=== PATIENT | male | born 1975 | race Caucasian/White ===

== ENCOUNTER 2017-05-12 21:43 | Emergency (ER) | payer MEDICARE, SELFPAY ==
[2017-05-12 21:44] VITALS: BP 155/71; PULSE 91; RESP 18; TEMP 36.6; O2SAT 96; BMI 40.3
[2017-05-12] MEDS: 0.9% Normal Saline 1,000 ML 1000 ML IV (23:04)
[2017-05-12] MEDS: Ondansetron 4 MG/2 ML Vial IV (23:04)
[2017-05-12] MEDS: Acetaminophen 325 MG Tablet 650 MG PO (23:27)
--- NOTE | 2017-05-12 23:41 | ED.VISSUMM ---
- ER Visit Summary Date of Service: 05/12/17 Chief Complaint: Abdominal pain with nausea, vomiting diarrhea that started yesterday History of Present Illness: The patient is a 41 M who presents with abdominal pain with nausea, vomiting diarrhea. He reports 4 episodes of vomiting since last evening and 5 loose watery stools. He denies blood or mucus in the stool. He denies hematemesis, melena hematochezia. He states every family members ill with viral-like symptoms. Denies fever or chills. He denies any ocular, visual auditory symptoms. He denies rhinorrhea, postnasal drainage, earache or sore throat. He denies chest pain or palpitations. Denies shortness of breath, dyspnea on exertion, orthopnea or PND. He does complain of abdominal pain with vomiting diarrhea. He is presently pain-free. He lies any skin lesions. He denies myalgias arthralgias. Physical Examination: Vital signs remarkable elevated blood pressure 155/71. Head is atraumatic normocephalic. Pupils are equal round reactive. Extraocular muscles are intact. TMs are pearly white with landmarks noted. Nares patent with no drainage. Posterior pharynx without erythema or exudate. Uvula is midline. Tongue and buccal mucosa are dry. There is no dysphonia or dysphasia. Trachea is midline. There is no stridor with auscultation of the neck. Heart is regular without murmur, gallop or rub. S1 and S2 are normal. Lungs are clear to auscultation with good movement of air bilaterally. Abdomen is prominent with out tenderness. Bowel sounds are present. There is no pain, guarding or perineal findings. There is no CVA tenderness noted. There are no skin lesions and specifically lower extremity. He is alert oriented with a nonfocal neurologic exam. Test Results: None were obtained or indicated Emergency Department Course and Treatment: He was established received 1 L of normal saline wide open and was treated with 4 mg of Zofran. I was informed by nurse that he complains of headache. He was given 650 mg of Tylenol p.o. He will be observed and he has no further vomiting or diarrhea be discharged to home Treatment Plan: Patient passed p.o. challenge will be discharged to home. He was given a work excuse to indicate that he arrived at 2100 on May 12 and discharged at 0100 on 2019. Disposition: Discharged to home Impression: 1. Abdominal pain with nausea, vomiting diarrhea 2. Mild dehydration This note was generated with [employer] dictation software. It may contain incorrect words, spelling, and punctuation that were not noted in review of the chart prior to signing ED Disposition - Plan for ED Patient: Disposition: Home or Assisted Living Chief Complaint: General Illness Instructions: ED Vomiting Diarrhea Nonspecific Ad Referrals: Care Physician,No Primary [Primary Care Provider] - Yovana Choudhury DO [STAFF PHYSICIAN] - 3-5 Days if not improving
[2017-05-12 23:43] VITALS: RESP 16
[2017-05-13] MEDS: Ondansetron ODT 4 MG Tablet PO (00:40)
[2017-05-13 00:43] VITALS: BP 143/48; PULSE 69; RESP 16; O2SAT 96
== END 2017-05-13 00:43 | disposition home or self-care (01) ==
PROVIDERS: Emergency Provider Emergency Medicine
DX: R10.9 Unspecified abdominal pain (principal); R11.2 Nausea with vomiting, unspecified; R19.7 Diarrhea, unspecified; E86.0 Dehydration; R53.1 Weakness; F32.9 Major depressive disorder, single episode, unspecified
CPT/HCPCS: 96361; 96374; 99284; J7030; A4216; J2405

== ENCOUNTER 2017-05-26 09:39 | Emergency (ER) | payer MEDICARE, MEDICAID, SELFPAY ==
[2017-05-26 09:40] VITALS: BP 162/108; PULSE 80; RESP 18; TEMP 36.1; O2SAT 98; BMI 37.7
--- NOTE | 2017-05-26 09:59 | ED.DCSUM_ITS ---
- ER Visit Summary Date of Service: 05/26/17 Chief Complaint: Dental pain History of Present Illness: The patient is a 42 M presenting with dental pain that started last night. He complains of pain in his left lower teeth with swelling. He denies fever. He states he does not currently have a dentist. Denies other complaints. Physical Examination: Vitals are stable. Patient is afebrile. Alert no acute distress. HEENT exam left lower molar tenderness with diffuse decay. No surrounding fluctuance. No sublingual edema. Neck is supple. Lungs are clear and equal bilaterally. Heart is regular rate and rhythm. Extremities are unremarkable. Skin is warm and dry. Remainder of exam is unremarkable. Emergency Department Course and Treatment: Patient is given penicillin and Naprosyn. Advised to follow-up with a dentist. Advised to return to ED for worsening complaints. Disposition: Discharge home Impression: Odontalgia This note was generated with [employer] dictation software. It may contain incorrect words, spelling, and punctuation that were not noted in review of the chart prior to signing ED Disposition - Plan for ED Patient: Chief Complaint: Dental Referrals: Care Physician,No Primary [Primary Care Provider] -
--- NOTE | 2017-05-26 09:59 | ED.DEP ---
ED Disposition - Plan for ED Patient: Chief Complaint: Dental Instructions: ED Tooth Pain Prescriptions: Naproxen [Naprosyn] 500 mg PO BID PRN #20 tablet Penicillin V Potassium 500 mg PO 4X/DAY #40 tablet Referrals: Care Physician,No Primary [Primary Care Provider] - Leslie Chavez [NON-STAFF] -
[2017-05-26] MEDS: Naproxen 500 MG Tablet PO (10:03)
[2017-05-26] MEDS: Penicillin Vk 250 MG Tablet 500 MG PO (10:03)
== END 2017-05-26 10:10 | disposition home or self-care (01) ==
LOC: ED 10:05
PROVIDERS: Emergency Provider Emergency Medicine
DX: K08.89 Other specified disorders of teeth and supporting structures (principal); F32.9 Major depressive disorder, single episode, unspecified
CPT/HCPCS: 99282

== ENCOUNTER 2017-06-05 02:41 | Emergency (ER) | payer MEDICARE, SELFPAY ==
[2017-06-05 02:41] VITALS: BP 145/80; PULSE 74; RESP 17; TEMP 36.7; O2SAT 95; BMI 41.2
--- NOTE | 2017-06-05 03:26 | ED.DCSUM_ITS ---
- ER Visit Summary Date of Service: 06/05/17 Chief Complaint: Left ear pain History of Present Illness: The patient is a 42 M presenting with left ear pain ?2-3 days. He states he has had decreased hearing and pain in his left ear. He denies fever. No pain of his right ear. No other complaints. He states he has a new primary care physician and has an appointment next month. Physical Examination: Vitals are stable. Patient is afebrile. Alert no acute distress. HEENT exam left TM erythema and bulging. right TM is normal Neck is supple. Lungs are clear and equal bilaterally. Heart is regular rate and rhythm. Abdomen is soft nontender nondistended. Extremities are unremarkable. Skin is warm and dry. Emergency Department Course and Treatment: Patient is given amoxicillin. Advised to follow-up with PCP. Advised return to ED if worsening complaints. Disposition: Discharge home Impression: Left otitis media This note was generated with [employer] dictation software. It may contain incorrect words, spelling, and punctuation that were not noted in review of the chart prior to signing ED Disposition - Plan for ED Patient: Chief Complaint: Ear Problem Referrals: Care Physician,No Primary [Primary Care Provider] -
--- NOTE | 2017-06-05 03:26 | ED.DEP ---
ED Disposition - Plan for ED Patient: Chief Complaint: Ear Problem Instructions: ED Otitis Media Acute Adult Prescriptions: Guaifenesin/Pseudoephedrne HCl [Mucinex D ER 1,200-120 mg Tab] 1 each PO BID PRN PRN #10 tab.er.12h PRN Reason: Congestion Amoxicillin 500 mg PO TID #30 tablet
[2017-06-05] MEDS: AMOXICILLIN 500 MG CAPSULE PO (03:34)
--- NOTE | 2017-06-05 03:34 | ED.RN ---
DISCHARGE INSTRUCTIONS GIVEN TO AND REVIEWED WITH PATIENT, PATIENT DENIES QUESTIONS OR CONCERNS AND VOICES UNDERSTANDING OF DISCHARGE INSTRUCTIONS. PT AMBULATES OUT OF ROOM WITHOUT DIFFICULTY.
== END 2017-06-05 03:35 | disposition home or self-care (01) ==
LOC: ED 03:31
PROVIDERS: Emergency Provider Emergency Medicine
DX: H66.92 Otitis media, unspecified, left ear (principal)
CPT/HCPCS: 99283

== ENCOUNTER 2017-06-25 20:11 | Emergency (ER) | payer MEDICARE, SELFPAY ==
[2017-06-25 20:12] VITALS: BP 146/85; PULSE 98; RESP 17; TEMP 36.2; O2SAT 98; BMI 41.5
--- NOTE | 2017-06-25 20:36 | CT_ITS ---
CT Abdomen And Pelvis W/O Contrast INDICATION: ABD PAIN, HX DIVERTICULITIS, APPY, HTN, CVA, MT, COLON RESECTION DUE TO DIVERTICULITIS COMPARISON: None TECHNIQUE: Axial CT imaging of the abdomen and pelvis without contrast. Coronal and sagittal reformatted images. Radiation dose optimization technique applied. FINDINGS: Visualized lung bases are clear. The heart size is normal. The liver, gallbladder, spleen, adrenal glands, and pancreas demonstrate grossly unremarkable noncontrast CT appearance. The kidneys are without evidence of nephrolithiasis or hydronephrosis. Urinary bladder appears within normal limits. The bowel loops are nondistended. The appendix is not seen. There is scattered sigmoid diverticulosis without evidence of acute diverticulitis. A suture is seen at the distal sigmoid level, compatible with prior surgery. No evidence of free air or free fluid. Bilateral fat-containing inguinal hernias are noted, right larger than left. The osseous structures are age-appropriate. CT/Abdomen/Pelvis without Cont IMPRESSION: Postsurgical changes at the distal sigmoid level with some residual sigmoid diverticuli, no evidence of acute diverticulitis. No evidence of severe lithiasis or hydronephrosis. Status post appendectomy. at 2228 Reported and signed by: Rut Costello MD Electronically Signed: Rut Costello MD at 21:26 EDT Tel , Service support ,
[2017-06-25] MEDS: Ketorolac 30 MG/ML Syringe IV (20:48)
[2017-06-25 20:57] LABS: Absolute Lymphocyte Count 4.49 X10^3/ul (0.83-4.51); Absolute Neutrophil Count 7.3 X10^3/uL (2.0-7.7); Basophil# 0.06 X10^3/uL; Basophil% 0.5 % (0-1); Eosinophil# 0.41 X10^3/uL; Eosinophils% 3.1 % (0-5); Hematocrit 37.8 % (40-54); Hemoglobin 13.1 g/dl (13.0-16.5); Lymphocyte # 4.49 X10^3/ul (4.0); Mean Corp Hgb Conc 34.7 g/gl (32-36); Mean Corpuscular Hgb 27.8 pg (27.0-32.0); Mean Corpuscular Volume 80.3 fL (80-94); Mean Platelet Vol. 9.5 fl (6.2-12.0); Monocyte# 0.91 X10^3/uL; Monocyte% 6.9 % (0-10); Neutrophil % 55.3 % (47-70); Platelet Count 342 K/mm3 (150-450); RBC Distribution Width CV 13.8 % (11.6-14.6); RBC Distribution Width SD 39.8 fl (35.1-43.9); Red Blood Count 4.71 M/mm3 (4.6-6.2); White Blood Count 13.2 K/mm3 (4.4-11.0)
[2017-06-25 20:59] LABS: POSITIVE COUNT NO; POSITIVE DIFFERENTIAL NO; POSITIVE MORPHOLOGY NO
[2017-06-25 21:05] LABS: Anion Gap 7 (5-15); BUN 19 mg/dL (7-18); BUN/Creat Ratio 19.3 RATIO (10-20); Calcium,Total 8.5 mg/dL (8.5-10.1); Chloride 105 mmol/L (98-107); Creatinine, Serum 0.98 mg/dL (0.70-1.30); EST Glomerular Filtration Rate 90 mL/min (>60); Est Glom Filt Rate - Afr Amer 109 mL/min (>60); Estimated Creatinine Clearance 93.68 ml/min; Glucose 79 mg/dL (74-106); Potassium 3.9 mmol/L (3.5-5.1); Sodium Level 140 mmol/L (136-145)
--- NOTE | 2017-06-25 22:00 | ED.RN ---
dr huynh made aware that the pt is still having abdominal pain.
--- NOTE | 2017-06-25 22:36 | ED.VISSUMM ---
- ER Visit Summary Date of Service: 06/25/17 Chief Complaint: Abdominal pain History of Present Illness: The patient is a 42 M with a history of multiple ER visits for pain related complaints who presents with abdominal pain. He has a history of diverticulitis which required laparotomy and colon resection. He also has a history of appendectomy. He states that while at work today he was climbing a chain ladder when he felt a pulling and sudden onset pain in his mid abdomen underneath his surgical scar. He denies any fevers nausea vomiting or diarrhea. No recent illness he felt fine before the sudden onset of pain while climbing the ladder. He states he tried to go home. But his pain continued so he presented here. Physical Examination: Afebrile vitals are unremarkable Moist mucous membranes Heart regular rate and rhythm Lungs are clear Abdomen soft and nondistended Patient does have some mid abdominal pain which is focal above his umbilicus near his surgical scar I do not appreciate any hernia Test Results: CBC notable for white count 13.2. BMP normal. CT of the abdomen and pelvis was obtained which shows postsurgical changes and diverticulosis without any evidence of acute diverticulitis or acute process. Emergency Department Course and Treatment: Given the patient's abrupt onset of symptoms while climbing a ladder this is possible we related to scar tissue. He has a slight leukocytosis currently but normal CT the abdomen and no infectious symptoms and he felt fine before the event while climbing a ladder. He has normal vital signs and not have an exam consistent with peritonitis. I believe he can follow-up as an outpatient. He was instructed on supportive care. He understands to return for new or worsening symptoms. He was discharged. Treatment Plan: [] Disposition: Discharge Impression: Abdominal pain This note was generated with [employer] dictation software. It may contain incorrect words, spelling, and punctuation that were not noted in review of the chart prior to signing ED Disposition - Plan for ED Patient: Chief Complaint: Abd Pain Referrals: Care Physician,No Primary [Primary Care Provider] -
--- NOTE | 2017-06-25 22:40 | ED.DEP ---
ED Disposition - Plan for ED Patient: Chief Complaint: Abd Pain Instructions: ED Abdominal Pain Unkn Cause Male Referrals: Care Physician,No Primary [Primary Care Provider] -
[2017-06-25] MEDS: DiphenhydrAMINE 25 MG Capsule 50 MG PO (22:57)
[2017-06-25] MEDS: oxyCODONE 5 MG Tablet PO (22:57)
[2017-06-25 22:58] VITALS: PULSE 94; RESP 14; O2SAT 98
== END 2017-06-25 22:59 | disposition home or self-care (01) ==
PROVIDERS: Emergency Provider Emergency Medicine
DX: R10.9 Unspecified abdominal pain (principal); K57.90 Diverticulosis of intestine, part unspecified, without perforation or abscess without bleeding
CPT/HCPCS: 74176; 80048; 85025; 96374; 99284; A4216

== ENCOUNTER 2017-07-25 20:41 | Emergency (ER) | payer MEDICARE, MEDICAID, SELFPAY ==
[2017-07-25 20:42] VITALS: BP 161/65; PULSE 85; RESP 15; TEMP 36.7; BMI 41.4
--- NOTE | 2017-07-25 21:55 | RAD_ITS ---
STUDY: X-RAY - PELVIS AND RIGHT HIP REASON FOR EXAM: Male, 42 years old. Pain TECHNIQUE: Radiological exam, hip, unilateral, with pelvis when performed; 2 or 3 views. COMPARISON: None. FINDINGS: There is a non-specific bowel gas pattern. Normal visualized soft tissue structures. Normal bilateral iliac wings, sacroiliac joints and visualized sacrum. Normal bilateral superior and inferior pubic rami. Normal pubic symphysis. Normal bilateral ischial tuberosities. Normal visualized femoral head. Normal acetabulum. Normal hip joint. RAD/Hip 2-3 Views with Pelvis IMPRESSION: Normal x-ray examination of the pelvis and hip. Electronically Signed: Chang Downing, at 22:15 EDT Tel , Service support ,
--- NOTE | 2017-07-25 22:24 | ED.VISSUMM ---
- ER Visit Summary Date of Service: 07/25/17 Chief Complaint: Right hip pain History of Present Illness: The patient is a 42 M who presents with right hip pain. This is been present for at least a month. He states that he was bowling tonight and had sudden increased pain in his right hip radiating down his thigh. He has been able to bear weight. He denies paresthesias weakness or loss of function. He states he felt like his hip popped. Physical Examination: Afebrile vitals are stable Heart regular rate and rhythm Lungs clear Active full range of motion of the right lower extremity normal sensation 5 out of 5 dorsiflexion, plantarflexion, extensor hallucis longus he does have pain with range of motion of the right hip Test Results: Hip x-ray is normal Emergency Department Course and Treatment: Patient was advised on supportive care including ibuprofen or Aleve rest and ice. He understands return for new or worsening symptoms. He was discharged. Treatment Plan: [] Disposition: Discharge Impression: Right hip pain This note was generated with [employer] dictation software. It may contain incorrect words, spelling, and punctuation that were not noted in review of the chart prior to signing ED Disposition - Plan for ED Patient: Chief Complaint: Lower Extremity Injury Referrals: Care Physician,No Primary [Primary Care Provider] -
--- NOTE | 2017-07-25 22:27 | ED.DEP ---
ED Disposition - Plan for ED Patient: Chief Complaint: Lower Extremity Injury Instructions: ED Sprain Hip Referrals: Care Physician,No Primary [Primary Care Provider] -
[2017-07-25 22:34] VITALS: BP 158/60; PULSE 78; RESP 16; O2SAT 98
[2017-07-25] MEDS: Naproxen 250 MG Tablet 500 MG PO (22:36)
== END 2017-07-25 22:38 | disposition home or self-care (01) ==
PROVIDERS: Emergency Provider Emergency Medicine
DX: M25.551 Pain in right hip (principal); F32.9 Major depressive disorder, single episode, unspecified
CPT/HCPCS: 73502; 99281

== ENCOUNTER 2017-08-24 00:12 | Emergency (ER) | payer MEDICARE, MEDICAID, SELFPAY ==
[2017-08-24 00:13] VITALS: BP 135/67; PULSE 69; RESP 18; TEMP 36.6; O2SAT 96; BMI 45.4
--- NOTE | 2017-08-24 00:41 | CT_ITS ---
STUDY: CT ABDOMEN AND PELVIS WITHOUT CONTRAST REASON FOR EXAM: Male, 42 years old. Right lower quadrant pain. History of appendectomy and partial colectomy. RADIATION DOSAGE (If Supplied By Facility): CTDIvol = ( 24.18 ) mGy, DLP = ( 1383.36 ) mGycm TECHNIQUE: Transaxial images were obtained from the dome of the diaphragm to the symphysis pubis with oral contrast, and without intravenous contrast. Sagittal and coronal images were reconstructed. Individualized dose optimization techniques were used for this CT. COMPARISON: June 25, 2017. FINDINGS: The visualized lung bases are unremarkable. The visualized portions of the heart are within normal limits. Normal liver. Normal gallbladder and extrahepatic biliary system. Normal spleen. Normal pancreas. Normal bilateral adrenal glands. Normal right kidney. Normal left kidney. Normal visualized stomach. Normal small intestine. Suture line at the level of the mid sigmoid colon. Minimal colonic diverticulosis. The appendix nonvisualized compatible with history of appendectomy. Normal abdominal aorta. Normal inferior vena cava. Normal retroperitoneum. No intra-abdominal free air. Normal urinary bladder. Prostate gland is not enlarged. Normal abdominal wall. Normal osseous structures. CT/Abdomen/Pel W ORAL Cont Only IMPRESSION: No acute findings in the abdomen or pelvis. No evidence of bowel obstruction. Status post appendectomy. Electronically Signed: Christ Carbajal MD at 3:43 EDT , Service support ,
[2017-08-24] MEDS: proMETHazine 25 MG/ML Syringe 6.25 MG IV (01:08)
[2017-08-24] MEDS: Morphine 4 MG/ML Syringe IV ×2 (01:08→03:38)
[2017-08-24] MEDS: 0.9% Normal Saline 1,000 ML 1000 ML IV (01:08)
[2017-08-24 01:25] LABS: Absolute Lymphocyte Count 4.09 X10^3/ul (0.83-4.51); Basophil# 0.05 X10^3/uL; Basophil% 0.4 % (0-1); Eosinophil# 0.34 X10^3/uL; Hematocrit 38.8 % (40-54); Hemoglobin 13.2 g/dl (13.0-16.5); Lymphocyte # 4.09 X10^3/ul (4.0); Lymphocyte % 36.6 % (19-41); Mean Corpuscular Hgb 27.7 pg (27.0-32.0); Mean Corpuscular Volume 81.5 fL (80-94); Mean Platelet Vol. 9.6 fl (6.2-12.0); Monocyte# 0.63 X10^3/uL; Monocyte% 5.6 % (0-10); Neutrophil # 6.03 X10^3/uL (2.7-7.7); Neutrophil % 54.2 % (47-70); Platelet Count 340 K/mm3 (150-450); RBC Distribution Width CV 13.6 % (11.6-14.6); RBC Distribution Width SD 39.6 fl (35.1-43.9); Red Blood Count 4.76 M/mm3 (4.6-6.2); White Blood Count 11.2 K/mm3 (4.4-11.0)
[2017-08-24 01:28] LABS: POSITIVE COUNT NO; POSITIVE DIFFERENTIAL NO; POSITIVE MORPHOLOGY NO
[2017-08-24 01:48] LABS: BUN 20 mg/dL (7-18); Creatinine, Serum 1.05 mg/dL (0.70-1.30); Estimated Creatinine Clearance 81.35 ml/min; Glucose 92 mg/dL (74-106)
[2017-08-24 01:49] LABS: AST(SGOT) 16 U/L (15-37); Alanine Aminotransfer ALT/SGPT 28 U/L (16-61); Albumin, Serum 3.5 g/dL (3.2-5.0); Alkaline Phosphatase 116 U/L (45-117); Anion Gap 7 (5-15); Bilirubin, Direct 0.05 mg/dL (0.00-0.30); Calcium,Total 8.1 mg/dL (8.5-10.1); Chloride 108 mmol/L (98-107); EST Glomerular Filtration Rate 83 mL/min (>60); Est Glom Filt Rate - Afr Amer 101 mL/min (>60); Globulin 3.9 g/dL (2.2-4.2); Lipase 86 U/L (73-393); Potassium 3.9 mmol/L (3.5-5.1); Protein, Total 7.4 g/dL (6.4-8.2); Sodium Level 140 mmol/L (136-145)
[2017-08-24 01:51] LABS: Lactic Acid 1.1 mmol/L (0.4-2.0)
[2017-08-24 02:47] VITALS: BP 134/71; PULSE 94; RESP 18; O2SAT 99
--- NOTE | 2017-08-24 03:49 | ED.DCSUM_ITS ---
- ER Visit Summary Date of Service: 08/24/17 Chief Complaint: [] Abdominal pain. History of Present Illness: The patient is a 42 M [] complaining of right lower quadrant abdominal pain. Reports nausea denies vomiting. Reports pain after defecation. Past surgical history of appendectomy and colectomy. Denies fevers. No other complaints at this time. Physical Examination: [] Afebrile, vital signs stable. Three-vessel exam is regular rate and rhythm. Lungs are clear auscultation. Abdomen was soft with mild right upper and right lower quadrant tenderness. There is voluntary guarding. There was an inconsistent physical exam with significant tenderness on palpation however with the stethoscope the patient had a minimal response in the same affected area. Test Results: [] CBC, BMP, LFTs, lipase, lactic acid all within normal limits. CT of the abdomen and pelvis with p.o. contrast was negative. Emergency Department Course and Treatment: [] Patient was given repeat doses of morphine, single dose of Phenergan, normal saline bolus on serial exam had improvement of symptoms. He was discharged to follow-up with his primary care physician. Treatment Plan: [] Follow-up with PCP. Disposition: [] Discharge, stable. Impression: [] Abdominal pain, unknown etiology This note was generated with [employer] dictation software. It may contain incorrect words, spelling, and punctuation that were not noted in review of the chart prior to signing ED Disposition - Plan for ED Patient: Chief Complaint: Abd Pain Referrals: Care Physician,No Primary [Primary Care Provider] -
--- NOTE | 2017-08-24 03:49 | ED.DEP ---
ED Disposition - Plan for ED Patient: Disposition: Home or Assisted Living Chief Complaint: Abd Pain Instructions: ED Abdominal Pain Unkn Cause Referrals: Care Physician,No Primary [Primary Care Provider] -
[2017-08-24 04:09] VITALS: BP 134/76; PULSE 78; RESP 16; O2SAT 95
== END 2017-08-24 04:10 | disposition home or self-care (01) ==
PROVIDERS: Emergency Provider Emergency Medicine
DX: R10.31 Right lower quadrant pain (principal); R11.0 Nausea; R10.811 Right upper quadrant abdominal tenderness; Z90.89 Acquired absence of other organs; Z90.49 Acquired absence of other specified parts of digestive tract; Z87.19 Personal history of other diseases of the digestive system; Z79.899 Other long term (current) drug therapy
CPT/HCPCS: 74176; 80048; 80076; 83605; 83690; 85025; 96361; 96374; 96375; 96376; 99283; J7030

== ENCOUNTER 2017-11-26 12:32 | Emergency (ER) | payer MEDICARE, MEDICAID, SELFPAY ==
[2017-11-26 12:33] VITALS: BP 144/85; PULSE 95; RESP 18; TEMP 37.6; O2SAT 95; BMI 39.8
[2017-11-26 13:26] LABS: Absolute Lymphocyte Count 3.86 X10^3/ul (0.83-4.51); Absolute Neutrophil Count 5.2 X10^3/uL (2.0-7.7); Basophil# 0.03 X10^3/uL; Basophil% 0.3 % (0-1); Eosinophil# 0.29 X10^3/uL; Eosinophils% 2.9 % (0-5); Hematocrit 40.1 % (40-54); Hemoglobin 13.2 g/dl (13.0-16.5); Lymphocyte # 3.86 X10^3/ul (4.0); Lymphocyte % 38.8 % (19-41); Mean Corp Hgb Conc 32.9 g/gl (32-36); Mean Corpuscular Hgb 26.7 pg (27.0-32.0); Mean Platelet Vol. 9.6 fl (6.2-12.0); Monocyte# 0.55 X10^3/uL; Monocyte% 5.5 % (0-10); Neutrophil # 5.21 X10^3/uL (2.7-7.7); Neutrophil % 52.4 % (47-70); Platelet Count 296 K/mm3 (150-450); Red Blood Count 4.95 M/mm3 (4.6-6.2)
[2017-11-26 13:27] LABS: POSITIVE COUNT NO; POSITIVE DIFFERENTIAL NO; POSITIVE MORPHOLOGY NO
[2017-11-26] MEDS: Dicyclomine 20 MG/2 ML Vial IM (13:29)
[2017-11-26] MEDS: Mag Hydrox/Al Hydrox/Simeth 30 ML UDC PO (13:31)
[2017-11-26 13:39] LABS: AST(SGOT) 34 U/L (15-37); Alanine Aminotransfer ALT/SGPT 37 U/L (16-61); Albumin, Serum 3.4 g/dL (3.2-5.0); Alkaline Phosphatase 105 U/L (45-117); Bilirubin, Direct < 0.05 mg/dL (0.00-0.30); Globulin 4.1 g/dL (2.2-4.2); Lipase 106 U/L (73-393); Protein, Total 7.5 g/dL (6.4-8.2)
[2017-11-26 14:41] VITALS: BP 132/6; PULSE 81; RESP 15; O2SAT 97
--- NOTE | 2017-11-26 15:32 | ED.VISSUMM ---
- ER Visit Summary Date of Service: 11/26/17 Chief Complaint: Upper quadrant pain after eating at [employer] History of Present Illness: The patient is a 42 M who was recently admitted [facility] and told that his gallbladder ejection fraction was low. Patient reports pain radiating through the back and nausea without vomiting. He denies fever, chills night sweats. He denies any HEENT, cardiac, respiratory or symptoms. He states he was admitted to [facility] had a significant workup which included an EGD, colonoscopy and HIDA scan since his gallbladder ultrasound was negative. The gallbladder ejection fraction was 28% which is low. Physical Examination: Patient appears uncomfortable. Vital signs were noted. Blood pressure is slightly elevated at 144/85. He is afebrile. Head is atraumatic normocephalic. Pupils are equal round reactive. Extraocular muscles are intact. TMs are pearly white with landmarks noted. Nares patent with no drainage. Posterior pharynx without erythema or exudate. Uvula is midline. There is no dysphonia or dysphasia. Trachea is midline. There is no stridor with auscultation of the neck. Heart is regular without murmur, gallop or rub. S1 and S2 are normal. Lungs are clear to auscultation with good movement of air bilaterally. Abdomen is remarkable tenderness in the right upper quadrant. Test Results: CBC, hepatic and lipase are normal today. Labs from most recent visit at [facility] were faxed and reviewed. Report of EGD, colonoscopy and HIDA scan were not. Emergency Department Course and Treatment: Patient was medicated. He was reassessed. He was in informed to keep appointment with Dr. Cotton. He was informed he should not consume anything greasy fried or rich. Treatment Plan: Appropriate home-going instructions for gallbladder disease Disposition: Discharge to home with outpatient follow-up Impression: Right upper quadrant pain secondary to dysfunctional gallbladder This note was generated with [employer] dictation software. It may contain incorrect words, spelling, and punctuation that were not noted in review of the chart prior to signing ED Disposition - Plan for ED Patient: Disposition: Home or Assisted Living Chief Complaint: Abd Pain Instructions: ED Abdominal Pain Gallstone Poss Referrals: Fidencio Vega NP-Matt [Primary Care Provider] - Jason Andersen MD [STAFF PHYSICIAN] - Keep [facility] appointment Additional Instructions: Do not eat any greasy or fried foods and avoid rich foods until seen by Dr. Andersen.
[2017-11-26 15:43] VITALS: BP 137/68; PULSE 52; RESP 16; TEMP 36.9; O2SAT 97
== END 2017-11-26 15:45 | disposition home or self-care (01) ==
PROVIDERS: Emergency Provider Emergency Medicine; Family Provider Nurse Practitioner Primary Care; PCP Nurse Practitioner Primary Care
DX: K82.8 Other specified diseases of gallbladder (principal); E66.9 Obesity, unspecified; Z68.39 Body mass index [BMI] 39.0-39.9, adult; Z72.0 Tobacco use
CPT/HCPCS: 80076; 83690; 85025; 96372; 99284; A4216

== ENCOUNTER 2018-01-09 16:27 | Emergency (ER) | payer MEDICARE, MEDICAID, SELFPAY ==
[2018-01-09 16:28] VITALS: BP 149/89; PULSE 98; RESP 18; TEMP 36.3; O2SAT 98; BMI 39.1
[2018-01-09 17:16] LABS: Absolute Lymphocyte Count 3.36 X10^3/ul (0.83-4.51); Absolute Neutrophil Count 4.7 X10^3/uL (2.0-7.7); Basophil# 0.04 X10^3/uL; Basophil% 0.4 % (0-1); Eosinophil# 0.37 X10^3/uL; Hematocrit 40.4 % (40-54); Hemoglobin 13.1 g/dl (13.0-16.5); Lymphocyte # 3.36 X10^3/ul (4.0); Lymphocyte % 36.4 % (19-41); Mean Corp Hgb Conc 32.4 g/gl (32-36); Mean Corpuscular Hgb 26.7 pg (27.0-32.0); Mean Corpuscular Volume 82.4 fL (80-94); Mean Platelet Vol. 9.1 fl (6.2-12.0); Monocyte# 0.79 X10^3/uL; Monocyte% 8.5 % (0-10); Neutrophil # 4.67 X10^3/uL (2.7-7.7); Neutrophil % 50.6 % (47-70); POSITIVE COUNT NO; POSITIVE DIFFERENTIAL NO; POSITIVE MORPHOLOGY NO; Platelet Count 378 K/mm3 (150-450); RBC Distribution Width CV 13.8 % (11.6-14.6); RBC Distribution Width SD 41.5 fl (35.1-43.9); White Blood Count 9.2 K/mm3 (4.4-11.0)
[2018-01-09 17:30] LABS: Anion Gap 8 (5-15); BUN 20 mg/dL (7-18); BUN/Creat Ratio 21.5 RATIO (10-20); Calcium,Total 9.1 mg/dL (8.5-10.1); Chloride 101 mmol/L (98-107); Creatinine, Serum 0.93 mg/dL (0.70-1.30); EST Glomerular Filtration Rate 95 mL/min (>60); Est Glom Filt Rate - Afr Amer 115 mL/min (>60); Estimated Creatinine Clearance 91.85 ml/min; Glucose 86 mg/dL (74-106); Potassium 4.1 mmol/L (3.5-5.1); Sodium Level 138 mmol/L (136-145)
[2018-01-09 17:42] VITALS: BP 127/75; PULSE 88; RESP 16; O2SAT 95
--- NOTE | 2018-01-09 17:45 | ED.VISSUMM ---
- ER Visit Summary Date of Service: 01/09/18 Chief Complaint: Facial infection History of Present Illness: The patient is a 42 M who presents with a facial infection. He states 4-5 days ago he began to have pain in his left upper teeth. He was seen at [facility] emergency department and then later that day saw a dentist. He was told that he needed his teeth pulled but would be more than $9000 and he could not afford this. He then returned to [facility] emergency department and had blood work and a CAT scan. He was told that he had a bloodstream infection. He was transferred to [facility]. The patient reports that once seen there the oral surgeon stated that he did not know why the patient been sent there because the OR was closed. The patient claims that none of his questions regarding other treatment options or outpatient follow-up were answered and that after 2-3 days he was just discharged on clindamycin to follow-up with his primary care physician. He states he does not remember who the oral surgeon was but that he was not told to follow-up as an outpatient. He is taking clindamycin. He complains of ongoing nausea and subjective fevers but has not checked temperature at home. No vomiting. No other complaints. Physical Examination: Afebrile vitals are normal Patient is clinically well-appearing Patient does have some left-sided facial swelling he has widespread dental decay he does not have a focal dental abscess amenable to incision and drainage here in the he denies any trismus he has a clear voice Heart regular rate and rhythm Lungs clear Abdomen soft Alert Test Results: CBC normal BMP normal. Emergency Department Course and Treatment: Patient was treated with IV Unasyn. We have attempted to obtain records from [facility] including the H&P, discharge summary, consults. I have not received any of these documents. However the patient has normal vitals here no fever no leukocytosis. I do believe as dental infection but he does not have an abscess that I would be able to incise and drain here. I stressed the importance of follow-up with a dentist or oral surgeon. He was given the contact information both for the [facility] clinic and an oral surgeon. We will also switch him from clindamycin to Augmentin. He understands to return for new or worsening symptoms. He was instructed on specific signs and symptoms to monitor for, conditions which should prompt return to the emergency department for reevaluation. Patient discharged. Treatment Plan: [] Disposition: Discharge Impression: Dental infection This note was generated with [employer] dictation software. It may contain incorrect words, spelling, and punctuation that were not noted in review of the chart prior to signing ED Disposition - Plan for ED Patient: Chief Complaint: Cellulitis Referrals: Fidencio Vega NP-C [Primary Care Provider] -
--- NOTE | 2018-01-09 17:50 | ED.DCSUM_ITS ---
- ER Visit Summary Date of Service: 01/09/18 Chief Complaint: Facial infection History of Present Illness: The patient is a 42 M who presents with a facial infection. He states 4-5 days ago he began to have pain in his left upper teeth. He was seen at [place] emergency department and then later that day saw a dentist. He was told that he needed his teeth pulled but would be more than $9000 and he could not afford this. He then returned to [facility] [place] emergency department and had blood work and a CAT scan. He was told that he had a bloodstream infection. He was transferred to [facility]. The patient reports that once seen there the oral surgeon stated that he did not know why the patient been sent there because the OR was closed. The patient claims that none of his questions regarding other treatment options or outpatient follow-up were answered and that after 2-3 days he was just discharged on clindamycin to follow-up with his primary care physician. He states he does not remember who the oral surgeon was but that he was not told to follow-up as an outpatient. He is taking clindamycin. He complains of ongoing nausea and subjective fevers but has not checked temperature at home. No vomiting. No other complaints. Physical Examination: Afebrile vitals are normal Patient is clinically well-appearing Patient does have some left-sided facial swelling he has widespread dental decay he does not have a focal dental abscess amenable to incision and drainage here in the he denies any trismus he has a clear voice Heart regular rate and rhythm Lungs clear Abdomen soft Alert Test Results: CBC normal BMP normal. Emergency Department Course and Treatment: Patient was treated with IV Unasyn. We have attempted to obtain records from [facility] including the H&P, discharge summary, consults. I have not received any of these documents. However the patient has normal vitals here no fever no leukocytosis. I do believe as dental infection but he does not have an abscess that I would be able to incise and drain here. I stressed the importance of follow-up with a dentist or oral surgeon. He was given the contact information both for the [facility] clinic and an oral surgeon. We will also switch him from clindamycin to Augmentin. He understands to return for new or worsening symptoms. He was instructed on specific signs and symptoms to monitor for, conditions which should prompt retu rn to the emergency department for reevaluation. Patient discharged. Treatment Plan: [] Disposition: Discharge Impression: Dental infection This note was generated with [employer] dictation software. It may contain incorrect words, spelling, and punctuation that were not noted in review of the chart prior to signing ED Disposition - Plan for ED Patient: Chief Complaint: Cellulitis Referrals: Fidencio Vega NP-C [Primary Care Provider] -
--- NOTE | 2018-01-09 17:51 | ED.DEP ---
ED Disposition - Plan for ED Patient: Chief Complaint: Cellulitis Instructions: ED Abscess Dental Prescriptions: Amox/Clavulanate Tablet [Augmentin Tablet] 875 mg PO Q12H #20 tab Referrals: Fidencio Vega NP-C [Primary Care Provider] - Leslie Chavez [NON-STAFF] - Tadeo Bolden DDS [STAFF PHYSICIAN] -
== END 2018-01-09 18:03 | disposition home or self-care (01) ==
PROVIDERS: Emergency Provider Emergency Medicine; Family Provider Nurse Practitioner Primary Care; PCP Nurse Practitioner Primary Care
DX: K04.7 Periapical abscess without sinus (principal); K02.9 Dental caries, unspecified
CPT/HCPCS: 80048; 85025; 96365; 99283; A4216; J0295

== ENCOUNTER 2018-11-21 22:04 | Emergency (ER) | payer MEDICARE, SELFPAY ==
[2018-11-21 22:04] VITALS: BP 138/94; PULSE 88; RESP 18; TEMP 36.7; O2SAT 98; BMI 40.1
--- NOTE | 2018-11-21 22:19 | CM.ED ---
SOCIAL WORK INFORMANT: NURSEPINEDA REASON FOR REFERRAL: INFORMATION ON ADVANCED DIRECTIVES MET WITH PATIENT IN ROOM. INTRODUCED ROLE. PROVIDED PATIENT WITH INFORMATION ON ADVANCED DIRECTIVES AND RACK CARD. NO FURTHER NEEDS AT THIS TIME. DALE CABRERA, SALVAGE ENGINEERING TECHNICIAN, [employer].
--- NOTE | 2018-11-21 22:32 | CT_ITS ---
STUDY: CT ABDOMEN AND PELVIS WITHOUT CONTRAST REASON FOR EXAM: Male, 43 years old. Left upper quadrant pain. History of diverticulitis with bowel resection. RADIATION DOSAGE (If Supplied By Facility): CTDIvol = ( 22.04 ) mGy, DLP = ( 1399.85 ) mGycm TECHNIQUE: Transaxial images were obtained from the dome of the diaphragm to the symphysis pubis without oral contrast, and without intravenous contrast. Sagittal and coronal images were reconstructed. Individualized dose optimization techniques were used for this CT. COMPARISON: August 24, 2017. FINDINGS: The visualized lung bases are unremarkable. The visualized portions of the heart are within normal limits. Normal liver. Gallbladder is now not visualized suggestive of cholecystectomy. Normal spleen. Normal pancreas. Normal bilateral adrenal glands. Normal right kidney. Normal left kidney. Normal visualized stomach. Normal small intestine. Suture line distal sigmoid colon. Colon is otherwise unremarkable. There is non-visualization of the appendix compatible with appendectomy as per prior report. Normal abdominal aorta. Normal inferior vena cava. Normal retroperitoneum. No intra-abdominal free air. Normal urinary bladder. Normal visualized prostate gland. Small right inguinal hernia containing fat. Normal osseous structures. CT/Abdomen/Pelvis W IV Cont ONLY IMPRESSION: No acute findings in the abdomen or pelvis. No intra-abdominal free air or free fluid collections. Electronically Signed: Christ Carbajal MD at 1:11 EDT , Service support ,
--- NOTE | 2018-11-21 22:48 | ED.VIS.GEN ---
History of Present Illness Chief Complaint: Abd Pain Informant: Patient Onset: Yesterday Context: Sudden Onset Timing: Continuous Current Severity: Moderate Maximum Severity: Severe Narrative: The patient presents to the emergency department with left upper and lower quadrant abdominal pain. He states his symptoms began yesterday. He describes a sharp stabbing pain. He is been nauseated without vomiting. Is worse when he moves. He states he has had similar symptoms before when he had diverticulitis. The patient has history of partial colectomy, appendectomy, and cholecystectomy. He does not think he had fever. His major complaint is pain. He did move his bowels normally. He denies any bloody emesis. Prior similar symptoms: Yes Recent Illness/Hospitalization: No Past Medical History - Allergies and Home Meds Allergies/Adverse Reactions: Allergies acetaminophen [From Vicodin] Allergy (Verified 11/21/18 22:06) Rash codeine Allergy (Verified 11/21/18 22:06) Anaphylaxis hydrocodone bitartrate [From Vicodin] Allergy (Verified 11/21/18 22:06) Rash latex Allergy (Verified 11/21/18 22:06) Swelling ondansetron [From Zofran (as hydrochloride)] Adverse Reaction (Verified 11/21/18 22:06) Nausea Primary Care Physician: Fidencio Vega NP-C [Primary Care Provider] - Prior records reviewed: Yes Past Medical History: - Surgical History: adenoidectomy, tonsillectomy Smoking Status: Never smoker - Family History Maternal Family History: Reports: No pertinent history Review of Systems General: Denies: Chills, Fever, Sweats Eyes: Denies: Visual changes - bilaterally, Diplopia ENT: Denies: Rhinorrhea, Sore throat Cardiovascular: Denies: Chest pain, Palpitations Respiratory: Denies: Dyspnea, Cough, Dyspnea on exertion Gastrointestinal: Reports: Abdominal pain, Nausea. Denies: Vomiting, Diarrhea, Melena, Hematochezia Genitourinary: Denies: Dysuria, Hematuria, Frequency Musculoskeletal: Denies: Back pain, Extremity Pain Skin: Denies: Rash, Wounds Neurological: Denies: Headache, Weakness, Numbness Physical Exam Vital Signs/Narrative: Vital Signs Temp Pulse Resp BP Pulse Ox 11/21/18 22:04 98.1 F 88 18 138/94 H 98 Inital Vital Signs reviewed: Yes General: Well nourished, Well developed, No Acute Distress Head: Normocephalic, Atraumatic Eyes: Perrl, EOMI ENT: Moist mucous membranes, No rhinorrhea Neck: Supple, Nontender Cardiovascular: Regular rate, Regular rhythm, No murmurs Respiratory: No distress, CTA bilaterally, Chest nontender Abdomen: Soft, Nondistended, Normal bowel sounds, Tender. Negative for: Rebound tenderness, Hyperactive bowel sounds Back: Nontender, Normal Inspection Extremities: Nontender, No edema Skin: Normal color, No rash Neurological: Alert, Oriented x3, Cranial nerves II-XII grossly intact, Normal Strength, Normal Sensation Psychological: Normal affect, Normal Mood Diagnostic/Tx/Re-eval Clinical Impression(s) from Imaging Studies Abdomen/Pelvis CT 11/21/18 22:32 IMPRESSION: No acute findings in the abdomen or pelvis. No intra-abdominal free air or free fluid collections. Electronically Signed: Christ Carbajal MD at 1:11 EDT , Service support , Abnormal Lab Results 11/21/18 11/21/18 23:13 23:13 WBC 10.4 RBC 4.68 Hgb 12.8 L Hct 38.9 L MCV 83.1 MCH 27.4 MCHC 32.9 RDW Std Deviation 39.8 RDW Coeff of Mirlande 13.2 Plt Count 320 MPV 9.1 Immature Gran % (Auto) 0.300 Neut % (Auto) 49.5 Lymph % (Auto) 40.0 Wayne % (Auto) 6.1 Eos % (Auto) 3.6 Baso % (Auto) 0.5 Absolute Neuts (auto) 5.2 Absolute Lymphs (auto) 4.16 Nucleated RBC % 0 Sodium 142 Potassium 3.7 Chloride 111 H Carbon Dioxide 26.0 Anion Gap 5 BUN 18 Creatinine 0.98 Estim Creat Clear Calc 92.74 Est GFR (MDRD) Af Amer 109 Est GFR (MDRD) Non-Af 90 BUN/Creatinine Ratio 18.4 Glucose 93 Calcium 8.3 L Total Bilirubin 0.10 L AST 17 ALT 33 Alkaline Phosphatase 137 H Total Protein 6.8 Albumin 3.2 Globulin 3.6 Albumin/Globulin Ratio 0.9 Lipase 78 - Medical Decision Making Patient presents with abdominal pain in his left upper and left lower quadrant. He does have history of diverticulitis and prior surgery. He was nauseated without any vomiting. He states he had moved his bowels. IV was established. Patient was given analgesics and antiemetics with some improvement. Screening labs obtained were unremarkable. CT imaging shows evidence of prior anastomosis, but no obstruction, diverticulitis, or other dangerous process. I am not sure if this is adhesions that is causing his pain, but at this point I do feel that he is safe for outpatient therapy. Patient was counseled concerning symptoms and reasons to return. He will be discharged home. Impression 1. Left upper quadrant abdominal pain ED Disposition - Plan for ED Patient: Instructions: ABDOMINAL PAIN, Unkown Cause, (Male) Prescriptions: Dicyclomine HCl [Bentyl] 20 mg PO TIDAC #20 cap Prescription Printed proMETHazine tablet [Phenergan] 25 mg PO Q6H PRN PRN #10 tab PRN Reason: Nausea Prescription Printed Referrals: Fidencio Vega NP-C [Primary Care Provider] -
[2018-11-21] MEDS: 0.9% Normal Saline 1,000 ML 1000 ML IV (22:56)
[2018-11-21] MEDS: Morphine 4 MG/ML Syringe IV (22:58)
[2018-11-21] MEDS: proMETHazine 25 MG/ML Syringe 12.5 MG IV (22:58)
[2018-11-21 23:23] LABS: Absolute Lymphocyte Count 4.16 X10^3/uL (0.83-4.51); Absolute Neutrophil Count 5.2 X10^3/uL (2.0-7.7); Basophil# 0.05 X10^3/uL; Basophil% 0.5 % (0-1); Eosinophil# 0.37 X10^3/uL; Eosinophils% 3.6 % (0-5); Hematocrit 38.9 % (40-54); Hemoglobin 12.8 g/dL (13.0-16.5); Lymphocyte # 4.16 X10^3/ul (4.0); Mean Corp Hgb Conc 32.9 g/dL (32-36); Mean Corpuscular Hgb 27.4 pg (27.0-32.0); Mean Corpuscular Volume 83.1 fL (80-94); Mean Platelet Vol. 9.1 fl (6.2-12.0); Monocyte# 0.63 X10^3/uL; Monocyte% 6.1 % (0-10); NRBC Flagged by Analyzer 0 % (0-5); Neutrophil # 5.16 X10^3/uL (2.7-7.7); Neutrophil % 49.5 % (47-70); Platelet Count 320 K/mm3 (150-450); RBC Distribution Width CV 13.2 % (11.6-14.6); RBC Distribution Width SD 39.8 fl (35.1-43.9); Red Blood Count 4.68 M/mm3 (4.6-6.2); White Blood Count 10.4 K/mm3 (4.4-11.0)
[2018-11-22] MEDS: Morphine 4 MG/ML Syringe IV (00:07)
[2018-11-22 00:08] LABS: ALB/GLOB Ratio 0.9 RATIO (0.9-2.4); AST(SGOT) 17 U/L (15-37); Alanine Aminotransfer ALT/SGPT 33 U/L (16-61); Albumin, Serum 3.2 g/dL (3.2-5.0); Alkaline Phosphatase 137 U/L (45-117); Anion Gap 5 (5-15); BUN 18 mg/dL (7-18); BUN/Creat Ratio 18.4 RATIO (10-20); Calcium,Total 8.3 mg/dL (8.5-10.1); Chloride 111 mmol/L (98-107); Creatinine, Serum 0.98 mg/dL (0.70-1.30); EST Glomerular Filtration Rate 90 mL/min (>60); Est Glom Filt Rate - Afr Amer 109 mL/min (>60); Estimated Creatinine Clearance 92.74 ml/min; Globulin 3.6 g/dL (2.2-4.2); Glucose 93 mg/dL (74-106); Lipase 78 U/L (73-393); Potassium 3.7 mmol/L (3.5-5.1); Protein, Total 6.8 g/dL (6.4-8.2); Sodium Level 142 mmol/L (136-145)
[2018-11-22 00:09] VITALS: RESP 16
[2018-11-22 00:41] VITALS: BP 115/56; PULSE 79; RESP 16; O2SAT 99
[2018-11-22] MEDS: oxyCODONE 5 MG Tablet 10 MG PO (01:26)
== END 2018-11-22 01:30 | disposition home or self-care (01) ==
PROVIDERS: Emergency Provider Emergency Medicine; Family Provider Nurse Practitioner Primary Care; PCP Nurse Practitioner Primary Care
DX: R10.12 Left upper quadrant pain (principal); Z88.5 Allergy status to narcotic agent; Z88.8 Allergy status to other drugs, medicaments and biological substances; Z90.49 Acquired absence of other specified parts of digestive tract; Z91.040 Latex allergy status
CPT/HCPCS: 36415; 74177; 80053; 83690; 85025; 96361; 96374; 96375; 96376; 99285; J7030; Q9967; A4216

== ENCOUNTER 2019-01-20 20:01 | Emergency (ER) | payer MEDICARE, SELFPAY ==
[2019-01-20 20:02] VITALS: BP 144/79; PULSE 84; RESP 18; TEMP 36.7; O2SAT 96; BMI 41.5
--- NOTE | 2019-01-20 20:05 | RAD_ITS ---
STUDY: X-RAY - RIGHT KNEE REASON FOR EXAM: Male, 43 years old. Pain after recurrent falling injury of the right knee. TECHNIQUE: 4 view(s) of the knee. COMPARISON: None. FINDINGS: Normal visualized distal femur. Normal visualized proximal tibia and fibula. Normal proximal tibiofibular articulation. There is no demonstrated fracture. Normal medial femorotibial compartment. Normal lateral femorotibial compartment. Normal patellofemoral articulation. There is no demonstrated joint effusion. The soft tissue structures are unremarkable. RAD/Knee 4 or More Views IMPRESSION: Normal x-ray examination of the knee. Electronically Signed: Celine Espinoza MD at 20:49 EDT , Service support ,
--- NOTE | 2019-01-20 22:29 | ED.DCSUM_ITS ---
- ER Visit Summary Date of Service: 01/20/19 Chief Complaint: Pain History of Present Illness: The patient is a 43 M with pain in his right knee. Patient injured his knee last week. He strained it again today. He is unable to bear weight on it. Denies any associated symptoms like weakness or numbness. Physical Examination: Afebrile and vital signs unremarkable. He has anterior right knee tenderness with light touch. Range of motion is intact. Neurovascular intact distally. No laxity or deformity. Skin is normal. Test Results: X-rays were negative. Emergency Department Course and Treatment: X-rays negative. Patient treated with ice packs, Ultram, naproxen. Crutches for nonweightbearing. Follow-up with orthopedics. Treatment Plan: As above Disposition: Discharge Impression: 1. Right knee pain This note was generated with [employer] dictation software. It may contain incorrect words, spelling, and punctuation that were not noted in review of the chart prior to signing ED Disposition - Plan for ED Patient: Referrals: Fidencio Vega NP-C [Primary Care Provider] -
--- NOTE | 2019-01-20 22:31 | ED.DEP ---
ED Disposition - Plan for ED Patient: Instructions: Knee Sprain Prescriptions: Naproxen [Naprosyn] 500 mg PO BID #20 tab Prescription Printed Referrals: Deandra Ochoa DO [STAFF PHYSICIAN] -
[2019-01-20] MEDS: traMADol 50 MG Tablet PO (22:34)
[2019-01-20] MEDS: Naproxen 500 MG Tablet PO (22:34)
== END 2019-01-20 22:44 | disposition home or self-care (01) ==
LOC: ED 22:13
PROVIDERS: Emergency Provider Emergency Medicine; Family Provider Nurse Practitioner Primary Care; PCP Nurse Practitioner Primary Care
DX: M25.561 Pain in right knee (principal)
CPT/HCPCS: 73564; 99284

== ENCOUNTER → 2019-05-27 11:54 | Outpatient (CLI) | payer MEDICARE, MEDICAID, SELFPAY ==
--- NOTE | 2019-05-27 12:08 | RAD_ITS ---
STUDY: X-RAY - CERVICAL SPINE REASON FOR EXAM: Male, 44 years old. CERVICAL SPRAIN TECHNIQUE: 6 view(s) of the cervical spine were obtained. COMPARISON: None FINDINGS: Normal anterior atlantoaxial articulation. Normal odontoid process. Normal cervical lordosis. Normal vertebral bodies and endplates. Normal disc space heights. Normal visualized intervertebral neuroforamina. The soft tissue structures are unremarkable. RAD/Cerv Spine 4 or 5 Views IMPRESSION: Normal x-ray examination of the visualized cervical spine. Electronically Signed: July Campbell, at 17:08 EST Tel , Service support ,
--- NOTE | 2019-05-27 12:22 | RAD_ITS ---
STUDY: X-RAY - LUMBAR SPINE REASON FOR EXAM: Male, 44 years old. LUMBAR SPRAIN TECHNIQUE: 5 view(s) of the lumbar spine were obtained. COMPARISON: 21 November 2018 FINDINGS: Normal lumbar lordosis. There is no substantial scoliosis. There is a normal alignment of the vertebrae. Normal vertebral bodies and endplates. There are mild age-related expected degenerative changes. The soft tissue structures are unremarkable. RAD/L/S Spine Min 4 Views IMPRESSION: Unremarkable for age lumbar spine. Electronically Signed: July Campbell, at 17:52 EST Tel , Service support ,
== END ==
PROVIDERS: PCP Nurse Practitioner Primary Care; Referring Provider Chiropractor; Visit Provider Chiropractor
DX: S33.5XXA Sprain of ligaments of lumbar spine, initial encounter (principal); S13.4XXA Sprain of ligaments of cervical spine, initial encounter
CPT/HCPCS: 72050; 72110

== ENCOUNTER 2019-06-09 14:02 | Emergency (ER) | payer MEDICARE, MEDICAID, SELFPAY ==
[2019-06-09 14:05] VITALS: BP 156/84; PULSE 80; RESP 16; RESP 17; TEMP 36.8; O2SAT 98; O2SAT 99; BMI 40.7
--- NOTE | 2019-06-09 14:54 | ED.VISSUMM ---
- ER Visit Summary Date of Service: 06/09/19 Chief Complaint: [Back pain] History of Present Illness: The patient is a 44 M [presents to the emergency department with complaint of back pain that started 4 days ago. Patient states that the pain came on gradually. Patient states that he had a 2 weeks ago as well but seem to improve with anti-inflammatories and taking warm baths. Patient states he had similar pains in the past that usually relieved over time. Patient saw his chiropractor 2 weeks ago and had x-rays of his cervical spine and lumbar spine that were unremarkable. Patient denies any loss of bowel or bladder function. He denies any saddle anesthesia. Patient does describe pain at times radiating down both legs. He denies weakness in his legs. Patient denies any trauma to his back. He denies any fever. He denies urinary symptoms. Pain is worse with movement. He does describe spasm type sensations.] Physical Examination: [HEENT-PERRLA, EOMI. Cranial nerves II through XII grossly intact. TMs clear. Mucous membranes moist. No adenopathy. Cardiovascular-regular rate and rhythm without murmur or ectopy Lungs-clear to auscultation, chest wall stable without crepitus or subcu emphysema Abdomen-normoactive bowel sounds, soft, nontender, no rebound or rigidity, no peritoneal signs. Back exam-patient has diffuse tenderness over the lumbar paraspinal musculature as well as lumbar spine. There is no erythema or warmth noted. Patient has negative straight leg raises bilaterally. Deep tendon reflexes are plus 2 out of 4 bilaterally at the patella and Achilles. Patient has normal 5 extension bilaterally. Patient has normal sensation to light touch. Extremities-intact ?4, normal range of motion, normal pulses, atraumatic] Test Results: [None indicated. Patient has no red flag symptoms or physical exam findings concerning for cauda equina.] Emergency Department Course and Treatment: [Patient was given an injection of Toradol 60 mg IM as well as morphine 4 mg IM and Norflex 60 mg IM.] Treatment Plan: [She will be given a prescription for Flexeril as well as Naprosyn and few Percocet for severe pain. Patient will be given referral to primary care physician vice president of communications for no doc for follow-up within next 5 to 7 days. Patient advised to return if worsening pain, weakness in extremities, change in bowel or bladder function, or condition should worsen anyway.] Disposition: [Discharged home in stable condition] Impression: [Low back pain-atraumatic] This note was generated with [employer] dictation software. It may contain incorrect words, spelling, and punctuation that were not noted in review of the chart prior to signing ED Disposition - Plan for ED Patient: Referrals: Fidencio Vega, PRECISION ASSEMBLER-C [Primary Care Provider] -
--- NOTE | 2019-06-09 14:57 | ED.DEP ---
ED Disposition - Plan for ED Patient: Instructions: BACK AND NECK PAIN, General Prescriptions: cycloBENZAPRine HCl [Flexeril] 10 mg PO TID PRN #20 tab PRN Reason: Muscle Spasm Transmission Status: Pending to [address] Naproxen [Naprosyn] 500 mg PO BID PRN #20 tab Transmission Status: Pending to [address] Oxycodone HCl/Acetaminophen [Percocet 5/325] 1 tablet PO Q6H PRN PRN 3 Days #12 tablet PRN Reason: Pain Transmission Status: Received by [address] Referrals: Fidencio Vega NP-C [Primary Care Provider] - Patrick Huggins MD [STAFF PHYSICIAN] - 5-7 Days
[2019-06-09] MEDS: Ketorolac 60 MG/2 ML Vial IM (15:02)
[2019-06-09] MEDS: Morphine 4 MG/ML Syringe IV (15:08)
[2019-06-09] MEDS: Orphenadrine 60 MG/2 ML Ampul IM (15:08)
[2019-06-09 15:38] VITALS: RESP 18
== END 2019-06-09 15:40 | disposition home or self-care (01) ==
LOC: ED 14:55
PROVIDERS: Emergency Provider Emergency Medicine; PCP Nurse Practitioner Primary Care
DX: M54.5 Low back pain (principal)
CPT/HCPCS: 99282

== ENCOUNTER 2019-08-13 17:02 | Emergency (ER) | payer MEDICARE, MEDICAID, SELFPAY ==
[2019-08-13 17:03] VITALS: BP 152/88; PULSE 78; RESP 18; TEMP 37.1; O2SAT 98; BMI 47.1
--- NOTE | 2019-08-13 18:16 | EKG12_ITS ---
Test Reason : DYSRHYTHMIA Blood Pressure : / mmHG Vent. Rate : 071 BPM Atrial Rate : 071 BPM P-R Int : 174 ms QRS Dur : 074 ms QT Int : 398 ms P-R-T Axes : 027 015 040 degrees QTc Int : 432 ms Normal sinus rhythm Low voltage QRS Borderline ECG Confirmed by ANDREW OSCAR MD ([id number]), proposal editor GEORGE MORRISON ([id number]) on 08/17/2019 2:28:19 PM Referred By: DANA Confirmed By:ANDREW OSCAR MD
--- NOTE | 2019-08-13 18:31 | ED.VIS.GEN ---
History of Present Illness Chief Complaint: Edema Informant: Patient Onset: Weeks - Onset approximately 1.5 weeks ago Context: Sudden Onset Timing: Continuous Quality: Swelling lower extremities Location: Leg and feet Current Severity: Mild Maximum Severity: Moderate Worsened by: Nothing per patient Relieved by: Nothing Associated Symptoms: Weight gain, dyspnea on exertion Narrative: This is a 44-year-old male who is a non-smoker and nondrinker who presents with swelling of his lower extremities with dyspnea on exertion that started 1.5 to 2 weeks ago. Patient states he has been active. He denies fever, chills night sweats. Nuys headache, visual, ocular auditory symptoms. Patient denies rhinorrhea, congestion, postnasal drainage or sore throat. Patient denies cough. Patient denies pleuritic chest pain. Patient denies nausea, vomiting or diarrhea. Patient denies dysuria, frequency, urgency or decreased urine output. Patient has no medical problems on no medications. He is status post tonsillectomy, appendectomy, cholecystectomy. There is a remote history of diverticulitis. Prior similar symptoms: No Recent Illness/Hospitalization: No - Past Medical History (1) Diverticulitis large intestine Status: Acute Past Medical History - Allergies and Home Meds Allergies/Adverse Reactions: Allergies acetaminophen [From Vicodin] Allergy (Verified 08/13/19 17:02) Rash codeine Allergy (Verified 08/13/19 17:02) Anaphylaxis hydrocodone bitartrate [From Vicodin] Allergy (Verified 08/13/19 17:02) Rash latex Allergy (Verified 08/13/19 17:02) Swelling ondansetron [From Zofran (as hydrochloride)] Adverse Reaction (Verified 08/13/19 17:02) Nausea Primary Care Physician: NOT,DEFINED [NON-STAFF] - Surgical History: adenoidectomy, cholecystectomy, tonsillectomy Lives: Spouse/ Significant Other Smoking Status: Never smoker Alcohol: None Drugs: None - Family History Maternal Family History: Reports: No pertinent history Review of Systems General: Reports: - - Gain.. Denies: Chills, Fever, Malaise, Subjective, Sweats, Weight loss ENT: Denies: Rhinorrhea, Sore throat Cardiovascular: Denies: Chest pain, Palpitations Respiratory: Reports: Dyspnea on exertion. Denies: Dyspnea, Cough, Sputum, Orthopnea, Paroxysmal nocturnal dyspnea, -, - Musculoskeletal: Denies: Myalgias, Arthralgias, Neck pain, Back pain, Swelling, Extremity Pain, -, - Skin: Denies: Rash, Wounds Neurological: Denies: Headache, Weakness, Numbness Endocrine: Denies: Polyuria, Polydipsia Hematologic: Denies: Easy bruising, Easy bleeding Allergy: Denies: Uticaria, Swelling of the mouth Physical Exam Vital Signs/Narrative: Vital Signs Temp Pulse Resp BP Pulse Ox 08/13/19 17:03 98.7 F 78 18 152/88 H 98 Inital Vital Signs reviewed: Yes General: Well nourished, Well developed, Obese, No Acute Distress Head: Normocephalic, Atraumatic Eyes: Perrl, EOMI ENT: Moist mucous membranes, No rhinorrhea Neck: Supple, Nontender Cardiovascular: Regular rate, Regular rhythm, No murmurs, Normal S1, Normal S2 Respiratory: No distress, CTA bilaterally, Chest nontender Abdomen: Soft, Nontender, Nondistended, Normal bowel sounds Back: Nontender, Normal Inspection Extremities: Nontender, Edema Skin: Normal color, No rash. Negative for: Cyanosis, Diaphoresis, Jaundice, No Trauma Neurological: Alert, Oriented x3, Cranial nerves II-XII grossly intact, Normal Strength, Normal Sensation Psychological: Normal affect, Normal Mood Diagnostic/Tx/Re-eval Chest X-Ray - ED: 2 View, Normal, Heart, Lungs, Mediastinum, Bony Structures, No Acute Disease, - - X-ray was interpreted by me at 1856. Impressions Chest X-Ray 08/13/19 18:40 IMPRESSION: No acute cardiopulmonary disease. Electronically Signed: Yunier Skelton MD at 19:11 EDT , Service support , 08/13/19 18:40 Chest PA and Lateral [RAD] Stat Laboratory Results 08/13/19 08/13/19 08/13/19 18:32 18:32 18:32 WBC 11.1 H RBC 5.05 Hgb 13.8 Hct 41.7 MCV 82.6 MCH 27.3 MCHC 33.1 RDW Std Deviation 39.7 RDW Coeff of Mirlande 13.3 Plt Count 361 MPV 9.2 Sodium 139 Potassium 4.0 Chloride 108 H Carbon Dioxide 26.0 Anion Gap 5 BUN 18 Creatinine 0.94 Estim Creat Clear Calc 95.71 Est GFR (MDRD) Af Amer 113 Est GFR (MDRD) Non-Af 94 BUN/Creatinine Ratio 19.2 Glucose 89 Calcium 8.8 Total Bilirubin 0.20 AST 24 ALT 44 Alkaline Phosphatase 120 H Troponin I < 0.015 B-Natriuretic Peptide 23.7 Total Protein 7.6 Albumin 3.6 Globulin 4.0 Albumin/Globulin Ratio 0.9 BMP normal. Chest x-ray normal. Renal function normal. Albumin normal. EKG was normal. Patient has bilateral lymphedema of uncertain cause. - EKG Initial EKG Interpretation: Sinus Rhythm - Rhythm with a ventricular rate of 71. MI interval 174 ms. QRS duration 74 ms. QT duration 398 ms. [place] is normal. The EKG is unremarkable. - Medical Decision Making Differential includes dependent edema, malnourishment, right-sided heart failure possibly due to undiagnosed obstructive sleep apnea ED Disposition - Plan for ED Patient: Disposition: Home or Assisted Living Diagnosis: Lymphedema in adult patient Instructions: ED Peripheral Edema, Bilateral Referrals: NOT,DEFINED [NON-STAFF] - Doctor,Your [STAFF PHYSICIAN] - 1-2 Weeks
--- NOTE | 2019-08-13 18:40 | RAD_ITS ---
STUDY: X-RAY CHEST REASON FOR EXAM: Male, 44 years old. PT SENT FROM URGENT CARE FOR BILATERAL LOWER EXTREMITY EDEMA X 2 WEEKS. PT REPORTS WEIGHT GAIN X A COUPLE MONTHS. TECHNIQUE: PA and lateral views of the chest. COMPARISON: PA and lateral chest x-ray March 18, 2017. FINDINGS: The lungs are clear and moderately expanded. There is no demonstrated pleural abnormality. Normal size heart. Normal mediastinum and cornelia. Normal visualized pulmonary arteries. Normal visualized aortic arch and descending thoracic aorta. There are stable degenerative changes of the lower thoracic and upper lumbar spine. Normal visualized ribs, clavicles, and shoulders. There is no demonstrated abnormality of the visualized soft tissue structures of the upper abdomen. RAD/Chest PA and Lateral IMPRESSION: No acute cardiopulmonary disease. Electronically Signed: Yunier Skelton MD at 19:11 EDT , Service support ,
[2019-08-13 18:41] LABS: Hematocrit 41.7 % (40-54); Hemoglobin 13.8 g/dL (13.0-16.5); Mean Corp Hgb Conc 33.1 g/dL (32-36); Mean Corpuscular Hgb 27.3 pg (27.0-32.0); Mean Corpuscular Volume 82.6 fL (80-94); Mean Platelet Vol. 9.2 fl (6.2-12.0); Platelet Count 361 K/mm3 (150-450); RBC Distribution Width CV 13.3 % (11.6-14.6); RBC Distribution Width SD 39.7 fl (35.1-43.9); Red Blood Count 5.05 M/mm3 (4.6-6.2); White Blood Count 11.1 K/mm3 (4.4-11.0)
[2019-08-13 19:07] LABS: BNP,B-Type NATRIURETIC PEPTIDE 23.7 pg/mL (0-100)
[2019-08-13 19:20] LABS: ALB/GLOB Ratio 0.9 RATIO (0.9-2.4); AST(SGOT) 24 U/L (15-37); Alanine Aminotransfer ALT/SGPT 44 U/L (16-61); Albumin, Serum 3.6 g/dL (3.2-5.0); Alkaline Phosphatase 120 U/L (45-117); Anion Gap 5 (5-15); BUN 18 mg/dL (7-18); BUN/Creat Ratio 19.2 RATIO (10-20); Calcium,Total 8.8 mg/dL (8.5-10.1); Chloride 108 mmol/L (98-107); Creatinine, Serum 0.94 mg/dL (0.70-1.30); EST Glomerular Filtration Rate 94 mL/min (>60); Est Glom Filt Rate - Afr Amer 113 mL/min (>60); Estimated Creatinine Clearance 95.71 ml/min; Glucose 89 mg/dL (74-106); Protein, Total 7.6 g/dL (6.4-8.2); Sodium Level 139 mmol/L (136-145)
[2019-08-13 19:21] VITALS: PULSE 79; RESP 10; O2SAT 97
== END 2019-08-13 19:56 | disposition home or self-care (01) ==
PROVIDERS: Emergency Provider Emergency Medicine
DX: I89.0 Lymphedema, not elsewhere classified (principal); E66.9 Obesity, unspecified; Z88.5 Allergy status to narcotic agent; Z88.8 Allergy status to other drugs, medicaments and biological substances; Z90.49 Acquired absence of other specified parts of digestive tract; Z91.040 Latex allergy status; R06.09 Other forms of dyspnea
CPT/HCPCS: 71046; 80053; 83880; 84484; 85027; 93005; 99284; A4216

== ENCOUNTER → 2019-10-01 08:11 | Outpatient (CLI) | payer MEDICARE, MEDICAID, SELFPAY ==
[2019-10-01 08:06] VITALS: BMI 47.1
--- NOTE | 2019-10-01 08:12 | RAD_ITS ---
STUDY: X-RAY - LEFT ELBOW REASON FOR EXAM: Male, 44 years old. Injury. Pain. TECHNIQUE: The view(s) of the elbow. COMPARISON: None. FINDINGS: Normal visualized humerus, radius and ulna. Normal radiocapitellar and ulnotrochlear articulations. There is no acute fracture, dislocation or destructive osseous pathology. The soft tissue structures are unremarkable. RAD/Elbow min 3 Views IMPRESSION: No fracture or dislocation. Electronically Signed: Matthew Robb DO at 23:57 EDT Tel [phone], Service support ,
== END ==
PROVIDERS: PCP Nurse Practitioner Family; Referring Provider Orthopaedic Surgery; Visit Provider Orthopaedic Surgery
DX: M79.602 Pain in left arm (principal)
CPT/HCPCS: 73080

== ENCOUNTER 2019-10-04 20:55 | Emergency (ER) | payer MEDICARE, MEDICAID, SELFPAY ==
[2019-10-01 08:06] VITALS: BMI 47.1
[2019-10-04 20:56] VITALS: BP 141/103; PULSE 98; RESP 16; TEMP 36.3; O2SAT 98; BMI 45.5
--- NOTE | 2019-10-04 21:11 | ED.DCSUM_ITS ---
History of Present Illness Chief Complaint: Upper Extremity Injury Informant: Patient Onset: Weeks Context: Sudden Onset Current Severity: Moderate Maximum Severity: Moderate Narrative: Patient present secondary left arm pain. Approximate week ago he was lifting a part and felt a sudden pull. He was seen by Dr. Ochoa on the . X-rays were unremarkable. She is concerned that he has a tear of 1 of the bicep heads. They are working on scheduling him for an MRI. Patient presents tonight with continued pain and swelling. He states his hand will intermittently go numb. This has been ongoing since the injury. - Past Medical History (1) Myocardial infarction Status: Resolved (2) Hypertension Status: Chronic Past Medical History - Allergies and Home Meds Allergies/Adverse Reactions: Allergies acetaminophen [From Vicodin] Allergy (Verified 10/04/19 20:59) Rash codeine Allergy (Verified 10/04/19 20:59) Anaphylaxis hydrocodone bitartrate [From Vicodin] Allergy (Verified 10/04/19 20:59) Rash latex Allergy (Verified 10/04/19 20:59) Swelling ondansetron [From Zofran (as hydrochloride)] Adverse Reaction (Verified 10/04/19 20:59) Nausea Primary Care Physician: Yudith Wilson NP-C [Primary Care Provider] - Doctors: Dr. Ochoa Prior records reviewed: Yes Surgical History: adenoidectomy, cholecystectomy, tonsillectomy Smoking Status: Never smoker - Family History Maternal Family History: Reports: No pertinent history Review of Systems General: Denies: Chills, Fever Eyes: Denies: Visual changes - bilaterally ENT: Denies: Bilateral ear pain Cardiovascular: Denies: Chest pain Respiratory: Denies: Dyspnea, Cough Musculoskeletal: Reports: Swelling, Extremity Pain Skin: Denies: Rash Neurological: Reports: Parasthesia. Denies: Headache, Weakness Hematologic: Denies: Easy bruising, Easy bleeding Allergy: Denies: Uticaria Physical Exam Vital Signs/Narrative: Vital Signs Temp Pulse Resp BP Pulse Ox 10/04/19 20:56 97.4 F L 98 16 141/103 H 98 Inital Vital Signs reviewed: Yes General: Well nourished, Well developed Head: Normocephalic ENT: Moist mucous membranes Neck: Supple Cardiovascular: Regular rate, Regular rhythm Respiratory: No distress Abdomen: Soft, Nontender Extremities: - - Tenderness to palpation on the medial portion of the left forea rm. No overlying skin changes at this time. Strong distal pulses. Good range of motion. Skin: Normal color Neurological: Alert, Oriented x3 Psychological: Normal affect Diagnostic/Tx/Re-eval - Medical Decision Making I did review Dr. Ochoa's note from the office. Patient has had no new injury do not think repeat imaging is needed. I did do an oars report patient has not had narcotics in several months. He will be given a short course of Percocet to help with pain, first dose given here. He is supposed to be wearing a sling but states he was not able to find one at the store so he would be provided a sling here. Due to the degree of tenderness and swelling I will have him return tomorrow for a venous ultrasound of the left upper extremity. He is to follow-up Dr. Ochoa's office tomorrow about the scheduling of his MRI. ED Disposition - Plan for ED Patient: Disposition: Home or Assisted Living Diagnosis: Biceps tendon tear Instructions: ED ELBOW SPRAIN Prescriptions: Oxycodone HCl/Acetaminophen [Percocet 5/325] 1 tablet PO Q6H PRN PRN 3 Days #12 tablet PRN Reason: Pain Transmission Status: Received by GALINA SALOMON[address] Referrals: Deandra Ochoa DO [STAFF PHYSICIAN] -
[2019-10-04] MEDS: oxyCODONE 5 MG Tablet PO (21:19)
[2019-10-04 21:23] VITALS: RESP 16
== END 2019-10-04 21:24 | disposition home or self-care (01) ==
LOC: ED 21:21
PROVIDERS: Emergency Provider Emergency Medicine; PCP Nurse Practitioner Family
DX: S46.212D Strain of muscle, fascia and tendon of other parts of biceps, left arm, subsequent encounter (principal); X50.9XXD Other and unspecified overexertion or strenuous movements or postures, subsequent encounter; I10 Essential (primary) hypertension; I25.2 Old myocardial infarction; Z88.5 Allergy status to narcotic agent; Z88.8 Allergy status to other drugs, medicaments and biological substances; Z90.49 Acquired absence of other specified parts of digestive tract; Z91.040 Latex allergy status
CPT/HCPCS: 99283

== ENCOUNTER → 2019-10-05 10:37 | Outpatient (CLI) | payer MEDICARE, MEDICAID, SELFPAY ==
[2019-10-04 20:56] VITALS: BMI 45.5
--- NOTE | 2019-10-05 10:41 | VDUE_ITS ---
Reason For Study: pain Left Proximal Left jugular vein is spontaneous, widely patent, phasic, with no intraluminal echogenicity noted. Left subclavian vein is spontaneous, widely patent, phasic, with no intraluminal echogenicity noted. Left Arm Left axillary vein is spontaneous, patent, phasic, competent, compressible and demonstrates augmentation. Left brachial vein is compressible. Left cephalic vein is compressible. Left basilic vein is compressible. Left Lower Arm Left radial vein is compressible. Left ulnar vein is compressible. Interpretation Summary No evidence for acute deep venous thrombosis[left] upper extremity with patent and compressible cephalic and basilic veins. Ordering Physician: Azalea Sánchez Performed By: Aldair Ceja RVT ?
== END ==
PROVIDERS: PCP Nurse Practitioner Family; Referring Provider Emergency Medicine; Visit Provider Emergency Medicine
DX: M79.602 Pain in left arm (principal)
CPT/HCPCS: 93971

== ENCOUNTER → 2019-10-06 06:33 | Outpatient (CLI) | payer MEDICARE, MEDICAID, SELFPAY ==
[2019-10-04 20:56] VITALS: BMI 45.5
--- NOTE | 2019-10-06 06:34 | MRI_ITS ---
STUDY: MRI LEFT ELBOW REASON FOR EXAM: [place] a pop in the arm while pulling an object 3 weeks ago. TECHNIQUE: Standardized fat and water weighted pulse sequences were obtained in all 3 orthogonal planes. COMPARISON: Radiographs 10/01/2019. FINDINGS: Normal radio-capitellum articulation. Normal radial collateral ligamentous complex. There is a low-grade undersurface partial tear of the common extensor tendon (inversion recovery coronal image 17). Normal ulnotrochlear articulation. Normal ulnar collateral ligamentous complex. There is tendinosis of the common flexor tendon (inversion recovery coronal image 18). The cubital tunnel is normal, with a normal ulnar nerve. There is a high grade partial tear of the distal biceps tendon at the radial tuberosity insertion (T2 axial images 9, 10; inversion recovery coronal image 13) with retracted fibers approximately 1.3 cm from the radial tuberosity insertion (inversion recovery coronal image 12) and mild adjacent fluid/hemorrhage. Normal brachialis musculotendinous insertion. Normal triceps tendon and teno-osseous insertion. Normal olecranon process. The visualized distal humerus, proximal radius, and ulna are normal. The visualized muscles of the distal arm and proximal forearm are normal. MRI/Upper Ext Joint Only(Routine) IMPRESSION: High-grade partial tear of the distal biceps tendon. Low-grade undersurface partial tear of the common extensor tendon. Tendinosis of the common flexor tendon. Electronically Signed: Brock Marquez MD at 8:03 EDT Tel , Service support ,
== END ==
PROVIDERS: PCP Nurse Practitioner Family; Referring Provider Orthopaedic Surgery; Visit Provider Orthopaedic Surgery
DX: S49.92XA Unspecified injury of left shoulder and upper arm, initial encounter (principal); S46.10 Unspecified injury of muscle, fascia and tendon of long head of biceps
CPT/HCPCS: 73221

== ENCOUNTER → 2019-10-08 17:53 | Outpatient (CLI) | payer MEDICARE, MEDICAID, SELFPAY ==
[2019-10-07 09:46] VITALS: BMI 45.5
== END ==
PROVIDERS: PCP Nurse Practitioner Family
DX: Z11.59 Encounter for screening for other viral diseases (principal)
CPT/HCPCS: 87635; G2023; U0003

== ENCOUNTER 2019-10-21 22:04 | Emergency (ER) | payer MEDICARE, MEDICAID, SELFPAY ==
[2019-10-07 09:46] VITALS: BMI 45.5
[2019-10-21 22:05] VITALS: BP 161/89; PULSE 80; RESP 16; TEMP 36.3; O2SAT 99; BMI 43.9
--- NOTE | 2019-10-21 22:45 | ED.DCSUM_ITS ---
- ER Visit Summary Date of Service: 10/21/19 Chief Complaint: [Left arm pain] History of Present Illness: The patient is a 44 M [presents to the emergency department complaint of left arm pain. Patient states that he had surgery 8 days ago on his left arm for a bicep tendon tear. Patient surgery was in [facility] and he does not remember the name of the surgeon. Patient is supposed to follow-up with Dr. Radha Ochoa on October 25. Patient states that last evening he noted that the splint was broken. Patient also complaining of discomfort from the splint around the wrist. He denies any trauma to the arm. Patient is right-hand dominant. No other medical history.] Physical Examination: [HEENT-PERRLA, EOMI. Cranial nerves II through XII grossly intact. TMs clear. Mucous membranes moist. No adenopathy. Cardiovascular-regular rate and rhythm without murmur or ectopy Lungs-clear to auscultation, chest wall stable without crepitus or subcu emphysema Abdomen-normoactive bowel sounds, soft, nontender, no rebound or rigidity, no peritoneal signs. Extremities-intact ?4, normal range of motion, normal pulses. Patient is noted to have a long-arm posterior splint on the left arm. The splint seems to be fractured just distal to the elbow. After splint was removed patient was noted to be neurovascular intact. He was advised not to extend the arm. Patient was advised to keep the elbow in flexion. Patient has a small 3 cm laceration over the proximal forearm which appears to be healing well without signs of infection. He is neurovascular intact distally.] Test Results: None indicated [] Emergency Department Course and Treatment: [New posterior splint applied. Patient was given a sling.] Treatment Plan: [Patient to keep his appointment with orthopedics on October 25.] Disposition: [Discharged home in stable condition] Impression: [Wound check postop-no infection Left arm posterior splint replaced] This note was generated with [employer] dictation software. It may contain incorrect words, spelling, and punctuation that were not noted in review of the chart prior to signing ED Disposition - Plan for ED Patient: Referrals: Yudith Wlison NP-C [Primary Care Provider] -
--- NOTE | 2019-10-21 22:51 | ED.DEP ---
ED Disposition - Plan for ED Patient: Instructions: ED Splint Care Fiberglass, ED Wound Check Post Op No Infec Referrals: Yudith Wilson NP-C [Primary Care Provider] - Deandra Ochoa DO [STAFF PHYSICIAN] - Keep Vincent appointment
== END 2019-10-21 23:03 | disposition home or self-care (01) ==
LOC: ED 22:47
PROVIDERS: Emergency Provider Emergency Medicine; PCP Nurse Practitioner Family
DX: Z48.00 Encounter for change or removal of nonsurgical wound dressing (principal)
CPT/HCPCS: 29105; 99283

== ENCOUNTER 2019-12-01 18:30 | Outpatient (RCR) | payer MEDICARE, MEDICAID, SELFPAY ==
--- NOTE | 2019-11-01 15:58 | HP.PTEVAL_ITS ---
Patient's Visit Information BARRETT LOPEZ is a 44 year old M referred to Physical Therapy by Dr. Deandra Ochoa DO with a diagnosis of Distal Biceps Repair 10/12. Date of Evaluation: 11/01/19 Physical Therapist: Andie Serna DPT - Visit Plan Frequency: 3x /Week Duration: 4 Weeks Plan: Follow Protocol - Subjective Left Distal Biceps Repair in [place] by Dr. Cooper 10/13/2019. 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 Is currently in a TROM sling and does not want to wear it. Takes it off every once in while so that he can move it around. He is squeezing a ball with his hand- he was throwing a ball with his brother in the sling. He is driving but its hard with the sling. He is right hand dominate. Worst: 7/10 Pain is located on the medial side of the elbow. Since surgery he has had twitches in the muscles Agg: leaving it raised Eases: unhooking the sling Best: 0/10. Pain radiates to the mid shaft of the radius. Describes the pain as stabbing. The pain comes and goes. Does have some N/T in the whole hand. Has held his coffee cup to try to build endurance (was educated not to do this). Sleep: disturbed- impossible to get comfortable so he does not sleep. No Neck or shoulder pain. 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 PMHx: none Meds: none. Will be in a sling for 6 weeks- then can d/c himself. - Objective Posture: FH,RS- does not maintain. Observation: TROM brace with sling attatchment. Gait: no deviation noted. Palpation: tender over scar with increased scar tissue. ROM: Shoulder: WNL, Elbow: flexion: 120 degrees Extn: 47 degrees from neutral. Supination: 75 degrees Pronation: 65 degrees, Finger dexterity: hard to touch thumb Bat Boy/Girl: WNL. Strength: Shoulder isometrics: 4/5 throughou Scap: fair minus, Elbow: not tested. Bat Boy/Girl: 75, 60, 60 Lat Pinch: 20 Tripod pinch: 15 - Goals Goal 1:: Patient will be I with HEP and progression Goal Time Frame: 4-6 Weeks Goal 2:: Patient will demo full AROM of the elbow Goal Time Frame: 8-12 Weeks Goal 3:: Patient will lift 10 lbs overhead as per protocol Goal Time Frame: 8-12 Weeks Goal 4:: Patient will maintain proper posture t/o tx session to demo increased core s/s Goal Time Frame: 8-12 Weeks - Rehabilitation Potential Physical Therapy Diagnosis: Patient presents with hypomobility- he has decreased ROM, strength, flex and muscular endurance s/p Distal Biceps Repair 10/13/2019 leading to poor posture and increased pain with ADL's. Rehabilitation Potential: Good - Anticipated Interventions Patient/Client Instruction: Educate patient on: Benefits of Fitness Program Therapeutic Exercise to Include: Strength training, Endurance training, Agility training, Body mechanics, Postural training, Flexibilty training, Gait and locomotor training, Passive ROM, Active ROM, Dynamic Lumbar Stabilization, Scapular Strength/Stabilization For the Purpose of:: To improve muscle performance and motor function TENS: Yes Cryotherapy (ice pack, ice massage): Yes Thermo therapy (hot pack): Yes For the Purpose of:: To decrease pain Thank you for the opportunity to evaluate your patient. For Medicare and Medicare HMO plans, please review the plan of care and approve it. It will need to be FAXED BACK to us at [phone] for Medicare purposes. For Medicare only, by signing this I certify the plan of care. Please let me know if there are questions or concerns regarding this plan of care. Physician Signature: Date:
--- NOTE | 2020-03-02 10:49 | HP.PT.NRP ---
BARRETT LOPEZ was seen in my office for initial evaluation on 11/01/19. The following Plan of Care was established for this patient: Initial Frequency: 3x /Week Initial Duration: 4 Weeks Patient/Client Instruction: Educate patient on: Benefits of Fitness Program Therapeutic Exercise to Include: Strength training, Endurance training, Agility training, Body mechanics, Postural training, Flexibilty training, Gait and locomotor training, Passive ROM, Active ROM, Dynamic Lumbar Stabilization, Scapular Strength/Stabilization For the Purpose of:: To improve muscle performance and motor function TENS: Yes Cryotherapy (ice pack, ice massage): Yes Thermo therapy (hot pack): Yes For the Purpose of:: To decrease pain This patient was last seen in our office . Pertinent comments regarding their Physical therapy will appear below: Patient has not returned to PT in over 8 weeks- appropriate for discharge and return to MD for further evaluation. At this point I will be discontinuing this patient from physical therapy. I would be happy to see this patient again in the future if found appropriate by the physician. Thank you! Andie Serna DPT
== END 2019-12-01 19:00 | disposition home or self-care (01) ==
LOC: PT 18:30
PROVIDERS: PCP Nurse Practitioner Family; Referring Provider Orthopaedic Surgery; Visit Provider Orthopaedic Surgery
DX: Z98.890 Other specified postprocedural states (principal)
CPT/HCPCS: 97014; 97110; 97140; 97162; G0283

== ENCOUNTER 2020-04-03 17:39 | Emergency (ER) | payer MEDICARE, SELFPAY ==
[2019-11-23 13:32] VITALS: BMI 43.9
[2020-04-03 17:40] VITALS: BP 119/87; PULSE 87; RESP 16; TEMP 36.3; O2SAT 99; BMI 36.8
--- NOTE | 2020-04-03 17:57 | ED.VIS.INJ ---
History of Present Illness Chief Complaint: Lower Extremity Injury Informant: Patient Onset: Hours Mechanism/Context: Blunt Injury, Fall Quality of Pain: Aching, Throbbing Location: Right lower back and right knee not hip Current Severity: Mild Maximum Severity: Moderate Worsened by: Movement Relieved by: The remaining still back minimal remaining still Associated Symptoms: Negative for: Parasthesias, Weakness, Loss of function, Inability to ambulate, Loss of consciousness, Amnesia Narrative: Patient is a 44-year-old male who presents because he fell down 6 steps. He states he landed on his right side. He attempted to grab the handrail. He landed on his right side. He states his knee twisted to the left and back. He also complains of right low back pain. He denies central back pain. He denies paresthesia, anesthesia or motor weakness. He has not urinated since the fall. He does have a ride home. He denies head trauma. He denies neck pain. He denies chest pain. Denies shortness of breath. He is not on anticoagulant. He denies history of diabetes, renal disease, or peptic ulcer disease. Prior similar symptoms: No Recent Illness/Hospitalization: No - Past Medical History (1) Diverticulitis large intestine Status: Acute (2) Hypertension Status: Chronic (3) Myocardial infarction Status: Resolved Past Medical History - Allergies and Home Meds Allergies/Adverse Reactions: Allergies acetaminophen [From Vicodin] Allergy (Verified 04/03/20 18:15) Rash codeine Allergy (Verified 04/03/20 18:15) Anaphylaxis hydrocodone bitartrate [From Vicodin] Allergy (Verified 04/03/20 18:15) Rash latex Allergy (Verified 04/03/20 18:15) Swelling ondansetron [From Zofran (as hydrochloride)] Adverse Reaction (Verified 04/03/20 18:15) Nausea Primary Care Physician: Yudith Wilson ELEMENTARY EDUCATION TEACHER, ELEMENTARY EDUCATION TEACHER-C [Primary Care Provider] - Prior records reviewed: Yes Surgical History: adenoidectomy, cholecystectomy, tonsillectomy Lives: Alone Smoking Status: Never smoker Alcohol: None Drugs: None - Family History Maternal Family History: Reports: No pertinent history Review of Systems General: Denies: Chills, Fever, Malaise, Subjective Eyes: Denies: Visual changes - bilaterally, Blurred Vision - bilaterally ENT: Denies: Rhinorrhea, Sore throat Cardiovascular: Denies: Chest pain, Palpitations Respiratory: Denies: Dyspnea, Cough, Sputum, Dyspnea on exertion Gastrointestinal: Denies: Abdominal pain, Nausea, Vomiting, Diarrhea, Melena, Hematochezia Genitourinary: Denies: Dysuria, Hematuria, Frequency Musculoskeletal: Reports: Myalgias, Arthralgias, Back pain, Extremity Pain. Denies: Neck pain, Swelling Skin: Denies: Rash, Wounds Neurological: Denies: Headache, Weakness, Parasthesia Endocrine: Denies: Polyuria, Polydipsia Hematologic: Denies: Easy bruising, Easy bleeding Physical Exam Vital Signs/Narrative: Vital Signs Temp Pulse Resp BP Pulse Ox 04/03/20 17:40 97.3 F L 87 16 119/87 H 99 Inital Vital Signs reviewed: Yes General: Well nourished, Well developed, Obese Head: Normocephalic, Atraumatic Eyes: Perrl, EOMI. Negative for: Pale conjunctiva, Scleral icterus ENT: TM's clear, No hemotympanum or drainage, No trauma. Negative for: Hemotympanum, Otorrhea, Nasal trauma, Nasal septal hematoma Neck: Nontender, Full ROM. Negative for: Spinal Tenderness, Paraspinal Tenderness Cardiovascular: Regular rate, Regular rhythm, No murmurs, Normal S1, Normal S2 Respiratory: No distress, CTA bilaterally, Chest nontender Abdomen: Soft, Nontender, Nondistended, Normal bowel sounds, - - There is no pain palpation of the pelvis. Back: CVA Tenderness - Right, Negative SLR - Right, Negative SLR - Left. Negative for: Nontender, CVA Tenderness - Left, Spinal Tenderness, Paraspinal Tenderness Skin: Normal color, No rash, No Trauma Neurological: Alert, Oriented x3, Cranial nerves II-XII grossly intact, Normal Strength, Normal Sensation, Normal DTR - Patella and ankle reflexes are 1+., - - EHL is intact bilaterally. There is no Babinski sign and there is no clonus right or left. Psychological: Normal affect, Normal Mood - Glascow Coma Scale Eye Opening: Spontaneous Motor: Obeys Commands Verbal: Oriented Coma Scale Total: 15 Diagnostic/Tx/Re-eval Chest X-Ray - ED: Read by ED Physician, - - View x-ray of the right knee was obtained. There is no effusion. There is no subluxation or fracture noted. 04/03/20 18:33 Knee 4 or More Views [RAD] Stat Laboratory Results 04/03/20 18:25 Urine Color Yellow Urine Clarity Clear Urine pH 6.0 Ur Specific Jackson 1.025 Urine Protein Negative Urine Glucose (UA) Normal Urine Ketones 5 H Urine Occult Blood 10 H Urine Nitrite Negative Urine Bilirubin Negative Urine Urobilinogen Normal Ur Leukocyte Esterase Negative Urine RBC 0 SEEN Urine WBC 0 SEEN Ur Squamous Epith Cells 0 SEEN Calcium Oxalate Crystal 1+ Urine Bacteria 0 SEEN Urine Mucus 1+ - Medical Decision Making Since patient has right flank pain will obtain UA to rule out hematuria. If there is evidence of hematuria will obtain CT of the abdomen pelvis. X-ray of the knee was obtained to evaluate for fracture versus strain versus sprain. Examination of the knee reveals slight swelling. There is minimal pain ovation of the patella. There is no effusion. Patient complained of pain with varus and valgus stress test and a slight laxity of the lateral collateral ligament on the right compared to the left. Maris's test was negative. Modified Oracio's test was negative. He is able to extend to 180 degrees and flex to 90 degrees. PT DP pulse are palpable. X-ray was normal. Patient does have a strain of his lateral collateral ligament. He also has a back strain. There is no evidence of renal injury. Kurtis is to discharge to home ED Disposition - Plan for ED Patient: Disposition: Home or Assisted Living Diagnosis: Injury due to fall, Acute right-sided low back pain, Sprain of lateral collateral ligament of knee Instructions: ED Back Pain (Acute or Chronic), ED Knee Sprain Prescriptions: Naproxen [Naprosyn] 500 mg PO BID #14 tablet Referrals: Yudith Wilson NP, ELEMENTARY EDUCATION TEACHER-C [Primary Care Provider] - 3-5 Days if not improving
[2020-04-03] MEDS: Ondansetron 4 MG/2 ML Vial IV (18:06)
[2020-04-03] MEDS: morphine 8 MG/ML Syringe IV (18:07)
[2020-04-03] MEDS: Ketorolac 15 MG/ML Vial IV (18:07)
[2020-04-03 18:32] LABS: Bacteria 0 SEEN /hpf (None Seen); Red Blood Cells-Urine 0 SEEN /hpf (0-5); Squamous Epithelial Cells - UA 0 SEEN /hpf (0-5); White Blood Cells 0 SEEN /hpf (0-5)
--- NOTE | 2020-04-03 18:33 | RAD_ITS ---
STUDY: X-RAY - RIGHT KNEE REASON FOR EXAM: Male, 44 years old. FELL TODAY ON STEPS, PAIN IN POSTERIOR KNEE AT LEVEL OF JOINT TECHNIQUE: 4 view(s) of the knee. COMPARISON: January 20, 2019 FINDINGS: Normal visualized distal femur. Normal visualized proximal tibia and fibula. Normal proximal tibiofibular articulation. There is no demonstrated fracture. Normal medial femorotibial compartment. Normal lateral femorotibial compartment. Normal patellofemoral articulation. There is no demonstrated joint effusion. The soft tissue structures are unremarkable. RAD/Knee 4 or More Views IMPRESSION: Normal x-ray examination of the knee. Electronically Signed: Willian Jacobs MD at 18:56 EST , Service support ,
[2020-04-03 18:36] LABS: Color, Urine Yellow (Yellow); Glucose, Dipstick Normal (Normal); Ketone-Dipstick 5 mg/dl (Negative); Leukocyte Esterase-Dipstick Negative /ul (Negative); Nitrite-Dipstick Negative (Negative); Occult Blood-Urine 10 /ul (Negative); Protein-Dipstick Negative (Negative); Specific Gravity, Urine 1.025 (1.002-1.030); Urine Bilirubin Dipstick Negative (Negative); Urine Clarity Clear (Clear); Urine Urobilinogen Normal (Normal)
[2020-04-03 18:44] LABS: Calcium Oxalate Crystals Ur 1+ /hpf (<or=2+); Mucous, Urine 1+ /hpf (<or=2+)
[2020-04-03 19:10] VITALS: PULSE 87; RESP 17; O2SAT 95
== END 2020-04-03 19:11 | disposition home or self-care (01) ==
PROVIDERS: Emergency Provider Emergency Medicine; PCP Nurse Practitioner Family
DX: M54.5 Low back pain (principal); S83.421A Sprain of lateral collateral ligament of right knee, initial encounter; W10.9XXA Fall (on) (from) unspecified stairs and steps, initial encounter; Y93.9 Activity, unspecified; Y92.9 Unspecified place or not applicable; Y99.9 Unspecified external cause status; I10 Essential (primary) hypertension; I25.2 Old myocardial infarction; Z88.5 Allergy status to narcotic agent; Z88.8 Allergy status to other drugs, medicaments and biological substances; Z90.49 Acquired absence of other specified parts of digestive tract; Z91.040 Latex allergy status
CPT/HCPCS: 73564; 81001; 96374; 96375; 99284; A4216; J2405

== ENCOUNTER 2020-04-06 09:47 | Emergency (ER) | payer MEDICARE, MEDICAID, SELFPAY ==
[2020-04-06 09:48] VITALS: BP 161/99; PULSE 70; RESP 18; TEMP 36.6; O2SAT 100; BMI 41.5
--- NOTE | 2020-04-06 10:01 | RAD_ITS ---
STUDY: X-RAY - RIGHT KNEE REASON FOR EXAM: Male, 44 years old. fell on knee this morning, pain posterior -- unable to stand for xrays TECHNIQUE: 4 view(s) of the knee. COMPARISON: 04/03/2020. FINDINGS: No acute fracture, dislocation or osseous destruction. Minimal medial compartment joint space narrowed. Lateral compartment preserved. Patellofemoral spacing preserved. Mild soft tissue swelling. No significant joint effusion. RAD/Knee 4 or More Views IMPRESSION: Right knee acutely intact Minimal osteoarthritis Mild soft tissue swelling If clinical symptoms persist consider knee MRI Electronically Signed: Patrick Mina DO at 10:46 EST Tel , Service support ,
--- NOTE | 2020-04-06 10:02 | ED.VIS.GEN ---
History of Present Illness Chief Complaint: Lower Extremity Injury Informant: Patient Onset: Days Current Severity: Moderate Maximum Severity: Moderate Narrative: Patient presents secondary to right knee injury. Patient was seen in the ER on the after falling down 6 steps. Right knee x-ray at that time was unremarkable. He was diagnosed with a lateral collateral ligament strain. Patient states last evening he was going down the same flight of steps and fell again. His pain is now worse over the posterior aspect of the right knee. He has intermittent paresthesias to his foot. - Past Medical History (1) Hypertension Status: Chronic (2) Myocardial infarction Status: Resolved Past Medical History - Allergies and Home Meds Allergies/Adverse Reactions: Allergies acetaminophen [From Vicodin] Allergy (Verified 04/06/20 09:50) Rash codeine Allergy (Verified 04/06/20 09:50) Anaphylaxis hydrocodone bitartrate [From Vicodin] Allergy (Verified 04/06/20 09:50) Rash latex Allergy (Verified 04/06/20 09:50) Swelling ondansetron [From Zofran (as hydrochloride)] Adverse Reaction (Verified 04/06/20 09:50) Nausea Primary Care Physician: Yudith Wilson S[employer] DRUMMER, [employer]UM[employer]-C [Primary Care Provider] - Prior records reviewed: Yes Surgical History: adenoidectomy, cholecystectomy, tonsillectomy Smoking Status: Never smoker - Family History Maternal Family History: Reports: No pertinent history Review of Systems General: Denies: Chills, Fever Eyes: Denies: Visual changes - bilaterally ENT: Denies: Bilateral ear pain Cardiovascular: Denies: Chest pain Respiratory: Denies: Dyspnea, Cough Gastrointestinal: Denies: Abdominal pain Musculoskeletal: Reports: Extremity Pain Skin: Denies: Rash, Wounds Neurological: Reports: Parasthesia. Denies: Headache Hematologic: Denies: Easy bruising, Easy bleeding Allergy: Denies: Uticaria Physical Exam Vital Signs/Narrative: Vital Signs Temp Pulse Resp BP Pulse Ox 04/06/20 09:48 97.9 F 70 18 161/99 H 100 Inital Vital Signs reviewed: Yes General: Well nourished, Well developed Head: Normocephalic ENT: Moist mucous membranes Neck: Supple Cardiovascular: Regular rate, Regular rhythm Respiratory: No distress, CTA bilaterally Abdomen: Soft, Nontender Back: Nontender Extremities: - - Diffuse tenderness over the right knee. Patella is nonblottable. Mild tenderness along both medial and lateral joint lines. No laxity noted. Posterior tenderness noted but no palpable masses. Range of motion between 90 degrees and 180 degrees without difficulty. Skin: Normal color Neurological: Alert, Oriented x3, Normal Sensation Psychological: Normal affect Diagnostic/Tx/Re-eval Right knee x-ray per my interpretation reveals no bony injury. - Medical Decision Making She was given 1 tab of oxycodone here. X-ray results are reviewed with him. Ronni wrap will be applied. He does not feel he needs crutches at this time. He is given off work today and work restrictions through the . He will follow-up with Dr. Ochoa. ED Disposition - Plan for ED Patient: Disposition: Home or Assisted Living Diagnosis: Right knee sprain Instructions: ED Knee Sprain Prescriptions: Oxycodone HCl/Acetaminophen [Percocet 5/325] 1 tablet PO Q6H PRN PRN 3 Days #10 tablet PRN Reason: Pain Transmission Status: Received by GALINA SALOMON[address] Referrals: Deandra Ochoa DO [STAFF PHYSICIAN] - 5-7 Days
[2020-04-06] MEDS: oxyCODONE 5 MG Tablet PO (10:09)
== END 2020-04-06 11:21 | disposition home or self-care (01) ==
PROVIDERS: Emergency Provider Emergency Medicine; PCP Nurse Practitioner Family
DX: S83.91XA Sprain of unspecified site of right knee, initial encounter (principal); W10.9XXA Fall (on) (from) unspecified stairs and steps, initial encounter; R20.2 Paresthesia of skin; I10 Essential (primary) hypertension; I25.2 Old myocardial infarction; Z88.5 Allergy status to narcotic agent; Z88.8 Allergy status to other drugs, medicaments and biological substances; Z90.49 Acquired absence of other specified parts of digestive tract; Z91.040 Latex allergy status
CPT/HCPCS: 73564; 99283

== ENCOUNTER 2020-04-26 12:31 | Outpatient (RCR) | payer MEDICARE, MEDICAID, SELFPAY ==
--- NOTE | 2020-04-26 15:25 | HP.PTEVAL ---
Patient's Visit Information BARRETT LOPEZ is a 44 year old M referred to Physical Therapy by Dr. Deandra Ochoa DO with a diagnosis of R MCL strain. Date of Evaluation: 04/26/20 Physical Therapist: Davis Helton DPT - Visit Plan Frequency: 2x /Week Duration: 4 Weeks Plan: Start with ROM, isometric quad/HS activation; progressing to functional exercises as tolerated. - Subjective Pt. is here today for his initial evaluation with diagnosis of R MCL strain. Pt. 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 He reports hearing and feeling a loud pop in his knee and has had pain ever since. Pt. is now having pain at medial joint line and posterior aspect of his R knee. He was wearing a brace but his brace broke and is now not wearing one. He has tried ice, heat, stretching at home, but still reports increased pain. Increaed pain: with walking, standing, stairs, bending/straigthening out his knee. Decreased pain: keeping his knee slight bend and supported with his other leg underneath his knee. He denies N/T. He was laid off form his job recently as well. He did talk to the nurses at his doctor about getting another brace. He is hopeful to reduce his symptoms allow for him to walk better and get back to work without limitations. - Pain R knee Pain Intensity (Out of 10): 5 Pain Intensity Range: 2, 9 Comment: medial joint line, lateral popliteal fossa - Objective POSTURE: Pt. is able to stand withotu AD. He has L lateral weight shift with attempts to decreased WBing through RLE. PALPATION: Pt. has minmal edema in LLE. No obvious bruising noted. pt. was painfull to palpation of R knee medial joint line, and medial femoral condyle. Pt. also reports increased pain with palpation of lateral aspect of popliteal fossa. NEURO: Pt. has normal sensation of BLEs, normal DTR of B achilles and patella. ROM: R Knee 0-0-125deg. L knee 0-15-108deg. Pt. has increased pain with over pressure into both directions. Pt. has tight HS of BLEs. MMT: LLE- 5/5 throughout; RLE- ankle- 5/5 throughout; knee- ext 3/5, flexion 3/5; hip- flexon 3/5, abd 4/5, ext 4/5. GAIT: Pt. ambulates without AD, but has marked antalgic pattern during R stance phase. He demonstrates decreasred WBing on RLE, minmal knee flexion during swing phase and lack TKE during stance phase. STAIR: Pt. is able to complete with step to pattern loading LLE only. - Special Tests R Knee Oracio - Meniscus: Positive R Knee Valgus - MCL: Positive Comments: Pt. is very tender with all movments, increase with valgus and Casi test - Goals Goal 1:: LTG: Pt. to be I with HEP. Goal Time Frame: 2-4 Weeks Goal 2:: STG: pt. to have increased R knee ROM to 0-0-120deg without increase in symptoms. Goal Time Frame: 2-4 Weeks Goal 3:: STG: Pt. to sleep throughout the night without increase in symptoms. Goal Time Frame: 2-4 Weeks Goal 4:: LTG: pt. to ambulate with normal gait pattern without increase in symptoms. Goal Time Frame: 4-6 Weeks Goal 5:: LTG: Pt. to have increased RLE strength by 1/2 grade of all effected musculature. Goal Time Frame: 4-6 Weeks Goal 6:: LTG: Pt. to negotiate 1 flight of steps with 1 HR with reciprocal pattern without increase in symptoms. Goal Time Frame: 4-6 Weeks - Rehabilitation Potential Physical Therapy Diagnosis: Pt. has signs and symptoms consistent with R MCL strain possible tear. He is very painful in this region. He has some laxity, but is difficult to properly asses due to pain with all movements. pt. woulde benefit from PT to work on his ROM and progress to strengthening as tolerated. Rehabilitation Potential: Fair - Anticipated Interventions Patient/Client Instruction: Educate patient on: Condition, Plan of Care, Risk Factors, Benefits of Fitness Program For the Purpose of:: To improve decision making, To facilitate caregiver knowledge, To improve self management, To prevent re-injury, To improve ability to perform tasks related to life management, To improve tolerance to ADL's Therapeutic Exercise to Include: Strength training, Power training, Endurance training, Balance training, Body mechanics, Postural training, Flexibilty training, Gait and locomotor training, Passive ROM, Active ROM For the Purpose of:: To decrease pain, To decrease swelling/inflammation, To increase ROM, To improve nutrient delivery to tissue, To increase oxygenation perfusion, To improve muscle performance and motor function, To improve ability to perform ADL's, To improve gait and locomotor functions, To improve health of tissue, To decrease soft tissue restriction, To increase flexibility/ROM, To improve endurance, To improve balance Manual Therapy Techniques to Include: Mobilization, Passive ROM, Functional dry needling, Soft tissue mobilization For the Purpose of:: To decrease pain, To decrease swelling/inflammation, To increase ROM, To improve nutrient delivery to tissue, To increase oxygenation perfusion TENS: Yes Cryotherapy (ice pack, ice massage): Yes For the Purpose of:: To decrease pain, To decrease swelling/inflammation, To increase ROM, To improve nutrient delivery to tissue Thank you for the opportunity to evaluate your patient. For Medicare and Medicare HMO plans, please review the plan of care and approve it. It will need to be FAXED BACK to us at [phone] for Medicare purposes. For Medicare only, by signing this I certify the plan of care. Please let me know if there are questions or concerns regarding this plan of care. Physician Signature: Date:
== END 2020-04-26 19:00 | disposition home or self-care (01) ==
LOC: PT 12:31
PROVIDERS: PCP Nurse Practitioner Family; Referring Provider Orthopaedic Surgery; Visit Provider Orthopaedic Surgery
DX: S83.411D Sprain of medial collateral ligament of right knee, subsequent encounter (principal)
CPT/HCPCS: 97110; 97161

== ENCOUNTER → 2020-08-08 15:51 | Outpatient (CLI) | payer MEDICARE, MEDICAID, SELFPAY ==
[2020-07-20 13:30] VITALS: BMI 41.5
--- NOTE | 2020-08-08 15:53 | MRI_ITS ---
STUDY: MRI RIGHT KNEE REASON FOR EXAM: Medial and posterior right knee pain, right knee injury from a fall 5 months ago. TECHNIQUE: Standardized fat and water weighted pulse sequences were obtained in all 3 orthogonal planes. COMPARISON: Radiographs 04/06/2020. FINDINGS: Normal medial meniscus. Normal hyaline cartilage of the medial femorotibial compartment. Normal medial femoral condyle and tibial plateau. Normal medial collateral ligamentous complex (MCL). Normal distal semimembranosus, gracilis and semitendinosus tendons. Normal lateral meniscus. Normal hyaline cartilage of the lateral femorotibial compartment. Normal lateral femoral condyle and tibial plateau. Normal proximal tibiofibular articulation. Normal lateral collateral (fibular) ligament. Normal popliteus tendon. Normal biceps femoris tendon. Normal anterior cruciate ligament (ACL). Normal posterior cruciate ligament (PCL). Normal congruent patellofemoral articulation. Normal hyaline cartilage of the patellofemoral compartment. Normal medial and lateral patellar retinaculum. Normal visualized quadriceps tendon. Normal patellar tendon. Normal Hoffa''s fat pad. There is no joint effusion. There is no popliteal cyst. There is edema in the anterior subcutis adipose space. The otherwise visualized osseous structures are unremarkable. MRI/Lower Ext Joint Only (Routine) IMPRESSION: Edema in the anterior subcutis adipose space. Otherwise, unremarkable MRI of the right knee without demonstrated internal derangement. Electronically Signed: Brock Marquez MD at 8:22 EDT Tel , Service support ,
== END ==
PROVIDERS: PCP Nurse Practitioner Family; Referring Provider Orthopaedic Surgery; Visit Provider Orthopaedic Surgery
DX: M25.561 Pain in right knee (principal); S83.411A Sprain of medial collateral ligament of right knee, initial encounter
CPT/HCPCS: 73721

== ENCOUNTER 2020-08-25 22:15 | Emergency (ER) | payer MEDICARE, MEDICAID, SELFPAY ==
[2020-07-20 13:30] VITALS: BMI 41.5
[2020-08-25 22:16] VITALS: BP 153/88; PULSE 91; RESP 18; TEMP 36.7; O2SAT 97; BMI 47.6
--- NOTE | 2020-08-25 22:34 | EX.ED.DYSGE1 ---
HPI History of Present Illness Chief Complaint: Cold Sx Informant: patient Narrative Narrative: 45-year-old male presents with 1 week of nasal congestion cough with sputum production. States that he is on August 22 after 3 days of symptoms he went to outside hospital was prescribed an unknown antibiotic. He states that it made him worse so a couple days later he stopped taking it. He can tell me exactly what time he was in the emergency department but unfortunately he cannot tell me the medication he was on. He states that he has now developed hot and cold symptoms. He states that he felt tightness in his chest that moved to the right lung. He states it makes him uncomfortable and short of breath. He notes sinus pain. He does not have a thermometer at home. He has not been taking his medications. He states he called primary care they cant see him for a month. [facility] Medical History (Updated 08/25/20 @ 23:[address] Lorenzo Erazo DO) Diverticulitis large intestine Hypertension Myocardial infarction Home Medications albuterol sulfate [Ventolin HFA] 2 puff INHALATION Q4H PRN PRN #1 inhaler 08/25/20 [Rx Last Taken Unknown] amoxicillin-pot clavulanate 875 mg PO Q12H #20 tablet 08/25/20 [Rx Last Taken Unknown] prednisone 60 mg PO DAILY #15 tablet 08/25/20 [Rx Last Taken Unknown] Allergy/AdvReac Type Severity Reaction Status Date / Time acetaminophen [From Vicodin] Allergy Rash Verified 08/25/20 22:18 codeine Allergy Anaphylaxis Verified 08/25/20 22:18 hydrocodone bitartrate Allergy Rash Verified 08/25/20 22:18 [From Vicodin] latex Allergy Swelling Verified 08/25/20 22:18 ondansetron AdvReac Nausea Verified 08/25/20 22:18 [From Zofran (as hydrochloride)] Social History (Updated 08/25/20 @ 22:[address] Lorenzo Erazo DO) Smoking Status: Never smoker substance use type: does not use ROS ROS ED Constitutional Constitutional ED: Reports chills and subjective; Denies weight loss Eyes Eyes: Denies change in vision or diplopia ENT ENT ED: Reports rhinorrhea; Denies ear pain or sore throat Cardiovascular Cardiovascular: Reports chest pain; Denies orthopnea, palpitations or racing heartbeat Respiratory/Chest Respiratory/Chest: Reports cough, dyspnea and sputum; Denies orthopnea Gastrointestinal Gastrointestinal: Denies abdominal pain, diarrhea, nausea or vomiting Genitourinary Genitourinary ED: Denies dysuria, hematuria or urinary frequency Musculoskeletal Musculoskeletal: Denies arthralgias or myalgias Integumentary Denies abscess or rash Neurologic Neurologic: Denies headache(s) or weakness Psychiatric Psychiatric: Denies anxiety, depression, suicidal ideation or suicidal thoughts Endocrine Endocrinology: Denies polydipsia, polyphagia or polyuria Allergic/Immunologic Allergic/Immunologic ED: Denies mouth swelling, tongue swelling or urticaria EXAM Physical Exam Const Vital Signs: 08/25/20 22:16 08/25/20 22:43 Temperature 98.1 F Temperature Source Temporal Pulse Rate 91 Respiratory Rate 18 Respiratory Effort Normal Respiratory Pattern Normal Blood Pressure 153/88 H Blood Pressure Mean 109 Pulse Ox 97 Oxygen Delivery Method Room Air Positive well nourished, well developed and obese General Appearance ED: well developed Nutritional Appearance: obese HEENT Reports normocephalic, head/scalp atraumatic and moist mucous membranes HEENT Narrative: Turbinate edema clear rhinorrhea Eyes PERRL and EOMs intact bilaterally Neck no lymphadenopathy, supple and no JVD Resp normal respiratory effort and clear to auscultation bilaterally Cardio regular rate, regular rhythm and no murmurs GI normal to inspection, nondistended, normoactive bowel sounds and non-tender Palpation: soft Back/Spine no CVA tenderness and normal ROM Extremity normal to inspection General Extremety ED: Negative for edema General Extremity: Negative for edema Neuro oriented x3 and CN's II-XII intact bilaterally Sensorium / Orientation: alert Motor Exam: strength 5/5 throughout Psych mental status grossly normal Mood & Affect: Negative for depressed or tearful Skin no rashes or lesions noted and no wounds MDM MDM MDM Narrative Medical decision making narrative: My interpretation of the plain film of the chest x-ray is no acute process. The patient's Covid test is negative. In the right for the patient to have Augmentin, albuterol MDI and a brief course of prednisone. Radiography Diagnostic Testing: Radiology Impression Chest X-Ray 08/25/20 22:40 IMPRESSION: No acute cardiopulmonary findings or changes. Chronic blunting left costophrenic angle. Electronically Signed: Celine Espinoza MD at 23:03 EDT , Service support , Discharge Plan Triage Chief Complaint: Cold Sx ED Provider: Lorenzo Erazo Dx/Rx/DC Orders Clinical Impression: Sinusitis, Bronchitis Instructions: ED Bronchitis with Wheezing (Adult), ED Sinusitis (Antibiotic Treatment) Prescriptions: New prednisone 20 MG tablet 60 mg PO DAILY Qty: 15 RF: 0 albuterol sulfate [Ventolin HFA] 1 INHALER inhaler 2 puff inhalation Q4H PRN PRN (Reason: Wheezing) Qty: 1 RF: 0 amoxicillin-pot clavulanate [amoxicillin-pot clavulanate] 875 MG tablet 875 mg PO Q12H Qty: 20 RF: 0 Primary Care Provider: Yudith Wilson NP Referrals: Yudith Wilson NP, [employer] MANAGER-C [Primary Care Provider] - 1 Week if not improving Disposition Disposition: Home, self care
--- NOTE | 2020-08-25 22:40 | RAD_ITS ---
STUDY: X-RAY CHEST REASON FOR EXAM: Male, 45 years old. cough TECHNIQUE: 1 view COMPARISON: Prior chest radiograph of 08/13/2019 FINDINGS: The lungs are clear and expanded. Chronic mild blunting of the left costophrenic angle. Normal size heart. Normal mediastinum and cornelia. Normal visualized pulmonary arteries. Normal visualized aortic arch and descending thoracic aorta. Normal visualized thoracic spine. Normal visualized ribs, clavicles, and shoulders. There is no demonstrated abnormality of the visualized soft tissue structures of the upper abdomen. RAD/Chest 1 View (Portable) IMPRESSION: No acute cardiopulmonary findings or changes. Chronic blunting left costophrenic angle. Electronically Signed: Celine Espinoza MD at 23:03 EDT , Service support ,
[2020-08-25] MEDS: Amox/Clavulanate 875 MG Tablet PO (23:56)
== END 2020-08-25 23:57 | disposition home or self-care (01) ==
PROVIDERS: Emergency Provider Emergency Medicine; PCP Nurse Practitioner Family
DX: J32.9 Chronic sinusitis, unspecified (principal); J40 Bronchitis, not specified as acute or chronic; E66.9 Obesity, unspecified; I10 Essential (primary) hypertension; I25.2 Old myocardial infarction; Z91.14 Patient's other noncompliance with medication regimen; Z79.52 Long term (current) use of systemic steroids; Z79.899 Other long term (current) drug therapy
CPT/HCPCS: 71045; 87426; 99283

== ENCOUNTER 2020-10-31 19:24 | Emergency (ER) | payer MEDICARE, MEDICAID, SELFPAY ==
[2020-09-29 13:50] VITALS: BMI 47.6
[2020-10-31 19:25] VITALS: BP 148/88; PULSE 86; RESP 15; TEMP 36.6; O2SAT 100; BMI 41.5
--- NOTE | 2020-10-31 20:06 | ED.RN ---
PT HAD LEFT AND THEN RETURN QUITE SOME TIME KATIE. PT WAS PLACED AT THE BACK OF THE WAITING LINE
--- NOTE | 2020-10-31 22:03 | EDS_ITS ---
HPI History of Present Illness Chief Complaint: Back Informant: patient Onset/Context/Timing Onset: Days Context: Gradual Onset Location: Lumbar Current Severity: Moderate Maximum Severity: Moderate Worsened by: improves with Movement Associated Symptoms Associated Symptoms: Radiation to Right Leg and Radiation to Left Leg; Negative for Tingling, Urinary Retention and Urinary Incontinence Narrative Narrative: Patient present secondary low back pain. Patient reports low back pain for the past 2 days or so. He denies any specific injury but has had problems with his back before. He states pain will radiate down both legs. Pain is worse with movement. He denies taking anything at home for pain. He was previously prescribed Belviq but states he is no longer on that. [facility] Medical History Diverticulitis large intestine Hypertension Myocardial infarction Home Medications meloxicam 15 mg tablet 15 mg PO DAILY #30 tab 09/29/20 [Rx Last Taken Unknown] cyclobenzaprine 10 mg PO BID PRN #10 tab 10/31/20 [Rx Last Taken Unknown] naproxen [Naprosyn] 500 mg PO BID PRN #20 tab 10/31/20 [Rx Last Taken Unknown] oxycodone 5 mg PO Q6H PRN 3 Days #10 tab 10/31/20 [Rx Last Taken Unknown] prednisone 60 mg PO DAILY #15 tab 10/31/20 [Rx Last Taken Unknown] Allergy/AdvReac Type Severity Reaction Status Date / Time acetaminophen [From Vicodin] Allergy Rash Verified 10/31/20 19:27 codeine Allergy Anaphylaxis Verified 10/31/20 19:27 hydrocodone bitartrate Allergy Rash Verified 10/31/20 19:27 [From Vicodin] latex Allergy Swelling Verified 10/31/20 19:27 ondansetron AdvReac Nausea Verified 10/31/20 19:27 [From Zofran (as hydrochloride)] Social History Smoking Status: Never smoker substance use type: does not use ROS ROS ED Constitutional Constitutional ED: Denies chills or fever(s) Eyes Eyes: Denies change in vision ENT ENT ED: Denies sore throat Cardiovascular Cardiovascular: Denies chest pain Respiratory/Chest Respiratory/Chest: Denies cough or dyspnea Gastrointestinal Gastrointestinal: Denies abdominal pain, diarrhea, nausea or vomiting Genitourinary Genitourinary ED: Denies dysuria Musculoskeletal Musculoskeletal: Reports back pain Integumentary Denies rash Neurologic Neurologic: Denies headache(s), paresthesias or weakness Psychiatric Psychiatric: Denies anxiety or depression Allergic/Immunologic Allergic/Immunologic ED: Denies urticaria EXAM Physical Exam Const Vital Signs: 10/31/20 19:25 Temperature 97.8 F Temperature Source Temporal Pulse Rate 86 Respiratory Rate 15 Blood Pressure 148/88 H Blood Pressure Mean 108 Pulse Ox 100 Oxygen Delivery Method Room Air Positive well nourished and well developed General Appearance ED: well developed HEENT Reports normocephalic and head/scalp atraumatic Eyes PERRL and EOMs intact bilaterally Neck supple Chest Wall inspection of chest normal and palpation of chest normal Resp normal respiratory effort and clear to auscultation bilaterally Cardio regular rate and regular rhythm GI normal to inspection, nondistended, normoactive bowel sounds Palpation: soft Back/Spine no CVA tenderness and normal to inspection Back/Spine Narrative: Reproducible tenderness over the low lumbar midline and paraspinal muscles bilaterally. No overlying skin change. Extremity normal to inspection Neuro oriented x3 and no sensory deficits noted Sensorium / Orientation: alert Motor Exam: strength 5/5 throughout Psych mental status grossly normal Skin no rashes or lesions noted MDM [facility] Treatment and Re-Evaluation Comments:: Patient is treated with Flexeril, Naprosyn, oxycodone, and prednisone. First dose was provided here. [facility] report was obtained prior to prescriptions. Discharge Plan Triage Chief Complaint: Back ED Provider: Azalea Sánchez Dx/Rx/DC Orders Clinical Impression: Back pain Instructions: ED Back Pain (Acute or Chronic) Prescriptions: New cyclobenzaprine 10 mg tablet 10 mg PO BID PRN (Reason: muscle spasm) Qty: 10 RF: 0 prednisone 20 MG tablet 60 mg PO DAILY Qty: 15 RF: 0 naproxen [Naprosyn] 500 mg tablet 500 mg PO BID PRN (Reason: pain) Qty: 20 RF: 0 oxycodone 5 mg tablet 5 mg PO Q6H PRN (Reason: pain) 3 Days Qty: 10 RF: 0 No Action meloxicam [Mobic] 15 mg tablet 15 mg PO DAILY Qty: 30 RF: 0 Primary Care Provider: Yudith Wilson NP Referrals: Yudith Wilson NP, [employer]OMETER TECHNICIAN-C [Primary Care Provider] - 1 Week if not improving Disposition Disposition: Home, Self Care Discharge Date/Time: 10/31/20 22:18
[2020-10-31] MEDS: oxyCODONE 5 MG Tablet PO (22:13)
[2020-10-31] MEDS: cycloBENZAPRine HCl 10 MG Tablet PO (22:13)
[2020-10-31] MEDS: Naproxen 500 MG Tablet PO (22:13)
== END 2020-10-31 22:18 | disposition home or self-care (01) ==
LOC: ED 22:14
PROVIDERS: Emergency Provider Emergency Medicine; PCP Nurse Practitioner Family
DX: M54.5 Low back pain (principal); I10 Essential (primary) hypertension; I25.2 Old myocardial infarction; Z79.1 Long term (current) use of non-steroidal anti-inflammatories (NSAID); Z79.52 Long term (current) use of systemic steroids; Z79.899 Other long term (current) drug therapy
CPT/HCPCS: 99283

== ENCOUNTER 2021-01-05 21:31 | Emergency (ER) | payer MEDICARE, MEDICAID, SELFPAY ==
[2021-01-05 21:31] VITALS: BP 189/103; PULSE 99; RESP 20; TEMP 36.7; O2SAT 99; BMI 45.8
[2021-01-05 22:22] LABS: Absolute Lymphocyte Count 3.64 X10^3/uL (0.83-4.51); Absolute Neutrophil Count 7.4 X10^3/uL (2.0-7.7); Basophil# 0.06 X10^3/uL; Basophil% 0.5 % (0-1); Eosinophil# 0.45 X10^3/uL; Eosinophils% 3.7 % (0-5); Hematocrit 41.8 % (40-54); Hemoglobin 13.7 g/dL (13.0-16.5); Lymphocyte # 3.64 X10^3/ul (0.83-4.51); Lymphocyte % 29.8 % (19-41); Mean Corp Hgb Conc 32.8 g/dL (32-36); Mean Corpuscular Hgb 26.8 pg (27.0-32.0); Mean Corpuscular Volume 81.6 fL (80-94); Mean Platelet Vol. 9.2 fl (6.2-12.0); Monocyte# 0.57 X10^3/uL; Monocyte% 4.7 % (0-10); NRBC Flagged by Analyzer 0 % (0-5); Neutrophil # 7.43 X10^3/uL (2.7-7.7); Neutrophil % 60.7 % (47-70); Platelet Count 437 K/mm3 (150-450); RBC Distribution Width CV 13.7 % (11.6-14.6); RBC Distribution Width SD 40.9 fl (35.1-43.9); Red Blood Count 5.12 M/mm3 (4.6-6.2); White Blood Count 12.2 K/mm3 (4.4-11.0)
--- NOTE | 2021-01-05 22:34 | EDS_ITS ---
HPI HPI - GI History of Present Illness Chief Complaint: Abd Pain Narrative Narrative: 45-year-old male presenting with right mid abdomen pain. Patient states this is present for 2 weeks. He was seen in [place] 2 weeks ago and states he was told he had a hernia. He was given follow-up with the surgeon. Patient states he does not believe he can make it until then because of the pain. He denies fever. He states he still having bowel movements. He does ad raul to increased urination. He does not have dysuria. Patient has not been vomiting and states that he ate earlier today. Patient has history of surgical repair diverticulitis, cholecystectomy, appendectomy. [facility] Medical History Diverticulitis large intestine Hypertension Myocardial infarction Home Medications meloxicam 15 mg tablet 15 mg PO DAILY #30 tab 09/29/20 [Rx Last Taken Unknown] cyclobenzaprine 10 mg PO BID PRN #10 tab 10/31/20 [Rx Last Taken Unknown] naproxen [Naprosyn] 500 mg PO BID PRN #20 tab 10/31/20 [Rx Last Taken Unknown] oxycodone 5 mg PO Q6H PRN 3 Days #10 tab 10/31/20 [Rx Last Taken Unknown] prednisone 60 mg PO DAILY #15 tab 10/31/20 [Rx Last Taken Unknown] Allergy/AdvReac Type Severity Reaction Status Date / Time acetaminophen [From Vicodin] Allergy Rash Verified 10/31/20 19:27 codeine Allergy Anaphylaxis Verified 10/31/20 19:27 hydrocodone bitartrate Allergy Rash Verified 10/31/20 19:27 [From Vicodin] latex Allergy Swelling Verified 10/31/20 19:27 ondansetron AdvReac Nausea Verified 10/31/20 19:27 [From Zofran (as hydrochloride)] Social History Smoking Status: Never smoker substance use type: does not use ROS ROS ED Constitutional Constitutional ED: Denies chills or fever(s) ENT ENT ED: Denies rhinorrhea or sore throat Cardiovascular Cardiovascular: Denies chest pain or palpitations Respiratory/Chest Respiratory/Chest: Denies cough or dyspnea Gastrointestinal Gastrointestinal: Reports abdominal pain; Denies constipation, diarrhea, nausea or vomiting Genitourinary Genitourinary ED: Denies dysuria or hematuria Musculoskeletal Musculoskeletal: Denies arthralgias or myalgias Integumentary Denies abscess or rash Neurologic Neurologic: Denies headache(s) EXAM Physical Exam Const Vital Signs: 01/05/21 21:31 01/06/21 00:15 Temperature 98.1 F Temperature Source Temporal Pulse Rate 99 102 H Respiratory Rate 20 H 16 Blood Pressure 189/103 H 126/61 H Blood Pressure Mean 131 82 Pulse Ox 99 94 Oxygen Delivery Method Room Air Room Air Positive obese General Appearance ED: NAD; Negative for pallor Nutritional Appearance: obese HEENT Reports moist mucous membranes normocephalic and atraumatic Eyes PERRL and EOMs intact bilaterally Resp normal respiratory effort and clear to auscultation bilaterally Cardio regular rate and regular rhythm GI GI Narrative: Tenderness to palpation in the right side of the abdomen between the right lower and right upper quadrant. No masses palpated. Does not appear to be a hernia. Extremity full ROM General Extremety ED: Negative for edema General Extremity: Negative for edema Neuro Sensorium / Orientation: alert, oriented to person, oriented to place and bela ented to time Psych mental status grossly normal Skin General Skin Exam: Negative for jaundice or pallor Rashes: no rashes MDM MDM MDM Narrative Medical decision making narrative: Patient presenting with abdominal pain. He was told he has a hernia previously. I do not appreciate a hernia on examination. Patient was given morphine and lab work is obtained. His CBC shows a slight leukocytosis of 12.2 without a left shift. Renal function and electrolytes are normal. LFTs are normal with exception of an elevated alkaline phosphatase. Lipase negative. Urinalysis is negative. I obtained a CT of the abdomen pelvis with IV contrast which does not show any acute intra-abdominal process and specifically does not show a ventral wall hernia. Since patient bucky jacobson was diagnosed with hernia at outside hospital it is possible he has a hernia and is just not present on exam. He does state that when he lays backwards in a recliner he feels much better than when he stands. He has an appointment with Dr. Andersen on the who did his previous surgeries. I do believe he would benefit from an abdominal binder. He is counseled on using stool softener and try not to lift heavy objects. Patient counseled if his hernia does come out and is stuck in this position he should return to the ER for repeat evaluation. Impression: 1. Abdominal pain 2. History of ventral hernia Lab Data Labs: Laboratory Results - last 24 hr 01/05/21 01/05/21 01/05/21 22:09 22:09 22:09 WBC 12.2 H RBC 5.12 Hgb 13.7 Hct 41.8 MCV 81.6 MCH 26.8 L MCHC 32.8 RDW Std Deviation 40.9 RDW Coeff of [place] 13.7 Plt Count 437 MPV 9.2 Immature Gran % (Auto) 0.600 Neut % (Auto) 60.7 Lymph % (Auto) 29.8 [place] % (Auto) 4.7 Eos % (Auto) 3.7 Baso % (Auto) 0.5 Absolute Neuts (auto) 7.4 Absolute Lymphs (auto) 3.64 Nucleated RBC % 0 Sodium 138 Potassium 4.1 Chloride 104 Carbon Dioxide 26.0 Anion Gap 8 BUN 21 H Creatinine 1.16 Estim Creat Clear Calc 76.77 Est GFR (MDRD) Af Amer 88 Est GFR (MDRD) Non-Af 73 BUN/Creatinine Ratio 18.1 Glucose 128 H Calcium 8.9 Total Bilirubin < 0.10 L Direct Bilirubin < 0.05 AST 23 ALT 30 Alkaline Phosphatase 149 H Total Protein 7.9 Albumin 3.4 Globulin 4.5 H Lipase Urine Color Urine Clarity Urine pH Ur Specific [place] Urine Protein Urine Glucose (UA) Urine Ketones Urine Occult Blood Urine Nitrite Urine Bilirubin Urine Urobilinogen Ur Leukocyte Esterase Urine RBC Urine WBC Ur Squamous Epith Cells Urine Bacteria Urine Mucus 01/05/21 01/06/21 22:09 00:16 WBC RBC Hgb Hct MCV MCH MCHC RDW Std Deviation RDW Coeff of [place] Plt Count MPV Immature Gran % (Auto) Neut % (Auto) Lymph % (Auto) [place] % (Auto) Eos % (Auto) Baso % (Auto) Absolute Neuts (auto) Absolute Lymphs (auto) Nucleated RBC % Sodium Potassium Chloride Carbon Dioxide Anion Gap BUN Creatinine Estim Creat Clear Calc Est GFR (MDRD) Af Amer Est GFR (MDRD) Non-Af BUN/Creatinine Ratio Glucose Calcium Total Bilirubin Direct Bilirubin AST ALT Alkaline Phosphatase Total Protein Albumin Globulin Lipase 89 Urine Color Yellow Urine Clarity Clear Urine pH 5.0 Ur Specific [place] 1.025 Urine Protein 15 H Urine Glucose (UA) Normal Urine Ketones Negative Urine Occult Blood Negative Urine Nitrite Negative Urine Bilirubin Negative Urine Urobilinogen Normal Ur Leukocyte Esterase Negative Urine RBC 0 SEEN Urine WBC 0 SEEN Ur Squamous Epith Cells 0 SEEN Urine Bacteria 0 SEEN Urine Mucus 0 SEEN Radiography Diagnostic Testing: Clinical Impression(s) from Imaging Studies Abdomen/Pelvis CT 01/06/21 00:35 IMPRESSION: No acute findings. No evidence of bowel obstruction. Nonvisualized appendix, no secondary signs of acute appendicitis. Electronically Signed: Sherif Barreto DO at 1:12 EDT Tel , Service support , Discharge Plan Triage Chief Complaint: Abd Pain ED Provider: Cj Rivas Dx/Rx/DC Orders Instructions: ED Hernia (Adult) Prescriptions: No Action meloxicam [Mobic] 15 mg tablet 15 mg PO DAILY Qty: 30 RF: 0 cyclobenzaprine 10 mg tablet 10 mg PO BID PRN (Reason: muscle spasm) Qty: 10 RF: 0 prednisone 20 MG tablet 60 mg PO DAILY Qty: 15 RF: 0 naproxen [Naprosyn] 500 mg tablet 500 mg PO BID PRN (Reason: pain) Qty: 20 RF: 0 oxycodone 5 mg tablet 5 mg PO Q6H PRN (Reason: pain) 3 Days Qty: 10 RF: 0 Primary Care Provider: Care Physician,No Primary Referrals: Jason Andersen MD [STAFF PHYSICIAN] - 3-5 Days Care Physician,No Primary [Primary Care Provider] - Disposition Disposition: Home, Self Care
[2021-01-05 22:37] LABS: Anion Gap 8 (5-15); BUN 21 mg/dL (7-18); BUN/Creat Ratio 18.1 RATIO (10-20); Calcium,Total 8.9 mg/dL (8.5-10.1); Chloride 104 mmol/L (98-107); Creatinine, Serum 1.16 mg/dL (0.70-1.30); EST Glomerular Filtration Rate 73 mL/min (>60); Est Glom Filt Rate - Afr Amer 88 mL/min (>60); Estimated Creatinine Clearance 76.77 ml/min; Glucose 128 mg/dL (74-106); Potassium 4.1 mmol/L (3.5-5.1); Sodium Level 138 mmol/L (136-145)
[2021-01-05] MEDS: proMETHazine 25 MG/ML Syringe 12.5 MG IM (23:14)
[2021-01-05] MEDS: Morphine 4 MG/ML Syringe IV (23:17)
[2021-01-05 23:45] LABS: AST(SGOT) 23 U/L (15-37); Alanine Aminotransfer ALT/SGPT 30 U/L (16-61); Albumin, Serum 3.4 g/dL (3.2-5.0); Alkaline Phosphatase 149 U/L (45-117); Bilirubin, Direct < 0.05 mg/dL (0.00-0.30); Globulin 4.5 g/dL (2.2-4.2); Protein, Total 7.9 g/dL (6.4-8.2); Total Bilirubin < 0.10 mg/dL (0.20-1.00)
[2021-01-06 00:04] LABS: Lipase 89 U/L (73-393)
[2021-01-06] MEDS: HYDROmorphone 1 MG/ML Syringe IV (00:11)
[2021-01-06 00:15] VITALS: BP 126/61; PULSE 102; RESP 16; O2SAT 94
[2021-01-06 00:28] LABS: Bacteria 0 SEEN /hpf (None Seen); Mucous, Urine 0 SEEN /hpf (<or=2+); Red Blood Cells-Urine 0 SEEN /hpf (0-5); Squamous Epithelial Cells - UA 0 SEEN /hpf (0-5); White Blood Cells 0 SEEN /hpf (0-5)
[2021-01-06 00:29] LABS: Color, Urine Yellow (Yellow); Glucose, Dipstick Normal (Normal); Ketone-Dipstick Negative (Negative); Leukocyte Esterase-Dipstick Negative /ul (Negative); Nitrite-Dipstick Negative (Negative); Occult Blood-Urine Negative /ul (Negative); Protein-Dipstick 15 mg/dl (Negative); Specific Gravity, Urine 1.025 (1.002-1.030); Urine Bilirubin Dipstick Negative (Negative); Urine Clarity Clear (Clear); Urine Urobilinogen Normal (Normal)
--- NOTE | 2021-01-06 00:35 | CT_ITS ---
STUDY: CT ABDOMEN AND PELVIS WITH CONTRAST REASON FOR EXAM: Male, 45 years old. abdominal pain RADIATION DOSAGE (If Supplied By Facility): CTDIvol = ( 22.07 ) mGy, DLP = ( 1411.47 ) mGycm TECHNIQUE: Transaxial images were obtained from the dome of the diaphragm to the symphysis pubis without oral contrast. IV 100mL Isovue-370 was administered. Sagittal and coronal images were reconstructed. Individualized dose optimization techniques were used for this CT. COMPARISON: None. FINDINGS: The visualized lung bases are unremarkable. The visualized portions of the heart are within normal limits. Normal liver. There is non-visualization of the gallbladder, which may be secondary to either contraction or a prior cholecystectomy. Normal spleen. Normal pancreas. Normal bilateral adrenal glands. Normal right kidney. Normal left kidney. Normal visualized stomach. Normal small intestine. Normal colon. There is non-visualization of the appendix. Normal abdominal aorta. Normal inferior vena cava. Normal retroperitoneum. Normal urinary bladder. Normal visualized prostate gland. Normal abdominal wall. Normal osseous structures. CT/Abdomen/Pelvis W IV Cont ONLY IMPRESSION: No acute findings. No evidence of bowel obstruction. Nonvisualized appendix, no secondary signs of acute appendicitis. Electronically Signed: Sherif Barreto DO at 1:12 EDT Tel , Service support ,
[2021-01-06 01:51] VITALS: RESP 16
== END 2021-01-06 01:52 | disposition home or self-care (01) ==
PROVIDERS: Emergency Provider Student in an Organized Health Care Education/Training Program
DX: R10.9 Unspecified abdominal pain (principal); R74.8 Abnormal levels of other serum enzymes; I10 Essential (primary) hypertension; I25.2 Old myocardial infarction; Z90.49 Acquired absence of other specified parts of digestive tract; Z79.1 Long term (current) use of non-steroidal anti-inflammatories (NSAID); Z79.52 Long term (current) use of systemic steroids
CPT/HCPCS: 74177; 80048; 80076; 81001; 83690; 85025; 99283; Q9967; A4216

== ENCOUNTER 2021-01-09 01:16 | Emergency (ER) | payer MEDICARE, MEDICAID, SELFPAY ==
[2021-01-09 01:18] VITALS: BP 155/95; PULSE 107; RESP 20; TEMP 36.2; O2SAT 97; BMI 47.4
--- NOTE | 2021-01-09 02:09 | CT_ITS ---
STUDY: CT ABDOMEN AND PELVIS WITH CONTRAST REASON FOR EXAM: Male, 45 years old. Right upper quadrant abdominal pain. History of appendectomy and cholecystectomy RADIATION DOSAGE (If Supplied By Facility): CTDIvol = ( 17.08 ) mGy, DLP = ( 1315.82 ) mGycm TECHNIQUE: Transaxial images were obtained from the dome of the diaphragm to the symphysis pubis without oral contrast. IV 100mL Isovue-300 was administered. Sagittal and coronal images were reconstructed. Individualized dose optimization techniques were used for this CT. COMPARISON: 01/06/2021 FINDINGS: The visualized lung bases are unremarkable. The visualized portions of the heart are within normal limits. Normal liver. There are surgical clips in the gallbladder fossa consistent with a prior cholecystectomy. Normal spleen. Normal pancreas. Normal bilateral adrenal glands. Normal right kidney. Normal left kidney. Normal visualized stomach. Fecalized contents of the distal ileum. Otherwise normal small intestine. Normal colon. There are surgical clips in the region of the appendix consistent with a prior appendectomy. Normal abdominal aorta. Normal inferior vena cava. Normal retroperitoneum. Scattered enlarged lymph nodes throughout the small bowel mesentery with mild surrounding fat haziness. Normal urinary bladder. Normal visualized prostate gland. Small fat-containing ventral hernias without finding of incarceration. Thoracolumbar vertebral alignment is maintained. CT/Abdomen/Pelvis W IV Cont ONLY IMPRESSION: Finding suggests mesenteric adenitis. Fecalized contents of the distal ileum suggest delayed transit. Electronically Signed: Oj Matthew MD at 3:27 EDT Tel , Service support ,
[2021-01-09] MEDS: HYDROmorphone 1 MG/ML Syringe IV ×2 (02:24→03:25)
[2021-01-09] MEDS: proMETHazine 25 MG/ML Syringe 12.5 MG IM (02:24)
[2021-01-09 02:32] LABS: Absolute Lymphocyte Count 3.35 X10^3/uL (0.83-4.51); Absolute Neutrophil Count 5.5 X10^3/uL (2.0-7.7); Basophil# 0.06 X10^3/uL; Basophil% 0.6 % (0-1); Eosinophil# 0.41 X10^3/uL; Eosinophils% 4.1 % (0-5); Hematocrit 40.5 % (40-54); Hemoglobin 13.2 g/dL (13.0-16.5); Lymphocyte # 3.35 X10^3/ul (0.83-4.51); Lymphocyte % 33.3 % (19-41); Mean Corp Hgb Conc 32.6 g/dL (32-36); Mean Corpuscular Hgb 26.4 pg (27.0-32.0); Mean Platelet Vol. 9.2 fl (6.2-12.0); Monocyte# 0.68 X10^3/uL; Monocyte% 6.8 % (0-10); NRBC Flagged by Analyzer 0 % (0-5); Neutrophil % 54.7 % (47-70); Platelet Count 387 K/mm3 (150-450); RBC Distribution Width CV 13.8 % (11.6-14.6); RBC Distribution Width SD 40.6 fl (35.1-43.9); White Blood Count 10.1 K/mm3 (4.4-11.0)
[2021-01-09 02:49] LABS: ALB/GLOB Ratio 0.7 RATIO (0.9-2.4); AST(SGOT) 32 U/L (15-37); Alanine Aminotransfer ALT/SGPT 51 U/L (16-61); Albumin, Serum 3.2 g/dL (3.2-5.0); Alkaline Phosphatase 148 U/L (45-117); Anion Gap 5 (5-15); BUN 22 mg/dL (7-18); BUN/Creat Ratio 21.6 RATIO (10-20); Calcium,Total 8.7 mg/dL (8.5-10.1); Chloride 105 mmol/L (98-107); Creatinine, Serum 1.02 mg/dL (0.70-1.30); EST Glomerular Filtration Rate 85 mL/min (>60); Est Glom Filt Rate - Afr Amer 102 mL/min (>60); Estimated Creatinine Clearance 87.31 ml/min; Globulin 4.5 g/dL (2.2-4.2); Glucose 104 mg/dL (74-106); Lipase 79 U/L (73-393); Potassium 3.9 mmol/L (3.5-5.1); Protein, Total 7.7 g/dL (6.4-8.2); Sodium Level 137 mmol/L (136-145)
[2021-01-09] MEDS: 0.9% Normal Saline 1,000 ML 999 ML IV (03:24)
--- NOTE | 2021-01-09 03:58 | EDS_ITS ---
HPI HPI - GI History of Present Illness Chief Complaint: Abd Pain Narrative Narrative: 45-year-old male presenting with abdominal pain. He states is mostly on the right side of his abdomen. He denies vomiting but has some nausea. He states he is making stool and urine. Denies urinary symptoms. Patient not had a fever. Patient has had 2 CAT scans of his abdomen and pelvis. Previously he was seen in [place] and had a CAT scan of his abdomen pelvis performed which he says was concerning for a hernia. He was sent for follow-up with a general surgeon and has this follow-up tomorrow. Patient states that his pain has come and gone and now is persistent. He thinks he has a hernia that is nonreducible. He does not have a mass sticking out of his abdomen however. Patient has had multiple abdominal surgeries. He does not have a gallbladder or appendix. PFSH PFSH Medical History Diverticulitis large intestine Hypertension Myocardial infarction Home Medications ondansetron 4 mg PO Q8H PRN PRN #14 tab 01/09/21 [Rx Last Taken Unknown] oxycodone-acetaminophen [Percocet] 1 tab PO Q6H 3 Days #12 tab 01/09/21 [Rx Last Taken Unknown] Allergy/AdvReac Type Severity Reaction Status Date / Time acetaminophen [From Vicodin] Allergy Rash Verified 01/09/21 01:17 codeine Allergy Anaphylaxis Verified 01/09/21 01:17 hydrocodone bitartrate Allergy Rash Verified 01/09/21 01:17 [From Vicodin] latex Allergy Swelling Verified 01/09/21 01:17 ondansetron AdvReac Nausea Verified 01/09/21 01:17 [From Zofran (as hydrochloride)] Social History Smoking Status: Never smoker substance use type: does not use ROS ROS ED Constitutional Constitutional ED: Denies chills or fever(s) ENT ENT ED: Denies rhinorrhea or sore throat Cardiovascular Cardiovascular: Denies chest pain or palpitations Respiratory/Chest Respiratory/Chest: Denies cough or dyspnea Gastrointestinal Gastrointestinal: Reports abdominal pain and nausea; Denies constipation, diarrhea or vomiting Genitourinary Genitourinary ED: Denies dysuria or hematuria Musculoskeletal Musculoskeletal: Denies arthralgias or myalgias Integumentary Denies Abrasions or rash Neurologic Neurologic: Denies headache(s) or paresthesias EXAM Physical Exam Const Vital Signs: 01/09/21 01:18 Temperature 97.1 F L Temperature Source Temporal Pulse Rate 107 H Respiratory Rate 20 H Blood Pressure 155/95 H Blood Pressure Mean 115 Pulse Ox 97 Oxygen Delivery Method Room Air Positive obese General Appearance ED: NAD; Negative for pallor Nutritional Appearance: obese HEENT Reports normocephalic, head/scalp atraumatic and moist mucous membranes normocephalic and atraumatic Eyes PERRL and EOMs intact bilaterally Neck no lymphadenopathy and supple Chest Wall inspection of chest normal and palpation of chest normal Resp normal respiratory effort and clear to auscultation bilaterally Auscultation: Negative for rales, rhonchi or wheezes Cardio regular rate and regular rhythm GI normal to inspection, nondistended, normoactive bowel sounds GI Narrative: Tender on the right upper and lower quadrants. Abdomen nonperitoneal. No hernia is appreciated. Narrative: Deferred Back/Spine no CVA tenderness Extremity normal to inspection General Extremety ED: Negative for edema or tenderness General Extremity: Negative for edema Neuro oriented x3 and CN's II-XII intact bilaterally Sensorium / Orientation: alert Motor Exam: strength 5/5 throughout Psych mental status grossly normal Attitude: No agitated Skin no rashes or lesions noted and no wounds General Skin Exam: Negative for jaundice or pallor MDM MDM MDM Narrative Medical decision making narrative: 45-year-old male presenting with abdominal pain he states that his initial CT done in [place] had a hernia on it. [facility] personally saw him just a few days ago and had a CT of the abdomen pelvis which did not show any sort of hernia. At that point there were no acute intra- abdominal abnormalities. Patient was given IV fluids, Dilaudid, Phenergan. Blood work was obtained and his CBC and CMP are unremarkable with exception of an elevated alkaline phosphatase at 148. His electrolytes are normal. I did obtain a CT of the abdomen pelvis with IV contrast and this time it shows findings suggesting of mesenteric adenitis and likely some delayed transit of fecal contents. Patient was counseled on findings. He has a follow-up with his general surgeon. I will give him Phenergan and [place] for home. Patient is counseled to make follow-up with his general surgeon and his primary care. He is given return precautions. Impression: 1. Mesenteric adenitis Lab Data Attestation: I reviewed the patient's lab results. Labs: Laboratory Results - last 24 hr 01/09/21 01/09/21 02:20 02:20 WBC 10.1 RBC 5.00 Hgb 13.2 Hct 40.5 MCV 81.0 MCH 26.4 L MCHC 32.6 RDW Std Deviation 40.6 RDW Coeff of [place] 13.8 Plt Count 387 MPV 9.2 Immature Gran % (Auto) 0.500 Neut % (Auto) 54.7 Lymph % (Auto) 33.3 [place] % (Auto) 6.8 Eos % (Auto) 4.1 Baso % (Auto) 0.6 Absolute Neuts (auto) 5.5 Absolute Lymphs (auto) 3.35 Nucleated RBC % 0 Sodium 137 Potassium 3.9 Chloride 105 Carbon Dioxide 27.0 Anion Gap 5 BUN 22 H Creatinine 1.02 Estim Creat Clear Calc 87.31 Est GFR (MDRD) Af Amer 102 Est GFR (MDRD) Non-Af 85 BUN/Creatinine Ratio 21.6 H Glucose 104 Calcium 8.7 Total Bilirubin 0.20 AST 32 ALT 51 Alkaline Phosphatase 148 H Total Protein 7.7 Albumin 3.2 Globulin 4.5 H Albumin/Globulin Ratio 0.7 L Lipase 79 Radiography Diagnostic Testing: Clinical Impression(s) from Imaging Studies Abdomen/Pelvis CT 01/09/21 02:09 IMPRESSION: Finding suggests mesenteric adenitis. Fecalized contents of the distal ileum suggest delayed transit. Electronically Signed: Oj Matthew MD at 3:27 EDT Tel , Service support , Discharge Plan Triage Chief Complaint: Abd Pain ED Provider: Cj Rivas Dx/Rx/DC Orders Instructions: ED Constipation (Adult), ED Adenitis, Mesenteric Prescriptions: New oxycodone-acetaminophen [Percocet] 5-325 mg tablet 1 tab PO Q6H 3 Days Qty: 12 RF: 0 ondansetron 4 mg tablet,disintegrating 4 mg PO Q8H PRN PRN (Reason: Nausea) Qty: 14 RF: 0 Primary Care Provider: SteveYudith rees NP Referrals: Yudith Wilson NP, [facility] [Primary Care Provider] - Disposition Disposition: Home, Self Care
[2021-01-09] MEDS: oxyCODONE 5 MG Tablet PO (04:14)
[2021-01-09] MEDS: Magnesium Citrate 300 ML PO (04:17)
[2021-01-09 04:19] VITALS: PULSE 93; O2SAT 95
== END 2021-01-09 04:22 | disposition home or self-care (01) ==
PROVIDERS: Emergency Provider Student in an Organized Health Care Education/Training Program; PCP Nurse Practitioner Family
DX: I88.0 Nonspecific mesenteric lymphadenitis (principal); I25.2 Old myocardial infarction; E66.9 Obesity, unspecified
CPT/HCPCS: 74177; 80053; 83690; 85025; 96361; 96372; 96374; 96376; 99284; J7030; Q9967; A4216

== ENCOUNTER 2021-01-16 21:41 | Emergency (ER) | payer MEDICARE, MEDICAID, SELFPAY ==
[2021-01-16 21:42] VITALS: BP 150/80; PULSE 117; RESP 18; TEMP 37.3; O2SAT 95; BMI 44.6
[2021-01-16 21:50] VITALS: TEMP 37.2
[2021-01-16 21:51] VITALS: BP 150/80; PULSE 88; RESP 17; TEMP 37.2; O2SAT 98
--- NOTE | 2021-01-16 22:09 | CT_ITS ---
HISTORY: abd pain -- s/p egd w/ biopsies today EXAMINATION: CT Abdomen And Pelvis W/O Contrast Injection TECHNIQUE: Multiple axial images were obtained of the abdomen and pelvis without oral or IV contrast. A radiation dose optimization technique was used for this scan. IV Contrast dosage and agent: None. Oral contrast: None. COMPARISON: 01/09/21 FINDINGS: LOWER CHEST: Lung bases are clear. No cardiomegaly or pericardial effusion. LIVER: Homogeneous. No focal mass. GALLBLADDER AND BILIARY TREE: Cholecystectomy. No intra- or extrahepatic biliary ductal dilation. PANCREAS: No focal cystic or solid mass. SPLEEN: Normal size without focal cystic or solid mass. ADRENAL GLANDS: No nodules. KIDNEYS AND URETERS: Normal renal size and position. No hydronephrosis or nephrolithiasis. PERITONEUM: No ascites or free air. BOWEL: No evidence of acute appendicitis. No stomach or bowel distension. No focal inflammatory bowel wall changes. LYMPH NODES: No enlarged mesenteric or retroperitoneal lymph nodes. VESSELS: Aorta is non-dilated. URINARY BLADDER: Nondistended. REPRODUCTIVE ORGANS: No pelvic masses. ABDOMINAL WALL: Small fat-containing supraumbilical hernia, larger fat-containing umbilical hernia. BONES: No acute or aggressive abnormality. CT/Abdomen/Pelvis without Cont IMPRESSION: No acute findings in the abdomen or pelvis. Individualized dose optimization techniques were used for this CT. at 2326 Reported and signed by: Christ Bailey MD Electronically Signed: Christ Bailey MD at 23:25 EDT Tel , Service support ,
[2021-01-16] MEDS: 0.9% Normal Saline 1,000 ML 1000 ML IV (22:23)
--- NOTE | 2021-01-16 22:23 | ED.VIS.GI ---
HPI HPI - GI History of Present Illness Chief Complaint: Abd Pain Informant: patient Narrative Narrative: Patient presents with increasing generalized abdominal pain after EGD with biopsies today by Dr. Andersen. Reports been having pain and vomiting for 3 weeks. He is on a PPI. He states for scheduled biopsy today this morning discharged home. States pain is increasing from home, vomiting x4, there was mild speck of blood. No diarrhea. History of cholecystectomy and appendectomy in the past. He has had diverticulitis in the past. He brought the report and reviewed,. To have moderate esophagitis, there is noted biopsies performed of the esophagus and the gastrum. There is a normal gastrum. He denies alcohol or any illicit drug use. No history of pancreatitis. Prior similar symptoms: Yes PFSH PFSH Medical History Diverticulitis large intestine Hypertension Myocardial infarction Home Medications sucralfate [Carafate] 1 g PO 4X/DAY #60 tab 01/17/21 [Rx Last Taken Unknown] Allergy/AdvReac Type Severity Reaction Status Date / Time acetaminophen [From Vicodin] Allergy Rash Verified 01/09/21 01:17 codeine Allergy Anaphylaxis Verified 01/09/21 01:17 hydrocodone bitartrate Allergy Rash Verified 01/09/21 01:17 [From Vicodin] latex Allergy Swelling Verified 01/09/21 01:17 ondansetron AdvReac Nausea Verified 01/09/21 01:17 [From Zofran (as hydrochloride)] Social History Smoking Status: Never smoker substance use type: does not use ROS ROS ED Constitutional Constitutional ED: Denies chills, fever(s) or sweats Eyes Eyes: Denies change in vision ENT ENT ED: Denies dysphagia or sore throat Cardiovascular Cardiovascular: Denies chest pain, leg edema, palpitations or racing heartbeat Respiratory/Chest Respiratory/Chest: Denies cough, dyspnea or dyspnea on exertion Gastrointestinal Gastrointestinal: Reports abdominal pain, nausea and vomiting; Denies diarrhea Genitourinary Genitourinary ED: Denies dysuria, hematuria or urinary frequency Musculoskeletal Musculoskeletal: Denies back pain, extremity pain or neck pain Integumentary Denies rash or wounds Neurologic Neurologic: Denies headache(s), paresthesias or weakness EXAM Physical Exam Const Vital Signs: 01/16/21 21:42 01/16/21 21:50 01/16/21 21:51 Temperature 99.2 F H 99.0 F 99.0 F Temperature Source Temporal Oral Oral Pulse Rate 117 H 88 Respiratory Rate 18 17 Blood Pressure 150/80 H 150/80 H Blood Pressure Mean 103 103 Pulse Ox 95 98 Oxygen Delivery Method Room Air Room Air 01/17/21 00:07 Temperature Temperature Source Pulse Rate 62 Respiratory Rate 15 Blood Pressure 138/74 H Blood Pressure Mean Pulse Ox 97 Oxygen Delivery Method Uncomfortable, nontoxic Positive well nourished, well developed and obese General Appearance ED: well developed Nutritional Appearance: obese HEENT Reports moist mucous membranes normocephalic and atraumatic Eyes PERRL, EOMs intact bilaterally and conjunctivae normal General Eye ED: Yes normal appearance of both eyes Neck no lymphadenopathy and supple General: Negative for tenderness Chest Wall Chest: Negative for tenderness Resp normal respiratory effort and normal air movement Effort and Inspection: symmetric chest movement; Negative for respiratory distress Cardio regular rate, regular rhythm and no murmurs Peripheral Pulses: pulses 2+ throughout GI normal to inspection, nondistended, normoactive bowel sounds GI Narrative: Generalized abdominal pain. Distention due to obesity. Palpation: Negative for guarding or rebound tenderness present Back/Spine no CVA tenderness and no thoracic nor lumbar tenderness Extremity normal to inspection General Extremety ED: Negative for edema or tenderness General Extremity: Negative for edema Neuro oriented x3 and no sensory deficits noted Sensorium / Orientation: awake and alert Skin no rashes or lesions noted and no wounds MDM MDM MDM Narrative Medical decision making narrative: Patient post EGD with biopsies increasing abdominal pain. Abdominal labs are obtained he is treated with Zofran Pepcid fentanyl. CT abdomen pelvis obtained to rule out any perforations or postprocedure complications. This returned negative. Added GI cocktail with improving symptoms. Patient does confirm he is on a PPI daily. He is not on Carafate. With his esophagitis findings from his report, we will add Carafate 4 times a day for the next 2 weeks. He will keep his follow-up with his surgeon in 2 days for further evaluation discussion. All questions were answered. Lab Data Attestation: I reviewed the patient's lab results. Labs: Laboratory Results - last 24 hr 01/16/21 01/16/21 22:20 22:20 WBC 8.1 RBC 5.30 Hgb 14.0 Hct 42.8 MCV 80.8 MCH 26.4 L MCHC 32.7 RDW Std Deviation 40.9 RDW Coeff of Mirlande 13.9 Plt Count 316 MPV 8.9 Immature Gran % (Auto) 0.400 Neut % (Auto) 73.3 H Lymph % (Auto) 16.5 L Hudspeth % (Auto) 6.5 Eos % (Auto) 2.7 Baso % (Auto) 0.6 Absolute Neuts (auto) 5.9 Absolute Lymphs (auto) 1.33 Nucleated RBC % 0 Sodium 137 Potassium 3.7 Chloride 101 Carbon Dioxide 27.0 Anion Gap 9 BUN 16 Creatinine 1.06 Estim Creat Clear Calc 84.01 Est GFR (MDRD) Af Amer 98 Est GFR (MDRD) Non-Af 81 BUN/Creatinine Ratio 15.1 Glucose 105 Calcium 8.8 Total Bilirubin 0.30 AST 25 ALT 56 Alkaline Phosphatase 128 H Total Protein 7.6 Albumin 3.3 Globulin 4.3 H Albumin/Globulin Ratio 0.8 L Lipase 63 L Radiography Diagnostic Testing: Clinical Impression(s) from Imaging Studies Abdomen/Pelvis CT 01/16/21 22:09 IMPRESSION: No acute findings in the abdomen or pelvis. Individualized dose optimization techniques were used for this CT. at 2326 Reported and signed by: Christ Bailey MD Electronically Signed: Christ Bailey MD at 23:25 EDT Tel , Service support , Discharge Plan Triage Chief Complaint: Abd Pain ED Provider: Luis Marmolejo Dx/Rx/DC Orders Clinical Impression: Abdominal pain, Esophagitis Instructions: Abdominal Pain, Esophagitis Prescriptions: New sucralfate [Carafate] 1 gram tablet 1 g PO 4X/DAY Qty: 60 RF: 0 Primary Care Provider: Yudith Wilson NP Referrals: Jason Andersen MD [STAFF PHYSICIAN] - 01/18/21 Yudith Wilson NP, [employer] [Primary Care Provider] - Activity Restrictions/Additional Instructions: Abdominal labs are normal. CT scan negative for any acute process. Take Carafate 4 times a day as prescribed. Continue your omeprazole. Keep your follow-up with Dr. Andersen in 2 days. Disposition Disposition: Home, Self Care Discharge Date/Time: 01/17/21 00:08
[2021-01-16] MEDS: Famotidine 200 MG/20 ML MDV 20 MG in 0.9% Normal Saline (Pres. free 8 ML 300 MG IV (22:25)
[2021-01-16] MEDS: Metoclopramide 10 MG/2 ML Vial 5 MG IV (22:25)
[2021-01-16] MEDS: fentaNYL 100 MCG/2 ML Ampul 50 MCG IV (22:26)
[2021-01-16 22:28] LABS: Absolute Lymphocyte Count 1.33 X10^3/uL (0.83-4.51); Absolute Neutrophil Count 5.9 X10^3/uL (2.0-7.7); Basophil# 0.05 X10^3/uL; Basophil% 0.6 % (0-1); Eosinophil# 0.22 X10^3/uL; Eosinophils% 2.7 % (0-5); Hematocrit 42.8 % (40-54); Lymphocyte # 1.33 X10^3/ul (0.83-4.51); Lymphocyte % 16.5 % (19-41); Mean Corp Hgb Conc 32.7 g/dL (32-36); Mean Corpuscular Hgb 26.4 pg (27.0-32.0); Mean Corpuscular Volume 80.8 fL (80-94); Mean Platelet Vol. 8.9 fl (6.2-12.0); Monocyte# 0.52 X10^3/uL; Monocyte% 6.5 % (0-10); NRBC Flagged by Analyzer 0 % (0-5); Neutrophil # 5.91 X10^3/uL (2.7-7.7); Neutrophil % 73.3 % (47-70); Platelet Count 316 K/mm3 (150-450); RBC Distribution Width CV 13.9 % (11.6-14.6); RBC Distribution Width SD 40.9 fl (35.1-43.9); White Blood Count 8.1 K/mm3 (4.4-11.0)
[2021-01-16 22:52] LABS: ALB/GLOB Ratio 0.8 RATIO (0.9-2.4); AST(SGOT) 25 U/L (15-37); Alanine Aminotransfer ALT/SGPT 56 U/L (16-61); Albumin, Serum 3.3 g/dL (3.2-5.0); Alkaline Phosphatase 128 U/L (45-117); Anion Gap 9 (5-15); BUN 16 mg/dL (7-18); BUN/Creat Ratio 15.1 RATIO (10-20); Calcium,Total 8.8 mg/dL (8.5-10.1); Chloride 101 mmol/L (98-107); Creatinine, Serum 1.06 mg/dL (0.70-1.30); EST Glomerular Filtration Rate 81 mL/min (>60); Est Glom Filt Rate - Afr Amer 98 mL/min (>60); Estimated Creatinine Clearance 84.01 ml/min; Globulin 4.3 g/dL (2.2-4.2); Glucose 105 mg/dL (74-106); Lipase 63 U/L (73-393); Potassium 3.7 mmol/L (3.5-5.1); Protein, Total 7.6 g/dL (6.4-8.2); Sodium Level 137 mmol/L (136-145)
[2021-01-16] MEDS: Mag Hydrox/Al Hydrox/Simeth 30 ML UDC PO (23:40)
[2021-01-17 00:07] VITALS: BP 138/74; PULSE 62; RESP 15; O2SAT 97
== END 2021-01-17 00:08 | disposition home or self-care (01) ==
PROVIDERS: Emergency Provider Emergency Medicine; PCP Nurse Practitioner Family
DX: K20.90 Esophagitis, unspecified without bleeding (principal); R10.9 Unspecified abdominal pain; I10 Essential (primary) hypertension; I25.2 Old myocardial infarction; Z90.49 Acquired absence of other specified parts of digestive tract; K57.32 Diverticulitis of large intestine without perforation or abscess without bleeding
CPT/HCPCS: 74176; 80053; 83690; 85025; 96365; 96375; 99284; J7030; A4216; J3490

== ENCOUNTER 2021-04-23 04:30 | Emergency (ER) | payer MEDICARE, MEDICAID, SELFPAY ==
[2021-04-23 04:31] VITALS: BP 152/99; PULSE 89; RESP 18; TEMP 37; O2SAT 99; BMI 46.3
--- NOTE | 2021-04-23 04:43 | RAD_ITS ---
STUDY: X-RAY - LEFT SHOULDER REASON FOR EXAM: Male, 45 years old patient with left-sided shoulder injury/pain. TECHNIQUE: 4 view(s) of the shoulder. COMPARISON: Prior comparable comparison studies are not available for review at this time. FINDINGS: There is mild degenerative arthrosis of the glenohumeral articulation. There is decreased range of motion on the internal and external rotation views. Normal acromioclavicular joint. Normal acromion. Normal humeral head and visualized proximal humerus. The visualized left lung appears to be clear. Normal visualized pulmonary apex. RAD/Shoulder min 2 Views IMPRESSION: Degenerative arthropathy and decreased range of motion. Electronically Signed: Nilsa Brunson MD at 5:26 EST ,
--- NOTE | 2021-04-23 04:43 | EX.ED.UPPERE ---
HPI History of Present Illness HPI Narrative: Patient presents with left shoulder pain that began yesterday. Patient states he felt like his shoulder popped out of socket. Patient states this happened to him earlier this week and he went to [place] emergency department and they were able to reduce his shoulder. Patient states that he felt his shoulder pop out again yesterday. Patient states he was able to work with it out of place. Patient states his pain is sharp. Patient states his pain is worse with movement. Patient denies any paresthesias or weakness. Patient denies any other injuries. Chief Complaint: Upper Extremity Injury Informant: patient Occured/Mechanism Comment: Left shoulder dislocation Onset/Context/Timing Onset: Yesterday Context: Sudden Onset Timing: Continuous Quality of Pain: Sharp Location: Left shoulder Worsened by: Movement Relieved by: Nothing Associated Symptoms Associated Symptoms: Negative for Parasthesia, Weakness and Loss of Funtion [facility] Medical History (Updated 04/23/21 @ 05:[address] Patrick Moreno DO) Diverticulitis large intestine Hypertension Myocardial infarction Allergy/AdvReac Type Severity Reaction Status Date / Time acetaminophen [From Vicodin] Allergy Rash Verified 01/09/21 01:17 codeine Allergy Anaphylaxis Verified 01/09/21 01:17 hydrocodone bitartrate Allergy Rash Verified 01/09/21 01:17 [From Vicodin] latex Allergy Swelling Verified 01/09/21 01:17 ondansetron AdvReac Nausea Verified 01/09/21 01:17 [From Zofran (as hydrochloride)] Surgical History (Updated 04/23/21 @ 04:[address] Patrick Moreno DO) History of tonsillectomy and adenoidectomy Hx of appendectomy Hx of arthroscopy of right knee Hx of cholecystectomy Social History Smoking Status: Never smoker substance use type: does not use ROS ROS ED Constitutional Constitutional ED: Denies chills or fever(s) Eyes Eyes: Denies blurry vision or change in vision ENT ENT ED: Denies rhinorrhea or sore throat Cardiovascular Cardiovascular: Denies chest pain or palpitations Respiratory/Chest Respiratory/Chest: Denies cough or dyspnea Gastrointestinal Gastrointestinal: Denies nausea or vomiting Genitourinary Genitourinary ED: Denies dysuria or hematuria Musculoskeletal Musculoskeletal: Denies back pain or neck pain Integumentary Denies abscess or rash Neurologic Neurologic: Denies headache(s) or weakness Allergic/Immunologic Allergic/Immunologic ED: Denies mouth swelling or urticaria EXAM Physical Exam Const Vital Signs: 04/23/21 04:31 Temperature 98.6 F Temperature Source Temporal Pulse Rate 89 Respiratory Rate 18 Blood Pressure 152/99 H Blood Pressure Mean 116 Pulse Ox 99 Oxygen Delivery Method Room Air Positive well nourished, well developed and obese General Appearance ED: well developed Nutritional Appearance: obese HEENT Reports moist mucous membranes Neck full ROM and supple Resp normal respiratory effort and clear to auscultation bilaterally Cardio regular rate and regular rhythm GI non-tender Palpation: soft Extremity Extremity Narrative: There is diffuse tenderness over the left shoulder. There is no deformity noted. Range of motion was limited in all motions of the left shoulder secondary to pain. There is no edema or ecchymosis noted. Sensation was intact to light touch in the radial, median, ulnar, and axillary areas. Strength is 5/5 in the radial, median, and ulnar areas. Radial pulses are equal bilaterally. Neuro oriented x3, CN's II-XII intact bilaterally, moves all extremities, no focal motor deficits and no sensory deficits noted Sensorium / Orientation: alert Psych mental status grossly normal MDM MDM MDM Narrative Medical decision making narrative: Patient was given injection of morphine here. X-rays of the left shoulder were obtained. There are 4 views. On my interpretation, there is no acute fracture. There is no dislocation noted. There are mild degenerative changes noted. There is no soft tissue swelling. Radiologist also interpreted the x-rays and noted decreased motion with internal and external rotation. He agrees that there there is no acute fracture or dislocation. Patient was given a sling for comfort. Patient was instructed to continue using the Naprosyn as needed for pain. Patient was instructed to use ice to the area. Patient was instructed to follow-up with his primary care physician in 5 to 7 days. Patient understood and was agreeable with the plan. All questions were answered. Discharge Plan Triage Chief Complaint: Upper Extremity Injury ED Provider: Patrick Moreno Dx/Rx/DC Orders Clinical Impression: Left shoulder strain Instructions: ED Shoulder Pain, Uncertain Cause Primary Care Provider: Care Physician,No Primary Referrals: Cara Mehta DO [STAFF PHYSICIAN] - 5-7 Days Care Physician,No Primary [Primary Care Provider] - Disposition Disposition: Home, Self Care
[2021-04-23] MEDS: Morphine 4 MG/ML Syringe IM (04:51)
[2021-04-23 05:42] VITALS: BP 142/71; PULSE 87; RESP 16; O2SAT 98
== END 2021-04-23 05:45 | disposition home or self-care (01) ==
PROVIDERS: Emergency Provider Emergency Medicine; Visit Provider Emergency Medicine
DX: S46.912A Strain of unspecified muscle, fascia and tendon at shoulder and upper arm level, left arm, initial encounter (principal); I10 Essential (primary) hypertension
CPT/HCPCS: 73030; 96372; 99282

== ENCOUNTER 2021-05-09 00:04 | Emergency (ER) | payer MEDICARE, MEDICAID, SELFPAY ==
[2021-05-09 00:05] VITALS: BP 159/90; PULSE 83; RESP 18; TEMP 36.6; O2SAT 99; BMI 45.3
--- NOTE | 2021-05-09 00:09 | RAD_ITS ---
STUDY: X-RAY - LEFT SHOULDER REASON FOR EXAM: Male, 45 years old. INJURY TECHNIQUE: 4 view(s) of the shoulder. COMPARISON: None. FINDINGS: Normal glenohumeral articulation. Normal acromioclavicular joint. Normal acromion. Normal humeral head and visualized proximal humerus. The soft tissue structures are unremarkable. Normal visualized pulmonary apex. RAD/Shoulder min 2 Views IMPRESSION: Normal x-ray examination of the shoulder. Electronically Signed: Lisa Rg MD at 0:58 EST ,
--- NOTE | 2021-05-09 00:09 | EX.ED.UPPERE ---
HPI History of Present Illness Chief Complaint: Constipation Informant: patient Occured/Mechanism Mechanism/Context: Yes injury Onset/Context/Timing Onset: Hours (2) Context: Sudden Onset Timing: Continuous Quality of Pain: Aching Location: left shoulder Current Severity: Moderate Maximum Severity: Severe Worsened by: moving Relieved by: remaining still Associated Symptoms Associated Symptoms: Negative for Parasthesia, Weakness and Loss of Funtion Narrative Narrative: [id number] male states he lifted up a small child to sit him down since he was misbehaving and in doing so he felt a sudden pain in his left shoulder that has been persistent tonight. He states he has pain in the parascapular area where feels like it is out of place and also has pain anteriorly points to the area of the coracoid process. Also has pain in his proximal volar left forearm that he states has been there for 2 years since he had surgery to repair the tendon there. That is unchanged right now. PFSH [facility] Medical History Diverticulitis large intestine Hypertension Myocardial infarction Allergy/AdvReac Type Severity Reaction Status Date / Time acetaminophen [From Vicodin] Allergy Rash Verified 05/09/21 00:09 codeine Allergy Anaphylaxis Verified 05/09/21 00:09 hydrocodone bitartrate Allergy Rash Verified 05/09/21 00:09 [From Vicodin] latex Allergy Swelling Verified 05/09/21 00:09 ondansetron AdvReac Nausea Verified 05/09/21 00:09 [From Zofran (as hydrochloride)] Surgical History History of tonsillectomy and adenoidectomy Hx of appendectomy Hx of arthroscopy of right knee Hx of cholecystectomy Social History Smoking Status: Never smoker substance use type: does not use ROS ROS ED Constitutional Constitutional ED: Denies chills or fever(s) Musculoskeletal Musculoskeletal: Reports extremity pain; Denies neck pain Integumentary Denies Abrasions, rash or wounds Neurologic Neurologic: Denies paresthesias or weakness EXAM Physical Exam Const Positive well nourished and well developed General Appearance ED: well developed and NAD Neck full ROM and supple Back/Spine normal ROM and normal to inspection Extremity Extremity Narrative: Patient is able to range his left shoulder in every direction with limitations at the extremes of all of them including flexion, extension, internal rotation, external rotation, and abduction. Tenderness at the coracoid process. Positive Yergason sign. No deformity. No subacromial tenderness. Neuro oriented x3, no focal motor deficits and no sensory deficits noted Sensorium / Orientation: alert Psych mental status grossly normal and thought process normal Skin no wounds Rashes: no rashes MDM MDM MDM Narrative Medical decision making narrative: Three-view x-ray series of the left shoulder on my interpretation is negative for acute fracture or dislocation/subluxation. This is consistent with a strain that most likely involves the short head of the biceps. Given appropriate instructions for supportive care including shot of Toradol here, refer to orthopedics if he does not have improvement after 1 or 2 weeks. Discharge Plan Triage Chief Complaint: Constipation ED Provider: Ruddy Spain Dx/Rx/DC Orders Clinical Impression: Strain of other muscles, fascia and tendons at shoulder and upper arm level, left arm, initial encounter Instructions: ED Muscle Strain, Extremity Primary Care Provider: Care Physician,No Primary Referrals: Chang Cooper MD [STAFF PHYSICIAN] - 10-14 Days if not better Care Physician,No Primary [Primary Care Provider] - Activity Restrictions/Additional Instructions: Ibuprofen or Aleve as needed for pain, also may apply ice to affected area. Use pain as your guide in avoiding painful motions without powering through them so that the inflammation decreases and your pain improves/resolves with time. Disposition Disposition: Home, Self Care
--- NOTE | 2021-05-09 00:38 | NURSING ---
Meds are not crossing over at this time. Toradol 2ml of 60mgm, IM, given R thigh, tolerated well. lot [id number], exp 01/2022.
[2021-05-09] MEDS: Ketorolac 60 MG/2 ML Vial IM (00:52)
== END 2021-05-09 01:07 | disposition home or self-care (01) ==
PROVIDERS: Emergency Provider Emergency Medicine; Visit Provider Emergency Medicine
DX: S46.912A Strain of unspecified muscle, fascia and tendon at shoulder and upper arm level, left arm, initial encounter (principal); X50.0XXA Overexertion from strenuous movement or load, initial encounter; I10 Essential (primary) hypertension; I25.2 Old myocardial infarction
CPT/HCPCS: 73030; 96372; 99282

== ENCOUNTER 2021-05-26 01:09 | Emergency (ER) | payer MEDICARE, MEDICAID, SELFPAY ==
[2021-05-26 01:11] VITALS: BP 153/87; PULSE 95; RESP 16; TEMP 36.6; O2SAT 100; BMI 45.1
--- NOTE | 2021-05-26 01:43 | ED.VIS.BACK ---
HPI History of Present Illness Chief Complaint: Back Informant: patient Onset/Context/Timing Onset: Days (3) Context: - (Awoke with symptoms 3 days ago) Timing: Continuous Quality: Aching Location: Lumbar Current Severity: Severe Maximum Severity: Severe Worsened by: improves with Movement Relieved by: Remaining Still; Not Relieved By Medications (Trying Tylenol and Aleve) Associated Symptoms Associated Symptoms: Radiation to Right Leg; Negative for Numbness, Tingling, Radiation to Left Leg, Dysuria, Unable to Ambulate, Urinary Retention, Urinary Incontinence, Constipation and Fecal Incontinence Narrative Narrative: Patient presenting with 3 days of low back pain radiating into his right lower extremity but not below the knee. No numbness, tingling, weakness. No bowel or bladder dysfunction. 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 [facility] Medical History Diverticulitis large intestine Hypertension Myocardial infarction Home Medications cyclobenzaprine 10 mg PO TID PRN #18 tablet 05/26/21 [Rx Last Taken Unknown] tramadol 50 mg PO Q4H PRN PRN 3 Days #14 tab 05/26/21 [Rx Last Taken Unknown] Allergy/AdvReac Type Severity Reaction Status Date / Time acetaminophen [From Vicodin] Allergy Rash Verified 05/26/21 01:16 codeine Allergy Anaphylaxis Verified 05/26/21 01:16 hydrocodone bitartrate Allergy Rash Verified 05/26/21 01:16 [From Vicodin] latex Allergy Swelling Verified 05/26/21 01:16 ondansetron AdvReac Nausea Verified 05/26/21 01:16 [From Zofran (as hydrochloride)] Surgical History History of tonsillectomy and adenoidectomy Hx of appendectomy Hx of arthroscopy of right knee Hx of cholecystectomy Social History Smoking Status: Never smoker substance use type: does not use ROS ROS ED Constitutional Constitutional ED: Denies chills or fever(s) Gastrointestinal Gastrointestinal: Denies abdominal pain, constipation, fecal incontinence, nausea or vomiting Genitourinary Genitourinary ED: Reports other Details: no urinary retention ; Denies abdominal discomfort or urinary incontinence Musculoskeletal Musculoskeletal: Reports as per HPI and back pain; Denies neck pain Integumentary Denies rash or wounds Neurologic Neurologic: Denies headache(s), paresthesias or weakness EXAM Physical Exam Const Vital Signs: 05/26/21 01:11 Temperature 97.8 F Temperature Source Oral Pulse Rate 95 Respiratory Rate 16 Blood Pressure 153/87 H Blood Pressure Mean 109 Pulse Ox 100 Oxygen Delivery Method Room Air Positive well nourished and well developed General Appearance ED: well developed, irritable and NAD HEENT Negative for trauma or tenderness Eyes PERRL and EOMs intact bilaterally Neck full ROM and supple GI normal to inspection, nondistended, normoactive bowel sounds, soft to palpation and non-tender Back/Spine normal to inspection Back/Spine Narrative: Patient jumps and screams with barely touching the skin of his lumbar area. There is no rash or any other skin finding. Straight leg raises cause increased back pain only no radicular symptoms. Lumbar Spine / Lower Back: ROM limited and straight leg raise negative bilaterally Extremity normal to inspection, full ROM and no pedal edema Neuro oriented x3 and no sensory deficits noted Sensorium / Orientation: alert Motor Exam: strength 5/5 throughout and clonus absent Deep Tendon Reflexes: Rt Patellar (L4): 2+, Lt Patellar (L4): 2+, Rt Ankle (S1): 2+ and Lt Ankle (S1): 2+ Deep Tendon Reflexes Back: Rt Patellar (L4): 2+, Lt Patellar (L4): 2+, Rt Ankle (S1): 2+ and Lt Ankle (S1): 2+ Plantar Reflex: Downgoing: bilateral Psych mental status grossly normal and thought process normal Mood & Affect: irritable Skin no rashes or lesions noted and no wounds MDM MDM MDM Narrative Medical decision making narrative: Based on history and exam I suspect this patient is having musculoskeletal low back pain without radiculopathy at this time. No red flags indicating he needs an x-ray. We will treat him symptomatically for symptoms that should be self-limiting as long as he is not stressing/overtaxing his back muscles and tendons. Reviewed his [facility] report. Last prescription for controlled substance was in January 2021. We will give him cyclobenzaprine and tramadol for now. Discharge Plan Triage Chief Complaint: Back ED Provider: Ruddy Spain Dx/Rx/DC Orders Clinical Impression: Acute lumbosacral myofascial strain Instructions: ED Back Sprain/Strain Prescriptions: New cyclobenzaprine [cyclobenzaprine] 10 MG tablet 10 mg PO TID PRN (Reason: Muscle Spasm) Qty: 18 RF: 0 tramadol 50 MG tablet 50 mg PO Q4H PRN PRN (Reason: Pain) 3 Days Qty: 14 RF: 0 Primary Care Provider: Care Physician,No Primary Referrals: Leslie Chavez [NON-STAFF] - 1 Week if not improving (or your own PCP if you have one assigned to you) Care Physician,No Primary [Primary Care Provider] - Disposition Disposition: Home, Self Care
[2021-05-26] MEDS: Morphine 4 MG/ML Syringe IM (01:58)
[2021-05-26] MEDS: Ketorolac 30 MG/ML Syringe IM (02:01)
[2021-05-26] MEDS: Orphenadrine 60 MG/2 ML Ampul IM (02:03)
[2021-05-26 02:13] VITALS: BP 148/80; PULSE 76; RESP 18; O2SAT 96
== END 2021-05-26 02:10 | disposition home or self-care (01) ==
LOC: ED 01:57
PROVIDERS: Emergency Provider Emergency Medicine; Visit Provider Emergency Medicine
DX: S39.012A Strain of muscle, fascia and tendon of lower back, initial encounter (principal); I10 Essential (primary) hypertension; X50.9XXA Other and unspecified overexertion or strenuous movements or postures, initial encounter; I25.2 Old myocardial infarction
CPT/HCPCS: 99282

== ENCOUNTER 2021-07-18 18:28 | Emergency (ER) | payer MEDICARE, MEDICAID, SELFPAY ==
[2021-07-18 18:29] VITALS: BP 142/110; PULSE 87; RESP 20; TEMP 36.2; O2SAT 95; BMI 45.1
--- NOTE | 2021-07-18 18:44 | EX.ED.DYSGE1 ---
HPI History of Present Illness Chief Complaint: Cough Informant: patient Narrative Narrative: 46-year-old male presenting to the emergency room feeling ill. He states that a lot of family have the same illness and passed it to him about 1 week ago. He notes nasal congestion bilateral earache, cough with sputum production and chills. No vomiting or diarrhea. No definitive fevers. No drainage from the ears. PFSH PFSH Medical History Diverticulitis large intestine Hypertension Myocardial infarction Home Medications cyclobenzaprine 10 mg PO TID PRN #18 tablet 05/26/21 [Rx Last Taken Unknown] tramadol 50 mg PO Q4H PRN PRN 3 Days #14 tab 05/26/21 [Rx Last Taken Unknown] amoxicillin-pot clavulanate 875 mg PO Q12H #20 tablet 07/18/21 [Rx Last Taken Unknown] Allergy/AdvReac Type Severity Reaction Status Date / Time acetaminophen [From Vicodin] Allergy Rash Verified 07/18/21 18:29 codeine Allergy Anaphylaxis Verified 07/18/21 18:29 hydrocodone bitartrate Allergy Rash Verified 07/18/21 18:29 [From Vicodin] latex Allergy Swelling Verified 07/18/21 18:29 ondansetron AdvReac Nausea Verified 07/18/21 18:29 [From Zofran (as hydrochloride)] Surgical History History of tonsillectomy and adenoidectomy Hx of appendectomy Hx of arthroscopy of right knee Hx of cholecystectomy Social History Smoking Status: Never smoker substance use type: does not use ROS ROS ED Constitutional Constitutional ED: Reports chills; Denies fever(s) or weight loss Eyes Eyes: Denies change in vision or diplopia ENT ENT ED: Reports ear pain, rhinorrhea, sore throat and other Details: Nasal congestion Cardiovascular Cardiovascular: Denies chest pain, orthopnea, palpitations or racing heartbeat Respiratory/Chest Respiratory/Chest: Reports cough, dyspnea and sputum; Denies dyspnea on exertion or orthopnea Gastrointestinal Gastrointestinal: Denies abdominal pain, diarrhea, nausea or vomiting Genitourinary Genitourinary ED: Denies dysuria, hematuria or urinary frequency Musculoskeletal Musculoskeletal: Reports myalgias; Denies arthralgias Integumentary Denies abscess or rash Neurologic Neurologic: Denies headache(s) or weakness Psychiatric Psychiatric: Denies anxiety, depression, suicidal ideation or suicidal thoughts Endocrine Endocrinology: Denies polydipsia, polyphagia or polyuria Allergic/Immunologic Allergic/Immunologic ED: Denies mouth swelling, tongue swelling or urticaria EXAM Physical Exam Const Vital Signs: 07/18/21 18:29 Temperature 97.2 F L Temperature Source Temporal Pulse Rate 87 Respiratory Rate 20 H Blood Pressure 142/110 H Blood Pressure Mean 120 Pulse Ox 95 Oxygen Delivery Method Room Air Positive well nourished and well developed General Appearance ED: well developed HEENT Reports normocephalic, head/scalp atraumatic and moist mucous membranes HEENT Narrative: ReturnLeft tympanic membrane is erythematous with loss of landmarks. No perforation seen. Right tympanic membrane is retracted. There is turbinate edema Negative for trauma Eyes PERRL and EOMs intact bilaterally Neck no lymphadenopathy, supple and no JVD Resp normal respiratory effort and clear to auscultation bilaterally Cardio regular rate, regular rhythm and no murmurs GI normal to inspection, nondistended, normoactive bowel sounds and non-tender Palpation: soft Back/Spine no CVA tenderness and normal ROM Extremity normal to inspection General Extremety ED: Negative for edema General Extremity: Negative for edema Neuro oriented x3 and CN's II-XII intact bilaterally Sensorium / Orientation: alert Motor Exam: strength 5/5 throughout Psych mental status grossly normal Mood & Affect: Negative for depressed or tearful Skin no rashes or lesions noted and no wounds MDM MDM MDM Narrative Medical decision making narrative: Patient will be treated with Augmentin. Instructions to rest work note will be given for tomorrow. He was advised this is most likely a viral illness complicated by otitis media Discharge Plan Triage Chief Complaint: Cough ED Provider: Lorenzo Erazo Dx/Rx/DC Orders Clinical Impression: Viral URI with cough, Acute left otitis media Instructions: ED Otitis Media Antibiotic ... Prescriptions: New amoxicillin-pot clavulanate [amoxicillin-pot clavulanate] 875 MG tablet 875 mg PO Q12H Qty: 20 RF: 0 No Action cyclobenzaprine [cyclobenzaprine] 10 MG tablet 10 mg PO TID PRN (Reason: Muscle Spasm) Qty: 18 RF: 0 tramadol 50 MG tablet 50 mg PO Q4H PRN PRN (Reason: Pain) 3 Days Qty: 14 RF: 0 Primary Care Provider: Care Physician,No Primary Referrals: Laurence Escobar MD [STAFF PHYSICIAN] - As Needed Care Physician,No Primary [Primary Care Provider] - Disposition Disposition: Home, Self Care
== END 2021-07-18 19:08 | disposition home or self-care (01) ==
LOC: ED 18:52
PROVIDERS: Emergency Provider Emergency Medicine; Visit Provider Emergency Medicine
DX: J06.9 Acute upper respiratory infection, unspecified (principal); I10 Essential (primary) hypertension; R68.83 Chills (without fever); H66.92 Otitis media, unspecified, left ear; R05.9 Cough, unspecified; I25.2 Old myocardial infarction
CPT/HCPCS: 99282

== ENCOUNTER 2021-08-11 20:42 | Emergency (ER) | payer MEDICARE, MEDICAID, SELFPAY ==
[2021-08-11 20:43] VITALS: BP 153/95; PULSE 94; RESP 14; TEMP 36.7; O2SAT 97; BMI 45.1
--- NOTE | 2021-08-11 22:28 | RAD_ITS ---
EXAM: XR Lumbosacral Spine, 2 or 3 Views CLINICAL INDICATION: 46 years old, Male; pain/injury TECHNIQUE: Frontal and lateral views of the lumbar spine and sacrum. This report was created using [employer] report [email or web address] technology. COMPARISON: None. FINDINGS: Vertebrae: Unremarkable. Preserved vertebral body height. No fracture. No spondylolisthesis. Preservation of the normal lumbar lordosis. No significant facet arthropathy. Disc spaces: No acute findings. Disc spaces are maintained. Gastrointestinal tract: Unremarkable as visualized. Included bowel gas pattern is non-obstructive. RAD/Lumbar Spine 2 or 3 Views IMPRESSION: No evidence of lumbar spinal fracture or spondylolisthesis. Electronically Signed: Fred Saab MD at 0:47 EDT ,
--- NOTE | 2021-08-11 22:29 | EX.ED.GENINJ ---
HPI History of Present Illness Chief Complaint: Back Informant: patient and spouse/S.O. Onset/Context/Timing Onset: Days (4) Mechanism/Context: other (see below) Quality of Pain: Aching Location: left knee and left low back Current Severity: Severe Maximum Severity: Severe Worsened by: movement Relieved by: remaining still Associated Symptoms Associated Symptoms: Negative for Parasthesias, Weakness, Inability to ambulate, Loss of consciousness and Amnesia Narrative Narrative: Patient states 4 days ago, he and her friend were lifting a piece of a dock for a boat, the friend dropped it, and then this caused him to fall somehow twisting at the back and injuring his left knee as well which he thinks he twisted, he felt a crack or a pop or something, he has been having severe pain ever since. He was seen at an outside hospital was told after x-rays of both that he had a crack in his left knee they put him in a knee immobilizer without crutches or prescription for any pain medication and he is here saying he needs something for the pain. He is in severe pain. Denies any numbness in his leg, bowel or bladder dysfunction, or other injury/pain. [facility] Medical History Diverticulitis large intestine Hypertension Myocardial infarction Home Medications baclofen 20 mg PO DAILY 08/11/21 [History Last Taken 08/09/21] oxycodone-acetaminophen 1 tab PO Q6H PRN PRN 2 Days #8 tablet 08/12/21 [Rx Last Taken Unknown] Allergy/AdvReac Type Severity Reaction Status Date / Time acetaminophen [From Vicodin] Allergy Rash Verified 08/11/21 20:43 codeine Allergy Anaphylaxis Verified 08/11/21 20:43 hydrocodone bitartrate Allergy Rash Verified 08/11/21 20:43 [From Vicodin] latex Allergy Swelling Verified 08/11/21 20:43 ondansetron AdvReac Nausea Verified 08/11/21 20:43 [From Zofran (as hydrochloride)] Surgical History History of tonsillectomy and adenoidectomy Hx of appendectomy Hx of arthroscopy of right knee Hx of cholecystectomy Social History Smoking Status: Never smoker substance use type: does not use ROS ROS ED Constitutional Constitutional ED: Denies chills or fever(s) Musculoskeletal Musculoskeletal: Reports as per HPI, back pain and extremity pain; Denies neck pain Integumentary Denies Abrasions, rash or wounds Neurologic Neurologic: Denies paresthesias or weakness EXAM Physical Exam Const Vital Signs: 08/11/21 20:43 Temperature 98.1 F Temperature Source Temporal Pulse Rate 94 Respiratory Rate 14 Blood Pressure 153/95 H Blood Pressure Mean 114 Pulse Ox 97 Oxygen Delivery Method Room Air Positive well nourished, well developed and obese General Appearance ED: well developed and NAD Nutritional Appearance: obese Neck full ROM and supple Back/Spine normal to inspection Back/Spine Narrative: Painful range of motion lumbosacral spine. Tender diffusely including midline and right paraspinal musculature all the way into buttock, very limited evaluation due to patient screaming in pain with very simple palpation of even the skin, mostly because he jerks and moves in anticipation of exam. No step-off or signs of trauma. Extremity Extremity Narrative: Limited range of motion of the left knee but he can almost range fully, can almost fully extend and can almost fully bend. Short arc is without difficulty. Limited exam because patient declines to take off his pants because he is in so much pain. He does not have on a knee immobilizer. Indicates that the pain is anteromedial left knee where he has tenderness, no patellar tenderness, I do not palpate an effusion, and all of his ligaments are stable and with short endpoints on stressing within the limits of the exam since he cannot fully extend, with a negative Maris and negative posterior drawer sign. Neuro oriented x3, no focal motor deficits and no sensory deficits noted Sensorium / Orientation: alert Psych mental status grossly normal and thought process normal Skin no wounds Rashes: no rashes MDM MDM MDM Narrative Medical decision making narrative: Lumbar spine 3 views of mitral rotation are negative for any acute, and left knee 4 views of my interpretation showed nothing acute. He says that he was referred to orthopedics and has an appointment after the weekend because at the outside hospital they saw a hairline fracture of his patella which I have not seen on our x-rays. Radiology eventually reviewed them and agree with me that they are negative for anything acute. I am letting the patient go after giving him some pain medication here and a very short prescription for a narcotic which he is requesting since he is in severe pain. I advised continuing to follow-up with orthopedics, I see no reason for the knee immobilizer I will give him an Ronni wrap. [facility] report showed that his last narcotic was about 2 months ago. Radiography Diagnostic Testing: Clinical Impression(s) from Imaging Studies Lumbar Spine X-Ray 08/11/21 22:28 IMPRESSION: No evidence of lumbar spinal fracture or spondylolisthesis. Electronically Signed: Fred Saab MD at 0:47 EDT , Knee X-Ray 08/11/21 23:10 IMPRESSION: Negative left knee x-rays. Electronically Signed: Fred Saab MD at 0:49 EDT , Discharge Plan Triage Chief Complaint: Back ED Provider: Ruddy Spain Dx/Rx/DC Orders Clinical Impression: Acute lumbosacral myofascial strain, Injury of knee, left Instructions: Reducing Knee Pain and Swelling, ED Back Sprain/Strain Prescriptions: New oxycodone-acetaminophen [oxycodone-acetaminophen] 1 TABLET tablet 1 tab PO Q6H PRN PRN (Reason: Pain) 2 Days Qty: 8 RF: 0 No Action baclofen 20 mg tablet 20 mg PO DAILY RF: 0 Primary Care Provider: Care Physician,No Primary Referrals: ortho, your [Other] - 08/13/21 (as directed ) Care Physician,No Primary [Primary Care Provider] - Disposition Disposition: Home, Self Care
[2021-08-11] MEDS: oxyCODONE 5 MG Tablet 10 MG PO (22:55)
--- NOTE | 2021-08-11 23:10 | RAD_ITS ---
EXAM: XR Left Knee Complete, 4 or More Views CLINICAL INDICATION: 46 years old, Male; pain/injury TECHNIQUE: Four or more views of the left knee. This report was created using [employer] report generation technology. COMPARISON: None. FINDINGS: Bones/joints: Unremarkable. No acute fracture. No subluxation. Normal alignment. Preservation of the joint space. No sclerotic or destructive changes observed. Soft tissues: Unremarkable. No soft tissue swelling or gas. No radiopaque foreign body. RAD/Knee 4 or More Views IMPRESSION: Negative left knee x-rays. Electronically Signed: Fred Saab MD at 0:49 EDT ,
[2021-08-12] MEDS: Ketorolac 60 MG/2 ML Vial IM (01:25)
[2021-08-12] MEDS: Orphenadrine 60 MG/2 ML Ampul IM (01:26)
[2021-08-12 01:30] VITALS: BP 147/73; PULSE 84; O2SAT 96
== END 2021-08-12 01:32 | disposition home or self-care (01) ==
PROVIDERS: Emergency Provider Emergency Medicine; Visit Provider Emergency Medicine
DX: S39.012D Strain of muscle, fascia and tendon of lower back, subsequent encounter (principal); I10 Essential (primary) hypertension; S89.92XD Unspecified injury of left lower leg, subsequent encounter; E66.9 Obesity, unspecified; X50.0XXD Overexertion from strenuous movement or load, subsequent encounter
CPT/HCPCS: 72100; 73564; 99282

== ENCOUNTER 2021-08-24 01:32 | Emergency (ER) | payer MEDICARE, MEDICAID, SELFPAY ==
[2021-08-24 01:34] VITALS: BP 149/78; PULSE 99; RESP 17; TEMP 36.6; O2SAT 98; BMI 46.0
--- NOTE | 2021-08-24 01:45 | EDS_ITS ---
HPI History of Present Illness Chief Complaint: Lower Extremity Injury Detail of Chief Complaint: Left knee pain Informant: patient Onset/Context/Timing Current Severity: Severe Narrative Narrative: Patient presents with severe left knee pain and initially started about 3 weeks ago. Patient was helping a friend build a dock when his son fell in a hole and caused the patient to twist his knee trying to catch him. Patient has been seen by orthopedics Dr. Koch who ordered an MRI which was done about 2 days ago but he has no results. Patient also has had x-rays of the knee. Patient taken Tylenol for pain currently. Patient has severe pain when trying to walk. He had a knee immobilizer but family member accidentally broke it recently. Currently just has an Ronni wrap. PFSH [facility] Medical History Diverticulitis large intestine Hypertension Myocardial infarction Home Medications NK 08/24/21 [History Last Taken Unknown] oxycodone-acetaminophen 1 tab PO Q6H PRN PRN 3 Days #12 tablet 08/24/21 [Rx Last Taken Unknown] Allergy/AdvReac Type Severity Reaction Status Date / Time acetaminophen [From Vicodin] Allergy Rash Verified 08/11/21 20:43 codeine Allergy Anaphylaxis Verified 08/11/21 20:43 hydrocodone bitartrate Allergy Rash Verified 08/11/21 20:43 [From Vicodin] latex Allergy Swelling Verified 08/11/21 20:43 naproxen Allergy Hives Verified 08/24/21 01:33 ondansetron AdvReac Nausea Verified 08/11/21 20:43 [From Zofran (as hydrochloride)] Surgical History History of tonsillectomy and adenoidectomy Hx of appendectomy Hx of arthroscopy of right knee Hx of cholecystectomy Social History Smoking Status: Never smoker substance use type: does not use ROS ROS ED Constitutional Constitutional ED: Reports systems reviewed and no addt'l complaints, except as documented; Denies body ache(s), change in weight or chills Eyes Eyes: Denies acute decrease in peripheral vision, change in vision, double vision or loss of vision ENT ENT ED: Reports none; Denies ear pain, lip swelling, loss taste/smell, neck pain, otalgia or sore throat Cardiovascular Cardiovascular: Reports none; Denies abdominal pain, chest pain with activity, leg edema, lightheadedness, palpitations, rapid heart rate or syncope Respiratory/Chest Respiratory/Chest: Reports none; Denies change in mental status, dry cough, dyspnea, hemoptysis, shortness of breath at rest or shortness of breath with exertion Gastrointestinal Gastrointestinal: Reports none; Denies abdominal pain, change in stool character, diarrhea, hematemesis, hematochezia, melena, rectal bleeding or vomiting Genitourinary Genitourinary ED: Reports none; Denies abdominal discomfort, anuria, dysuria, genital pain or polyuria Musculoskeletal Musculoskeletal: Reports none and other Details: Left knee pain ; Denies arthralgias, back pain, difficulty walking, extremity pain, muscle weakness or m yalgias Integumentary Reports none; Denies abscess or rash Neurologic Neurologic: Reports none; Denies abnormal gait, confusion, focal weakness, frequent falls, headache(s), loss of vision, numbness, paresthesias, radicular pain, vertigo or weakness Psychiatric Psychiatric: Reports systems reviewed and no addt'l complaints, except as documented and none; Denies behavioral changes, confusion, difficulty concentrating, hallucinations, suicidal ideation, tactile hallucinations or visual hallucinations Endocrine Endocrinology: Denies none, cold intolerance, excessive sweating, fatigue or heat intolerance Hematologic/Lymphatic Hematologic/Lymphatic: Reports none; Denies anemia, easy bleeding or easy bruising Allergic/Immunologic Allergic/Immunologic ED: Denies as per HPI, none, lip swelling, mouth swelling, throat swelling, tongue swelling or hives EXAM Physical Exam Const Vital Signs: 08/24/21 01:34 Temperature 97.9 F Temperature Source Temporal Pulse Rate 99 Respiratory Rate 17 Blood Pressure 149/78 H Blood Pressure Mean 101 Pulse Ox 98 Oxygen Delivery Method Room Air Positive well nourished and well developed General Appearance ED: well developed and NAD HEENT Reports TM's clear and moist mucous membranes normocephalic and atraumatic; Negative for trauma or tenderness Tympanic Membrane ED: Yes TM's clear Eyes PERRL and EOMs intact bilaterally General Eye ED: Negative for pale conjunctiva or scleral icterus Neck no lymphadenopathy, supple and no JVD General: Negative for tenderness Chest Wall inspection of chest normal and palpation of chest normal Chest: Negative for tenderness Resp normal respiratory effort and clear to auscultation bilaterally Effort and Inspection: Negative for respiratory distress or pain with movement Auscultation: Negative for rhonchi, wheezes or diminished lung sounds Cardio regular rate, regular rhythm, S1 normal heart sound, S2 normal heart sound and no murmurs Peripheral Pulses: pulses 2+ throughout GI normal to inspection, nondistended, normoactive bowel sounds, soft to palpation, non-tender, non-distended and no masses Back/Spine no CVA tenderness and no thoracic nor lumbar tenderness Extremity Extremity Narrative: Left knee-patient has tenderness palpation over the medial joint line. No effusion noted. There is no ecchymosis or bruising. He has pain with flexion extension of the knee. Ligamentous exam difficult secondary to pain but no obvious laxity when performing anterior and posterior drawer test. No laxity noted with varus and valgus stress. General Extremety ED: Negative for edema General Extremity: Negative for edema Neuro oriented x3, CN's II-XII intact bilaterally, no sensory deficits noted and gait normal Sensorium / Orientation: awake, alert, oriented to person, oriented to place and oriented to time Motor Exam: strength 5/5 throughout and strength abnormal Psych mental status grossly normal Skin no rashes or lesions noted and no wounds MDM MDM MDM Narrative Medical decision making narrative: Patient will be given crutches and a knee immobilizer. Patient will be given a few Percocet for pain and advised to follow-up with his orthopedic surgeon. Discharge Plan Triage Chief Complaint: Lower Extremity Injury ED Provider: Abran Simeon Dx/Rx/DC Orders Clinical Impression: Knee sprain Instructions: ED Knee Sprain Prescriptions: New oxycodone-acetaminophen [oxycodone-acetaminophen] 1 TABLET tablet 1 tab PO Q6H PRN PRN (Reason: Pain) 3 Days Qty: 12 RF: 0 No Action NK RF: 0 Primary Care Provider: Care Physician,No Primary Referrals: Luis Koch DO [STAFF PHYSICIAN] - 3-5 Days Care Physician,No Primary [Primary Care Provider] - Disposition Disposition: Home, Self Care
[2021-08-24] MEDS: oxyCODONE 5 MG Tablet PO (02:06)
== END 2021-08-24 02:14 | disposition home or self-care (01) ==
LOC: ED 01:56
PROVIDERS: Emergency Provider Emergency Medicine; Visit Provider Emergency Medicine
DX: S83.92XA Sprain of unspecified site of left knee, initial encounter (principal); I25.2 Old myocardial infarction; X50.1XXA Overexertion from prolonged static or awkward postures, initial encounter
CPT/HCPCS: 99284

== ENCOUNTER 2021-08-25 03:05 | Observation (INO) | payer MEDICARE, MEDICAID, SELFPAY ==
--- NOTE | 2021-08-25 03:05 | ECHOCS_ITS ---
Reason For Study: CVA Procedure This was a 2D Doppler, Color Flow transthoracic echocardiogram. Contrast injection was performed. Exam performed portable in patient room. Left Ventricle Normal LV size. Moderate concentric left ventricular hypertrophy. Left ventricular systolic function is normal. The estimated ejection fraction is 60 %. No regional wall motion abnormalities noted. Right Ventricle Normal RV size. Normal systolic function. Atria Normal left atrium. Normal right atrium. Bubble contrast study negative for right to left interatrial shunt. Mitral Valve Normal mitral valve. Tricuspid Valve Normal tricuspid valve. Aortic Valve The aortic valve is not well visualized. Pulmonic Valve Normal pulmonic valve. Great Vessels Normal aortic root. The pulmonary artery is normal size. Normal inferior vena cava. Pericardium/Pleural No pericardial effusion. Medication Performed a rapid injection of agitated mix of 9 cc saline and 1cc air to assess for atrial septal defect. Diluted definity 3ml given slow IV push to enhance endocardial definition. MMode/2D Measurements & Calculations LVIDd: 5.7 cm IVSd: 1.5 cm Ao root diam: 2.8 cm LVIDs: 4.0 cm LVPWd: 1.5 cm RVDd: 3.8 cm FS: 29.8 % LAV(MOD-bp): 47.2 ml LVAd ap4: 28.7 cm2 SV(MOD-sp4): 49.0 ml LAV(MOD-bp) Indexed: 19.8 ml/m2 LVLd ap4: 9.0 cm LAV(MOD-sp2): 52.1 ml EDV(MOD-sp4): 77.3 ml LAV(MOD-sp4): 36.9 ml EDV(sp4-el): 77.9 ml LVAs ap4: 15.6 cm2 LVLs ap4: 7.9 cm ESV(MOD-sp4): 28.3 ml ESV(sp4-el): 26.1 ml EF(MOD-sp4): 63.4 % EF(sp4-el): 66.5 % SV(sp4-el): 51.8 ml LA A4 area: 16.8 cm2 LA dimension(2D): 4.4 cm RA A4 area: 12.6 cm2 Doppler Measurements & Calculations MV E max demetrius: 92.5 cm/sec Lat Peak E' Demetrius: 13.8 cm/sec Med Peak E' Demetrius: 10.6 cm/sec MV A max demetrius: 72.9 cm/sec E/E' lat: 6.7 E/E' med: 8.7 MV E/A: 1.3 Ao V2 max: 149.1 cm/sec LV V1 max: 133.5 cm/sec PA V2 max: 93.6 cm/sec Ao max P.9 mmHg LV V1 max P.1 mmHg Ao V2 mean: 97.7 cm/sec Ao mean P.4 mmHg Ao V2 VTI: 30.5 cm ECHO/Echo Complete W/ Contrast Interpretation Summary Normal LV size. Moderate concentric left ventricular hypertrophy. Left ventricular systolic function is normal. The estimated ejection fraction is 60 %. Bubble contrast study negative for right to left interatrial shunt. Contrast injection was performed. Ordering Physician: Yana Salmeron Performed By: Yolanda Hardin RDCS, RVT
[2021-08-25 06:27] VITALS: BP 136/87; PULSE 72; RESP 16; TEMP 36.6; O2SAT 98; BMI 45.8
--- NOTE | 2021-08-25 06:29 | PCM.HP.STD ---
HPI - General General Date of Admission: 08/25/21 Date of Service: 08/25/21 Chief Complaint: L facial paresthesias, LUE paresthesias HPI Narrative The patient is a 46 y/o M w/ PMHx: HTN, GERD, Allergic Rhinitis, Anxiety and Depression, Patient reported Hx CVA/UT x 2; however, no history of deficits and no history of PCI on no medications consistent with these diagnoses and has never seen a Nuclear Waste Process Operator, Frequent ED visits with MS complaints with requested for narcotic therapy with suspected malingering including on 08/24/21 at [facility] for L knee pain noted to have started 3 weeks prior discharged with crutches, knee immobilizer and small amount of pain regimen per ED physician with normal neurological evaluation at that time and discharge at ~ 2 pm (08/21/21 MRI L knee per [facility] evidence of fracture, mild osteoarthrosis of the patellofemoral compartment, questionable findings which may relate to suprapatellar fat pad impingement, mild patellar origin tendinosis) who then presented to the [facility] ED [facility] on 08/25/21 with complaint of onset 5 hours prior to initial outside facility ED evaluation with onset L sided facial droop with L sided facial paresthesias and in his LUE also with report of this happening in the past noted to have occurred following a high stress period and spouse who is present at the outside facility does report that this is currently the case with several ongoing events and stressors at home. He notes that when he had a similar presentation it was following the of his mother. He reports also has shaking of his extremities and occasional stuttering which he demonstrates during the evaluation. Work-up at the outside facility included VS: BP 136/84, HR 86, RR 17, 97% on RA, CT of the head with no acute intracranial findings, unremarkable CTA head and neck, CBC with WC 11.5, hemoglobin 13.9, MCV 79.6, platelets 349 without marked left shift, BMP with sodium 137, potassium 4.1, chloride 102, BUN/creatinine 21/1.16, glucose 141, troponin less than 4, EKG w/ SR without no acute evidence of ischemia. Discussed case with outside facility ED physician and given patient plan transition for possible stroke work-up requested that patient be administered Plavix 75 mg po x 1 as patient noted allergy to ASA. Patient additionally per outside facility ED was administered 1L NS. [facility] Medical History (Updated 08/25/21 @ 06:[address] Yana Salmeron MD) Diverticulitis large intestine Hypertension Morbid obesity Home Medications NK 08/24/21 [History Last Taken Unknown] oxycodone-acetaminophen 1 tab PO Q6H PRN PRN 3 Days #12 tablet 08/24/21 [Rx Last Taken Unknown] Allergy/AdvReac Type Severity Reaction Status Date / Time acetaminophen [From Vicodin] Allergy Rash Verified 08/11/21 20:43 codeine Allergy Anaphylaxis Verified 08/11/21 20:43 hydrocodone bitartrate Allergy Rash Verified 08/11/21 20:43 [From Vicodin] latex Allergy Swelling Verified 08/11/21 20:43 naproxen Allergy Hives Verified 08/24/21 01:33 ondansetron AdvReac Nausea Verified 08/11/21 20:43 [From Zofran (as hydrochloride)] Family History (Updated 08/25/21 @ 06:[address] Yana Salmeron MD) Mother Cancer other (Patient does not know his paternal family history.) Surgical History History of tonsillectomy and adenoidectomy Hx of appendectomy Hx of arthroscopy of right knee Hx of cholecystectomy Social History (Updated 08/25/21 @ 06:[address] Yana Salmeron MD) household members: spouse Smoking Status: Never smoker alcohol intake: never substance use type: does not use ROS ROS Narrative Admission Review of Systems: CONSTITUTIONAL: No weight loss, fever, chills, + weakness or fatigue. HEENT: + If he squints his eyes, he notes his L eye vision is blurry, improves when he does not. Eyes: No visual loss, blurred vision, double vision or yellow sclerae. Ears, Nose, Throat: No hearing loss, sneezing, congestion, runny nose or sore throat. SKIN: No rash or itching, lesions, wounds. CARDIOVASCULAR: No chest pain, chest pressure or chest discomfort, palpitations, edema, orthopnea, syncopal events. RESPIRATORY: No shortness of breath, cough or sputum, wheezing, hemoptysis. GASTROINTESTINAL: No anorexia, nausea, vomiting or diarrhea, abdominal pain, melena, BRBPR. GENITOURINARY: No dysuria, frequency, urgency or retention. NEUROLOGICAL: + Reported left-sided facial droop, paresthesias to the face and left upper extremity, intermittent stuttering, occasional extremity shaking, no headache, dizziness, syncope, paralysis, ataxia, change in bowel or bladder control, seizure. MUSCULOSKELETAL: + muscle, back pain, joint pain or stiffness. HEMATOLOGIC: + anemia, bleeding or bruising. LYMPHATICS: No enlarged nodes. No history of splenectomy. PSYCHIATRIC: + history of depression or anxiety. ENDOCRINOLOGIC: No reports of sweating, cold or heat intolerance. No polyuria or polydipsia. ALLERGIES: + rhinitis. Vital Signs Vital Signs Vital Signs: Weight Weight: 292 lb 5.327 oz Body Mass Index (BMI) 45.8 Physical Exam Narrative Physical Examination: General: Awake, alert, oriented x 3 and cooperative, seated upright in the PCU bed in no apparent distress, soft spoken. Skin: Normal color, normal turgor, no icterus, no cyanosis. HEENT: AT/NC, EOMI, PERRLA, MMM, no carotid bruits or JVD noted, only lower teeth, poor dentition, no obvious facial droop. Lungs: Diminished, mild decrease BL bases, appropriate effort, no rales, ronchi or wheezing. Heart: Regular rate and rhythm; no gallop, rub audible. Abdomen: Soft, morbidly obese, NTTP, no obvious distention, distant normal BS, no obvious evidence of HSM; however, habitus makes evaluation difficult. Extremities: No cyanosis, clubbing, or edema, ongoing left knee pain with recent injury 3 weeks prior. Neurological: Patient awake, alert, oriented as noted, cognitive function intact; pupils equally reactive to light and accommodation, cranial nerves II-XII grossly normal, moving all 4 extremities although difficult with left lower extremity given recent left knee injury, no specific focal deficits otherwise, subjective left upper extremity and left facial paresthesias, no obvious facial droop, negative Babinski, appropriate FTS and HTS, notes occasional stuttering which he does during exam but intermittently and also has purposely shaking, small of his extremities as if he were shivering, appears feigned. Psychiatric: Affect appears flat, no acute evidence of depressive or anxiety feelings. Assessment & Plan Assessment/Plan (1) TIA (transient ischemic attack): PLAN: The patient is a 46 y/o M w/ PMHx: HTN, GERD, Allergic Rhinitis, Anxiety and Depression, Patient reported Hx CVA/UT x 2; however, no history of deficits and no history of PCI on no medications consistent with these diagnoses and has never seen a Nuclear Waste Process Operator, Frequent ED visits with MS complaints with requested for narcotic therapy with suspected malingering including on 08/24/21 at [facility] for L knee with discharge to home who then presented to the [facility] ED [facility] on 08/25/21 with complaint of onset 5 hours prior to initial outside facility ED evaluation with onset L sided facial droop with L sided facial paresthesias and in his LUE also with report of this happening in the past noted to have occurred following a high stress period. #1. L sided ? Facial droop, paresthesias, LUE Paresthesias, intermittent stuttering and body shakes, need to Rule Out CVA/TIA, Suspect possibly malingering given significant ER visits with frequent narcotic requests: Will admit to PCU as a direct admission, will obtain MRI Brain, CTA head and neck performed at outside facility with no acute finding, ECHO will be obtained, PT/OT/Speech/Nutrition evaluation per protocol. Will consult Neurology for evaluation once MRI of the brain is obtained if appropriate. Will allow permissive HTN, maintain on plavix given ASA allergy per patient report, add high-dose statin w/ AM FLP, fall precautions. Magnesium, TSH, hemoglobin A1c requested. Given presentation and some malingering concerns will obtain UDS. If MRI does demonstrate CVA then would obtain hypercoaguable panel. #2. Patient reported Hx UT, Prior CVA: Patient reported Hx UT x 2; however, no catheterization history, no history of being evaluated by a Nuclear Waste Process Operator, suspect this description is in error, similar with CVA report and he has not been on any appropriate medications for nearly a decade since he has been claiming these diagnoses. Also of note significant other reported that his prior similar CVA event was during a period of notable stress and resolved completely once his stress was addressed. #3. Hypertension: Not on any regimen, will monitor blood pressure and given #1 continue with permissive hypertension for now, add oral regimen if appropriate, as needed agents per stroke protocol. #4. Hyperglycemia: Outside facility glucose 141, possibly stress response, hemoglobin A1c will be obtained as noted above. #5. Microcytic anemia, suspect iron deficiency: Admission hemoglobin 13.9, MCV 79.6, will obtain iron panel, ferritin, guaiac. #6. Morbid Obesity: Weight loss and lifestyle changes encouraged, nutrition consulted. #7. Left knee pain, unclear etiology: 08/21/21 MRI L knee per [facility] evidence of fracture, mild osteoarthrosis of the patellofemoral compartment, questionable findings which may relate to suprapatellar fat pad impingement, mild patellar origin tendinosis, currently following with [facility], encourage continued usage of patient's crutches given that he broke his immobilizer, offloading as able, will continue recent ED pain regimen only given the lingering concerns. #8. DVT prophylaxis: SCDs, Lovenox. Charges/Coding Visit Charges OBSV E&M: 84714 Initial observation care L3
[2021-08-25 06:35] VITALS: PULSE 77
[2021-08-25] MEDS: 0.9% Normal Saline 1,000 ML 100 ML IV (06:42)
[2021-08-25 06:45] LABS: Basophil# 0.05 X10^3/uL; Basophil% 0.6 % (0-1); Eosinophil# 0.39 X10^3/uL; Eosinophils% 4.6 % (0-5); Hematocrit 41.8 % (40-54); Hemoglobin 13.8 g/dL (13.0-16.5); Lymphocyte % 40.5 % (19-41); Mean Corpuscular Hgb 27.1 pg (27.0-32.0); Mean Corpuscular Volume 82.1 fL (80-94); Mean Platelet Vol. 9.2 fl (6.2-12.0); Monocyte# 0.56 X10^3/uL; Monocyte% 6.7 % (0-10); NRBC Flagged by Analyzer 0 % (0-5); Neutrophil # 3.98 X10^3/uL (2.7-7.7); Neutrophil % 47.4 % (47-70); Platelet Count 325 K/mm3 (150-450); RBC Distribution Width CV 13.6 % (11.6-14.6); RBC Distribution Width SD 40.6 fl (35.1-43.9); Red Blood Count 5.09 M/mm3 (4.6-6.2); White Blood Count 8.4 K/mm3 (4.4-11.0)
[2021-08-25 07:09] LABS: ALB/GLOB Ratio 0.9 RATIO (0.9-2.4); AST(SGOT) 18 U/L (15-37); Alanine Aminotransfer ALT/SGPT 37 U/L (16-61); Albumin, Serum 3.3 g/dL (3.2-5.0); Alkaline Phosphatase 102 U/L (45-117); Anion Gap 6 (5-15); BUN 17 mg/dL (7-18); BUN/Creat Ratio 19.7 RATIO (10-20); Calcium,Total 8.6 mg/dL (8.5-10.1); Chloride 105 mmol/L (98-107); Cholesterol 167 mg/dL (200); Creatinine, Serum 0.86 mg/dL (0.70-1.30); EST Glomerular Filtration Rate 102 mL/min (>60); Est Glom Filt Rate - Afr Amer 124 mL/min (>60); Estimated Creatinine Clearance 102.48 ml/min; Ferritin 70 ng/mL (26-388); Globulin 3.7 g/dL (2.2-4.2); Glucose 96 mg/dL (74-106); High Density Lipoprotein 34 mg/dL; Iron 82 ug/dL (65-175); Iron Binding Capacity,Total 384 ug/dL (250-450); Magnesium 2.1 mg/dL (1.6-2.6); PERCENT IRON SATURATION 21.4 % (15.0-55.0); Potassium 4.1 mmol/L (3.5-5.1); Sodium Level 137 mmol/L (136-145); Thyroid Stim Hormone (TSH) 2.79 uIU/mL (0.358-3.74); Triglycerides 74 mg/dL; Very Low Density Lipoprotein 15 mg/dL (5-40)
[2021-08-25 07:12] VITALS: O2SAT 96
[2021-08-25 07:26] VITALS: BMI 45.8
[2021-08-25 07:57] LABS: Hemoglobin A1c 5.5 % (3.8-5.6)
[2021-08-25 08:25] VITALS: BP 143/78; PULSE 70; RESP 18; TEMP 36.3; O2SAT 96
[2021-08-25] MEDS: Famotidine 20 MG Tablet PO (08:25)
[2021-08-25] MEDS: Clopidogrel Bisulfate 75 MG Tablet PO (08:26)
[2021-08-25] MEDS: oxyCODONE 5 MG Tablet PO ×2 (08:26→14:31)
[2021-08-25] MEDS: Enoxaparin 40 MG/0.4 ML Syringe SC (08:26)
[2021-08-25] MEDS: Acetaminophen 325 MG Tablet 650 MG PO ×2 (08:26→14:31)
--- NOTE | 2021-08-25 08:46 | VDLE_ITS ---
Reason For Study: Pain RIGHT LEFT GSV is normal. GSV is normal. CFV is compressible, spontaneous, phasic, CFV is compressible, spontaneous, phasic, competent and demonstrates normal competent, and demonstrates normal augmentation. augmentation. FV is compressible, spontaneous, phasic, FV is compressible, spontaneous, phasic, competent and demonstrates normal competent and demonstrates normal augmentation. augmentation. POP V is compressible, spontaneous, phasic, POP V is compressible, spontaneous, phasic, competent and demonstrates normal competent and demonstrates normal augmentation. augmentation. T/P Trunk is compressible. T/P Trunk is compressible. PTV is compressible. PTV is compressible. RT PerV is compressible. LT PerV is compressible. Procedure This is a venous duplex using B-mode, color flow and spectral Doppler. Exam performed portable in patient room. A preliminary report was called and/or faxed to Aw[facility] DOYLE. VL/Venous Duplex US - Mathew Extrem Interpretation Summary No evidence for acute deep venous thrombosis bilateral lower extremities with p atent and compressible bilateral great saphenous veins. Ordering Physician: Annette To Performed By: Yolanda Hardin, BRENT, RVT
--- NOTE | 2021-08-25 10:25 | MRI_ITS ---
EXAM: MR HEAD WITHOUT INTRAVENOUS CONTRAST CLINICAL INDICATION: TIA TECHNIQUE: Multiplanar and multisequence MR images of the brain were obtained without intravenous contrast. This report was created using [employer] report generation technology. COMPARISON: CT head without contrast 02/24/2013. FINDINGS: BRAIN AND EXTRA-AXIAL SPACES: Unremarkable. No intra- or extra-axial hemorrhage. No evidence of acute infarct. No intracranial mass or mass effect. There is preservation of the cai/white matter interface. Posterior fossa structures are unremarkable. Ventricles are appropriate for age. No hydrocephalus. Basal cisterns are patent. SELLA: Unremarkable. Normal sella turcica, pituitary gland, infundibular stalk, optic chiasm and hypothalamus. AUDITORY SYSTEM: Unremarkable. The internal auditory canals are patent. BONES/JOINTS: Unremarkable. No discrete lytic or blastic abnormalities. SINUSES: Unremarkable as visualized. Clear. MASTOID AIR CELLS: Unremarkable as visualized. Clear. ORBITS: Unremarkable as visualized. Both globes, extraocular muscles, optic nerves and retrobulbar fat appear unremarkable. VASCULATURE: Unremarkable as visualized. Normal flow voids in the major intracranial circulation. MRI/Brain without Contrast IMPRESSION: Normal MRI brain without intravenous contrast. Electronically Signed: Sidney Fleming MD at 11:28 EDT ,
[2021-08-25 14:25] VITALS: BP 146/90; PULSE 73; RESP 18; TEMP 36.3; O2SAT 97
--- NOTE | 2021-08-25 15:03 | PCM.DC.SUM ---
Providers Date of Admission: 08/25/21 Primary Care Physician: No Primary Care Phys Reason For Visit: CVA/TIA Diagnosis Discharge Diagnosis (1) TIA (transient ischemic attack): Status: Acute Code(s): G45.9 - Transient cerebral ischemic attack, unspecified Medications at Discharge Home Medications oxycodone-acetaminophen 1 tab PO Q6H PRN PRN 3 Days #12 tablet 08/24/21 Hospital Course Operations None Procedures 2-D Echocardiogram Summary of Care Provided Minutes Spent on Discharge: 35 Hospital Course: Patient is a 46 y/o male with a PMH as outlined who was admitted via the ED with a complaint of left facial and LUE parasthesias for about 5 hours prior to admission. He said he had had this happen before when he was under stress. he had had a left knee fracture about 3 weeks prior to admission, and was being managed conservatively. CT of the brain was negative for any acute intracranial pathology. CTA of the head and neck was also negative for any evidence of stenosis. HE was admitted to rule out a stroke. MRi of the brain was negative for any evidence of a stroke. 2D echo done showed EF of 60%, with no regional wall motion abnormalities and moderate concentric LV hypertrophy. Patient seen and examined. He still complained of some mild tingling in LUE. He also complained of some pain in his left calf. Review of systems was otherwise negative. Duplex of e LEs was done to rule out a DVT in light of his left neck fracture;. Duplex was negative. Labs and vitals reviewed. Home meds reviewed and reconciled. Physical Exam Const alert, oriented x3 and no apparent distress General Appearance: cooperative and comfortable Orientation / Consciousness: awake Exam Limitations: no limitations HEENT normocephalic Eyes PERRL, EOMs intact bilaterally and conjunctivae normal Resp normal respiratory effort, no retractions, no use of accessory muscles and clear to auscultation bilaterally Cardio regular rate, regular rhythm, S1 normal heart sound, S2 normal heart sound and no murmurs GI normal to inspection, nondistended, normoactive bowel sounds, soft to palpation, non-tender and non-distended Extremity Extremity Narrative: left knee in a brace; mild calf tenderness Skin no rashes or lesions noted and no wounds Neuro oriented x3 and CN's II-XII intact bilaterally Sensorium / Orientation: awake and alert Psych affect normal Weight / BMI Weight Weight: 292 lb 5.327 oz Body Mass Index (BMI) 45.8 ABG / Lab / Microbiology Data Result Diagrams: 08/25/21 06:28 08/25/21 06:28 Laboratory: Laboratory Results - last 24 hr 08/25/21 06:28: WBC 8.4, RBC 5.09, Hgb 13.8, Hct 41.8, MCV 82.1, MCH 27.1, MCHC 33.0, RDW Std Deviation 40.6, RDW Coeff of Mirlande 13.6, Plt Count 325, MPV 9.2, Immature Gran % (Auto) 0.200, Neut % (Auto) 47.4, Lymph % (Auto) 40.5, [place] % (Auto) 6.7, Eos % (Auto) 4.6, Baso % (Auto) 0.6, Absolute Neuts (auto) 4.0, Absolute Lymphs (auto) 3.40, Nucleated RBC % 0 08/25/21 06:28: Sodium 137, Potassium 4.1, Chloride 105, Carbon Dioxide 26.0, Anion Gap 6, BUN 17, Creatinine 0.86, Estim Creat Clear Calc 102.48, Est GFR (MDRD) Af Amer 124, Est GFR (MDRD) Non-Af 102, BUN/Creatinine Ratio 19.7, Glucose 96, Calcium 8.6, Magnesium 2.1, Iron 82, TIBC 384, Iron Saturation 21.4, Ferritin 70, Total Bilirubin 0.40, AST 18, ALT 37, Alkaline Phosphatase 102, Total Protein 7.0, Albumin 3.3, Globulin 3.7, Albumin/Globulin Ratio 0.9, Triglycerides 74, Cholesterol 167, LDL Cholesterol 118, VLDL Cholesterol 15, HDL Cholesterol 34 L, TSH 2.79 08/25/21 06:28: Hemoglobin A1c 5.5 08/25/21 09:20: Ur Drug Screen Comment Radiography Diagnostic Testing: Radiology Impression Echocardiogram 08/25/21 03:05 Interpretation Summary Normal LV size. Moderate concentric left ventricular hypertrophy. Left ventricular systolic function is normal. The estimated ejection fraction is 60 %. Bubble contrast study negative for right to left interatrial shunt. Contrast injection was performed. Ordering Physician: Yana Salmeron Performed By: Yolanda Hardin, BRENT, RVT Brain MRI 08/25/21 10:25 IMPRESSION: Normal MRI brain without intravenous contrast. Electronically Signed: Sidney Fleming MD at 11:28 EDT , D/C Instructions Discharge Diet: Low fat / Low cholesterol Discharge Activity: Return to Normal Activity Weight Bearing Status: Weight bearing as tolerated Call your doctor if you observe: Fever of 101 or Higher, Numbness or Tingling, Shortness of breath, Dizziness, Swelling in the ankles and Chest pain Meaningful Use Info Meaningful Use Diagnoses (Choose all that apply): None applicable Discharge Plan Admission Admit Date/Time: 08/25/21 06:11 Primary Reason for Your Visit: numbness and tingling of face Attending Provider: Annette To Primary Care Provider: Care Physician,No Primary Consulting Providers: Yana Salmeron Discharge Orders/Prescriptions Prescriptions: Continued oxycodone-acetaminophen 1 TABLET tablet 1 tab PO Q6H PRN PRN (Reason: Pain) 3 Days Qty: 12 RF: 0 Referrals / Follow Up: Laurence Escobar MD [STAFF PHYSICIAN] - Within 2 Weeks (see to establish PCP care) Care Physician,No Primary [Primary Care Provider] - Within 2 Weeks Disposition Disposition (needs filled in before D/C Order can be placed): Home, Self Care Charges/Coding Visit Charges OBSV E&M: 90191 Observ/hosp same date L2
== END 2021-08-25 15:20 | disposition home or self-care (01) ==
PROVIDERS: Admitting Provider Family Medicine; Visit Provider Student in an Organized Health Care Education/Training Program
DX: G45.9 Transient cerebral ischemic attack, unspecified (principal); E66.01 Morbid (severe) obesity due to excess calories; Z68.42 Body mass index [BMI] 45.0-49.9, adult; I10 Essential (primary) hypertension; M79.662 Pain in left lower leg; K21.9 Gastro-esophageal reflux disease without esophagitis; I25.2 Old myocardial infarction; M25.562 Pain in left knee
CPT/HCPCS: 36415; 70551; 80053; 80061; 82274; 82728; 83036; 83540; 83550; 83735; 84443; 85025; 93306; 93970; 94762; 96360; 96361; 96372; 97161; 97165; 97802; 99218; J7030; Q9957; A4216; C8929; G0378

== ENCOUNTER 2021-10-17 01:05 | Emergency (ER) | payer MEDICARE, MEDICAID, SELFPAY ==
[2021-10-17 01:05] VITALS: BP 151/78; PULSE 87; RESP 16; TEMP 36.3; O2SAT 98; BMI 44.8
[2021-10-17] MEDS: Ondansetron ODT 4 MG Tablet PO (02:05)
[2021-10-17] MEDS: morphine 10 MG/ML Syringe IM (02:06)
[2021-10-17] MEDS: Orphenadrine 60 MG/2 ML Ampul IM (02:07)
--- NOTE | 2021-10-17 02:46 | EDS_ITS ---
HPI History of Present Illness Chief Complaint: Back Narrative Narrative: Patient is a 46-year-old male with past medical history of mesenteric adenitis, hypertension and occasional low back pain. He states that this evening he sat up in bed and turned to talk to his and when he turned to the other direction had sudden onset pain in the right low back region. He denies any trauma or excessive activity prior to the onset of pain. He denies any loss of bowel or bladder control or IV drug use. He denies any hematuria. He states he has had symptoms similar to this in the past and as he cannot get the pain controlled at home presents for evaluation [facility] Medical History Diverticulitis large intestine Hypertension Morbid obesity Home Medications oxycodone-acetaminophen 5 mg-325 mg tablet 1 tab PO Q6H PRN PRN Pain 3 days #12 TABLETS 08/24/21 [Rx Last Taken Unknown] methocarbamol 500 mg tablet 1,000 mg PO Q6H PRN Muscle pain/spasm #56 tabs 10/17/21 [Rx Last Taken Unknown] oxycodone-acetaminophen 5 mg-325 mg tablet (Endocet) 1 tab PO Q6H PRN pain 3 days #12 tabs 10/17/21 [Rx Last Taken Unknown] Allergy/AdvReac Type Severity Reaction Status Date / Time acetaminophen [From Vicodin] Allergy Rash Verified 10/17/21 01:07 codeine Allergy Anaphylaxis Verified 10/17/21 01:07 hydrocodone bitartrate Allergy Rash Verified 10/17/21 01:07 [From Vicodin] latex Allergy Swelling Verified 10/17/21 01:07 naproxen Allergy Hives Verified 10/17/21 01:07 ondansetron AdvReac Nausea Verified 10/17/21 01:07 [From Zofran (as hydrochloride)] Family History (Updated 08/25/21 @ 06:[address] Yana Salmeron MD) Mother Cancer Surgical History History of tonsillectomy and adenoidectomy Hx of appendectomy Hx of arthroscopy of right knee Hx of cholecystectomy Social History (Updated 08/25/21 @ 06:[address] Yana Salmeron MD) household members: spouse Smoking Status: Never smoker alcohol intake: never substance use type: does not use ROS ROS ED Constitutional Constitutional ED: Denies chills or fever(s) ENT ENT ED: Denies sore throat Cardiovascular Cardiovascular: Denies chest pain Respiratory/Chest Respiratory/Chest: Denies cough or dyspnea Gastrointestinal Gastrointestinal: Denies abdominal pain, diarrhea, nausea or vomiting Genitourinary Genitourinary ED: Denies dysuria or hematuria Musculoskeletal Musculoskeletal: Reports back pain; Denies myalgias Integumentary Denies rash Neurologic Neurologic: Denies headache(s) or paresthesias Hematologic/Lymphatic Hematologic/Lymphatic: Denies easy bleeding or easy bruising EXAM Physical Exam Const Vital Signs: 10/17/21 01:05 Temperature 97.3 F L Temperature Source Temporal Pulse Rate 87 Respiratory Rate 16 Blood Pressure 151/78 H Blood Pressure Mean 102 Pulse Ox 98 Oxygen Delivery Method Room Air Positive well nourished, well developed and obese General Appearance ED: well developed Nutritional Appearance: obese Eyes PERRL and EOMs intact bilaterally Neck supple Resp normal respiratory effort and clear to auscultation bilaterally Cardio regular rate and regular rhythm Rate: other Other Details: Radial pulses are plus 2 out of 4 bilaterally are equal and symmetric Back/Spine Back/Spine Narrative: No bony deformity or step-off of the thoracic or lumbar spine no midline pain on palpation. There is right-sided paralumbar tenderness and spasm noted that worsens with extension and rotation. No saddle anesthesia. Negative straight leg raise. No clonus or Babinski. Patellar reflexes are plus 2 out of 4 bilaterally Extremity normal to inspection Neuro oriented x3 and CN's II-XII intact bilaterally Sensorium / Orientation: alert Psych mental status grossly normal Skin no rashes or lesions noted Skin Narrative: No overlying soft tissue changes to suggest trauma or infection MDM MDM MDM Narrative Medical decision making narrative: Patient presented to the ER mildly hypertensive but otherwise with stable vital. He had no report or signs of trauma and no risk factors for cauda equina or epidural abscess. Therefore at this time I felt no need for imaging or laboratory studies. Patient was medicated with IM morphine and Norflex and on reevaluation reported feeling better. Therefore at this time as his history and exam indicates this is most likely lumbosacral strain he will be given symptomatic medications and is otherwise safe for discharge. Discharge Plan Triage Chief Complaint: Back ED Provider: Marv Pack Dx/Rx/DC Orders Clinical Impression: Acute lumbosacral myofascial strain, Hypertension Instructions: ED Back Spasm, No Trauma, ED Back Sprain/Strain Prescriptions: New oxycodone-acetaminophen [Endocet] 5-325 mg tablet 1 tab PO Q6H PRN (Reason: pain) 3 Days Qty: 12 0RF methocarbamol 500 mg tablet 1,000 mg PO Q6H PRN (Reason: Muscle pain/spasm) Qty: 56 0RF No Action oxycodone-acetaminophen 1 TABLET tablet 1 tab PO Q6H PRN PRN (Reason: Pain) 3 Days Qty: 12 0RF Primary Care Provider: Care Physician,No Primary Referrals: Adriana Hardy MD [Med Staff - Data Support Specialist] - 1 Week if not improving Care Physician,No Primary [Primary Care Provider] - Activity Restrictions/Additional Instructions: Please continue to stretch and heat your low back to help reduce pain and speed healing and return to the ER should you have any further concerns Disposition Disposition: Home, Self Care
== END 2021-10-17 03:06 | disposition home or self-care (01) ==
PROVIDERS: Emergency Provider Emergency Medicine; Visit Provider Emergency Medicine
DX: S39.012A Strain of muscle, fascia and tendon of lower back, initial encounter (principal); Z68.41 Body mass index [BMI] 40.0-44.9, adult; E66.9 Obesity, unspecified; I88.0 Nonspecific mesenteric lymphadenitis; Z87.19 Personal history of other diseases of the digestive system; I10 Essential (primary) hypertension; X50.1XXA Overexertion from prolonged static or awkward postures, initial encounter
CPT/HCPCS: 96372; 99283

== ENCOUNTER 2021-10-27 23:52 | Emergency (ER) | payer MEDICARE, MEDICAID, SELFPAY ==
[2021-10-27 23:53] VITALS: BP 134/98; PULSE 103; RESP 16; TEMP 37; O2SAT 95; BMI 44.6
[2021-10-28] MEDS: oxyCODONE 5 MG Tablet PO (01:13)
--- NOTE | 2021-10-28 01:20 | RAD_ITS ---
STUDY: X-RAY - LEFT ELBOW REASON FOR EXAM: Male, 46 years old. injury TECHNIQUE: 4 view(s) of the elbow. COMPARISON: None. FINDINGS: Normal visualized humerus, radius and ulna. Normal radiocapitellar and ulnotrochlear articulations. The soft tissue structures are unremarkable. No joint effusion. There is a well corticated transverse lucency through the proximal radial shaft, suggestive of sequela of previous surgery. There is an elongated metallic radiopaque structure measuring 1.0 x 0.2 cm suggestive of prior surgery, clinical correlation recommended. RAD/Elbow min 3 Views IMPRESSION: Questionable postoperative changes of the proximal radius with clinical correlation recommended. Radiopaque structure as described. No acute fracture or subluxation. Electronically Signed: Danay Anna MD at 3:10 EDT ,
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
== END 2021-10-28 02:33 | disposition home or self-care (01) ==
PROVIDERS: Emergency Provider Emergency Medicine; Visit Provider Emergency Medicine
DX: S39.012A Strain of muscle, fascia and tendon of lower back, initial encounter (principal); I10 Essential (primary) hypertension; S53.402A Unspecified sprain of left elbow, initial encounter; Y04.0XXA Assault by unarmed brawl or fight, initial encounter
CPT/HCPCS: 12001; 73080; 99283

== ENCOUNTER 2021-11-26 00:30 | Emergency (ER) | payer MEDICARE, MEDICAID, SELFPAY ==
[2021-11-26 00:31] VITALS: BP 171/99; PULSE 85; RESP 16; TEMP 36.6; O2SAT 100; BMI 49.1
--- NOTE | 2021-11-26 01:36 | EX.ED.UPPERE ---
HPI History of Present Illness HPI Narrative: Patient presents with pain and swelling to his left forearm and upper arm that has been getting progressively worse over the past couple days. Patient states the pain became worse today. Patient states it is a throbbing pain. Patient states it is worse with movement of his left upper extremity. Patient admits to some tingling in his fingers but denies any weakness. Patient denies any trauma or injury. Patient states he sees Dr. Ochoa who ordered a CT scan of the upper extremity to be done as an outpatient. Patient states he has not had this done yet. Patient states he has been taking meloxicam with no improvement of his pain. Chief Complaint: Upper Extremity Injury Informant: patient Onset/Context/Timing Onset: Days Context: Gradual Onset Timing: Continuous Quality of Pain: Throbbing Location: Left arm and forearm Worsened by: Movement Relieved by: Nothing Associated Symptoms Associated Symptoms: Positive for Parasthesia; Negative for Weakness or Loss of Funtion PFSH PFSH Medical History Diverticulitis large intestine Hypertension Morbid obesity Home Medications meloxicam 7.5 mg tablet 7.5 mg PO DAILY 11/26/21 [History Last Taken Unknown] oxycodone-acetaminophen 5 mg-325 mg tablet 1 tab PO Q6H PRN PRN Pain 3 days #12 TABLETS 11/26/21 [Rx Last Taken Unknown] prednisone 10 mg tablet 10 mg PO Q4H PRN 11/26/21 [History Last Taken Unknown] Allergy/AdvReac Type Severity Reaction Status Date / Time acetaminophen [From Vicodin] Allergy Rash Verified 10/27/21 23:56 codeine Allergy Anaphylaxis Verified 10/27/21 23:56 hydrocodone bitartrate Allergy Rash Verified 10/17/21 01:07 [From Vicodin] latex Allergy Swelling Verified 10/27/21 23:56 naproxen Allergy Hives Verified 10/27/21 23:56 ondansetron AdvReac Nausea Verified 10/27/21 23:56 [From Zofran (as hydrochloride)] Family History Mother Cancer Surgical History History of tonsillectomy and adenoidectomy Hx of appendectomy Hx of arthroscopy of right knee Hx of cholecystectomy Social History household members: spouse Smoking Status: Never smoker alcohol intake: never substance use type: does not use ROS ROS ED Constitutional Constitutional ED: Denies chills or fever(s) Eyes Eyes: Denies blurry vision or change in vision ENT ENT ED: Denies rhinorrhea or sore throat Cardiovascular Cardiovascular: Denies chest pain or palpitations Respiratory/Chest Respiratory/Chest: Denies cough or dyspnea Gastrointestinal Gastrointestinal: Denies nausea or vomiting Genitourinary Genitourinary ED: Denies dysuria or hematuria Musculoskeletal Musculoskeletal: Denies back pain or neck pain Integumentary Denies abscess or rash Neurologic Neurologic: Reports paresthesias LUE; Denies headache(s) or weakness Allergic/Immunologic Allergic/Immunologic ED: Denies mouth swelling or urticaria EXAM Physical Exam Const Vital Signs: 11/26/21 00:31 Temperature 97.8 F Temperature Source Temporal Pulse Rate 85 Respiratory Rate 16 Blood Pressure 171/99 H Blood Pressure Mean 123 Pulse Ox 100 Oxygen Delivery Method Room Air Positive well nourished, well developed and obese General Appearance ED: well developed and NAD Nutritional Appearance: obese HEENT Reports moist mucous membranes Neck full ROM Extremity Extremity Narrative: There is tenderness over the left distal arm and forearm. There is some mild edema. There is no ecchymosis. Range of motion was limited in all motions of the left elbow and wrist secondary to pain. There is no deformity noted. There is a good radial pulse palpated. Sensation was intact to light touch in the radial, median, and ulnar areas. Strength is 5/5 in the radial, median, and ulnar areas. Forearm compartments are soft. General Extremety ED: Yes edema General Extremity: edema Neuro oriented x3, CN's II-XII intact bilaterally, moves all extremities, no focal motor deficits and no sensory deficits noted Sensorium / Orientation: alert Motor Exam: strength 5/5 throughout Psych mental status grossly normal MDM MDM MDM Narrative Medical decision making narrative: Patient was given a dose of morphine here. CBC shows a mild leukocytosis of 11.5. Sed rate was slightly elevated at 28. Basic metabolic profile was essentially within normal limits. C-reactive protein was slightly elevated at 11.2. Lactate was normal. CT scan of the left upper extremity was obtained. There is no acute abnormality noted. This was interpreted by the radiologist and reviewed by myself. Patient states he had minimal improvement with the morphine. Patient was given a dose of Dilaudid here. Patient was given a prescription for Percocet. Patient was instructed to follow-up with his orthopedic surgeon in 2 to 3 days. Patient understood and was agreeable with the plan. All questions were answered. Lab Data Attestation: I reviewed the patient's lab results. Discharge Plan Triage Chief Complaint: Upper Extremity Injury ED Provider: Patrick Moreno Dx/Rx/DC Orders Clinical Impression: Pain of left upper extremity, Morbid obesity with BMI of 45.0-49.9, adult Instructions: ED Pain, Acute, Uncertain Cause Prescriptions: New oxycodone-acetaminophen [oxycodone-acetaminophen] 5-325 mg tablet 1 tab PO Q6H PRN PRN (Reason: Pain) 3 Days Qty: 12 0RF No Action prednisone 10 mg tablet 10 mg PO Q4H PRN Label Comments: take 4 tablets by mouth daily for 5 days then 2 tablets daily for... (REFER TO PRESCRIPTION NOTES). meloxicam 7.5 mg tablet 7.5 mg PO DAILY Primary Care Provider: Care Physician,No Primary Referrals: Deandra Ochoa DO [Non-Staff] - 3-5 Days Care Physician,No Primary [Primary Care Provider] - Disposition Disposition: Home, Self Care
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
[2021-11-26 02:21] LABS: Absolute Lymphocyte Count 4.18 X10^3/uL (0.83-4.51); Basophil# 0.07 X10^3/uL; Basophil% 0.6 % (0-1); Eosinophil# 0.48 X10^3/uL; Eosinophils% 4.2 % (0-5); Hematocrit 40.9 % (40-54); Hemoglobin 13.5 g/dL (13.0-16.5); Lymphocyte # 4.18 X10^3/ul (0.83-4.51); Lymphocyte % 36.3 % (19-41); Mean Corpuscular Hgb 27.1 pg (27.0-32.0); Mean Corpuscular Volume 82.1 fL (80-94); Mean Platelet Vol. 9.6 fl (6.2-12.0); Monocyte% 6.1 % (0-10); NRBC Flagged by Analyzer 0 % (0-5); Neutrophil # 6.03 X10^3/uL (2.7-7.7); Neutrophil % 52.4 % (47-70); POSITIVE COUNT YES; Platelet Count 356 K/mm3 (150-450); RBC Distribution Width CV 13.7 % (11.6-14.6); RBC Distribution Width SD 40.5 fl (35.1-43.9); Red Blood Count 4.98 M/mm3 (4.6-6.2); White Blood Count 11.5 K/mm3 (4.4-11.0)
[2021-11-26 02:24] LABS: Erythrocyte Sedimentation Rate 28 mm/hr (0-20)
[2021-11-26 02:35] LABS: Anion Gap 6 (5-15); BUN 18 mg/dL (7-18); BUN/Creat Ratio 19.3 RATIO (10-20); Calcium,Total 8.7 mg/dL (8.5-10.1); Chloride 107 mmol/L (98-107); Creatinine, Serum 0.93 mg/dL (0.70-1.30); EST Glomerular Filtration Rate 93 mL/min (>60); Est Glom Filt Rate - Afr Amer 113 mL/min (>60); Estimated Creatinine Clearance 94.77 ml/min; Glucose 107 mg/dL (74-106); Potassium 3.9 mmol/L (3.5-5.1); Sodium Level 139 mmol/L (136-145)
[2021-11-26] MEDS: Morphine 4 MG/ML Syringe IM (02:38)
[2021-11-26 02:48] VITALS: RESP 16
[2021-11-26 02:53] LABS: Lactic Acid 0.7 mmol/L (0.4-1.9)
[2021-11-26] MEDS: HYDROmorphone 1 MG/ML Syringe 0.5 MG IV (04:07)
== END 2021-11-26 04:23 | disposition home or self-care (01) ==
PROVIDERS: Emergency Provider Emergency Medicine; Visit Provider Emergency Medicine
DX: M79.602 Pain in left arm (principal); E66.01 Morbid (severe) obesity due to excess calories; Z68.42 Body mass index [BMI] 45.0-49.9, adult; I10 Essential (primary) hypertension; R79.82 Elevated C-reactive protein (CRP)
CPT/HCPCS: 73200; 80048; 83605; 85025; 85652; 86140; 99282; A4216

== ENCOUNTER 2021-12-04 18:53 | Emergency (ER) | payer MEDICARE, MEDICAID, SELFPAY ==
[2021-12-04 18:54] VITALS: BP 146/79; PULSE 102; RESP 18; TEMP 36.2; O2SAT 97; BMI 45.7
--- NOTE | 2021-12-04 19:10 | RAD_ITS ---
STUDY: X-RAY XR Forearm 2 Views REASON FOR EXAM: Male, 46 years old. PAIN TECHNIQUE: XR Forearm 2 Views LEFT COMPARISON: None. FINDINGS: There is no demonstrated soft tissue swelling. There is evidence for prior ligament repair of the proximal visualized radius. Normal visualized ulna. RAD/Forearm 2 Views IMPRESSION: There are no acute findings. Electronically Signed: Francisco Montes MD at 19:50 EDT ,
--- NOTE | 2021-12-04 19:10 | RAD_ITS ---
STUDY: XR Hand Min 3 Views REASON FOR EXAM: Male, 46 years old. INJURY TECHNIQUE: XR Hand Min 3 Views LEFT COMPARISON: None. FINDINGS: Normal radiocarpal articulation. Normal distal radioulnar joint. Normal visualized carpal bones. Normal carpal articulations Normal carpometacarpal articulation of the thumb. Normal second through fifth carpometacarpal joints. Normal metacarpi. Normal metacarpophalangeal joint of the thumb. Normal interphalangeal joint of the thumb. Normal proximal and distal phalanges of the thumb. Normal metacarpophalangeal joints of the second through fifth fingers. Normal proximal and distal interphalangeal joints of the second through fifth fingers. Normal phalanges of the second through fifth fingers. The soft tissue structures are unremarkable. RAD/Hand Min 3 Views IMPRESSION: There are no acute findings. Electronically Signed: Francisco Montes MD at 19:52 EDT ,
[2021-12-04] MEDS: Ibuprofen 600 MG Tablet PO (20:05)
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
== END 2021-12-04 20:20 | disposition home or self-care (01) ==
PROVIDERS: Emergency Provider Emergency Medicine; Visit Provider Emergency Medicine
DX: S50.12XA Contusion of left forearm, initial encounter (principal); I10 Essential (primary) hypertension; Y99.0 Civilian activity done for income or pay; W11.XXXA Fall on and from ladder, initial encounter
CPT/HCPCS: 73090; 73130; 99283

== ENCOUNTER 2022-06-14 22:47 | Emergency (ER) | payer MEDICARE, MEDICAID, SELFPAY ==
[2022-06-14 22:48] VITALS: BP 151/8; PULSE 102; RESP 18; TEMP 36.5; O2SAT 96; BMI 46.0
--- NOTE | 2022-06-14 23:01 | EDS_ITS ---
HPI HPI - URI History of Present Illness Chief Complaint: Cold Sx Informant: patient Onset/Context/Timing Onset: Yesterday Context: Gradual Onset Timing: Continuous Quality: Aching Location: Generalized Worsened by: Swallowing Relieved by: - (Nothing) Associated Symptoms Associated Symptoms: Positive for Sinus Pressure, Myalgias, Nausea, Vomiting, Diarrhea and Productive Cough (Green sputum); Negative for Nasal Congestion, Headache, Shortness of Breath, Chest Pain, Nonproductive cough or Hemoptysis Narrative Narrative: Patient presents with sore throat, cough, body aches, and fatigue that began yesterday. Patient states he was exposed to somebody with COVID a couple of days ago. Patient states he feels achy all over. Patient states he is coughing up some green sputum. Patient midst to subjective fevers. Patient states the pain is worse over the right side of his throat. Patient states it is worse with swallowing. Patient states nothing seems to help with the aches or fevers. Patient admits to some nausea, vomiting, and diarrhea. Patient denies any chest pain or shortness of breath. ROS ROS ED Constitutional Constitutional ED: Reports chills, fever(s) and subjective Eyes Eyes: Denies blurry vision or change in vision ENT ENT ED: Reports sore throat; Denies rhinorrhea Cardiovascular Cardiovascular: Denies chest pain or palpitations Respiratory/Chest Respiratory/Chest: Reports cough and sputum; Denies dyspnea Gastrointestinal Gastrointestinal: Reports diarrhea, nausea and vomiting Genitourinary Genitourinary ED: Denies dysuria or hematuria Musculoskeletal Musculoskeletal: Reports myalgias; Denies back pain or neck pain Integumentary Denies abscess or rash Neurologic Neurologic: Denies headache(s) or weakness Allergic/Immunologic Allergic/Immunologic ED: Denies mouth swelling or urticaria [facility] Medical History Diverticulitis large intestine Hypertension Morbid obesity Home Medications meloxicam 7.5 mg tablet 7.5 mg PO DAILY 11/26/21 [History Last Taken Unknown] oxycodone-acetaminophen 5 mg-325 mg tablet 1 tab PO Q6H PRN PRN Pain 3 days #12 TABLETS 11/26/21 [Rx Last Taken Unknown] prednisone 10 mg tablet 10 mg PO Q4H PRN 11/26/21 [History Last Taken Unknown] ibuprofen 600 mg tablet 600 mg PO 4X/DAY PRN Pain Or Fever #20 tabs 12/04/21 [Rx Last Taken Unknown] Allergy/AdvReac Type Severity Reaction Status Date / Time acetaminophen [From Vicodin] Allergy Rash Verified 06/14/22 22:48 codeine Allergy Anaphylaxis Verified 06/14/22 22:48 hydrocodone bitartrate Allergy Rash Verified 06/14/22 22:48 [From Vicodin] latex Allergy Swelling Verified 06/14/22 22:48 naproxen Allergy Hives Verified 06/14/22 22:48 ondansetron AdvReac Nausea Verified 06/14/22 22:48 [From Zofran (as hydrochloride)] Family History Mother Cancer Surgical History History of tonsillectomy and adenoidectomy Hx of appendectomy Hx of arthroscopy of right knee Hx of cholecystectomy Social History household members: spouse Smoking Status: Never smoker alcohol intake: never substance use type: does not use EXAM Physical Exam Const Vital Signs: 06/14/22 22:48 Temperature 97.7 F L Temperature Source Temporal Pulse Rate 102 H Respiratory Rate 18 Blood Pressure 151/8 H Blood Pressure Mean 55 Pulse Ox 96 Oxygen Delivery Method Room Air Positive well nourished, well developed and obese General Appearance ED: well developed and NAD Nutritional Appearance: obese HEENT Reports moist mucous membranes HEENT Narrative: There is mild erythema of the oropharynx. There are no exudates noted. There is some mild right anterior cervical lymphadenopathy noted. Throat: posterior oropharynx abnormal Positive for erythema Neck supple and no JVD Resp normal respiratory effort and clear to auscultation bilaterally Cardio regular rate, regular rhythm and no murmurs GI normal to inspection, nondistended, normoactive bowel sounds and non-tender Palpation: soft Extremity normal to inspection General Extremety ED: Negative for edema or tenderness General Extremity: Negative for edema Neuro oriented x3, CN's II-XII intact bilaterally and no sensory deficits noted Sensorium / Orientation: alert Motor Exam: strength 5/5 throughout Psych mental status grossly normal Skin no rashes or lesions noted MDM MDM MDM Narrative Medical decision making narrative: Differential diagnosis includes COVID, influenza, strep pharyngitis, and other viral upper respiratory infection. COVID-19 rapid antigen will be obtained to assess for COVID infection. Influenza A and influenza B antigens will be obtained to assess for influenza infection. Rapid strep will be obtained to assess for strep pharyngitis. Lab Data Lab results narrative: Rapid strep was reviewed and was positive. COVID-19 rapid antigen was reviewed and was negative. Influenza A and influenza B rapid antigens were reviewed and were negative. Treatment and Re-Evaluation Narrative: Patient was advised of his findings. Patient was given injection of Bicillin here. Patient was instructed to continue Tylenol and ibuprofen as needed for any fevers. Patient was instructed to follow-up with his primary care physician in 5 to 7 days. Patient understood and was agreeable with the plan. All questions were answered. Discharge Plan Triage Chief Complaint: Cold Sx ED Provider: Patrick Moreno Dx/Rx/DC Orders Clinical Impression: Acute streptococcal pharyngitis, Morbid obesity with BMI of 45.0-49.9, adult Instructions: ED Pharyngitis, Strep (Confirmed) Prescriptions: No Action prednisone 10 mg tablet 10 mg PO Q4H PRN Label Comments: take 4 tablets by mouth daily for 5 days then 2 tablets daily for... (REFER TO PRESCRIPTION NOTES). meloxicam 7.5 mg tablet 7.5 mg PO DAILY oxycodone-acetaminophen [oxycodone-acetaminophen] 5-325 mg tablet 1 tab PO Q6H PRN PRN (Reason: Pain) 3 Days Qty: 12 0RF ibuprofen 600 mg tablet 600 mg PO 4X/DAY PRN (Reason: Pain Or Fever) Qty: 20 0RF Primary Care Provider: Care Physician,No Primary Referrals: Oj Hines MD [Med Staff - Active Staff] - 5-7 Days Care Physician,No Primary [Primary Care Provider] - Disposition Disposition: Home, Self Care Discharge Date/Time: 06/15/22 00:21
[2022-06-14] MEDS: Penicillin G Benzathine 1.2 MU/2 ML Syringe IM (23:57)
== END 2022-06-15 00:21 | disposition home or self-care (01) ==
PROVIDERS: Emergency Provider Emergency Medicine; Visit Provider Emergency Medicine
DX: J02.0 Streptococcal pharyngitis (principal); E66.01 Morbid (severe) obesity due to excess calories; Z68.42 Body mass index [BMI] 45.0-49.9, adult; M79.10 Myalgia, unspecified site; I10 Essential (primary) hypertension; R19.7 Diarrhea, unspecified; R11.2 Nausea with vomiting, unspecified
CPT/HCPCS: 87428; 87880; 99282

== ENCOUNTER 2022-07-10 22:22 | Emergency (ER) | payer MEDICARE, MEDICAID, SELFPAY ==
[2022-07-10 22:23] VITALS: BP 154/71; PULSE 114; RESP 18; TEMP 37; O2SAT 98
--- NOTE | 2022-07-10 22:51 | RAD_ITS ---
INDICATION: back pain EXAMINATION/TECHNIQUE: X-RAY - XR Spine Lumbar 2 or 3 Views COMPARISON: 08/11/2021. FINDINGS: VERTEBRAE: No fracture or subluxation. Mild spondylotic degenerative changes. No erosive changes. SOFT TISSUES: Unremarkable. INCLUDED ABDOMEN: Visualized upper abdomen is unremarkable. RAD/Lumbar Spine 2 or 3 Views IMPRESSION: Mild degenerative changes with no acute abnormality. Electronically Signed: Johnathan Montano DO at 0:13 EDT ,
--- NOTE | 2022-07-10 22:51 | RAD_ITS ---
INDICATION: back pain EXAMINATION/TECHNIQUE: X-RAY - XR Spine Thoracic 3 Views COMPARISON: None. FINDINGS: VERTEBRAE: No fracture or subluxation. Mild to moderate degenerative changes. No erosive changes. SOFT TISSUES: Unremarkable. INCLUDED CHEST AND ABDOMEN: Unremarkable. RAD/Thoracic Spine 3 Views IMPRESSION: Mild to moderate degenerative changes. No acute abnormality. Electronically Signed: Johnathan Montano DO at 0:14 EDT ,
--- NOTE | 2022-07-10 22:53 | ED.VIS.BACK ---
HPI History of Present Illness Chief Complaint: Back Narrative Narrative: 47-year-old male presenting with back pain. He points to the thoracic junction. He states he has pain that radiates from there down to the back of his gluteal region. He reports a mechanical fall yesterday in which he fell on his back. He had some pain and tried to take a hot bath. Today he was working on his car and notes he strained something. No loss of bladder or bowel control. No saddle anesthesia or paresthesia. Patient took Tylenol at home but states he did not take any ibuprofen because he does not have any and he cannot afford it. [facility] Medical History Diverticulitis large intestine Hypertension Morbid obesity Home Medications meloxicam 7.5 mg tablet 7.5 mg PO DAILY 11/26/21 [History Last Taken Unknown] oxycodone-acetaminophen 5 mg-325 mg tablet 1 tab PO Q6H PRN PRN Pain 3 days #12 TABLETS 11/26/21 [Rx Last Taken Unknown] prednisone 10 mg tablet 10 mg PO Q4H PRN 11/26/21 [History Last Taken Unknown] ibuprofen 600 mg tablet 600 mg PO 4X/DAY PRN Pain Or Fever #20 tabs 12/04/21 [Rx Last Taken Unknown] ibuprofen 600 mg tablet 600 mg PO Q8H PRN PRN pain #30 TABLETS 07/11/22 [Rx Last Taken Unknown] lidocaine 5 % topical patch 1 patch topical DAILY PRN pain #15 ea 07/11/22 [Rx Last Taken Unknown] tizanidine 4 mg tablet 4 mg PO Q8H PRN muscle spasticity #14 tabs 07/11/22 [Rx Last Taken Unknown] Allergy/AdvReac Type Severity Reaction Status Date / Time acetaminophen [From Vicodin] Allergy Rash Verified 07/10/22 22:22 codeine Allergy Anaphylaxis Verified 07/10/22 22:22 hydrocodone bitartrate Allergy Rash Verified 07/10/22 22:22 [From Vicodin] latex Allergy Swelling Verified 07/10/22 22:22 naproxen Allergy Hives Verified 07/10/22 22:22 ondansetron AdvReac Nausea Verified 07/10/22 22:22 [From Zofran (as hydrochloride)] Family History Mother Cancer Surgical History History of tonsillectomy and adenoidectomy Hx of appendectomy Hx of arthroscopy of right knee Hx of cholecystectomy Social History household members: spouse Smoking Status: Never smoker alcohol intake: never substance use type: does not use ROS ROS ED Constitutional Constitutional ED: Denies chills or fever(s) Eyes Eyes: Denies change in vision or diplopia ENT ENT ED: Denies rhinorrhea or sore throat Cardiovascular Cardiovascular: Denies chest pain or palpitations Respiratory/Chest Respiratory/Chest: Denies dyspnea or dyspnea on exertion Gastrointestinal Gastrointestinal: Denies abdominal pain or constipation Genitourinary Genitourinary ED: Denies dysuria or hematuria Musculoskeletal Musculoskeletal: Reports back pain Integumentary Denies abscess Neurologic Neurologic: Denies headache(s) or paresthesias Psychiatric Psychiatric: Denies anxiety EXAM Physical Exam Const Vital Signs: 07/10/22 22:23 Temperature 98.6 F Temperature Source Temporal Pulse Rate 114 H Respiratory Rate 18 Blood Pressure 154/71 H Blood Pressure Mean 98 Pulse Ox 98 Oxygen Delivery Method Room Air Positive well nourished General Appearance ED: NAD HEENT Reports moist mucous membranes Eyes PERRL and EOMs intact bilaterally Resp normal respiratory effort Cardio regular rate Rate: tachycardic GI normal to inspection, nondistended, normoactive bowel sounds Back/Spine Back/Spine Narrative: Tenderness to palpation adjacent to the thoracolumbar junction in the paraspinal musculature on the left. There is no obvious midline deformity or step-off. No rashes. Extremity normal to inspection Neuro oriented x3 Motor Exam: strength 5/5 throughout Psych mental status grossly normal Skin no rashes or lesions noted MDM MDM MDM Narrative Medical decision making narrative: Patient with back pain. Initially had a mechanical fall and he was doing okay but then started working on his car and he feels like he strained something in the mid back. He is tender around the thoracolumbar junction. Lidoderm patch was applied. Patient given Norflex IM and Toradol IM. Will obtain x-rays of the thoracic and lumbar spine. No evidence of cauda equina syndrome. X-rays of the lumbar and thoracic spine were obtained and on my interpretation and show no acute fracture. There is degenerative changes noted. On reevaluation at 1215 the patient is doing much better. He is comfortable in bed. He is able to move. He does still have some pain. I counseled him that this is likely take time to get better. I recommended alternating ice and heat. I gave prescription for muscle relaxers and ibuprofen. Return precautions were discussed. Impression: 1. Back contusion 2. Lumbar strain 3. Thoracic strain Radiography Diagnostic Testing: Clinical Impression(s) from Imaging Studies Lumbar Spine X-Ray 07/10/22 22:51 IMPRESSION: Mild degenerative changes with no acute abnormality. Electronically Signed: Johnathan Montano DO at 0:13 EDT , Thoracic Spine X-Ray 07/10/22 22:51 IMPRESSION: Mild to moderate degenerative changes. No acute abnormality. Electronically Signed: Johnathan Montaon DO at 0:14 EDT , Discharge Plan Triage Chief Complaint: Back ED Provider: Cj Rivas Dx/Rx/DC Orders Instructions: ED Back Contusion Prescriptions: New lidocaine 5 % adhesive patch,medicated 1 patch topical DAILY PRN (Reason: pain) Qty: 15 0RF Rx Instructions: leave on most painful area for up to 12 hrs tizanidine 4 mg tablet 4 mg PO Q8H PRN (Reason: muscle spasticity) Qty: 14 0RF ibuprofen 600 mg tablet 600 mg PO Q8H PRN PRN (Reason: pain) Qty: 30 0RF No Action prednisone 10 mg tablet 10 mg PO Q4H PRN Label Comments: take 4 tablets by mouth daily for 5 days then 2 tablets daily for... (REFER TO PRESCRIPTION NOTES). meloxicam 7.5 mg tablet 7.5 mg PO DAILY oxycodone-acetaminophen [oxycodone-acetaminophen] 5-325 mg tablet 1 tab PO Q6H PRN PRN (Reason: Pain) 3 Days Qty: 12 0RF ibuprofen 600 mg tablet 600 mg PO 4X/DAY PRN (Reason: Pain Or Fever) Qty: 20 0RF Primary Care Provider: Care Physician,No Primary Referrals: Oj Hines MD [Med Staff - Active Staff] - 3-5 Days Care Physician,No Primary [Primary Care Provider] - Disposition Disposition: Home, Self Care
[2022-07-10] MEDS: Orphenadrine 60 MG/2 ML Ampul IM (23:24)
[2022-07-10] MEDS: Ketorolac 15 MG/ML Vial IM (23:25)
[2022-07-10] MEDS: Lidocaine 5% Patch 1 PATCH TOPICAL (23:28)
== END 2022-07-11 01:15 | disposition home or self-care (01) ==
PROVIDERS: Emergency Provider Student in an Organized Health Care Education/Training Program; Visit Provider Student in an Organized Health Care Education/Training Program
DX: S39.012A Strain of muscle, fascia and tendon of lower back, initial encounter (principal); S29.019A Strain of muscle and tendon of unspecified wall of thorax, initial encounter; S20.229A Contusion of unspecified back wall of thorax, initial encounter; Z79.1 Long term (current) use of non-steroidal anti-inflammatories (NSAID); X58.XXXA Exposure to other specified factors, initial encounter; Y93.89 Activity, other specified
CPT/HCPCS: 72072; 72100; 99282

== ENCOUNTER 2022-07-18 12:39 | Outpatient (CLI) | payer MEDICARE, MEDICAID, SELFPAY ==
[2022-07-18 13:35] LABS: Hematocrit 43.4 % (40-54); Hemoglobin 13.7 g/dL (13.0-16.5); Mean Corp Hgb Conc 31.6 g/dL (32-36); Mean Corpuscular Volume 82.4 fL (80-94); Mean Platelet Vol. 9.5 fl (6.2-12.0); Platelet Count 392 K/mm3 (150-450); RBC Distribution Width SD 41.5 fl (35.1-43.9); Red Blood Count 5.27 M/mm3 (4.6-6.2); White Blood Count 9.8 K/mm3 (4.4-11.0)
[2022-07-18 14:08] LABS: ALB/GLOB Ratio 0.9 RATIO (0.9-2.4); AST(SGOT) 21 U/L (15-37); Alanine Aminotransfer ALT/SGPT 38 U/L (16-61); Albumin, Serum 3.5 g/dL (3.2-5.0); Alkaline Phosphatase 132 U/L (45-117); Anion Gap 2 (5-15); BUN 14 mg/dL (7-18); BUN/Creat Ratio 15.7 RATIO (10-20); Calcium,Total 8.6 mg/dL (8.5-10.1); Chloride 106 mmol/L (98-107); Cholesterol 182 mg/dL (200); Creatinine, Serum 0.89 mg/dL (0.70-1.30); EST Glomerular Filtration Rate 98 mL/min (>60); Est Glom Filt Rate - Afr Amer 119 mL/min (>60); Globulin 4.1 g/dL (2.2-4.2); Glucose 108 mg/dL (74-106); High Density Lipoprotein 33 mg/dL; Potassium 3.8 mmol/L (3.5-5.1); Protein, Total 7.6 g/dL (6.4-8.2); Sodium Level 134 mmol/L (136-145); Triglycerides 106 mg/dL; Very Low Density Lipoprotein 21 mg/dL (5-40)
[2022-07-18 14:09] LABS: Hemoglobin A1c 5.6 % (3.8-5.6)
== END 2022-07-18 23:59 | disposition home or self-care (01) ==
LOC: LAB 12:41
DX: I25.2 Old myocardial infarction (principal); E66.9 Obesity, unspecified; R73.03 Prediabetes
CPT/HCPCS: 36415; 80053; 80061; 83036; 85027

== ENCOUNTER 2022-09-15 03:54 | Emergency (ER) | payer MEDICARE, MEDICAID, SELFPAY ==
[2022-09-15 03:55] VITALS: BP 136/60; PULSE 84; RESP 19; TEMP 36.9; O2SAT 94; BMI 46.5
--- NOTE | 2022-09-15 04:06 | EKG12_ITS ---
Test Reason : ABD PAIN Blood Pressure : / mmHG Vent. Rate : 083 BPM Atrial Rate : 083 BPM P-R Int : 180 ms QRS Dur : 076 ms QT Int : 368 ms P-R-T Axes : 040 008 040 degrees QTc Int : 432 ms Normal sinus rhythm Low voltage QRS Borderline ECG Confirmed by DAYNE BOONE, ANDREW ([id number]), editorial assistant JASMIN CEDEÑO ([id number]) on 09/16/2022 1:03:41 PM Referred By: PL Confirmed By:ANDREW OSCAR MD
--- NOTE | 2022-09-15 04:07 | EDS_ITS ---
HPI History of Present Illness Chief Complaint: Abd Pain Informant: patient Narrative Narrative: Patient presents with abdominal pain. Patient states he has been having abdominal pain since . He was seen at [facility]. They did a work-up that sounds like includes blood work and a CAT scan. He was told that the CAT scan showed something in the bowels that could be stool but they were not sure what it was but they need to follow-up with the surgeon. Patient states he still having pain mostly in the upper abdomen. He is still moving the bowels. He has noticed some red blood in the stools. But he is moving his bowels 1 to maybe 3 times a day. They are formed. He has had some nausea. He did vomit once today. There might have been some red material in it but he is not sure of that. He is on no blood thinners. He has no back or flank pain. Patient has had cholecystectomy appendectomy bowel resection for a localized colon cancer with clean margins and what sounds like bowel resection for diverticulitis. His last surgery was at least couple years ago. He has had surgery by Dr. Jason Andersen from [facility]. Patient has not had any fevers or chills. [facility] Medical History Diverticulitis large intestine Hypertension Morbid obesity Home Medications Lamictal 09/15/22 [History Last Taken Unknown] bupropion HCl 150 mg 24 hr tablet, extended release 150 mg PO DAILY 09/15/22 [History Last Taken Unknown] omeprazole 20 mg capsule,delayed release 20 mg PO DAILY #30 CAPSULES 09/15/22 [Rx Last Taken Unknown] promethazine 25 mg tablet 25 mg PO TID PRN nausea and vomiting #10 tabs 09/15/22 [Rx Last Taken Unknown] sucralfate 1 gram tablet (Carafate) 1 g PO BID #14 tabs 09/15/22 [Rx Last Taken Unknown] Allergy/AdvReac Type Severity Reaction Status Date / Time acetaminophen [From Vicodin] Allergy Rash Verified 07/10/22 22:22 codeine Allergy Anaphylaxis Verified 07/10/22 22:22 hydrocodone bitartrate Allergy Rash Verified 07/10/22 22:22 [From Vicodin] latex Allergy Swelling Verified 07/10/22 22:22 naproxen Allergy Hives Verified 07/10/22 22:22 ondansetron AdvReac Nausea Verified 07/10/22 22:22 [From Zofran (as hydrochloride)] Family History Mother Cancer Surgical History History of tonsillectomy and adenoidectomy Hx of appendectomy Hx of arthroscopy of right knee Hx of cholecystectomy Social History household members: spouse Smoking Status: Never smoker alcohol intake: never substance use type: does not use ROS ROS ED ROS Narrative A complete review of systems was performed and is negative except as documented in the history of present illness. Some specific details below. Constitutional: No recent fevers or chills. EYE: No visual complaints or pain. ENT: No difficulty swallowing. No swelling. No pain. No GERD symptoms that I can get from the patient. CV: No chest pain or palpitations. Respiratory: No dyspnea. No hemoptysis. No difficulty taking breaths. GI: Please see history of present illness. : No frequency dysuria or hematuria. Musculoskeletal: No recent trauma. No pains. Skin: No rash. Nondiaphoretic. Neuro: No weakness or numbness. Endocrine: No polyuria or polydipsia. EXAM Physical Exam Narrative Exam Narrative: CONSTITUTIONAL: Patient is nontoxic in appearance. The patient looks comfortable. HEENT: No notable trauma. Mucous membranes moist. No sinus tenderness. No indication of pain with swallowing. No exudate or erosions. EYES: No conjunctival injection. No proptosis. No notable pallor. CARDIOVASCULAR: Regular rate. Regular rhythm. No notable murmur. No JVD. RESPIRATORY: No respiratory distress. Breathing is unlabored. No wheezes. No rhonchi. No rales. No pain with a deep breath. GASTROINTESTINAL: Not distended. Bowel sounds are normal. Patient does have some epigastric area tenderness. No guarding. No rebound. No palpable mass. No bruit. GENITOURINARY: No tenderness over the bladder. No CVA tenderness. MUSCULOSKELETAL: Atraumatic. No peripheral edema. No cord. No tenderness along the deep venous system. No asymmetry. NEUROLOGICAL: Patient is alert and appropriate. No focal deficit noted. SKIN: No noted rashes. No diaphoresis. PSYCHIATRIC: Patient is calm. Mood is appropriate. Const Vital Signs: 09/15/22 03:55 09/15/22 05:15 Temperature 98.4 F Temperature Source Oral Pulse Rate 84 80 Respiratory Rate 19 H 15 Blood Pressure 136/60 H 135/65 H Blood Pressure Mean 85 88 Pulse Ox 94 100 Oxygen Delivery Method Room Air Room Air MDM MDM MDM Narrative Medical decision making narrative: Patient CBC shows minimal elevation of white count but normal platelets and hemoglobin. Patient's electrolytes are normal. Glucose is normal. Patient's liver function test are normal other than a mild nonspecific elevation of alkaline phosphatase to 121. Patient's lipase is normal. Patient's urine is normal. My independent interpretation of the CT shows no acute process. I see no obstruction ileus pancreatic inflammation or free air. Final reading shows no acute findings in the abdomen or pelvis. Patient has been having epigastric area abdominal pain. He gets some mild nausea. He says he thinks he may have seen a little blood in the stool. But his hemoglobin is stable. This is most likely gastritis/ulcer disease. But I do not think he needs to come in the hospital at this point. We will get him on meds for this. We discussed reasons to return. We also discussed diet. Patient had been eating walking tacos recently. We discussed liquid diet. We discussed avoiding tomato sauces and acidic foods and drinks. We discussed bland diet starting with a clear diet and then slowly increasing. Lab Data Attestation: I reviewed the patient's lab results. Labs: Laboratory Results - last 24 hr 09/15/22 09/15/22 09/15/22 04:10 04:10 04:25 WBC 12.1 H RBC 5.24 Hgb 13.9 Hct 43.0 MCV 82.1 MCH 26.5 L MCHC 32.3 RDW Std Deviation 39.7 RDW Coeff of Mirlande 13.4 Plt Count 406 MPV 9.4 Immature Gran % (Auto) 0.300 Neut % (Auto) 59.7 Lymph % (Auto) 31.7 [place] % (Auto) 4.9 Eos % (Auto) 3.0 Baso % (Auto) 0.4 Absolute Neuts (auto) 7.2 Absolute Lymphs (auto) 3.84 Nucleated RBC % 0 Sodium 140 Potassium 3.5 Chloride 106 Carbon Dioxide 27.0 Anion Gap 7 BUN 10 Creatinine 0.98 Estim Creat Clear Calc 89.00 Est GFR (MDRD) Af Amer 107 Est GFR (MDRD) Non-Af 88 BUN/Creatinine Ratio 10.2 Glucose 93 Calcium 9.1 Total Bilirubin 0.20 AST 10 L ALT 21 Alkaline Phosphatase 121 H Total Protein 7.4 Albumin 3.3 Globulin 4.1 Albumin/Globulin Ratio 0.8 L Lipase 22 Urine Color Yellow Urine Clarity Clear Urine pH 5.0 Ur Specific [place] 1.025 Urine Protein 15 H Urine Glucose (UA) Normal Urine Ketones Negative Urine Occult Blood 10 H Urine Nitrite Negative Urine Bilirubin Negative Urine Urobilinogen Normal Ur Leukocyte Esterase Negative Urine RBC 0 SEEN Urine WBC 0 SEEN Ur Squamous Epith Cells 0 SEEN Urine Bacteria 0 SEEN Urine Mucus 0 SEEN Radiography Diagnostic Testing: Clinical Impression(s) from Imaging Studies Abdomen/Pelvis CT 09/15/22 05:45 IMPRESSION: No acute findings in the abdomen or pelvis. Electronically Signed: Francisco Baker MD at 6:16 EDT , EKG Initial EKG: Comments: My independent interpretation the patient's EKG done for upper abdominal pain shows a normal sinus rhythm. Overall rate is 83. No ventricular or supraventricular ectopy. No acute ST elevation or depression. MO interval, QRS duration and QTc are normal. Discharge Plan Triage Chief Complaint: Abd Pain ED Provider: Lion Batista Dx/Rx/DC Orders Clinical Impression: Abdominal pain, History of bloody stools, Gastritis Instructions: ED Gastritis (Adult), ED Abdominal Pain Unkn Cause Male... Prescriptions: New omeprazole [omeprazole] 20 mg capsule,delayed release(DR/EC) 20 mg PO DAILY Qty: 30 0RF sucralfate [Carafate] 1 gram tablet 1 g PO BID Qty: 14 0RF promethazine 25 mg tablet 25 mg PO TID PRN (Reason: nausea and vomiting) Qty: 10 0RF No Action bupropion HCl 150 mg tablet extended release 24 hr 150 mg PO DAILY Label Comments: take 1 tablet by mouth every morning Lamictal [facility] - 3-5 Days if not improving Disposition Disposition: Home, Self Care
[2022-09-15 04:17] LABS: Absolute Lymphocyte Count 3.84 X10^3/uL (0.83-4.51); Absolute Neutrophil Count 7.2 X10^3/uL (2.0-7.7); Basophil# 0.05 X10^3/uL; Basophil% 0.4 % (0-1); Eosinophil# 0.36 X10^3/uL; Hemoglobin 13.9 g/dL (13.0-16.5); Lymphocyte # 3.84 X10^3/ul (0.83-4.51); Lymphocyte % 31.7 % (19-41); Mean Corp Hgb Conc 32.3 g/dL (32-36); Mean Corpuscular Hgb 26.5 pg (27.0-32.0); Mean Corpuscular Volume 82.1 fL (80-94); Mean Platelet Vol. 9.4 fl (6.2-12.0); Monocyte# 0.59 X10^3/uL; Monocyte% 4.9 % (0-10); NRBC Flagged by Analyzer 0 % (0-5); Neutrophil # 7.23 X10^3/uL (2.7-7.7); Neutrophil % 59.7 % (47-70); Platelet Count 406 K/mm3 (150-450); RBC Distribution Width CV 13.4 % (11.6-14.6); RBC Distribution Width SD 39.7 fl (35.1-43.9); Red Blood Count 5.24 M/mm3 (4.6-6.2); White Blood Count 12.1 K/mm3 (4.4-11.0)
[2022-09-15 04:29] LABS: Bacteria 0 SEEN /hpf (None Seen); Mucous, Urine 0 SEEN /hpf (<or=2+); Red Blood Cells-Urine 0 SEEN /hpf (0-5); Squamous Epithelial Cells - UA 0 SEEN /hpf (0-5); White Blood Cells 0 SEEN /hpf (0-5)
[2022-09-15 04:31] LABS: Color, Urine Yellow (Yellow); Glucose, Dipstick Normal (Normal); Ketone-Dipstick Negative (Negative); Leukocyte Esterase-Dipstick Negative /ul (Negative); Nitrite-Dipstick Negative (Negative); Occult Blood-Urine 10 /ul (Negative); Protein-Dipstick 15 mg/dl (Negative); Specific Gravity, Urine 1.025 (1.002-1.030); Urine Bilirubin Dipstick Negative (Negative); Urine Clarity Clear (Clear); Urine Urobilinogen Normal (Normal)
[2022-09-15] MEDS: proMETHazine 25 MG/ML Syringe 12.5 MG IM (04:31)
[2022-09-15] MEDS: 0.9% Normal Saline 1,000 ML 1000 ML IV (04:31)
[2022-09-15] MEDS: Morphine 4 MG/ML Syringe IV ×2 (04:31→06:00)
[2022-09-15 04:55] LABS: BUN 10 mg/dL (7-18); Glucose 93 mg/dL (74-106)
[2022-09-15 04:56] LABS: ALB/GLOB Ratio 0.8 RATIO (0.9-2.4); AST(SGOT) 10 U/L (15-37); Alanine Aminotransfer ALT/SGPT 21 U/L (16-61); Albumin, Serum 3.3 g/dL (3.2-5.0); Alkaline Phosphatase 121 U/L (45-117); BUN/Creat Ratio 10.2 RATIO (10-20); Calcium,Total 9.1 mg/dL (8.5-10.1); Creatinine, Serum 0.98 mg/dL (0.70-1.30); EST Glomerular Filtration Rate 88 mL/min (>60); Est Glom Filt Rate - Afr Amer 107 mL/min (>60); Globulin 4.1 g/dL (2.2-4.2); Lipase 22 U/L (13-75); Protein, Total 7.4 g/dL (6.4-8.2)
[2022-09-15 04:57] LABS: Anion Gap 7 (5-15); Chloride 106 mmol/L (98-107); Potassium 3.5 mmol/L (3.5-5.1); Sodium Level 140 mmol/L (136-145)
[2022-09-15 05:15] VITALS: BP 135/65; PULSE 80; RESP 15; O2SAT 100
--- NOTE | 2022-09-15 05:45 | CT_ITS ---
EXAM: CT ABDOMEN AND PELVIS WITH INTRAVENOUS CONTRAST CLINICAL INDICATION: pain -- IV PO Contrast TECHNIQUE: Helically acquired images were obtained of the abdomen and pelvis with intravenous contrast. This CT exam was performed using one or more of the following dose reduction techniques: automated exposure control, adjustment of the mA and/or kV according to patient size, and/or use of iterative reconstruction technique. CONTRAST: Oral and amp; IV Gastrografin and amp; 100mL [id number] COMPARISON: CT abdomen and pelvis 01/16/2021 FINDINGS: LOWER THORAX: Unremarkable. Lung bases are clear. No cardiomegaly. No significant pericardial effusion. ABDOMEN: LIVER: Unremarkable. Homogeneous. No focal mass. GALLBLADDER AND BILE DUCTS: Cholecystectomy. No intra- or extrahepatic biliary ductal dilation. PANCREAS: Unremarkable. No focal cystic or solid mass. SPLEEN: Unremarkable. Normal size without focal cystic or solid mass. ADRENALS: Unremarkable. No nodules. KIDNEYS AND URETERS: Unremarkable. Normal renal size and position. No hydronephrosis. STOMACH AND BOWEL: Prior surgical changes with anastomosis at the sigmoid colon. No stomach or bowel distention. No focal inflammatory change. PELVIS: APPENDIX: No evidence of acute appendicitis. BLADDER: Unremarkable. REPRODUCTIVE: Unremarkable as visualized. No mass. ABDOMEN and PELVIS: INTRAPERITONEAL SPACE: Unremarkable. No ascites or other fluid collection. No free air. BONES/JOINTS: Degenerative changes of the spine. No suspicious lytic or blastic abnormality. SOFT TISSUES: Small fat-containing periumbilical hernia. Fat-containing inguinal hernias. VASCULATURE: Unremarkable. Abdominal aorta is non-dilated. LYMPH NODES: Unremarkable. No enlarged lymph nodes. CT/Abdomen/Pelvis WITH Contrast IMPRESSION: No acute findings in the abdomen or pelvis. Electronically Signed: Francisco Baker MD at 6:16 EDT ,
== END 2022-09-15 06:37 | disposition home or self-care (01) ==
PROVIDERS: Emergency Provider Emergency Medicine; Visit Provider Emergency Medicine
DX: R10.9 Unspecified abdominal pain (principal); I10 Essential (primary) hypertension; Z90.49 Acquired absence of other specified parts of digestive tract; K29.70 Gastritis, unspecified, without bleeding; Z85.038 Personal history of other malignant neoplasm of large intestine
CPT/HCPCS: 74177; 80053; 81001; 83690; 85025; 93005; 96361; 96372; 96374; 96376; 99282; J7030; Q9967; A4216

== ENCOUNTER 2022-11-20 01:17 | Emergency (ER) | payer MEDICARE, MEDICAID, SELFPAY ==
[2022-11-20 01:18] VITALS: BP 160/86; PULSE 91; RESP 15; TEMP 36.2; O2SAT 98; BMI 45.3
--- NOTE | 2022-11-20 02:03 | EDS_ITS ---
HPI HPI - GI History of Present Illness Chief Complaint: Abd Pain Informant: patient Abdominal Pain/Flank Pain Onset: Days (2) Context: Sudden Onset Timing: Continuous Quality: Sharp Location: RUQ Current Severity: Severe Worsened by: Nothing Relieved by: Nothing Nausea/Vomiting/Emesis GI Symptom: Negative for Nausea or Vomiting Diarrhea/Melena/Hematochezia GI Symptom: Positive for Diarrhea; Negative for Melena or Hematochezia Associated Symptoms Associated Symptoms: Positive for Frequency; Negative for Dysuria or Hematuria Narrative Narrative: Patient presents with abdominal pain that has been constant for the past 2 days. Patient states the pain began rather suddenly. Patient states pain is mainly over the right upper abdomen. Patient states nothing makes it better nothing makes it worse. Patient states she has had an appendectomy and cholecystectomy. Patient denies any nausea or vomiting. Patient admits to some diarrhea. Patient denies any melena or hematochezia. Patient admits to some urinary frequency but denies any dysuria or hematuria. Patient admits to a cough with some yellow sputum. Patient states last thing he had to eat tonight was cheese puffs a few hours ago. PFSH PFSH Medical History (Updated 11/20/22 @ 03:[address] Patrick Moreno DO) Diverticulitis large intestine Hypertension Morbid obesity Home Medications oxycodone-acetaminophen 5 mg-325 mg tablet 1 tab PO Q6H PRN PRN Pain 3 days #12 TABLETS 11/20/22 [Rx Last Taken Unknown] Allergy/AdvReac Type Severity Reaction Status Date / Time acetaminophen [From Vicodin] Allergy Rash Verified 11/20/22 01:23 codeine Allergy Anaphylaxis Verified 11/20/22 01:23 hydrocodone bitartrate Allergy Rash Verified 11/20/22 01:23 [From Vicodin] latex Allergy Swelling Verified 11/20/22 01:23 naproxen Allergy Hives Verified 11/20/22 01:23 ondansetron AdvReac Nausea Verified 11/20/22 01:23 [From Zofran (as hydrochloride)] Family History Mother Cancer Surgical History (Updated 11/20/22 @ 02:[address] Patrick Moreno DO) History of tonsillectomy and adenoidectomy Hx of appendectomy Hx of arthroscopy of right knee Hx of cholecystectomy Hx of foot surgery Hx of hand surgery Social History household members: spouse Smoking Status: Never smoker alcohol intake: never substance use type: does not use ROS ROS ED Constitutional Constitutional ED: Denies chills or fever(s) Eyes Eyes: Denies blurry vision or change in vision ENT ENT ED: Denies rhinorrhea or sore throat Cardiovascular Cardiovascular: Denies chest pain or palpitations Respiratory/Chest Respiratory/Chest: Reports cough and sputum; Denies dyspnea Gastrointestinal Gastrointestinal: Reports abdominal pain and diarrhea; Denies nausea or vomiting Genitourinary Genitourinary ED: Denies dysuria or hematuria Musculoskeletal Musculoskeletal: Reports back pain; Denies neck pain Integumentary Denies abscess or rash Neurologic Neurologic: Denies headache(s) or weakness Allergic/Immunologic Allergic/Immunologic ED: Denies mouth swelling or urticaria EXAM Physical Exam Const Vital Signs: 11/20/22 01:18 Temperature 97.2 F L Temperature Source Temporal Pulse Rate 91 Respiratory Rate 15 Blood Pressure 160/86 H Blood Pressure Mean 110 Pulse Ox 98 Oxygen Delivery Method Room Air Positive well nourished, well developed and obese General Appearance ED: well developed and NAD Nutritional Appearance: obese HEENT Reports moist mucous membranes Neck supple and no JVD Resp normal respiratory effort and clear to auscultation bilaterally Cardio regular rate and regular rhythm GI Palpation: soft and tender epigastric, RLQ, LUQ and RUQ; Negative for guarding or rebound tenderness present Neuro CN's II-XII intact bilaterally, moves all extremities and no sensory deficits noted Sensorium / Orientation: alert Motor Exam: strength 5/5 throughout Psych mental status grossly normal MDM MDM MDM Narrative Medical decision making narrative: Differential diagnosis includes choledocholithiasis, hepatitis, pancreatitis, ureteral calculus, pyelonephritis, gastritis, duodenal ulcer, peptic ulcer disease, bowel obstruction, and bowel perforation. CBC will be obtained to assess for leukocytosis and anemia. Comprehensive metabolic profile will be obtained to assess for hepatic function, renal function, and electrolyte abnormality. Lipase will be obtained to assess for pancreatitis. PT was INR and PTT will be obtained to assess for coagulopathy. Urinalysis will be obtained to assess for urinary tract infection and hematuria. CT scan of the abdomen and pelvis will be obtained to assess for ureteral calculus, pancreatitis, bowel obstruction, and perforation. Lab Data Attestation: I reviewed the patient's lab results. Lab results narrative: CBC was reviewed. There is a slight leukocytosis at 11.8. The remainder is within normal limits. Comprehensive metabolic profile was reviewed and was with in normal limits. Lipase was reviewed and was normal. Urinalysis was reviewed. There is no evidence of urinary tract infection or hematuria. Labs: Laboratory Results - last 24 hr 11/20/22 11/20/22 01:29 03:07 WBC 11.8 H RBC 5.14 Hgb 13.7 Hct 42.9 MCV 83.5 MCH 26.7 L MCHC 31.9 L RDW Std Deviation 41.3 RDW Coeff of Mirlande 13.7 Plt Count 385 MPV 9.6 Immature Gran % (Auto) 0.400 Neut % (Auto) 57.1 Lymph % (Auto) 34.2 Izard % (Auto) 4.7 Eos % (Auto) 3.1 Baso % (Auto) 0.5 Absolute Neuts (auto) 6.8 Absolute Lymphs (auto) 4.03 Nucleated RBC % 0 Sodium 139 Potassium 3.6 Chloride 106 Carbon Dioxide 26.0 Anion Gap 7 BUN 16 Creatinine 0.97 Estim Creat Clear Calc 89.91 Est GFR (MDRD) Af Amer 107 Est GFR (MDRD) Non-Af 89 BUN/Creatinine Ratio 16.5 Glucose 121 H Calcium 8.7 Total Bilirubin 0.20 AST 13 L ALT 29 Alkaline Phosphatase 141 H Total Protein 7.4 Albumin 3.4 Globulin 4.0 Albumin/Globulin Ratio 0.8 L Lipase 27 Urine Color Yellow Urine Clarity Clear Urine pH 6.0 Ur Specific Kent 1.020 Urine Protein 15 H Urine Glucose (UA) Normal Urine Ketones Negative Urine Occult Blood Negative Urine Nitrite Negative Urine Bilirubin Negative Urine Urobilinogen Normal Ur Leukocyte Esterase Negative Urine RBC 0 SEEN Urine WBC 0 SEEN Ur Squamous Epith Cells 0 SEEN Urine Bacteria RARE Urine Mucus RARE Radiography Diagnostic Testing: Clinical Impression(s) from Imaging Studies Abdomen/Pelvis CT 11/20/22 02:10 IMPRESSION: No specific finding to explain patient''s pain. Moderate proximal colonic stool burden. Umbilical and right inguinal fat-containing hernia without significant change from January 16, 2021 Electronically Signed: Sebastián Mendoza MD at 3:08 EDT , CT scan of the abdomen pelvis was obtained. There is no evidence of bowel obstruction or perforation. There is no free air or free fluid. There is no ureteral calculus. This was interpreted by the radiologist and was also independently reviewed by myself. Treatment and Re-Evaluation :: Patient was given IV fluids, morphine, and Phenergan. Patient was given a repeat dose of morphine. Patient still having pain on reevaluation. Patient was advised of findings. Patient was instructed to follow-up with his primary care physician for further evaluation. Patient was given a dose of Dilaudid. Patient was given a prescription for Percocet. Patient and spouse understood and were agreeable with plan. All questions were answered. Discharge Plan Triage Chief Complaint: Abd Pain ED Provider: Patrick Moreno Dx/Rx/DC Orders Clinical Impression: Right upper quadrant abdominal pain of unknown etiology, Morbid obesity with BMI of 45.0-49.9, adult Instructions: ED Abdominal Pain Unkn Cause Male... Prescriptions: New oxycodone-acetaminophen [oxycodone-acetaminophen] 5-325 mg tablet 1 tab PO Q6H PRN PRN (Reason: Pain) 3 Days Qty: 12 0RF Primary Care Provider: Opal Carias Referrals: Opal Carias, [facility] [Primary Care Provider] - 3-5 Days [facility],Leslie Chavez [Non-Staff] - Disposition Disposition: Home, Self Care
--- NOTE | 2022-11-20 02:10 | CT_ITS ---
INDICATION: Pain EXAMINATION: CT ABDOMEN AND PELVIS WITHOUT CONTRAST - CT Abdomen And Pelvis W/O Contrast Injection TECHNIQUE: Helically acquired images were obtained of the abdomen and pelvis without oral or IV contrast. A radiation dose optimization technique was used for this scan. IV Contrast dosage and agent: None. Oral contrast: None. COMPARISON: September 15, 2022., January 16, 2021 . FINDINGS: LOWER CHEST: Lung bases are clear. No cardiomegaly or pericardial effusion. LIVER: Homogeneous. No focal mass. GALLBLADDER AND BILIARY TREE: Cholecystectomy. No intra- or extrahepatic biliary ductal dilation. PANCREAS: No focal cystic or solid mass. SPLEEN: Normal size without focal cystic or solid mass. ADRENAL GLANDS: No nodules. KIDNEYS AND URETERS: Normal renal size and position. No hydronephrosis. PERITONEUM: No ascites or free air. No other fluid collection. BOWEL: No acute gastric finding. No small bowel distention or focal wall thickening. Appendix is not seen. No right lower quadrant inflammation to suggest appendicitis. Moderate proximal colonic stool burden. Rectosigmoid anastomosis without evidence of stricture or obstruction. Small diverticula noted in the remaining sigmoid colon with minimal adjacent fat stranding is unchanged from January 16, 2021. LYMPH NODES: Tiny subcentimeter lymph nodes adjacent to rectosigmoid anastomosis without significant change from January 16, 2021. No suspicious adenopathy. VESSELS: Aorta is non-dilated. URINARY BLADDER: Unremarkable. ABDOMINAL WALL: Umbilical and right inguinal fat-containing hernia with minimal stranding not significantly changed from January 16, 2021. BONES: No lytic or blastic abnormality. CT/Abdomen/Pelvis without Cont IMPRESSION: No specific finding to explain patient''s pain. Moderate proximal colonic stool burden. Umbilical and right inguinal fat-containing hernia without significant change from January 16, 2021 Electronically Signed: Sebastián Mendoza MD at 3:08 EDT ,
[2022-11-20] MEDS: Morphine 4 MG/ML Syringe IV ×2 (02:16→02:54)
[2022-11-20 02:17] LABS: Absolute Lymphocyte Count 4.03 X10^3/uL (0.83-4.51); Absolute Neutrophil Count 6.8 X10^3/uL (2.0-7.7); Basophil# 0.06 X10^3/uL; Basophil% 0.5 % (0-1); Eosinophil# 0.36 X10^3/uL; Eosinophils% 3.1 % (0-5); Hematocrit 42.9 % (40-54); Hemoglobin 13.7 g/dL (13.0-16.5); Lymphocyte # 4.03 X10^3/ul (0.83-4.51); Lymphocyte % 34.2 % (19-41); Mean Corp Hgb Conc 31.9 g/dL (32-36); Mean Corpuscular Hgb 26.7 pg (27.0-32.0); Mean Corpuscular Volume 83.5 fL (80-94); Mean Platelet Vol. 9.6 fl (6.2-12.0); Monocyte# 0.55 X10^3/uL; Monocyte% 4.7 % (0-10); NRBC Flagged by Analyzer 0 % (0-5); Neutrophil # 6.75 X10^3/uL (2.7-7.7); Neutrophil % 57.1 % (47-70); Platelet Count 385 K/mm3 (150-450); RBC Distribution Width CV 13.7 % (11.6-14.6); RBC Distribution Width SD 41.3 fl (35.1-43.9); Red Blood Count 5.14 M/mm3 (4.6-6.2); White Blood Count 11.8 K/mm3 (4.4-11.0)
[2022-11-20] MEDS: proMETHazine 25 MG/ML Syringe 6.25 MG IM (02:17)
[2022-11-20] MEDS: 0.9% Normal Saline 1,000 ML 1000 ML IV (02:19)
[2022-11-20 02:33] LABS: ALB/GLOB Ratio 0.8 RATIO (0.9-2.4); AST(SGOT) 13 U/L (15-37); Alanine Aminotransfer ALT/SGPT 29 U/L (16-61); Albumin, Serum 3.4 g/dL (3.2-5.0); Alkaline Phosphatase 141 U/L (45-117); Anion Gap 7 (5-15); BUN 16 mg/dL (7-18); BUN/Creat Ratio 16.5 RATIO (10-20); Calcium,Total 8.7 mg/dL (8.5-10.1); Chloride 106 mmol/L (98-107); Creatinine, Serum 0.97 mg/dL (0.70-1.30); EST Glomerular Filtration Rate 89 mL/min (>60); Est Glom Filt Rate - Afr Amer 107 mL/min (>60); Estimated Creatinine Clearance 89.91 ml/min; Glucose 121 mg/dL (74-106); Lipase 27 U/L (13-75); Potassium 3.6 mmol/L (3.5-5.1); Protein, Total 7.4 g/dL (6.4-8.2); Sodium Level 139 mmol/L (136-145)
[2022-11-20 03:14] LABS: Red Blood Cells-Urine 0 SEEN /hpf (0-5); Squamous Epithelial Cells - UA 0 SEEN /hpf (0-5); White Blood Cells 0 SEEN /hpf (0-5)
[2022-11-20 03:17] LABS: Color, Urine Yellow (Yellow); Glucose, Dipstick Normal (Normal); Ketone-Dipstick Negative (Negative); Leukocyte Esterase-Dipstick Negative /ul (Negative); Nitrite-Dipstick Negative (Negative); Occult Blood-Urine Negative /ul (Negative); Protein-Dipstick 15 mg/dl (Negative); Urine Bilirubin Dipstick Negative (Negative); Urine Clarity Clear (Clear); Urine Urobilinogen Normal (Normal)
[2022-11-20 03:22] LABS: Bacteria RARE /hpf (None Seen); Mucous, Urine RARE /hpf (<or=2+)
[2022-11-20] MEDS: HYDROmorphone 1 MG/ML Syringe 0.5 MG IV (03:31)
== END 2022-11-20 03:49 | disposition home or self-care (01) ==
PROVIDERS: Emergency Provider Emergency Medicine; PCP Nurse Practitioner Adult Health; Visit Provider Emergency Medicine
DX: R10.11 Right upper quadrant pain (principal); E66.01 Morbid (severe) obesity due to excess calories; Z68.42 Body mass index [BMI] 45.0-49.9, adult; R11.2 Nausea with vomiting, unspecified; I10 Essential (primary) hypertension; R09.3 Abnormal sputum
CPT/HCPCS: 74176; 80053; 81001; 83690; 85025; 96361; 96372; 96374; 96375; 96376; 99283; J7030; A4216

== ENCOUNTER → 2023-01-23 | Outpatient (CLI) | payer MEDICARE, MEDICAID, SELFPAY ==
[2023-01-23 11:36] LABS: Absolute Lymphocyte Count 2.44 X10^3/uL (0.83-4.51); Absolute Neutrophil Count 5.5 X10^3/uL (2.0-7.7); Basophil# 0.05 X10^3/uL; Basophil% 0.6 % (0-1); Eosinophil# 0.22 X10^3/uL; Eosinophils% 2.6 % (0-5); Hematocrit 41.2 % (40-54); Hemoglobin 13.8 g/dL (13.0-16.5); Lymphocyte # 2.44 X10^3/ul (0.83-4.51); Lymphocyte % 28.3 % (19-41); Mean Corp Hgb Conc 33.5 g/dL (32-36); Mean Corpuscular Hgb 27.1 pg (27.0-32.0); Mean Corpuscular Volume 80.8 fL (80-94); Mean Platelet Vol. 9.2 fl (6.2-12.0); Monocyte% 4.6 % (0-10); NRBC Flagged by Analyzer 0 % (0-5); Neutrophil # 5.48 X10^3/uL (2.7-7.7); Neutrophil % 63.6 % (47-70); Platelet Count 351 K/mm3 (150-450); RBC Distribution Width CV 13.5 % (11.6-14.6); RBC Distribution Width SD 39.1 fl (35.1-43.9); White Blood Count 8.6 K/mm3 (4.4-11.0)
[2023-01-23 12:09] LABS: ALB/GLOB Ratio 0.8 RATIO (0.9-2.4); AST(SGOT) 24 U/L (15-37); Alanine Aminotransfer ALT/SGPT 56 U/L (16-61); Albumin, Serum 3.4 g/dL (3.2-5.0); Alkaline Phosphatase 131 U/L (45-117); Anion Gap 6 (5-15); BUN 12 mg/dL (7-18); BUN/Creat Ratio 13.4 RATIO (10-20); Calcium,Total 8.5 mg/dL (8.5-10.1); Chloride 105 mmol/L (98-107); Cholesterol 146 mg/dL (200); Creatinine, Serum 0.89 mg/dL (0.70-1.30); EST Glomerular Filtration Rate 97 mL/min (>60); Est Glom Filt Rate - Afr Amer 118 mL/min (>60); Glucose 104 mg/dL (74-106); High Density Lipoprotein 32 mg/dL; Potassium 3.8 mmol/L (3.5-5.1); Protein, Total 7.4 g/dL (6.4-8.2); Sodium Level 135 mmol/L (136-145); Triglycerides 119 mg/dL; Very Low Density Lipoprotein 24 mg/dL (5-40)
[2023-01-27 11:07] LABS: Testosterone, % Free 3.42 % (1.50-4.20); Testosterone, Free 4.34 ng/dL (5.00-21.00); Testosterone, Total 127 ng/dL (264-916)
== END | disposition home or self-care (01) ==
LOC: LAB 11:10
PROVIDERS: PCP Nurse Practitioner Family; Referring Provider Nurse Practitioner Family; Visit Provider Nurse Practitioner Family
DX: N52.9 Male erectile dysfunction, unspecified (principal)
CPT/HCPCS: 36415; 80053; 80061; 84153; 84402; 84403; 84443; 85025; G0103

== ENCOUNTER → 2023-02-05 | Outpatient (CLI) | payer MEDICARE, MEDICAID, SELFPAY ==
[2023-02-05 15:41] LABS: Semen Analysis Post Vas PATH REVIEW ONLY
[2023-02-10 09:34] LABS: Pathologist Review Reviewed
== END | disposition home or self-care (01) ==
PROVIDERS: PCP Nurse Practitioner Family; Referring Provider Nurse Practitioner Family; Visit Provider Nurse Practitioner Family
DX: N52.9 Male erectile dysfunction, unspecified (principal)
CPT/HCPCS: 89321

== ENCOUNTER 2023-06-22 10:40 | Emergency (ER) | payer MEDICARE, MEDICAID, SELFPAY ==
[2023-06-22 10:41] VITALS: BP 151/69; PULSE 79; RESP 18; TEMP 36.1; O2SAT 94; BMI 47.1
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
[2023-06-22 11:48] VITALS: BP 151/69; PULSE 79; RESP 18; TEMP 36.1; O2SAT 94
== END 2023-06-22 11:48 | disposition home or self-care (01) ==
PROVIDERS: Emergency Provider Emergency Medicine; PCP Nurse Practitioner Family; Visit Provider Emergency Medicine
DX: R07.81 Pleurodynia (principal); R04.0 Epistaxis; X58.XXXA Exposure to other specified factors, initial encounter; I10 Essential (primary) hypertension; Z90.49 Acquired absence of other specified parts of digestive tract
CPT/HCPCS: 71045; 99282

== ENCOUNTER 2023-10-20 22:13 | Emergency (ER) | payer MEDICARE, MEDICAID, SELFPAY ==
[2023-10-20 22:16] VITALS: BP 132/90; PULSE 100; RESP 18; TEMP 36.6; O2SAT 97; BMI 48.3
[2023-10-20] MEDS: oxyCODONE 5 MG Tablet PO (22:48)
[2023-10-20] MEDS: Orphenadrine 60 MG/2 ML Ampul IM (22:49)
[2023-10-20] MEDS: Ketorolac 30 MG/ML Syringe IM (22:49)
--- NOTE | 2023-10-20 22:54 | ED.VIS.BACK ---
HPI History of Present Illness Chief Complaint: Back Informant: patient Narrative Narrative: 48-year-old male states he injured his back yesterday while working on his car. He states he was doing something stupid and trying to lift a transmission when he tried to keep from dropping it and twisted, having sudden onset of mid back pain radiating into the left side and down his left leg which it still is doing today. He goes down to his knee but not beyond. Denies any bowel or bladder dysfunction or weakness in the leg, just pain. States he has chronic low back pain because of juvenile rheumatoid arthritis that has affected his back chronically. Prior similar symptoms: Yes PFSH PFSH Medical History Morbid obesity Hypertension Diverticulitis large intestine Home Medications ?Medication ?Instructions ?Recorded ?Last Taken ?Type aspirin 81 mg chewable tablet 1 tab PO DAILY 10/20/23 Unknown History atorvastatin 80 mg tablet 80 mg PO DAILY 10/20/23 Unknown History clopidogrel 75 mg tablet 75 mg PO DAILY 10/20/23 Unknown History oxycodone-acetaminophen 5 mg-325 1 tab PO Q6H PRN PRN Pain 3 days 10/21/23 Unknown Rx mg tablet #8 TABLETS Allergy/AdvReac Type Severity Reaction Status Date / Time acetaminophen (From Vicodin) Allergy Rash Verified 10/20/23 22:15 codeine Allergy Anaphylaxis Verified 10/20/23 22:15 hydrocodone bitartrate (From Allergy Rash Verified 10/20/23 22:15 Vicodin) latex Allergy Swelling Verified 10/20/23 22:15 naproxen Allergy Hives Verified 10/20/23 22:15 ondansetron (From Zofran (as AdvReac Nausea Verified 10/20/23 22:15 hydrochloride)) Family History Mother Cancer Surgical History Hx of hand surgery Hx of foot surgery Hx of arthroscopy of right knee History of tonsillectomy and adenoidectomy Hx of cholecystectomy Hx of appendectomy Social History household members: spouse Smoking Status: Never smoker alcohol intake: never substance use type: does not use ROS ROS ED Constitutional Constitutional ED: Denies chills or fever(s) Gastrointestinal Gastrointestinal: Denies abdominal pain, constipation, fecal incontinence, nausea or vomiting Genitourinary Genitourinary ED: Reports other Details: no urinary retention ; Denies abdominal discomfort or urinary incontinence Musculoskeletal Musculoskeletal: Reports as per HPI, back pain and extremity pain; Denies neck pain Integumentary Denies rash or wounds Neurologic Neurologic: Denies headache(s), paresthesias or weakness EXAM Physical Exam Const Vital Signs: 10/20/23 22:16 Temperature 97.9 F Temperature Source Temporal Pulse Rate 100 Respiratory Rate 18 Blood Pressure 132/90 H Blood Pressure Mean 104 Pulse Ox 97 Oxygen Delivery Method Room Air Positive well nourished and well developed General Appearance ED: well developed and NAD HEENT Negative for trauma or tenderness Eyes PERRL and EOMs intact bilaterally Neck full ROM and supple GI normal to inspection, nondistended, normoactive bowel sounds, soft to palpation and non-tender Back/Spine normal to inspection Back/Spine Narrative: Ipsilateral left lower extremity straight leg raise elicits back pain and pain in the thigh but not below the knee. Cross straight leg raise is negative. Lumbar Spine / Lower Back: ROM limited, lumbar spinal tenderness, paraspinal muscle tenderness left and straight leg raise negative bilaterally Extremity normal to inspection, full ROM and no pedal edema Neuro oriented x3 and no sensory deficits noted Sensorium / Orientation: alert Motor Exam: strength 5/5 throughout and clonus absent Deep Tendon Reflexes: Rt Patellar (L4): 1+, Lt Patellar (L4): 1+, Rt Ankle (S1): 1+ and Lt Ankle (S1): 1+ Deep Tendon Reflexes Back: Rt Patellar (L4): 1+, Lt Patellar (L4): 1+, Rt Ankle (S1): 1+ and Lt Ankle (S1): 1+ Plantar Reflex: Downgoing: bilateral Psych mental status grossly normal and thought process normal Skin no rashes or lesions noted and no wounds MDM MDM MDM Narrative Medical decision making narrative: Three-view x-rays of the lumbar spine were obtained and are negative on my interpretation. Radiology was in agreement. Patient was treated for his pain and we will give him a short prescription I checked an [facility] report and he has not had any oxycodone since May and he has allergies to other narcotics. Patient states he does not have a PCP so he is referred to the next doctor on the unassigned list Dr. Ward. Radiography Diagnostic Testing: Clinical Impression(s) from Imaging Studies Lumbar Spine X-Ray 10/20/23 23:00 IMPRESSION: No acute findings in the lumbar spine. Electronically Signed: Topher Weaver MD at 23:33 EDT , Discharge Plan Triage Chief Complaint: Back ED Provider: Ruddy Spain Dx/Rx/DC Orders Clinical Impression: Acute lumbosacral myofascial strain Instructions: ED Back Sprain/Strain Prescriptions: New oxycodone-acetaminophen 5-325 mg tablet 1 tab PO Q6H PRN PRN (Reason: Pain) 3 Days Qty: 8 0RF No Action atorvastatin 80 mg tablet 80 mg PO DAILY clopidogrel 75 mg tablet 75 mg PO DAILY aspirin 81 mg tablet,chewable 1 tab PO DAILY Primary Care Provider: Care Physician,No Primary Referrals: Avani Rader MD [[facility]] - Print Language: Moz[place]ican Disposition Disposition: Home, Self Care
--- NOTE | 2023-10-20 23:00 | RAD_ITS ---
EXAM: XR LUMBOSACRAL SPINE, 2 OR 3 VIEWS CLINICAL INDICATION: injury w/ LLE pain radiation TECHNIQUE: Frontal and lateral views of the lumbar spine and sacrum. COMPARISON: No relevant prior studies available. FINDINGS: VERTEBRAE: There are osteophytes in the upper lumbar spine. Preserved vertebral body height. No fracture. No spondylolisthesis. Preservation of the normal lumbar lordosis. No significant facet arthropathy. DISC SPACES: No acute findings. Disc spaces are maintained. GASTROINTESTINAL TRACT: Unremarkable as visualized. Included bowel gas pattern is non-obstructive. RAD/Lumbar Spine 2 or 3 Views IMPRESSION: No acute findings in the lumbar spine. Electronically Signed: Topher Weaver MD at 23:33 EDT ,
[2023-10-21] VITALS: BP 145/90; PULSE 89; RESP 18; TEMP 36.6; O2SAT 99
== END 2023-10-21 00:06 | disposition home or self-care (01) ==
PROVIDERS: Emergency Provider Emergency Medicine; Visit Provider Emergency Medicine
DX: S39.012A Strain of muscle, fascia and tendon of lower back, initial encounter (principal); M08.00 Unspecified juvenile rheumatoid arthritis of unspecified site; M79.606 Pain in leg, unspecified; I10 Essential (primary) hypertension; Z79.82 Long term (current) use of aspirin; Z90.49 Acquired absence of other specified parts of digestive tract; X50.0XXA Overexertion from strenuous movement or load, initial encounter
CPT/HCPCS: 72100; 96372; 99282

== ENCOUNTER 2024-03-02 22:18 | Emergency (ER) | payer MEDICARE, MEDICAID, SELFPAY ==
[2024-03-02 22:19] VITALS: BP 144/79; PULSE 110; RESP 20; TEMP 36.4; O2SAT 99; BMI 49.4
--- NOTE | 2024-03-02 22:22 | RAD_ITS ---
INDICATION: PAIN EXAMINATION/TECHNIQUE: X-RAY - LEFT XR Elbow Min 3 Views COMPARISON: 10/28/2021. FINDINGS: SOFT TISSUES: No evidence of an effusion. BONES/JOINTS: No fracture or dislocation. No significant degenerative changes. No erosive changes. Stable postsurgical changes of the proximal radius. RAD/Elbow min 3 Views IMPRESSION: No fracture or dislocation. Electronically Signed: Johnathan Montano DO at 23:27 EST ,
--- NOTE | 2024-03-02 22:56 | EX.ED.UPPERE ---
HPI History of Present Illness Chief Complaint: Upper Extremity Injury Detail of Chief Complaint: Injury to left forearm Informant: patient Narrative Narrative: Patient presents with injury to his left forearm that occurred last evening. Patient states that his was laying on his arm and then he rolled and felt a pop in the forearm. He is concerned because he had to have a tendon reattached in his forearm about 3 to 4 years ago. 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 He feels like maybe there is some abnormal swelling in the proximal forearm. [facility] Medical History Morbid obesity Hypertension Diverticulitis large intestine Home Medications ?Medication ?Instructions ?Recorded ?Last Taken ?Type aspirin 81 mg chewable tablet 1 tab PO DAILY 10/20/23 Unknown History atorvastatin 80 mg tablet 80 mg PO DAILY 10/20/23 Unknown History clopidogrel 75 mg tablet 75 mg PO DAILY 10/20/23 Unknown History oxycodone-acetaminophen 5 mg-325 1 tab PO Q6H PRN PRN Pain 3 days 10/21/23 Unknown Rx mg tablet #8 TABLETS oxycodone-acetaminophen 5 mg-325 1 tab PO Q8H PRN pain 3 days #10 03/02/24 Unknown Rx mg tablet (Percocet) tabs Allergy/AdvReac Type Severity Reaction Status Date / Time acetaminophen (From Vicodin) Allergy Rash Verified 03/02/24 22:19 codeine Allergy Anaphylaxis Verified 03/02/24 22:19 hydrocodone bitartrate (From Allergy Rash Verified 03/02/24 22:19 Vicodin) latex Allergy Swelling Verified 03/02/24 22:19 naproxen Allergy Hives Verified 03/02/24 22:19 ondansetron (From Zofran (as AdvReac Nausea Verified 03/02/24 22:19 hydrochloride)) Family History Mother Cancer Surgical History Hx of hand surgery Hx of foot surgery Hx of arthroscopy of right knee History of tonsillectomy and adenoidectomy Hx of cholecystectomy Hx of appendectomy Social History household members: spouse Smoking Status: Never smoker alcohol intake: never substance use type: does not use ROS ROS ED Review of Systems ROS Unobtainable: other Constitutional Constitutional ED: Reports lethargy; Denies chills, fever(s), sweats or weight loss Eyes Eyes: Denies blurry vision, change in vision or diplopia ENT ENT ED: Denies rhinorrhea or sore throat Cardiovascular Cardiovascular: Denies chest pain, orthopnea or racing heartbeat Respiratory/Chest Respiratory/Chest: Denies cough, dyspnea, dyspnea on exertion, orthopnea or sputum Gastrointestinal Gastrointestinal: Denies abdominal pain, diarrhea, nausea or vomiting Genitourinary Genitourinary ED: Denies dysuria, hematuria or urinary frequency Musculoskeletal Musculoskeletal: Reports other Details: Pain/injury left forearm ; Denies arthralgias, back pain, myalgias or neck pain Integumentary Denies abscess, Abrasions or rash Neurologic Neurologic: Denies headache(s) or weakness Psychiatric Psychiatric: Denies anxiety, depression or suicidal thoughts Endocrine Endocrinology: Denies polydipsia, polyphagia or polyuria Hematologic/Lymphatic Hematologic/Lymphatic: Denies easy bleeding, easy bruising or lymphadenopathy Allergic/Immunologic Allergic/Immunologic ED: Denies mouth swelling, tongue swelling or urticaria EXAM Physical Exam Const Vital Signs: 03/02/24 22:19 Temperature 97.6 F L Temperature Source Temporal Pulse Rate 110 H Respiratory Rate 20 H Blood Pressure 144/79 H Blood Pressure Mean 100 Pulse Ox 99 Oxygen Delivery Method Room Air Positive well nourished and well developed General Appearance ED: well developed and NAD HEENT Reports TM's clear and moist mucous membranes normocephalic and atraumatic; Negative for trauma or tenderness Tympanic Membrane ED: Yes TM's clear Eyes PERRL and EOMs intact bilaterally General Eye ED: Negative for pale conjunctiva or scleral icterus Neck no lymphadenopathy, supple and no JVD General: Negative for tenderness Chest Wall inspection of chest normal and palpation of chest normal Chest: Negative for tenderness Resp normal respiratory effort and clear to auscultation bilaterally Effort and Inspection: Negative for respiratory distress or pain with movement Auscultation: Negative for rhonchi, wheezes or diminished lung sounds Cardio regular rate, regular rhythm, S1 normal heart sound, S2 normal heart sound and no murmurs Peripheral Pulses: pulses 2+ throughout GI normal to inspection, nondistended, normoactive bowel sounds, soft to palpation, non-tender, non-distended and no masses Back/Spine no CVA tenderness and no thoracic nor lumbar tenderness Extremity Extremity Narrative: Left forearm-patient has old scar over the radial aspect of the proximal forearm. Patient has some mild soft tissue swelling with some tenderness palpation. Neurovascular intact distally. He is able to pronate and supinate. Able to flex at the elbow without difficulty. General Extremety ED: Negative for edema General Extremity: Negative for edema Neuro oriented x3, CN's II-XII intact bilaterally, no sensory deficits noted and gait normal Sensorium / Orientation: awake, alert, oriented to person, oriented to place and oriented to time Motor Exam: strength 5/5 throughout and strength abnormal Psych mental status grossly normal Skin no rashes or lesions noted and no wounds MDM MDM MDM Narrative Medical decision making narrative: Patient with injury to left forearm. X-rays negative for fracture. Bone anchor in same location as prior x-rays. Suspect possible muscle strain. Patient will be given a sling. He will be given a prescription for pain medication and referral back to his orthopedic surgeon. Radiography Diagnostic Testing: Three-view x-rays of the left elbow obtained interpreted by myself as no evidence of fracture or dislocation. There is a bone anchor proximal portion of the radius below the radial head. This bone anchor is in the same location as prior x-rays from November 2021. Discharge Plan Triage Chief Complaint: Upper Extremity Injury ED Provider: Abran Simeon Dx/Rx/DC Orders Clinical Impression: Muscle strain of left forearm Instructions: ED Muscle Strain, Extremity Prescriptions: New oxycodone-acetaminophen [Percocet] 5-325 mg tablet 1 tab PO Q8H PRN (Reason: pain) 3 Days Qty: 10 0RF No Action atorvastatin 80 mg tablet 80 mg PO DAILY clopidogrel 75 mg tablet 75 mg PO DAILY aspirin 81 mg tablet,chewable 1 tab PO DAILY oxycodone-acetaminophen 5-325 mg tablet 1 tab PO Q6H PRN PRN (Reason: Pain) 3 Days Qty: 8 0RF Primary Care Provider: Care Physician,No Primary Referrals: Care Physician,No Primary [Primary Care Provider] - Activity Restrictions/Additional Instructions: Follow-up with your orthopedic surgeon within next 3 to 5 days. Print Language: Kenyan Disposition Disposition: Home, Self Care
[2024-03-02 23:30] VITALS: BP 140/78; PULSE 80; RESP 18; TEMP 36.7; O2SAT 96
== END 2024-03-02 23:31 | disposition home or self-care (01) ==
LOC: ED 23:07
PROVIDERS: Emergency Provider Emergency Medicine; PCP Nurse Practitioner Adult Health; Visit Provider Emergency Medicine
DX: S56.912A Strain of unspecified muscles, fascia and tendons at forearm level, left arm, initial encounter (principal); I10 Essential (primary) hypertension; Z79.82 Long term (current) use of aspirin; Z90.49 Acquired absence of other specified parts of digestive tract; X58.XXXA Exposure to other specified factors, initial encounter
CPT/HCPCS: 73080; 99283

== ENCOUNTER 2024-04-28 18:16 | Emergency (ER) | payer MEDICARE, MEDICAID, SELFPAY ==
[2024-04-28 18:17] VITALS: BP 156/90; PULSE 112; RESP 20; TEMP 36.4; O2SAT 98
[2024-04-28 18:49] VITALS: BMI 51.4
--- NOTE | 2024-04-28 19:34 | CT_ITS ---
PROCEDURE: ABDOMEN/PELVIS W IV CONT ONLY REASON FOR EXAM: Injury; hit right flank. TECHNIQUE: Abdomen and pelvis CT with intravenous contrast. COMPARISON: None. FINDINGS: Lung bases: Clear Liver: Unremarkable. Gallbladder: Absent. Spleen: Unremarkable. Pancreas: Unremarkable. Adrenals: Unremarkable. Kidneys: Unremarkable. Bladder: Unremarkable. Reproductive Organs: Unremarkable. Bowel: Unremarkable. Appendix: Normal. Lymph nodes: No suspicious lymph node enlargement. Vasculature: Major vascular structures are unremarkable. Peritoneum / Retroperitoneum: No ascites. No free air. Bones: No evidence of acute fracture. Mild degenerative changes of the spine. CT/Abdomen/Pelvis W IV Cont ONLY IMPRESSION: No acute abnormalities of the abdomen or pelvis. One or more dose reduction techniques were used (e.g., Automated exposure contr ol, adjustment of the mA and/or kV according to patient size, use of iterative reconstruction technique). Reading Location: [id number]
--- NOTE | 2024-04-28 19:35 | EDS_ITS ---
HPI History of Present Illness Chief Complaint: Flank Pain Narrative Narrative: 48-year-old male presents with his because of injury to his back that he sustained 4 days ago. He was setting up a wet deck for the polar bear plunge. As he was setting it up, piece of the decking came down and hit him in the right flank. Since then, he is complaining of pain that is increasing in the right flank and in his abdomen. Today he noticed a red tinge to his urine and states he is urinating blood. He takes a daily aspirin/baby aspirin as a blood thinner because he has had history of HI in the past. He has noticed some bruising on the right side of his flank/back. It is very tender there as well. PFSH PFSH Medical History Morbid obesity Hypertension Diverticulitis large intestine Home Medications ?Medication ?Instructions ?Recorded ?Last Taken ?Type aspirin 81 mg chewable tablet 1 tab PO DAILY 10/20/23 Unknown History atorvastatin 80 mg tablet 80 mg PO DAILY 10/20/23 Unkn own History clopidogrel 75 mg tablet 75 mg PO DAILY 10/20/23 Unkn own History oxycodone-acetaminophen 5 mg-325 1 tab PO Q6H PRN PRN Pain 3 days 10/21/23 Unknown Rx mg tablet #8 TABLETS oxycodone-acetaminophen 5 mg-325 1 tab PO Q8H PRN pain 3 days #10 03/02/24 Unknown Rx mg tablet (Percocet) tabs Allergy/AdvReac Type Severity Reaction Status Date / Time acetaminophen (From Vicodin) Allergy Rash Verified 04/28/24 18:21 codeine Allergy Anaphylaxis Verified 04/28/24 18:21 hydrocodone bitartrate (From Allergy Rash Verified 04/28/24 18:21 Vicodin) latex Allergy Swelling Verified 04/28/24 18:21 naproxen Allergy Hives Verified 04/28/24 18:21 ondansetron (From Zofran (as AdvReac Nausea Verified 04/28/24 18:21 hydrochloride)) Family History Mother Cancer Surgical History Hx of hand surgery Hx of foot surgery Hx of arthroscopy of right knee History of tonsillectomy and adenoidectomy Hx of cholecystectomy Hx of appendectomy Social History household members: spouse Smoking Status: Never smoker alcohol intake: never substance use type: does not use ROS ROS ED ROS Narrative Review of systems positive for reported hematuria. Bruising and pain to right flank and abdomen. No fevers or chills or other symptoms. Pain worse with movement and also while remaining still. EXAM Physical Exam Narrative Exam Narrative: GCS 15. ABCs intact. Nontoxic-appearing. Lying in left lateral decubitus position. Cardiovascular examination reveals a mild tachycardia. Abdomen is soft and obese. There is bruising noted on the right flank. 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 Const Vital Signs: 04/28/24 18:17 04/28/24 20:17 Temperature 97.5 F L Temperature Source Temporal Pulse Rate 112 H 96 Respiratory Rate 20 H 20 H Blood Pressure 156/90 H 143/90 H Blood Pressure Mean 112 107 Pulse Ox 98 96 Oxygen Delivery Method Room Air Room Air MDM MDM MDM Narrative Medical decision making narrative: Differential diagnosis includes but not limited to retroperitoneal hematoma versus muscular hematoma versus contusion of right flank. Patient has taken Tylenol without relief. I have low suspicion for ureterolithiasis. He was administered fentanyl for analgesia and CBC and CMP was obtained as well as UA. I will obtain CT imaging with IV contrast. I doubt any acute hemorrhage as his injury was 4 days ago. Initially he was given fentanyl given his allergy list, 50 mcg intravenously. I reviewed his laboratory work and he has normal white count of 10.3, hemoglobin normal 13.4, no significant blood loss, platelet count normal at 362. CMP is grossly unremarkable except for AST slightly elevated 45 and ALT 75 with alk phos 131 which I think is nonspecific. He has normal sodium of 139 and potassium 4.2. Urinalysis does not show any evidence of hemorrhage with 0-5 RBCs, 0 WBCs, no infection. I do not feel antibiotics are indicated. He states that the fentanyl was ineffective in treating his pain, so he was administered morphine which he states he tolerates. I reviewed the radiology report of the CT of the abdomen pelvis and there is no acute intra-abdominal process, no retroperitoneal hematoma. At this point in time I feel he can be discharged safely home with follow-up. I do not feel that he requires narcotic pain medication for home use given that his injury was 4 days ago and he has a negative workup here. Return instructions reviewed. Disposition is discharged home in stable condition. History & Record Review Discussion w/independent historian: Patient Lab Data Attestation: I reviewed the patient's lab results. Labs: Laboratory Results - last 24 hr 04/28/24 04/28/24 18:52 19:58 WBC 10.3 RBC 4.98 Hgb 13.4 Hct 41.3 MCV 82.9 MCH 26.9 L MCHC 32.4 RDW Std Deviation 42.9 RDW Coeff of Mirlande 14.2 Plt Count 362 MPV 9.3 Immature Gran % (Auto) 0.900 Neut % (Auto) 76.3 H Lymph % (Auto) 14.7 L [place] % (Auto) 4.2 Eos % (Auto) 3.3 Baso % (Auto) 0.6 Absolute Neuts (auto) 7.8 H Absolute Lymphs (auto) 1.51 Nucleated RBC % 0 Differential Comment SCANNED Platelet Estimate ADEQUATE Plt Morphology Comment CLUMPED RBC Morphology NORM C+C Sodium 139 Potassium 4.2 Chloride 106 Carbon Dioxide 26.0 Anion Gap 7 BUN 12 Creatinine 0.88 Estim Creat Clear Calc 147.26 Est GFR (MDRD) Af Amer 120 Est GFR (MDRD) Non-Af 99 BUN/Creatinine Ratio 13.7 Glucose 92 Calcium 8.9 Total Bilirubin 0.20 AST 45 H ALT 75 H Alkaline Phosphatase 131 H Total Protein 7.4 Albumin 3.4 Globulin 4.0 Albumin/Globulin Ratio 0.8 L Urine Color Yellow Urine Clarity Clear Urine pH 7.0 Ur Specific [place] 1.010 Urine Protein Negative Urine Glucose (UA) Normal Urine Ketones Negative Urine Occult Blood Negative Urine Nitrite Negative Urine Bilirubin Negative Urine Urobilinogen Normal Ur Leukocyte Esterase Negative Urine RBC 0-5 SEEN Urine WBC 0 SEEN Ur Squamous Epith Cells 0 SEEN Urine Bacteria RARE Urine Mucus 0 SEEN Radiography Diagnostic Testing: Clinical Impression(s) from Imaging Studies Abdomen/Pelvis CT 04/28/24 19:34 IMPRESSION: No acute abnormalities of the abdomen or pelvis. One or more dose reduction techniques were used (e.g., Automated exposure control, adjustment of the mA and/or kV according to patient size, use of iterative reconstruction technique). Reading Location: [facility] Discharge Plan Triage Chief Complaint: Flank Pain Other Complaint: Back ED Provider: Sidney Singh Dx/Rx/DC Orders Clinical Impression: Contusion of right flank, Abdominal pain Instructions: ED Soft Tissue Contusion, ED Back Contusion, ED Flank Pain, Uncertain Cause Prescriptions: No Action atorvastatin 80 mg tablet 80 mg PO DAILY clopidogrel 75 mg tablet 75 mg PO DAILY aspirin 81 mg tablet,chewable 1 tab PO DAILY oxycodone-acetaminophen 5-325 mg tablet 1 tab PO Q6H PRN PRN (Reason: Pain) 3 Days Qty: 8 0RF oxycodone-acetaminophen [Percocet] 5-325 mg tablet 1 tab PO Q8H PRN (Reason: pain) 3 Days Qty: 10 0RF Primary Care Provider: KATHRYN VIGIL Referrals: KATHRYN VIGIL CRNP [Primary Care Provider] - 3-5 Days if not improving Print Language: Macanese Disposition Disposition: Home, Self Care
[2024-04-28] MEDS: fentaNYL 100 MCG/2 ML Ampul 50 MCG IV (19:55)
[2024-04-28 20:12] LABS: Absolute Lymphocyte Count 1.51 X10^3/uL (0.83-4.51); Absolute Neutrophil Count 7.8 X10^3/uL (2.0-7.7); Basophil# 0.06 X10^3/uL; Basophil% 0.6 % (0-1); Eosinophil# 0.34 X10^3/uL; Eosinophils% 3.3 % (0-5); Hematocrit 41.3 % (40-54); Hemoglobin 13.4 g/dL (13.0-16.5); Lymphocyte # 1.51 X10^3/ul (0.83-4.51); Lymphocyte % 14.7 % (19-41); Mean Corp Hgb Conc 32.4 g/dL (32-36); Mean Corpuscular Hgb 26.9 pg (27.0-32.0); Mean Corpuscular Volume 82.9 fL (80-94); Mean Platelet Vol. 9.3 fl (6.2-12.0); Monocyte# 0.43 X10^3/uL; Monocyte% 4.2 % (0-10); NRBC Flagged by Analyzer 0 % (0-5); Neutrophil # 7.84 X10^3/uL (2.7-7.7); Neutrophil % 76.3 % (47-70); POSITIVE COUNT YES; Platelet Count 362 K/mm3 (150-450); RBC Distribution Width CV 14.2 % (11.6-14.6); RBC Distribution Width SD 42.9 fl (35.1-43.9); Red Blood Count 4.98 M/mm3 (4.6-6.2); White Blood Count 10.3 K/mm3 (4.4-11.0)
[2024-04-28 20:17] VITALS: BP 143/90; PULSE 96; RESP 20; O2SAT 96
[2024-04-28 20:19] LABS: Differential Indicated SCAN CRITERIA MET
[2024-04-28 20:43] LABS: Differential Comment SCANNED; Platelet Estimate ADEQUATE (ADEQ)
[2024-04-28 20:44] LABS: Platelet Morphology CLUMPED; Red Cell Morphology NORM C+C NORMAL (NORM C&C)
[2024-04-28 20:56] LABS: ALB/GLOB Ratio 0.8 RATIO (0.9-2.4); AST(SGOT) 45 U/L (15-37); Alanine Aminotransfer ALT/SGPT 75 U/L (16-61); Albumin, Serum 3.4 g/dL (3.2-5.0); Alkaline Phosphatase 131 U/L (45-117); Anion Gap 7 (5-15); BUN 12 mg/dL (7-18); BUN/Creat Ratio 13.7 RATIO (10-20); Calcium,Total 8.9 mg/dL (8.5-10.1); Chloride 106 mmol/L (98-107); Creatinine, Serum 0.88 mg/dL (0.70-1.30); EST Glomerular Filtration Rate 99 mL/min (>60); Est Glom Filt Rate - Afr Amer 120 mL/min (>60); Estimated Creatinine Clearance 147.26 ml/min; Glucose 92 mg/dL (74-106); Potassium 4.2 mmol/L (3.5-5.1); Protein, Total 7.4 g/dL (6.4-8.2); Sodium Level 139 mmol/L (136-145)
[2024-04-28] MEDS: Morphine 4 MG/ML Syringe IV (21:28)
[2024-04-28 21:35] LABS: Mucous, Urine 0 SEEN /hpf (<or=2+); Squamous Epithelial Cells - UA 0 SEEN /hpf (0-5); White Blood Cells 0 SEEN /hpf (0-5)
[2024-04-28 21:42] LABS: Color, Urine Yellow (Yellow); Glucose, Dipstick Normal (Normal); Ketone-Dipstick Negative (Negative); Leukocyte Esterase-Dipstick Negative /ul (Negative); Nitrite-Dipstick Negative (Negative); Occult Blood-Urine Negative /ul (Negative); Protein-Dipstick Negative (Negative); Urine Bilirubin Dipstick Negative (Negative); Urine Clarity Clear (Clear); Urine Urobilinogen Normal (Normal)
[2024-04-28 21:59] LABS: Bacteria RARE /hpf (None Seen); Red Blood Cells-Urine 0-5 SEEN /hpf (0-5)
[2024-04-28 22:00] VITALS: BP 136/89; PULSE 85; RESP 16; O2SAT 97
[2024-04-28 22:16] VITALS: BP 136/74; PULSE 72; RESP 16; TEMP 36.8; O2SAT 99
== END 2024-04-28 22:17 | disposition home or self-care (01) ==
PROVIDERS: Emergency Provider Emergency Medicine; PCP Nurse Practitioner Adult Health; Referring Provider Emergency Medicine; Visit Provider Emergency Medicine
DX: S30.1XXA Contusion of abdominal wall, initial encounter (principal); R31.9 Hematuria, unspecified; W20.8XXA Other cause of strike by thrown, projected or falling object, initial encounter; I10 Essential (primary) hypertension; I25.2 Old myocardial infarction; Z79.82 Long term (current) use of aspirin; Z79.02 Long term (current) use of antithrombotics/antiplatelets; Z79.899 Other long term (current) drug therapy
CPT/HCPCS: 74177; 80053; 81001; 85025; 96374; 96375; 99284; Q9967; A4216

== ENCOUNTER 2024-05-02 23:22 | Observation (INO) | payer MEDICARE, MEDICAID, SELFPAY ==
[2024-05-02 23:23] VITALS: BP 181/96; PULSE 100; RESP 22; TEMP 36.9; O2SAT 97; BMI 50.8
[2024-05-02 23:27] VITALS: BP 181/96; PULSE 104; RESP 19; TEMP 36.9; O2SAT 96
--- NOTE | 2024-05-02 23:46 | EKG12_ITS ---
Test Reason : DYSRHYTHMIA Blood Pressure : */* mmHG Vent. Rate : 97 BPM Atrial Rate : 97 BPM P-R Int : 176 ms QRS Dur : 70 ms QT Int : 356 ms P-R-T Axes : 34 22 42 degrees QTcB Int : 452 ms Normal sinus rhythm Low voltage QRS Borderline ECG Confirmed by Eddie Villa ([id number]), avid editor NANI GEORGE ([id number]) on 05/03/2024 11:12:08 AM Referred By: Confirmed By: Eddie Villa
--- NOTE | 2024-05-02 23:46 | CT_ITS ---
PROCEDURE: ABDOMEN/PELVIS W IV CONT ONLY REASON FOR EXAM: Rectal bleeding. TECHNIQUE: Axial CT images of the abdomen and pelvis performed with IV contrast enhancement. Sagittal and coronal reconstructed images were performed for better visualization of the horizontal structures. 99 cc of Isovue 370 utilized. COMPARISON: 04/28/2024, 11/20/2024, 09/15/2022. Images are unavailable. FINDINGS: Lung bases: Trace atelectasis within the left lower lobe Liver: Homogeneous enhancement. No enhancing masses are identified. No intrahepatic ductal dilatation is seen. Gallbladder: Surgically absent. Spleen: Homogeneous enhancement. No splenomegaly. No enhancing masses are identified. Pancreas: No cystic or solid masses identified. No peripancreatic inflammatory changes. Adrenals: No adrenal masses are identified bilaterally. Kidneys: Symmetric enhancement bilaterally. No enhancing or cystic masses identified. No hydronephrosis bilaterally. Bladder: Incomplete distention. Pseudobladder wall thickening measuring up to 6 mm. No surrounding inflammatory changes are seen. Bowel: No distended bowel loops are seen. [id number] amounts of fecal retention. Appendix is surgically absent. Postsurgical changes involving the mid to distal sigmoid colon. Distal colon is decompressed. No pericolonic inflammatory changes are seen. Lymph nodes: No suspicious lymph node enlargement. Vasculature: No abdominal aortic aneurysm or dissection is seen. Peritoneum / Retroperitoneum: No ascites. No free air. Fat containing umbilical hernia measures up to 6 cm. No bowel loop involvement. Right inguinal canal is fatty filled in patulous. Bones: Intact. Mild facet arthrosis involving the lower lumbar spine. CT/Abdomen/Pelvis W IV Cont ONLY IMPRESSION: 1. Incomplete distention of the urinary bladder. Pseudobladder wall thickening measuring up to 6 mm. Correlate with urinalysis to exclude cystitis. 2. No bowel obstruction. Moderate amounts of fecal retention. Postsurgical ch anges involving the mid to distal sigmoid colon. Distal colon is decompressed. 3. Fat containing umbilical hernia measuring up to 6 cm. No bowel loop involve ment. 4. Additional findings, as detailed above. One or more dose reduction techniques were used (e.g., Automated exposure contr ol, adjustment of the mA and/or kV according to patient size, use of iterative reconstruction technique). Reading Location: [id number]
[2024-05-02 23:52] VITALS: O2SAT 97
[2024-05-02] MEDS: 0.9% Normal Saline (1000mL) 1,000 ML 1000 ML IV (23:56)
[2024-05-03] VITALS (17 sets, daily range): BP systolic 108–165; BP diastolic 49–102; PULSE 69–97; RESP 14–20; TEMP 36.2–36.8; O2SAT 93–98; BMI 51.0
[2024-05-03] MEDS: Ondansetron 4 MG/2 ML Vial IV
--- NOTE | 2024-05-03 | EDS_ITS ---
HPI History of Present Illness Chief Complaint: Shortness of Breath Narrative Narrative: Chief complaint and HPI: Multiple complaints. 48-year-old male with past medical history of diverticulitis, obesity, HTN presents for evaluation of multiple complaints. Patient states that he originally was having chest pain in which he went to [place] emergency department. He states that he had a workup at that time that was unremarkable and discharged home. Patient states he was angry because he was accused of being a drug seeker. Patient states shortly after arriving home he developed a bloody nose while on the toilet. He states he then passed a bright red bloody bowel movement. He states that he had emesis prior to arrival that was blood-tinged. He is not on blood thinners. Patient states that he has mild shortness of breath associated with all the symptoms. He denies any fever, chills, URI symptoms, diarrhea, dysuria. Chest pain still present but improved from prior. Patient was seen 5 days ago for abdominal/back pain. He states that this is different. Review of systems: See HPI Medications: As listed on the chart Allergies: As listed on the chart PFSH: Per chart Vital signs: As listed on the chart. Reviewed. Physical exam: Gen: A&O x3, NAD Head: Normocephalic, atraumatic Eyes: No sclera icterus, conjunctiva clear, PERRL, EOMI ENT: Moist mucous membranes, no swelling/lacerations/blood in the mouth or the nare Neck: Trachea midline, No JVD CV: RRR, no murmurs, no peripheral edema Resp: Lungs CTA BL, no w/r/c GI: Abd soft, non-distended, patient endorses tenderness with palpation of the bilateral upper quadrant, no r/r/g Rectal: Normal external examination. Normal tone and sensation. No masses, fluctuance, or tenderness. No pain out of proportion. + Brown stool but blood- tinged on the gloved finger : No CVA tenderness Musc: Full ROM, no deformity Skin: Warm, dry Neuro: Alert, oriented, grossly intact, sensation intact Psych: Cooperative, appropriate mood and affect [facility] Medical History Morbid obesity Hypertension Diverticulitis large intestine Home Medications ?Medication ?Instructions ?Recorded ?Last Taken ?Type aspirin 81 mg chewable tablet 1 tab PO DAILY 10/20/23 Unknown History diclofenac sodium 50 mg 50 mg PO BID 05/02/24 Unknow n History tablet,delayed release ondansetron HCl 4 mg tablet mg 05/02/24 Unknown Histor y sertraline 25 mg tablet 25 mg PO DAILY 05/02/24 Unkn own History Allergy/AdvReac Type Severity Reaction Status Date / Time acetaminophen (From Vicodin) Allergy Rash Verified 05/02/24 23:28 codeine Allergy Anaphylaxis Verified 05/02/24 23:28 hydrocodone bitartrate (From Allergy Rash Verified 05/02/24 23:28 Vicodin) latex Allergy Swelling Verified 05/02/24 23:28 naproxen Allergy Hives Verified 05/02/24 23:28 ondansetron (From Zofran (as AdvReac Nausea Verified 05/02/24 23:28 hydrochloride)) Family History Mother Cancer Surgical History Hx of hand surgery Hx of foot surgery Hx of arthroscopy of right knee History of tonsillectomy and adenoidectomy Hx of cholecystectomy Hx of appendectomy Social History household members: spouse Smoking Status: Never smoker alcohol intake: never substance use type: does not use EXAM Physical Exam Const Vital Signs: 05/02/24 23:23 05/02/24 23:27 05/02/24 23:52 Temperature 98.4 F 98.4 F Temperature Source Oral Oral Pulse Rate 100 104 H Respiratory Rate 22 H 19 H Respiratory Effort Normal Non-Labored Respiratory Depth Normal Respiratory Pattern Normal Blood Pressure 181/96 H 181/96 H Blood Pressure Mean 124 124 Pulse Ox 97 96 Oxygen Delivery Method Room Air Room Air Room Air 05/03/24 00:27 05/03/24 00:53 Temperature 98.3 F 98 F Temperature Source Oral Pulse Rate 94 88 Respiratory Rate 14 18 Respiratory Effort Respiratory Depth Respiratory Pattern Blood Pressure 111/63 142/83 H Blood Pressure Mean 79 102 Pulse Ox 95 96 Oxygen Delivery Method Room Air MDM MDM MDM Narrative Medical decision making narrative: 48-year-old male with past medical history of diverticulitis, obesity, HTN presents for evaluation of multiple complaints. Complaints consist of bright red blood per rectum, epistaxis, abdominal pain, blood-streaked emesis, shortness of breath. Previous chest pain. Given that patient was just at [facility] I did call their emergency department and speak to Dr. Dahiana Mercado. She states that she just saw the patient and her emergency department. She states at that time he complained of chest pain and left arm numbness. She states that she performed a chest x-ray and laboratory/cardiac workup that was unremarkable so patient was discharged home. She states that the patient did ask for a prescription of Percocet prior to discharge which she refused. Patient did not endorse any of the other symptoms. Per her records, patient has been seen by PCP multiple times for chest pain and diagnosed with anxiety. I was able to obtain the chest x-ray from [place]. Chest x-ray was personally reviewed by me, ED physician. No pneumonia, effusion, pneumothorax. Will not repeat chest x-ray as this was just performed. Although his laboratory workup at [place] was unremarkable given change in symptoms will reorder laboratory workup including CT abdomen and pelvis. Patient confirmed understanding the plan. NS bolus, Pepcid, morphine, Zofran ordered for symptoms. Differential diagnosis includes but is not limited to diverticulitis, ischemic bowel, PUD, pancreatitis, GERD, anemia, electrolyte abnormality. CBC without leukocytosis or anemia. Coagulation panel unremarkable. CMP unremarkable. Lactic acid unremarkable. Lipase unremarkable. Stool occult positive. CT abdomen pelvis without bowel obstruction. Moderate bouts of fecal retention. Fat-containing umbilical hernia. No diverticulitis or inflammation of the bowels. Questionable UTI. Given that patient is not having any dysuria, hematuria, suprapubic abdominal pain will not treat at this time however will get culture. On reevaluation, patient is endorsing more epigastric abdominal pain. More morphine ordered. Given that CT abdomen pelvis was unremarkable with patient's epigastric pain and positive stool occult. Concern is for PUD/upper GI bleed. Protonix ordered. Although vitals are stable with patient's and that abdominal pain and worsening symptoms after being seen at previous emergency department I do think patient would benefit from being admitted for observation in our emergency department with possible endoscopy tomorrow as no GI is on-call this evening. I spoke with Dr. Salmeron the hospitalist service who accepted admission. Patient permed understand the plan. EKG: Interpreted by me/EM physician: EKG shows normal sinus rhythm without acute ischemic changes. Heart rate 97. Impression: 1. GI bleed 2. Intractable abdominal pain Lab Data Labs: Laboratory Results - last 24 hr 05/02/24 05/02/24 05/03/24 23:32 23:57 00:32 WBC 7.4 RBC 5.21 Hgb 13.9 Hct 42.5 MCV 81.6 MCH 26.7 L MCHC 32.7 RDW Std Deviation 41.3 RDW Coeff of Mirlande 14.0 Plt Count 350 MPV 9.1 Immature Gran % (Auto) 0.400 Neut % (Auto) 52.8 Lymph % (Auto) 35.7 [place] % (Auto) 6.5 Eos % (Auto) 4.1 Baso % (Auto) 0.5 Absolute Neuts (auto) 3.9 Absolute Lymphs (auto) 2.63 Nucleated RBC % 0 PT 12.6 INR 0.9 APTT 27.0 Sodium 138 Potassium 3.7 Chloride 104 Carbon Dioxide 24.0 Anion Gap 10 BUN 18 Creatinine 1.00 Estim Creat Clear Calc 128.65 Est GFR (MDRD) Af Amer 104 Est GFR (MDRD) Non-Af 86 BUN/Creatinine Ratio 18.1 Glucose 105 Lactic Acid 1.0 Calcium 8.7 Total Bilirubin 0.30 AST 22 ALT 44 Alkaline Phosphatase 112 Troponin I High Sens 3 Total Protein 7.8 Albumin 3.4 Globulin 4.4 H Albumin/Globulin Ratio 0.8 L Lipase 30 L Urine Color Yellow Urine Clarity Clear Urine pH 5.0 Ur Specific [place] 1.020 Urine Protein 30 H Urine Glucose (UA) Normal Urine Ketones 5 H Urine Occult Blood 10 H Urine Nitrite Negative Urine Bilirubin 1 H Urine Urobilinogen 1 H Ur Leukocyte Esterase 25 H Urine RBC 0 SEEN Urine WBC 10-25 SEEN Ur Squamous Epith Cells 0-5 SEEN Urine Bacteria 1+ Urine Mucus 2+ Radiography Diagnostic Testing: Clinical Impression(s) from Imaging Studies Abdomen/Pelvis CT 05/02/24 23:46 IMPRESSION: 1. Incomplete distention of the urinary bladder. Pseudobladder wall thickening measuring up to 6 mm. Correlate with urinalysis to exclude cystitis. 2. No bowel obstruction. Moderate amounts of fecal retention. Postsurgical changes involving the mid to distal sigmoid colon. Distal colon is decompressed. 3. Fat containing umbilical hernia measuring up to 6 cm. No bowel loop involvement. 4. Additional findings, as detailed above. One or more dose reduction techniques were used (e.g., Automated exposure control, adjustment of the mA and/or kV according to patient size, use of iterative reconstruction technique). Reading Location: [facility] Discharge Plan Triage Chief Complaint: Shortness of Breath ED Provider: Sebastian Puri Dx/Rx/DC Orders Prescriptions: No Action aspirin 81 mg tablet,chewable 1 tab PO DAILY ondansetron HCl 4 mg tablet Patient Comments: [NO ORIGINAL SIG] sertraline 25 mg tablet 25 mg PO DAILY diclofenac sodium 50 mg tablet,delayed release (DR/EC) 50 mg PO BID Primary Care Provider: KATHRYN VIGIL Referrals: KATHRYN VIGIL CRNP [Primary Care Provider] - Print Language: Tunisian
[2024-05-03 00:14] LABS: Absolute Lymphocyte Count 2.63 X10^3/uL (0.83-4.51); Absolute Neutrophil Count 3.9 X10^3/uL (2.0-7.7); Basophil# 0.04 X10^3/uL; Basophil% 0.5 % (0-1); Eosinophils% 4.1 % (0-5); Hematocrit 42.5 % (40-54); Hemoglobin 13.9 g/dL (13.0-16.5); Lymphocyte # 2.63 X10^3/ul (0.83-4.51); Lymphocyte % 35.7 % (19-41); Mean Corp Hgb Conc 32.7 g/dL (32-36); Mean Corpuscular Hgb 26.7 pg (27.0-32.0); Mean Corpuscular Volume 81.6 fL (80-94); Mean Platelet Vol. 9.1 fl (6.2-12.0); Monocyte# 0.48 X10^3/uL; Monocyte% 6.5 % (0-10); NRBC Flagged by Analyzer 0 % (0-5); Neutrophil # 3.88 X10^3/uL (2.7-7.7); Neutrophil % 52.8 % (47-70); Platelet Count 350 K/mm3 (150-450); RBC Distribution Width SD 41.3 fl (35.1-43.9); Red Blood Count 5.21 M/mm3 (4.6-6.2); White Blood Count 7.4 K/mm3 (4.4-11.0)
[2024-05-03 00:21] LABS: ALB/GLOB Ratio 0.8 RATIO (0.9-2.4); AST(SGOT) 22 U/L (15-37); Alanine Aminotransfer ALT/SGPT 44 U/L (16-61); Albumin, Serum 3.4 g/dL (3.2-5.0); Alkaline Phosphatase 112 U/L (45-117); Anion Gap 10 (5-15); BUN 18 mg/dL (7-18); BUN/Creat Ratio 18.1 RATIO (10-20); Calcium,Total 8.7 mg/dL (8.5-10.1); Chloride 104 mmol/L (98-107); EST Glomerular Filtration Rate 86 mL/min (>60); Est Glom Filt Rate - Afr Amer 104 mL/min (>60); Estimated Creatinine Clearance 128.65 ml/min; Globulin 4.4 g/dL (2.2-4.2); Glucose 105 mg/dL (74-106); Lipase 30 U/L (73-393); Potassium 3.7 mmol/L (3.5-5.1); Protein, Total 7.8 g/dL (6.4-8.2); Sodium Level 138 mmol/L (136-145); Troponin-I HS 3 pg/mL (3.0-78.0)
[2024-05-03 00:22] LABS: International Normalized Ratio 0.9; Prothrombin Time (Protime)PT. 12.6 SECONDS (11.7-14.9)
[2024-05-03] MEDS: Famotidine 200 MG/20 ML MDV 20 MG in 0.9% Normal Saline (Pres. free 8 ML 300 MG IV (00:22)
[2024-05-03 00:38] LABS: Color, Urine Yellow (Yellow); Glucose, Dipstick Normal (Normal); Ketone-Dipstick 5 mg/dl (Negative); Leukocyte Esterase-Dipstick 25 /ul (Negative); Nitrite-Dipstick Negative (Negative); Occult Blood-Urine 10 /ul (Negative); Protein-Dipstick 30 mg/dl (Negative); Urine Clarity Clear (Clear); Urine Urobilinogen 1 mg/dl (Normal)
[2024-05-03 00:46] LABS: Bacteria 1+ /hpf (None Seen); Mucous, Urine 2+ /hpf (<or=2+); Red Blood Cells-Urine 0 SEEN /hpf (0-5); Squamous Epithelial Cells - UA 0-5 SEEN /hpf (0-5); Urine Bilirubin Dipstick 1 mg/dL (Negative); White Blood Cells 10-25 SEEN /hpf (0-5)
--- NOTE | 2024-05-03 00:59 | PCM.HP.STD ---
HPI - General General Date of Admission: 05/03/24 Date of Service: 05/03/24 Chief Complaint: Epigastric pain. HPI Narrative The patient is a 48 y/o M w/ PMHx: Patient reported history of VA/CAD without PCI, Patient reported history of Stroke without overt deficits, Morbid obesity, HTN, Hx Diverticulitis, Anxiety and Depression who presents to the [facility] ED on 05/03/24 with history of epigastric discomfort with workup earlier in the evening at outside facility specifically [facility] with unremarkable findings discharged to home and upon arriving home reports having bright red blood per rectum with his bowel movement as well as an emesis just prior to arrival in the ED again that was blood-tinged reporting that is not on any blood thinners however aspirin 81 mg is listed on his home medications thus clarifying further with mild dyspnea prompting [facility] ED evaluation. From review of records patient was seen on 04/28/2024 with complaints of injury to his back sustained 4 days previous to that secondary to a piece of the deck falling onto his right flank and since then right flank and abdominal discomfort with mild red-tinged urine. At that visit he did report being on a baby aspirin. He also reports potentially the day previous an episode of syncope with lightheadedness and dizziness preceding this when he was at the [employer] with his brothers. He also reports a recent history of epistaxis which eventually abated. The pain that patient reports to his chest in his epigastric region is reproducible on palpation and he does have a very focal region of discomfort in the left upper quadrant that is very superficial as well. In the ED he rates his epigastric discomfort 10 out of 10 in severity. Workup in the ED was unremarkable including CT abdomen and pelvis therefore patient was discharged to home. Workup in the ED included T98.4, heart rate 100, BP 181/96, respiratory rate 22, 97% on room air with most recent repeat vitals T98.3, heart rate 94, BP 111/63, respiratory rate 14, 95% room air, CBC with WBC 7.4 hemoglobin 13.9 with most recent previous to this 04/28/2019 413.4 and this is stable baseline, MCV 81.6, platelet 350 without marked shift, unremarkable coags, unremarkable CMP, lactic acid 1.0, troponin 3, lipase 30, urinalysis with specific gravity 1.020, ketone 5, occult blood 10, negative nitrite, leukocyte esterase 25 with urine WBCs 10-25 with 1+ urine bacteria, CT abdomen and pelvis with incomplete distention of the urinary bladder with serial bladder wall thickening measuring up to 6 mm, no bowel obstruction, moderate amount of fecal retention, postsurgical changes involving the mid to distal sigmoid colon with the distal colon decompressed, fat-containing bilateral hernia with no bowel loop involvement, urine culture pending per ED. In ED patient ministered 1 L normal saline, Zofran 4 mg IV x 1, morphine 4 mg IV x 1, famotidine 20 mg IV x 1. In the ED patient with melanotic stools, guiac positive. [facility] Medical History (Updated 05/03/24 @ 01:[address] Yana Salmeron MD) History of stroke History of VA (myocardial infarction) Anxiety and depression Morbid obesity Hypertension Diverticulitis large intestine Home Medications ?Medication ?Instructions ?Recorded ?Last Taken ?Type aspirin 81 mg chewable tablet 1 tab PO DAILY 10/20/23 Unknown History diclofenac sodium 50 mg 50 mg PO BID 05/02/24 Unknown History tablet,delayed release ondansetron HCl 4 mg tablet mg 05/02/24 Unknown History sertraline 25 mg tablet 25 mg PO DAILY 05/02/24 Unknown History Allergy/AdvReac Type Severity Reaction Status Date / Time acetaminophen (From Vicodin) Allergy Rash Verified 05/02/24 23:28 codeine Allergy Anaphylaxis Verified 05/02/24 23:28 hydrocodone bitartrate (From Allergy Rash Verified 05/02/24 23:28 Vicodin) latex Allergy Swelling Verified 05/02/24 23:28 naproxen Allergy Hives Verified 05/02/24 23:28 ondansetron (From Zofran (as AdvReac Nausea Verified 05/02/24 23:28 hydrochloride)) Family History (Updated 05/03/24 @ 01:[address] Yana Salmeron MD) Mother Cancer Father Brain aneurysm Surgical History Hx of hand surgery Hx of foot surgery Hx of arthroscopy of right knee History of tonsillectomy and adenoidectomy Hx of cholecystectomy Hx of appendectomy Social History household members: spouse Smoking Status: Never smoker alcohol intake: never substance use type: does not use ROS ROS Narrative Admission Review of Systems: CONSTITUTIONAL: No weight loss, fever, chills, + weakness or fatigue. HEENT: + Episode of epistaxis, syncopal event with lightheadedness/dizziness preceding it. Eyes: No visual loss, blurred vision, double vision or yellow sclerae. Ears, Nose, Throat: No hearing loss, sneezing, congestion, runny nose or sore throat. SKIN: No rash or itching, lesions, wounds. CARDIOVASCULAR: + Atypical chest discomfort that is reproducible, syncopal event with lightheadedness/dizziness preceding it. No palpitations, edema, orthopnea. RESPIRATORY: + Dyspnea. No cough or sputum, wheezing, hemoptysis. GASTROINTESTINAL: + Nausea with bout of emesis noted to be blood-tinged, patient reported history of bright red blood per rectum, episode of abdominal cramping. No anorexia. GENITOURINARY: No dysuria, frequency, urgency or retention. NEUROLOGICAL: + Syncopal event with lightheadedness/dizziness preceding. No headache, paralysis, ataxia, numbness or tingling in the extremities, focal weakness, change in bowel or bladder control, seizure. MUSCULOSKELETAL: + muscle, back pain, joint pain or stiffness. HEMATOLOGIC: No anemia. + Reports currently epistaxis event as well as bright red blood per rectum. LYMPHATICS: No enlarged nodes. No history of splenectomy. PSYCHIATRIC: + History of anxiety and depression. ENDOCRINOLOGIC: No reports of sweating, cold or heat intolerance. No polyuria or polydipsia. ALLERGIES: + History of hives and anaphylaxis. Vital Signs Vital Signs Vital Signs: 05/02/24 23:23 05/02/24 23:27 05/02/24 23:52 Temperature 98.4 F 98.4 F Temperature Source Oral Oral Pulse Rate 100 104 H Respiratory Rate 22 H 19 H Respiratory Effort Normal Non-Labored Respiratory Depth Normal Respiratory Pattern Normal Blood Pressure 181/96 H 181/96 H Blood Pressure Mean 124 124 Pulse Ox 97 96 Oxygen Delivery Method Room Air Room Air Room Air 05/03/24 00:27 05/03/24 00:53 Temperature 98.3 F 98 F Temperature Source Oral Pulse Rate 94 88 Respiratory Rate 14 18 Respiratory Effort Respiratory Depth Respiratory Pattern Blood Pressure 111/63 142/83 H Blood Pressure Mean 79 102 Pulse Ox 95 96 Oxygen Delivery Method Room Air Weight Weight: 324 lb 8.327 oz Body Mass Index (BMI) 50.8 Physical Exam Narrative Physical Examination: General: Awake, alert, oriented x 3 and cooperative, seated upright in the ED bed, does not appear in severe distress but reporting his epigastric discomfort 10 out of 10. Skin: Normal color, normal turgor, no icterus, no cyanosis. HEENT: AT/NC, EOMI, PERRLA, mildly dry MM, no carotid bruits, difficult to discern JVD given thickened neck. Lungs: Mildly diminished, greater bases, occasional end expiratory wheeze, no evidence of any distress, no rales or rhonchi. Heart: Mildly tachycardic with rhythm; no gallop, rub audible, reproducible discomfort with palpation of the anterior chest. Abdomen: Soft, morbidly obese, very focal specific tenderness to the epigastric region with no rebound or guarding however he does have a very focal region that is literally severely tender just with shallow palpation with the finger lateral to the epigastric region to the left and reproducible, distant BS, difficult to discern distention HSM given habitus. Extremities: No cyanosis, clubbing, or edema. Neurological: Patient awake, alert, oriented as noted, cognitive function intact; pupils equally reactive to light and accommodation, cranial nerves grossly normal, moving all 4 extremities, no focal deficits apparent, strength moderately globally decreased. Psychiatric: Affect appears fatigued, no acute evidence of depressive or anxiety feelings but does have underlying history. Results Lab / Micro Data 05/02/24 23:32 05/02/24 23:32 Labs: Laboratory Results - last 24 hr 05/02/24 23:32: WBC 7.4, RBC 5.21, Hgb 13.9, Hct 42.5, MCV 81.6, MCH 26.7 L, MCHC 32.7, RDW Std Deviation 41.3, RDW Coeff of Mirlande 14.0, Plt Count 350, MPV 9.1, Immature Gran % (Auto) 0.400, Neut % (Auto) 52.8, Lymph % (Auto) 35.7, [place] % (Auto) 6.5, Eos % (Auto) 4.1, Baso % (Auto) 0.5, Absolute Neuts (auto) 3.9, Absolute Lymphs (auto) 2.63, Nucleated RBC % 0, PT 12.6, INR 0.9, APTT 27.0, Sodium 138, Potassium 3.7, Chloride 104, Carbon Dioxide 24.0, Anion Gap 10, BUN 18, Creatinine 1.00, Estim Creat Clear Calc 128.65, Est GFR (MDRD) Af Amer 104, Est GFR (MDRD) Non-Af 86, BUN/Creatinine Ratio 18.1, Glucose 105, Calcium 8.7, Total Bilirubin 0.30, AST 22, ALT 44, Alkaline Phosphatase 112, Troponin I High Sens 3, Total Protein 7.8, Albumin 3.4, Globulin 4.4 H, Albumin/Globulin Ratio 0.8 L, Lipase 30 L 05/02/24 23:57: Lactic Acid 1.0 05/03/24 00:32: Urine Color Yellow, Urine Clarity Clear, Urine pH 5.0, Ur Specific [place] 1.020, Urine Protein 30 H, Urine Glucose (UA) Normal, Urine Ketones 5 H, Urine Occult Blood 10 H, Urine Nitrite Negative, Urine Bilirubin 1 H, Urine Urobilinogen 1 H, Ur Leukocyte Esterase 25 H, Urine RBC 0 SEEN, Urine WBC 10-25 SEEN, Ur Squamous Epith Cells 0-5 SEEN, Urine Bacteria 1+, Urine Mucus 2+ Micro: Microbiology 05/02/24 23:57 Stool Stool Occult Blood (VIOLETTE) - Final Occult Blood Positive Imaging Radiology Impression Abdomen/Pelvis CT 05/02/24 23:46 IMPRESSION: 1. Incomplete distention of the urinary bladder. Pseudobladder wall thickening measuring up to 6 mm. Correlate with urinalysis to exclude cystitis. 2. No bowel obstruction. Moderate amounts of fecal retention. Postsurgical changes involving the mid to distal sigmoid colon. Distal colon is decompressed. 3. Fat containing umbilical hernia measuring up to 6 cm. No bowel loop involvement. 4. Additional findings, as detailed above. One or more dose reduction techniques were used (e.g., Automated exposure control, adjustment of the mA and/or kV according to patient size, use of iterative reconstruction technique). Reading [facility] Assessment & Plan Assessment/Plan (1) Abdominal pain: PLAN: Plan The patient is a 48 y/o M w/ PMHx: Patient reported history of VA/CAD without PCI, Patient reported history of Stroke without overt deficits, Morbid obesity, HTN, Hx Diverticulitis, Anxiety and Depression who presents to the [facility] ED on 05/03/24 with history of epigastric discomfort with workup earlier in the evening at outside facility specifically [facility] with unremarkable findings discharged to home and upon arriving home reports having bright red blood per rectum with his bowel movement as well as an emesis just prior to arrival in the ED again that was blood-tinged reporting that is not on any blood thinners however aspirin 81 mg is listed on his home medications thus clarifying further with mild dyspnea prompting [facility] ED evaluation. #1. Syncopal Event with reproducible chest discomfort: EKG in ED w/ sinus rhythm without evidence of acute ischemia, initial trop normal, will obtain chest x-ray. Will admit to PCU, place on a monitored bed to assure no acute myocardial infarction with serial cardiac enzymes and EKGs. Will maintain on fall precautions, obtain admission orthostatic maintain on IVFs. Will obtain ECHO. Continue evaluation and treatment of #2 as noted. #2. Possible upper GI bleed: Will maintain on IV fluids, maintain n.p.o. status, will obtain repeat CBC in a.m., maintain on Protonix, will have antiemetics as needed, pain regimen as needed, will consult GI for evaluation, will hold aspirin and also discontinue diclofenac 50 mg p.o. twice daily home regimen.. #3. Patient reported history previous VA, CAD: Patient notes a history of several heart attacks but no PCI interventions and states his last stress test was maybe 1 to 2 years previous and normal, suspect this may not be the exact history but are uncertain, holding aspirin given #2, as noted not on any hypertensive regimen but does have history, currently in pain thus will hold off on immediate regimen as BP is normalizing without intervention, as needed IV hydralazine in the interim. FLP in AM. #4. Patient reported history of previous strokes without overt deficits: Patient notes history of several strokes but no overt deficits, again suspect this may not be the exact history but uncertain, holding aspirin given #2, not on any hypertensive regimen but does have history however currently in pain but BP is improving without any intervention, will maintain on as needed hydralazine in the interim, no diabetic history and blood sugars currently normal. #5. Hypertension: Noted history, per current list not on regimen, BP above goal however patient has been in pain since presentation, will continue to monitor and add oral regimen if appropriate, as needed IV hydralazine in interim. #4. Anxiety and depression: We will continue patient on sertraline regimen. #5. Morbid Obesity: Weight loss and lifestyle changes encouraged. #6. DVT prophylaxis: SCDs. Charges/Coding Visit Charges Inpatient E&M: 60633 Init Hosp L3
[2024-05-03] MEDS: Morphine 4 MG/ML Syringe IV ×2 (01:12)
[2024-05-03] MEDS: Pantoprazole Sodium 40 MG in 0.9% Normal Saline (100mL MB+) 100 ML 330 MG IV ×2 (01:14→08:23)
[2024-05-03 01:31] LABS: Magnesium 2.2 mg/dL (1.6-2.6)
--- NOTE | 2024-05-03 01:44 | ECHOCS_ITS ---
Reason For Study: Syncope Procedure This was a 2D Doppler, Color Flow transthoracic echocardiogram. The study was technically difficult. Contrast injection was performed. Patient could not tolerate any probe pressure. Exam performed portable in patient room. Left Ventricle Normal LV size. The estimated ejection fraction is 65 %. No evidence for diastolic dysfunction. No regional wall motion abnormalities noted. Right Ventricle Normal RV size. Normal systolic function. Atria The left and right atria are normal. No doppler evidence for ASD. Mitral Valve There is no mitral valve stenosis. No mitral valve insufficiency. Tricuspid Valve There is no tricuspid stenosis. Unable to estimate RV systolic pressure due to inadequate jet, pulmonary artery pressure probably normal. Aortic Valve Trisinus/trileaflet aortic valve. There is no aortic stenosis. No aortic valve insufficiency. Pulmonic Valve There is no pulmonic valvular stenosis. No pulmonic valve insufficiency. Great Vessels Normal aortic root. Pericardium/Pleural No pericardial effusion. Medication Diluted definity 4ml given slow IV push to enhance endocardial definition. MMode/2D Measurements & Calculations LVIDd: 5.2 cm IVSd: 1.0 cm Ao root diam: 3.2 cm LVIDs: 3.2 cm LVPWd: 0.88 cm LA dimension: 4.3 cm RVDd: 3.6 cm FS: 37.7 % _ LAV(MOD-bp): 49.6 ml LA A4 area: 18.7 cm2 RA A4 area: 18.6 cm2 LAV(MOD-bp) Indexed: 20.0 ml/m2 LAV(MOD-sp2): 47.5 ml LAV(MOD-sp4): 42.3 ml Time Measurements MV dec time: 0.23 sec Doppler Measurements & Calculations MV E max demetrius: 75.2 cm/sec Lat Peak E' Demetrius: 13.9 cm/sec Med Peak E' Demetrius: 15.1 cm/sec MV A max demetrius: 57.3 cm/sec E/E' lat: 5.4 E/E' med: 5.0 MV E/A: 1.3 _ MV V2 max: 105.8 cm/sec MV P1/2t max demetrius: 107.7 cm/sec Ao V2 max: 135.3 cm/sec MV max P.5 mmHg MV P1/2t: 82.8 msec Ao max P.4 mmHg MV V2 mean: 53.1 cm/sec MV dec slope: 380.9 cm/sec2 Ao V2 mean: 99.2 cm/sec MV mean P.4 mmHg Ao mean P.4 mmHg MV V2 VTI: 27.6 cm MVA(P1/2t): 2.7 cm2 Ao V2 VTI: 30.3 cm AV (velocity ratio): 0.87 _ LV V1 max: 126.8 cm/sec PA V2 max: 108.7 cm/sec LV V1 max P.4 mmHg LV V1 mean P.1 mmHg LV V1 mean: 81.7 cm/sec LV V1 VTI: 26.5 cm ECHO/Echo Complete W/ Contrast Interpretation Summary The estimated ejection fraction is 65 %. No evidence for diastolic dysfunction. Ordering Physician: Yana Salmeron Performed By: Sebastian Harry RCS
[2024-05-03 02:59] LABS: Troponin-I HS 4 pg/mL (3.0-78.0)
[2024-05-03] MEDS: Acetaminophen 325 MG Tablet 650 MG PO (03:13)
[2024-05-03] MEDS: 0.9% Normal Saline (1000mL) 1,000 ML 100 ML IV (03:13)
[2024-05-03] MEDS: oxyCODONE 5 MG Tablet PO (03:13)
[2024-05-03 05:48] LABS: Absolute Lymphocyte Count 2.81 X10^3/uL (0.83-4.51); Absolute Neutrophil Count 2.3 X10^3/uL (2.0-7.7); Basophil# 0.03 X10^3/uL; Basophil% 0.5 % (0-1); Eosinophil# 0.35 X10^3/uL; Hematocrit 38.7 % (40-54); Hemoglobin 12.4 g/dL (13.0-16.5); Lymphocyte # 2.81 X10^3/ul (0.83-4.51); Mean Corpuscular Hgb 26.3 pg (27.0-32.0); Mean Corpuscular Volume 82.2 fL (80-94); Mean Platelet Vol. 8.9 fl (6.2-12.0); Monocyte# 0.39 X10^3/uL; Monocyte% 6.7 % (0-10); NRBC Flagged by Analyzer 0 % (0-5); Neutrophil # 2.25 X10^3/uL (2.7-7.7); Neutrophil % 38.5 % (47-70); Platelet Count 293 K/mm3 (150-450); Red Blood Count 4.71 M/mm3 (4.6-6.2); White Blood Count 5.9 K/mm3 (4.4-11.0)
[2024-05-03 06:19] LABS: ALB/GLOB Ratio 0.9 RATIO (0.9-2.4); AST(SGOT) 15 U/L (15-37); Alanine Aminotransfer ALT/SGPT 37 U/L (16-61); Albumin, Serum 3.1 g/dL (3.2-5.0); Alkaline Phosphatase 98 U/L (45-117); Anion Gap 8 (5-15); BUN 21 mg/dL (7-18); BUN/Creat Ratio 25.4 RATIO (10-20); Calcium,Total 7.9 mg/dL (8.5-10.1); Chloride 107 mmol/L (98-107); Creatinine, Serum 0.83 mg/dL (0.70-1.30); EST Glomerular Filtration Rate 106 mL/min (>60); Est Glom Filt Rate - Afr Amer 128 mL/min (>60); Estimated Creatinine Clearance 155.38 ml/min; Globulin 3.6 g/dL (2.2-4.2); Glucose 103 mg/dL (74-106); Potassium 3.9 mmol/L (3.5-5.1); Protein, Total 6.7 g/dL (6.4-8.2); Sodium Level 137 mmol/L (136-145)
[2024-05-03 06:23] LABS: Troponin-I HS < 3 pg/mL (3.0-78.0)
[2024-05-03] MEDS: Morphine 2 MG/ML Syringe IV ×2 (08:09→14:26)
[2024-05-03 14:07] LABS: Hematocrit 42.8 % (40-54); Hemoglobin 13.6 g/dL (13.0-16.5)
[2024-05-03] MEDS: 0.9% Saline Lock 10 ML Syringe IV (14:26)
--- NOTE | 2024-05-03 17:00 | EGD_PTH ---
PATIENT: BARRETT LOPEZ LOC: [facility] U#:[id number] AGE/SX: 48/M ROOM: [facility] RE05/03/[address]: Dr. Luis James MD : 1975 BED: 1 DIS: 05/03/2024 SPEC #: [id number] RECD: 05/03/24 17:59 STATUS: MARIO ALBERTO ODOM #: [id number] CHUY: 05/03/24 17:[address]: Luis James DEPT: SURGICAL PATHOLOGY RECD BY: Cesilia Ponce ENTERED: 05/04/24 07:41 SP TYPE: EGD BIOPSY OTHR DR: MD KATHRYN Alexander CRNP Tissues: Gastric mucous membrane Procedures: Surgery Specimen Level IV HEADER OPERATION: EGD PRE-OP DIAGNOSIS: Abdominal pain TISSUE SUBMITTED: Gastric ulcer biopsy MICROSCOPIC DIAGNOSIS Gastric ulcer, biopsy: Fragments of gastric mucosa with focal ulceration, fibrinous exudation, acute and chronic inflammation. See comment. 05/05/2024 COMMENT The results of immunohistochemistry for Helicobacter pylori will be reported separately ([id number]). MICROSCOPIC DESCRIPTION Slides are reviewed. GROSS DESCRIPTION Received in fixative is one container labeled with the patient's name and designated Gastric ulcer biopsy. The specimen consists of multiple irregular fragments of light bronson soft tissue that in aggregate measure 1.8 x 0.3 x 0.2 cm. The specimen is totally submitted in one cassette. 05/04/2024 TC:2 CPT:46567
--- NOTE | 2024-05-03 17:00 | IMM_PTH ---
PATIENT: BARRETT LOPEZ LOC: [facility] U#:[id number] AGE/SX: 48/M ROOM: [facility] RE05/03/[address]: Dr. Luis James MD : 1975 BED: 1 DIS: 05/03/2024 SPEC #: [id number] RECD: 05/04/24 08:26 STATUS: MARIO ALBERTO REJanett #: [id number] CHUY: 05/03/24 17:[address]: Logan White DEPT: IMMUNOHISTOCHEMISTRY RECD BY: Sonu Carrington ENTERED: 05/04/24 08:26 SP TYPE: IMMUNO OTHR DR: MD Dr. Luis Alexander MD KRISTA MAST, CRNP Tissues: Gastric mucous membrane Procedures: H Pylori (initial) PHYSICIAN & INSTITUTION [place] [id number] SPECIMEN INFORMATION: Tissue Source: Gastric ulcer biopsy Clinical Info: Abdominal pain Specimen Number: [id number] CPT code: 12299 METHODOLOGY: Deparaffinized sections of prefer/formalin-fixed tissue or PAP/DQ stained slides are incubated with monoclonal/polyclonal antibodies/oligonucleotide probes. Localization is made via biotin free immunoperoxidase method. Appropriate controls are performed and reacted as expected. Results on target cell population are indicated in the following table: RESULTS: ANTIBODY / CLONE RESULT H Pylori (polyclonal) negative These tests were developed and their performance characteristics determined by [facility]. They may not have been cleared or approved by the U.S. Food and Drug Administration. The FDA has determined that such clearance or approval is not necessary. The above immunohistochemical/dualISH markers are ordered and reviewed by the Pathologist. INTERPRETATION: Gastric ulcer, biopsy: Negative for Helicobacter pylori organisms. 05/06/2024
--- NOTE | 2024-05-03 17:03 | EX.PCM.CON.G ---
HPI Consult Data Date of Consult: 05/03/24 HPI Narrative Reason for Consultation: Coffee-ground emesis HPI Narrative: BARRETT LOPEZ, is a 48-year-old male with past medical history of diverticulitis, obesity, HTN presents for evaluation of multiple complaints. Patient states that he originally was having chest pain in which he went to [place] emergency department. He states that he had a workup at that time that was unremarkable and discharged home. Patient states he was angry because he was accused of being a drug seeker. Patient states shortly after arriving home he developed a bloody nose while on the toilet. He states he then passed a bright red bloody bowel movement. He states that he had emesis prior to arrival that was blood-tinged. He is not on blood thinners. Patient states that he has mild shortness of breath associated with all the symptoms. He denies any fever, chills, URI symptoms, diarrhea, dysuria. Chest pain still present but improved from prior. Patient was seen 5 days ago for abdominal/back pain. I was asked to evaluate him for hematemesis. [facility] Medical History History of stroke History of MD (myocardial infarction) Anxiety and depression Morbid obesity Hypertension Diverticulitis large intestine Home Medications ?Medication ?Instructions ?Recorded ?Last Taken ?Type aspirin 81 mg chewable tablet 1 tab PO DAILY 10/20/23 05/02/24 History diclofenac sodium 50 mg 50 mg PO BID 05/02/24 05/02/24 History tablet,delayed release ondansetron HCl 4 mg tablet mg 05/02/24 Unknown History sertraline 25 mg tablet 25 mg PO DAILY 05/02/24 05/02/24 History Allergy/AdvReac Type Severity Reaction Status Date / Time acetaminophen (From Vicodin) Allergy Rash Verified 05/02/24 23:28 codeine Allergy Anaphylaxis Verified 05/02/24 23:28 hydrocodone bitartrate (From Allergy Rash Verified 05/02/24 23:28 Vicodin) latex Allergy Swelling Verified 05/02/24 23:28 naproxen Allergy Hives Verified 05/02/24 23:28 ondansetron (From Zofran (as AdvReac Nausea Verified 05/02/24 23:28 hydrochloride)) Family History Mother Cancer Father Brain aneurysm Surgical History History of bowel resection Hx of hand surgery Hx of foot surgery Hx of arthroscopy of right knee History of tonsillectomy and adenoidectomy Hx of cholecystectomy Hx of appendectomy Social History household members: spouse Smoking Status: Never smoker alcohol intake: never substance use type: does not use ROS Constitutional Constitutional: Denies fatigue, fever(s), poor appetite, weight gain or weight loss Gastrointestinal Gastrointestinal: Denies belching, bloating, change in bowel habits, change in stool character, chewing difficulty, coffee ground emesis, constipation, cramping, diarrhea, dyspepsia, dysphagia, early satiety, excessive flatus, fecal incontinence, heartburn, hematemesis, hematochezia, hemorrhoids, loose stools, melena, nausea, odynophagia, rectal bleeding, tenesmus, vomiting or weight changes Physical Exam Const alert, oriented x3, no apparent distress and healthy appearing General Appearance: cooperative GI normal to inspection, nondistended, normoactive bowel sounds, soft to palpation, non-tender and non-distended Percussion: normal to percussion Rectal Exam: deferred Lab / Micro Data 05/03/24 13:38 05/03/24 05:30 Labs: Laboratory Results - last 24 hr 05/02/24 23:32: WBC 7.4, RBC 5.21, Hgb 13.9, Hct 42.5, MCV 81.6, MCH 26.7 L, MCHC 32.7, RDW Std Deviation 41.3, RDW Coeff of Mirlande 14.0, Plt Count 350, MPV 9.1, Immature Gran % (Auto) 0.400, Neut % (Auto) 52.8, Lymph % (Auto) 35.7, [place] % (Auto) 6.5, Eos % (Auto) 4.1, Baso % (Auto) 0.5, Absolute Neuts (auto) 3.9, Absolute Lymphs (auto) 2.63, Nucleated RBC % 0, PT 12.6, INR 0.9, APTT 27.0, Sodium 138, Potassium 3.7, Chloride 104, Carbon Dioxide 24.0, Anion Gap 10, BUN 18, Creatinine 1.00, Estim Creat Clear Calc 128.65, Est GFR (MDRD) Af Amer 104, Est GFR (MDRD) Non-Af 86, BUN/Creatinine Ratio 18.1, Glucose 105, Calcium 8.7, Magnesium 2.2, Total Bilirubin 0.30, AST 22, ALT 44, Alkaline Phosphatase 112, Troponin I High Sens 3, Total Protein 7.8, Albumin 3.4, Globulin 4.4 H, Albumin/Globulin Ratio 0.8 L, Lipase 30 L 05/02/24 23:57: Lactic Acid 1.0 05/03/24 00:32: Urine Color Yellow, Urine Clarity Clear, Urine pH 5.0, Ur Specific [place] 1.020, Urine Protein 30 H, Urine Glucose (UA) Normal, Urine Ketones 5 H, Urine Occult Blood 10 H, Urine Nitrite Negative, Urine Bilirubin 1 H, Urine Urobilinogen 1 H, Ur Leukocyte Esterase 25 H, Urine RBC 0 SEEN, Urine WBC 10-25 SEEN, Ur Squamous Epith Cells 0-5 SEEN, Urine Bacteria 1+, Urine Mucus 2+ 05/03/24 02:30: Troponin I High Sens 4 05/03/24 05:30: WBC 5.9, RBC 4.71, Hgb 12.4 L, Hct 38.7 L, MCV 82.2, MCH 26.3 L, MCHC 32.0, RDW Std Deviation 42.0, RDW Coeff of Mirlande 14.0, Plt Count 293, MPV 8.9, Immature Gran % (Auto) 0.300, Neut % (Auto) 38.5 L, Lymph % (Auto) 48.0 H, [place] % (Auto) 6.7, Eos % (Auto) 6.0 H, Baso % (Auto) 0.5, Absolute Neuts (auto) 2.3, Absolute Lymphs (auto) 2.81, Nucleated RBC % 0, Sodium 137, Potassium 3.9, Chloride 107, Carbon Dioxide 23.0, Anion Gap 8, BUN 21 H, Creatinine 0.83, Estim Creat Clear Calc 155.38, Est GFR (MDRD) Af Amer 128, Est GFR (MDRD) Non-Af 106, BUN/Creatinine Ratio 25.4 H, Glucose 103, Calcium 7.9 L, Total Bilirubin 0.20, AST 15, ALT 37, Alkaline Phosphatase 98, Troponin I High Sens < 3 L, Total Protein 6.7, Albumin 3.1 L, Globulin 3.6, Albumin/Globulin Ratio 0.9 05/03/24 13:38: Hgb 13.6, Hct 42.8 Micro: Microbiology 05/02/24 23:57 Stool Stool Occult Blood (VIOLETTE) - Final Occult Blood Positive Imaging Radiology Impression Abdomen/Pelvis CT 05/02/24 23:46 IMPRESSION: 1. Incomplete distention of the urinary bladder. Pseudobladder wall thickening measuring up to 6 mm. Correlate with urinalysis to exclude cystitis. 2. No bowel obstruction. Moderate amounts of fecal retention. Postsurgical changes involving the mid to distal sigmoid colon. Distal colon is decompressed. 3. Fat containing umbilical hernia measuring up to 6 cm. No bowel loop involvement. 4. Additional findings, as detailed above. One or more dose reduction techniques were used (e.g., Automated exposure control, adjustment of the mA and/or kV according to patient size, use of iterative reconstruction technique). Reading Location: [facility] Echocardiogram 05/03/24 01:44 Interpretation Summary The estimated ejection fraction is 65 %. No evidence for diastolic dysfunction. Ordering Physician: Yana Salmeron Performed By: Sebastian Harry RCS Assessment & Plan Assessment/Plan (1) Abdominal pain: PLAN: Plan 48 y/o M with multiple comorbidities reports having bright red blood per rectum with his bowel movement. He also complained coffee-ground emesis just prior to arrival in the ED again that was blood-tinged. Possible upper GI bleed: Differential diagnosis does include erosive esophagitis, swallowed blood from his nose, peptic ulcer disease secondary to 81 mg aspirin. He should undergo an upper endoscopy evaluate upper GI tract. He was explained alternatives, risk and benefits include not withstanding bleeding, infection, sepsis, perforation, need for emergent . He will have an ASA of 3. Charges/Coding Visit Charges Inpatient E&M: 92319 Init Hosp L2
--- NOTE | 2024-05-03 17:07 | PRE.ANES_ITS ---
ASA Classification* ASA Classification ASA Classification: 3 Assessment & Plan Anesthesia* Anesthesia Assessment Anesthesia Assessment: Discussed sedation and/or anesthesia options, risks, benefits, and alternatives with patient/parents/legal guardian/POA. Questions invited. The patient/parents/legal guardian/POA seems to understand and agrees to proceed with anesthesia plan. Reviewed the physical assessment, medical history, allergy history and patient home medications list prior to surgery/procedure/anesthetic and documented any changes. Performed airway and anesthesia risk assessments. Anesthesia Type Anesthesia Type: MAC Anesthesia Focused Assessment* Temperature: 97.8 F Pulse Rate: 71 Blood Pressure: 134/86 Respiratory Rate: 16 Pulse Ox: 95 Airway Assessment Mouth opens: >3 cm Mallampati Score: II Focused Labs Anesthesia Preop lab: CBC WBC 5.9 K/mm3 (4.4-11.0) 05/03/24 05:30 05/03/24 RBC 4.71 M/mm3 (4.6-6.2) 05/03/24 05:30 05/03/24 Hgb 13.6 g/dL (13.0-16.5) 05/03/24 13:38 05/03/24 Hct 42.8 % (40-54) 05/03/24 13:38 05/03/24 Plt Count 293 K/mm3 (150-450) 05/03/24 05:30 05/03/24 CHEMISTRY Potassium 3.9 mmol/L (3.5-5.1) 05/03/24 05:30 05/03/24 Sodium 137 mmol/L (136-145) 05/03/24 05:30 05/03/24 Magnesium 2.2 mg/dL (1.6-2.6) 05/02/24 23:32 05/02/24 BUN 21 mg/dL (7-18) H 05/03/24 05:30 05/03/24 Creatinine 0.83 mg/dL (0.70-1.30) 05/03/24 05:30 05/03/24 Glucose 103 mg/dL (74-106) 05/03/24 05:30 05/03/24 POC Glucose 83 mg/dL (70-110) 03/10/14 20:16 03/10/14 TSH 2.70 uIU/mL (0.358-3.74) 01/23/23 11:12 COAG PT 12.6 SECONDS (11.7-14.9) 05/02/24 23:32 Pre-Assessment Diagnosis/Proposed Procedure Planned Operative Procedure(s): EGD Anesthesia History Anesthesia History - reprographics associate: Anesthesia History - reprographics associate Hx Hospitalization No 04/06/20 09:54 Any Problems With Anesthesia No 05/03/24 06:02 Cholinesterase deficiency No 05/03/24 06:02 You/Your Family Experience No 05/03/24 06:02 fever (hyperthermia) with Relationship Recent Exposure to Contagious No 05/03/24 06:02 Disease Does patient have nerve No 05/03/24 06:02 stimulator Patient instructed to have No 05/03/24 06:02 device shut off --Does patient have Pacemaker No 05/03/24 15:21 or ICD? When Was Last Pacemaker Check QUESTION #4 FULL TEXT: You/Your Family Experience fever (hyperthermia) with Anesthesia Last Oral Intake Last Oral intake: Last Oral Intake NPO since 00:00 05/03/24 15:21 Meds taken in AM with sips of No 05/03/24 15:21 water? Meds patient instructed to take am of surgery PONV PONV - reprographics associate: PONV - reprographics associate Female HX of Motion Sickness HX of N/V After Surgery Non-Smoker Duration of Surgery greater than 60 minutes Number of Risk Factors PONV Score Height & Weight Height & Weight: Anesthesia: Height & Weight Height 5 ft 7 in 05/03/24 10:08 Weight: 147.8 kg 05/03/24 15:21 Body Mass Index (BMI) 51.0 05/03/24 06:02 Respiratory Assessment Respiratory Assessment - reprographics associate: Respiratory Tract Infection Hx - reprographics associate Hx Respiratory Tract Infection No 05/03/24 06:02 STOP Sleep Apnea STOP Sleep Apnea - reprographics associate: STOP Sleep Apnea - reprographics associate Hx Hypertension No 05/03/24 01:53 Hx Sleep Apnea No 05/03/24 01:53 CPAP BIPAP Do you snore loudly (louder No 05/03/24 01:53 than talking or can be heard Do you often feel tired/ No 05/03/24 01:53 fatigued/ sleepy during daytime? Has anyone observed you stop No 05/03/24 01:53 breathing during sleep? STOP Results Negative 05/03/24 01:53 QUESTION #5 FULL TEXT : Do you snore loudly (louder than talking or can be heard through closed doors)? Tobacco Use History Tobacco Use History - reprographics associate: Tobacco Use History - reprographics associate Tobacco Use Non-smoker 08/25/21 08:12 Smoking Status Never smoker 05/03/24 01:53 Hx Tobacco Use No 05/03/24 01:53 Years Smoking Packs Smoked per Day Smoking Cessation Date was within the last 15 years Hx Smoking Cessation Date Hx Smoking Cessation Counseling Hematologic Medial History Hematologic Hx - reprographics associate: Hematologic Medical Hx - rn documentation Hx of Blood Transfusion No 05/03/24 01:53 Hx of Transfusion in last 3 No 05/03/24 01:53 Months Date of Last Transfusion (if within last 3 months) Ever experience any problems No 05/03/24 01:53 with transfusion(s)? Specify any problems Hx of Preganancy in last 3 N/A 05/03/24 01:53 Months Nurse Filling Out Transfusion AGILL 05/03/24 01:53 & Questions: Date: 05/03/24 05/03/24 01:53 Time: 01:54 05/03/24 01:53 Patient unable to answer at this time (ie. confused, unrespo /Reproduction History /Reproductive History - reprographics associate: /Reproductive Hx- reprographics associate Hx Now Gestational Age (in weeks): EDC: Hx Hx Para Hx Section SAB Active Medications Active Medications: Current Medications Generic Name Dose Route Start Last Admin Trade Name Freq PRN Reason Stop Dose Admin Acetaminophen 650 mg 05/03/24 01:44 05/03/24 03:13 Acetaminophen 325 Mg Tablet PO 650 mg Q4H PRN PRN Administration Fever, pain -12/31 Al Hydroxide/Mg Hydroxide 30 ml 05/03/24 01:44 Mag Hydrox/Al Hydrox/Simeth 30 Ml Udc PO Q6H PRN PRN Gastric Burning Albuterol Sulfate 2.5 mg 05/03/24 01:44 Albuterol 2.5 Mg/3 Ml Vial.Neb. INHALATION Q2H PRN PRN Dyspnea, wheezing Hydralazine HCl 10 mg 05/03/24 01:44 Hydralazine 20 Mg/Ml Vial IV Q4H PRN PRN SBP > 160 Protocol Pantoprazole Sodium 40 mg/ 110 mls @ 330 mls/hr 05/03/24 10:00 05/03/24 08:45 Sodium Chloride IV Infused Q12 LORETO Infusion Sodium Chloride 100 mls @ 15 mls/hr 05/03/24 01:46 IV .Q6H40M PRN Saline Flush Sodium Chloride 100 mls @ 15 mls/hr 05/03/24 01:46 IV .Q6H40M PRN Additional IVPB Infusion Morphine Sulfate 2 mg 05/03/24 01:44 05/03/24 14:26 Morphine 2 Mg/Ml Syringe IV 2 mg Q3H PRN PRN Administration Pain Score 6-10 Oxycodone HCl 5 mg 05/03/24 01:44 05/03/24 03:13 Oxycodone 5 Mg Tablet PO 5 mg Q4H PRN PRN Administration Pain Score 4-10 Prochlorperazine Edisylate 5 mg 05/03/24 01:44 Prochlorperazine 10 Mg/2 Ml Vial IV Q4H PRN PRN Breakthrough nausea/vomiting Sertraline HCl 25 mg 05/03/24 10:00 05/03/24 12:56 Sertraline 50 Mg Tablet PO Not Given DAILY LORETO Sodium Chloride 10 - 40 ml 05/03/24 01:46 05/03/24 14:26 0.9% Saline Lock 10 Ml Syringe IV 10 ml UD PRN Administration SALINE FLUSH Temazepam 15 mg 05/03/24 01:44 Temazepam 15 Mg Capsule PO QHS PRN PRN INSOMNIA PFSH Medical History History of stroke History of VT (myocardial infarction) Anxiety and depression Morbid obesity Hypertension Diverticulitis large intestine Home Medications ?Medication ?Instructions ?Recorded ?Last Taken ?Type aspirin 81 mg chewable tablet 1 tab PO DAILY 10/20/23 05/02/24 History diclofenac sodium 50 mg 50 mg PO BID 05/02/24 History tablet,delayed release ondansetron HCl 4 mg tablet mg 05/02/24 Unknown Histor y sertraline 25 mg tablet 25 mg PO DAILY 05/02/2412/16 History Allergy/AdvReac Type Severity Reaction Status Date / Time acetaminophen (From Vicodin) Allergy Rash Verified 05/02/24 23:28 codeine Allergy Anaphylaxis Verified 05/02/24 23:28 hydrocodone bitartrate (From Allergy Rash Verified 05/02/24 23:28 Vicodin) latex Allergy Swelling Verified 05/02/24 23:28 naproxen Allergy Hives Verified 05/02/24 23:28 ondansetron (From Zofran (as AdvReac Nausea Verified 05/02/24 23:28 hydrochloride)) Family History Mother Cancer Father Brain aneurysm Surgical History History of bowel resection Hx of hand surgery Hx of foot surgery Hx of arthroscopy of right knee History of tonsillectomy and adenoidectomy Hx of cholecystectomy Hx of appendectomy Social History household members: spouse Smoking Status: Never smoker alcohol intake: never substance use type: does not use Review of Systems (Anesthesia) ROS Narrative System reviewed and no additional complaints, except as documented.
--- NOTE | 2024-05-03 17:28 | OP.EGD_ITS ---
Patient Name: Chris Mills Procedure Date: 05/03/2024 5:09 PM Date of : 1975 Age: 48 Procedure: Upper GI endoscopy Indications: Epigastric abdominal pain Providers: Logan White DO Medicines: Monitored Anesthesia Care Patient Profile: This is a 48 year old male. Refer to note in patient chart for documentation of history and physical. Patient has symptoms of acute epigastric abdominal pain. Complications: No immediate complications. Procedure: Pre-Anesthesia Assessment: - Prior to the procedure, a History and Physical was performed, and patient medications and allergies were reviewed. The patient is competent. The risks and benefits of the procedure and the sedation options and risks were discussed with the patient. All questions were answered and informed consent was obtained. Patient identification and proposed procedure were verified by the physician in the pre-procedure area. Mental Status Examination: alert and oriented. Airway Examination: normal oropharyngeal airway and neck mobility. Respiratory Examination: clear to auscultation. CV Examination: normal. Prophylactic Antibiotics: The patient does not require prophylactic antibiotics. Prior Anticoagulants: The patient has taken no anticoagulant or antiplatelet agents except for NSAID medication. ASA Grade Assessment: II - A patient with mild systemic disease. After reviewing the risks and benefits, the patient was deemed in satisfactory condition to undergo the procedure. The anesthesia plan was to use monitored anesthesia care (MAC). Immediately prior to administration of medications, the patient was re-assessed for adequacy to receive sedatives. The heart rate, respiratory rate, oxygen saturations, blood pressure, adequacy of pulmonary ventilation, and response to care were monitored throughout the procedure. The physical status of the patient was re-assessed after the procedure. After obtaining informed consent, the endoscope was passed under direct vision. Throughout the procedure, the patient's blood pressure, pulse, and oxygen saturations were monitored continuously. The Endoscope was introduced through the mouth, and advanced to the second part of duodenum. The upper GI endoscopy was accomplished without difficulty. The patient tolerated the procedure well. Scope In: 5:20:28 PM Scope Out: 5:23:32 PM Total Procedure Duration Time 0 hours 3 minutes 4 seconds Findings: The examined esophagus was normal. Three non-bleeding linear gastric ulcers with no stigmata of bleeding were found at the incisura. The largest lesion was 6 mm in largest dimension. Biopsies were taken with a cold forceps for histology. Verification of patient identification for the specimen was done. Estimated blood loss was minimal. Biopsies were taken with a cold forceps for Helicobacter pylori testing. Verification of patient identification for the specimen was done. Estimated blood loss was minimal. One non-bleeding superficial duodenal ulcer with no stigmata of bleeding was found in the duodenal bulb. The lesion was 4 mm in largest dimension. Impression: - Normal esophagus. - Non-bleeding gastric ulcers with no stigmata of bleeding. Biopsied. Ulcers are likely secondary to H. pylori. Await the histology and MEGHAN test. - Non-bleeding duodenal ulcer with no stigmata of bleeding. Recommendation: - [facility]. - Resume regular diet. - Continue present medications. - Await pathology results. - Repeat upper endoscopy in 3 months to evaluate the response to therapy. - Use Protonix (pantoprazole) 40 mg PO BID for 6 months. - Use sucralfate tablets 1 gram PO QID for 1 month. Procedure Code(s): --- Professional --- 00088, Esophagogastroduodenoscopy, flexible, transoral; with biopsy, single or multiple CPT copyright 2021 [employer]. All rights reserved. The codes documented in this report are preliminary and upon member service representative review may be revised to meet current compliance requirements. Logan White DO 05/03/2024 5:28:01 PM This report has been signed electronically. Number of Addenda: 0 Note Initiated On: 05/03/2024 5:09 PM
--- NOTE | 2024-05-03 17:28 | OP.CCLET_ITS ---
05/03/2024 Edmond Howard Re : Upper GI endoscopy procedure for Chris Mills Valdez Cooney This procedure was performed on Friday, May 03, 2024. My impressions and recommendations are as follows: Impressions : - Normal esophagus. - Non-bleeding gastric ulcers with no stigmata of bleeding. Biopsied. Ulcers are likely secondary to H. pylori. Await the histology and MEGHAN test. - Non-bleeding duodenal ulcer with no stigmata of bleeding. Recommendations : - [facility]. - Resume regular diet. - Continue present medications. - Await pathology results. - Repeat upper endoscopy in 3 months to evaluate the response to therapy. - Use Protonix (pantoprazole) 40 mg PO BID for 6 months. - Use sucralfate tablets 1 gram PO QID for 1 month. My findings are described in the full procedure note, which is enclosed. If I can be of further assistance, please feel free to contact me at . Sincerely, Logan White, 05/03/2024 5:28:01 PM This report has been signed electronically.
--- NOTE | 2024-05-03 17:29 | PCM.PN.BLA ---
Progress Note Follow-up in office: [2 weeks] Not okay to restart [diclofenac] Okay to restart [Aspirin] on [05/31/2024] New GI related medications for discharge: [Protonix and Carafate, await H. pylori status] Follow-up procedures needed: [Repeat EGD to confirm H. pylori eradication and ulcer resolution] Visit Charges Inpatient E&M: 95799 Subs Hosp L2
--- NOTE | 2024-05-03 17:33 | PCM.POST.ANE ---
Anesthesia: Postop Eval I Current Vital Signs Temperature: 97.1 F Pulse Rate: 77 Blood Pressure: 125/49 Respiratory Rate: 16 Pulse Ox: 93 Oxygen Delivery Method: Room Air Assessment Airway patent: Yes Spontaneous unlabored respirations: Yes Mental status: Asleep nausea: No Vomiting: No Anesthesia Complication: No Fluid Hydration Crystalloid volume administer (ml): 30 Total IV fluid infused: 30 Progress Note Anesthesia document: Postop Eval 1 completed: Yes
--- NOTE | 2024-05-03 17:41 | DCINST_ITS ---
Discharge Instructions Diet Discharge Diet: No restrictions DC O2, CPAP, BIPAP needs Home O2 Discharge instructions: No Dressing / Incision Discharge Activity: Return to Normal Activity Dressing / Incision Call your doctor if you observe: Fever of 101 or Higher, Shortness of breath, Dizziness, Fainting spells, Swelling in the ankles, Chest pain and Increased palpitations (irregular heartbeat) Follow Up Care Test Results: Test results from this visit will be discussed in further detail at your follow- up appointment, if applicable. Discharge Plan Admission Admit Date/Time: 05/03/24 01:00 Attending Provider: Luis James Primary Care Provider: KATHRYN VIGIL Consulting Providers: Yana Salmeron Discharge Orders/Prescriptions Prescriptions: New sucralfate 1 gram Tablet 1 g PO TIDAC 30 Days Qty: 90 0RF pantoprazole [Protonix] 40 mg tablet,delayed release (DR/EC) 40 mg PO BID 30 Days Qty: 60 3RF Continued aspirin 81 mg tablet,chewable 1 tab PO DAILY ondansetron HCl 4 mg tablet Patient Comments: [NO ORIGINAL SIG] sertraline 25 mg tablet 25 mg PO DAILY Discontinued diclofenac sodium 50 mg tablet,delayed release (DR/EC) 50 mg PO BID Referrals / Follow Up: Logan White DO [Med Staff - Active Staff] - Within 3 Months KATHRYN VIGIL CRNP [Primary Care Provider] - Within 1 Week Disposition Disposition (needs filled in before D/C Order can be placed): Home, Self Care
--- NOTE | 2024-05-03 18:23 | PCM.POSTANE2 ---
Anesthesia Postop Eval I Sum Postop Eval Completion status Anesthesia document: Postop Eval 1 completed: Yes Anesthesia Postop Eval I Summary Anesthesia Postop Eval I Summary: Anesthesia Postop Eval I: Assessment Summary Airway patent Yes 05/03/24 17:34 [email or web address] Spontaneous unlabored Yes 05/03/24 17:34 [email or web address] respirations Mental status Asleep 05/03/24 17:34 [email or web address] nausea No 05/03/24 17:34 [email or web address] Vomiting No 05/03/24 17:34 [email or web address] Anesthesia Postop Eval I: Fluid Summary Crystalloid volume administer 30 05/03/24 17:34 [email or web address] (ml) Colloids volume administered ( ml) Blood Product volume administered (ml) Total IV fluid infused 30 05/03/24 17:34 [email or web address] Anesthesia Postop Eval I: Summary Notes Anesthesia Complication No 05/03/24 17:34 [email or web address] Anesthesia Complication Comment: Post-operative progress note Anesthesia: Postop Eval II Evaluation Mental status: Awake Pain Level: 0 nausea: No Vomiting: No
== END 2024-05-03 17:44 | disposition home or self-care (01) ==
LOC: ED 05-03 01:02 → PCU 05-03 01:26
PROVIDERS: Internal Medicine Gastroenterology; Admitting Provider Family Medicine; Emergency Provider Surgery; PCP Nurse Practitioner Adult Health; Visit Provider Family Medicine
PROC: 0DJ08ZZ Inspection of Upper Intestinal Tract, Via Natural or Artificial Opening Endoscopic (ICD-10-PCS; CPT 43235; principal; 2024-05-03 16:55)
DX: K92.0 Hematemesis (principal); E66.01 Morbid (severe) obesity due to excess calories; Z68.43 Body mass index [BMI] 50.0-59.9, adult; R06.02 Shortness of breath; I10 Essential (primary) hypertension; Z79.82 Long term (current) use of aspirin; F41.9 Anxiety disorder, unspecified; Z79.899 Other long term (current) drug therapy; R04.0 Epistaxis; R07.9 Chest pain, unspecified; I25.2 Old myocardial infarction; I25.10 Atherosclerotic heart disease of native coronary artery without angina pectoris; F32.A Depression, unspecified; Z86.73 Personal history of transient ischemic attack (TIA), and cerebral infarction without residual deficits; K26.9 Duodenal ulcer, unspecified as acute or chronic, without hemorrhage or perforation; K25.9 Gastric ulcer, unspecified as acute or chronic, without hemorrhage or perforation
CPT/HCPCS: 43239; 36415; 74177; 80053; 81001; 82274; 83605; 83690; 83735; 84484; 85014; 85018; 85025; 85610; 85730; 87086; 87088; 88305; 88342; 93005; 93306; 96361; 96365; 96375; 96376; 97802; 99221; 99285; Q9957; Q9967; A4216; C8929; G0378; J2405

== ENCOUNTER 2024-05-08 19:57 | Emergency (ER) | payer MEDICARE, MEDICAID, SELFPAY ==
[2024-05-08 19:58] VITALS: BP 178/110; PULSE 101; RESP 16; TEMP 36.6; O2SAT 100; BMI 50.2
--- NOTE | 2024-05-08 20:31 | ED.VIS.GI ---
HPI HPI - GI History of Present Illness Chief Complaint: Abd Pain Informant: patient Abdominal Pain/Flank Pain Onset: Today Context: Sudden Onset Timing: Continuous Quality: Sharp and Stabbing Location: RUQ Worsened by: Nothing Relieved by: - (Laying flat) Nausea/Vomiting/Emesis GI Symptom: Negative for Nausea or Vomiting Diarrhea/Melena/Hematochezia GI Symptom: Positive for Diarrhea; Negative for Melena or Hematochezia Associated Symptoms Associated Symptoms: Negative for Dysuria, Frequency or Hematuria Narrative Narrative: Patient presents with abdominal hernia began today. Patient states it began rather suddenly. Patient states it has been constant. Patient describes the pain as stabbing. Patient states it is mainly over the right upper abdomen. Patient states it is better when he lays down. Patient denies any nausea or vomiting. Patient admits to some diarrhea but denies any melena or hematochezia. Patient states his diarrhea is green and mucousy. Patient denies any urinary complaints.. Patient denies any fevers or chills. Patient states he had a recent EGD which showed gastric ulcers. Patient is concerned that these have popped and started bleeding. [facility] Medical History History of stroke History of CO (myocardial infarction) Anxiety and depression Morbid obesity Hypertension Diverticulitis large intestine Home Medications ?Medication ?Instructions ?Recorded ?Last Taken ?Type ondansetron HCl 4 mg tablet 4 mg PRN nausea and vomiting 05/02/24 Unknown History sertraline 25 mg tablet 25 mg PO DAILY 05/02/24 05/02/24 History pantoprazole 40 mg tablet,delayed 40 mg PO BID 30 days #60 tabs 05/03/24 Unknown Rx release (Protonix) sucralfate 1 gram tablet 1 g PO TIDAC 30 days #90 tabs 05/03/24 Unknown Rx Allergy/AdvReac Type Severity Reaction Status Date / Time morphine Allergy Mild Rash Verified 05/08/24 22:14 acetaminophen (From Vicodin) Allergy Rash Verified 05/08/24 19:59 codeine Allergy Anaphylaxis Verified 05/08/24 19:59 hydrocodone bitartrate (From Allergy Rash Verified 05/08/24 19:59 Vicodin) latex Allergy Swelling Verified 05/08/24 19:59 naproxen Allergy Hives Verified 05/08/24 19:59 ondansetron (From Zofran (as AdvReac Nausea Verified 05/08/24 19:59 hydrochloride)) Family History Mother Cancer Father Brain aneurysm Surgical History History of bowel resection Hx of hand surgery Hx of foot surgery Hx of arthroscopy of right knee History of tonsillectomy and adenoidectomy Hx of cholecystectomy Hx of appendectomy Social History household members: spouse Smoking Status: Never smoker alcohol intake: never substance use type: does not use ROS ROS ED Constitutional Constitutional ED: Denies chills or fever(s) Eyes Eyes: Denies blurry vision or change in vision ENT ENT ED: Denies rhinorrhea or sore throat Cardiovascular Cardiovascular: Denies chest pain or palpitations Respiratory/Chest Respiratory/Chest: Reports cough; Denies dyspnea Gastrointestinal Gastrointestinal: Reports abdominal pain and diarrhea; Denies nausea or vomiting Genitourinary Genitourinary ED: Denies dysuria or hematuria Musculoskeletal Musculoskeletal: Denies back pain or neck pain Integumentary Denies abscess or rash Neurologic Neurologic: Denies headache(s) or weakness Allergic/Immunologic Allergic/Immunologic ED: Denies mouth swelling or urticaria EXAM Physical Exam Const Vital Signs: 05/08/24 19:58 05/08/24 21:58 Temperature 97.8 F Temperature Source Oral Pulse Rate 101 H 94 Respiratory Rate 16 17 Blood Pressure 178/110 H Blood Pressure Mean 132 Pulse Ox 100 97 Oxygen Delivery Method Room Air Room Air Positive well nourished and well developed Constitutional Narrative: BMI is 50.3 General Appearance ED: well developed and NAD HEENT Reports moist mucous membranes Neck supple and no JVD Resp normal respiratory effort and clear to auscultation bilaterally Cardio regular rate and regular rhythm GI non-distended Palpation: soft and tender RUQ; Negative for guarding or rebound tenderness present Extremity full ROM Neuro CN's II-XII intact bilaterally, moves all extremities and no sensory deficits noted Sensorium / Orientation: alert Motor Exam: strength 5/5 throughout Psych mental status grossly normal MDM MDM MDM Narrative Medical decision making narrative: Differential diagnosis includes gastrointestinal bleeding, peptic ulcer disease, duodenal ulcer, pancreatitis, choledocholithiasis, urinary tract infection, ureteral calculus, and electrolyte abnormality. CBC will be obtained to assess for leukocytosis and anemia. Comprehensive metabolic profile will be obtained to assess for electrolyte abnormality, renal function, and hepatic function. Lipase will be obtained to assess for pancreatitis. Urinalysis will be obtained to assess for urinary tract infection and hematuria. CT scan of the abdomen and pelvis will be obtained to assess for bowel obstruction, perforation, choledocholithiasis, and ureteral calculus. Lab Data Attestation: I reviewed the patient's lab results. Lab results narrative: CBC was reviewed. There is a slight leukocytosis of 14.2. Platelets were mildly elevated at 498 the remainder is within normal limits. Comprehensive metabolic profile was reviewed and was within normal limits. Lipase was reviewed and was normal at 29. Urinalysis was reviewed. There is no evidence of urinary tract infection or hematuria. Labs: Laboratory Results - last 24 hr 05/08/24 05/08/24 20:55 21:14 WBC 14.2 H RBC 5.08 Hgb 13.8 Hct 41.2 MCV 81.1 MCH 27.2 MCHC 33.5 RDW Std Deviation 39.3 RDW Coeff of Mirlande 13.3 Plt Count 498 H MPV 9.2 Immature Gran % (Auto) 0.600 Neut % (Auto) 64.5 Lymph % (Auto) 25.5 Taylor % (Auto) 5.8 Eos % (Auto) 3.0 Baso % (Auto) 0.6 Absolute Neuts (auto) 9.2 H Absolute Lymphs (auto) 3.63 Nucleated RBC % 0 Sodium 138 Potassium 3.6 Chloride 106 Carbon Dioxide 25.0 Anion Gap 7 BUN 14 Creatinine 0.97 Estim Creat Clear Calc 131.74 Est GFR (MDRD) Af Amer 107 Est GFR (MDRD) Non-Af 88 BUN/Creatinine Ratio 14.4 Glucose 106 Calcium 8.8 Total Bilirubin 0.30 AST 36 ALT 57 Alkaline Phosphatase 127 H Total Protein 7.8 Albumin 3.5 Globulin 4.3 H Albumin/Globulin Ratio 0.8 L Lipase 29 L Urine Color Yellow Urine Clarity Clear Urine pH 5.0 Ur Specific Bouse 1.025 Urine Protein 30 H Urine Glucose (UA) Normal Urine Ketones Negative Urine Occult Blood 10 H Urine Nitrite Negative Urine Bilirubin Negative Urine Urobilinogen Normal Ur Leukocyte Esterase Negative Urine RBC 0 SEEN Urine WBC 0 SEEN Ur Squamous Epith Cells 0 SEEN Urine Bacteria 0 SEEN Urine Mucus 1+ Radiography Diagnostic Testing: Clinical Impression(s) from Imaging Studies Abdomen/Pelvis CT 05/08/24 20:44 IMPRESSION: 1. No acute abnormality of the abdomen and pelvis. 2. Prior partial colonic resection and cholecystectomy. 3. Mild colonic diverticulosis. 4. Small fat containing umbilical and inguinal hernias. [facility] of the abdomen and pelvis was obtained. There are small umbilical and inguinal hernias containing fat. There is no bowel obstruction. There is no acute abnormality noted. This was interpreted by the radiologist and was also independently reviewed by myself. Treatment and Re-Evaluation :: Patient was given IV fluids. Patient was given morphine. Patient developed a patchy erythematous rash after receiving morphine. Patient denies any difficulty breathing or difficulty swallowing. Patient denies any throat swelling. Patient denies any change in his voice. Case was discussed with Dr. White. He stated that if the patient is not currently on Carafate, he should be started on Carafate. Otherwise, he will follow-up with the patient as an outpatient. Patient understood and was agreeable with the plan. All questions were answered. Discharge Plan Triage Chief Complaint: Abd Pain Other Complaint: GI Bleed ED Provider: Patrick Mroeno Dx/Rx/DC Orders Clinical Impression: Peptic ulcer disease, Abdominal pain Instructions: ED Gastritis Ulcer No Abx Prescriptions: No Action ondansetron HCl 4 mg tablet 4 mg PRN (Reason: nausea and vomiting) Patient Comments: [NO ORIGINAL SIG] sertraline 25 mg tablet 25 mg PO DAILY sucralfate 1 gram Tablet 1 g PO TIDAC 30 Days Qty: 90 0RF pantoprazole [Protonix] 40 mg tablet,delayed release (DR/EC) 40 mg PO BID 30 Days Qty: 60 3RF Primary Care Provider: KATHRYN VIGIL Referrals: Logan White DO [Med Staff - Active Staff] - 3-5 Days KATHRYN VIGIL CRNP [Primary Care Provider] - 5-7 Days Print Language: Korean Disposition Disposition: Home, Self Care
--- NOTE | 2024-05-08 20:44 | CT_ITS ---
PROCEDURE: ABDOMEN/PELVIS W IV CONT ONLY REASON FOR EXAM: Abdominal pain TECHNIQUE: Abdomen and pelvis CT with intravenous contrast. Multiplanar reconstructions performed COMPARISON: 05/03/2024 FINDINGS: Lower chest: Lateral scarring is present in the left lung base. Liver: Unremarkable. Biliary/gallbladder: Prior cholecystectomy. Pancreas: Unremarkable. Spleen: Unremarkable. Adrenal glands: Unremarkable. Kidneys: Unremarkable. Gastrointestinal/peritoneum: Prior partial colonic resection with a surgical anastomosis at the rectosigmoid junction. Mild colonic diverticulosis is present.The appendix is not discretely visualized.No free air or free fluid. Vascular: Unremarkable. Lymph nodes: No enlarged lymph nodes by CT size criteria. Pelvic organs: Unremarkable. Bladder: Unremarkable. Bones: There are mild multilevel degenerative changes present in the visualized spine. Soft tissues: There is a fat containing umbilical hernia measuring 5.0 x 2.7 cm. There are small fat containing bilateral inguinal hernias. CT/Abdomen/Pelvis W IV Cont ONLY IMPRESSION: 1. No acute abnormality of the abdomen and pelvis. 2. Prior partial colonic resection and cholecystectomy. 3. Mild colonic diverticulosis. 4. Small fat containing umbilical and inguinal hernias. Reading [facility]
[2024-05-08] MEDS: Morphine 4 MG/ML Syringe IV (20:58)
[2024-05-08] MEDS: 0.9% Normal Saline (1000mL) 1,000 ML 999 ML IV (20:58)
[2024-05-08 21:08] LABS: Absolute Lymphocyte Count 3.63 X10^3/uL (0.83-4.51); Absolute Neutrophil Count 9.2 X10^3/uL (2.0-7.7); Basophil# 0.09 X10^3/uL; Basophil% 0.6 % (0-1); Eosinophil# 0.43 X10^3/uL; Hematocrit 41.2 % (40-54); Hemoglobin 13.8 g/dL (13.0-16.5); Lymphocyte # 3.63 X10^3/ul (0.83-4.51); Lymphocyte % 25.5 % (19-41); Mean Corp Hgb Conc 33.5 g/dL (32-36); Mean Corpuscular Hgb 27.2 pg (27.0-32.0); Mean Corpuscular Volume 81.1 fL (80-94); Mean Platelet Vol. 9.2 fl (6.2-12.0); Monocyte# 0.83 X10^3/uL; Monocyte% 5.8 % (0-10); NRBC Flagged by Analyzer 0 % (0-5); Neutrophil # 9.16 X10^3/uL (2.7-7.7); Neutrophil % 64.5 % (47-70); Platelet Count 498 K/mm3 (150-450); RBC Distribution Width CV 13.3 % (11.6-14.6); RBC Distribution Width SD 39.3 fl (35.1-43.9); Red Blood Count 5.08 M/mm3 (4.6-6.2); White Blood Count 14.2 K/mm3 (4.4-11.0)
[2024-05-08 21:19] LABS: Bacteria 0 SEEN /hpf (None Seen); Squamous Epithelial Cells - UA 0 SEEN /hpf (0-5); White Blood Cells 0 SEEN /hpf (0-5)
[2024-05-08 21:20] LABS: Color, Urine Yellow (Yellow); Glucose, Dipstick Normal (Normal); Ketone-Dipstick Negative (Negative); Leukocyte Esterase-Dipstick Negative /ul (Negative); Nitrite-Dipstick Negative (Negative); Occult Blood-Urine 10 /ul (Negative); Protein-Dipstick 30 mg/dl (Negative); Specific Gravity, Urine 1.025 (1.002-1.030); Urine Bilirubin Dipstick Negative (Negative); Urine Clarity Clear (Clear); Urine Urobilinogen Normal (Normal)
[2024-05-08 21:25] LABS: ALB/GLOB Ratio 0.8 RATIO (0.9-2.4); AST(SGOT) 36 U/L (15-37); Alanine Aminotransfer ALT/SGPT 57 U/L (16-61); Albumin, Serum 3.5 g/dL (3.2-5.0); Alkaline Phosphatase 127 U/L (45-117); Anion Gap 7 (5-15); BUN 14 mg/dL (7-18); BUN/Creat Ratio 14.4 RATIO (10-20); Calcium,Total 8.8 mg/dL (8.5-10.1); Chloride 106 mmol/L (98-107); Creatinine, Serum 0.97 mg/dL (0.70-1.30); EST Glomerular Filtration Rate 88 mL/min (>60); Est Glom Filt Rate - Afr Amer 107 mL/min (>60); Estimated Creatinine Clearance 131.74 ml/min; Globulin 4.3 g/dL (2.2-4.2); Glucose 106 mg/dL (74-106); Lipase 29 U/L (73-393); Potassium 3.6 mmol/L (3.5-5.1); Protein, Total 7.8 g/dL (6.4-8.2); Sodium Level 138 mmol/L (136-145)
[2024-05-08 21:31] LABS: Mucous, Urine 1+ /hpf (<or=2+); Red Blood Cells-Urine 0 SEEN /hpf (0-5)
[2024-05-08 21:58] VITALS: PULSE 94; RESP 17; O2SAT 97
== END 2024-05-08 22:48 | disposition home or self-care (01) ==
PROVIDERS: Emergency Provider Emergency Medicine; PCP Nurse Practitioner Adult Health; Visit Provider Emergency Medicine
DX: K27.9 Peptic ulcer, site unspecified, unspecified as acute or chronic, without hemorrhage or perforation (principal); R19.7 Diarrhea, unspecified; I10 Essential (primary) hypertension; I25.2 Old myocardial infarction; Z86.73 Personal history of transient ischemic attack (TIA), and cerebral infarction without residual deficits; F41.9 Anxiety disorder, unspecified; F32.A Depression, unspecified; Z90.49 Acquired absence of other specified parts of digestive tract; R10.9 Unspecified abdominal pain
CPT/HCPCS: 74177; 80053; 81001; 83690; 85025; 96361; 96374; 99283; Q9967; A4216

== ENCOUNTER 2024-05-29 22:07 | Emergency (ER) | payer MEDICARE, MEDICAID, SELFPAY ==
[2024-05-29 22:08] VITALS: BP 188/74; PULSE 114; RESP 25; TEMP 36.6; O2SAT 97
--- NOTE | 2024-05-29 22:27 | CT_ITS ---
PROCEDURE: ABDOMEN/PELVIS W IV CONT ONLY REASON FOR EXAM: Right upper quadrant pain. Vomiting. TECHNIQUE: Abdomen and pelvis CT with intravenous contrast. COMPARISON: CT abdomen/pelvis from 05/08/2024. FINDINGS: Lung bases are clear. The liver, spleen, pancreas, and adrenal glands are unremarkable. Gallbladder is surgically absent. Abdominal aorta demonstrates a normal caliber. Bilateral kidneys enhance homogeneously without hydronephrosis or obstructive uropathy. There is mild bilateral perinephric stranding likely on a chronic basis. No biliary ductal dilatation is seen. There is a fat containing umbilical hernia with the ventral abdominal wall defect measuring 3.3 x 1.7 cm in the transverse and CC dimensions respectively and the hernia sac measuring approximately 5.1 x 3.4 x 3.7 cm. Urinary bladder is underdistended. There are fat containing bilateral inguinal hernias. There are postsurgical changes of the rectum. No colonic obstruction or pericolonic inflammatory changes are present. There is mild retained stool in the colon. Appendix is not visualized. Small bowel demonstrates a normal caliber. No free air or free fluid is identified. Evaluation of the osseous structures demonstrates no acute findings. Mild degenerative changes are present. CT/Abdomen/Pelvis W IV Cont ONLY IMPRESSION: 1. No acute inflammatory changes, obstructive uropathy, free air, or free fluid . 2. Additional findings as above. One or more dose reduction techniques were used (e.g., Automated exposure contr ol, adjustment of the mA and/or kV according to patient size, use of iterative reconstruction technique). Reading Location: [facility]
--- NOTE | 2024-05-29 22:29 | EDS_ITS ---
HPI HPI - GI History of Present Illness Chief Complaint: GI Bleed Informant: patient, family and friend Narrative Narrative: Right upper abdominal pain worsens even after hard cough. Said productive cough for 2 weeks. No fevers. History of cholecystectomy. States after pain started feeling sick throwing up brown color. History of gastric ulcer diagnosed last month. He is on sucralfate and pantoprazole has been taking his medications. Denies NSAID use. Normal bowel movement this morning. PFSH PFSH Medical History History of stroke History of [place] (myocardial infarction) Anxiety and depression Morbid obesity Hypertension Diverticulitis large intestine Home Medications ?Medication ?Instructions ?Recorded ?Last Taken ?Type ondansetron HCl 4 mg tablet 4 mg PO Q6H PRN nausea and vomiting 05/02/24 Unknown History sertraline 25 mg tablet 25 mg PO DAILY 05/02/2412/16 History pantoprazole 40 mg tablet,delayed 40 mg PO BID 30 days #60 tabs 05/03/24 Unknown Rx release (Protonix) sucralfate 1 gram tablet 1 g PO TIDAC 30 days #90 tab s 05/03/24 Unknown Rx docusate sodium 100 mg capsule 100 mg PO BID #60 caps 05/30/24 Unknown Rx (Colace) oxycodone-acetaminophen 5 mg-325 1 tab PO Q6H PRN PRN Pain 3 days 05/30/24 Unknown Rx mg tablet #12 TABLETS promethazine 25 mg tablet 25 mg PO Q6H PRN nausea and 05/30/24 Unknown Rx vomiting #10 tabs Allergy/AdvReac Type Severity Reaction Status Date / Time morphine Allergy Mild Rash Verified 05/29/24 22:08 acetaminophen (From Vicodin) Allergy Rash Verified 05/29/24 22:08 codeine Allergy Anaphylaxis Verified 05/29/24 22:08 hydrocodone bitartrate (From Allergy Rash Verified 05/29/24 22:08 Vicodin) latex Allergy Swelling Verified 05/29/24 22:08 naproxen Allergy Hives Verified 05/29/24 22:08 ondansetron (From Zofran (as AdvReac Nausea Verified 05/29/24 22:08 hydrochloride)) Family History Mother Cancer Father Brain aneurysm Surgical History History of bowel resection Hx of hand surgery Hx of foot surgery Hx of arthroscopy of right knee History of tonsillectomy and adenoidectomy Hx of cholecystectomy Hx of appendectomy Social History household members: spouse Smoking Status: Never smoker alcohol intake: never substance use type: does not use ROS ROS ED Constitutional Constitutional ED: Denies chills, fever(s) or sweats ENT ENT ED: Denies sore throat Cardiovascular Cardiovascular: Denies chest pain, leg edema, palpitations or racing heartbeat Respiratory/Chest Respiratory/Chest: Reports cough; Denies dyspnea or dyspnea on exertion Gastrointestinal Gastrointestinal: Reports abdominal pain, nausea and vomiting; Denies diarrhea Genitourinary Genitourinary ED: Denies dysuria, hematuria or urinary frequency Musculoskeletal Musculoskeletal: Denies back pain, extremity pain or neck pain Integumentary Denies rash or wounds Neurologic Neurologic: Denies headache(s), paresthesias or weakness EXAM Physical Exam Const Vital Signs: 05/29/24 22:08 05/30/24 00:08 Temperature 97.8 F Temperature Source Temporal Pulse Rate 114 H 64 Respiratory Rate 25 H 12 Blood Pressure 188/74 H 112/78 Blood Pressure Mean 112 89 Pulse Ox 97 99 Oxygen Delivery Method Room Air Room Air Positive well nourished and well developed Constitutional Narrative: Uncomfortable, nontoxic holding hand on right upper quadrant. General Appearance ED: well developed HEENT Reports moist mucous membranes normocephalic and atraumatic Eyes General Eye ED: Yes normal appearance of both eyes Neck full ROM Chest Wall Chest: Negative for tenderness Resp normal respiratory effort and normal air movement Effort and Inspection: symmetric chest movement; Negative for respiratory distress Cardio regular rhythm and no murmurs Rate: tachycardic Peripheral Pulses: pulses 2+ throughout GI normal to inspection, nondistended, normoactive bowel sounds GI Narrative: Tender palpation right upper quadrant lateral ribs, no ecchymosis. No epigastric tenderness. No lower quadrant tenderness. Palpation: Negative for guarding or rebound tenderness present Extremity normal to inspection General Extremety ED: Negative for edema or tenderness General Extremity: Negative for edema Neuro oriented x3 and no sensory deficits noted Sensorium / Orientation: awake and alert Skin no rashes or lesions noted and no wounds MDM MDM MDM Narrative Medical decision making narrative: Interventions / MDM: Differential diagnosis: Rib fracture, viral upper respiratory infection, Diagnosis considered but do not suspect: Pneumonia however image studies negative. My EKG interpretation: N/A Imaging independently reviewed and interpreted by myself: 2 view chest x-ray: No acute process. CT abdomen pelvis IV contrast: No intra-abdominal process, concerns for nondisplaced anterior right rib 9 fracture. External documents reviewed: Hospitalization and EGD from May 03, 2024. Nonbleeding gastric ulcer seen on EGD. Negative for H. pylori. He was previously on diclofenac which has been stopped. Test considered but not ordered:N/A ED course: Patient symptoms started after heavy cough with pain. Tender right upper quadrant lateral rib lines. He reports brown-colored emesis history of gastric ulcer. He is on medications for this. Tachycardic but comfortable. Pulse ox 97 on room air. IV established fluids given abdominal labs will be ordered. Will check CT abdomen pelvis. Morphine for which she reported as tolerated, Reglan as he is allergic to Zofran and Protonix IV ordered. Two- view chest x-ray for further evaluation. 2350: Chest x-ray negative. Labs stable. Lipase normal liver enzymes normal hemoglobin 13. His continued pain, I reviewed his CT scan concerns for nondisplaced anterior ninth rib fracture in the area of his pain. No pneumothorax. No pneumonia seen. Will order additional morphine awaiting for final read. Final read radiology did not note fracture however concerning symptoms and viewed on my interpretation. Umbilical hernia again was noted with fat. No pain in umbilical region. Discussed results with patient family and showed them imagings. Started oxycodone with stool softeners. He is set for spirometer for home. Outpatient follow-up with her doctor for continued pain control. All questions were answered. Re-evaluation: stable Disposition discussed with patient/family/significant other: Patient and significant other Case discussed with consulting clinician: N/A This note was generated with [employer] dictation software. It may contain incorrect words, spelling, and punctuation that were not noted in checking the note before signing. Lab Data Attestation: I reviewed the patient's lab results. Labs: Laboratory Results - last 24 hr 05/29/24 22:23 WBC 13.1 H RBC 4.80 Hgb 13.0 Hct 39.4 L MCV 82.1 MCH 27.1 MCHC 33.0 RDW Std Deviation 40.5 RDW Coeff of Mirlande 13.7 Plt Count 390 MPV 9.2 Immature Gran % (Auto) 0.500 Neut % (Auto) 62.4 Lymph % (Auto) 28.7 Stanley % (Auto) 5.0 Eos % (Auto) 3.0 Baso % (Auto) 0.4 Absolute Neuts (auto) 8.2 H Absolute Lymphs (auto) 3.75 Nucleated RBC % 0 Sodium 139 Potassium 3.6 Chloride 102 Carbon Dioxide 24.6 Anion Gap 13 BUN 15 Creatinine 0.90 Est GFR (MDRD) Non-Af 106 BUN/Creatinine Ratio 16.3 Glucose 123 H Calcium 9.1 Total Bilirubin 0.18 AST 22 ALT 21 Alkaline Phosphatase 131 H Total Protein 7.4 Albumin 4.1 Globulin 3.4 Albumin/Globulin Ratio 1.2 Lipase 23 Radiography Diagnostic Testing: Clinical Impression(s) from Imaging Studies Abdomen/Pelvis CT 05/29/24 22:27 IMPRESSION: 1. No acute inflammatory changes, obstructive uropathy, free air, or free fluid. 2. Additional findings as above. One or more dose reduction techniques were used (e.g., Automated exposure control, adjustment of the mA and/or kV according to patient size, use of iterative reconstruction technique). Reading Location: [facility] Chest X-Ray 05/29/24 23:00 IMPRESSION: NO ACUTE FINDINGS. Reading [facility] Discharge Plan Triage Chief Complaint: GI Bleed ED Provider: Luis Marmolejo Dx/Rx/DC Orders Clinical Impression: Right rib fracture, Viral URI with cough, Gastritis Instructions: ED Rib Fracture, ED Gastritis (Adult), ED URI, Viral, No Abx (Adult) Prescriptions: New oxycodone-acetaminophen 5-325 mg tablet 1 tab PO Q6H PRN PRN (Reason: Pain) 3 Days Qty: 12 0RF docusate sodium [Colace] 100 mg capsule 100 mg PO BID Qty: 60 0RF promethazine 25 mg tablet 25 mg PO Q6H PRN (Reason: nausea and vomiting) Qty: 10 0RF No Action ondansetron HCl 4 mg tablet 4 mg PO Q6H PRN (Reason: nausea and vomiting) Patient Comments: [NO ORIGINAL SIG] sertraline 25 mg tablet 25 mg PO DAILY sucralfate 1 gram Tablet 1 g PO TIDAC 30 Days Qty: 90 0RF pantoprazole [Protonix] 40 mg tablet,delayed release (DR/EC) 40 mg PO BID 30 Days Qty: 60 3RF Primary Care Provider: KATHRYN VIGIL Referrals: KATHRYN VIGIL CRNP [Primary Care Provider] - 3-5 Days Activity Restrictions/Additional Instructions: Your CT concerns for nondisplaced right anterior rib fracture seen by myself. Use incentive spirometer. Take pain medicine as prescribed. Stool softeners to avoid constipation. X-ray negative for pneumonia. Follow-up with your doctor for continued refills if needed for pain control. Continue your pantoprazole and finish your Carafate. Monitor for any black or bloody stools. Print Language: French Disposition Disposition: Home, Self Care Discharge Date/Time: 05/30/24 01:08
[2024-05-29] MEDS: Metoclopramide 10 MG/2 ML Vial 5 MG IV (22:33)
[2024-05-29] MEDS: 0.9% Normal Saline (1000mL) 1,000 ML 1000 ML IV (22:33)
[2024-05-29] MEDS: Morphine 4 MG/ML Syringe IV (22:33)
[2024-05-29 22:37] LABS: Absolute Lymphocyte Count 3.75 X10^3/uL (0.83-4.51); Absolute Neutrophil Count 8.2 X10^3/uL (2.0-7.7); Basophil# 0.05 X10^3/uL; Basophil% 0.4 % (0-1); Eosinophil# 0.39 X10^3/uL; Hematocrit 39.4 % (40-54); Lymphocyte # 3.75 X10^3/ul (0.83-4.51); Lymphocyte % 28.7 % (19-41); Mean Corpuscular Hgb 27.1 pg (27.0-32.0); Mean Corpuscular Volume 82.1 fL (80-94); Mean Platelet Vol. 9.2 fl (6.2-12.0); Monocyte# 0.65 X10^3/uL; NRBC Flagged by Analyzer 0 % (0-5); Neutrophil # 8.17 X10^3/uL (2.7-7.7); Neutrophil % 62.4 % (47-70); Platelet Count 390 K/mm3 (150-450); RBC Distribution Width CV 13.7 % (11.6-14.6); RBC Distribution Width SD 40.5 fl (35.1-43.9); White Blood Count 13.1 K/mm3 (4.4-11.0)
--- NOTE | 2024-05-29 23:00 | RAD_ITS ---
PROCEDURE: CHEST PA AND LATERAL REASON FOR EXAM: Cough TECHNIQUE: Frontal and lateral views of the chest. COMPARISON: Chest radiograph dated 06/22/2023 FINDINGS: The heart size is normal. The mediastinal contour is unremarkable. The lungs are clear. The bones are unremarkable. RAD/Chest PA and Lateral IMPRESSION: NO ACUTE FINDINGS. Reading Location: [facility]
[2024-05-29 23:05] LABS: ALB/GLOB Ratio 1.2 RATIO (0.9-2.4); AST(SGOT) 22 U/L (<=37); Alanine Aminotransfer ALT/SGPT 21 U/L (<=46); Albumin, Serum 4.1 g/dL (3.5-5.0); Alkaline Phosphatase 131 U/L (40-129); Anion Gap 13 (5-15); BUN 15 mg/dL (4-19); BUN/Creat Ratio 16.3 RATIO (10-20); Calcium,Total 9.1 mg/dL (7.6-11.0); Carbon Dioxide 24.6 mmol/L (21.0-32.0); Chloride 102 mmol/L (98-108); EST Glomerular Filtration Rate 106 (>60); Globulin 3.4 g/dL (2.2-4.2); Glucose 123 mg/dL (70-99); Lipase 23 U/L (13-75); Potassium 3.6 mmol/L (3.3-5.1); Protein, Total 7.4 g/dL (5.9-8.4); Sodium Level 139 mmol/L (133-145); Total Bilirubin 0.18 mg/dL (0.00-1.30)
[2024-05-29] MEDS: Pantoprazole Sodium 40 MG in 0.9% Normal Saline (100mL MB+) 100 ML 330 MG IV (23:09)
[2024-05-30 00:08] VITALS: BP 112/78; PULSE 64; RESP 12; O2SAT 99; BMI 52.4
[2024-05-30] MEDS: Morphine 4 MG/ML Syringe IV (00:18)
[2024-05-30] MEDS: oxyCODONE 5 MG Tablet PO (01:04)
== END 2024-05-30 01:08 | disposition home or self-care (01) ==
PROVIDERS: Emergency Provider Emergency Medicine; PCP Nurse Practitioner Adult Health; Visit Provider Emergency Medicine
DX: S22.31XA Fracture of one rib, right side, initial encounter for closed fracture (principal); J06.9 Acute upper respiratory infection, unspecified; K42.9 Umbilical hernia without obstruction or gangrene; K29.70 Gastritis, unspecified, without bleeding; K25.9 Gastric ulcer, unspecified as acute or chronic, without hemorrhage or perforation; I10 Essential (primary) hypertension; Z90.49 Acquired absence of other specified parts of digestive tract; I25.2 Old myocardial infarction; Z86.73 Personal history of transient ischemic attack (TIA), and cerebral infarction without residual deficits; F41.9 Anxiety disorder, unspecified; F32.A Depression, unspecified; Z87.19 Personal history of other diseases of the digestive system; R05.9 Cough, unspecified; X58.XXXA Exposure to other specified factors, initial encounter
CPT/HCPCS: 71046; 74177; 80053; 83690; 85025; 96361; 96374; 96375; 96376; 99283; Q9967; A4216

== ENCOUNTER 2024-06-24 22:34 | Emergency (ER) | payer MEDICARE, MEDICAID, SELFPAY ==
[2024-06-24 22:35] VITALS: BP 166/106; PULSE 100; RESP 18; TEMP 36.8; O2SAT 98; BMI 52.2
[2024-06-24] MEDS: Lidocaine 2% Viscous15 ML UDC 15 ML PO (23:26)
[2024-06-24] MEDS: proCHLORPERazine 10 MG/2 ML Vial 5 MG IV (23:26)
[2024-06-24] MEDS: Mag Hydrox/Al Hydrox/Simeth 30 ML UDC PO (23:26)
[2024-06-24] MEDS: 0.9% Normal Saline (1000mL) 1,000 ML 999 ML IV (23:26)
[2024-06-24] MEDS: HYDROmorphone 0.5 MG/0.5 ML SYRINGE 1 MG IV (23:27)
[2024-06-24] MEDS: Pantoprazole Sodium 40 MG in 0.9% Normal Saline (100mL MB+) 100 ML 330 MG IV (23:30)
[2024-06-24 23:35] LABS: Absolute Lymphocyte Count 3.82 X10^3/uL (0.83-4.51); Absolute Neutrophil Count 7.9 X10^3/uL (2.0-7.7); Basophil# 0.09 X10^3/uL; Basophil% 0.7 % (0-1); Eosinophil# 0.44 X10^3/uL; Eosinophils% 3.4 % (0-5); Hematocrit 41.3 % (40-54); Hemoglobin 13.5 g/dL (13.0-16.5); Lymphocyte # 3.82 X10^3/ul (0.83-4.51); Lymphocyte % 29.5 % (19-41); Mean Corp Hgb Conc 32.7 g/dL (32-36); Mean Corpuscular Hgb 26.6 pg (27.0-32.0); Mean Corpuscular Volume 81.5 fL (80-94); Mean Platelet Vol. 9.3 fl (6.2-12.0); Monocyte% 5.4 % (0-10); NRBC Flagged by Analyzer 0 % (0-5); Neutrophil # 7.87 X10^3/uL (2.7-7.7); Neutrophil % 60.6 % (47-70); Platelet Count 335 K/mm3 (150-450); RBC Distribution Width CV 13.8 % (11.6-14.6); RBC Distribution Width SD 40.5 fl (35.1-43.9); Red Blood Count 5.07 M/mm3 (4.6-6.2)
--- NOTE | 2024-06-24 23:35 | RAD_ITS ---
PROCEDURE: ACUTE ABDOMEN INC CHEST 06/24/2024 REASON FOR EXAM: ABD PAIN TECHNIQUE: Single view chest with supine and upright views of the abdomen. COMPARISON: None FINDINGS: Hardware: None Heart: Cardiac and mediastinal contours are stable. Lungs: No focal consolidation. No pneumothorax. No pleural effusion. Bowel gas: Bowel gas pattern is normal. No evidence of bowel obstruction. Moderate colonic stool. Free air: No free air. Calcifications: No suspicious calcifications. Bones: The bones are unremarkable. Other: No radiopaque foreign body. RAD/Acute Abdomen Inc Chest IMPRESSION: NEGATIVE ACUTE ABDOMINAL SERIES [facility]
[2024-06-25 00:01] LABS: Lipase 22 U/L (13-75)
[2024-06-25 00:06] LABS: AST(SGOT) 33 U/L (<=37); Alanine Aminotransfer ALT/SGPT 44 U/L (<=46); Albumin, Serum 3.8 g/dL (3.5-5.0); Alkaline Phosphatase 124 U/L (40-129); Anion Gap 13 (5-15); BUN 14 mg/dL (4-19); BUN/Creat Ratio 15.2 RATIO (10-20); Bilirubin, Direct < 0.08 mg/dL (0.00-0.30); Calcium,Total 8.9 mg/dL (7.6-11.0); Chloride 103 mmol/L (98-108); Creatinine, Serum 0.93 mg/dL (0.70-1.20); EST Glomerular Filtration Rate 103 (>60); Estimated Creatinine Clearance 139.12 ml/min (50-250); Globulin 3.4 g/dL (2.2-4.2); Glucose 114 mg/dL (70-99); Potassium 4.1 mmol/L (3.3-5.1); Protein, Total 7.2 g/dL (5.9-8.4); Sodium Level 136 mmol/L (133-145); Total Bilirubin 0.27 mg/dL (0.00-1.30)
[2024-06-25] MEDS: fentaNYL 100 MCG/2 ML Ampul 50 MCG IV (00:18)
[2024-06-25 00:20] VITALS: PULSE 101; RESP 18; O2SAT 93
--- NOTE | 2024-06-25 00:34 | EX.ED.DYSGE1 ---
HPI History of Present Illness Chief Complaint: Abd Pain Informant: patient Narrative Narrative: Patient is a 49-year-old male who reports a past medical history of diverticulitis hypertension and ulcers. He states that he was feeling normal and this evening was eating garlic Parmesan chicken wings with ranch sauce and then developed pain in the midepigastric to left upper quadrant region. He states he had a bout of emesis and that it was orange. He denies any fevers chills or known sick contacts. He states that he has had sharp stabbing pain in the upper abdomen that does not radiate that is not being controlled with [id number] medications and therefore comes in for evaluation [facility] Medical History History of stroke History of [place] (myocardial infarction) Anxiety and depression Morbid obesity Hypertension Diverticulitis large intestine Home Medications ?Medication ?Instructions ?Recorded ?Last Taken ?Type ondansetron HCl 4 mg tablet 4 mg PO Q6H PRN nausea and vomiting 05/02/24 Unknown History sertraline 25 mg tablet 25 mg PO DAILY 05/02/24 05/02/24 History pantoprazole 40 mg tablet,delayed 40 mg PO BID 30 days #60 tabs 05/03/24 Unknown Rx release (Protonix) sucralfate 1 gram tablet 1 g PO TIDAC 30 days #90 tabs 05/03/24 Unknown Rx docusate sodium 100 mg capsule 100 mg PO BID #60 caps 05/30/24 Unknown Rx (Colace) oxycodone-acetaminophen 5 mg-325 1 tab PO Q6H PRN PRN Pain 3 days 05/30/24 Unknown Rx mg tablet #12 TABLETS promethazine 25 mg tablet 25 mg PO Q6H PRN nausea and 05/30/24 Unknown Rx vomiting #10 tabs oxycodone 5 mg tablet 5 mg PO Q6H PRN pain 3 days #12 06/25/24 Unknown Rx tabs pantoprazole 40 mg tablet,delayed 40 mg PO DAILY 30 days #30 tabs 06/25/24 Unknown Rx release (Protonix) sucralfate 1 gram tablet (Carafate) 1 g PO TID 30 days #90 tabs 06/25/24 Unknown Rx Allergy/AdvReac Type Severity Reaction Status Date / Time morphine Allergy Mild Rash Verified 06/24/24 22:38 acetaminophen (From Vicodin) Allergy Rash Verified 06/24/24 22:38 codeine Allergy Anaphylaxis Verified 06/24/24 22:38 hydrocodone bitartrate (From Allergy Rash Verified 06/24/24 22:38 Vicodin) latex Allergy Swelling Verified 06/24/24 22:38 naproxen Allergy Hives Verified 06/24/24 22:38 ondansetron (From Zofran (as AdvReac Nausea Verified 06/24/24 22:38 hydrochloride)) Family History Mother Cancer Father Brain aneurysm Surgical History History of bowel resection Hx of hand surgery Hx of foot surgery Hx of arthroscopy of right knee History of tonsillectomy and adenoidectomy Hx of cholecystectomy Hx of appendectomy Social History household members: spouse Smoking Status: Never smoker alcohol intake: never substance use type: does not use ROS ROS ED Constitutional Constitutional ED: Denies chills or fever(s) Eyes Eyes: Denies blurry vision or change in vision ENT ENT ED: Denies sore throat Cardiovascular Cardiovascular: Denies chest pain Respiratory/Chest Respiratory/Chest: Denies cough or dyspnea Gastrointestinal Gastrointestinal: Reports abdominal pain, nausea and vomiting; Denies diarrhea Genitourinary Genitourinary ED: Denies dysuria Musculoskeletal Musculoskeletal: Denies back pain Integumentary Denies rash Neurologic Neurologic: Denies headache(s) Hematologic/Lymphatic Hematologic/Lymphatic: Denies easy bleeding or easy bruising EXAM Physical Exam Const Vital Signs: 06/24/24 22:35 06/25/24 00:20 06/25/24 01:12 Temperature 98.3 F 97.8 F Temperature Source Temporal Pulse Rate 100 101 H 95 Respiratory Rate 18 18 16 Blood Pressure 166/106 H 160/84 H Blood Pressure Mean 126 109 Pulse Ox 98 93 99 Oxygen Delivery Method Room Air Room Air Positive well nourished, well developed and obese General Appearance ED: well developed; Negative for pallor Nutritional Appearance: obese HEENT HEENT Narrative: Normocephalic atraumatic Eyes PERRL and EOMs intact bilaterally General Eye ED: Negative for scleral icterus Neck supple Resp normal respiratory effort and clear to auscultation bilaterally Cardio regular rate and regular rhythm Rate: other Other Details: Regular rate and rhythm without murmurs rubs or gallop Radial and carotid pulses are equal and symmetric GI non-distended and no masses GI Narrative: Abdomen is obese soft and nondistended with slightly hyperactive bowel sounds. There is pain on palpation in the midepigastric to left upper quadrant region without voluntary guarding or rigidity. No pulsatile mass or fluid wave. No increased tympany. Auscultation: hyperactive bowel sounds Palpation: soft Back/Spine no CVA tenderness Extremity normal to inspection Neuro oriented x3, CN's II-XII intact bilaterally and no sensory deficits noted Sensorium / Orientation: alert Motor Exam: strength 5/5 throughout Psych mental status grossly normal Skin no rashes or lesions noted and no wounds Skin Narrative: No overlying soft tissue changes to suggest trauma or infection General Skin Exam: Negative for jaundice or pallor MDM MDM MDM Narrative Medical decision making narrative: Patient arrived to the ER hypertensive but has a past medical history of this. He reported upper abdominal discomfort after eating chicken wings. Differential diagnosis is for gastritis versus pancreatitis versus biliary colic versus acute cholecystitis. There is also concern for potential gastric perforation or atypical presentation for bowel obstruction. Secondary to this basic labs and a acute abdominal x-ray were obtained. Labs showed leukocytosis with white count of 13 but chart review reveals this is patient's baseline. Otherwise lipase is normal going against pancreatitis and liver enzymes are also normal going against biliary colic or acute cholecystitis. The patient was given IV fluids as well as Protonix and a GI cocktail and pain medication. On reevaluation he has had improvement of his symptoms and his abdomen remains soft and nonsurgical. Therefore at this time as patient had a CT scan roughly 1 month ago that did not reveal any signs of acute infection or obstruction or perforation in his exam today does not show signs of this as well I do not feel there is need for further workup in the ER. By physical exam he does not have any signs of incarceration as CT scan for 1 month ago shows known inguinal hernias and umbilical hernia. Patient can be discharged symptomatic medication and follow-up with his family doctor on an outpatient basis History & Record Review Discussion w/independent historian: Patient Lab Data Attestation: I reviewed the patient's lab results. Labs: Laboratory Results - last 24 hr 06/24/24 23:28 WBC 13.0 H RBC 5.07 Hgb 13.5 Hct 41.3 MCV 81.5 MCH 26.6 L MCHC 32.7 RDW Std Deviation 40.5 RDW Coeff of Mirlande 13.8 Plt Count 335 MPV 9.3 Immature Gran % (Auto) 0.400 Neut % (Auto) 60.6 Lymph % (Auto) 29.5 Steele % (Auto) 5.4 Eos % (Auto) 3.4 Baso % (Auto) 0.7 Absolute Neuts (auto) 7.9 H Absolute Lymphs (auto) 3.82 Nucleated RBC % 0 Sodium 136 Potassium 4.1 Chloride 103 Carbon Dioxide 20.0 L Anion Gap 13 BUN 14 Creatinine 0.93 Estim Creat Clear Calc 139.12 Est GFR (MDRD) Non-Af 103 BUN/Creatinine Ratio 15.2 Glucose 114 H Calcium 8.9 Total Bilirubin 0.27 Direct Bilirubin < 0.08 AST 33 ALT 44 Alkaline Phosphatase 124 Total Protein 7.2 Albumin 3.8 Globulin 3.4 Lipase 22 Radiography Diagnostic Testing: Clinical Impression(s) from Imaging Studies Acute Abdomen Series 06/24/24 23:35 IMPRESSION: NEGATIVE ACUTE ABDOMINAL SERIES Reading Location: [facility] Acute abdominal series with 1 view chest as interpreted by the emergency medicine physician reveals a nonspecific nonobstructive bowel gas pattern without free air and chest x-ray component reveals no acute infiltrate or pneumothorax Discharge Plan Triage Chief Complaint: Abd Pain ED Provider: Marv Pack Dx/Rx/DC Orders Clinical Impression: Gastritis, Acute upper abdominal pain, Hypertension, Morbid obesity Instructions: Abdominal Pain, ED Gastritis (Adult) Prescriptions: New sucralfate [Carafate] 1 gram tablet 1 g PO TID 30 Days Qty: 90 0RF pantoprazole [Protonix] 40 mg tablet,delayed release (DR/EC) 40 mg PO DAILY 30 Days Qty: 30 0RF oxycodone 5 mg tablet 5 mg PO Q6H PRN (Reason: pain) 3 Days Qty: 12 0RF No Action ondansetron HCl 4 mg tablet 4 mg PO Q6H PRN (Reason: nausea and vomiting) Patient Comments: [NO ORIGINAL SIG] sertraline 25 mg tablet 25 mg PO DAILY sucralfate 1 gram Tablet 1 g PO TIDAC 30 Days Qty: 90 0RF pantoprazole [Protonix] 40 mg tablet,delayed release (DR/EC) 40 mg PO BID 30 Days Qty: 60 3RF oxycodone-acetaminophen 5-325 mg tablet 1 tab PO Q6H PRN PRN (Reason: Pain) 3 Days Qty: 12 0RF docusate sodium [Colace] 100 mg capsule 100 mg PO BID Qty: 60 0RF promethazine 25 mg tablet 25 mg PO Q6H PRN (Reason: nausea and vomiting) Qty: 10 0RF Primary Care Provider: KATHRYN VIGIL Referrals: KATHRYN VIGIL CRNP [Primary Care Provider] - Activity Restrictions/Additional Instructions: Please take the prescribed medication as directed to help control your symptoms and return to the ER should you have any further concerns Print Language: Anguillan Disposition Disposition: Home, Self Care Discharge Date/Time: 06/25/24 01:19
[2024-06-25 01:12] VITALS: BP 160/84; PULSE 95; RESP 16; TEMP 36.6; O2SAT 99
== END 2024-06-25 01:19 | disposition home or self-care (01) ==
PROVIDERS: Emergency Provider Emergency Medicine; PCP Nurse Practitioner Adult Health; Visit Provider Emergency Medicine
DX: K29.70 Gastritis, unspecified, without bleeding (principal); E66.01 Morbid (severe) obesity due to excess calories; I10 Essential (primary) hypertension; R10.10 Upper abdominal pain, unspecified; Z90.49 Acquired absence of other specified parts of digestive tract; I25.2 Old myocardial infarction; Z86.73 Personal history of transient ischemic attack (TIA), and cerebral infarction without residual deficits; F41.9 Anxiety disorder, unspecified; F32.A Depression, unspecified
CPT/HCPCS: 74022; 80048; 80076; 83690; 85025; 96361; 96374; 96375; 99283; A4216

== ENCOUNTER 2024-07-02 03:14 | Observation (INO) | payer MEDICARE, MEDICAID, SELFPAY ==
[2024-07-02] VITALS (8 sets, daily range): BP systolic 115–128; BP diastolic 60–100; PULSE 89–109; RESP 16–20; TEMP 36.5–36.7; O2SAT 94–98; BMI 52.0; BMI 51.5
[2024-07-02] MEDS: 0.9% Normal Saline (1000mL) 1,000 ML 999 ML IV (03:46)
[2024-07-02] MEDS: HYDROmorphone 1 MG/ML Syringe IV (03:46)
[2024-07-02] MEDS: Metoclopramide 10 MG/2 ML Vial IV ×2 (03:46→04:56)
--- NOTE | 2024-07-02 03:50 | RAD_ITS ---
PROCEDURE: ACUTE ABDOMEN INC CHEST 07/02/2024 REASON FOR EXAM: ABD PAIN TECHNIQUE: Single view chest with supine and upright views of the abdomen. COMPARISON: June 24, 2024 FINDINGS: Hardware: None Heart: Cardiomediastinal silhouette is within normal limits. Normal pulmonary vascularity. Lungs: No focal consolidation. Bowel gas: Nonobstructive Free air: No pneumoperitoneum Calcifications: None Bones: No acute fracture. Other: RAD/Acute Abdomen Inc Chest IMPRESSION: Nonobstructive bowel gas pattern Reading Location: [facility]
[2024-07-02] MEDS: Pantoprazole Sodium 40 MG in 0.9% Normal Saline (100mL MB+) 100 ML 330 MG IV (03:52)
[2024-07-02 03:55] LABS: Absolute Lymphocyte Count 3.86 X10^3/uL (0.83-4.51); Basophil# 0.08 X10^3/uL; Basophil% 0.5 % (0-1); Eosinophil# 0.27 X10^3/uL; Eosinophils% 1.7 % (0-5); Hematocrit 41.7 % (40-54); Hemoglobin 13.8 g/dL (13.0-16.5); Lymphocyte # 3.86 X10^3/ul (0.83-4.51); Lymphocyte % 23.7 % (19-41); Mean Corp Hgb Conc 33.1 g/dL (32-36); Mean Corpuscular Volume 81.6 fL (80-94); Mean Platelet Vol. 9.4 fl (6.2-12.0); Monocyte# 1.02 X10^3/uL; Monocyte% 6.3 % (0-10); NRBC Flagged by Analyzer 0 % (0-5); Neutrophil # 10.96 X10^3/uL (2.7-7.7); Neutrophil % 67.3 % (47-70); Platelet Count 375 K/mm3 (150-450); RBC Distribution Width CV 13.4 % (11.6-14.6); RBC Distribution Width SD 39.8 fl (35.1-43.9); Red Blood Count 5.11 M/mm3 (4.6-6.2); White Blood Count 16.3 K/mm3 (4.4-11.0)
--- NOTE | 2024-07-02 04:03 | EX.ED.DYSGE1 ---
HPI History of Present Illness Chief Complaint: Abd Pain Informant: patient and spouse/S.O. Narrative Narrative: Patient is a 49-year-old male with past medical history of diverticulitis requiring colon resection around 2018 as well as hypertension and ulcers. He was seen roughly 1 week ago secondary to abdominal pain. At that time his x-ray revealed no signs of perforation or obstruction and lab work showed mild elevation to his white count but the remainder of his labs are normal and after pain medication he had resolution of symptoms and was discharged home. Patient reports he was doing well and followed up with a general surgeon on an outpatient basis on Friday. Reportedly he received a steroid injection in the upper abdomen where he has had recurrent pain and was advised that he will schedule a EGD for further evaluation of his symptoms. He states this evening he got up to use the bathroom and after doing so developed increasing upper abdominal pain and a bout of vomiting. He states that the pain has not improved since its onset and secondary to this he comes in for evaluation [facility] Medical History History of stroke History of [place] (myocardial infarction) Anxiety and depression Morbid obesity Hypertension Diverticulitis large intestine Home Medications ?Medication ?Instructions ?Recorded ?Last Taken ?Type ondansetron HCl 4 mg tablet 4 mg PO Q6H PRN nausea and vomiting 05/02/24 Unknown History sertraline 25 mg tablet 25 mg PO DAILY 05/02/24 05/02/24 History pantoprazole 40 mg tablet,delayed 40 mg PO BID 30 days #60 tabs 05/03/24 Unknown Rx release (Protonix) sucralfate 1 gram tablet 1 g PO TIDAC 30 days #90 tabs 05/03/24 Unknown Rx docusate sodium 100 mg capsule 100 mg PO BID #60 caps 05/30/24 Unknown Rx (Colace) oxycodone-acetaminophen 5 mg-325 1 tab PO Q6H PRN PRN Pain 3 days 05/30/24 Unknown Rx mg tablet #12 TABLETS promethazine 25 mg tablet 25 mg PO Q6H PRN nausea and 05/30/24 Unknown Rx vomiting #10 tabs oxycodone 5 mg tablet 5 mg PO Q6H PRN pain 3 days #12 06/25/24 Unknown Rx tabs pantoprazole 40 mg tablet,delayed 40 mg PO DAILY 30 days #30 tabs 06/25/24 Unknown Rx release (Protonix) sucralfate 1 gram tablet (Carafate) 1 g PO TID 30 days #90 tabs 06/25/24 Unknown Rx omeprazole 40 mg capsule,delayed 40 mg PO BID 07/02/24 Unknown History release Allergy/AdvReac Type Severity Reaction Status Date / Time morphine Allergy Mild Rash Verified 07/02/24 03:18 acetaminophen (From Vicodin) Allergy Rash Verified 07/02/24 03:18 codeine Allergy Anaphylaxis Verified 07/02/24 03:18 hydrocodone bitartrate (From Allergy Rash Verified 07/02/24 03:18 Vicodin) latex Allergy Swelling Verified 07/02/24 03:18 naproxen Allergy Hives Verified 07/02/24 03:18 ondansetron (From Zofran (as AdvReac Nausea Verified 07/02/24 03:18 hydrochloride)) Family History Mother Cancer Father Brain aneurysm Surgical History History of bowel resection Hx of hand surgery Hx of foot surgery Hx of arthroscopy of right knee History of tonsillectomy and adenoidectomy Hx of cholecystectomy Hx of appendectomy Social History household members: spouse Smoking Status: Never smoker alcohol intake: never substance use type: does not use ROS ROS ED Constitutional Constitutional ED: Denies chills or fever(s) Eyes Eyes: Denies change in vision ENT ENT ED: Denies sore throat Cardiovascular Cardiovascular: Denies chest pain Respiratory/Chest Respiratory/Chest: Denies cough or dyspnea Gastrointestinal Gastrointestinal: Reports abdominal pain, nausea and vomiting; Denies diarrhea Genitourinary Genitourinary ED: Denies dysuria Musculoskeletal Musculoskeletal: Denies back pain Integumentary Denies rash Neurologic Neurologic: Denies headache(s) Hematologic/Lymphatic Hematologic/Lymphatic: Denies easy bleeding or easy bruising EXAM Physical Exam Const Vital Signs: 07/02/24 03:15 07/02/24 05:14 Temperature 98.0 F Temperature Source Oral Pulse Rate 109 H 99 Respiratory Rate 20 H 18 Blood Pressure 127/100 H 128/68 H Blood Pressure Mean 109 88 Pulse Ox 98 95 Oxygen Delivery Method Room Air Room Air Positive well nourished, well developed and obese General Appearance ED: well developed; Negative for pallor Nutritional Appearance: obese HEENT Reports moist mucous membranes HEENT Narrative: No tongue or lip swelling no oral lesions no airway edema or compromise Eyes PERRL and EOMs intact bilaterally General Eye ED: Negative for scleral icterus Neck supple Resp normal respiratory effort and clear to auscultation bilaterally Cardio regular rhythm Rate: tachycardic and other Other Details: Slightly tachycardic rate with regular rhythm Radial and carotid pulses are equal and symmetric GI GI Narrative: Abdomen is soft but slightly distended. Bowel sounds are hypoactive. There is pain with palpation diffusely but greatest in the midepigastric to left upper quadrant region. No increased tympany. No pulsatile mass. No fluid wave. Patient does have a known umbilical hernia but it feels reducible in nature. Auscultation: hypoactive bowel sounds Palpation: soft Back/Spine no CVA tenderness Extremity normal to inspection Neuro oriented x3, CN's II-XII intact bilaterally and no sensory deficits noted Sensorium / Orientation: alert Motor Exam: strength 5/5 throughout Psych Mood & Affect: anxious Skin no rashes or lesions noted and no wounds General Skin Exam: Negative for jaundice or pallor MDM MDM MDM Narrative Medical decision making narrative: Patient arrived to the ER hypertensive and slightly tachycardic but afebrile. He was seen 1 week ago for similar symptoms and workup revealed no obvious findings. He also reports he was just seen by the general surgeon on Friday and is reportedly being set up for a EGD to further assess the cause of his recurrent belly pain. With the return of pain in the midepigastric to left upper quadrant region there is concern for gastritis versus gastric perforation versus colitis versus pancreatitis versus incarcerated hernia versus obstruction. The skin exam did not show any erythema or warmth or signs of cellulitis or abscess. With concern for underlying intestinal pathology basic blood work and with an acute abdominal series x-ray was obtained. X-ray revealed no signs of obstruction or perforation. Patient's blood work revealed leukocytosis at 16 which is elevated from the previous week and he also has left shift with his absolute neutrophil count elevated at 11. Based on the increased white blood cell count and left shift I did elect to perform a CT scan and add a lactic acid and procalcitonin values to check for systemic infection. The patient CT scan revealed no signs of perforation or obstruction but did note changes along the sigmoid colon concerning for diverticulitis. Secondary to this he was started on Zosyn. He has received IV Protonix as well as IV Reglan to cover for potential gastritis/ulcer versus gastroparesis and these medications did minimal for pain relief. He was then medicated with IV Dilaudid as well as IV fentanyl. After receiving these medications he did have improvement of his pain and with this his vitals improved. However he still reported significant pain on repeat evaluation. As the patient is not hypotensive tachycardic or febrile and his lactic acid is normal he does not qualify as sepsis and without abscess or perforation this is uncomplicated diverticulitis. However because of the recurrent nature of his symptoms and the fact he has had previous colonic resection and is complaining of persistent pain I do not feel that he would do well at home on oral antibiotics. Therefore discussed the case with the hospitalist who agrees to accept the patient for continued pain control and IV antibiotics. This plan of care was discussed with the patient who is agreeable to it and therefore he will be admitted for further care History & Record Review Discussion w/independent historian: Patient and Significant other Lab Data Attestation: I reviewed the patient's lab results. Labs: Laboratory Results - last 24 hr 07/02/24 07/02/24 03:40 04:41 WBC 16.3 H RBC 5.11 Hgb 13.8 Hct 41.7 MCV 81.6 MCH 27.0 MCHC 33.1 RDW Std Deviation 39.8 RDW Coeff of Mirlande 13.4 Plt Count 375 MPV 9.4 Immature Gran % (Auto) 0.500 Neut % (Auto) 67.3 Lymph % (Auto) 23.7 [place] % (Auto) 6.3 Eos % (Auto) 1.7 Baso % (Auto) 0.5 Absolute Neuts (auto) 11.0 H Absolute Lymphs (auto) 3.86 Nucleated RBC % 0 Sodium 138 Potassium 3.9 Chloride 99 Carbon Dioxide 24.7 Anion Gap 14 BUN 17 Creatinine 0.97 Estim Creat Clear Calc 132.98 Est GFR (MDRD) Non-Af 97 BUN/Creatinine Ratio 17.0 Glucose 99 Lactic Acid 1.2 Calcium 9.1 Total Bilirubin 0.40 Direct Bilirubin 0.19 AST 18 ALT 23 Alkaline Phosphatase 122 Total Protein 7.7 Albumin 4.1 Globulin 3.5 Lipase 21 Radiography Diagnostic Testing: Clinical Impression(s) from Imaging Studies Acute Abdomen Series 07/02/24 03:50 IMPRESSION: Nonobstructive bowel gas pattern Reading Location: [facility] ER Abdomen/Pelvis CT 07/02/24 04:36 IMPRESSION: *Acute sigmoid colon diverticulitis. *Small fat containing periumbilical hernia. Reading Location: [facility] ER Acute abdominal series with 1 view chest as interpreted by the emergency medicine physician reveals a nonobstructive nonspecific bowel gas pattern without free air to suggest perforation and chest x-ray component reveals no acute infiltrate Management Discussion w/another healthcare provider: Hospitalist Discharge Plan Triage Chief Complaint: Abd Pain ED Provider: Marv Pack Dx/Rx/DC Orders Clinical Impression: Sigmoid diverticulitis, Hypertension, Morbid obesity, Intractable abdominal pain Prescriptions: No Action sucralfate [Carafate] 1 gram tablet 1 g PO TID 30 Days Qty: 90 0RF pantoprazole [Protonix] 40 mg tablet,delayed release (DR/EC) 40 mg PO DAILY 30 Days Qty: 30 0RF oxycodone 5 mg tablet 5 mg PO Q6H PRN (Reason: pain) 3 Days Qty: 12 0RF omeprazole 40 mg capsule,delayed release(DR/EC) 40 mg PO BID ondansetron HCl 4 mg tablet 4 mg PO Q6H PRN (Reason: nausea and vomiting) Patient Comments: [NO ORIGINAL SIG] sertraline 25 mg tablet 25 mg PO DAILY sucralfate 1 gram Tablet 1 g PO TIDAC 30 Days Qty: 90 0RF pantoprazole [Protonix] 40 mg tablet,delayed release (DR/EC) 40 mg PO BID 30 Days Qty: 60 3RF oxycodone-acetaminophen 5-325 mg tablet 1 tab PO Q6H PRN PRN (Reason: Pain) 3 Days Qty: 12 0RF docusate sodium [Colace] 100 mg capsule 100 mg PO BID Qty: 60 0RF promethazine 25 mg tablet 25 mg PO Q6H PRN (Reason: nausea and vomiting) Qty: 10 0RF Primary Care Provider: KATHRYN VIGIL Referrals: KATHRYN VIGIL CRNP [Primary Care Provider] - Print Language: Nepali Disposition Disposition: Acute Care Hospital [facility]
[2024-07-02 04:17] LABS: AST(SGOT) 18 U/L (<=37); Alanine Aminotransfer ALT/SGPT 23 U/L (<=46); Albumin, Serum 4.1 g/dL (3.5-5.0); Alkaline Phosphatase 122 U/L (40-129); Anion Gap 14 (5-15); BUN 17 mg/dL (4-19); Bilirubin, Direct 0.19 mg/dL (0.00-0.30); Calcium,Total 9.1 mg/dL (7.6-11.0); Carbon Dioxide 24.7 mmol/L (21.0-32.0); Chloride 99 mmol/L (98-108); Creatinine, Serum 0.97 mg/dL (0.70-1.20); EST Glomerular Filtration Rate 97 (>60); Estimated Creatinine Clearance 132.98 ml/min (50-250); Globulin 3.5 g/dL (2.2-4.2); Glucose 99 mg/dL (70-99); Lipase 21 U/L (13-75); Potassium 3.9 mmol/L (3.3-5.1); Protein, Total 7.7 g/dL (5.9-8.4); Sodium Level 138 mmol/L (133-145)
--- NOTE | 2024-07-02 04:36 | CT_ITS ---
PROCEDURE: ABDOMEN/PELVIS W IV CONT ONLY 07/02/2024 REASON FOR EXAM: ABD PAIN TECHNIQUE: Abdomen and pelvis CT with intravenous contrast. Coronal and Sagittal reconstruction series were provided. PATIENT PREPARATION: Per protocol ORAL CONTRAST TYPE: None. AMOUNT: mL CONTRAST: Isovue 370 VOLUME: 100 ML 18 gauge IV One or more dose reduction techniques were used (e.g., Automated exposure control, adjustment of the mA and/or kV according to patient size, use of iterative reconstruction technique. RADIATION DOSE SUMMARY: CTDlvol: 24.2 mGy DLP: 1343.0 mGycm COMPARISON: None available FINDINGS: Lung bases: Unremarkable Liver: Unremarkable Gallbladder: Status post cholecystectomy. Spleen: Unremarkable Pancreas: Unremarkable Adrenals: Unremarkable Kidneys: Kidneys are normal in size and configuration. No hydronephrosis. Bladder: No focal bladder wall thickening. Reproductive Organs: Unremarkable Bowel: Short-segment mural thickening within the sigmoid colon on background diverticulosis with adjacent inflammatory changes, likely representing an acute diverticulitis. Appendix: Not visualized Lymph nodes: No lymphadenopathy Vasculature: Patent vasculature Peritoneum / Retroperitoneum: Unremarkable Bones: No aggressive osseous lesions. No acute fractures. CT/Abdomen/Pelvis W IV Cont ONLY IMPRESSION: *Acute sigmoid colon diverticulitis. *Small fat containing periumbilical hernia. Reading Location: [facility] [address]
[2024-07-02] MEDS: fentaNYL 100 MCG/2 ML Ampul 50 MCG IV ×2 (04:56→06:13)
[2024-07-02 05:14] LABS: Lactic Acid 1.2 mmol/L (0.0-2.0)
--- NOTE | 2024-07-02 05:33 | PCM.HP.STD ---
[facility] - General General Date of Admission: 07/02/24 Date of Service: 07/02/24 Chief Complaint: Abdominal Pain with Nausea and Vomiting. HPI Narrative BARRETT LOPEZ, is a 49 M with a past medical history of essential hypertension; currently not on treatment, super-morbid obesity; with BMI of 52 this admission, history of WI, history of CVA, GERD; with history of gastritis and PUD on pantoprazole BID and sucralfate TID followed by Dr. White of gastroenterology, history of mesenteric adenitis, history of diverticulitis; s/p partial bowel resection (~2018), history of cholecystectomy, history of appendectomy, history of foot surgery, history of hand surgery, depression with anxiety; on sertraline and OA; with history of MCL sprain of the Right knee; s/p arthroscopy plus chronic back pain who presents to [facility] ER complaining of abdominal pain, nausea and vomiting. Mr. Lopez reports his symptoms began approximately 1 week prior to admission with a gradual-onset of increasingly intense, sharp, stabbing intermittently severe abdominal pain that is mainly focused in his mid epigastric area and LUQ with subsequent nausea and 1 episode of bilious emesis. He actually came to the ER on June 25, 2024 and was worked up with abdominal x-rays revealing no acute pathologic changes with mild Leukocytosis of 13K and otherwise unremarkable laboratory studies and he was discharged home to follow-up with his primary care physician. He returns tonight complaining of worsening of his previous symptoms. He denies associated fever, chills, changes in vision, runny nose, sore throat, chest pain, shortness of breath, dysuria, hematuria, arthralgias, myalgias, headache or rash. In the ER he was noted to have leukocytosis of 16.3 K present on admission with corresponding CT evidence of Acute Sigmoid Diverticulitis along with an incidentally noted small fat-containing periumbilical hernia and he was then admitted to the general medical floor for ongoing care for a stay that is expected to extend beyond 2 midnights. [facility] Medical History (Updated 07/02/24 @ 06:[address] Margarito Mercado, DO) History of stroke History of WI (myocardial infarction) Anxiety and depression Morbid obesity Hypertension Diverticulitis large intestine Home Medications ?Medication ?Instructions ?Recorded ?Last Taken ?Type ondansetron HCl 4 mg tablet 4 mg PO Q6H PRN nausea and vomiting 05/02/24 Unknown History sertraline 25 mg tablet 25 mg PO DAILY 05/02/24 05/02/24 History pantoprazole 40 mg tablet,delayed 40 mg PO BID 30 days #60 tabs 05/03/24 Unknown Rx release (Protonix) sucralfate 1 gram tablet 1 g PO TIDAC 30 days #90 tabs 05/03/24 Unknown Rx docusate sodium 100 mg capsule 100 mg PO BID #60 caps 05/30/24 Unknown Rx (Colace) oxycodone-acetaminophen 5 mg-325 1 tab PO Q6H PRN PRN Pain 3 days 05/30/24 Unknown Rx mg tablet #12 TABLETS promethazine 25 mg tablet 25 mg PO Q6H PRN nausea and 05/30/24 Unknown Rx vomiting #10 tabs oxycodone 5 mg tablet 5 mg PO Q6H PRN pain 3 days #12 06/25/24 Unknown Rx tabs pantoprazole 40 mg tablet,delayed 40 mg PO DAILY 30 days #30 tabs 06/25/24 Unknown Rx release (Protonix) sucralfate 1 gram tablet (Carafate) 1 g PO TID 30 days #90 tabs 06/25/24 Unknown Rx omeprazole 40 mg capsule,delayed 40 mg PO BID 07/02/24 Unknown History release Allergy/AdvReac Type Severity Reaction Status Date / Time morphine Allergy Mild Rash Verified 07/02/24 03:18 acetaminophen (From Vicodin) Allergy Rash Verified 07/02/24 03:18 codeine Allergy Anaphylaxis Verified 07/02/24 03:18 hydrocodone bitartrate (From Allergy Rash Verified 07/02/24 03:18 Vicodin) latex Allergy Swelling Verified 07/02/24 03:18 naproxen Allergy Hives Verified 07/02/24 03:18 ondansetron (From Zofran (as AdvReac Nausea Verified 07/02/24 03:18 hydrochloride)) Family History Mother Cancer Father Brain aneurysm Surgical History (Updated 07/02/24 @ 06:[address] Margarito Mercado DO) History of bowel resection Hx of hand surgery Hx of foot surgery Hx of arthroscopy of right knee History of tonsillectomy and adenoidectomy Hx of cholecystectomy Hx of appendectomy Social History household members: spouse Smoking Status: Never smoker alcohol intake: never substance use type: does not use ROS ROS Narrative Review of Systems: Constitutional: Patient denies fever or chills. Eyes: Patient denies change in vision or discharge from eyes. ENT: Patient denies runny nose, sore throat or ear pain. Resp: Patient denies shortness of breath or cough. CV: Patient denies chest pain, palpitations, heart racing or lower extremity edema. GI: Patient admits to abdominal pain with nausea, vomiting and bilious emesis as per HPI. He denies diarrhea. : Patient denies dysuria, hematuria or urinary frequency. MSK: Patient denies arthralgias or myalgias. Skin: Patient denies rash, abscess, wounds or jaundice. Psych: Patient denies symptoms of uncontrolled depression or anxiety. Neuro: Patient denies headache, paresthesias or focal neurologic deficits. Allergy: Patient denies lip swelling, tongue swelling or urticaria. Hematology: Patient denies easy bleeding or easy bruisability. Endocrinology: Patient denies polyuria, polydipsia, polyphagia or heat/cold intolerance. 14 point ROS otherwise negative except for positives noted above in HPI. Vital Signs Vital Signs Vital Signs: 07/02/24 03:15 07/02/24 05:14 Temperature 98.0 F Temperature Source Oral Pulse Rate 109 H 99 Respiratory Rate 20 H 18 Blood Pressure 127/100 H 128/68 H Blood Pressure Mean 109 88 Pulse Ox 98 95 Oxygen Delivery Method Room Air Room Air Weight Weight: 331 lb 12.731 oz Body Mass Index (BMI) 52.0 Physical Exam Const alert and oriented x3 Constitutional Narrative: Mild distress noted and morbidly obese patient. General Appearance: cooperative HEENT normocephalic, head/scalp atraumatic and hearing grossly normal bilaterally HEENT Narrative: Mucous membranes dry. Eyes PERRL and EOMs intact bilaterally Neck no lymphadenopathy and supple Resp normal respiratory effort, no retractions, no use of accessory muscles and clear to auscultation bilaterally Cardio regular rate and regular rhythm GI normal to inspection, nondistended, normoactive bowel sounds and soft to palpation GI Narrative: Patient noted to be tender in epigastrium and Left-side of his abdomen with no guarding or rebound. Auscultation: hypoactive bowel sounds Extremity normal to inspection, full ROM and no clubbing, cyanosis or edema Skin Skin Narrative: Patient has evidence of rash, abscess, wounds or jaundice. Neuro oriented x3, CN's II-XII intact bilaterally, moves all extremities and no focal motor deficits Sensorium / Orientation: awake, alert, oriented to person, oriented to place and oriented to time Speech: speech normal Psych affect normal Results Medical Records Data Attestation: I reviewed the patient's medical records Lab / Micro Data Attestation: I reviewed the patient's lab results. 07/02/24 03:40 07/02/24 03:40 Labs: Laboratory Results - last 24 hr 07/02/24 03:40: WBC 16.3 H, RBC 5.11, Hgb 13.8, Hct 41.7, MCV 81.6, MCH 27.0, MCHC 33.1, RDW Std Deviation 39.8, RDW Coeff of Mirlande 13.4, Plt Count 375, MPV 9.4, Immature Gran % (Auto) 0.500, Neut % (Auto) 67.3, Lymph % (Auto) 23.7, [place] % (Auto) 6.3, Eos % (Auto) 1.7, Baso % (Auto) 0.5, Absolute Neuts (auto) 11.0 H, Absolute Lymphs (auto) 3.86, Nucleated RBC % 0, Sodium 138, Potassium 3.9, Chloride 99, Carbon Dioxide 24.7, Anion Gap 14, BUN 17, Creatinine 0.97, Estim Creat Clear Calc 132.98, Est GFR (MDRD) Non-Af 97, BUN/Creatinine Ratio 17.0, Glucose 99, Calcium 9.1, Total Bilirubin 0.40, Direct Bilirubin 0.19, AST 18, ALT 23, Alkaline Phosphatase 122, Total Protein 7.7, Albumin 4.1, Globulin 3.5, Lipase 21 07/02/24 04:41: Lactic Acid 1.2 Imaging Radiology Impression Acute Abdomen Series 07/02/24 03:50 IMPRESSION: Nonobstructive bowel gas pattern Reading Location: [facility] Abdomen/Pelvis CT 07/02/24 04:36 IMPRESSION: *Acute sigmoid colon diverticulitis. *Small fat containing periumbilical hernia. Reading Location: [facility] Assessment & Plan Assessment/Plan (1) Sigmoid diverticulitis: (2) Intractable abdominal pain: (3) Nausea and vomiting: QUALIFIERS: Vomiting type: unspecified Qualified Code(s): R11.2 - Nausea with vomiting, unspecified (4) Periumbilical hernia: (5) History of diverticulitis: (6) History of bowel resection: (7) GERD (gastroesophageal reflux disease): QUALIFIERS: Esophagitis presence: esophagitis presence not specified Qualified Code(s): K21.9 - Gastro-esophageal reflux disease without esophagitis (8) Morbid obesity with BMI of 50.0-59.9, adult: PLAN: Plan 1. CT evidence of Acute Sigmoid Diverticulitis with Leukocytosis of 16.3 K present on admission with severe Abdominal Pain, Nausea, Vomiting with bilious emesis - Admit to general medical floor. Continue empiric IV piperacillin-tazobactam begun in ER. Keep n.p.o. and resume IV pantoprazole for GI prophylaxis. Give IV metoclopramide 3 times daily for nausea and vomiting given patient's listed allergy to ondansetron. Place scopolamine patch 1.5 mg topical every 72 hours. Give ketorolac IV as needed for [id number] (level 1-5/10) pain or fever given patient's listed allergy to acetaminophen. Give IV hydromorphone as needed for severe (level 6-10/10) pain. 2. Small fat-containing periumbilical hernia incidentally noted on CT this admission complicating #1 - Stable with no need for surgical intervention at this time. 3. History of diverticulitis; s/p partial bowel resection (~2019) compounding #1 & #2 - Noted. 4. GERD; with history of gastritis and PUD on pantoprazole BID and sucralfate TID followed by Dr. White of gastroenterology adding to the medical complexity of #1 - #3 - Continue IV pantoprazole as outlined in #1. Patient will likely need outpatient consultation with EGD after he completes treatment this admission. 5. Super-morbid obesity; with BMI of 52 this admission adding to the burden of disease outlined from #1 - #4 - Weight loss will be recommended. Check TSH. This complicates his case and may hamper recovery. 6. Essential hypertension; currently not on treatment - Give hydralazine IV as needed for systolic blood pressure greater than 160 mmHg. 7. History of WI - Patient reported and noted. 8. History of CVA - Noted with no signs of any residual deficits. 9. History of mesenteric adenitis - Noted. 10. History of cholecystectomy - Noted. 11. History of appendectomy - Noted. 12. History of foot surgery - Noted. 13. History of hand surgery - Noted. 14. Depression with anxiety; on sertraline - Maintain current regimen. 15. OA; with history of MCL sprain of the Right knee; s/p arthroscopy plus chronic back pain - We we will follow pain regimen and scale as outlined in #1. 16. DVT prophylaxis - Enoxaparin 40 mg SQ twice daily plus SCD's. Total time: Approximately (but not less than) 75 minutes. Charges/Coding Visit Charges Inpatient E&M: 32723 Init Hosp L3
[2024-07-02] MEDS: Piperacil/Tazobactam 3.375 GM in 0.9% Normal Saline (50mL MB+) 50 ML IV ×2 (05:34→12:55)
[2024-07-02 05:40] LABS: Procalcitonin 0.08 ng/mL (<=0.10)
[2024-07-02] MEDS: Scopolamine 1mg/72hr Patch 1 PATCH TD (07:43)
[2024-07-02] MEDS: 0.9% Normal Saline (1000mL) 1,000 ML 125 ML IV (07:44)
[2024-07-02] MEDS: HYDROmorphone 0.5 MG/0.5 ML SYRINGE IV ×2 (07:44→12:50)
--- NOTE | 2024-07-02 07:50 | PN.HOSP_ITS ---
Reason for Visit Reason for Visit: Diagnoses Morbid (severe) obesity due to excess calories (07/02/24) Gastro-esophageal reflux disease without esophagitis (07/02/24) Umbilical hernia without obstruction or gangrene (07/02/24) Diverticulitis of large intestine without perforation or abscess without bleeding (07/02/24) Unspecified abdominal pain (07/02/24) Nausea with vomiting, unspecified (07/02/24) Body mass index [BMI] 50.0-59.9, adult (07/02/24) Personal history of other diseases of the digestive system (07/02/24) Acquired absence of other specified parts of digestive tract (07/02/24) Subjective Subjective Still with significant abdominal pain. Tolerated jello. Objective Data Objective Data Vital Signs: Vital Signs Temp Pulse Resp BP Pulse Ox O2 Del Method 36.5 C L 89 16 115/60 95 Room Air 07/02/24 07:32 07/02/24 07:32 07/02/24 07:32 07/02/24 07:32 07/02/24 07:32 07/02/24 07:32 Oxygen Delivery Method Room Air Weight: 149.096 kg Body Mass Index (BMI) 51.5 Intake & Output: Intake and Output for Last 24 Hours 06/30/24 07/01/24 07/02/24 23:59 23:59 23:59 Intake Total 1160 / 1160 Balance 1160 / 1160 Lab / Micro Data 07/02/24 03:40 07/02/24 03:40 Labs: Laboratory Results - last 24 hr 07/02/24 03:40: WBC 16.3 H, RBC 5.11, Hgb 13.8, Hct 41.7, MCV 81.6, MCH 27.0, MCHC 33.1, RDW Std Deviation 39.8, RDW Coeff of Mirlande 13.4, Plt Count 375, MPV 9.4, Immature Gran % (Auto) 0.500, Neut % (Auto) 67.3, Lymph % (Auto) 23.7, [place] % (Auto) 6.3, Eos % (Auto) 1.7, Baso % (Auto) 0.5, Absolute Neuts (auto) 11.0 H , Absolute Lymphs (auto) 3.86, Nucleated RBC % 0, Sodium 138, Potassium 3.9, Chloride 99, Carbon Dioxide 24.7, Anion Gap 14, BUN 17, Creatinine 0.97, Estim Creat Clear Calc 132.98, Est GFR (MDRD) Non-Af 97, BUN/Creatinine Ratio 17.0, Glucose 99, Calcium 9.1, Magnesium 2.0, Total Bilirubin 0.40, Direct Bilirubin 0.19, AST 18, ALT 23, Alkaline Phosphatase 122, Total Protein 7.7, Albumin 4.1, Globulin 3.5, Lipase 21, Procalcitonin 0.08, TSH 2.090 07/02/24 04:41: Lactic Acid 1.2 Radiography Diagnostic Testing: Radiology Impression Acute Abdomen Series 07/02/24 03:50 IMPRESSION: Nonobstructive bowel gas pattern Reading Location: [facility] Abdomen/Pelvis CT 07/02/24 04:36 IMPRESSION: *Acute sigmoid colon diverticulitis. *Small fat containing periumbilical hernia. Reading Location: [facility] Physical Exam Const alert Constitutional Narrative: non-toxic. afebrile. HEENT head/scalp atraumatic GI GI Narrative: obese. Soft. TTP in LLQ. No rebound tenderness. no guarding. Assessment & Plan Assessment/Plan (1) Sigmoid diverticulitis: PLAN: on pip/tazo tolerated CLD, advance to transitional. If tolerates transitional diet, then would dc home to complete abx. PLAN: Plan VTE prophylaxis: LMWH Charges/Coding Visit Charges Inpatient E&M: 28554 [facility] Hosp L1
[2024-07-02] MEDS: Enoxaparin 40 MG/0.4 ML Syringe SC (08:06)
[2024-07-02] MEDS: Sertraline 50 MG Tablet 25 MG PO (08:06)
--- NOTE | 2024-07-02 10:28 | CASEMGMT ---
Addendum entered by Jadyn Vallejo 07/02/24 11:30: Other specialist: JANE Andersen Original Note: YANIRA SANON Assessment: Face to Face with pt for initial transition planning/care coordination assessment. YANIRA SANON introduced self and role at [facility], pt voices understanding and consents to assessment. Pt is A&O x4 and answers all questions appropriately at this time. Pt sitting up in bed in no distress. Care providers, pharmacy, and demographics verified/updated. Admitting Dx: acute sigmoid diverticulitis with abd pain, N/V/D Strata Score: 3 PCP:Ivet Specialists:Friend, GI Preferred Pharmacy: [facility] Insurance: [facility], [employer] Prescription Benefit: yes LNOK: Pamela Rasmussen, sig other; Bill Armandoy, brother Living Arrangements: Pt lives with sig other and cousin in a two story home with no steps to enter. Pt reports he is I in ADLs and denies concerns at home. Transportation: Pt drives self and denies concerns with transportation. DME:Denies HHC/SNF: Denies hx of Pt states no concerns with going home at time of dc. Pt states no further concerns/needs. CM to follow. Advised pt to ask CM if any further questions/concerns/needs arise, voices understanding. Pt Goal: Home Plan: Home Lindsay DOYLE CM Handoff given to YANIRA SANON MS3
[2024-07-02] MEDS: Sucralfate 1 GM Tablet PO (11:10)
--- NOTE | 2024-07-02 11:12 | NURSING ---
This RN aware of vital Signs taken by Aylin Butt this Morning.
[2024-07-02] MEDS: Metoclopramide 10 MG/2 ML Vial 5 MG IV (12:51)
--- NOTE | 2024-07-02 14:25 | CHAPLAIN ---
Type of Pastoral Visit _x__ Initial Visit ___ Follow-up Visit ___ On-call Visit ___ General Patient Visit ___ Spiritual Assessment ___ Family Conference ___ Bereavement ___ Rapid Response ___ Code Blue ___ Other (describe below) Pastoral Care Referral From _x__ Patient ___ Family ___ Nurse ___ Physician ___ Screener And Blender Operator ___ Protection Analyst ___ Other (describe below) Sacrament/Intervention _x__ Active listening ___ Anointing ___ Mosque ___ Bereavement ___ Communion _x__ [place] exploration ___ ___ Life review _x_ Prayer ___ Reconciliation ___ Sacrament of Sick _x__ Supportive presence ___ Wedding ___ Other (describe below) Pastoral Comments patient is very welcoming and talkative about his life, his chelo in God, 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
--- NOTE | 2024-07-02 14:57 | PCM.DC.SUM ---
Providers Date of Admission: 07/02/24 Primary Care Physician: ALCIRA COLBERT Reason For Visit: ACUTE SIGMOID DIVERTICULITIS W/ ABD PAIN, N/V/D/ Diagnosis Discharge Diagnosis (1) Sigmoid diverticulitis: Status: Acute Code(s): K57.32 - Diverticulitis of large intestine without perforation or abscess without bleeding Plan: on pip/tazo tolerated CLD, advance to transitional. If tolerates transitional diet, then would dc home to complete abx. Discharge with cipro and metronidazole. Pain control. Antiemetics. Plan VTE prophylaxis: LMWH Medications at Discharge Home Medications sertraline 25 mg tablet 25 mg PO DAILY 05/02/24 pantoprazole 40 mg tablet,delayed release (Protonix) 40 mg PO BID 30 days #60 tabs 05/03/24 sucralfate 1 gram tablet 1 g PO TIDAC 30 days #90 tabs 05/03/24 docusate sodium 100 mg capsule (Colace) 100 mg PO BID #60 caps 05/30/24 ciprofloxacin HCl 500 mg tablet 500 mg PO BID #14 tabs 07/02/24 metronidazole 500 mg tablet 500 mg PO Q8H #21 tabs 07/02/24 omeprazole 40 mg capsule,delayed release 40 mg PO BID 07/02/24 ondansetron 8 mg disintegrating tablet 8 mg PO Q8H PRN nausea and vomiting #14 tabs 07/02/24 oxycodone 5 mg capsule 5 mg PO Q6H PRN pain (scale score 7-10) 3 days #12 caps 07/02/24 Hospital Course Operations None Procedures None Summary of Care Provided Minutes Spent on Discharge: 32 Hospital Course: Patient presents with diverticulitis. CAT scan showed acute sigmoid diverticulitis. Patient complained of severe abdominal pain but he had no rebound or any guarding. Clinically patient seem to be doing well despite his complaints of severe abdominal pain. He was able to eat without any issues though he has self-reported vomiting but that was not witnessed. Reassurance provided to the patient and will be discharged with 7-day course of ciprofloxacin and metronidazole as well as pain control and antiemetics. Weight / BMI Weight Weight: 149.096 kg Body Mass Index (BMI) 51.5 ABG / Lab / Microbiology Data 07/02/24 03:40 07/02/24 03:40 Laboratory: Laboratory Results - last 24 hr 07/02/24 03:40: WBC 16.3 H, RBC 5.11, Hgb 13.8, Hct 41.7, MCV 81.6, MCH 27.0, MCHC 33.1, RDW Std Deviation 39.8, RDW Coeff of Mirlande 13.4, Plt Count 375, MPV 9.4, Immature Gran % (Auto) 0.500, Neut % (Auto) 67.3, Lymph % (Auto) 23.7, [place] % (Auto) 6.3, Eos % (Auto) 1.7, Baso % (Auto) 0.5, Absolute Neuts (auto) 11.0 H, Absolute Lymphs (auto) 3.86, Nucleated RBC % 0, Sodium 138, Potassium 3.9, Chloride 99, Carbon Dioxide 24.7, Anion Gap 14, BUN 17, Creatinine 0.97, Estim Creat Clear Calc 132.98, Est GFR (MDRD) Non-Af 97, BUN/Creatinine Ratio 17.0, Glucose 99, Calcium 9.1, Magnesium 2.0, Total Bilirubin 0.40, Direct Bilirubin 0.19, AST 18, ALT 23, Alkaline Phosphatase 122, Total Protein 7.7, Albumin 4.1, Globulin 3.5, Lipase 21, Procalcitonin 0.08, TSH 2.090 07/02/24 04:41: Lactic Acid 1.2 Radiography Diagnostic Testing: Radiology Impression Acute Abdomen Series 07/02/24 03:50 IMPRESSION: Nonobstructive bowel gas pattern Reading Location: [facility] Abdomen/Pelvis CT 07/02/24 04:36 IMPRESSION: *Acute sigmoid colon diverticulitis. *Small fat containing periumbilical hernia. Reading Location: [facility] D/C Instructions Discharge Diet: - (bland, soft diet. Advance as tolerated. ) DC O2, CPAP, BIPAP Needs Home O2 Discharge instructions: No Meaningful Use Info Meaningful Use Meaningful Use Diagnoses (Choose all that apply): None applicable Ischemic Stroke Statin Dosing Therapy Reference: STATIN DOSE THERAPY REFERENCE: * Patients > 75 years receive moderate or high dose statin therapy. * Patients 75 years or YOUNGER should receive HIGH intensity statin dose unless contraindicated. You will be required to document reason for non-treatment if statin daily dose does not meet guidelines. HIGH DOSE STATIN THERAPY DAILY Atorvastatin > than or = to 40 mg Rosuvastatin > than or = to 20 mg Amlodipine + Atorvastatin > than or = to 2.5/40 mg Ezetimibe + Simvastatin 10/80 mg Simvastatin 80mg Discharge Plan Admission Admit Date/Time: 07/02/24 06:06 Primary Reason for Your Visit: diverticulitis Attending Provider: Patrick Peng Primary Care Provider: KATHRYN VIGIL Consulting Providers: Margarito Mercado Instructions Additional Instructions / Restrictions: You have recurrent diverticulitis, but, fortunately, uncomplicated. Take antibiotics as instructed. Do not drink alcohol while on the antibiotics as it may induce vomiting. Return to the ED if you are feeling worse. Discharge Orders/Prescriptions Prescriptions: New ciprofloxacin HCl 500 mg tablet 500 mg PO BID Qty: 14 0RF metronidazole 500 mg tablet 500 mg PO Q8H Qty: 21 0RF oxycodone 5 mg capsule 5 mg PO Q6H PRN (Reason: pain (scale score 7-10)) 3 Days Qty: 12 0RF ondansetron 8 mg tablet,disintegrating 8 mg PO Q8H PRN (Reason: nausea and vomiting) Qty: 14 0RF Rx Instructions: 1st dose 1-2 hr before radiation Continued omeprazole 40 mg capsule,delayed release(DR/EC) 40 mg PO BID sertraline 25 mg tablet 25 mg PO DAILY sucralfate 1 gram Tablet 1 g PO TIDAC 30 Days Qty: 90 0RF pantoprazole [Protonix] 40 mg tablet,delayed release (DR/EC) 40 mg PO BID 30 Days Qty: 60 3RF docusate sodium [Colace] 100 mg capsule 100 mg PO BID Qty: 60 0RF Referrals / Follow Up: KATHRYN VIGIL CRNP [Primary Care Provider] - Within 2 Weeks Disposition Disposition (needs filled in before D/C Order can be placed): Home, Self Care Charges/Coding Visit Charges Inpatient E&M: 78989 Disch Hosp >30min
--- NOTE | 2024-07-02 15:43 | CASEMGMT ---
YANIRA SANON NOTE: DC order is in. RN CM to room. Pt resting in bed. Introduced self and role. Pt denies having any discharge needs. His will be taking him home. Pt made aware Rx's have been sent to [facility] and states they can pick those up today. [employer] BSN YANIRA CM
--- NOTE | 2024-07-02 16:25 | CASEMGMT ---
The Utilization Management Committee along with the physician has changed pt status from inpatient to outpatient based on Medicare medical necessity requirements. Pt was provided [place] form with explanation. Pt verbalized understanding and signed form. Copy given to patient and original filed in chart.
== END 2024-07-02 17:06 | disposition home or self-care (01) ==
LOC: ED 05:51 → MS3 06:56
PROVIDERS: Admitting Provider Internal Medicine; Emergency Provider Emergency Medicine; PCP Nurse Practitioner Adult Health
DX: K57.32 Diverticulitis of large intestine without perforation or abscess without bleeding (principal); Z68.43 Body mass index [BMI] 50.0-59.9, adult; E66.01 Morbid (severe) obesity due to excess calories; I10 Essential (primary) hypertension; M19.90 Unspecified osteoarthritis, unspecified site; K42.9 Umbilical hernia without obstruction or gangrene; M54.9 Dorsalgia, unspecified; G89.29 Other chronic pain; F32.A Depression, unspecified; F41.9 Anxiety disorder, unspecified; Z79.899 Other long term (current) drug therapy; I25.2 Old myocardial infarction; Z86.73 Personal history of transient ischemic attack (TIA), and cerebral infarction without residual deficits; Z90.49 Acquired absence of other specified parts of digestive tract
CPT/HCPCS: 74022; 74177; 80048; 80076; 83605; 83690; 83735; 84145; 84443; 85025; 94668; 96361; 96365; 96366; 96367; 96375; 96376; 99284; Q9967; A4216

== ENCOUNTER 2024-07-14 13:38 | Emergency (ER) | payer MEDICARE, MEDICAID, SELFPAY ==
[2024-07-14 13:39] VITALS: BP 178/104; PULSE 88; RESP 18; TEMP 36.6; O2SAT 99; BMI 51.4
--- NOTE | 2024-07-14 15:00 | CT_ITS ---
PROCEDURE: ABDOMEN/PELVIS W IV CONT ONLY 07/14/2024 REASON FOR EXAM: LOWER ABDOMINAL PAIN TECHNIQUE: Abdomen and pelvis CT with intravenous contrast. Coronal and Sagittal reconstruction series were provided. One or more dose reduction techniques were used (e.g., Automated exposure control, adjustment of the mA and/or kV according to patient size, use of iterative reconstruction technique. COMPARISON: 07/02/2024 FINDINGS: Lung bases are clear. Liver, spleen, pancreas and adrenal glands are intact. Gallbladder is surgically absent. No significant biliary ductal dilation. Kidneys enhance symmetrically. No suspicious renal mass, calculi or hydronephrosis. Urinary bladder is decompressed which limits its assessment. Postsurgical changes at the distal sigmoid colon. Very subtle haziness surrounding a solitary diverticulum at the mid sigmoid colon (coronal image 82) likely related to minimal acute diverticulitis. No bowel obstruction. No pelvic free fluid. No free air. No abdominal aortic aneurysm or bulky adenopathy. Small fat containing umbilical and bilateral inguinal hernias. No acute osseous abnormality. CT/Abdomen/Pelvis W IV Cont ONLY IMPRESSION: Minimal residual acute uncomplicated diverticulitis of the mid sigmoid colon, s ignificantly improved from recent prior. Reading Location: [facility]
--- NOTE | 2024-07-14 15:20 | EX.ED.DYSGE1 ---
HPI History of Present Illness Chief Complaint: Abd Pain Narrative Narrative: Chief complaint and HPI: 49-year-old male with past medical history of diverticulitis presents for evaluation of left lower quadrant abdominal pain. History taken by patient as well as medical record. Per discharge summary patient was discharged from the hospital on 07/02 for acute uncomplicated sigmoid diverticulitis. He was discharged with a 7-day course of Cipro and Flagyl. Patient states since discharge he has continued to have left lower quadrant abdominal pain. He states that he took all of his antibiotics. He endorses symptomatic fever but states that he has not had a fever via thermometer. He states that he called Dr.'s Nix's office and they recommended him be seen in the emergency department. Associated symptom is nausea and decreased p.o. intake. He denies any chest pain, shortness of breath, dysuria. Review of systems: See HPI Medications: As listed on the chart Allergies: As listed on the chart PFSH: Per chart Vital signs: As listed on the chart. Reviewed. Physical exam: Gen: A&O x3, NAD Head: Normocephalic, atraumatic Eyes: No sclera icterus, conjunctiva clear ENT: Moist mucous membranes Neck: Trachea midline, No JVD CV: RRR, no murmurs, no peripheral edema Resp: Lungs CTA BL, no w/r/c GI: Abd soft, non-distended, left lower quadrant abdominal pain, + voluntary guarding, no rebound or rigidity : No CVA tenderness Musc: Full ROM, no deformity Skin: Warm, dry Neuro: Alert, oriented, grossly intact, sensation intact Psych: Cooperative, appropriate mood and affect [facility] Medical History Morbid obesity with BMI of 50.0-59.9, adult GERD (gastroesophageal reflux disease) History of diverticulitis Periumbilical hernia Diverticulitis Rheumatoid arthritis History of stroke History of [place] (myocardial infarction) Anxiety and depression Morbid obesity Hypertension Diverticulitis large intestine Home Medications ?Medication ?Instructions ?Recorded ?Last Taken ?Type sertraline 25 mg tablet 25 mg PO DAILY 05/02/24 05/02/24 History sucralfate 1 gram tablet 1 g PO TIDAC 30 days #90 tabs 05/03/24 Unknown Rx docusate sodium 100 mg capsule 100 mg PO BID #60 caps 05/30/24 07/13/24 Rx (Colace) omeprazole 40 mg capsule,delayed 40 mg PO BID 07/02/24 07/13/24 History release ondansetron 8 mg disintegrating 8 mg PO Q8H PRN nausea and 07/02/24 07/13/24 Rx tablet vomiting #14 tabs oxycodone 5 mg capsule 5 mg PO Q6H PRN pain (scale score 07/02/24 Unknown Rx 7-10) 3 days #12 caps Allergy/AdvReac Type Severity Reaction Status Date / Time morphine Allergy Mild Rash Verified 07/14/24 13:41 acetaminophen (From Vicodin) Allergy Rash Verified 07/14/24 13:41 codeine Allergy Anaphylaxis Verified 07/14/24 13:41 hydrocodone bitartrate (From Allergy Rash Verified 07/14/24 13:41 Vicodin) latex Allergy Swelling Verified 07/14/24 13:41 naproxen Allergy Hives Verified 07/14/24 13:41 ondansetron (From Zofran (as AdvReac Nausea Verified 07/14/24 13:41 hydrochloride)) Family History Mother Cancer Father Brain aneurysm Surgical History History of bowel resection Hx of hand surgery Hx of foot surgery Hx of arthroscopy of right knee History of tonsillectomy and adenoidectomy Hx of cholecystectomy Hx of appendectomy Social History household members: spouse Smoking Status: Never smoker alcohol intake: never substance use type: does not use EXAM Physical Exam Const Vital Signs: 07/14/24 13:39 07/14/24 15:46 07/14/24 17:00 Temperature 97.8 F 98 F Temperature Source Oral Pulse Rate 88 86 73 Respiratory Rate 18 16 18 Blood Pressure 178/104 H 105/69 105/78 Blood Pressure Mean 128 81 87 Pulse Ox 99 99 99 Oxygen Delivery Method Room Air Room Air 07/14/24 17:15 Temperature 98.2 F Temperature Source Oral Pulse Rate 78 Respiratory Rate 16 Blood Pressure 105/78 Blood Pressure Mean 87 Pulse Ox 98 Oxygen Delivery Method Room Air MDM MDM MDM Narrative Medical decision making narrative: 49-year-old male with past medical history of diverticulitis presents for evaluation of left lower quadrant abdominal pain. History taken by patient as well as medical record, discharge summary from 07/02. Patient endorses left lower quadrant abdominal pain since 07/02 when he was diagnosed with diverticulitis. Associated symptom nausea and decreased p.o. intake. Differential diagnosis includes but is not limited to diverticulitis, abscess, electrolyte abnormality, UTI, urolithiasis. NS bolus, morphine, Zofran ordered for symptoms. CT abdomen pelvis ordered. CBC without leukocytosis or anemia. CMP unremarkable. Lactic acid unremarkable. Lipase unremarkable. UA negative for UTI. CT abdomen pelvis shows minimal residual acute uncomplicated diverticulitis of the mild sigmoid colon, significantly improved from prior. On reevaluation, patient states that his pain is not controlled. He states he has been eating and able to tolerate p.o. intake. Given these reasons, patient will warrant admission. Dilaudid and Zosyn ordered. I spoke with Dr. Bhakta with the hospitalist service, recommend reaching out to general surgery prior to admission. I spoke with Dr. Patel who personally reviewed the imaging. He agrees that CT abdomen pelvis shows improved infection. Agrees with IV antibiotics and admission until patient can tolerate diet. I recontacted Dr. Bhakta who spoke to Dr. Patel after me, he will evaluate the patient prior to admission. On Dr. Patel evaluation, patient endorsing right lower quadrant abdominal pain and tenderness however this is the opposite of what the patient endorsed to me as well as on physical exam. Plan is for patient to discharge home on a 7-day course of Augmentin per Dr. Patel. Follow-up in his office. Patient confirmed understanding the plan. Patient will be discharged home. Return precautions explained. Impression: 1. Mild acute uncomplicated diverticulitis Lab Data Labs: Laboratory Results - last 24 hr 07/14/24 07/14/24 07/14/24 14:49 15:25 15:28 WBC 11.0 RBC 5.05 Hgb 13.4 Hct 41.4 MCV 82.0 MCH 26.5 L MCHC 32.4 RDW Std Deviation 39.8 RDW Coeff of Mirlande 13.5 Plt Count 400 MPV 9.6 Immature Gran % (Auto) 0.500 Neut % (Auto) 61.4 Lymph % (Auto) 30.5 [place] % (Auto) 5.0 Eos % (Auto) 2.1 Baso % (Auto) 0.5 Absolute Neuts (auto) 6.8 Absolute Lymphs (auto) 3.36 Nucleated RBC % 0 Sodium 137 Potassium 4.3 Chloride 102 Carbon Dioxide 23.3 Anion Gap 12 BUN 15 Creatinine 0.91 Estim Creat Clear Calc 140.89 Est GFR (MDRD) Non-Af 104 BUN/Creatinine Ratio 15.9 Glucose 95 Lactic Acid Calcium 8.8 Total Bilirubin 0.27 AST 24 ALT 24 Alkaline Phosphatase 103 Total Protein 7.5 Albumin 3.9 Globulin 3.6 Albumin/Globulin Ratio 1.1 Lipase 19 Urine Color Yellow Urine Clarity Clear Urine pH 7.0 Ur Specific [place] 1.010 Urine Protein TNP Urine Glucose (UA) Normal Urine Ketones Negative Urine Occult Blood Negative Urine Nitrite Negative Urine Bilirubin Negative Urine Urobilinogen Normal Ur Leukocyte Esterase 25 H Urine RBC 0-5 SEEN Urine WBC 5-10 SEEN Ur Squamous Epith Cells 0 SEEN Urine Bacteria RARE Urine Mucus 0 SEEN U Random Total Protein 14.8 H 07/14/24 15:30 WBC RBC Hgb Hct MCV MCH MCHC RDW Std Deviation RDW Coeff of [place]lande Plt Count MPV Immature Gran % (Auto) Neut % (Auto) Lymph % (Auto) [place] % (Auto) Eos % (Auto) Baso % (Auto) Absolute Neuts (auto) Absolute Lymphs (auto) Nucleated RBC % Sodium Potassium Chloride Carbon Dioxide Anion Gap BUN Creatinine Estim Creat Clear Calc Est GFR (MDRD) Non-Af BUN/Creatinine Ratio Glucose Lactic Acid 1.5 Calcium Total Bilirubin AST ALT Alkaline Phosphatase Total Protein Albumin Globulin Albumin/Globulin Ratio Lipase Urine Color Urine Clarity Urine pH Ur Specific [place] Urine Protein Urine Glucose (UA) Urine Ketones Urine Occult Blood Urine Nitrite Urine Bilirubin Urine Urobilinogen Ur Leukocyte Esterase Urine RBC Urine WBC Ur Squamous Epith Cells Urine Bacteria Urine Mucus U Random Total Protein Radiography Diagnostic Testing: Clinical Impression(s) from Imaging Studies Abdomen/Pelvis CT 07/14/24 15:00 IMPRESSION: Minimal residual acute uncomplicated diverticulitis of the mid sigmoid colon, significantly improved from recent prior. Reading Location: [facility] Discharge Plan Triage Chief Complaint: Abd Pain ED Provider: Sebastian Puri Dx/Rx/DC Orders Prescriptions: No Action omeprazole 40 mg capsule,delayed release(DR/EC) 40 mg PO BID Patient Comments: PT TAKES AT BEDTIME oxycodone 5 mg capsule 5 mg PO Q6H PRN (Reason: pain (scale score 7-10)) 3 Days Qty: 12 0RF Patient Comments: PT STATED HE IS OUT ondansetron 8 mg tablet,disintegrating 8 mg PO Q8H PRN (Reason: nausea and vomiting) Qty: 14 0RF Rx Instructions: 1st dose 1-2 hr before radiation sertraline 25 mg tablet 25 mg PO DAILY Patient Comments: PT TAKES AT BEDTIME sucralfate 1 gram Tablet 1 g PO TIDAC 30 Days Qty: 90 0RF Patient Comments: PT TAKES AT BEDTIME docusate sodium [Colace] 100 mg capsule 100 mg PO BID Qty: 60 0RF Patient Comments: PT TAKES AT BEDTIME Primary Care Provider: KATHRYN VIGIL Referrals: KATHRYN VIGIL CRNP [Primary Care Provider] - Print Language: [place] Island[place]
[2024-07-14 15:39] LABS: Mucous, Urine 0 SEEN /hpf (<or=2+); Squamous Epithelial Cells - UA 0 SEEN /hpf (0-5)
[2024-07-14] MEDS: 0.9% Normal Saline (1000mL) 1,000 ML 999 ML IV (15:40)
[2024-07-14] MEDS: Metoclopramide 10 MG/2 ML Vial IV (15:40)
[2024-07-14] MEDS: HYDROmorphone 0.5 MG/0.5 ML SYRINGE IV ×2 (15:40→17:08)
[2024-07-14 15:45] LABS: Color, Urine Yellow (Yellow); Glucose, Dipstick Normal (Normal); Ketone-Dipstick Negative (Negative); Leukocyte Esterase-Dipstick 25 /ul (Negative); Nitrite-Dipstick Negative (Negative); Occult Blood-Urine Negative /ul (Negative); Urine Bilirubin Dipstick Negative (Negative); Urine Clarity Clear (Clear); Urine Urobilinogen Normal (Normal)
[2024-07-14 15:46] VITALS: BP 105/69; PULSE 86; RESP 16; O2SAT 99
[2024-07-14 15:53] LABS: Absolute Lymphocyte Count 3.36 X10^3/uL (0.83-4.51); Absolute Neutrophil Count 6.8 X10^3/uL (2.0-7.7); Basophil# 0.06 X10^3/uL; Basophil% 0.5 % (0-1); Eosinophil# 0.23 X10^3/uL; Eosinophils% 2.1 % (0-5); Hematocrit 41.4 % (40-54); Hemoglobin 13.4 g/dL (13.0-16.5); Lymphocyte # 3.36 X10^3/ul (0.83-4.51); Lymphocyte % 30.5 % (19-41); Mean Corp Hgb Conc 32.4 g/dL (32-36); Mean Corpuscular Hgb 26.5 pg (27.0-32.0); Mean Platelet Vol. 9.6 fl (6.2-12.0); Monocyte# 0.55 X10^3/uL; NRBC Flagged by Analyzer 0 % (0-5); Neutrophil # 6.78 X10^3/uL (2.7-7.7); Neutrophil % 61.4 % (47-70); Platelet Count 400 K/mm3 (150-450); RBC Distribution Width CV 13.5 % (11.6-14.6); RBC Distribution Width SD 39.8 fl (35.1-43.9); Red Blood Count 5.05 M/mm3 (4.6-6.2)
[2024-07-14 16:03] LABS: ALB/GLOB Ratio 1.1 RATIO (0.9-2.4); AST(SGOT) 24 U/L (<=37); Alanine Aminotransfer ALT/SGPT 24 U/L (<=46); Albumin, Serum 3.9 g/dL (3.5-5.0); Alkaline Phosphatase 103 U/L (40-129); Anion Gap 12 (5-15); BUN 15 mg/dL (4-19); BUN/Creat Ratio 15.9 RATIO (10-20); Calcium,Total 8.8 mg/dL (7.6-11.0); Carbon Dioxide 23.3 mmol/L (21.0-32.0); Chloride 102 mmol/L (98-108); Creatinine, Serum 0.91 mg/dL (0.70-1.20); EST Glomerular Filtration Rate 104 (>60); Estimated Creatinine Clearance 140.89 ml/min (50-250); Globulin 3.6 g/dL (2.2-4.2); Glucose 95 mg/dL (70-99); Lipase 19 U/L (13-75); Potassium 4.3 mmol/L (3.3-5.1); Protein, Total 7.5 g/dL (5.9-8.4); Sodium Level 137 mmol/L (133-145); Total Bilirubin 0.27 mg/dL (0.00-1.30)
[2024-07-14 16:07] LABS: Lactic Acid 1.5 mmol/L (0.0-2.0)
[2024-07-14 16:19] LABS: Protein, Urine (Random) 14.8 mg/dL (0.0-12.0)
[2024-07-14 16:23] LABS: Bacteria RARE /hpf (None Seen); Red Blood Cells-Urine 0-5 SEEN /hpf (0-5); White Blood Cells 5-10 SEEN /hpf (0-5)
[2024-07-14 17:00] VITALS: BP 105/78; PULSE 73; RESP 18; TEMP 36.6; O2SAT 99
[2024-07-14] MEDS: Piperacil/Tazobactam 3.375 GM in 0.9% Normal Saline (50mL MB+) 50 ML IV (17:07)
[2024-07-14 17:15] VITALS: BP 105/78; PULSE 78; RESP 16; TEMP 36.8; O2SAT 98
--- NOTE | 2024-07-14 18:03 | EX.PCM.CON.S ---
Assessment & Plan Assessment/Plan (1) Diverticulitis: PLAN: Patient is a 49-year-old male with history of acute uncomplicated diverticulitis that was admitted briefly on 07/02/2024 before he was discharged with additional oral antibiotics (Cipro and Flagyl) for 7-day course. He read?presented today from gastroenterology office after complaining of persistent severe abdominal discomfort. For me he complains of primarily right lower quadrant pain he had his abdominal exam is rather benign and he does not demonstrate evidence of peritonitis. Extensive time was spent directly sharing patient's CT imaging from 07/02/2024 and now today's imaging. I was intentional with pointing out the marked reduction in inflammatory changes along the colon just proximal to patient's colorectal anastomosis. Additionally, I showed him that there is no abnormality of the right lower quadrant apart from some mild amount of stool in the right colon. Lastly, I showed him and his the normal CBC and differential results. I suggested we could provide him options of either inpatient admission with aggressive management of his diverticulitis with n.p.o. status, IV antibiotics, and minimal to no narcotics (on account of wanting to avoid any additional constipation) versus outpatient management with an additional week of antibiotics (it is my practice to prescribe 10 to 14 days of antibiotics therapy) with recommendation for high-protein low fiber diet, use of probiotic, and scheduled outpatient follow-up in 1 week. I was ade with my declaration that I did not believe his clinical workup warranted the former but if he was unable to tolerate either the discomfort or maintain a reasonable nutritional status that I would be willing to consider it. It was Mr. Lopez's spoken wishe to be discharged with the outpatient follow-up and he declared that he was comfortable with this course of action. Additionally, I established my expectation for 6-week colonoscopy to endoscopically evaluate this area. I offered to try to refer patient back to either Dr. Andersen or Dr. White since he is established with them previously but it is his preference to continue care with me. I thus asked emergency medicine to arrange for outpatient follow-up in 1 week. Hospitalist was notified of this change in care plan and the conversations with the patient. Eddie Patel MD General Surgery Endocrine Surgery Pager: [facility] [address] [place] [address], [facility], [address] [place] [address] Office: [phone] HPI Consult Data Date of Consult: 07/14/24 HPI Narrative Reason for Consultation: Acute diverticulitis HPI Narrative: BARRETT LOPEZ, is a 49 M who presents to [facility] [place] [facility] ER on direction from gastroenterology after complaining of persistent left lower quadrant pain. He was recently admitted for a flare of acute diverticulitis and discharged the same day 07/02/2024. He reports he completed a prescribed 7-day course of ciprofloxacin and Flagyl but had subjective fevers and chills. Further he described a poor appetite and persistent abdominal discomfort. For me he shares that his pain is primarily on the right lower quadrant but across the lower abdomen generally. He has a history of acute diverticulitis status post segmental colonic resection and reanastomosis through [facility] in [address] Maldonado. He is uncertain whether or not he underwent colonoscopy perioperatively. He does report that he is established with both Drs. White and Nathaly. He states that Dr. White performed an upper endoscopy for ulcers and Dr. Andersen was due to perform double endoscopy March of this year but was unable to complete the lower endoscopy because of too much stool. Patient's shares that her has difficulty completing the prep because of nausea. They state they are unaware of any prep apart from [facility]. Emergency room evaluation findings CBC with normal WBC and no left shift. CT imaging of the abdomen pelvis shows Minimal residual acute uncomplicated diverticulitis of the mid sigmoid colon, significantly improved from recent prior. I was asked to evaluate patient by hospitalist service after they were asked by emergency medicine to consider admission for this patient because of intractable abdominal pain and poor p.o. intake. [facility] Medical History (Updated 07/14/24 @ 17:[address] Sebastian Puri, ) Morbid obesity with BMI of 50.0-59.9, adult GERD (gastroesophageal reflux disease) History of diverticulitis Periumbilical hernia Diverticulitis Rheumatoid arthritis History of stroke History of [place] (myocardial infarction) Anxiety and depression Morbid obesity Hypertension Diverticulitis large intestine Home Medications ?Medication ?Instructions ?Recorded ?Last Taken ?Type sertraline 25 mg tablet 25 mg PO DAILY 05/02/24 05/02/24 History sucralfate 1 gram tablet 1 g PO TIDAC 30 days #90 tabs 05/03/24 Unknown Rx docusate sodium 100 mg capsule 100 mg PO BID #60 caps 05/30/24 07/13/24 Rx (Colace) omeprazole 40 mg capsule,delayed 40 mg PO BID 07/02/24 07/13/24 History release ondansetron 8 mg disintegrating 8 mg PO Q8H PRN nausea and 07/02/24 07/13/24 Rx tablet vomiting #14 tabs oxycodone 5 mg capsule 5 mg PO Q6H PRN pain (scale score 07/02/24 Unknown Rx 7-10) 3 days #12 caps amoxicillin 875 mg-potassium 1 tab PO BID 7 days #14 tabs 07/14/24 Unknown Rx clavulanate 125 mg tablet Allergy/AdvReac Type Severity Reaction Status Date / Time morphine Allergy Mild Rash Verified 07/14/24 13:41 acetaminophen (From Vicodin) Allergy Rash Verified 07/14/24 13:41 codeine Allergy Anaphylaxis Verified 07/14/24 13:41 hydrocodone bitartrate (From Allergy Rash Verified 07/14/24 13:41 Vicodin) latex Allergy Swelling Verified 07/14/24 13:41 naproxen Allergy Hives Verified 07/14/24 13:41 ondansetron (From Zofran (as AdvReac Nausea Verified 07/14/24 13:41 hydrochloride)) Family History Mother Cancer Father Brain aneurysm Surgical History History of bowel resection Hx of hand surgery Hx of foot surgery Hx of arthroscopy of right knee History of tonsillectomy and adenoidectomy Hx of cholecystectomy Hx of appendectomy Social History household members: spouse Smoking Status: Never smoker alcohol intake: never substance use type: does not use Physical Exam Const alert, oriented x3, healthy appearing and well nourished Resp normal respiratory effort GI GI Narrative: Morbidly obese, well-healed laparotomy incision with slight umbilical hernia, right lower quadrant incision from prior open appendectomy?no visible herniation, nondistended, soft, reported tenderness with palpation of the right lower quadrant and left lower quadrant but primarily of the right lower quadrant. There is no involuntary guarding. Lab / Micro Data 07/14/24 14:49 07/14/24 14:49 Labs: Laboratory Results - last 24 hr 07/14/24 14:49: WBC 11.0, RBC 5.05, Hgb 13.4, Hct 41.4, MCV 82.0, MCH 26.5 L, MCHC 32.4, RDW Std Deviation 39.8, RDW Coeff of Mirlande 13.5, Plt Count 400, MPV 9.6, Immature Gran % (Auto) 0.500, Neut % (Auto) 61.4, Lymph % (Auto) 30.5, [place] % (Auto) 5.0, Eos % (Auto) 2.1, Baso % (Auto) 0.5, Absolute Neuts (auto) 6.8, Absolute Lymphs (auto) 3.36, Nucleated RBC % 0, Sodium 137, Potassium 4.3, Chloride 102, Carbon Dioxide 23.3, Anion Gap 12, BUN 15, Creatinine 0.91, Estim Creat Clear Calc 140.89, Est GFR (MDRD) Non-Af 104, BUN/Creatinine Ratio 15.9, Glucose 95, Calcium 8.8, Total Bilirubin 0.27, AST 24, ALT 24, Alkaline Phosphatase 103, Total Protein 7.5, Albumin 3.9, Globulin 3.6, Albumin/Globulin Ratio 1.1, Lipase 19 07/14/24 15:25: U Random Total Protein 14.8 H 07/14/24 15:28: Urine Color Yellow, Urine Clarity Clear, Urine pH 7.0, Ur Specific Wallace 1.010, Urine Protein TNP, Urine Glucose (UA) Normal, Urine Ketones Negative, Urine Occult Blood Negative, Urine Nitrite Negative, Urine Bilirubin Negative, Urine Urobilinogen Normal, Ur Leukocyte Esterase 25 H, Urine RBC 0-5 SEEN, Urine WBC 5-10 SEEN, Ur Squamous Epith Cells 0 SEEN, Urine Bacteria RARE, Urine Mucus 0 SEEN 07/14/24 15:30: Lactic Acid 1.5 Imaging Radiology Impression Abdomen/Pelvis CT 07/14/24 15:00 IMPRESSION: Minimal residual acute uncomplicated diverticulitis of the mid sigmoid colon, significantly improved from recent prior. Reading Location: [facility] Charges/Coding Visit Charges Office Visits / Consults: 09043 ED Visit; Moderate Severity
== END 2024-07-14 18:10 | disposition home or self-care (01) ==
PROVIDERS: Emergency Provider Surgery; PCP Nurse Practitioner Adult Health; Visit Provider Surgery
DX: K57.32 Diverticulitis of large intestine without perforation or abscess without bleeding (principal); E66.01 Morbid (severe) obesity due to excess calories; Z68.43 Body mass index [BMI] 50.0-59.9, adult; I10 Essential (primary) hypertension; K21.9 Gastro-esophageal reflux disease without esophagitis; I25.2 Old myocardial infarction; Z86.73 Personal history of transient ischemic attack (TIA), and cerebral infarction without residual deficits; F41.9 Anxiety disorder, unspecified; F32.A Depression, unspecified; Z90.49 Acquired absence of other specified parts of digestive tract
CPT/HCPCS: 74177; 80053; 81001; 83605; 83690; 84156; 85025; 96361; 96374; 96375; 96376; 99283; Q9967

== ENCOUNTER 2024-08-07 19:30 | Emergency (ER) | payer MEDICARE, MEDICAID, SELFPAY ==
[2024-08-07 19:30] VITALS: BP 149/108; PULSE 89; RESP 16; TEMP 36.4; O2SAT 97; BMI 36.8
[2024-08-07] MEDS: DiphenhydrAMINE 50 MG/ML Syringe 25 MG IV (20:03)
[2024-08-07] MEDS: Ketorolac 15 MG/ML Vial IV (20:05)
[2024-08-07] MEDS: Metoclopramide 10 MG/2 ML Vial IV (20:07)
--- NOTE | 2024-08-07 20:23 | EX.ED.VIS.HA ---
HPI <PEGGY Almeida - Last Filed: 08/07/24 22:00> History of Present Illness Chief Complaint: Headache Narrative Narrative: Patient presenting today with a frontal headache that started around 11 AM this morning. He reports a history of migraines and states that this feels similar to headaches he has had in the past. He reports photophobia, phonophobia, and nausea. He reports that the pain has gradually worsened throughout the day. It did not come on suddenly. He reports that he has been seen in the past for migraines and had relief with migraine cocktails. He has tried Excedrin with minimal relief. He denies any fevers or chills. PFSH <PEGGY Almeida - Last Filed: 08/07/24 22:00> [facility] Medical History Morbid obesity with BMI of 50.0-59.9, adult GERD (gastroesophageal reflux disease) History of diverticulitis Periumbilical hernia Diverticulitis Rheumatoid arthritis History of stroke History of [place] (myocardial infarction) Anxiety and depression Morbid obesity Hypertension Diverticulitis large intestine Home Medications ?Medication ?Instructions ?Recorded ?Last Taken ?Type sertraline 25 mg tablet 25 mg PO DAILY 05/02/24 05/02/24 History sucralfate 1 gram tablet 1 g PO TIDAC 30 days #90 tabs 05/03/24 Unknown Rx docusate sodium 100 mg capsule 100 mg PO BID #60 caps 05/30/24 07/13/24 Rx (Colace) omeprazole 40 mg capsule,delayed 40 mg PO BID 07/02/24 07/13/24 History release ondansetron 8 mg disintegrating 8 mg PO Q8H PRN nausea and 07/02/24 07/13/24 Rx tablet vomiting #14 tabs oxycodone 5 mg capsule 5 mg PO Q6H PRN pain (scale score 07/02/24 Unknown Rx 7-10) 3 days #12 caps amoxicillin 875 mg-potassium 1 tab PO BID 7 days #14 tabs 07/14/24 Unknown Rx clavulanate 125 mg tablet Allergy/AdvReac Type Severity Reaction Status Date / Time morphine Allergy Mild Rash Verified 08/07/24 19:33 acetaminophen (From Vicodin) Allergy Rash Verified 08/07/24 19:33 codeine Allergy Anaphylaxis Verified 08/07/24 19:33 hydrocodone bitartrate (From Allergy Rash Verified 08/07/24 19:33 Vicodin) latex Allergy Swelling Verified 08/07/24 19:33 naproxen Allergy Hives Verified 08/07/24 19:33 ondansetron (From Zofran (as AdvReac Nausea Verified 08/07/24 19:33 hydrochloride)) Family History Mother Cancer Father Brain aneurysm Surgical History History of bowel resection Hx of hand surgery Hx of foot surgery Hx of arthroscopy of right knee History of tonsillectomy and adenoidectomy Hx of cholecystectomy Hx of appendectomy Social History household members: spouse Smoking Status: Never smoker alcohol intake: never substance use type: does not use ROS <PEGGY Almeida - Last Filed: 08/07/24 22:00> ROS ED Constitutional Constitutional ED: Denies chills or fever(s) Eyes Eyes: Reports other Details: Photophobia Cardiovascular Cardiovascular: Denies chest pain Respiratory/Chest Respiratory/Chest: Denies dyspnea Gastrointestinal Gastrointestinal: Reports nausea; Denies abdominal pain or vomiting Musculoskeletal Musculoskeletal: Denies neck pain Integumentary Denies rash Neurologic Neurologic: Reports headache(s); Denies paresthesias EXAM <PEGGY Almeida - Last Filed: 08/07/24 22:00> Physical Exam Const Vital Signs: 08/07/24 19:30 08/07/24 22:00 Temperature 97.5 F L 97.5 F L Temperature Source Temporal Pulse Rate 89 89 Respiratory Rate 16 16 Blood Pressure 149/108 H 136/78 H Blood Pressure Mean 121 97 Pulse Ox 97 97 Positive well nourished, well developed and no apparent distress General Appearance ED: well developed HEENT Reports normocephalic and head/scalp atraumatic Mouth ED: Yes moist mucous membranes normal Eyes PERRL and EOMs intact bilaterally Neck full ROM and supple Chest Wall inspection of chest normal Resp normal respiratory effort and clear to auscultation bilaterally Cardio regular rate and regular rhythm Back/Spine normal ROM and normal to inspection Extremity normal to inspection and full ROM Neuro oriented x3, CN's II-XII intact bilaterally, moves all extremities, no focal motor deficits and no sensory deficits noted Sensorium / Orientation: awake and alert Motor Exam: strength 5/5 throughout Psych mental status grossly normal and thought process normal Skin no rashes or lesions noted and no wounds <Dr. Luis Marmolejo, - Last Filed: 08/07/24 22:30> Physical Exam Const Vital Signs: 08/07/24 19:30 08/07/24 22:00 Temperature 97.5 F L 97.5 F L Temperature Source Temporal Pulse Rate 89 89 Respiratory Rate 16 16 Blood Pressure 149/108 H 136/78 H Blood Pressure Mean 121 97 Pulse Ox 97 97 [facility] <PEGGY Almeida - Last Filed: 08/07/24 22:00> [facility] Narrative Medical decision making narrative: Patient presenting with a frontal headache, photophobia, phonophobia, and nausea that started around 11 AM. He has a history of migraines. He reports that this feels similar to previous migraines he has had in the past. Pain came on gradually, he denies sudden onset. Examination does not sound consistent with SAH. He has a normal neurological exam. No meningeal signs. He will be given a migraine cocktail consisting of IV Toradol, Benadryl, Reglan, and fluids. On reexamination he reports that he is still having a headache, he was ordered IV Depakote and on reexamination reports significant improvement of his symptoms. He is requesting to go home. Recommended he follow-up closely with his PCP and he will be discharged home in stable condition. <Dr. Luis Marmolejo, - Last Filed: 08/07/24 22:30> [facility] Narrative Medical decision making narrative: Patient presenting with a frontal headache, photophobia, phonophobia, and nausea that started around 11 AM. He has a history of migraines. He reports that this feels similar to previous migraines he has had in the past. Pain came on gradually, he denies sudden onset. Examination does not sound consistent with SAH. He has a normal neurological exam. No meningeal signs. He will be given a migraine cocktail consisting of IV Toradol, Benadryl, Reglan, and fluids. On reexamination he reports that he is still having a headache, he was ordered IV Depakote and on reexamination reports significant improvement of his symptoms. He is requesting to go home. Recommended he follow-up closely with his PCP and he will be discharged home in stable condition. Attending note: I have personally performed a face to face assessment of the patient and have reviewed the ZORA note. I personally made/approved the management plan and take responsibility for the patient management. I performed a substantive portion of the visit including all aspects of the following. My hernandez findings include: History of migraine progressive headache since at 11 AM. Photophobia. No head injuries. Exam with no meningismus no focal deficits. Initially treated with Reglan Benadryl Toradol with no relief. IV Depakote ordered with improvement of symptoms. Discharged with outpatient follow-up. Discharge Plan Triage Chief Complaint: Headache ED Midlevel Provider: Lubna Sunshine ED Provider: Luis Marmolejo Dx/Rx/DC Orders Clinical Impression: Migraine Instructions: ED, Migraine (Classical) Prescriptions: No Action omeprazole 40 mg capsule,delayed release(DR/EC) 40 mg PO BID Patient Comments: PT TAKES AT BEDTIME oxycodone 5 mg capsule 5 mg PO Q6H PRN (Reason: pain (scale score 7-10)) 3 Days Qty: 12 0RF Patient Comments: PT STATED HE IS OUT ondansetron 8 mg tablet,disintegrating 8 mg PO Q8H PRN (Reason: nausea and vomiting) Qty: 14 0RF Rx Instructions: 1st dose 1-2 hr before radiation amoxicillin-pot clavulanate 875-125 mg tablet 1 tab PO BID 7 Days Qty: 14 0RF sertraline 25 mg tablet 25 mg PO DAILY Patient Comments: PT TAKES AT BEDTIME sucralfate 1 gram Tablet 1 g PO TIDAC 30 Days Qty: 90 0RF Patient Comments: PT TAKES AT BEDTIME docusate sodium [Colace] 100 mg capsule 100 mg PO BID Qty: 60 0RF Patient Comments: PT TAKES AT BEDTIME Primary Care Provider: Care Physician,No Primary Referrals: Care Physician,No Primary [Primary Care Provider] - Activity Restrictions/Additional Instructions: Follow-up with your PCP and return for any other concerns or worsening symptoms. Print Language: Iranian Disposition Disposition: Home, Self Care Discharge Date/Time: 08/07/24 22:05
[2024-08-07] MEDS: 0.9% Normal Saline (1000mL) 1,000 ML 999 ML IV (21:25)
[2024-08-07] MEDS: Valproate Sodium 500 MG in Dextrose 5%-Water (50mL Bag) 50 ML 50 MG IV (21:32)
[2024-08-07 22:00] VITALS: BP 136/78; PULSE 89; RESP 16; TEMP 36.4; O2SAT 97
== END 2024-08-07 22:05 | disposition home or self-care (01) ==
PROVIDERS: Emergency Provider Emergency Medicine; Visit Provider Emergency Medicine
DX: G43.909 Migraine, unspecified, not intractable, without status migrainosus (principal); I10 Essential (primary) hypertension; Z90.49 Acquired absence of other specified parts of digestive tract; I25.2 Old myocardial infarction; K21.9 Gastro-esophageal reflux disease without esophagitis; Z86.73 Personal history of transient ischemic attack (TIA), and cerebral infarction without residual deficits
CPT/HCPCS: 96361; 96374; 96375; 99283; A4216

== ENCOUNTER 2024-08-27 15:51 | Emergency (ER) | payer MEDICARE, MEDICAID, SELFPAY ==
[2024-08-27 15:52] VITALS: BP 144/95; PULSE 78; RESP 15; TEMP 35.8; O2SAT 98; BMI 50.8
--- NOTE | 2024-08-27 16:59 | EDS_ITS ---
HPI History of Present Illness Chief Complaint: GI Bleed [facility] Medical History Morbid obesity with BMI of 50.0-59.9, adult GERD (gastroesophageal reflux disease) History of diverticulitis Periumbilical hernia Diverticulitis Rheumatoid arthritis History of stroke History of [place] (myocardial infarction) Anxiety and depression Morbid obesity Hypertension Diverticulitis large intestine Home Medications ?Medication ?Instructions ?Recorded ?Last Taken ?Type sertraline 25 mg tablet 25 mg PO DAILY 05/02/2412/16 History sucralfate 1 gram tablet 1 g PO TIDAC 30 days #90 tab s 05/03/24 Unknown Rx docusate sodium 100 mg capsule 100 mg PO BID #60 caps 05/30/24 07/13/24 Rx (Colace) omeprazole 40 mg capsule,delayed 40 mg PO BID 07/02/24 07/13/24 History release ondansetron 8 mg disintegrating 8 mg PO Q8H PRN nausea and 07/02/24 07/13/24 Rx tablet vomiting #14 tabs oxycodone 5 mg capsule 5 mg PO Q6H PRN pain (scale score 07/02/24 Unknown Rx 7-10) 3 days #12 caps amoxicillin 875 mg-potassium 1 tab PO BID 7 days #14 t abs 07/14/24 Unknown Rx clavulanate 125 mg tablet Allergy/AdvReac Type Severity Reaction Status Date / Time morphine Allergy Mild Rash Verified 08/27/24 15:52 acetaminophen (From Vicodin) Allergy Rash Verified 08/27/24 15:52 codeine Allergy Anaphylaxis Verified 08/27/24 15:52 hydrocodone bitartrate (From Allergy Rash Verified 08/27/24 15:52 Vicodin) latex Allergy Swelling Verified 08/27/24 15:52 naproxen Allergy Hives Verified 08/27/24 15:52 ondansetron (From Zofran (as AdvReac Nausea Verified 08/27/24 15:52 hydrochloride)) Family History Mother Cancer Father Brain aneurysm Surgical History History of bowel resection Hx of hand surgery Hx of foot surgery Hx of arthroscopy of right knee History of tonsillectomy and adenoidectomy Hx of cholecystectomy Hx of appendectomy Social History household members: spouse Smoking Status: Never smoker alcohol intake: never substance use type: does not use EXAM Physical Exam Const Vital Signs: 08/27/24 15:52 08/27/24 22:00 08/27/24 22:24 Temperature 96.5 F L 97.8 F Temperature Source Temporal Pulse Rate 78 72 70 Respiratory Rate 15 16 19 H Blood Pressure 144/95 H 143/82 H 127/87 H Blood Pressure Mean 111 102 100 Pulse Ox 98 95 96 Oxygen Delivery Method Room Air Room Air MDM MDM MDM Narrative Medical decision making narrative: HISTORY OF PRESENT ILLNESS: Chief complaint: Abdominal pain, hematemesis and hematochezia 49-year-old male history of sigmoid diverticulitis, hypertension, gastroenteritis, hernia presents concern for abdominal pain, bloody vomit and bloody stools. He states he saw Dr. White and was diagnosed with diverticulitis. States he finished course of antibiotics but then developed bleeding. He notes this began yesterday when he felt something rip/tear in the left upper quadrant/left mid abdomen. Denies taking blood thinners. He further stated no fevers. No travel. No sick contacts. Notes he does not have a gallbladder REVIEW OF SYSTEMS: Pertinent positives: Abdominal pain, hematochezia, Pertinent negatives: Syncope, chest pain, shortness of breath PHYSICAL EXAM: Nursing triage notes reviewed, Vital signs reviewed Constitutional: please see mdm HENT: MMM Eyes: Pupils equal round and reactive to light, Extraocular muscles intact Neck: No stridor, no JVD, full neck ROM Lungs: Clear to auscultation, No wheezing or rales. No increased work of breathing, no conversational dyspnea, no accessory muscle use, no nasal flaring. No respiratory distress noted Heart: Regular rate and rhythm, No murmurs, No rubs and No gallops, 2+ distal pulses (radial, femoral, posterior tibial) in all extremities Abdomen: Soft, there is no tenderness, rigidity, rebound or guarding, no obvious peritoneal signs, no palpable pulsatile abdominal masses, no auscultated abdominal bruit : No CVAT Extremities: No edema Neuro: No new focal neurological deficits, cranial nerves II through XII intact, 5/5 strength in all present extremities. Intact sensation to light touch in all present extremities, 2+ reflexes bilateral patella tendons. Skin: No rash or lesions noted MEDICAL DECISION MAKING: Chief Complaint: please see HPI External records reviewed: Reviewed prior imaging studies: Reviewed CT scan from June 2024 which showed the following: IMPRESSION: Minimal residual acute uncomplicated diverticulitis of the mid sigmoid colon, significantly improved from recent prior. Factors affecting care: As per [facility] Social determinants of health: none History obtained from others: none Consults: none [facility] Narrative: The patient was initially hemodynamically stable, afebrile and nontoxic- appearing. Exam was significant left upper quadrant TTP. No left lower quad TTP. Difficult to ascertain abdominal exam given patient's body habitus with the BMI 50. I considered the following differential diagnosis: Anemia, GI bleed, diverticulitis, diverticular abscess, diverticular perforation, amongst others I obtained a broad lab and imaging workup to further elucidate etiology of patient's complaints Initially resuscitated patient only normal saline, Zofran for nausea control and [address] scan of the abdomen pelvis to further assess signs of perforation obstruction or other surgical emergencies. ALL IMAGES (IF OBTAINED) HAVE BEEN PERSONALLY REVIEWED AND INTERPRETED BY MYSELF. CT scan abdomen pelvis shows no evidence of obvious intra-abdominal pathology CBC with leukocytosis suggestive of systemic inflammation, no anemia or thrombocytopenia CMP without evidence of acute kidney injury, significant electrolyte abnormality, anion gap to suggest end organ hypo-perfusion, no evidence of metabolic acidosis with a normal bicarbonate, no evidence of hepatobiliary obstructive pathology. Lipase is wnl indicating no pancreatic inflammation. Hemoccult negative Repeat abdominal exam did not reveal new abnormalities. Given the patient's reassuring labs emergency is appropriate discharge home with close outpatient GI and prior surgical consultations. The patient and/or family, caregivers express understanding. The patient and/or family, caregivers agrees with the plan. Shared decision making: I will have a discussion with the patient and or visitors regarding risk/benefits of further testing or admission. They will be made aware of of the risk/benefits inherent in this decision they will be given the opportunity to voice understanding. Total critical care time today provided was at least 0 minutes. This excludes separately billable procedures. Critical care time (if documented) is secondary to the patient having high probability of clinically significant/life threatening deterioration in the patient's condition which required my urgent intervention. Impression: 1. Abdominal pain 2. History of abdominal surgery Dispo: Discharge home This note was generated with [employer] dictation software. It may contain incorrect words, spelling, and punctuation that were not noted in review of the chart prior to signing. Lab Data Labs: Laboratory Results - last 24 hr 08/27/24 08/27/24 08/27/24 17:08 17:08 18:03 WBC Cancelled 12.2 H Corrected WBC Cancelled RBC Cancelled 5.06 Hgb Cancelled 13.4 Hct Cancelled 40.8 MCV Cancelled 80.6 MCH Cancelled 26.5 L MCHC Cancelled 32.8 RDW Std Deviation Cancelled 39.9 RDW Coeff of [place]lande Cancelled 13.8 Plt Count Cancelled 391 MPV Cancelled 9.0 Immature Gran % (Auto) Cancelled 0.300 Neut % (Auto) Cancelled 54.3 Lymph % (Auto) Cancelled 36.3 [place] % (Auto) Cancelled 6.2 Eos % (Auto) Cancelled 2.4 Baso % (Auto) Cancelled 0.5 Absolute Neuts (auto) Cancelled 6.6 Absolute Lymphs (auto) Cancelled 4.41 Total Counted Cancelled Neutrophils % (Manual) Cancelled Band Neutrophils % Cancelled Lymphocytes % (Manual) Cancelled Monocytes % (Manual) Cancelled Eosinophils % (Manual) Cancelled Basophils % (Manual) Cancelled Metamyelocytes % Cancelled Myelocytes % Cancelled Promyelocytes % Cancelled Blast Cells % Cancelled Plasma Cell % (Manual) Cancelled Other Cells % Cancelled Nucleated RBC % Cancelled 0 Nucleated RBCs/100 WBC Cancelled Differential Comment Cancelled Diff Path Review Cancelled Hypersegmented Neuts Cancelled Atypical Lymphocytes Cancelled Reactive Lymphocytes Cancelled Smudge Cells Cancelled Toxic Granulation Cancelled Toxic Vacuolation Cancelled Dohle Bodies Cancelled Ruby Rods Cancelled Platelet Estimate Cancelled Plt Morphology Comment Cancelled RBC Morphology Cancelled Cancelled Polychromasia Cancelled Hypochromasia Cancelled Basophilic Stippling Cancelled Anisocytosis Cancelled Microcytosis Cancelled Macrocytosis Cancelled Spherocytes Cancelled Sickle Cells Cancelled Target Cells Cancelled Tear Drop Cells Cancelled Ovalocytes Cancelled Stomatocytes Cancelled [place] Bodies Cancelled [place] Cells Cancelled Bite Cells Cancelled Crenated Cell Cancelled Acanthocytes (Spur) Cancelled Rouleaux Cancelled Schistocytes Cancelled Sodium 135 Potassium 4.5 Chloride 103 Carbon Dioxide 20.3 L Anion Gap 13 BUN 11 Creatinine 0.86 Estim Creat Clear Calc 148.13 Est GFR (MDRD) Non-Af 108 BUN/Creatinine Ratio 12.7 Glucose 87 Calcium 9.1 Total Bilirubin 0.26 AST 32 ALT 27 Alkaline Phosphatase 122 Total Protein 7.4 Albumin 3.9 Globulin 3.6 Albumin/Globulin Ratio 1.1 Lipase 19 Radiography Diagnostic Testing: Clinical Impression(s) from Imaging Studies Abdomen/Pelvis CT 08/27/24 20:10 IMPRESSION: No acute process. Reading Location: [facility] Discharge Plan Triage Chief Complaint: GI Bleed ED Provider: Aj Little Dx/Rx/DC Orders Prescriptions: No Action omeprazole 40 mg capsule,delayed release(DR/EC) 40 mg PO BID Patient Comments: PT TAKES AT BEDTIME oxycodone 5 mg capsule 5 mg PO Q6H PRN (Reason: pain (scale score 7-10)) 3 Days Qty: 12 0RF Patient Comments: PT STATED HE IS OUT ondansetron 8 mg tablet,disintegrating 8 mg PO Q8H PRN (Reason: nausea and vomiting) Qty: 14 0RF Rx Instructions: 1st dose 1-2 hr before radiation amoxicillin-pot clavulanate 875-125 mg tablet 1 tab PO BID 7 Days Qty: 14 0RF sertraline 25 mg tablet 25 mg PO DAILY Patient Comments: PT TAKES AT BEDTIME sucralfate 1 gram Tablet 1 g PO TIDAC 30 Days Qty: 90 0RF Patient Comments: PT TAKES AT BEDTIME docusate sodium [Colace] 100 mg capsule 100 mg PO BID Qty: 60 0RF Patient Comments: PT TAKES AT BEDTIME Primary Care Provider: Care Physician,No Primary Referrals: Care Physician,No Primary [Primary Care Provider] - Print Language: Swedish
[2024-08-27] MEDS: HYDROmorphone 0.5 MG/0.5 ML SYRINGE IM (17:53)
[2024-08-27] MEDS: Metoclopramide 10 MG/2 ML Vial 5 MG IM (17:54)
--- NOTE | 2024-08-27 18:00 | ED.RN ---
this RN attempted IV, no access. Coleman also attempted. Obey RN at bedside with u/s
[2024-08-27 18:03] LABS: Lipase 19 U/L (13-75)
[2024-08-27 18:05] LABS: ALB/GLOB Ratio 1.1 RATIO (0.9-2.4); AST(SGOT) 32 U/L (<=37); Alanine Aminotransfer ALT/SGPT 27 U/L (<=46); Albumin, Serum 3.9 g/dL (3.5-5.0); Alkaline Phosphatase 122 U/L (40-129); Anion Gap 13 (5-15); BUN 11 mg/dL (4-19); BUN/Creat Ratio 12.7 RATIO (10-20); Calcium,Total 9.1 mg/dL (7.6-11.0); Carbon Dioxide 20.3 mmol/L (21.0-32.0); Chloride 103 mmol/L (98-108); Creatinine, Serum 0.86 mg/dL (0.70-1.20); EST Glomerular Filtration Rate 108 (>60); Estimated Creatinine Clearance 148.13 ml/min (50-250); Globulin 3.6 g/dL (2.2-4.2); Glucose 87 mg/dL (70-99); Potassium 4.5 mmol/L (3.3-5.1); Protein, Total 7.4 g/dL (5.9-8.4); Sodium Level 135 mmol/L (133-145); Total Bilirubin 0.26 mg/dL (0.00-1.30)
[2024-08-27] MEDS: 0.9% Normal Saline (500mL Bag) 500 ML 999 ML IV (18:08)
[2024-08-27 18:11] LABS: Absolute Lymphocyte Count 4.41 X10^3/uL (0.83-4.51); Absolute Neutrophil Count 6.6 X10^3/uL (2.0-7.7); Basophil# 0.06 X10^3/uL; Basophil% 0.5 % (0-1); Eosinophil# 0.29 X10^3/uL; Eosinophils% 2.4 % (0-5); Hematocrit 40.8 % (40-54); Hemoglobin 13.4 g/dL (13.0-16.5); Lymphocyte # 4.41 X10^3/ul (0.83-4.51); Lymphocyte % 36.3 % (19-41); Mean Corp Hgb Conc 32.8 g/dL (32-36); Mean Corpuscular Hgb 26.5 pg (27.0-32.0); Mean Corpuscular Volume 80.6 fL (80-94); Monocyte# 0.75 X10^3/uL; Monocyte% 6.2 % (0-10); NRBC Flagged by Analyzer 0 % (0-5); Neutrophil % 54.3 % (47-70); Platelet Count 391 K/mm3 (150-450); RBC Distribution Width CV 13.8 % (11.6-14.6); RBC Distribution Width SD 39.9 fl (35.1-43.9); Red Blood Count 5.06 M/mm3 (4.6-6.2); White Blood Count 12.2 K/mm3 (4.4-11.0)
[2024-08-27] MEDS: Ketorolac 15 MG/ML Vial IV (19:42)
[2024-08-27] MEDS: HYDROmorphone 0.5 MG/0.5 ML SYRINGE IV (19:42)
--- NOTE | 2024-08-27 20:10 | CT_ITS ---
PROCEDURE: ABDOMEN/PELVIS W IV CONT ONLY 08/27/2024 REASON FOR EXAM: ABDOMINAL PAIN TECHNIQUE: Abdomen and pelvis CT with intravenous contrast. Coronal and Sagittal reconstruction series were provided. One or more dose reduction techniques were used (e.g., Automated exposure control, adjustment of the mA and/or kV according to patient size, use of iterative reconstruction technique. COMPARISON: 07/14/2024 FINDINGS: Lung bases are clear. Liver, spleen, pancreas and adrenal glands are intact. Gallbladder is absent. No significant biliary ductal dilation. Kidneys enhance symmetrically. No suspicious renal mass, calculi or hydronephrosis. Urinary bladder is within normal limits. Postsurgical changes at the mid sigmoid colon. A few colonic diverticula. No bowel obstruction, focal bowel wall thickening or significant perienteric inflammation. No pelvic free fluid. No free air. No abdominal aortic aneurysm or suspicious adenopathy. Small bilateral fat containing umbilical and bilateral inguinal hernias. No acute osseous abnormality. CT/Abdomen/Pelvis W IV Cont ONLY IMPRESSION: No acute process. Reading Location: [facility]
[2024-08-27 22:00] VITALS: BP 143/82; PULSE 72; RESP 16; O2SAT 95
--- NOTE | 2024-08-27 22:11 | CM.ED ---
Social work Reason for referral: no PCP Referral source: case find This SW noticed patient's lack of PCP and need for resources. SW entered patient's room, introducing self and role at [facility]. Patient welcomed SW visit and introduced patient's and daughter who were bedside. Patient confirmed not having a PCP and accepted resources of [facility] Provider Directory and Leslie Chavez information. Patient asked for more information on advanced directives and stated needing to complete these documents soon due to recent health concerns. Patient continued to express reasons for needing to complete the documents, specifically stating patient's status. Patient discussed time spent in the and the impact it had on patient's life. Patient stated missing it and desiring to rejoin over experiencing the current health issues. Patient hesitated, but accepted local counseling resources; patient stated patient's motorcycle was patient's counselor. Patient denied further needs at this time. Katheryn Yeung, WHEEL OF FORTUNE DEALER, FASTENER SEWING MACHINE OPERATOR
[2024-08-27 22:24] VITALS: BP 127/87; PULSE 70; RESP 19; TEMP 36.6; O2SAT 96
== END 2024-08-27 22:36 | disposition home or self-care (01) ==
PROVIDERS: Emergency Provider Emergency Medicine; Visit Provider Emergency Medicine
DX: R10.9 Unspecified abdominal pain (principal); I10 Essential (primary) hypertension; Z90.49 Acquired absence of other specified parts of digestive tract; Z87.19 Personal history of other diseases of the digestive system; I25.2 Old myocardial infarction; K21.9 Gastro-esophageal reflux disease without esophagitis; F41.9 Anxiety disorder, unspecified; F32.A Depression, unspecified
CPT/HCPCS: 74177; 80053; 82274; 83690; 85025; 96361; 96372; 96374; 96375; 96376; 99283; Q9967; A4216

== ENCOUNTER 2024-09-03 20:37 | Emergency (ER) | payer MEDICARE, MEDICAID, SELFPAY ==
[2024-09-03 20:37] VITALS: BP 150/83; PULSE 93; RESP 16; TEMP 36.8; O2SAT 100; BMI 50.6
--- OUTSIDE RECORDS SUMMARY | 2024-09-03 21:27 | XMS RPT_ITS | CCD ---
Author Organization [facility] Care Team Providers Care Printing Sign Machine Operator Name Role Phone DR MOSES SALDANA MD Primary Care Physician PHYSICIAN, NONE Primary Care Physician Unavailab le Care Physician, No Primary Primary Care Provider Unavailable Dr. Yana Salmeron Admit Provider [phone] Yana Salmeron Attending Provider Dr. Yana Salmeron Other Provider Dr. Anthony Jain Attending Provider [phone] Barrett Phillips Attending Provider Dr. Annette To Referring Provider [phone] Unavailable Primary Care Provider Unavailabl e Unavailable Primary Care Provider Unavailabl e Unavailable Primary Care Provider Unavailabl e PHYSICIAN, PATIENT UNSURE Primary Care Physician Unavailable EMELINA JONES Attending Unavailable EMELINA JONES Consulting Unavailable EMELINA JONES Admitting Unavailable PHYSICIAN, NOT RECORDED Primary Care Physician VIC Goff Referring Unavailable Unavailable Primary Care Provider Unavailabl e MAST HADOOP JAVA 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, EILEEN Primary Care Physician NIKKI ROSA MD Attending Unavailable PHYSICIAN, PATIENT UNSURE Primary Care Brayan SERVIN MD, DR DOBBINS Attending Unavailabl e PHYSICIAN, PATIENT UNSURE Primary Care Unaazi lable PHYSICIAN, NOT RECORDED Primary Care Unavaila ble ADAM CARROLL DO Attending Raghu ERVIN MD, DR VEE Colunga Attending Brayan hernandez PHYSICIAN, NOT RECORDED Primary Care Unavaila ble PHYSICIAN, NOT RECORDED Primary Care Unavaila ble ADAM CARROLL DO Attending Unavailable PASCALE AARON, DR JG Lincoln Attending Unavailable PHYSICIAN, NOT RECORDED Primary Care Unavaila ble ADAM CARROLL DO Attending Unavailable PHYSICIAN, PATIENT UNSURE Primary Care Unavai lable MAST HADOOP JAVA 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, EILEEN Primary Care Unavailabl e MAST HADOOP JAVA 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, EILEEN Attending Unavailabl e PLUNK DO, JIMMIE Attending Unavailable LORENZO HADOOP JAVA 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, SHUN M Admitting Unavail able PHYSICIAN, NOT RECORDED Primary Care Unavailfamilia VASQUEZ MD, FLAKO Consulting Unavailable PLANNABELLA DO, JIMMIE Referring Unavailable REICHFIELD DO, MICHELLE Attending Unavailable PHYSICIAN, PATIENT UNSURE Primary Care Brayan LUNDBERG MD, CARMEN Attending Unavailable PHYSICIAN, PATIENT UNSURE Primary Care Unacorine hernandez PHYSICIAN, NOT RECORDED Primary Care Unavaila ble REICHFIELD DO, MICHELLE Attending Unavailable Mast TELEVISION CABINET FINISHER, Eileen Primary Care Provider MAST, EILEEN Primary Care Unavailable DEANDRA OCHOA Referring Unavailab le Blanco AARON, Dr. Osullivan Attending Provider [phone] Abran Simeon DO Emergency Provider MAST MEDICATION ASSISTANT, EILEEN Primary Care Provider Samantha BOONE, Sidney Attending Provider Sidney Singh MD Referring Provider Sidney Singh MD Emergency Provider Khushi AARON, Dr. Cortes Emergency Provider Jaron BOONE, Dr. Yana Coleman Admit Provider Jaron BOONE, Dr. Yana Coleman Other Provider Jacob BOONE, Dr. Luis Cervantes Attending Provider Daniel BOONE, Dr. Valenzuela Attending Provider Jacob BOONE, Dr. Luis Cervantes Referring Provider Jacob BOONE, Dr. Luis Cervantes Other Provider Dr. Logan White DO Attending Provider Dr. Patrick Moreno DO Attending Provider Dr. Patrick Moreno DO Emergency Provider Dr. Luis Marmolejo DO Emergency Provider [phone] Dr. Abran Simeon DO Attending Provider [phone] Abran Simeon DO Emergency Provider MAST MEDICATION ASSISTANT, EILEEN Primary Care Provider Sidney Singh MD Attending Provider Sidney Singh MD Referring Provider Samantha BOONE, Sidney Emergency Provider Dr. Sebastian Puri DO Emergency Provider Jaron BOONE, Dr. Yana Coleman Admit Provider Jaron BOONE, Dr. Yana Coleman Other Provider Jacob BOONE, Dr. Luis Cervantes Attending Provider Daniel BOONE, Dr. Valenzuela Attending Provider Jacob BOONE, Dr. Luis Cervantes Referring Provider Jacob BOONE, Dr. Luis Cervantes Other Provider Christopher AARON, Dr. Ford Attending Provider Dr. Patrick Moreno DO Attending Provider Dr. Patrick Moreno DO Emergency Provider Dr. Luis Marmolejo DO Attending Provider Dr. Luis Marmolejo DO Emergency Provider Dr. Marv Pack DO Emergency Provider MAST MEDICATION ASSISTANT, EILEEN Primary Care Provider Dr. Marv Pack DO Attending Provider de Ba AARON, Dr. Pimentel Attending Provider Unav ailable de Dr. Vic Cosme DO Admit Provider Unavail able de Dr. Vic Cosme DO Other Provider Unavail able Dr. Patrick Peng DO Attending Provider MAST MEDICATION ASSISTANT, EILEEN Primary Care Provider Sidney Singh MD Attending Provider Sidney Singh MD Referring Provider Sidney Singh MD Emergency Provider [facility] DO, Dr. Cortes Emergency Provider Jaron BOONE, Dr. Yana Coleman Admit Provider Jaron BOONE, Dr. Yana Coleman Other Provider Jacob BOONE, Dr. Luis Cervantes Attending Provider Daniel BOONE, Dr. Valenzuela Attending Provider Jacob BOONE, Dr. Luis Cervantes Referring Provider Jacob BOONE, Dr. Luis Cervantes Other Provider Friend DO, Dr. Ford Attending Provider Schwdamian DO, Dr. Nguyen Attending Provider Schwdamian AARON, Dr. Nguyen Emergency Provider Francie DO, Dr. Smith Attending Provider Le DO, Dr. Smith Emergency Provider Andes DO, Dr. Fair Attending Provider Andes DO, Dr. Fair Emergency Provider de Ba DO, Dr. Pimentel Attending Provider Unav ailable de Ba DO, Dr. Pimentel Admit Provider Unavail able de Ba DO, Dr. Pimentel Other Provider Unavail able Jopperi DO, Dr. Nguyen Attending Provider MAST MEDICATION ASSISTANT, EILEEN Referring Provider Shruthi Edward Attending Provider ASIA SALGADO Attending Unavailable MAST, EILEEN Primary Care Unavailable ASIA SALGADO Attending Unavailable MAST, EILEEN Primary Care Unavailable OTIS ALTAMIRANO Attending Unavailable MAST, EILEEN Primary Care Unavailable DEANDRA OCHOA Attending Unavailab le CHICCLARKELIDEANDRA Attending Unavailab le MAST, EILEEN Primary Care Unavailable GUERLINE ANDERSEN Attending Unavailable MAST, EILEEN Primary Care Unavailable SELF Referring Unavailable MAST, EILEEN Primary Care Unavailable ASIA SALGADO Attending Unavailable MAST, EILEEN Primary Care Unavailable ASIA SALGADO Referring Unavailable GUERLINE ANDERSEN Attending Unavailable CHICORELLI, VIMAL Attending Unavailab le MAST, EILEEN Primary Care Unavailable ELINOR CUNHA Attending Unavailable ASIA SALGADO Referring Unavailable ASIA SALGADO Attending Unavailable Khushi AARON, Dr. Cortes Attending Provider Khushi AARON, Dr. Cortes Referring Provider Dr. Harry Patel MD Attending Provider Care Physician, No Primary Primary Care Provider Unavailable MAST MEDICATION ASSISTANT, EILEEN Primary Care Provider [phone] Dr. Aj Little DO Emergency Provider [phone] Nicolas Sanchez Attending Unavailabl e MAST, EILEEN Primary Care Unavailable MAST, EILEEN Primary Care Unavailable White, Yana L Attending Unavailable White, Yana L Consulting Unavailable White, Yana L Admitting Unavailable Luis James Referring Unavailable Friend, Logan Attending Unavailable Veronique Jamess F Consulting Unavailable MAST, EILEEN Primary Care Unavailable Luis Marmolejo Attending Unavailable MAST, EILEEN Primary Care Unavailable Sebastian Puri Referring Unavailabl e Harry Patel Attending Unavailable MAST, EILEEN Primary Care Unavailable Vic Mercado Attending Unavailable MAST, EILEEN Primary Care Unavailable MAST, EILEEN Referring Unavailable Shruthi Baeza Attending Unavailable MAST, EILEEN Referring Unavailable Friend, Logan Attending Unavailable MAST, EILEEN Primary Care Unavailable Patrick Moreno Attending Unavailable MAST, EILEEN Primary Care Unavailable MAST, EILEEN Primary Care Unavailable Marv Pack Attending Unavailable MAST, EILEEN Primary Care Unavailable Patrick Peng Attending Unavailable Vic Mercado Consulting Unavailable Vic Mercado Admitting Unavailable MAST, EILEEN Primary Care Unavailable Luis James F Attending Unavailable White, Yana L Consulting Unavailable White, Yana L Admitting Unavailable Care Physician, No Primary Primary Care Unava ilable Ruddy Spain Attending Unavailable MAST, EILEEN Primary Care Unavailable Abran Simeon Attending Unavailable MAST, EILEEN Primary Care Unavailable Samantha Sidney Referring Unavailable Reodica, Sidney Attending Unavailable LeLuis Attending Unavailable Care Physician, No Primary Primary Care Unava ilable Anabel, Aj Attending Unavailable Care Physician, No Primary Primary Care Unava ilable MAST, EILEEN Primary Care Unavailable Sebastian Puri Attending Unavailabl e MAST HADOOP JAVA 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, EILEEN Primary Care Unavailabl e MAST HADOOP JAVA 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, EILEEN Attending Unavailabl e CARLY DO, ADAM Attending Unavailable MAST HADOOP JAVA 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, EILEEN Primary Care Unavailabl e ELI REED DO Attending Unavailable MAST HADOOP JAVA 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, EILEEN Primary Care Unavailabl e ANTON BOONE, VICTOR M Reynaga Attending Unavail able MAST HADOOP JAVA 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, EILEEN Primary Care Unavailabl e MAST HADOOP JAVA 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, EILEEN Primary Care Unavailabl e ANTON BOONE, VICTOR M Reynaga Attending Unavail able MAST HADOOP JAVA 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, EILEEN Primary Care Unavailabl e TAMIKA BOONE, CARMEN Attending Unavailable ANTON BOONE, VICTOR M Reynaga Attending Unavail able MAST HADOOP JAVA 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, EILEEN Primary Care Unavailabl e Allergies Allergy Classification Reported Allergen(s) Allergy Type Date of Onset Reaction(s) Facility (20 sources) Acetaminophen / HYDROcodone; Translations: [acetaminophen-hy drocodone] Drug Allergy 6 Weal (disorder) [facility] Comment on above: VICODIN: SEVERE RASH ON UPPER BODY AND ARMS AND EXTREME FACE SWELLING WITH VICODIN . . ALTHOUGH PATIENT STATES HE CAN TAKE OXYCODONE WITHOUT ANY PROBLEMS OR SENSATIVITY (20 sources) Codeine; Translations: [codeine] Drug Allergy 6 Pharyngeal swelling (finding), Weal (disorder) [facility] (20 sources) Latex; Translations: [LATEX] Allergy to substance 8 Swelling [facility] (17 sources) Acetaminophen Drug Allergy [address] [facility] (18 sources) HYDROcodone; Translations: [hydrocodone bitartrate] Drug Allergy [address] [facility] (20 sources) Naproxen; Translations: [naproxen] Drug Allergy 2 Hives [facility] (17 sources) Ondansetron Drug Allergy 2 Nausea [facility] (4 sources) Acetaminophen / HYDROcodone; Translations: [HYDROCODONE-ACET AMINOPHEN] Drug Allergy 6 [facility] (16 sources) Lidocaine; Translations: [lidocaine] Drug Allergy [facility] (7 sources) Morphine Drug Allergy 5 Rash [facility] (1 source) Acetaminophen Drug Allergy 5 [facility] (1 source) Codeine Drug Allergy 5 [facility] (1 source) Morphine Drug Allergy 5 [facility] (1 source) Naproxen Drug Allergy 5 [facility] (1 source) Ondansetron Drug Allergy 5 [facility] Medications Current Medications Medication Drug Class(es) Dates Sig (Normalized) Sig (Original) acetaminophen 500 mg oral tablet (12 sources) Start: 08-20-2023 Tylenol Extra Strength 500 mg oral tablet Dose : 1,000 mg = 2 tab(s), Oral, q4h, PRN as needed for pain, # 120 tab(s), 0 Refill(s) Start Date: 08/20/23 Status: Ordered Quantity: 120.0 Unit: tab(s) Repeat number: 1 acetaminophen (T YLENOL EXTRA STRENGTH ORAL) Take by mouth as needed (pain). Active amoxicillin 875 mg / clavula juan 125 mg oral tablet (20 sources) Penicillin-class Antibacterial Start: 07-14-2024 Start: 04-17-2023 End: 04-24-2023 take 1 tablet by mouth every twelve hours amoxicillin-clavulanate 875 mg-125 mg or al tablet 1 tab(s), Oral, q12h, X 7 day(s), # 14 tab(s), 0 Refill(s), 04/24/23 8:24:00 PM EST, 136 Start Date: 04/17/23 Stop Date: 04/24/23 Status: Ordered Start: 08-25-2020 End: 09-29-2020 bisacodyl 5 mg delayed release oral tablet (1 source) Stimulant Laxative Start: 07-20-2024 End: 07-21-2024 Bisacodyl (DULCOLAX) 5 mg tab Use as directed for Miralax / Sports Drink Bowel Prep Kit 4 tablet 07/20/2024 07/21/2024 Active clindamycin 150 mg oral capsule (1 source) Lincosamide Antibacterial Start: 08-25-2023 End: 09-04-2023 clindamycin 150 mg oral capsule Dose : 300 mg = 2 cap(s), Oral, q8h, X 10 day(s), # 60 cap(s), 0 Refill(s), 09/04/23 7:12:00 PM EDT, 138.1 Start Date: 08/25/23 Stop Date: 09/04/23 Status: Ordered cyclobenzaprine hydrochloride 10 mg oral tablet (20 sources) Muscle Relaxant Start: 11-30-2023 End: 12-07-2023 cyclobenzaprine 10 mg oral tablet Dose : 10 mg = 1 tab(s), Oral, TID, X 7 day(s), # 21 tab(s), 0 Refill(s), 12/07/23 11:43:00 PM EDT Start Date: 11/30/23 Stop Date: 12/07/23 Status: Ordered Start: 10-03-2023 End: 10-06-2023 cyclobenzaprine 10 mg oral t ablet Dose : 10 mg = 1 tab(s), Oral, TID, X 3 day(s), # 9 tab(s), 0 Refill(s), 10/06/23 8:57:00 PM EDT Start Date: 10/03/23 Stop Date: 10/06/23 Status: Ordered Start: 08-20-2023 Flexeril u se cyclobenzaprine Oral, PRN Muscle spasm, 0 Refill(s) Start Date: 08/20/23 Status: Ordered Start: 06-08-2023 End: 06-15-2023 cyclobenzaprine 10 mg oral t ablet Dose : 10 mg = 1 tab(s), Oral, TID, X 7 day(s), # 21 tab(s), 0 Refill(s), 06/15/23 1:17:00 AM EDT Start Date: 06/08/23 Stop Date: 06/15/23 Status: Ordered Start: 02-16-2023 End: 02-23-2023 cyclobenzaprine 10 mg oral t ablet Dose : 10 mg = 1 tab(s), Oral, TID, X 7 day(s), # 21 tab(s), 0 Refill(s), 02/23/23 6:34:00 PM EST Start Date: 02/16/23 Stop Date: 02/23/23 Status: Ordered docusate sodium 100 mg oral capsule (7 sources) Start: 05-30-2024 famotidine 40 mg oral tablet (12 sources) Histamine-2 Receptor Antagonist Start: 12-05-2023 End: 01-04-2024 take 1 tablet by mouth every twenty-four hours as needed famotidine (PEPCID) 40 mg tablet Take 1 tablet by mouth at bedtime as needed. 30 tablet 3 12/05/2023 01/04/2024 Active Start: 11-26-2022 End: 12-26-2022 Pepcid 20 mg oral tablet Dos e : 20 mg = 1 tab(s), Oral, BID, # 30 tab(s), 0 Refill(s) Start Date: 12/18/22 Status: Ordered Comment on above: Take 1 tablet by dany twice daily. gabapentin 300 mg oral capsule (1 source) Anti-epileptic Agent Start: 03-11-2024 End: 03-18-2024 gabapentin 300 mg oral capsule Dose : 300 mg = 1 cap(s), Oral, TID, # 21 cap(s), 0 Refill(s), Left elbow pain, 143 Start Date: 03/11/24 Stop Date: 03/18/24 Status: Ordered Quantity: 21.0 Unit: cap(s) Repeat number: 1 Indication: Pain in left elbow ibuprofen 600 mg oral tablet (5 sources) Nonsteroidal Anti-inflammatory Drug Start: 10-03-2023 End: 10-08-2023 ibuprofen 600 mg oral tablet Dose : 600 mg = 1 tab(s), Oral, q8h, X 5 day(s), # 15 tab(s), 0 Refill(s), 10/08/23 8:57:00 PM EDT Start Date: 10/03/23 Stop Date: 10/08/23 Status: Ordered Start: 07-11-2022 take 600 mg by mouth every eight hours as needed Ibuprofen Active 600 MG PO EVERY 8 HOURS NEEDED July 11, 2022 12:00am Start: 12-04-2021 take 600 mg by mouth four times daily Ibuprofen Active 600 MG PO 4 TIMES DAILY December 04, 2021 12:00am lidocaine 0.05 mg/mg medicated patch (8 sources) Antiarrhythmic, Amide Local Anesthetic Start: 07-11-2022 apply 1 dose topically once daily Lidocaine Active 1 PATCH TOPICAL DAILY July 11, 2022 12:19am leave on most painful area for up to 12 hrs Start: 05-29-2021 Lidoderm 5% to pical patch Apply 1 patch(es), Transdermal, Daily, # 30 patch(es), 0 Refill(s), Chronic back pain Sciatica, 131.8 Start Date: 05/29/21 Status: Ordered methocarbamol 500 mg oral tablet (1 source) Muscle Relaxant Start: 10-17-2021 take 1000 mg by mouth every six hours Methocarbamol Active 1000 MG PO EVERY 6 HOURS October 17, 2021 2:51am metoclopramide 5 mg oral tablet (1 source) Dopamine-2 Receptor Antagonist Start: 08-27-2024 naproxen 500 mg oral tablet (20 sources) Nonsteroidal Anti-inflammatory Drug Start: 08-21-2021 End: 08-31-2021 naproxen 500 mg oral tablet Dose : 500 mg = 1 tab(s), Oral, BID, PRN as needed for pain, prn pain with food, # 20 tab(s), 0 Refill(s), 08/31/21 1:28:00 EDT Start Date: 08/21/21 Stop Date: 08/31/21 Status: Ordered Start: 05-29-2021 take 1 tablet by dany th once as needed for pain, then take 1 tablet by mouth twice daily as needed for pain Anaprox-DS 550 mg oral tablet Dose : 550 mg = 1 tab(s), Oral, BID, PRN as needed for pain, # 14 tab(s), 0 Refill(s), Chronic back pain Sciatica Start Date: 05/29/21 Status: Ordered Start: 04-03-2020 End: 04-11-2020 omeprazole 40 mg delayed rel ease oral capsule (20 sources) Proton Pump Inhibitor Start: 06-30-2024 Start: 07-15-2023 End: 03-03-2024 take 1 capsule by mouth once daily omeprazole (PRILOSEC) 40 mg capsule Take 1 capsule by mouth once daily. 30 capsule 07/15/2023 03/03/2024 Discontinued (Discontinued by Patient) Start: 12-18-2022 omeprazole 20 mg oral delayed release capsule Dose : 20 mg = 1 cap(s), Oral, qDay, # 30 cap(s), 0 Refill(s) Start Date: 12/18/22 Status: Ordered Start: 09-15-2022 End: 11-20-2022 Start: 01-09-2021 End: 11-26-2022 take 2 capsules by mouth once daily omeprazole (PRILOSEC) 20 mg capsule Take 2 capsules by mouth once daily. 60 capsule 0 01/09/2021 11/26/2022 Discontinued Comment on above: Take 2 capsules by m outh once daily. ondansetron 8 mg disintegrat ing oral tablet (20 sources) Serotonin-3 Receptor Antagonist Start: 07-02-2024 Start: 04-30-2024 End: 07-02-2024 Zofran 4 mg oral tablet Dose : 4 mg = 1 tab(s), Oral, q6h, PRN Nausea/Vomiting, # 20 tab(s), 0 Refill(s), Pharmacy: [facility]/pharmacy #[id number], 170, cm, 03/05/24 11:24:00 EST, Height, kg, 04/30/24 13:13:00 EST, Dosing Weight Start Date: 04/30/24 Status: Ordered Quantity: 20.0 Unit: tab(s) Repeat number: 1 Start: 02-06-2024 End: 02-09-2024 ondansetron 4 mg oral tablet , disintegrating Dose : 4 mg = 1 tab(s), Oral, q8h, PRN as needed for nausea/vomiting, X 3 day(s), # 8 tab(s), 0 Refill(s), 02/09/24 9:03:00 PM EST Start Date: 02/06/24 Stop Date: 02/09/24 Status: Ordered Start: 06-30-2023 End: 10-20-2023 Start: 06-15-2023 End: 06-19-2023 ondansetron 4 mg oral tablet , disintegrating Dose : 4 mg = 1 tab(s), Oral, q6h, X 4 day(s), # 16 tab(s), 0 Refill(s), 06/19/23 10:41:00 PM EDT Start Date: 06/15/23 Stop Date: 06/19/23 Status: Ordered Start: 09-12-2022 End: 09-15-2022 ondansetron 4 mg oral tablet , disintegrating Dose : 4 mg = 1 tab(s), Oral, q8h, X 3 day(s), # 9 tab(s), 0 Refill(s), 09/15/22 3:27:00 EDT Start Date: 09/12/22 Stop Date: 09/15/22 Status: Ordered Start: 08-01-2022 End: 08-06-2022 Zofran 4 mg oral tablet Dose : 4 mg = 1 tab(s), Oral, q8h, PRN Nausea/Vomiting, X 5 day(s), # 12 tab(s), 0 Refill(s), 08/06/22 23:13:00 EDT, Pharmacy: [email or web address][id number], Diarrhea and vomiting Gastroenteritis, 170.2, cm, 08/01/22 21:22:00 EDT, Height Start Date: 08/01/22 Stop Date: 08/06/22 Status: Ordered Start: 03-19-2022 End: 03-24-2022 Zofran 4 mg oral tablet Dose : 4 mg = 1 tab(s), Oral, q6h, PRN Nausea/Vomiting, X 5 day(s), # 20 tab(s), 0 Refill(s), 03/24/22 14:31:00 EST Start Date: 03/19/22 Stop Date: 03/24/22 Status: Ordered Start: 12-31-2021 End: 01-05-2022 Zofran 4 mg oral tablet Dose : 4 mg = 1 tab(s), Oral, q6h, PRN Nausea/Vomiting, X 5 day(s), # 20 tab(s), 0 Refill(s), 01/05/22 17:40:00 EDT, Syncope Headache Start Date: 12/31/21 Stop Date: 01/05/22 Status: Ordered Start: 08-21-2020 End: 03-15-2021 Zofran 4 mg oral tablet Dose : 4 mg = 1 tab(s), Oral, q6h, PRN Nausea, # 10 tab(s), 0 Refill(s), Sinusitis Start Date: 08/21/20 Status: Ordered orphenadrine citrate 100 mg oral tablet (7 sources) Muscle Relaxant Start: 05-29-2021 take 1 tablet by mouth twice daily Norflex use orphenadrine Dose : 100 mg =, Oral, BID, # 14 tab(s), 0 Refill(s), Chronic back pain Sciatica Start Date: 05/29/21 Status: Ordered oxyCODONE hydrochloride 5 mg oral capsule (10 sources) Opioid Agonist Start: 07-02-2024 Start: 06-25-2024 End: 07-02-2024 polyethylene glycol 3350 10722 mg powder for oral solution (2 sources) Osmotic Laxative Start: 07-20-2024 End: 07-21-2024 polyethylene glycol 3350 17 gram/dose powder Use as directed for Miralax / Sports Drink Bowel Prep Kit 238 g 07/20/2024 07/21/2024 Active Start: 09-12-2022 End: 09-15-2022 take 17 doses by mouth three times daily MiraLax oral powder for reconstitution Dose : 17 gram(s) =, Oral, TID, X 3 day(s), # 153 gram(s), 0 Refill(s), 09/15/22 3:28:00 EDT Start Date: 09/12/22 Stop Date: 09/15/22 Status: Ordered polyethylene glycol 3350 674120 mg / potassium chloride 2970 mg / sodium bicarbonate 6740 mg / sodium chloride 5860 mg / sodium sulfate 64224 mg powder for oral solution (3 sources) Osmotic Laxative Start: 03-03-2024 End: 03-03-2024 peg 3350-Electrolytes (GOLYTELY) 236-22.74-6.74 -5.86 gram suspension Take 4,000 mL by mouth one time only for 1 dose. Refer to printed prep instructions from your provider. 4000 mL 03/03/2024 03/03/2024 Active Start: 12-05-2023 End: 12-05-2023 peg 3350-Electrolytes (GOLYT MYRON) 236-22.74-6.74 -5.86 gram suspension Indications: Chronic RLQ pain , BRBPR (bright red blood per rectum) Take 4,000 mL by mouth one time only for 1 dose. Refer to printed prep instructions from your provider. 4000 mL 12/05/2023 12/05/2023 Active Start: 11-22-2022 End: 11-22-2022 peg 3350-Electrolytes (GOLYT MYRON) 236-22.74-6.74 -5.86 gram suspension Indications: Constipation, unspecified constipation type , Abdominal pain, unspecified abdominal location Take 4,000 mL by mouth one time only for 1 dose. Refer to printed prep instructions from your provider. 4000 mL 0 11/22/2022 11/22/2022 Comment on above: Take 4,000 mL by dany th one time only for 1 dose. Refer to printed prep instructions from your provider. predniSONE 10 mg oral tablet (20 sources) Start: take 10 mg by mouth every four hours as needed Prednisone Active 10 MG PO EVERY 4 HOURS NEEDED November 26, 2021 12:00am Start: 08-25-2020 End: 09-29-2020 Start: 08-25-2020 End: 09-29-2020 take 60 mg by mouth once daily Prednisone Discontinued 60 MG PO DAILY August 25, 2020 12:00am September 29, 2020 1:54pm sertraline 25 mg oral tablet (20 sources) Serotonin Reuptake Inhibitor Start: 11-19-2023 End: 02-28-2025 Zoloft 25 mg oral tablet Dose : 12.5 mg = 0.5 tab(s), Oral, qDay, # 45 tab(s), 3 Refill(s), Pharmacy: [facility]/pharmacy #[id number], Anxiety, 170, cm, 03/05/24 11:24:00 EST, Height, kg, 03/05/24 11:24:00 EST, Dosing Weight Start Date: 03/05/24 Stop Date: 02/28/25 Status: Ordered Quantity: 45.0 Unit: tab(s) Repeat number: 4 Indications: Anxiety disorder, unspecified; Start: 11-17-2023 Zoloft 25 mg o ral tablet Dose : 25 mg = 1 tab(s), Oral, qDay, # 30 tab(s), 2 Refill(s), Pharmacy: [facility]/pharmacy #[id number], 170, cm, 11/17/23 10:06:00 EDT, Height, kg, 11/17/23 10:06:00 EDT, Dosing Weight Start Date: 11/17/23 Status: Ordered sports drink (1 source) Start: 07-20-2024 End: 07-21-2024 sports drink Use as directed for Miralax / Sports Drink Bowel Prep Kit 07/20/2024 07/21/2024 Active tiZANidine 4 mg oral tablet (1 source) Central alpha-2 Adrenergic Agonist Start: 07-11-2022 take 4 mg by mouth every eight hours Tizanidine Active 4 MG PO Q8H July 11, 2022 12:00am Completed/Discontinued Medications Medication Drug Class(es) Dates Sig (Normalized) Sig (Original) acetaminophen 325 mg / oxyCODONE hydrochloride 5 mg oral tablet (20 sources) Opioid Agonist Start: 05-30-2024 End: 07-02-2024 Start: 05-30-2024 End: 07-02-2024 Oxycodone-Acetaminophen 5-32 5 mg tablet Discontinued 1 {tbl} PO EVERY 6 HOURS NEEDED as needed for Pain 12 May 30, 2024 July 02, 2024 7:24am Start: 03-02-2024 End: 05-02-2024 Oxycodone-Acetaminophen (Per cocet) 5-325 mg tablet Discontinued 1 {tbl} PO Q8H as needed for pain 10 March 02, 2024 May 03, 2024 12:29am Start: 11-20-2022 End: 05-02-2024 Start: 11-20-2022 End: 05-02-2024 Oxycodone-Acetaminophen 5-32 5 mg tablet Discontinued 1 {tbl} PO EVERY 6 HOURS NEEDED as needed for Pain 8 October 21, 2023 May 03, 2024 12:29am Start: 11-20-2022 take 1 tablet by dany th every six hours as needed Oxycodone-Acetaminophen Active 1 TABLET PO EVERY 6 HOURS NEEDED 12 November 20, 2022 Start: 11-26-2021 take 1 tablet by dany th every six hours as needed Oxycodone-Acetaminophen Active 1 TABLET PO EVERY 6 HOURS NEEDED 12 November 26, 2021 Start: 11-18-2021 End: 11-21-2021 take 1 tablet by mouth every six hours as needed for pain Percocet 5 mg-325 mg oral tablet Dose = 1 tab(s), Oral, q6h, PRN for pain, X 3 day(s), # 8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 unspecified] Onset: 02-16-2023 10-31-2020 Episodic Sprains and strains (20 sources) Sprain of shoulder; Translations: [Unspecified sprain of unspecified shoulder joint, initial encounter] Onset: 04-28-2021 Episodic Superficial injury; contusion (20 sources) Contusion of hand; Translations: [Contusion of unspecified hand, initial encounter] Onset: 11-17-2021 Episodic Syncope (1 source) Syncope and collapse; Translations: [Syncope and collapse] Onset: 12-31-2021 Episodic Transient cerebral ischemia (20 sources) Transient cerebral ischemia; Translations: [Transient cerebral ischemic attack, unspecified] Onset: 04-08-2022 Chronic Unclassified (2 sources) First encounter by subject 11-17-2023 Viral infection (1 source) Viral disease; Translations: [Other viral agents as the cause of diseases classified elsewhere] Onset: 03-12-2021 Episodic Past or Other Problems Problem Classification Problem Date Documented Da te Episodic/Chronic Anal and rectal conditions (3 sources) Anal fissure; Translations: [Anal fissure, unspecified] Onset: 4 07-15-2023 Episodic Biliary tract disease (20 sources) Chronic cholecystitis due to cholelithiasis co-occurrent with choledocholithiasis; Translations: [Calculus of gallbladder and bile duct with chronic cholecystitis without obstruction] Onset: 8 12-02-2017 Episodic Gastrointestinal hemorrhage (20 sources) Gastrointestinal hemorrhage; Translations: [Gastrointestinal hemorrhage, unspecified] Onset: 3 Episodic Other connective tissue disease (1 source) Pain in leg, unspecified; Translations: [Pain in leg, unspecified] Onset: 4 Episodic Other injuries and conditions due to external causes (1 source) Unspecified injury of left forearm, initial encounter; Translations: [Unspecified injury of left forearm, initial encounter] Onset: 5 Episodic Results Test Name Value Interpretation Reference Range Facility Abdomen/Pelvis W IV Cont ONL Yon 08-27-2024 Abdomen/Pelvis W IV Cont ONLY Normal [facility] Absolute lymphocyte countOrd ered By: Aj Little on 08-27-2024 Lymphocytes Auto (Unsp spec) [#/Vol] 4.41 10*3/uL 0.83-4.51 [facility] Anion gap in Serum or Plasma Ordered By: Aj Little on 08-27-2024 Anion gap [Moles/Vol] 13 mmol/L 5-15 [place] Automated lymphocyte count a s percentage of total leukocytesOrdered By: Aj Little on 08-27-2024 Lymphocytes/100 WBC Auto (Unsp spec) 36.3 % 19- [facility] BUN/creatinine ratioOrdered By: Aj Little on 08-27-2024 Urea nitrogen/Creatinine [Mass ratio] 12.7 mg/mg 10- [facility] Basophil percentageOrdered B y: Aj Little on 08-27-2024 Basophils/100 WBC (Bld) 0.5 % 0-1 [facility] Bilirubin, totalOrdered By: Aj Little on 08-27-2024 Bilirubin [Mass/Vol] 0.26 mg/dL 0.00-1.30 [facility] CBC + diff autoon --2024 CBC W Auto Differential panel (Bld) [facility] CBC W/Diff, Automatedon Absolute Lymph 4.41 X10 3/uL Normal 0.83-4.51 [facility] Comment on above: Performed By: #### L 100.0100 ####[facility] [address] [place], [address] Absolute Neut 6.6 X10 3/uL Normal 2.0-7.7 [facility] Comment on above: Performed By: #### L 100.0100 ####[facility] [address] [place], [address] Basophils/100 WBC (Bld) 0.5 % Normal 0-1 [facility] Comment on above: Performed By: #### L 100.0100 ####[facility] [address] [place], [address] Eosinophils/100 WBC (Bld) 2.4 % Normal 0-5 [facility] Comment on above: Performed By: #### L 100.0100 ####[facility] [address] [place], [address] Erythrocyte distribution width (RBC) [Ratio] 13.8 % Normal 11.6-14.6 [facility] Comment on above: Performed By: #### L 100.0100 ####[facility] [address] [place], [address] Hematocrit (Bld) [Volume fraction] 40.8 % Normal 40-54 [facility] Comment on above: Performed By: #### L 100.0100 ####[facility] [address] [place], [address] Hemoglobin (Bld) [Mass/Vol] 13.4 g/dL Normal 13.0-16.5 [facility] Comment on above: Performed By: #### L 100.0100 ####[facility] [address] [place], [address] IG% 0.300 Normal 0.0-0.9 [facility] Comment on above: Result Comment: IG% - Immature Granulocytes (promyelocytes, myelocytes andmetamyelocytes) > 1% indicates that a LEFT SHIFT is Present. Performed By: #### L 100.0100 ####[facility] [address] [place], [address] Lymphocytes/100 WBC (Bld) 36.3 % Normal 19-41 [facility] Comment on above: Performed By: #### L 100.0100 ####[facility] [address] [place], [address] MCH (RBC) [Entitic mass] 26.5 pg Low 27.0-32.0 [facility] Comment on above: Performed By: #### L 100.0100 ####[facility] [address] [place], [address] MCHC (RBC) [Mass/Vol] 32.8 g/dL Normal 32-36 [place] Comment on above: Performed By: #### L 100.0100 ####[facility] [address] [place], [address] MCV (RBC) [Entitic vol] 80.6 fL Normal 80-94 [facility] Comment on above: Performed By: #### L 100.0100 ####[facility] [address] [place], [address] Monocytes/100 WBC (Bld) 6.2 % Normal 0-10 [facility] Comment on above: Performed By: #### L 100.0100 ####[facility] [address] [place], [address] Neutrophils/100 WBC (Bld) 54.3 % Normal 47-70 [facility] Comment on above: Performed By: #### L 100.0100 ####[facility] [address] [place], [address] Nucleated RBC (Bld) [#/Vol] 0 10*3/uL Normal 0-5 [facility] Comment on above: Performed By: #### L 100.0100 ####[facility] [address] [place], [address] Platelet mean volume (Bld) [Entitic vol] 9.0 fL Normal 6.2-12.0 [facility] Comment on above: Performed By: #### L 100.0100 ####[facility] [address] [place], [address] Platelets (Bld) [#/Vol] 391 10*3/uL Normal 150-450 [facility] Comment on above: Performed By: #### L 100.0100 ####[facility] [address] [place], [address] RBC (Bld) [#/Vol] 5.06 10*6/uL Normal 4.6-6.2 [facility] Comment on above: Performed By: #### L 100.0100 ####[facility] [address] [place], [address] RDW SD 39.9 fl Normal 35.1-43.9 [facility] Comment on above: Performed By: #### L 100.0100 ####[facility] [address] [place], [address] WBC (Bld) [#/Vol] 12.2 10*3/uL High 4.4-11.0 [facility] Comment on above: Performed By: #### L 100.0100 ####[facility] [address] [place], [address] Absolute Neut Normal 2.0-7.7 [facility] Comment on above: Result Comment: This specimen has been REJECTED due to Laboratory criteria:Clotted.TYRESE CHILEL has been notified of need of recollection.08/27/241739 Ani Ingris Performed By: #### L 501.2450, L500.4050, L100.0100 ####[facility] [address] [place], [address] HCT Normal 40-54 [facility] Comment on above: Result Comment: This specimen has been REJECTED due to Laboratory criteria:Clotted.TYRESE CHILEL has been notified of need of recollection.08/27/241739 Ani Ingris Performed By: #### L 501.2450, L500.4050, L100.0100 ####[facility] [address] [place], [address] HGB Normal 13.0-16.5 [facility] Comment on above: Result Comment: This specimen has been REJECTED due to Laboratory criteria:Clotted.TYRESE CHILEL has been notified of need of recollection.08/27/241739 Ani Ingris Performed By: #### L 501.2450, L500.4050, L100.0100 ####[facility] [address] [place], [address] MCH Normal 27.0-32.0 [facility] Comment on above: Result Comment: This specimen has been REJECTED due to Laboratory criteria:Clotted.TYRESE CHILEL has been notified of need of recollection.08/27/241739 Ani Ingris Performed By: #### L 501.2450, L500.4050, L100.0100 ####[facility] [address] [place], [address] MCHC Normal 32-36 [facility] Comment on above: Result Comment: This specimen has been REJECTED due to Laboratory criteria:Clotted.TYRESE CHILEL has been notified of need of recollection.08/27/241739 Ani Ingris Performed By: #### L 501.2450, L500.4050, L100.0100 ####[facility] [address] [place], [address] MCV Normal 80-94 [facility] Comment on above: Result Comment: This specimen has been REJECTED due to Laboratory criteria:Clotted.TYRESE CHILEL has been notified of need of recollection.08/27/241739 Ani Ingris Performed By: #### L 501.2450, L500.4050, L100.0100 ####[facility] [address] [place], [address] NEUT% Normal 47-70 [facility] Comment on above: Result Comment: This specimen has been REJECTED due to Laboratory criteria:Clotted.TYRESE CHILEL has been notified of need of recollection.08/27/241739 Ani Ingris Performed By: #### L 501.2450, L500.4050, L100.0100 ####[facility] [address] [place], [address] PLT Normal 150-450 [facility] Comment on above: Result Comment: This specimen has been REJECTED due to Laboratory criteria:Clotted.TYRESE CHILEL has been notified of need of recollection.08/27/241739 Ani Ingris Performed By: #### L 501.2450, L500.4050, L100.0100 ####[facility] [address] [place], [address] RBC Normal 4.6-6.2 [facility] Comment on above: Result Comment: This specimen has been REJECTED due to Laboratory criteria:Clotted.TYRESE CHILEL has been notified of need of recollection.08/27/241739 Ani Ingris Performed By: #### L 501.2450, L500.4050, L100.0100 ####[facility] [address] [place], [address] RDW CV Normal 11.6-14.6 [facility] Comment on above: Result Comment: This specimen has been REJECTED due to Laboratory criteria:Clotted.TYRESE CHILEL has been notified of need of recollection.08/27/241739 Ani Ingris Performed By: #### L 501.2450, L500.4050, L100.0100 ####[facility] [address] [place], [address] RDW SD Normal 35.1-43.9 [facility] Comment on above: Result Comment: This specimen has been REJECTED due to Laboratory criteria:Clotted.TYRESE CHILEL has been notified of need of recollection.08/27/241739 Ani Ingris Performed By: #### L 501.2450, L500.4050, L100.0100 ####[facility] [address] [place], [address] WBC Normal 4.4-11.0 [facility] Comment on above: Result Comment: This specimen has been REJECTED due to Laboratory criteria:Clotted.TYRESE CHILEL has been notified of need of recollection.08/27/241739 Ani Ingris Performed By: #### L 501.2450, L500.4050, L100.0100 ####[facility] [address] [place], [address] Carbon dioxide, total [Moles /volume] in Central venous bloodOrdered By: Aj Little on 08-27-2024 CO2 [Moles/Vol] 20.3 mmol/L Low 21.0-32.0 [facility] Chloride assayOrdered By: Rosibel Little on 08-27-2024 Chloride [Moles/Vol] 103 mmol/L 98-108 [facility] Comprehensive Metabolic Prof ilon 08-27-2024 Albumin [Mass/Vol] 3.9 g/dL Normal 3.5-5.0 [facility] Comment on above: Performed By: #### L 501.2450, L500.4050, L100.0100 ####[facility] [address] [place], [address] Albumin/Globulin [Mass ratio] 1.1 {ratio} Normal 0.9-2.4 [facility] Comment on above: Performed By: #### L 501.2450, L500.4050, L100.0100 ####[facility] [address] [place], [address] ALK PHOS 122 U/L Normal 40-129 [facility] Comment on above: Performed By: #### L 501.2450, L500.4050, L100.0100 ####[facility] [address] [place], [address] ALT [Catalytic activity/Vol] 27 U/L Normal <=46 [facility] Comment on above: Result Comment: Hemo lysis present, Results??could be affected.?? Performed By: #### L 501.2450, L500.4050, L100.0100 ####[facility] [address] [place], [address] AST [Catalytic activity/Vol] 32 U/L Normal <=37 [facility] Comment on above: Result Comment: Hemo lysis present, Results??could be affected.?? Performed By: #### L 501.2450, L500.4050, L100.0100 ####[facility] [address] [place], [address] Bilirubin [Mass/Vol] 0.26 mg/dL Normal 0.00-1.30 [facility] Comment on above: Performed By: #### L 501.2450, L500.4050, L100.0100 ####[facility] [address] [place], [address] BUN/CRE 12.7 RATIO Normal 10-20 [facility] Comment on above: Performed By: #### L 501.2450, L500.4050, L100.0100 ####[facility] [address] [place], [address] Calcium [Mass/Vol] 9.1 mg/dL Normal 7.6-11.0 [facility] Comment on above: Performed By: #### L 501.2450, L500.4050, L100.0100 ####[facility] [address] [place], [address] Chloride [Moles/Vol] 103 mmol/L Normal 98-108 [facility] Comment on above: Performed By: #### L 501.2450, L500.4050, L100.0100 ####[facility] [address] [place] [place], [address] CO2 [Moles/Vol] 20.3 mmol/L Low 21.0-32.0 [facility] Comment on above: Performed By: #### L 501.2450, L500.4050, L100.0100 ####[facility] [address] [place], [address] Creatinine [Mass/Vol] 0.86 mg/dL Normal 0.70-1.20 [facility] Comment on above: Performed By: #### L 501.2450, L500.4050, L100.0100 ####[facility] [address] [place], [address] ECRCL 148.13 ml/min Normal 50-250 [facility] Comment on above: Performed By: #### L 501.2450, L500.4050, L100.0100 ####[facility] [address] [place], [address] GAP 13 Normal 5-15 [facility] Comment on above: Performed By: #### L 501.2450, L500.4050, L100.0100 ####[facility] [address] [place], [address] GFR/1.73 sq M.predicted among non-blacks MDRD (S/P/Bld) [Vol rate/Area] 108 mL/min/{1.73_m2} Normal >60 [facility] Comment on above: Result Comment: mL/m in/1.73m2 CKD-EPI Creatinine Equation (2020) Performed By: #### L 501.2450, L500.4050, L100.0100 ####[facility] [address] [place], [address] Globulin (S) [Mass/Vol] 3.6 g/dL Normal 2.2-4.2 [facility] Comment on above: Performed By: #### L 501.2450, L500.4050, L100.0100 ####[facility] [address] [place], [address] Glucose [Mass/Vol] 87 mg/dL Normal 70-99 [facility] Comment on above: Performed By: #### L 501.2450, L500.4050, L100.0100 ####[facility] [address] [place], [address] Potassium [Moles/Vol] 4.5 mmol/L Normal 3.3-5.1 [facility] Comment on above: Result Comment: Hemo lysis present, Results??could be affected.?? Performed By: #### L 501.2450, L500.4050, L100.0100 ####[facility] [address] [place], [address] Sodium [Moles/Vol] 135 mmol/L Normal 133-145 [facility] Comment on above: Performed By: #### L 501.2450, L500.4050, L100.0100 ####[facility] [address] [place], [address] T PROT 7.4 g/dL Normal 5.9-8.4 [facility] Comment on above: Performed By: #### L 501.2450, L500.4050, L100.0100 ####[facility] [address] [place], [address] Urea nitrogen [Mass/Vol] 11 mg/dL Normal 4-19 [facility] Comment on above: Performed By: #### L 501.2450, L500.4050, L100.0100 ####[facility] [address] [place], [address] Emergency Department Summary on 08-27-2024 Emergency Department Summary Normal [facility] Eosinophil percentageOrdered By: Aj Little on 08-27-2024 Eosinophils/100 WBC (Bld) 2.4 % 0-5 [facility] Erythrocyte distribution wid th ratioOrdered By: Aj Little on 08-27-2024 Erythrocyte distribution width (RBC) [Ratio] 13.8 % 11.6-14.6 [facility] Erythrocyte distribution wid th standard deviationOrdered By: Aj Little on 08-27-2024 Erythrocyte distribution width (RBC) [Ratio] 39.9 fl 35.1-43.9 [facility] Glomerular filtration rate ( GFR) estimation/1.73 sq m using serum, plasma, or whole bOrdered By: Aj Little on 08-27-2024 GFR/1.73 sq M.predicted among non-blacks MDRD (S/P/Bld) [Vol rate/Area] 108 mL/min/{1.73_m2} >60 [facility] Hematocrit Auto (Bld) [Volum e fraction]Ordered By: Aj Little on 08-27-2024 Hematocrit (Bld) [Volume fraction] 40.8 % 40-54 [facility] Hemoglobin measurementOrdere d By: Aj Little on 08-27-2024 Hemoglobin (Bld) [Mass/Vol] 13.4 g/dL 13.0-16.5 [facility] Immature granulocytes/100 WB C Auto (Bld)Ordered By: Aj Little on 08-27-2024 Immature granulocytes/100 WBC (Bld) 0.300 % 0.0-0.9 [facility] Lipaseon 08-27-2024 Lipase [Catalytic activity/Vol] 19 U/L Normal 13-75 [facility] Comment on above: Result Comment: Umer velásquez note:LIPASE revised reference range effective 22.New Lipase methodology. Expected to produce lower valuesthan the previous assay method.NEW Reference Range: 13 - 75 U/L Performed By: #### L 501.2450, L500.4050, L100.0100 ####[facility] [address] [place], [address] MCV (mean corpuscular volume ) determinationOrdered By: Aj Little on 08-27-2024 MCV (RBC) [Entitic vol] 80.6 fL 80-94 [facility] Mean corpuscular hemoglobin (MCH) determinationOrdered By: Aj Little on 08-27-2024 MCH (RBC) [Entitic mass] 26.5 pg Low 27.0-32.0 [facility] Monocyte percentageOrdered B y: Aj Little on 08-27-2024 Monocytes/100 WBC (Bld) 6.2 % 0-10 [facility] Neutrophil percentageOrdered By: Aj Little on 08-27-2024 Neutrophils/100 WBC (Bld) 54.3 % 47-70 [facility] No Panel InformationOrdered By: Aj Little on 08-27-2024 32 U/L <38 [facility] Platelet countOrdered By: Rosibel Little on 08-27-2024 Platelets (Bld) [#/Vol] 391 10*3/uL 150-450 [facility] Potassium measurement (mass/ volume)Ordered By: Aj Little on 08-27-2024 Potassium (Unsp spec) [Mass/Vol] 4.5 mmol/L 3.3-5.1 [facility] RBC Auto (Bld) [#/Vol]Ordere d By: Aj Little on 08-27-2024 RBC (Bld) [#/Vol] 5.06 10*6/uL 4.6-6.2 [facility] Serum creatinine measurement (mass/volume)Ordered By: Aj Little on 08-27-2024 Creatinine [Mass/Vol] 0.86 mg/dL 0.70-1.20 [place] Serum globulin measurementOr dered By: Aj Little on 08-27-2024 Globulin (S) [Mass/Vol] 3.6 g/dL 2.2-4.2 [facility] Serum glucose measurement (m ass/volume)Ordered By: Aj Little on 08-27-2024 Glucose [Mass/Vol] 87 mg/dL 70-99 [facility] Serum or plasma alanine vanegas otransferase (ALT) measurementOrdered By: Aj Little on 08-27-2024 ALT [Catalytic activity/Vol] 27 U/L <47 [facility] Serum or plasma albumin paramjit urement (mass/volume)Ordered By: Aj Little on 08-27-2024 Albumin [Mass/Vol] 3.9 g/dL 3.5-5.0 [facility] Serum or plasma albumin/glob ulin mass ratioOrdered By: Aj Little on 08-27-2024 Albumin/Globulin [Mass ratio] 1.1 {ratio} 0.9-2.4 [facility] Serum or plasma alkaline thomas sphatase measurementOrdered By: Aj Little on 08-27-2024 ALP [Catalytic activity/Vol] 122 U/L 40-129 [facility] Serum or plasma calcium paramjit urement (mass/volume)Ordered By: Aj Little on 08-27-2024 Calcium [Mass/Vol] 9.1 mg/dL 7.6-11.0 [facility] Serum or plasma urea nitroge n measurement (mass/volume)Ordered By: Aj Little on 08-27-2024 Urea nitrogen [Mass/Vol] 11 mg/dL 4-19 [facility] Sodium levelOrdered By: Derik Little on 08-27-2024 Sodium [Moles/Vol] 135 mmol/L 133-145 [facility] Stool Occult Blood iFOBon STOB Negative Normal [facility] Comment on above: Performed By: #### M 100.7900 ####[facility] [address] [place], [place], [id number] Stool gastrointestinal hemog lobin detection by immunologic methodOrdered By: Aj Little on 08-27-2024 Lower GI hemoglobin IA Ql (Stl) [facility] Total proteinOrdered By: Jamie Little on 08-27-2024 Protein [Mass/Vol] 7.4 g/dL 5.9-8.4 [facility] White blood cell (WBC) count Ordered By: Aj Little on 08-27-2024 WBC (Bld) [#/Vol] 12.2 10*3/uL High 4.4-11.0 [facility] Emergency Department Summary on 08-07-2024 Emergency Department Summary Normal [facility] CNOVon 07-20-2024 CNOV Office Visit (GENSWS ) BARRETT LOPEZ ([id number]) 1975 Date Time Provider Department 07/20/24 9:00 AM ASIA SALGADO During your visit today, we recorded the following information about you: Temperature Pulse Blood pressure Weight 98 degrees 91/minute 130/82 149.4 kg Height 1.702 m Asia Salgado APRN.CNP 07/20/2024 11:51 AM Addendum HISTORY AND PHYSICAL Barrett Lopez : 1975 REFERRING PHYSICIAN: SELF CHIEF COMPLAINT: Patient presents with: Consult: ER follow up diverticulitis HPI: Barrett is a 49 year old male referred for endoscopy. Barrett notes recent diverticulitis. Barrett presented to [facility] ED on 07/02 with LLQ pain- was dx with uncomplicated diverticulitis, was prescribed flagyl AND cipro. He presented on 07/14 for the same complaint. CT showed improving diverticulitis. Pt noted he was unable to tolerate PO and pain was uncontrolled- he was given IV zosyn AND d/c'd with a 7 day course of augmentin. CT Abd/Pelv w/ IV IMPRESSION: Minimal residual acute uncomplicated diverticulitis of the mid sigmoid colon, significantly improved from recent prior. Barrett notes abdominal pain. -12/01 RLQ-stabbing pain -also c/o LUQ pain that he received steroid injection in a couple of weeks ago with no relief. Barrett denies melena. Barrett denies bright red blood per rectum. Barrett denies hemorrhoids. Barrett has attempted colonoscopy twice in the last year with 2 unsuccessful bowel preps. He notes that he can not tolerate Golytely as it makes him vomit. The last time I met with Barrett I started him on Carafate AND omperazole for LUQ pain. He notes that has helped. He also notes he has cut back on mountain dew, coffee- is drinking tea, isn't eating lettuce anymore, and is feeling much better. He can't understand why his BMI is increasing. Hx of colectomy- sigmoid d/t diverticulitis Hx of cholecystectomy Hx of appendectomy Barrett has undergone prior endoscopy. Last colonoscopy was 03/[address] Andersen at [facility]. Sedation:Fentanyl 100 micrograms IV, Midazolam 5 mg IV, Diphenhydramine 50 mg IV Impression: - Preparation of the colon was fair. - Stool in the entire examined colon. - Patent end-to-end colo-rectal anastomosis, characterized by healthy appearing mucosa. - No specimens collected. Current Outpatient Medications Medication Sig amoxicillin-clavulanate potassium (AUGMENTIN) 875-125 mg per tablet Take 1 tablet by mouth every 12 hours. sucralfate (CARAFATE) 1 gram tablet Take 1 g by mouth three times a day. acetaminophen (TYLENOL EXTRA STRENGTH ORAL) Take by mouth as needed (pain). omeprazole (PRILOSEC) 40 mg capsule Take 1 capsule by mouth two times a day. ZOLOFT 25 mg tablet Take 25 mg by mouth once daily. cyclobenzaprine (FLEXERIL) 10 mg tablet Take by mouth once daily. polyethylene glycol 3350 17 gram/dose powder Use as directed for Miralax / Sports Drink Bowel Prep Kit sports drink Use as directed for Miralax / Sports Drink Bowel Prep Kit Bisacodyl (DULCOLAX) 5 mg tab Use as directed for Miralax / Sports Drink Bowel Prep Kit No current facility-administered medications for this visit. 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 COLONOSCOPY FLX DX W/COLLJ SPEC WHEN PFRMD 04/03/2021 repeat in 1 year-due to poor bowel prep EGD 11/26/2022 EGD 12/08/2023 ESOPHAGOGASTRODUODENOSC OPY TRANSORAL DIAGNOSTIC 04/03/2018 EGD ESOPHAGOGASTRODUODENOSC OPY TRANSORAL DIAGNOSTIC 01/16/2021 ESOPHAGOGASTRODUODENOSC OPY TRANSORAL DIAGNOSTIC 04/03/2021 FOOT SURGERY HX Bilateral 1991 preair of broken feet FRACTURE SURGERY HAND SURGERY HX Left 2006 repair of fracture KNEE SURGERY HX Right 2016 LAPS SURG CHOLECYSTECTOMY W/CHOLANGIOGRAPHY 12/08/2017 PAST SURGICAL HISTORY OF 04/2007 fracture/Deviated septum TONSILLECTOMY AND ADENOIDECTOMY AGE 14/> 2011 T/A (over age 14 years) TONSILLECTOMY HX FAMILY HISTORY Problem Relation Age of Onset Diabetes Mother Hypertension Mother Cancer Mother lung and brain Hearing Loss Maternal Grandmother Diabetes Maternal Grandmother Heart Maternal Grandfather AR other (unknown) Father brain aneurysm? Social (more content not included)... Normal [facility] ALP [Catalytic activity/Vol] Ordered By: Sebastian Puri on 07-14-2024 Serum or plasma alkaline phosphatase measurement 103 U/L 40-129 [facility] Abdomen/Pelvis W IV Cont ONL Yon 07-14-2024 Abdomen/Pelvis W IV Cont ONLY Normal [facility] Absolute lymphocyte countOrd ered By: Sebastian Puri on 07-14-2024 Lymphocytes Auto (Unsp spec) [#/Vol] 3.36 10*3/uL 0.83-4.51 [facility] Absolute neutrophil countOrd ered By: Sebastian Puri on 07-14-2024 Absolute neutrophil count 6.8 X10^3/uL 2.0-7.7 [facility] Albumin [Mass/Vol]Ordered By : Sebastian Puri on 07-14-2024 Serum or plasma albumin measurement (mass/volume) 3.9 g/dL 3.5-5.0 [facility] Albumin/Globulin [Mass ratio ]Ordered By: Sebastian Puri on 07-14-2024 Serum or plasma albumin/globulin mass ratio 1.1 RATIO 0.9-2.4 [facility] Anion gap [Moles/Vol]Ordered By: Sebastiancathie Puri on 07-14-2024 Anion gap in Serum or Plasma 12 5- [facility] Anion gap in Serum or Plasma Ordered By: Sebastiancathie Puri on 07-14-2024 Anion gap [Moles/Vol] 12 mmol/L 5- [place] Automated lymphocyte count a s percentage of total leukocytesOrdered By: Sebastian Puri on 07-14-2024 Lymphocytes/100 WBC Auto (Unsp spec) 30.5 % 19-41 [facility] BUN/creatinine ratioOrdered By: Sebastian Puri on 07-14-2024 Urea nitrogen/Creatinine [Mass ratio] 15.9 mg/mg 10-20 [facility] BUN/creatinine ratio 15.9 RATIO 10-20 [facility] Bacteria LM.HPF (Urine sed) [#/Area]Ordered By: Sebastian Puri on 07-14-2024 Urine sediment bacteria count by microscopy (number/high power field) RARE /hpf None Seen [facility] Basophil percentageOrdered B y: Sebastian Puri on 07-14-2024 Basophils/100 WBC (Bld) 0.5 % 0-1 [facility] Basophil percentage 0.5 % 0-1 [facility] Bilirubin Test strip Ql (U)O rdered By: Sebastian Puri on 07-14-2024 Bilirubin Ql (U) Negative Negative [facility] Bilirubin, totalOrdered By: Sebastian Puri on 07-14-2024 Bilirubin [Mass/Vol] 0.27 mg/dL 0.00-1.30 [facility] Bilirubin, total 0.27 mg/dL 0.00-1.30 [facility] CBC W/Diff, Automatedon 06-23 Absolute Lymph 3.36 X10 3/uL Normal 0.83-4.51 [facility] Comment on above: Performed By: #### L 500.4050, L503.6005, L501.2450, L100.0100 ####[facility] [address] [place], [address] Absolute Neut 6.8 X10 3/uL Normal 2.0-7.7 [facility] Comment on above: Performed By: #### L 500.4050, L503.6005, L501.2450, L100.0100 ####[facility] [address] [place], [address] Basophils/100 WBC (Bld) 0.5 % Normal 0-1 [facility] Comment on above: Performed By: #### L 500.4050, L503.6005, L501.2450, L100.0100 ####[facility] [address] [place], [address] Eosinophils/100 WBC (Bld) 2.1 % Normal 0-5 [facility] Comment on above: Performed By: #### L 500.4050, L503.6005, L501.2450, L100.0100 ####[facility] [address] [place], [address] Erythrocyte distribution width (RBC) [Ratio] 13.5 % Normal 11.6-14.6 [facility] Comment on above: Performed By: #### L 500.4050, L503.6005, L501.2450, L100.0100 ####[facility] [address] [place], [address] Hematocrit (Bld) [Volume fraction] 41.4 % Normal 40-54 [facility] Comment on above: Performed By: #### L 500.4050, L503.6005, L501.2450, L100.0100 ####[facility] [address] [place], [address] Hemoglobin (Bld) [Mass/Vol] 13.4 g/dL Normal 13.0-16.5 [facility] Comment on above: Performed By: #### L 500.4050, L503.6005, L501.2450, L100.0100 ####[facility] [address] [place], [address] IG% 0.500 Normal 0.0-0.9 [facility] Comment on above: Result Comment: IG% - Immature Granulocytes (promyelocytes, myelocytes andmetamyelocytes) > 1% indicates that a LEFT SHIFT is Present. Performed By: #### L 500.4050, L503.6005, L501.2450, L100.0100 ####[facility] [address] [place], [address] Lymphocytes/100 WBC (Bld) 30.5 % Normal 19-41 [facility] Comment on above: Performed By: #### L 500.4050, L503.6005, L501.2450, L100.0100 ####[facility] [address] [place], [address] MCH (RBC) [Entitic mass] 26.5 pg Low 27.0-32.0 [facility] Comment on above: Performed By: #### L 500.4050, L503.6005, L501.2450, L100.0100 ####[facility] [address] [place], [address] MCHC (RBC) [Mass/Vol] 32.4 g/dL Normal 32-36 [place] Comment on above: Performed By: #### L 500.4050, L503.6005, L501.2450, L100.0100 ####[facility] [address] [place], [address] MCV (RBC) [Entitic vol] 82.0 fL Normal 80-94 [facility] Comment on above: Performed By: #### L 500.4050, L503.6005, L501.2450, L100.0100 ####[facility] [address] [place], [address] Monocytes/100 WBC (Bld) 5.0 % Normal 0-10 [facility] Comment on above: Performed By: #### L 500.4050, L503.6005, L501.2450, L100.0100 ####[facility] [address] [place], [address] Neutrophils/100 WBC (Bld) 61.4 % Normal 47-70 [facility] Comment on above: Performed By: #### L 500.4050, L503.6005, L501.2450, L100.0100 ####[facility] [address] [place], [address] Nucleated RBC (Bld) [#/Vol] 0 10*3/uL Normal 0-5 [facility] Comment on above: Performed By: #### L 500.4050, L503.6005, L501.2450, L100.0100 ####[facility] [address] [place], [address] Platelet mean volume (Bld) [Entitic vol] 9.6 fL Normal 6.2-12.0 [facility] Comment on above: Performed By: #### L 500.4050, L503.6005, L501.2450, L100.0100 ####[facility] [address] [place], [address] Platelets (Bld) [#/Vol] 400 10*3/uL Normal 150-450 [facility] Comment on above: Performed By: #### L 500.4050, L503.6005, L501.2450, L100.0100 ####[facility] [address] [place], [address] RBC (Bld) [#/Vol] 5.05 10*6/uL Normal 4.6-6.2 [facility] Comment on above: Performed By: #### L 500.4050, L503.6005, L501.2450, L100.0100 ####[facility] [address] [place], [address] RDW SD 39.8 fl Normal 35.1-43.9 [facility] Comment on above: Performed By: #### L 500.4050, L503.6005, L501.2450, L100.0100 ####[facility] [address] [place], [address] WBC (Bld) [#/Vol] 11.0 10*3/uL Normal 4.4-11.0 [facility] Comment on above: Performed By: #### L 500.4050, L503.6005, L501.2450, L100.0100 ####[facility] [address] [place], [address] Calcium [Mass/Vol]Ordered By : Sebastian Puri on 07-14-2024 Serum or plasma calcium measurement (mass/volume) 8.8 mg/dL 7.6-11.0 [facility] Carbon dioxide, total [Moles /volume] in Central venous bloodOrdered By: Sebastian Puri on 07-14-2024 CO2 [Moles/Vol] 23.3 mmol/L 21.0-32.0 [facility] Carbon dioxide, total [Moles/volume] in Central venous blood 23.3 mmol/L 21.0-32.0 [facility] Chloride assayOrdered By: Jamari Puri on 07-14-2024 Chloride [Moles/Vol] 102 mmol/L 98-108 [facility] Chloride assay 102 mmol/L 98-108 [facility] Clarity (U)Ordered By: Sebastian Puri on 07-14-2024 Urine clarity Clear Clear [facility] Color (U)Ordered By: Sebastian Schroeder on 07-14-2024 Urine color determination Yellow Yellow [facility] Comprehensive Metabolic Prof ilon 07-14-2024 Albumin [Mass/Vol] 3.9 g/dL Normal 3.5-5.0 [facility] Comment on above: Performed By: #### L 500.4050, L503.6005, L501.2450, L100.0100 ####[facility] [address] [place], [address] Albumin/Globulin [Mass ratio] 1.1 {ratio} Normal 0.9-2.4 [facility] Comment on above: Performed By: #### L 500.4050, L503.6005, L501.2450, L100.0100 ####[facility] [address] [place], [address] ALK PHOS 103 U/L Normal 40-129 [facility] Comment on above: Performed By: #### L 500.4050, L503.6005, L501.2450, L100.0100 ####[facility] [address] [place], [address] ALT [Catalytic activity/Vol] 24 U/L Normal <=46 [facility] Comment on above: Performed By: #### L 500.4050, L503.6005, L501.2450, L100.0100 ####[facility] [address] [place], [address] AST [Catalytic activity/Vol] 24 U/L Normal <=37 [facility] Comment on above: Result Comment: Hemo lysis present, Results??could be affected.?? Performed By: #### L 500.4050, L503.6005, L501.2450, L100.0100 ####[facility] [address] [place], [address] Bilirubin [Mass/Vol] 0.27 mg/dL Normal 0.00-1.30 [facility] Comment on above: Performed By: #### L 500.4050, L503.6005, L501.2450, L100.0100 ####[facility] [address] [place], [address] BUN/CRE 15.9 RATIO Normal 10-20 [facility] Comment on above: Performed By: #### L 500.4050, L503.6005, L501.2450, L100.0100 ####[facility] [address] [place], [address] Calcium [Mass/Vol] 8.8 mg/dL Normal 7.6-11.0 [facility] Comment on above: Performed By: #### L 500.4050, L503.6005, L501.2450, L100.0100 ####[facility] [address] [place], [address] Chloride [Moles/Vol] 102 mmol/L Normal 98-108 [facility] Comment on above: Performed By: #### L 500.4050, L503.6005, L501.2450, L100.0100 ####[facility] [address] [place], [address] CO2 [Moles/Vol] 23.3 mmol/L Normal 21.0-32.0 [facility] Comment on above: Performed By: #### L 500.4050, L503.6005, L501.2450, L100.0100 ####[facility] [address] [place], [address] Creatinine [Mass/Vol] 0.91 mg/dL Normal 0.70-1.20 [place] Comment on above: Performed By: #### L 500.4050, L503.6005, L501.2450, L100.0100 ####[facility] [address] [place], [address] ECRCL 140.89 ml/min Normal 50-250 [facility] Comment on above: Performed By: #### L 500.4050, L503.6005, L501.2450, L100.0100 ####[facility] [address] [place], [address] GAP 12 Normal 5-15 [facility] Comment on above: Performed By: #### L 500.4050, L503.6005, L501.2450, L100.0100 ####[facility] [address] [place], [address] GFR/1.73 sq M.predicted among non-blacks MDRD (S/P/Bld) [Vol rate/Area] 104 mL/min/{1.73_m2} Normal >60 [facility] Comment on above: Result Comment: mL/m in/1.73m2 CKD-EPI Creatinine Equation (2020) Performed By: #### L 500.4050, L503.6005, L501.2450, L100.0100 ####[facility] [address] [place], [address] Globulin (S) [Mass/Vol] 3.6 g/dL Normal 2.2-4.2 [facility] Comment on above: Performed By: #### L 500.4050, L503.6005, L501.2450, L100.0100 ####[facility] [address] [place], [address] Glucose [Mass/Vol] 95 mg/dL Normal 70-99 [facility] Comment on above: Performed By: #### L 500.4050, L503.6005, L501.2450, L100.0100 ####[facility] [address] [place], [address] Potassium [Moles/Vol] 4.3 mmol/L Normal 3.3-5.1 [place] Comment on above: Result Comment: Hemo lysis present, Results??could be affected.?? Performed By: #### L 500.4050, L503.6005, L501.2450, L100.0100 ####[facility] [address] [place], [address] Sodium [Moles/Vol] 137 mmol/L Normal 133-145 [facility] Comment on above: Performed By: #### L 500.4050, L503.6005, L501.2450, L100.0100 ####[facility] [address] [place], [address] T PROT 7.5 g/dL Normal 5.9-8.4 [facility] Comment on above: Performed By: #### L 500.4050, L503.6005, L501.2450, L100.0100 ####[facility] [address] [place], [address] Urea nitrogen [Mass/Vol] 15 mg/dL Normal 4-19 [facility] Comment on above: Performed By: #### L 500.4050, L503.6005, L501.2450, L100.0100 ####[facility] [address] [place], [address] Consultation - Surgicalon Consultation - Surgical Normal [facility] Creatinine [Mass/Vol]Ordered By: Sebastian Puri on 07-14-2024 Serum creatinine measurement (mass/volume) 0.91 mg/dL 0.70-1.20 [facility] Emergency Department Summary on 07-14-2024 Emergency Department Summary Normal [facility] Eosinophil percentageOrdered By: Sebastian Puri on 07-14-2024 Eosinophils/100 WBC (Bld) 2.1 % 0-5 [facility] Eosinophil percentage 2.1 % 0-5 [place] Erythrocyte distribution wid th (RBC) [Ratio]Ordered By: Sebastian Puri on 07-14-2024 Erythrocyte distribution width ratio 13.5 % 11.6-14.6 [facility] Erythrocyte distribution width standard deviation 39.8 fl 35.1-43.9 [facility] Erythrocyte distribution wid th ratioOrdered By: Sebastian Puir on 07-14-2024 Erythrocyte distribution width (RBC) [Ratio] 13.5 % 11.6-14.6 [facility] Erythrocyte distribution wid th standard deviationOrdered By: Sebastian Ni on 07-14-2024 Erythrocyte distribution width (RBC) [Ratio] 39.8 fl 35.1-43.9 [facility] Estimation of creatinine poonam aranceOrdered By: Sebastian Puri on 07-14-2024 Estimation of creatinine clearance 140.89 ml/min 50-250 [facility] GFR/1.73 sq M.predicted kelsi g non-blacks MDRD (S/P/Bld) [Vol rate/Area]Ordered By: Sebastian Puri on 07-14-2024 Glomerular filtration rate (GFR) estimation/1.73 sq m using serum, plasma, or whole b 104 >60 [facility] Gastroenterology Visit Repor ton 07-14-2024 Gastroenterology Visit Report Normal [facility] Glomerular filtration rate ( GFR) estimation/1.73 sq m using serum, plasma, or whole bOrdered By: Sebastian Puri on 07-14-2024 GFR/1.73 sq M.predicted among non-blacks MDRD (S/P/Bld) [Vol rate/Area] 104 mL/min/{1.73_m2} >60 [facility] Glucose [Mass/Vol]Ordered By : Sebastian Puri on 07-14-2024 Serum glucose measurement (mass/volume) 95 mg/dL 70-99 [facility] Hematocrit Auto (Bld) [Volum e fraction]Ordered By: Sebastian Puri on 07-14-2024 Hematocrit (Bld) [Volume fraction] 41.4 % 40-54 [facility] Automated blood hematocrit (percentage) 41.4 % 40-54 [facility] Hemoglobin measurementOrdere d By: Sebastian Puri on 07-14-2024 Hemoglobin (Bld) [Mass/Vol] 13.4 g/dL 13.0-16.5 [facility] Hemoglobin measurement 13.4 g/dL 13.0-16.5 [facility] Immature granulocytes/100 WB C Auto (Bld)Ordered By: Sebastian Puri on 07-14-2024 Immature granulocytes/100 WBC (Bld) 0.500 % 0.0-0.9 [facility] Automated immature granulocyte percentage 0.500 % 0.0-0.9 [facility] Ketones Test strip Ql (U)Ord ered By: Sebastian Puri on 07-14-2024 Ketones Ql (U) Negative Negative [facility] Lactic Acidon 07-14-2024 Lactate [Moles/Vol] 1.5 mmol/L Normal 0.0-2.0 [facility] Comment on above: Order Comment: Y Performed By: #### L 500.4050, L503.6005, L501.2450, L100.0100 ####[facility] [address] [place], [address] Lactic acid measurementOrder ed By: Sebastian Puri on 07-14-2024 Lactic acid measurement 1.5 mmol/L 0.0-2.0 [facility] Leukocyte esterase Test stri p Ql (U)Ordered By: Sebastian Puri on 07-14-2024 Urine leukocyte esterase detection by dipstick 25 /ul High Negative [facility] Lipaseon 07-14-2024 Lipase [Catalytic activity/Vol] 19 U/L Normal 13-75 [facility] Comment on above: Result Comment: Umer velásquez note:LIPASE revised reference range effective 22.New Lipase methodology. Expected to produce lower valuesthan the previous assay method.NEW Reference Range: 13 - 75 U/L Performed By: #### L 500.4050, L503.6005, L501.2450, L100.0100 ####[facility] [address] [place], [address] Lipase measurementOrdered By : Sebastian Puri on 07-14-2024 Lipase measurement 19 U/L 13-75 [facility] Lymphocytes Auto (Unsp spec) [#/Vol]Ordered By: Sebastian Puri on 07-14-2024 Absolute lymphocyte count 3.36 X10^3/uL 0.83-4.51 [facility] Lymphocytes/100 WBC Auto (Un sp spec)Ordered By: Sebastian Puri on 07-14-2024 Automated lymphocyte count as percentage of total leukocytes 30.5 % 19-41 [facility] MCV (RBC) [Entitic vol]Order ed By: Sebastian Puri on 07-14-2024 MCV (mean corpuscular volume) determination 82.0 fL 80-94 [facility] MCV (mean corpuscular volume ) determinationOrdered By: Sebastian Puri on 07-14-2024 MCV (RBC) [Entitic vol] 82.0 fL 80-94 [facility] Mean corpuscular hemoglobin (MCH) determinationOrdered By: Sebastiancathie Puri on 07-14-2024 MCH (RBC) [Entitic mass] 26.5 pg Low 27.0-32.0 [facility] Mean corpuscular hemoglobin (MCH) determination 26.5 pg Low 27.0-32.0 [facility] Mean corpuscular hemoglobin concentration (MCHC) determinationOrdered By: Sebastian Puri on 07-14-2024 Mean corpuscular hemoglobin concentration (MCHC) determination 32.4 g/dL 32-36 [facility] Mean platelet volume determi nationOrdered By: Sebastian Puri on 07-14-2024 Mean platelet volume determination 9.6 fl 6.2-12.0 [facility] Microscopic analysis of urin e for red blood cells (RBC)Ordered By: Sebastian Puri on 07-14-2024 Microscopic analysis of urine for red blood cells (RBC) 0-5 SEEN /hpf 0-5 [facility] Monocyte percentageOrdered B y: Sebastian Puri on 07-14-2024 Monocytes/100 WBC (Bld) 5.0 % 0-10 [facility] Monocyte percentage 5.0 % 0-10 [facility] Mucus LM Ql (Urine sed)Order ed By: Sebastian Puri on 07-14-2024 Mucus Ql (Urine sed) 0 SEEN /hpf [place] Neutrophil percentageOrdered By: Sebastian Puri on 07-14-2024 Neutrophils/100 WBC (Bld) 61.4 % 47-70 [facility] Neutrophil percentage 61.4 % 47-70 [place] Nitrite Test strip Ql (U)Ord ered By: Sebastian Puri on 07-14-2024 Nitrite Ql (U) Negative Negative [facility] Nucleated red blood cell per centageOrdered By: Sebastian Puri on 07-14-2024 Nucleated red blood cell percentage 0 % 0-5 [facility] Platelet countOrdered By: Jamari Puri on 07-14-2024 Platelets (Bld) [#/Vol] 400 10*3/uL 150-450 [facility] Platelet count 400 K/mm3 150-450 [facility] Potassium (Unsp spec) [Mass/ Vol]Ordered By: Sebastian Puri on 07-14-2024 Potassium measurement (mass/volume) 4.3 mmol/L 3.3-5.1 [facility] Potassium measurement (mass/ volume)Ordered By: Sebastian Puri on 07-14-2024 Potassium (Unsp spec) [Mass/Vol] 4.3 mmol/L 3.3-5.1 [facility] Protein (U) [Mass/Vol]Ordere d By: Sebastian Puri on 07-14-2024 Urine protein measurement (mass/volume) 14.8 mg/dL High 0.0-12.0 [facility] Protein Test strip Ql (U)Ord ered By: Sebastian Puri on 07-14-2024 Protein Ql (U) TNP [facility] Urine protein assay by test strip, semi-quantitative [facility] Protein, Urine (Random)on Protein (U) [Mass/Vol] 14.8 mg/dL High 0.0-12.0 [facility] Comment on above: Performed By: #### L 501.1930 ####[facility] [address] [place], [place], [address] RBC Auto (Bld) [#/Vol]Ordere d By: Sebastian Puri on 07-14-2024 RBC (Bld) [#/Vol] 5.05 10*6/uL 4.6-6.2 [facility] Automated blood erythrocyte count 5.05 M/mm3 4.6-6.2 [facility] Serum creatinine measurement (mass/volume)Ordered By: Sebastian Puri on 07-14-2024 Creatinine [Mass/Vol] 0.91 mg/dL 0.70-1.20 [place] Serum globulin measurementOr dered By: Sebastian Puri on 07-14-2024 Globulin (S) [Mass/Vol] 3.6 g/dL 2.2-4.2 [facility] Serum globulin measurement 3.6 g/dL 2.2-4.2 [facility] Serum glucose measurement (m ass/volume)Ordered By: Sebastian Puri on 07-14-2024 Glucose [Mass/Vol] 95 mg/dL 70-99 [facility] Serum or plasma alanine vanegas otransferase (ALT) measurementOrdered By: Sebastian Puri on 07-14-2024 ALT [Catalytic activity/Vol] 24 U/L <47 [facility] Serum or plasma alanine aminotransferase (ALT) measurement 24 U/L <38 [facility] Serum or plasma albumin paramjit urement (mass/volume)Ordered By: Sebastian Ni on 07-14-2024 Albumin [Mass/Vol] 3.9 g/dL 3.5-5.0 [facility] Serum or plasma albumin/glob ulin mass ratioOrdered By: Sebastian Puri on 07-14-2024 Albumin/Globulin [Mass ratio] 1.1 {ratio} 0.9-2.4 [facility] Serum or plasma alkaline thomas sphatase measurementOrdered By: Sebastian Puri on 07-14-2024 ALP [Catalytic activity/Vol] 103 U/L 40-129 [facility] Serum or plasma calcium paramjit urement (mass/volume)Ordered By: Sebastian Ni on 07-14-2024 Calcium [Mass/Vol] 8.8 mg/dL 7.6-11.0 [facility] Serum or plasma urea nitroge n measurement (mass/volume)Ordered By: Sebastian Puri on 07-14-2024 Urea nitrogen [Mass/Vol] 15 mg/dL 4-19 [facility] Sodium levelOrdered By: Neal Puri on 07-14-2024 Sodium [Moles/Vol] 137 mmol/L 133-145 [facility] Sodium level 137 mmol/L 133-145 [facility] Specific gravity (U) [Rel de nsity]Ordered By: Sebastian Puri on 07-14-2024 Urine specific gravity measurement 1.010 1.002-1.030 [facility] Squamous epithelial cells de tection in urine sediment by light microscopyOrdered By: Sebastian Puri on 07-14-2024 Epithelial cells.squamous LM Ql (Urine sed) 0 SEEN /hpf 0-5 [facility] Squamous epithelial cells detection in urine sediment by light microscopy 0 SEEN /hpf [facility] Total proteinOrdered By: Cory Puri on 07-14-2024 Protein [Mass/Vol] 7.5 g/dL 5.9-8.4 [facility] Total protein 7.5 g/dL 5.9-8.4 [facility] Urea nitrogen [Mass/Vol]Orde red By: Sebastian Puri on 07-14-2024 Serum or plasma urea nitrogen measurement (mass/volume) 15 mg/dL 4-19 [facility] Urinalysis, Completeon 07-14 BACTERIA RARE Normal None Seen [facility] Comment on above: Order Comment: CLEAN CATCH Performed By: #### L 400.0001 ####[facility] [address] [place], [address] RBC 0-5 SEEN Normal 0-5 [facility] Comment on above: Order Comment: CLEAN CATCH Performed By: #### L 400.0001 ####[facility] [address] [place], [address] WBC 5-10 SEEN Normal 0-5 [facility] Comment on above: Order Comment: CLEAN CATCH Performed By: #### L 400.0001 ####[facility] [address] [place], [address] EPI,SQUAMOUS 0 SEEN Normal 0-5 [facility] Comment on above: Order Comment: CLEAN CATCH Performed By: #### L 400.0001 ####[facility] [address] [place], [address] Mucus Ql (Urine sed) 0 SEEN Normal [facility] Comment on above: Order Comment: CLEAN CATCH Performed By: #### L 400.0001 ####[facility] [address] [place], [address] Urine clarityOrdered By: Cory Puri on 07-14-2024 Clarity (U) Clear Clear [facility] Urine color determinationOrd ered By: Sebastian Puri on 07-14-2024 Color (U) Yellow Yellow [facility] Urine glucose detectionOrder ed By: Sebastian Puri on 07-14-2024 Glucose Ql (U) Normal mg/dl Normal [facility] Urine glucose detection Normal mg/dl Normal [facility] Urine leukocyte esterase det ection by dipstickOrdered By: Sebastian Puri on 07-14-2024 Leukocyte esterase Test strip Ql (U) 25 /ul High Negative [facility] Urine pHOrdered By: Sebastian Florez on 07-14-2024 pH (U) 7.0 [pH] 5.0 - 8.0 [facility] Urine protein measurement (m ass/volume)Ordered By: Sebastian Puri on 07-14-2024 Protein (U) [Mass/Vol] 14.8 mg/dL High 0.0-12.0 [facility] Urine sediment bacteria coun t by microscopy (number/high power field)Ordered By: Sebastian Puri on 07-14-2024 Bacteria LM.HPF (Urine sed) [#/Area] RARE /hpf None Seen [facility] Urine specific gravity measu rementOrdered By: Sebastian Puri on 07-14-2024 Specific gravity (U) [Rel density] 1.010 1.002-1.030 [facility] Urine total bilirubin detect ion by test stripOrdered By: Sebastian Puri on 07-14-2024 Urine total bilirubin detection by test strip Negative Negative [facility] Urine urobilinogen measureme ntOrdered By: Sebastian Puri on 07-14-2024 Urobilinogen Ql (U) Normal mg/dl Normal [place] White blood cell (WBC) count Ordered By: Sebastian Puri on 07-14-2024 WBC (Bld) [#/Vol] 11.0 10*3/uL 4.4-11.0 [facility] White blood cell (WBC) count 11.0 K/mm3 4.4-11.0 [facility] White blood cell countOrdere d By: Sebastian Puri on 07-14-2024 White blood cell count 5-10 SEEN /hpf 0-5 [facility] White blood cell count 5-10 SEEN /hpf 0-5 [facility] pH (U)Ordered By: Sebastian Gonzalez on 07-14-2024 Urine pH 7.0 5.0 - 8.0 [facility] CBC W/Diff, Automatedon 06-22 Absolute Neut Normal 2.0-7.7 [facility] Comment on above: Result Comment: Canc elled via OM: Order cancelled - Patient discharged Performed By: #### L 100.0100 ####[facility] [address] [place], [address] HCT Normal 40-54 [facility] Comment on above: Result Comment: Canc elled via OM: Order cancelled - Patient discharged Performed By: #### L 100.0100 ####[facility] [address] [place], [address] HGB Normal 13.0-16.5 [facility] Comment on above: Result Comment: Canc elled via OM: Order cancelled - Patient discharged Performed By: #### L 100.0100 ####[facility] [address] [place], [address] MCH Normal 27.0-32.0 [facility] Comment on above: Result Comment: Canc elled via OM: Order cancelled - Patient discharged Performed By: #### L 100.0100 ####[facility] [address] [place], [address] MCHC Normal 32-36 [facility] Comment on above: Result Comment: Canc elled via OM: Order cancelled - Patient discharged Performed By: #### L 100.0100 ####[facility] [address] [place], [address] MCV Normal 80-94 [facility] Comment on above: Result Comment: Canc elled via OM: Order cancelled - Patient discharged Performed By: #### L 100.0100 ####[facility] [address] [place], [address] NEUT% Normal 47-70 [facility] Comment on above: Result Comment: Canc elled via OM: Order cancelled - Patient discharged Performed By: #### L 100.0100 ####[facility] [address] [place], [address] PLT Normal 150-450 [facility] Comment on above: Result Comment: Canc elled via OM: Order cancelled - Patient discharged Performed By: #### L 100.0100 ####[facility] [address] [place], [address] RBC Normal 4.6-6.2 [facility] Comment on above: Result Comment: Canc elled via OM: Order cancelled - Patient discharged Performed By: #### L 100.0100 ####[facility] [address] [place], [address] RDW CV Normal 11.6-14.6 [facility] Comment on above: Result Comment: Canc elled via OM: Order cancelled - Patient discharged Performed By: #### L 100.0100 ####[facility] [address] [place], [address] RDW SD Normal 35.1-43.9 [facility] Comment on above: Result Comment: Canc elled via OM: Order cancelled - Patient discharged Performed By: #### L 100.0100 ####[facility] [address] [place], [address] WBC Normal 4.4-11.0 [facility] Comment on above: Result Comment: Canc elled via OM: Order cancelled - Patient discharged Performed By: #### L 100.0100 ####[facility] [address] [place], [address] ALP [Catalytic activity/Vol] Ordered By: Marv Pack on 07-02-2024 Serum or plasma alkaline phosphatase measurement 122 U/L 40-129 [facility] ALT [Catalytic activity/Vol] Ordered By: Marv Pack on 07-02-2024 Serum or plasma alanine aminotransferase (ALT) measurement 23 U/L <47 [facility] Abdomen/Pelvis W IV Cont ONL Yon 07-02-2024 Abdomen/Pelvis W IV Cont ONLY Normal [facility] Absolute lymphocyte countOrd ered By: Marv Pack on 07-02-2024 Lymphocytes Auto (Unsp spec) [#/Vol] 3.86 10*3/uL 0.83-4.51 [facility] Absolute neutrophil countOrd ered By: Marv Pack on 07-02-2024 Neutrophils (Bld) [#/Vol] 11.0 10*3/uL High 2.0-7.7 [facility] Absolute neutrophil count 11.0 X10^3/uL High 2.0-7.7 [facility] Acute Abdomen Inc Cheston Acute Abdomen Inc Chest Normal [facility] Albumin [Mass/Vol]Ordered By : Marv Pack on 07-02-2024 Serum or plasma albumin measurement (mass/volume) 4.1 g/dL 3.5-5.0 [facility] Anion gap [Moles/Vol]Ordered By: Marv Pack on 07-02-2024 Anion gap in Serum or Plasma 14 08-05 [facility] Anion gap in Serum or Plasma Ordered By: Marv Pack on 07-02-2024 Anion gap [Moles/Vol] 14 mmol/L 08-05 [place] Automated lymphocyte count a s percentage of total leukocytesOrdered By: Marv Pack on 07-02-2024 Lymphocytes/100 WBC Auto (Unsp spec) 23.7 % 19-41 [facility] BUN/creatinine ratioOrdered By: Marv Pack on 07-02-2024 Urea nitrogen/Creatinine [Mass ratio] 17.0 mg/mg - [facility] BUN/creatinine ratio 17.0 RATIO - [facility] Basic Metabolic Profile (BMP )on 07-02-2024 BUN/CRE 17.0 RATIO Normal 01-10 [facility] Comment on above: Performed By: #### L 500.2500, L100.0100, L500.3400, L501.2450 ####[facility] [address] [place], [address] Calcium [Mass/Vol] 9.1 mg/dL Normal 7.6-11.0 [facility] Comment on above: Performed By: #### L 500.2500, L100.0100, L500.3400, L501.2450 ####[facility] [address] [place], [address] Chloride [Moles/Vol] 99 mmol/L Normal 98-108 [facility] Comment on above: Performed By: #### L 500.2500, L100.0100, L500.3400, L501.2450 ####[facility] [address] [place], [address] CO2 [Moles/Vol] 24.7 mmol/L Normal 21.0-32.0 [facility] Comment on above: Performed By: #### L 500.2500, L100.0100, L500.3400, L501.2450 ####[facility] [address] [place], [address] Creatinine [Mass/Vol] 0.97 mg/dL Normal 0.70-1.20 [place] Comment on above: Performed By: #### L 500.2500, L100.0100, L500.3400, L501.2450 ####[facility] [address] [place], [address] ECRCL 132.98 ml/min Normal 50-250 [facility] Comment on above: Performed By: #### L 500.2500, L100.0100, L500.3400, L501.2450 ####[facility] [address] [place], [address] GAP 14 Normal 5-15 [facility] Comment on above: Performed By: #### L 500.2500, L100.0100, L500.3400, L501.2450 ####[facility] [address] [place], [address] GFR/1.73 sq M.predicted among non-blacks MDRD (S/P/Bld) [Vol rate/Area] 97 mL/min/{1.73_m2} Normal >60 [facility] Comment on above: Result Comment: mL/m in/1.73m2 CKD-EPI Creatinine Equation (2020) Performed By: #### L 500.2500, L100.0100, L500.3400, L501.2450 ####[facility] [address] [place], [address] Glucose [Mass/Vol] 99 mg/dL Normal 70-99 [facility] Comment on above: Performed By: #### L 500.2500, L100.0100, L500.3400, L501.2450 ####[facility] [address] [place], [address] Potassium [Moles/Vol] 3.9 mmol/L Normal 3.3-5.1 [place] Comment on above: Performed By: #### L 500.2500, L100.0100, L500.3400, L501.2450 ####[facility] [address] [place], [address] Sodium [Moles/Vol] 138 mmol/L Normal 133-145 [facility] Comment on above: Performed By: #### L 500.2500, L100.0100, L500.3400, L501.2450 ####[facility] [address] [place], [address] Urea nitrogen [Mass/Vol] 17 mg/dL Normal 4-19 [facility] Comment on above: Performed By: #### L 500.2500, L100.0100, L500.3400, L501.2450 ####[facility] [address] [place], [address] Basophil percentageOrdered B y: Marv Pack on 07-02-2024 Basophils/100 WBC (Bld) 0.5 % 0-1 [facility] Basophil percentage 0.5 % 0-1 [facility] Bilirubin directOrdered By: Marv Pack on 07-02-2024 Bilirubin.direct [Mass/Vol] 0.19 mg/dL 0.00-0.30 [facility] Bilirubin, totalOrdered By: Marv Pack on 07-02-2024 Bilirubin [Mass/Vol] 0.40 mg/dL 0.00-1.30 [facility] Bilirubin, total 0.40 mg/dL 0.00-1.30 [facility] Bilirubin.direct [Mass/Vol]O rdered By: Marv Pack on 07-02-2024 Bilirubin direct 0.19 mg/dL 0.00-0.30 [facility] CBC W/Diff, Automatedon 06-22 Absolute Lymph 3.86 X10 3/uL Normal 0.83-4.51 [facility] Comment on above: Performed By: #### L 500.2500, L100.0100, L500.3400, L501.2450 ####[facility] [address] [place], [address] Absolute Neut 11.0 X10 3/uL High 2.0-7.7 [facility] Comment on above: Performed By: #### L 500.2500, L100.0100, L500.3400, L501.2450 ####[facility] [address] [place], [address] Basophils/100 WBC (Bld) 0.5 % Normal 0-1 [facility] Comment on above: Performed By: #### L 500.2500, L100.0100, L500.3400, L501.2450 ####[facility] [address] [place], [address] Eosinophils/100 WBC (Bld) 1.7 % Normal 0-5 [facility] Comment on above: Performed By: #### L 500.2500, L100.0100, L500.3400, L501.2450 ####[facility] [address] [place], [address] Erythrocyte distribution width (RBC) [Ratio] 13.4 % Normal 11.6-14.6 [facility] Comment on above: Performed By: #### L 500.2500, L100.0100, L500.3400, L501.2450 ####[facility] [address] [place], [address] Hematocrit (Bld) [Volume fraction] 41.7 % Normal 40-54 [facility] Comment on above: Performed By: #### L 500.2500, L100.0100, L500.3400, L501.2450 ####[facility] [address] [place], [address] Hemoglobin (Bld) [Mass/Vol] 13.8 g/dL Normal 13.0-16.5 [facility] Comment on above: Performed By: #### L 500.2500, L100.0100, L500.3400, L501.2450 ####[facility] [address] [place], [address] IG% 0.500 Normal 0.0-0.9 [facility] Comment on above: Result Comment: IG% - Immature Granulocytes (promyelocytes, myelocytes andmetamyelocytes) > 1% indicates that a LEFT SHIFT is Present. Performed By: #### L 500.2500, L100.0100, L500.3400, L501.2450 ####[facility] [address] [place], [address] Lymphocytes/100 WBC (Bld) 23.7 % Normal 19-41 [facility] Comment on above: Performed By: #### L 500.2500, L100.0100, L500.3400, L501.2450 ####[facility] [address] [place], [address] MCH (RBC) [Entitic mass] 27.0 pg Normal 27.0-32.0 [facility] Comment on above: Performed By: #### L 500.2500, L100.0100, L500.3400, L501.2450 ####[facility] [address] [place], [address] MCHC (RBC) [Mass/Vol] 33.1 g/dL Normal 32-36 [place] Comment on above: Performed By: #### L 500.2500, L100.0100, L500.3400, L501.2450 ####[facility] [address] [place], [address] MCV (RBC) [Entitic vol] 81.6 fL Normal 80-94 [facility] Comment on above: Performed By: #### L 500.2500, L100.0100, L500.3400, L501.2450 ####[facility] [address] [place], [address] Monocytes/100 WBC (Bld) 6.3 % Normal 0-10 [facility] Comment on above: Performed By: #### L 500.2500, L100.0100, L500.3400, L501.2450 ####[facility] [address] [place], [address] Neutrophils/100 WBC (Bld) 67.3 % Normal 47-70 [facility] Comment on above: Performed By: #### L 500.2500, L100.0100, L500.3400, L501.2450 ####[facility] [address] [place], [address] Nucleated RBC (Bld) [#/Vol] 0 10*3/uL Normal 0-5 [facility] Comment on above: Performed By: #### L 500.2500, L100.0100, L500.3400, L501.2450 ####[facility] [address] [place], [address] Platelet mean volume (Bld) [Entitic vol] 9.4 fL Normal 6.2-12.0 [facility] Comment on above: Performed By: #### L 500.2500, L100.0100, L500.3400, L501.2450 ####[facility] [address] [place], [address] Platelets (Bld) [#/Vol] 375 10*3/uL Normal 150-450 [facility] Comment on above: Performed By: #### L 500.2500, L100.0100, L500.3400, L501.2450 ####[facility] [address] [place], [address] RBC (Bld) [#/Vol] 5.11 10*6/uL Normal 4.6-6.2 [facility] Comment on above: Performed By: #### L 500.2500, L100.0100, L500.3400, L501.2450 ####[facility] [address] [place], [address] RDW SD 39.8 fl Normal 35.1-43.9 [facility] Comment on above: Performed By: #### L 500.2500, L100.0100, L500.3400, L501.2450 ####[facility] [address] [place], [address] WBC (Bld) [#/Vol] 16.3 10*3/uL High 4.4-11.0 [facility] Comment on above: Performed By: #### L 500.2500, L100.0100, L500.3400, L501.2450 ####[facility] [address] [place], [address] Calcium [Mass/Vol]Ordered By : Marv Pack on 07-02-2024 Serum or plasma calcium measurement (mass/volume) 9.1 mg/dL 7.6-11.0 [facility] Carbon dioxide, total [Moles /volume] in Central venous bloodOrdered By: Marv Pack on 07-02-2024 CO2 [Moles/Vol] 24.7 mmol/L 21.0-32.0 [facility] Carbon dioxide, total [Moles/volume] in Central venous blood 24.7 mmol/L 21.0-32.0 [facility] Chloride assayOrdered By: Isamar Pakc on 07-02-2024 Chloride [Moles/Vol] 99 mmol/L 98-108 [facility] Chloride assay 99 mmol/L 98-108 [facility] Creatinine [Mass/Vol]Ordered By: Marv Pack on 07-02-2024 Serum creatinine measurement (mass/volume) 0.97 mg/dL 0.70-1.20 [facility] Emergency Department Summary on 07-02-2024 Emergency Department Summary Normal [facility] Eosinophil percentageOrdered By: Mavr Pack on 07-02-2024 Eosinophils/100 WBC (Bld) 1.7 % 0-5 [facility] Eosinophil percentage 1.7 % 0-5 [place] Erythrocyte distribution wid th (RBC) [Ratio]Ordered By: Marv Pack on 07-02-2024 Erythrocyte distribution width ratio 13.4 % 11.6-14.6 [facility] Erythrocyte distribution width (RBC) [Entitic vol] 39.8 fL 35.1-43.9 [facility] Erythrocyte distribution width standard deviation 39.8 fl 35.1-43.9 [facility] Erythrocyte distribution wid th ratioOrdered By: Marv Pack on 07-02-2024 Erythrocyte distribution width (RBC) [Ratio] 13.4 % 11.6-14.6 [facility] Erythrocyte distribution wid th standard deviationOrdered By: Marv Pack on 07-02-2024 Erythrocyte distribution width (RBC) [Ratio] 39.8 fl 35.1-43.9 [facility] Estimation of creatinine poonam aranceOrdered By: Marv Pack on 07-02-2024 Estimated Creatinine Clearance Calc 132.98 ml/min 50-250 [facility] Estimation of creatinine clearance 132.98 ml/min 50-250 [facility] GFR/1.73 sq M.predicted kelsi g non-blacks MDRD (S/P/Bld) [Vol rate/Area]Ordered By: Marv Pack on 07-02-2024 Estimated GFR (MDRD) Non-Af Amer 97 >60 [facility] Comment on above: mL/min/1.73m2 CKD-EP I Creatinine Equation (2020) Glomerular filtration rate (GFR) estimation/1.73 sq m using serum, plasma, or whole b 97 >60 [facility] Glomerular filtration rate ( GFR) estimation/1.73 sq m using serum, plasma, or whole bOrdered By: Marv Pack on 07-02-2024 GFR/1.73 sq M.predicted among non-blacks MDRD (S/P/Bld) [Vol rate/Area] 97 mL/min/{1.73_m2} >60 [facility] Glucose [Mass/Vol]Ordered By : Marv Pack on 07-02-2024 Serum glucose measurement (mass/volume) 99 mg/dL 70-99 [facility] H AND P Exam - Hospitaliston 07-02-2024 H&P Exam - Hospitalist Normal [facility] Hematocrit Auto (Bld) [Volum e fraction]Ordered By: Marv Pack on 07-02-2024 Hematocrit (Bld) [Volume fraction] 41.7 % 40-54 [facility] Automated blood hematocrit (percentage) 41.7 % 40-54 [facility] Hemoglobin measurementOrdere d By: Marv Pack on 07-02-2024 Hemoglobin (Bld) [Mass/Vol] 13.8 g/dL 13.0-16.5 [facility] Hemoglobin measurement 13.8 g/dL 13.0-16.5 [facility] Immature granulocytes/100 WB C Auto (Bld)Ordered By: Marv Pack on 07-02-2024 Immature granulocytes/100 WBC (Bld) 0.500 % 0.0-0.9 [facility] Comment on above: IG% - Immature Granu locytes (promyelocytes, myelocytes and metamyelocytes) > 1% indicates that a LEFT SHIFT is Present. Automated immature granulocyte percentage 0.500 % 0.0-0.9 [facility] L509.7001on 07-02-2024 Procalcitonin 0.08 ng/mL Normal <=0.10 [facility] Comment on above: Result Comment: Inte rpretation:<0.10-0.25 ng/mL: Antibiotic therapy discouraged. Bacterialinfection unlikely.0.25-0.50 ng/mL: Antibiotic therapy encouraged. Bacterialinfection possible.>0.50 ng/mL: Antibiotic therapy strongly encouraged.Suggestive of presence of bacterial infection.PCT should always be interpreted in the clinical context ofthe patient. Therefore, clinicians should use the PCTresults in conjunction with other laboratory findings andclinical signs of the patient. Performed By: #### L 509.7001, L503.6005 ####[facility] [address] [place], [place], [id number] Laboratory - Chemistry and C hemistry - challengeOrdered By: Marv Pack on 07-02-2024 AST [Catalytic activity/Vol] 18 U/L <38 [facility] Lactic Acidon 07-02-2024 Lactate [Moles/Vol] 1.2 mmol/L Normal 0.0-2.0 [facility] Comment on above: Order Comment: Y Performed By: #### L 509.7001, L503.6005 ####[facility] [address] [place], [address] Lactic acid measurementOrder ed By: Marv Pack on 07-02-2024 Lactate [Moles/Vol] 1.2 mmol/L 0.0-2.0 [facility] Lactic acid measurement 1.2 mmol/L 0.0-2.0 [facility] Lipaseon 07-02-2024 Lipase [Catalytic activity/Vol] 21 U/L Normal 13-75 [facility] Comment on above: Result Comment: Umer velásquez note:LIPASE revised reference range effective 22.New Lipase methodology. Expected to produce lower valuesthan the previous assay method.NEW Reference Range: 13 - 75 U/L Performed By: #### L 500.2500, L100.0100, L500.3400, L501.2450 ####[facility] [address] [place], [place], [id number] Lipase measurementOrdered By : Marv Pack on 07-02-2024 Lipase [Catalytic activity/Vol] 21 U/L 13-75 [facility] Comment on above: Please note:LIPASE r evised reference range effective 22. New Lipase methodology. Expected to produce lower values than the previous assay method. NEW Reference Range: 13 - 75 U/L Lipase measurement 21 U/L 13-75 [facility] Liver Profileon 07-02-2024 Albumin [Mass/Vol] 4.1 g/dL Normal 3.5-5.0 [facility] Comment on above: Performed By: #### L 500.2500, L100.0100, L500.3400, L501.2450 ####[facility] [address] [place], [address] ALK PHOS 122 U/L Normal 40-129 [facility] Comment on above: Performed By: #### L 500.2500, L100.0100, L500.3400, L501.2450 ####[facility] [address] [place], [address] ALT [Catalytic activity/Vol] 23 U/L Normal <=46 [facility] Comment on above: Performed By: #### L 500.2500, L100.0100, L500.3400, L501.2450 ####[facility] [address] [place], [address] AST [Catalytic activity/Vol] 18 U/L Normal <=37 [facility] Comment on above: Performed By: #### L 500.2500, L100.0100, L500.3400, L501.2450 ####[facility] [address] [place], [address] Bilirubin [Mass/Vol] 0.40 mg/dL Normal 0.00-1.30 [facility] Comment on above: Performed By: #### L 500.2500, L100.0100, L500.3400, L501.2450 ####[facility] [address] [place], [address] Bilirubin.direct [Mass/Vol] 0.19 mg/dL Normal 0.00-0.30 [facility] Comment on above: Performed By: #### L 500.2500, L100.0100, L500.3400, L501.2450 ####[facility] [address] [place], [address] Globulin (S) [Mass/Vol] 3.5 g/dL Normal 2.2-4.2 [facility] Comment on above: Performed By: #### L 500.2500, L100.0100, L500.3400, L501.2450 ####[facility] [address] [place], [address] T PROT 7.7 g/dL Normal 5.9-8.4 [facility] Comment on above: Performed By: #### L 500.2500, L100.0100, L500.3400, L501.2450 ####[facility] [address] [place], [address] Lymphocytes Auto (Unsp spec) [#/Vol]Ordered By: Marv Pack on 07-02-2024 Lymphocytes (Bld) [#/Vol] 3.86 10*3/uL 0.83-4.51 [facility] Absolute lymphocyte count 3.86 X10^3/uL 0.83-4.51 [facility] Lymphocytes/100 WBC Auto (Un sp spec)Ordered By: Marv Pack on 07-02-2024 Lymphocytes/100 WBC (Bld) 23.7 % [facility] Automated lymphocyte count as percentage of total leukocytes 23.7 % [facility] MCV (RBC) [Entitic vol]Order ed By: Marv Pack on 07-02-2024 MCV (mean corpuscular volume) determination 81.6 fL 80-94 [facility] MCV (mean corpuscular volume ) determinationOrdered By: Marv Pack on 07-02-2024 MCV (RBC) [Entitic vol] 81.6 fL 80-94 [facility] Magnesiumon 07-02-2024 Magnesium [Mass/Vol] 2.0 mg/dL Normal 1.5-2.2 [facility] Comment on above: Performed By: #### L 501.9520, L501.5200 ####[facility] [address] [place], [address] Magnesium (Unsp spec) [Mass/ Vol]Ordered By: Vic Cosme on 07-02-2024 Magnesium [Mass/Vol] 2.0 mg/dL 1.5-2.2 [facility] Magnesium measurement (mass/volume) 2.0 mg/dL 1.5-2.2 [facility] Magnesium measurement (mass/ volume)Ordered By: Vic Cosme on 07-02-2024 Magnesium (Unsp spec) [Mass/Vol] 2.0 mg/dL 1.5-2.2 [facility] Mean corpuscular hemoglobin (MCH) determinationOrdered By: Marv Pack on 07-02-2024 MCH (RBC) [Entitic mass] 27.0 pg 27.0-32.0 [facility] Mean corpuscular hemoglobin (MCH) determination 27.0 pg 27.0-32.0 [facility] Mean corpuscular hemoglobin concentration (MCHC) determinationOrdered By: Marv Pack on 07-02-2024 MCHC (RBC) [Mass/Vol] 33.1 g/dL 32-36 [place] Mean corpuscular hemoglobin concentration (MCHC) determination 33.1 g/dL 32-36 [facility] Mean platelet volume determi nationOrdered By: Marv Pack on 07-02-2024 Platelet mean volume (Bld) [Entitic vol] 9.4 fL 6.2-12.0 [facility] Mean platelet volume determination 9.4 fl 6.2-12.0 [facility] Monocyte percentageOrdered B y: Marv Pack on 07-02-2024 Monocytes/100 WBC (Bld) 6.3 % 0-10 [facility] Monocyte percentage 6.3 % 0-10 [facility] Neutrophil percentageOrdered By: Marv Pack on 07-02-2024 Neutrophils/100 WBC (Bld) 67.3 % 47-70 [facility] Neutrophil percentage 67.3 % 47-70 [place] No Panel InformationOrdered By: Marv Pack on 07-02-2024 18 U/L <38 [facility] Nucleated red blood cell per centageOrdered By: Marv Pack on 07-02-2024 Nucleated RBC/100 WBC (Bld) [Ratio] 0 % 0-5 [facility] Nucleated red blood cell percentage 0 % 0-5 [facility] Platelet countOrdered By: Isamar Pack on 07-02-2024 Platelets (Bld) [#/Vol] 375 10*3/uL 150-450 [facility] Platelet count 375 K/mm3 150-450 [facility] Potassium (Unsp spec) [Mass/ Vol]Ordered By: Marv Pack on 07-02-2024 Potassium [Moles/Vol] 3.9 mmol/L 3.3-5.1 [place] Potassium measurement (mass/volume) 3.9 mmol/L 3.3-5.1 [facility] Potassium measurement (mass/ volume)Ordered By: Marv Pack on 07-02-2024 Potassium (Unsp spec) [Mass/Vol] 3.9 mmol/L 3.3-5.1 [facility] Procalcitonin IA [Mass/Vol]O rdered By: Marv Pack on 07-02-2024 Procalcitonin 0.08 ng/mL <0.11 [facility] Comment on above: Interpretation:<0.10 -0.25 ng/mL: Antibiotic therapy discouraged. Bacterial infection unlikely.0.25-0.50 ng/mL: Antibiotic therapy encouraged. Bacterial infection possible.>0.50 ng/mL: Antibiotic therapy strongly encouraged. Suggestive of presence of bacterial infection.PCT should always be interpreted in the clinical context of the patient. Therefore, clinicians should use the PCT results in conjunction with other laboratory findings and clinical signs of the patient. Procalcitonin [Mass/volume] in Serum or Plasma by Immunoassay 0.08 ng/mL <0.11 [facility] Procalcitonin [Mass/volume] in Serum or Plasma by ImmunoassayOrdered By: Marv Pack on 07-02-2024 Procalcitonin IA [Mass/Vol] 0.08 ng/mL <0.11 [facility] RBC Auto (Bld) [#/Vol]Ordere d By: Marv Pack on 07-02-2024 RBC (Bld) [#/Vol] 5.11 10*6/uL 4.6-6.2 [facility] Automated blood erythrocyte count 5.11 M/mm3 4.6-6.2 [facility] Serum creatinine measurement (mass/volume)Ordered By: Marv Pack on 07-02-2024 Creatinine [Mass/Vol] 0.97 mg/dL 0.70-1.20 [place] Serum globulin measurementOr dered By: Marv Pack on 07-02-2024 Globulin (S) [Mass/Vol] 3.5 g/dL 2.2-4.2 [facility] Serum globulin measurement 3.5 g/dL 2.2-4.2 [facility] Serum glucose measurement (m ass/volume)Ordered By: Marv Pack on 07-02-2024 Glucose [Mass/Vol] 99 mg/dL 70-99 [facility] Serum or plasma alanine vanegas otransferase (ALT) measurementOrdered By: Marv Pcak on 07-02-2024 ALT [Catalytic activity/Vol] 23 U/L <47 [facility] Serum or plasma albumin paramjit urement (mass/volume)Ordered By: Marv Pack on 07-02-2024 Albumin [Mass/Vol] 4.1 g/dL 3.5-5.0 [facility] Serum or plasma alkaline thomas sphatase measurementOrdered By: Marv Pack on 07-02-2024 ALP [Catalytic activity/Vol] 122 U/L 40-129 [facility] Serum or plasma calcium paramjit urement (mass/volume)Ordered By: Marv Pack on 07-02-2024 Calcium [Mass/Vol] 9.1 mg/dL 7.6-11.0 [facility] Serum or plasma urea nitroge n measurement (mass/volume)Ordered By: Marv Pack on 07-02-2024 Urea nitrogen [Mass/Vol] 17 mg/dL 4-19 [facility] Sodium levelOrdered By: Hermelindo Pack on 07-02-2024 Sodium [Moles/Vol] 138 mmol/L 133-145 [facility] Sodium level 138 mmol/L 133-145 [facility] TSH DL <= 0.005 mIU/L QnOrde red By: Vic Cosme on 07-02-2024 Thyroid Stimulating Hormone (TSH) 2.090 uIU/mL 0.300-4.200 [facility] TSH Qn 2.090 uIU/mL 0.300-4.200 [facility] Serum or plasma thyroid stimulating hormone (TSH) measurement by high sensitivity met 2.090 uIU/mL 0.300-4.200 [facility] Thyroid Stim Hormone (TSH)on 07-02-2024 TSH 2.090 uIU/mL Normal 0.300-4.200 [facility] Comment on above: Performed By: #### L 501.9520, L501.5200 ####[facility] [address] [place], [place], [address] Total proteinOrdered By: Henry Pack on 07-02-2024 Protein [Mass/Vol] 7.7 g/dL 5.9-8.4 [facility] Total protein 7.7 g/dL 5.9-8.4 [facility] Urea nitrogen [Mass/Vol]Orde red By: Marv Pack on 07-02-2024 Serum or plasma urea nitrogen measurement (mass/volume) 17 mg/dL 4-19 [facility] White blood cell (WBC) count Ordered By: Marv Pack on 07-02-2024 WBC (Bld) [#/Vol] 16.3 10*3/uL High 4.4-11.0 [facility] White blood cell (WBC) count 16.3 K/mm3 High 4.4-11.0 [facility] CNOVon 06-30-2024 CNOV Office Visit (GENSWS ) BARRETT LOPEZ ([id number]) 1975 M Date Time Provider Department 06/30/24 4:00 PM GUERLINE ANDERSEN During your visit today, we recorded the following information about you: Pulse Blood pressure Weight 80/minute 144/91 148.9 kg Guerline Andersen MD 07/03/2024 9:07 AM Signed HISTORY AND PHYSICAL Barrett Lopez 1975 REFERRING PHYSICIAN: Self CHIEF COMPLAINT: Hernia HPI: The patient is a 49 year old male with a complaint of left upper quadrant pain at the costal margin. The patient notes pain in the left upper quadrant region just below his and at his rib cage. He comes in presenting wondering if he has a hernia because it hurts when the area is pressed on or whether he has gastritis or other abdominal issues. He was seen in the emergency department at [facility] on April 28 and 2024 for what was listed as chest pain of unknown etiology. I do not have that record but his discharge instructions include possibilities of costochondritis reflux and gallbladder disease. He was also seen on May 08 and most recently May 29. He was seen by Eileen Cooney on June 10 for the above complaints and was referred to my office. She underwent CT scans of the chest and abdomen on May 29, 2024 ordered through the emergency department which demonstrated no specific abnormalities he had CT scan on May 08, 2024 at [facility] which demonstrated no abnormalities. He was noted on that scan to have small fat-containing umbilical and inguinal hernias CT scans performed on May 02 and April 28 demonstrated no acute abnormalities umbilical hernia was noted to be approximately 6 cm in size The patient on appendectomy at [facility] in 2004. He had his open sigmoid colectomy for diverticulitis on November 07, 2016 performed at [facility] in [place] and a laparoscopic cholecystectomy on December 08, 2017 which I performed. More recently I performed endoscopy on Barrett and had seen him in the past for an anal fissure. He was seen by Joy Salgado on December 05, 2023 to be scheduled for repeat colonoscopy due to incomplete prep. She underwent upper and lower endoscopy in November 2022 and November of 2023 for abdominal pain complaints of right-sided and upper abdominal pain. Endoscopy demonstrated in 2022- Upper Impression: - Normal examined jejunum. - Duodenitis. Biopsied. - Gastritis. Biopsied. - Mildly severe reflux esophagitis with no bleeding. Biopsied. Colonoscopy was unremarkable Pathology demonstrated: FINAL DIAGNOSIS A. Duodenum, biopsy: - Duodenal mucosa with preserved villous architecture and a mild increase in intraepithelial lymphocytes; see comment. B. Stomach, antrum, biopsy: - Gastric antral mucosa with reactive gastropathy. - No evidence of Helicobacter pylori organisms on ESTEVAN stain. C. Esophagus, distal, biopsy: - Squamocolumnar junctional mucosa with mild chronic inflammation. - Negative for granulomas and dysplasia. Endoscopy demonstrated 2023-performed by Dr. Cunha- Normal upper endoscopy, with inadequate prep and an aborted colonoscopy Pathology demonstrated: FINAL DIAGNOSIS A. Small Bowel, Duodenum, Biopsy -Superficial fragments of duodenal mucosa with mild reactive changes and normal villous architecture, B. Stomach, antrum, biopsy -Gastric antral mucosa with no significant histopathologic changes, negative for Helicobacter pylori type organisms C. Esophagus, distal, biopsy -Squamous mucosa with focal reactive changes Colonoscopy was performed again for right lower quadrant pain on April 21, 2024. This demonstrated: Impression: - Preparation of the colon was fair. - Stool in the entire examined colon. - Patent end-to-end colo-rectal anastomosis, characterized by healthy appearing mucosa. - No specimens collected. The patient is being seen by me today at the request of Eileen Cooney, JENNYFER, [employer] for my opinion and advice regarding abdominal complaints hernia, question epigastric issues and pain in the left upper quadrant costal region. 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 Normal [facility] Basic Metabolic Profile (BMP )on 06-25-2024 BUN/CRE 15.2 RATIO Normal 10-20 [facility] Comment on above: Performed By: #### L 500.2500, L100.0100, L501.2450, L500.3400 ####[facility] [address] [place], [address] Calcium [Mass/Vol] 8.9 mg/dL Normal 7.6-11.0 [facility] Comment on above: Performed By: #### L 500.2500, L100.0100, L501.2450, L500.3400 ####[facility] [address] [place], [address] Chloride [Moles/Vol] 103 mmol/L Normal 98-108 [facility] Comment on above: Performed By: #### L 500.2500, L100.0100, L501.2450, L500.3400 ####[facility] [address] [place], [address] CO2 [Moles/Vol] 20.0 mmol/L Low 21.0-32.0 [facility] Comment on above: Performed By: #### L 500.2500, L100.0100, L501.2450, L500.3400 ####[facility] [address] [place], [address] Creatinine [Mass/Vol] 0.93 mg/dL Normal 0.70-1.20 [place] Comment on above: Performed By: #### L 500.2500, L100.0100, L501.2450, L500.3400 ####[facility] [address] [place], [address] ECRCL 139.12 ml/min Normal 50-250 [facility] Comment on above: Performed By: #### L 500.2500, L100.0100, L501.2450, L500.3400 ####[facility] [address] [place], [address] GAP 13 Normal 5-15 [facility] Comment on above: Performed By: #### L 500.2500, L100.0100, L501.2450, L500.3400 ####[facility] [address] [place], [address] GFR/1.73 sq M.predicted among non-blacks MDRD (S/P/Bld) [Vol rate/Area] 103 mL/min/{1.73_m2} Normal >60 [facility] Comment on above: Result Comment: mL/m in/1.73m2 CKD-EPI Creatinine Equation (2020) Performed By: #### L 500.2500, L100.0100, L501.2450, L500.3400 ####[facility] [address] [place], [address] Glucose [Mass/Vol] 114 mg/dL High 70-99 [facility] Comment on above: Performed By: #### L 500.2500, L100.0100, L501.2450, L500.3400 ####[facility] [address] [place], [address] Potassium [Moles/Vol] 4.1 mmol/L Normal 3.3-5.1 [place] Comment on above: Result Comment: Hemo lysis present, Results??could be affected.?? Performed By: #### L 500.2500, L100.0100, L501.2450, L500.3400 ####[facility] [address] [place], [address] Sodium [Moles/Vol] 136 mmol/L Normal 133-145 [facility] Comment on above: Performed By: #### L 500.2500, L100.0100, L501.2450, L500.3400 ####[facility] [address] [place], [address] Urea nitrogen [Mass/Vol] 14 mg/dL Normal 4-19 [facility] Comment on above: Performed By: #### L 500.2500, L100.0100, L501.2450, L500.3400 ####[facility] [address] [place], [address] Emergency Department Summary on 06-25-2024 Emergency Department Summary Normal [facility] Lipaseon 06-25-2024 Lipase [Catalytic activity/Vol] 22 U/L Normal 13-75 [facility] Comment on above: Result Comment: Umer velásquez note:LIPASE revised reference range effective 22.New Lipase methodology. Expected to produce lower valuesthan the previous assay method.NEW Reference Range: 13 - 75 U/L Performed By: #### L 500.2500, L100.0100, L501.2450, L500.3400 ####[facility] [address] [place], [address] Liver Profileon 06-25-2024 Albumin [Mass/Vol] 3.8 g/dL Normal 3.5-5.0 [facility] Comment on above: Performed By: #### L 500.2500, L100.0100, L501.2450, L500.3400 ####[facility] [address] [place], [address] ALK PHOS 124 U/L Normal 40-129 [facility] Comment on above: Performed By: #### L 500.2500, L100.0100, L501.2450, L500.3400 ####[facility] [address] [place], [address] ALT [Catalytic activity/Vol] 44 U/L Normal <=46 [facility] Comment on above: Performed By: #### L 500.2500, L100.0100, L501.2450, L500.3400 ####[facility] [address] [place], [address] AST [Catalytic activity/Vol] 33 U/L Normal <=37 [facility] Comment on above: Result Comment: Hemo lysis present, Results??could be affected.?? Performed By: #### L 500.2500, L100.0100, L501.2450, L500.3400 ####[facility] [address] [place], [address] Bilirubin [Mass/Vol] 0.27 mg/dL Normal 0.00-1.30 [facility] Comment on above: Performed By: #### L 500.2500, L100.0100, L501.2450, L500.3400 ####[facility] [address] [place], [address] D BILI < 0.08 Normal 0.00-0.30 [facility] Comment on above: Result Comment: Hemo lysis present, Results??could be affected.?? Performed By: #### L 500.2500, L100.0100, L501.2450, L500.3400 ####[facility] [address] [place], [address] Globulin (S) [Mass/Vol] 3.4 g/dL Normal 2.2-4.2 [facility] Comment on above: Performed By: #### L 500.2500, L100.0100, L501.2450, L500.3400 ####[facility] [address] [place], [address] T PROT 7.2 g/dL Normal 5.9-8.4 [facility] Comment on above: Performed By: #### L 500.2500, L100.0100, L501.2450, L500.3400 ####[facility] [address] [place], [address] ALP [Catalytic activity/Vol] Ordered By: Marv Pack on 06-24-2024 Serum or plasma alkaline phosphatase measurement 124 U/L 40-129 [facility] ALT [Catalytic activity/Vol] Ordered By: Marv Pack on 06-24-2024 Serum or plasma alanine aminotransferase (ALT) measurement 44 U/L <47 [facility] Absolute lymphocyte countOrd ered By: Marv Pack on 06-24-2024 Lymphocytes Auto (Unsp spec) [#/Vol] 3.82 10*3/uL 0.83-4.51 [facility] Absolute neutrophil countOrd ered By: Marv Pack on 06-24-2024 Neutrophils (Bld) [#/Vol] 7.9 10*3/uL High 2.0-7.7 [facility] Absolute neutrophil count 7.9 X10^3/uL High 2.0-7.7 [facility] Acute Abdomen Inc Cheston Acute Abdomen Inc Chest Normal [facility] Albumin [Mass/Vol]Ordered By : Marv Pack on 06-24-2024 Serum or plasma albumin measurement (mass/volume) 3.8 g/dL 3.5-5.0 [facility] Anion gap [Moles/Vol]Ordered By: Marv Pack on 06-24-2024 Anion gap in Serum or Plasma 13 5-15 [facility] Anion gap in Serum or Plasma Ordered By: Marv Pack on 06-24-2024 Anion gap [Moles/Vol] 13 mmol/L 5-15 [place] Automated lymphocyte count a s percentage of total leukocytesOrdered By: Marv Pack on 06-24-2024 Lymphocytes/100 WBC Auto (Unsp spec) 29.5 % 19-41 [facility] BUN/creatinine ratioOrdered By: Marv Pack on 06-24-2024 Urea nitrogen/Creatinine [Mass ratio] 15.2 mg/mg 10-20 [facility] BUN/creatinine ratio 15.2 RATIO 10-20 [facility] Basophil percentageOrdered B y: Marv Pack on 06-24-2024 Basophils/100 WBC (Bld) 0.7 % 0-1 [facility] Basophil percentage 0.7 % 0-1 [facility] Bilirubin directOrdered By: Marv Pack on 06-24-2024 Bilirubin.direct [Mass/Vol] mg/dL 0.00-0.30 [facility] Bilirubin, totalOrdered By: Marv Pack on 06-24-2024 Bilirubin [Mass/Vol] 0.27 mg/dL 0.00-1.30 [facility] Bilirubin, total 0.27 mg/dL 0.00-1.30 [facility] Bilirubin.direct [Mass/Vol]O rdered By: Marv Pack on 06-24-2024 Direct Bilirubin < 0.08 mg/dL 0.00-0.30 [facility] Comment on above: Hemolysis present, R esults could be affected. Bilirubin direct < 0.08 mg/dL 0.00-0.30 [facility] CBC W/Diff, Automatedon Absolute Lymph 3.82 X10 3/uL Normal 0.83-4.51 [facility] Comment on above: Performed By: #### L 500.2500, L100.0100, L501.2450, L500.3400 ####[facility] [address] [place], [address] Absolute Neut 7.9 X10 3/uL High 2.0-7.7 [facility] Comment on above: Performed By: #### L 500.2500, L100.0100, L501.2450, L500.3400 ####[facility] [address] [place], [address] Basophils/100 WBC (Bld) 0.7 % Normal 0-1 [facility] Comment on above: Performed By: #### L 500.2500, L100.0100, L501.2450, L500.3400 ####[facility] [address] [place], [address] Eosinophils/100 WBC (Bld) 3.4 % Normal 0-5 [facility] Comment on above: Performed By: #### L 500.2500, L100.0100, L501.2450, L500.3400 ####[facility] [address] [place], [address] Erythrocyte distribution width (RBC) [Ratio] 13.8 % Normal 11.6-14.6 [facility] Comment on above: Performed By: #### L 500.2500, L100.0100, L501.2450, L500.3400 ####[facility] [address] [place], [address] Hematocrit (Bld) [Volume fraction] 41.3 % Normal 40-54 [facility] Comment on above: Performed By: #### L 500.2500, L100.0100, L501.2450, L500.3400 ####[facility] [address] [place], [address] Hemoglobin (Bld) [Mass/Vol] 13.5 g/dL Normal 13.0-16.5 [facility] Comment on above: Performed By: #### L 500.2500, L100.0100, L501.2450, L500.3400 ####[facility] [address] [place], [address] IG% 0.400 Normal 0.0-0.9 [facility] Comment on above: Result Comment: IG% - Immature Granulocytes (promyelocytes, myelocytes andmetamyelocytes) > 1% indicates that a LEFT SHIFT is Present. Performed By: #### L 500.2500, L100.0100, L501.2450, L500.3400 ####[facility] [address] [place], [address] Lymphocytes/100 WBC (Bld) 29.5 % Normal 19-41 [facility] Comment on above: Performed By: #### L 500.2500, L100.0100, L501.2450, L500.3400 ####[facility] [address] [place], [address] MCH (RBC) [Entitic mass] 26.6 pg Low 27.0-32.0 [facility] Comment on above: Performed By: #### L 500.2500, L100.0100, L501.2450, L500.3400 ####[facility] [address] [place], [address] MCHC (RBC) [Mass/Vol] 32.7 g/dL Normal 32-36 [place] Comment on above: Performed By: #### L 500.2500, L100.0100, L501.2450, L500.3400 ####[facility] [address] [place], [address] MCV (RBC) [Entitic vol] 81.5 fL Normal 80-94 [facility] Comment on above: Performed By: #### L 500.2500, L100.0100, L501.2450, L500.3400 ####[facility] [address] [place], [address] Monocytes/100 WBC (Bld) 5.4 % Normal 0-10 [facility] Comment on above: Performed By: #### L 500.2500, L100.0100, L501.2450, L500.3400 ####[facility] [address] [place], [address] Neutrophils/100 WBC (Bld) 60.6 % Normal 47-70 [facility] Comment on above: Performed By: #### L 500.2500, L100.0100, L501.2450, L500.3400 ####[facility] [address] [place], [address] Nucleated RBC (Bld) [#/Vol] 0 10*3/uL Normal 0-5 [facility] Comment on above: Performed By: #### L 500.2500, L100.0100, L501.2450, L500.3400 ####[facility] [address] [place], [address] Platelet mean volume (Bld) [Entitic vol] 9.3 fL Normal 6.2-12.0 [facility] Comment on above: Performed By: #### L 500.2500, L100.0100, L501.2450, L500.3400 ####[facility] [address] [place], [address] Platelets (Bld) [#/Vol] 335 10*3/uL Normal 150-450 [facility] Comment on above: Performed By: #### L 500.2500, L100.0100, L501.2450, L500.3400 ####[facility] [address] [place], [address] RBC (Bld) [#/Vol] 5.07 10*6/uL Normal 4.6-6.2 [facility] Comment on above: Performed By: #### L 500.2500, L100.0100, L501.2450, L500.3400 ####[facility] [address] [place], [address] RDW SD 40.5 fl Normal 35.1-43.9 [facility] Comment on above: Performed By: #### L 500.2500, L100.0100, L501.2450, L500.3400 ####[facility] [address] [place], [address] WBC (Bld) [#/Vol] 13.0 10*3/uL High 4.4-11.0 [facility] Comment on above: Performed By: #### L 500.2500, L100.0100, L501.2450, L500.3400 ####[facility] [address] [place], [address] Calcium [Mass/Vol]Ordered By : Marv Pack on 06-24-2024 Serum or plasma calcium measurement (mass/volume) 8.9 mg/dL 7.6-11.0 [facility] Carbon dioxide, total [Moles /volume] in Central venous bloodOrdered By: Marv Pack on 06-24-2024 CO2 [Moles/Vol] 20.0 mmol/L Low 21.0-32.0 [facility] Carbon dioxide, total [Moles/volume] in Central venous blood 20.0 mmol/L Low 21.0-32.0 [facility] Chloride assayOrdered By: Isamar Pack on 06-24-2024 Chloride [Moles/Vol] 103 mmol/L 98-108 [facility] Chloride assay 103 mmol/L 98-108 [facility] Creatinine [Mass/Vol]Ordered By: Marv Pack on 06-24-2024 Serum creatinine measurement (mass/volume) 0.93 mg/dL 0.70-1.20 [facility] Eosinophil percentageOrdered By: Marv Pack on 06-24-2024 Eosinophils/100 WBC (Bld) 3.4 % 0-5 [facility] Eosinophil percentage 3.4 % 0-5 [place] Erythrocyte distribution wid th (RBC) [Ratio]Ordered By: Marv Pack on 06-24-2024 Erythrocyte distribution width ratio 13.8 % 11.6-14.6 [facility] Erythrocyte distribution width (RBC) [Entitic vol] 40.5 fL 35.1-43.9 [facility] Erythrocyte distribution width standard deviation 40.5 fl 35.1-43.9 [facility] Erythrocyte distribution wid th ratioOrdered By: Marv Pack on 06-24-2024 Erythrocyte distribution width (RBC) [Ratio] 13.8 % 11.6-14.6 [facility] Erythrocyte distribution wid th standard deviationOrdered By: Marv Pack on 06-24-2024 Erythrocyte distribution width (RBC) [Ratio] 40.5 fl 35.1-43.9 [facility] Estimation of creatinine poonam aranceOrdered By: Marv Pack on 06-24-2024 Estimated Creatinine Clearance Calc 139.12 ml/min 50-250 [facility] Estimation of creatinine clearance 139.12 ml/min 50-250 [facility] GFR/1.73 sq M.predicted kelsi g non-blacks MDRD (S/P/Bld) [Vol rate/Area]Ordered By: Marv Pack on 06-24-2024 Estimated GFR (MDRD) Non-Af Amer 103 >60 [facility] Comment on above: mL/min/1.73m2 CKD-EP I Creatinine Equation (2020) Glomerular filtration rate (GFR) estimation/1.73 sq m using serum, plasma, or whole b 103 >60 [facility] Glomerular filtration rate ( GFR) estimation/1.73 sq m using serum, plasma, or whole bOrdered By: Marv Pack on 06-24-2024 GFR/1.73 sq M.predicted among non-blacks MDRD (S/P/Bld) [Vol rate/Area] 103 mL/min/{1.73_m2} >60 [facility] Glucose [Mass/Vol]Ordered By : Marv Pack on 06-24-2024 Serum glucose measurement (mass/volume) 114 mg/dL High 70-99 [facility] Hematocrit Auto (Bld) [Volum e fraction]Ordered By: Marv Pack on 06-24-2024 Hematocrit (Bld) [Volume fraction] 41.3 % 40-54 [facility] Automated blood hematocrit (percentage) 41.3 % 40-54 [facility] Hemoglobin measurementOrdere d By: Marv Pack on 06-24-2024 Hemoglobin (Bld) [Mass/Vol] 13.5 g/dL 13.0-16.5 [facility] Hemoglobin measurement 13.5 g/dL 13.0-16.5 [facility] Immature granulocytes/100 WB C Auto (Bld)Ordered By: Marv Pack on 06-24-2024 Immature granulocytes/100 WBC (Bld) 0.400 % 0.0-0.9 [facility] Comment on above: IG% - Immature Granu locytes (promyelocytes, myelocytes and metamyelocytes) > 1% indicates that a LEFT SHIFT is Present. Automated immature granulocyte percentage 0.400 % 0.0-0.9 [facility] Laboratory - Chemistry and C hemistry - challengeOrdered By: Marv Pack on 06-24-2024 AST [Catalytic activity/Vol] 33 U/L <38 [facility] Comment on above: Hemolysis present, R esults could be affected. Lipase measurementOrdered By : aMrv Pack on 06-24-2024 Lipase [Catalytic activity/Vol] 22 U/L 13-75 [facility] Comment on above: Please note:LIPASE r evised reference range effective 22. New Lipase methodology. Expected to produce lower values than the previous assay method. NEW Reference Range: 13 - 75 U/L Lipase measurement 22 U/L 13-75 [facility] Lymphocytes Auto (Unsp spec) [#/Vol]Ordered By: Marv Pack on 06-24-2024 Lymphocytes (Bld) [#/Vol] 3.82 10*3/uL 0.83-4.51 [facility] Absolute lymphocyte count 3.82 X10^3/uL 0.83-4.51 [facility] Lymphocytes/100 WBC Auto (Un sp spec)Ordered By: Marv Pack on 06-24-2024 Lymphocytes/100 WBC (Bld) 29.5 % - [facility] Automated lymphocyte count as percentage of total leukocytes 29.5 % -41 [facility] MCV (RBC) [Entitic vol]Order ed By: Marv Pack on 06-24-2024 MCV (mean corpuscular volume) determination 81.5 fL 80-94 [facility] MCV (mean corpuscular volume ) determinationOrdered By: Marv Pack on 06-24-2024 MCV (RBC) [Entitic vol] 81.5 fL 80-94 [facility] Mean corpuscular hemoglobin (MCH) determinationOrdered By: Marv Pack on 06-24-2024 MCH (RBC) [Entitic mass] 26.6 pg Low 27.0-32.0 [facility] Mean corpuscular hemoglobin (MCH) determination 26.6 pg Low 27.0-32.0 [facility] Mean corpuscular hemoglobin concentration (MCHC) determinationOrdered By: Marv Pack on 06-24-2024 MCHC (RBC) [Mass/Vol] 32.7 g/dL 32-36 [place] Mean corpuscular hemoglobin concentration (MCHC) determination 32.7 g/dL 32-36 [facility] Mean platelet volume determi nationOrdered By: Marv Pack on 06-24-2024 Platelet mean volume (Bld) [Entitic vol] 9.3 fL 6.2-12.0 [facility] Mean platelet volume determination 9.3 fl 6.2-12.0 [facility] Monocyte percentageOrdered B y: Marv Pack on 06-24-2024 Monocytes/100 WBC (Bld) 5.4 % 0-10 [facility] Monocyte percentage 5.4 % 0-10 [facility] Neutrophil percentageOrdered By: Marv Pack on 06-24-2024 Neutrophils/100 WBC (Bld) 60.6 % 47-70 [facility] Neutrophil percentage 60.6 % 47-70 [place] No Panel InformationOrdered By: Marv Pack on 06-24-2024 33 U/L <38 [facility] Nucleated red blood cell per centageOrdered By: Marv Pack on 06-24-2024 Nucleated RBC/100 WBC (Bld) [Ratio] 0 % 0-5 [facility] Nucleated red blood cell percentage 0 % 0-5 [facility] Platelet countOrdered By: Isamar Pack on 06-24-2024 Platelets (Bld) [#/Vol] 335 10*3/uL 150-450 [facility] Platelet count 335 K/mm3 150-450 [facility] Potassium (Unsp spec) [Mass/ Vol]Ordered By: Marv Pack on 06-24-2024 Potassium [Moles/Vol] 4.1 mmol/L 3.3-5.1 [place] Comment on above: Hemolysis present, R esults could be affected. Potassium measurement (mass/volume) 4.1 mmol/L 3.3-5.1 [facility] Potassium measurement (mass/ volume)Ordered By: Marv Pack on 06-24-2024 Potassium (Unsp spec) [Mass/Vol] 4.1 mmol/L 3.3-5.1 [facility] RBC Auto (Bld) [#/Vol]Ordere d By: Marv Pack on 06-24-2024 RBC (Bld) [#/Vol] 5.07 10*6/uL 4.6-6.2 [facility] Automated blood erythrocyte count 5.07 M/mm3 4.6-6.2 [facility] Serum creatinine measurement (mass/volume)Ordered By: Marv Pack on 06-24-2024 Creatinine [Mass/Vol] 0.93 mg/dL 0.70-1.20 [place] Serum globulin measurementOr dered By: Marv Pack on 06-24-2024 Globulin (S) [Mass/Vol] 3.4 g/dL 2.2-4.2 [facility] Serum globulin measurement 3.4 g/dL 2.2-4.2 [facility] Serum glucose measurement (m ass/volume)Ordered By: Marv Pack on 06-24-2024 Glucose [Mass/Vol] 114 mg/dL High 70-99 [facility] Serum or plasma alanine vanegas otransferase (ALT) measurementOrdered By: Marv Pack on 06-24-2024 ALT [Catalytic activity/Vol] 44 U/L <47 [facility] Serum or plasma albumin paramjit urement (mass/volume)Ordered By: Marv Pack on 06-24-2024 Albumin [Mass/Vol] 3.8 g/dL 3.5-5.0 [facility] Serum or plasma alkaline thomas sphatase measurementOrdered By: Marv Pack on 06-24-2024 ALP [Catalytic activity/Vol] 124 U/L 40-129 [facility] Serum or plasma calcium paramjit urement (mass/volume)Ordered By: Marv Pack on 06-24-2024 Calcium [Mass/Vol] 8.9 mg/dL 7.6-11.0 [facility] Serum or plasma urea nitroge n measurement (mass/volume)Ordered By: Marv Pack on 06-24-2024 Urea nitrogen [Mass/Vol] 14 mg/dL - [facility] Sodium levelOrdered By: Hermelindo Pack on 06-24-2024 Sodium [Moles/Vol] 136 mmol/L 133-145 [facility] Sodium level 136 mmol/L 133-145 [facility] Total proteinOrdered By: Henry Pack on 06-24-2024 Protein [Mass/Vol] 7.2 g/dL 5.9-8.4 [facility] Total protein 7.2 g/dL 5.9-8.4 [facility] Urea nitrogen [Mass/Vol]Orde red By: Marv Pack on 06-24-2024 Serum or plasma urea nitrogen measurement (mass/volume) 14 mg/dL - [facility] White blood cell (WBC) count Ordered By: Marv Pack on 06-24-2024 WBC (Bld) [#/Vol] 13.0 10*3/uL High 4.4-11.0 [facility] White blood cell (WBC) count 13.0 K/mm3 High 4.4-11.0 [facility] ALP [Catalytic activity/Vol] Ordered By: Luis Marmolejo on 05-29-2024 Serum or plasma alkaline phosphatase measurement 131 U/L High 40-129 [facility] ALT [Catalytic activity/Vol] Ordered By: Luis Marmolejo on 05-29-2024 Serum or plasma alanine aminotransferase (ALT) measurement 21 U/L <47 [facility] Abdomen/Pelvis W IV Cont ONL Yon 05-29-2024 Abdomen/Pelvis W IV Cont ONLY Normal [facility] Absolute lymphocyte countOrd ered By: Luis Marmolejo on 05-29-2024 Lymphocytes Auto (Unsp spec) [#/Vol] 3.75 10*3/uL 0.83-4.51 [facility] Absolute neutrophil countOrd ered By: Luis Marmolejo on 05-29-2024 Neutrophils (Bld) [#/Vol] 8.2 10*3/uL High 2.0-7.7 [facility] Absolute neutrophil count 8.2 X10^3/uL High 2.0-7.7 [facility] Albumin [Mass/Vol]Ordered By : Luis Marmolejo on 05-29-2024 Serum or plasma albumin measurement (mass/volume) 4.1 g/dL 3.5-5.0 [facility] Albumin/Globulin [Mass ratio ]Ordered By: Luis Marmolejo on 05-29-2024 Serum or plasma albumin/globulin mass ratio 1.2 RATIO 0.9-2.4 [facility] Anion gap [Moles/Vol]Ordered By: Luis Marmolejo on 05-29-2024 Anion gap in Serum or Plasma 13 5-15 [facility] Anion gap in Serum or Plasma Ordered By: Luis Marmolejo on 05-29-2024 Anion gap [Moles/Vol] 13 mmol/L 5-15 [place] Automated lymphocyte count a s percentage of total leukocytesOrdered By: Luis Marmolejo on 05-29-2024 Lymphocytes/100 WBC Auto (Unsp spec) 28.7 % 19-41 [facility] BUN/creatinine ratioOrdered By: Luis Marmolejo on 05-29-2024 Urea nitrogen/Creatinine [Mass ratio] 16.3 mg/mg 10-20 [facility] BUN/creatinine ratio 16.3 RATIO 10-20 [facility] Basophil percentageOrdered B y: Luis Marmolejo on 05-29-2024 Basophils/100 WBC (Bld) 0.4 % 0-1 [facility] Basophil percentage 0.4 % 0-1 [facility] Bilirubin, totalOrdered By: Luis Marmolejo on 05-29-2024 Bilirubin [Mass/Vol] 0.18 mg/dL 0.00-1.30 [facility] Bilirubin, total 0.18 mg/dL 0.00-1.30 [facility] CBC W/Diff, Automatedon Absolute Lymph 3.75 X10 3/uL Normal 0.83-4.51 [facility] Comment on above: Performed By: #### L 501.2450, L100.0100, L500.4050 ####[facility] [address] [place], [address] Absolute Neut 8.2 X10 3/uL High 2.0-7.7 [facility] Comment on above: Performed By: #### L 501.2450, L100.0100, L500.4050 ####[facility] [address] [place], [address] Basophils/100 WBC (Bld) 0.4 % Normal 0-1 [facility] Comment on above: Performed By: #### L 501.2450, L100.0100, L500.4050 ####[facility] [address] [place], [address] Eosinophils/100 WBC (Bld) 3.0 % Normal 0-5 [facility] Comment on above: Performed By: #### L 501.2450, L100.0100, L500.4050 ####[facility] [address] [place], [address] Erythrocyte distribution width (RBC) [Ratio] 13.7 % Normal 11.6-14.6 [facility] Comment on above: Performed By: #### L 501.2450, L100.0100, L500.4050 ####[facility] [address] [place], [address] Hematocrit (Bld) [Volume fraction] 39.4 % Low 40-54 [facility] Comment on above: Performed By: #### L 501.2450, L100.0100, L500.4050 ####[facility] [address] [place], [address] Hemoglobin (Bld) [Mass/Vol] 13.0 g/dL Normal 13.0-16.5 [facility] Comment on above: Performed By: #### L 501.2450, L100.0100, L500.4050 ####[facility] [address] [place], [address] IG% 0.500 Normal 0.0-0.9 [facility] Comment on above: Result Comment: IG% - Immature Granulocytes (promyelocytes, myelocytes andmetamyelocytes) > 1% indicates that a LEFT SHIFT is Present. Performed By: #### L 501.2450, L100.0100, L500.4050 ####[facility] [address] [place], [address] Lymphocytes/100 WBC (Bld) 28.7 % Normal 19-41 [facility] Comment on above: Performed By: #### L 501.2450, L100.0100, L500.4050 ####[facility] [address] [place], [address] MCH (RBC) [Entitic mass] 27.1 pg Normal 27.0-32.0 [facility] Comment on above: Performed By: #### L 501.2450, L100.0100, L500.4050 ####[facility] [address] [place], [address] MCHC (RBC) [Mass/Vol] 33.0 g/dL Normal 32-36 [place] Comment on above: Performed By: #### L 501.2450, L100.0100, L500.4050 ####[facility] [address] [place], [address] MCV (RBC) [Entitic vol] 82.1 fL Normal 80-94 [facility] Comment on above: Performed By: #### L 501.2450, L100.0100, L500.4050 ####[facility] [address] [place], [address] Monocytes/100 WBC (Bld) 5.0 % Normal 0-10 [facility] Comment on above: Performed By: #### L 501.2450, L100.0100, L500.4050 ####[facility] [address] [place], [address] Neutrophils/100 WBC (Bld) 62.4 % Normal 47-70 [facility] Comment on above: Performed By: #### L 501.2450, L100.0100, L500.4050 ####[facility] [address] [place], [address] Nucleated RBC (Bld) [#/Vol] 0 10*3/uL Normal 0-5 [facility] Comment on above: Performed By: #### L 501.2450, L100.0100, L500.4050 ####[facility] [address] [place], [address] Platelet mean volume (Bld) [Entitic vol] 9.2 fL Normal 6.2-12.0 [facility] Comment on above: Performed By: #### L 501.2450, L100.0100, L500.4050 ####[facility] [address] [place], [address] Platelets (Bld) [#/Vol] 390 10*3/uL Normal 150-450 [facility] Comment on above: Performed By: #### L 501.2450, L100.0100, L500.4050 ####[facility] [address] [place], [address] RBC (Bld) [#/Vol] 4.80 10*6/uL Normal 4.6-6.2 [facility] Comment on above: Performed By: #### L 501.2450, L100.0100, L500.4050 ####[facility] [address] [place], [address] RDW SD 40.5 fl Normal 35.1-43.9 [facility] Comment on above: Performed By: #### L 501.2450, L100.0100, L500.4050 ####[facility] [address] [place], [address] WBC (Bld) [#/Vol] 13.1 10*3/uL High 4.4-11.0 [facility] Comment on above: Performed By: #### L 501.2450, L100.0100, L500.4050 ####[facility] [address] [place], [address] Calcium [Mass/Vol]Ordered By : Luis Marmolejo on 05-29-2024 Serum or plasma calcium measurement (mass/volume) 9.1 mg/dL 7.6-11.0 [facility] Carbon dioxide, total [Moles /volume] in Central venous bloodOrdered By: Luis Marmolejo on 05-29-2024 CO2 [Moles/Vol] 24.6 mmol/L 21.0-32.0 [facility] Carbon dioxide, total [Moles/volume] in Central venous blood 24.6 mmol/L 21.0-32.0 [facility] Chest PA and Lateralon 05-29 Chest PA and Lateral Normal [facility] Chloride assayOrdered By: Teddy Marmolejo on 05-29-2024 Chloride [Moles/Vol] 102 mmol/L 98-108 [facility] Chloride assay 102 mmol/L 98-108 [facility] Comprehensive Metabolic Prof ilon 05-29-2024 Albumin [Mass/Vol] 4.1 g/dL Normal 3.5-5.0 [facility] Comment on above: Performed By: #### L 501.2450, L100.0100, L500.4050 ####[facility] [address] [place], [address] Albumin/Globulin [Mass ratio] 1.2 {ratio} Normal 0.9-2.4 [facility] Comment on above: Performed By: #### L 501.2450, L100.0100, L500.4050 ####[facility] [address] [place], [address] ALK PHOS 131 U/L High 40-129 [facility] Comment on above: Performed By: #### L 501.2450, L100.0100, L500.4050 ####[facility] [address] [place], [address] ALT [Catalytic activity/Vol] 21 U/L Normal <=46 [facility] Comment on above: Performed By: #### L 501.2450, L100.0100, L500.4050 ####[facility] [address] [place], [address] AST [Catalytic activity/Vol] 22 U/L Normal <=37 [facility] Comment on above: Performed By: #### L 501.2450, L100.0100, L500.4050 ####[facility] [address] [place], [address] Bilirubin [Mass/Vol] 0.18 mg/dL Normal 0.00-1.30 [facility] Comment on above: Performed By: #### L 501.2450, L100.0100, L500.4050 ####[facility] [address] [place], [address] BUN/CRE 16.3 RATIO Normal 10-20 [facility] Comment on above: Performed By: #### L 501.2450, L100.0100, L500.4050 ####[facility] [address] [place], [address] Calcium [Mass/Vol] 9.1 mg/dL Normal 7.6-11.0 [facility] Comment on above: Performed By: #### L 501.2450, L100.0100, L500.4050 ####[facility] [address] [place], [address] Chloride [Moles/Vol] 102 mmol/L Normal 98-108 [facility] Comment on above: Performed By: #### L 501.2450, L100.0100, L500.4050 ####[facility] [address] [place], [address] CO2 [Moles/Vol] 24.6 mmol/L Normal 21.0-32.0 [facility] Comment on above: Performed By: #### L 501.2450, L100.0100, L500.4050 ####[facility] [address] [place], [address] Creatinine [Mass/Vol] 0.90 mg/dL Normal 0.70-1.20 [place] Comment on above: Performed By: #### L 501.2450, L100.0100, L500.4050 ####[facility] [address] [place], [address] GAP 13 Normal 5-15 [facility] Comment on above: Performed By: #### L 501.2450, L100.0100, L500.4050 ####[facility] [address] [place], [address] GFR/1.73 sq M.predicted among non-blacks MDRD (S/P/Bld) [Vol rate/Area] 106 mL/min/{1.73_m2} Normal >60 [facility] Comment on above: Result Comment: mL/m in/1.73m2 CKD-EPI Creatinine Equation (2020) Performed By: #### L 501.2450, L100.0100, L500.4050 ####[facility] [address] [place], [address] Globulin (S) [Mass/Vol] 3.4 g/dL Normal 2.2-4.2 [facility] Comment on above: Performed By: #### L 501.2450, L100.0100, L500.4050 ####[facility] [address] [place], [address] Glucose [Mass/Vol] 123 mg/dL High 70-99 [facility] Comment on above: Performed By: #### L 501.2450, L100.0100, L500.4050 ####[facility] [address] [place], [address] Potassium [Moles/Vol] 3.6 mmol/L Normal 3.3-5.1 [place] Comment on above: Performed By: #### L 501.2450, L100.0100, L500.4050 ####[facility] [address] [place], [address] Sodium [Moles/Vol] 139 mmol/L Normal 133-145 [facility] Comment on above: Performed By: #### L 501.2450, L100.0100, L500.4050 ####[facility] [address] [place], [address] T PROT 7.4 g/dL Normal 5.9-8.4 [facility] Comment on above: Performed By: #### L 501.2450, L100.0100, L500.4050 ####[facility] [address] [place], [place], [address] Urea nitrogen [Mass/Vol] 15 mg/dL Normal 4-19 [facility] Comment on above: Performed By: #### L 501.2450, L100.0100, L500.4050 ####[facility] [address] [place], [address] Creatinine [Mass/Vol]Ordered By: Luis Marmolejo on 05-29-2024 Serum creatinine measurement (mass/volume) 0.90 mg/dL 0.70-1.20 [facility] Emergency Department Summary on 05-29-2024 Emergency Department Summary Normal [facility] Eosinophil percentageOrdered By: Luis Marmolejo on 05-29-2024 Eosinophils/100 WBC (Bld) 3.0 % 0-5 [facility] Eosinophil percentage 3.0 % 0-5 [place] Erythrocyte distribution wid th (RBC) [Ratio]Ordered By: Luis Marmolejo on 05-29-2024 Erythrocyte distribution width ratio 13.7 % 11.6-14.6 [facility] Erythrocyte distribution width standard deviation 40.5 fl 35.1-43.9 [facility] Erythrocyte distribution wid th ratioOrdered By: Luis Marmolejo on 05-29-2024 Erythrocyte distribution width (RBC) [Ratio] 13.7 % 11.6-14.6 [facility] Erythrocyte distribution wid th standard deviationOrdered By: Luis Marmolejo on 05-29-2024 Erythrocyte distribution width (RBC) [Entitic vol] 40.5 fL 35.1-43.9 [facility] Erythrocyte distribution width (RBC) [Ratio] 40.5 fl 35.1-43.9 [facility] GFR/1.73 sq M.predicted kelsi g non-blacks MDRD (S/P/Bld) [Vol rate/Area]Ordered By: Luis Marmolejo on 05-29-2024 Estimated GFR (MDRD) Non-Af Amer 106 >60 [facility] Comment on above: mL/min/1.73m2 CKD-EP I Creatinine Equation (2020) Glomerular filtration rate (GFR) estimation/1.73 sq m using serum, plasma, or whole b 106 >60 [facility] Glomerular filtration rate ( GFR) estimation/1.73 sq m using serum, plasma, or whole bOrdered By: Luis Marmolejo on 05-29-2024 GFR/1.73 sq M.predicted among non-blacks MDRD (S/P/Bld) [Vol rate/Area] 106 mL/min/{1.73_m2} >60 [facility] Glucose [Mass/Vol]Ordered By : Luis Marmolejo on 05-29-2024 Serum glucose measurement (mass/volume) 123 mg/dL High 70-99 [facility] Hematocrit Auto (Bld) [Volum e fraction]Ordered By: Luis Marmolejo on 05-29-2024 Hematocrit (Bld) [Volume fraction] 39.4 % Low 40-54 [facility] Automated blood hematocrit (percentage) 39.4 % Low 40-54 [facility] Hemoglobin measurementOrdere d By: Luis Marmolejo on 05-29-2024 Hemoglobin (Bld) [Mass/Vol] 13.0 g/dL 13.0-16.5 [facility] Hemoglobin measurement 13.0 g/dL 13.0-16.5 [facility] Immature granulocytes/100 WB C Auto (Bld)Ordered By: Luis Marmolejo on 05-29-2024 Immature granulocytes/100 WBC (Bld) 0.500 % 0.0-0.9 [facility] Comment on above: IG% - Immature Granu locytes (promyelocytes, myelocytes and metamyelocytes) > 1% indicates that a LEFT SHIFT is Present. Automated immature granulocyte percentage 0.500 % 0.0-0.9 [facility] Laboratory - Chemistry and C hemistry - challengeOrdered By: Luis Marmolejo on 05-29-2024 AST [Catalytic activity/Vol] 22 U/L <38 [facility] Lipaseon 05-29-2024 Lipase [Catalytic activity/Vol] 23 U/L Normal 13-75 [facility] Comment on above: Result Comment: Umer velásquez note:LIPASE revised reference range effective 22.New Lipase methodology. Expected to produce lower valuesthan the previous assay method.NEW Reference Range: 13 - 75 U/L Performed By: #### L 501.2450, L100.0100, L500.4050 ####[facility] [address] [place], [address] Lipase measurementOrdered By : uLis Marmolejo on 05-29-2024 Lipase [Catalytic activity/Vol] 23 U/L - [facility] Comment on above: Please note:LIPASE r evised reference range effective 22. New Lipase methodology. Expected to produce lower values than the previous assay method. NEW Reference Range: 13 - 75 U/L Lipase measurement 23 U/L -75 [facility] Lymphocytes Auto (Unsp spec) [#/Vol]Ordered By: Luis Marmolejo on 05-29-2024 Lymphocytes (Bld) [#/Vol] 3.75 10*3/uL 0.83-4.51 [facility] Absolute lymphocyte count 3.75 X10^3/uL 0.83-4.51 [facility] Lymphocytes/100 WBC Auto (Un sp spec)Ordered By: Luis Marmolejo on 05-29-2024 Lymphocytes/100 WBC (Bld) 28.7 % [facility] Automated lymphocyte count as percentage of total leukocytes 28.7 % - [facility] MCV (RBC) [Entitic vol]Order ed By: Luis Marmolejo on 05-29-2024 MCV (mean corpuscular volume) determination 82.1 fL 80-94 [facility] MCV (mean corpuscular volume ) determinationOrdered By: Luis Marmolejo on 05-29-2024 MCV (RBC) [Entitic vol] 82.1 fL 80-94 [facility] Mean corpuscular hemoglobin (MCH) determinationOrdered By: Luis Marmolejo on 05-29-2024 MCH (RBC) [Entitic mass] 27.1 pg 27.0-32.0 [facility] Mean corpuscular hemoglobin (MCH) determination 27.1 pg 27.0-32.0 [facility] Mean corpuscular hemoglobin concentration (MCHC) determinationOrdered By: Luis Marmolejo on 05-29-2024 MCHC (RBC) [Mass/Vol] 33.0 g/dL 32-36 [place] Mean corpuscular hemoglobin concentration (MCHC) determination 33.0 g/dL -36 [facility] Mean platelet volume determi nationOrdered By: Luis Marmolejo on 05-29-2024 Platelet mean volume (Bld) [Entitic vol] 9.2 fL 6.2-12.0 [facility] Mean platelet volume determination 9.2 fl 6.2-12.0 [facility] Monocyte percentageOrdered B y: Luis Marmolejo on 05-29-2024 Monocytes/100 WBC (Bld) 5.0 % 0-10 [facility] Monocyte percentage 5.0 % 0-10 [facility] Neutrophil percentageOrdered By: Luis Marmolejo on 05-29-2024 Neutrophils/100 WBC (Bld) 62.4 % 47-70 [facility] Neutrophil percentage 62.4 % 47-70 [place] No Panel InformationOrdered By: Luis Marmolejo on 05-29-2024 22 U/L <38 [facility] Nucleated red blood cell per centageOrdered By: Luis aMrmolejo on 05-29-2024 Nucleated RBC/100 WBC (Bld) [Ratio] 0 % 0-5 [facility] Nucleated red blood cell percentage 0 % 0-5 [facility] Platelet countOrdered By: Teddy Marmolejo on 05-29-2024 Platelets (Bld) [#/Vol] 390 10*3/uL 150-450 [facility] Platelet count 390 K/mm3 150-450 [facility] Potassium (Unsp spec) [Mass/ Vol]Ordered By: Luis Marmolejo on 05-29-2024 Potassium [Moles/Vol] 3.6 mmol/L 3.3-5.1 [place] Potassium measurement (mass/volume) 3.6 mmol/L 3.3-5.1 [facility] Potassium measurement (mass/ volume)Ordered By: Luis Marmolejo on 05-29-2024 Potassium (Unsp spec) [Mass/Vol] 3.6 mmol/L 3.3-5.1 [facility] RBC Auto (Bld) [#/Vol]Ordere d By: Luis Marmolejo on 05-29-2024 RBC (Bld) [#/Vol] 4.80 10*6/uL 4.6-6.2 [facility] Automated blood erythrocyte count 4.80 M/mm3 4.6-6.2 [facility] Serum creatinine measurement (mass/volume)Ordered By: Luis Marmolejo on 05-29-2024 Creatinine [Mass/Vol] 0.90 mg/dL 0.70-1.20 [place] Serum globulin measurementOr dered By: Luis Marmolejo on 05-29-2024 Globulin (S) [Mass/Vol] 3.4 g/dL 2.2-4.2 [facility] Serum globulin measurement 3.4 g/dL 2.2-4.2 [facility] Serum glucose measurement (m ass/volume)Ordered By: Luis Marmolejo on 05-29-2024 Glucose [Mass/Vol] 123 mg/dL High 70-99 [facility] Serum or plasma alanine vanegas otransferase (ALT) measurementOrdered By: Luis Marmolejo on 05-29-2024 ALT [Catalytic activity/Vol] 21 U/L <47 [facility] Serum or plasma albumin paramjit urement (mass/volume)Ordered By: Luis Marmolejo on 05-29-2024 Albumin [Mass/Vol] 4.1 g/dL 3.5-5.0 [facility] Serum or plasma albumin/glob ulin mass ratioOrdered By: Luis Marmolejo on 05-29-2024 Albumin/Globulin [Mass ratio] 1.2 {ratio} 0.9-2.4 [facility] Serum or plasma alkaline thomas sphatase measurementOrdered By: Luis Marmolejo on 05-29-2024 ALP [Catalytic activity/Vol] 131 U/L High 40-129 [facility] Serum or plasma calcium paramjit urement (mass/volume)Ordered By: Luis Marmolejo on 05-29-2024 Calcium [Mass/Vol] 9.1 mg/dL 7.6-11.0 [facility] Serum or plasma urea nitroge n measurement (mass/volume)Ordered By: Luis Marmolejo on 05-29-2024 Urea nitrogen [Mass/Vol] 15 mg/dL 4-19 [facility] Sodium levelOrdered By: Luis Marmolejo on 05-29-2024 Sodium [Moles/Vol] 139 mmol/L 133-145 [facility] Sodium level 139 mmol/L 133-145 [facility] Total proteinOrdered By: Salty Marmolejo on 05-29-2024 Protein [Mass/Vol] 7.4 g/dL 5.9-8.4 [facility] Total protein 7.4 g/dL 5.9-8.4 [facility] Urea nitrogen [Mass/Vol]Orde red By: Luis Marmolejo on 05-29-2024 Serum or plasma urea nitrogen measurement (mass/volume) 15 mg/dL 4-19 [facility] White blood cell (WBC) count Ordered By: Luis Marmolejo on 05-29-2024 WBC (Bld) [#/Vol] 13.1 10*3/uL High 4.4-11.0 [facility] White blood cell (WBC) count 13.1 K/mm3 High 4.4-11.0 [facility] ALP [Catalytic activity/Vol] Ordered By: Patrick Moreno on 05-08-2024 Serum or plasma alkaline phosphatase measurement 127 U/L High 45-117 [facility] ALT [Catalytic activity/Vol] Ordered By: Patrick Moreno on 05-08-2024 Serum or plasma alanine aminotransferase (ALT) measurement 57 U/L 16-61 [facility] Abdomen/Pelvis W IV Cont ONL Yon 05-08-2024 Abdomen/Pelvis W IV Cont ONLY Normal [facility] Absolute lymphocyte countOrd ered By: Patrick Moreno on 05-08-2024 Lymphocytes Auto (Unsp spec) [#/Vol] 3.63 10*3/uL 0.83-4.51 [facility] Absolute neutrophil countOrd ered By: Patrick Moreno on 05-08-2024 Neutrophils (Bld) [#/Vol] 9.2 10*3/uL High 2.0-7.7 [facility] Absolute neutrophil count 9.2 X10^3/uL High 2.0-7.7 [facility] Albumin [Mass/Vol]Ordered By : Patrick Moreno on 05-08-2024 Serum or plasma albumin measurement (mass/volume) 3.5 g/dL 3.2-5.0 [facility] Albumin to globulin ratioOrd ered By: Patrick Moreno on 05-08-2024 Albumin/Globulin [Mass ratio] 0.8 {ratio} Low 0.9-2.4 [facility] Albumin to globulin ratio 0.8 RATIO Low 0.9-2.4 [facility] Automated lymphocyte count a s percentage of total leukocytesOrdered By: Patrick Moreno on 05-08-2024 Lymphocytes/100 WBC Auto (Unsp spec) 25.5 % 19-41 [facility] Basophil percentageOrdered B y: Patrick Moreno on 05-08-2024 Basophils/100 WBC (Bld) 0.6 % 0-1 [facility] Basophil percentage 0.6 % 0-1 [facility] Bilirubin Test strip Ql (U)O rdered By: Patrick Moreno on 05-08-2024 Bilirubin Ql (U) Negative Negative [facility] Bilirubin, totalOrdered By: Patrick Moreno on 05-08-2024 Bilirubin [Mass/Vol] 0.30 mg/dL 0.20-1.00 [facility] Comment on above: For patients on eltr ombopag therapy, use of Dimension Corona TBIL is not recommended. Bilirubin, total 0.30 mg/dL 0.20-1.00 [facility] Blood urea nitrogen (BUN)/cr eatinine ratioOrdered By: Patrick Moreno on 05-08-2024 Urea nitrogen/Creatinine [Mass ratio] 14.4 mg/mg - [facility] Blood urea nitrogen (BUN)/creatinine ratio 14.4 RATIO - [facility] CBC W/Diff, Automatedon 04-24 Absolute Lymph 3.63 X10 3/uL Normal 0.83-4.51 [facility] Comment on above: Performed By: #### L 500.4050, L501.2450, L100.0100 ####[facility] [address] [place], [address] Absolute Neut 9.2 X10 3/uL High 2.0-7.7 [facility] Comment on above: Performed By: #### L 500.4050, L501.2450, L100.0100 ####[facility] [address] [place], [address] Basophils/100 WBC (Bld) 0.6 % Normal 0-1 [facility] Comment on above: Performed By: #### L 500.4050, L501.2450, L100.0100 ####[facility] [address] [place], [address] Eosinophils/100 WBC (Bld) 3.0 % Normal 0-5 [facility] Comment on above: Performed By: #### L 500.4050, L501.2450, L100.0100 ####[facility] [address] [place], [address] Erythrocyte distribution width (RBC) [Ratio] 13.3 % Normal 11.6-14.6 [facility] Comment on above: Performed By: #### L 500.4050, L501.2450, L100.0100 ####[facility] [address] [place], [address] Hematocrit (Bld) [Volume fraction] 41.2 % Normal 40-54 [facility] Comment on above: Performed By: #### L 500.4050, L501.2450, L100.0100 ####[facility] [address] [place], [address] Hemoglobin (Bld) [Mass/Vol] 13.8 g/dL Normal 13.0-16.5 [facility] Comment on above: Performed By: #### L 500.4050, L501.2450, L100.0100 ####[facility] [address] [place], [address] IG% 0.600 Normal 0.0-0.9 [facility] Comment on above: Result Comment: IG% - Immature Granulocytes (promyelocytes, myelocytes andmetamyelocytes) > 1% indicates that a LEFT SHIFT is Present. Performed By: #### L 500.4050, L501.2450, L100.0100 ####[facility] [address] [place], [address] Lymphocytes/100 WBC (Bld) 25.5 % Normal 19-41 [facility] Comment on above: Performed By: #### L 500.4050, L501.2450, L100.0100 ####[facility] [address] [place], [address] MCH (RBC) [Entitic mass] 27.2 pg Normal 27.0-32.0 [facility] Comment on above: Performed By: #### L 500.4050, L501.2450, L100.0100 ####[facility] [address] [place], [address] MCHC (RBC) [Mass/Vol] 33.5 g/dL Normal 32-36 [place] Comment on above: Performed By: #### L 500.4050, L501.2450, L100.0100 ####[facility] [address] [place], [address] MCV (RBC) [Entitic vol] 81.1 fL Normal 80-94 [facility] Comment on above: Performed By: #### L 500.4050, L501.2450, L100.0100 ####[facility] [address] [place], [address] Monocytes/100 WBC (Bld) 5.8 % Normal 0-10 [facility] Comment on above: Performed By: #### L 500.4050, L501.2450, L100.0100 ####[facility] [address] [place], [address] Neutrophils/100 WBC (Bld) 64.5 % Normal 47-70 [facility] Comment on above: Performed By: #### L 500.4050, L501.2450, L100.0100 ####[facility] [address] [place], [address] Nucleated RBC (Bld) [#/Vol] 0 10*3/uL Normal 0-5 [facility] Comment on above: Performed By: #### L 500.4050, L501.2450, L100.0100 ####[facility] [address] [place], [address] Platelet mean volume (Bld) [Entitic vol] 9.2 fL Normal 6.2-12.0 [facility] Comment on above: Performed By: #### L 500.4050, L501.2450, L100.0100 ####[facility] [address] [place], [address] Platelets (Bld) [#/Vol] 498 10*3/uL High 150-450 [facility] Comment on above: Performed By: #### L 500.4050, L501.2450, L100.0100 ####[facility] [address] [place], [address] RBC (Bld) [#/Vol] 5.08 10*6/uL Normal 4.6-6.2 [facility] Comment on above: Performed By: #### L 500.4050, L501.2450, L100.0100 ####[facility] [address] [place], [address] RDW SD 39.3 fl Normal 35.1-43.9 [facility] Comment on above: Performed By: #### L 500.4050, L501.2450, L100.0100 ####[facility] [address] [place], [address] WBC (Bld) [#/Vol] 14.2 10*3/uL High 4.4-11.0 [facility] Comment on above: Performed By: #### L 500.4050, L501.2450, L100.0100 ####[facility] [address] [place], [address] Calcium [Mass/Vol]Ordered By : Patrick Moreno on 05-08-2024 Serum or plasma calcium measurement (mass/volume) 8.8 mg/dL 8.5-10.1 [facility] Carbon dioxide measurementOr dered By: Patrick Moreno on 05-08-2024 CO2 [Moles/Vol] 25.0 mmol/L 21.0-32.0 [facility] Carbon dioxide measurement 25.0 mmol/L 21.0-32.0 [facility] Chloride measurementOrdered By: Patrick Moreno on 05-08-2024 Chloride [Moles/Vol] 106 mmol/L 98-107 [facility] Chloride measurement 106 mmol/L 98-107 [facility] Clarity (U)Ordered By: Patrick Moreno on 05-08-2024 Urine clarity Clear Clear [facility] Color (U)Ordered By: Patrick mohan on 05-08-2024 Urine color determination Yellow Yellow [facility] Comprehensive Metabolic Prof ilon 05-08-2024 Albumin [Mass/Vol] 3.5 g/dL Normal 3.2-5.0 [facility] Comment on above: Performed By: #### L 500.4050, L501.2450, L100.0100 ####[facility] [address] [place], [address] Albumin/Globulin [Mass ratio] 0.8 {ratio} Low 0.9-2.4 [facility] Comment on above: Performed By: #### L 500.4050, L501.2450, L100.0100 ####[facility] [address] [place], [address] ALK P 127 U/L High 45-117 [facility] Comment on above: Performed By: #### L 500.4050, L501.2450, L100.0100 ####[facility] [address] [place], [address] ALT [Catalytic activity/Vol] 57 U/L Normal 16-61 [facility] Comment on above: Performed By: #### L 500.4050, L501.2450, L100.0100 ####[facility] [address] [place], [address] AST [Catalytic activity/Vol] 36 U/L Normal 15-37 [facility] Comment on above: Performed By: #### L 500.4050, L501.2450, L100.0100 ####[facility] [address] [place], [address] Bilirubin [Mass/Vol] 0.30 mg/dL Normal 0.20-1.00 [facility] Comment on above: Result Comment: For patients on eltrombopag therapy, use of Dimension [place]ona TBIL is not recommended. Performed By: #### L 500.4050, L501.2450, L100.0100 ####[facility] [address] [place], [address] BUN/CRE 14.4 RATIO Normal 10-20 [facility] Comment on above: Performed By: #### L 500.4050, L501.2450, L100.0100 ####[facility] [address] [place], [address] CA,Total 8.8 mg/dL Normal 8.5-10.1 [facility] Comment on above: Performed By: #### L 500.4050, L501.2450, L100.0100 ####[facility] [address] [place], [address] Chloride [Moles/Vol] 106 mmol/L Normal 98-107 [facility] Comment on above: Performed By: #### L 500.4050, L501.2450, L100.0100 ####[facility] [address] [place], [address] CO2 [Moles/Vol] 25.0 mmol/L Normal 21.0-32.0 [facility] Comment on above: Performed By: #### L 500.4050, L501.2450, L100.0100 ####[facility] [address] [place], [address] Creatinine [Mass/Vol] 0.97 mg/dL Normal 0.70-1.30 [facility] Comment on above: Result Comment: The validity of the calculated GFR GFRAA in patients over70 years has not been determined. Clinical correlation isessential. Performed By: #### L 500.4050, L501.2450, L100.0100 ####[facility] [address] [place], [address] ECRCL 131.74 ml/min Normal [facility] Comment on above: Performed By: #### L 500.4050, L501.2450, L100.0100 ####[facility] [address] [place], [address] EST GFR - AA 107 mL/min Normal >60 [facility] Comment on above: Result Comment: Afri can Andorran GFR Calc Performed By: #### L 500.4050, L501.2450, L100.0100 ####[facility] [address] [place], [address] GAP 7 Normal 5-15 [facility] Comment on above: Performed By: #### L 500.4050, L501.2450, L100.0100 ####[facility] [address] [place], [address] GFR/1.73 sq M.predicted among non-blacks MDRD (S/P/Bld) [Vol rate/Area] 88 mL/min/{1.73_m2} Normal >60 [facility] Comment on above: Result Comment: Non- GFR Calc Performed By: #### L 500.4050, L501.2450, L100.0100 ####[facility] [address] [place], [address] Globulin (S) [Mass/Vol] 4.3 g/dL High 2.2-4.2 [facility] Comment on above: Performed By: #### L 500.4050, L501.2450, L100.0100 ####[facility] [address] [place], [address] Glucose [Mass/Vol] 106 mg/dL Normal 74-106 [facility] Comment on above: Result Comment: Fast ing Glucose result from 100 to 125 mg/dLsuggests IMPAIRED HOMEOSTASIS per A.D.A. criteria. Performed By: #### L 500.4050, L501.2450, L100.0100 ####[facility] [address] [place], [address] Potassium [Moles/Vol] 3.6 mmol/L Normal 3.5-5.1 [facility] Comment on above: Performed By: #### L 500.4050, L501.2450, L100.0100 ####[facility] [address] [place], [address] Sodium [Moles/Vol] 138 mmol/L Normal 136-145 [facility] Comment on above: Performed By: #### L 500.4050, L501.2450, L100.0100 ####[facility] [address] [place], [address] T PROT 7.8 g/dL Normal 6.4-8.2 [facility] Comment on above: Performed By: #### L 500.4050, L501.2450, L100.0100 ####[facility] [address] [place], [address] Urea nitrogen [Mass/Vol] 14 mg/dL Normal 7-18 [facility] Comment on above: Performed By: #### L 500.4050, L501.2450, L100.0100 ####[facility] [address] [place], [address] Creatinine [Mass/Vol]Ordered By: Patrick Moreno on 05-08-2024 Serum or plasma creatinine measurement (mass/volume) 0.97 mg/dL 0.70-1.30 [facility] Emergency Department Summary on 05-08-2024 Emergency Department Summary Normal [facility] Eosinophil percentageOrdered By: Patrick Moreno on 05-08-2024 Eosinophils/100 WBC (Bld) 3.0 % 0-5 [facility] Eosinophil percentage 3.0 % 0-5 [place] Epithelial cells.squamous LM Ql (Urine sed)Ordered By: Patrick Moreno on 05-08-2024 Epithelial cells.squamous LM.HPF (Urine sed) [#/Area] 0 /[HPF] 0-5 [facility] Erythrocyte distribution wid th (RBC) [Ratio]Ordered By: Patrick Moreno on 05-08-2024 Erythrocyte distribution width ratio 13.3 % 11.6-14.6 [facility] Erythrocyte distribution width standard deviation 39.3 fl 35.1-43.9 [facility] Erythrocyte distribution wid th ratioOrdered By: Patrick Moreno on 05-08-2024 Erythrocyte distribution width (RBC) [Ratio] 13.3 % 11.6-14.6 [facility] Erythrocyte distribution wid th standard deviationOrdered By: Patrick Moreno on 05-08-2024 Erythrocyte distribution width (RBC) [Entitic vol] 39.3 fL 35.1-43.9 [facility] Erythrocyte distribution width (RBC) [Ratio] 39.3 fl 35.1-43.9 [facility] Estimated glomerular filtrat ion rate (GFR) AmericanOrdered By: Patrick Moreno on 05-08-2024 Estimated GFR (MDRD) Amer 107 mL/min >60 [facility] Comment on above: GFR Calc Estimated glomerular filtration rate (GFR) 107 mL/min >60 [facility] Estimation of creatinine oponam aranceOrdered By: Patrick Moreno on 05-08-2024 Estimated Creatinine Clearance Calc 131.74 ml/min [facility] Estimation of creatinine clearance 131.74 ml/min [facility] Glomerular filtration rate ( GFR) estimationOrdered By: Patrick Moreno on 05-08-2024 Estimated GFR (MDRD) Non-Af Amer 88 mL/min >60 [facility] Comment on above: Non- GFR Calc GFR/1.73 sq M.predicted among non-blacks MDRD (S/P/Bld) [Vol rate/Area] 88 mL/min/{1.73_m2} >60 [facility] Glomerular filtration rate (GFR) estimation 88 mL/min >60 [facility] Glucose Ql (U)Ordered By: Az Moreno on 05-08-2024 Urine Glucose (UA) Normal mg/dl Normal [facility] Glucose measurementOrdered B y: Patrick Moreno on 05-08-2024 Glucose [Mass/Vol] 106 mg/dL 74-106 [facility] Comment on above: Fasting Glucose resu lt from 100 to 125 mg/dL suggests IMPAIRED HOMEOSTASIS per A.D.A. criteria. Glucose measurement 106 mg/dL 74-106 [facility] Hematocrit Auto (Bld) [Volum e fraction]Ordered By: Patrick Moreno on 05-08-2024 Hematocrit (Bld) [Volume fraction] 41.2 % 40-54 [facility] Automated blood hematocrit (percentage) 41.2 % 40-54 [facility] Hemoglobin measurementOrdere d By: Patrick Moreno on 05-08-2024 Hemoglobin (Bld) [Mass/Vol] 13.8 g/dL 13.0-16.5 [facility] Hemoglobin measurement 13.8 g/dL 13.0-16.5 [facility] Immature granulocytes/100 WB C Auto (Bld)Ordered By: Patrick Moreno on 05-08-2024 Immature granulocytes/100 WBC (Bld) 0.600 % 0.0-0.9 [facility] Comment on above: IG% - Immature Granu locytes (promyelocytes, myelocytes and metamyelocytes) > 1% indicates that a LEFT SHIFT is Present. Automated immature granulocyte percentage 0.600 % 0.0-0.9 [facility] Ketones Test strip Ql (U)Ord ered By: Patrick Moreno on 05-08-2024 Ketones Ql (U) Negative Negative [facility] Laboratory - Chemistry and C hemistry - challengeOrdered By: Patrick Moreno on 05-08-2024 AST [Catalytic activity/Vol] 36 U/L 15-37 [facility] Lipaseon 05-08-2024 Lipase [Catalytic activity/Vol] 29 U/L Low 73-393 [facility] Comment on above: Performed By: #### L 500.4050, L501.2450, L100.0100 ####[facility] [address] [place], [address] Lipase measurementOrdered By : Patrick Moreno on 05-08-2024 Lipase [Catalytic activity/Vol] 29 U/L Low 73-393 [facility] Lipase measurement 29 U/L Low 73-393 [facility] Lymphocytes Auto (Unsp spec) [#/Vol]Ordered By: Patrick Moreno on 05-08-2024 Lymphocytes (Bld) [#/Vol] 3.63 10*3/uL 0.83-4.51 [facility] Absolute lymphocyte count 3.63 X10^3/uL 0.83-4.51 [facility] Lymphocytes/100 WBC Auto (Un sp spec)Ordered By: Patrick Moreno on 05-08-2024 Lymphocytes/100 WBC (Bld) 25.5 % - [facility] Automated lymphocyte count as percentage of total leukocytes 25.5 % -41 [facility] MCV (RBC) [Entitic vol]Order ed By: Patrick Moreno on 05-08-2024 MCV (mean corpuscular volume) determination 81.1 fL 80-94 [facility] MCV (mean corpuscular volume ) determinationOrdered By: Patrick Moreno on 05-08-2024 MCV (RBC) [Entitic vol] 81.1 fL 80-94 [facility] Mean corpuscular hemoglobin (MCH) determinationOrdered By: Patrick Moreno on 05-08-2024 MCH (RBC) [Entitic mass] 27.2 pg 27.0-32.0 [facility] Mean corpuscular hemoglobin (MCH) determination 27.2 pg 27.0-32.0 [facility] Mean corpuscular hemoglobin concentration (MCHC) determinationOrdered By: Patrick Moreno on 05-08-2024 MCHC (RBC) [Mass/Vol] 33.5 g/dL 32-36 [place] Mean corpuscular hemoglobin concentration (MCHC) determination 33.5 g/dL -36 [facility] Mean platelet volume determi nationOrdered By: Patrick Moreno on 05-08-2024 Platelet mean volume (Bld) [Entitic vol] 9.2 fL 6.2-12.0 [facility] Mean platelet volume determination 9.2 fl 6.2-12.0 [facility] Microscopic analysis of urin e for red blood cells (RBC)Ordered By: Patrick Moreno on 05-08-2024 Urine RBC 0 SEEN /hpf 0-5 [facility] Monocyte percentageOrdered B y: Patrick Moreno on 05-08-2024 Monocytes/100 WBC (Bld) 5.8 % 0-10 [facility] Monocyte percentage 5.8 % 0-10 [facility] Mucus LM Ql (Urine sed)Order ed By: Patrick Moreno on 05-08-2024 Mucus Ql (Urine sed) 1+ /hpf [facility] Mucus detection in urine sediment by light microscopy 1+ /hpf [facility] Neutrophil percentageOrdered By: Patrick Moreno on 05-08-2024 Neutrophils/100 WBC (Bld) 64.5 % 47-70 [facility] Neutrophil percentage 64.5 % 47-70 [place] Nitrite Test strip Ql (U)Ord ered By: Patrick Moreno on 05-08-2024 Nitrite Ql (U) Negative Negative [facility] No Panel InformationOrdered By: Patrick Moreno on 05-08-2024 36 U/L 15-37 [facility] Nucleated red blood cell per centageOrdered By: Patrick Moreno on 05-08-2024 Nucleated RBC/100 WBC (Bld) [Ratio] 0 % 0-5 [facility] Nucleated red blood cell percentage 0 % 0-5 [facility] Platelet countOrdered By: Az Moreno on 05-08-2024 Platelets (Bld) [#/Vol] 498 10*3/uL High 150-450 [facility] Platelet count 498 K/mm3 High 150-450 [facility] Potassium measurementOrdered By: Patrick Moreno on 05-08-2024 Potassium [Moles/Vol] 3.6 mmol/L 3.5-5.1 [place] Potassium measurement 3.6 mmol/L 3.5-5.1 [place] Protein Test strip Ql (U)Ord ered By: Patrick Moreno on 05-08-2024 Protein Ql (U) 30 mg/dl High Negative [facility] Urine protein assay by test strip, semi-quantitative 30 mg/dl High Negative [facility] RBC Auto (Bld) [#/Vol]Ordere d By: Patrick Moreno on 05-08-2024 RBC (Bld) [#/Vol] 5.08 10*6/uL 4.6-6.2 [facility] Automated blood erythrocyte count 5.08 M/mm3 4.6-6.2 [facility] Serum anion gap measurementO rdered By: Patrick Moreno on 05-08-2024 Anion gap [Moles/Vol] 7 mmol/L 08-05 [place] Serum anion gap measurement 7 - [facility] Serum globulin measurementOr dered By: Patrick Moreno on 05-08-2024 Globulin (S) [Mass/Vol] 4.3 g/dL High 2.2-4.2 [facility] Serum globulin measurement 4.3 g/dL High 2.2-4.2 [facility] Serum or plasma alanine vanegas otransferase (ALT) measurementOrdered By: Patrick Moreno on 05-08-2024 ALT [Catalytic activity/Vol] 57 U/L 16-61 [facility] Serum or plasma albumin paramjit urement (mass/volume)Ordered By: Patrick Moreno on 05-08-2024 Albumin [Mass/Vol] 3.5 g/dL 3.2-5.0 [facility] Serum or plasma alkaline thomas sphatase measurementOrdered By: Patrick Moreno on 05-08-2024 ALP [Catalytic activity/Vol] 127 U/L High 45-117 [facility] Serum or plasma calcium paramjit urement (mass/volume)Ordered By: Patrick Moreno on 05-08-2024 Calcium [Mass/Vol] 8.8 mg/dL 8.5-10.1 [facility] Serum or plasma creatinine m easurement (mass/volume)Ordered By: Patrick Moreno on 05-08-2024 Creatinine [Mass/Vol] 0.97 mg/dL 0.70-1.30 [place] Comment on above: The validity of the calculated GFR & GFRAA in patients over 70 years has not been determined. Clinical correlation is essential. Serum or plasma urea nitroge n measurement (mass/volume)Ordered By: Patrick Moreno on 05-08-2024 Urea nitrogen [Mass/Vol] 14 mg/dL - [facility] Sodium levelOrdered By: Patrick Moreno on 05-08-2024 Sodium [Moles/Vol] 138 mmol/L 136-145 [facility] Sodium level 138 mmol/L 136-145 [facility] Specific gravity (U) [Rel de nsity]Ordered By: Patrick Moreno on 05-08-2024 Urine specific gravity measurement 1.025 1.002-1.030 [facility] Squamous epithelial cells de tection in urine sediment by light microscopyOrdered By: Patrick Moreno on 05-08-2024 Epithelial cells.squamous LM Ql (Urine sed) 0 SEEN /hpf 0-5 [facility] Total proteinOrdered By: Jessica Moreno on 05-08-2024 Protein [Mass/Vol] 7.8 g/dL 6.4-8.2 [facility] Total protein 7.8 g/dL 6.4-8.2 [facility] Urea nitrogen [Mass/Vol]Orde red By: Patrick Moreno on 05-08-2024 Serum or plasma urea nitrogen measurement (mass/volume) 14 mg/dL 10-08 [facility] Urinalysis, Completeon 05-08 Mucus Ql (Urine sed) 1+ /hpf Normal [facility] Comment on above: Order Comment: CLEAN CATCH Performed By: #### L 400.0001 ####[facility] [address] [facility] [address] RBC 0 SEEN Normal 0-5 [facility] Comment on above: Order Comment: CLEAN CATCH Performed By: #### L 400.0001 ####[facility] [address] [facility] [address] BACTERIA 0 SEEN Normal None Seen [facility] Comment on above: Order Comment: CLEAN CATCH Performed By: #### L 400.0001 ####[facility] [address] [facility] [id number] EPI,SQUAMOUS 0 SEEN Normal 0-5 [facility] Comment on above: Order Comment: CLEAN CATCH Performed By: #### L 400.0001 ####[facility] [address] [place], [place], [id number] WBC 0 SEEN Normal 0-5 [facility] Comment on above: Order Comment: CLEAN CATCH Performed By: #### L 400.0001 ####[facility] [address] [place], [place], [address] Urine blood detectionOrdered By: Patrick Moreno on 05-08-2024 Urine Occult Blood 10 /ul High Negative [facility] Urine blood detection 10 /ul High Negative [place] Urine clarityOrdered By: Jessica Moreno on 05-08-2024 Clarity (U) Clear Clear [facility] Urine color determinationOrd ered By: Patrick Moreno on 05-08-2024 Color (U) Yellow Yellow [facility] Urine glucose detectionOrder ed By: Patrick Moreno on 05-08-2024 Glucose Ql (U) Normal mg/dl Normal [facility] Urine glucose detection Normal mg/dl Normal [facility] Urine leukocyte esterase det ection by dipstickOrdered By: Patrick Moreno on 05-08-2024 Leukocyte esterase Test strip Ql (U) Negative Negative [facility] Urine pHOrdered By: Patrick alvarenga on 05-08-2024 pH (U) 5.0 [pH] 5.0 - 8.0 [facility] Urine sediment bacteria coun t by microscopy (number/high power field)Ordered By: Patrick Moreno on 05-08-2024 Bacteria LM.HPF (Urine sed) [#/Area] 0 /[HPF] None Seen [facility] Urine specific gravity measu rementOrdered By: Patrick Moreno on 05-08-2024 Specific gravity (U) [Rel density] 1.025 1.002-1.030 [facility] Urine total bilirubin detect ion by test stripOrdered By: Patrick Moreno on 05-08-2024 Urine total bilirubin detection by test strip Negative Negative [facility] Urine urobilinogen measureme ntOrdered By: Patrick Moreno on 05-08-2024 Urobilinogen Ql (U) Normal mg/dl Normal [place] Urobilinogen Ql (U)Ordered B y: Patrick Stacydamian on 05-08-2024 Urine Urobilinogen Normal mg/dl Normal [facility] White blood cell (WBC) count Ordered By: Patrick Stacydamian on 05-08-2024 WBC (Bld) [#/Vol] 14.2 10*3/uL High 4.4-11.0 [facility] White blood cell (WBC) count 14.2 K/mm3 High 4.4-11.0 [facility] White blood cell countOrdere d By: Patrick Moreno on 05-08-2024 Urine WBC 0 SEEN /hpf 0-5 [facility] White blood cell count 0 SEEN /hpf 0-5 [facility] White blood cell count 0 SEEN /hpf None Seen [facility] pH (U)Ordered By: Patrick Regisridge greenwood on 05-08-2024 Urine pH 5.0 5.0 - 8.0 [facility] Lipid Profileon 05-04-2024 CHOL Normal 200 [facility] Comment on above: Result Comment: Canc elled via OM: Order cancelled - Patient discharged Performed By: #### L 500.4100 ####[facility] [address] [facility] [address] HDL Normal [facility] Comment on above: Result Comment: Canc elled via OM: Order cancelled - Patient discharged Performed By: #### L 500.4100 ####[facility] [address] [facility] [address] LDL Normal 0-130 [facility] Comment on above: Result Comment: Canc elled via OM: Order cancelled - Patient discharged Performed By: #### L 500.4100 ####[facility] [address] [place], [address] TRIG Normal [facility] Comment on above: Result Comment: Canc elled via OM: Order cancelled - Patient discharged Performed By: #### L 500.4100 ####[facility] [address] [place], [place], [address] VLDL Normal 5-40 [facility] Comment on above: Result Comment: Canc elled via OM: Order cancelled - Patient discharged Performed By: #### L 880.6585 ####[facility] [address] [place], [place], [id number] Urine Cultureon 05-04-2024 URC Mixed Gram Positive Organisms [place] Count 11,000-25,000 [facility] Mixed contaminants. Submit a new specimen if indicated. Normal [facility] Comment on above: Performed By: #### M 100.2200 ####[facility] [address] [place], [place], [id number] ALP [Catalytic activity/Vol] Ordered By: Yana Jaron on 05-03-2024 Serum or plasma alkaline phosphatase measurement 98 U/L 45-117 [facility] ALT [Catalytic activity/Vol] Ordered By: Yana Jaron on 05-03-2024 Serum or plasma alanine aminotransferase (ALT) measurement 37 U/L 16-61 [facility] Absolute lymphocyte countOrd ered By: Yana Jaron on 05-03-2024 Lymphocytes Auto (Unsp spec) [#/Vol] 2.81 10*3/uL 0.83-4.51 [facility] Absolute neutrophil countOrd ered By: Yana Jaron on 05-03-2024 Neutrophils (Bld) [#/Vol] 2.3 10*3/uL 2.0-7.7 [facility] Absolute neutrophil count 2.3 X10^3/uL 2.0-7.7 [facility] Albumin [Mass/Vol]Ordered By : Yana Jaron on 05-03-2024 Serum or plasma albumin measurement (mass/volume) 3.1 g/dL Low 3.2-5.0 [facility] Albumin to globulin ratioOrd ered By: Yana Jaron on 05-03-2024 Albumin/Globulin [Mass ratio] 0.9 {ratio} 0.9-2.4 [facility] Albumin to globulin ratio 0.9 RATIO 0.9-2.4 [facility] Automated lymphocyte count a s percentage of total leukocytesOrdered By: Yana Salmeron on 05-03-2024 Lymphocytes/100 WBC Auto (Unsp spec) 48.0 % High 19-41 [facility] Bacteria LM.HPF (Urine sed) [#/Area]Ordered By: Sebastian Puri on 05-03-2024 Urine sediment bacteria count by microscopy (number/high power field) 1+ /hpf None Seen [facility] Basophil percentageOrdered B y: Yana Salmeron on 05-03-2024 Basophils/100 WBC (Bld) 0.5 % 0-1 [facility] Basophil percentage 0.5 % 0-1 [facility] Bilirubin Test strip Ql (U)O rdered By: Sebastian Puri on 05-03-2024 Bilirubin Ql (U) 1 mg/dL High Negative [facility] Comment on above: YCOLOR OF URINE MAY AFFECT DIPSTICK RESULTS. Bilirubin, totalOrdered By: Yana Salmeron on 05-03-2024 Bilirubin [Mass/Vol] 0.20 mg/dL 0.20-1.00 [facility] Comment on above: For patients on eltr ombopag therapy, use of Dimension [place] TBIL is not recommended. Bilirubin, total 0.20 mg/dL 0.20-1.00 [facility] Blood urea nitrogen (BUN)/cr eatinine ratioOrdered By: Yana Salmeron on 05-03-2024 Urea nitrogen/Creatinine [Mass ratio] 25.4 mg/mg High 10-20 [facility] Blood urea nitrogen (BUN)/creatinine ratio 25.4 RATIO High 10-20 [facility] CBC W/Diff, Automatedon 04-24 Absolute Lymph 2.81 X10 3/uL Normal 0.83-4.51 [facility] Comment on above: Performed By: #### L 500.4050, L100.0100 ####[facility] [address] [place], [place], [id number] Absolute Neut 2.3 X10 3/uL Normal 2.0-7.7 [facility] Comment on above: Performed By: #### L 500.4050, L100.0100 ####[facility] [address] [place], [address] Basophils/100 WBC (Bld) 0.5 % Normal 0-1 [facility] Comment on above: Performed By: #### L 500.4050, L100.0100 ####[facility] [address] [place], [address] Eosinophils/100 WBC (Bld) 6.0 % High 0-5 [facility] Comment on above: Performed By: #### L 500.4050, L100.0100 ####[facility] [address] [place], [address] Erythrocyte distribution width (RBC) [Ratio] 14.0 % Normal 11.6-14.6 [facility] Comment on above: Performed By: #### L 500.4050, L100.0100 ####[facility] [address] [place], [address] Hematocrit (Bld) [Volume fraction] 38.7 % Low 40-54 [facility] Comment on above: Performed By: #### L 500.4050, L100.0100 ####[facility] [address] [place], [address] Hemoglobin (Bld) [Mass/Vol] 12.4 g/dL Low 13.0-16.5 [facility] Comment on above: Performed By: #### L 500.4050, L100.0100 ####[facility] [address] [place], [address] IG% 0.300 Normal 0.0-0.9 [facility] Comment on above: Result Comment: IG% - Immature Granulocytes (promyelocytes, myelocytes andmetamyelocytes) > 1% indicates that a LEFT SHIFT is Present. Performed By: #### L 500.4050, L100.0100 ####[facility] [address] [place], [address] Lymphocytes/100 WBC (Bld) 48.0 % High 19-41 [facility] Comment on above: Performed By: #### L 500.4050, L100.0100 ####[facility] [address] [place], [address] MCH (RBC) [Entitic mass] 26.3 pg Low 27.0-32.0 [facility] Comment on above: Performed By: #### L 500.4050, L100.0100 ####[facility] [address] [place], [address] MCHC (RBC) [Mass/Vol] 32.0 g/dL Normal 32-36 [place] Comment on above: Performed By: #### L 500.4050, L100.0100 ####[facility] [address] [place], [address] MCV (RBC) [Entitic vol] 82.2 fL Normal 80-94 [facility] Comment on above: Performed By: #### L 500.4050, L100.0100 ####[facility] [address] [place], [address] Monocytes/100 WBC (Bld) 6.7 % Normal 0-10 [facility] Comment on above: Performed By: #### L 500.4050, L100.0100 ####[facility] [address] [place], [address] Neutrophils/100 WBC (Bld) 38.5 % Low 47-70 [facility] Comment on above: Performed By: #### L 500.4050, L100.0100 ####[facility] [address] [place], [address] Nucleated RBC (Bld) [#/Vol] 0 10*3/uL Normal 0-5 [facility] Comment on above: Performed By: #### L 500.4050, L100.0100 ####[facility] [address] [place], [address] Platelet mean volume (Bld) [Entitic vol] 8.9 fL Normal 6.2-12.0 [facility] Comment on above: Performed By: #### L 500.4050, L100.0100 ####[facility] [address] [place], [address] Platelets (Bld) [#/Vol] 293 10*3/uL Normal 150-450 [facility] Comment on above: Performed By: #### L 500.4050, L100.0100 ####[facility] [address] [place], [address] RBC (Bld) [#/Vol] 4.71 10*6/uL Normal 4.6-6.2 [facility] Comment on above: Performed By: #### L 500.4050, L100.0100 ####[facility] [address] [place], [address] RDW SD 42.0 fl Normal 35.1-43.9 [facility] Comment on above: Performed By: #### L 500.4050, L100.0100 ####[facility] [address] [place], [address] WBC (Bld) [#/Vol] 5.9 10*3/uL Normal 4.4-11.0 [facility] Comment on above: Performed By: #### L 500.4050, L100.0100 ####[facility] [address] [place], [address] Absolute Lymph 2.63 X10 3/uL Normal 0.83-4.51 [facility] Comment on above: Performed By: #### L 503.6005, L500.4050, L100.0100, L300.3900, M100.7900, L300.4310, L501.4020, L501.2450 ####[facility] [address] [place], [address] Absolute Neut 3.9 X10 3/uL Normal 2.0-7.7 [facility] Comment on above: Performed By: #### L 503.6005, L500.4050, L100.0100, L300.3900, M100.7900, L300.4310, L501.4020, L501.2450 ####[facility] [address] [place], [address] Basophils/100 WBC (Bld) 0.5 % Normal 0-1 [facility] Comment on above: Performed By: #### L 503.6005, L500.4050, L100.0100, L300.3900, M100.7900, L300.4310, L501.4020, L501.2450 ####[facility] [address] [place], [address] Eosinophils/100 WBC (Bld) 4.1 % Normal 0-5 [facility] Comment on above: Performed By: #### L 503.6005, L500.4050, L100.0100, L300.3900, M100.7900, L300.4310, L501.4020, L501.2450 ####[facility] [address] [place], [address] Erythrocyte distribution width (RBC) [Ratio] 14.0 % Normal 11.6-14.6 [facility] Comment on above: Performed By: #### L 503.6005, L500.4050, L100.0100, L300.3900, M100.7900, L300.4310, L501.4020, L501.2450 ####[facility] [address] [place], [address] Hematocrit (Bld) [Volume fraction] 42.5 % Normal 40-54 [facility] Comment on above: Performed By: #### L 503.6005, L500.4050, L100.0100, L300.3900, M100.7900, L300.4310, L501.4020, L501.2450 ####[facility] [address] [place], [address] Hemoglobin (Bld) [Mass/Vol] 13.9 g/dL Normal 13.0-16.5 [facility] Comment on above: Performed By: #### L 503.6005, L500.4050, L100.0100, L300.3900, M100.7900, L300.4310, L501.4020, L501.2450 ####[facility] [address] [place], [address] IG% 0.400 Normal 0.0-0.9 [facility] Comment on above: Result Comment: IG% - Immature Granulocytes (promyelocytes, myelocytes andmetamyelocytes) > 1% indicates that a LEFT SHIFT is Present. Performed By: #### L 503.6005, L500.4050, L100.0100, L300.3900, M100.7900, L300.4310, L501.4020, L501.2450 ####[facility] [address] [place], [address] Lymphocytes/100 WBC (Bld) 35.7 % Normal 19-41 [facility] Comment on above: Performed By: #### L 503.6005, L500.4050, L100.0100, L300.3900, M100.7900, L300.4310, L501.4020, L501.2450 ####[facility] [address] [place], [address] MCH (RBC) [Entitic mass] 26.7 pg Low 27.0-32.0 [facility] Comment on above: Performed By: #### L 503.6005, L500.4050, L100.0100, L300.3900, M100.7900, L300.4310, L501.4020, L501.2450 ####[facility] [address] [place], [address] MCHC (RBC) [Mass/Vol] 32.7 g/dL Normal 32-36 [facility] Comment on above: Performed By: #### L 503.6005, L500.4050, L100.0100, L300.3900, M100.7900, L300.4310, L501.4020, L501.2450 ####[facility] [address] [place], [address] MCV (RBC) [Entitic vol] 81.6 fL Normal 80-94 [facility] Comment on above: Performed By: #### L 503.6005, L500.4050, L100.0100, L300.3900, M100.7900, L300.4310, L501.4020, L501.2450 ####[facility] [address] [place], [address] Monocytes/100 WBC (Bld) 6.5 % Normal 0-10 [facility] Comment on above: Performed By: #### L 503.6005, L500.4050, L100.0100, L300.3900, M100.7900, L300.4310, L501.4020, L501.2450 ####[facility] [address] [place], [address] Neutrophils/100 WBC (Bld) 52.8 % Normal 47-70 [facility] Comment on above: Performed By: #### L 503.6005, L500.4050, L100.0100, L300.3900, M100.7900, L300.4310, L501.4020, L501.2450 ####[facility] [address] [place], [address] Nucleated RBC (Bld) [#/Vol] 0 10*3/uL Normal 0-5 [facility] Comment on above: Performed By: #### L 503.6005, L500.4050, L100.0100, L300.3900, M100.7900, L300.4310, L501.4020, L501.2450 ####[facility] [address] [place], [address] Platelet mean volume (Bld) [Entitic vol] 9.1 fL Normal 6.2-12.0 [facility] Comment on above: Performed By: #### L 503.6005, L500.4050, L100.0100, L300.3900, M100.7900, L300.4310, L501.4020, L501.2450 ####[facility] [address] [place], [address] Platelets (Bld) [#/Vol] 350 10*3/uL Normal 150-450 [facility] Comment on above: Performed By: #### L 503.6005, L500.4050, L100.0100, L300.3900, M100.7900, L300.4310, L501.4020, L501.2450 ####[facility] [address] [place], [address] RBC (Bld) [#/Vol] 5.21 10*6/uL Normal 4.6-6.2 [facility] Comment on above: Performed By: #### L 503.6005, L500.4050, L100.0100, L300.3900, M100.7900, L300.4310, L501.4020, L501.2450 ####[facility] [address] [place], [address] RDW SD 41.3 fl Normal 35.1-43.9 [facility] Comment on above: Performed By: #### L 503.6005, L500.4050, L100.0100, L300.3900, M100.7900, L300.4310, L501.4020, L501.2450 ####[facility] [address] [place], [address] WBC (Bld) [#/Vol] 7.4 10*3/uL Normal 4.4-11.0 [facility] Comment on above: Performed By: #### L 503.6005, L500.4050, L100.0100, L300.3900, M100.7900, L300.4310, L501.4020, L501.2450 ####[facility] [address] [place], [place], [address] Calcium [Mass/Vol]Ordered By : Yana Salmeron on 05-03-2024 Serum or plasma calcium measurement (mass/volume) 7.9 mg/dL Low 8.5-10.1 [facility] Carbon dioxide measurementOr dered By: Yana Jaron on 05-03-2024 CO2 [Moles/Vol] 23.0 mmol/L 21.0-32.0 [facility] Carbon dioxide measurement 23.0 mmol/L 21.0-32.0 [facility] Chloride measurementOrdered By: Yana Jaron on 05-03-2024 Chloride [Moles/Vol] 107 mmol/L 98-107 [facility] Chloride measurement 107 mmol/L 98-107 [facility] Clarity (U)Ordered By: Sebastian Puri on 05-03-2024 Urine clarity Clear Clear [facility] Color (U)Ordered By: Sebastian Schroeder on 05-03-2024 Urine color determination Yellow Yellow [facility] Comprehensive Metabolic Prof ilon 05-03-2024 Albumin [Mass/Vol] 3.1 g/dL Low 3.2-5.0 [facility] Comment on above: Performed By: #### L 500.4050, L100.0100 ####[facility] [address] [place], [address] Albumin/Globulin [Mass ratio] 0.9 {ratio} Normal 0.9-2.4 [facility] Comment on above: Performed By: #### L 500.4050, L100.0100 ####[facility] [address] [place], [address] ALK P 98 U/L Normal 45-117 [facility] Comment on above: Performed By: #### L 500.4050, L100.0100 ####[facility] [address] [place], [address] ALT [Catalytic activity/Vol] 37 U/L Normal 16-61 [facility] Comment on above: Performed By: #### L 500.4050, L100.0100 ####[facility] [address] [place], [address] AST [Catalytic activity/Vol] 15 U/L Normal 15-37 [facility] Comment on above: Performed By: #### L 500.4050, L100.0100 ####[facility] [address] [place], [address] Bilirubin [Mass/Vol] 0.20 mg/dL Normal 0.20-1.00 [facility] Comment on above: Result Comment: For patients on eltrombopag therapy, use of Dimension [place] TBIL is not recommended. Performed By: #### L 500.4050, L100.0100 ####[facility] [address] [place], [address] BUN/CRE 25.4 RATIO High 10-20 [facility] Comment on above: Performed By: #### L 500.4050, L100.0100 ####[facility] [address] [place], [address] CA,Total 7.9 mg/dL Low 8.5-10.1 [facility] Comment on above: Performed By: #### L 500.4050, L100.0100 ####[facility] [address] [place], [address] Chloride [Moles/Vol] 107 mmol/L Normal 98-107 [facility] Comment on above: Performed By: #### L 500.4050, L100.0100 ####[facility] [address] [place], [address] CO2 [Moles/Vol] 23.0 mmol/L Normal 21.0-32.0 [facility] Comment on above: Performed By: #### L 500.4050, L100.0100 ####[facility] [address] [place], [address] Creatinine [Mass/Vol] 0.83 mg/dL Normal 0.70-1.30 [facility] Comment on above: Result Comment: The validity of the calculated GFR GFRAA in patients over70 years has not been determined. Clinical correlation isessential. Performed By: #### L 500.4050, L100.0100 ####[facility] [address] [place], [address] ECRCL 155.38 ml/min Normal [facility] Comment on above: Performed By: #### L 500.4050, L100.0100 ####[facility] [address] [place], [address] EST GFR - AA 128 mL/min Normal >60 [facility] Comment on above: Result Comment: Afri can Andorran GFR Calc Performed By: #### L 500.4050, L100.0100 ####[facility] [address] [place], [address] GAP 8 Normal 5-15 [facility] Comment on above: Performed By: #### L 500.4050, L100.0100 ####[facility] [address] [place], [address] GFR/1.73 sq M.predicted among non-blacks MDRD (S/P/Bld) [Vol rate/Area] 106 mL/min/{1.73_m2} Normal >60 [facility] Comment on above: Result Comment: Non- GFR Calc Performed By: #### L 500.4050, L100.0100 ####[facility] [address] [place], [address] Globulin (S) [Mass/Vol] 3.6 g/dL Normal 2.2-4.2 [facility] Comment on above: Performed By: #### L 500.4050, L100.0100 ####[facility] [address] [place], [address] Glucose [Mass/Vol] 103 mg/dL Normal 74-106 [facility] Comment on above: Result Comment: Fast ing Glucose result from 100 to 125 mg/dLsuggests IMPAIRED HOMEOSTASIS per A.D.A. criteria. Performed By: #### L 500.4050, L100.0100 ####[facility] [address] [place], [address] Potassium [Moles/Vol] 3.9 mmol/L Normal 3.5-5.1 [facility] Comment on above: Performed By: #### L 500.4050, L100.0100 ####[facility] [address] [place], [address] Sodium [Moles/Vol] 137 mmol/L Normal 136-145 [facility] Comment on above: Performed By: #### L 500.4050, L100.0100 ####[facility] [address] [place], [address] T PROT 6.7 g/dL Normal 6.4-8.2 [facility] Comment on above: Performed By: #### L 500.4050, L100.0100 ####[facility] [address] [place], [address] Urea nitrogen [Mass/Vol] 21 mg/dL High 7-18 [facility] Comment on above: Performed By: #### L 500.4050, L100.0100 ####[facility] [address] [place], [address] Albumin [Mass/Vol] 3.4 g/dL Normal 3.2-5.0 [facility] Comment on above: Order Comment: 'TROP ' Serial specimen #1, #2 or #3: 1 Performed By: #### L 503.6005, L500.4050, L100.0100, L300.3900, M100.7900, L300.4310, L501.4020, L501.2450 ####[facility] [address] [place], [address] Albumin/Globulin [Mass ratio] 0.8 {ratio} Low 0.9-2.4 [facility] Comment on above: Order Comment: 'TROP ' Serial specimen #1, #2 or #3: 1 Performed By: #### L 503.6005, L500.4050, L100.0100, L300.3900, M100.7900, L300.4310, L501.4020, L501.2450 ####[facility] [address] [place], [address] ALK P 112 U/L Normal 45-117 [facility] Comment on above: Order Comment: 'TROP ' Serial specimen #1, #2 or #3: 1 Performed By: #### L 503.6005, L500.4050, L100.0100, L300.3900, M100.7900, L300.4310, L501.4020, L501.2450 ####[facility] [address] [place], [address] ALT [Catalytic activity/Vol] 44 U/L Normal 16-61 [facility] Comment on above: Order Comment: 'TROP ' Serial specimen #1, #2 or #3: 1 Performed By: #### L 503.6005, L500.4050, L100.0100, L300.3900, M100.7900, L300.4310, L501.4020, L501.2450 ####[facility] [address] [place], [address] AST [Catalytic activity/Vol] 22 U/L Normal 15-37 [facility] Comment on above: Order Comment: 'TROP ' Serial specimen #1, #2 or #3: 1 Performed By: #### L 503.6005, L500.4050, L100.0100, L300.3900, M100.7900, L300.4310, L501.4020, L501.2450 ####[facility] [address] [place], [place], [id number] Bilirubin [Mass/Vol] 0.30 mg/dL Normal 0.20-1.00 [facility] Comment on above: Order Comment: 'TROP ' Serial specimen #1, #2 or #3: 1 Result Comment: For patients on eltrombopag therapy, use of Dimension [place] TBIL is not recommended. Performed By: #### L 503.6005, L500.4050, L100.0100, L300.3900, M100.7900, L300.4310, L501.4020, L501.2450 ####[facility] [address] [place], [address] BUN/CRE 18.1 RATIO Normal 10-20 [facility] Comment on above: Order Comment: 'TROP ' Serial specimen #1, #2 or #3: 1 Performed By: #### L 503.6005, L500.4050, L100.0100, L300.3900, M100.7900, L300.4310, L501.4020, L501.2450 ####[facility] [address] [place], [address] CA,Total 8.7 mg/dL Normal 8.5-10.1 [facility] Comment on above: Order Comment: 'TROP ' Serial specimen #1, #2 or #3: 1 Performed By: #### L 503.6005, L500.4050, L100.0100, L300.3900, M100.7900, L300.4310, L501.4020, L501.2450 ####[facility] [address] [place], [address] Chloride [Moles/Vol] 104 mmol/L Normal 98-107 [facility] Comment on above: Order Comment: 'TROP ' Serial specimen #1, #2 or #3: 1 Performed By: #### L 503.6005, L500.4050, L100.0100, L300.3900, M100.7900, L300.4310, L501.4020, L501.2450 ####[facility] [address] [place], [address] CO2 [Moles/Vol] 24.0 mmol/L Normal 21.0-32.0 [facility] Comment on above: Order Comment: 'TROP ' Serial specimen #1, #2 or #3: 1 Performed By: #### L 503.6005, L500.4050, L100.0100, L300.3900, M100.7900, L300.4310, L501.4020, L501.2450 ####[facility] [address] [place], [address] Creatinine [Mass/Vol] 1.00 mg/dL Normal 0.70-1.30 [facility] Comment on above: Order Comment: 'TROP ' Serial specimen #1, #2 or #3: 1 Result Comment: The validity of the calculated GFR GFRAA in patients over70 years has not been determined. Clinical correlation isessential. Performed By: #### L 503.6005, L500.4050, L100.0100, L300.3900, M100.7900, L300.4310, L501.4020, L501.2450 ####[facility] [address] [place], [address] ECRCL 128.65 ml/min Normal [facility] Comment on above: Order Comment: 'TROP ' Serial specimen #1, #2 or #3: 1 Performed By: #### L 503.6005, L500.4050, L100.0100, L300.3900, M100.7900, L300.4310, L501.4020, L501.2450 ####[facility] [address] [place], [address] EST GFR - AA 104 mL/min Normal >60 [facility] Comment on above: Order Comment: 'TROP ' Serial specimen #1, #2 or #3: 1 Result Comment: Afri can Andorran GFR Calc Performed By: #### L 503.6005, L500.4050, L100.0100, L300.3900, M100.7900, L300.4310, L501.4020, L501.2450 ####[facility] [address] [place], [address] GAP 10 Normal 5-15 [facility] Comment on above: Order Comment: 'TROP ' Serial specimen #1, #2 or #3: 1 Performed By: #### L 503.6005, L500.4050, L100.0100, L300.3900, M100.7900, L300.4310, L501.4020, L501.2450 ####[facility] [address] [place], [address] GFR/1.73 sq M.predicted among non-blacks MDRD (S/P/Bld) [Vol rate/Area] 86 mL/min/{1.73_m2} Normal >60 [facility] Comment on above: Order Comment: 'TROP ' Serial specimen #1, #2 or #3: 1 Result Comment: Non- GFR Calc Performed By: #### L 503.6005, L500.4050, L100.0100, L300.3900, M100.7900, L300.4310, L501.4020, L501.2450 ####[facility] [address] [place], [address] Globulin (S) [Mass/Vol] 4.4 g/dL High 2.2-4.2 [facility] Comment on above: Order Comment: 'TROP ' Serial specimen #1, #2 or #3: 1 Performed By: #### L 503.6005, L500.4050, L100.0100, L300.3900, M100.7900, L300.4310, L501.4020, L501.2450 ####[facility] [address] [place], [address] Glucose [Mass/Vol] 105 mg/dL Normal 74-106 [facility] Comment on above: Order Comment: 'TROP ' Serial specimen #1, #2 or #3: 1 Result Comment: Fast ing Glucose result from 100 to 125 mg/dLsuggests IMPAIRED HOMEOSTASIS per A.D.A. criteria. Performed By: #### L 503.6005, L500.4050, L100.0100, L300.3900, M100.7900, L300.4310, L501.4020, L501.2450 ####[facility] [address] [place], [address] Potassium [Moles/Vol] 3.7 mmol/L Normal 3.5-5.1 [facility] Comment on above: Order Comment: 'TROP ' Serial specimen #1, #2 or #3: 1 Performed By: #### L 503.6005, L500.4050, L100.0100, L300.3900, M100.7900, L300.4310, L501.4020, L501.2450 ####[facility] [address] [place], [address] Sodium [Moles/Vol] 138 mmol/L Normal 136-145 [facility] Comment on above: Order Comment: 'TROP ' Serial specimen #1, #2 or #3: 1 Performed By: #### L 503.6005, L500.4050, L100.0100, L300.3900, M100.7900, L300.4310, L501.4020, L501.2450 ####[facility] [address] [place], [address] T PROT 7.8 g/dL Normal 6.4-8.2 [facility] Comment on above: Order Comment: 'TROP ' Serial specimen #1, #2 or #3: 1 Performed By: #### L 503.6005, L500.4050, L100.0100, L300.3900, M100.7900, L300.4310, L501.4020, L501.2450 ####[facility] [address] [place], [address] Urea nitrogen [Mass/Vol] 18 mg/dL Normal 7-18 [facility] Comment on above: Order Comment: 'TROP ' Serial specimen #1, #2 or #3: 1 Performed By: #### L 503.6005, L500.4050, L100.0100, L300.3900, M100.7900, L300.4310, L501.4020, L501.2450 ####[facility] [address] [place], [place], [address] Creatinine [Mass/Vol]Ordered By: Yana Salmeron on 05-03-2024 Serum or plasma creatinine measurement (mass/volume) 0.83 mg/dL 0.70-1.30 [facility] Discharge Instructionon 04-24 Discharge Instruction Normal [facility] EGD Reporton 05-03-2024 EGD Report Normal [facility] Echo Complete W/ Contraston 05-03-2024 Echo Complete W/ Contrast Normal [facility] Emergency Department Summary on 05-03-2024 Emergency Department Summary Normal [facility] Eosinophil percentageOrdered By: Yana Salmeron on 05-03-2024 Eosinophils/100 WBC (Bld) 6.0 % High 0-5 [facility] Eosinophil percentage 6.0 % High 0-5 [facility] Epithelial cells.squamous LM Ql (Urine sed)Ordered By: Sebastian Puri on 05-03-2024 Epithelial cells.squamous LM.HPF (Urine sed) [#/Area] 0 /[HPF] 0-5 [facility] Squamous epithelial cells detection in urine sediment by light microscopy 0-5 SEEN /hpf 0-5 [facility] Erythrocyte distribution wid th (RBC) [Ratio]Ordered By: Yana Salmeron on 05-03-2024 Erythrocyte distribution width ratio 14.0 % 11.6-14.6 [facility] Erythrocyte distribution width standard deviation 42.0 fl 35.1-43.9 [facility] Erythrocyte distribution wid th ratioOrdered By: Yana Salmeron on 05-03-2024 Erythrocyte distribution width (RBC) [Ratio] 14.0 % 11.6-14.6 [facility] Erythrocyte distribution wid th standard deviationOrdered By: Yana Salmeron on 05-03-2024 Erythrocyte distribution width (RBC) [Entitic vol] 42.0 fL 35.1-43.9 [facility] Erythrocyte distribution width (RBC) [Ratio] 42.0 fl 35.1-43.9 [facility] Estimated glomerular filtrat ion rate (GFR) AmericanOrdered By: Yana Salmeron on 05-03-2024 Estimated GFR (MDRD) Amer 128 mL/min >60 [facility] Comment on above: GFR Calc Estimated glomerular filtration rate (GFR) 128 mL/min >60 [facility] Estimation of creatinine poonam aranceOrdered By: Yana Salmeron on 05-03-2024 Estimated Creatinine Clearance Calc 155.38 ml/min [facility] Estimation of creatinine clearance 155.38 ml/min [facility] Glomerular filtration rate ( GFR) estimationOrdered By: Yana Salmeron on 05-03-2024 Estimated GFR (MDRD) Non-Af Amer 106 mL/min >60 [facility] Comment on above: Non- GFR Calc GFR/1.73 sq M.predicted among non-blacks MDRD (S/P/Bld) [Vol rate/Area] 106 mL/min/{1.73_m2} >60 [facility] Glomerular filtration rate (GFR) estimation 106 mL/min >60 [facility] Glucose Ql (U)Ordered By: Jamari Puri on 05-03-2024 Urine Glucose (UA) Normal mg/dl Normal [facility] Urine glucose detection Normal mg/dl Normal [facility] Glucose measurementOrdered B y: Yana White on 05-03-2024 Glucose [Mass/Vol] 103 mg/dL 74-106 [facility] Comment on above: Fasting Glucose resu lt from 100 to 125 mg/dL suggests IMPAIRED HOMEOSTASIS per A.D.A. criteria. Glucose measurement 103 mg/dL -106 [facility] H AND P Exam - Hospitaliston 05-03-2024 H&P Exam - Hospitalist Normal [facility] H Pylori (initial)on 025 H Pylori (initial) Normal [facility] Comment on above: Performed By: #### P H.PYLORI ####[facility] [address] [place], [address] HH, Hemoglobin AND Hematocri ton 05-03-2024 Hematocrit (Bld) [Volume fraction] 42.8 % Normal 40-54 [facility] Comment on above: Performed By: #### L 100.0600 ####[facility] [address] [place], [address] Hemoglobin (Bld) [Mass/Vol] 13.6 g/dL Normal 13.0-16.5 [facility] Comment on above: Performed By: #### L 100.0600 ####[facility] [address] [place], [address] Hematocrit Auto (Bld) [Volum e fraction]Ordered By: Luis James on 05-03-2024 Hematocrit (Bld) [Volume fraction] 42.8 % 40-54 [facility] Automated blood hematocrit (percentage) 42.8 % - [facility] Hemoglobin measurementOrdere d By: Luis James on 05-03-2024 Hemoglobin (Bld) [Mass/Vol] 13.6 g/dL 13.0-16.5 [facility] Hemoglobin measurement 13.6 g/dL 13.0-16.5 [facility] Immature granulocytes/100 WB C Auto (Bld)Ordered By: Yana Salmeron on 05-03-2024 Immature granulocytes/100 WBC (Bld) 0.300 % 0.0-0.9 [facility] Comment on above: IG% - Immature Granu locytes (promyelocytes, myelocytes and metamyelocytes) > 1% indicates that a LEFT SHIFT is Present. Automated immature granulocyte percentage 0.300 % 0.0-0.9 [facility] Ketones Test strip Ql (U)Ord ered By: Sebastian Puri on 05-03-2024 Ketones Ql (U) 5 mg/dl High Negative [facility] Urine ketones detection by test strip 5 mg/dl High Negative [facility] L501.4020on 05-03-2024 TROPONIN-I HS < 3 Low 3.0-78.0 [facility] Comment on above: Order Comment: Comme nts: SPECIMEN #3'TROP' Serial specimen #1, #2 or #3: 3 Result Comment: Plea se Note: New Test Units and Gender Specific Reference Ranges. For more information see Policy Stat Procedure [place] High Sensitivity Troponin (TNIH) and attachments. Performed By: #### L [id number] ####[facility] [address] [place], [phone]) TROPONIN-I HS 4 pg/mL Normal 3.0-78.0 [facility] Comment on above: Order Comment: 'TROP ' Serial specimen #1, #2 or #3: 2 Result Comment: Plea se Note: New Test Units and Gender Specific Reference Ranges. For more information see Policy Stat Procedure [place]ona High Sensitivity Troponin (TNIH) and attachments. Performed By: #### L 501.4020 ####[facility] [address] [place], [place], [phone] TROPONIN-I HS 3 pg/mL Normal 3.0-78.0 [facility] Comment on above: Order Comment: 'TROP ' Serial specimen #1, #2 or #3: 1 Result Comment: Umer velásquez Note: New Test Units and Gender Specific Reference Ranges. For more information see Policy Stat Procedure [place]ona High Sensitivity Troponin (TNIH) and attachments. Performed By: #### L 503.6005, L500.4050, L100.0100, L300.3900, M100.7900, L300.4310, L501.4020, L501.2450 ####[facility] [address] [place], [address] Laboratory - Chemistry and C hemistry - challengeOrdered By: Yana Salmeron on 05-03-2024 AST [Catalytic activity/Vol] 15 U/L 15-37 [facility] Lactic Acidon 05-03-2024 Lactate [Moles/Vol] 1.0 mmol/L Normal 0.4-1.9 [facility] Comment on above: Order Comment: Y Performed By: #### L 503.6005, L500.4050, L100.0100, L300.3900, M100.7900, L300.4310, L501.4020, L501.2450 ####[facility] [address] [place], [place], [id number] Leukocyte esterase Test stri p Ql (U)Ordered By: Sebastian Puri on 05-03-2024 Urine leukocyte esterase detection by dipstick 25 /ul High Negative [facility] Lipaseon 05-03-2024 Lipase [Catalytic activity/Vol] 30 U/L Low 73-393 [facility] Comment on above: Order Comment: 'TROP ' Serial specimen #1, #2 or #3: 1 Performed By: #### L 503.6005, L500.4050, L100.0100, L300.3900, M100.7900, L300.4310, L501.4020, L501.2450 ####[facility] [address] [place], [place], [phone] Lymphocytes Auto (Unsp spec) [#/Vol]Ordered By: Yana Salmeron on 05-03-2024 Lymphocytes (Bld) [#/Vol] 2.81 10*3/uL 0.83-4.51 [facility] Absolute lymphocyte count 2.81 X10^3/uL 0.83-4.51 [facility] Lymphocytes/100 WBC Auto (Un sp spec)Ordered By: Yana Salmeron on 05-03-2024 Lymphocytes/100 WBC (Bld) 48.0 % High - [facility] Automated lymphocyte count as percentage of total leukocytes 48.0 % High -41 [facility] MCV (RBC) [Entitic vol]Order ed By: Yana Salmeron on 05-03-2024 MCV (mean corpuscular volume) determination 82.2 fL 80-94 [facility] MCV (mean corpuscular volume ) determinationOrdered By: Yana Jaron on 05-03-2024 MCV (RBC) [Entitic vol] 82.2 fL 80-94 [facility] MR/CON.PCM.GIon 05-03-2024 MR/CON.PCM.GI Normal [facility] MR/POSTOP.ANEon 05-03-2024 MR/POSTOP.ANE Normal [facility] MR/LADEDLFH0lf 05-03-2024 MR/POSTOPAN2 Normal [facility] Magnesiumon 05-03-2024 Magnesium [Mass/Vol] 2.2 mg/dL Normal 1.6-2.6 [facility] Comment on above: Order Comment: Comme nts: may add to ED labs Performed By: #### L 501.5200 ####[facility] [address] [place], [address] Mean corpuscular hemoglobin (MCH) determinationOrdered By: Yana Jaron on 05-03-2024 MCH (RBC) [Entitic mass] 26.3 pg Low 27.0-32.0 [facility] Mean corpuscular hemoglobin (MCH) determination 26.3 pg Low 27.0-32.0 [facility] Mean corpuscular hemoglobin concentration (MCHC) determinationOrdered By: Yana Salmeron on 05-03-2024 MCHC (RBC) [Mass/Vol] 32.0 g/dL 32-36 [place] Mean corpuscular hemoglobin concentration (MCHC) determination 32.0 g/dL 32-36 [facility] Mean platelet volume determi nationOrdered By: Yana Salmeron on 05-03-2024 Platelet mean volume (Bld) [Entitic vol] 8.9 fL 6.2-12.0 [facility] Mean platelet volume determination 8.9 fl 6.2-12.0 [facility] Microscopic analysis of urin e for red blood cells (RBC)Ordered By: Sebastian Puri on 05-03-2024 Urine RBC 0 SEEN /hpf 0-5 [facility] Microscopic analysis of urine for red blood cells (RBC) 0 SEEN /hpf 0-5 [facility] Monocyte percentageOrdered B y: White on 05-03-2024 Monocytes/100 WBC (Bld) 6.7 % 0-10 [facility] Monocyte percentage 6.7 % 0-10 [facility] Mucus LM Ql (Urine sed)Order ed By: Sebastian Puri on 05-03-2024 Mucus Ql (Urine sed) 2+ /hpf [facility] Mucus detection in urine sediment by light microscopy 2+ /hpf [facility] Neutrophil percentageOrdered By: Jaron on 05-03-2024 Neutrophils/100 WBC (Bld) 38.5 % Low 47-70 [facility] Neutrophil percentage 38.5 % Low 47-70 [place] Nitrite Test strip Ql (U)Ord ered By: Sebastian Puri on 05-03-2024 Nitrite Ql (U) Negative Negative [facility] Urine nitrite test by dipstick Negative Negative [facility] No Panel InformationOrdered By: Yana Jaron on 05-03-2024 15 U/L 15-37 [facility] Nucleated red blood cell per centageOrdered By: Jaron on 05-03-2024 Nucleated RBC/100 WBC (Bld) [Ratio] 0 % 0-5 [facility] Nucleated red blood cell percentage 0 % 0-5 [facility] Partial Thromboplast Timeon 05-03-2024 aPTT Coag (Bld) [Time] 27.0 s Normal 24.1-36.2 [facility] Comment on above: Performed By: #### L 503.6005, L500.4050, L100.0100, L300.3900, M100.7900, L300.4310, L501.4020, L501.2450 ####[facility] [address] [place], [address] Platelet countOrdered By: Mary sherry Jaron on 05-03-2024 Platelets (Bld) [#/Vol] 293 10*3/uL 150-450 [facility] Platelet count 293 K/mm3 150-450 [facility] Potassium measurementOrdered By: Yana Salmeron on 05-03-2024 Potassium [Moles/Vol] 3.9 mmol/L 3.5-5.1 [place] Potassium measurement 3.9 mmol/L 3.5-5.1 [place] Protein Test strip Ql (U)Ord ered By: Sebastian Puri on 05-03-2024 Protein Ql (U) 30 mg/dl High Negative [facility] Urine protein assay by test strip, semi-quantitative 30 mg/dl High Negative [facility] Prothrombin Time w/INRon INR Coag (PPP) [Relative time] 0.9 {INR} Normal [facility] Comment on above: Performed By: #### L 503.6005, L500.4050, L100.0100, L300.3900, M100.7900, L300.4310, L501.4020, L501.2450 ####[facility] [address] [place], [address] PT Coag (PPP) [Time] 12.6 s Normal 11.7-14.9 [facility] Comment on above: Performed By: #### L 503.6005, L500.4050, L100.0100, L300.3900, M100.7900, L300.4310, L501.4020, L501.2450 ####[facility] [address] [place], [address] RBC Auto (Bld) [#/Vol]Ordere d By: Yana Salmeron on 05-03-2024 RBC (Bld) [#/Vol] 4.71 10*6/uL 4.6-6.2 [facility] Automated blood erythrocyte count 4.71 M/mm3 4.6-6.2 [facility] Serum anion gap measurementO rdered By: Yana Salmeron on 05-03-2024 Anion gap [Moles/Vol] 8 mmol/L 5-15 [place] Serum anion gap measurement 8 5-15 [facility] Serum globulin measurementOr dered By: Yana Salmeron on 05-03-2024 Globulin (S) [Mass/Vol] 3.6 g/dL 2.2-4.2 [facility] Serum globulin measurement 3.6 g/dL 2.2-4.2 [facility] Serum or plasma alanine vanegas otransferase (ALT) measurementOrdered By: Yana Salmeron on 05-03-2024 ALT [Catalytic activity/Vol] 37 U/L 16-61 [facility] Serum or plasma albumin paramjit urement (mass/volume)Ordered By: Yana Salmeron 05-03-2024 Albumin [Mass/Vol] 3.1 g/dL Low 3.2-5.0 [facility] Serum or plasma alkaline thomas sphatase measurementOrdered By: Yana Salmeron 05-03-2024 ALP [Catalytic activity/Vol] 98 U/L 45-117 [facility] Serum or plasma calcium paramjit urement (mass/volume)Ordered By: Yana Salmeron 05-03-2024 Calcium [Mass/Vol] 7.9 mg/dL Low 8.5-10.1 [facility] Serum or plasma creatinine m easurement (mass/volume)Ordered By: Yana Salmeron on 05-03-2024 Creatinine [Mass/Vol] 0.83 mg/dL 0.70-1.30 [place] Comment on above: The validity of the calculated GFR & GFRAA in patients over 70 years has not been determined. Clinical correlation is essential. Serum or plasma urea nitroge n measurement (mass/volume)Ordered By: Yana Salmeron on 05-03-2024 Urea nitrogen [Mass/Vol] 21 mg/dL High 7-18 [facility] Sodium levelOrdered By: Raven Salmeron on 05-03-2024 Sodium [Moles/Vol] 137 mmol/L 136-145 [facility] Sodium level 137 mmol/L 136-145 [facility] Specific gravity (U) [Rel de nsity]Ordered By: Sebastian Puri on 05-03-2024 Urine specific gravity measurement 1.020 1.002-1.030 [facility] Squamous epithelial cells de tection in urine sediment by light microscopyOrdered By: Sebastian Puri on 05-03-2024 Epithelial cells.squamous LM Ql (Urine sed) 0-5 SEEN /hpf 0-5 [facility] Stool Occult Blood iFOBon STOB Normal [facility] Comment on above: Performed By: #### L 503.6005, L500.4050, L100.0100, L300.3900, M100.7900, L300.4310, L501.4020, L501.2450 ####[facility] [address] [place], [place], [id number] Surgery Specimen Level Geni 05-03-2024 Surgery Specimen Level IV Normal [facility] Comment on above: Performed By: #### P SUIV ####[facility] [address] [place], [place], [phone] Total proteinOrdered By: Melecio Salmeron on 05-03-2024 Protein [Mass/Vol] 6.7 g/dL 6.4-8.2 [facility] Total protein 6.7 g/dL 6.4-8.2 [facility] Troponin IOrdered By: Yana Salmeron on 05-03-2024 Troponin I < 3 pg/mL Low 3.0-78.0 [facility] Troponin I High Sensitivity < 3 pg/mL Low 3.0-78.0 [facility] Comment on above: Please Note: New [place] t Units and Gender Specific Reference Ranges. For more information see Policy Stat Procedure [place] High Sensitivity Troponin (TNIH) and attachments. Troponin I < 3 pg/mL Low 3.0-78.0 [facility] Urea nitrogen [Mass/Vol]Orde red By: Yana Salmeron on 05-03-2024 Serum or plasma urea nitrogen measurement (mass/volume) 21 mg/dL High 7-18 [facility] Urinalysis, Completeon 05-03 BACTERIA 1+ /hpf Normal None Seen [facility] Comment on above: Order Comment: CLEAN CATCH Performed By: #### L 400.0001 ####[facility] [address] [place], [address] BILIRUBIN URINE 1 mg/dL Abnormal Negative [facility] Comment on above: Order Comment: CLEAN CATCH Result Comment: YCOL OR OF URINE MAY AFFECT DIPSTICK RESULTS. Performed By: #### L 400.0001 ####[facility] [address] [place], [address] EPI,SQUAMOUS 0-5 SEEN Normal 0-5 [facility] Comment on above: Order Comment: CLEAN CATCH Performed By: #### L 400.0001 ####[facility] [address] [place], [address] Mucus Ql (Urine sed) 2+ /hpf Normal [facility] Comment on above: Order Comment: CLEAN CATCH Performed By: #### L 400.0001 ####[facility] [address] [place], [address] RBC 0 SEEN Normal 0-5 [facility] Comment on above: Order Comment: CLEAN CATCH Performed By: #### L 400.0001 ####[facility] [address] [place], [address] WBC 10-25 SEEN Normal 0-5 [facility] Comment on above: Order Comment: CLEAN CATCH Performed By: #### L 400.0001 ####[facility] [address] [place], [address] Clarity (U) Clear Normal Clear [facility] Comment on above: Order Comment: CLEAN CATCH Performed By: #### L 400.0001 ####[facility] [address] [place], [address] Color (U) Yellow Normal Yellow [facility] Comment on above: Order Comment: CLEAN CATCH Performed By: #### L 400.0001 ####[facility] [address] [place], [address] GLUCOSE, UR Normal Normal Normal [facility] Comment on above: Order Comment: CLEAN CATCH Performed By: #### L 400.0001 ####[facility] [address] [place], [address] KETONE UR 5 mg/dl Abnormal Negative [facility] Comment on above: Order Comment: CLEAN CATCH Performed By: #### L 400.0001 ####[facility] [address] [place] [address] LEUK ESTERASE 25 /ul Abnormal Negative [facility] Comment on above: Order Comment: CLEAN CATCH Performed By: #### L 400.0001 ####[facility] [address] [place] [address] Nitrite Ql (U) Negative Normal Negative [facility] Comment on above: Order Comment: CLEAN CATCH Performed By: #### L 400.0001 ####[facility] [address] [place] [address] OCCULT BLOOD-UR 10 /ul Abnormal Negative [facility] Comment on above: Order Comment: CLEAN CATCH Performed By: #### L 400.0001 ####[facility] [address] [place] [address] pH UR 5.0 Normal 5.0 - 8.0 [facility] Comment on above: Order Comment: CLEAN CATCH Performed By: #### L 400.0001 ####[facility] [address] [place] [address] PROT DIPSTX 30 mg/dl Abnormal Negative [facility] Comment on above: Order Comment: CLEAN CATCH Performed By: #### L 400.0001 ####[facility] [address] [place] [address] SP.GR. DIPSTX 1.020 Normal 1.002-1.030 [facility] Comment on above: Order Comment: CLEAN CATCH Performed By: #### L 400.0001 ####[facility] [address] [place], [place], [address] UROBILI 1 mg/dl Abnormal Normal [facility] Comment on above: Order Comment: CLEAN CATCH Performed By: #### L 400.0001 ####[facility] [address] [place], [place], [id number] Urine blood detectionOrdered By: Sebastian Puri on 05-03-2024 Urine Occult Blood 10 /ul High Negative [facility] Urine blood detection 10 /ul High Negative [place] Urine clarityOrdered By: Cory Puri on 05-03-2024 Clarity (U) Clear Clear [facility] Urine color determinationOrd ered By: Sebastian Puri on 05-03-2024 Color (U) Yellow Yellow [facility] Urine cultureOrdered By: Cory Puri on 05-03-2024 Bacteria identified Cx Nom (U) Positive Abnormal [facility] Urine glucose detectionOrder ed By: Sebastian Puri on 05-03-2024 Glucose Ql (U) Normal mg/dl Normal [facility] Urine leukocyte esterase det ection by dipstickOrdered By: Sebastian Puri on 05-03-2024 Leukocyte esterase Test strip Ql (U) 25 /ul High Negative [facility] Urine pHOrdered By: Sebastian Florez on 05-03-2024 pH (U) 5.0 [pH] 5.0 - 8.0 [facility] Urine sediment bacteria coun t by microscopy (number/high power field)Ordered By: Sebastian Puri on 05-03-2024 Bacteria LM.HPF (Urine sed) [#/Area] 1 /[HPF] None Seen [facility] Urine specific gravity measu rementOrdered By: Sebastian Puri on 05-03-2024 Specific gravity (U) [Rel density] 1.020 1.002-1.030 [facility] Urine total bilirubin detect ion by test stripOrdered By: Sebastian Puri on 05-03-2024 Urine total bilirubin detection by test strip 1 mg/dL High Normal [facility] Urine urobilinogen measureme ntOrdered By: Sebastian Puri on 05-03-2024 Urobilinogen Ql (U) 1 mg/dl High Normal [facility] Urobilinogen Ql (U)Ordered B y: Sebastian Puri on 05-03-2024 Urobilinogen (U) [Mass/Vol] 1 mg/dL High Normal [facility] White blood cell (WBC) count Ordered By: Yana Salmeron on 05-03-2024 WBC (Bld) [#/Vol] 5.9 10*3/uL 4.4-11.0 [facility] White blood cell (WBC) count 5.9 K/mm3 4.4-11.0 [facility] White blood cell countOrdere d By: Sebastian Puri on 05-03-2024 Urine WBC 10-25 SEEN /hpf 0-5 [facility] White blood cell count 10-25 SEEN /hpf 0-5 [facility] White blood cell count 10-25 SEEN /hpf 0-5 [facility] pH (U)Ordered By: Sebastian Gonzalez on 05-03-2024 Urine pH 5.0 5.0 - 8.0 [facility] .Auto Diffon 05-02-2024 Basophil, Absolute 0.1 10 3/mcL Normal 0.0-0.2 [facility] Comment on above: Performed By: #### A ILA, GFR, TROPHS, BMP, CBC, MDW, ADIFF ####[place] [address] [place], [place] [address] Basophils/100 WBC (Bld) 0.8 % Normal 0.0-2.5 [facility] Comment on above: Performed By: #### A ILA, GFR, TROPHS, BMP, CBC, MDW, ADIFF ####[place] [address] [place], [place] [address] Eosinophil, Absolute 0.4 10 3/mcL Normal 0.0-0.7 [facility] Comment on above: Performed By: #### A ILA, GFR, TROPHS, BMP, CBC, MDW, ADIFF ####[facility] [place], [place] [address] Eosinophils/100 WBC (Bld) 4.6 % Normal 0.0-7.0 [facility] Comment on above: Performed By: #### A ILA, GFR, TROPHS, BMP, CBC, MDW, ADIFF ####[facility] [place], [place] [address] Lymphocyte, Absolute 2.2 10 3/mcL Normal 0.9-4.3 [facility] Comment on above: Performed By: #### A ILA, GFR, TROPHS, BMP, CBC, MDW, ADIFF ####[address] [address] Lymphocytes/100 WBC (Bld) 28.9 % Normal 20.0-40.0 [facility] Comment on above: Performed By: #### A ILA, GFR, TROPHS, BMP, CBC, MDW, ADIFF ####[facility] [place] [address] Monocyte, Absolute 0.5 10 3/mcL Normal 0.1-1.4 [facility] Comment on above: Performed By: #### A ILA, GFR, TROPHS, BMP, CBC, MDW, ADIFF ####[facility] [place] [address] Monocytes/100 WBC (Bld) 6.7 % Normal 2.0-13.0 [facility] Comment on above: Performed By: #### A ILA, GFR, TROPHS, BMP, CBC, MDW, ADIFF ####[facility] [place] [address] Neutrophils/100 WBC (Bld) 59.0 % Normal 50.0-75.0 [facility] Comment on above: Performed By: #### A ILA, GFR, TROPHS, BMP, CBC, MDW, ADIFF ####[address] [place], [place] [address] .GFRon 05-02-2024 Estimated Glomerular Filtration Rate 101 ml/min/1.73sqm Normal [facility] Comment on above: Result Comment: Stages of Chronic Kidney Disease (CKD) Stage Description eGFR(ml/min/1.73 sq.m.) CKD 1 Normal kidney function or >=90 normal kindney function with possible kidney damage (ex. Proteinuria) CKD 2 Kidney damage with mild loss 60-89 of kidney function CKD 3a Mild to moderate loss of kidney 45-59 function CKD 3b Moderate to severe loss of 30-44 of kindey function CKD 4 Severe loss of kidney function 15-29 CKD 5 Kidney failure <15 Note: (go live 2024) the eGFR calculation was updated to the 2020 CKD-EPI creatinine equation without a race factor to calculate the eGFR results. Performed By: #### A ILA, GFR, TROPHS, BMP, CBC, MDW, ADIFF ####[address] [place], [place] [address] .MDWon 05-02-2024 Monocyte Distribution Width 19.88 Normal 0.00-20.00 [facility] Comment on above: Result Comment: For ED adult patients suspected of sepsis, MDW<=20.0 does not rule out sepsis or risk of sepsis Performed By: #### A ILA, GFR, TROPHS, BMP, CBC, MDW, ADIFF ####[address] [place], [place] [address] .NEUABSon 05-02-2024 Neutrophil, Absolute 4.5 10 3/mcL Normal 2.3-8.1 [facility] Comment on above: Performed By: #### A ILA, GFR, TROPHS, BMP, CBC, MDW, ADIFF ####[address] [place], [place] [address] 12 Lead EKGon 05-02-2024 12 Lead EKG Normal [facility] Abdomen/Pelvis W IV Cont ONL Yon 05-02-2024 Abdomen/Pelvis W IV Cont ONLY Normal [facility] Activated partial thrombopla stin time (aPTT) in platelet poor plasma by coagulation aOrdered By: Sebastian Puri on 05-02-2024 aPTT Coag (PPP) [Time] 27.0 s 24.1-36.2 [facility] BUN/Creatinine Ratio 20 ratio Normal 7-27 [facility] Comment on above: Performed By: #### A ILA, GFR, TROPHS, BMP, CBC, MDW, ADIFF ####[place] [address] [place], [place] [address] Calcium [Mass/Vol] 8.8 mg/dL Normal 8.4-10.2 [facility] Comment on above: Performed By: #### A ILA, GFR, TROPHS, BMP, CBC, MDW, ADIFF ####[place] [address] [place], [place] [address] Chloride [Moles/Vol] 101 mmol/L Normal 98-107 [facility] Comment on above: Performed By: #### A ILA, GFR, TROPHS, BMP, CBC, MDW, ADIFF ####[address] [address] CO2 [Moles/Vol] 28 mmol/L Normal 22-29 [facility] Comment on above: Performed By: #### A ILA, GFR, TROPHS, BMP, CBC, MDW, ADIFF ####[place] [address] [place], [place] [address] Creatinine [Mass/Vol] 0.94 mg/dL Normal 0.70-1.30 [facility] Comment on above: Result Comment: Test ing performed on Siemens Dimension EXL analyzer using a modified kinetic Araceli technique. Performed By: #### A ILA, GFR, TROPHS, BMP, CBC, MDW, ADIFF ####[place] [address] [place], [place] [address] Electrolyte Balance 8.0 mEq/L Normal 4.0-15.0 [facility] Comment on above: Performed By: #### A ILA, GFR, TROPHS, BMP, CBC, MDW, ADIFF ####[place] [address] [place], [place] [address] Glucose [Mass/Vol] 92 mg/dL Normal 70-105 [facility] Comment on above: Performed By: #### A ILA, GFR, TROPHS, BMP, CBC, W, ADIFF ####[address] [place], [place] [address] Potassium [Moles/Vol] 4.0 mmol/L Normal 3.5-5.1 [facility] Comment on above: Performed By: #### A ILA, GFR, TROPHS, BMP, CBC, MDW, ADIFF ####[address] [place], [place] [address] Sodium [Moles/Vol] 137 mmol/L Normal 136-145 [facility] Comment on above: Performed By: #### A ILA, GFR, TROPHS, BMP, CBC, MDW, ADIFF ####[address] [place], [place] [address] Urea nitrogen [Mass/Vol] 19 mg/dL High 7-18 [facility] Comment on above: Performed By: #### A ILA, GFR, TROPHS, BMP, CBC, W, ADIFF ####[address] [place], [place] [address] CBCon 05-02-2024 Erythrocyte distribution width (RBC) [Ratio] 14.6 % Normal 11.5-15.5 [facility] Comment on above: Performed By: #### A ILA, GFR, TROPHS, BMP, CBC, LIA, ADIFF ####[address] [place], [place] [address] Hematocrit (Bld) [Volume fraction] 42.5 % Normal 40.0-52.0 [facility] Comment on above: Performed By: #### A ILA, GFR, TROPHS, BMP, CBC, LIA, ADIFF ####[address] [place], [place] [address] Hgb 14.4 G/dL Normal 13.0-17.5 [facility] Comment on above: Performed By: #### A ILA, GFR, TROPHS, BMP, CBC, MDW, ADIFF ####[address] [place], [place] [address] MCH (RBC) [Entitic mass] 27.5 pg Normal 27.0-33.0 [facility] Comment on above: Performed By: #### A ILA, GFR, TROPHS, BMP, CBC, MDW, ADIFF ####[address] [place], [place] [address] MCHC 33.9 G/dL Normal 32.0-36.0 [facility] Comment on above: Performed By: #### A ILA, GFR, TROPHS, BMP, CBC, MDW, ADIFF ####[address] [place], [place] [address] MCV (RBC) [Entitic vol] 81.0 fL Normal 81.0-100.0 [facility] Comment on above: Performed By: #### A ILA, GFR, TROPHS, BMP, CBC, MDW, ADIFF ####[place] [address] [place], [place] [address] Platelet 321 10 3/mcL Normal 150-450 [facility] Comment on above: Performed By: #### A ILA, GFR, TROPHS, BMP, CBC, LIA, ADIFF ####[address] [place], [place] [address] Platelet mean volume (Bld) [Entitic vol] 7.1 fL Normal 6.4-10.5 [facility] [facility] Comment on above: Performed By: #### A ILA, GFR, TROPHS, BMP, CBC, MDW, ADIFF ####[facility] [place], [place] [address] RBC 5.24 10 6/mcL Normal 4.50-6.00 [facility] Comment on above: Performed By: #### A ILA, GFR, TROPHS, BMP, CBC, MDW, ADIFF ####[address] [place], [place] [address] WBC 7.6 10 3/mcL Normal 4.5-10.8 [facility] Comment on above: Performed By: #### A ILA, GFR, TROPHS, BMP, CBC, MDW, ADIFF ####[address] [place], [place] [address] International normalized rat io (INR) calculationOrdered By: Sebastian Puri on 05-02-2024 INR Coag (Bld) [Relative time] 0.9 {INR} [facility] International normalized ratio (INR) calculation 0.9 [facility] LABORATORYOrdered By: SYSTEM SYSTEM on 05-02-2024 Troponin I.cardiac DL <= 0.01 ng/mL [Mass/Vol] 5 ng/L Normal 0 - 76 ng/L AO ADM SS Comment on above: Interpretive Data: H igh Sensitive Troponin I Reference Ranges: Female: 0-51 ng/L Male: 0-76 ng/L Testing performed on [email or web address] using a homogeneous sandwich chemiluminescent immunoassay based on [employer] technology. Basophils (Bld) [#/Vol] 0.1 103/mcL Normal 0.0 - 0.2 10^3/mcL AO Workflow SS Basophils/100 WBC (Bld) 0.8 % Normal 0.0 - 2.5 % AO Workflow SS Calcium [Mass/Vol] 8.8 mg/dL Normal 8.4 - 10. 2 mg/dL AO ADM SS Chloride [Moles/Vol] 101 mmol/L Normal 98 - 10 7 mmol/L AO ADM SS CO2 [Moles/Vol] 28 mmol/L Normal 22 - 29 mmol/L AO ADM SS Creatinine [Mass/Vol] 0.94 mg/dL Normal 0.70 - 1.30 mg/dL AO ADM SS Comment on above: Interpretive Data: T esting performed on [employer] Dimension EXL analyzer using a modified kinetic Araceli technique. Electrolyte Balance 8.0 mEq/L Normal 4.0 - 15 .0 mEq/L AO ADM SS Eosinophil, Absolute 0.4 103/mcL Normal 0.0 - 0 .7 10^3/mcL AO Workflow SS Eosinophils/100 WBC (Bld) 4.6 % Normal 0.0 - 7.0 % AO Workflow SS Erythrocyte distribution width (RBC) [Ratio] 14.6 % Normal 11.5 - 15.5 % AO Workflow SS Estimated Glomerular Filtration Rate 101 ml/min/1.73sqm Invalid Interpretation Code AO Chemistry S Comment on above: Interpretive Data: Stages of Chronic Kidney Disease (CKD) Stage Description eGFR(ml/min/1.73 sq.m.) CKD 1 Normal kidney function or >=90 normal kindney function with possible kidney damage (ex. Proteinuria) CKD 2 Kidney damage with mild loss 60-89 of kidney function CKD 3a Mild to moderate loss of kidney 45-59 function CKD 3b Moderate to severe loss of 30-44 of kindey function CKD 4 Severe loss of kidney function 15-29 CKD 5 Kidney failure <15 Note: (go live 2024) the eGFR calculation was updated to the 2020 CKD-EPI creatinine equation without a race factor to calculate the eGFR results. Glucose [Mass/Vol] 92 mg/dL Normal 70 - 105 mg/dL AO ADM SS Hematocrit (Bld) [Volume fraction] 42.5 % Normal 40.0 - 52.0 % AO Workflow SS Hemoglobin (Bld) [Mass/Vol] 14.4 G/dL Normal 13.0 - 17.5 G/dL AO Workflow SS Lymphocytes (Bld) [#/Vol] 2.2 103/mcL Normal 0.9 - 4.3 10^3/mcL AO Workflow SS Lymphocytes/100 WBC (Bld) 28.9 % Normal 20.0 - 40.0 % AO Workflow SS MCH (RBC) [Entitic mass] 27.5 pg Normal 27.0 - 33.0 pg AO Workflow SS MCHC 33.9 G/dL Normal 32.0 - 36.0 G/dL AO Workflow SS MCV (RBC) [Entitic vol] 81.0 fL Normal 81.0 - 100.0 fL AO Workflow SS Monocyte distribution width Auto (Bld) [Entitic vol] 19.88 1 Normal 0.00 - 20.00 AO Workflow SS Comment on above: Result Comment: For ED adult patients suspected of sepsis, MDW<=20.0 does not rule out sepsis or risk of sepsis Monocytes (Bld) [#/Vol] 0.5 103/mcL Normal 0.1 - 1.4 10^3/mcL AO Workflow SS Monocytes/100 WBC (Bld) 6.7 % Normal 2.0 - 13.0 % AO Workflow SS Neutrophils (Bld) [#/Vol] 4.5 103/mcL Normal 2.3 - 8.1 10^3/mcL AO Workflow SS Neutrophils/100 WBC (Bld) 59.0 % Normal 50.0 - 75.0 % AO Workflow SS Platelet mean volume (Bld) [Entitic vol] 7.1 fL Normal 6.4 - 10.5 fL AO Workflow SS Platelets (Bld) [#/Vol] 321 103/mcL Normal 150 - 450 10^3/mcL AO Workflow SS Potassium [Moles/Vol] 4.0 mmol/L Normal 3.5 - 5.1 mmol/L AO ADM SS RBC (Bld) [#/Vol] 5.24 106/mcL Normal 4.50 - 6.0 0 10^6/mcL AO Workflow SS Sodium [Moles/Vol] 137 mmol/L Normal 136 - 145 mmol/L AO ADM SS Troponin I.cardiac DL <= 0.01 ng/mL [Mass/Vol] ng/L Normal 0 - 76 ng/L AO ADM SS Comment on above: Interpretive Data: H igh Sensitive Troponin I Reference Ranges: Female: 0-51 ng/L Male: 0-76 ng/L Testing performed on [email or web address] using a homogeneous sandwich chemiluminescent immunoassay based on [employer] technology. Urea nitrogen [Mass/Vol] 19 mg/dL High 7 - 18 mg/dL AO ADM SS Urea nitrogen/Creatinine [Mass ratio] 20 ratio Normal 7 - 27 ratio AO ADM SS WBC (Bld) [#/Vol] 7.6 103/mcL Normal 4.5 - 10.8 10^3/mcL AO Workflow SS Lactic acid measurementOrder ed By: Sebastian Puri on 05-02-2024 Lactate [Moles/Vol] 1.0 mmol/L 0.4-2.0 [facility] Lactic acid measurement 1.0 mmol/L 0.4-2.0 [facility] Lipase measurementOrdered By : Sebastian Puri on 05-02-2024 Lipase [Catalytic activity/Vol] 30 U/L Low 73-393 [facility] Lipase measurement 30 U/L Low 73-393 [facility] hemoglobin IA Ql (S tl)Ordered By: Sebastian Puri on 05-02-2024 Stool Occult Blood (VIOLETTE) Positive Abnormal [facility] Stool Occult Blood (VIOLETTE) Positive Abnormal [facility] Stool gastrointestinal hemoglobin detection by immunologic method Positive Abnormal [facility] Magnesium measurementOrdered By: Yana Salmeron on 05-02-2024 Magnesium [Mass/Vol] 2.2 mg/dL 1.6-2.6 [facility] Magnesium measurement 2.2 mg/dL 1.6-2.6 [place] Prothrombin timeOrdered By: Sebastian Puri on 05-02-2024 PT Coag (PPP) [Time] 12.6 s 11.7-14.9 [facility] Prothrombin time 12.6 SECONDS 11.7-14.9 [facility] Stool gastrointestinal hemog lobin detection by immunologic methodOrdered By: Sebastian Puri on 05-02-2024 Lower GI hemoglobin IA Ql (Stl) Positive Abnormal [facility] TROPHSon 05-02-2024 High Sensitivity Troponin I 5 ng/L Normal 0-76 [facility] Comment on above: Result Comment: High Sensitive Troponin I Reference Ranges: Female: 0-51 ng/L Male: 0-76 ng/L Testing performed on [employer] [place] [employer] using a homogeneous sandwich chemiluminescent immunoassay based on [employer] technology. Performed By: #### [facility] ####[address] [place], [place] [address] High Sensitivity Troponin I <4 Normal 0-76 [facility] Comment on above: Result Comment: High Sensitive Troponin I Reference Ranges: Female: 0-51 ng/L Male: 0-76 ng/L Testing performed on [employer] EXL using a homogeneous sandwich chemiluminescent immunoassay based on [employer] technology. Performed By: #### A ILA, GFR, TROPHS, BMP, CBC, MDW, ADIFF ####[address] [place], [place] [address] Urine cultureOrdered By: Cory Puri on 05-02-2024 Bacteria identified Cx Nom (U) Positive Abnormal [facility] Urine culture Positive Abnormal [facility] XR CHEST 1 VIEWon 05-02-2024 XR CHEST 1 VIEW ORIGINAL EXAMINATION: ONE XRAY VIEW OF THE CHEST 05/02/2024 7:53 pm COMPARISON: Radiograph of the chest August 20, 2023 HISTORY: ORDERING SYSTEM PROVIDED HISTORY: Reason for Exam: chest pain FINDINGS: Cardiomediastinal silhouette is unchanged in size. Low lung volumes. Costophrenic angles are sharp. No radiographic pneumothorax. No definite focal consolidation. Osseous structures grossly unchanged. IMPRESSION: Low lung volumes. Interpreted by: Mars Sevilla Preliminary Report By: Mars Sevilla Electronically signed By Mars Sevilla Dictated Date: 05/02/2024 7:57:37 PM Prelim Date: 05/02/2024 7:58:02 PM Sign Date: 05/02/2024 7:58:02 PM Ordering Provider: VICTOR M WALTON [facility] aPTT Coag (PPP) [Time]Ordere d By: Sebastian Puri on 05-02-2024 aPTT Coag (Bld) [Time] 27.0 s 24.1-36.2 [facility] Activated partial thromboplastin time (aPTT) in platelet poor plasma by coagulation a 27.0 Seconds 24.1-36.2 [facility] ALP [Catalytic activity/Vol] Ordered By: Sidney Singh on 04-28-2024 Serum or plasma alkaline phosphatase measurement 131 U/L High 45-117 [facility] ALT [Catalytic activity/Vol] Ordered By: Sidney Singh on 04-28-2024 Serum or plasma alanine aminotransferase (ALT) measurement 75 U/L High 16-61 [facility] Abdomen/Pelvis W IV Cont ONL Yon 04-28-2024 Abdomen/Pelvis W IV Cont ONLY Normal [facility] Absolute lymphocyte countOrd ered By: Sidney Singh on 04-28-2024 Lymphocytes Auto (Unsp spec) [#/Vol] 1.51 10*3/uL 0.83-4.51 [facility] Absolute neutrophil countOrd ered By: Sidney Singh on 04-28-2024 Neutrophils (Bld) [#/Vol] 7.8 10*3/uL High 2.0-7.7 [facility] Absolute neutrophil count 7.8 X10^3/uL High 2.0-7.7 [facility] Albumin [Mass/Vol]Ordered By : Sidney Singh on 04-28-2024 Serum or plasma albumin measurement (mass/volume) 3.4 g/dL 3.2-5.0 [facility] Albumin to globulin ratioOrd ered By: Sidney Singh on 04-28-2024 Albumin/Globulin [Mass ratio] 0.8 {ratio} Low 0.9-2.4 [facility] Albumin to globulin ratio 0.8 RATIO Low 0.9-2.4 [facility] Automated lymphocyte count a s percentage of total leukocytesOrdered By: Sidney Singh on 04-28-2024 Lymphocytes/100 WBC Auto (Unsp spec) 14.7 % Low 19-41 [facility] Bacteria LM.HPF (Urine sed) [#/Area]Ordered By: Sidney Singh on 04-28-2024 Urine Bacteria RARE /hpf None Seen [facility] Urine sediment bacteria count by microscopy (number/high power field) RARE /hpf None Seen [facility] Basophil percentageOrdered B y: Sidney Singh on 04-28-2024 Basophils/100 WBC (Bld) 0.6 % 0-1 [facility] Basophil percentage 0.6 % 0-1 [facility] Bilirubin Test strip Ql (U)O rdered By: Sidney Singh on 04-28-2024 Bilirubin Ql (U) Negative Negative [facility] Bilirubin, totalOrdered By: Sidney Singh on 04-28-2024 Bilirubin [Mass/Vol] 0.20 mg/dL 0.20-1.00 [facility] Comment on above: For patients on eltr ombopag therapy, use of Dimension [place] TBIL is not recommended. Bilirubin, total 0.20 mg/dL 0.20-1.00 [facility] Blood manual differential co mment interpretation (narrative result)Ordered By: Sidney Singh on 04-28-2024 Manual differential comment [place] (Bld) [Interp] SCANNED [facility] Blood urea nitrogen (BUN)/cr eatinine ratioOrdered By: Sidney Singh on 04-28-2024 Urea nitrogen/Creatinine [Mass ratio] 13.7 mg/mg 10- [facility] Blood urea nitrogen (BUN)/creatinine ratio 13.7 RATIO - [facility] CBC W/Diff, Automatedon PLT MORPH CLUMPED Normal [facility] Comment on above: Performed By: #### L 100.0100, L500.4050 ####[facility] [id number] [place], [place], [id number] RED CELL MORPH NORM C+C Normal NORM C C [facility] Comment on above: Performed By: #### L 100.0100, L500.4050 ####[facility] [address] [place], [address] PLT EST ADEQUATE Normal ADEQ [facility] Comment on above: Performed By: #### L 100.0100, L500.4050 ####[facility] [address] [place], [address] SMEAR COMMENT SCANNED Normal [facility] Comment on above: Performed By: #### L 100.0100, L500.4050 ####[facility] [address] [place], [address] Calcium [Mass/Vol]Ordered By : Sidney Singh on 04-28-2024 Serum or plasma calcium measurement (mass/volume) 8.9 mg/dL 8.5-10.1 [facility] Carbon dioxide measurementOr dered By: Sidney Singh on 04-28-2024 CO2 [Moles/Vol] 26.0 mmol/L 21.0-32.0 [facility] Carbon dioxide measurement 26.0 mmol/L 21.0-32.0 [facility] Chloride measurementOrdered By: Sidney Singh on 04-28-2024 Chloride [Moles/Vol] 106 mmol/L 98-107 [facility] Chloride measurement 106 mmol/L 98-107 [facility] Clarity (U)Ordered By: Sidney Singh on 04-28-2024 Urine clarity Clear Clear [facility] Color (U)Ordered By: Sidney fraser on 04-28-2024 Urine color determination Yellow Yellow [facility] Comprehensive Metabolic Prof ilon 04-28-2024 Albumin [Mass/Vol] 3.4 g/dL Normal 3.2-5.0 [facility] Comment on above: Performed By: #### L 100.0100, L500.4050 ####[facility] [address] [place], [address] Albumin/Globulin [Mass ratio] 0.8 {ratio} Low 0.9-2.4 [facility] Comment on above: Performed By: #### L 100.0100, L500.4050 ####[facility] [address] [place], [address] ALK P 131 U/L High 45-117 [facility] Comment on above: Performed By: #### L 100.0100, L500.4050 ####[facility] [address] [place], [address] ALT [Catalytic activity/Vol] 75 U/L High 16-61 [facility] Comment on above: Performed By: #### L 100.0100, L500.4050 ####[facility] [address] [place], [address] AST [Catalytic activity/Vol] 45 U/L High 15-37 [facility] Comment on above: Result Comment: Slig ht Hemolysis, Result may be falsely increased. Performed By: #### L 100.0100, L500.4050 ####[facility] [address] [place], [address] Bilirubin [Mass/Vol] 0.20 mg/dL Normal 0.20-1.00 [facility] Comment on above: Result Comment: For patients on eltrombopag therapy, use of Dimension [place] TBIL is not recommended. Performed By: #### L 100.0100, L500.4050 ####[facility] [address] [place], [address] BUN/CRE 13.7 RATIO Normal 10-20 [facility] Comment on above: Performed By: #### L 100.0100, L500.4050 ####[facility] [address] [place], [address] CA,Total 8.9 mg/dL Normal 8.5-10.1 [facility] Comment on above: Performed By: #### L 100.0100, L500.4050 ####[facility] [address] [place], [address] Chloride [Moles/Vol] 106 mmol/L Normal 98-107 [facility] Comment on above: Performed By: #### L 100.0100, L500.4050 ####[facility] [address] [place], [address] CO2 [Moles/Vol] 26.0 mmol/L Normal 21.0-32.0 [facility] Comment on above: Performed By: #### L 100.0100, L500.4050 ####[facility] [address] [place], [address] Creatinine [Mass/Vol] 0.88 mg/dL Normal 0.70-1.30 [place] Comment on above: Result Comment: The validity of the calculated GFR GFRAA in patients over70 years has not been determined. Clinical correlation isessential. Performed By: #### L 100.0100, L500.4050 ####[facility] [address] [place], [address] ECRCL 147.26 ml/min Normal [facility] Comment on above: Performed By: #### L 100.0100, L500.4050 ####[facility] [address] [place], [address] EST GFR - AA 120 mL/min Normal >60 [facility] Comment on above: Result Comment: Afri can [place]ran GFR Calc Performed By: #### L 100.0100, L500.4050 ####[facility] [address] [place], [address] GAP 7 Normal 5-15 [facility] Comment on above: Performed By: #### L 100.0100, L500.4050 ####[facility] [address] [place], [address] GFR/1.73 sq M.predicted among non-blacks MDRD (S/P/Bld) [Vol rate/Area] 99 mL/min/{1.73_m2} Normal >60 [facility] Comment on above: Result Comment: Non- GFR Calc Performed By: #### L 100.0100, L500.4050 ####[facility] [address] [place], [address] Globulin (S) [Mass/Vol] 4.0 g/dL Normal 2.2-4.2 [facility] Comment on above: Performed By: #### L 100.0100, L500.4050 ####[facility] [address] [place], [address] Glucose [Mass/Vol] 92 mg/dL Normal 74-106 [facility] Comment on above: Performed By: #### L 100.0100, L500.4050 ####[facility] [address] [place], [address] Potassium [Moles/Vol] 4.2 mmol/L Normal 3.5-5.1 [place] Comment on above: Result Comment: Slig ht Hemolysis, Result may be falsely increased. Performed By: #### L 100.0100, L500.4050 ####[facility] [address] [place], [address] Sodium [Moles/Vol] 139 mmol/L Normal 136-145 [facility] Comment on above: Performed By: #### L 100.0100, L500.4050 ####[facility] [address] [place], [address] T PROT 7.4 g/dL Normal 6.4-8.2 [facility] Comment on above: Performed By: #### L 100.0100, L500.4050 ####[facility] [address] [place], [address] Urea nitrogen [Mass/Vol] 12 mg/dL Normal 7-18 [facility] Comment on above: Performed By: #### L 100.0100, L500.4050 ####[facility] [address] [place], [address] Creatinine [Mass/Vol]Ordered By: Sidney Singh on 04-28-2024 Serum or plasma creatinine measurement (mass/volume) 0.88 mg/dL 0.70-1.30 [facility] Emergency Department Summary on 04-28-2024 Emergency Department Summary Normal [facility] Eosinophil percentageOrdered By: Sidney Singh on 04-28-2024 Eosinophils/100 WBC (Bld) 3.3 % 0-5 [facility] Eosinophil percentage 3.3 % 0-5 [place] Epithelial cells.squamous LM Ql (Urine sed)Ordered By: Sidney Singh on 04-28-2024 Epithelial cells.squamous LM.HPF (Urine sed) [#/Area] 0 /[HPF] 0-5 [facility] Erythrocyte distribution wid th (RBC) [Ratio]Ordered By: Sidney Singh on 04-28-2024 Erythrocyte distribution width ratio 14.2 % 11.6-14.6 [facility] Erythrocyte distribution width standard deviation 42.9 fl 35.1-43.9 [facility] Erythrocyte distribution wid th ratioOrdered By: Sidney Singh on 04-28-2024 Erythrocyte distribution width (RBC) [Ratio] 14.2 % 11.6-14.6 [facility] Erythrocyte distribution wid th standard deviationOrdered By: Sidney Singh on 04-28-2024 Erythrocyte distribution width (RBC) [Entitic vol] 42.9 fL 35.1-43.9 [facility] Erythrocyte distribution width (RBC) [Ratio] 42.9 fl 35.1-43.9 [facility] Erythrocyte morphology asses smentOrdered By: Sidney Singh on 04-28-2024 RBC morphology finding Nom (Bld) NORM C+C NORMAL NORM C&C [facility] Estimated glomerular filtrat ion rate (GFR) AmericanOrdered By: Sidney Singh on 04-28-2024 Estimated GFR (MDRD) Amer 120 mL/min >60 [facility] Comment on above: GFR Calc Estimated glomerular filtration rate (GFR) 120 mL/min >60 [facility] Estimation of creatinine poonam aranceOrdered By: Sidney Singh on 04-28-2024 Estimated Creatinine Clearance Calc 147.26 ml/min [facility] Estimation of creatinine clearance 147.26 ml/min [facility] Glomerular filtration rate ( GFR) estimationOrdered By: Sidney Singh on 04-28-2024 Estimated GFR (MDRD) Non-Af Amer 99 mL/min >60 [facility] Comment on above: Non- GFR Calc GFR/1.73 sq M.predicted among non-blacks MDRD (S/P/Bld) [Vol rate/Area] 99 mL/min/{1.73_m2} >60 [facility] Glomerular filtration rate (GFR) estimation 99 mL/min >60 [facility] Glucose Ql (U)Ordered By: Teto Singh on 04-28-2024 Urine Glucose (UA) Normal mg/dl Normal [facility] Glucose measurementOrdered B y: Sidney Singh on 04-28-2024 Glucose [Mass/Vol] 92 mg/dL 74-106 [facility] Glucose measurement 92 mg/dL 74-106 [facility] Hematocrit Auto (Bld) [Volum e fraction]Ordered By: Sidney Singh on 04-28-2024 Hematocrit (Bld) [Volume fraction] 41.3 % 40-54 [facility] Automated blood hematocrit (percentage) 41.3 % 40-54 [facility] Hemoglobin measurementOrdere d By: Sidney Singh on 04-28-2024 Hemoglobin (Bld) [Mass/Vol] 13.4 g/dL 13.0-16.5 [facility] Hemoglobin measurement 13.4 g/dL 13.0-16.5 [facility] Immature granulocytes/100 WB C Auto (Bld)Ordered By: Sidney Singh on 04-28-2024 Immature granulocytes/100 WBC (Bld) 0.900 % 0.0-0.9 [facility] Comment on above: IG% - Immature Granu locytes (promyelocytes, myelocytes and metamyelocytes) > 1% indicates that a LEFT SHIFT is Present. Automated immature granulocyte percentage 0.900 % 0.0-0.9 [facility] Ketones Test strip Ql (U)Ord ered By: Sidney Singh on 04-28-2024 Ketones Ql (U) Negative Negative [facility] Laboratory - Chemistry and C hemistry - challengeOrdered By: Sidney Singh on 04-28-2024 AST [Catalytic activity/Vol] 45 U/L High 15-37 [facility] Comment on above: Slight Hemolysis, Re sult may be falsely increased. Lymphocytes Auto (Unsp spec) [#/Vol]Ordered By: Sidney Singh on 04-28-2024 Lymphocytes (Bld) [#/Vol] 1.51 10*3/uL 0.83-4.51 [facility] Absolute lymphocyte count 1.51 X10^3/uL 0.83-4.51 [facility] Lymphocytes/100 WBC Auto (Un sp spec)Ordered By: Sidney Singh on 04-28-2024 Lymphocytes/100 WBC (Bld) 14.7 % Low 19-41 [facility] Automated lymphocyte count as percentage of total leukocytes 14.7 % Low 19-41 [facility] MCV (RBC) [Entitic vol]Order ed By: Sidney Singh on 04-28-2024 MCV (mean corpuscular volume) determination 82.9 fL 80-94 [facility] MCV (mean corpuscular volume ) determinationOrdered By: Sidney Singh on 04-28-2024 MCV (RBC) [Entitic vol] 82.9 fL 80-94 [facility] Manual differential comment [place] (Bld) [Interp]Ordered By: Sidney Singh on 04-28-2024 Differential Comment SCANNED [facility] Blood manual differential comment interpretation (narrative result) SCANNED [facility] Mean corpuscular hemoglobin (MCH) determinationOrdered By: Sidney Singh on 04-28-2024 MCH (RBC) [Entitic mass] 26.9 pg Low 27.0-32.0 [facility] Mean corpuscular hemoglobin (MCH) determination 26.9 pg Low 27.0-32.0 [facility] Mean corpuscular hemoglobin concentration (MCHC) determinationOrdered By: Sidney Singh on 04-28-2024 MCHC (RBC) [Mass/Vol] 32.4 g/dL 32-36 [place] Mean corpuscular hemoglobin concentration (MCHC) determination 32.4 g/dL 32-36 [facility] Mean platelet volume determi nationOrdered By: Sidney Singh on 04-28-2024 Platelet mean volume (Bld) [Entitic vol] 9.3 fL 6.2-12.0 [facility] Mean platelet volume determination 9.3 fl 6.2-12.0 [facility] Microscopic analysis of urin e for red blood cells (RBC)Ordered By: Sidney Singh on 04-28-2024 Urine RBC 0-5 SEEN /hpf 0-5 [facility] Microscopic analysis of urine for red blood cells (RBC) 0-5 SEEN /hpf 0-5 [facility] Monocyte percentageOrdered B y: Sidney Singh on 04-28-2024 Monocytes/100 WBC (Bld) 4.2 % 0-10 [facility] Monocyte percentage 4.2 % 0-10 [facility] Mucus LM Ql (Urine sed)Order ed By: Sidney Singh on 04-28-2024 Mucus Ql (Urine sed) 0 SEEN /hpf [place] Neutrophil percentageOrdered By: Sidney Singh on 04-28-2024 Neutrophils/100 WBC (Bld) 76.3 % High 47-70 [facility] Neutrophil percentage 76.3 % High 47-70 [place] Nitrite Test strip Ql (U)Ord ered By: Sidney Singh on 04-28-2024 Nitrite Ql (U) Negative Negative [facility] No Panel InformationOrdered By: Sidney Singh on 04-28-2024 45 U/L High 15-37 [facility] Nucleated red blood cell per centageOrdered By: Sidney Singh on 04-28-2024 Nucleated RBC/100 WBC (Bld) [Ratio] 0 % 0-5 [facility] Nucleated red blood cell percentage 0 % 0-5 [facility] Platelet countOrdered By: Teto Singh on 04-28-2024 Platelets (Bld) [#/Vol] 362 10*3/uL 150-450 [facility] Platelet count 362 K/mm3 150-450 [facility] Platelet estimateOrdered By: Sidney Singh on 04-28-2024 Platelets LM Ql (Bld) ADEQUATE ADEQ [place] Platelet morphologyOrdered B y: Sidney Singh on 04-28-2024 Platelet morphology finding Nom (Bld) CLUMPED [facility] Platelet morphology finding Nom (Bld)Ordered By: Sidney Singh on 04-28-2024 Platelet Morphology Comment CLUMPED [facility] Platelet morphology CLUMPED [facility] Platelets LM Ql (Bld)Ordered By: Sidney Singh on 04-28-2024 Platelet Estimate ADEQUATE ADEQ [facility] Platelet estimate ADEQUATE ADEQ [facility] Potassium measurementOrdered By: Sidney Singh on 04-28-2024 Potassium [Moles/Vol] 4.2 mmol/L 3.5-5.1 [place] Comment on above: Slight Hemolysis, Re sult may be falsely increased. Potassium measurement 4.2 mmol/L 3.5-5.1 [place] Protein Test strip Ql (U)Ord ered By: Sidney Singh on 04-28-2024 Protein Ql (U) Negative Negative [facility] RBC Auto (Bld) [#/Vol]Ordere d By: Sidney Singh on 04-28-2024 RBC (Bld) [#/Vol] 4.98 10*6/uL 4.6-6.2 [facility] Automated blood erythrocyte count 4.98 M/mm3 4.6-6.2 [facility] RBC morphology finding Nom ( Bld)Ordered By: Sidney Singh on 04-28-2024 Red Blood Cell Morphology NORM C+C NORMAL NORM C&C [facility] Erythrocyte morphology assessment NORM C+C NORMAL NORM C&C [facility] Serum anion gap measurementO rdered By: Sidney Singh on 04-28-2024 Anion gap [Moles/Vol] 7 mmol/L 5-15 [place] Serum anion gap measurement 7 5-15 [facility] Serum globulin measurementOr dered By: Sidney Singh on 04-28-2024 Globulin (S) [Mass/Vol] 4.0 g/dL 2.2-4.2 [facility] Serum globulin measurement 4.0 g/dL 2.2-4.2 [facility] Serum or plasma alanine vanegas otransferase (ALT) measurementOrdered By: Sidney Singh on 04-28-2024 ALT [Catalytic activity/Vol] 75 U/L High 16-61 [facility] Serum or plasma albumin paramjit urement (mass/volume)Ordered By: Sidney Singh on 04-28-2024 Albumin [Mass/Vol] 3.4 g/dL 3.2-5.0 [facility] Serum or plasma alkaline thomas sphatase measurementOrdered By: Sidney Singh on 04-28-2024 ALP [Catalytic activity/Vol] 131 U/L High 45-117 [facility] Serum or plasma calcium paramjit urement (mass/volume)Ordered By: Sidney Singh on 04-28-2024 Calcium [Mass/Vol] 8.9 mg/dL 8.5-10.1 [facility] Serum or plasma creatinine m easurement (mass/volume)Ordered By: Sidney Singh on 04-28-2024 Creatinine [Mass/Vol] 0.88 mg/dL 0.70-1.30 [place] Comment on above: The validity of the calculated GFR & GFRAA in patients over 70 years has not been determined. Clinical correlation is essential. Serum or plasma urea nitroge n measurement (mass/volume)Ordered By: Sidney Singh on 04-28-2024 Urea nitrogen [Mass/Vol] 12 mg/dL 7-18 [facility] Sodium levelOrdered By: Sidney Singh on 04-28-2024 Sodium [Moles/Vol] 139 mmol/L 136-145 [facility] Sodium level 139 mmol/L 136-145 [facility] Specific gravity (U) [Rel de nsity]Ordered By: Sidney Singh on 04-28-2024 Urine specific gravity measurement 1.010 1.002-1.030 [facility] Squamous epithelial cells de tection in urine sediment by light microscopyOrdered By: Sidney Singh on 04-28-2024 Epithelial cells.squamous LM Ql (Urine sed) 0 SEEN /hpf 0-5 [facility] Total proteinOrdered By: Boaz Singh on 04-28-2024 Protein [Mass/Vol] 7.4 g/dL 6.4-8.2 [facility] Total protein 7.4 g/dL 6.4-8.2 [facility] Urea nitrogen [Mass/Vol]Orde red By: Sidney Singh on 04-28-2024 Serum or plasma urea nitrogen measurement (mass/volume) 12 mg/dL 7-18 [facility] Urinalysis, Completeon 04-28 BACTERIA RARE Normal None Seen [facility] Comment on above: Order Comment: CLEAN CATCH Performed By: #### L 400.0001 ####[facility] [address] [place], [address] RBC 0-5 SEEN Normal 0-5 [facility] Comment on above: Order Comment: CLEAN CATCH Performed By: #### L 400.0001 ####[facility] [address] [place], [address] EPI,SQUAMOUS 0 SEEN Normal 0-5 [facility] Comment on above: Order Comment: CLEAN CATCH Performed By: #### L [id number] ####[facility] [address] [place], [address] Mucus Ql (Urine sed) 0 SEEN Normal [facility] Comment on above: Order Comment: CLEAN CATCH Performed By: #### L 400.0001 ####[facility] [address] [place], [address] WBC 0 SEEN Normal 0-5 [facility] Comment on above: Order Comment: CLEAN CATCH Performed By: #### L 400.0001 ####[facility] [address] [place], [address] Urine blood detectionOrdered By: Sidney Singh on 04-28-2024 Urine Occult Blood Negative Negative [facility] Urine clarityOrdered By: Boaz Singh on 04-28-2024 Clarity (U) Clear Clear [facility] Urine color determinationOrd ered By: Sidney Singh on 04-28-2024 Color (U) Yellow Yellow [facility] Urine glucose detectionOrder ed By: Sidney Singh on 04-28-2024 Glucose Ql (U) Normal mg/dl Normal [facility] Urine glucose detection Normal mg/dl Normal [facility] Urine leukocyte esterase det ection by dipstickOrdered By: Sidney Singh on 04-28-2024 Leukocyte esterase Test strip Ql (U) Negative Negative [facility] Urine pHOrdered By: Sidney cardona on 04-28-2024 pH (U) 7.0 [pH] 5.0 - 8.0 [facility] Urine sediment bacteria coun t by microscopy (number/high power field)Ordered By: Sidney Singh on 04-28-2024 Bacteria LM.HPF (Urine sed) [#/Area] RARE /hpf None Seen [facility] Urine specific gravity measu rementOrdered By: Sidney Singh on 04-28-2024 Specific gravity (U) [Rel density] 1.010 1.002-1.030 [facility] Urine total bilirubin detect ion by test stripOrdered By: Sidney Singh on 04-28-2024 Urine total bilirubin detection by test strip Negative Negative [facility] Urine urobilinogen measureme ntOrdered By: Sidney Singh on 04-28-2024 Urobilinogen Ql (U) Normal mg/dl Normal [place] Urobilinogen Ql (U)Ordered B y: Sidney Singh on 04-28-2024 Urine Urobilinogen Normal mg/dl Normal [facility] White blood cell (WBC) count Ordered By: Sidney Singh on 04-28-2024 WBC (Bld) [#/Vol] 10.3 10*3/uL 4.4-11.0 [facility] White blood cell (WBC) count 10.3 K/mm3 4.4-11.0 [facility] White blood cell countOrdere d By: Sidney Singh on 04-28-2024 Urine WBC 0 SEEN /hpf 0-5 [facility] White blood cell count 0 SEEN /hpf 0-5 [facility] White blood cell count 0 SEEN /hpf [facility] pH (U)Ordered By: Sidney chahal on 04-28-2024 Urine pH 7.0 5.0 - 8.0 [facility] [id number] 04-21-2024 [id number] HNO ID: [id number] Author: LISSET LIRA, YANIRA Service: ? Author Type: Registered Nurse Type: [id number] Filed: 04/21/2024 10:05 Note Text: The patient received a copy of Colonoscopy discharge instructions that contain information for how to contact the physician who performed the procedure and when to seek medical care. Normal [facility] Colonoscopyon 04-21-2024 Colonoscopy [facility] Gastrointestinal Endoscopy Patient Name: Barrett Lopez Procedure Date: 04/21/2024 9:03 AM Date of : 1975 Admit Type: Outpatient Age: 48 Gender: Male Note Status: Finalized Procedure: Colonoscopy Indications: Abdominal pain in the right lower quadrant Providers: Guerline Andersen MD Patient Profile: This is a 48 year old male. Refer to note in patient chart for documentation of history and physical. Last Colonoscopy: 1 year ago. Referring Physician: Asia Salgado (Referring MD) Medicines: Fentanyl 100 micrograms IV, Midazolam 5 mg IV, Diphenhydramine 50 mg IV Complications: No immediate complications. Requesting Provider: Procedure: Pre-Anesthesia Assessment: - Prior to the procedure, a History and Physical was performed, and patient medications and allergies were reviewed. The patient is competent. The risks and benefits of the procedure and the sedation options and risks were discussed with the patient. All questions were answered and informed consent was obtained. Patient identification and proposed procedure were verified by the physician and the nurse in the procedure room. Prophylactic Antibiotics: The patient does not require prophylactic antibiotics. Prior Anticoagulants: The patient has taken no anticoagulant or antiplatelet agents. ASA Grade Assessment: III - A patient with severe systemic disease. After reviewing the risks and benefits, the patient was deemed in satisfactory condition to undergo the procedure. The anesthesia plan was to use moderate sedation / analgesia (conscious sedation). Immediately prior to administration of medications, the patient was re-assessed for adequacy to receive sedatives. The heart rate, respiratory rate, oxygen saturations, blood pressure, adequacy of pulmonary ventilation, and response to care were monitored throughout the procedure. The physical status of the patient was re-assessed after the procedure. After I obtained informed consent, the scope was passed under direct vision. Throughout the procedure, the patient's blood pressure, pulse, and oxygen saturations were monitored continuously. The Colonoscope was introduced through the anus and advanced to the cecum, identified by the appendiceal orifice, ileocecal valve and palpation. The colonoscopy was performed without difficulty. The patient tolerated the procedure well. The quality of the bowel preparation was fair. The ileocecal valve, appendiceal orifice, and rectum were photographed. Moderate Sedation: Moderate (conscious) sedation was personally administered by the endoscopist. The following parameters were monitored: oxygen saturation, heart rate, blood pressure, and response to care. Total physician intraservice time was 9 minutes. The administration of moderate sedation was initiated at 09:15. Findings: The perianal and digital rectal examinations were normal. A moderate amount of stool was found in the entire colon, interfering with visualization. There was evidence of a prior end-to-end colo-rectal anastomosis in the mid rectum. This was patent and was characterized by healthy appearing mucosa. Impression: - Preparation of the colon was fair. - Stool in the entire examined colon. - Patent end-to-end colo-rectal anastomosis, characterized by healthy appearing mucosa. - No specimens collected. Recommendation: - Discharge patient to home. - Resume previous diet. - Continue present medications. - Repeat colonoscopy in 3 years for screening purposes. - Patient has a contact number available for emergencies. The signs and symptoms of potential delayed complications were discussed with the patient. Return to normal activities tomorrow. Written discharge instructions were provided to the patient. Procedure Code(s): --- Professional --- 53502, Colonoscopy, flexible; diagnostic, including collection of specimen(s) by brushing or washing, when performed (separate procedure) CPT copyright 202 [employer]. All rights reserved. The codes documented in this report are preliminary and upon protective officer review may be revised to meet current compliance requirements. Attending Participation: I was present and participated during the entire procedure, including non-hernandez portions, and during the administration and monitoring of Moderate Sedation. Scope In: 9:19:32 AM Scope Out: 9:24:54 AM MD Guerline Hammond MD 04/21/2024 9:32:22 AM This report has been signed electronically by Guerline Andersen MD Number of Addenda: 0 Note Initiated On: 04/21/2024 9:03 AM Estimated Blood Loss: Estimated blood loss: none. Normal [facility] Flexible sigmoidoscopy study on 04-21-2024 [facility] Gastrointestinal Endoscopy Patient Name: Barrett Lopez Procedure Date: 04/21/2024 9:03 AM Date of : 1975 Admit Type: Outpatient Age: 48 Gender: Male Note Status: Finalized Procedure: Colonoscopy Indications: Abdominal pain in the right lower quadrant Providers: Guerline Andersen MD Patient Profile: This is a 48 year old male. Refer to note in patient chart for documentation of history and physical. Last Colonoscopy: 1 year ago. Referring Physician: Asia Salgado (Referring MD) Medicines: Fentanyl 100 micrograms IV, Midazolam 5 mg IV, Diphenhydramine 50 mg IV Complications: No immediate complications. Requesting Provider: Procedure: Pre-Anesthesia Assessment: - Prior to the procedure, a History and Physical was performed, and patient medications and allergies were reviewed. The patient is competent. The risks and benefits of the procedure and the sedation options and risks were discussed with the patient. All questions were answered and informed consent was obtained. Patient identification and proposed procedure were verified by the physician and the nurse in the procedure room. Prophylactic Antibiotics: The patient does not require prophylactic antibiotics. Prior Anticoagulants: The patient has taken no anticoagulant or antiplatelet agents. ASA Grade Assessment: III - A patient with severe systemic disease. After reviewing the risks and benefits, the patient was deemed in satisfactory condition to undergo the procedure. The anesthesia plan was to use moderate sedation / analgesia (conscious sedation). Immediately prior to administration of medications, the patient was re-assessed for adequacy to receive sedatives. The heart rate, respiratory rate, oxygen saturations, blood pressure, adequacy of pulmonary ventilation, and response to care were monitored throughout the procedure. The physical status of the patient was re-assessed after the procedure. After I obtained informed consent, the scope was passed under direct vision. Throughout the procedure, the patient's blood pressure, pulse, and oxygen saturations were monitored continuously. The Colonoscope was introduced through the anus and advanced to the cecum, identified by the appendiceal orifice, ileocecal valve and palpation. The colonoscopy was performed without difficulty. The patient tolerated the procedure well. The quality of the bowel preparation was fair. The ileocecal valve, appendiceal orifice, and rectum were photographed. Moderate Sedation: Moderate (conscious) sedation was personally administered by the endoscopist. The following parameters were monitored: oxygen saturation, heart rate, blood pressure, and response to care. Total physician intraservice time was 9 minutes. The administration of moderate sedation was initiated at 09:15. Findings: The perianal and digital rectal examinations were normal. A moderate amount of stool was found in the entire colon, interfering with visualization. There was evidence of a prior end-to-end colo-rectal anastomosis in the mid rectum. This was patent and was characterized by healthy appearing mucosa. Impression: - Preparation of the colon was fair. - Stool in the entire examined colon. - Patent end-to-end colo-rectal anastomosis, characterized by healthy appearing mucosa. - No specimens collected. Recommendation: - Discharge patient to home. - Resume previous diet. - Continue present medications. - Repeat colonoscopy in 3 years for screening purposes. - Patient has a contact number available for emergencies. The signs and symptoms of potential delayed complications wer (more content not included)... [facility] Radiology Study observation (narrative) [facility] HISTORY PHYSICALon HISTORY PHYSICAL HNO ID: [id number] Author: GUERLINE ANDERSEN MD Service: General Surgery Author Type: Physician Type: H&P Filed: 04/21/2024 08:18 Note Text: HISTORY AND PHYSICAL Barrett Lopez : 1975 REFERRING PHYSICIAN: No referring provider defined for this encounter. CHIEF COMPLAINT: Patient presents with: colon consult HPI: Barrett is a 48 year old male referred for endoscopy. Barrett notes here for repeat colonoscopy after poor prep. My note from 12/05/2023 for original scheduled colonoscopy Barrett notes abdominal pain. The pain occurs in the following locations: RUQ and RLQ . 12/31. Constant sharp/stabbing pain for the last 6 months. Refers putting a 2L pop bottle of cold water helps the pain. Epigastric pain is the worst when laying down at night. Barrett notes diarrhea x 1 week- not watery Barrett denies constipation. Barrett denies a change in bowel habits. Barrett denies melena. Barrett notes bright red blood per rectum on toilet paper. Barrett denies hemorrhoids. Notes family history of colon issues. Maternal grandfather- colon cancer Interim HPI Barrett was scheduled for colonoscopy in December- got the dates confused and showed up 1 month early. The provider attempted to perform a colonoscopy but there was stool in the rectum so it was aborted. Barrett c/o continued RUQ AND RLQ pain- the same, no change. Notes only eats one meal a day Pain is at its worse after having BM Daily BM w/o straining No longer take Omeprazole. Last colonoscopy was 11/2022 with findings of diverticulosis. No specimens collected. Sedation received for EGD 11/2023 in [facility]: Fentanyl 100 micrograms IV, Midazolam 5 mg IV, Diphenhydramine 50 mg IV, Benzocaine spray CURRENT MEDICATIONS Current Outpatient Medications Medication Sig ZOLOFT 25 mg tablet Take 25 mg by mouth once daily. cyclobenzaprine (FLEXERIL) 10 mg tablet Take by mouth once daily. peg 3350-Electrolytes (GOLYTELY) 236-22.74-6.74 -5.86 gram suspension Take 4,000 mL by mouth one time only for 1 dose. Refer to printed prep instructions from your provider. No current facility-administered medications for this visit. 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 COLONOSCOPY FLX DX W/COLLJ SPEC WHEN PFRMD 04/03/2021 repeat in 1 year-due to poor bowel prep EGD 11/26/2022 EGD 12/08/2023 ESOPHAGOGASTRODUODENOSC OPY TRANSORAL DIAGNOSTIC 04/03/2018 EGD ESOPHAGOGASTRODUODENOSC OPY TRANSORAL DIAGNOSTIC 01/16/2021 ESOPHAGOGASTRODUODENOSC OPY TRANSORAL DIAGNOSTIC 04/03/2021 FOOT SURGERY HX Bilateral 1991 preair of broken feet FRACTURE SURGERY HAND SURGERY HX Left 2006 repair of fracture KNEE SURGERY HX Right 2016 LAPS SURG CHOLECYSTECTOMY W/CHOLANGIOGRAPHY 12/08/2017 PAST SURGICAL HISTORY OF 04/2007 fracture/Deviated septum TONSILLECTOMY AND ADENOIDECTOMY AGE 14/> 2011 T/A (over age 14 years) TONSILLECTOMY HX FAMILY HISTORY FAMILY HISTORY Problem Relation Age of Onset Diabetes Mother Hypertension Mother Cancer Mother lung and brain Hearing Loss Maternal Grandmother Diabetes Maternal Grandmother Heart Maternal Grandfather AR other (unknown) Father brain aneurysm? SOCIAL HISTORY Social History Tobacco Use Smoking status: Never Smokeless tobacco: Never Vaping Use Vaping status: Never Used Substance Use Topics Alcohol use: No Drug use: No REVIEW OF SYMPTOMS: REVIEW OF SYSTEMS: General: The patient + fatigue, + weight loss, + weight gain, denies feeling hot, and feelings of cold. Eyes: The patient denies glaucoma, denies eye injury/surgery, denies glasses or contacts. Ear/Nose/Throat: The patient denies allergies, denies hayfever, denies ear infections, and denies bloody noses. Cardiovascular: The patient denies chest pain, denies heart disease, denies high blood pressure, denies high cholesterol, and denies poor circulation. Respiratory: The patient denies tuberculosis, denies pneumonia, denies frequent cough, denies shortness of breath, and denies coughing up blood. Gastrointestinal: The patient denies difficulty swallowing, + acid reflux, denies ulcers, denies jaundice/hepatitis, denies gallbladder problems, denies vomiting, denies black or tarry stools, denies hemo (more content not included)... Normal [facility] * * *Final Report* * * DATE OF EXAM: Apr 07 2024 7:01PM [facility] [id number] [facility] / PROCEDURE REASON: multiple diagnoses * * * * Physician Interpretation * * * * EXAMINATION: MRI ELBOW WO IVCON LT PATIENT/TECHNOLOGIST PROVIDED HISTORY: left elbow pain, hx of surgery CLINICAL HISTORY: 48 years old Male with Lesion of left ulnar nerve Elbow pain, chronic, left . Internal derangement. COMPARISON: Left elbow MRI 12/06/2021, LEFT elbow radiographs 11/21/2021 TECHNIQUE: Multiplanar MRI of the LEFT elbow with multiple sequences without contrast. RESULT: Ulnar collateral ligament: Intact. Radial collateral ligament: Intact. Lateral ulnar collateral ligament: No apparent abnormality. Common extensor tendon: Intact with mild tendinosis. Common flexor tendon: Intact. Biceps tendon: Postsurgical changes of distal biceps tendon repair with endobutton. Thickening of the distal biceps tendon similar to prior MRI related to postsurgical changes. No recurrent tear. Triceps tendon: Intact. Brachialis tendon: Intact. Articular cartilage: No high-grade chondral loss. Muscles: Normal muscle bulk and signal intensity. Bone marrow: No fractures or marrow replacing lesions. Mild increased signal in the radial tuberosity adjacent to the Endobutton appears unchanged since MRI 12/06/2021 related to postsurgical change. Nerves: The ulnar nerve is visualized and demonstrates normal position, size and signal intensity. The radial and median nerves are partially seen and appear normal as well. Joint fluid: No joint effusion or synovitis. IMPRESSION: Normal MR appearance of the ulnar nerve as clinically queried. Stable postsurgical changes of distal biceps tendon repair without recurrent tear. Senior Net Web Developer: PSCB Transcribe Date/Time: Apr 09 2024 9:30A Dictated by : AMAURY VALENCIA DO This examination was interpreted and the report reviewed and electronically signed by: AMAURY VALENCIA DO on Apr 09 2024 9:48AM EST [id number] [facility] 03-23-2024 [facility] Office Visit (NESDMN ) BARRETT LOPEZ ([id number]) 1975 M Date Time Provider Department 03/23/24 2:45 PM OTIS ALTAMIRANO [facility] During your visit today, we recorded the following information about you: Otis Altamirano MD 03/23/2024 3:51 PM Signed UNIVERSAL PROTOCOL / SAFETY CHECKLIST Procedure to be Performed: neuromuscular ultrasound Sign In: A Moment of CARE was completed. Personnel directly involved with the procedure wore the appropriate PPE (Personal Protective Equipment). Patient/Surrogate Stated/Verified: PATIENT VERIFIED(optional for EMERGENT procedures): Patient name, Date of , Relevant allergies and The intended procedure Time Out Communication: Intended patient and procedure match the source documents. Consent documented and matches the intended procedure. Sign Out: SIGN OUT (optional for EMERGENT procedures): Post-procedure follow-up management communicated and Plan of Care Visit completed when applicable. Otis Altamirano MD Allergies As of Date: 03/23/2024 Noted Allergy Reaction CODEINE 01/02/2006 LATEX 07/02/2017 7 - Swelling Comments: AND rash NAPROXEN 11/22/2022 4 - Hives VICODIN (HYDROCODONE-ACETAMINOP HE*01/02/2006 Date Reviewed: 03/19/2024 Reviewed by: Shruthi Betts MA - Fully Assessed Primary Visit Diagnosis: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] Order(s):US NEUROMUSCULAR (POC) NEUROLOGY USE ONLY [3460059] Order #: [id number]. #:[id number]: 1 Prescriptions as of 03/23/2024 - ZOLOFT 25 mg tablet Take 25 mg by mouth once daily. - cyclobenzaprine (FLEXERIL) 10 mg tablet Take by mouth once daily. Meds Comments as of 01/08/2022: 01/08/22 No medication changes with the past 30 days. Katerina Britt RN Problem List As Of Date 03/23/2024 Noted Resolved Unspecified adjustment reaction [F43.20] 10/23/2011 Chronic cholecystitis due to cholelithiasis wit*12/02/2017 Obesity, Class III, BMI >= 40 [E66.01] 11/27/2022 BRBPR (bright red blood per rectum) [K62.5] 12/08/2023 Chronic RLQ pain [R10.31, G89.29] 12/08/2023 Chronic RUQ pain [R10.11, G89.29] 12/08/2023 Epigastric pain [R10.13] 12/08/2023 Gastroesophageal reflux disease without esophag*12/08/2023 Encounter Status:Closed by OTIS ALTAMIRANO on 03/23/24 Normal [facility] NEUROMUSCULAR (POC) NEURO LOGY USE ONLYon 03-23-2024 [facility] Radiology Study observation (narrative) [facility] CNOVon 03-19-2024 CNOV Office Visit (ORMDNA ) BARRETT LOPEZ ([id number]) 1975 M Date Time Provider Department 03/19/24 11:15 AM DEANDRA OCHOA During your visit today, we recorded the following information about you: Deandra Ochoa DO 03/19/2024 12:28 PM Signed Follow Up Visit Chief Complaint Barrett Lopez is a 48 year old male who presents today for follow up office visit. Patient presents with: Left Arm - Established Patient, Pain, Numbness History of Present Illness PAIN EVALUATION 03/19/2024 1128 Pain Level: 10 Pain Location: Arm-Left Description: Sharp;Numbness;Tingling ;Throbbing Duration Units: Years Frequency: Continuous HPI: Barrett Lopez is a 48 year old male for a follow up visit left elbow pain. Patient has been experiencing left ulnar nerve symptoms. He denies injury. Pain history is noted as above. Right hand dominate. Is there any overall improvement in your condition? No Any new injury, since being seen last: No REVIEW OF SYMPTOMS: Patient did not have, and does not currently have, any weight loss, malaise, fever, chills, headache, chest pain, chest pressure, palpitations, cough, shortness of breath, orthopnea, paroxsymal nocturnal dyspnea, nausea, vomiting, diarrhea, constipation, melena, hematochezia, urinary difficulties, prolonged bleeding, easily bruising, heat or cold intolerance, new onset joint pain or swelling, new onset extremity weakness or numbness, new onset auditory or visual disturbances, lightheadedness, dizziness, partial loss of consciousness or full loss of consciousness. Current Outpatient Medications Medication Sig ZOLOFT 25 mg tablet Take 25 mg by mouth once daily. cyclobenzaprine (FLEXERIL) 10 mg tablet Take by mouth once daily. No current facility-administered medications for this visit. Physical Exam Vitals: There were no vitals taken for this visit. Psych: Pleasant, good affect and mood General Appearance: Well appearing, alert, in no acute distress, well-hydrated, well nourished.. Skin: Skin color, texture, turgor normal, no suspicious rashes or lesions. Peripheral Pulses: Normal. Neurologic: Gait normal. Reflexes normal and symmetric. Sensation grossly intact.. Lymph Nodes: No cervical lymphadenopathy, No supraclavicular lymphadenopathy, No axillary lymphadenopathy., and No inguinal lymphadenopathy.. Respiratory: No recent pulmonary infection, hemoptysis, chronic cough, or shortness of breath at rest Rheumatologic: Joint deformities: left elbow pain Right Hand Exam Right hand exam is normal. Tenderness The patient is experiencing no tenderness. Range of Motion The patient has normal right wrist ROM. Wrist Extension: normal Flexion: normal Pronation: normal Supination: normal Muscle Strength The patient has normal right wrist strength. Tests Phalen?s Sign: negative Tinel's sign (median nerve): negative Anamika's test: negative Other Erythema: absent Sensation: normal Pulse: present Comments: B/l med/uln/rad/ax nerves intact Left Hand Exam Left hand exam is normal. Tenderness The patient is experiencing no tenderness. Range of Motion The patient has normal left wrist ROM. Wrist Extension: normal Flexion: normal Pronation: normal Supination: normal Muscle Strength The patient has normal left wrist strength. Tests Phalen?s Sign: negative Tinel's sign (median nerve): negative Anamika's test: negative Other Erythema: absent Sensation: normal Pulse: present Right Elbow Exam Right elbow exam is normal. Tenderness The patient is experiencing no tenderness. Range of Motion Extension: normal Flexion: normal Pronation: normal Supination: normal Muscle Strength Pronation: 5/5 Supination: 5/5 Other Erythema: absent Sensation: normal Pulse: present Comments: Med,rad nerves intact Left Elbow Exam Tenderness The patient is experiencing tenderness in the medial epicondyle. Range of Motion Extension: normal Flexion: normal Pronation: normal Supination: normal Muscle Strength Pronation: 5/5 Supination: 5/5 Other Erythema: absent Sensation: normal Pulse: present Comments: Dec uln nerve left hand, weakness in paper grab Assessment and Plan Radiographs: No imaging to review. Impression: Encounter Diagnosis ICD-10-CM 1. Lesion of left ulnar nerve G56.22 NEUROMUSCULAR ULTRASOUND/NEUROLOGY MRI ELBOW WO IVCON LEFT NEUROMUSCULAR ULTRASOUND/NEUROLOGY 2. Elbow pain, chronic, left M25.522 MRI ELBOW WO IVCON LEFT G89.29 NEUROMUSCULAR ULTRASOUND/NEUROLOGY Today, in detail, through a thorough evaluation, we discussed possible etiologies of pain and our plans for further diagnostic and therapeutic interventions. We discussed strategies for decreasing pain and improving strength, stability and motion. Patient's questions were (more content not included)... Normal [facility] CNOVon 03-03-2024 CNOV Office Visit (GENSWS ) BARRETT LOPEZ ([id number]) 1975 M Date Time Provider Department 03/03/24 10:00 AM ASIA SALGADO [facility] During your visit today, we recorded the following information about you: Pulse Blood pressure Weight 92/minute 130/87 143.1 kg Asia Salgado APRN.CNP 03/03/2024 10:17 AM Signed HISTORY AND PHYSICAL Barrett Lopez : 1975 REFERRING PHYSICIAN: No referring provider defined for this encounter. CHIEF COMPLAINT: Patient presents with: colon consult HPI: Barrett is a 48 year old male referred for endoscopy. Barrett notes here for repeat colonoscopy after poor prep. My note from 12/05/2023 for original scheduled colonoscopy Barrett notes abdominal pain. The pain occurs in the following locations: RUQ and RLQ . 12/31. Constant sharp/stabbing pain for the last 6 months. Refers putting a 2L pop bottle of cold water helps the pain. Epigastric pain is the worst when laying down at night. Barrett notes diarrhea x 1 week- not watery Barrett denies constipation. Barrett denies a change in bowel habits. Barrett denies melena. Barrett notes bright red blood per rectum on toilet paper. Barrett denies hemorrhoids. Notes family history of colon issues. Maternal grandfather- colon cancer Interim HPI Barrett was scheduled for colonoscopy in December- got the dates confused and showed up 1 month early. The provider attempted to perform a colonoscopy but there was stool in the rectum so it was aborted. Barrett c/o continued RUQ AND RLQ pain- the same, no change. Notes only eats one meal a day Pain is at its worse after having BM Daily BM w/o straining No longer take Omeprazole. Last colonoscopy was 11/2022 with findings of diverticulosis. No specimens collected. Sedation received for EGD 11/2023 in [facility]: Fentanyl 100 micrograms IV, Midazolam 5 mg IV, Diphenhydramine 50 mg IV, Benzocaine spray Current Outpatient Medications Medication Sig ZOLOFT 25 mg tablet Take 25 mg by mouth once daily. cyclobenzaprine (FLEXERIL) 10 mg tablet Take by mouth once daily. peg 3350-Electrolytes (GOLYTELY) 236-22.74-6.74 -5.86 gram suspension Take 4,000 mL by mouth one time only for 1 dose. Refer to printed prep instructions from your provider. No current facility-administered medications for this visit. 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 COLONOSCOPY FLX DX W/COLLJ SPEC WHEN PFRMD 04/03/2021 repeat in 1 year-due to poor bowel prep EGD 11/26/2022 EGD 12/08/2023 ESOPHAGOGASTRODUODENOSC OPY TRANSORAL DIAGNOSTIC 04/03/2018 EGD ESOPHAGOGASTRODUODENOSC OPY TRANSORAL DIAGNOSTIC 01/16/2021 ESOPHAGOGASTRODUODENOSC OPY TRANSORAL DIAGNOSTIC 04/03/2021 FOOT SURGERY HX Bilateral 1991 preair of broken feet FRACTURE SURGERY HAND SURGERY HX Left 2006 repair of fracture KNEE SURGERY HX Right 2016 LAPS SURG CHOLECYSTECTOMY W/CHOLANGIOGRAPHY 12/08/2017 PAST SURGICAL HISTORY OF 04/2007 fracture/Deviated septum TONSILLECTOMY AND ADENOIDECTOMY AGE 14/> 2011 T/A (over age 14 years) TONSILLECTOMY HX FAMILY HISTORY Problem Relation Age of Onset Diabetes Mother Hypertension Mother Cancer Mother lung and brain Hearing Loss Maternal Grandmother Diabetes Maternal Grandmother Heart Maternal Grandfather AR other (unknown) Father brain aneurysm? Social History Tobacco Use Smoking status: Never Smokeless tobacco: Never Vaping Use Vaping status: Never Used Substance Use Topics Alcohol use: No Drug use: No REVIEW OF SYMPTOMS: REVIEW OF SYSTEMS: General: The patient + fatigue, + weight loss, + weight gain, denies feeling hot, and feelings of cold. Eyes: The patient denies glaucoma, denies eye injury/surgery, denies glasses or contacts. Ear/Nose/Throat: The patient denies allergies, denies hayfever, denies ear infections, and denies bloody noses. Cardiovascular: The patient denies chest pain, denies heart disease, denies high blood pressure, denies high cholesterol, and denies poor circulation. Respiratory: The patient denies tuberculosis, denies pneumonia, denies frequent cough, denies shortness of breath, and denies coughing up blood. Gastrointestinal: The patient denies difficulty swallo (more content not included)... Normal [facility] BARRE[facility] ([id number]) 1975 M Date Time Provider Department 03/03/24 ASIA SALGADO [facility] During your visit today, we recorded the following information about you: Fidencio Brunson 03/03/2024 10:09 AM Signed 04-21-[address] Nathaly Marte [facility], provider went over all prep information with patient and gave direct number to call with any questions Fidencio Brunson Allergies As of Date: 03/03/2024 Noted Allergy Reaction CODEINE 01/02/2006 LATEX 07/02/2017 7 - Swelling Comments: AND rash NAPROXEN 11/22/2022 4 - Hives VICODIN (HYDROCODONE-ACETAMINOP HE*01/02/2006 Date Reviewed: 03/03/2024 Reviewed by: Asia Salgado APRN.TELEVISION CABINET FINISHER - Fully Assessed Reason for Visit: 04-21-2024 colon [facility] [Other] Prescriptions as of 04/28/2024 - diclofenac, EC, (VOLTAREN) 50 mg EC tablet Take 1 tablet by mouth two times a day. - ZOLOFT 25 mg tablet Take 25 mg by mouth once daily. - cyclobenzaprine (FLEXERIL) 10 mg tablet Take by mouth once daily. Meds Comments as of 01/08/2022: 01/08/22 No medication changes with the past 30 days. Katerina Britt, YANIRA Problem List As Of Date 03/03/2024 Noted Resolved Unspecified adjustment reaction [F43.20] 10/23/2011 Chronic cholecystitis due to cholelithiasis wit*12/02/2017 Obesity, Class III, BMI >= 40 [E66.01] 11/27/2022 BRBPR (bright red blood per rectum) [K62.5] 12/08/2023 Chronic RLQ pain [R10.31, G89.29] 12/08/2023 Chronic RUQ pain [R10.11, G89.29] 12/08/2023 Epigastric pain [R10.13] 12/08/2023 Gastroesophageal reflux disease without esophag*12/08/2023 Encounter Status:Closed by FIDENCIO BRUNSON on 04/28/24 Normal [facility] Elbow min 3 Viewson 03-02-20 24 Elbow min 3 Views Normal [facility] Emergency Department Summary on 03-02-2024 Emergency Department Summary Normal [facility] 03-01-2024 CNPN Telephone (GENSWS) BARRETT LOPEZ ([id number]) 1975 M Date Time Provider Department 03/01/24 GUERLINE ANDERSEN During your visit today, we recorded the following information about you: Vivian Sosa 03/01/2024 9:54 AM Signed Patient calling in requesting a colonoscopy, he had the upper GI done in November, however they were unable to do the lower GI due to him being impacted. Please review and advise patient. Vivian Sosa March 01, 2024 9:54 AM Martha Dozier MA 03/01/2024 11:47 AM Signed Please schedule pt for colon consult with Joy Salgado NP to update history and go over prep instructions. RAYSA Humphrey Laurie, MA 03/04/2024 10:04 AM Signed Appt 03/03/2024 completed. Martha Dozier MA Allergies As of Date: 03/01/2024 Noted Allergy Reaction CODEINE 01/02/2006 LATEX 07/02/2017 7 - Swelling Comments: AND rash NAPROXEN 11/22/2022 4 - Hives VICODIN (HYDROCODONE-ACETAMINOP HE*01/02/2006 Date Reviewed: 12/17/2023 Reviewed by: Asia Salgado APRN.TELEVISION CABINET FINISHER - Fully Assessed Reason for Visit: Orders [681] Appointment [186] Prescriptions as of 03/04/2024 - ZOLOFT 25 mg tablet Take 25 mg by mouth once daily. - cyclobenzaprine (FLEXERIL) 10 mg tablet Take by mouth once daily. Meds Comments as of 01/08/2022: 01/08/22 No medication changes with the past 30 days. Katerina Britt RN Problem List As Of Date 03/01/2024 Noted Resolved Unspecified adjustment reaction [F43.20] 10/23/2011 Chronic cholecystitis due to cholelithiasis wit*12/02/2017 Obesity, Class III, BMI >= 40 [E66.01] 11/27/2022 BRBPR (bright red blood per rectum) [K62.5] 12/08/2023 Chronic RLQ pain [R10.31, G89.29] 12/08/2023 Chronic RUQ pain [R10.11, G89.29] 12/08/2023 Epigastric pain [R10.13] 12/08/2023 Gastroesophageal reflux disease without esophag*12/08/2023 Encounter Status:Closed by MARTHA DOZIER on 03/04/24 Normal [facility] .Auto Diffon 02-06-2024 Basophil, Absolute 0.1 10 3/mcL Normal 0.0-0.2 [facility] Comment on above: Performed By: #### G FR, CBC, ADIFF, MDW, LIP, ANEU, CMP #### [address] [address] Basophils/100 WBC (Bld) 0.5 % Normal 0.0-2.5 [facility] Comment on above: Performed By: #### G FR, CBC, ADIFF, MDW, LIP, ANEU, CMP #### [address] [address] Eosinophil, Absolute 0.3 10 3/mcL Normal 0.0-0.7 [facility] Comment on above: Performed By: #### G FR, CBC, ADIFF, MDW, LIP, ANEU, CMP #### [address] [address] Eosinophils/100 WBC (Bld) 1.9 % Normal 0.0-7.0 [facility] Comment on above: Performed By: #### G FR, CBC, ADIFF, MDW, LIP, ANEU, CMP #### [address] [address] Lymphocyte, Absolute 3.9 10 3/mcL Normal 0.9-4.3 [facility] Comment on above: Performed By: #### G FR, CBC, ADIFF, MDW, LIP, ANEU, CMP #### [address] [address] Lymphocytes/100 WBC (Bld) 26.6 % Normal 20.0-40.0 [facility] Comment on above: Performed By: #### G FR, CBC, ADIFF, MDW, LIP, ANEU, CMP #### [address] [address] Monocyte, Absolute 0.7 10 3/mcL Normal 0.1-1.4 [facility] Comment on above: Performed By: #### G FR, CBC, ADIFF, MDW, LIP, ANEU, CMP #### [address] [place], [place] [address] Monocytes/100 WBC (Bld) 4.8 % Normal 2.0-13.0 [facility] Comment on above: Performed By: #### G FR, CBC, ADIFF, MDW, LIP, ANEU, CMP #### [address] [place], [place] [address] Neutrophils/100 WBC (Bld) 66.2 % Normal 50.0-75.0 [facility] Comment on above: Performed By: #### G FR, CBC, ADIFF, MDW, LIP, ANEU, CMP #### [address] [address] .GFRon 02-06-2024 GFR Non- 79 ml/min/1.73sqm Normal [facility] Comment on above: Result Comment: GFR Population mean for , Non- Americans Ages 20-29 = 116 mL/min/1.73 sq.m. Ages 30-39 = 107 mL/min/1.73 sq.m. Ages 40-49 = 99 mL/min/1.73 sq.m. Ages 50-59 = 93 mL/min/1.73 sq.m. Ages 60-69 = 85 mL/min/1.73 sq.m. Ages 70+ = 75 mL/min/1.73 sq.m. Chronic Kidney Disease: Less than 60 mL/min/1.73 square meters End Stage Renal Disease: Less than 15 mL/min/1.73 square meters Performed By: #### G FR, CBC, ADIFF, MDW, LIP, ANEU, CMP #### [address] [place], [place] [address] GFR 95 ml/min/1.73sqm Normal [facility] Comment on above: Result Comment: GFR Population mean for , Non- Americans Ages 20-29 = 116 mL/min/1.73 sq.m. Ages 30-39 = 107 mL/min/1.73 sq.m. Ages 40-49 = 99 mL/min/1.73 sq.m. Ages 50-59 = 93 mL/min/1.73 sq.m. Ages 60-69 = 85 mL/min/1.73 sq.m. Ages 70+ = 75 mL/min/1.73 sq.m. Chronic Kidney Disease: Less than 60 mL/min/1.73 square meters End Stage Renal Disease: Less than 15 mL/min/1.73 square meters Performed By: #### G FR, CBC, ADIFF, MDW, LIP, ANEU, CMP #### [address] [address] .MDWon 02-06-2024 Monocyte Distribution Width 18.18 Normal 0.00-20.00 [facility] Comment on above: Result Comment: For ED adult patients suspected of sepsis, MDW<=20.0 does not rule out sepsis or risk of sepsis Performed By: #### G FR, CBC, ADIFF, MDW, LIP, ANEU, CMP #### [place] [id number] .NEUABSon 02-06-2024 Neutrophil, Absolute 9.8 10 3/mcL High 2.3-8.1 [facility] Comment on above: Performed By: #### G FR, CBC, ADIFF, MDW, LIP, ANEU, CMP #### [address] [id number] CBCon 02-06-2024 Erythrocyte distribution width (RBC) [Ratio] 14.7 % Normal 11.5-15.5 [facility] Comment on above: Performed By: #### G FR, CBC, ADIFF, MDW, LIP, ANEU, CMP #### [address] [address] Hematocrit (Bld) [Volume fraction] 44.6 % Normal 40.0-52.0 [facility] Comment on above: Performed By: #### G FR, CBC, ADIFF, MDW, LIP, ANEU, CMP #### [place] [address] Hgb 14.7 G/dL Normal 13.0-17.5 [facility] Comment on above: Performed By: #### G FR, CBC, ADIFF, MDW, LIP, ANEU, CMP #### [address] [address] MCH (RBC) [Entitic mass] 27.2 pg Normal 27.0-33.0 [facility] Comment on above: Performed By: #### G FR, CBC, ADIFF, MDW, LIP, ANEU, CMP #### [address] [address] MCHC 33.1 G/dL Normal 32.0-36.0 [facility] Comment on above: Performed By: #### G FR, CBC, ADIFF, MDW, LIP, ANEU, CMP #### [address] [address] MCV (RBC) [Entitic vol] 82.4 fL Normal 81.0-100.0 [facility] Comment on above: Performed By: #### G FR, CBC, ADIFF, MDW, LIP, ANEU, CMP #### [address] [address] Platelet 385 10 3/mcL Normal 150-450 [facility] Comment on above: Performed By: #### G FR, CBC, ADIFF, MDW, LIP, ANEU, CMP #### [address] [address] Platelet mean volume (Bld) [Entitic vol] 7.3 fL Normal 6.4-10.5 [facility] Comment on above: Performed By: #### G FR, CBC, ADIFF, MDW, LIP, ANEU, CMP #### [address] [address] RBC 5.41 10 6/mcL Normal 4.50-6.00 [facility] Comment on above: Performed By: #### G FR, CBC, ADIFF, MDW, LIP, ANEU, CMP #### [address] [address] WBC 14.8 10 3/mcL High 4.5-10.8 [facility] Comment on above: Performed By: #### G FR, CBC, ADIFF, MDW, LIP, ANEU, CMP #### [place] [address] CMPon 02-06-2024 Albumin Level 3.7 G/dL Normal 3.5-5.0 [facility] Comment on above: Performed By: #### G FR, CBC, ADIFF, MDW, LIP, ANEU, CMP #### [place] [address] Albumin/Globulin [Mass ratio] 1.1 {ratio} Normal 1.1-2.5 [facility] Comment on above: Performed By: #### G FR, CBC, ADIFF, MDW, LIP, ANEU, CMP #### [place] [address] ALP [Catalytic activity/Vol] 140 U/L High 40-135 [facility] Comment on above: Performed By: #### G FR, CBC, ADIFF, MDW, LIP, ANEU, CMP #### [place] [address] ALT [Catalytic activity/Vol] 54 U/L Normal 16-63 [facility] Comment on above: Performed By: #### G FR, CBC, ADIFF, MDW, LIP, ANEU, CMP #### [place] [address] AST [Catalytic activity/Vol] 17 U/L Normal 10-40 [facility] Comment on above: Performed By: #### G FR, CBC, ADIFF, MDW, LIP, ANEU, CMP #### [place] [address] Bili Total 0.3 mg/dL Normal 0.2-1.0 [facility] Comment on above: Result Comment: Use of this assay is not recommended for patients undergoing treatment with eltrombopag due to the potential for falsely elevated results. Performed By: #### G FR, CBC, ADIFF, MDW, LIP, ANEU, CMP #### [place] [address] BUN/Creatinine Ratio 17 ratio Normal 7-27 [facility] Comment on above: Performed By: #### G FR, CBC, LORE, W, LIP, ANEU, CMP #### [address] [address] Calcium [Mass/Vol] 8.9 mg/dL Normal 8.4-10.2 [facility] Comment on above: Performed By: #### G FR, CBC, LORE, W, LIP, ANEU, CMP #### [address] [address] Chloride [Moles/Vol] 103 mmol/L Normal 98-107 [facility] Comment on above: Performed By: #### G FR, CBC, LORE, MDW, LIP, ANEU, CMP #### [address] [address] CO2 [Moles/Vol] 29 mmol/L Normal 22-29 [facility] Comment on above: Performed By: #### G FR, CBC, LORE, MDW, LIP, ANEU, CMP #### [address] [address] Creatinine [Mass/Vol] 1.02 mg/dL Normal 0.70-1.30 [facility] Comment on above: Result Comment: Test ing performed on Siemens Dimension EXL analyzer using a modified kinetic Araceli technique. Performed By: #### G FR, CBC, LORE, W, LIP, ANEU, CMP #### [address] [address] Electrolyte Balance 9.0 mEq/L Normal 4.0-15.0 [facility] Comment on above: Performed By: #### G FR, CBC, LORE, W, LIP, ANEU, CMP #### [address] [address] Globulin 3.5 G/dL Normal [facility] Comment on above: Performed By: #### G FR, CBC, LORE, W, LIP, ANEU, CMP #### [address] [address] Glucose [Mass/Vol] 95 mg/dL Normal 70-105 [facility] Comment on above: Performed By: #### G FR, CBC, ADIFF, MDW, LIP, ANEU, CMP #### [address] [address] Potassium [Moles/Vol] 4.0 mmol/L Normal 3.5-5.1 [facility] Comment on above: Performed By: #### G FR, CBC, ADIFF, MDW, LIP, ANEU, CMP #### [address] [address] Sodium [Moles/Vol] 141 mmol/L Normal 136-145 [facility] Comment on above: Performed By: #### G FR, CBC, ADIFF, MDW, LIP, ANEU, CMP #### [address] [address] Total Protein 7.2 G/dL Normal 6.4-8.2 [facility] Comment on above: Performed By: #### G FR, CBC, ADIFF, MDW, LIP, ANEU, CMP #### [address] [address] Urea nitrogen [Mass/Vol] 17 mg/dL Normal 7-18 [facility] Comment on above: Performed By: #### G FR, CBC, ADIFF, MDW, LIP, ANEU, CMP #### [address] [address] [address] ABD/PELVIS W/ IV CONTRAST ONLYon 02-06-2024 CT ABD/PELVIS W/ IV CONTRAST ONLY ORIGINAL EXAMINATION: CT OF THE ABDOMEN AND PELVIS WITH UEEQJBMW17/15/2024 8:[address] ABDOMEN/PELVIS WITH CONTRAST TECHNIQUE: CT of the abdomen and pelvis was performed with the administration of intravenous contrast. Multiplanar reformatted images are provided for review. Automated exposure control, iterative reconstruction, and/or weight based adjustment of the mA/kV was utilized to reduce the radiation dose to as low as reasonably achievable. COMPARISON: None available HISTORY: ORDERING SYSTEM PROVIDED HISTORY: Reason for Exam: right flank/groin pain today. thinks that he may have passed a kidney stone at home while voiding earlier. pain continues at 10 of 10 pain FINDINGS: The size, density, and morphology of the liver, spleen, adrenals, kidneys, pancreas and unopacified loops of bowel are unremarkable. Bilateral nonobstructive renal calcifications. The opacified aorta demonstrates normal size and morphology without aneurysmal dilation or dissection. There are no enlarged lymph nodes by pathologic size criteria. Scattered diverticula noted throughout the colon. Prior partial colectomy at the sigmoid colon with reanastomosis. There is no free fluid within the pelvis. Calcified stone is not identified within the bladder. The bladder and pelvic organs have an unremarkable CT appearance. Bilateral fat containing inguinal hernias. The osseous structures are without gross lytic or sclerotic lesion. The lung bases are clear. IMPRESSION: 1. Bilateral nonobstructive nephrolithiasis. 2. Diverticulosis without diverticulitis. 3. Postsurgical changes. Interpreted by: Vic Bear MD Preliminary Report By: Vic Bear MD Electronically signed By Vic Bear MD Dictated Date: 02/06/2024 8:27:37 PM Prelim Date: 02/06/2024 8:44:09 PM Sign Date: 02/06/2024 8:44:09 PM Ordering Provider: ELI Bryan [facility] LABORATORYOrdered By: SYSTEM SYSTEM on 02-06-2024 Albumin BCP dye [Mass/Vol] 3.7 G/dL Normal 3.5 - 5.0 G/dL AO ADM SS Albumin/Globulin [Mass ratio] 1.1 {ratio} Normal 1.1 - 2.5 ratio AO ADM SS ALP [Catalytic activity/Vol] 140 U/L High 40 - 135 U/L AO ADM SS ALT With P-5'-P [Catalytic activity/Vol] 54 U/L Normal 16 - 63 U/L AO ADM SS AST With P-5'-P [Catalytic activity/Vol] 17 U/L Normal 10 - 40 U/L AO ADM SS Basophils (Bld) [#/Vol] 0.1 103/mcL Normal 0.0 - 0.2 10^3/mcL AO Workflow SS Basophils/100 WBC (Bld) 0.5 % Normal 0.0 - 2.5 % AO Workflow SS Bilirubin [Mass/Vol] 0.3 mg/dL Normal 0.2 - 1 .0 mg/dL AO ADM SS Comment on above: Interpretive Data: U se of this assay is not recommended for patients undergoing treatment with eltrombopag due to the potential for falsely elevated results. Calcium [Mass/Vol] 8.9 mg/dL Normal 8.4 - 10. 2 mg/dL AO ADM SS Chloride [Moles/Vol] 103 mmol/L Normal 98 - 10 7 mmol/L AO ADM SS CO2 [Moles/Vol] 29 mmol/L Normal 22 - 29 mmol/L AO ADM SS Creatinine [Mass/Vol] 1.02 mg/dL Normal 0.70 - 1.30 mg/dL AO ADM SS Comment on above: Interpretive Data: T esting performed on Siemens Dimension EXL analyzer using a modified kinetic Araceli technique. Electrolyte Balance 9.0 mEq/L Normal 4.0 - 15 .0 mEq/L AO ADM SS Eosinophil, Absolute 0.3 103/mcL Normal 0.0 - 0 .7 10^3/mcL AO Workflow SS Eosinophils/100 WBC (Bld) 1.9 % Normal 0.0 - 7.0 % AO Workflow SS Erythrocyte distribution width (RBC) [Ratio] 14.7 % Normal 11.5 - 15.5 % AO Workflow SS GFR/1.73 sq M.predicted among blacks MDRD (S/P/Bld) [Vol rate/Area] 95 ml/min/1.73sqm Invalid Interpretation Code AO Chemistry S Comment on above: Interpretive Data: GFR Population mean for , Non- Americans Ages 20-29 = 116 mL/min/1.73 sq.m. Ages 30-39 = 107 mL/min/1.73 sq.m. Ages 40-49 = 99 mL/min/1.73 sq.m. Ages 50-59 = 93 mL/min/1.73 sq.m. Ages 60-69 = 85 mL/min/1.73 sq.m. Ages 70+ = 75 mL/min/1.73 sq.m. Chronic Kidney Disease: Less than 60 mL/min/1.73 square meters End Stage Renal Disease: Less than 15 mL/min/1.73 square meters GFR/1.73 sq M.predicted among non-blacks MDRD (S/P/Bld) [Vol rate/Area] 79 ml/min/1.73sqm Invalid Interpretation Code AO Chemistry S Comment on above: Interpretive Data: GFR Population mean for , Non- Americans Ages 20-29 = 116 mL/min/1.73 sq.m. Ages 30-39 = 107 mL/min/1.73 sq.m. Ages 40-49 = 99 mL/min/1.73 sq.m. Ages 50-59 = 93 mL/min/1.73 sq.m. Ages 60-69 = 85 mL/min/1.73 sq.m. Ages 70+ = 75 mL/min/1.73 sq.m. Chronic Kidney Disease: Less than 60 mL/min/1.73 square meters End Stage Renal Disease: Less than 15 mL/min/1.73 square meters Globulin 3.5 G/dL Invalid Interpretation Code AO ADM SS Glucose [Mass/Vol] 95 mg/dL Normal 70 - 105 mg/dL AO ADM SS Hematocrit (Bld) [Volume fraction] 44.6 % Normal 40.0 - 52.0 % AO Workflow SS Hemoglobin (Bld) [Mass/Vol] 14.7 G/dL Normal 13.0 - 17.5 G/dL AO Workflow SS Lipase [Catalytic activity/Vol] 27 U/L Normal 16 - 77 U/L AO ADM SS Lymphocytes (Bld) [#/Vol] 3.9 103/mcL Normal 0.9 - 4.3 10^3/mcL AO Workflow SS Lymphocytes/100 WBC (Bld) 26.6 % Normal 20.0 - 40.0 % AO Workflow SS MCH (RBC) [Entitic mass] 27.2 pg Normal 27.0 - 33.0 pg AO Workflow SS MCHC 33.1 G/dL Normal 32.0 - 36.0 G/dL AO Workflow SS MCV (RBC) [Entitic vol] 82.4 fL Normal 81.0 - 100.0 fL AO Workflow SS Monocyte distribution width Auto (Bld) [Entitic vol] 18.18 1 Normal 0.00 - 20.00 AO Workflow SS Comment on above: Result Comment: For ED adult patients suspected of sepsis, MDW<=20.0 does not rule out sepsis or risk of sepsis Monocytes (Bld) [#/Vol] 0.7 103/mcL Normal 0.1 - 1.4 10^3/mcL AO Workflow SS Monocytes/100 WBC (Bld) 4.8 % Normal 2.0 - 13.0 % AO Workflow SS Neutrophils (Bld) [#/Vol] 9.8 103/mcL High 2.3 - 8.1 10^3/mcL AO Workflow SS Neutrophils/100 WBC (Bld) 66.2 % Normal 50.0 - 75.0 % AO Workflow SS Platelet mean volume (Bld) [Entitic vol] 7.3 fL Normal 6.4 - 10.5 fL AO Workflow SS Platelets (Bld) [#/Vol] 385 103/mcL Normal 150 - 450 10^3/mcL AO Workflow SS Potassium [Moles/Vol] 4.0 mmol/L Normal 3.5 - 5.1 mmol/L AO ADM SS Protein [Mass/Vol] 7.2 G/dL Normal 6.4 - 8.2 G/dL AO ADM SS RBC (Bld) [#/Vol] 5.41 106/mcL Normal 4.50 - 6.0 0 10^6/mcL AO Workflow SS Sodium [Moles/Vol] 141 mmol/L Normal 136 - 145 mmol/L AO ADM SS Urea nitrogen [Mass/Vol] 17 mg/dL Normal 7 - 18 mg/dL AO ADM SS Urea nitrogen/Creatinine [Mass ratio] 17 ratio Normal 7 - 27 ratio AO ADM SS WBC (Bld) [#/Vol] 14.8 103/mcL High 4.5 - 10.8 10^3/mcL AO Workflow SS LABORATORYOrdered By: Koko luna on 02-06-2024 Appearance (U) Clear (02/06/24 7:49 PM) Normal Clear AO Auto Urine SS Bilirubin Ql (U) Negative (02/06/24 7:49 PM) Normal Negative AO Auto Urine SS Color (U) Yellow (02/06/24 7:49 PM) Normal AO Auto Urine SS Glucose Test strip (U) [Mass/Vol] Negative Normal Negative AO Auto Urine SS Hemoglobin Auto test strip (U) [Mass/Vol] Negative (02/06/24 7:49 PM) Normal Negative AO Auto Urine SS Ketones Ql (U) Negative Normal Negative AO Auto Ur ine SS UA Leuk Est Negative (02/06/24 7:49 PM) Normal Negative AO Auto Urine SS UA Nitrite Negative (02/06/24 7:49 PM) Normal Negative AO Auto Urine SS UA pH 5.5 (02/06/24 7:49 PM) Normal 5.0 - 8.0 AO Auto Urine SS UA Protein Negative Normal Negative AO Auto Urine SS UA Spec Grav >=1.030 *ABN* (02/06/24 7:49 PM) Invalid Interpretation Code 1.015-1.025 AO Auto Urine SS UA Specimen Type Clean Catch (02/06/24 7:49 PM) Normal AO Auto Urine SS UA Urobilinogen 0.2 E.U./dL Normal 0.2-1.0 AO Auto Urine SS LIPon 02-06-2024 Lipase Level 27 U/L Normal 16-77 [facility] Comment on above: Performed By: #### G FR, CBC, ADIFF, MDW, LIP, ANEU, CMP #### [place] [address] UAon 02-06-2024 Color (U) Yellow Normal [facility] Comment on above: Performed By: #### U A #### [place] [address] Glucose (U) [Mass/Vol] Negative Normal Negative [facility] Comment on above: Performed By: #### U A #### [place] [address] Ketones Ql (U) Negative Normal Negative [facility] Comment on above: Performed By: #### U A #### [place] [address] UA Appear Clear Normal Clear [facility] Comment on above: Performed By: #### U A #### [place] [address] UA Blood Negative Normal Negative [facility] Comment on above: Performed By: #### U A #### [place] [id number] UA Leuk Est Negative Normal Negative [facility] Comment on above: Performed By: #### U A #### [address] [address] UA Nitrite Negative Normal Negative [facility] Comment on above: Performed By: #### U A #### [address] [address] UA pH 5.5 Normal 5.0 - 8.0 [facility] Comment on above: Performed By: #### U A #### [address] [address] UA Protein Negative Normal Negative [facility] Comment on above: Performed By: #### U A #### [place] [id number] UA Spec Grav >=1.030 Abnormal 1.015-1.025 [facility] Comment on above: Performed By: #### U A #### [place] [id number] UA Specimen Type Clean Catch Normal [facility] Comment on above: Performed By: #### U A #### [address] [address] UA Urobilinogen 0.2 E.U./dL Normal 0.2-1.0 [facility] Comment on above: Performed By: #### U A #### [place] [id number] Urobilinogen (U) [Mass/Vol] Negative Normal Negative [facility] Comment on above: Performed By: #### U A #### [address] [address] CNOVon 12-17-2023 CNOV Office Visit (GENSWS ) BARRETT LOPEZ ([id number]) 1975 M Date Time Provider Department 12/17/23 2:00 PM ASIA SALGADO During your visit today, we recorded the following information about you: Pulse Blood pressure Weight 98/minute 117/78 140.2 kg Asia Salgado APRN.[employer] 12/17/2023 1:33 PM Addendum Get dibucaine cream [id number] or on amazon. Apply before bowel movements or with pain Perform sitz bath 3-4 x a day and after bowel movements Keep bowels soft with Miralax daily 4. Continue with Prilosec in the morning and pepcid before bed 5. Work on lifestyle factors that increase GERD INSTRUCTIONS FOR AN ANAL FISSURE You have an anal fissure. An anal fissure is a small tear at at the edge of the anus. It is usually caused by straining with bowel movements, but sometime it occurs during periods of loose stools or diarrhea. 70% of the time, anal fissures will heal will regulation of the stools and conservative measures. Regulation of the bowel habits is most important - The fissure will not heal if there is continued straining. I usually recommend fiber for initial regularion. Add Miralax - now available over the counter, if fiber alone isn't helping the constipation. Healing of the fissure will not occur until bowel regulation is achieved I recommend that you avoid spicy foods and perform sitz baths three to four times per day and after bovel movements. A sitz bath is drawing luke warm water in the bathtub and soaking. The purpose is to relax the sphincter and rinse the anal area. DO NOT ADD EPSOM SALTS OR OTHER INGREDIENTS THIS CAN INCREASE THE BURNING. I recommend a topical pain ointment, usually dibucaine or proctocream With each bowel movement, I recommend placing the topcial pain ointment prior to the bowel movements and use baby wipes and perform a sitz bath after each bowel movement. Dibucaine can be used between times as needed for anal pain. If the above measures are not helping within one week, call the office, and we may prescribe Diltiazem ointment. ( this is different from Dibucaine). If prescribed, it should be applied to the anal area twice a day. If you note any difficulties or concerns, you should contact our office immediately. GASTRITIS/GERD I discussed with you the findings of your upper endoscopy. Your upper endoscopy demonstrated signs of peptic ulcer disease or irritation. This can be seen as a range of issues from actual ulcers in the stomach or duodenum (first part of the small bowel) or irritation ranging from redness to more significant irritation with erosions of the stomach or duodenum. These conditions are usually caused from a combination of too much acid production or too little protective mucus production in the stomach. Factors that increase acid production include smoking and stress. If you smoke, stopping smoking will often cure these issues without needing other medications. Factors that decrease the stomach's production of protective mucus include alcohol consumption, smoking, aspirin and other anti-inflammatory use. Over the counter medications including antiacids and acid reducing medications including H2 blockers (Zantac and the like) and proton pump inhibitors (prilosec, prevacid and the like) neutralize or prevent acid production. Avoiding smoking, alcohol and antiinflammatory medications are important in the successful treatment of peptic diseases. Your esophagus can look normal at upper endoscopy and you still have GERD. Multiple factors effect GERD symptoms - acid production, obesity, smoking, food consumption, and time of meals Other factors that contribute to GERD and esophagitis are being overweight, eating large meals before laying down and certain foods. Weight loss will help improve many GERD complaints. Remaining upright after eating large meals and having a small supper will also help symptoms. Avoiding food that contribute to reflux - chocolate, caffeine, cheddar cheese may also help. New or worsening symptoms such are epigastric pain, burning, difficulty swallowing or food sticking should be relayed to your physician. Feeling full early after eating, or black, tarry, foul smelling stools are also worrisome. If you have any difficulties or concerns, you should contact our office immediately. Asia Salgado APRN.ISA 12/17/2023 1:49 PM Signed FOLLOW UP VISIT - ENDOSCOPY Barrett Lopez 1975 [id number] REFERRING PHYSICIAN: No referring provider defined for this encounter. Barrett Lopez is a patient I am following for chronic rRUQ AND RLQ pain, BRBPR, reflux. Dr. Cunha performed upper AND lower endoscopy on 12/08/23. EGD Impression: - Z-line variable, 40 cm from the incisors. Biopsied. - Normal stomach. Biopsied. - Normal examined duodenum. Biopsied. COLONOSCOPY Impression: - The pr (more content not included)... Normal [facility] [id number] 12-08-2023 [id number] HNO ID: [id number] Author: DASIA VEE RN Service: ? Author Type: Registered Nurse Type: [id number] Filed: 12/08/2023 11:13 Note Text: The patient received a copy of Colonoscopy and EGD discharge instructions that contain information for how to contact the physician who performed the procedure and when to seek medical care.Dasia Vee RN [facility] Colonoscopyon 12-08-2023 Colonoscopy [facility] Gastrointestinal Endoscopy Patient Name: Barrett Lopez Procedure Date: 12/08/2023 10:10 AM Date of : 1975 Admit Type: Outpatient Age: 48 Gender: Male Note Status: Finalized Procedure: Colonoscopy Indications: Screening for colorectal malignant neoplasm Providers: Elinor Cunha MD Patient Profile: This is a 48 year old male. Refer to note in patient chart for documentation of history and physical. Last Colonoscopy: November 2022. Referring Physician: Asia Salgado (Referring MD) Medicines: Fentanyl 100 micrograms IV, Midazolam 5 mg IV, Diphenhydramine 50 mg IV Complications: No immediate complications. Estimated blood loss: None. Requesting Provider: Procedure: Pre-Anesthesia Assessment: - Prior to the procedure, a History and Physical was performed, and patient medications and allergies were reviewed. The patient's tolerance of previous anesthesia was also reviewed. The risks and benefits of the procedure and the sedation options and risks were discussed with the patient. All questions were answered, and informed consent was obtained. Prior Anticoagulants: The patient has taken no anticoagulant or antiplatelet agents. ASA Grade Assessment: III - A patient with severe systemic disease. After reviewing the risks and benefits, the patient was deemed in satisfactory condition to undergo the procedure. After I obtained informed consent, the scope was passed under direct vision. Throughout the procedure, the patient's blood pressure, pulse, and oxygen saturations were monitored continuously. The Colonoscope was introduced through the anus with the intention of advancing to the cecum. The scope was advanced to the anus before the procedure was aborted. Medications were given. The colonoscopy was aborted due to inadequate bowel prep. The patient tolerated the procedure well. The quality of the bowel preparation was unsatisfactory. No anatomical landmarks were photographed. The colonoscopy was performed without difficulty. Moderate Sedation: The administration of moderate sedation was initiated at 10:17 AM. Moderate (conscious) sedation was personally administered by the endoscopist. The following parameters were monitored: oxygen saturation, heart rate, blood pressure, respiratory rate, EKG, adequacy of pulmonary ventilation, and response to care. Total physician intraservice time was 12 minutes. Findings: An anal fissure was found on perianal exam. Copious quantities of semi-solid solid stool was found in the rectum, precluding visualization. Impression: - The procedure was aborted due to inadequate bowel prep. - Preparation of the colon was unsatisfactory. - Anal fissure found on perianal exam. - Stool in the rectum. - No specimens collected. Recommendation: - Patient has a contact number available for emergencies. The signs and symptoms of potential delayed complications were discussed with the patient. Return to normal activities tomorrow. Written discharge instructions were provided to the patient. - Resume previous diet. - Continue present medications. - Repeat colonoscopy at appointment to be scheduled because the bowel preparation was poor. - Return to nurse practitioner at appointment to be scheduled. Procedure Code(s): --- Professional --- 58486, 53, Colonoscopy, flexible; diagnostic, including collection of specimen(s) by brushing or washing, when performed (separate procedure) G0500, Moderate sedation services provided by the same physician or other qualified health animal caretaker supervisor performing a gastrointestinal endoscopic service that sedation supports, requiring the presence of an independent trained observer to assist in the monitoring of the patient's level of consciousness and physiological status; initial 15 minutes of intra-service time; patient age 5 years or older (additional time may be reported with 66180, as appropriate) Diagnosis Code(s): --- Professional --- Z12.11, Encounter for screening for malignant neoplasm of colon K60.2, Anal fissure, unspecified CPT copyright 2020 [employer]. All rights reserved. The codes documented in this report are preliminary and upon protective officer review may be revised to meet current compliance requirements. Attending Participation: I personally performed the entire procedure. Scope In: 10:28:32 AM Scope Out: 10:29:20 AM MD Elinor Matt MD 12/08/2023 10:38:09 AM This report has been signed electronically by Elinor Cunha MD Number of Addenda: 0 Note Initiated On: 12/08/2023 10:10 AM Estimated Blood Loss: Estimated blood loss: none. Normal [facility] EGD Study observation Narrat iveon 12-08-2023 [facility] Gastrointestinal Endoscopy Patient Name: Barrett Lopez Procedure Date: 12/08/2023 10:09 AM Date of : 1975 Admit Type: Outpatient Age: 48 Gender: Male Note Status: Finalized Procedure: Upper GI endoscopy Indications: Gastro-esophageal reflux disease Providers: Elinor Cunha MD Patient Profile: This is a 48 year old male. Refer to note in patient chart for documentation of history and physical. Referring Physician: Asia Salgado (Referring MD) Medicines: Fentanyl 100 micrograms IV, Midazolam 5 mg IV, Diphenhydramine 50 mg IV, Benzocaine spray Complications: No immediate complications. Estimated blood loss: Minimal. Requesting Provider: Procedure: Pre-Anesthesia Assessment: - Prior to the procedure, a History and Physical was performed, and patient medications and allergies were reviewed. The patient's tolerance of previous anesthesia was also reviewed. The risks and benefits of the procedure and the sedation options and risks were discussed with the patient. All questions were answered, and informed consent was obtained. Prior Anticoagulants: The patient has taken no anticoagulant or antiplatelet agents. ASA Grade Assessment: III - A patient with severe systemic disease. After reviewing the risks and benefits, the patient was deemed in satisfactory condition to undergo the procedure. After obtaining informed consent, the endoscope was passed under direct vision. Throughout the procedure, the patient's blood pressure, pulse, and oxygen saturations were monitored continuously. The Endoscope was introduced through the mouth, and advanced to the second part of duodenum. The upper GI endoscopy was accomplished without difficulty. The patient tolerated the procedure well. Moderate Sedation: The administration of moderate sedation was initiated at 10:17 AM. Moderate (conscious) sedation was personally administered by the endoscopist. The following parameters were monitored: oxygen saturation, heart rate, blood pressure, respiratory rate, EKG, adequacy of pulmonary ventilation, and response to care. Total physician intraservice time was 12 minutes. Findings: The Z-line was variable and was found 40 cm from the incisors. Biopsies were taken with a cold forceps for histology. The entire examined stomach was normal. Biopsies were taken with a cold forceps for Helicobacter pylori testing. The examined duodenum was normal. Biopsies for histology were taken with a cold forceps for evaluation of celiac disease. Impression: - Z-line variable, 40 cm from the incisors. Biopsied. - Normal stomach. Biopsied. - Normal examined duodenum. Biopsied. Recommendation: - Patient has a contact number available for emergencies. The signs and symptoms of potential delayed complications were discussed with the patient. Return to normal activities tomorrow. Written discharge instructions were provided to the patient. - Resume previous diet. - Continue present medications. - Await pathology results. - Repeat upper endoscopy PRN for surveillance. - Return to nurse practitioner at appointment to be scheduled. Procedure Code(s): --- Professional --- 79683, Esophagogastroduodenosc opy, flexible, transoral; with biopsy, single or multiple G0500, Moderate sedation services provided by the same physician or other qualified health animal caretaker supervisor performing a gastrointestinal endoscopic service that sedation supports, requiring the presence of an independent trained observer to assist in the monitoring of the patient's level of consciousness and physiological status; initial 15 minutes of intra-service time; patient age 5 ye (more content not included)... [facility] Flexible sigmoidoscopy study on 12-08-2023 [facility] Gastrointestinal Endoscopy Patient Name: Barrett Lopez Procedure Date: 12/08/2023 10:10 AM Date of : 1975 Admit Type: Outpatient Age: 48 Gender: Male Note Status: Finalized Procedure: Colonoscopy Indications: Screening for colorectal malignant neoplasm Providers: Elinor Cunha MD Patient Profile: This is a 48 year old male. Refer to note in patient chart for documentation of history and physical. Last Colonoscopy: November 2022. Referring Physician: Asia Salgado (Referring MD) Medicines: Fentanyl 100 micrograms IV, Midazolam 5 mg IV, Diphenhydramine 50 mg IV Complications: No immediate complications. Estimated blood loss: None. Requesting Provider: Procedure: Pre-Anesthesia Assessment: - Prior to the procedure, a History and Physical was performed, and patient medications and allergies were reviewed. The patient's tolerance of previous anesthesia was also reviewed. The risks and benefits of the procedure and the sedation options and risks were discussed with the patient. All questions were answered, and informed consent was obtained. Prior Anticoagulants: The patient has taken no anticoagulant or antiplatelet agents. ASA Grade Assessment: III - A patient with severe systemic disease. After reviewing the risks and benefits, the patient was deemed in satisfactory condition to undergo the procedure. After I obtained informed consent, the scope was passed under direct vision. Throughout the procedure, the patient's blood pressure, pulse, and oxygen saturations were monitored continuously. The Colonoscope was introduced through the anus with the intention of advancing to the cecum. The scope was advanced to the anus before the procedure was aborted. Medications were given. The colonoscopy was aborted due to inadequate bowel prep. The patient tolerated the procedure well. The quality of the bowel preparation was unsatisfactory. No anatomical landmarks were photographed. The colonoscopy was performed without difficulty. Moderate Sedation: The administration of moderate sedation was initiated at 10:17 AM. Moderate (conscious) sedation was personally administered by the endoscopist. The following parameters were monitored: oxygen saturation, heart rate, blood pressure, respiratory rate, EKG, adequacy of pulmonary ventilation, and response to care. Total physician intraservice time was 12 minutes. Findings: An anal fissure was found on perianal exam. Copious quantities of semi-solid solid stool was found in the rectum, precluding visualization. Impression: - The procedure was aborted due to inadequate bowel prep. - Preparation of the colon was unsatisfactory. - Anal fissure found on perianal exam. - Stool in the rectum. - No specimens collected. Recommendation: - Patient has a contact number available for emergencies. The signs and symptoms of potential delayed complications were discussed with the patient. Return to normal activities tomorrow. Written discharge instructions were provided to the patient. - Resume previous diet. - Continue present medications. - Repeat colonoscopy at appointment to be scheduled because the bowel preparation was poor. - Return to nurse practitioner at appointment to be scheduled. Procedure Code(s): --- Professional --- 22353, 53, Colonoscopy, flexible; diagnostic, including collection of specimen(s) by brushing or washing, when performed (separate procedure) G0500, Moderate sedation services provided by the same physician or other qualified health animal caretaker supervisor performing a gastrointestinal endoscopic (more content not included)... [facility] HISTORY PHYSICALon HISTORY PHYSICAL HNO ID: [id number] Author: ELINOR CUNHA MD Service: General Surgery Author Type: Physician Type: H&P Filed: 12/08/2023 09:14 Note Text: HISTORY AND PHYSICAL Barrett Lopez : 1975 REFERRING PHYSICIAN: No referring provider defined for this encounter. CHIEF COMPLAINT: Patient presents with: GERD I saw Barrett in June 2023: HPI: The patient is a 48 year old male with a complaint of intermittent rectal bleeding with pain and right upper and lower quadrant pain x3 weeks. Barrett states that after wiping he will notice blood on the toilet paper that takes multiple attempts to dry but no blood speckled in the stool. S/O states their is blood also in the toilet bowl. This happens intermittently and is not triggered by constipation which is a struggle. Barrett states he will go 2-3 days without a BM but does not use any OTC relief. Pt refers occasional reflux that is relieved by drinking strawberry milk. PLAN: Discussed anal fissure care with patient as provided in the AVS. Also instructed patient to add miralax to help with constipation and ease BM pain with fissure. Instructed to apply OTC dibucaine ointment to the area for pain relief. Pt also provided a script for prilosec 40mg daily to help with RUQ pain. Interim HPI: Barrett is a 48 year old male who presents again for continued symptoms as described above. He is c/o of incisional bulge that cause pain from cholecystectomy site and RLQ pain. Barrett notes abdominal pain. The pain occurs in the following locations: RUQ and RLQ . 12/31. Constant sharp/stabbing pain for the last 6 months. Refers putting a 2L pop bottle of cold water helps the pain. Epigastric pain is the worst when laying down at night. Abrrett notes diarrhea x 1 week- not watery Barrett denies constipation. Barrett denies a change in bowel habits. Barrett denies melena. Barrett notes bright red blood per rectum on toilet paper. Barrett denies hemorrhoids. Barrett notes heartburn. +prilosec 40mg QHS with no relief +vomiting after drinking coffee on empty stomach. Barrett denies dysphagia. Barrett denies a history of ulcers/ peptic ulcer disease. +cholecystectomy Notes family history of colon issues. Maternal grandfather- colon cancer Barrett has undergone prior endoscopy. Last upper and lower was 11/27/[address] Andersen in [facility]. Sedation received: Midazolam 5 mg IV, Fentanyl 100 micrograms IV, Diphenhydramine 50 mg IV EGD Impression - Normal examined jejunum. - Duodenitis. Biopsied. - Gastritis. Biopsied. - Mildly severe reflux esophagitis with no bleeding. Biopsied. COLONOSCOPY Impression: - The examined portion of the ileum was normal. - The entire examined colon is normal on direct and retroflexion views. - Diverticulosis in the sigmoid colon. - No specimens collected Pathology FINAL DIAGNOSIS A. Duodenum, biopsy: - Duodenal mucosa with preserved villous architecture and a mild increase in intraepithelial lymphocytes; see comment. B. Stomach, antrum, biopsy: - Gastric antral mucosa with reactive gastropathy. - No evidence of Helicobacter pylori organisms on ESTEVAN stain. C. Esophagus, distal, biopsy: - Squamocolumnar junctional mucosa with mild chronic inflammation. - Negative for granulomas and dysplasia. Diagnosis Comment A: The finding of patchy intraepithelial lymphocytosis is not specific, and may be present in many conditions such as infection, drug reaction, celiac disease, non-gluten food sensitivity, autoimmune diseases, bacterial overgrowth, morbid obesity, immunodeficiency disorders, inflammatory bowel disease, and change secondary to local inflammation. Clinical correlation is necessary for a definitive diagnosis. CURRENT MEDICATIONS Current Outpatient Medications Medication Sig famotidine (PEPCID) 40 mg tablet Take 1 tablet by mouth at bedtime as needed. peg 3350-Electrolytes (GOLYTELY) 236-22.74-6.74 -5.86 gram suspension Take 4,000 mL by mouth one time only for 1 dose. Refer to printed prep instructions from your provider. omeprazole (PRILOSEC) 40 mg capsule Take 1 capsule by mouth once daily. furosemide (LASIX) 20 mg tablet Take 1 tablet by mouth once daily. No current facility-administered medications for this visit. 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 Normal [facility] No Panel Informationon 12-07 Radiology Study observation (narrative) [facility] SURGICAL PATHOLOGYon 024 CASE REPORT Normal [facility] Comment on above: Order Comment: Speci jazlyn Type: TISSUE SPECIMENOrdering Facility: [facility] Address: [address] [place] [address] Result Comment: Surg ica Pathology Report Case: [id number] Authorizing Provider: Elinor Cunha MD Collected: 12/08/2023 10:17 AM Ordering Location: Ambulatory Surgery Received: 12/08/2023 01:35 PM Pathologist: Cass Campos MD Specimens: A) - Small Bowel, Duodenum, Biopsy, This order replaces the incorrect order placed for Specimen A B) - Stomach, Antrum, Biopsy, Antral bx for H/H C) - Esophagus, Distal, Biopsy Performed By: #### S ####[facility] [id number] [address] OF [facility] FINAL DIAGNOSIS Normal [facility] Comment on above: Order Comment: Bri hobson Type: TISSUE SPECIMENOrdering Facility: [facility] Address: [address] [place] [address] Result Comment: A. S mall Bowel, Duodenum, Biopsy -Superficial fragments of duodenal mucosa with mild reactive changes and normal villous architecture, B. Stomach, antrum, biopsy -Gastric antral mucosa with no significant histopathologic changes, negative for Helicobacter pylori type organisms C. Esophagus, distal, biopsy -Squamous mucosa with focal reactive changes Performed By: #### S ####[facility] [id number] [address] OF [facility] FINAL PERFORMING LAB Normal [facility] Comment on above: Order Comment: Bri hobson Type: TISSUE SPECIMENOrdering Facility: [facility] Address: [address] [place] [address] Result Comment: Diag nostic interpretation performed at [facility], [address] [place] [address] CLIA# [id number] Strategic Marketing Leader: Juancarlos Srivastava M.D. Performed By: #### S ####[facility] [id number] [place] [address] [place] GROSS DESCRIPTION Normal [facility] Comment on above: Order Comment: Speci men Type: TISSUE SPECIMENOrdering Facility: [facility] Address: [address] [place] [address] Result Comment: A. S mall Bowel, Duodenum, Biopsy Received in formalin is one piece of bronson, soft tissue measuring 0.5 x 0.3 x 0.2 cm. Totally submitted in one cassette. B. Stomach, Antrum, Biopsy Received in formalin are two pieces of bronson-brown, soft tissue aggregating to 0.4 x 0.3 x 0.1 cm. Totally submitted in one cassette. C. Esophagus, Distal, Biopsy Received in formalin are multiple pieces of bronson-white, soft tissue aggregating to 1.5 x 0.3 x 0.1 cm. Totally submitted in one cassette. Gross examination performed at [facility], [address] [place] [address] December 11, 2023 11:39 AM Performed By: #### S ####[facility] [id number] [place] [address] [place] Upper GI endoscopy 024 Upper GI endoscopy [facility] Gastrointestinal Endoscopy Patient Name: Barrett Lopez Procedure Date: 12/08/2023 10:09 AM Date of : 1975 Admit Type: Outpatient Age: 48 Gender: Male Note Status: Finalized Procedure: Upper GI endoscopy Indications: Gastro-esophageal reflux disease Providers: Elinor Cunha MD Patient Profile: This is a 48 year old male. Refer to note in patient chart for documentation of history and physical. Referring Physician: Asia Salgado (Referring ) Medicines: Fentanyl 100 micrograms IV, Midazolam 5 mg IV, Diphenhydramine 50 mg IV, Benzocaine spray Complications: No immediate complications. Estimated blood loss: Minimal. Requesting Provider: Procedure: Pre-Anesthesia Assessment: - Prior to the procedure, a History and Physical was performed, and patient medications and allergies were reviewed. The patient's tolerance of previous anesthesia was also reviewed. The risks and benefits of the procedure and the sedation options and risks were discussed with the patient. All questions were answered, and informed consent was obtained. Prior Anticoagulants: The patient has taken no anticoagulant or antiplatelet agents. ASA Grade Assessment: III - A patient with severe systemic disease. After reviewing the risks and benefits, the patient was deemed in satisfactory condition to undergo the procedure. After obtaining informed consent, the endoscope was passed under direct vision. Throughout the procedure, the patient's blood pressure, pulse, and oxygen saturations were monitored continuously. The Endoscope was introduced through the mouth, and advanced to the second part of duodenum. The upper GI endoscopy was accomplished without difficulty. The patient tolerated the procedure well. Moderate Sedation: The administration of moderate sedation was initiated at 10:17 AM. Moderate (conscious) sedation was personally administered by the endoscopist. The following parameters were monitored: oxygen saturation, heart rate, blood pressure, respiratory rate, EKG, adequacy of pulmonary ventilation, and response to care. Total physician intraservice time was 12 minutes. Findings: The Z-line was variable and was found 40 cm from the incisors. Biopsies were taken with a cold forceps for histology. The entire examined stomach was normal. Biopsies were taken with a cold forceps for Helicobacter pylori testing. The examined duodenum was normal. Biopsies for histology were taken with a cold forceps for evaluation of celiac disease. Impression: - Z-line variable, 40 cm from the incisors. Biopsied. - Normal stomach. Biopsied. - Normal examined duodenum. Biopsied. Recommendation: - Patient has a contact number available for emergencies. The signs and symptoms of potential delayed complications were discussed with the patient. Return to normal activities tomorrow. Written discharge instructions were provided to the patient. - Resume previous diet. - Continue present medications. - Await pathology results. - Repeat upper endoscopy PRN for surveillance. - Return to nurse practitioner at appointment to be scheduled. Procedure Code(s): --- Professional --- 45197, Esophagogastroduodenosc opy, flexible, transoral; with biopsy, single or multiple G0500, Moderate sedation services provided by the same physician or other qualified health animal caretaker supervisor performing a gastrointestinal endoscopic service that sedation supports, requiring the presence of an independent trained observer to assist in the monitoring of the patient's level of consciousness and physiological status; initial 15 minutes of intra-service time; patient age 5 years or older (additional time may be reported with 34154, as appropriate) Diagnosis Code(s): --- Professional --- K22.89, Other specified disease of esophagus K21.9, Gastro-esophageal reflux disease without esophagitis CPT copyright 2020 [employer]. All rights reserved. The codes documented in this report are preliminary and upon protective officer review may be revised to meet current compliance requirements. Attending Participation: I personally performed the entire procedure. Scope In: 10:20:38 AM Scope Out: 10:24:36 AM MD Elinor Matt MD 12/08/2023 10:34:59 AM This report has been signed electronically by Elinor Cunha MD Number of Addenda: 0 Note Initiated On: 12/08/2023 10:09 AM Estimated Blood Loss: Estimated blood loss was minimal. Normal [facility] CNOVon 12-05-2023 CNOV Office Visit (GENSWS ) BARRETT LOPEZ ([id number]) 1975 Date Time Provider Department 12/05/23 11:00 AM ASIA SALGADO GENSWS During your visit today, we recorded the following information about you: Asia Salgado APRN.CNP 12/05/2023 11:54 AM Signed HISTORY AND PHYSICAL Barrett Lopez : 1975 REFERRING PHYSICIAN: No referring provider defined for this encounter. CHIEF COMPLAINT: Patient presents with: GERD I saw Barrett in June 2023: HPI: The patient is a 48 year old male with a complaint of intermittent rectal bleeding with pain and right upper and lower quadrant pain x3 weeks. Barrett states that after wiping he will notice blood on the toilet paper that takes multiple attempts to dry but no blood speckled in the stool. S/O states their is blood also in the toilet bowl. This happens intermittently and is not triggered by constipation which is a struggle. Barrett states he will go 2-3 days without a BM but does not use any OTC relief. Pt refers occasional reflux that is relieved by drinking strawberry milk. PLAN: Discussed anal fissure care with patient as provided in the AVS. Also instructed patient to add miralax to help with constipation and ease BM pain with fissure. Instructed to apply OTC dibucaine ointment to the area for pain relief. Pt also provided a script for prilosec 40mg daily to help with RUQ pain. Interim HPI: Barrett is a 48 year old male who presents again for continued symptoms as described above. He is c/o of incisional bulge that cause pain from cholecystectomy site and RLQ pain. Barrett notes abdominal pain. The pain occurs in the following locations: RUQ and RLQ . 12/31. Constant sharp/stabbing pain for the last 6 months. Refers putting a 2L pop bottle of cold water helps the pain. Epigastric pain is the worst when laying down at night. Barrett notes diarrhea x 1 week- not watery Barrett denies constipation. Barrett denies a change in bowel habits. Barrett denies melena. Barrett notes bright red blood per rectum on toilet paper. Barrett denies hemorrhoids. Barrett notes heartburn. +prilosec 40mg QHS with no relief +vomiting after drinking coffee on empty stomach. Barrett denies dysphagia. Barrett denies a history of ulcers/ peptic ulcer disease. +cholecystectomy Notes family history of colon issues. Maternal grandfather- colon cancer Barrett has undergone prior endoscopy. Last upper and lower was 11/27/[address] Anders[facility] in [facility]. Sedation received: Midazolam 5 mg IV, Fentanyl 100 micrograms IV, Diphenhydramine 50 mg IV EGD Impression - Normal examined jejunum. - Duodenitis. Biopsied. - Gastritis. Biopsied. - Mildly severe reflux esophagitis with no bleeding. Biopsied. COLONOSCOPY Impression: - The examined portion of the ileum was normal. - The entire examined colon is normal on direct and retroflexion views. - Diverticulosis in the sigmoid colon. - No specimens collected Pathology FINAL DIAGNOSIS A. Duodenum, biopsy: - Duodenal mucosa with preserved villous architecture and a mild increase in intraepithelial lymphocytes; see comment. B. Stomach, antrum, biopsy: - Gastric antral mucosa with reactive gastropathy. - No evidence of Helicobacter pylori organisms on ESTEVAN stain. C. Esophagus, distal, biopsy: - Squamocolumnar junctional mucosa with mild chronic inflammation. - Negative for granulomas and dysplasia. Diagnosis Comment A: The finding of patchy intraepithelial lymphocytosis is not specific, and may be present in many conditions such as infection, drug reaction, celiac disease, non-gluten food sensitivity, autoimmune diseases, bacterial overgrowth, morbid obesity, immunodeficiency disorders, inflammatory bowel disease, and change secondary to local inflammation. Clinical correlation is necessary for a definitive diagnosis. Current Outpatient Medications Medication Sig famotidine (PEPCID) 40 mg tablet Take 1 tablet by mouth at bedtime as needed. peg 3350-Electrolytes (GOLYTELY) 236-22.74-6.74 -5.86 gram suspension Take 4,000 mL by mouth one time only for 1 dose. Refer to printed prep instructions from your provider. omeprazole (PRILOSEC) 40 mg capsule Take 1 capsule by mouth once daily. furosemide (LASIX) 20 mg tablet Take 1 tablet by mouth once daily. No current facility-administered medications for this visit. 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 Normal [facility] .Auto Diffon 11-17-2023 Basophil, Absolute 0.1 10 3/mcL Normal 0.0-0.2 [facility] ([place]) Comment on above: Performed By: #### C BC, PRO, BMP, GFR, TROPHLIA Leon, ADIFF, ANEU #### [address] [place], [place] [address] Basophils/100 WBC (Bld) 0.7 % Normal 0.0-2.5 [facility] ([place]) Comment on above: Performed By: #### C BC, PRO, BMP, GFR, TROPHCarolyn, W, ADIFF, ANEU #### [address] [place], [place] [address] Eosinophil, Absolute 0.2 10 3/mcL Normal 0.0-0.4 [facility] ([place]) Comment on above: Performed By: #### C BC, PRO, BMP, GFR, TROPHS, MDW, ADIFF, ANEU #### [address] [address] Eosinophils/100 WBC (Bld) 2.2 % Normal 0.0-7.0 [facility] ([place]) Comment on above: Performed By: #### C BC, PRO, BMP, GFR, TROPHS, MDW, ADIFF, ANEU #### [address] [address] Lymphocyte, Absolute 3.2 10 3/mcL Normal 0.8-3.9 [facility] ([place]) Comment on above: Performed By: #### C BC, PRO, BMP, GFR, TROPHS, MDW, ADIFF, ANEU #### [address] [address] Lymphocytes/100 WBC (Bld) 31.0 % Normal 10.0-50.0 [facility] ([place]) Comment on above: Performed By: #### C BC, PRO, BMP, GFR, TROPHS, MDW, ADIFF, ANEU #### [address] [address] Monocyte, Absolute 0.6 10 3/mcL Normal 0.2-1.0 [facility] ([place]) Comment on above: Performed By: #### C BC, PRO, BMP, GFR, TROPHS, MDW, ADIFF, ANEU #### [address] [address] Monocytes/100 WBC (Bld) 6.3 % Normal 1.7-13.0 [facility] ([place]) Comment on above: Performed By: #### C BC, PRO, BMP, GFR, TROPHS, MDW, ADIFF, ANEU #### [address] [address] Neutrophils/100 WBC (Bld) 59.8 % Normal 37.0-80.0 [facility] ([place]) Comment on above: Performed By: #### C BC, PRO, BMP, GFR, TROPHS, MDW, ADIFF, ANEU #### [address] [address] .GFRon 11-17-2023 GFR 92 ml/min/1.73sqm Normal [facility] ([place]) Comment on above: Result Comment: GFR Population mean for , Non- Americans Ages 20-29 = 116 mL/min/1.73 sq.m. Ages 30-39 = 107 mL/min/1.73 sq.m. Ages 40-49 = 99 mL/min/1.73 sq.m. Ages 50-59 = 93 mL/min/1.73 sq.m. Ages 60-69 = 85 mL/min/1.73 sq.m. Ages 70+ = 75 mL/min/1.73 sq.m. Chronic Kidney Disease: Less than 60 mL/min/1.73 square meters End Stage Renal Disease: Less than 15 mL/min/1.73 square meters Performed By: #### C BC, PRO, BMP, GFR, TROPHS, MDW, ADIFF, ANEU #### [address] [address] GFR Non- 76 ml/min/1.73sqm Normal [facility] ([place]) Comment on above: Result Comment: GFR Population mean for , Non- Americans Ages 20-29 = 116 mL/min/1.73 sq.m. Ages 30-39 = 107 mL/min/1.73 sq.m. Ages 40-49 = 99 mL/min/1.73 sq.m. Ages 50-59 = 93 mL/min/1.73 sq.m. Ages 60-69 = 85 mL/min/1.73 sq.m. Ages 70+ = 75 mL/min/1.73 sq.m. Chronic Kidney Disease: Less than 60 mL/min/1.73 square meters End Stage Renal Disease: Less than 15 mL/min/1.73 square meters Performed By: #### C BC, PRO, BMP, GFR, TROPHS, MDW, ADIFF, ANEU #### [address] [address] .NEUABSon 11-17-2023 Neutrophil, Absolute 6.1 10 3/mcL Normal 2.9-6.2 [facility] ([place]) Comment on above: Performed By: #### C BC, PRO, BMP, GFR, TROPHLIA Leon, LORE, ANEU #### [address] [address] A1Con 11-17-2023 Glucose [Mass/Vol] 117 mg/dL Normal [facility] ([place]) Comment on above: Result Comment: Damaris mated Average Glucose calculated by equation ((28.7xA1C)-46.7) Estimated average glucose (eAG) is a calculated value from Hemoglobin A1C and is corporate representative of the average blood glucose level in the last 2-3 month period. Normal range: less than 114 mg/dL Performed By: #### C BC, PRO, BMP, GFR, TROPHSLIA, LORE, ANEU #### [address] [address] HbA1c (Bld) [Mass fraction] 5.7 % Normal 4.3-6.4 [facility] ([place]) Comment on above: Performed By: #### C BC, PRO, BMP, GFR, LIA MCGEE, LORE, ANEU #### [address] [address] BMPon 11-17-2023 BUN/Creatinine Ratio 13 ratio Normal 7-27 [facility] ([place]) Comment on above: Performed By: #### C BC, PRO, BMP, GFR, LIA MCGEE, LORE, ANEU #### [address] [address] Calcium [Mass/Vol] 9.2 mg/dL Normal 8.4-10.2 [facility] ([place]) Comment on above: Performed By: #### C BC, PRO, BMP, GFR, TROPHLIA Leon, LORE, ANEU #### [address] [address] Chloride [Moles/Vol] 103 mmol/L Normal 98-107 [facility] ([place]) Comment on above: Performed By: #### C BC, PRO, BMP, GFR, TROPHS, MDW, ADIFF, ANEU #### [address] [address] CO2 [Moles/Vol] 27 mmol/L Normal 22-29 [facility] ([place]) Comment on above: Performed By: #### C BC, PRO, BMP, GFR, TROPHS, MDW, ADIFF, ANEU #### [address] [address] Creatinine [Mass/Vol] 1.05 mg/dL Normal 0.70-1.30 [facility] ([place]) Comment on above: Performed By: #### C BC, PRO, BMP, GFR, TROPHS, MDW, ADIFF, ANEU #### [address] [address] Electrolyte Balance 7.0 mEq/L Normal 4.0-15.0 [facility] ([place]) Comment on above: Performed By: #### C BC, PRO, BMP, GFR, TROPHS, MDW, ADIFF, ANEU #### [address] [address] Glucose [Mass/Vol] 99 mg/dL Normal 70-105 [facility] ([place]) Comment on above: Performed By: #### C BC, PRO, BMP, GFR, TROPHS, MDW, ADIFF, ANEU #### [address] [address] Potassium [Moles/Vol] 4.4 mmol/L Normal 3.5-5.1 [facility] ([place]) Comment on above: Performed By: #### C BC, PRO, BMP, GFR, TROPHS, MDW, ADIFF, ANEU #### [address] [address] Sodium [Moles/Vol] 137 mmol/L Normal 136-145 [facility] ([place]) Comment on above: Performed By: #### C BC, PRO, BMP, GFR, TROPHS, MDW, ADIFF, ANEU #### [address] [address] Urea nitrogen [Mass/Vol] 14 mg/dL Normal 7-18 [facility] ([place]) Comment on above: Performed By: #### C BC, PRO, BMP, GFR, TROPHS, MDW, ADIFF, ANEU #### [address] [address] CBCon 11-17-2023 Erythrocyte distribution width (RBC) [Ratio] 14.4 % Normal 11.5-14.5 [facility] ([place]) Comment on above: Performed By: #### C BC, PRO, BMP, GFR, TROPHS, MDW, ADIFF, ANEU #### [address] [address] Hematocrit (Bld) [Volume fraction] 41.9 % Low 42.0-52.0 [facility] ([place] Comment on above: Performed By: #### C BC, PRO, BMP, GFR, TROPHS, MDW, ADIFF, ANEU #### [place] [id number] Hgb 13.9 G/dL Low 14.0-18.0 [facility] ([place] Comment on above: Performed By: #### C BC, PRO, BMP, GFR, TROPHS, MDW, ADIFF, ANEU #### [address] [address] MCH (RBC) [Entitic mass] 27.3 pg Normal 27.0-31.2 [facility] ([place] Comment on above: Performed By: #### C BC, PRO, BMP, GFR, TROPHS, MDW, ADIFF, ANEU #### [address] [address] MCHC 33.2 G/dL Normal 31.8-35.4 [facility] ([place] Comment on above: Performed By: #### C BC, PRO, BMP, GFR, TROPHS, MDW, ADIFF, ANEU #### [address] [address] MCV (RBC) [Entitic vol] 82.1 fL Normal 80.0-94.0 [facility] ([place] Comment on above: Performed By: #### C BC, PRO, BMP, GFR, TROPHS, MDW, ADIFF, ANEU #### [address] [address] Platelet 359 10 3/mcL Normal 130-400 [facility] ([place] Comment on above: Performed By: #### C BC, PRO, BMP, GFR, TROPHS, MDW, ADIFF, ANEU #### [address] [address] Platelet mean volume (Bld) [Entitic vol] 7.3 fL Low 7.4-10.4 [facility] ([place] Comment on above: Performed By: #### C BC, PRO, BMP, GFR, TROPHS, MDW, ADIFF, ANEU #### [address] [address] RBC 5.09 10 6/mcL Normal 4.04-6.13 [facility] ([place] Comment on above: Performed By: #### C BC, PRO, BMP, GFR, TROPHS, MDW, ADIFF, ANEU #### [address] [address] WBC 10.2 10 3/mcL Normal 4.6-10.8 [facility] ([place] Comment on above: Performed By: #### C BC, PRO, BMP, GFR, TROPHS, MDW, ADIFF, ANEU #### [address] [address] FT3on 11-17-2023 Free T3 [Mass/Vol] 3.46 pg/mL Normal 2.30-4.00 [facility] ([place]) Comment on above: Performed By: #### C BC, PRO, BMP, GFR, TROPHS, MDW, ADIFF, ANEU #### [address] [address] FT4on 11-17-2023 Free T4 [Mass/Vol] 1.03 ng/dL Normal 0.76-1.46 [facility] ([place]) Comment on above: Performed By: #### C BC, PRO, BMP, GFR, TROPHS, MDW, ADIFF, SHABBIR #### [place] [address] LABORATORYOrdered By: SYSTEM SYSTEM on 11-17-2023 Basophil, Absolute 0.1 103/mcL Normal 0.0 - 0.2 10^3/mcL AO Workflow SS Basophils/100 WBC (Bld) 0.7 % Normal 0.0 - 2.5 % AO Workflow SS Eosinophil, Absolute 0.2 103/mcL Normal 0.0 - 0 .4 10^3/mcL AO Workflow SS Eosinophils/100 WBC (Bld) 2.2 % Normal 0.0 - 7.0 % AO Workflow SS Erythrocyte distribution width (RBC) [Ratio] 14.4 % Normal 11.5 - 14.5 % AO Workflow SS Hematocrit (Bld) [Volume fraction] 41.9 % Low 42.0 - 52.0 % AO Workflow SS Hemoglobin (Bld) [Mass/Vol] 13.9 G/dL Low 14.0 - 18.0 G/dL AO Workflow SS Lymphocyte, Absolute 3.2 103/mcL Normal 0.8 - 3 .9 10^3/mcL AO Workflow SS Lymphocytes/100 WBC (Bld) 31.0 % Normal 10.0 - 50.0 % AO Workflow SS MCH (RBC) [Entitic mass] 27.3 pg Normal 27.0 - 31.2 pg AO Workflow SS MCHC 33.2 G/dL Normal 31.8 - 35.4 G/dL AO Workflow SS MCV (RBC) [Entitic vol] 82.1 fL Normal 80.0 - 94.0 fL AO Workflow SS Monocyte, Absolute 0.6 103/mcL Normal 0.2 - 1.0 10^3/mcL AO Workflow SS Monocytes/100 WBC (Bld) 6.3 % Normal 1.7 - 13.0 % AO Workflow SS Neutrophil, Absolute 6.1 103/mcL Normal 2.9 - 6 .2 10^3/mcL AO Workflow SS Neutrophils/100 WBC (Bld) 59.8 % Normal 37.0 - 80.0 % AO Workflow SS Platelet mean volume (Bld) [Entitic vol] 7.3 fL Low 7.4 - 10.4 fL AO Workflow SS Platelets (Bld) [#/Vol] 359 103/mcL Normal 130 - 400 10^3/mcL AO Workflow SS RBC (Bld) [#/Vol] 5.09 106/mcL Normal 4.04 - 6.1 3 10^6/mcL AO Workflow SS WBC (Bld) [#/Vol] 10.2 103/mcL Normal 4.6 - 10.8 10^3/mcL AO Workflow SS Calcium [Mass/Vol] 9.2 mg/dL Normal 8.4 - 10. 2 mg/dL AO ADM SS Chloride [Moles/Vol] 103 mmol/L Normal 98 - 10 7 mmol/L AO ADM SS CO2 [Moles/Vol] 27 mmol/L Normal 22 - 29 mmol/L AO ADM SS Creatinine [Mass/Vol] 1.05 mg/dL Normal 0.70 - 1.30 mg/dL AO ADM SS Electrolyte Balance 7.0 mEq/L Normal 4.0 - 15 .0 mEq/L AO ADM SS Free T3 [Mass/Vol] 3.46 pg/mL Normal 2.30 - 4. 00 pg/mL AO ADM SS Free T4 [Mass/Vol] 1.03 ng/dL Normal 0.76 - 1. 46 ng/dL AO ADM SS GFR/1.73 sq M.predicted among blacks MDRD (S/P/Bld) [Vol rate/Area] 92 ml/min/1.73sqm Invalid Interpretation Code AO Chemistry S Comment on above: Interpretive Data: GFR Population mean for , Non- Americans Ages 20-29 = 116 mL/min/1.73 sq.m. Ages 30-39 = 107 mL/min/1.73 sq.m. Ages 40-49 = 99 mL/min/1.73 sq.m. Ages 50-59 = 93 mL/min/1.73 sq.m. Ages 60-69 = 85 mL/min/1.73 sq.m. Ages 70+ = 75 mL/min/1.73 sq.m. Chronic Kidney Disease: Less than 60 mL/min/1.73 square meters End Stage Renal Disease: Less than 15 mL/min/1.73 square meters GFR/1.73 sq M.predicted among non-blacks MDRD (S/P/Bld) [Vol rate/Area] 76 ml/min/1.73sqm Invalid Interpretation Code AO Chemistry S Comment on above: Interpretive Data: GFR Population mean for , Non- Americans Ages 20-29 = 116 mL/min/1.73 sq.m. Ages 30-39 = 107 mL/min/1.73 sq.m. Ages 40-49 = 99 mL/min/1.73 sq.m. Ages 50-59 = 93 mL/min/1.73 sq.m. Ages 60-69 = 85 mL/min/1.73 sq.m. Ages 70+ = 75 mL/min/1.73 sq.m. Chronic Kidney Disease: Less than 60 mL/min/1.73 square meters End Stage Renal Disease: Less than 15 mL/min/1.73 square meters Glucose [Mass/Vol] 99 mg/dL Normal 70 - 105 mg/dL AO ADM SS Glucose [Mass/Vol] 117 mg/dL Invalid Interpretation Code AO Chemistry S Comment on above: Interpretive Data: E stimated average glucose (eAG) is a calculated value from Hemoglobin A1C and is corporate representative of the average blood glucose level in the last 2-3 month period. Normal range: less than 114 mg/dL HbA1c (Bld) [Mass fraction] 5.7 % Normal 4.3 - 6.4 % AO ADM SS Natriuretic peptide.B prohormone N-Terminal [Mass/Vol] 42 pg/mL Normal 0 - 125 pg/mL AO ADM SS Comment on above: Interpretive Data: N T-proBNP results of less than 300 pg/mL effectively rules out acute congestive heart failure with 99% negative predictive value. Potassium [Moles/Vol] 4.4 mmol/L Normal 3.5 - 5.1 mmol/L AO ADM SS Sodium [Moles/Vol] 137 mmol/L Normal 136 - 145 mmol/L AO ADM SS TSH Qn 4.05 m[IU]/L High 0.36 - 3.74 mcIU/mL AO ADM SS Urea nitrogen [Mass/Vol] 14 mg/dL Normal 7 - 18 mg/dL AO ADM SS Urea nitrogen/Creatinine [Mass ratio] 13 ratio Normal 7 - 27 ratio AO ADM SS PBNPon 11-17-2023 Natriuretic peptide B (Bld) [Mass/Vol] 42 pg/mL Normal 0-125 [facility] ([place]) Comment on above: Result Comment: NT-p roBNP results of less than 300 pg/mL effectively rules out acute congestive heart failure with 99% negative predictive value. Performed By: #### C BC, PRO, BMP, GFR, TROPHS, MDW, ADIFF, ANEU #### [address] [address] TSHon 11-17-2023 TSH Qn 4.05 m[IU]/L High 0.36-3.74 [facility] ([place]) Comment on above: Performed By: #### C BC, PRO, BMP, GFR, TROPHS, MDW, ADIFF, ANEU #### [address] [address] Emergency Department Summary on 10-20-2023 Emergency Department Summary Normal [facility] Lumbar Spine 2 or 3 Viewson 10-20-2023 Lumbar Spine 2 or 3 Views Normal [facility] .Auto Diffon 08-25-2023 Basophil, Absolute 0.1 10 3/mcL Normal 0.0-0.2 [facility] ([place]) Comment on above: Performed By: #### C BC, PRO, BMP, GFR, TROPHS, MDW, ADIFF, ANEU #### [address] [address] Basophils/100 WBC (Bld) 0.4 % Normal 0.0-2.5 [facility] ([place]) Comment on above: Performed By: #### C BC, PRO, BMP, GFR, TROPHS, MDW, ADIFF, ANEU #### [address] [address] Eosinophil, Absolute 0.3 10 3/mcL Normal 0.0-0.4 [facility] ([place]) Comment on above: Performed By: #### C BC, PRO, BMP, GFR, TROPHS, MDW, ADIFF, ANEU #### [address] [address] Eosinophils/100 WBC (Bld) 1.9 % Normal 0.0-7.0 [facility] ([place] Comment on above: Performed By: #### C BC, PRO, BMP, GFR, TROPHS, MDW, ADIFF, ANEU #### [address] [address] Lymphocyte, Absolute 2.7 10 3/mcL Normal 0.8-3.9 [facility] ([place]) Comment on above: Performed By: #### C BC, PRO, BMP, GFR, TROPHS, MDW, ADIFF, ANEU #### [address] [address] Lymphocytes/100 WBC (Bld) 16.4 % Normal 10.0-50.0 [facility] ([place] Comment on above: Performed By: #### C BC, PRO, BMP, GFR, TROPHS, MDW, ADIFF, ANEU #### [address] [address] Monocyte, Absolute 0.7 10 3/mcL Normal 0.2-1.0 [facility] ([place] Comment on above: Performed By: #### C BC, PRO, BMP, GFR, TROPHS, MDW, ADIFF, ANEU #### [address] [address] Monocytes/100 WBC (Bld) 4.4 % Normal 1.7-13.0 [facility] ([place] Comment on above: Performed By: #### C BC, PRO, BMP, GFR, TROPHS, MDW, ADIFF, ANEU #### [address] [address] Neutrophils/100 WBC (Bld) 76.9 % Normal 37.0-80.0 [facility] ([place] Comment on above: Performed By: #### C BC, PRO, BMP, GFR, TROPHS, MDW, ADIFF, ANEU #### [address] [address] .GFRon 08-25-2023 GFR 99 ml/min/1.73sqm Normal [facility] ([place]) Comment on above: Result Comment: GFR Population mean for , Non- Americans Ages 20-29 = 116 mL/min/1.73 sq.m. Ages 30-39 = 107 mL/min/1.73 sq.m. Ages 40-49 = 99 mL/min/1.73 sq.m. Ages 50-59 = 93 mL/min/1.73 sq.m. Ages 60-69 = 85 mL/min/1.73 sq.m. Ages 70+ = 75 mL/min/1.73 sq.m. Chronic Kidney Disease: Less than 60 mL/min/1.73 square meters End Stage Renal Disease: Less than 15 mL/min/1.73 square meters Performed By: #### C BC, PRO, BMP, GFR, TROPHS, MDW, ADIFF, ANEU #### [address] [address] GFR Non- 81 ml/min/1.73sqm Normal [facility] ([place]) Comment on above: Result Comment: GFR Population mean for , Non- Americans Ages 20-29 = 116 mL/min/1.73 sq.m. Ages 30-39 = 107 mL/min/1.73 sq.m. Ages 40-49 = 99 mL/min/1.73 sq.m. Ages 50-59 = 93 mL/min/1.73 sq.m. Ages 60-69 = 85 mL/min/1.73 sq.m. Ages 70+ = 75 mL/min/1.73 sq.m. Chronic Kidney Disease: Less than 60 mL/min/1.73 square meters End Stage Renal Disease: Less than 15 mL/min/1.73 square meters Performed By: #### C BC, PRO, BMP, GFR, TROPHS, MDW, ADIFF, ANEU #### [address] [address] .MDWon 08-25-2023 Monocyte Distribution Width 16.54 Normal 0.00-20.00 [facility] ([place]) Comment on above: Result Comment: For ED adult patients suspected of sepsis, MDW<=20.0 does not rule out sepsis or risk of sepsis Performed By: #### C BC, PRO, BMP, GFR, TROPHS, MDW, ADIFF, ANEU #### [address] [address] .NEUABSon 08-25-2023 Neutrophil, Absolute 12.6 10 3/mcL High 2.9-6.2 [facility] ([place]) Comment on above: Performed By: #### C BC, PRO, BMP, GFR, TROPHS, MDW, ADIFF, ANEU #### [address] [address] BMPon 08-25-2023 BUN/Creatinine Ratio 17 ratio Normal 7-27 [facility] ([place]) Comment on above: Performed By: #### C BC, PRO, BMP, GFR, TROPHS, W, ADIFF, ANEU #### [address] [address] Calcium [Mass/Vol] 8.9 mg/dL Normal 8.4-10.2 [facility] ([place]) Comment on above: Performed By: #### C BC, PRO, BMP, GFR, CARLAS, W, ADIFF, ANEU #### [address] [address] Chloride [Moles/Vol] 101 mmol/L Normal 98-107 [facility] ([place]) Comment on above: Performed By: #### C BC, PRO, BMP, GFR, TROPHS, W, ADIFF, ANEU #### [address] [address] CO2 [Moles/Vol] 30 mmol/L High 22-29 [facility] ([place] Comment on above: Performed By: #### C BC, PRO, BMP, GFR, TROPHS, MDW, ADIFF, ANEU #### [address] [address] Creatinine [Mass/Vol] 0.99 mg/dL Normal 0.70-1.30 [facility] ([place]) Comment on above: Performed By: #### C BC, PRO, BMP, GFR, TROPHS, MDW, ADIFF, ANEU #### [address] [address] Electrolyte Balance 8.0 mEq/L Normal 4.0-15.0 [facility] ([place]) Comment on above: Performed By: #### C BC, PRO, BMP, GFR, TROPHS, MDW, ADIFF, ANEU #### [address] [address] Glucose [Mass/Vol] 103 mg/dL Normal 70-105 [facility] ([place]) Comment on above: Performed By: #### C BC, PRO, BMP, GFR, TROPHS, W, ADIFF, ANEU #### [address] [address] Potassium [Moles/Vol] 4.3 mmol/L Normal 3.5-5.1 [facility] ([place]) Comment on above: Performed By: #### C BC, PRO, BMP, GFR, TROPHS, MDW, ADIFF, ANEU #### [address] [address] Sodium [Moles/Vol] 139 mmol/L Normal 136-145 [facility] ([place]) Comment on above: Performed By: #### C BC, PRO, BMP, GFR, TROPHS, MDW, ADIFF, ANEU #### [address] [address] Urea nitrogen [Mass/Vol] 17 mg/dL Normal 7-18 [facility] ([place]) Comment on above: Performed By: #### C BC, PRO, BMP, GFR, TROPHS, W, ADIFF, ANEU #### [address] [address] CBCon 08-25-2023 Erythrocyte distribution width (RBC) [Ratio] 14.5 % Normal 11.5-14.5 [facility] ([place] Comment on above: Performed By: #### C BC, PRO, BMP, GFR, TROPHS, W, ADIFF, ANEU #### [address] [address] Hematocrit (Bld) [Volume fraction] 43.1 % Normal 42.0-52.0 [facility] ([place] Comment on above: Performed By: #### C BC, PRO, BMP, GFR, TROPHS, MDW, ADIFF, ANEU #### [address] [address] Hgb 14.5 G/dL Normal 14.0-18.0 [facility] ([place] Comment on above: Performed By: #### C BC, PRO, BMP, GFR, TROPHS, MDW, ADIFF, ANEU #### [address] [address] MCH (RBC) [Entitic mass] 27.3 pg Normal 27.0-31.2 [facility] ([place] Comment on above: Performed By: #### C BC, PRO, BMP, GFR, TROPHS, MDW, ADIFF, ANEU #### [address] [address] MCHC 33.6 G/dL Normal 31.8-35.4 [facility] ([place] Comment on above: Performed By: #### C BC, PRO, BMP, GFR, TROPHS, MDW, ADIFF, ANEU #### [address] [address] MCV (RBC) [Entitic vol] 81.0 fL Normal 80.0-94.0 [facility] ([place] Comment on above: Performed By: #### C BC, PRO, BMP, GFR, TROPHS, MDW, ADIFF, ANEU #### [address] [address] Platelet 390 10 3/mcL Normal 130-400 [facility] ([place] Comment on above: Performed By: #### C BC, PRO, BMP, GFR, TROPHS, MDW, ADIFF, ANEU #### [address] [address] Platelet mean volume (Bld) [Entitic vol] 7.2 fL Low 7.4-10.4 [facility] ([place] Comment on above: Performed By: #### C BC, PRO, BMP, GFR, TROPHS, MDW, ADIFF, ANEU #### [address] [address] RBC 5.33 10 6/mcL Normal 4.04-6.13 [facility] ([place] Comment on above: Performed By: #### C BC, PRO, BMP, GFR, TROPHS, MDW, ADIFF, ANEU #### [address] [address] WBC 16.4 10 3/mcL High 4.6-10.8 [facility] ([place]) Comment on above: Performed By: #### C MATEUSZ, , TAHMINA, REYNA, LIA MCGEE, SHABBIR TORREZ #### [place] [address] [address] [address] SOFT TISSUE NECK W/ CONTR Aury 08-25-2023 CT SOFT TISSUE NECK W/ CONTRAST ORIGINAL EXAMINATION: CT SOFT TISSUE NECK W/ CONTRAST TECHNIQUE: Multiple-row detector helical CT examination of the neck with IV contrast. Nonionic intravenous contrast material was administered per standard departmental protocol. This exam was performed according to our departmental dose optimization program, and includes the following measures where applicable: automated exposure control, adjustment of the mAs and/or kVp according to patient size and/or exam, and an iterative reconstruction algorithm. COMPARISON: CTA neck 08/20/2023 HISTORY: Sore throat, difficulty swallowing for a couple days FINDINGS: Small hyperdensity within the right vallecula may represent mucus secretions. Otherwise, the aerodigestive structures are within normal limits. Specifically, the nasal cavity, nasopharynx, oral cavity, oropharynx, hypopharynx, larynx, and visualized trachea and esophagus demonstrate no masses or abnormal enhancement. There are no pathologically enlarged, necrotic, or otherwise abnormal lymph nodes. The parotid glands, submandibular glands, and the thyroid gland are normal in size without focal abnormality. Evaluation of the visualized portions of brain parenchyma and orbits demonstrates no acute abnormality. Small CSF density lesion posterior and medial to the left cerebellum may represent a small arachnoid cyst or estefany cisterna magna. This measures up to 1.8 cm in greatest axial dimension. Mucous retention cyst in the right maxillary sinus. The remainder of the included paranasal sinuses and tympanomastoid cavities are well pneumatized. There is normal intravascular enhancement. Mild multilevel degenerative disc disease is seen throughout the cervical spine. No suspicious osteolytic or osteoblastic lesions are seen. There is a right mandibular periapical lucency and there are multiple dental caries. The lung apices are clear. IMPRESSION: No cause for the patient's symptoms identified. Small hyperdensity within the right vallecula may represent mucus secretions. Additional chronic and incidental findings as above. Dental caries and right mandibular periapical lucency for which dental evaluation is recommended. REPORT CORRECTION I have personally reviewed the images of this examination and edited the preliminary report. Correction: Dental caries and right mandibular periapical lucency for which dental evaluation is recommended. Interpreted by: lEinor Wise Preliminary Report By: Stefano Booker Electronically signed By Elinor Wise Dictated Date: 08/25/2023 6:31:47 PM Prelim Date: 08/25/2023 6:40:06 PM Sign Date: 08/25/2023 6:49:07 PM Ordering Provider: VEE Bryan [facility] ([place]) LABORATORYOrdered By: SYSTEM SYSTEM on 08-25-2023 Basophil, Absolute 0.1 103/mcL Normal 0.0 - 0.2 10^3/mcL AO Workflow SS Basophils/100 WBC (Bld) 0.4 % Normal 0.0 - 2.5 % AO Workflow SS Calcium [Mass/Vol] 8.9 mg/dL Normal 8.4 - 10. 2 mg/dL AO ADM SS Chloride [Moles/Vol] 101 mmol/L Normal 98 - 10 7 mmol/L AO ADM SS CO2 [Moles/Vol] 30 mmol/L High 22 - 29 mmol/L AO ADM SS Creatinine [Mass/Vol] 0.99 mg/dL Normal 0.70 - 1.30 mg/dL AO ADM SS Electrolyte Balance 8.0 mEq/L Normal 4.0 - 15 .0 mEq/L AO ADM SS Eosinophil, Absolute 0.3 103/mcL Normal 0.0 - 0 .4 10^3/mcL AO Workflow SS Eosinophils/100 WBC (Bld) 1.9 % Normal 0.0 - 7.0 % AO Workflow SS Erythrocyte distribution width (RBC) [Ratio] 14.5 % Normal 11.5 - 14.5 % AO Workflow SS GFR/1.73 sq M.predicted among blacks MDRD (S/P/Bld) [Vol rate/Area] 99 ml/min/1.73sqm Invalid Interpretation Code AO Chemistry S Comment on above: Interpretive Data: GFR Population mean for , Non- Americans Ages 20-29 = 116 mL/min/1.73 sq.m. Ages 30-39 = 107 mL/min/1.73 sq.m. Ages 40-49 = 99 mL/min/1.73 sq.m. Ages 50-59 = 93 mL/min/1.73 sq.m. Ages 60-69 = 85 mL/min/1.73 sq.m. Ages 70+ = 75 mL/min/1.73 sq.m. Chronic Kidney Disease: Less than 60 mL/min/1.73 square meters End Stage Renal Disease: Less than 15 mL/min/1.73 square meters GFR/1.73 sq M.predicted among non-blacks MDRD (S/P/Bld) [Vol rate/Area] 81 ml/min/1.73sqm Invalid Interpretation Code AO Chemistry S Comment on above: Interpretive Data: GFR Population mean for , Non- Americans Ages 20-29 = 116 mL/min/1.73 sq.m. Ages 30-39 = 107 mL/min/1.73 sq.m. Ages 40-49 = 99 mL/min/1.73 sq.m. Ages 50-59 = 93 mL/min/1.73 sq.m. Ages 60-69 = 85 mL/min/1.73 sq.m. Ages 70+ = 75 mL/min/1.73 sq.m. Chronic Kidney Disease: Less than 60 mL/min/1.73 square meters End Stage Renal Disease: Less than 15 mL/min/1.73 square meters Glucose [Mass/Vol] 103 mg/dL Normal 70 - 105 mg/dL AO ADM SS Hematocrit (Bld) [Volume fraction] 43.1 % Normal 42.0 - 52.0 % AO Workflow SS Hemoglobin (Bld) [Mass/Vol] 14.5 G/dL Normal 14.0 - 18.0 G/dL AO Workflow SS Lymphocyte, Absolute 2.7 103/mcL Normal 0.8 - 3 .9 10^3/mcL AO Workflow SS Lymphocytes/100 WBC (Bld) 16.4 % Normal 10.0 - 50.0 % AO Workflow SS MCH (RBC) [Entitic mass] 27.3 pg Normal 27.0 - 31.2 pg AO Workflow SS MCHC 33.6 G/dL Normal 31.8 - 35.4 G/dL AO Workflow SS MCV (RBC) [Entitic vol] 81.0 fL Normal 80.0 - 94.0 fL AO Workflow SS Monocyte distribution width Auto (Bld) [Entitic vol] 16.54 1 Normal 0.00 - 20.00 AO Workflow SS Comment on above: Result Comment: For ED adult patients suspected of sepsis, MDW<=20.0 does not rule out sepsis or risk of sepsis Monocyte, Absolute 0.7 103/mcL Normal 0.2 - 1.0 10^3/mcL AO Workflow SS Monocytes/100 WBC (Bld) 4.4 % Normal 1.7 - 13.0 % AO Workflow SS Neutrophil, Absolute 12.6 103/mcL High 2.9 - 6 .2 10^3/mcL AO Workflow SS Neutrophils/100 WBC (Bld) 76.9 % Normal 37.0 - 80.0 % AO Workflow SS Platelet mean volume (Bld) [Entitic vol] 7.2 fL Low 7.4 - 10.4 fL AO Workflow SS Platelets (Bld) [#/Vol] 390 103/mcL Normal 130 - 400 10^3/mcL AO Workflow SS Potassium [Moles/Vol] 4.3 mmol/L Normal 3.5 - 5.1 mmol/L AO ADM SS RBC (Bld) [#/Vol] 5.33 106/mcL Normal 4.04 - 6.1 3 10^6/mcL AO Workflow SS Sodium [Moles/Vol] 139 mmol/L Normal 136 - 145 mmol/L AO ADM SS Urea nitrogen [Mass/Vol] 17 mg/dL Normal 7 - 18 mg/dL AO ADM SS Urea nitrogen/Creatinine [Mass ratio] 17 ratio Normal 7 - 27 ratio AO ADM SS WBC (Bld) [#/Vol] 16.4 103/mcL High 4.6 - 10.8 10^3/mcL AO Workflow SS LABORATORYOrdered By: Koko luna on 08-25-2023 Group A Strep PCR Int Negative Results: Negative for Streptococcus pyogenes by PCR. A negative test result does not exclude the possibility of infection because the test result may be affected by improper specimen collection, technical error, sample mix-up, or because the number of organisms in the sample is below the limit of detection of the test.The Xpert Xpress Strep A test should not be used as the sole basis for treatment or other patient management decisions. The Xpert Xpress Strep A test does not differentiate asymptomatic carriers of Group A streptococci from those exhibiting streptococcal infection. The results from the Xpert Xpress Strep A test should be interpreted in conjunction with other laboratory and clinical data available to the clinician.The Xpert Xpress Strep A Assay is a real-time polymerase chain reaction (PCR) based qualitative in vitro diagnostic test for the direct detection of Streptococcus pyogenes (Group A Beta hemolytic Streptococcus) in throat swab specimens from patients with signs and symptoms of pharyngitis.The assay is not intended to monitor treatment for Group A Streptococcus infections. Invalid Interpretation Code AO Auto Urine SS S. pyogenes DNA JOSE+probe Ql (Throat) Not Detected (08/25/23 4:57 PM) Normal Not Detected AO Auto Urine SS LABORATORYOrdered By: Teresa Cain on 08-25-2023 Heterophile Ab LA Ql (S) Negative (08/25/23 4:57 PM) Normal Negative AO Rapid Testing SS MONOon 08-25-2023 Mononucleosis Negative Normal Negative [facility] ([place]) Comment on above: Performed By: #### C BC, PRO, BMP, GFR, TROPHS, MDW, ADIFF, ANEU #### [address] [address] STREPAon 08-25-2023 Group A Strep PCR Not detected Normal Not Detected [facility] ([place]) Comment on above: Performed By: #### C BC, PRO, BMP, GFR, TROPHS, MDW, ADIFF, ANEU #### [address] [address] Group A Strep PCR Int Normal [facility] ([place]) Comment on above: Result Comment: Nega tive Results: Negative for Streptococcus pyogenes by PCR. A negative test result does not exclude the possibility of infection because the test result may be affected by improper specimen collection, technical error, sample mix-up, or because the number of organisms in the sample is below the limit of detection of the test. The Xpert Xpress Strep A test should not be used as the sole basis for treatment or other patient management decisions. The Xpert Xpress Strep A test does not differentiate asymptomatic carriers of Group A streptococci from those exhibiting streptococcal infection. The results from the Xpert Xpress Strep A test should be interpreted in conjunction with other laboratory and clinical data available to the clinician. The Xpert Xpress Strep A Assay is a real-time polymerase chain reaction (PCR) based qualitative in vitro diagnostic test for the direct detection of Streptococcus pyogenes (Group A Beta hemolytic Streptococcus) in throat swab specimens from patients with signs and symptoms of pharyngitis. The assay is not intended to monitor treatment for Group A Streptococcus infections. See Interp Performed By: #### C PRO MATEUSZ, BMP, GFR, LIA MCGEE, LORE, ANEU #### [address] [address] MRI BRAIN W/O CONTRASTon MRI BRAIN W/O CONTRAST ORIGINAL HISTORY: TIA COMPARISON: 29 December 2021 TECHNIQUE: 1. Sagittal T1-weighted images. 2. Axial T2-weighted and T2*-weighted images. 3. Axial FLAIR images. 4. Axial diffusion-weighted images with ADC map. FINDINGS: The study is mildly degraded by motion. The ventricles and sulci are normal in size and configuration. There are no abnormal intra or extra-axial fluid collections. There are a few scattered punctate T2 hyperintensities in the cerebral white matter; cai-white matter differentiation is maintained. There is no abnormal restriction of diffusion. The orbital contents are normal in appearance. The paranasal sinuses are clear. IMPRESSION: Unremarkable examination. Interpreted by: Tanya Rocha MD Preliminary Report By: Tanya Rocha MD Electronically signed By Tanya Rocha MD Dictated Date: 08/21/2023 10:45:26 AM Prelim Date: 08/21/2023 10:46:47 AM Sign Date: 08/21/2023 10:46:47 AM Ordering Provider: SHARATH Bryan [facility] ([place]) .Auto Diffon 08-20-2023 Basophil, Absolute 0.1 10 3/mcL Normal 0.0-0.2 [facility] ([place]) Comment on above: Performed By: #### C MATEUSZ, PRO, BMP, GFR, LIA MCGEE, LORE, ANEU #### [address] [address] Basophils/100 WBC (Bld) 0.9 % Normal 0.0-2.5 [facility] ([place]) Comment on above: Performed By: #### C BC, PRO, BMP, GFR, ARELY, LIA, LORE, ANEU #### [address] [address] Eosinophil, Absolute 0.2 10 3/mcL Normal 0.0-0.4 [facility] ([place]) Comment on above: Performed By: #### C BC, PRO, BMP, GFR, TROPHS, MDW, ADIFF, ANEU #### [address] [address] Eosinophils/100 WBC (Bld) 1.9 % Normal 0.0-7.0 [facility] ([place]) Comment on above: Performed By: #### C BC, PRO, BMP, GFR, TROPHS, MDW, ADIFF, ANEU #### [address] [address] Lymphocyte, Absolute 3.4 10 3/mcL Normal 0.8-3.9 [facility] ([place]) Comment on above: Performed By: #### C BC, PRO, BMP, GFR, TROPHS, MDW, ADIFF, ANEU #### [address] [address] Lymphocytes/100 WBC (Bld) 29.1 % Normal 10.0-50.0 [facility] ([place]) Comment on above: Performed By: #### C BC, PRO, BMP, GFR, TROPHS, MDW, ADIFF, ANEU #### [address] [address] Monocyte, Absolute 0.4 10 3/mcL Normal 0.2-1.0 [facility] ([place]) Comment on above: Performed By: #### C BC, PRO, BMP, GFR, TROPHS, MDW, ADIFF, ANEU #### [address] [address] Monocytes/100 WBC (Bld) 3.8 % Normal 1.7-13.0 [facility] ([place]) Comment on above: Performed By: #### C BC, PRO, BMP, GFR, TROPHS, MDW, ADIFF, ANEU #### [address] [address] Neutrophils/100 WBC (Bld) 64.3 % Normal 37.0-80.0 [facility] ([place]) Comment on above: Performed By: #### C BC, PRO, BMP, GFR, TROPHS, MDW, ADIFF, ANEU #### [address] [address] .GFRon 08-20-2023 GFR 107 ml/min/1.73sqm Normal [facility] ([place]) Comment on above: Result Comment: GFR Population mean for , Non- Americans Ages 20-29 = 116 mL/min/1.73 sq.m. Ages 30-39 = 107 mL/min/1.73 sq.m. Ages 40-49 = 99 mL/min/1.73 sq.m. Ages 50-59 = 93 mL/min/1.73 sq.m. Ages 60-69 = 85 mL/min/1.73 sq.m. Ages 70+ = 75 mL/min/1.73 sq.m. Chronic Kidney Disease: Less than 60 mL/min/1.73 square meters End Stage Renal Disease: Less than 15 mL/min/1.73 square meters Performed By: #### C BC, PRO, BMP, GFR, TROPHS, MDW, ADIFF, ANEU #### [address] [address] GFR Non- 89 ml/min/1.73sqm Normal [facility] ([place]) Comment on above: Result Comment: GFR Population mean for , Non- Americans Ages 20-29 = 116 mL/min/1.73 sq.m. Ages 30-39 = 107 mL/min/1.73 sq.m. Ages 40-49 = 99 mL/min/1.73 sq.m. Ages 50-59 = 93 mL/min/1.73 sq.m. Ages 60-69 = 85 mL/min/1.73 sq.m. Ages 70+ = 75 mL/min/1.73 sq.m. Chronic Kidney Disease: Less than 60 mL/min/1.73 square meters End Stage Renal Disease: Less than 15 mL/min/1.73 square meters Performed By: #### C BC, PRO, BMP, GFR, TROPHS, MDW, ADIFF, ANEU #### [address] [address] .MDWon 08-20-2023 Monocyte Distribution Width 16.87 Normal 0.00-20.00 [facility] ([place]) Comment on above: Result Comment: For ED adult patients suspected of sepsis, MDW<=20.0 does not rule out sepsis or risk of sepsis Performed By: #### C BC, PRO, BMP, GFR, ARELY, LIA, ADRIDGE, ANEU #### [address] [address] .NEUABSon 08-20-2023 Neutrophil, Absolute 7.4 10 3/mcL High 2.9-6.2 [facility] ([place]) Comment on above: Performed By: #### C BC, PRO, BMP, GFR, LIA MCGEE, ADRIDGE, ANEU #### [place] [id number] A1Con 08-20-2023 HbA1c (Bld) [Mass fraction] 5.6 % Normal 4.3-6.4 [facility] ([place]) Comment on above: Performed By: #### C BC, PRO, BMP, GFR, ARELY, LIA, ADIFF, ANEU #### [address] [address] APTTon 08-20-2023 aPTT Coag (Bld) [Time] 31.5 s Normal 25.0-35.0 [facility] ([place]) Comment on above: Result Comment: For Heparin anticoagulation therapy, the recommended therapeutic range is: 45.4-75.9 seconds. Patients on heparin therapy may have an extreme result. Performed By: #### C BC, PRO, BMP, GFR, ARELY, LIA, ADIFF, ANEU #### [address] [address] Heparin dose (APTT) Unknown Normal [facility] ([place]) Comment on above: Performed By: #### C BC, PRO, BMP, GFR, ARELY, LIA, ADIFF, ANEU #### [address] [address] BMPon 08-20-2023 BUN/Creatinine Ratio 14 ratio Normal 7-27 [facility]) Comment on above: Performed By: #### C BC, PRO, BMP, GFR, TROPHS, MDW, ADIFF, ANEU #### [address] [address] Calcium [Mass/Vol] 8.8 mg/dL Normal 8.4-10.2 [facility] ([place]) Comment on above: Performed By: #### C BC, PRO, BMP, GFR, TROPHS, MDW, ADIFF, ANEU #### [address] [address] Chloride [Moles/Vol] 102 mmol/L Normal 98-107 [facility] ([place]) Comment on above: Performed By: #### C BC, PRO, BMP, GFR, TROPHS, MDW, ADIFF, ANEU #### [address] [address] CO2 [Moles/Vol] 28 mmol/L Normal 22-29 [facility] ([place]) Comment on above: Performed By: #### C BC, PRO, BMP, GFR, TROPHS, MDW, ADIFF, ANEU #### [address] [address] Creatinine [Mass/Vol] 0.92 mg/dL Normal 0.70-1.30 [facility] ([place]) Comment on above: Performed By: #### C BC, PRO, BMP, GFR, TROPHS, MDW, ADIFF, ANEU #### [address] [address] Electrolyte Balance 11.0 mEq/L Normal 4.0-15.0 [facility] ([place]) Comment on above: Performed By: #### C BC, PRO, BMP, GFR, TROPHS, MDW, ADIFF, ANEU #### [address] [address] Glucose [Mass/Vol] 99 mg/dL Normal 70-105 [facility] ([place]) Comment on above: Performed By: #### C BC, PRO, BMP, GFR, TROPHS, MDW, ADIFF, ANEU #### [address] [address] Potassium [Moles/Vol] 3.9 mmol/L Normal 3.5-5.1 [facility] ([place]) Comment on above: Performed By: #### C BC, PRO, BMP, GFR, TROPHS, MDW, ADIFF, ANEU #### [address] [address] Sodium [Moles/Vol] 141 mmol/L Normal 136-145 [facility] ([place]) Comment on above: Performed By: #### C BC, PRO, BMP, GFR, TROPHS, MDW, ADIFF, ANEU #### [address] [address] Urea nitrogen [Mass/Vol] 13 mg/dL Normal 7-18 [facility] ([place]) Comment on above: Performed By: #### C BC, PRO, BMP, GFR, TROPHS, MDW, ADIFF, ANEU #### [address] [address] CBCon 08-20-2023 Erythrocyte distribution width (RBC) [Ratio] 14.4 % Normal 11.5-14.5 [facility] ([place]) Comment on above: Performed By: #### C BC, PRO, BMP, GFR, TROPHS, MDW, ADIFF, ANEU #### [address] [address] Hematocrit (Bld) [Volume fraction] 40.7 % Low 42.0-52.0 [facility] ([place] Comment on above: Performed By: #### C BC, PRO, BMP, GFR, TROPHS, MDW, ADIFF, ANEU #### [address] [address] Hgb 14.1 G/dL Normal 14.0-18.0 [facility] ([place]) Comment on above: Performed By: #### C BC, PRO, BMP, GFR, TROPHS, MDW, ADIFF, ANEU #### [address] [address] MCH (RBC) [Entitic mass] 27.4 pg Normal 27.0-31.2 [facility] ([place] Comment on above: Performed By: #### C BC, PRO, BMP, GFR, TROPHS, MDW, ADIFF, ANEU #### [address] [address] MCHC 34.6 G/dL Normal 31.8-35.4 [facility] ([place] Comment on above: Performed By: #### C BC, PRO, BMP, GFR, TROPHS, MDW, ADIFF, ANEU #### [address] [address] MCV (RBC) [Entitic vol] 79.3 fL Low 80.0-94.0 [facility] ([place]) Comment on above: Performed By: #### C BC, PRO, BMP, GFR, TROPHS, MDW, ADIFF, ANEU #### [address] [address] Platelet 379 10 3/mcL Normal 130-400 [facility] ([place]) Comment on above: Performed By: #### C BC, PRO, BMP, GFR, TROPHS, MDW, ADIFF, ANEU #### [address] [address] Platelet mean volume (Bld) [Entitic vol] 7.4 fL Normal 7.4-10.4 [facility] ([place]) Comment on above: Performed By: #### C BC, PRO, BMP, GFR, TROPHS, MDW, ADIFF, ANEU #### [address] [address] RBC 5.14 10 6/mcL Normal 4.04-6.13 [facility] ([place]) Comment on above: Performed By: #### C BC, PRO, BMP, GFR, TROPHS, MDW, ADIFF, ANEU #### [address] [address] WBC 11.5 10 3/mcL High 4.6-10.8 [facility] ([place]) Comment on above: Performed By: #### C BC, PRO, BMP, GFR, TROPHS, MDW, ADIFF, ANEU #### [address] [place], [place] [address] CT ANGIOGRAPHY HEAD W/ CONTR Aury 08-20-2023 CT ANGIOGRAPHY HEAD W/ CONTRAST ORIGINAL EXAMINATION: CTA OF THE HEAD WITH CONTRAST 08/20/2023 9:38 pm: TECHNIQUE: CTA of the head/brain was performed with the administration of intravenous contrast. Multiplanar reformatted images are provided for review. MIP images are provided for review. Automated exposure control, iterative reconstruction, and/or weight based adjustment of the mA/kV was utilized to reduce the radiation dose to as low as reasonably achievable. COMPARISON: CTA head 08/24/2021.. HISTORY: ORDERING SYSTEM PROVIDED HISTORY: Reason for Exam: Stroke Emergency FINDINGS: ANTERIOR CIRCULATION: Minimal atherosclerotic changes without significant stenosis of the intracranial internal carotid, anterior cerebral, or middle cerebral arteries. No aneurysm. POSTERIOR CIRCULATION: No significant stenosis of the vertebral, basilar, or posterior cerebral arteries. No aneurysm. OTHER: No dural venous sinus thrombosis on this non-dedicated study. BRAIN: No mass effect or midline shift. No extra-axial fluid collection. The cai-white differentiation is maintained. IMPRESSION: Unremarkable CTA of the head. Core team was used to relay negative findings to ordering provider. Interpreted by: Jan Block Preliminary Report By: Jan Block Electronically signed By Jan Block Dictated Date: 08/20/2023 9:42:54 PM Prelim Date: 08/20/2023 10:01:46 PM Sign Date: 08/20/2023 10:01:46 PM Ordering Provider: MU Bryan [facility] ([place]) CT ANGIOGRAPHY NECK W/CONTRA Julius 08-20-2023 CT ANGIOGRAPHY NECK W/CONTRAST ORIGINAL EXAMINATION: CTA OF THE NECK 08/20/2023 9:38 pm TECHNIQUE: CTA of the neck was performed with the administration of intravenous contrast. Multiplanar reformatted images are provided for review. MIP images are provided for review. Stenosis of the internal carotid arteries measured using NASCET criteria. Automated exposure control, iterative reconstruction, and/or weight based adjustment of the mA/kV was utilized to reduce the radiation dose to as low as reasonably achievable. COMPARISON: CTA neck 08/24/2021 HISTORY: ORDERING SYSTEM PROVIDED HISTORY: Reason for Exam: Stroke Emergency FINDINGS: AORTIC ARCH/ARCH VESSELS: 2 vessel arch. No dissection or arterial injury. No significant stenosis of the brachiocephalic or subclavian arteries. CAROTID ARTERIES: No dissection, arterial injury, or hemodynamically significant stenosis by NASCET criteria. VERTEBRAL ARTERIES: Patient body habitus results in significant artifact obscuring the origins and proximal portions of the vertebral arteries. The distal portions within the foramina are seen and widely patent. No dissection, arterial injury, or significant stenosis. SOFT TISSUES: The lung apices are grossly clear. No cervical or superior mediastinal lymphadenopathy. The larynx and pharynx are unremarkable. No acute abnormality of the salivary and thyroid glands. Subcentimeter likely colloid cyst within the right thyroid lobe, no follow-up required. Small mucous retention cysts within the right maxillary sinus. BONES: Multiple dental caries. Small periapical lucency with cortical thinning seen anteriorly involving the right mandibular 2nd premolar. IMPRESSION: No extracranial large vessel occlusion or hemodynamically significant stenosis. Small periapical lucency with cortical thinning involving the right mandibular 2nd premolar. Additional multiple dental caries. Dental referral is recommended. I have personally reviewed the images of this examination and agree with the resident's findings and interpretation. Interpreted by: Jan Block Preliminary Report By: Rudi Shepherd Electronically signed By Jan Block Dictated Date: 08/20/2023 9:40:00 PM Prelim Date: 08/20/2023 9:44:05 PM Sign Date: 08/20/2023 10:10:26 PM Ordering Provider: MU SERVIN [facility] ([place]) CT HEAD OR BRAIN W/O CONTRAS Ton 08-20-2023 CT HEAD OR BRAIN W/O CONTRAST ORIGINAL EXAMINATION: CT OF THE HEAD WITHOUT CONTRAST 08/20/2023 8:20 pm TECHNIQUE: CT of the head was performed without the administration of intravenous contrast. Automated exposure control, iterative reconstruction, and/or weight based adjustment of the mA/kV was utilized to reduce the radiation dose to as low as reasonably achievable. COMPARISON: CT head 12/31/2021 HISTORY: ORDERING SYSTEM PROVIDED HISTORY: Reason for Exam: change in mental status/weakness/aphasia FINDINGS: BRAIN/VENTRICLES: There is no acute intracranial hemorrhage, mass effect or midline shift. No abnormal extra-axial fluid collection. The cai-white differentiation is maintained without evidence of an acute infarct. There is no evidence of hydrocephalus. Minimal atherosclerosis of bilateral carotid siphons. ORBITS: The visualized portion of the orbits demonstrate no acute abnormality. SINUSES: The visualized paranasal sinuses and mastoid air cells demonstrate no acute abnormality. SOFT TISSUES/SKULL: No acute abnormality of the visualized skull or soft tissues. IMPRESSION: No acute intracranial hemorrhage or large vessel territory infarct. Critical results were called by Dr. Rudi Shepherd to MU SERVIN on 08/20/2023 at 20:27. I have personally reviewed the images of this examination and agree with the resident's findings and interpretation. Interpreted by: Jan Block Preliminary Report By: Rudi Shepherd Electronically signed By Jan Block Dictated Date: 08/20/2023 8:24:54 PM Prelim Date: 08/20/2023 8:28:55 PM Sign Date: 08/20/2023 8:31:15 PM Ordering Provider: MU SERVIN [facility] ([place]) LABORATORYOrdered By: Bradly aBker on 08-20-2023 aPTT Coag (PPP) [Time] 31.5 s Normal 25.0 - 35.0 seconds AO Hemo[facility] SS Comment on above: Interpretive Data: F or Heparin anticoagulation therapy, the recommended therapeutic range is: 45.4-75.9 seconds. Patients on heparin therapy may have an extreme result. Heparin dose (APTT) Unknown (08/20/23 10:00 PM) Normal AO Coagulation S INR Coag (PPP) [Relative time] 1.0 {INR} Invalid Interpretation Code AO [facility] SS Comment on above: Interpretive Data: Laurent sarah [employer] (CHEST, 1992, [id number]) recommended therapeutic range for oral anticoagulant therapy is: LOW RISK: Prophylaxis of venous thrombosis INR: 2.0-3.0 Treatment of pulmonary embolism 2.0-3.0 Prevention of systemic embolism 2.0-3.0 HIGH RISK: Mechanical prosthetic valves 2.5-3.5 Cholesterol [Mass/Vol] 199 mg/dL Normal 0 - 2 00 mg/dL AO ADM SS Comment on above: Interpretive Data: C holesterol Reference Interval: Less than 200 Desirable 200-239 Borderline high risk 240 and above High risk Cholesterol in HDL [Mass/Vol] 37 mg/dL Low 40 - 60 mg/dL AO ADM SS Cholesterol in LDL [Mass/Vol] 143 mg/dL High 0 - 130 mg/dL AO ADM SS Triglyceride [Mass/Vol] 95 mg/dL Normal 0 - 150 mg/dL AO ADM SS Comment on above: Interpretive Data: T riglyceride Reference Interval: Less than 150 Normal 150-199 Borderline high risk 200-499 High risk 500 or higher Very high risk LABORATORYOrdered By: SYSTEM SYSTEM on 08-20-2023 Basophil, Absolute 0.1 103/mcL Normal 0.0 - 0.2 10^3/mcL AO Workflow SS Basophils/100 WBC (Bld) 0.9 % Normal 0.0 - 2.5 % AO Workflow SS Calcium [Mass/Vol] 8.8 mg/dL Normal 8.4 - 10. 2 mg/dL AO ADM SS Chloride [Moles/Vol] 102 mmol/L Normal 98 - 10 7 mmol/L AO ADM SS CO2 [Moles/Vol] 28 mmol/L Normal 22 - 29 mmol/L AO ADM SS Creatinine [Mass/Vol] 0.92 mg/dL Normal 0.70 - 1.30 mg/dL AO ADM SS Electrolyte Balance 11.0 mEq/L Normal 4.0 - 15 .0 mEq/L AO ADM SS Eosinophil, Absolute 0.2 103/mcL Normal 0.0 - 0 .4 10^3/mcL AO Workflow SS Eosinophils/100 WBC (Bld) 1.9 % Normal 0.0 - 7.0 % AO Workflow SS Erythrocyte distribution width (RBC) [Ratio] 14.4 % Normal 11.5 - 14.5 % AO Workflow SS GFR/1.73 sq M.predicted among blacks MDRD (S/P/Bld) [Vol rate/Area] 107 ml/min/1.73sqm Invalid Interpretation Code AO Chemistry S Comment on above: Interpretive Data: GFR Population mean for , Non- Americans Ages 20-29 = 116 mL/min/1.73 sq.m. Ages 30-39 = 107 mL/min/1.73 sq.m. Ages 40-49 = 99 mL/min/1.73 sq.m. Ages 50-59 = 93 mL/min/1.73 sq.m. Ages 60-69 = 85 mL/min/1.73 sq.m. Ages 70+ = 75 mL/min/1.73 sq.m. Chronic Kidney Disease: Less than 60 mL/min/1.73 square meters End Stage Renal Disease: Less than 15 mL/min/1.73 square meters GFR/1.73 sq M.predicted among non-blacks MDRD (S/P/Bld) [Vol rate/Area] 89 ml/min/1.73sqm Invalid Interpretation Code AO Chemistry S Comment on above: Interpretive Data: GFR Population mean for , Non- Americans Ages 20-29 = 116 mL/min/1.73 sq.m. Ages 30-39 = 107 mL/min/1.73 sq.m. Ages 40-49 = 99 mL/min/1.73 sq.m. Ages 50-59 = 93 mL/min/1.73 sq.m. Ages 60-69 = 85 mL/min/1.73 sq.m. Ages 70+ = 75 mL/min/1.73 sq.m. Chronic Kidney Disease: Less than 60 mL/min/1.73 square meters End Stage Renal Disease: Less than 15 mL/min/1.73 square meters Glucose [Mass/Vol] 99 mg/dL Normal 70 - 105 mg/dL AO ADM SS HbA1c (Bld) [Mass fraction] 5.6 % Normal 4.3 - 6.4 % AO ADM SS Hematocrit (Bld) [Volume fraction] 40.7 % Low 42.0 - 52.0 % AO Workflow SS Hemoglobin (Bld) [Mass/Vol] 14.1 G/dL Normal 14.0 - 18.0 G/dL AO Workflow SS Lymphocyte, Absolute 3.4 103/mcL Normal 0.8 - 3 .9 10^3/mcL AO Workflow SS Lymphocytes/100 WBC (Bld) 29.1 % Normal 10.0 - 50.0 % AO Workflow SS MCH (RBC) [Entitic mass] 27.4 pg Normal 27.0 - 31.2 pg AO Workflow SS MCHC 34.6 G/dL Normal 31.8 - 35.4 G/dL AO Workflow SS MCV (RBC) [Entitic vol] 79.3 fL Low 80.0 - 94.0 fL AO Workflow SS Monocyte distribution width Auto (Bld) [Entitic vol] 16.87 1 Normal 0.00 - 20.00 AO Workflow SS Comment on above: Result Comment: For ED adult patients suspected of sepsis, MDW<=20.0 does not rule out sepsis or risk of sepsis Monocyte, Absolute 0.4 103/mcL Normal 0.2 - 1.0 10^3/mcL AO Workflow SS Monocytes/100 WBC (Bld) 3.8 % Normal 1.7 - 13.0 % AO Workflow SS Neutrophil, Absolute 7.4 103/mcL High 2.9 - 6 .2 10^3/mcL AO Workflow SS Neutrophils/100 WBC (Bld) 64.3 % Normal 37.0 - 80.0 % AO Workflow SS Platelet mean volume (Bld) [Entitic vol] 7.4 fL Normal 7.4 - 10.4 fL AO Workflow SS Platelets (Bld) [#/Vol] 379 103/mcL Normal 130 - 400 10^3/mcL AO Workflow SS Potassium [Moles/Vol] 3.9 mmol/L Normal 3.5 - 5.1 mmol/L AO ADM SS RBC (Bld) [#/Vol] 5.14 106/mcL Normal 4.04 - 6.1 3 10^6/mcL AO Workflow SS Sodium [Moles/Vol] 141 mmol/L Normal 136 - 145 mmol/L AO ADM SS Troponin I.cardiac DL <= 0.01 ng/mL [Mass/Vol] ng/L Normal 0 - 76 ng/L AO ADM SS Comment on above: Interpretive Data: H igh Sensitive Troponin I Reference Ranges: Female: 0-51 ng/L Male: 0-76 ng/L Testing performed on [email or web address] using a homogeneous sandwich chemiluminescent immunoassay based on [employer] technology. Urea nitrogen [Mass/Vol] 13 mg/dL Normal 7 - 18 mg/dL AO ADM SS Urea nitrogen/Creatinine [Mass ratio] 14 ratio Normal 7 - 27 ratio AO ADM SS WBC (Bld) [#/Vol] 11.5 103/mcL High 4.6 - 10.8 10^3/mcL AO Workflow SS LABORATORYOrdered By: David Rachel on 08-20-2023 Glucose [Mass/Vol] 100 mg/dL Normal 70 - 110 mg/dL [facility] LIPIDon 08-20-2023 Cholesterol [Mass/Vol] 199 mg/dL Normal 0-200 [facility] ([place]) Comment on above: Result Comment: Chol esterol Reference Interval: Less than 200 Desirable 200-239 Borderline high risk 240 and above High risk Performed By: #### C BC, PRO, BMP, GFR, TROPHS, MDW, ADIFF, ANEU #### [address] [address] Cholesterol in HDL [Mass/Vol] 37 mg/dL Low 40-60 [facility] ([place]) Comment on above: Performed By: #### C BC, PRO, BMP, GFR, TROPHS, MDW, ADIFF, ANEU #### [address] [address] Cholesterol in LDL [Mass/Vol] 143 mg/dL High 0-130 [facility] ([place]) Comment on above: Performed By: #### C BC, PRO, BMP, GFR, TROPHS, MDW, ADIFF, ANEU #### [address] [address] Triglyceride [Mass/Vol] 95 mg/dL Normal 0-150 [facility] ([place]) Comment on above: Result Comment: Trig lyceride Reference Interval: Less than 150 Normal 150-199 Borderline high risk 200-499 High risk 500 or higher Very high risk Performed By: #### C BC, PRO, BMP, GFR, TROPHS, MDW, ADIFF, ANEU #### [address] [address] PROOrdered By: Justyna clay on 08-20-2023 PT Coag (PPP) [Time] 11.4 s Normal 9.0-14.4 AO H emoHub SS Comment on above: Performed By: #### C BC, PRO, BMP, GFR, TROPHS, MDW, ADIFF, ANEU #### [place] [id number] PROon 08-20-2023 PT International Ratio 1.0 Normal [facility] ([place]) Comment on above: Result Comment: [employer] (CHEST, 1992, 102:[id number]) recommended therapeutic range for oral anticoagulant therapy is: LOW RISK: Prophylaxis of venous thrombosis INR: 2.0-3.0 Treatment of pulmonary embolism 2.0-3.0 Prevention of systemic embolism 2.0-3.0 HIGH RISK: Mechanical prosthetic valves 2.5-3.5 Performed By: #### C BC, PRO, BMP, GFR, TROPHS, MDW, ADIFF, ANEU #### [facility] [address] [place], [place] [address] TROPHSon 08-20-2023 High Sensitivity Troponin I <4 Normal 0-76 [facility] ([place]) Comment on above: Result Comment: High Sensitive Troponin I Reference Ranges: Female: 0-51 ng/L Male: 0-76 ng/L Testing performed on [email or web address] using a homogeneous sandwich chemiluminescent immunoassay based on [employer] technology. Performed By: #### C BC, PRO, BMP, GFR, LIA MCGEE, LORE, SHABBIR #### [facility] [place] [address] [place], [place] [address] XR CHEST 1 VIEWon 08-20-2023 XR CHEST 1 VIEW ORIGINAL EXAMINATION: ONE XRAY VIEW OF THE CHEST 08/20/2023 9:29 pm COMPARISON: Chest x-ray 06/08/2023 HISTORY: ORDERING SYSTEM PROVIDED HISTORY: Reason for Exam: chest pain/SOB FINDINGS: Cardiomediastinal contours stable. No focal consolidation or pulmonary edema. No pneumothorax or pleural effusion. No acute osseous abnormality. IMPRESSION: No acute radiographic abnormality. I have personally reviewed the images of this examination and agree with the resident's findings and interpretation. Interpreted by: Eldon Watkins MD Preliminary Report By: Rudi Shepherd Electronically signed By Eldon Watkins MD Dictated Date: 08/20/2023 9:29:44 PM Prelim Date: 08/20/2023 9:30:53 PM Sign Date: 08/20/2023 9:46:39 PM Ordering Provider: MU Bryan [facility] ([place]) CNOVj carlos 06-25-2023 CNOV Office Visit (CCWRNC ) BARRETT LOPEZ ([id number]) 1975 M Date Time Provider Department 06/25/23 11:30 AM [facility] During your visit today, we recorded the following information about you: Allergies As of Date: 06/25/2023 Noted Allergy Reaction CODEINE 01/02/2006 LATEX 07/02/2017 7 - Swelling Comments: AND rash NAPROXEN 11/22/2022 4 - Hives VICODIN (HYDROCODONE-ACETAMINOP HE*01/02/2006 Date Reviewed: 11/26/2022 Reviewed by: Francia Sheets RN - Fully Assessed Reason for Visit: Pain [78] Primary Visit Diagnosis:Contusion of right back wall of thorax, initial encounter [S20.221A] Other Visit Diagnosis:Fracture of one rib, right side, initial encounter for closed fracture [S22.31XA] Prescriptions as of 06/25/2023 - furosemide (LASIX) 20 mg tablet Take 1 tablet by mouth once daily. Meds Comments as of 01/08/2022: 01/08/22 No medication changes with the past 30 days. Katerina Britt RN Problem List As Of Date 06/25/2023 Noted Resolved Unspecified adjustment reaction [F43.20] 10/23/2011 Chronic cholecystitis due to cholelithiasis wit*12/02/2017 Obesity, Class III, BMI >= 40 [E66.01] 11/27/2022 Encounter Status:Closed by JENN OCHOA on 06/25/23 [facility] .Auto Diffon 06-15-2023 Basophil, Absolute 0.1 10 3/mcL Normal 0.0-0.2 [facility] ([place]) Comment on above: Performed By: #### C BC, PRO, BMP, GFR, LIA MCGEE, SHABBIR TORREZ #### [address] [address] Basophils/100 WBC (Bld) 0.8 % Normal 0.0-2.5 [facility] ([place]) Comment on above: Performed By: #### C BC, PRO, BMP, GFR, LIA MCGEE, SHABBIR TORREZ #### [address] [address] Eosinophil, Absolute 0.4 10 3/mcL Normal 0.0-0.4 [facility] ([place]) Comment on above: Performed By: #### C BC, PRO, BMP, GFR, TROPHS, MDW, ADIFF, ANEU #### [address] [address] Eosinophils/100 WBC (Bld) 3.4 % Normal 0.0-7.0 [facility] ([place]) Comment on above: Performed By: #### C BC, PRO, BMP, GFR, TROPHS, MDW, ADIFF, ANEU #### [address] [address] Lymphocyte, Absolute 3.8 10 3/mcL Normal 0.8-3.9 [facility] ([place]) Comment on above: Performed By: #### C BC, PRO, BMP, GFR, TROPHS, MDW, ADIFF, ANEU #### [address] [address] Lymphocytes/100 WBC (Bld) 34.8 % Normal 10.0-50.0 [facility] ([place]) Comment on above: Performed By: #### C BC, PRO, BMP, GFR, TROPHS, MDW, ADIFF, ANEU #### [address] [address] Monocyte, Absolute 0.3 10 3/mcL Normal 0.2-1.0 [facility] ([place]) Comment on above: Performed By: #### C BC, PRO, BMP, GFR, TROPHS, MDW, ADIFF, ANEU #### [address] [address] Monocytes/100 WBC (Bld) 2.8 % Normal 1.7-13.0 [facility] ([place] Comment on above: Performed By: #### C BC, PRO, BMP, GFR, TROPHS, MDW, ADIFF, ANEU #### [address] [address] Neutrophils/100 WBC (Bld) 58.2 % Normal 37.0-80.0 [facility] ([place] Comment on above: Performed By: #### C BC, PRO, BMP, GFR, TROPHS, MDW, ADIFF, ANEU #### [address] [address] .GFRon 06-15-2023 GFR 101 ml/min/1.73sqm Normal [facility] ([place]) Comment on above: Result Comment: GFR Population mean for , Non- Americans Ages 20-29 = 116 mL/min/1.73 sq.m. Ages 30-39 = 107 mL/min/1.73 sq.m. Ages 40-49 = 99 mL/min/1.73 sq.m. Ages 50-59 = 93 mL/min/1.73 sq.m. Ages 60-69 = 85 mL/min/1.73 sq.m. Ages 70+ = 75 mL/min/1.73 sq.m. Chronic Kidney Disease: Less than 60 mL/min/1.73 square meters End Stage Renal Disease: Less than 15 mL/min/1.73 square meters Performed By: #### C BC, PRO, BMP, GFR, TROPHS, LIA, ADIFF, ANEU #### [address] [address] GFR Non- 83 ml/min/1.73sqm Normal [facility] ([place]) Comment on above: Result Comment: GFR Population mean for , Non- Americans Ages 20-29 = 116 mL/min/1.73 sq.m. Ages 30-39 = 107 mL/min/1.73 sq.m. Ages 40-49 = 99 mL/min/1.73 sq.m. Ages 50-59 = 93 mL/min/1.73 sq.m. Ages 60-69 = 85 mL/min/1.73 sq.m. Ages 70+ = 75 mL/min/1.73 sq.m. Chronic Kidney Disease: Less than 60 mL/min/1.73 square meters End Stage Renal Disease: Less than 15 mL/min/1.73 square meters Performed By: #### C BC, PRO, BMP, GFR, TROPHS, MDW, ADIFF, ANEU #### [address] [place], [place] [address] .MDWon 06-15-2023 Monocyte Distribution Width 19.12 Normal 0.00-20.00 [facility] ([place]) Comment on above: Result Comment: For ED adult patients suspected of sepsis, MDW<=20.0 does not rule out sepsis or risk of sepsis Performed By: #### C BC, PRO, BMP, GFR, TROPHS, W, ADIFF, ANEU #### [address] [address] .NEUABSon 06-15-2023 Neutrophil, Absolute 6.3 10 3/mcL High 2.9-6.2 [facility] ([place]) Comment on above: Performed By: #### C BC, PRO, BMP, GFR, TROPHS, MDW, ADIFF, ANEU #### [address] [address] BMPon 06-15-2023 BUN/Creatinine Ratio 18 ratio Normal 7-27 [facility] ([place]) Comment on above: Performed By: #### C BC, PRO, BMP, GFR, TROPHS, MDW, ADIFF, ANEU #### [address] [address] Calcium [Mass/Vol] 8.4 mg/dL Normal 8.4-10.2 [facility] ([place]) Comment on above: Performed By: #### C BC, PRO, BMP, GFR, TROPHS, W, ADIFF, ANEU #### [address] [address] Chloride [Moles/Vol] 104 mmol/L Normal 98-107 [facility] ([place]) Comment on above: Performed By: #### C BC, PRO, BMP, GFR, TROPHS, MDW, ADIFF, ANEU #### [address] [address] CO2 [Moles/Vol] 29 mmol/L Normal 22-29 [facility] ([place]) Comment on above: Performed By: #### C BC, PRO, BMP, GFR, TROPHS, MDW, ADIFF, ANEU #### [address] [address] Creatinine [Mass/Vol] 0.97 mg/dL Normal 0.70-1.30 [facility] ([place]) Comment on above: Performed By: #### C BC, PRO, BMP, GFR, TROPHS, MDW, ADIFF, ANEU #### [address] [address] Electrolyte Balance 8.0 mEq/L Normal 4.0-15.0 [facility] ([place]) Comment on above: Performed By: #### C BC, PRO, BMP, GFR, TROPHS, MDW, ADIFF, ANEU #### [address] [address] Glucose [Mass/Vol] 129 mg/dL High 70-105 [facility] ([place]) Comment on above: Performed By: #### C BC, PRO, BMP, GFR, TROPHS, MDW, ADIFF, ANEU #### [address] [address] Potassium [Moles/Vol] 4.0 mmol/L Normal 3.5-5.1 [facility] ([place]) Comment on above: Performed By: #### C BC, PRO, BMP, GFR, TROPHS, MDW, ADIFF, ANEU #### [address] [address] Sodium [Moles/Vol] 141 mmol/L Normal 136-145 [facility] ([place]) Comment on above: Performed By: #### C BC, PRO, BMP, GFR, TROPHS, MDW, ADIFF, ANEU #### [address] [address] Urea nitrogen [Mass/Vol] 17 mg/dL Normal 7-18 [facility] ([place]) Comment on above: Performed By: #### C BC, PRO, BMP, GFR, TROPHS, MDW, ADIFF, ANEU #### [address] [address] CBCon 06-15-2023 Erythrocyte distribution width (RBC) [Ratio] 14.1 % Normal 11.5-14.5 [facility] ([place] Comment on above: Performed By: #### C BC, PRO, BMP, GFR, TROPHS, MDW, ADIFF, ANEU #### [address] [address] Hematocrit (Bld) [Volume fraction] 40.9 % Low 42.0-52.0 [facility] ([place] Comment on above: Performed By: #### C BC, PRO, BMP, GFR, TROPHS, MDW, ADIFF, ANEU #### [address] [address] Hgb 14.2 G/dL Normal 14.0-18.0 [facility] ([place] Comment on above: Performed By: #### C BC, PRO, BMP, GFR, TROPHS, MDW, ADIFF, ANEU #### [address] [address] MCH (RBC) [Entitic mass] 27.7 pg Normal 27.0-31.2 [facility] ([place] Comment on above: Performed By: #### C BC, PRO, BMP, GFR, TROPHS, MDW, ADIFF, ANEU #### [address] [address] MCHC 34.6 G/dL Normal 31.8-35.4 [facility] ([place] Comment on above: Performed By: #### C BC, PRO, BMP, GFR, TROPHS, MDW, ADIFF, ANEU #### [address] [address] MCV (RBC) [Entitic vol] 80.1 fL Normal 80.0-94.0 [facility] ([place] Comment on above: Performed By: #### C BC, PRO, BMP, GFR, TROPHS, MDW, ADIFF, ANEU #### [address] [address] Platelet 319 10 3/mcL Normal 130-400 [facility] ([place]) Comment on above: Performed By: #### C BC, PRO, BMP, GFR, TROPHS, MDW, ADIFF, ANEU #### [address] [address] Platelet mean volume (Bld) [Entitic vol] 7.4 fL Normal 7.4-10.4 [facility] ([place] Comment on above: Performed By: #### C BC, PRO, BMP, GFR, TROPHS, MDW, ADIFF, ANEU #### [place] [address] [address] RBC 5.11 10 6/mcL Normal 4.04-6.13 [facility] ([place]) Comment on above: Performed By: #### C BC, PRO, BMP, GFR, TROPHS, MDW, ADIFF, ANEU #### [place] [address] [address] WBC 10.8 10 3/mcL Normal 4.6-10.8 [facility] ([place]) Comment on above: Performed By: #### C BC, PRO, BMP, GFR, TROPHS, MDW, ADIFF, ANEU #### [place] [address] LABORATORYOrdered By: SYSTEM SYSTEM on 06-15-2023 Basophil, Absolute 0.1 103/mcL Normal 0.0 - 0.2 10^3/mcL AO Workflow SS Basophils/100 WBC (Bld) 0.8 % Normal 0.0 - 2.5 % AO Workflow SS Calcium [Mass/Vol] 8.4 mg/dL Normal 8.4 - 10. 2 mg/dL AO ADM SS Chloride [Moles/Vol] 104 mmol/L Normal 98 - 10 7 mmol/L AO ADM SS CO2 [Moles/Vol] 29 mmol/L Normal 22 - 29 mmol/L AO ADM SS Creatinine [Mass/Vol] 0.97 mg/dL Normal 0.70 - 1.30 mg/dL AO ADM SS Electrolyte Balance 8.0 mEq/L Normal 4.0 - 15 .0 mEq/L AO ADM SS Eosinophil, Absolute 0.4 103/mcL Normal 0.0 - 0 .4 10^3/mcL AO Workflow SS Eosinophils/100 WBC (Bld) 3.4 % Normal 0.0 - 7.0 % AO Workflow SS Erythrocyte distribution width (RBC) [Ratio] 14.1 % Normal 11.5 - 14.5 % AO Workflow SS GFR/1.73 sq M.predicted among blacks MDRD (S/P/Bld) [Vol rate/Area] 101 ml/min/1.73sqm Invalid Interpretation Code AO Chemistry S Comment on above: Interpretive Data: GFR Population mean for , Non- Americans Ages 20-29 = 116 mL/min/1.73 sq.m. Ages 30-39 = 107 mL/min/1.73 sq.m. Ages 40-49 = 99 mL/min/1.73 sq.m. Ages 50-59 = 93 mL/min/1.73 sq.m. Ages 60-69 = 85 mL/min/1.73 sq.m. Ages 70+ = 75 mL/min/1.73 sq.m. Chronic Kidney Disease: Less than 60 mL/min/1.73 square meters End Stage Renal Disease: Less than 15 mL/min/1.73 square meters GFR/1.73 sq M.predicted among non-blacks MDRD (S/P/Bld) [Vol rate/Area] 83 ml/min/1.73sqm Invalid Interpretation Code AO Chemistry S Comment on above: Interpretive Data: GFR Population mean for , Non- Americans Ages 20-29 = 116 mL/min/1.73 sq.m. Ages 30-39 = 107 mL/min/1.73 sq.m. Ages 40-49 = 99 mL/min/1.73 sq.m. Ages 50-59 = 93 mL/min/1.73 sq.m. Ages 60-69 = 85 mL/min/1.73 sq.m. Ages 70+ = 75 mL/min/1.73 sq.m. Chronic Kidney Disease: Less than 60 mL/min/1.73 square meters End Stage Renal Disease: Less than 15 mL/min/1.73 square meters Glucose [Mass/Vol] 129 mg/dL High 70 - 105 mg/dL AO ADM SS Hematocrit (Bld) [Volume fraction] 40.9 % Low 42.0 - 52.0 % AO Workflow SS Hemoglobin (Bld) [Mass/Vol] 14.2 G/dL Normal 14.0 - 18.0 G/dL AO Workflow SS Lymphocyte, Absolute 3.8 103/mcL Normal 0.8 - 3 .9 10^3/mcL AO Workflow SS Lymphocytes/100 WBC (Bld) 34.8 % Normal 10.0 - 50.0 % AO Workflow SS MCH (RBC) [Entitic mass] 27.7 pg Normal 27.0 - 31.2 pg AO Workflow SS MCHC 34.6 G/dL Normal 31.8 - 35.4 G/dL AO Workflow SS MCV (RBC) [Entitic vol] 80.1 fL Normal 80.0 - 94.0 fL AO Workflow SS Monocyte distribution width Auto (Bld) [Entitic vol] 19.12 1 Normal 0.00 - 20.00 AO Workflow SS Comment on above: Result Comment: For ED adult patients suspected of sepsis, MDW<=20.0 does not rule out sepsis or risk of sepsis Monocyte, Absolute 0.3 103/mcL Normal 0.2 - 1.0 10^3/mcL AO Workflow SS Monocytes/100 WBC (Bld) 2.8 % Normal 1.7 - 13.0 % AO Workflow SS Neutrophil, Absolute 6.3 103/mcL High 2.9 - 6 .2 10^3/mcL AO Workflow SS Neutrophils/100 WBC (Bld) 58.2 % Normal 37.0 - 80.0 % AO Workflow SS Platelet mean volume (Bld) [Entitic vol] 7.4 fL Normal 7.4 - 10.4 fL AO Workflow SS Platelets (Bld) [#/Vol] 319 103/mcL Normal 130 - 400 10^3/mcL AO Workflow SS Potassium [Moles/Vol] 4.0 mmol/L Normal 3.5 - 5.1 mmol/L AO ADM SS RBC (Bld) [#/Vol] 5.11 106/mcL Normal 4.04 - 6.1 3 10^6/mcL AO Workflow SS Sodium [Moles/Vol] 141 mmol/L Normal 136 - 145 mmol/L AO ADM SS Urea nitrogen [Mass/Vol] 17 mg/dL Normal 7 - 18 mg/dL AO ADM SS Urea nitrogen/Creatinine [Mass ratio] 18 ratio Normal 7 - 27 ratio AO ADM SS WBC (Bld) [#/Vol] 10.8 103/mcL Normal 4.6 - 10.8 10^3/mcL AO Workflow SS CNOVon 06-11-2023 CNOV Office Visit (CCWRNC ) ZANDRABARRETT Adams ([id number]) 1975 M Date Time Provider Department 06/11/23 12:30 PM [facility] During your visit today, we recorded the following information about you: Allergies As of Date: 06/11/2023 Noted Allergy Reaction CODEINE 01/02/2006 LATEX 07/02/2017 7 - Swelling Comments: AND rash NAPROXEN 11/22/2022 4 - Hives VICODIN (HYDROCODONE-ACETAMINOP HE*01/02/2006 Date Reviewed: 11/26/2022 Reviewed by: Francia Sheets RN - Fully Assessed Reason for Visit: Pain [78] Primary Visit Diagnosis:Contusion of right back wall of thorax, initial encounter [S20.221A] Other Visit Diagnosis:Fracture of one rib, right side, initial encounter for closed fracture [S22.31XA] Prescriptions as of 06/11/2023 - furosemide (LASIX) 20 mg tablet Take 1 tablet by mouth once daily. Meds Comments as of 01/08/2022: 01/08/22 No medication changes with the past 30 days. Katerina Britt RN Problem List As Of Date 06/11/2023 Noted Resolved Unspecified adjustment reaction [F43.20] 10/23/2011 Chronic cholecystitis due to cholelithiasis wit*12/02/2017 Obesity, Class III, BMI >= 40 [E66.01] 11/27/2022 Encounter Status:Closed by JENN OCHOA on 06/11/23 [facility] XR RIB/CHST 3V AP RIB/OBL/CH ST Levy 06-11-2023 XR RIB/CHST 3V AP RIB/OBL/CHST R * * *Final Report* * * DATE OF EXAM: Jun 11 2023 1:29PM RNX [id number] - XR RIB/CHST 3V AP RIB/OBL/CHST R / PROCEDURE REASON: Chest wall contusion, right, initial encounter * * * * Physician Interpretation * * * * XR RIB/CHST 3V AP RIB/OBL/CHST R Ordering Physician: VIC SAMANO RIGHT RIB SERIES 5 VIEWS Clinical Statement: Chest wall contusion. Pain. Comparison chest x-ray 08/11/2019 FINDINGS: No pneumothorax. No rib fracture identified. The osseous structures are intact. Degenerative changes within the spine. IMPRESSION: No acute osseous abnormality. Senior Net Web Developer: [facility] Transcribe Date/Time: Jun 11 2023 1:45P Dictated by : PAT CARTWRIGHT MD This examination was interpreted and the report reviewed and electronically signed by: PAT CARTWRIGHT MD on Jun 11 2023 1:48PM EST [id number] Normal [facility] XR Ribs - right Views and Ch est PAon 06-11-2023 IMPRESSION: No acute osseous abnormality. Senior Net Web Developer: [facility] Transcribe Date/Time: Jun 11 2023 1:45P Dictated by : PAT CARTWRIGHT MD This examination was interpreted and the report reviewed and electronically signed by: PAT CARTWRIGHT MD on Jun 11 2023 1:48PM [facility] RAD[facility]OLOG[facility] * * *Final Report* * * DATE OF EXAM: Jun 11 2023 1:29PM RNX [id number] - XR RIB/CHST 3V AP RIB/OBL/CHST R / PROCEDURE REASON: Chest wall contusion, right, initial encounter * * * * Physician Interpretation * * * * XR RIB/CHST 3V AP RIB/OBL/CHST R Ordering Physician: VIC SAMANO RIGHT RIB SERIES 5 VIEWS Clinical Statement: Chest wall contusion. Pain. Comparison chest x-ray 08/11/2019 FINDINGS: No pneumothorax. No rib fracture identified. The osseous structures are intact. Degenerative changes within the spine. [facility] RAD[facility] Provider, [facility] Concha g Layton - 06/11/2023 * * *Final Report* * * DATE OF EXAM: Jun 11 2023 1:29PM RNX [id number] - XR RIB/CHST 3V AP RIB/OBL/CHST R / PROCEDURE REASON: Chest wall contusion, right, initial encounter * * * * Physician Interpretation * * * * XR RIB/CHST 3V AP RIB/OBL/CHST R Ordering Physician: VIC SAMANO RIGHT RIB SERIES 5 VIEWS Clinical Statement: Chest wall contusion. Pain. Comparison chest x-ray 08/11/2019 FINDINGS: No pneumothorax. No rib fracture identified. The osseous structures are intact. Degenerative changes within the spine. IMPRESSION IMPRESSION: No acute osseous abnormality. Senior Net Web Developer: [facility] Transcribe Date/Time: Jun 11 2023 1:45P Dictated by : PAT CARTWRIGHT MD This examination was interpreted and the report reviewed and electronically signed by: PAT CARTWRIGHT MD on Jun 11 2023 1:48PM EST [facility] Radiology Study observation (narrative) [facility] XR Ribs - right Views and Ch est PAOrdered By: [facility] Provider on 06-11-2023 [facility] XR CHEST 2 VIEWSon XR CHEST 2 VIEWS ORIGINAL EXAMINATION: TWO XRAY VIEWS OF THE CHEST 06/08/2023 12:56 am COMPARISON: 03/12/2023. HISTORY: ORDERING SYSTEM PROVIDED HISTORY: Reason for Exam: Chest pain FINDINGS: Stable cardiomediastinal silhouette. Decreased lung volumes. Mild streaky infrahilar and bibasilar opacity/atelectasis.. No pleural effusion or pneumothorax. No acute osseous abnormality. IMPRESSION: Low lung volumes. Mild streaky infrahilar and bibasilar opacities/atelectasis.. I have personally reviewed the images of this examination and agree with the resident's findings and interpretation. Interpreted by: Mars Sevilla Preliminary Report By: Sal Huggins Electronically signed By Mars Sevilla Dictated Date: 06/08/2023 12:57:36 AM Prelim Date: 06/08/2023 12:58:46 AM Sign Date: 06/08/2023 1:00:35 AM [facility]ing [facility] AND WRIST 6 VIEWS LE FTon 06-08-2023 XR HAND AND WRIST 6 VIEWS LEFT ORIGINAL EXAMINATION: 6 XRAY VIEWS OF THE LEFT HAND and wrist 06/08/2023 12:54 am COMPARISON: None. HISTORY: ORDERING SYSTEM PROVIDED HISTORY: Reason for Exam: pain FINDINGS: No fracture or dislocation. No radiopaque foreign body. IMPRESSION: No fracture or dislocation. Interpreted by: Mars Sevilla Preliminary Report By: Mars Sevilla Electronically signed By Mars Sevilla Dictated Date: 06/08/2023 12:55:30 AM Prelim Date: 06/08/2023 12:59:24 AM Sign Date: 06/08/2023 12:59:24 AM Ordering Provider: [facility] ([place]) XR RIBS 2 VIEWS RIGHTon - XR RIBS 2 VIEWS RIGHT ORIGINAL EXAMINATION: 4 XRAY VIEWS OF THE RIGHT RIBS 06/08/2023 12:54 am COMPARISON: Chest x-ray on 06/08/2023 HISTORY: ORDERING SYSTEM PROVIDED HISTORY: Reason for Exam: pain FINDINGS: No displaced rib fracture. Included thoracic structures are unremarkable. Degenerative changes of the spine. No radiopaque retained foreign body. IMPRESSION: No displaced rib fracture. I have personally reviewed the images of this examination, and agree with the resident's findings and interpretation. Interpreted by: Harsh Garcia MD Preliminary Report By: Sal Huggins Electronically signed By Harsh Garcia MD Dictated Date: 06/08/2023 12:56:12 AM Prelim Date: 06/08/2023 12:57:29 AM Sign Date: 06/08/2023 1:00:33 AM Ordering Provider: [facility] ([place]) XR SPINE LUMBAR AP/LATon XR SPINE LUMBAR AP/LAT ORIGINAL EXAMINATION: XRAY VIEWS OF THE LUMBAR SPINE 06/08/2023 12:55 am COMPARISON: CT abdomen and pelvis on 10/14/2022 HISTORY: ORDERING SYSTEM PROVIDED HISTORY: Reason for Exam: pain Injury. FINDINGS: There are 5 lumbar vertebrae. The lumbar spine alignment is normal. Vertebral bodies are normal in height with no fracture. The intervertebral disc spaces are maintained. There is mild endplate degenerative spur formation at L2-L3 and L3-L4. Facet joint alignment is normal. There is no spondylolysis. The sacroiliac joints are normal. IMPRESSION: No fracture or subluxation of lumbar spine. Mild degenerative disc disease. Interpreted by: Harsh Garcia MD Preliminary Report By: Harsh Garcia MD Electronically signed By Harsh Garcia MD Dictated Date: 06/08/2023 12:56:18 AM Prelim Date: 06/08/2023 12:58:02 AM Sign Date: 06/08/2023 12:58:02 AM Ordering Provider: MICHELLE RIZO [facility] ([place]) XR FOOT MINIMUM 3 VIEWS RIANA Pond 06-05-2023 XR FOOT MINIMUM 3 VIEWS RIGHT ORIGINAL EXAMINATION: THREE XRAY VIEWS OF THE RIGHT FOOT 06/05/2023 9:20 pm COMPARISON: None. HISTORY: ORDERING SYSTEM PROVIDED HISTORY: Reason for Exam: pain FINDINGS: There is a small plantar spur. There is no gross radiopaque foreign body. Joint spaces and articular surfaces are preserved and in gross anatomic alignment. There is no acute cortical discontinuity. IMPRESSION: 1. There is no acute fracture or dislocation. Interpreted by: Sam Tavera Preliminary Report By: Sam Tavera Electronically signed By Sam Tavera Dictated Date: 06/05/2023 9:31:08 PM Prelim Date: 06/05/2023 9:34:39 PM Sign Date: 06/05/2023 9:34:39 PM Ordering Provider: MU SERVIN [facility] ([place]) .Auto Diffon 03-12-2023 Basophil, Absolute 0.1 10 3/mcL Normal 0.0-0.2 [facility] ([place]) Comment on above: Performed By: #### C BC, PRO, BMP, GFR, TROPHS, LIA, LORE, ANEU #### [address] [address] Basophils/100 WBC (Bld) 0.9 % Normal 0.0-2.5 [facility] ([place]) Comment on above: Performed By: #### C BC, PRO, BMP, GFR, TROPHS, W, LORE, ANEU #### [address] [address] Eosinophil, Absolute 0.4 10 3/mcL Normal 0.0-0.4 [facility] ([place]) Comment on above: Performed By: #### C BC, PRO, BMP, GFR, TROPHS, MDW, LORE, ANEU #### [address] [address] Eosinophils/100 WBC (Bld) 3.7 % Normal 0.0-7.0 [facility] ([place]) Comment on above: Performed By: #### C BC, PRO, BMP, GFR, TROPHS, MDW, ADIFF, ANEU #### [address] [address] Lymphocyte, Absolute 3.5 10 3/mcL Normal 0.8-3.9 [facility] ([place]) Comment on above: Performed By: #### C BC, PRO, BMP, GFR, TROPHS, MDW, ADIFF, ANEU #### [address] [address] Lymphocytes/100 WBC (Bld) 31.9 % Normal 10.0-50.0 [facility] ([place]) Comment on above: Performed By: #### C BC, PRO, BMP, GFR, TROPHS, MDW, ADIFF, ANEU #### [address] [address] Monocyte, Absolute 0.6 10 3/mcL Normal 0.2-1.0 [facility] ([place]) Comment on above: Performed By: #### C BC, PRO, BMP, GFR, TROPHS, MDW, ADIFF, ANEU #### [address] [address] Monocytes/100 WBC (Bld) 5.2 % Normal 1.7-13.0 [facility] ([place]) Comment on above: Performed By: #### C BC, PRO, BMP, GFR, TROPHS, MDW, ADIFF, ANEU #### [address] [address] Neutrophils/100 WBC (Bld) 58.3 % Normal 37.0-80.0 [facility] ([place]) Comment on above: Performed By: #### C BC, PRO, BMP, GFR, TROPHS, MDW, ADIFF, ANEU #### [address] [address] .GFRon 03-12-2023 GFR 92 ml/min/1.73sqm Normal [facility] ([place]) Comment on above: Result Comment: GFR Population mean for , Non- Americans Ages 20-29 = 116 mL/min/1.73 sq.m. Ages 30-39 = 107 mL/min/1.73 sq.m. Ages 40-49 = 99 mL/min/1.73 sq.m. Ages 50-59 = 93 mL/min/1.73 sq.m. Ages 60-69 = 85 mL/min/1.73 sq.m. Ages 70+ = 75 mL/min/1.73 sq.m. Chronic Kidney Disease: Less than 60 mL/min/1.73 square meters End Stage Renal Disease: Less than 15 mL/min/1.73 square meters Performed By: #### C BC, PRO, BMP, GFR, TROPHS, MDW, ADIFF, ANEU #### [address] [address] GFR Non- 76 ml/min/1.73sqm Normal [facility] ([place]) Comment on above: Result Comment: GFR Population mean for , Non- Americans Ages 20-29 = 116 mL/min/1.73 sq.m. Ages 30-39 = 107 mL/min/1.73 sq.m. Ages 40-49 = 99 mL/min/1.73 sq.m. Ages 50-59 = 93 mL/min/1.73 sq.m. Ages 60-69 = 85 mL/min/1.73 sq.m. Ages 70+ = 75 mL/min/1.73 sq.m. Chronic Kidney Disease: Less than 60 mL/min/1.73 square meters End Stage Renal Disease: Less than 15 mL/min/1.73 square meters Performed By: #### C BC, PRO, BMP, GFR, TROPHS, MDW, ADIFF, ANEU #### [address] [address] .MDWon 03-12-2023 Monocyte Distribution Width 17.71 Normal 0.00-20.00 [facility] ([place]) Comment on above: Result Comment: For ED adult patients suspected of sepsis, MDW<=20.0 does not rule out sepsis or risk of sepsis Performed By: #### C BC, PRO, BMP, GFR, TROPHS, MDW, ADIFF, ANEU #### [address] [address] .NEUABSon 03-12-2023 Neutrophil, Absolute 6.4 10 3/mcL High 2.9-6.2 [facility] ([place]) Comment on above: Performed By: #### C BC, PRO, BMP, GFR, TROPHS, MDW, ADIFF, ANEU #### [address] [address] BMPon 03-12-2023 BUN/Creatinine Ratio 14 ratio Normal 7-27 [facility] ([place]) Comment on above: Performed By: #### C BC, PRO, BMP, GFR, TROPHS, MDW, ADIFF, ANEU #### [address] [address] Calcium [Mass/Vol] 8.8 mg/dL Normal 8.4-10.2 [facility] ([place]) Comment on above: Performed By: #### C BC, PRO, BMP, GFR, TROPHS, MDW, ADIFF, ANEU #### [address] [address] Chloride [Moles/Vol] 102 mmol/L Normal 98-107 [facility] ([place]) Comment on above: Performed By: #### C BC, PRO, BMP, GFR, TROPHS, MDW, ADIFF, ANEU #### [address] [address] CO2 [Moles/Vol] 31 mmol/L High 22-29 [facility] ([place]) Comment on above: Performed By: #### C BC, PRO, BMP, GFR, TROPHS, MDW, ADIFF, ANEU #### [address] [address] Creatinine [Mass/Vol] 1.06 mg/dL Normal 0.70-1.30 [facility] ([place]) Comment on above: Performed By: #### C BC, PRO, BMP, GFR, TROPHS, MDW, ADIFF, ANEU #### [address] [address] Electrolyte Balance 7.0 mEq/L Normal 4.0-15.0 [facility] ([place]) Comment on above: Performed By: #### C BC, PRO, BMP, GFR, TROPHS, MDW, ADIFF, ANEU #### [address] [address] Glucose [Mass/Vol] 139 mg/dL High 70-105 [facility] ([place]) Comment on above: Performed By: #### C BC, PRO, BMP, GFR, TROPHS, MDW, ADIFF, ANEU #### [address] [address] Potassium [Moles/Vol] 3.9 mmol/L Normal 3.5-5.1 [facility] ([place]) Comment on above: Performed By: #### C BC, PRO, BMP, GFR, TROPHS, MDW, ADIFF, ANEU #### [address] [address] Sodium [Moles/Vol] 140 mmol/L Normal 136-145 [facility] ([place]) Comment on above: Performed By: #### C BC, PRO, BMP, GFR, TROPHS, MDW, ADIFF, ANEU #### [address] [address] Urea nitrogen [Mass/Vol] 15 mg/dL Normal 7-18 [facility] ([place]) Comment on above: Performed By: #### C BC, PRO, BMP, GFR, TROPHS, MDW, ADIFF, ANEU #### [address] [address] CBCon 03-12-2023 Erythrocyte distribution width (RBC) [Ratio] 14.4 % Normal 11.5-14.5 [facility]) Comment on above: Performed By: #### C BC, PRO, BMP, GFR, TROPHS, MDW, ADIFF, ANEU #### [address] [address] Hematocrit (Bld) [Volume fraction] 41.1 % Low 42.0-52.0 [facility] ([place]) Comment on above: Performed By: #### C BC, PRO, BMP, GFR, TROPHS, MDW, ADIFF, ANEU #### [address] [address] Hgb 13.6 G/dL Low 14.0-18.0 [facility] ([place]) Comment on above: Performed By: #### C BC, PRO, BMP, GFR, TROPHS, MDW, ADIFF, ANEU #### [address] [address] MCH (RBC) [Entitic mass] 26.8 pg Low 27.0-31.2 [facility] ([place]) Comment on above: Performed By: #### C BC, PRO, BMP, GFR, TROPHS, MDW, ADIFF, ANEU #### [place] [address] MCHC 33.1 G/dL Normal 31.8-35.4 [facility] ([place]) Comment on above: Performed By: #### C BC, PRO, BMP, GFR, TROPHS, MDW, ADIFF, ANEU #### [address] [address] MCV (RBC) [Entitic vol] 81.0 fL Normal 80.0-94.0 [facility] ([place]) Comment on above: Performed By: #### C BC, PRO, BMP, GFR, TROPHS, MDW, ADIFF, ANEU #### [address] [address] Platelet 336 10 3/mcL Normal 130-400 [facility] ([place]) Comment on above: Performed By: #### C BC, PRO, BMP, GFR, TROPHS, MDW, ADIFF, ANEU #### [address] [address] Platelet mean volume (Bld) [Entitic vol] 7.3 fL Low 7.4-10.4 [facility] ([place]) Comment on above: Performed By: #### C BC, PRO, BMP, GFR, TROPHS, MDW, ADIFF, ANEU #### [address] [address] RBC 5.08 10 6/mcL Normal 4.04-6.13 [facility] ([place]) Comment on above: Performed By: #### C BC, PRO, BMP, GFR, TROPHS, W, LORE, ANEU #### [place] [address] [place], [place] [address] WBC 11.0 10 3/mcL High 4.6-10.8 [facility] ([place]) Comment on above: Performed By: #### C BC, PRO, BMP, GFR, TROPHS, W, ADIFF, ANEU #### [place] [address] [place], [place] [address] LABORATORYOrdered By: SYSTEM SYSTEM on 03-12-2023 Troponin I.cardiac DL <= 0.01 ng/mL [Mass/Vol] ng/L Normal 0.0 - 76.2 ng/L AO ADM SS Basophil, Absolute 0.1 103/mcL Normal 0.0 - 0.2 10^3/mcL AO Workflow SS Basophils/100 WBC (Bld) 0.9 % Normal 0.0 - 2.5 % AO Workflow SS Calcium [Mass/Vol] 8.8 mg/dL Normal 8.4 - 10. 2 mg/dL AO ADM SS Chloride [Moles/Vol] 102 mmol/L Normal 98 - 10 7 mmol/L AO ADM SS CO2 [Moles/Vol] 31 mmol/L High 22 - 29 mmol/L AO ADM SS Creatinine [Mass/Vol] 1.06 mg/dL Normal 0.70 - 1.30 mg/dL AO ADM SS Electrolyte Balance 7.0 mEq/L Normal 4.0 - 15 .0 mEq/L AO ADM SS Eosinophil, Absolute 0.4 103/mcL Normal 0.0 - 0 .4 10^3/mcL AO Workflow SS Eosinophils/100 WBC (Bld) 3.7 % Normal 0.0 - 7.0 % AO Workflow SS Erythrocyte distribution width (RBC) [Ratio] 14.4 % Normal 11.5 - 14.5 % AO Workflow SS GFR/1.73 sq M.predicted among blacks MDRD (S/P/Bld) [Vol rate/Area] 92 ml/min/1.73sqm Invalid Interpretation Code AO Chemistry S Comment on above: Interpretive Data: GFR Population mean for , Non- Americans Ages 20-29 = 116 mL/min/1.73 sq.m. Ages 30-39 = 107 mL/min/1.73 sq.m. Ages 40-49 = 99 mL/min/1.73 sq.m. Ages 50-59 = 93 mL/min/1.73 sq.m. Ages 60-69 = 85 mL/min/1.73 sq.m. Ages 70+ = 75 mL/min/1.73 sq.m. Chronic Kidney Disease: Less than 60 mL/min/1.73 square meters End Stage Renal Disease: Less than 15 mL/min/1.73 square meters GFR/1.73 sq M.predicted among non-blacks MDRD (S/P/Bld) [Vol rate/Area] 76 ml/min/1.73sqm Invalid Interpretation Code AO Chemistry S Comment on above: Interpretive Data: GFR Population mean for , Non- Americans Ages 20-29 = 116 mL/min/1.73 sq.m. Ages 30-39 = 107 mL/min/1.73 sq.m. Ages 40-49 = 99 mL/min/1.73 sq.m. Ages 50-59 = 93 mL/min/1.73 sq.m. Ages 60-69 = 85 mL/min/1.73 sq.m. Ages 70+ = 75 mL/min/1.73 sq.m. Chronic Kidney Disease: Less than 60 mL/min/1.73 square meters End Stage Renal Disease: Less than 15 mL/min/1.73 square meters Glucose [Mass/Vol] 139 mg/dL High 70 - 105 mg/dL AO ADM SS Hematocrit (Bld) [Volume fraction] 41.1 % Low 42.0 - 52.0 % AO Workflow SS Hemoglobin (Bld) [Mass/Vol] 13.6 G/dL Low 14.0 - 18.0 G/dL AO Workflow SS Lymphocyte, Absolute 3.5 103/mcL Normal 0.8 - 3 .9 10^3/mcL AO Workflow SS Lymphocytes/100 WBC (Bld) 31.9 % Normal 10.0 - 50.0 % AO Workflow SS MCH (RBC) [Entitic mass] 26.8 pg Low 27.0 - 31.2 pg AO Workflow SS MCHC 33.1 G/dL Normal 31.8 - 35.4 G/dL AO Workflow SS MCV (RBC) [Entitic vol] 81.0 fL Normal 80.0 - 94.0 fL AO Workflow SS Monocyte distribution width Auto (Bld) [Entitic vol] 17.71 1 Normal 0.00 - 20.00 AO Workflow SS Comment on above: Result Comment: For ED adult patients suspected of sepsis, MDW<=20.0 does not rule out sepsis or risk of sepsis Monocyte, Absolute 0.6 103/mcL Normal 0.2 - 1.0 10^3/mcL AO Workflow SS Monocytes/100 WBC (Bld) 5.2 % Normal 1.7 - 13.0 % AO Workflow SS Neutrophil, Absolute 6.4 103/mcL High 2.9 - 6 .2 10^3/mcL AO Workflow SS Neutrophils/100 WBC (Bld) 58.3 % Normal 37.0 - 80.0 % AO Workflow SS Platelet mean volume (Bld) [Entitic vol] 7.3 fL Low 7.4 - 10.4 fL AO Workflow SS Platelets (Bld) [#/Vol] 336 103/mcL Normal 130 - 400 10^3/mcL AO Workflow SS Potassium [Moles/Vol] 3.9 mmol/L Normal 3.5 - 5.1 mmol/L AO ADM SS RBC (Bld) [#/Vol] 5.08 106/mcL Normal 4.04 - 6.1 3 10^6/mcL AO Workflow SS Sodium [Moles/Vol] 140 mmol/L Normal 136 - 145 mmol/L AO ADM SS Troponin I.cardiac DL <= 0.01 ng/mL [Mass/Vol] 5.4 ng/L Normal 0.0 - 76.2 ng/L AO ADM SS Urea nitrogen [Mass/Vol] 15 mg/dL Normal 7 - 18 mg/dL AO ADM SS Urea nitrogen/Creatinine [Mass ratio] 14 ratio Normal 7 - 27 ratio AO ADM SS WBC (Bld) [#/Vol] 11.0 103/mcL High 4.6 - 10.8 10^3/mcL AO Workflow SS TROPHSon 03-12-2023 Troponin I High Sensitivity <4.0 Normal 0.0-76.2 [facility] ([place]) Comment on above: Performed By: #### [facility] #### [address] [address] Troponin I High Sensitivity 5.4 ng/L Normal 0.0-76.2 [facility] ([place]) Comment on above: Performed By: #### C BC, PRO, BMP, GFR, ARELY, LIA, LORE, ANEU #### [place] [address] [place], [place] [address] XR CHEST 1 VIEWon 03-12-2023 XR CHEST 1 VIEW ORIGINAL EXAMINATION: ONE XRAY VIEW OF THE CHEST03/12/2023 8:21 pm COMPARISON: Chest x-ray 04/08/2022, CT abdomen and pelvis 10/14/2022 HISTORY: ORDERING SYSTEM PROVIDED HISTORY: Reason for Exam: chest pain FINDINGS: No focal consolidation or pulmonary edema. No pleural effusion or visible pneumothorax. Cardiomediastinal contours are within normal limits. Degenerative changes of the visible spine. IMPRESSION: No acute cardiopulmonary process. I have personally reviewed the images of this examination and agree with the resident's findings and interpretation. Interpreted by: Eldon Watkins MD Preliminary Report By: Otis Norman Electronically signed By Eldon Watkins MD Dictated Date: 03/12/2023 8:30:08 PM Prelim Date: 03/12/2023 8:31:27 PM Sign Date: 03/12/2023 8:48:16 PM Ordering Provider: CARMEN Bryan [facility] ([place]) Post-vasectomy sperm analysi sOrdered By: Koko Orantes on 02-05-2023 Semen analysis p vasectomy panel (Mame) PATH REVIEW ONLY [facility] Review by pathologistOrdered By: Koko Orantes on 02-05-2023 Pathologist review [place] (Unsp spec) [Interp] Reviewed [facility] Comment on above: Previous reported re sult: Will follow Edited by: RGOOD on 02/10/23:0934Degenerating spermatozoa present.Syd Ozuna D.O. 02/10/23 AMENDED REPORT 02/10/23 0934 PATH REV previously reported as: Will follow Absolute lymphocyte countOrd ered By: Koko Orantes on 01-23-2023 Lymphocytes Auto (Unsp spec) [#/Vol] 2.44 10*3/uL 0.83-4.51 [facility] Basophil percentageOrdered B y: Koko Orantes on 01-23-2023 Basophils/100 WBC (Bld) 0.6 % 0-1 [facility] Bilirubin [Mass/Vol] 0.40 mg/dL 0.20-1.00 [facility] Comment on above: For patients on eltr ombopag therapy, use of Dimension Corona TBIL is not recommended. Chloride [Moles/Vol] 105 mmol/L 98-107 [facility] Cholesterol [Mass/Vol] 146 mg/dL <200 [facility] Comment on above: <200 mg/dL Desirable 200-240 mg/dL Borderline >240 mg/dL High Risk Eosinophils/100 WBC (Bld) 2.6 % 0-5 [facility] Glucose [Mass/Vol] 104 mg/dL 74-106 [facility] Comment on above: Fasting Glucose resu lt from 100 to 125 mg/dL suggests IMPAIRED HOMEOSTASIS per A.D.A. criteria. Neutrophils (Bld) [#/Vol] 5.5 10*3/uL 2.0-7.7 [facility] Neutrophils/100 WBC (Bld) 63.6 % 47-70 [facility] Potassium [Moles/Vol] 3.8 mmol/L 3.5-5.1 [place] Protein [Mass/Vol] 7.4 g/dL 6.4-8.2 [facility] Sodium [Moles/Vol] 135 mmol/L 136-145 [facility] Testosterone [Mass/Vol] 127 ng/dL 264-916 [facility] Comment on above: Adult male reference interval is based on a population ofhealthy nonobese males (BMI <30) between 19 and 39 yearsold. Jesus et.al. JCEM 2017,102;5134-0454. PMID:[id number]. Triglyceride [Mass/Vol] 119 mg/dL <199 [facility] Comment on above: The drugs N-Acetylcy steine and Metamizole may falsely depress this assay.Serum Triglycerides Reference Interval Normal <150 mg/dL Borderline high 150 - 199 mg/dL High 200 - 499 mg/dL Very High > or = 500 mg/dL WBC (Bld) [#/Vol] 8.6 10*3/uL 4.4-11.0 [facility] Blood erythrocytes count (nu mber/volume)Ordered By: Koko Orantes on 01-23-2023 RBC (Bld) [#/Vol] 5.10 10*6/uL 4.6-6.2 [facility] Blood hemoglobin measurement (mass/volume)Ordered By: Koko Orantes on 01-23-2023 Hemoglobin (Bld) [Mass/Vol] 13.8 g/dL 13.0-16.5 [facility] Blood lymphocytes/100 leukoc ytesOrdered By: Koko Orantes on 01-23-2023 Lymphocytes/100 WBC (Bld) 28.3 % 19-41 [facility] Blood monocytes/100 leukocyt esOrdered By: Koko Orantes on 01-23-2023 Monocytes/100 WBC (Bld) 4.6 % 0-10 [facility] Blood platelet mean volumeOr dered By: Koko Orantes on 01-23-2023 Platelet mean volume (Bld) [Entitic vol] 9.2 fL 6.2-12.0 [facility] Determination of erythrocyte mean corpuscular volume (MCV)Ordered By: Koko Orantes on 01-23-2023 MCV (RBC) [Entitic vol] 80.8 fL 80-94 [facility] Free testosterone percentage Ordered By: Koko Orantes on 01-23-2023 Testosterone Free/Testosterone.tota l [Mass fraction] 3.42 % 1.50-4.20 [facility] Comment on above: Performed at: [address] [id number] Director: Tadeo Gates PhD, Phone: [phone] at: [facility] Lab[address] [id number] Director: Lobo Turner MD, Phone: [phone] Hematocrit Auto (Bld) [Volum e fraction]Ordered By: Koko Orantes on 01-23-2023 Hematocrit (Bld) [Volume fraction] 41.2 % 40-54 [facility] Laboratory - Chemistry and C hemistry - challengeOrdered By: Koko Orantes on 01-23-2023 ALP [Catalytic activity/Vol] 131 U/L 45-117 [facility] ALT [Catalytic activity/Vol] 56 U/L 16-61 [facility] CO2 [Moles/Vol] 24.0 mmol/L 21.0-32.0 [facility] Globulin (S) [Mass/Vol] 4.0 g/dL 2.2-4.2 [facility] Urea nitrogen/Creatinine [Mass ratio] 13.4 mg/mg 10-20 [facility] Laboratory - Hematology and Cell countsOrdered By: Koko Orantes on 01-23-2023 Erythrocyte distribution width (RBC) [Entitic vol] 39.1 fL 35.1-43.9 [facility] Erythrocyte distribution width (RBC) [Ratio] 13.5 % 11.6-14.6 [facility] Immature granulocytes/100 WBC (Bld) 0.300 % 0.0-0.9 [facility] Comment on above: IG% - Immature Granu locytes (promyelocytes, myelocytes and metamyelocytes) > 1% indicates that a LEFT SHIFT is Present. MCH (RBC) [Entitic mass] 27.1 pg 27.0-32.0 [facility] Nucleated RBC/100 WBC (Bld) [Ratio] 0 % 0-5 [facility] MCHC Auto (RBC) [Mass/Vol]Or dered By: Koko Orantes on 01-23-2023 MCHC (RBC) [Mass/Vol] 33.5 g/dL 32-36 [place] No Panel InformationOrdered By: Koko Orantes on 01-23-2023 Estimated GFR (MDRD) Amer 118 mL/min >60 [facility] Comment on above: GFR Calc Estimated GFR (MDRD) Non-Af Amer 97 mL/min >60 [facility] Comment on above: Non- GFR Calc Prostate Specific Antigen Screen 0.80 ng/mL 0.00-4.00 [facility] Comment on above: This test was perfor med using the TPSA assay method for theGLIIF chemistry system. Values obtained with differentassay methods cannot be used interchangably.When changing PSA assays in the course of monitoring apatient, additional sequential testing should be carriedout to confirm baseline values. Thyroid Stimulating Hormone (TSH) 2.70 uIU/mL 0.358-3.74 [facility] Platelets bldOrdered By: Amina Orantes on 01-23-2023 Platelets (Bld) [#/Vol] 351 10*3/uL 150-450 [facility] Serum or plasma albumin paramjit urement (mass/volume)Ordered By: Koko Orantes on 01-23-2023 Albumin [Mass/Vol] 3.4 g/dL 3.2-5.0 [facility] Serum or plasma albumin/glob ulin mass ratioOrdered By: Koko Orantes on 01-23-2023 Albumin/Globulin [Mass ratio] 0.8 {ratio} 0.9-2.4 [facility] Serum or plasma calcium paramjit urement (mass/volume)Ordered By: Koko Orantes on 01-23-2023 Calcium [Mass/Vol] 8.5 mg/dL 8.5-10.1 [facility] Serum or plasma cholesterol in HDL measurement (mass/volume)Ordered By: Koko Orantes on 01-23-2023 Cholesterol in HDL [Mass/Vol] 32 mg/dL >40 [facility] Comment on above: The drugs N-Acetylcy steine and Metamizole may falsely depress this assay. Reference Range HDL <40 mg/dL Low HDL Cholesterol HDL >or= 60 mg/dL High HDL Cholesterol Serum or plasma cholesterol in VLDL measurement (mass/volume)Ordered By: Koko Orantes on 01-23-2023 Cholesterol in VLDL [Mass/Vol] 24 mg/dL 5-40 [facility] Serum or plasma creatinine m easurement (mass/volume)Ordered By: Koko Orantes on 01-23-2023 Creatinine [Mass/Vol] 0.89 mg/dL 0.70-1.30 [place] Comment on above: The validity of the calculated GFR & GFRAA in patients over 70 years has not been determined. Clinical correlation is essential. Serum or plasma low density lipoprotein (LDL) cholesterol measurement (mass/volume)Ordered By: Koko Orantes on 01-23-2023 Cholesterol in LDL [Mass/Vol] 90 mg/dL 0-130 [facility] Serum or plasma testosterone free measurement (mass/volume)Ordered By: Koko Orantes on 01-23-2023 Testosterone Free [Mass/Vol] 4.34 ng/dL 5.00-21.00 [facility] Serum or plasma urea nitroge n measurement (mass/volume)Ordered By: Koko Orantes on 01-23-2023 Urea nitrogen [Mass/Vol] 12 mg/dL 7-18 [facility] Thin prep Papanicolaou smear with manual screeningOrdered By: Koko Orantes on 01-23-2023 Thin prep Papanicolaou smear with manual screening 24 U/L 15-37 [facility] Thin prep Papanicolaou smear with manual screening 6 5-15 [facility] SURGICAL PATHOLOGYon 023 Case Report Surgical Pathology Report Case: [id number] Authorizing Provider: Guerline Andersen MD Collected: 11/26/2022 12:04 PM Ordering Location: Ambulatory Surgery Received: 11/26/2022 01:17 PM Pathologist: Kristopher Reza MD Specimens: A) - DUODENUM BIOPSY, Duodenal bx B) - ANTRUM (STOMACH) BIOPSY, Antral bx h/h C) - ESOPHAGUS LOWER BIOPSY, Distal esophageal bx [facility] Diagnosis Comment A: The finding of patchy intraepithelial lymphocytosis is not specific, and may be present in many conditions such as infection, drug reaction, celiac disease, non-gluten food sensitivity, autoimmune diseases, bacterial overgrowth, morbid obesity, immunodeficiency disorders, inflammatory bowel disease, and change secondary to local inflammation. Clinical correlation is necessary for a definitive diagnosis. [facility] FINAL DIAGNOSIS A. Duodenum, biopsy: - Duodenal mucosa with preserved villous architecture and a mild increase in intraepithelial lymphocytes; see comment. B. Stomach, antrum, biopsy: - Gastric antral mucosa with reactive gastropathy. - No evidence of Helicobacter pylori organisms on H&E stain. C. Esophagus, distal, biopsy: - Squamocolumnar junctional mucosa with mild chronic inflammation. - Negative for granulomas and dysplasia. [facility] Gross Description A. DUODENUM BIOPSY Received in formalin is one piece of bronson, soft tissue measuring 0.7 x 0.2 x 0.1 cm. Totally submitted in cassette A1. B. ANTRUM (STOMACH) BIOPSY Received in formalin is one piece of bronson, soft tissue measuring 0.4 x 0.3 x 0.2 cm. Totally submitted in cassette B1. C. ESOPHAGUS LOWER BIOPSY Received in formalin are two pieces of bronson, soft tissue aggregating to 0.5 x 0.2 x 0.2 cm. Totally submitted in cassette C1. Gross examination performed at [facility], [facility] [place] [address] JS 11/26/2022 9:14 PM [facility] Performing Lab Diagnostic interpretation performed at [place] [address] [address] [facility] [address] CLIA# [id number] Strategic Marketing Leader: Juancarlos Srivastava M.D. [facility] COLONOSCOPY DIAGNOSTICon [facility] EGD DIAGNOSTICon 11-26-2022 [facility] Absolute lymphocyte countOrd ered By: Patrick Moreno on 11-20-2022 Lymphocytes Auto (Unsp spec) [#/Vol] 4.03 10*3/uL 0.83-4.51 [facility] Basophil percentageOrdered B y: Patrick Moreno on 11-20-2022 Basophil percentage 0 SEEN /hpf 0-5 [facility] Basophils/100 WBC (Bld) 0.5 % 0-1 [facility] Bilirubin [Mass/Vol] 0.20 mg/dL 0.20-1.00 [facility] Comment on above: For patients on eltr ombopag therapy, use of Dimension [place] TBIL is not recommended. Chloride [Moles/Vol] 106 mmol/L 98-107 [facility] Eosinophils/100 WBC (Bld) 3.1 % 0-5 [facility] Glucose [Mass/Vol] 121 mg/dL 74-106 [facility] Comment on above: Fasting Glucose resu lt from 100 to 125 mg/dL suggests IMPAIRED HOMEOSTASIS per A.D.A. criteria. Neutrophils (Bld) [#/Vol] 6.8 10*3/uL 2.0-7.7 [facility] Neutrophils/100 WBC (Bld) 57.1 % 47-70 [facility] Potassium [Moles/Vol] 3.6 mmol/L 3.5-5.1 [place] Protein [Mass/Vol] 7.4 g/dL 6.4-8.2 [facility] Sodium [Moles/Vol] 139 mmol/L 136-145 [facility] WBC (Bld) [#/Vol] 11.8 10*3/uL 4.4-11.0 [facility] Bilirubin Test strip Ql (U)O rdered By: Patrick Moreno on 11-20-2022 Bilirubin Ql (U) Negative Negative [facility] Blood erythrocytes count (nu mber/volume)Ordered By: Patrick Moreno on 11-20-2022 RBC (Bld) [#/Vol] 5.14 10*6/uL 4.6-6.2 [facility] Blood hemoglobin measurement (mass/volume)Ordered By: Patrick Moreno on 11-20-2022 Hemoglobin (Bld) [Mass/Vol] 13.7 g/dL 13.0-16.5 [facility] Blood lymphocytes/100 leukoc ytesOrdered By: Patrick Moreno on 11-20-2022 Lymphocytes/100 WBC (Bld) 34.2 % 19-41 [facility] Blood monocytes/100 leukocyt esOrdered By: Patrick Moreno on 11-20-2022 Monocytes/100 WBC (Bld) 4.7 % 0-10 [facility] Blood platelet mean volumeOr dered By: Patrick Moreno on 11-20-2022 Platelet mean volume (Bld) [Entitic vol] 9.6 fL 6.2-12.0 [facility] Determination of erythrocyte mean corpuscular volume (MCV)Ordered By: Patrick Moreno on 11-20-2022 MCV (RBC) [Entitic vol] 83.5 fL 80-94 [facility] Hematocrit Auto (Bld) [Volum e fraction]Ordered By: Patrick Moreno on 11-20-2022 Hematocrit (Bld) [Volume fraction] 42.9 % 40-54 [facility] Ketones Test strip Ql (U)Ord ered By: Patrick Moreno on 11-20-2022 Ketones Ql (U) Negative Negative [facility] Laboratory - Chemistry and C hemistry - challengeOrdered By: Patrick Moreno on 11-20-2022 ALP [Catalytic activity/Vol] 141 U/L 45-117 [facility] ALT [Catalytic activity/Vol] 29 U/L 16-61 [facility] CO2 [Moles/Vol] 26.0 mmol/L 21.0-32.0 [facility] Globulin (S) [Mass/Vol] 4.0 g/dL 2.2-4.2 [facility] Lipase [Catalytic activity/Vol] 27 U/L 13-75 [facility] Comment on above: Please note:LIPASE r evised reference range effective 22. New Lipase methodology. Expected to produce lower values than the previous assay method. NEW Reference Range: 13 - 75 U/L Urea nitrogen/Creatinine [Mass ratio] 16.5 mg/mg 10-20 [facility] Laboratory - Hematology and Cell countsOrdered By: Patrick Moreno on 11-20-2022 Erythrocyte distribution width (RBC) [Entitic vol] 41.3 fL 35.1-43.9 [facility] Erythrocyte distribution width (RBC) [Ratio] 13.7 % 11.6-14.6 [facility] Immature granulocytes/100 WBC (Bld) 0.400 % 0.0-0.9 [facility] Comment on above: IG% - Immature Granu locytes (promyelocytes, myelocytes and metamyelocytes) > 1% indicates that a LEFT SHIFT is Present. MCH (RBC) [Entitic mass] 26.7 pg 27.0-32.0 [facility] Nucleated RBC/100 WBC (Bld) [Ratio] 0 % 0-5 [facility] MCHC Auto (RBC) [Mass/Vol]Or dered By: Patrick Moreno on 11-20-2022 MCHC (RBC) [Mass/Vol] 31.9 g/dL 32-36 [place] Mucus LM Ql (Urine sed)Order ed By: Patrick Moreno on 11-20-2022 Mucus Ql (Urine sed) RARE /hpf [facility] Nitrite Test strip Ql (U)Ord ered By: Patrick Moreno on 11-20-2022 Nitrite Ql (U) Negative Negative [facility] No Panel InformationOrdered By: Patrick Moreno on 11-20-2022 Estimated Creatinine Clearance Calc 89.91 ml/min [facility] Estimated GFR (MDRD) Amer 107 mL/min >60 [facility] Comment on above: GFR Calc Estimated GFR (MDRD) Non-Af Amer 89 mL/min >60 [facility] Comment on above: Non- GFR Calc Platelets bldOrdered By: Jessica Moreno on 11-20-2022 Platelets (Bld) [#/Vol] 385 10*3/uL 150-450 [facility] Protein Test strip Ql (U)Ord ered By: Patrick Moreno on 11-20-2022 Protein Ql (U) 15 mg/dl Negative [facility] Serum or plasma albumin paramjit urement (mass/volume)Ordered By: Patrick Moreno on 11-20-2022 Albumin [Mass/Vol] 3.4 g/dL 3.2-5.0 [facility] Serum or plasma albumin/glob ulin mass ratioOrdered By: Patrick Moreno on 11-20-2022 Albumin/Globulin [Mass ratio] 0.8 {ratio} 0.9-2.4 [facility] Serum or plasma calcium paramjit urement (mass/volume)Ordered By: Patrick Moreno on 11-20-2022 Calcium [Mass/Vol] 8.7 mg/dL 8.5-10.1 [facility] Serum or plasma creatinine m easurement (mass/volume)Ordered By: Patrick Moreno on 11-20-2022 Creatinine [Mass/Vol] 0.97 mg/dL 0.70-1.30 [place] Comment on above: The validity of the calculated GFR & GFRAA in patients over 70 years has not been determined. Clinical correlation is essential. Serum or plasma urea nitroge n measurement (mass/volume)Ordered By: Patrick Moreno on 11-20-2022 Urea nitrogen [Mass/Vol] 16 mg/dL 7-18 [facility] Squamous epithelial cells de tection in urine sediment by light microscopyOrdered By: Patrick Moreno on 11-20-2022 Epithelial cells.squamous LM Ql (Urine sed) 0 SEEN /hpf 0-5 [facility] Thin prep Papanicolaou smear with manual screeningOrdered By: Patrick Moreno on 11-20-2022 Thin prep Papanicolaou smear with manual screening 13 U/L 15-37 [facility] Thin prep Papanicolaou smear with manual screening 7 5-15 [facility] Urine blood detectionOrdered By: Patrick Moreno on 11-20-2022 RBC Ql (U) Negative Negative [facility] RBC Ql (U) 0 SEEN /hpf 0-5 [facility] Urine clarityOrdered By: Jessica Moreno on 11-20-2022 Clarity (U) Clear Clear [facility] Urine color determinationOrd ered By: Patrick Moreno on 11-20-2022 Color (U) Yellow Yellow [facility] Urine glucose detectionOrder ed By: Patrick Moreno on 11-20-2022 Glucose Ql (U) Normal mg/dl Normal [facility] Urine leukocyte esterase det ection by dipstickOrdered By: Patrick Moreno on 11-20-2022 Leukocyte esterase Test strip Ql (U) Negative Negative [facility] Urine pHOrdered By: Patrick alvarenga on 11-20-2022 pH (U) 6.0 [pH] 5.0 - 8.0 [facility] Urine sediment bacteria coun t by microscopy (number/high power field)Ordered By: Patrick Moreno on 11-20-2022 Bacteria LM.HPF (Urine sed) [#/Area] RARE /hpf None Seen [facility] Urine specific gravity measu rementOrdered By: Patrick Moreno on 11-20-2022 Specific gravity (U) [Rel density] 1.020 1.002-1.030 [facility] Urobilinogen Auto test strip Ql (U)Ordered By: Patrick Moreno on 11-20-2022 Urobilinogen Ql (U) Normal mg/dl Normal [place] Absolute lymphocyte countOrd ered By: Dr. Batista on 09-15-2022 Lymphocytes Auto (Unsp spec) [#/Vol] 3.84 10*3/uL 0.83-4.51 [facility] Basophil percentageOrdered B y: Dr. Batista on 09-15-2022 Basophil percentage 0 SEEN /hpf 0-5 [facility] Basophils/100 WBC (Bld) 0.4 % 0-1 [facility] Bilirubin [Mass/Vol] 0.20 mg/dL 0.20-1.00 [facility] Comment on above: For patients on eltr ombopag therapy, use of Dimension Corona TBIL is not recommended. Chloride [Moles/Vol] 106 mmol/L 98-107 [facility] Eosinophils/100 WBC (Bld) 3.0 % 0-5 [facility] Glucose [Mass/Vol] 93 mg/dL 74-106 [facility] Neutrophils (Bld) [#/Vol] 7.2 10*3/uL 2.0-7.7 [facility] Neutrophils/100 WBC (Bld) 59.7 % 47-70 [facility] Potassium [Moles/Vol] 3.5 mmol/L 3.5-5.1 [place] Protein [Mass/Vol] 7.4 g/dL 6.4-8.2 [facility] Sodium [Moles/Vol] 140 mmol/L 136-145 [facility] WBC (Bld) [#/Vol] 12.1 10*3/uL 4.4-11.0 [facility] Bilirubin Test strip Ql (U)O rdered By: Dr. Batista on 09-15-2022 Bilirubin Ql (U) Negative Negative [facility] Blood erythrocytes count (nu mber/volume)Ordered By: Dr. Batista on 09-15-2022 RBC (Bld) [#/Vol] 5.24 10*6/uL 4.6-6.2 [facility] Blood hemoglobin measurement (mass/volume)Ordered By: Dr. Batista on 09-15-2022 Hemoglobin (Bld) [Mass/Vol] 13.9 g/dL 13.0-16.5 [facility] Blood lymphocytes/100 leukoc ytesOrdered By: Dr. Batista on 09-15-2022 Lymphocytes/100 WBC (Bld) 31.7 % 19-41 [facility] Blood monocytes/100 leukocyt esOrdered By: Dr. Batista on 09-15-2022 Monocytes/100 WBC (Bld) 4.9 % 0-10 [facility] Blood platelet mean volumeOr dered By: Dr. Batista on 09-15-2022 Platelet mean volume (Bld) [Entitic vol] 9.4 fL 6.2-12.0 [facility] Determination of erythrocyte mean corpuscular volume (MCV)Ordered By: Dr. Batista on 09-15-2022 MCV (RBC) [Entitic vol] 82.1 fL 80-94 [facility] Hematocrit Auto (Bld) [Volum e fraction]Ordered By: Dr. Batista on 09-15-2022 Hematocrit (Bld) [Volume fraction] 43.0 % 40-54 [facility] Ketones Test strip Ql (U)Ord ered By: Dr. Batista on 09-15-2022 Ketones Ql (U) Negative Negative [facility] Laboratory - Chemistry and C hemistry - challengeOrdered By: Dr. Batista on 09-15-2022 ALP [Catalytic activity/Vol] 121 U/L 45-117 [facility] ALT [Catalytic activity/Vol] 21 U/L 16-61 [facility] CO2 [Moles/Vol] 27.0 mmol/L 21.0-32.0 [facility] Globulin (S) [Mass/Vol] 4.1 g/dL 2.2-4.2 [facility] Lipase [Catalytic activity/Vol] 22 U/L 13-75 [facility] Comment on above: Please note:LIPASE r evised reference range effective 22. New Lipase methodology. Expected to produce lower values than the previous assay method. NEW Reference Range: 13 - 75 U/L Urea nitrogen/Creatinine [Mass ratio] 10.2 mg/mg 10-20 [facility] Laboratory - Hematology and Cell countsOrdered By: Dr. Batista on 09-15-2022 Erythrocyte distribution width (RBC) [Entitic vol] 39.7 fL 35.1-43.9 [facility] Erythrocyte distribution width (RBC) [Ratio] 13.4 % 11.6-14.6 [facility] Immature granulocytes/100 WBC (Bld) 0.300 % 0.0-0.9 [facility] Comment on above: IG% - Immature Granu locytes (promyelocytes, myelocytes and metamyelocytes) > 1% indicates that a LEFT SHIFT is Present. MCH (RBC) [Entitic mass] 26.5 pg 27.0-32.0 [facility] Nucleated RBC/100 WBC (Bld) [Ratio] 0 % 0-5 [facility] MCHC Auto (RBC) [Mass/Vol]Or dered By: Dr. Batista on 09-15-2022 MCHC (RBC) [Mass/Vol] 32.3 g/dL 32-36 [place] Mucus LM Ql (Urine sed)Order ed By: Dr. Batista on 09-15-2022 Mucus Ql (Urine sed) 0 SEEN /hpf [place] Nitrite Test strip Ql (U)Ord ered By: Dr. Batista on 09-15-2022 Nitrite Ql (U) Negative Negative [facility] No Panel InformationOrdered By: Dr. Batista on 09-15-2022 Estimated Creatinine Clearance Calc 89.00 ml/min [facility] Estimated GFR (MDRD) Amer 107 mL/min >60 [facility] Estimated GFR (MDRD) Non-Af Amer 88 mL/min >60 [facility] Platelets bldOrdered By: Dr. Batista on 09-15-2022 Platelets (Bld) [#/Vol] 406 10*3/uL 150-450 [facility] Protein Test strip Ql (U)Ord ered By: Dr. Batista on 09-15-2022 Protein Ql (U) 15 mg/dl Negative [facility] Serum or plasma albumin paramjit urement (mass/volume)Ordered By: Dr. Batista on 09-15-2022 Albumin [Mass/Vol] 3.3 g/dL 3.2-5.0 [facility] Serum or plasma albumin/glob ulin mass ratioOrdered By: Dr. Batista on 09-15-2022 Albumin/Globulin [Mass ratio] 0.8 {ratio} 0.9-2.4 [facility] Serum or plasma calcium paramjit urement (mass/volume)Ordered By: Dr. Batista on 09-15-2022 Calcium [Mass/Vol] 9.1 mg/dL 8.5-10.1 [facility] Serum or plasma creatinine m easurement (mass/volume)Ordered By: Dr. Batista on 09-15-2022 Creatinine [Mass/Vol] 0.98 mg/dL 0.70-1.30 [place] Comment on above: The validity of the calculated GFR & GFRAA in patients over 70 years has not been determined. Clinical correlation is essential. Serum or plasma urea nitroge n measurement (mass/volume)Ordered By: Dr. Batista on 09-15-2022 Urea nitrogen [Mass/Vol] 10 mg/dL 7-18 [facility] Squamous epithelial cells de tection in urine sediment by light microscopyOrdered By: Dr. Batista on 09-15-2022 Epithelial cells.squamous LM Ql (Urine sed) 0 SEEN /hpf 0-5 [facility] Thin prep Papanicolaou smear with manual screeningOrdered By: Dr. Batista on 09-15-2022 Thin prep Papanicolaou smear with manual screening 10 U/L 15-37 [facility] Thin prep Papanicolaou smear with manual screening 7 5-15 [facility] Urine blood detectionOrdered By: Dr. Batista on 09-15-2022 RBC Ql (U) 10 /ul Negative [facility] RBC Ql (U) 0 SEEN /hpf 0-5 [facility] Urine clarityOrdered By: Dr. Batista on 09-15-2022 Clarity (U) Clear Clear [facility] Urine color determinationOrd ered By: Dr. Batista on 09-15-2022 Color (U) Yellow Yellow [facility] Urine glucose detectionOrder ed By: Dr. Batista on 09-15-2022 Glucose Ql (U) Normal mg/dl Normal [facility] Urine leukocyte esterase det ection by dipstickOrdered By: Dr. Batista on 09-15-2022 Leukocyte esterase Test strip Ql (U) Negative Negative [facility] Urine pHOrdered By: Dr. Griselda rosales on 09-15-2022 pH (U) 5.0 [pH] 5.0 - 8.0 [facility] Urine sediment bacteria coun t by microscopy (number/high power field)Ordered By: Dr. Batista on 09-15-2022 Bacteria LM.HPF (Urine sed) [#/Area] 0 /[HPF] None Seen [facility] Urine specific gravity measu rementOrdered By: Dr. Batista on 09-15-2022 Specific gravity (U) [Rel density] 1.025 1.002-1.030 [facility] Urobilinogen Auto test strip Ql (U)Ordered By: Dr. Batista on 09-15-2022 Urobilinogen Ql (U) Normal mg/dl Normal [place] LABORATORYOrdered By: SYSTEM SYSTEM on 09-12-2022 Albumin BCP dye [Mass/Vol] 3.7 G/dL Invalid Interpretation Code 3.5 - 5.0 G/dL AO ADM SS Albumin/Globulin [Mass ratio] 1.1 {ratio} Invalid Interpretation Code 1.1 - 2.5 ratio AO ADM SS ALP [Catalytic activity/Vol] 122 U/L Invalid Interpretation Code 40 - 135 U/L AO ADM SS ALT With P-5'-P [Catalytic activity/Vol] 23 U/L Invalid Interpretation Code 16 - 63 U/L AO ADM SS AST With P-5'-P [Catalytic activity/Vol] 15 U/L Invalid Interpretation Code 10 - 40 U/L AO ADM SS Bilirubin [Mass/Vol] 0.3 mg/dL Invalid Interpretation Code 0.2 - 1.0 mg/dL AO ADM SS Calcium [Mass/Vol] 8.7 mg/dL Invalid Interpretation Code 8.4 - 10.2 mg/dL AO ADM SS Chloride [Moles/Vol] 104 mmol/L Invalid Interpretation Code 98 - 107 mmol/L AO ADM SS CO2 [Moles/Vol] 28 mmol/L Invalid Interpretation Code 22 - 29 mmol/L AO ADM SS Creatinine [Mass/Vol] 1.00 mg/dL Invalid Interpretation Code 0.70 - 1.30 mg/dL AO ADM SS Electrolyte Balance 9.0 mEq/L Invalid Interpretation Code 4.0 - 15.0 mEq/L AO ADM SS GFR/1.73 sq M.predicted among blacks MDRD (S/P/Bld) [Vol rate/Area] 98 ml/min/1.73sqm Invalid Interpretation Code AO Chemistry S GFR/1.73 sq M.predicted among non-blacks MDRD (S/P/Bld) [Vol rate/Area] 81 ml/min/1.73sqm Invalid Interpretation Code AO Chemistry S Globulin 3.3 G/dL Invalid Interpretation Code AO ADM SS Glucose [Mass/Vol] 86 mg/dL Invalid Interpretation Code 70 - 105 mg/dL AO ADM SS Lipase [Catalytic activity/Vol] 23 U/L Invalid Interpretation Code 16 - 77 U/L AO ADM SS Potassium [Moles/Vol] 3.8 mmol/L Invalid Interpretation Code 3.5 - 5.1 mmol/L AO ADM SS Protein [Mass/Vol] 7.0 G/dL Invalid Interpretation Code 6.4 - 8.2 G/dL AO ADM SS Sodium [Moles/Vol] 141 mmol/L Invalid Interpretation Code 136 - 145 mmol/L AO ADM SS Urea nitrogen [Mass/Vol] 14 mg/dL Invalid Interpretation Code 7 - 18 mg/dL AO ADM SS Urea nitrogen/Creatinine [Mass ratio] 14 ratio Invalid Interpretation Code 7 - 27 ratio AO ADM SS LABORATORYOrdered By: Teresa Marks on 09-12-2022 Basophil, Absolute 0.1 103/mcL Invalid Interpretation Code 0.0 - 0.2 10^3/mcL AO Workflow SS Basophils/100 WBC (Bld) 0.7 % Invalid Interpretation Code 0.0 - 2.5 % AO Workflow SS Eosinophil, Absolute 0.3 103/mcL Invalid Interpretation Code 0.0 - 0.4 10^3/mcL AO Workflow SS Eosinophils/100 WBC (Bld) 2.6 % Invalid Interpretation Code 0.0 - 7.0 % AO Workflow SS Erythrocyte distribution width (RBC) [Ratio] 14.3 % Invalid Interpretation Code 11.5 - 14.5 % AO Workflow SS Hematocrit (Bld) [Volume fraction] 38.7 % Invalid Interpretation Code 42.0 - 52.0 % AO Workflow SS Hemoglobin (Bld) [Mass/Vol] 12.9 G/dL Invalid Interpretation Code 14.0 - 18.0 G/dL AO Workflow SS Lymphocyte, Absolute 4.1 103/mcL Invalid Interpretation Code 0.8 - 3.9 10^3/mcL AO Workflow SS Lymphocytes/100 WBC (Bld) 34.9 % Invalid Interpretation Code 10.0 - 50.0 % AO Workflow SS MCH (RBC) [Entitic mass] 26.8 pg Invalid Interpretation Code 27.0 - 31.2 pg AO Workflow SS MCHC 33.2 G/dL Invalid Interpretation Code 31.8 - 35.4 G/dL AO Workflow SS MCV (RBC) [Entitic vol] 80.6 fL Invalid Interpretation Code 80.0 - 94.0 fL AO Workflow SS Monocyte distribution width Auto (Bld) [Entitic vol] 17.04 Invalid Interpretation Code 0.00 - 20.00 AO Workflow SS Comment on above: Result Comment: For ED adult patients suspected of sepsis, MDW<=20.0 does not rule out sepsis or risk of sepsis Monocyte, Absolute 0.6 103/mcL Invalid Interpretation Code 0.2 - 1.0 10^3/mcL AO Workflow SS Monocytes/100 WBC (Bld) 4.9 % Invalid Interpretation Code 1.7 - 13.0 % AO Workflow SS Neutrophil, Absolute 6.7 103/mcL Invalid Interpretation Code 2.9 - 6.2 10^3/mcL AO Workflow SS Neutrophils/100 WBC (Bld) 56.9 % Invalid Interpretation Code 37.0 - 80.0 % AO Workflow SS Platelet mean volume (Bld) [Entitic vol] 7.4 fL Invalid Interpretation Code 7.4 - 10.4 fL AO Workflow SS Platelets (Bld) [#/Vol] 387 103/mcL Invalid Interpretation Code 130 - 400 10^3/mcL AO Workflow SS RBC (Bld) [#/Vol] 4.80 106/mcL Invalid Interpretation Code 4.04 - 6.13 10^6/mcL AO Workflow SS WBC (Bld) [#/Vol] 11.7 103/mcL Invalid Interpretation Code 4.6 - 10.8 10^3/mcL AO Workflow SS ED NOTEon 08-30-2022 ED NOTE HNO ID: [id number] Author: Royal Martin MCCARTNEY, Medic Service: ? Author Type: [employer]ter and Child Development Consultant Type: ED Notes Filed: 08/29/2022 11:06 PM Note Text: Pt sts jaw pain x5 days, last night a tooth broke while eating. Talked to his PCP and advised to be seen for IV antibiotics. No chest pain or SOB. Normal [facility] LABORATORYOrdered By: SYSTEM SYSTEM on 08-01-2022 Albumin BCP dye [Mass/Vol] 3.4 G/dL Invalid Interpretation Code 3.5 - 5.0 G/dL AO ADM SS Albumin/Globulin [Mass ratio] 1.0 {ratio} Invalid Interpretation Code 1.1 - 2.5 ratio AO ADM SS ALP [Catalytic activity/Vol] 150 U/L Invalid Interpretation Code 40 - 135 U/L AO ADM SS ALT With P-5'-P [Catalytic activity/Vol] 46 U/L Invalid Interpretation Code 16 - 63 U/L AO ADM SS AST With P-5'-P [Catalytic activity/Vol] 30 U/L Invalid Interpretation Code 10 - 40 U/L AO ADM SS Bilirubin [Mass/Vol] 0.4 mg/dL Invalid Interpretation Code 0.2 - 1.0 mg/dL AO ADM SS Calcium [Mass/Vol] 8.4 mg/dL Invalid Interpretation Code 8.4 - 10.2 mg/dL AO ADM SS Chloride [Moles/Vol] 104 mmol/L Invalid Interpretation Code 98 - 107 mmol/L AO ADM SS CO2 [Moles/Vol] 27 mmol/L Invalid Interpretation Code 22 - 29 mmol/L AO ADM SS Creatinine [Mass/Vol] 1.02 mg/dL Invalid Interpretation Code 0.70 - 1.30 mg/dL AO ADM SS Electrolyte Balance 8.0 mEq/L Invalid Interpretation Code 4.0 - 15.0 mEq/L AO ADM SS GFR/1.73 sq M.predicted among blacks MDRD (S/P/Bld) [Vol rate/Area] 96 ml/min/1.73sqm Invalid Interpretation Code AO Chemistry S GFR/1.73 sq M.predicted among non-blacks MDRD (S/P/Bld) [Vol rate/Area] 79 ml/min/1.73sqm Invalid Interpretation Code AO Chemistry S Globulin 3.3 G/dL Invalid Interpretation Code AO ADM SS Glucose [Mass/Vol] 113 mg/dL Invalid Interpretation Code 70 - 105 mg/dL AO ADM SS Lipase [Catalytic activity/Vol] 19 U/L Invalid Interpretation Code 16 - 77 U/L AO ADM SS Potassium [Moles/Vol] 3.8 mmol/L Invalid Interpretation Code 3.5 - 5.1 mmol/L AO ADM SS Protein [Mass/Vol] 6.7 G/dL Invalid Interpretation Code 6.4 - 8.2 G/dL AO ADM SS Sodium [Moles/Vol] 139 mmol/L Invalid Interpretation Code 136 - 145 mmol/L AO ADM SS Urea nitrogen [Mass/Vol] 14 mg/dL Invalid Interpretation Code 7 - 18 mg/dL AO ADM SS Urea nitrogen/Creatinine [Mass ratio] 14 ratio Invalid Interpretation Code 7 - 27 ratio AO ADM SS LABORATORYOrdered By: Nancy Varela on 08-01-2022 Basophil, Absolute 0.0 103/mcL Invalid Interpretation Code 0.0 - 0.2 10^3/mcL AO Workflow SS Basophils/100 WBC (Bld) 0.2 % Invalid Interpretation Code 0.0 - 2.5 % AO Workflow SS Eosinophil, Absolute 0.3 103/mcL Invalid Interpretation Code 0.0 - 0.4 10^3/mcL AO Workflow SS Eosinophils/100 WBC (Bld) 2.8 % Invalid Interpretation Code 0.0 - 7.0 % AO Workflow SS Erythrocyte distribution width (RBC) [Ratio] 14.5 % Invalid Interpretation Code 11.5 - 14.5 % AO Workflow SS Hematocrit (Bld) [Volume fraction] 40.9 % Invalid Interpretation Code 42.0 - 52.0 % AO Workflow SS Hemoglobin (Bld) [Mass/Vol] 13.6 G/dL Invalid Interpretation Code 14.0 - 18.0 G/dL AO Workflow SS Lymphocyte, Absolute 1.9 103/mcL Invalid Interpretation Code 0.8 - 3.9 10^3/mcL AO Workflow SS Lymphocytes/100 WBC (Bld) 17.8 % Invalid Interpretation Code 10.0 - 50.0 % AO Workflow SS MCH (RBC) [Entitic mass] 26.5 pg Invalid Interpretation Code 27.0 - 31.2 pg AO Workflow SS MCHC 33.2 G/dL Invalid Interpretation Code 31.8 - 35.4 G/dL AO Workflow SS MCV (RBC) [Entitic vol] 79.7 fL Invalid Interpretation Code 80.0 - 94.0 fL AO Workflow SS Monocyte distribution width Auto (Bld) [Entitic vol] 18.30 Invalid Interpretation Code 0.00 - 20.00 AO Workflow SS Comment on above: Result Comment: For ED adult patients suspected of sepsis, MDW<=20.0 does not rule out sepsis or risk of sepsis Monocyte, Absolute 0.6 103/mcL Invalid Interpretation Code 0.2 - 1.0 10^3/mcL AO Workflow SS Monocytes/100 WBC (Bld) 5.3 % Invalid Interpretation Code 1.7 - 13.0 % AO Workflow SS Neutrophil, Absolute 7.9 103/mcL Invalid Interpretation Code 2.9 - 6.2 10^3/mcL AO Workflow SS Neutrophils/100 WBC (Bld) 73.9 % Invalid Interpretation Code 37.0 - 80.0 % AO Workflow SS Platelet mean volume (Bld) [Entitic vol] 7.1 fL Invalid Interpretation Code 7.4 - 10.4 fL AO Workflow SS Platelets (Bld) [#/Vol] 362 103/mcL Invalid Interpretation Code 130 - 400 10^3/mcL AO Workflow SS RBC (Bld) [#/Vol] 5.13 106/mcL Invalid Interpretation Code 4.04 - 6.13 10^6/mcL AO Workflow SS WBC (Bld) [#/Vol] 10.7 103/mcL Invalid Interpretation Code 4.6 - 10.8 10^3/mcL AO Workflow SS Basophil percentageOrdered B y: LEIGH ANNFamilia [employer] on 07-18-2022 Bilirubin [Mass/Vol] 0.30 mg/dL 0.20-1.00 [facility] Comment on above: For patients on eltr ombopag therapy, use of Dimension [place] TBIL is not recommended. Chloride [Moles/Vol] 106 mmol/L 98-107 [facility] Cholesterol [Mass/Vol] 182 mg/dL <200 [facility] Comment on above: <200 mg/dL Desirable 200-240 mg/dL Borderline >240 mg/dL High Risk Glucose [Mass/Vol] 108 mg/dL 74-106 [facility] Comment on above: Fasting Glucose resu lt from 100 to 125 mg/dL suggests IMPAIRED HOMEOSTASIS per A.D.A. criteria. Potassium [Moles/Vol] 3.8 mmol/L 3.5-5.1 [place] Protein [Mass/Vol] 7.6 g/dL 6.4-8.2 [facility] Sodium [Moles/Vol] 134 mmol/L 136-145 [facility] Triglyceride [Mass/Vol] 106 mg/dL <199 [facility] Comment on above: The drugs N-Acetylcy steine and Metamizole may falsely depress this assay.Serum Triglycerides Reference Interval Normal <150 mg/dL Borderline high 150 - 199 mg/dL High 200 - 499 mg/dL Very High > or = 500 mg/dL WBC (Bld) [#/Vol] 9.8 10*3/uL 4.4-11.0 [facility] Blood erythrocytes count (nu mber/volume)Ordered By: [facility] [place] 2] on 07-18-2022 RBC (Bld) [#/Vol] 5.27 10*6/uL 4.6-6.2 [facility] Blood hemoglobin measurement (mass/volume)Ordered By: [facility] [place][NOTE 2] on 07-18-2022 Hemoglobin (Bld) [Mass/Vol] 13.7 g/dL 13.0-16.5 [facility] Blood platelet mean volumeOr dered By: [facility] [place][NOTE 2] on 07-18-2022 Platelet mean volume (Bld) [Entitic vol] 9.5 fL 6.2-12.0 [facility] Determination of erythrocyte mean corpuscular volume (MCV)Ordered By: [facility] [place][NOTE 2] on 07-18-2022 MCV (RBC) [Entitic vol] 82.4 fL 80-94 [facility] Hematocrit Auto (Bld) [Volum e fraction]Ordered By: [facility] [place][NOTE 2] on 07-18-2022 Hematocrit (Bld) [Volume fraction] 43.4 % 40-54 [facility] Laboratory - Chemistry and C hemistry - challengeOrdered By: IVANA MARQUEZ on 07-18-2022 ALP [Catalytic activity/Vol] 132 U/L 45-117 [facility] ALT [Catalytic activity/Vol] 38 U/L 16-61 [facility] CO2 [Moles/Vol] 26.0 mmol/L 21.0-32.0 [facility] Globulin (S) [Mass/Vol] 4.1 g/dL 2.2-4.2 [facility] Urea nitrogen/Creatinine [Mass ratio] 15.7 mg/mg 10-20 [facility] Laboratory - Hematology and Cell countsOrdered By: IVANA MARQUEZ on 07-18-2022 Erythrocyte distribution width (RBC) [Entitic vol] 41.5 fL 35.1-43.9 [facility] Erythrocyte distribution width (RBC) [Ratio] 14.0 % 11.6-14.6 [facility] MCH (RBC) [Entitic mass] 26.0 pg 27.0-32.0 [facility] MCHC Auto (RBC) [Mass/Vol]Or dered By: IVANA MARQUEZ on 07-18-2022 MCHC (RBC) [Mass/Vol] 31.6 g/dL 32-36 [place] No Panel InformationOrdered By: IVANA MARQUEZ on 07-18-2022 Estimated GFR (MDRD) Amer 119 mL/min >60 [facility] Comment on above: GFR Calc Estimated GFR (MDRD) Non-Af Amer 98 mL/min >60 [facility] Comment on above: Non- GFR Calc Platelets bldOrdered By: ARIELLA LLOYD on 07-18-2022 Platelets (Bld) [#/Vol] 392 10*3/uL 150-450 [facility] Serum or plasma albumin paramjit urement (mass/volume)Ordered By: IVANA MARQUEZ on 07-18-2022 Albumin [Mass/Vol] 3.5 g/dL 3.2-5.0 [facility] Serum or plasma albumin/glob ulin mass ratioOrdered By: IVANA [place] on 07-18-2022 Albumin/Globulin [Mass ratio] 0.9 {ratio} 0.9-2.4 [facility] Serum or plasma calcium paramjit urement (mass/volume)Ordered By: IVANA MARQUEZ on 07-18-2022 Calcium [Mass/Vol] 8.6 mg/dL 8.5-10.1 [facility] Serum or plasma cholesterol in HDL measurement (mass/volume)Ordered By: [facility] [place][NOTE 2] on 07-18-2022 Cholesterol in HDL [Mass/Vol] 33 mg/dL >40 [facility] Comment on above: The drugs N-Acetylcy steine and Metamizole may falsely depress this assay. Reference Range HDL <40 mg/dL Low HDL Cholesterol HDL >or= 60 mg/dL High HDL Cholesterol Serum or plasma cholesterol in VLDL measurement (mass/volume)Ordered By: [facility] [place][NOTE 2] on 07-18-2022 Cholesterol in VLDL [Mass/Vol] 21 mg/dL 5-40 [facility] Serum or plasma creatinine m easurement (mass/volume)Ordered By: [facility] [place] on 07-18-2022 Creatinine [Mass/Vol] 0.89 mg/dL 0.70-1.30 [place] Comment on above: The validity of the calculated GFR & GFRAA in patients over 70 years has not been determined. Clinical correlation is essential. Serum or plasma low density lipoprotein (LDL) cholesterol measurement (mass/volume)Ordered By: [facility] [place] 2[place] on 07-18-2022 Cholesterol in LDL [Mass/Vol] 128 mg/dL 0-130 [facility] Serum or plasma urea nitroge n measurement (mass/volume)Ordered By: [facility] [place] 2[place] on 07-18-2022 Urea nitrogen [Mass/Vol] 14 mg/dL 7-18 [facility] Thin prep Papanicolaou smear with manual screeningOrdered By: [facility] [place] 2] on 07-18-2022 Thin prep Papanicolaou smear with manual screening 21 U/L 15-37 [facility] Thin prep Papanicolaou smear with manual screening 2 5-15 [facility] Whole blood hemoglobin A1c/t otal hemoglobin ratio (mass fraction)Ordered By: [facility] [place] 2] on 07-18-2022 HbA1c (Bld) [Mass fraction] 5.6 % 3.8-5.6 [facility] Comment on above: Normal < 5.7 % Predi abetic 5.7 - 6.4 % Diabetic >or= 6.5 % Please note range changes. Influenza virus A and B and SARS-CoV-2 (COVID-19) Ag panel - Upper respiratory specimOrdered By: Dr. Moreno on 06-14-2022 SARS-CoV-2 (COVID-19) RNA JOSE+probe Ql (Resp) [facility] S. pyogenes Ag IF Ql (Throat )Ordered By: Dr. Moreno on 06-14-2022 S. pyogenes Ag IA Ql (Unsp spec) Streptococcus Group A [facility] LABORATORYOrdered By: Teresa Marks on 05-05-2022 Basophil, Absolute 0.1 103/mcL Invalid Interpretation Code 0.0 - 0.2 10^3/mcL AO Workflow SS Basophils/100 WBC (Bld) 0.8 % Invalid Interpretation Code 0.0 - 2.5 % AO Workflow SS Eosinophil, Absolute 0.3 103/mcL Invalid Interpretation Code 0.0 - 0.4 10^3/mcL AO Workflow SS Eosinophils/100 WBC (Bld) 2.7 % Invalid Interpretation Code 0.0 - 7.0 % AO Workflow SS Erythrocyte distribution width (RBC) [Ratio] 14.8 % Invalid Interpretation Code 11.5 - 14.5 % AO Workflow SS Hematocrit (Bld) [Volume fraction] 39.9 % Invalid Interpretation Code 42.0 - 52.0 % AO Workflow SS Hemoglobin (Bld) [Mass/Vol] 13.4 G/dL Invalid Interpretation Code 14.0 - 18.0 G/dL AO Workflow SS Lymphocyte, Absolute 2.2 103/mcL Invalid Interpretation Code 0.8 - 3.9 10^3/mcL AO Workflow SS Lymphocytes/100 WBC (Bld) 17.7 % Invalid Interpretation Code 10.0 - 50.0 % AO Workflow SS MCH (RBC) [Entitic mass] 26.6 pg Invalid Interpretation Code 27.0 - 31.2 pg AO Workflow SS MCHC 33.6 G/dL Invalid Interpretation Code 31.8 - 35.4 G/dL AO Workflow SS MCV (RBC) [Entitic vol] 79.2 fL Invalid Interpretation Code 80.0 - 94.0 fL AO Workflow SS Monocyte distribution width Auto (Bld) [Entitic vol] 17.86 Invalid Interpretation Code 0.00 - 20.00 AO Workflow SS Comment on above: Result Comment: For ED adult patients suspected of sepsis, MDW<=20.0 does not rule out sepsis or risk of sepsis Monocyte, Absolute 0.5 103/mcL Invalid Interpretation Code 0.2 - 1.0 10^3/mcL AO Workflow SS Monocytes/100 WBC (Bld) 3.8 % Invalid Interpretation Code 1.7 - 13.0 % AO Workflow SS Neutrophil, Absolute 9.5 103/mcL Invalid Interpretation Code 2.9 - 6.2 10^3/mcL AO Workflow SS Neutrophils/100 WBC (Bld) 75.0 % Invalid Interpretation Code 37.0 - 80.0 % AO Workflow SS Platelet mean volume (Bld) [Entitic vol] 7.3 fL Invalid Interpretation Code 7.4 - 10.4 fL AO Workflow SS Platelets (Bld) [#/Vol] 376 103/mcL Invalid Interpretation Code 130 - 400 10^3/mcL AO Workflow SS RBC (Bld) [#/Vol] 5.03 106/mcL Invalid Interpretation Code 4.04 - 6.13 10^6/mcL AO Workflow SS WBC (Bld) [#/Vol] 12.6 103/mcL Invalid Interpretation Code 4.6 - 10.8 10^3/mcL AO Workflow SS LABORATORYOrdered By: SYSTEM SYSTEM on 05-05-2022 Calcium [Mass/Vol] 8.2 mg/dL Invalid Interpretation Code 8.4 - 10.2 mg/dL AO ADM SS Chloride [Moles/Vol] 103 mmol/L Invalid Interpretation Code 98 - 107 mmol/L AO ADM SS CO2 [Moles/Vol] 27 mmol/L Invalid Interpretation Code 22 - 29 mmol/L AO ADM SS Creatinine [Mass/Vol] 0.92 mg/dL Invalid Interpretation Code 0.70 - 1.30 mg/dL AO ADM SS Electrolyte Balance 10.0 mEq/L Invalid Interpretation Code 4.0 - 15.0 mEq/L AO ADM SS GFR 108 ml/min/1.73sqm Invalid Interpretation Code AO Chemistry S GFR Non- 89 ml/min/1.73sqm Invalid Interpretation Code AO Chemistry S Glucose [Mass/Vol] 120 mg/dL Invalid Interpretation Code 70 - 105 mg/dL AO ADM SS Magnesium [Mass/Vol] 2.0 mg/dL Invalid Interpretation Code 1.8 - 2.4 mg/dL AO ADM SS Potassium [Moles/Vol] 3.5 mmol/L Invalid Interpretation Code 3.5 - 5.1 mmol/L AO ADM SS Sodium [Moles/Vol] 140 mmol/L Invalid Interpretation Code 136 - 145 mmol/L AO ADM SS Troponin I.cardiac DL <= 0.01 ng/mL [Mass/Vol] ng/L Invalid Interpretation Code 0.0 - 76.2 ng/L AO ADM SS TSH Qn 2.01 m[IU]/L Invalid Interpretation Code 0.36 - 3.74 mcIU/mL AO ADM SS Urea nitrogen [Mass/Vol] 15 mg/dL Invalid Interpretation Code 7 - 18 mg/dL AO ADM SS Urea nitrogen/Creatinine [Mass ratio] 16 ratio Invalid Interpretation Code 7 - 27 ratio AO ADM SS LABORATORYOrdered By: Teresa Cain on 04-25-2022 Basophil, Absolute 0.1 103/mcL Invalid Interpretation Code 0.0 - 0.2 10^3/mcL AO Workflow SS Basophils/100 WBC (Bld) 0.8 % Invalid Interpretation Code 0.0 - 2.5 % AO Workflow SS Eosinophil, Absolute 0.3 103/mcL Invalid Interpretation Code 0.0 - 0.4 10^3/mcL AO Workflow SS Eosinophils/100 WBC (Bld) 2.9 % Invalid Interpretation Code 0.0 - 7.0 % AO Workflow SS Erythrocyte distribution width (RBC) [Ratio] 14.3 % Invalid Interpretation Code 11.5 - 14.5 % AO Workflow SS Hematocrit (Bld) [Volume fraction] 42.6 % Invalid Interpretation Code 42.0 - 52.0 % AO Workflow SS Hemoglobin (Bld) [Mass/Vol] 14.1 G/dL Invalid Interpretation Code 14.0 - 18.0 G/dL AO Workflow SS Lymphocyte, Absolute 3.4 103/mcL Invalid Interpretation Code 0.8 - 3.9 10^3/mcL AO Workflow SS Lymphocytes/100 WBC (Bld) 28.2 % Invalid Interpretation Code 10.0 - 50.0 % AO Workflow SS MCH (RBC) [Entitic mass] 26.3 pg Invalid Interpretation Code 27.0 - 31.2 pg AO Workflow SS MCHC 33.1 G/dL Invalid Interpretation Code 31.8 - 35.4 G/dL AO Workflow SS MCV (RBC) [Entitic vol] 79.6 fL Invalid Interpretation Code 80.0 - 94.0 fL AO Workflow SS Monocyte distribution width Auto (Bld) [Entitic vol] 16.38 Invalid Interpretation Code 0.00 - 20.00 AO Workflow SS Comment on above: Result Comment: For ED adult patients suspected of sepsis, MDW<=20.0 does not rule out sepsis or risk of sepsis Monocyte, Absolute 0.7 103/mcL Invalid Interpretation Code 0.2 - 1.0 10^3/mcL AO Workflow SS Monocytes/100 WBC (Bld) 5.5 % Invalid Interpretation Code 1.7 - 13.0 % AO Workflow SS Neutrophil, Absolute 7.4 103/mcL Invalid Interpretation Code 2.9 - 6.2 10^3/mcL AO Workflow SS Neutrophils/100 WBC (Bld) 62.6 % Invalid Interpretation Code 37.0 - 80.0 % AO Workflow SS Platelet mean volume (Bld) [Entitic vol] 7.6 fL Invalid Interpretation Code 7.4 - 10.4 fL AO Workflow SS Platelets (Bld) [#/Vol] 384 103/mcL Invalid Interpretation Code 130 - 400 10^3/mcL AO Workflow SS RBC (Bld) [#/Vol] 5.35 106/mcL Invalid Interpretation Code 4.04 - 6.13 10^6/mcL AO Workflow SS WBC (Bld) [#/Vol] 11.9 103/mcL Invalid Interpretation Code 4.6 - 10.8 10^3/mcL AO Workflow SS LABORATORYOrdered By: SYSTEM SYSTEM on 04-25-2022 Calcium [Mass/Vol] 8.8 mg/dL Invalid Interpretation Code 8.4 - 10.2 mg/dL AO ADM SS Chloride [Moles/Vol] 102 mmol/L Invalid Interpretation Code 98 - 107 mmol/L AO ADM SS CO2 [Moles/Vol] 29 mmol/L Invalid Interpretation Code 22 - 29 mmol/L AO ADM SS Creatinine [Mass/Vol] 0.91 mg/dL Invalid Interpretation Code 0.70 - 1.30 mg/dL AO ADM SS Electrolyte Balance 9.0 mEq/L Invalid Interpretation Code 4.0 - 15.0 mEq/L AO ADM SS GFR 110 ml/min/1.73sqm Invalid Interpretation Code AO Chemistry S GFR Non- 91 ml/min/1.73sqm Invalid Interpretation Code AO Chemistry S Glucose [Mass/Vol] 91 mg/dL Invalid Interpretation Code 70 - 105 mg/dL AO ADM SS Potassium [Moles/Vol] 4.4 mmol/L Invalid Interpretation Code 3.5 - 5.1 mmol/L AO ADM SS Sodium [Moles/Vol] 140 mmol/L Invalid Interpretation Code 136 - 145 mmol/L AO ADM SS Urea nitrogen [Mass/Vol] 15 mg/dL Invalid Interpretation Code 7 - 18 mg/dL AO ADM SS Urea nitrogen/Creatinine [Mass ratio] 16 ratio Invalid Interpretation Code 7 - 27 ratio AO ADM SS LABORATORYOrdered By: Garrett Diallo on 04-09-2022 Basophil, Absolute 0.0 103/mcL Invalid Interpretation Code 0.0 - 0.2 10^3/mcL AO Workflow SS Basophils/100 WBC (Bld) 0.4 % Invalid Interpretation Code 0.0 - 2.5 % AO Workflow SS Cholesterol [Mass/Vol] 147 mg/dL Invalid Interpretation Code 0 - 200 mg/dL AO ADM SS Cholesterol in HDL [Mass/Vol] 25 mg/dL Invalid Interpretation Code 40 - 60 mg/dL AO ADM SS Cholesterol in LDL [Mass/Vol] 99 mg/dL Invalid Interpretation Code 0 - 130 mg/dL AO ADM SS Electrolyte Balance 5.0 mEq/L Invalid Interpretation Code 4.0 - 15.0 mEq/L AO Chemistry S Eosinophil, Absolute 0.3 103/mcL Invalid Interpretation Code 0.0 - 0.4 10^3/mcL AO Workflow SS Eosinophils/100 WBC (Bld) 5.7 % Invalid Interpretation Code 0.0 - 7.0 % AO Workflow SS Erythrocyte distribution width (RBC) [Ratio] 14.3 % Invalid Interpretation Code 11.5 - 14.5 % AO Workflow SS Hematocrit (Bld) [Volume fraction] 39.1 % Invalid Interpretation Code 42.0 - 52.0 % AO Workflow SS Hemoglobin (Bld) [Mass/Vol] 13.1 G/dL Invalid Interpretation Code 14.0 - 18.0 G/dL AO Workflow SS Lymphocyte, Absolute 2.9 103/mcL Invalid Interpretation Code 0.8 - 3.9 10^3/mcL AO Workflow SS Lymphocytes/100 WBC (Bld) 50.1 % Invalid Interpretation Code 10.0 - 50.0 % AO Workflow SS MCH (RBC) [Entitic mass] 26.3 pg Invalid Interpretation Code 27.0 - 31.2 pg AO Workflow SS MCHC 33.4 G/dL Invalid Interpretation Code 31.8 - 35.4 G/dL AO Workflow SS MCV (RBC) [Entitic vol] 78.6 fL Invalid Interpretation Code 80.0 - 94.0 fL AO Workflow SS Monocyte, Absolute 0.3 103/mcL Invalid Interpretation Code 0.2 - 1.0 10^3/mcL AO Workflow SS Monocytes/100 WBC (Bld) 5.1 % Invalid Interpretation Code 1.7 - 13.0 % AO Workflow SS Neutrophil, Absolute 2.3 103/mcL Invalid Interpretation Code 2.9 - 6.2 10^3/mcL AO Workflow SS Neutrophils/100 WBC (Bld) 38.7 % Invalid Interpretation Code 37.0 - 80.0 % AO Workflow SS Platelet mean volume (Bld) [Entitic vol] 7.6 fL Invalid Interpretation Code 7.4 - 10.4 fL AO Workflow SS Platelets (Bld) [#/Vol] 266 103/mcL Invalid Interpretation Code 130 - 400 10^3/mcL AO Workflow SS RBC (Bld) [#/Vol] 4.98 106/mcL Invalid Interpretation Code 4.04 - 6.13 10^6/mcL AO Workflow SS Triglyceride [Mass/Vol] 114 mg/dL Invalid Interpretation Code 0 - 150 mg/dL AO ADM SS WBC (Bld) [#/Vol] 5.8 103/mcL Invalid Interpretation Code 4.6 - 10.8 10^3/mcL AO Workflow SS LABORATORYOrdered By: SYSTEM SYSTEM on 04-09-2022 Calcium [Mass/Vol] 8.1 mg/dL Invalid Interpretation Code 8.4 - 10.2 mg/dL AO ADM SS Chloride [Moles/Vol] 105 mmol/L Invalid Interpretation Code 98 - 107 mmol/L AO ADM SS CO2 [Moles/Vol] 29 mmol/L Invalid Interpretation Code 22 - 29 mmol/L AO ADM SS Creatinine [Mass/Vol] 0.87 mg/dL Invalid Interpretation Code 0.70 - 1.30 mg/dL AO ADM SS GFR 116 ml/min/1.73sqm Invalid Interpretation Code AO Chemistry S GFR Non- 95 ml/min/1.73sqm Invalid Interpretation Code AO Chemistry S Glucose [Mass/Vol] 94 mg/dL Invalid Interpretation Code 70 - 105 mg/dL AO ADM SS HbA1c (Bld) [Mass fraction] 5.8 % Invalid Interpretation Code 4.3 - 6.4 % AO ADM SS Magnesium [Mass/Vol] 2.0 mg/dL Invalid Interpretation Code 1.8 - 2.4 mg/dL AO ADM SS Potassium [Moles/Vol] 4.2 mmol/L Invalid Interpretation Code 3.5 - 5.1 mmol/L AO ADM SS Sodium [Moles/Vol] 139 mmol/L Invalid Interpretation Code 136 - 145 mmol/L AO ADM SS Urea nitrogen [Mass/Vol] 15 mg/dL Invalid Interpretation Code 7 - 18 mg/dL AO ADM SS Urea nitrogen/Creatinine [Mass ratio] 17 ratio Invalid Interpretation Code 7 - 27 ratio AO ADM SS LABORATORYOrdered By: [email or web address] on 04-08-2022 Troponin I.cardiac DL <= 0.01 ng/mL [Mass/Vol] 4.8 ng/L Invalid Interpretation Code 0.0 - 76.2 ng/L AO ADM SS Troponin I.cardiac DL <= 0.01 ng/mL [Mass/Vol] 4.1 ng/L Invalid Interpretation Code 0.0 - 76.2 ng/L AO ADM SS Calcium [Mass/Vol] 8.4 mg/dL Invalid Interpretation Code 8.4 - 10.2 mg/dL AO ADM SS Chloride [Moles/Vol] 104 mmol/L Invalid Interpretation Code 98 - 107 mmol/L AO ADM SS CO2 [Moles/Vol] 27 mmol/L Invalid Interpretation Code 22 - 29 mmol/L AO ADM SS Creatinine [Mass/Vol] 0.76 mg/dL Invalid Interpretation Code 0.70 - 1.30 mg/dL AO ADM SS Electrolyte Balance 6.0 mEq/L Invalid Interpretation Code 4.0 - 15.0 mEq/L AO ADM SS GFR 135 ml/min/1.73sqm Invalid Interpretation Code AO Chemistry S GFR Non- 111 ml/min/1.73sqm Invalid Interpretation Code AO Chemistry S Glucose [Mass/Vol] 99 mg/dL Invalid Interpretation Code 70 - 105 mg/dL AO ADM SS Potassium [Moles/Vol] 3.9 mmol/L Invalid Interpretation Code 3.5 - 5.1 mmol/L AO ADM SS Sodium [Moles/Vol] 137 mmol/L Invalid Interpretation Code 136 - 145 mmol/L AO ADM SS Urea nitrogen [Mass/Vol] 13 mg/dL Invalid Interpretation Code 7 - 18 mg/dL AO ADM SS Urea nitrogen/Creatinine [Mass ratio] 17 ratio Invalid Interpretation Code 7 - 27 ratio AO ADM SS Troponin I.cardiac DL <= 0.01 ng/mL [Mass/Vol] 4.9 ng/L Invalid Interpretation Code 0.0 - 76.2 ng/L AO ADM SS LABORATORYOrdered By: Teresa Cain on 04-08-2022 Basophil, Absolute 0.1 103/mcL Invalid Interpretation Code 0.0 - 0.2 10^3/mcL AO Workflow SS Basophils/100 WBC (Bld) 1.0 % Invalid Interpretation Code 0.0 - 2.5 % AO Workflow SS Eosinophil, Absolute 0.3 103/mcL Invalid Interpretation Code 0.0 - 0.4 10^3/mcL AO Workflow SS Eosinophils/100 WBC (Bld) 4.3 % Invalid Interpretation Code 0.0 - 7.0 % AO Workflow SS Erythrocyte distribution width (RBC) [Ratio] 14.3 % Invalid Interpretation Code 11.5 - 14.5 % AO Workflow SS Hematocrit (Bld) [Volume fraction] 41.0 % Invalid Interpretation Code 42.0 - 52.0 % AO Workflow SS Hemoglobin (Bld) [Mass/Vol] 13.9 G/dL Invalid Interpretation Code 14.0 - 18.0 G/dL AO Workflow SS Lymphocyte, Absolute 2.3 103/mcL Invalid Interpretation Code 0.8 - 3.9 10^3/mcL AO Workflow SS Lymphocytes/100 WBC (Bld) 39.3 % Invalid Interpretation Code 10.0 - 50.0 % AO Workflow SS MCH (RBC) [Entitic mass] 26.6 pg Invalid Interpretation Code 27.0 - 31.2 pg AO Workflow SS MCHC 33.8 G/dL Invalid Interpretation Code 31.8 - 35.4 G/dL AO Workflow SS MCV (RBC) [Entitic vol] 78.8 fL Invalid Interpretation Code 80.0 - 94.0 fL AO Workflow SS Monocyte distribution width Auto (Bld) [Entitic vol] 21.83 Invalid Interpretation Code 0.00 - 20.00 AO Workflow SS Comment on above: Result Comment: For adults in ED, MDW>20.0 may be associated with a higher risk of sepsis during the first 12hrs of hospital admission Monocyte, Absolute 0.4 103/mcL Invalid Interpretation Code 0.2 - 1.0 10^3/mcL AO Workflow SS Monocytes/100 WBC (Bld) 7.2 % Invalid Interpretation Code 1.7 - 13.0 % AO Workflow SS Neutrophil, Absolute 2.8 103/mcL Invalid Interpretation Code 2.9 - 6.2 10^3/mcL AO Workflow SS Neutrophils/100 WBC (Bld) 48.2 % Invalid Interpretation Code 37.0 - 80.0 % AO Workflow SS Platelet mean volume (Bld) [Entitic vol] 7.2 fL Invalid Interpretation Code 7.4 - 10.4 fL AO Workflow SS Platelets (Bld) [#/Vol] 309 103/mcL Invalid Interpretation Code 130 - 400 10^3/mcL AO Workflow SS RBC (Bld) [#/Vol] 5.21 106/mcL Invalid Interpretation Code 4.04 - 6.13 10^6/mcL AO Workflow SS WBC (Bld) [#/Vol] 5.9 103/mcL Invalid Interpretation Code 4.6 - 10.8 10^3/mcL AO Workflow SS LABORATORYOrdered By: SYSTEM SYSTEM on 03-19-2022 Albumin BCP dye [Mass/Vol] 3.3 G/dL Invalid Interpretation Code 3.5 - 5.0 G/dL AO ADM SS Albumin/Globulin [Mass ratio] 1.0 {ratio} Invalid Interpretation Code 1.1 - 2.5 ratio AO ADM SS ALP [Catalytic activity/Vol] 117 U/L Invalid Interpretation Code 40 - 135 U/L AO ADM SS ALT With P-5'-P [Catalytic activity/Vol] 27 U/L Invalid Interpretation Code 16 - 63 U/L AO ADM SS AST With P-5'-P [Catalytic activity/Vol] 17 U/L Invalid Interpretation Code 10 - 40 U/L AO ADM SS Bilirubin [Mass/Vol] 0.4 mg/dL Invalid Interpretation Code 0.2 - 1.0 mg/dL AO ADM SS Calcium [Mass/Vol] 8.5 mg/dL Invalid Interpretation Code 8.4 - 10.2 mg/dL AO ADM SS Chloride [Moles/Vol] 109 mmol/L Invalid Interpretation Code 98 - 107 mmol/L AO ADM SS CO2 [Moles/Vol] 26 mmol/L Invalid Interpretation Code 22 - 29 mmol/L AO ADM SS Creatinine [Mass/Vol] 0.99 mg/dL Invalid Interpretation Code 0.70 - 1.30 mg/dL AO ADM SS Electrolyte Balance 11.0 mEq/L Invalid Interpretation Code 4.0 - 15.0 mEq/L AO ADM SS GFR 100 ml/min/1.73sqm Invalid Interpretation Code AO Chemistry S GFR Non- 82 ml/min/1.73sqm Invalid Interpretation Code AO Chemistry S Globulin 3.2 G/dL Invalid Interpretation Code AO ADM SS Glucose [Mass/Vol] 124 mg/dL Invalid Interpretation Code 70 - 105 mg/dL AO ADM SS Potassium [Moles/Vol] 3.6 mmol/L Invalid Interpretation Code 3.5 - 5.1 mmol/L AO ADM SS Protein [Mass/Vol] 6.5 G/dL Invalid Interpretation Code 6.4 - 8.2 G/dL AO ADM SS Sodium [Moles/Vol] 146 mmol/L Invalid Interpretation Code 136 - 145 mmol/L AO ADM SS Troponin I.cardiac DL <= 0.01 ng/mL [Mass/Vol] ng/L Invalid Interpretation Code 0.0 - 76.2 ng/L AO ADM SS Urea nitrogen [Mass/Vol] 18 mg/dL Invalid Interpretation Code 7 - 18 mg/dL AO ADM SS Urea nitrogen/Creatinine [Mass ratio] 18 ratio Invalid Interpretation Code 7 - 27 ratio AO ADM SS LABORATORYOrdered By: Merissa Gonzales on 03-19-2022 Basophil, Absolute 0.1 103/mcL Invalid Interpretation Code 0.0 - 0.2 10^3/mcL AO Workflow SS Basophils/100 WBC (Bld) 1.0 % Invalid Interpretation Code 0.0 - 2.5 % AO Workflow SS Eosinophil, Absolute 0.3 103/mcL Invalid Interpretation Code 0.0 - 0.4 10^3/mcL AO Workflow SS Eosinophils/100 WBC (Bld) 2.9 % Invalid Interpretation Code 0.0 - 7.0 % AO Workflow SS Erythrocyte distribution width (RBC) [Ratio] 14.2 % Invalid Interpretation Code 11.5 - 14.5 % AO Workflow SS Hematocrit (Bld) [Volume fraction] 43.7 % Invalid Interpretation Code 42.0 - 52.0 % AO Workflow SS Hemoglobin (Bld) [Mass/Vol] 14.5 G/dL Invalid Interpretation Code 14.0 - 18.0 G/dL AO Workflow SS Lymphocyte, Absolute 3.1 103/mcL Invalid Interpretation Code 0.8 - 3.9 10^3/mcL AO Workflow SS Lymphocytes/100 WBC (Bld) 34.4 % Invalid Interpretation Code 10.0 - 50.0 % AO Workflow SS MCH (RBC) [Entitic mass] 26.4 pg Invalid Interpretation Code 27.0 - 31.2 pg AO Workflow SS MCHC 33.1 G/dL Invalid Interpretation Code 31.8 - 35.4 G/dL AO Workflow SS MCV (RBC) [Entitic vol] 79.8 fL Invalid Interpretation Code 80.0 - 94.0 fL AO Workflow SS Monocyte distribution width Auto (Bld) [Entitic vol] 16.62 Invalid Interpretation Code 0.00 - 20.00 AO Workflow SS Comment on above: Result Comment: For ED adult patients suspected of sepsis, MDW<=20.0 does not rule out sepsis or risk of sepsis Monocyte, Absolute 0.5 103/mcL Invalid Interpretation Code 0.2 - 1.0 10^3/mcL AO Workflow SS Monocytes/100 WBC (Bld) 5.1 % Invalid Interpretation Code 1.7 - 13.0 % AO Workflow SS Neutrophil, Absolute 5.2 103/mcL Invalid Interpretation Code 2.9 - 6.2 10^3/mcL AO Workflow SS Neutrophils/100 WBC (Bld) 56.6 % Invalid Interpretation Code 37.0 - 80.0 % AO Workflow SS Platelet mean volume (Bld) [Entitic vol] 7.8 fL Invalid Interpretation Code 7.4 - 10.4 fL AO Workflow SS Platelets (Bld) [#/Vol] 364 103/mcL Invalid Interpretation Code 130 - 400 10^3/mcL AO Workflow SS RBC (Bld) [#/Vol] 5.47 106/mcL Invalid Interpretation Code 4.04 - 6.13 10^6/mcL AO Workflow SS WBC (Bld) [#/Vol] 9.1 103/mcL Invalid Interpretation Code 4.6 - 10.8 10^3/mcL AO Workflow SS LABORATORYOrdered By: Teresa Cain on 12-31-2021 aPTT Coag (Bld) [Time] 34.0 s Invalid Interpretation Code 24.1 - 34.9 seconds AO Coag SS Basophil, Absolute 0.0 103/mcL Invalid Interpretation Code 0.0 - 0.2 10^3/mcL AO Workflow SS Basophils/100 WBC (Bld) 0.4 % Invalid Interpretation Code 0.0 - 2.5 % AO Workflow SS Eosinophil, Absolute 0.3 103/mcL Invalid Interpretation Code 0.0 - 0.4 10^3/mcL AO Workflow SS Eosinophils/100 WBC (Bld) 3.7 % Invalid Interpretation Code 0.0 - 7.0 % AO Workflow SS Erythrocyte distribution width (RBC) [Ratio] 14.3 % Invalid Interpretation Code 11.5 - 14.5 % AO Workflow SS Hematocrit (Bld) [Volume fraction] 40.8 % Invalid Interpretation Code 42.0 - 52.0 % AO Workflow SS Hemoglobin (Bld) [Mass/Vol] 13.8 G/dL Invalid Interpretation Code 14.0 - 18.0 G/dL AO Workflow SS Heparin dose (APTT) None Invalid Interpretation Code AO Coag SS INR Coag (PPP) [Relative time] 1.1 {INR} Invalid Interpretation Code 0.9 - 1.2 ratio AO Coag SS Lymphocyte, Absolute 3.0 103/mcL Invalid Interpretation Code 0.8 - 3.9 10^3/mcL AO Workflow SS Lymphocytes/100 WBC (Bld) 38.1 % Invalid Interpretation Code 10.0 - 50.0 % AO Workflow SS MCH (RBC) [Entitic mass] 27.1 pg Invalid Interpretation Code 27.0 - 31.2 pg AO Workflow SS MCHC 33.9 G/dL Invalid Interpretation Code 31.8 - 35.4 G/dL AO Workflow SS MCV (RBC) [Entitic vol] 80.0 fL Invalid Interpretation Code 80.0 - 94.0 fL AO Workflow SS Monocyte, Absolute 0.6 103/mcL Invalid Interpretation Code 0.2 - 1.0 10^3/mcL AO Workflow SS Monocytes/100 WBC (Bld) 8.0 % Invalid Interpretation Code 1.7 - 13.0 % AO Workflow SS Neutrophil, Absolute 3.9 103/mcL Invalid Interpretation Code 2.9 - 6.2 10^3/mcL AO Workflow SS Neutrophils/100 WBC (Bld) 49.8 % Invalid Interpretation Code 37.0 - 80.0 % AO Workflow SS Platelet mean volume (Bld) [Entitic vol] 7.6 fL Invalid Interpretation Code 7.4 - 10.4 fL AO Workflow SS Platelets (Bld) [#/Vol] 352 103/mcL Invalid Interpretation Code 130 - 400 10^3/mcL AO Workflow SS PT Coag (PPP) [Time] 12.2 s Invalid Interpretation Code 9.7 - 13.9 seconds AO Coag SS RBC (Bld) [#/Vol] 5.10 106/mcL Invalid Interpretation Code 4.04 - 6.13 10^6/mcL AO Workflow SS WBC (Bld) [#/Vol] 7.8 103/mcL Invalid Interpretation Code 4.6 - 10.8 10^3/mcL AO Workflow SS LABORATORYOrdered By: Loren Gonzalez on 12-31-2021 Calcium [Mass/Vol] 8.6 mg/dL Invalid Interpretation Code 8.4 - 10.2 mg/dL AO ADM SS Chloride [Moles/Vol] 104 mmol/L Invalid Interpretation Code 98 - 107 mmol/L AO ADM SS CO2 [Moles/Vol] 28 mmol/L Invalid Interpretation Code 22 - 29 mmol/L AO ADM SS Creatinine [Mass/Vol] 1.01 mg/dL Invalid Interpretation Code 0.70 - 1.30 mg/dL AO ADM SS Electrolyte Balance 9.0 mEq/L Invalid Interpretation Code 4.0 - 15.0 mEq/L AO ADM SS Glucose [Mass/Vol] 94 mg/dL Invalid Interpretation Code 70 - 105 mg/dL AO ADM SS Potassium [Moles/Vol] 4.0 mmol/L Invalid Interpretation Code 3.5 - 5.1 mmol/L AO ADM SS Sodium [Moles/Vol] 141 mmol/L Invalid Interpretation Code 136 - 145 mmol/L AO ADM SS Troponin I.cardiac DL <= 0.01 ng/mL [Mass/Vol] 6.0 ng/L Invalid Interpretation Code 0.0 - 76.2 ng/L AO ADM SS Urea nitrogen [Mass/Vol] 14 mg/dL Invalid Interpretation Code 7 - 18 mg/dL AO ADM SS Urea nitrogen/Creatinine [Mass ratio] 14 ratio Invalid Interpretation Code 7 - 27 ratio AO ADM SS LABORATORYOrdered By: Parudi SYSTEM on 12-31-2021 GFR 97 ml/min/1.73sqm Invalid Interpretation Code AO Chemistry S GFR Non- 80 ml/min/1.73sqm Invalid Interpretation Code AO Chemistry S Monocyte distribution width Auto (Bld) [Entitic vol] Not Performed 1 *NA* (12/31/21 4:23 PM) Invalid Interpretation Code 0.00 - 20.00 AO Hematology S Comment on above: Result Comment: MDW testing performed only on adult ER patients between the ages of 18-89 years. LABORATORYOrdered By: SYSTEM SYSTEM on 12-30-2021 Basophils (Bld) [#/Vol] 0.0 103/mcL Invalid Interpretation Code 0.0 - 0.3 10^3/mcL AH Workflow SS Basophils/100 WBC (Bld) 0.8 % Invalid Interpretation Code 0.0 - 2.5 % AH Workflow SS Calcium [Mass/Vol] 8.2 mg/dL Invalid Interpretation Code 8.7 - 10.4 mg/dL AH ADM SS Chloride [Moles/Vol] 107 mmol/L Invalid Interpretation Code 98 - 110 mEq/L AH ADM SS CO2 [Moles/Vol] 27 mmol/L Invalid Interpretation Code 22 - 32 mEq/L ADM SS Creatinine [Mass/Vol] 0.82 mg/dL Invalid Interpretation Code 0.60 - 1.40 mg/dL ADM SS Electrolyte Balance 5.0 mEq/L Invalid Interpretation Code 4.0 - 15.0 mEq/L ADM SS Eosinophils (Bld) [#/Vol] 0.3 103/mcL Invalid Interpretation Code 0.0 - 0.7 10^3/mcL Workflow SS Eosinophils/100 WBC (Bld) 5.5 % Invalid Interpretation Code 0.0 - 6.0 % Workflow SS Erythrocyte distribution width (RBC) [Ratio] 14.5 % Invalid Interpretation Code 11.5 - 15.5 % Workflow SS GFR/1.73 sq M.predicted among blacks MDRD (S/P/Bld) [Vol rate/Area] ml/min/1.73sqm Invalid Interpretation Code Chemistry S GFR/1.73 sq M.predicted among non-blacks MDRD (S/P/Bld) [Vol rate/Area] ml/min/1.73sqm Invalid Interpretation Code Chemistry S Glucose [Mass/Vol] 106 mg/dL Invalid Interpretation Code 70 - 110 mg/dL ADM SS Hematocrit (Bld) [Volume fraction] 39.0 % Invalid Interpretation Code 40.0 - 52.0 % Workflow SS Hemoglobin (Bld) [Mass/Vol] 12.9 G/dL Invalid Interpretation Code 13.0 - 17.5 G/dL Workflow SS Lymphocytes (Bld) [#/Vol] 2.2 103/mcL Invalid Interpretation Code 0.9 - 4.3 10^3/mcL Workflow SS Lymphocytes/100 WBC (Bld) 36.3 % Invalid Interpretation Code 20.0 - 40.0 % Workflow SS Magnesium [Mass/Vol] 2.0 mg/dL Invalid Interpretation Code 1.6 - 2.4 mg/dL ADM SS MCH (RBC) [Entitic mass] 26.9 pg Invalid Interpretation Code 27.0 - 33.0 pg Workflow SS MCHC 32.9 G/dL Invalid Interpretation Code 32.0 - 36.0 G/dL Workflow SS MCV (RBC) [Entitic vol] 81.6 fL Invalid Interpretation Code 81.0 - 100.0 fL Workflow SS Monocytes (Bld) [#/Vol] 0.7 103/mcL Invalid Interpretation Code 0.1 - 1.4 10^3/mcL AH Workflow SS Monocytes/100 WBC (Bld) 10.9 % Invalid Interpretation Code 2.0 - 13.0 % AH Workflow SS Neutrophils (Bld) [#/Vol] 2.9 103/mcL Invalid Interpretation Code 2.3 - 8.1 10^3/mcL AH Workflow SS Neutrophils/100 WBC (Bld) 46.5 % Invalid Interpretation Code 50.0 - 75.0 % AH Workflow SS Platelet mean volume (Bld) [Entitic vol] 7.0 fL Invalid Interpretation Code 6.4 - 10.5 fL AH Workflow SS Platelets (Bld) [#/Vol] 248 103/mcL Invalid Interpretation Code 150 - 450 10^3/mcL AH Workflow SS Potassium [Moles/Vol] 4.1 mmol/L Invalid Interpretation Code 3.5 - 5.0 mEq/L AH ADM SS RBC (Bld) [#/Vol] 4.78 106/mcL Invalid Interpretation Code 4.50 - 6.00 10^6/mcL AH Workflow SS Sodium [Moles/Vol] 139 mmol/L Invalid Interpretation Code 136 - 145 mEq/L AH ADM SS Urea nitrogen [Mass/Vol] 14.0 mg/dL Invalid Interpretation Code 8.0 - 22.0 mg/dL AH ADM SS Urea nitrogen/Creatinine [Mass ratio] 17.1 ratio Invalid Interpretation Code 10.0 - 22.0 ratio AH ADM SS WBC (Bld) [#/Vol] 6.1 103/mcL Invalid Interpretation Code 4.5 - 10.8 10^3/mcL AH Workflow SS LABORATORYOrdered By: Joselin Temple on 12-29-2021 Appearance (U) Clear (12/29/21 9:52 AM) Invalid Interpretation Code Clear AH Auto Urine SS Bilirubin Ql (U) Negative (12/29/21 9:52 AM) Invalid Interpretation Code Neg-Trace AH Auto Urine SS Color (U) Dark Yellow *NA* (12/29/21 9:52 AM) Invalid Interpretation Code AH Auto Urine SS Glucose Test strip (U) [Mass/Vol] Negative Invalid Interpretation Code Negativemg/ dL AH Auto Urine SS Hemoglobin Auto test strip (U) [Mass/Vol] Negative (12/29/21 9:52 AM) Invalid Interpretation Code Neg-Trace AH Auto Urine SS Ketones Ql (U) Negative Invalid Interpretation Code Neg-Tracemg /dL AH Auto Urine SS UA Leuk Est Negative (12/29/21 9:52 AM) Invalid Interpretation Code Negative AH Auto Urine SS UA Nitrite Negative (12/29/21 9:52 AM) Invalid Interpretation Code Negative AH Auto Urine SS UA pH 5.0 (12/29/21 9:52 AM) Invalid Interpretation Code 5.0 - 8.0 AH Auto Urine SS UA Protein Negative Invalid Interpretation Code Negativemg/ dL AH Auto Urine SS UA Spec Grav >=1.030 *ABN* (12/29/21 9:52 AM) Invalid Interpretation Code 1.006-1.029 AH Auto Urine SS UA Specimen Type Clean Catch (12/29/21 9:52 AM) Invalid Interpretation Code AH Auto Urine SS UA Urobilinogen 0.2 E.U./dL Invalid Interpretation Code 0.2-1.0E.U. /dL AH Auto Urine SS LABORATORYOrdered By: Adriana selby on 12-29-2021 Drug Screen Urine Positive *ABN* (12/29/21 9:52 AM) Invalid Interpretation Code Chemistry S Drug Screen Urine Interp Positive Invalid Interpretation Code Chemistry S pH (U) 5.0 [pH] Invalid Interpretation Code 5.0 - 8.0 AH Chemistry S Specific gravity (U) [Rel density] 1.030 Invalid Interpretation Code 1.005 - 1.030 Chemistry S Urine Drugs screened: See Below (12/29/21 9:52 AM) Invalid Interpretation Code Chemistry S Cholesterol [Mass/Vol] 159 mg/dL Invalid Interpretation Code 50 - 199 mg/dL AH ADM SS Cholesterol in HDL [Mass/Vol] 24 mg/dL Invalid Interpretation Code 40 - 59 mg/dL AH ADM SS Cholesterol in LDL [Mass/Vol] 117 mg/dL Invalid Interpretation Code 0 - 129 mg/dL AH ADM SS Triglyceride [Mass/Vol] 91 mg/dL Invalid Interpretation Code 3 - 149 mg/dL AH ADM SS LABORATORYOrdered By: SYSTEM SYSTEM on 12-29-2021 Troponin I.cardiac DL <= 0.01 ng/mL [Mass/Vol] ng/L Invalid Interpretation Code 0.00 - 54.00 ng/L AH ADM SS TSH Qn 1.146 mIU/mL Invalid Interpretation Code 0.550 - 4.780 mIU/mL AH ADM SS Albumin BCP dye [Mass/Vol] 3.3 G/dL Invalid Interpretation Code 3.2 - 4.8 G/dL ADM SS Albumin/Globulin [Mass ratio] 1.1 {ratio} Invalid Interpretation Code 0.9 - 1.6 ratio ADM SS ALP [Catalytic activity/Vol] 120 U/L Invalid Interpretation Code 38 - 126 U/L ADM SS ALT No additional P-5'-P [Catalytic activity/Vol] 49 U/L Invalid Interpretation Code 12 - 55 U/L ADM SS AST [Catalytic activity/Vol] 32 U/L Invalid Interpretation Code 8 - 34 U/L ADM SS Basophils (Bld) [#/Vol] 0.0 103/mcL Invalid Interpretation Code 0.0 - 0.3 10^3/mcL Workflow SS Basophils/100 WBC (Bld) 0.6 % Invalid Interpretation Code 0.0 - 2.5 % Workflow SS Bilirubin [Mass/Vol] 0.60 mg/dL Invalid Interpretation Code 0.20 - 1.20 mg/dL ADM SS Calcium [Mass/Vol] 8.4 mg/dL Invalid Interpretation Code 8.7 - 10.4 mg/dL ADM SS Chloride [Moles/Vol] 101 mmol/L Invalid Interpretation Code 98 - 110 mEq/L ADM SS CO2 [Moles/Vol] 26 mmol/L Invalid Interpretation Code 22 - 32 mEq/L ADM SS Creatinine [Mass/Vol] 0.99 mg/dL Invalid Interpretation Code 0.60 - 1.40 mg/dL ADM SS Electrolyte Balance 7.0 mEq/L Invalid Interpretation Code 4.0 - 15.0 mEq/L ADM SS Eosinophils (Bld) [#/Vol] 0.0 103/mcL Invalid Interpretation Code 0.0 - 0.7 10^3/mcL Workflow SS Eosinophils/100 WBC (Bld) 0.3 % Invalid Interpretation Code 0.0 - 6.0 % Workflow SS Erythrocyte distribution width (RBC) [Ratio] 14.0 % Invalid Interpretation Code 11.5 - 15.5 % Workflow SS GFR/1.73 sq M.predicted among blacks MDRD (S/P/Bld) [Vol rate/Area] ml/min/1.73sqm Invalid Interpretation Code Chemistry S GFR/1.73 sq M.predicted among non-blacks MDRD (S/P/Bld) [Vol rate/Area] ml/min/1.73sqm Invalid Interpretation Code Chemistry S Globulin 3.0 G/dL Invalid Interpretation Code 1.5 - 3.8 G/dL ADM SS Glucose [Mass/Vol] 108 mg/dL Invalid Interpretation Code 70 - 110 mg/dL ADM SS HbA1c (Bld) [Mass fraction] 5.5 % Invalid Interpretation Code 4.0 - 6.0 % Auto Chem SS Hematocrit (Bld) [Volume fraction] 38.5 % Invalid Interpretation Code 40.0 - 52.0 % AH Workflow SS Hemoglobin (Bld) [Mass/Vol] 12.9 G/dL Invalid Interpretation Code 13.0 - 17.5 G/dL AH Workflow SS Lipase [Catalytic activity/Vol] 30 U/L Invalid Interpretation Code 12 - 53 U/L ADM SS Lymphocytes (Bld) [#/Vol] 1.3 103/mcL Invalid Interpretation Code 0.9 - 4.3 10^3/mcL Workflow SS Lymphocytes/100 WBC (Bld) 19.3 % Invalid Interpretation Code 20.0 - 40.0 % Workflow SS MCH (RBC) [Entitic mass] 27.2 pg Invalid Interpretation Code 27.0 - 33.0 pg AH Workflow SS MCHC 33.5 G/dL Invalid Interpretation Code 32.0 - 36.0 G/dL AH Workflow SS MCV (RBC) [Entitic vol] 81.2 fL Invalid Interpretation Code 81.0 - 100.0 fL Workflow SS Monocytes (Bld) [#/Vol] 0.5 103/mcL Invalid Interpretation Code 0.1 - 1.4 10^3/mcL Workflow SS Monocytes/100 WBC (Bld) 7.2 % Invalid Interpretation Code 2.0 - 13.0 % Workflow SS Neutrophils (Bld) [#/Vol] 4.8 103/mcL Invalid Interpretation Code 2.3 - 8.1 10^3/mcL Workflow SS Neutrophils/100 WBC (Bld) 72.6 % Invalid Interpretation Code 50.0 - 75.0 % Workflow SS Platelet mean volume (Bld) [Entitic vol] 7.1 fL Invalid Interpretation Code 6.4 - 10.5 fL Workflow SS Platelets (Bld) [#/Vol] 284 103/mcL Invalid Interpretation Code 150 - 450 10^3/mcL Workflow SS Potassium [Moles/Vol] 4.0 mmol/L Invalid Interpretation Code 3.5 - 5.0 mEq/L AH ADM SS Protein [Mass/Vol] 6.3 G/dL Invalid Interpretation Code 5.7 - 8.2 G/dL AH ADM SS RBC (Bld) [#/Vol] 4.74 106/mcL Invalid Interpretation Code 4.50 - 6.00 10^6/mcL AH Workflow SS Sodium [Moles/Vol] 134 mmol/L Invalid Interpretation Code 136 - 145 mEq/L AH ADM SS Urea nitrogen [Mass/Vol] 16.0 mg/dL Invalid Interpretation Code 8.0 - 22.0 mg/dL AH ADM SS Urea nitrogen/Creatinine [Mass ratio] 16.2 ratio Invalid Interpretation Code 10.0 - 22.0 ratio AH ADM SS WBC (Bld) [#/Vol] 6.6 103/mcL Invalid Interpretation Code 4.5 - 10.8 10^3/mcL AH Workflow SS LABORATORYOrdered By: Tono Haley on 12-29-2021 ESR 15 minute reading (Bld) [Velocity] 24 mm/hr Invalid Interpretation Code 0 - 15 mm/hr Manual Heme SS LABORATORYOrdered By: Ramo Bhakta on 12-29-2021 Lactate [Moles/Vol] 0.7 mmol/L Invalid Interpretation Code 0.2 - 2.0 mmol/L Auto Chem SS LABORATORYOrdered By: Nancy Varela on 12-29-2021 ADMITTED TO INTENSIVE CARE UNIT FOR CONDITION OF INTEREST:FIND:PT:^BLANCHE ENT:ORD: No (12/29/21 2:04 AM) Invalid Interpretation Code AO Auto Urine SS EMPLOYED IN A HEALTHCARE SETTING:FIND:PT:^PATIE NT:ORD: No (12/29/21 2:04 AM) Invalid Interpretation Code AO Auto Urine SS FIRST TEST FOR CONDITION OF INTEREST:FIND:PT:^BLANCHE ENT:ORD: Unknown (12/29/21 2:04 AM) Invalid Interpretation Code AO Auto Urine SS HAS SYMPTOMS RELATED TO CONDITION OF INTEREST:FIND:PT:^BLANCHE ENT:ORD: Yes (12/29/21 2:04 AM) Invalid Interpretation Code AO Auto Urine SS Illness or injury onset date and time [id number] Invalid Interpretation Code AO Auto Urine SS Patient was hospitalized because of this condition Yes (12/29/21 2:04 AM) Invalid Interpretation Code AO Auto Urine SS status Not (12/29/21 2:04 AM) Invalid Interpretation Code AO Auto Urine SS RESIDES IN A CONGREGATE CARE SETTING:FIND:PT:^MICHELE NT:ORD: Unknown (12/29/21 2:04 AM) Invalid Interpretation Code AO Auto Urine SS SARS-CoV-2 (COVID-19) RNA JOSE+probe Ql (Resp) Negative results do not preclude SARS-CoV-2 infection and should not be used as the sole basis for patient management decisions. Negative results must be combined with clinical observations, patient history, and epidemiological information.There is a risk of false negative values resulting from improperly collected, transported, or handled specimens.There is a risk of false negative values due to the presence of sequence variants in the pathogen targets of the assay, procedural errors, amplification inhibitors in specimens, or inadequate numbers of organisms for amplification.ERON SARS-CoV-2 Assay is a Real-Time reverse-transcriptase polymerase chain reaction (RT-PCR) based qualitative in vitro diagnostic test intended for the qualitative detection of nucleic acid from the SARS-CoV-2 in nasopharyngeal swab specimens collected from individuals suspected of COVID-19 by their healthcare provider. Testing is limited to laboratories certified under the Clinical Laboratory Improvement Amendments of 1988 (CLIA), 42 U.S.C. 263a, to perform moderate and high complexity tests. Invalid Interpretation Code AO Auto Urine SS No Panel Informationon 12-29 Microscopic examination of blood, culture Culture has been received in lab and is no growth to date. Routine cultures are held for 5 days. [facility] LABORATORYOrdered By: Nancy Varela on 12-28-2021 Basophil, Absolute 0.1 103/mcL Invalid Interpretation Code 0.0 - 0.2 10^3/mcL AO Workflow SS Basophils/100 WBC (Bld) 1.0 % Invalid Interpretation Code 0.0 - 2.5 % AO Workflow SS Calcium [Mass/Vol] 8.8 mg/dL Invalid Interpretation Code 8.4 - 10.2 mg/dL AO ADM SS Chloride [Moles/Vol] 102 mmol/L Invalid Interpretation Code 98 - 107 mmol/L AO ADM SS CO2 [Moles/Vol] 23 mmol/L Invalid Interpretation Code 22 - 29 mmol/L AO ADM SS Creatinine [Mass/Vol] 1.04 mg/dL Invalid Interpretation Code 0.70 - 1.30 mg/dL AO ADM SS Electrolyte Balance 12.0 mEq/L Invalid Interpretation Code 4.0 - 15.0 mEq/L AO ADM SS Eosinophil, Absolute 0.1 103/mcL Invalid Interpretation Code 0.0 - 0.4 10^3/mcL AO Workflow SS Eosinophils/100 WBC (Bld) 1.1 % Invalid Interpretation Code 0.0 - 7.0 % AO Workflow SS Erythrocyte distribution width (RBC) [Ratio] 14.5 % Invalid Interpretation Code 11.5 - 14.5 % AO Workflow SS Glucose [Mass/Vol] 108 mg/dL Invalid Interpretation Code 70 - 105 mg/dL AO ADM SS Hematocrit (Bld) [Volume fraction] 41.3 % Invalid Interpretation Code 42.0 - 52.0 % AO Workflow SS Hemoglobin (Bld) [Mass/Vol] 13.9 G/dL Invalid Interpretation Code 14.0 - 18.0 G/dL AO Workflow SS Lymphocyte, Absolute 1.0 103/mcL Invalid Interpretation Code 0.8 - 3.9 10^3/mcL AO Workflow SS Lymphocytes/100 WBC (Bld) 10.4 % Invalid Interpretation Code 10.0 - 50.0 % AO Workflow SS MCH (RBC) [Entitic mass] 27.0 pg Invalid Interpretation Code 27.0 - 31.2 pg AO Workflow SS MCHC 33.6 G/dL Invalid Interpretation Code 31.8 - 35.4 G/dL AO Workflow SS MCV (RBC) [Entitic vol] 80.3 fL Invalid Interpretation Code 80.0 - 94.0 fL AO Workflow SS Monocyte distribution width Auto (Bld) [Entitic vol] 18.68 Invalid Interpretation Code 0.00 - 20.00 AO Workflow SS Comment on above: Result Comment: For ED adult patients suspected of sepsis, MDW<=20.0 does not rule out sepsis or risk of sepsis Monocyte, Absolute 0.4 103/mcL Invalid Interpretation Code 0.2 - 1.0 10^3/mcL AO Workflow SS Monocytes/100 WBC (Bld) 4.4 % Invalid Interpretation Code 1.7 - 13.0 % AO Workflow SS Neutrophil, Absolute 8.2 103/mcL Invalid Interpretation Code 2.9 - 6.2 10^3/mcL AO Workflow SS Neutrophils/100 WBC (Bld) 83.1 % Invalid Interpretation Code 37.0 - 80.0 % AO Workflow SS Platelet mean volume (Bld) [Entitic vol] 7.0 fL Invalid Interpretation Code 7.4 - 10.4 fL AO Workflow SS Platelets (Bld) [#/Vol] 317 103/mcL Invalid Interpretation Code 130 - 400 10^3/mcL AO Workflow SS Potassium [Moles/Vol] 4.0 mmol/L Invalid Interpretation Code 3.5 - 5.1 mmol/L AO ADM SS RBC (Bld) [#/Vol] 5.14 106/mcL Invalid Interpretation Code 4.04 - 6.13 10^6/mcL AO Workflow SS Sodium [Moles/Vol] 137 mmol/L Invalid Interpretation Code 136 - 145 mmol/L AO ADM SS Troponin I.cardiac DL <= 0.01 ng/mL [Mass/Vol] 8.3 ng/L Invalid Interpretation Code 0.0 - 76.2 ng/L AO ADM SS Urea nitrogen [Mass/Vol] 19 mg/dL Invalid Interpretation Code 7 - 18 mg/dL AO ADM SS Urea nitrogen/Creatinine [Mass ratio] 18 ratio Invalid Interpretation Code 7 - 27 ratio AO ADM SS WBC (Bld) [#/Vol] 9.8 103/mcL Invalid Interpretation Code 4.6 - 10.8 10^3/mcL AO Workflow SS LABORATORYOrdered By: SYSTEM SYSTEM on 12-28-2021 GFR 94 ml/min/1.73sqm Invalid Interpretation Code AO Chemistry S GFR Non- 78 ml/min/1.73sqm Invalid Interpretation Code AO Chemistry S MRI ELBOW WO IVCON LTon 11-22 [facility] Absolute lymphocyte counton 11-26-2021 Lymphocytes Auto (Unsp spec) [#/Vol] 4.18 10*3/uL 0.83-4.51 [facility] Work Phone: Basophil percentageon 2021 Basophils/100 WBC (Bld) 0.6 % 0-1 [facility] Work Phone: Chloride [Moles/Vol] 107 mmol/L 98-107 [facility] Work Phone: Eosinophils/100 WBC (Bld) 4.2 % 0-5 [facility] Work Phone: Glucose [Mass/Vol] 107 mg/dL 74-106 [facility] Work Phone: Comment on above: Fasting Glucose resu lt from 100 to 125 mg/dL suggests IMPAIRED HOMEOSTASIS per A.D.A. criteria. Lactate [Moles/Vol] 0.7 mmol/L 0.4-2.0 [facility] Work Phone: Neutrophils (Bld) [#/Vol] 6.0 10*3/uL 2.0-7.7 [facility] Work Phone: Neutrophils/100 WBC (Bld) 52.4 % 47-70 [facility] Work Phone: [phone] Potassium [Moles/Vol] 3.9 mmol/L 3.5-5.1 [place] Work Phone: Comment on above: Slight Hemolysis, Re sult may be falsely increased. Sodium [Moles/Vol] 139 mmol/L 136-145 [facility] Work Phone: WBC (Bld) [#/Vol] 11.5 10*3/uL 4.4-11.0 [facility] Work Phone: Blood erythrocytes count (nu mber/volume)on 11-26-2021 RBC (Bld) [#/Vol] 4.98 10*6/uL 4.6-6.2 [facility] Work Phone: Blood hemoglobin measurement (mass/volume)on 11-26-2021 Hemoglobin (Bld) [Mass/Vol] 13.5 g/dL 13.0-16.5 [facility] Work Phone: [phone] Blood lymphocytes/100 leukoc yteson 11-26-2021 Lymphocytes/100 WBC (Bld) 36.3 % 19-41 [facility] Work Phone: [phone] Blood monocytes/100 leukocyt eson 11-26-2021 Monocytes/100 WBC (Bld) 6.1 % 0-10 [facility] Work Phone: [phone] Blood platelet mean volumeon 11-26-2021 Platelet mean volume (Bld) [Entitic vol] 9.6 fL 6.2-12.0 [facility] Work Phone: Determination of erythrocyte mean corpuscular volume (MCV)on 11-26-2021 MCV (RBC) [Entitic vol] 82.1 fL 80-94 [facility] Work Phone: Erythrocyte sedimentation ra neha 11-26-2021 ESR (Bld) [Velocity] 28 mm/h 0-20 [facility] Work Phone: Hematocrit Auto (Bld) [Volum e fraction]on 11-26-2021 Hematocrit (Bld) [Volume fraction] 40.9 % 40-54 [facility] Work Phone: Laboratory - Chemistry and C hemistry - challengeon 11-26-2021 CO2 [Moles/Vol] 26.0 mmol/L 21.0-32.0 [facility] Work Phone: Urea nitrogen/Creatinine [Mass ratio] 19.3 mg/mg 10-20 [facility] Work Phone: Laboratory - Hematology and Cell countson 11-26-2021 Erythrocyte distribution width (RBC) [Entitic vol] 40.5 fL 35.1-43.9 [facility] Work Phone: Erythrocyte distribution width (RBC) [Ratio] 13.7 % 11.6-14.6 [facility] Work Phone: Immature granulocytes/100 WBC (Bld) 0.400 % 0.0-0.9 [facility] Work Phone: Comment on above: IG% - Immature Granu locytes (promyelocytes, myelocytes and metamyelocytes) > 1% indicates that a LEFT SHIFT is Present. MCH (RBC) [Entitic mass] 27.1 pg 27.0-32.0 [facility] Work Phone: Nucleated RBC/100 WBC (Bld) [Ratio] 0 % 0-5 [facility] Work Phone: MCHC Auto (RBC) [Mass/Vol]on 11-26-2021 MCHC (RBC) [Mass/Vol] 33.0 g/dL 32-36 [place] Work Phone: No Panel Informationon 11-26 Estimated Creatinine Clearance Calc 94.77 ml/min [facility] Work Phone: Estimated GFR (MDRD) Amer 113 mL/min >60 [facility] Work Phone: Comment on above: GFR Calc Estimated GFR (MDRD) Non-Af Amer 93 mL/min >60 [facility] Work Phone: Comment on above: Non- GFR Calc Platelets bldon 11-26-2021 Platelets (Bld) [#/Vol] 356 10*3/uL 150-450 [facility] Work Phone: Serum or plasma C reactive p rotein measurement (mass/volume)on 11-26-2021 CRP [Mass/Vol] 11.20 mg/L 0.0-3.0 [facility] Work Phone: Comment on above: C-Reactive Protein ( CRP) provides useful information for thediagnosis, therapy and monitoring of inflammatory processesand associated diseases. For the evaluation of Relative Riskfor Cardiovascular Disease, a High Sensitivity CRP (HSCRP)should be ordered. Serum or plasma calcium paramjit urement (mass/volume)on 11-26-2021 Calcium [Mass/Vol] 8.7 mg/dL 8.5-10.1 [facility] Work Phone: Serum or plasma creatinine m easurement (mass/volume)on 11-26-2021 Creatinine [Mass/Vol] 0.93 mg/dL 0.70-1.30 [place] Work Phone: Comment on above: The validity of the calculated GFR & GFRAA in patients over 70 years has not been determined. Clinical correlation is essential. Serum or plasma urea nitroge n measurement (mass/volume)on 11-26-2021 Urea nitrogen [Mass/Vol] 18 mg/dL 7-18 [facility] Work Phone: Thin prep Papanicolaou smear with manual screeningon 09-05-2022 Thin prep Papanicolaou smear with manual screening 6 5-15 [facility] Work Phone: XR ELBOW SPECIAL VIEWS AP/LA T/OTHER LEFTon 11-21-2021 [facility] Absolute lymphocyte counton 08-25-2021 Lymphocytes Auto (Unsp spec) [#/Vol] 3.40 10*3/uL 0.83-4.51 [facility] Work Phone: Basophil percentageon 2021 Basophils/100 WBC (Bld) 0.6 % 0-1 [facility] Work Phone: Bilirubin [Mass/Vol] 0.40 mg/dL 0.20-1.00 [facility] Work Phone: Comment on above: For patients on eltr ombopag therapy, use of Dimension [place] TBIL is not recommended. Chloride [Moles/Vol] 105 mmol/L 98-107 [facility] Work Phone: Cholesterol [Mass/Vol] 167 mg/dL <200 [facility] Work Phone: Comment on above: <200 mg/dL Desirable 200-240 mg/dL Borderline >240 mg/dL High Risk Eosinophils/100 WBC (Bld) 4.6 % 0-5 [facility] Work Phone: Glucose [Mass/Vol] 96 mg/dL 74-106 [facility] Work Phone: Neutrophils (Bld) [#/Vol] 4.0 10*3/uL 2.0-7.7 [facility] Work Phone: Neutrophils/100 WBC (Bld) 47.4 % 47-70 [facility] Work Phone: Potassium [Moles/Vol] 4.1 mmol/L 3.5-5.1 [place] Work Phone: Protein [Mass/Vol] 7.0 g/dL 6.4-8.2 [facility] Work Phone: Sodium [Moles/Vol] 137 mmol/L 136-145 [facility] Work Phone: Triglyceride [Mass/Vol] 74 mg/dL <199 [facility] Work Phone: Comment on above: The drugs N-Acetylcy steine and Metamizole may falsely depress this assay.Serum Triglycerides Reference Interval Normal <150 mg/dL Borderline high 150 - 199 mg/dL High 200 - 499 mg/dL Very High > or = 500 mg/dL WBC (Bld) [#/Vol] 8.4 10*3/uL 4.4-11.0 [facility] Work Phone: Blood erythrocytes count (nu mber/volume)on 08-25-2021 RBC (Bld) [#/Vol] 5.09 10*6/uL 4.6-6.2 [facility] Work Phone: Blood hemoglobin measurement (mass/volume)on 08-25-2021 Hemoglobin (Bld) [Mass/Vol] 13.8 g/dL 13.0-16.5 [facility] Work Phone: Blood lymphocytes/100 leukoc yteson 08-25-2021 Lymphocytes/100 WBC (Bld) 40.5 % 19-41 [facility] Work Phone: Blood monocytes/100 leukocyt eson 08-25-2021 Monocytes/100 WBC (Bld) 6.7 % 0-10 [facility] Work Phone: Blood platelet mean volumeon 08-25-2021 Platelet mean volume (Bld) [Entitic vol] 9.2 fL 6.2-12.0 [facility] Work Phone: Determination of erythrocyte mean corpuscular volume (MCV)on 08-25-2021 MCV (RBC) [Entitic vol] 82.1 fL 80-94 [facility] Work Phone: Hematocrit Auto (Bld) [Volum e fraction]on 08-25-2021 Hematocrit (Bld) [Volume fraction] 41.8 % 40-54 [facility] Work Phone: Iron measurement (mass/mass) on 08-25-2021 Iron (Unsp spec) [Mass/Mass] 82 ug/dL 65-175 [facility] Work Phone: Laboratory - Chemistry and C hemistry - challengeon 08-25-2021 ALP [Catalytic activity/Vol] 102 U/L 45-117 [facility] Work Phone: ALT [Catalytic activity/Vol] 37 U/L 16-61 [facility] Work Phone: [phone] CO2 [Moles/Vol] 26.0 mmol/L 21.0-32.0 [facility] Work Phone: [phone] Globulin (S) [Mass/Vol] 3.7 g/dL 2.2-4.2 [facility] Work Phone: [phone] Magnesium [Mass/Vol] 2.1 mg/dL 1.6-2.6 [facility] Work Phone: Urea nitrogen/Creatinine [Mass ratio] 19.7 mg/mg 10-20 [facility] Work Phone: [phone] Laboratory - Hematology and Cell countson 08-25-2021 Erythrocyte distribution width (RBC) [Entitic vol] 40.6 fL 35.1-43.9 [facility] Work Phone: Erythrocyte distribution width (RBC) [Ratio] 13.6 % 11.6-14.6 [facility] Work Phone: Immature granulocytes/100 WBC (Bld) 0.200 % 0.0-0.9 [facility] Work Phone: [phone] Comment on above: IG% - Immature Granu locytes (promyelocytes, myelocytes and metamyelocytes) > 1% indicates that a LEFT SHIFT is Present. MCH (RBC) [Entitic mass] 27.1 pg 27.0-32.0 [facility] Work Phone: [phone] Nucleated RBC/100 WBC (Bld) [Ratio] 0 % 0-5 [facility] Work Phone: Lower GI hemoglobin IA Ql (S tl)on 08-25-2021 Stool Occult Blood (VIOLETTE) Positive [facility] Work Phone: MCHC Auto (RBC) [Mass/Vol]on 08-25-2021 MCHC (RBC) [Mass/Vol] 33.0 g/dL 32-36 [place] Work Phone: No Panel Informationon 08-25 Urine Drug Screen Comment [facility] Work Phone: Comment on above: CONFIRMATORY TESTING FOR ALL POSITIVE URINE DRUG SCREENRESULTS WILL ONLY BE SENT OUT UPON PHYSICIAN ORDER. VISTA Urine Drug Screen methods provide only preliminaryanalytical test results. A more specific alternate chemicalmethod must be used in order to obtain a confirmedanalytical result. Gas chromatography/mass spectrometery(GC/MS) is the preferred confirmatory method. Clinicalconsideration and professional judgement should be appliedto any drug of abuse test result, particularly whenpreliminary positive results are used. URINE TCA TESTING MUST BE ORDERED SEPARATELY. USE TESTMNEMONIC: [facility] Estimated Creatinine Clearance Calc 102.48 ml/min [facility] Work Phone: Estimated GFR (MDRD) Amer 124 mL/min >60 [facility] Work Phone: Comment on above: GFR Calc Estimated GFR (MDRD) Non-Af Amer 102 mL/min >60 [facility] Work Phone: Comment on above: Non- GFR Calc Thyroid Stimulating Hormone (TSH) 2.79 uIU/mL 0.358-3.74 [facility] Work Phone: Total Iron Binding Capacity 384 ug/dL 250-450 [facility] Work Phone: Platelets bldon 08-25-2021 Platelets (Bld) [#/Vol] 325 10*3/uL 150-450 [facility] Work Phone: Serum or plasma albumin paramjit urement (mass/volume)on 08-25-2021 Albumin [Mass/Vol] 3.3 g/dL 3.2-5.0 [facility] Work Phone: Serum or plasma albumin/glob ulin mass ratioon 08-25-2021 Albumin/Globulin [Mass ratio] 0.9 {ratio} 0.9-2.4 [facility] Work Phone: Serum or plasma calcium paramjit urement (mass/volume)on 08-25-2021 Calcium [Mass/Vol] 8.6 mg/dL 8.5-10.1 [facility] Work Phone: Serum or plasma cholesterol in HDL measurement (mass/volume)on 08-25-2021 Cholesterol in HDL [Mass/Vol] 34 mg/dL >40 [facility] Work Phone: Comment on above: The drugs N-Acetylcy steine and Metamizole may falsely depress this assay. Reference Range HDL <40 mg/dL Low HDL Cholesterol HDL >or= 60 mg/dL High HDL Cholesterol Serum or plasma cholesterol in VLDL measurement (mass/volume)on 08-25-2021 Cholesterol in VLDL [Mass/Vol] 15 mg/dL 5-40 [facility] Work Phone: Serum or plasma creatinine m easurement (mass/volume)on 08-25-2021 Creatinine [Mass/Vol] 0.86 mg/dL 0.70-1.30 [place] Work Phone: Comment on above: The validity of the calculated GFR & GFRAA in patients over 70 years has not been determined. Clinical correlation is essential. Serum or plasma ferritin felipa surement (mass/volume)on 08-25-2021 Ferritin [Mass/Vol] 70 ng/mL 26-388 [facility] Work Phone: Serum or plasma iron saturat ion measurement (mass fraction)on 08-25-2021 Iron saturation [Mass fraction] 21.4 % 15.0-55.0 [facility] Work Phone: Serum or plasma low density lipoprotein (LDL) cholesterol measurement (mass/volume)on 08-25-2021 Cholesterol in LDL [Mass/Vol] 118 mg/dL 0-130 [facility] Work Phone: Serum or plasma urea nitroge n measurement (mass/volume)on 08-25-2021 Urea nitrogen [Mass/Vol] 17 mg/dL 7-18 [facility] Work Phone: Thin prep Papanicolaou smear with manual screeningon 08-25-2021 Thin prep Papanicolaou smear with manual screening 18 U/L 15-37 [facility] Work Phone: Thin prep Papanicolaou smear with manual screening 6 5-15 [facility] Work Phone: Whole blood hemoglobin A1c/t otal hemoglobin ratio (mass fraction)on 08-25-2021 HbA1c (Bld) [Mass fraction] 5.5 % 3.8-5.6 [facility] Work Phone: Comment on above: Normal < 5.7 % Predi abetic 5.7 - 6.4 % Diabetic >or= 6.5 % Please note range changes. LABORATORYOrdered By: Roberth Miles on 08-24-2021 Glucose [Mass/Vol] 152 mg/dL Invalid Interpretation Code 70 - 110 mg/dL [facility] LABORATORYOrdered By: Nancy Varela on 08-24-2021 Basophil, Absolute 0.1 103/mcL Invalid Interpretation Code 0.0 - 0.2 10^3/mcL AO Workflow SS Basophils/100 WBC (Bld) 0.7 % Invalid Interpretation Code 0.0 - 2.5 % AO Workflow SS Calcium [Mass/Vol] 8.8 mg/dL Invalid Interpretation Code 8.4 - 10.2 mg/dL AO ADM SS Chloride [Moles/Vol] 102 mmol/L Invalid Interpretation Code 98 - 107 mmol/L AO ADM SS CO2 [Moles/Vol] 29 mmol/L Invalid Interpretation Code 22 - 29 mmol/L AO ADM SS Creatinine [Mass/Vol] 1.16 mg/dL Invalid Interpretation Code 0.70 - 1.30 mg/dL AO ADM SS Electrolyte Balance 6.0 mEq/L Invalid Interpretation Code 4.0 - 15.0 mEq/L AO ADM SS Eosinophil, Absolute 0.4 103/mcL Invalid Interpretation Code 0.0 - 0.4 10^3/mcL AO Workflow SS Eosinophils/100 WBC (Bld) 3.6 % Invalid Interpretation Code 0.0 - 7.0 % AO Workflow SS Erythrocyte distribution width (RBC) [Ratio] 14.4 % Invalid Interpretation Code 11.5 - 14.5 % AO Workflow SS Glucose [Mass/Vol] 141 mg/dL Invalid Interpretation Code 70 - 105 mg/dL AO ADM SS Hematocrit (Bld) [Volume fraction] 41.3 % Invalid Interpretation Code 42.0 - 52.0 % AO Workflow SS Hgb 13.9 G/dL Invalid Interpretation Code 14.0 - 18.0 G/dL AO Workflow SS Lymphocyte, Absolute 4.2 103/mcL Invalid Interpretation Code 0.8 - 3.9 10^3/mcL AO Workflow SS Lymphocytes/100 WBC (Bld) 36.6 % Invalid Interpretation Code 10.0 - 50.0 % AO Workflow SS MCH (RBC) [Entitic mass] 26.7 pg Invalid Interpretation Code 27.0 - 31.2 pg AO Workflow SS MCHC 33.6 G/dL Invalid Interpretation Code 31.8 - 35.4 G/dL AO Workflow SS MCV (RBC) [Entitic vol] 79.6 fL Invalid Interpretation Code 80.0 - 94.0 fL AO Workflow SS Monocyte distribution width Auto (Bld) [Entitic vol] 16.55 Invalid Interpretation Code 0.00 - 20.00 AO Workflow SS Comment on above: Result Comment: For ED adult patients suspected of sepsis, MDW<=20.0 does not rule out sepsis or risk of sepsis Monocyte, Absolute 0.6 103/mcL Invalid Interpretation Code 0.2 - 1.0 10^3/mcL AO Workflow SS Monocytes/100 WBC (Bld) 5.5 % Invalid Interpretation Code 1.7 - 13.0 % AO Workflow SS Neutrophil, Absolute 6.2 103/mcL Invalid Interpretation Code 2.9 - 6.2 10^3/mcL AO Workflow SS Neutrophils/100 WBC (Bld) 53.6 % Invalid Interpretation Code 37.0 - 80.0 % AO Workflow SS Platelet 349 103/mcL Invalid Interpretation Code 130 - 400 10^3/mcL AO Workflow SS Platelet mean volume (Bld) [Entitic vol] 7.3 fL Invalid Interpretation Code 7.4 - 10.4 fL AO Workflow SS Potassium [Moles/Vol] 4.1 mmol/L Invalid Interpretation Code 3.5 - 5.1 mmol/L AO ADM SS RBC 5.19 106/mcL Invalid Interpretation Code 4.04 - 6.13 10^6/mcL AO Workflow SS Sodium [Moles/Vol] 137 mmol/L Invalid Interpretation Code 136 - 145 mmol/L AO ADM SS Troponin I.cardiac DL <= 0.01 ng/mL [Mass/Vol] ng/L Invalid Interpretation Code 0.0 - 76.2 ng/L AO ADM SS Urea nitrogen [Mass/Vol] 21 mg/dL Invalid Interpretation Code 7 - 18 mg/dL AO ADM SS Urea nitrogen/Creatinine [Mass ratio] 18 ratio Invalid Interpretation Code 7 - 27 ratio AO ADM SS WBC 11.5 103/mcL Invalid Interpretation Code 4.6 - 10.8 10^3/mcL AO Workflow SS LABORATORYOrdered By: SYSTEM SYSTEM on 08-24-2021 GFR 83 ml/min/1.73sqm Invalid Interpretation Code AO Chemistry S GFR Non- 68 ml/min/1.73sqm Invalid Interpretation Code AO Chemistry S LABORATORYOrdered By: Teresa Cain on 03-12-2021 ADMITTED TO INTENSIVE CARE UNIT FOR CONDITION OF INTEREST:FIND:PT:^BLANCHE ENT:ORD: No (03/12/21 12:11 PM) Invalid Interpretation Code AO Auto Urine SS EMPLOYED IN A HEALTHCARE SETTING:FIND:PT:^PATIE NT:ORD: No (03/12/21 12:11 PM) Invalid Interpretation Code AO Auto Urine SS FIRST TEST FOR CONDITION OF INTEREST:FIND:PT:^BLANCHE ENT:ORD: Unknown (03/12/21 12:11 PM) Invalid Interpretation Code AO Auto Urine SS HAS SYMPTOMS RELATED TO CONDITION OF INTEREST:FIND:PT:^BLANCHE ENT:ORD: Yes (03/12/21 12:11 PM) Invalid Interpretation Code AO Auto Urine SS Illness or injury onset date and time [id number] Invalid Interpretation Code AO Auto Urine SS Patient was hospitalized because of this condition No (03/12/21 12:11 PM) Invalid Interpretation Code AO Auto Urine SS status Not (03/12/21 12:11 PM) Invalid Interpretation Code AO Auto Urine SS RESIDES IN A CONGREGATE CARE SETTING:FIND:PT:^PATIE NT:ORD: No (03/12/21 12:11 PM) Invalid Interpretation Code AO Auto Urine SS SARS-CoV-2 (COVID-19) RNA JOSE+probe Ql (Resp) Positive *ABN* (03/12/21 12:11 PM) Invalid Interpretation Code Negative AO Auto Urine SS SARS-CoV-2 (COVID-19) RNA JOSE+probe Ql (Unsp spec) Positive results are indicative of the presence of SARS-CoV-2 RNA; clinical correlation with patient history and other diagnostic information is necessary to determine patient infection status. Positive results do not rule out bacterial infection or co-infection with other viruses. The agent detected may not be the definite cause of disease. Laboratories within the [facility] and its territories are required to report all positive results to the appropriate public health authorities.Detection of analyte target(s) does not imply that the corresponding virus(es) are infectious or are the causative agents for clinical symptoms.There is a risk of false positive values resulting from cross-contamination by target organisms, their nucleic acids or amplified product, or from non-specific signals in the assay.IForem SARS-CoV-2 Assay is a Real-Time reverse-transcriptase polymerase chain reaction (RT-PCR) based qualitative in vitro diagnostic test intended for the qualitative detection of nucleic acid from the SARS-CoV-2 in nasopharyngeal swab specimens collected from individuals suspected of COVID-19 by their healthcare provider. Testing is limited to laboratories certified under the Clinical Laboratory Improvement Amendments of 1988 (CLIA), 42 U.S.C. 263a, to perform moderate and high complexity tests. Invalid Interpretation Code AO Auto Urine SS Lower GI hemoglobin IA Ql (S tl) Stool Occult Blood (VIOLETTE) Positive [facility] Work Phone: Vital Signs Date Time Vital Sign Value Performing Clinician Facility 08-27-2024 22:24-0400 Body temperature 97.8 [degF] EILEEN MAST MEDICATION ASSISTANT Work Phone: [facility] 08-27-2024 22:24-0400 Diastolic blood pressure 87 mm[Hg] EILEEN MAST MEDICATION ASSISTANT Work Phone: [facility] 08-27-2024 22:24-0400 Heart rate 70 /min EILEEN MAST MEDICATION ASSISTANT Work Phone: [facility] 08-27-2024 22:24-0400 Respiratory rate 19 /min EILEEN MAST MEDICATION ASSISTANT Work Phone: [facility] 08-27-2024 22:24-0400 SaO2% (BldA) [Mass fraction] 96 % EILEEN MAST MEDICATION ASSISTANT Work Phone: [facility] 08-27-2024 22:24-0400 Systolic blood pressure 127 mm[Hg] EILEEN MAST MEDICATION ASSISTANT Work Phone: [facility] 08-27-2024 15:52-0400 Body height 170.18 cm EILEEN MAST MEDICATION ASSISTANT Work Phone: [facility] 08-27-2024 15:52-0400 Body mass index (BMI) [Ratio] 50.8 kg/m2 EILEEN MAST MEDICATION ASSISTANT Work Phone: [facility] 08-27-2024 15:52-0400 Body weight 147.41 kg EILEEN MAST MEDICATION ASSISTANT Work Phone: [facility] 08-07-2024 22:00-0400 Body temperature 97.5 [degF] EILEEN MAST MEDICATION ASSISTANT Work Phone: [facility] 08-07-2024 22:00-0400 Diastolic blood pressure 78 mm[Hg] EILEEN MAST MEDICATION ASSISTANT Work Phone: [facility] 08-07-2024 22:00-0400 Heart rate 89 /min EILEEN MAST MEDICATION ASSISTANT Work Phone: [facility] 08-07-2024 22:00-0400 Respiratory rate 16 /min EILEEN MAST MEDICATION ASSISTANT Work Phone: [facility] 08-07-2024 22:00-0400 SaO2% (BldA) [Mass fraction] 97 % EILEEN MAST MEDICATION ASSISTANT Work Phone: [facility] 08-07-2024 22:00-0400 Systolic blood pressure 136 mm[Hg] EILEEN MAST MEDICATION ASSISTANT Work Phone: [facility] 08-07-2024 19:30-0400 Body height 170.18 cm EILEEN MAST MEDICATION ASSISTANT Work Phone: [facility] 08-07-2024 19:30-0400 Body mass index (BMI) [Ratio] 36.8 kg/m2 EILEEN MAST MEDICATION ASSISTANT Work Phone: [facility] 08-07-2024 19:30-0400 Body weight 106.59 kg EILEEN MAST MEDICATION ASSISTANT Work Phone: [facility] 07-20-2024 08:51-0400 Body height 170.2 cm Asia Waldemar HADOOP JAVA DEVELOPER.TELEVISION CABINET FINISHER Work Phone: [facility] 07-20-2024 08:51-0400 Body mass index (BMI) [Ratio] 51.59 kg/m2 Asia Waldemar HADOOP JAVA DEVELOPER.TELEVISION CABINET FINISHER Work Phone: [facility] 07-20-2024 08:51-0400 Body temperature 98.01 [degF] Asia Waldemar HADOOP JAVA DEVELOPER.TELEVISION CABINET FINISHER Work Phone: [facility] 07-20-2024 08:51-0400 Body weight 149.41 kg Asia Waldemar HADOOP JAVA DEVELOPER.TELEVISION CABINET FINISHER Work Phone: [facility] 07-20-2024 08:51-0400 Diastolic blood pressure 82 mm[Hg] Asia Waldemar HADOOP JAVA DEVELOPER.TELEVISION CABINET FINISHER Work Phone: [facility] 07-20-2024 08:51-0400 Heart rate 91 /min Asia Waldemar HADOOP JAVA DEVELOPER.TELEVISION CABINET FINISHER Work Phone: [facility] 07-20-2024 08:51-0400 SaO2% (BldA) [Mass fraction] 96 % Asia Waldemar HADOOP JAVA DEVELOPER.TELEVISION CABINET FINISHER Work Phone: [facility] 07-20-2024 08:51-0400 Systolic blood pressure 130 mm[Hg] Asia Waldemar HADOOP JAVA DEVELOPER.TELEVISION CABINET FINISHER Work Phone: [facility] 07-14-2024 17:15-0400 Body temperature 98.2 [degF] EILEEN MAST MEDICATION ASSISTANT Work Phone: [facility] 07-14-2024 17:15-0400 Diastolic blood pressure 78 mm[Hg] EILEEN MAST MEDICATION ASSISTANT Work Phone: [facility] 07-14-2024 17:15-0400 Heart rate 78 /min EILEEN MAST MEDICATION ASSISTANT Work Phone: [facility] 07-14-2024 17:15-0400 Respiratory rate 16 /min EILEEN MAST MEDICATION ASSISTANT Work Phone: [facility] 07-14-2024 17:15-0400 SaO2% (BldA) [Mass fraction] 98 % EILEEN MAST MEDICATION ASSISTANT Work Phone: [facility] 07-14-2024 17:15-0400 Systolic blood pressure 105 mm[Hg] EILEEN MAST MEDICATION ASSISTANT Work Phone: [facility] 07-14-2024 13:39-0400 Body height 170.18 cm EILEEN MAST MEDICATION ASSISTANT Work Phone: [facility] 07-14-2024 13:39-0400 Body mass index (BMI) [Ratio] 51.4 kg/m2 EILEEN MAST MEDICATION ASSISTANT Work Phone: [facility] 07-14-2024 13:39-0400 Body weight 149 kg EILEEN MAST MEDICATION ASSISTANT Work Phone: [facility] 07-02-2024 14:51-0400 SaO2% (BldA) [Mass fraction] 98 % EILEEN MAST MEDICATION ASSISTANT Work Phone: [facility] 07-02-2024 07:55-0400 Heart rate 90 /min EILEEN MAST MEDICATION ASSISTANT Work Phone: [facility] 07-02-2024 07:32-0400 Body temperature 97.7 [degF] EILEEN MAST MEDICATION ASSISTANT Work Phone: [facility] 07-02-2024 07:32-0400 Diastolic blood pressure 60 mm[Hg] EILEEN MAST MEDICATION ASSISTANT Work Phone: [facility] 07-02-2024 07:32-0400 Respiratory rate 16 /min EILEEN MAST MEDICATION ASSISTANT Work Phone: [facility] 07-02-2024 07:32-0400 Systolic blood pressure 115 mm[Hg] EILEEN MAST MEDICATION ASSISTANT Work Phone: [facility] 07-02-2024 07:26-0400 Body height 170.18 cm EILEEN MAST MEDICATION ASSISTANT Work Phone: [facility] 07-02-2024 07:26-0400 Body mass index (BMI) [Ratio] 51.5 kg/m2 EILEEN MAST MEDICATION ASSISTANT Work Phone: [facility] 07-02-2024 07:26-0400 Body weight 149.09 kg EILEEN MAST MEDICATION ASSISTANT Work Phone: [facility] 07-02-2024 06:52-0400 Body temperature 97.9 [degF] EILEEN MAST MEDICATION ASSISTANT Work Phone: [facility] 07-02-2024 06:52-0400 Diastolic blood pressure 76 mm[Hg] EILEEN MAST MEDICATION ASSISTANT Work Phone: [facility] 07-02-2024 06:52-0400 Heart rate 100 /min EILEEN MAST MEDICATION ASSISTANT Work Phone: [facility] 07-02-2024 06:52-0400 Respiratory rate 18 /min EILEEN MAST MEDICATION ASSISTANT Work Phone: [facility] 07-02-2024 06:52-0400 SaO2% (BldA) [Mass fraction] 95 % EILEEN MAST MEDICATION ASSISTANT Work Phone: [facility] 07-02-2024 06:52-0400 Systolic blood pressure 126 mm[Hg] EILEEN MAST MEDICATION ASSISTANT Work Phone: [facility] 07-02-2024 03:15-0400 Body height 170.18 cm EILEEN MAST MEDICATION ASSISTANT Work Phone: [facility] 07-02-2024 03:15-0400 Body mass index (BMI) [Ratio] 52 kg/m2 EILEEN MAST MEDICATION ASSISTANT Work Phone: [facility] 07-02-2024 03:15-0400 Body weight 150.5 kg EILEEN MAST MEDICATION ASSISTANT Work Phone: [facility] 06-30-2024 15:04-0400 Body mass index (BMI) [Ratio] 51.4 kg/m2 Guerline Andersen MD Work Phone: [facility] 06-30-2024 15:04-0400 Body weight 148.87 kg Guerline Andersen MD Work Phone: [facility] 06-30-2024 15:04-0400 Diastolic blood pressure 91 mm[Hg] Guerline Andersen MD Work Phone: [facility] 06-30-2024 15:04-0400 Heart rate 80 /min Guerline Andersen MD Work Phone: [facility] 06-30-2024 15:04-0400 SaO2% (BldA) [Mass fraction] 96 % Guerline Andersen MD Work Phone: [facility] 06-30-2024 15:04-0400 Systolic blood pressure 144 mm[Hg] Guerline Andersen MD Work Phone: [facility] 06-25-2024 01:12-0400 Body temperature 97.8 [degF] Dr. Abran Simeon DO Work Phone: [facility] 06-25-2024 01:12-0400 Diastolic blood pressure 84 mm[Hg] Dr. Abran Simeon DO Work Phone: [facility] 06-25-2024 01:12-0400 Heart rate 95 /min Dr. Abran Simeon DO Work Phone: [facility] 06-25-2024 01:12-0400 Respiratory rate 16 /min Dr. Abran Simeon DO Work Phone: [facility] 06-25-2024 01:12-0400 SaO2% (BldA) [Mass fraction] 99 % Dr. Abran Simeon DO Work Phone: [facility] 06-25-2024 01:12-0400 Systolic blood pressure 160 mm[Hg] Dr. Abran Simeon DO Work Phone: [facility] 06-24-2024 22:35-0400 Body height 170.[address] Abran Simeon DO Work Phone: [facility] 06-24-2024 22:35-0400 Body mass index (BMI) [Ratio] 52.2 kg/m2 Dr. Abran Simeon DO Work Phone: 6(325)304-777264 [place] [address] 06-24-2024 22:35-0400 Body weight 151.[address] Abran iSmeon DO Work Phone: 2(484)505-372064 [place] [address] 05-30-2024 00:08-0500 Body mass index (BMI) [Ratio] 52.4 kg/m2 Dr. Abran Simeon DO Work Phone: 6(677)661-560764 [place] [address] 05-30-2024 00:08-0500 Body weight 151.[address] Abran Simeon DO Work Phone: 0(659)816-037064 [place] [address] 05-30-2024 00:08-0500 Diastolic blood pressure 78 mm[Hg] Dr. Abran Simeon DO Work Phone: 8(866)264-761464 [place] [address] 05-30-2024 00:08-0500 Heart rate 64 /min Dr. Abran Simeon DO Work Phone: 8(826)825-303764 [place] [address] 05-30-2024 00:08-0500 Respiratory rate 12 /min Dr. Abran Simeon DO Work Phone: 6(690)405-682364 [place] [address] 05-30-2024 00:08-0500 SaO2% (BldA) [Mass fraction] 99 % Dr. Abran Simeon DO Work Phone: [facility] 05-30-2024 00:08-0500 Systolic blood pressure 112 mm[Hg] Dr. Abran Simeon DO Work Phone: [facility] 05-29-2024 22:08-0500 Body height 170.[address] Abran Simeon DO Work Phone: [facility] 05-29-2024 22:08-0500 Body temperature 97.8 [degF] Dr. Abran Simeon DO Work Phone: 5(673)476-090264 [place] [address] 05-08-2024 21:58-0500 Heart rate 94 /min Dr. Abran Simeon DO Work Phone: 3(810)665-414964 [place] [address] 05-08-2024 21:58-0500 Respiratory rate 17 /min Dr. Abran Simeon DO Work Phone: 2(313)439-313953 [place] [address] 05-08-2024 21:58-0500 SaO2% (BldA) [Mass fraction] 97 % Dr. Abran Simeon DO Work Phone: 3(466)697-453964 [place] [address] 05-08-2024 19:58-0500 Body mass index (BMI) [Ratio] 50.2 kg/m2 Dr. Abran Simeon DO Work Phone: 9(297)059-738553 [place] [address] 05-08-2024 19:58-0500 Body temperature 97.8 [degF] Dr. Abran Simeon DO Work Phone: 9(822)231-185653 [place] [address] 05-08-2024 19:58-0500 Body weight 145.[address] Abran Simeon DO Work Phone: 6(588)594-641153 [place] [address] 05-08-2024 19:58-0500 Diastolic blood pressure 110 mm[Hg] Dr. Abran Simeon DO Work Phone: 7(198)729-796453 [place] [address] 05-08-2024 19:58-0500 Systolic blood pressure 178 mm[Hg] Dr. Abran Simeon DO Work Phone: 2(503)515-300053 [place] [address] 05-03-2024 18:18-0500 Body temperature 97.9 [degF] Dr. Abran Simeon DO Work Phone: 8(877)826-763453 [place] [address] 05-03-2024 18:18-0500 Diastolic blood pressure 78 mm[Hg] Dr. Abran Simeon DO Work Phone: 1(197)230-871653 [place] [address] 05-03-2024 18:18-0500 Heart rate 74 /min Dr. Abran Simeon DO Work Phone: 3(476)034-001453 [place] [address] 05-03-2024 18:18-0500 Respiratory rate 18 /min Dr. Abran Simeon DO Work Phone: [facility] 05-03-2024 18:18-0500 SaO2% (BldA) [Mass fraction] 97 % Dr. Abran Simeon DO Work Phone: [facility] 05-03-2024 18:18-0500 Systolic blood pressure 111 mm[Hg] Dr. Abran Simeon DO Work Phone: [facility] 05-03-2024 15:21-0500 Body weight 147.[address] Abran Simeon DO Work Phone: [facility] 05-03-2024 06:02-0500 Body mass index (BMI) [Ratio] 51 kg/m2 Dr. Abran Simeon DO Work Phone: [facility] 05-02-2024 21:22-0500 Diastolic Blood Pressure Non-Invasive 84 mm[Hg] VICTOR M WALTON MD [facility] 05-02-2024 21:22-0500 Heart rate 91 /min VICTOR M WALTON MD [facility] 05-02-2024 21:22-0500 Reason For Taking VItal Signs VICTOR M WALTON MD [facility] 05-02-2024 21:22-0500 Respiratory rate 20 /min VICTOR M WALTON MD [facility] 05-02-2024 21:22-0500 Systolic Blood Pressure Non-Invasive 163 mm[Hg] VICTOR M WALTON MD [facility] 05-02-2024 20:32-0500 Diastolic Blood Pressure Non-Invasive 87 mm[Hg] VICTOR M WALTON MD [facility] 05-02-2024 20:32-0500 Heart rate 90 /min VICTOR M WALTON MD [facility] 05-02-2024 20:32-0500 Reason For Taking VItal Signs VICTOR M WALTON MD [facility] 05-02-2024 20:32-0500 Respiratory rate 20 /min VICTOR M WALTON MD [facility] 05-02-2024 20:32-0500 Systolic Blood Pressure Non-Invasive 165 mm[Hg] VICTOR M WALTON MD [facility] 05-02-2024 18:59-0500 Body temperature 98.06 [degF] VICTOR M WALTON MD [facility] 05-02-2024 18:59-0500 Body weight 156.3 kg VICTOR M WALTON MD [facility] 05-02-2024 18:59-0500 Diastolic Blood Pressure Non-Invasive 80 mm[Hg] VICTOR M WALTON MD [facility] 05-02-2024 18:59-0500 Heart rate 100 /min VICTOR M WALTON MD [facility] 05-02-2024 18:59-0500 Respiratory rate 22 /min VICTOR M WALTON MD [facility] 05-02-2024 18:59-0500 Systolic Blood Pressure Non-Invasive 156 mm[Hg] VICTOR M WALTON MD [facility] 04-28-2024 22:16-0500 Body temperature 98.2 [degF] Dr. Abran Simeon DO Work Phone: [facility] 04-28-2024 22:16-0500 Diastolic blood pressure 74 mm[Hg] Dr. Abran Simeon DO Work Phone: [facility] 04-28-2024 22:16-0500 Heart rate 72 /min Dr. Abran Simeon DO Work Phone: [facility] 04-28-2024 22:16-0500 Respiratory rate 16 /min Dr. Abran Simeon DO Work Phone: [facility] 04-28-2024 22:16-0500 SaO2% (BldA) [Mass fraction] 99 % Dr. Abran Simeon DO Work Phone: [facility] 04-28-2024 22:16-0500 Systolic blood pressure 136 mm[Hg] Dr. Abran Simeon DO Work Phone: [facility] 04-28-2024 18:49-0500 Body mass index (BMI) [Ratio] 51.4 kg/m2 Dr. Abran Simeon DO Work Phone: [facility] 04-28-2024 18:49-0500 Body weight [address] Abran Simeon DO Work Phone: [facility] 04-21-2024 10:05-0500 Diastolic blood pressure 89 mm[Hg] Guerline Andersen MD Work Phone: [facility] 04-21-2024 10:05-0500 Heart rate 98 /min Guerline Andersen MD Work Phone: [facility] 04-21-2024 10:05-0500 Respiratory rate 14 /min Guerline Andersen MD Work Phone: [facility] 04-21-2024 10:05-0500 SaO2% (BldA) [Mass fraction] 93 % Guerline Andersen MD Work Phone: [facility] 04-21-2024 10:05-0500 Systolic blood pressure 145 mm[Hg] Guerline Andersen MD Work Phone: [facility] 04-21-2024 08:32-0500 Body mass index (BMI) [Ratio] 49.41 kg/m2 Guerline Andersen MD Work Phone: [facility] 04-21-2024 08:32-0500 Body temperature 97.9 [degF] Guerline Andersen MD Work Phone: [facility] 04-21-2024 08:32-0500 Body weight 143.1 kg Guerline Andersen MD Work Phone: [facility] 03-11-2024 23:41-0500 Diastolic Blood Pressure Non-Invasive 74 mm[Hg] CARMEN LUNDBERG MD [facility] 03-11-2024 23:41-0500 Heart rate 103 /min CARMEN LUNDBERG MD [facility] 03-11-2024 23:41-0500 Respiratory rate 18 /min CARMEN LUNDBERG MD [facility] 03-11-2024 23:41-0500 Systolic Blood Pressure Non-Invasive 151 mm[Hg] CARMEN LUNDBERG MD [facility] 03-11-2024 23:00-0500 Body weight 143 kg CARMEN LUNDBERG MD [facility] 03-11-2024 23:00-0500 Diastolic Blood Pressure Non-Invasive 82 mm[Hg] CARMEN LUNDBERG MD [facility] 03-11-2024 23:00-0500 Heart rate 108 /min CARMEN LUNDBERG MD [facility] 03-11-2024 23:00-0500 Respiratory rate 20 /min CARMEN LUNDBERG MD [facility] 03-11-2024 23:00-0500 Systolic Blood Pressure Non-Invasive 149 mm[Hg] CARMEN LUNDBERG MD [facility] 03-03-2024 09:45-0500 Body mass index (BMI) [Ratio] 49.4 kg/m2 Asia Waldemar [employer]ELOPER[employer] Work Phone: [facility] 03-03-2024 09:45-0500 Body weight 143.06 kg Asia Waldemar [employer] DEVELOPER[employer] FIN[employer]ER Work Phone: [facility] 03-03-2024 09:45-0500 Diastolic blood pressure 87 mm[Hg] Asia Waldemar [employer] DEVELOPER[employer] FIN[employer]ER Work Phone: [facility] 03-03-2024 09:45-0500 Heart rate 92 /min Asia Waldemar [employer] DEVELOPER[employer] FINISHER Work Phone: [facility] 03-03-2024 09:45-0500 SaO2% (BldA) [Mass fraction] 97 % Asia Waldemar [employer] DEVELOPER[employer] FINISHER Work Phone: [facility] 03-03-2024 09:45-0500 Systolic blood pressure 130 mm[Hg] Asia Waldemar [employer] DEVELOPER[employer] FINISHER Work Phone: [facility] 03-02-2024 23:30-0500 Body temperature 98 [degF] Dr. Abran Simeon DO Work Phone: [facility] 03-02-2024 23:30-0500 Diastolic blood pressure 78 mm[Hg] Dr. Abran Simeon DO Work Phone: [facility] 03-02-2024 23:30-0500 Heart rate 80 /min Dr. Abran Simeon DO Work Phone: [facility] 03-02-2024 23:30-0500 Respiratory rate 18 /min Dr. Abran Simeon DO Work Phone: [facility] 03-02-2024 23:30-0500 SaO2% (BldA) [Mass fraction] 96 % Dr. Abran Simeon DO Work Phone: [facility] 03-02-2024 23:30-0500 Systolic blood pressure 140 mm[Hg] Dr. Abran Simeon DO Work Phone: [facility] 03-02-2024 22:19-0500 Body mass index (BMI) [Ratio] 49.4 kg/m2 Dr. Abran Simeon DO Work Phone: [facility] 03-02-2024 22:19-0500 Body weight [address] Abran Simeon DO Work Phone: [facility] 02-06-2024 21:16-0500 Diastolic Blood Pressure Non-Invasive 89 mm[Hg] ELI REED DO [facility] 02-06-2024 21:16-0500 Heart rate 86 /min ELI REED DO [facility] 02-06-2024 21:16-0500 Respiratory rate 16 /min ELI REED DO [facility] 02-06-2024 21:16-0500 Systolic Blood Pressure Non-Invasive 146 mm[Hg] ELI MAYORGAKA DO [facility] 02-06-2024 19:38-0500 Blood Pressure Location ELI MAYORGAKA DO [facility] 02-06-2024 19:38-0500 Blood Pressure Method ELI REED DO [facility] 02-06-2024 19:38-0500 Body height 170.2 cm ELI MAYORGAKA DO [facility] 02-06-2024 19:38-0500 Body temperature 98.06 [degF] ELI MAYORGAKA DO [facility] 02-06-2024 19:38-0500 Body weight 129.5 kg ELI REED DO [facility] 02-06-2024 19:38-0500 Diastolic Blood Pressure Non-Invasive 105 mm[Hg] ELI REED DO [facility] 02-06-2024 19:38-0500 Heart rate 100 /min ELI REED DO [facility] 02-06-2024 19:38-0500 Respiratory rate 20 /min ELI REED DO [facility] 02-06-2024 19:38-0500 Systolic Blood Pressure Non-Invasive 141 mm[Hg] ELI REED DO [facility] 12-17-2023 13:19-0400 Body mass index (BMI) [Ratio] 48.4 kg/m2 Asia Waldemar [employer] DEVELOPER[employer] FIN[employer]ER Work Phone: [facility] 12-17-2023 13:19-0400 Body weight 140.16 kg Asia Waldemar [employer] DEVELOPER[employer] FINISHER Work Phone: [facility] 12-17-2023 13:19-0400 Diastolic blood pressure 78 mm[Hg] Asia Waldemar [employer] DEVELOPER[employer] FINISHER Work Phone: [facility] 12-17-2023 13:19-0400 Heart rate 98 /min Asia Waldemar [employer] DEVELOPER[employer] FINISHER Work Phone: [facility] 12-17-2023 13:19-0400 SaO2% (BldA) [Mass fraction] 97 % Asia Waldemar [employer] DEVELOPER[employer] FINISHER Work Phone: [facility] 12-17-2023 13:19-0400 Systolic blood pressure 117 mm[Hg] Asia Waldemar [employer] DEVELOPER[employer] FINISHER Work Phone: [facility] 12-08-2023 11:06-0400 Diastolic blood pressure 66 mm[Hg] Elinor Cunha MD Work Phone: [facility] 12-08-2023 11:06-0400 Heart rate 85 /min Elinor Cunha MD Work Phone: [facility] 12-08-2023 11:06-0400 Respiratory rate 16 /min Elinor Cunha MD Work Phone: [facility] 12-08-2023 11:06-0400 SaO2% (BldA) [Mass fraction] 95 % Elinor Cunha MD Work Phone: [facility] 12-08-2023 11:06-0400 Systolic blood pressure 118 mm[Hg] Elinor Cunha MD Work Phone: [facility] 12-08-2023 09:21-0400 Body mass index (BMI) [Ratio] 47.3 kg/m2 Elinor Cunha MD Work Phone: [facility] 12-08-2023 09:21-0400 Body temperature 97.59 [degF] Elinor Cunha MD Work Phone: [facility] 12-08-2023 09:21-0400 Body weight 137 kg Elinor Cunha MD Work Phone: [facility] 11-30-2023 23:34-0400 Blood Pressure Location VICTOR M WALTON MD [facility] 11-30-2023 23:34-0400 Blood Pressure Method VICTOR M WALTON MD [facility] 11-30-2023 23:34-0400 Body height 170 cm VICTOR M WALTON MD [facility] 11-30-2023 23:34-0400 Body temperature 96.08 [degF] VICTOR M WALTON MD [facility] 11-30-2023 23:34-0400 Body weight 129 kg VICTOR M WALTON MD [facility] 11-30-2023 23:34-0400 Diastolic Blood Pressure Non-Invasive 90 mm[Hg] VICTOR M WALTON MD [facility] 11-30-2023 23:34-0400 Heart rate 104 /min VICTOR M WALTON MD [facility] 11-30-2023 23:34-0400 Respiratory rate 22 /min VICTOR M WALTON MD [facility] 11-30-2023 23:34-0400 Systolic Blood Pressure Non-Invasive 142 mm[Hg] VICTOR M WALTON MD [facility] 10-29-2023 19:09-[address] JG ASHRAF DO [facility] 10-29-2023 19:09-[address] JG ASHRAF DO [facility] 10-29-2023 19:09-0400 Body height 170.[address] JG ASHRAF DO [facility] 10-29-2023 19:09-0400 Body temperature 97.7 [degF] DR JG ASHRAF DO [facility] 10-29-2023 19:09-0400 Body weight 138.[address] JG ASHRAF DO [facility] 10-29-2023 19:09-0400 Diastolic Blood Pressure Non-Invasive 69 mm[Hg] DR JG ASHRAF DO [facility] 10-29-2023 19:09-0400 Heart rate 98 /min DR JG ASHRAF DO [facility] 10-29-2023 19:09-0400 Respiratory rate 18 /min DR JG ASHRAF DO [facility] 10-29-2023 19:09-0400 Systolic Blood Pressure Non-Invasive 116 mm[Hg] DR JG ASHRAF DO [facility] 10-03-2023 20:52-0400 Body height 170.2 cm ADAM WALLACET DO [facility] 10-03-2023 20:52-0400 Body temperature 98.78 [degF] ADAM WALLACET DO [facility] 10-03-2023 20:52-0400 Body weight 140.9 kg ADAM WALLACET DO [facility] 10-03-2023 20:52-0400 Diastolic Blood Pressure Non-Invasive 91 mm[Hg] ADAM WALLACET DO [facility] 10-03-2023 20:52-0400 Heart rate 94 /min ADAM CARROLL DO [facility] 10-03-2023 20:52-0400 Respiratory rate 20 /min ADAM WALLACET DO [facility] 10-03-2023 20:52-0400 Systolic Blood Pressure Non-Invasive 140 mm[Hg] ADAM WALLACET DO [facility] 08-25-2023 16:41-0400 Body temperature 98.06 [degF] DR VEE ERVIN MD [facility] 08-25-2023 16:41-0400 Diastolic Blood Pressure Non-Invasive 85 mm[Hg] DR VEE ERVIN MD [facility] 08-25-2023 16:41-0400 Heart rate 108 /min DR VEE ERVIN MD [facility] 08-25-2023 16:41-0400 Respiratory rate 20 /min DR VEE ERVIN MD [facility] 08-25-2023 16:41-0400 Systolic Blood Pressure Non-Invasive 145 mm[Hg] DR VEE ERVIN MD [facility] 08-21-2023 14:09-0400 Body temperature 97.88 [degF] JUNE [place] [employer] 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 [facility] 08-21-2023 14:09-0400 Diastolic Blood Pressure Non-Invasive 82 mm[Hg] JUNE [place] [employer] 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 [facility] 08-21-2023 14:09-0400 Heart rate 88 /min JUNE [place] [employer] 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 [facility] 08-21-2023 14:09-0400 Heart rate 86 /min JUNE [place] [employer] 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 [facility] 08-21-2023 14:09-0400 Respiratory rate 16 /min JUNE [place] [employer] 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 [facility] 08-21-2023 14:09-0400 Systolic Blood Pressure Non-Invasive 128 mm[Hg] JUNE [place] [employer] 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 [facility] 08-21-2023 12:29-0400 Diastolic Blood Pressure Non-Invasive 84 mm[Hg] JUNE [place] [employer] 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 [facility] 08-21-2023 12:29-0400 Systolic Blood Pressure Non-Invasive 130 mm[Hg] JUNE [place] [employer] 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 [facility] 08-21-2023 10:49-0400 Body temperature 97.88 [degF] JUNE [place] [employer] 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 [facility] 08-21-2023 10:49-0400 Heart rate 90 /min JUNE [place] [employer] 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 [facility] 08-21-2023 10:49-0400 Heart rate 88 /min JUNE [place] [employer] 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 [facility] 08-21-2023 10:49-0400 Respiratory rate 18 /min JUNE [place] [employer] 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 [facility] 08-21-2023 09:04-0400 Body temperature 97.88 [degF] JUNE [place] [employer] 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 [facility] 08-21-2023 09:04-0400 Diastolic Blood Pressure Non-Invasive 97 mm[Hg] JUNE [place] [employer] 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 [facility] 08-21-2023 09:04-0400 Heart rate 90 /min JUNE [place] [employer] 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 [facility] 08-21-2023 09:04-0400 Heart rate 89 /min JUNE [place] [employer] 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 [facility] 08-21-2023 09:04-0400 Reason For Taking VItal Signs JUNE [place] [employer] 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 [facility] 08-21-2023 09:04-0400 Respiratory rate 16 /min JUNE [place] [employer] 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 [facility] 08-21-2023 09:04-0400 Systolic Blood Pressure Non-Invasive 173 mm[Hg] JUNE [place] [employer] 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 [facility] 08-21-2023 06:33-0400 Heart rate 83 /min JUNE [place] [employer] 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 [facility] 08-21-2023 06:33-0400 Reason For Taking VItal Signs JUNE [place] [employer] 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 [facility] 08-21-2023 03:40-0400 Reason For Taking VItal Signs JUNE [place] [employer] 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 [facility] 08-20-2023 23:05-0400 Body weight 138.1 kg JUNE [place] [employer] 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 [facility] 08-20-2023 22:58-0400 Body height 170.2 cm JUNE [place] [employer] 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 [facility] 08-20-2023 22:58-0400 Body weight 139.4 kg JUNE [place] [employer] 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 [facility] 08-20-2023 22:58-0400 Body weight 48.12 kg/m2 JUNE [place] [employer] 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 [facility] 08-20-2023 22:28-0400 Heart rate 99 /min JUNE [place] [employer] 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 [facility] 08-20-2023 22:07-0400 Heart rate 75 /min JUNE [place] [employer] 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 [facility] 08-20-2023 19:57-0400 Body weight 139.4 kg JUNE [place] [employer] 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 [facility] 07-15-2023 15:13-0400 Body mass index (BMI) [Ratio] 47.3 kg/m2 Guerline Andersen MD Work Phone: [facility] 07-15-2023 15:13-0400 Body temperature 98.8 [degF] Guerline Andersen MD Work Phone: [facility] 07-15-2023 15:13-0400 Body weight 136.99 kg Guerline Andersen MD Work Phone: [facility] 07-15-2023 15:13-0400 Diastolic blood pressure 86 mm[Hg] Guerline Andersen MD Work Phone: [facility] 07-15-2023 15:13-0400 Heart rate 88 /min Guerline Andersen MD Work Phone: [facility] 07-15-2023 15:13-0400 SaO2% (BldA) [Mass fraction] 97 % Guerline Andersen MD Work Phone: [facility] 07-15-2023 15:13-0400 Systolic blood pressure 132 mm[Hg] Guerline Andersen MD Work Phone: [facility] 06-22-2023 11:48-0400 Body temperature 96.9 [degF] [facility] 06-22-2023 11:48-0400 Diastolic blood pressure 69 mm[Hg] [facility] 06-22-2023 11:48-0400 Heart rate 79 /min [facility] 06-22-2023 11:48-0400 Respiratory rate 18 /min [facility] 06-22-2023 11:48-0400 SaO2% (BldA) [Mass fraction] 94 % [facility] 06-22-2023 11:48-0400 Systolic blood pressure 151 mm[Hg] [facility] 06-22-2023 10:41-0400 Body height 170.18 cm [facility] 06-22-2023 10:41-0400 Body mass index (BMI) [Ratio] 47.1 kg/m2 [facility] 06-22-2023 10:41-0400 Body weight 136.57 kg [facility] 06-15-2023 21:30-0400 Blood Pressure Cuff Size ADAM CARROLL DO [facility] 06-15-2023 21:30-0400 Blood Pressure Location ADAM CARROLL DO [facility] 06-15-2023 21:30-0400 Blood Pressure Method AADM FROMBrille24T DO [facility] 06-15-2023 21:30-0400 Body temperature 97.16 [degF] ADAM FROMBrille24T DO [facility] 06-15-2023 21:30-0400 Diastolic Blood Pressure Non-Invasive 70 mm[Hg] ADAM FROMBrille24T DO [facility] 06-15-2023 21:30-0400 Heart rate 97 /min ADAM FROMBrille24T DO [facility] 06-15-2023 21:30-0400 Respiratory rate 18 /min ADAM TRANBrille24T DO [facility] 06-15-2023 21:30-0400 Systolic Blood Pressure Non-Invasive 117 mm[Hg] ADAM FROMSANDRAT DO [facility] 06-07-2023 23:15-0400 Body height 170.2 cm MICHELLE [employer] DO [facility] 06-07-2023 23:15-0400 Body temperature 97.52 [degF] MICHELLE [employer] DO [facility] 06-07-2023 23:15-0400 Body weight 131.6 kg [employer] DO [facility] 06-07-2023 23:15-0400 Diastolic Blood Pressure Non-Invasive 66 mm[Hg] MICHELLE REICHFIELD DO [facility] 06-07-2023 23:15-0400 Heart rate 95 /min MICHELLE REICHFIELD DO [facility] 06-07-2023 23:15-0400 Respiratory rate 18 /min MICHELLE RIZO DO [facility] 06-07-2023 23:15-0400 Systolic Blood Pressure Non-Invasive 131 mm[Hg] MICHELLE RIZO DO [facility] 06-05-2023 20:31-[address] MU SERVIN MD [facility] 06-05-2023 20:31-[address] MU SERVIN MD [facility] 06-05-2023 20:31-0400 Body height 170.[address] MU SERVIN MD [facility] 06-05-2023 20:31-0400 Body temperature 98.06 [degF] DR MU SERVIN MD [facility] 06-05-2023 20:31-0400 Body weight 129.[address] MU SERVIN MD [facility] 06-05-2023 20:31-0400 Diastolic Blood Pressure Non-Invasive 98 mm[Hg] DR MU SERVIN MD [facility] 06-05-2023 20:31-0400 Heart rate 88 /min DR MU SERVIN MD [facility] 06-05-2023 20:31-0400 Respiratory rate 16 /min DR MU SERVIN MD [facility] 06-05-2023 20:31-0400 Systolic Blood Pressure Non-Invasive 167 mm[Hg] DR MU SERVIN MD [facility] 04-17-2023 20:16-0500 Body temperature 98.24 [degF] NIKKI ROSA MD [facility] 04-17-2023 20:16-0500 Diastolic Blood Pressure Non-Invasive 81 mm[Hg] NIKKI ROSA MD [facility] 04-17-2023 20:16-0500 Heart rate 74 /min NIKKI ROSA MD [facility] 04-17-2023 20:16-0500 Respiratory rate 18 /min NIKKI ROSA MD [facility] 04-17-2023 20:16-0500 Systolic Blood Pressure Non-Invasive 133 mm[Hg] NIKKI ROSA MD [facility] 03-12-2023 21:52-0500 Blood Pressure Cuff Size CARMEN LUNDBERG MD [facility] 03-12-2023 21:52-0500 Blood Pressure Location CARMEN LUNDBERG MD [facility] 03-12-2023 21:52-0500 Blood Pressure Method CARMEN LUNDBERG MD [facility] 03-12-2023 21:52-0500 Diastolic Blood Pressure Non-Invasive 64 mm[Hg] CARMEN LUNDBERG MD [facility] 03-12-2023 21:52-0500 Heart rate 76 /min CARMEN LUNDBERG MD [facility] 03-12-2023 21:52-0500 Respiratory rate 16 /min CARMEN LUNDBERG MD [facility] 03-12-2023 21:52-0500 Systolic Blood Pressure Non-Invasive 113 mm[Hg] CARMEN LUNDBERG MD [facility] 03-12-2023 20:39-0500 Blood Pressure Cuff Size CARMEN LUNDBERG MD [facility] 03-12-2023 20:39-0500 Blood Pressure Location CARMEN LUNDBERG MD [facility] 03-12-2023 20:39-0500 Blood Pressure Method CARMEN LUNDBERG MD [facility] 03-12-2023 20:39-0500 Diastolic Blood Pressure Non-Invasive 75 mm[Hg] CARMEN LUNDBERG MD [facility] 03-12-2023 20:39-0500 Respiratory rate 16 /min CARMEN LUNDBERG MD [facility] 03-12-2023 20:39-0500 Systolic Blood Pressure Non-Invasive 133 mm[Hg] CARMEN LUNDBERG MD [facility] 03-12-2023 19:44-0500 Blood Pressure Cuff Size CARMEN LUNDBERG MD [facility] 03-12-2023 19:44-0500 Blood Pressure Location CARMEN LUNDBERG MD [facility] 03-12-2023 19:44-0500 Blood Pressure Method CARMEN LUNDBERG MD [facility] 03-12-2023 19:44-0500 Body temperature 97.7 [degF] CARMEN LUNDBERG MD [facility] 03-12-2023 19:44-0500 Diastolic Blood Pressure Non-Invasive 87 mm[Hg] CARMEN LUNDBERG MD [facility] 03-12-2023 19:44-0500 Heart rate 87 /min CARMEN LUNDBERG MD [facility] 03-12-2023 19:44-0500 Respiratory rate 18 /min CARMEN LUNDBERG MD [facility] 03-12-2023 19:44-0500 Systolic Blood Pressure Non-Invasive 151 mm[Hg] CARMEN LUNDBERG MD [facility] 02-16-2023 19:06-0500 Diastolic Blood Pressure Non-Invasive 76 mm[Hg] MICHELLE REICHFIELD DO [facility] 02-16-2023 19:06-0500 Heart rate 71 /min MICHELLE REICHFIELD DO [facility] 02-16-2023 19:06-0500 Respiratory rate 17 /min MICHELLE REICHFIELD DO [facility] 02-16-2023 19:06-0500 Systolic Blood Pressure Non-Invasive 122 mm[Hg] MICHELLE REICHFIELD DO [facility] 02-16-2023 17:57-0500 Body temperature 97.7 [degF] MICHELLE REICHFIELD DO [facility] 02-16-2023 17:57-0500 Diastolic Blood Pressure Non-Invasive 80 mm[Hg] MCIHELLE REICHFIELD DO [facility] 02-16-2023 17:57-0500 Heart rate 85 /min MICHELLE REICHFIELD DO [facility] 02-16-2023 17:57-0500 Respiratory rate 16 /min MICHELLE REICHFIELD DO [facility] 02-16-2023 17:57-0500 Systolic Blood Pressure Non-Invasive 122 mm[Hg] MICHELLE REICHFIELD DO [facility] 12-18-2022 00:48-0400 Body height 170.2 cm ADAM CARROLL DO [facility] 12-18-2022 00:48-0400 Body temperature 98.24 [degF] ADAM CARROLL DO [facility] 12-18-2022 00:48-0400 Body weight 136 kg ADAM CARROLL DO [facility] 12-18-2022 00:48-0400 Diastolic Blood Pressure Non-Invasive 79 1 ADAM CARROLL DO [facility] 12-18-2022 00:48-0400 Heart rate 90 /min ADAM CARROLL DO [facility] 12-18-2022 00:48-0400 Respiratory rate 18 /min ADAM CARROLL DO [facility] 12-18-2022 00:48-0400 Systolic Blood Pressure Non-Invasive 142 1 ADAM CARROLL DO [facility] 11-26-2022 12:45-0400 Diastolic blood pressure 68 mm[Hg] Guerline Andersen MD Work Phone: [facility] 11-26-2022 12:45-0400 Heart rate 82 /min Guerline Andersen MD Work Phone: [facility] 11-26-2022 12:45-0400 Respiratory rate 18 /min Guerline Andersen MD Work Phone: [facility] 11-26-2022 12:45-0400 SaO2% (BldA) [Mass fraction] 94 % Guerline Andersen MD Work Phone: [facility] 11-26-2022 12:45-0400 Systolic blood pressure 117 mm[Hg] Guerline Andersen MD Work Phone: [facility] 11-26-2022 11:16-0400 Body temperature 97.9 [degF] Guerline Andersen MD Work Phone: [facility] 11-22-2022 11:15-0400 Body height 170.2 cm Guerline Andersen MD Work Phone: [facility] 11-22-2022 11:15-0400 Body temperature 97.9 [degF] Guerline Andersen MD Work Phone: [facility] 11-22-2022 11:15-0400 Body weight 133.54 kg Guerline Andersen MD Work Phone: [facility] 11-22-2022 11:15-0400 Diastolic blood pressure 90 mm[Hg] Guerline Andersen MD Work Phone: [facility] 11-22-2022 11:15-0400 Heart rate 56 /min Guerline Andersen MD Work Phone: [facility] 11-22-2022 11:15-0400 Respiratory rate 16 /min Guerline Andersen MD Work Phone: [facility] 11-22-2022 11:15-0400 SaO2% (BldA) [Mass fraction] 100 % Guerline Andersen MD Work Phone: [facility] 11-22-2022 11:15-0400 Systolic blood pressure 122 mm[Hg] Guerline Andersen MD Work Phone: [facility] 11-20-2022 01:18-0400 Body height 170.18 cm [facility] 11-20-2022 01:18-0400 Body mass index (BMI) [Ratio] 45.3 kg/m2 [facility] 11-20-2022 01:18-0400 Body temperature 97.2 [degF] [facility] 11-20-2022 01:18-0400 Body weight 131.4 kg [facility] 11-20-2022 01:18-0400 Diastolic blood pressure 86 mm[Hg] [facility] 11-20-2022 01:18-0400 Heart rate 91 /min [facility] 11-20-2022 01:18-0400 Respiratory rate 15 /min [facility] 11-20-2022 01:18-0400 SaO2% (BldA) [Mass fraction] 98 % [facility] 11-20-2022 01:18-0400 Systolic blood pressure 160 mm[Hg] [facility] 09-15-2022 05:15-0400 Diastolic blood pressure 65 mm[Hg] [facility] 09-15-2022 05:15-0400 Heart rate 80 /min [facility] 09-15-2022 05:15-0400 Respiratory rate 15 /min [facility] 09-15-2022 05:15-0400 SaO2% (BldA) [Mass fraction] 100 % [facility] 09-15-2022 05:15-0400 Systolic blood pressure 135 mm[Hg] [facility] 09-15-2022 03:55-0400 Body height 170.18 cm [facility] 09-15-2022 03:55-0400 Body mass index (BMI) [Ratio] 46.5 kg/m2 [facility] 09-15-2022 03:55-0400 Body temperature 98.4 [degF] [facility] 09-15-2022 03:55-0400 Body weight 134.6 kg [facility] 09-12-2022 03:43-0400 Body temperature 98.06 [degF] DR JG ASHRAF DO [facility] 09-12-2022 03:43-0400 Diastolic Blood Pressure Non-Invasive [address] JG ASHRAF DO [facility] 09-12-2022 03:43-0400 Heart rate 78 /min DR JG ASHRAF DO [facility] 09-12-2022 03:43-0400 Respiratory rate 16 /min DR JG ASHRAF DO [facility] 09-12-2022 03:43-0400 Systolic Blood Pressure Non-Invasive [address] JG ASHRAF DO [facility] 09-12-2022 00:08-04[address] Blood Pressure Cuff Size DR JG ASHRAF DO [facility] 09-12-2022 00:08-[address] JG ASHRAF DO [facility] 09-12-2022 00:08-[address] JG ASHRAF DO [facility] 09-12-2022 00:08-0400 Body height 170.[address] JG ASHRAF DO [facility] 09-12-2022 00:08-0400 Body temperature 97.7 [degF] DR JG ASHRAF DO [facility] 09-12-2022 00:08-0400 Body weight [address] JG ASHRAF DO [facility] 09-12-2022 00:08-0400 Diastolic Blood Pressure Non-Invasive [address] JG ASHRAF DO [facility] 09-12-2022 00:08-0400 Heart rate 88 /min DR JG ASHRAF DO [facility] 09-12-2022 00:08-0400 Reason For Taking VItal Signs DR JG ASHRAF DO [facility] 09-12-2022 00:08-0400 Respiratory rate 18 /min DR JG ASHRAF DO [facility] 09-12-2022 00:08-0400 Systolic Blood Pressure Non-Invasive [address] JG ASHRAF DO [facility] 08-01-2022 23:25-0400 Diastolic Blood Pressure Non-Invasive 72 1 NIKKI ROSA MD [facility] 08-01-2022 23:25-0400 Heart rate 84 /min NIKKI ROSA MD [facility] 08-01-2022 23:25-0400 Respiratory rate 18 /min NIKKI ROSA MD [facility] 08-01-2022 23:25-0400 Systolic Blood Pressure Non-Invasive 136 1 NIKKI ROSA MD [facility] 08-01-2022 21:20-0400 Blood Pressure Cuff Size NIKKI ROSA MD [facility] 08-01-2022 21:20-0400 Blood Pressure Location NIKKI ROSA MD [facility] 08-01-2022 21:20-0400 Blood Pressure Method NIKKI ROSA MD [facility] 08-01-2022 21:20-0400 Body height 170.2 cm NIKKI ROSA MD [facility] 08-01-2022 21:20-0400 Body temperature 98.42 [degF] NIKKI ROSA MD [facility] 08-01-2022 21:20-0400 Body weight 137 kg NIKKI ROSA MD [facility] 08-01-2022 21:20-0400 Diastolic Blood Pressure Non-Invasive 90 1 NIKKI ROSA MD [facility] 08-01-2022 21:20-0400 Heart rate 95 /min NIKKI ROSA MD [facility] 08-01-2022 21:20-0400 Reason For Taking VItal Signs NIKKI ROSA MD [facility] 08-01-2022 21:20-0400 Respiratory rate 18 /min NIKKI ROSA MD [facility] 08-01-2022 21:20-0400 Systolic Blood Pressure Non-Invasive 148 1 NIKKI ROSA MD [facility] 07-10-2022 22:23-0400 Body height 170.18 cm [facility] 07-10-2022 22:23-0400 Body temperature 98.6 [degF] [facility] 07-10-2022 22:23-0400 Diastolic blood pressure 71 mm[Hg] [facility] 07-10-2022 22:23-0400 Heart rate 114 /min [facility] 07-10-2022 22:23-0400 Respiratory rate 18 /min [facility] 07-10-2022 22:23-0400 SaO2% (BldA) [Mass fraction] 98 % [facility] 07-10-2022 22:23-0400 Systolic blood pressure 154 mm[Hg] [facility] 06-14-2022 22:48-0400 Body height 170.18 cm [facility] 06-14-2022 22:48-0400 Body mass index (BMI) [Ratio] 46 kg/m2 [facility] 06-14-2022 22:48-0400 Body temperature 97.7 [degF] [facility] 06-14-2022 22:48-0400 Body weight 133.35 kg [facility] 06-14-2022 22:48-0400 Diastolic blood pressure 8 mm[Hg] [facility] 06-14-2022 22:48-0400 Heart rate 102 /min [facility] 06-14-2022 22:48-0400 Respiratory rate 18 /min [facility] 06-14-2022 22:48-0400 SaO2% (BldA) [Mass fraction] 96 % [facility] 06-14-2022 22:48-0400 Systolic blood pressure 151 mm[Hg] [facility] 05-05-2022 20:39-0500 Diastolic Blood Pressure Non-Invasive [address] JG ASHRAF DO [facility] 05-05-2022 20:39-0500 Heart rate 92 /min DR JG ASHRAF DO [facility] 05-05-2022 20:39-0500 Respiratory rate 18 /min DR JG ASHRAF DO [facility] 05-05-2022 20:39-0500 Systolic Blood Pressure Non-Invasive [address] JG ASHRAF DO [facility] 05-05-2022 20:07-[address] JG ASHRAF DO [facility] 05-05-2022 20:07-0500 Body temperature 97.7 [degF] DR JG ASHRAF DO [facility] 05-05-2022 20:07-0500 Diastolic Blood Pressure Non-Invasive [address] JG ASHRAF DO [facility] 05-05-2022 20:07-0500 Heart rate 102 /min DR JG ASHRAF DO [facility] 05-05-2022 20:07-0500 Respiratory rate 20 /min DR JG ASHRAF DO [facility] 05-05-2022 20:07-0500 Systolic Blood Pressure Non-Invasive [address] JG ASHRAF DO [facility] 04-25-2022 19:15-0500 Diastolic Blood Pressure Non-Invasive 81 1 KEITH FRANKLIN MD [facility] 04-25-2022 19:15-0500 Heart rate 73 /min KEITH FRANKLIN MD [facility] 04-25-2022 19:15-0500 Reason For Taking VItal Signs KEITH FRANKLIN MD [facility] 04-25-2022 19:15-0500 Respiratory rate 20 /min KEITH FRANKLIN MD [facility] 04-25-2022 19:15-0500 Systolic Blood Pressure Non-Invasive 123 1 KEITH FRANKLIN MD [facility] 04-25-2022 16:40-0500 Body temperature 98.24 [degF] KEITH FRANKLIN MD [facility] 04-25-2022 16:40-0500 Diastolic Blood Pressure Non-Invasive 85 1 KEITH FRANKLIN MD [facility] 04-25-2022 16:40-0500 Heart rate 77 /min KEITH FRANKLIN MD [facility] 04-25-2022 16:40-0500 Respiratory rate 20 /min KEITH FRANKLIN MD [facility] 04-25-2022 16:40-0500 Systolic Blood Pressure Non-Invasive 138 1 KEITH FRANKLIN MD [facility] 04-09-2022 11:28-0500 Diastolic Blood Pressure Non-Invasive 73 1 ESTRADA BEGUM 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 [facility] 04-09-2022 11:28-0500 Heart rate 66 /min ESTRADA BEGUM 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 [facility] 04-09-2022 11:28-0500 Respiratory rate 18 /min ESTRADA KAPPER 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 [facility] 04-09-2022 11:28-0500 Systolic Blood Pressure Non-Invasive 142 1 ESTRADA KAPPER 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 [facility] 04-09-2022 07:51-0500 Body temperature 97.16 [degF] ESTRADA KAPPER 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 [facility] 04-09-2022 07:51-0500 Diastolic Blood Pressure Non-Invasive 74 1 ESTRADA KAPPER 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 [facility] 04-09-2022 07:51-0500 Heart rate 67 /min ESTRADA KAPPER 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 [facility] 04-09-2022 07:51-0500 Respiratory rate 18 /min ESTRADA KAPPER 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 [facility] 04-09-2022 07:51-0500 Systolic Blood Pressure Non-Invasive 140 1 ESTRADA KAPPER 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 [facility] 04-09-2022 04:55-0500 Body temperature 97.52 [degF] ESTRADA KAPPER 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 [facility] 04-09-2022 04:55-0500 Diastolic Blood Pressure Non-Invasive 82 1 ESTRADA KAPPER 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 [facility] 04-09-2022 04:55-0500 Heart rate 71 /min ESTRADA KAPPER 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 [facility] 04-09-2022 04:55-0500 Respiratory rate 16 /min ESTRADA KAPPER 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 [facility] 04-09-2022 04:55-0500 Systolic Blood Pressure Non-Invasive 127 1 ESTRADA FRANKLINER 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 [facility] 04-08-2022 23:28-0500 Body temperature 97.88 [degF] ESTRADA REIDER 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 [facility] 04-08-2022 18:42-0500 Heart rate 71 /min ESTRADA KAPPER 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 [facility] 04-08-2022 17:44-0500 Heart rate 77 /min ESTRADA KAPPER 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 [facility] 04-08-2022 15:29-0500 Heart rate 71 /min ESTRADA KAPPER 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 [facility] 04-08-2022 15:29-0500 Reason For Taking VItal Signs ESTRADA FRANKLINER 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 [facility] 04-08-2022 13:19-0500 Reason For Taking VItal Signs ESTRADAFamilia REIDER 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 [facility] 04-08-2022 13:14-0500 Reason For Taking VItal Signs ESTRADA REIDER 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 [facility] 04-08-2022 12:38-0500 Body height 170.2 cm ESTRADA FRANKLINER 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 [facility] 04-08-2022 12:38-0500 Body weight 121 kg ESTRADA KAPPER 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 [facility] 04-08-2022 12:38-0500 Body weight 41.77 kg/m2 ESTRADA KAPPER 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 [facility] 04-08-2022 12:35-0500 Body height 170.2 cm ESTRADA KAPPER 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 [facility] 04-08-2022 12:35-0500 Body weight 121 kg ESTRADA BEGUM 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 [facility] 04-08-2022 12:35-0500 Body weight 41.77 kg/m2 ESTRADA REIDAZ 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 [facility] 03-19-2022 12:02-0500 Body height 170.2 cm LAKHWINDER BERNAL MD [facility] 03-19-2022 12:02-0500 Body temperature 98.78 [degF] LAKHWINDER BERNAL MD [facility] 03-19-2022 12:02-0500 Body weight 129.5 kg LAKHWINDER BERNAL MD [facility] 03-19-2022 12:02-0500 Diastolic Blood Pressure Non-Invasive 76 1 LAKHWINDER BERNAL MD [facility] 03-19-2022 12:02-0500 Heart rate 89 /min LAKHWINDER BERNAL MD [facility] 03-19-2022 12:02-0500 Respiratory rate 18 /min LAKHWINDER BERNAL MD [facility] 03-19-2022 12:02-0500 Systolic Blood Pressure Non-Invasive 158 1 LAKHWINDER BERNAL MD [facility] 12-31-2021 16:50-0400 Diastolic blood pressure 67 mm[Hg] VICTOR M WALTON MD [facility] 12-31-2021 16:50-0400 Heart rate 88 /min VICTOR M WALTON MD [facility] 12-31-2021 16:50-0400 Respiratory rate 16 /min VICTOR M WALTON MD [facility] 12-31-2021 16:50-0400 Systolic blood pressure 121 mm[Hg] VICTOR M WALTON MD [facility] 12-31-2021 16:06-0400 Body height 170 cm VICTOR M WALTON MD [facility] 12-31-2021 16:06-0400 Body temperature 96.98 [degF] VICTOR M WALTON MD [facility] 12-31-2021 16:06-0400 Body weight 134.5 kg VICTOR M WALTON MD [facility] 12-31-2021 16:06-0400 Diastolic blood pressure 91 mm[Hg] VICTOR M WALTON MD [facility] 12-31-2021 16:06-0400 Heart rate 80 /min VICTOR M WALTON MD [facility] 12-31-2021 16:06-0400 Respiratory rate 20 /min VICTOR M WALTON MD [facility] 12-31-2021 16:06-0400 Systolic blood pressure 150 mm[Hg] VICTOR M WALTON MD [facility] 12-30-2021 09:40-0400 Body temperature 97.88 [degF] DR ELDON ORANTES MD [facility] 12-30-2021 09:40-0400 Diastolic blood pressure 73 mm[Hg] DR ELDON ORANTES MD [facility] 12-30-2021 09:40-0400 Heart rate 96 /min DR ELDON ORANTES MD [address] [place] [address] 12-30-2021 09:40-0400 Mean blood pressure 90 mm[Hg] DR ELDON ORANTES MD [address] [place] [address] 12-30-2021 09:40-0400 Reason For Taking VItal Signs DR ELDON ORANTES MD [address] [place] [address] 12-30-2021 09:40-0400 Respiratory rate 16 /min DR ELDON ORANTES MD [address] [place] [address] 12-30-2021 09:40-0400 Systolic blood pressure 125 mm[Hg] DR ELDON ORANTES MD [address] [place] [address] 12-30-2021 04:04-0400 Body temperature 97.52 [degF] DR ELDON ORANTES MD [address] [place] [address] 12-30-2021 04:04-0400 Diastolic blood pressure 68 mm[Hg] DR ELDON ORANTES MD [address] [place] [address] 12-30-2021 04:04-0400 Heart rate 97 /min DR ELDON ORANTES MD [address] [place] [address] 12-30-2021 04:04-0400 Mean blood pressure 87 mm[Hg] DR ELDON ORANTES MD [address] [place] [address] 12-30-2021 04:04-0400 Reason For Taking VItal Signs DR ELDON ORANTES MD [address] [place] [address] 12-30-2021 04:04-0400 Respiratory rate 16 /min DR ELDON ORANTES MD [address] [place] [address] 12-30-2021 04:04-0400 Systolic blood pressure 126 mm[Hg] DR ELDON ORANTES MD [address] [place] [address] 12-29-2021 23:29-0400 Body temperature 97.7 [degF] DR ELDON ORANTES MD [address] [place] [address] 12-29-2021 23:29-0400 Diastolic blood pressure 70 mm[Hg] DR ELDON ORANTES MD [address] [place] [address] 12-29-2021 23:29-0400 Heart rate 80 /min DR ELDON ORANTES MD [address] [place] [address] 12-29-2021 23:29-0400 Respiratory rate 20 /min DR ELDON ORANTES MD [address] [place] [address] 12-29-2021 23:29-0400 Systolic blood pressure 106 mm[Hg] DR ELDON ORANTES MD [address] [place] [address] 12-29-2021 18:29-0400 Heart rate 77 /min DR ELDON ORANTES MD [address] [place] [address] 12-29-2021 18:29-0400 Reason For Taking VItal Signs DR ELDON ORANTES MD [address] [place] [address] 12-29-2021 17:12-0400 Heart rate 85 /min DR ELDON ORANTES MD [address] [place] [address] 12-29-2021 17:12-0400 Mean blood pressure 95 mm[Hg] DR ELDON ORANTES MD [address] [place] [address] 12-29-2021 08:07-0400 Diastolic Blood Pressure NBP [address] ELDON ORANTES MD [address] [place] [address] 12-29-2021 08:07-0400 Systolic Blood Pressure NBP [address] ELDON ORANTES MD [address] [place] [address] 12-29-2021 05:10-0400 Body height 170.[address] ELDON ORANTES MD [address] [place] [address] 12-29-2021 05:10-0400 Body weight [address] ELDON ORANTES MD [address] [place] [address] 12-29-2021 05:10-0400 Body weight 48.33 kg/m2 DR ELDON ORANTES MD [address] [place] [address] 12-29-2021 05:10-0400 Diastolic Blood Pressure NBP [address] ELDON ORANTES MD [facility] 12-29-2021 05:10-0400 Systolic Blood Pressure NBP [address] ELDON ORANTES MD [facility] 12-29-2021 04:32-0400 Body height 170.2 cm NIKKI ROSA MD [facility] 12-29-2021 04:32-0400 Body weight 140 kg NIKKI ROSA MD [facility] 12-29-2021 04:32-0400 Body weight 48.33 kg/m2 NIKKI ROSA MD [facility] 12-29-2021 02:56-0400 Body temperature 98.78 [degF] NIKKI ROSA MD [facility] 12-29-2021 02:56-0400 Diastolic blood pressure 93 mm[Hg] NIKKI ROSA MD [facility] 12-29-2021 02:56-0400 Heart rate 118 /min NIKKI ROSA MD [facility] 12-29-2021 02:56-0400 Respiratory rate 18 /min NIKKI ROSA MD [facility] 12-29-2021 02:56-0400 Systolic blood pressure 119 mm[Hg] NIKKI ROSA MD [facility] 12-29-2021 01:58-0400 Body temperature 100.94 [degF] NIKKI ROSA MD [facility] 12-29-2021 00:58-0400 Diastolic blood pressure 64 mm[Hg] NIKKI ROSA MD [facility] 12-29-2021 00:58-0400 Heart rate 125 /min NIKKI ROSA MD [facility] 12-29-2021 00:58-0400 Respiratory rate 16 /min NIKKI ROSA MD [facility] 12-29-2021 00:58-0400 Systolic blood pressure 127 mm[Hg] NIKKI ROSA MD [facility] 12-28-2021 22:30-0400 Diastolic blood pressure 70 mm[Hg] NIKKI ROSA MD [facility] 12-28-2021 22:30-0400 Heart rate 124 /min NIKKI ROSA MD [facility] 12-28-2021 22:30-0400 Respiratory rate 15 /min NIKKI ROSA MD [facility] 12-28-2021 22:30-0400 Systolic blood pressure 115 mm[Hg] NIKKI ROSA MD [facility] 12-28-2021 21:27-0400 Body height 170.2 cm NIKKI ROSA MD [facility] 12-28-2021 21:27-0400 Body temperature 98.42 [degF] NIKKI ROSA MD [facility] 12-28-2021 21:27-0400 Heart rate 146 /min NIKKI ROSA MD [facility] 12-04-2021 18:54-0400 Body height 170.18 cm No Primary Care Physician [facility] Work Phone: 12-04-2021 18:54-0400 Body mass index (BMI) [Ratio] 45.7 kg/m2 No Primary Care Physician [facility] Work Phone: 12-04-2021 18:54-0400 Body temperature 97.1 [degF] No Primary Care Physician [facility] Work Phone: 12-04-2021 18:54-0400 Body weight 132.44 kg No Primary Care Physician [facility] Work Phone: 12-04-2021 18:54-0400 Diastolic blood pressure 79 mm[Hg] No Primary Care Physician [facility] Work Phone: 12-04-2021 18:54-0400 Heart rate 102 /min No Primary Care Physician [facility] Work Phone: 12-04-2021 18:54-0400 Respiratory rate 18 /min No Primary Care Physician [facility] Work Phone: 12-04-2021 18:54-0400 SaO2% (BldA) [Mass fraction] 97 % No Primary Care Physician [facility] Work Phone: 12-04-2021 18:54-0400 Systolic blood pressure 146 mm[Hg] No Primary Care Physician [facility] Work Phone: 11-26-2021 02:48-0400 Respiratory rate 16 /min No Primary Care Physician [facility] Work Phone: 11-26-2021 00:31-0400 Body mass index (BMI) [Ratio] 49.1 kg/m2 No Primary Care Physician [facility] Work Phone: 11-26-2021 00:31-0400 Body temperature 97.8 [degF] No Primary Care Physician [facility] Work Phone: 11-26-2021 00:31-0400 Body weight 142.3 kg No Primary Care Physician [facility] Work Phone: 11-26-2021 00:31-0400 Diastolic blood pressure 99 mm[Hg] No Primary Care Physician [facility] Work Phone: 11-26-2021 00:31-0400 Heart rate 85 /min No Primary Care Physician [facility] Work Phone: 11-26-2021 00:31-0400 SaO2% (BldA) [Mass fraction] 100 % No Primary Care Physician [facility] Work Phone: 11-26-2021 00:31-0400 Systolic blood pressure 171 mm[Hg] No Primary Care Physician [facility] Work Phone: 11-17-2021 22:08-0400 Body temperature 98.06 [degF] [facility] DO [facility] 11-17-2021 22:08-0400 Diastolic blood pressure 80 mm[Hg] MICHELLE REICHFIELD DO [facility] 11-17-2021 22:08-0400 Heart rate 86 /min MICHELLE REICHFIELD DO [facility] 11-17-2021 22:08-0400 Mean blood pressure 92 mm[Hg] MICHELLE REICHFIELD DO [facility] 11-17-2021 22:08-0400 Respiratory rate 18 /min MICHELLE REICHFIELD DO [facility] 11-17-2021 22:08-0400 Systolic blood pressure 117 mm[Hg] MICHELLE REICHFIELD DO [facility] 10-27-2021 23:53-0400 Body height 170.18 cm No Primary Care Physician [facility] Work Phone: 10-27-2021 23:53-0400 Body mass index (BMI) [Ratio] 44.6 kg/m2 No Primary Care Physician [facility] Work Phone: 10-27-2021 23:53-0400 Body temperature 98.6 [degF] No Primary Care Physician [facility] Work Phone: 10-27-2021 23:53-0400 Body weight 129.27 kg No Primary Care Physician [facility] Work Phone: 10-27-2021 23:53-0400 Diastolic blood pressure 98 mm[Hg] No Primary Care Physician [facility] Work Phone: 10-27-2021 23:53-0400 Heart rate 103 /min No Primary Care Physician [facility] Work Phone: 10-27-2021 23:53-0400 Respiratory rate 16 /min No Primary Care Physician [facility] Work Phone: 10-27-2021 23:53-0400 SaO2% (BldA) [Mass fraction] 95 % No Primary Care Physician [facility] Work Phone: 10-27-2021 23:53-0400 Systolic blood pressure 134 mm[Hg] No Primary Care Physician [facility] Work Phone: 10-17-2021 01:05-0400 Body mass index (BMI) [Ratio] 44.8 kg/m2 No Primary Care Physician [facility] Work Phone: 10-17-2021 01:05-0400 Body temperature 97.3 [degF] No Primary Care Physician [facility] Work Phone: 10-17-2021 01:05-0400 Body weight 129.72 kg No Primary Care Physician [facility] Work Phone: 10-17-2021 01:05-0400 Diastolic blood pressure 78 mm[Hg] No Primary Care Physician [facility] Work Phone: 10-17-2021 01:05-0400 Heart rate 87 /min No Primary Care Physician [facility] Work Phone: 10-17-2021 01:05-0400 Respiratory rate 16 /min No Primary Care Physician [facility] Work Phone: 10-17-2021 01:05-0400 SaO2% (BldA) [Mass fraction] 98 % No Primary Care Physician [facility] Work Phone: 10-17-2021 01:05-0400 Systolic blood pressure 151 mm[Hg] No Primary Care Physician [facility] Work Phone: 08-25-2021 14:25-0400 Body temperature 97.4 [degF] No Primary Care Physician [facility] Work Phone: 08-25-2021 14:25-0400 Diastolic blood pressure 90 mm[Hg] No Primary Care Physician [facility] Work Phone: 08-25-2021 14:25-0400 Heart rate 73 /min No Primary Care Physician [facility] Work Phone: 08-25-2021 14:25-0400 Respiratory rate 18 /min No Primary Care Physician [facility] Work Phone: 08-25-2021 14:25-0400 SaO2% (BldA) [Mass fraction] 97 % No Primary Care Physician [facility] Work Phone: 08-25-2021 14:25-0400 Systolic blood pressure 146 mm[Hg] No Primary Care Physician [facility] Work Phone: 08-25-2021 11:45-0400 Body height 170.18 cm No Primary Care Physician [facility] Work Phone: 08-25-2021 11:45-0400 Body weight 132.6 kg No Primary Care Physician [facility] Work Phone: 08-25-2021 07:26-0400 Body mass index (BMI) [Ratio] 45.8 kg/m2 No Primary Care Physician [facility] Work Phone: 08-25-2021 05:00-0400 Diastolic blood pressure 68 mm[Hg] DR JG ASHRAF DO [facility] 08-25-2021 05:00-0400 Heart rate 69 /min DR JG ASHRAF DO [facility] 08-25-2021 05:00-0400 Respiratory rate 15 /min DR GREGORIO RIDER DO [facility] 08-25-2021 05:00-0400 Systolic blood pressure 122 mm[Hg] DR GREGORIO RIDER DO [facility] 08-25-2021 04:00-0400 Diastolic blood pressure 76 mm[Hg] DR GREGORIO RIDER DO [facility] 08-25-2021 04:00-0400 Heart rate 75 /min DR GREGORIO RIDER DO [facility] 08-25-2021 04:00-0400 Respiratory rate 14 /min DR GAYLEY RIDER DO [facility] 08-25-2021 03:00-0400 Diastolic blood pressure 72 mm[Hg] DR GREGORIO RIDER DO [facility] 08-25-2021 03:00-0400 Heart rate 84 /min DR GAYLEY RIDER DO [facility] 08-25-2021 03:00-0400 Respiratory rate 16 /min DR JG RIDER DO [facility] 08-25-2021 03:00-0400 Systolic blood pressure 139 mm[Hg] DR GREGORIO RIDER DO [facility] 08-24-2021 23:30-0400 Heart rate 90 /min DR JG ASHRAF DO [facility] 08-24-2021 23:00-0400 Heart rate 92 /min DR GREGORIO KEELEYAZ DO [facility] 08-24-2021 22:32-0400 Body temperature 98.24 [degF] DR JG ASHRAF DO [facility] 08-24-2021 22:32-0400 Heart rate 98 /min DR GREGORIO KEELEYAZ DO [facility] 08-24-2021 01:34-0400 Body mass index (BMI) [Ratio] 46 kg/m2 No Primary Care Physician [facility] Work Phone: 08-24-2021 01:34-0400 Body temperature 97.9 [degF] No Primary Care Physician [facility] Work Phone: 08-24-2021 01:34-0400 Body weight 133.35 kg No Primary Care Physician [facility] Work Phone: 08-24-2021 01:34-0400 Diastolic blood pressure 78 mm[Hg] No Primary Care Physician [facility] Work Phone: 08-24-2021 01:34-0400 Heart rate 99 /min No Primary Care Physician [facility] Work Phone: 08-24-2021 01:34-0400 Respiratory rate 17 /min No Primary Care Physician [facility] Work Phone: 08-24-2021 01:34-0400 SaO2% (BldA) [Mass fraction] 98 % No Primary Care Physician [facility] Work Phone: 08-24-2021 01:34-0400 Systolic blood pressure 149 mm[Hg] No Primary Care Physician [facility] Work Phone: 08-21-2021 01:13-0400 Body temperature 98.06 [degF] EDUIN ESCOBAR MD [facility] 08-21-2021 01:13-0400 Diastolic blood pressure 79 mm[Hg] EDUIN ESCOBAR MD [facility] 08-21-2021 01:13-0400 Heart rate 93 /min EDUIN ESCOBAR MD [facility] 08-21-2021 01:13-0400 Respiratory rate 18 /min EDUIN ESCOBAR MD [facility] 08-21-2021 01:13-0400 Systolic blood pressure 130 mm[Hg] EDUIN ESCOBAR MD [facility] 08-12-2021 01:30-0400 Diastolic blood pressure 73 mm[Hg] No Primary Care Physician [facility] Work Phone: 08-12-2021 01:30-0400 Heart rate 84 /min No Primary Care Physician [facility] Work Phone: 08-12-2021 01:30-0400 SaO2% (BldA) [Mass fraction] 96 % No Primary Care Physician [facility] Work Phone: 08-12-2021 01:30-0400 Systolic blood pressure 147 mm[Hg] No Primary Care Physician [facility] Work Phone: 08-11-2021 20:43-0400 Body mass index (BMI) [Ratio] 45.1 kg/m2 No Primary Care Physician [facility] Work Phone: 08-11-2021 20:43-0400 Body temperature 98.1 [degF] No Primary Care Physician [facility] Work Phone: 08-11-2021 20:43-0400 Body weight 130.63 kg No Primary Care Physician [facility] Work Phone: 08-11-2021 20:43-0400 Respiratory rate 14 /min No Primary Care Physician [facility] Work Phone: 08-08-2021 03:42-0400 Diastolic blood pressure 71 mm[Hg] DR JG ASHRAF DO [facility] 08-08-2021 03:42-0400 Heart rate 91 /min DR JG ASHRAF DO [facility] 08-08-2021 03:42-0400 Respiratory rate 15 /min DR JG ASHRAF DO [facility] 08-08-2021 03:42-0400 Systolic blood pressure 117 mm[Hg] DR JG ASHRAF DO [facility] 07-18-2021 18:29-0400 Body mass index (BMI) [Ratio] 45.1 kg/m2 No Primary Care Physician [facility] Work Phone: 07-18-2021 18:29-0400 Body temperature 97.2 [degF] No Primary Care Physician [facility] Work Phone: 07-18-2021 18:29-0400 Body weight 130.8 kg No Primary Care Physician [facility] Work Phone: 07-18-2021 18:29-0400 Diastolic blood pressure 110 mm[Hg] No Primary Care Physician [facility] Work Phone: 07-18-2021 18:29-0400 Heart rate 87 /min No Primary Care Physician [facility] Work Phone: 07-18-2021 18:29-0400 Respiratory rate 20 /min No Primary Care Physician [facility] Work Phone: 07-18-2021 18:29-0400 SaO2% (BldA) [Mass fraction] 95 % No Primary Care Physician [facility] Work Phone: 07-18-2021 18:29-0400 Systolic blood pressure 142 mm[Hg] No Primary Care Physician [facility] Work Phone: 06-19-2021 21:01-0400 Body height 170.2 cm [facility] DO [facility] 06-19-2021 21:01-0400 Body temperature 98.06 [degF] MICHELLE REICHFIELD DO [facility] 06-19-2021 21:01-0400 Body weight 129.5 kg MICHELLE REICHFIELD DO [facility] 06-19-2021 21:01-0400 Diastolic blood pressure 86 mm[Hg] MICHELLE REICHFIELD DO [facility] 06-19-2021 21:01-0400 Heart rate 89 /min MICHELLE REICHFIELD DO [facility] 06-19-2021 21:01-0400 Respiratory rate 18 /min MICHELLE REICHFIELD DO [facility] 06-19-2021 21:01-0400 Systolic blood pressure 141 mm[Hg] MICHELLE RIZO DO [facility] 05-26-2021 01:13-0500 Diastolic blood pressure 80 mm[Hg] No Primary Care Physician [facility] Work Phone: 05-26-2021 01:13-0500 Heart rate 76 /min No Primary Care Physician [facility] Work Phone: 05-26-2021 01:13-0500 Respiratory rate 18 /min No Primary Care Physician [facility] Work Phone: 05-26-2021 01:13-0500 SaO2% (BldA) [Mass fraction] 96 % No Primary Care Physician [facility] Work Phone: 05-26-2021 01:13-0500 Systolic blood pressure 148 mm[Hg] No Primary Care Physician [facility] Work Phone: 05-26-2021 00:11-0500 Body mass index (BMI) [Ratio] 45.1 kg/m2 No Primary Care Physician [facility] Work Phone: 05-26-2021 00:11-0500 Body temperature 97.8 [degF] No Primary Care Physician [facility] Work Phone: 05-26-2021 00:11-0500 Body weight 130.72 kg No Primary Care Physician [facility] Work Phone: 05-08-2021 23:05-0500 Body mass index (BMI) [Ratio] 45.3 kg/m2 No Primary Care Physician [facility] Work Phone: 05-08-2021 23:05-0500 Body temperature 97.9 [degF] No Primary Care Physician [facility] Work Phone: 05-08-2021 23:05-0500 Body weight 131.3 kg No Primary Care Physician [facility] Work Phone: 05-08-2021 23:05-0500 Diastolic blood pressure 90 mm[Hg] No Primary Care Physician [facility] Work Phone: 05-08-2021 23:05-0500 Heart rate 83 /min No Primary Care Physician [facility] Work Phone: 05-08-2021 23:05-0500 Respiratory rate 18 /min No Primary Care Physician [facility] Work Phone: 05-08-2021 23:05-0500 SaO2% (BldA) [Mass fraction] 99 % No Primary Care Physician [facility] Work Phone: 05-08-2021 23:05-0500 Systolic blood pressure 159 mm[Hg] No Primary Care Physician [facility] Work Phone: 04-28-2021 23:07-0500 Diastolic blood pressure 80 mm[Hg] DR MU SERVIN MD [facility] 04-28-2021 23:07-0500 Heart rate 74 /min DR MU SERVIN MD [facility] 04-28-2021 23:07-0500 Respiratory rate 16 /min DR MU SERVIN MD [facility] 04-28-2021 23:07-0500 Systolic blood pressure 142 mm[Hg] DR MU SERVIN MD [facility] 04-28-2021 22:26-0500 Diastolic blood pressure 83 mm[Hg] DR MU SERVIN MD [facility] 04-28-2021 22:26-0500 Heart rate 72 /min DR MU SERVIN MD [facility] 04-28-2021 22:26-0500 Reason For Taking VItal Signs DR MU SERVIN MD [facility] 04-28-2021 22:26-0500 Respiratory rate 16 /min DR MU SERVIN MD [facility] 04-28-2021 22:26-0500 Systolic blood pressure 147 mm[Hg] DR MU SERVIN MD [facility] 04-28-2021 22:11-0500 Body temperature 98.42 [degF] DR MU SERVIN MD [facility] 04-28-2021 22:11-0500 Diastolic blood pressure 95 mm[Hg] DR MU SERVIN MD [facility] 04-28-2021 22:11-0500 Heart rate 74 /min DR MU SERVIN MD [facility] 04-28-2021 22:11-0500 Mean blood pressure 123 mm[Hg] DR MU SERVIN MD [facility] 04-28-2021 22:11-0500 Systolic blood pressure 180 mm[Hg] DR MU SERVIN MD [facility] 03-18-2021 00:01-0500 Body height 170.[address] JG ASHRAF DO [facility] 03-18-2021 00:01-0500 Body temperature 98.24 [degF] DR JG ASHRAF DO [facility] 03-18-2021 00:01-0500 Body weight 120.[address] GREGORIO KEELEYAZ DO [facility] 03-18-2021 00:01-0500 Diastolic blood pressure 79 mm[Hg] DR JG ASHRAF DO [facility] 03-18-2021 00:01-0500 Heart rate 75 /min DR JG ASHRAF DO [facility] 03-18-2021 00:01-0500 Respiratory rate 24 /min DR JG ASHRAF DO [facility] 03-18-2021 00:01-0500 Systolic blood pressure 129 mm[Hg] DR JG ASHRAF DO [facility] 03-12-2021 14:28-0500 Diastolic blood pressure 85 mm[Hg] MICHELLE REICHFIELD DO [facility] 03-12-2021 14:28-0500 Heart rate 86 /min MICHELLE REICHFIELD DO [facility] 03-12-2021 14:28-0500 Respiratory rate 18 /min MICHELLE REICHFIELD DO [facility] 03-12-2021 14:28-0500 Systolic blood pressure 141 mm[Hg] MICHELLE REICHFIELD DO [facility] 03-12-2021 13:34-0500 Diastolic blood pressure 80 mm[Hg] MICHELLE REICHFIELD DO [facility] 03-12-2021 13:34-0500 Heart rate 78 /min MICHELLE REICHFIELD DO [facility] 03-12-2021 13:34-0500 Respiratory rate 20 /min MICHELLE REICHFIELD DO [facility] 03-12-2021 13:34-0500 Systolic blood pressure 156 mm[Hg] MICHELLE REICHFIELD DO [facility] 03-12-2021 13:00-0500 Systolic blood pressure 148 mm[Hg] MICHELLE REICHFIELD DO [facility] 03-12-2021 12:03-0500 Body height 170 cm MICHELLE REICHFIELD DO [facility] 03-12-2021 12:03-0500 Body temperature 97.88 [degF] MICHELLE REICHFIELD DO [facility] 03-12-2021 12:03-0500 Body weight 120 kg MICHELLE REICHFIELD DO [facility] Encounters Encounter Date Encounter Type Care Provider Facility Start: 08-27-2024 End: 08-27-2024 EILEEN ELI Work Phone: -Emergency Department Work Phone: Start: 08-27-2024 End: 08-27-2024 Emergency department patient visit EILEEN MAST MEDICATION ASSISTANT Work Phone: [facility] Work Phone: Start: 08-27-2024 End: 08-27-2024 Emergency department patient visit VICTOR M WALTON MD [facility] Start: 08-07-2024 End: 08-07-2024 EILEEN MAST MEDICATION ASSISTANT Work Phone: -Emergency Department Work Phone: Start: 08-07-2024 End: 08-07-2024 Emergency department patient visit EILEEN MAST MEDICATION ASSISTANT Work Phone: [facility] Work Phone: Start: 07-20-2024 End: 07-20-2024 Patient encounter procedure Asia Salgado APRN.TELEVISION CABINET FINISHER Work Phone: General Surgery Comment on above: Diverticulitis (Prim park Dx); RLQ discomfort Start: 07-20-2024 End: 07-20-2024 ambulatory SELF Facility:[facility] Start: 07-14-2024 ambulatory EILEEN MAST Facility:[facility] Start: 07-14-2024 Dr. Harry Patel MD -[facility] Start: 07-14-2024 End: 07-14-2024 Emergency department patient visit EILEEN MAST MEDICATION ASSISTANT Work Phone: [facility] Work Phone: Start: 07-14-2024 End: 07-14-2024 EILEEN MAST MEDICATION ASSISTANT Work Phone: -Emergency Department Work Phone: Start: 07-14-2024 End: 07-14-2024 ambulatory EILEEN MAST [facility] Start: 07-02-2024 End: 07-02-2024 Evaluation and management of inpatient Dr. Patrick Peng DO -Medical Surgical 3 Work Phone: Start: 07-02-2024 End: 07-02-2024 observation encounter EILEEN MAST MEDICATION ASSISTANT Work Phone: [facility] Work Phone: Start: 07-02-2024 End: 07-02-2024 ambulatory EILEEN MAST Facility:[facility] Start: 07-02-2024 Non-patient / Non-visit Dr. Radha Mercado DO -[facility] Work Phone: Start: 07-02-2024 End: 07-02-2024 Dr. Patrick Peng DO -Medical Surgical 3 Work Phone: Start: 06-30-2024 End: 06-30-2024 ambulatory GUERLINE ANDERSEN Facility:[facility] Start: 06-30-2024 End: 06-30-2024 Patient encounter procedure Guerline Andersen MD Work Phone: General Surgery Comment on above: Left upper quadrant pain (Primary Dx) Start: 06-24-2024 End: 06-25-2024 Marv Pack DO -Emergency Departmen t Work Phone: Start: 06-24-2024 End: 06-25-2024 Emergency department patient visit Dr. Abran Simeon DO Work Phone: -Emergency Department Work Phone: Start: 06-10-2024 ambulatory EILEEN MAST Facility:[facility] Start: 05-29-2024 End: 05-30-2024 Dr. Luis Marmolejo DO -Emergency Departmen t Work Phone: Start: 05-29-2024 End: 05-30-2024 Emergency department patient visit Dr. Abran Simeon DO Work Phone: -Emergency Department Work Phone: Start: 05-28-2024 End: 05-28-2024 Telemedicine consultation with patient Deandra Ochoa DO Work Phone: Orthopaedics Start: 05-28-2024 End: 05-28-2024 ambulatory Deandra Ochoa DO Work Phone: Orthopaedics Comment on above: Lesion of left ulnar nerve (Primary Dx); Left elbow pain Start: 05-08-2024 End: 05-08-2024 Dr. Patrick Moreno DO -Emergency Departut nt Work Phone: Start: 05-08-2024 End: 05-08-2024 Emergency department patient visit Dr. Patrick Moreno DO -Emergency Department Work Phone: Start: 05-03-2024 Non-patient / Non-visit Logan Julio campos DO [facility] Start: 05-03-2024 Logan Christopher DO -[facility] Start: 05-03-2024 ambulatory Nicolas Sanchez Fa cility:[facility] Start: 05-03-2024 Non-patient / Non-visit Dr. Lina Sanchez MD -[facility] Start: 05-03-2024 Dr. Nicolas Sanchez MD -[facility] Start: 05-03-2024 End: 05-03-2024 Evaluation and management of inpatient Dr. Luis James MD -Progressive Care Unit Work Phone: Start: 05-03-2024 End: 05-03-2024 Dr. Luis James MD -Progressive Care Unit Work Phone: Start: 05-02-2024 End: 05-02-2024 Emergency department patient visit VICTOR M WALTON MD [facility] Start: 05-02-2024 End: 05-03-2024 ambulatory Azalea Carl RN [employer] Comment on above: Chest Pain; Rectal B leeding Start: 04-28-2024 End: 04-28-2024 Dr. [facility] Work Phone: Start: 04-28-2024 End: 04-28-2024 Emergency department patient visit Dr. Sidney Singh MD -Emergency Department Work Phone: Start: 04-21-2024 End: 04-21-2024 ambulatory EILEEN MAST Facility:[facility] Start: 04-21-2024 End: 04-21-2024 Subsequent hospital visit by physician Guerline Andersen MD Work Phone: Ambulatory Surgery Comment on above: Chronic RLQ pain [R1 0.31, G89.29] Start: 04-09-2024 End: 04-09-2024 ambulatory Deandra Ochoa DO Work Phone: Orthopaedics Comment on above: Lesion of left ulnar nerve (Primary Dx) Start: 04-09-2024 End: 04-09-2024 Telemedicine consultation with patient Deandra Ochoa DO Work Phone: Orthopaedics Start: 04-07-2024 ambulatory EILEEN MAST Facility:[facility] Start: 04-07-2024 End: 04-07-2024 Subsequent hospital visit by physician [facility] (1.5t) Radiology Comment on above: 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] Start: 03-29-2024 End: 03-30-2024 ambulatory Deandra Ochoa DO Work Phone: Orthopaedics Comment on above: I'm in pain Start: 03-23-2024 End: 03-23-2024 Patient encounter procedure Otis Altamirano MD Work Phone: Neurology Comment on above: Lesion of left ulnar nerve (Primary Dx) Start: 03-23-2024 End: 03-23-2024 ambulatory EILEEN MAST Facility:[facility] Start: 03-19-2024 End: 03-19-2024 ambulatory DEANDRA OCHOA Facility:[facility] Start: 03-19-2024 End: 03-19-2024 Patient encounter procedure Deandra Ochoa DO Work Phone: Orthopaedics Comment on above: Lesion of left ulnar nerve (Primary Dx); Elbow pain, chronic, left Start: 03-11-2024 End: 03-11-2024 Emergency department patient visit CARMEN LUNDBERG MD [facility] Start: 03-03-2024 End: 04-28-2024 Telephone encounter Asia Salgado APRN.TELEVISION CABINET FINISHER Work Phone: General Surgery Comment on above: 04-21-2024 colon [facility] Start: 03-03-2024 End: 03-03-2024 ambulatory EILEEN MAST Facility:[facility] Start: 03-03-2024 End: 03-03-2024 Patient encounter procedure Asia Salgado HADOOP JAVA DEVELOPER.TELEVISION CABINET FINISHER Work Phone: General Surgery Comment on above: Chronic RLQ pain (Pr imary Dx) Start: 03-02-2024 End: 03-02-2024 Emergency department patient visit Dr. Abran Simeon DO -Emergency Department Work Phone: Start: 03-01-2024 End: 03-04-2024 Telephone encounter Guerline Andersen MD Work Phone: General Surgery Comment on above: Orders; Appointment Start: 02-06-2024 End: 02-06-2024 Emergency department patient visit ELI REED DO [facility] Start: 12-17-2023 End: 12-17-2023 Patient encounter procedure Asia Salgado HADOOP JAVA DEVELOPER.TELEVISION CABINET FINISHER Work Phone: General Surgery Comment on above: Gastroesophageal ref lux disease without esophagitis (Primary Dx); Anal fissure Start: 12-17-2023 End: 12-17-2023 ambulatory ASIA SALGADO Facility:[facility] Start: 12-08-2023 End: 12-08-2023 ambulatory ELINOR CUNHA Facility:[facility] Start: 12-08-2023 End: 12-08-2023 Subsequent hospital visit by physician Elinor Cunha MD Work Phone: Ambulatory Surgery Comment on above: Chronic RLQ pain [R1 0.31, G89.29] Start: 12-05-2023 End: 12-05-2023 Patient encounter procedure Asia Salgado HADOOP JAVA DEVELOPER.TELEVISION CABINET FINISHER Work Phone: General Surgery Comment on above: Chronic RLQ pain (Pr imary Dx); BRBPR (bright red blood per rectum); Chronic RUQ pain; Epigastric pain; Gastroesophageal reflux disease without esophagitis Start: 12-05-2023 End: 12-05-2023 ambulatory ASIA WALDEMAR Facility:[facility] Start: 11-30-2023 End: 12-01-2023 Emergency department patient visit VICTOR M WALTON MD [facility] Start: 11-17-2023 End: 11-17-2023 ambulatory EILEEN MAST HADOOP JAVA 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 Facility:[facility] Start: 11-17-2023 End: 11-17-2023 Patient encounter procedure EILEEN MAST HADOOP JAVA 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 [facility] Start: 10-29-2023 End: 10-29-2023 Emergency department patient visit DR JG ASHRAF DO [facility] Start: 10-28-2023 Orders Only Deandra Ochoa DO Work Phone: [facility] [place] Comment on above: Pain (Primary Dx) Start: 10-20-2023 End: 10-21-2023 Emergency department patient visit No Primary Care Physician Facility:[facility] Start: 10-03-2023 End: 10-03-2023 Emergency department patient visit ADAM CARROLL DO [facility] Start: 08-25-2023 End: 08-25-2023 Emergency department patient visit DR VEE ERVIN MD [facility] Start: 08-20-2023 End: 08-21-2023 Emergency department patient visit JIMMIE CASIANO DO Facility:[facility] Start: 08-20-2023 End: 08-21-2023 Observation SHUN VENTURA HADOOP JAVA 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 [facility] Start: 07-15-2023 End: 07-15-2023 Patient encounter procedure Guerline Andersen MD Work Phone: General Surgery Comment on above: Anal fissure (Primar y Dx); Gastroesophageal reflux disease with esophagitis without hemorrhage; Obesity, Class III, BMI 40-49.9 (morbid obesity) ([facility]) Start: 06-25-2023 End: 06-25-2023 ambulatory VIC SAMANO Facility:[id number] Start: 06-25-2023 End: 06-25-2023 Patient encounter procedure [facility] Comment on above: Contusion of right b ack wall of thorax, initial encounter (Primary Dx); Fracture of one rib, right side, initial encounter for closed fracture Start: 06-22-2023 End: 06-22-2023 Emergency department patient visit [facility]-Emergency Department Work Phone: Start: 06-15-2023 End: 06-15-2023 Emergency department patient visit ADAM CARROLL DO [facility] Start: 06-11-2023 End: 06-11-2023 Orders Only Vic Samano DO Work Phone: [facility] Comment on above: Chest wall contusion , right, initial encounter (Primary Dx) Contusion of right b ack wall of thorax, initial encounter (Primary Dx); Fracture of one rib, right side, initial encounter for closed fracture Chest wall contusion , right, initial encounter [S20.211A] Start: 06-07-2023 End: 06-08-2023 Emergency department patient visit MICHELLE RIZO DO [facility] Start: 06-05-2023 End: 06-05-2023 Emergency department patient visit DR MU SERVIN MD [facility] Start: 04-17-2023 End: 04-17-2023 Emergency department patient visit NIKKI ROSA MD [facility] Start: 03-12-2023 End: 03-12-2023 Emergency department patient visit CARMEN LUNDBERG MD [facility] Start: 02-16-2023 End: 02-16-2023 Emergency department patient visit MICHELLE RIZO DO [facility] Start: 02-05-2023 End: 02-05-2023 ambulatory [facility] Work Phone: Start: 02-05-2023 End: 02-05-2023 Patient encounter procedure [facility]-Laboratory, Specimen Work Phone: Start: 01-23-2023 End: 01-23-2023 ambulatory [facility] Work Phone: Start: 01-23-2023 End: 01-23-2023 Patient encounter procedure [facility]Laboratory Work Phone: Start: 12-18-2022 End: 12-18-2022 Emergency department patient visit ADAM CARROLL DO [facility] Start: 11-27-2022 Telephone encounter Guerline Andersen MD Work Phone: General Surgery Comment on above: Results Start: 11-26-2022 End: 11-26-2022 Subsequent hospital visit by physician Guerline Andersen MD Work Phone: Ambulatory Surgery Comment on above: Constipation, unspec ified constipation type [K59.00] Start: 11-22-2022 End: 11-22-2022 Patient encounter procedure Guerline Andersen MD Work Phone: General Surgery Comment on above: Constipation, unspec ified constipation type (Primary Dx); Abdominal pain, unspecified abdominal location Start: 11-20-2022 End: 11-20-2022 Emergency department patient visit [facility]-Emergency Department Work Phone: Start: 09-15-2022 End: 09-15-2022 Emergency department patient visit [facility]-Emergency Department Start: 09-12-2022 Telephone encounter Guerline Andersen MD Work Phone: General Surgery Comment on above: Appointment (Walt hoff ) Start: 09-12-2022 End: 09-12-2022 Emergency department patient visit DR JG ASHRAF DO [facility] Start: 08-30-2022 End: 08-30-2022 Emergency department patient visit Facility:[facility] Start: 08-16-2022 End: 08-16-2022 ambulatory [facility] Facility:[facility] Start: 08-01-2022 End: 08-01-2022 Emergency department patient visit NIKKI ROSA MD [facility] Start: 07-18-2022 End: 07-18-2022 ambulatory [facility] Work Phone: Start: 07-18-2022 End: 07-18-2022 Patient encounter procedure [facility]-Laboratory Start: 07-10-2022 End: 07-11-2022 Emergency department patient visit [facility]-Emergency Department Start: 06-14-2022 End: 06-15-2022 Emergency department patient visit [facility]Emergency Department Start: 05-05-2022 End: 05-05-2022 Emergency department patient visit DR JG ASHRAF DO [facility] Start: 04-25-2022 End: 04-25-2022 Emergency department patient visit KEITH FRANKLIN MD [facility] Start: 04-25-2022 Telephone encounter Guerline Andersen MD Work Phone: General Surgery Comment on above: Patient Question (Re ctum bleeding) Start: 04-08-2022 End: 04-09-2022 Observation ESTRADA BEGMU APRN-TELEVISION CABINET FINISHER [facility] Start: 03-19-2022 End: 03-19-2022 Emergency department patient visit LAKHWINDER BERNAL MD [facility] Start: 01-08-2022 ambulatory Katerina Britt RN [employer]SE [employer] Comment on above: Rectal Bleeding Start: 12-31-2021 End: 12-31-2021 Emergency department patient visit VICTOR M WALTON MD [facility] Start: 12-29-2021 End: 12-30-[address] ELDON ORANTES MD [facility] Start: 12-28-2021 End: 12-29-2021 Emergency department patient visit NIKKI ROSA MD [facility] Start: 12-06-2021 End: 12-06-2021 Subsequent hospital visit by physician [facility] (I-Stat/1.5t) Work Phone: Radiology Comment on above: Strain of left bicep s, initial encounter [S46.212A] Start: 12-04-2021 End: 12-04-2021 Emergency department patient visit No Primary Care Physician [facility]-Emergency Department Start: 11-26-2021 End: 11-26-2021 Emergency department patient visit No Primary Care Physician [facility]Emergency Department Start: 11-21-2021 End: 11-21-2021 Patient encounter procedure Deandra Ochoa DO Work Phone: Orthopaedics Comment on above: Strain of left bicep s, initial encounter (Primary Dx); Medial epicondylitis of left elbow; Contusion of bone; Sprain of ulnar collateral ligament of left elbow, initial encounter Start: 11-21-2021 End: 11-21-2021 Subsequent hospital visit by physician Radio General Edel Weathers Work Phone: Radiology Comment on above: Pain [R52] Start: 11-17-2021 End: 11-18-2021 Emergency department patient visit MICHELLE RIZO DO [facility] Start: 10-27-2021 End: 10-28-2021 Emergency department patient visit No Primary Care Physician [facility]Emergency Department Start: 10-17-2021 End: 10-17-2021 Emergency department patient visit No Primary Care Physician [facility]-Emergency Department Start: 08-25-2021 Non-patient / Non-visit No Ana john Care Physician [facility] Start: 08-25-2021 Non-patient / Non-visit No [facility] Care Physician [facility] Start: 08-25-2021 Non-patient / Non-visit No Ana john Care Physician [facility] Inpatient Physicians Start: 08-25-2021 End: 08-25-2021 Evaluation and management of inpatient No Primary Care Physician [facility]-Progressive Care Unit Start: 08-25-2021 End: 08-25-2021 Evaluation and management of inpatient No [facility] Start: 08-24-2021 End: 08-25-2021 Emergency department patient visit DR JG ASHRAF DO [facility] Start: 08-24-2021 End: 08-24-2021 Emergency department patient visit No Primary Care Physician [facility]Emergency Department Start: 08-21-2021 End: 08-21-2021 Patient encounter procedure FRANCISCO JAVIER HEDRICK PA-C [facility] Start: 08-21-2021 End: 08-21-2021 Emergency department patient visit EDUIN ESCOBAR MD [facility] Start: 08-11-2021 End: 08-12-2021 Emergency department patient visit No Primary Care Physician [facility]Emergency Department Start: 08-08-2021 End: 08-08-2021 Emergency department patient visit DR JG ASHRAF DO [facility] Start: 07-18-2021 End: 07-18-2021 Emergency department patient visit No Primary Care Physician [facility]Emergency Department Start: 06-19-2021 End: 06-19-2021 Emergency department patient visit MICHELLE RIZO DO [facility] Start: 05-26-2021 End: 05-26-2021 Emergency department patient visit No Primary Care Physician [facility]Emergency Department Start: 05-09-2021 End: 05-09-2021 Emergency department patient visit No Primary Care Physician [facility]Emergency Department Start: 04-28-2021 End: 04-29-2021 Emergency department patient visit DR MU SERVIN MD [facility] Start: 03-17-2021 End: 03-18-2021 Emergency department patient visit DR JG ASHRAF DO [facility] Start: 03-12-2021 End: 03-12-2021 Emergency department patient visit MICHELLE RIZO DO [facility] Procedures Date Procedure Procedure Detail Performing Clinician Start: 08-27-2024 Computed tomography of abdomen and pelvis with intravenous contrast EILEEN MAST MEDICATION ASSISTANT Work Phone: Start: 08-27-2024 Blood count smear mcrscp w/mnl difrntl wbc count EILEEN MAST MEDICATION ASSISTANT Work Phone: Start: 08-27-2024 Mean corpuscular hemoglobin concentration determination EILEEN MAST MEDICATION ASSISTANT Work Phone: Start: 08-27-2024 Nucleated red blood cell count procedure EILEEN MAST MEDICATION ASSISTANT Work Phone: Start: 08-27-2024 Platelet mean volume determination KRIST A MAST MEDICATION ASSISTANT Work Phone: Start: 08-27-2024 Estimated creatinine clearance EILEEN TABARES ST MEDICATION ASSISTANT Work Phone: Start: 08-27-2024 Triacylglycerol lipase measurement KRIST A MAST MEDICATION ASSISTANT Work Phone: Start: 08-27-2024 Measurement of occult blood in stool specimen using immunoassay EILEEN MAST MEDICATION ASSISTANT Work Phone: Start: 07-14-2024 End: 07-14-2024 Assay of lactate EILEEN MAST MEDICATION ASSISTANT Work Phone: Start: 07-14-2024 Urine microscopy: red cells EILEEN MAST MEDICATION ASSISTANT Work Phone: Start: 07-14-2024 Urnls dip stick/tablet reagent auto microscopy EILEEN MAST MEDICATION ASSISTANT Work Phone: Start: 07-14-2024 Computed tomography of abdomen and pelvis with intravenous contrast EILEEN MAST MEDICATION ASSISTANT Work Phone: Start: 07-14-2024 Estimated creatinine clearance EILEEN LEACH MEDICATION ASSISTANT Work Phone: Start: 07-14-2024 Mean corpuscular hemoglobin concentration determination EILEEN MAST MEDICATION ASSISTANT Work Phone: Start: 07-14-2024 Nucleated red blood cell count procedure EILEEN MAST MEDICATION ASSISTANT Work Phone: Start: 07-14-2024 Platelet mean volume determination KRIST A MAST MEDICATION ASSISTANT Work Phone: Start: 07-14-2024 Triacylglycerol lipase measurement KRIST A MAST MEDICATION ASSISTANT Work Phone: Start: 07-02-2024 Assay of lactate EILEEN MAST MEDICATION ASSISTANT Work Phone: Start: 07-02-2024 Computed tomography of abdomen and pelvis with intravenous contrast EILEEN MAST MEDICATION ASSISTANT Work Phone: Start: 07-02-2024 Plain X-ray abdomen EILEEN MAST MEDICATION ASSISTANT Work Phone: Start: 07-02-2024 Blood count smear mcrscp w/mnl difrntl wbc count EILEEN MAST MEDICATION ASSISTANT Work Phone: Start: 07-02-2024 Estimated creatinine clearance EILEEN TABARES ST MEDICATION ASSISTANT Work Phone: Start: 07-02-2024 Mean corpuscular hemoglobin concentration determination EILEEN MAST MEDICATION ASSISTANT Work Phone: Start: 07-02-2024 Nucleated red blood cell count procedure EILEEN MAST MEDICATION ASSISTANT Work Phone: Start: 07-02-2024 Platelet mean volume determination KRIST A MAST MEDICATION ASSISTANT Work Phone: Start: 07-02-2024 Triacylglycerol lipase measurement KRIST A MAST MEDICATION ASSISTANT Work Phone: Start: 06-24-2024 Plain X-ray abdomen Dr. Abran Simeon DO Work Phone: Start: 06-24-2024 Blood count smear mcrscp w/mnl difrntl wbc count EILEEN MAST MEDICATION ASSISTANT Work Phone: Start: 06-24-2024 Estimated creatinine clearance EILEEN LEACH MEDICATION ASSISTANT Work Phone: Start: 06-24-2024 Mean corpuscular hemoglobin concentration determination EILEEN MAST MEDICATION ASSISTANT Work Phone: Start: 06-24-2024 Nucleated red blood cell count procedure EILEEN MAST MEDICATION ASSISTANT Work Phone: Start: 06-24-2024 Platelet mean volume determination KRIST A MAST MEDICATION ASSISTANT Work Phone: Start: 06-24-2024 Triacylglycerol lipase measurement KRIST A MAST MEDICATION ASSISTANT Work Phone: Start: 05-29-2024 X-ray of chest, PA and lateral views Dr. Abran Simeon DO Work Phone: Start: 05-29-2024 Computed tomography of abdomen and pelvis with intravenous contrast Dr. Abran Simeon DO Work Phone: Start: 05-29-2024 Blood count smear mcrscp w/mnl difrntl wbc count EILEEN MAST MEDICATION ASSISTANT Work Phone: Start: 05-29-2024 Mean corpuscular hemoglobin concentration determination EILEEN MAST MEDICATION ASSISTANT Work Phone: Start: 05-29-2024 Nucleated red blood cell count procedure EILEEN MAST MEDICATION ASSISTANT Work Phone: Start: 05-29-2024 Platelet mean volume determination KRIST A MAST MEDICATION ASSISTANT Work Phone: Start: 05-29-2024 Triacylglycerol lipase measurement KRIST A MAST MEDICATION ASSISTANT Work Phone: Start: 05-08-2024 Urine microscopy: red cells EILEEN MAST MEDICATION ASSISTANT Work Phone: Start: 05-08-2024 Urnls dip stick/tablet reagent auto microscopy EILEEN MAST MEDICATION ASSISTANT Work Phone: Start: 05-08-2024 Albumin/Globulin ratio EILEEN MAST MEDICATION ASSISTANT Work Phone: Start: 05-08-2024 Anion gap measurement EILEEN MAST MEDICATION ASSISTANT Work Phone: Start: 05-08-2024 Blood count smear mcrscp w/mnl difrntl wbc count EILEEN MAST MEDICATION ASSISTANT Work Phone: Start: 05-08-2024 BUN/Creatinine ratio EILEEN MAST MEDICATION ASSISTANT Work Phone: Start: 05-08-2024 Estimated creatinine clearance EILEEN MA ST MEDICATION ASSISTANT Work Phone: Start: 05-08-2024 Mean corpuscular hemoglobin concentration determination EILEEN MAST MEDICATION ASSISTANT Work Phone: Start: 05-08-2024 Measurement of renal function EILEEN MAS T MEDICATION ASSISTANT Work Phone: Start: 05-08-2024 Nucleated red blood cell count procedure EILEEN MAST MEDICATION ASSISTANT Work Phone: Start: 05-08-2024 Platelet mean volume determination ANNIE COONEY MEDICATION ASSISTANT Work Phone: Start: 05-08-2024 Triacylglycerol lipase measurement ANNIE COONEY MEDICATION ASSISTANT Work Phone: Start: 05-08-2024 Computed tomography of abdomen and pelvis with intravenous contrast Dr. Abran Simeon DO Work Phone: Start: 05-03-[address] Abran Simeon DO Work Phone: Start: 05-03-2024 Albumin/Globulin ratio EILEEN COONEY MEDICATION ASSISTANT Work Phone: Start: 05-03-2024 Anion gap measurement EILEEN COONEY MEDICATION ASSISTANT Work Phone: Start: 05-03-2024 Blood count smear mcrscp w/mnl difrntl wbc count EILEEN COONEY MEDICATION ASSISTANT Work Phone: Start: 05-03-2024 BUN/Creatinine ratio EILEEN COONEY MEDICATION ASSISTANT Work Phone: Start: 05-03-2024 Estimated creatinine clearance EILEEN TABARES ST MEDICATION ASSISTANT Work Phone: Start: 05-03-2024 Mean corpuscular hemoglobin concentration determination EILEEN COONEY MEDICATION ASSISTANT Work Phone: Start: 05-03-2024 Measurement of renal function EILEEN LIM T MEDICATION ASSISTANT Work Phone: Start: 05-03-2024 Nucleated red blood cell count procedure EILEEN COONEY MEDICATION ASSISTANT Work Phone: Start: 05-03-2024 Platelet mean volume determination ANNIE COONEY MEDICATION ASSISTANT Work Phone: Start: 05-03-2024 Urine microscopy: red cells EILEEN MAST MEDICATION ASSISTANT Work Phone: Start: 05-03-2024 Urnls dip stick/tablet reagent auto microscopy EILEEN COONEY MEDICATION ASSISTANT Work Phone: Start: 05-02-2024 Assay of lactate EILEEN COONEY MEDICATION ASSISTANT Work Phone: Start: 05-02-2024 Computed tomography of abdomen and pelvis with intravenous contrast Dr. Abran Simeon DO Work Phone: Start: 05-02-2024 Calculation of international normalized ratio EILEEN COONEY MEDICATION ASSISTANT Work Phone: Start: 05-02-2024 Triacylglycerol lipase measurement ANNIE COONEY MEDICATION ASSISTANT Work Phone: Start: 05-02-2024 Measurement of occult blood in stool specimen using immunoassay Dr. Abran Simeon DO Work Phone: Start: 04-28-2024 Albumin/Globulin ratio EILEEN MAST MEDICATION ASSISTANT Work Phone: Start: 04-28-2024 Anion gap measurement EILEEN COONEY MEDICATION ASSISTANT Work Phone: Start: 04-28-2024 Blood count smear mcrscp w/mnl difrntl wbc count EILEEN MAST MEDICATION ASSISTANT Work Phone: Start: 04-28-2024 BUN/Creatinine ratio EILEEN MAST MEDICATION ASSISTANT Work Phone: Start: 04-28-2024 Estimated creatinine clearance EILEEN TABARES ST MEDICATION ASSISTANT Work Phone: Start: 04-28-2024 Mean corpuscular hemoglobin concentration determination EILEEN COONEY MEDICATION ASSISTANT Work Phone: Start: 04-28-2024 Measurement of renal function EILEEN LIM T MEDICATION ASSISTANT Work Phone: Start: 04-28-2024 Nucleated red blood cell count procedure EILEEN COONEY MEDICATION ASSISTANT Work Phone: Start: 04-28-2024 Platelet mean volume determination ANNIE COONEY MEDICATION ASSISTANT Work Phone: Start: 04-28-2024 Computed tomography of abdomen and pelvis with intravenous contrast Dr. Abran Simeon DO Work Phone: Start: 04-28-2024 Urine microscopy: red cells EILEEN COONEY MEDICATION ASSISTANT Work Phone: Start: 04-28-2024 Urnls dip stick/tablet reagent auto microscopy EILEEN COONEY MEDICATION ASSISTANT Work Phone: Start: 04-21-2024 Colonoscopy flx dx w/collj spec when pfrmd Asia Salgado HADOOP JAVA DEVELOPER.TELEVISION CABINET FINISHER Work Phone: Start: 04-21-2024 Colonoscopy Guerline Andersen MD Work Phone: Start: 03-23-2024 [facility] joint r-t w/image documentation Otis Altamirano MD Work Phone: Start: 03-02-2024 Plain x-ray of elbow Dr. Abran Simeon DO Work Phone: Start: 12-08-2023 Colonoscopy flx dx w/collj spec when pfrmd Asia Salgado HADOOP JAVA DEVELOPER.TELEVISION CABINET FINISHER Work Phone: Start: 12-08-2023 Esophagogastroduodenoscopy transoral diagnostic Asia Salgado HADOOP JAVA DEVELOPER.TELEVISION CABINET FINISHER Work Phone: Start: 12-08-2023 Colonoscopy Elinor Cunha MD Work Phone: Start: 06-11-2023 Radex ribs uni w/posteroant ch minimum 3 views Vic Samano DO Work Phone: Start: 11-26-2022 Level iv surg pathology gross&microscopic exam Guerline Andersen MD Work Phone: Start: 11-26-2022 Esophagogastroduodenoscopy transoral diagnostic Guerline Andersen MD Work Phone: Start: 11-26-2022 Colonoscopy flx dx w/collj spec when pfrmd Guerline Andersen MD Work Phone: Start: 11-26-2022 Colonoscopy Guerline Andersen MD Work Phone: Start: 11-20-2022 CT of abdomen and pelvis without contrast Start: 09-15-2022 Computed tomography of abdomen and pelvis with contrast Start: 07-10-2022 Radiography of thoracic spine Start: 07-10-2022 X-ray of lumbar spine, two or three views Start: 03-24-2022 Tendon structure (body structure) SHUN VENTURA HADOOP JAVA 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 Comment on above: left elbow Start: 12-06-2021 Mri any jt upper extremity w/o contrast matrl Deandra Ochoa DO Work Phone: Start: 12-04-2021 Plain x-ray of hand No Primary Care Physician Start: 12-04-2021 X-ray of radius and ulna No Primary Care Physician Start: 11-26-2021 CT of upper limb without contrast No [facility] Care Physician Start: 11-21-2021 Radex elbow complete minimum 3 views Deandra Stewartmary DO Work Phone: Start: 10-28-2021 Plain x-ray of elbow No Primary Care Physician Start: 08-25-2021 Measurement of occult blood in stool specimen using immunoassay No Primary Care Physician Start: 08-25-2021 MRI of brain without contrast No Primary Care Physician Start: 08-11-2021 Radiologic examination of knee No Primar y Care Physician Start: 08-11-2021 X-ray of lumbar spine, two or three views No Primary Care Physician Start: 05-09-2021 Plain X-ray of shoulder No Primary Care Physician Start: 04-03-2021 Colonoscopy Deandra Stewartclarkenorma DO Work Phone: Start: 01-09-2021 Adult depression screening assessment Deandra Stewartmary DO Work Phone: Start: 11-06-2017 Lipid 1996 panel - Serum or Plasma Analia haroldo Andersen MD Work Phone: Start: 09-21-2017 Total nephrectomy MICHELLE JOHANNAKATHLEEN DO Comment on above: R kidney Start: 04-24-2017 Excision of colon and rectum MICHELLE LINK DO Start: 03-24-2005 Septoplasty/submucous resecj w/wo cartilage grf MICHELLE DARRIUS DO Start: 03-24-2004 History of adenoidectomy MICHELLE SAGASTUMEEL D DO Start: 03-24-2004 History of tonsillectomy MICHELLE SAGASTUMEEL D DO Start: 03-24-2002 Appendectomy MICHELLE RIZO DO Cholecystectomy MICHELLE POLANCOLD DO Measurement of occul t blood in stool specimen using immunoassay No Primary Care Physician SARS-CoV-2 & FLU Antigen (Rapid) Streptococcus pyogen es antigen assay Tendon structure (body structure) ESTRADA BEGUM HADOOP JAVA 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 Comment on above: left elbow Plan of Treatment Date Care Activity Detail Author Start: 04-21-2034 Screening for malignant neoplasm of colon [facility] Start: 12-07-2033 Screening for malignant neoplasm of colon [facility] Start: 11-26-2032 Colonoscopy Colonoscopy [facility] Start: 11-26-2032 Colorectal Cancer Screening Colorectal Cancer Screening [facility] Start: 11-26-2032 Screening for malignant neoplasm of colon [facility] Start: 03-23-2029 Urine microalbumin profile DTaP,Tdap,Td Vaccine (3 - Td or Tdap) [facility] Start: 04-21-2027 Screening for malignant neoplasm of colon [facility] Start: 10-04-2024 End: 10-04-2024 Patient encounter procedure 10/04/2024 3:45 PM EDT Appointment [facility] Endoscopy [address] [place], [place] [id number] [place] [address] Endoscopy Start: 09-20-2024 End: 09-20-2024 Anesthesia consultation 09/20/2024 2:00 PM EDT PAT Pre Anesthesia [address] [place] [address] 10/04 [facility]IRTUAL [phone] Pre Anesthesia Comment on above: 10/04 V[facility]UAL [phone] Start: 08-27-2024 [facility] Start: 08-07-2024 [facility] Start: 07-14-2024 [facility] Start: 07-02-2024 Patient discharge [facility] Start: 07-02-2024 Admission procedure [facility] Start: 07-02-2024 Care planning and problem solving actions [facility] Start: 07-02-2024 Application of intermittent pneumatic compression device [facility] Start: 07-02-2024 Following clinical pathway protocol [facility] Start: 07-02-2024 Assessment of risk of venous thromboembolism [facility] Start: 07-02-2024 Incentive spirometry [facility] Start: 07-02-2024 Insertion of catheter into peripheral vein [facility] Start: 07-02-2024 Measuring intake and output [facility] Start: 07-02-2024 Oxygen therapy [facility] Start: 07-02-2024 Providing care according to standard [facility] Start: 07-02-2024 Provision of activity privileges [facility] Start: 07-02-2024 Referral to service [facility] Start: 07-02-2024 [facility] Start: 07-02-2024 Hospital admission, emergency, from emergency room, medical nature [facility] Start: 07-02-2024 Verification routine [facility] Start: 07-02-2024 Admission procedure [facility] Start: 06-24-2024 End: 06-25-2024 [facility] Start: 06-18-2024 End: 06-18-2024 Follow-up encounter 06/18/2024 1:30 PM EDT [address] [address] Deandra Ochoa DO [facility] [place], [place] [address] EMG Follow up Orthopaedics Comment on above: EMG Follow up Start: 06-04-2024 End: 06-04-2024 ambulatory 06/04/2024 12:30 PM EDT Procedure Neurology [address] [place] [address] r L UE (ULNAR) #315 Neurology Comment on above: r L UE (ULNAR) #315 Start: 05-30-2024 End: 05-30-2024 [facility] Start: 05-30-2024 Incentive spirometry [facility] Start: 05-28-2024 End: 05-28-2024 Follow-up encounter 05/28/2024 1:30 PM EST [address] [address] Deandra Ochoa DO [facility] [place], [place] [id number] EMG Follow up Orthopaedics Comment on above: EMG Follow up Start: 05-21-2024 End: 05-21-2024 ambulatory 05/21/2024 2:15 PM EST Procedure Neurology [address] [place] [address] 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] Neurology Comment on above: 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] Start: 05-08-2024 [facility] Start: 05-03-2024 Patient discharge [facility] Start: 05-03-2024 Egd transoral biopsy single/multiple [facility] Start: 05-03-2024 Application of intermittent pneumatic compression device [facility] Start: 05-03-2024 Following clinical pathway protocol [facility] Start: 05-03-2024 Assessment of risk of venous thromboembolism [facility] Start: 05-03-2024 Inhalation therapy procedure [facility] Start: 05-03-2024 Insertion of catheter into peripheral vein [facility] Start: 05-03-2024 Introduction of urinary catheter [facility] Start: 05-03-2024 Measuring intake and output [facility] Start: 05-03-2024 Oxygen therapy [facility] Start: 05-03-2024 Providing care according to standard [facility] Start: 05-03-2024 Provision of activity privileges [facility] Start: 05-03-2024 Referral to gastroenterology service [facility] Start: 05-03-2024 Referral to service [facility] Start: 05-03-2024 [facility] Start: 05-03-2024 Admission procedure [facility] Start: 05-03-2024 Patient referral to dietitian [facility] Start: 04-28-2024 [facility] Start: 04-21-2024 End: 04-21-2024 Patient encounter procedure Ambulatory Surgery Start: 04-07-2024 End: 04-07-2024 Patient encounter procedure 04/07/2024 7:20 PM EST Appointment Radiology [address] [place] [address] 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] Radiology Comment on above: 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] Start: 04-07-2024 End: 04-07-2024 Patient encounter procedure 04/07/2024 11:15 AM EST Office Visit Orthopaedics [address] [address] Deandra Ochoa DO [address] [place] [address] left arm FU Orthopaedics Comment on above: left arm FU Start: 03-02-2024 [facility] Start: 01-07-2024 End: 01-07-2024 Patient encounter procedure 01/07/2024 11:00 AM EDT Appointment Ambulatory Surgery [address] [place] [address] Guerline Andersen MD [address] [address] Ambulatory Surgery Start: 12-17-2023 End: 12-17-2023 Patient encounter procedure 12/17/2023 2:00 PM EDT Office Visit General Surgery [address] [place] [address] Asia Salgado APRN.TELEVISION CABINET FINISHER [address] [place] [address] Review EGD bx's and reschedule colonoscopy General Surgery Comment on above: Review EGD bx's and reschedule colonosco py Start: 12-05-2023 End: 12-05-2023 Patient encounter procedure 12/05/2023 11:00 AM EDT Office Visit General Surgery [address] [place] [address] Guerline Andersen MD [address] [address] f/u stomach issues General Surgery Comment on above: f/u stomach issues Start: 12-03-2023 End: 12-03-2023 Patient encounter procedure Radiology Comment on above: forearm arm follow up Start: 11-27-2023 Colonoscopy COLONOSCOPY [facility] Start: 11-27-2023 COLORECTAL CANCER SCREENING COLORECTAL CANCER SCREENING [facility] Start: 11-23-2023 Covid-19 Vaccine ( season) Covid-19 Vaccine () [facility] Start: 11-23-2023 Covid-19 Vaccine ( season) Covid-19 Vaccine ( season) [facility] Start: 11-23-2023 Influenza vaccination [facility] Start: 06-22-2023 [facility] Start: 06-22-2023 Plain chest X-ray Chest 1 View [facility] Start: 06-22-2023 XR Chest Single view [facility] Start: 03-24-2023 Behavioral Health Screening Behavioral Health Screening [facility] Start: 03-24-2023 Depression Assessment Depression Assessment [facility] Start: 11-22-2022 Covid-19 Vaccine () Covid-19 Vaccine () [facility] Start: 11-22-2022 Influenza vaccination [facility] Start: 11-06-2022 Lipid 1996 panel - Serum or Plasma Lipid Screening [facility] Start: 11-06-2022 Lipid panel Lipid Screening [facility] Start: 11-06-2022 LIPID SCREEN LIPID SCREEN [facility] Start: 08-18-2022 DIABETES SCREEN DIABETES SCREEN [facility] Start: 08-18-2022 Diabetes Screening Diabetes Screening [facility] Start: 06-14-2022 [facility] Start: 2022 COLOGUARD (FIT-DNA) COLOGUARD (FIT-DNA) [facility] Start: [address] COLONOGRAPHY [facility] Start: 2022 FECAL OCCULT BLOOD FECAL OCCULT BLOOD [facility] Start: 2022 Screening for malignant neoplasm of colon [facility] Start: 2022 SIGMOIDOSCOPY SIGMOIDOSCOPY [facility] Start: 04-03-2022 Colonoscopy COLONOSCOPY [facility] Start: 04-03-2022 COLORECTAL CANCER SCREENING COLORECTAL CANCER SCREENING [facility] Start: 03-24-2022 DEPRESSION ASSESSMENT DEPRESSION ASSESSMENT [facility] Start: 01-09-2022 Adult depression screening assessment DEPRESSION SCREENING [facility] Start: 11-22-2021 Influenza vaccination INFLUENZA (#1) [facility] Start: 10-28-2021 Plain x-ray of elbow Elbow min 3 Views [facility] Work Phone: Start: 10-28-2021 XR Elbow GE 3 Views [facility] Work Phone: Start: 10-27-2021 Simple repair scalp/neck/ax/genit/trunk 2.5cm/< RPR S/N/AX/GEN/TRNK 2.5CM/< [facility] Work Phone: Start: 08-25-2021 Patient discharge [facility] Work Phone: Start: 08-25-2021 Following clinical pathway protocol [facility] Work Phone: Start: 08-25-2021 Application of intermittent pneumatic compression device [facility] Work Phone: Start: 08-25-2021 Incentive spirometry [facility] Work Phone: Start: 08-25-2021 Admission procedure [facility] Work Phone: Start: 08-25-2021 Aspiration precautions [facility] Work Phone: Start: 08-25-2021 Assessment of risk of venous thromboembolism [facility] Work Phone: Start: 08-25-2021 Fall prevention [facility] Work Phone: Start: 08-25-2021 Insertion of catheter into peripheral vein [facility] Work Phone: Start: 08-25-2021 Introduction of urinary catheter [facility] Work Phone: Start: 08-25-2021 Measuring intake and output [facility] Work Phone: Start: 08-25-2021 Providing care according to standard [facility] Work Phone: Start: 08-25-2021 Cardiac monitoring [facility] Work Phone: Start: 08-25-2021 Catheterization of vein [facility] Work Phone: Start: 08-25-2021 Continuous pulse oximetry [facility] Work Phone: Start: 08-25-2021 Elevation of head of bed [facility] Work Phone: Start: 08-25-2021 Exercises [facility] Work Phone: Start: 08-25-2021 Implementation of planned interventions [facility] Work Phone: Start: 08-25-2021 Notification of physician [facility] Work Phone: Start: 08-25-2021 Oxygen therapy [facility] Work Phone: Start: 08-25-2021 Patient referral to dietitian [facility] Work Phone: Start: 08-25-2021 Referral to occupational therapist [facility] Work Phone: Start: 08-25-2021 Referral to service [facility] Work Phone: Start: 08-25-2021 Speech therapy assessment [facility] Work Phone: Start: 08-25-2021 Tobacco use cessation education [facility] Work Phone: Start: 08-25-2021 End: 08-25-2021 [facility] Work Phone: Start: 07-18-2021 [facility] Work Phone: Start: 03-24-2021 DEPRESSION ASSESSMENT DEPRESSION ASSESSMENT [facility] Start: 02-14-2021 Urine microalbumin profile DTAP,TDAP,TD (2 - Tdap) [facility] Start: 1996 Hepatitis B Vaccine (1 of 3 - 19+ 3-dose series) Hepatitis B Vaccine (1 of 3 - 19+ 3-dose series) [facility] Start: 1995 Anxiety Screening Anxiety Screening [facility] Start: 1995 Depression Screening Depression Screening [facility] Start: 1995 HEPATITIS C SCREENING HEPATITIS C SCREENING [facility] Start: 1995 Hepatitis C screening Hepatitis C Screening [facility] Start: 1995 HIV SCREENING HIV SCREENING [facility] Start: 1995 HIV screening HIV Screening [facility] Start: 1977 COVID-19 VACCINE (#1) COVID-19 VACCINE (#1) [facility] Start: 1977 HEPATITIS B (1 of 3 - 3-dose series) HEPATITIS B (1 of 3 - 3-dose series) [facility] Start: 1977 Hepatitis B Vaccine (1 of 3 - 3-dose series) Hepatitis B Vaccine (1 of 3 - 3-dose series) [facility] End: 11-23-2023 COLONOSCOPY DIAGNOSTIC COLONOSCOPY DIAGNOSTIC Endoscopy Routine Constipation, unspecified constipation type Abdominal pain, unspecified abdominal location 1 Occurrences starting 11/22/2022 until 11/23/2023 [facility] Work Phone: Comment on above: 1 Occurrences starting 11/22/2022 until 11/23/2023 End: 11-23-2023 EGD DIAGNOSTIC EGD DIAGNOSTIC Endoscopy Routine Constipation, unspecified constipation type Abdominal pain, unspecified abdominal location 1 Occurrences starting 11/22/2022 until 11/23/2023 [facility] Work Phone: Comment on above: 1 Occurrences starting 11/22/2022 until 11/23/2023 End: 12-04-2024 EGD DIAGNOSTIC EGD DIAGNOSTIC Endoscopy Routine Chronic RUQ pain Epigastric pain Gastroesophageal reflux disease without esophagitis 1 Occurrences starting 12/05/2023 until 12/04/2024 [facility] Comment on above: 1 Occurrences starting 12/05/2023 until 12/04/2024 End: 04-09-2025 EMG(NEURO/NI) EMG(NEURO/NI) EMG Routine Lesion of left ulnar nerve 1 Occurrences starting 04/09/2024 until 04/09/2025 [facility] Work Phone: Comment on above: 1 Occurrences starting 04/09/2024 until 04/09/2025 End: 12-04-2024 Flexible sigmoidoscopy study COLONOSCOPY DIAGNOSTIC Endoscopy Routine Chronic RLQ pain BRBPR (bright red blood per rectum) 1 Occurrences starting 12/05/2023 until 12/04/2024 [facility] Work Phone: Comment on above: 1 Occurrences starting 12/05/2023 until 12/04/2024 End: 03-03-2025 Flexible sigmoidoscopy study COLONOSCOPY DIAGNOSTIC Endoscopy Routine Chronic RLQ pain 1 Occurrences starting 03/03/2024 until 03/03/2025 [facility] Work Phone: Comment on above: 1 Occurrences starting 03/03/2024 until 03/03/2025 End: 07-20-2025 Flexible sigmoidoscopy study COLONOSCOPY DIAGNOSTIC Endoscopy Routine Diverticulitis RLQ discomfort 1 Occurrences starting 07/20/2024 until 07/20/2025 [facility] Work Phone: Comment on above: 1 Occurrences starting 07/20/2024 until 07/20/2025 End: 04-18-2025 MR Elbow - left WO contrast MRI ELBOW WO IVCON LEFT Radiology Routine Lesion of left ulnar nerve Elbow pain, chronic, left 1 Occurrences starting 03/19/2024 until 04/18/2025 [facility] Comment on above: 1 Occurrences starting 03/19/2024 until 04/18/2025 MR Elbow - left WO contrast MRI ELBOW WO IVCON LEFT Radiology Routine Lesion of left ulnar nerve Elbow pain, chronic, left 04/07/2024 7:01 PM EST [facility] Work Phone: End: 12-21-2022 Mri any jt upper extremity w/o contrast matrl MRI ELBOW WO IVCON LT Radiology Routine Strain of left biceps, initial encounter Medial epicondylitis of left elbow Contusion of bone 1 Occurrences starting 11/21/2021 until 12/21/2022 [facility] Work Phone: Comment on above: 1 Occurrences starting 11/21/2021 until 12/21/2022 NEUROMUSCULAR ULTRASOUND/NEUROLOGY [facility] Work Phone: Comment on above: Ordered: 03/19/2024 Patient Education [facility] Work Phone: Patient referral [facility] Work Phone: SURGICAL PATHOLOGY [facility] Work Phone: Comment on above: Release Upon Ordering for 1 Occurrences starting 12/08/2023 [facility] Immunizations Immunization Date Immunization Notes Care Provider Fa cilijolanta 03-23-2019 tetanus toxoid, reduced diphtheria toxoid, and acellular pertussis vaccine, adsorbed; Translations: [Boostrix (Tdap)] MICHELLE RIZO DO [facility] 04-01-2014 influenza virus vaccine, unspecified formulation 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 1.13.159.2. [id number] 2023 Unknown [id number] 2023 Unknown [id number] 2022 Medicare (Managed Care) [facility] DUAL COMPLETE HMO POS SNP [id number] 2021 Unknown [id number] 2021 Medicare [id number] 1.13.159.2. [id number] 2019 Medicaid [id number]. 1.13.159.2. [id number] 2019 Medicaid [id number] 2004 Medicare [id number] 1977 Unknown [id number] 05.09.830.1.842437.3.579.2 1977 Unknown [id number] 840.1.916501.3.579.2 1977 Unknown [id number] 05.09.830.1.559001.3.579.2 1977 Unknown [id number] 05.09.830.1.525880.3.579.2 1977 Unknown [id number] 05.09.830.1.367044.3.579.2 1977 Unknown [id number] 840.1.707690.3.579.2 1977 Unknown [id number] .840.1.964251.3.579.2 1977 Unknown [id number] 840.1.606039.3.579.2 1977 Unknown [id number] 840.1.434743.3.579.2 1977 Unknown [id number] 840.1.502406.3.579.2. 1977 Unknown [id number] 2.0.1.784753.3.579.2. 1977 Unknown [id number] 2.840.1.812912.3.579.2. 1977 Unknown [id number] 2.0.1.187702.3.579.2. 1977 Unknown [id number] 2.0.1.191145.3.579.2. 1977 Unknown [id number] 2.0.1.276357.3.579.2. 1977 Unknown [id number] 2..1.215737.3.579.2. 1977 Unknown [id number] 2..1.801589.3.579.2. 1977 Unknown [id number] 2.0.1.045636.3.579.2. 1977 Unknown [id number] 2.0.1.755037.3.579.2. Private Health Insurance [id number] Private Health Insurance [id number] Unknown [id number] Unknown [facility] MCRDUAL COMP HMO [id number] Unknown [id number] 20.1.208869.3.579.2. 462 Unknown [id number] 2.0.1.441197.3.579.2. 462 Unknown [id number] 2.16.840.1.719631.3.579.2. 462 Unknown [id number] 2.16.840.1.944580.3.579.2. 462 Unknown [id number] 2.16.840.1.754186.3.579.2. 462 Unknown [id number] 2.16.840.1.186516.3.579.2. 462 Unknown [id number] 2.16.840.1.598098.3.579.2. 462 Unknown [id number] 2.16.840.1.951087.3.579.2. 462 Unknown [id number] 2.16.840.1.903714.3.579.2. 462 Unknown [id number] 2.16.840.1.058166.3.579.2. 462 Unknown [id number] 2.16.840.1.516541.3.579.2. 462 Unknown [id number] 2.16.840.1.477343.3.579.2. 462 Unknown [id number] 2.16.840.1.198166.3.579.2. 462 Unknown [id number] 2.16.840.1.472148.3.579.2. 462 Unknown [id number] 2.16.840.1.121307.3.579.2. 462 Unknown [id number] 2.16.840.1.239710.3.579.2. 462 Unknown [id number] 2.16.840.1.038942.3.579.2. 462 Unknown [id number] 2.16.840.1.972123.3.579.2. 462 Social History Date Type Detail Facility Start: 06-21-2018 End: 12-22-2023 Never smoked tobacco (finding) [facility] Start: 1975 Sex Assigned At Male A [facility] Start: 08-25-2021 End: 06-22-2023 Tobacco smoking status NHIS Unknown if ever smoked [facility] Start: 04-03-2020 None [facility] Start: 04-03-2020 Alone [facility] Start: 08-25-2021 Non-smoker [facility] Start: 11-21-2021 Tobacco use and exposure Smoke less tobacco non-user [facility] Start: 11-21-2021 End: 07-03-2024 Alcohol intake Current non-drinker of alcohol (finding) [facility] Start: 01-09-2021 History SDOH Alcohol Frequency 1 [facility] Start: 01-09-2021 History SDOH Alcohol Std Drinks 98 [facility] Start: 01-09-2021 History SDOH Social Connections Phone 5 [facility] Start: 01-09-2021 History SDOH Social Connections Membership 2 [facility] Start: 01-09-2021 History SDOH Social Connections Living 6 [facility] Start: 01-09-2021 History SDOH Stress 3 [facility] Start: 01-09-2021 Education 14 [facility] Start: 1975 Sex Assigned At Not on file [facility] Start: 11-11-2021 End: 01-03-2022 Exposure to SARS-CoV-2 (event) Not sure [facility] Start: 04-08-2022 Tobacco smoking status Light t obacco smoker (finding) [facility] Start: 01-09-2021 End: 08-30-2022 History of Social function [facility] Start: 01-09-2021 End: 08-30-2022 Social connection and isolation panel [facility] Do you belong to any clubs or organizations such as adventist groups, unions, fraternal or athletic groups, or school groups? No [facility] Are you now , , , , never or living with a partner? [facility] How often to you hav e a drink containing alcohol? Never [facility] How many standard dr inks containing alcohol do you have on a typical day? Patient refused [facility] Do you feel stress - tense, restless, nervous, or anxious, or unable to sleep at night because your mind is troubled all the time - these days [OSQ] To some extent [facility] (I/We) worried roberto er (my/our) food would run out before (I/we) got money to buy more. Never true [facility] Sexual Orientation Skye perera [facility] Start: 05-19-2019 End: 07-14-2024 Sex Male (finding) [facility] Goals Date Patient Goal Desired Activity /State Functional Status Date Assessment Result Facility 07-02-2024 Functional status Up ad shell [facility] Work Phone: 05-03-2024 Functional status Ambulates [facility] Work Phone: 05-02-2024 Functional Status ID band on, Allergy Band on, Call device within reach, Bed in low position, Wheels locked, Bedside Cart Locked, Visitor at bedside, Safety level maintained [facility] 05-02-2024 Functional Status [facility] 03-11-2024 Functional Status Awake [facility] 02-06-2024 Functional Status Independent [facility] 02-06-2024 Functional Status Standard Safet y ID band on, Allergy Band on, Call device within reach, Bed in low position, Wheels locked, personal items within reach, Bedside Cart Locked, Visitor at bedside [facility] 11-30-2023 Functional Status ID band on, Allergy Band on, Safety level maintained [facility] 10-29-2023 Functional Status Resting [facility] 10-03-2023 Functional Status Independent [facility] 08-25-2023 Functional Status Standard Safet y ID band on, Allergy Band on, Call device within reach, Bed in low position, Wheels locked, Upper/Half-Length side-rails up, Bedside Cart Locked, Safety level maintained [facility] 08-21-2023 Functional Status Nurse Opal rogers q2hrs Performed Other: 7a-2p [facility] 08-21-2023 Functional Status Sequential Com pression Device bilateral knee high applied/on [facility] 08-21-2023 Functional Status Independent Skye [facility] 08-21-2023 Functional Status Multilevel home [facility] 08-21-2023 Functional Status [facility] 08-21-2023 Functional Status Room check performed [facility] 08-21-2023 Functional Status [facility] 08-20-2023 Functional Status None [facility] 06-15-2023 Functional Status Independent [facility] 06-15-2023 Functional Status Ambulation in Fair, Ambulation in Room [facility] 06-08-2023 Functional Status Assistive Device None A [facility] 06-05-2023 Functional [facility]-05[facility]23 Functional Status Standard Safet y ID band on, Allergy Band on, Call device within reach, Bed in low position, Wheels locked, Upper/Half-Length side-rails up, personal items within reach, Bedside Cart Locked, Visitor at bedside [facility] 04-17-2023 Functional Status [facility]-12[facility]23 [facility]-12[facility] Functional Status Standard Safet y ID band on, Allergy Band on, Call device within reach, Bed in low position, personal items within reach, Visitor at bedside, Safety level maintained [facility] 02-16-2023 Functional Status Assistive Device None A [facility] 02-16-2023 Functional Status Ambulation in Fair [facility] 12-18-2022 Functional Status [facility] 09-12-[facility]22 Functional Status [facility] 09-12-2022 Functional Status Ambulating in fair, Ambulating in room, Awake, Bathroom privileges [facility] 08-01-2022 Functional Status Environmental Safety Implemented Adequate room lighting, Bed in low position, Call device within reach, Encourage handrail/safety bar use, Personal items within reach, Wheels locked [facility] 08-01-2022 Functional Status Ambulating in fair, Ambulating in room, Awake [facility] 05-05-2022 Functional Status ID band on, Allergy Band on, Call device within reach, Bed in low position, Wheels locked, Upper/Half-Length side-rails up, Phone within reach, personal items within reach, Bedside Cart Locked [facility] 04-25-2022 Functional Status Standard Safet y ID band on, Call device within reach, Bed in low position, Wheels locked, Bedside Cart Locked, Visitor at bedside, Safety level maintained [facility] 04-25-2022 Functional Status [facility] 04-09-2022 Functional Status Breakfast Percent 50 [facility] 04-09-2022 Functional Status Room check performed [facility] 04-09-2022 Functional Status [facility] 04-09-2022 Functional Status [facility] 04-09-2022 Functional Status [facility] 04-08-2022 Functional Status Reason SCD Rem devi/Off Patient refused [facility] 04-08-2022 Functional Status Dinner Percent 75 [facility] 04-08-2022 Functional Status 50 [facility] 04-08-2022 Functional Status Single level home [facility] 12-31-2021 Functional Status ID band on, Allergy Band on, Call device within reach, Bed in low position, Wheels locked, Upper/Half-Length side-rails up, Visitor at bedside [facility] 12-30-2021 Functional Status Room located n [facility], Door open, Room check performed [facility] 12-29-2021 Functional Status [facility] 12-29-2021 [facility] 12-29-[facility] Functional Status [facility] 12-29-2021 Functional Status heel(s)s elevated [facility] 12-28-2021 Functional Status Room check performed [facility] 11-17-2021 Functional Status Standard Safet y ID band on, Allergy Band on, Call device within reach, Bed in low position, Wheels locked, Upper/Half-Length side-rails up, Phone within reach, Visitor at bedside, Safety level maintained [facility] 08-25-2021 Functional status Activity Abili ty Standby Assist [facility] Work Phone: 08-24-2021 Functional Status Standard Safet y ID band on, Allergy Band on, Call device within reach, Bed in low position, Wheels locked, Upper/Half-Length side-rails up, personal items within reach, Visitor at bedside [facility] 08-08-2021 Functional Status [facility] 06-19-2021 Functional Status [facility] 08-18-2014 Are you deaf, or do you have serious difficulty hearing No 08/18/2014 3:00 PM LALITAT Eileen Ambrocio LPN No [facility] 08-18-2014 Are you blind, or do you have serious difficulty seeing, even when wearing glasses No 08/18/2014 3:00 PM LALITAT Eileen Ambrocio LPN No [facility] 08-18-2014 Do you have serious difficulty walking or climbing stairs No 08/18/2014 3:00 PM Eileen Saleh LPN No [facility] 08-18-2014 Do you have difficul ty dressing or bathing No 08/18/2014 3:00 PM Eileen Saleh LPN No [facility] 08-18-2014 Because of a physica l, mental, or emotional condition, do you have difficulty doing errands alone such as visiting a physician's office or shopping No 08/18/2014 3:00 PM EDT Eileen Ambrocio LPN No [facility] Mental Status Date Assessment Result Facility 08-07-2024 Cognitive function Awake;Alert;A ppropriate;Fol lows Commands [facility] Work Phone: 07-02-2024 Cognitive function Voice/Name [facility] Work Phone: 05-03-2024 Cognitive function Voice/Name [facility] Work Phone: 05-02-2024 Mental Status Oriented x 4 [facility] 03-11-2024 Mental Status Oriented x [facility] 02-06-2024 Mental Status Orientation Oriented x 4 [facility] 02-06-2024 Mental Status [facility] 11-30-2023 Mental Status Oriented x 4 [facility] 10-29-2023 Mental Status Orientation Orie nted x 4, Other: [facility] 10-03-2023 Mental Status Oriented x 4 [facility] 08-25-2023 Mental Status Orientation Oriented x 4 [facility] 08-21-2023 Mental Status Oriented x 4 [facility] 08-20-2023 [facility]-20-2023 Mental Status [facility] 06-15-2023 Mental Status Orientation Oriented x 4 [facility] 06-15-2023 Mental Status [facility] [facility] Mental Status Orientation Oriented x 4 [facility] 06-07-2023 Mental Status [facility] 06-05-2023 Mental Status Orientation Oriented x 4 [facility] 06-05-2023 Mental Status [facility] 04-17-2023 Mental Status Oriented x 4 [facility] 03-12-2023 Mental Status Orientation Oriented x 4 [facility] 03-12-2023 Mental Status [facility] 02-16-2023 Mental Status Orientation Oriented x 4 [facility] 12-18-2022 Mental Status Oriented x 4 [facility] 09-12-2022 Mental Status Orientation Oriented x 4 [facility] 09-12-2022 Mental Status [facility] 08-01-2022 Mental Status Orientation Oriented x 4 [facility] 06-14-2022 Cognitive function Level Of Cons ciousness Awake;Alert;Appropriate;Fol lows Commands [facility] Work Phone: 05-05-2022 Mental Status Oriented x 4 [facility] 04-25-2022 Mental Status Oriented x 4 [facility] 04-25-2022 Mental Status [facility] 04-09-2022 Mental Status Orientation Oriented x 4 [facility] 04-09-2022 Mental Status [facility] 04-08-2022 Mental Status [facility] 04-08-2022 Mental Status Orientation Asse ssment Oriented x 4 [facility] 04-08-2022 Mental Status [facility] 12-31-2021 Mental Status Oriented x 4 [facility] 12-30-2021 Mental Status Oriented x 4 [facility] 12-29-2021 Mental Status [facility] in 12-29-2021 Mental Status [facility] in 12-29-2021 Mental Status [facility] in 12-29-2021 Mental Status [facility] 12-28-2021 Mental Status Oriented x 4 [facility] 11-18-2021 Mental Status Orientation Oriented x 4 [facility] 11-17-2021 Mental Status [facility] 10-28-2021 Cognitive function Level Of Cons ciousness Awake;Alert;Appropriate;Fol lows Commands [facility] Work Phone: 08-25-2021 Cognitive function Voice/Name [facility] Work Phone: 08-24-2021 Mental Status Orientation Oriented x 4 [facility] 08-21-2021 Mental Status Oriented x 4 [facility] 08-08-2021 Mental Status [facility] 06-19-2021 Mental Status [facility] 08-18-2014 Because of a physica l, mental, or emotional condition, do you have serious difficulty concentrating, remembering, or making decisions No 08/18/2014 3:00 PM EDT Eileen Ambrocio LPN No [facility] Clinical Notes 03-12-2021 to 08-27-2024 Note Date & Type Note Facility 08-27-2024 Radiology Diagnostic study note [facility] 08-27-2024 Discharge summary Note Date/Time August 27, 2024 10:27pm [facility] Medical Records Department [address] [place] [address] Emergency Department Summary 08/27/24 MR#: [id number] Acct: [id number] Name: BARRETT LOPEZ Rep #:[id number] : 1975 49 From: Aj Ochoa PCP: Care Physician,No Primary Status :REG ER Location: ED HPI History of Present Illness Chief Complaint: GI Bleed [facility] Medical History Morbid obesity with BMI of 50.0-59.9, adult GERD (gastroesophageal reflux disease) History of diverticulitis Periumbilical hernia Diverticulitis Rheumatoid arthritis History of stroke History of AR (myocardial infarction) Anxiety and depression Morbid obesity Hypertension Diverticulitis large intestine Home Medications ?Medication ?Instructions ?Recorded ?Last Taken ?Type sertraline 25 mg tablet 25 mg PO DAILY 05/02/2412/16 History sucralfate 1 gram tablet 1 g PO TIDAC 30 days #90 tab s 05/03/24 Unknown Rx docusate sodium 100 mg capsule 100 mg PO BID #60 caps 05/30/24 07/13/24 Rx (Colace) omeprazole 40 mg capsule,delayed 40 mg PO BID 07/02/24 07/13/24 History release ondansetron 8 mg disintegrating 8 mg PO Q8H PRN nausea and 07/02/24 07/13/24 Rx tablet vomiting #14 tabs oxycodone 5 mg capsule 5 mg PO Q6H PRN pain (scale score 07/02/24 Unknown Rx 7-10) 3 days #12 caps amoxicillin 875 mg-potassium 1 tab PO BID 7 days #14 t abs 07/14/24 Unknown Rx clavulanate 125 mg tablet Allergy/AdvReac Type Severity Reaction Status Date / Time morphine Allergy Mild Rash Verified 08/27/24 15:52 acetaminophen (From Vicodin) Allergy Rash Verified 08/27/24 15:52 codeine Allergy Anaphylaxis Verified 08/27/24 15:52 hydrocodone bitartrate (From Allergy Rash Verified 08/27/24 15:52 Vicodin) latex Allergy Swelling Verified 08/27/24 15:52 naproxen Allergy Hives Verified 08/27/24 15:52 ondansetron (From Zofran (as AdvReac Nausea Verified 08/27/24 15:52 hydrochloride)) Family History Mother Cancer Father Brain aneurysm Surgical History History of bowel resection Hx of hand surgery Hx of foot surgery Hx of arthroscopy of right knee History of tonsillectomy and adenoidectomy Hx of cholecystectomy Hx of appendectomy Social History household members: spouse Smoking Status: Never smoker alcohol intake: never substance use type: does not use EXAM Physical Exam Const Vital Signs: 08/27/24 15:52 08/27/24 22:00 08/27/24 22:24 Temperature 96.5 F L 97.8 F Temperature Source Temporal Pulse Rate 78 72 70 Respiratory Rate 15 16 19 H Blood Pressure 144/95 H 143/82 H 127/87 H Blood Pressure Mean 111 102 100 Pulse Ox 98 95 96 Oxygen Delivery Method Room Air Room Air [facility] [place] Medical decision making narrative: HISTORY OF PRESENT ILLNESS: Chief complaint: Abdominal pain, hematemesis and hematochezia 49-year-old male history of sigmoid diverticulitis, hypertension, gastroenteritis, hernia presents concern for abdominal pain, bloody vomit and bloody stools. He states he saw Dr. White and was diagnosed with diverticulitis. States he finished course of antibiotics but then developed bleeding. He notes this began yesterday when he felt something rip/tear in the left upper quadrant/left mid abdomen. Denies taking blood thinners. He furtherstated no fevers. No travel. No sick contacts. Notes he does not have a gallbladder REVIEW OF SYSTEMS: Pertinent positives: Abdominal pain, hematochezia, Pertinent negatives: Syncope, chest pain, shortness of breath PHYSICAL EXAM: Nursing triage notes reviewed, Vital signs reviewed Constitutional: please see [facility] HENT: MMM Eyes: Pupils equal round and reactive to light, Extraocular muscles intact Neck: No stridor, no JVD, full neck ROM Lungs: Clear to auscultation, No wheezing or rales. No increased work of breathing, no conversational dyspnea, no accessory muscle use, no nasal flaring. No respiratory distress noted Heart: Regular rate and rhythm, No murmurs, No rubs and No gallops, 2+ distal pulses (radial, femoral, posterior tibial) in all extremities Abdomen: Soft, there is no tenderness, rigidity, rebound or guarding, no obviousperitoneal signs, no palpable pulsatile abdominal masses, no auscultated abdominal bruit : No CVAT Extremities: No edema Neuro: No new focal neurological deficits, cranial nerves II through XII intact,5/5 strength in all present extremities. Intact sensation to light touch in all present extremities, 2+ reflexes bilateral patella tendons. Skin: No rash or lesions noted MEDICAL DECISION MAKING: Chief Complaint: please see [facility] External records reviewed: Reviewed prior imaging studies: Reviewed CT scan from June 2024 which showed the following: IMPRESSION: Minimal residual acute uncomplicated diverticulitis of the mid sigmoid colon, significantly improved from recent prior. Factors affecting care: As per HPI Social determinants of health: none History obtained from others: none Consults: none [facility] Narrative: The patient was initially hemodynamically stable, afebrile and nontoxic-appearing. Exam was significant left upper quadrant TTP. No left lower quad TTP. Difficult to ascertain abdominal exam given patient's body habitus with the BMI 50. I considered the following differential diagnosis: Anemia, GI bleed, diverticulitis, diverticular abscess, diverticular perforation, amongst others I obtained a broad lab and imaging workup to further elucidate etiology of patient's complaints Initially resuscitated patient only normal saline, Zofran for nausea control and4 mg IV morphine Added CT scan of the abdomen pelvis to further assess signs of perforation obstruction or other surgical emergencies. ALL IMAGES (IF OBTAINED) HAVE BEEN PERSONALLY REVIEWED AND INTERPRETED BY MYSELF. CT scan abdomen pelvis shows no evidence of obvious intra-abdominal pathology CBC with leukocytosis suggestive of systemic inflammation, no anemia or thrombocytopenia CMP without evidence of acute kidney injury, significant electrolyte abnormality, anion gap to suggest end organ hypo-perfusion, no evidence of metabolic acidosis with a normal bicarbonate, no evidence of hepatobiliary obstructive pathology. Lipase is wnl indicating no pancreatic inflammation. Hemoccult negative Repeat abdominal exam did not reveal new abnormalities. Given the patient's reassuring labs emergency is appropriate discharge home with close outpatient GIand prior surgical consultations. The patient and/or family, caregivers express understanding. The patient and/orfamily, caregivers agrees with the plan. Shared decision making: I will have a discussion with the patient and or visitors regarding risk/benefits of further testing or admission. They will be made aware of of the risk/benefits inherent in this decision they will be given the opportunity to voice understanding. Total critical care time today provided was at least 0 minutes. This excludes separately billable procedures. Critical care time (if documented) is secondary to the patient having high probability of clinically significant/life threatening deterioration in the patient's condition which required my urgent intervention. Impression: 1. Abdominal pain 2. History of abdominal surgery Dispo: Discharge home This note was generated with Dakim dictation software. It may contain incorrectwords, spelling, and punctuation that were not noted in review of the chart prior to signing. Lab Data Labs: Laboratory Results - last 24 hr 08/27/24 08/27/24 08/27/24 17:08 17:08 18:03 WBC Cancelled 12.2 H Corrected WBC Cancelled RBC Cancelled 5.06 Hgb Cancelled 13.4 Hct Cancelled 40.8 MCV Cancelled 80.6 MCH Cancelled 26.5 L MCHC Cancelled 32.8 RDW Std Deviation Cancelled 39.9 RDW Coeff of Mirlande Cancelled 13.8 Plt Count Cancelled 391 MPV Cancelled 9.0 Immature Gran % (Auto) Cancelled 0.300 Neut % (Auto) Cancelled 54.3 Lymph % (Auto) Cancelled 36.3 [place] % (Auto) Cancelled 6.2 Eos % (Auto) Cancelled 2.4 Baso % (Auto) Cancelled 0.5 Absolute Neuts (auto) Cancelled 6.6 Absolute Lymphs (auto) Cancelled 4.41 Total Counted Cancelled Neutrophils % (Manual) Cancelled Band Neutrophils % Cancelled Lymphocytes % (Manual) Cancelled Monocytes % (Manual) Cancelled Eosinophils % (Manual) Cancelled Basophils % (Manual) Cancelled Metamyelocytes % Cancelled Myelocytes % Cancelled Promyelocytes % Cancelled Blast Cells % Cancelled Plasma Cell % (Manual) Cancelled Other Cells % Cancelled Nucleated RBC % Cancelled 0 Nucleated RBCs/100 WBC Cancelled Differential Comment Cancelled Diff Path Review Cancelled Hypersegmented Neuts Cancelled Atypical Lymphocytes Cancelled Reactive Lymphocytes Cancelled Smudge Cells Cancelled Toxic Granulation Cancelled Toxic Vacuolation Cancelled Dohle Bodies Cancelled Ruby Rods Cancelled Platelet Estimate Cancelled Plt Morphology Comment Cancelled RBC Morphology Cancelled Cancelled Polychromasia Cancelled Hypochromasia Cancelled Basophilic Stippling Cancelled Anisocytosis Cancelled Microcytosis Cancelled Macrocytosis Cancelled Spherocytes Cancelled Sickle Cells Cancelled Target Cells Cancelled Tear Drop Cells Cancelled Ovalocytes Cancelled Stomatocytes Cancelled [place] Bodies Cancelled [place] Cells Cancelled Bite Cells Cancelled Crenated Cell Cancelled Acanthocytes (Spur) Cancelled Rouleaux Cancelled Schistocytes Cancelled Sodium 135 Potassium 4.5 Chloride 103 Carbon Dioxide 20.3 L Anion Gap 13 BUN 11 Creatinine 0.86 Estim Creat Clear Calc 148.13 Est GFR (MDRD) Non-Af 108 BUN/Creatinine Ratio 12.7 Glucose 87 Calcium 9.1 Total Bilirubin 0.26 AST 32 ALT 27 Alkaline Phosphatase 122 Total Protein 7.4 Albumin 3.9 Globulin 3.6 Albumin/Globulin Ratio 1.1 Lipase 19 Radiography Diagnostic Testing: Clinical Impression(s) from Imaging Studies Abdomen/Pelvis CT 08/27/24 20:10 IMPRESSION: No acute process. Reading Location: [facility] Discharge Plan Triage Chief Complaint: GI Bleed ED Provider: Aj Little Dx/Rx/DC Orders Prescriptions: No Action omeprazole 40 mg capsule,delayed release(DR/EC) 40 mg PO BID Patient Comments: PT TAKES AT BEDTIME oxycodone 5 mg capsule 5 mg PO Q6H PRN (Reason: pain (scale score 7-10)) 3 Days Qty: 12 0RF Patient Comments: PT STATED HE IS OUT ondansetron 8 mg tablet,disintegrating 8 mg PO Q8H PRN (Reason: nausea and vomiting) Qty: 14 0RF Rx Instructions: 1st dose 1-2 hr before radiation amoxicillin-pot clavulanate 875-125 mg tablet 1 tab PO BID 7 Days Qty: 14 0RF sertraline 25 mg tablet 25 mg PO DAILY Patient Comments: PT TAKES AT BEDTIME sucralfate 1 gram Tablet 1 g PO TIDAC 30 Days Qty: 90 0RF Patient Comments: PT TAKES AT BEDTIME docusate sodium [Colace] 100 mg capsule 100 mg PO BID Qty: 60 0RF Patient Comments: PT TAKES AT BEDTIME Primary Care Provider: Care Physician,No Primary Referrals: Care Physician,No Primary [Primary Care Provider] - Print Language: Kuwaiti What to do if you have Problems For any increased pain, shortness of breath, bleeding, nausea or vomiting, chestpain, or any unexpected problems, contact your Primary Care Provider. Call [facility] ([phone]) or report to the closest Emergency Room. Call 911 if necessary. 08/27/242226 <Electronically signed by Aj Little DO> Cosigner Signature (if applicable): CC: No Primary Care Physician ~ Signed [facility] Work Phone: [phone] Instructions* Patient Instructions* Asia Salgado APRN.TELEVISION CABINET FINISHER - 07/20/2024 9:16 AM EDT Images from the original note were not included. Miralax/Dulcolax Bowel Prep For this bowel preparation you will need to picker box operator the following medications at any pharmacy. Four (4) Dulcolax tablets (generic name Bisacodyl) 238 Gram (or 8.3 oz.) Bottle of Miralax (Generic name Polyethylene Glycol) A responsible family member or friend MUST be available to drive you home after your procedure. Youare NOT ALLOWED to drive, take a taxi, or leave the [facility] Center ALONE. If you do NOT have a responsible dedicated driver (family member or friend) to take you home, your exam cannot be done with sedation and WILL BE cancelled. Please remove all jewelry if possible. The [facility] or [facility] (depending on where your procedure is scheduled) will call you THE DAY BEFORE YOUR PROCEDURE with your arrival time. The time in My Chart is just an estimate. Please arriveat the time you are told the day before. Medication BLOOD THINNERS - Blood thinner medication may need to be stopped or adjusted before your colonoscopy, such as Coumadin, Plavix, Paradaxa and Eliquis. - Contact prescribing physician regarding holdingany blood thinner medication. If you were seen in the general surgery office, please follow their instructions as to if and when to hold any blood thinners. If you are having this procedure done by the request of any other providers and were NOT seen in our office, please contact your physician's office to see if you need to hold any medication prior to your procedure. INSULIN and/or DIABETIC MEDICATION -Please call the doctor that monitors your glucose levels. Your insulin dosage needs to be adjusted due to the diet restrictions required with this bowl preparation(please bring your diabetic medication with you on the day of your procedure). If you are on any of the listed medications below, please follow the instructions as to when to stop your medications. If you have any questions or concerns regarding your diabetic medication, pleasecontact your ordering providers office. Failure to hold the medications below could lead to the canc ellation of your procedure. Diabetic Medication Day Prior to Surgery Day of Surgery Communication Oral hypoglycemics (except SGLT2 inhibitors) Continue Hold all on DOS Nurse verifies patient did not take oral medications. Blood glucose checked in preoperative area SGLT2 inhibitors Canagliflozin (Invokana) Dapagliflozin (Farxiga) Empaglifozin (Jardiance) Hold 3 days preoperatively Hold Nurse verifies patient has not taken the medication 3 days preoperatively and has held DOS. Blood glucose check on arrival. SGLT2 inhibitor Ertugliflozin (Steglatro) Hold 4 days preoperatively Hold Nurse verifies patient has not taken the medication 4 days preoperatively and has held DOS. Blood glucose check on arrival. Non-insulin injectables (Except GLP-1 agonists) Take normal dose Hold all Nurse verifies patient has held. Blood glucose check on arrival GLP-1 Agonists (Injected) Semaglutide (Ozempic/Wegovy) Lixisenatide (Adlyxin) Tirzepatide (Mounjaro/Zepbound) Dulaglutide (Trulicity) Hold the week prior to surgery Hold Nurse verifies time of last dose and documents. Assess for symptoms of satiety or nausea. If patient took the week prior to surgery or on DOS, contact the anesthesiologist. GLP-1 Agonists (Daily Injected) Exenatide (Bydureon/ Byetta) Liraglutide (Victoza/Saxenda) Insulin glargine / lixisenatide (Soliqua) Continue Hold on DOS GLP-1 Agonists (oral) Semaglutide (Reybelsus) Continue Hold on DOS Nurse verifies time of last dose and documents. Assessfor symptoms of satiety or nausea. If patient took DOS, contact the anesthesiologist. Insulin pump Follow protocol Follow protocol Nurse verifies settings. Blood glucose check on arrival Long- or intermediate-acting insulin (Levemir, Lantus, NPH etc.) Take 75% of normal dose the night before surgery if possible Check fasting AM glucose. If 200 or greater, take half the prescribed dose. If under 200, hold AM dose. Nurse verifies dose and time. Blood glucose check on arrival. If you take GLP-1 agonists such as semaglutide (Ozempic, Wegovy, Rybelsus), dulaglutide (Trulicity), liraglutide (Victoza, Saxenda), exenatide (Byetta, Bydureon), or lixisenatide (Adylyxin), tirzepatide (MOUNJARO). if you take medication once or twice daily, do not take your medication for 1 day prior to your procedure if you take these medications weekly, do not take your medication the week ( hold the prior week's dose) before your procedure If you take aspirin, take it and ALL other medication prescribed by your doctor unless told otherwise by either the physician's office or Pre-Admission testing if having procedure done in a hospital setting (PACC) with a small sip of water only. You may take over the counter medications if you havea headache. TAKE ALL BLOOD PRESSURE MEDICATION THE MORNING OF THE PROCEDURE. Failure to take usual morning blood pressure meds may result in cancellation of the procedure if hypertensive. Hold erectile dysfunction medications for 48 hrs. prior to the procedure. Five (5) days before your colonoscopy Do not take medications that stop Diarrhea - Imodium, Kaopectate, or Pepto Bismol Do NOT take fiber supplements - Metamucil, Citrucel, FiberCon Do NOT take products that contain iron (check vitamin label) Two (2) to three (3) days before your colonoscopy DO NOT EAT HIGH FIBER FOODS No beans, seeds (flax, sunflower, quinoa), nuts, popcorn, multigrain bread salad/vegetables, or fresh and dried fruit. Do not eat red meat 3 days before your procedure. YOU MAY EAT Lean Chicken breast, fish, eggs, and soup YOU MUST BE ON CLEAR LIQUIDS FOR 2 FULL DAYS PRIOR TO PROCEDURE Two (2) Days before your colonoscopy ONLY DRINK CLEAR LIQUIDS for 2 DAYs BEFORE YOUR COLONOSCOPY. DO NOT EAT ANY SOLID FOODS. Drink at least eight (8) ounces of clear liquids every hour after waking up. Clear fluids include: Water, apple juice, white grape juice, broth (beef, chicken or vegetable), coffee and/or tea (NO DAIRY, MILK OR CREAMER) clear carbonated beverages (sprite, 7-up, naima-boaz), Gatorade, or other sport drinks, Dragan-Aid, Jell-O, Gummy Bears and popsicles. NOTHING RED IN COLOR. DO NOT DRINK ALCOHOL the day before or the day of your procedure. DAY 1 (2 days before your colonoscopy) Clear Liquids all day, you may have water, coffee or tea- NO DAIRY, Clear broth (Beef, Chicken or vegetable) Clear carbonated beverages, apple juice, white grape juice , Gatorade, Jell-O, Dragan-Aid, and popsicles. NO DAIRY, TOMATO, OR ORANGE JUICE. NO RED OR PURPLE! DAY 2 - (day before your colonoscopy) SAME DAY 1, Continue clear fluids and then follow the instructions below~ 8:00 AM - May Mix the Miralax prep with 64 oz. of Gatorade or any of the clear fluids listed above and place in fridge. 1:00 PM - Take 2 Dulcolax Tablets with 8oz of water 3:00 PM - Start to drink the Miralax mixture. - Finish by midnight 4:00 PM - Take 2 Dulcolax tablets with 8oz of water. You may continue to drink clear liquids while you are taking your prep and after you finish as longas it is before midnight. Drink lots of fluids so you don't become dehydrated. Nothing to drink after midnight unless instructed otherwise by nursing staff and/or physician. Please remember to take your normal medications the morning of your procedure with a small sip of water especially your blood pressure medications. If you are diabetic, you need to contact your physiciansregarding how to take your diabetic medications and/or insulin during the prepping period and the day of the procedure. The times above are a general guide. You may change the times if needed to accommodate your schedule. Example, instead of taking your first step at 1 PM you may take your first step at 6 PM. Your time frames would be: 6 PM take 2 Dulcolax tablets, at 8 PM you would start drinking the Miralax mixture and at 9 PM you would take two more Dulcolax tablets. Any questions please call [phone] or [phone] and ask for the general surgery nurses. What is a colonoscopy? A colonoscopy is an outpatient procedure in which the inside of the large intestine (colon and rectum) is examined. A colonoscopy is commonly used to evaluate gastrointestinal symptoms, such as rectal and intestinal bleeding, abdominal pain, or change in bowel habits. Colonoscopies are also performed in individuals without symptoms to check for colorectal polyps or cancer. A screening colonoscopyis recommended for anyone 50 years of age or older, and for anyone with parents, siblings, or children with a history of colorectal cancer or polyps. What happens before a colonoscopy? To have a successful colonoscopy, your bowel must be empty so that your physician can clearly view the colon. To do this, it is very important to read and follow all of the instructions given to you at least 2 weeks BEFORE your exam. If your bowel is not empty, your colonoscopy will not be successful and may have to be repeated. If you feel nauseated or vomit while taking the bowel preparation, wait 30 minutes before drinking more fluid and start with small sips of solution. Some activity (such as walking) may help decrease the nausea you are feeling. If the nausea persist, please contact the office at [phone] and askfor the provider's office that scheduled your colonoscopy or nurse photonics engineering technician at [phone]. You may experience skin irritation around the anus due to the passage of liquid stool. To prevent and treat skin irritation you should: Apply Vaseline or Desitin ointment to the skin around the anus before drinking the bowel preparation medications. These products can be purchased at any [employer]. Wipe the skin after each bowel movement with disposable wet wipes instead of toilet paper. These are found in the toilet paper area of the store. Sit in a bathtub filled with warm water for 10-15 minutes after you finish passing a stool; after soaking blot the skin dry with a soft cloth, apply Vaseline or Desitin ointment to the anal area, andplace a cotton ball just outside your anus to absorb any leaking fluid. What happens during a Colonoscopy? During a colonoscopy, an experienced physician uses a colonoscope (a long, flexible instrument about inch in diameter) to view the lining of the colon, the colonscope is inserted into the rectum and advanced through the large intestine. If necessary during a colonoscopy, small amounts of tissue canbe removed for analysis (biopsy) and polyps can be identifies and entirely removed. In many cases, a colonoscopy allows accurate diagnosis and treatment of colorectal problems without the need for a major operation. You are asked to wear a hospital gown and an IV will be started You are given a pain reliever and sedative intravenously (in your vein). You will feel relaxed and somewhat drowsy You will lie on your left side, with your knees drawn up towards your chest A small amount of air is used to expand the colon so the physicians can see the colon jovel. You may feel mild cramping during the procedure. Cramping can be reduced by taking slow, deep breaths. The colonoscope is slowly withdrawn while the lining of your bowel is carefully examined. The procedure last from approximately 30-60 min. What happens after a Colonoscopy? You will stay in a recovery room for observation until you are ready for discharge You may feel some cramping and/or a sensation of having gas, but this quickly passes If sedation has been given, a responsible family member or friend MUST drive you home. Avoid alcohol, driving and operating machinery for 24 hrs. following the procedure. Unless otherwise instructed, you may immediately return to your normal diet. We recommend you wait until the day after your procedure to resume normal activities. If Polyps were removed or a biopsy was taken, the physicians performing the colonoscopy will tell you when it is safe to resume taking your blood thinners. If a biopsy was taken or if a polyp was removed, you will notice a little amount of rectal bleedingfor 1-2 days after the procedure. If you have a large amount of rectal bleeding, high or persistentfever, or severe abdominal pain within the next 2 weeks, please go to your local emergency room andcall the physician who performed your exam. documented in this encounterOur [facility]04-29-[facility] History of Present illness Narrative* Asia Salgado APRN.CNP - 07/20/2024 9:00 AM EDT HISTORY AND PHYSICAL Barrett Lopez : 1975 REFERRING PHYSICIAN: SELF CHIEF COMPLAINT: Patient presents with: Consult: ER follow up diverticulitis HPI: Barrett is a 49 year old male referred for endoscopy. Barrett notes recent diverticulitis. Barrett presented to [facility] ED on 07/02 with LLQ pain- was dx with uncomplicated diverticulitis, was prescribed flagyl & cipro. He presented on 07/14 for the same complaint. CT showed improving diverticulitis. Pt noted he was unable to tolerate PO and pain was uncontrolled- he was given IV zosyn & d/c'd with a 7 day course of augmentin. CT Abd/Pelv w/ IV IMPRESSION: Minimal residual acute uncomplicated diverticulitis of the mid sigmoid colon, significantly improved from recent prior. Barrett notes abdominal pain. -12/01 RLQ-stabbing pain -also c/o LUQ pain that he received steroid injection in a couple of weeks ago with no relief. Barrett denies melena. Barrett denies bright red blood per rectum. Barrett denies hemorrhoids. Barrett has attempted colonoscopy twice in the last year with 2 unsuccessful bowel preps. He notes that he can not tolerate Golytely as it makes him vomit. The last time I met with Barrett I started him on Carafate & omperazole for LUQ pain. He notes that has helped. He also notes he has cut back on mountain dew, coffee- is drinking tea, isn't eatinglettuce anymore, and is feeling much better. He can't understand why his BMI is increasing. Hx of colectomy- sigmoid d/t diverticulitis Hx of cholecystectomy Hx of appendectomy Barrett has undergone prior endoscopy. Last colonoscopy was 03/[address] Andersen at [facility]. Sedation:Fentanyl 100 micrograms IV, Midazolam 5 mg IV, Diphenhydramine 50 mg IV Impression: - Preparation of the colon was fair. - Stool in the entire examined colon. - Patent end-to-end colo-rectal anastomosis, characterized by healthy appearing mucosa. - No specimens collected. Current Outpatient Medications Medication Sig amoxicillin-clavulanate potassium (AUGMENTIN) 875-125 mg per tablet Take 1 tablet by mouth every 12hours. sucralfate (CARAFATE) 1 gram tablet Take 1 g by mouth three times a day. acetaminophen (TYLENOL EXTRA STRENGTH ORAL) Take by mouth as needed (pain). omeprazole (PRILOSEC) 40 mg capsule Take 1 capsule by mouth two times a day. ZOLOFT 25 mg tablet Take 25 mg by mouth once daily. cyclobenzaprine (FLEXERIL) 10 mg tablet Take by mouth once daily. polyethylene glycol 3350 17 gram/dose powder Use as directed for Miralax / Sports Drink Bowel Prep Kit sports drink Use as directed for Miralax / Sports Drink Bowel Prep Kit Bisacodyl (DULCOLAX) 5 mg tab Use as directed for Miralax / Sports Drink Bowel Prep Kit No current facility-administered medications for this visit. 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 Unspecified adjustment reaction 10/23/2011 PAST SURGICAL HISTORY Procedure Laterality Date ABDOMINAL SURGERY HX APPENDECTOMY 12/2004 [facility] APPENDECTOMY HX COLECTOMY PART W/ANASTOMOSIS 11/07/2016 Open sigmoid colectomy with mobilization of splenic flexure for limited diverticulitis performed [facility] COLON SURGERY HX COLONOSCOPY 11/26/2022 repeat in 10 years COLONOSCOPY 12/08/2023 unable to complete due to poor bowel prep. COLONOSCOPY FLX DX W/COLLJ SPEC WHEN PFRMD 04/03/2021 repeat in 1 year-due to poor bowel prep EGD 11/26/2022 EGD 12/08/2023 ESOPHAGOGASTRODUODENOSCOPY TRANSORAL DIAGNOSTIC 04/03/2018 EGD ESOPHAGOGASTRODUODENOSCOPY TRANSORAL DIAGNOSTIC 01/16/2021 ESOPHAGOGASTRODUODENOSCOPY TRANSORAL DIAGNOSTIC 04/03/2021 FOOT SURGERY HX Bilateral 1991 preair of broken feet FRACTURE SURGERY HAND SURGERY HX Left 2006 repair of fracture KNEE SURGERY HX Right 2016 LAPS SURG CHOLECYSTECTOMY W/CHOLANGIOGRAPHY 12/08/2017 PAST SURGICAL HISTORY OF 04/2007 fracture/Deviated septum TONSILLECTOMY & ADENOIDECTOMY AGE 14/> 2011 T/A (over age 14 years) TONSILLECTOMY HX FAMILY HISTORY Problem Relation Age of Onset Diabetes Mother Hypertension Mother Cancer Mother lung and brain Hearing Loss Maternal Grandmother Diabetes Maternal Grandmother Heart Maternal Grandfather AR other (unknown) Father brain aneurysm? Social History Tobacco Use Smoking status: Never Smokeless tobacco: Never Vaping Use Vaping status: Never Used Substance Use Topics Alcohol use: No Drug use: No PHYSICAL EXAMINATION: General: The patient is 49 year old, male well nourished, well hydrated in no acute distress. The patient is oriented to time, place, and person. VITALS: Blood pressure 130/82, pulse 91, temperature 36.7 C (98 F), height 170.2 cm (5' 7), weight(!) 149.4 kg (329 lb 6.4 oz), SpO2 96%. Body mass index is 51.59 kg/m . HEENT: Normal cephalic, ataumatic, pupils are equally round, sclera are anicteric, mucous membranesare moist, oropharynx is clear. Neck has no masses, asymmetry or lymphadenopathy. Respiratory: Clear to auscultation and percussion. Normal respiratory excursion and pattern. Cardiac: Examination is regular rate and rhythm. Normal S1/S2 Abdominal exam: Soft, with no palpable masses. No hepatosplenomegaly. No palpable hernias. RLQ tenderness only Extremities: no clubbing, cyanosis or edema. No adenopathy. LABORATORY VALUES: As Noted RADIOLOGIC STUDIES: As Noted Assessment IMPRESSION: diverticulitis, RLQ pain PLAN: I have reviewed my findings with the surgeon. Will plan for lower endoscopy. We discussed therisks and benefits of the planned endoscopy in terms understandable to the patient. I have informedthe patient that complications can occur including failure to complete the endoscopy and perforation. Barrett had the opportunity to ask questions concerning the planned endoscopy. Barrett freely consents to surgery. I plan to use MiraLAX bowel preparation with 3 days of clear liquids- can't bowel prep until 09/01/2024 I have explained to the patient the difference between IV conscious sedation and MAC anesthesia - and I have offered either, according to the patient's wishes. I have explained that with IV conscioussedation there is no anesthesia provider available and therefore there is a limitation of the amount of IV medications that can be given and that the patient may wake up in the middle of the procedure and/or experience pain/discomfort during the procedure. Further discussion was done and the patient was given the opportunity to ask questions and all questions were answered. MAC anesthesia- BMI is>50 Barrett was counseled that if there are changes in his/her medical condition, to let the office knowif surgery should proceed. If there are changes in patient's medical condition from time of this encounter to the day of the procedure that preclude anesthesia, patient may have procedure cancelled for patient's safety. Diagnoses: (K57.92) Diverticulitis (primary encounter diagnosis) (R10.31) RLQ discomfort Portions of this documentation were copied and pasted from previous office visit notes in order to provide a cohesive continuity of the history. The note has been reviewed and edited and updated as necessary. Asia Salgado APRN.ISA documented in this encounterOur Lady Of Mercy [facility]04-29-2025 NoteHNO ID: [id number] Author: ASIA SALGADO APRN.TELEVISION CABINET FINISHER Service: ? Author Type: Nurse Practitioner Type: Progress Notes Filed: 07/20/2024 11:51 Note Text: HISTORY AND PHYSICAL Barrett Lopez : 1975 REFERRING PHYSICIAN: SELF CHIEF COMPLAINT: Patient presents with: Consult: ER follow up diverticulitis HPI: Barrett is a 49 year old male referred for endoscopy. Barrett notes recent diverticulitis. Barrett presented to [facility] ED on 07/02 with LLQ pain- was dx with uncomplicated diverticulitis, was prescribed flagyl AND cipro. He presented on 07/14 for the same complaint. CT showed improving diverticulitis. Pt noted he was unable to tolerate PO and pain was uncontrolled- he was given IV zosyn AND d/c'd with a 7 day course of augmentin. CT Abd/Pelv w/ IV IMPRESSION: Minimal residual acute uncomplicated diverticulitis of the mid sigmoid colon, significantly improved from recent prior. Barrett notes abdominal pain. -12/01 RLQ-stabbing pain -also c/o LUQ pain that he received steroid injection in a couple of weeks ago with no relief. Barrett denies melena. Barrett denies bright red blood per rectum. Barrett denies hemorrhoids. Barrett has attempted colonoscopy twice in the last year with 2 unsuccessful bowel preps. He notes that he can not tolerate Golytely as it makes him vomit. The last time I met with Barrett I started him on Carafate AND omperazole for LUQ pain. He notes that has helped. He also notes he has cut back on mountain dew, coffee- is drinking tea, isn't eating lettuce anymore, and is feeling much better. He can't understand why his BMI is increasing. Hx of colectomy- sigmoid d/t diverticulitis Hx of cholecystectomy Hx of appendectomy Barrett has undergone prior endoscopy. Last colonoscopy was 03/[address] Andersen at [facility]. Sedation:Fentanyl 100 micrograms IV, Midazolam 5 mg IV, Diphenhydramine 50 mg IV Impression: - Preparation of the colon was fair. - Stool in the entire examined colon. - Patent end-to-end colo-rectal anastomosis, characterized by healthy appearing mucosa. - No specimens collected. Current Outpatient Medications Medication Sig amoxicillin-clavulanate potassium (AUGMENTIN) 875-125 mg per tablet Take 1 tablet by mouth every 12 hours. sucralfate (CARAFATE) 1 gram tablet Take 1 g by mouth three times a day. acetaminophen (TYLENOL EXTRA STRENGTH ORAL) Take by mouth as needed (pain). omeprazole (PRILOSEC) 40 mg capsule Take 1 capsule by mouth two times a day. ZOLOFT 25 mg tablet Take 25 mg by mouth once daily. cyclobenzaprine (FLEXERIL) 10 mg tablet Take by mouth once daily. polyethylene glycol 3350 17 gram/dose powder Use as directed for Miralax / Sports Drink Bowel Prep Kit sports drink Use as directed for Miralax / Sports Drink Bowel Prep Kit Bisacodyl (DULCOLAX) 5 mg tab Use as directed for Miralax / Sports Drink Bowel Prep Kit No current facility-administered medications for this visit. 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 Unspecified adjustment reaction 10/23/2011 PAST SURGICAL HISTORY Procedure Laterality Date ABDOMINAL SURGERY HX APPENDECTOMY 12/2004 [facility] APPENDECTOMY HX COLECTOMY PART W/ANASTOMOSIS 11/07/2016 Open sigmoid colectomy with mobilization of splenic flexure for limited diverticulitis performed at [facility] COLON SURGERY HX COLONOSCOPY 11/26/2022 repeat in 10 years COLONOSCOPY 12/08/2023 unable to complete due to poor bowel prep. COLONOSCOPY FLX DX W/COLLJ SPEC WHEN PFRMD 04/03/2021 repeat in 1 year-due to poor bowel prep EGD 11/26/2022 EGD 12/08/2023 ESOPHAGOGASTRODUODENOSCOPY TRANSORAL DIAGNOSTIC 04/03/2018 EGD ESOPHAGOGASTRODUODENOSCOPY TRANSORAL DIAGNOSTIC 01/16/2021 ESOPHAGOGASTRODUODENOSCOPY TRANSORAL DIAGNOSTIC 04/03/2021 FOOT SURGERY HX Bilateral 1991 preair of broken feet FRACTURE SURGERY HAND SURGERY HX Left 2006 repair of fracture KNEE SURGERY HX Right 2016 LAPS SURG CHOLECYSTECTOMY W/CHOLANGIOGRAPHY 12/08/2017 PAST SURGICAL HISTORY OF 04/2007 fracture/Deviated septum TONSILLECTOMY AND ADENOIDECTOMY AGE 14/> 2011 T/A (over age 14 years) TONSILLECTOMY HX FAMILY HISTORY Problem Relation Age of Onset Diabetes Mother Hypertension Mother Cancer Mother lung and brain Hearing Loss Maternal Grandmother Diabetes Maternal Grandmother Heart Maternal Grandfather AR other (unknown) Father brain aneurysm? Social History Tobacco Use Smoking status: Never Smokeless tobacco: Never Vaping Use Vaping status: Never Used Substance Use Topics Alcohol use: No Drug use: No PHYSICAL EXAMINATION: General: The patient is 49 year old, male well nourished, well hydrated in no acute dist (more content not included)...[facility]04-23-2025 Radiology Diagnostic study [facility]04-23-2025 Discharge summary Author Sebastian Puri [facility] Note Date/Time July 14, 2024 5:5 6pm [facility] Medical Records Department [address] [place] [address] Emergency Department Summary 07/14/24 MR#: [id number] Acct: [id number] Name: BARRETT LOPEZ Rep #:[id number] : 1975 49 From: Sebastian urena DO PCP: ALCIRA COLBERT Status:REG ER Location: ED HPI History of Present Illness Chief Complaint: Abd Pain Narrative Narrative: Chief complaint and HPI: 49-year-old male with past medical history of diverticulitis presents for evaluation of left lower quadrant abdominal pain. History taken by patient as well as medical record. Per discharge summary patient was discharged from the hospital on 07/02 for acute uncomplicated sigmoiddiverticulitis. He was discharged with a 7-day course of Cipro and Flagyl. Patient states since discharge he has continued to have left lower quadrant abdominal pain. He states that he took all of his antibiotics. He endorses symptomatic fever but states that he has not had a fever via thermometer. He states that he called Dr.'s Nix's office and they recommended him be seen in the emergency department. Associated symptom is nausea and decreased p.o. intake. He denies any chest pain, shortness of breath, dysuria. Review of systems: See HPI Medications: As listed on the chart Allergies: As listed on the chart PFSH: Per chart Vital signs: As listed on the chart. Reviewed. Physical exam: Gen: A&O x3, NAD Head: Normocephalic, atraumatic Eyes: No sclera icterus, conjunctiva clear ENT: Moist mucous membranes Neck: Trachea midline, No JVD CV: RRR, no murmurs, no peripheral edema Resp: Lungs CTA BL, no w/r/c GI: Abd soft, non-distended, left lower quadrant abdominal pain, + voluntary guarding, no rebound or rigidity : No CVA tenderness Musc: Full ROM, no deformity Skin: Warm, dry Neuro: Alert, oriented, grossly intact, sensation intact Psych: Cooperative, appropriate mood and affect [facility] Medical History Morbid obesity with BMI of 50.0-59.9, adult GERD (gastroesophageal reflux disease) History of diverticulitis Periumbilical hernia Diverticulitis Rheumatoid arthritis History of stroke History of AR (myocardial infarction) Anxiety and depression Morbid obesity Hypertension Diverticulitis large intestine Home Medications ?Medication ?Instructions ?Recorded ?Last Taken ?Type sertraline 25 mg tablet 25 mg PO DAILY 05/02/2412/16 History sucralfate 1 gram tablet 1 g PO TIDAC 30 days #90 tab s 05/03/24 Unknown Rx docusate sodium 100 mg capsule 100 mg PO BID #60 caps 05/30/24 07/13/24 Rx (Colace) omeprazole 40 mg capsule,delayed 40 mg PO BID 07/02/24 07/13/24 History release ondansetron 8 mg disintegrating 8 mg PO Q8H PRN nausea and 07/02/24 07/13/24 Rx tablet vomiting #14 tabs oxycodone 5 mg capsule 5 mg PO Q6H PRN pain (scale score 07/02/24 Unknown Rx 7-10) 3 days #12 caps Allergy/AdvReac Type Severity Reaction Status Date / Time morphine Allergy Mild Rash Verified 07/14/24 13:41 acetaminophen (From Vicodin) Allergy Rash Verified 07/14/24 13:41 codeine Allergy Anaphylaxis Verified 07/14/24 13:41 hydrocodone bitartrate (From Allergy Rash Verified 07/14/24 13:41 Vicodin) latex Allergy Swelling Verified 07/14/24 13:41 naproxen Allergy Hives Verified 07/14/24 13:41 ondansetron (From Zofran (as AdvReac Nausea Verified 07/14/24 13:41 hydrochloride)) Family History Mother Cancer Father Brain aneurysm Surgical History History of bowel resection Hx of hand surgery Hx of foot surgery Hx of arthroscopy of right knee History of tonsillectomy and adenoidectomy Hx of cholecystectomy Hx of appendectomy Social History household members: spouse Smoking Status: Never smoker alcohol intake: never substance use type: does not use EXAM Physical Exam Const Vital Signs: 07/14/24 13:39 07/14/24 15:46 07/14/24 17:00 Temperature 97.8 F 98 F Temperature Source Oral Pulse Rate 88 86 73 Respiratory Rate 18 16 18 Blood Pressure 178/104 H 105/69 105/78 Blood Pressure Mean 128 81 87 Pulse Ox 99 99 99 Oxygen Delivery Method Room Air Room Air 07/14/24 17:15 Temperature 98.2 F Temperature Source Oral Pulse Rate 78 Respiratory Rate 16 Blood Pressure 105/78 Blood Pressure Mean 87 Pulse Ox 98 Oxygen Delivery Method Room Air MDM MDM MDM Narrative Medical decision making narrative: 49-year-old male with past medical history of diverticulitis presents for evaluation of left lower quadrant abdominal pain. History taken by patient as well as medical record, discharge summary from 07/02. Patient endorses left lower quadrant abdominal pain since 07/02 when he was diagnosed with diverticulitis. Associated symptom nausea and decreased p.o. intake. Differential diagnosis includes but is not limited to diverticulitis, abscess, electrolyte abnormality, UTI, urolithiasis. NS bolus, morphine, Zofran ordered for symptoms. CT abdomen pelvis ordered. CBC without leukocytosis or anemia. CMP unremarkable. Lactic acid unremarkable. Lipase unremarkable. UA negative for UTI. CT abdomen pelvis shows minimal residual acute uncomplicated diverticulitis of the mild sigmoid colon, significantly improved from prior. Onreevaluation, patient states that his pain is not controlled. He states he has been eating and able to tolerate p.o. intake. Given these reasons, patient willwarrant admission. Dilaudid and Zosyn ordered. I spoke with Dr. Bhakta with the hospitalist service, recommend reaching out to general surgery prior to admission. I spoke with Dr. Patel who personally reviewed the imaging. He agrees that CT abdomen pelvis shows improved infection. Agrees with IV antibiotics and admission until patient can tolerate diet. I recontacted Dr. Bhakta who spoke to Dr. Patel after me, he will evaluate the patient prior to admission. On Dr. Patel evaluation, patient endorsing right lower quadrant abdominal pain and tenderness however this is the opposite of what the patient endorsed to me as well as on physical exam. Plan is for patient to discharge home on a 7-day course of Augmentin per Dr. Patel. Follow- up in his office. Patient confirmed understanding the plan. Patient will be discharged home. Return precautions explained. Impression: 1. Mild acute uncomplicated diverticulitis Lab Data Labs: Laboratory Results - last 24 hr 07/14/24 07/14/24 07/14/24 14:49 15:25 15:28 WBC 11.0 RBC 5.05 Hgb 13.4 Hct 41.4 MCV 82.0 MCH 26.5 L MCHC 32.4 RDW Std Deviation 39.8 RDW Coeff of [place] 13.5 Plt Count 400 MPV 9.6 Immature Gran % (Auto) 0.500 Neut % (Auto) 61.4 Lymph % (Auto) 30.5 [place] % (Auto) 5.0 Eos % (Auto) 2.1 Baso % (Auto) 0.5 Absolute Neuts (auto) 6.8 Absolute Lymphs (auto) 3.36 Nucleated RBC % 0 Sodium 137 Potassium 4.3 Chloride 102 Carbon Dioxide 23.3 Anion Gap 12 BUN 15 Creatinine 0.91 Estim Creat Clear Calc 140.89 Est GFR (MDRD) Non-Af 104 BUN/Creatinine Ratio 15.9 Glucose 95 Lactic Acid Calcium 8.8 Total Bilirubin 0.27 AST 24 ALT 24 Alkaline Phosphatase 103 Total Protein 7.5 Albumin 3.9 Globulin 3.6 Albumin/Globulin Ratio 1.1 Lipase 19 Urine Color Yellow Urine Clarity Clear Urine pH 7.0 Ur Specific [place] 1.010 Urine Protein TNP Urine Glucose (UA) Normal Urine Ketones Negative Urine Occult Blood Negative Urine Nitrite Negative Urine Bilirubin Negative Urine Urobilinogen Normal Ur Leukocyte Esterase 25 H Urine RBC 0-5 SEEN Urine WBC 5-10 SEEN Ur Squamous Epith Cells 0 SEEN Urine Bacteria RARE Urine Mucus 0 SEEN U Random Total Protein 14.8 H 07/14/24 15:30 WBC RBC Hgb Hct MCV MCH MCHC RDW Std Deviation RDW Coeff of [place] Plt Count MPV Immature Gran % (Auto) Neut % (Auto) Lymph % (Auto) [place] % (Auto) Eos % (Auto) Baso % (Auto) Absolute Neuts (auto) Absolute Lymphs (auto) Nucleated RBC % Sodium Potassium Chloride Carbon Dioxide Anion Gap BUN Creatinine Estim Creat Clear Calc Est GFR (MDRD) Non-Af BUN/Creatinine Ratio Glucose Lactic Acid 1.5 Calcium Total Bilirubin AST ALT Alkaline Phosphatase Total Protein Albumin Globulin Albumin/Globulin Ratio Lipase Urine Color Urine Clarity Urine pH Ur Specific [place] Urine Protein Urine Glucose (UA) Urine Ketones Urine Occult Blood Urine Nitrite Urine Bilirubin Urine Urobilinogen Ur Leukocyte Esterase Urine RBC Urine WBC Ur Squamous Epith Cells Urine Bacteria Urine Mucus U Random Total Protein Radiography Diagnostic Testing: Clinical Impression(s) from Imaging Studies Abdomen/Pelvis CT 07/14/24 15:00 IMPRESSION: Minimal residual acute uncomplicated diverticulitis of the mid sigmoid colon, significantly improved from recent prior. Reading Location: [facility] Discharge Plan Triage Chief Complaint: Abd Pain ED Provider: Sebastian Puri Dx/Rx/DC Orders Prescriptions: No Action omeprazole 40 mg capsule,delayed release(DR/EC) 40 mg PO BID Patient Comments: PT TAKES AT BEDTIME oxycodone 5 mg capsule 5 mg PO Q6H PRN (Reason: pain (scale score 7-10)) 3 Days Qty: 12 0RF Patient Comments: PT STATED HE IS OUT ondansetron 8 mg tablet,disintegrating 8 mg PO Q8H PRN (Reason: nausea and vomiting) Qty: 14 0RF Rx Instructions: 1st dose 1-2 hr before radiation sertraline 25 mg tablet 25 mg PO DAILY Patient Comments: PT TAKES AT BEDTIME sucralfate 1 gram Tablet 1 g PO TIDAC 30 Days Qty: 90 0RF Patient Comments: PT TAKES AT BEDTIME docusate sodium [Colace] 100 mg capsule 100 mg PO BID Qty: 60 0RF Patient Comments: PT TAKES AT BEDTIME Primary Care Provider: EILEEN COONEY Referrals: EILEEN COONEY CRNP [Primary Care Provider] - Print Language: Kuwaiti What to do if you have Problems For any increased pain, shortness of breath, bleeding, nausea or vomiting, chestpain, or any unexpected problems, contact your Primary Care Provider. Call [facility] ([phone]) or report to the closest Emergency Room. Call 911 if necessary. 07/14/24 175 <Electronically signed by Sebastian Puri DO> Cosigner Signature (if applicable): CC: ALCIRA COLBERT ~ Signed [facility] Work Phone: 1(108) 496-852304-12-2025 NoteHNO ID: [id number] Author: GUERLINE ANDERSEN MD Service: ? Author Type: Physician Type: Progress Notes Filed: 07/03/2024 09:07 Note Text: HISTORY AND PHYSICAL Barrett Lopez 1975 REFERRING PHYSICIAN: Self CHIEF COMPLAINT: Hernia HPI: The patient is a 49 year old male with a complaint of left upper quadrant pain at the costal margin. The patient notes pain in the left upper quadrant region just below his and at his rib cage. He comes in presenting wondering if he has a hernia because it hurts when the area is pressed on or whether he has gastritis or other abdominal issues. He was seen in the emergency department at [facility] on April 28 and 2024 for what was listed as chest pain of unknown etiology. I do not have that record but his discharge instructions include possibilities of costochondritis reflux and gallbladder disease. He was also seen on May 08 and most recently May 29. He was seen by Eileen Cooney on June 10 for the above complaints and was referred to my office. She underwent CT scans of the chest and abdomen on May 29, 2024 ordered through the emergency department which demonstrated no specific abnormalities he had CT scan on May 08, 2024 at [facility] which demonstrated no abnormalities. He was noted on that scan to have small fat-containing umbilical and inguinal hernias CT scans performed on May 02 and April 28 demonstrated no acute abnormalities umbilical hernia was noted to be approximately 6 cm in size The patient on appendectomy at [facility] in 2004. He had his open sigmoid colectomy for diverticulitis on November 07, 2016 performed at [facility] in [place] and a laparoscopic cholecystectomy on December 08, 2017 which I performed. More recently I performed endoscopy on Barrett and had seen him in the past for an anal fissure. He was seen by Joy Salgado on December 05, 2023 to be scheduled for repeat colonoscopy due to incomplete prep. She underwent upper and lower endoscopy in November 2022 and November of 2023 for abdominal pain complaints of right-sided and upper abdominal pain. Endoscopy demonstrated in 2022- Upper Impression: - Normal examined jejunum. - Duodenitis. Biopsied. - Gastritis. Biopsied. - Mildly severe reflux esophagitis with no bleeding. Biopsied. Colonoscopy was unremarkable Pathology demonstrated: FINAL DIAGNOSIS A. Duodenum, biopsy: - Duodenal mucosa with preserved villous architecture and a mild increase in intraepithelial lymphocytes; see comment. B. Stomach, antrum, biopsy: - Gastric antral mucosa with reactive gastropathy. - No evidence of Helicobacter pylori organisms on ESTEVAN stain. C. Esophagus, distal, biopsy: - Squamocolumnar junctional mucosa with mild chronic inflammation. - Negative for granulomas and dysplasia. Endoscopy demonstrated 2023-performed by Dr. Cunha- Normal upper endoscopy, with inadequate prep and an aborted colonoscopy Pathology demonstrated: FINAL DIAGNOSIS A. Small Bowel, Duodenum, Biopsy -Superficial fragments of duodenal mucosa with mild reactive changes and normal villous architecture, B. Stomach, antrum, biopsy -Gastric antral mucosa with no significant histopathologic changes, negative for Helicobacter pylori type organisms C. Esophagus, distal, biopsy -Squamous mucosa with focal reactive changes Colonoscopy was performed again for right lower quadrant pain on April 21, 2024. This demonstrated: Impression: - Preparation of the colon was fair. - Stool in the entire examined colon. - Patent end-to-end colo-rectal anastomosis, characterized by healthy appearing mucosa. - No specimens collected. The patient is being seen by me today at the request of Eileen Cooney, JENNYFER, [employer] for my opinion and advice regarding abdominal complaints hernia, question epigastric issues and pain in the left upper quadrant costal region. After further discussion the patient's did note the patient had fallen and landed on that side of his body a few weeks previously 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 Unspecified adjustment reaction 10/23/2011 PAST SURGICAL HISTORY Procedure Laterality Date ABDOMINAL SURGERY HX APPENDECTOMY 12/2004 [facility] APPENDECTOMY HX COLECTOMY PART W/ANASTOMOSIS 11/07/2016 Open sigmoid colectomy with mobilization of splenic flexure for limited diverticulitis COLON SURGERY HX COLONOSCOPY 11/26/2022 repeat in 10 years COLONOSCOPY 12/08/2023 unable to complete due to poor bowel prep. COLONOSCOPY FLX DX W/COLLJ SPEC WHEN PFRMD 04/03/2021 repeat in 1 year-due to poor bowel prep EGD 11/26/2022 EGD 12/08/2023 ESOPHAGOGASTRODUODENOSCOPY TRANSORAL DIAGNOSTIC 04/03/2018 EGD ESOPHAGOGASTRODUODENOSCOPY OSHEA (more content not included)...[facility]04-12-2025 History of Present illness Narrative* Guerline Andersen MD - 07/03/2024 8:37 AM EDT HISTORY AND PHYSICAL Barrett Lopez 1975 REFERRING PHYSICIAN: Self CHIEF COMPLAINT: Hernia HPI: The patient is a 49 year old male with a complaint of left upper quadrant pain at the costal margin. The patient notes pain in the left upper quadrant region just below his and at his rib cage. He comes in presenting wondering if he has a hernia because it hurts when the area is pressed on or whether he has gastritis or other abdominal issues. He was seen in the emergency department at [facility] on April 28 and 2024 for what was listed as chest pain of unknown etiology. I do not have that record but his discharge instructions include possibilities of costochondritis reflux and gallbladder disease. He was also seen on and most recently May 29. He was seen by Eileen Cooney on June 10 for the above complaints and was referred to my office. She underwent CT scans of the chest and abdomen on May 29, 2024 ordered through the emergency department which demonstrated no specific abnormalities he had CT scan on May 08, 2024 at [facility] which demonstrated no abnormalities. He was noted on that scan to have small fat-containing umbilical and inguinal hernias CT scans performed on May 02 and April 28 demonstrated no acute abnormalities umbilical hernia was noted to be approximately 6 cm in size The patient on appendectomy at [facility] in 2004. He had his open sigmoid colectomy for diverticulitis on November 07, 2016 performed at [facility] in [place] and a laparoscopic cholecystectomy on December 08, 2017 which I performed. More recently I performed endoscopy on Barrett and had seen him in the past for an anal fissure. He was seen by Joy Salgado on December 05, 2023 to be scheduled for repeat colonoscopy due to incomplete prep. She underwent upper and lower endoscopy in November 2022 and November of 2023 for abdominal pain complaints of right-sided and upper abdominal pain. Endoscopy demonstrated in 2022- Upper Impression: - Normal examined jejunum. - Duodenitis. Biopsied. - Gastritis. Biopsied. - Mildly severe reflux esophagitis with no bleeding. Biopsied. Colonoscopy was unremarkable Pathology demonstrated: FINAL DIAGNOSIS A. Duodenum, biopsy: - Duodenal mucosa with preserved villous architecture and a mild increase in intraepithelial lymphocytes; see comment. B. Stomach, antrum, biopsy: - Gastric antral mucosa with reactive gastropathy. - No evidence of Helicobacter pylori organisms on H&E stain. C. Esophagus, distal, biopsy: - Squamocolumnar junctional mucosa with mild chronic inflammation. - Negative for granulomas and dysplasia. Endoscopy demonstrated 2023-performed by Dr. Cunha- Normal upper endoscopy, with inadequate prep and an aborted colonoscopy Pathology demonstrated: FINAL DIAGNOSIS A. Small Bowel, Duodenum, Biopsy -Superficial fragments of duodenal mucosa with mild reactive changes and normal villous architecture, B. Stomach, antrum, biopsy -Gastric antral mucosa with no significant histopathologic changes, negative for Helicobacter pylori type organisms C. Esophagus, distal, biopsy -Squamous mucosa with focal reactive changes Colonoscopy was performed again for right lower quadrant pain on April 21, 2024. This demonstrated: Impression: - Preparation of the colon was fair. - Stool in the entire examined colon. - Patent end-to-end colo-rectal anastomosis, characterized by healthy appearing mucosa. - No specimens collected. The patient is being seen by me today at the request of Eileen Cooney, JENNYFER, [employer] for my opinion and advice regarding abdominal complaints hernia, question epigastric issues and pain in the left upper quadrant costal region. After further discussion the patient's did note the patient had fallen and landed on that sideof his body a few weeks previously 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 Unspecified adjustment reaction 10/23/2011 PAST SURGICAL HISTORY Procedure Laterality Date ABDOMINAL SURGERY HX APPENDECTOMY 12/2004 [facility] APPENDECTOMY HX COLECTOMY PART W/ANASTOMOSIS 11/07/2016 Open sigmoid colectomy with mobilization of splenic flexure for limited diverticulitis COLON SURGERY HX COLONOSCOPY 11/26/2022 repeat in 10 years COLONOSCOPY 12/08/2023 unable to complete due to poor bowel prep. COLONOSCOPY FLX DX W/COLLJ SPEC WHEN PFRMD 04/03/2021 repeat in 1 year-due to poor bowel prep EGD 11/26/2022 EGD 12/08/2023 ESOPHAGOGASTRODUODENOSCOPY TRANSORAL DIAGNOSTIC 04/03/2018 EGD ESOPHAGOGASTRODUODENOSCOPY TRANSORAL DIAGNOSTIC 01/16/2021 ESOPHAGOGASTRODUODENOSCOPY TRANSORAL DIAGNOSTIC 04/03/2021 FOOT SURGERY HX Bilateral 1991 preair of broken feet FRACTURE SURGERY HAND SURGERY HX Left 2006 repair of fracture KNEE SURGERY HX Right 2016 LAPS SURG CHOLECYSTECTOMY W/CHOLANGIOGRAPHY 12/08/2017 PAST SURGICAL HISTORY OF 04/2007 fracture/Deviated septum TONSILLECTOMY & ADENOIDECTOMY AGE 14/> 2011 T/A (over age 14 years) TONSILLECTOMY HX Current Outpatient Medications Medication Sig sucralfate (CARAFATE) 1 gram tablet Take 1 g by mouth three times a day. acetaminophen (TYLENOL EXTRA STRENGTH ORAL) Take by mouth as needed (pain). ZOLOFT 25 mg tablet Take 25 mg by mouth once daily. omeprazole (PRILOSEC) 40 mg capsule Take 1 capsule by mouth two times a day. cyclobenzaprine (FLEXERIL) 10 mg tablet Take by mouth once daily. (Patient not taking: Reported on 06/30/2024) No current facility-administered medications for this visit. ALLERGIES: Codeine, Latex, Naproxen, and Vicodin [Hydrocodone-Acetaminophen] PERSONAL HISTORY: Social History Tobacco Use Smoking status: Never Smokeless tobacco: Never Vaping Use Vaping status: Never Used Substance Use Topics Alcohol use: No Drug use: No FAMILY HISTORY: FAMILY HISTORY Problem Relation Age of Onset Diabetes Mother Hypertension Mother Cancer Mother lung and brain Hearing Loss Maternal Grandmother Diabetes Maternal Grandmother Heart Maternal Grandfather AR other (unknown) Father brain aneurysm? REVIEW OF SYMPTOMS: The review of systems data was entered by the nurse and reviewed by me There are no exam notes on file for this visit. PHYSICAL EXAMINATION: General: The patient is 49 year old male, well nourished, well hydrated in no acute distress. The patient is oriented to time, place, and person. VITALS: Blood pressure 144/91, pulse 80, weight (!) 148.9 kg (328 lb 3.2 oz), SpO2 96%. HEENT: Normal cephalic, ataumatic, pupils are equally round, sclera are anicteric, mucous membranesare moist, oropharynx is clear. Neck has no masses, asymmetry or lymphadenopathy. Thyroid is unremarkable. Respiratory: Clear to auscultation and percussion. Normal respiratory excursion and pattern. Cardiac: Examination is regular rate and rhythm. Abdominal exam: Obese soft, nontender in the lower abdomen, with no palpable masses. No hepatosplenomegaly. Umbilical and inguinal regions not assessed per patient request. Left upper quadrant tenderness relatively point area just abdomen below the costal margin. No palpable hernias in the area. No bruising of the area Rectal exam: exam deferred Extremities: no clubbing, cyanosis or edema. No adenopathy. Other: LABORATORY VALUES: As Noted RADIOLOGIC STUDIES: As Noted PROCEDURE: INJECTION OF LOCAL/STEROID The risks, benefits and anticipated outcomes of the procedure, the risks and benefits of the alternatives to the procedure, and the roles and tasks of the personnel to be involved, were discussed with the patient, and the patient consents to the procedure and agrees to proceed. After consent was obtained and the site, person, and procedure verified, the patient`s skin was prepped and draped in the usual fashion. A combination of Lidocaine and Marcaine along with 10mg of Kenalog was injected into the skin. Ultrasound was used to demonstrate the appropriate layer for planned injection just above the fascial plane due to body habitus and a needle that was not able to reachthe fascial plane. The local anesthetic/steroid mixture was then injected at the planned location at the appropriate depth. This gave an adequate pain relief. The patient tolerated the procedure well. Assessment IMPRESSION: Left upper quadrant pain, questionable costochondritis PLAN: I will have my office gather emergency department and office records for this patient so I can review. No specific abnormalities were noted on CT scan. My impression clinically was costochondritis. I am uncertain whether my local steroid injection was unsuccessful due to short needle length for the patient's body habitus or missing the site. Diagnoses: (R10.12) Left upper quadrant pain (primary encounter diagnosis) My findings have been communicated to Eileen Cooney NP, CNP via shared medical record. This note will be forwarded to Eileen Cooney NP, CNP. Return to Clinic: The patient is instructed to follow-up with me in 2-3 weeks after additional records been reviewed and to consider additional local steroid injection. Guerline Andersen MD [facility] Discharge summary Author Patrick Peng [facility] Note Date/Time July 02, 2024 3:0 9pm [facility] Medical Records Department [address] [place] [address] Discharge Summary 07/02/24 1457 MR#: [id number] Acct: [id number] Name: BARRETT LOPEZ Rep #:[id number] : 1975 49 From: Patrick Peng DO PCP: ALCIRA COLBERT Status:ADM IN Location: [place] [address] Providers Date of Admission: 07/02/24 Primary Care Physician: ALCIRA COLBERT Reason For Visit: ACUTE SIGMOID DIVERTICULITIS W/ ABD PAIN, N/V/D/ Diagnosis Discharge Diagnosis (1) Sigmoid diverticulitis: Status: Acute Code(s): K57.32 - Diverticulitis of large intestine without perforation or abscess without bleeding Plan: on pip/tazo tolerated CLD, advance to transitional. If tolerates transitional diet, then would dc home to complete abx. Discharge with cipro and metronidazole. Pain control. Antiemetics. Plan VTE prophylaxis: LMWH Medications at Discharge Home Medications sertraline 25 mg tablet 25 mg PO DAILY 05/02/24 pantoprazole 40 mg tablet,delayed release (Protonix) 40 mg PO BID 30 days #60 tabs 05/03/24 sucralfate 1 gram tablet 1 g PO TIDAC 30 days #90 tabs 05/03/24 docusate sodium 100 mg capsule (Colace) 100 mg PO BID #60 caps 05/30/24 ciprofloxacin HCl 500 mg tablet 500 mg PO BID #14 tabs 07/02/24 metronidazole 500 mg tablet 500 mg PO Q8H #21 tabs 07/02/24 omeprazole 40 mg capsule,delayed release 40 mg PO BID 07/02/24 ondansetron 8 mg disintegrating tablet 8 mg PO Q8H PRN nausea and vomiting #14 tabs 07/02/24 oxycodone 5 mg capsule 5 mg PO Q6H PRN pain (scale score 7-10) 3 days #12 caps 07/02/24 Hospital Course Operations None Procedures None Summary of Care Provided Minutes Spent on Discharge: 32 Hospital Course: Patient presents with diverticulitis. CAT scan showed acute sigmoid diverticulitis. Patient complained of severe abdominal pain but he had no rebound or any guarding. Clinically patient seem to be doing well despite his complaints of severe abdominal pain. He was able to eat without any issues though he has self-reported vomiting but that was not witnessed. Reassurance provided to the patient and will be discharged with 7-day course of ciprofloxacin and metronidazole as well as pain control and antiemetics. Weight / BMI Weight Weight: 149.096 kg Body Mass Index (BMI) 51.5 ABG / Lab / Microbiology Data 07/02/24 03:40 07/02/24 03:40 Laboratory: Laboratory Results - last 24 hr 07/02/24 03:40: WBC 16.3 H, RBC 5.11, Hgb 13.8, Hct 41.7, MCV 81.6, MCH 27.0, MCHC 33.1, RDW Std Deviation 39.8, RDW Coeff of Mirlande 13.4, Plt Count 375, MPV 9.4, Immature Gran % (Auto) 0.500, Neut % (Auto) 67.3, Lymph % (Auto) 23.7, [place]% (Auto) 6.3, Eos % (Auto) 1.7, Baso % (Auto) 0.5, Absolute Neuts (auto) 11.0 H,Absolute Lymphs (auto) 3.86, Nucleated RBC % 0, Sodium 138, Potassium 3.9, Chloride 99, Carbon Dioxide 24.7, Anion Gap 14, BUN 17, Creatinine 0.97, Estim Creat Clear Calc 132.98, Est GFR (MDRD) Non-Af 97, BUN/Creatinine Ratio 17.0, Glucose 99, Calcium 9.1, Magnesium 2.0, Total Bilirubin 0.40, Direct Bilirubin 0.19, AST 18, ALT 23, Alkaline Phosphatase 122, Total Protein 7.7, Albumin 4.1, Globulin 3.5, Lipase 21, Procalcitonin 0.08, TSH 2.090 07/02/24 04:41: Lactic Acid 1.2 Radiography Diagnostic Testing: Radiology Impression Acute Abdomen Series 07/02/24 03:50 IMPRESSION: Nonobstructive bowel gas pattern Reading Location: [facility] Abdomen/Pelvis CT 07/02/24 04:36 IMPRESSION: *Acute sigmoid colon diverticulitis. *Small fat containing periumbilical hernia. Reading Location: [facility] D/C Instructions Discharge Diet: - (bland, soft diet. Advance as tolerated. ) DC O2, CPAP, BIPAP Needs Home O2 Discharge instructions: No Meaningful Use Info Meaningful Use Meaningful Use Diagnoses (Choose all that apply): None applicable Ischemic Stroke Statin Dosing Therapy Reference: STATIN DOSE THERAPY REFERENCE: * Patients > 75 years receive moderate or high dose statin therapy. * Patients 75 years or YOUNGER should receive HIGH intensity statin dose unless contraindicated. You will be required to document reason for non-treatment if statin daily dose does not meet guidelines. HIGH DOSE STATIN THERAPY DAILY Atorvastatin > than or = to 40 mg Rosuvastatin > than or = to 20 mg Amlodipine + Atorvastatin > than or = to 2.5/40 mg Ezetimibe + Simvastatin 10/80 mg Simvastatin 80mg Discharge Plan Admission Admit Date/Time: 07/02/24 06:06 Primary Reason for Your Visit: diverticulitis Attending Provider: Patrick Peng Primary Care Provider: EILEEN COONEY Consulting Providers: Vic Mercado Instructions Additional Instructions / Restrictions: You have recurrent diverticulitis, but, fortunately, uncomplicated. Take antibiotics as instructed. Do not drink alcohol while on the antibiotics as it may induce vomiting. Return to the ED if you are feeling worse. Discharge Orders/Prescriptions Prescriptions: New ciprofloxacin HCl 500 mg tablet 500 mg PO BID Qty: 14 0RF metronidazole 500 mg tablet 500 mg PO Q8H Qty: 21 0RF oxycodone 5 mg capsule 5 mg PO Q6H PRN (Reason: pain (scale score 7-10)) 3 Days Qty: 12 0RF ondansetron 8 mg tablet,disintegrating 8 mg PO Q8H PRN (Reason: nausea and vomiting) Qty: 14 0RF Rx Instructions: 1st dose 1-2 hr before radiation Continued omeprazole 40 mg capsule,delayed release(DR/EC) 40 mg PO BID sertraline 25 mg tablet 25 mg PO DAILY sucralfate 1 gram Tablet 1 g PO TIDAC 30 Days Qty: 90 0RF pantoprazole [Protonix] 40 mg tablet,delayed release (DR/EC) 40 mg PO BID 30 Days Qty: 60 3RF docusate sodium [Colace] 100 mg capsule 100 mg PO BID Qty: 60 0RF Referrals / Follow Up: EILEEN COONEY CRNP [Primary Care Provider] - Within 2 Weeks Disposition Disposition (needs filled in before D/C Order can be placed): Home, Self Care Charges/Coding Visit Charges Inpatient E&M: 99431 Disch Hosp >30min 07/02/24 1509 <Electronically signed by Patrick Peng DO> Cosigner Signature (if applicable): CC: Dr. Patrick Peng DO; ALCIRA COLBERT~ Signed [facility] Work Phone: [phone]) 120-127404-11-2025 Discharge summary [facility] Medical Records Department [address] [place] [id number] Discharge Summary 07/02/24 1457 MR#: [id number] Acct: [id number] Name: BARRETT LOPEZ Rep #:[id number] : 1975 49 From: Patrick Peng DO PCP: ALCIRA COLBERT Status:ADM IN Location: [place] [address] Providers Date of Admission: 07/02/24 Primary Care Physician: ALCIRA COLBERT Reason For Visit: ACUTE SIGMOID DIVERTICULITIS W/ ABD PAIN, N/V/D/ Diagnosis Discharge Diagnosis (1) Sigmoid diverticulitis: Status: Acute Code(s): K57.32 - Diverticulitis of large intestine without perforation or abscess without bleeding Plan: on pip/tazo tolerated CLD, advance to transitional. If tolerates transitional diet, then would dc home to complete abx. Discharge with cipro and metronidazole. Pain control. Antiemetics. Plan VTE prophylaxis: LMWH Medications at Discharge Home Medications sertraline 25 mg tablet 25 mg PO DAILY 05/02/24 pantoprazole 40 mg tablet,delayed release (Protonix) 40 mg PO BID 30 days #60 tabs 05/03/24 sucralfate 1 gram tablet 1 g PO TIDAC 30 days #90 tabs 05/03/24 docusate sodium 100 mg capsule (Colace) 100 mg PO BID #60 caps 05/30/24 ciprofloxacin HCl 500 mg tablet 500 mg PO BID #14 tabs 07/02/24 metronidazole 500 mg tablet 500 mg PO Q8H #21 tabs 07/02/24 omeprazole 40 mg capsule,delayed release 40 mg PO BID 07/02/24 ondansetron 8 mg disintegrating tablet 8 mg PO Q8H PRN nausea and vomiting #14 tabs 07/02/24 oxycodone 5 mg capsule 5 mg PO Q6H PRN pain (scale score 7-10) 3 days #12 caps 07/02/24 Hospital Course Operations None Procedures None Summary of Care Provided Minutes Spent on Discharge: 32 Hospital Course: Patient presents with diverticulitis. CAT scan showed acute sigmoid diverticulitis. Patient complained of severe abdominal pain but he had no rebound or any guarding. Clinically patient seem to be doing well despite his complaints of severe abdominal pain. He was able to eat without any issues thoug h he has self-reported vomiting but that was not witnessed. Reassurance provided to the patient andwill be discharged with 7-day course of ciprofloxacin and metronidazole as well as pain control andantiemetics. Weight / BMI Weight Weight: 149.096 kg Body Mass Index (BMI) 51.5 ABG / Lab / Microbiology Data 07/02/24 03:40 07/02/24 03:40 Laboratory: Laboratory Results - last 24 hr 07/02/24 03:40: WBC 16.3 H, RBC 5.11, Hgb 13.8, Hct 41.7, MCV 81.6, MCH 27.0, MCHC 33.1, RDW Std Deviation 39.8, RDW Coeff of Mirlande 13.4, Plt Count 375, MPV 9.4, Immature Gran % (Auto) 0.500, Neut % (Auto) 67.3, Lymph % (Auto) 23.7, [place]% (Auto) 6.3, Eos % (Auto) 1.7, Baso % (Auto) 0.5, Absolute Neuts (auto) 11.0 H,Absolute Lymphs (auto) 3.86, Nucleated RBC % 0, Sodium 138, Potassium 3.9, Chloride 99, Carbon Dioxide 24.7, Anion Gap 14, BUN 17, Creatinine 0.97, Estim Creat Clear Calc 132.98, Est GFR (MDRD) Non-Af 97, BUN/Creatinine Ratio 17.0, Glucose 99, Calcium 9.1, Magnesium 2.0, Total Bilirubin 0.40, Direct Bilirubin 0.19, AST 18, ALT 23, Alkaline Phosphatase 122, Total Protein 7.7, Albumin 4.1, Globulin 3.5, Lipase 21, Procalcitonin 0.08, TSH 2.090 07/02/24 04:41: Lactic Acid 1.2 Radiography Diagnostic Testing: Radiology Impression Acute Abdomen Series 07/02/24 03:50 IMPRESSION: Nonobstructive bowel gas pattern Reading Location: [facility] Abdomen/Pelvis CT 07/02/24 04:36 IMPRESSION: *Acute sigmoid colon diverticulitis. *Small fat containing periumbilical hernia. Reading Location: [facility] D/C Instructions Discharge Diet: - (bland, soft diet. Advance as tolerated. ) DC O2, CPAP, BIPAP Needs Home O2 Discharge instructions: No Meaningful Use Info Meaningful Use Meaningful Use Diagnoses (Choose all that apply): None applicable Ischemic Stroke Statin Dosing Therapy Reference: STATIN DOSE THERAPY REFERENCE: * Patients > 75 years receive moderate or high dose statin therapy. * Patients 75 years or YOUNGER should receive HIGH intensity statin dose unless contraindicated. You will be required to document reason for non-treatment if statin daily dose does not meet guidelines. HIGH DOSE STATIN THERAPY DAILY Atorvastatin > than or = to 40 mg Rosuvastatin > than or = to 20 mg Amlodipine + Atorvastatin > than or = to 2.5/40 mg Ezetimibe + Simvastatin 10/80 mg Simvastatin 80mg Discharge Plan Admission Admit Date/Time: 07/02/24 06:06 Primary Reason for Your Visit: diverticulitis Attending Provider: Patrick Peng Primary Care Provider: EILEEN COONEY Consulting Providers: Vic Mercado Instructions Additional Instructions / Restrictions: You have recurrent diverticulitis, but, fortunately, uncomplicated. Take antibiotics as instructed.Do not drink alcohol while on the antibiotics as it may induce vomiting. Return to the ED if you are feeling worse. Discharge Orders/Prescriptions Prescriptions: New ciprofloxacin HCl 500 mg tablet 500 mg PO BID Qty: 14 0RF metronidazole 500 mg tablet 500 mg PO Q8H Qty: 21 0RF oxycodone 5 mg capsule 5 mg PO Q6H PRN (Reason: pain (scale score 7-10)) 3 Days Qty: 12 0RF ondansetron 8 mg tablet,disintegrating 8 mg PO Q8H PRN (Reason: nausea and vomiting) Qty: 14 0RF Rx Instructions: 1st dose 1-2 hr before radiation Continued omeprazole 40 mg capsule,delayed release(DR/EC) 40 mg PO BID sertraline 25 mg tablet 25 mg PO DAILY sucralfate 1 gram Tablet 1 g PO TIDAC 30 Days Qty: 90 0RF pantoprazole [Protonix] 40 mg tablet,delayed release (DR/EC) 40 mg PO BID 30 Days Qty: 60 3RF docusate sodium [Colace] 100 mg capsule 100 mg PO BID Qty: 60 0RF Referrals / Follow Up: EILEEN COONEY CRNP [Primary Care Provider] - Within 2 Weeks Disposition Disposition (needs filled in before D/C Order can be placed): Home, Self Care Charges/Coding Visit Charges Inpatient E&M: 82487 Disch Hosp >30min 07/02/24 1509 Cosigner Signature (if applicable): CC: Dr. Patrick Peng DO; ALCIRA COLBERT~ Signed [facility]04-11-2025 [facility] Progress note Author Patrick Peng [facility] Note Date/Time July 02, 2024 9:3 5am [facility] Medical Records Department [address] [place] [address] Progress Note - Hospitalist 07/02/24 0750 MR#: [id number] Acct: [id number] Name: JOHNBARRETT LAUREN Rep #:[id number] : 1975 49 From: Patrick Peng DO PCP: ALCIRA COLBERT Status:ADM IN Location: [place] [id number] Reason for Visit Reason for Visit: Diagnoses Morbid (severe) obesity due to excess calories (07/02/24) Gastro-esophageal reflux disease without esophagitis (07/02/24) Umbilical hernia without obstruction or gangrene (07/02/24) Diverticulitis of large intestine without perforation or abscess without bleeding (07/02/24) Unspecified abdominal pain (07/02/24) Nausea with vomiting, unspecified (07/02/24) Body mass index [BMI] 50.0-59.9, adult (07/02/24) Personal history of other diseases of the digestive system (07/02/24) Acquired absence of other specified parts of digestive tract (07/02/24) Subjective Subjective Still with significant abdominal pain. Tolerated jello. Objective Data Objective Data Vital Signs: Vital Signs Temp Pulse Resp BP Pulse Ox O2 Del Method 36.5 C L 89 16 115/60 95 Room Air 07/02/24 07:32 07/02/24 07:32 07/02/24 07:32 07/02/24 07:32 07/02/24 07:32 07/02/24 07:32 Oxygen Delivery Method Room Air Weight: 149.096 kg Body Mass Index (BMI) 51.5 Intake & Output: Intake and Output for Last 24 Hours 06/30/24 07/01/24 07/02/24 23:59 23:59 23:59 Intake Total 1160 / 1160 Balance 1160 / 1160 Lab / Micro Data 07/02/24 03:40 07/02/24 03:40 Labs: Laboratory Results - last 24 hr 07/02/24 03:40: WBC 16.3 H, RBC 5.11, Hgb 13.8, Hct 41.7, MCV 81.6, MCH 27.0, MCHC 33.1, RDW Std Deviation 39.8, RDW Coeff of [place]land[place] 13.4, Plt Count 375, MPV 9.4, Immature Gran % (Auto) 0.500, Neut % (Auto) 67.3, Lymph % (Auto) 23.7, [place] % (Auto) 6.3, Eos % (Auto) 1.7, Baso % (Auto) 0.5, Absolute Neuts (auto) 11.0 H, Absolute Lymphs (auto) 3.86, Nucleated RBC % 0, Sodium 138, Potassium 3.9, Chloride 99, Carbon Dioxide 24.7, Anion Gap 14, BUN 17, Creatinine 0.97, Estim Creat Clear Calc 132.98, Est GFR (MDRD) Non-Af 97, BUN/Creatinine Ratio 17.0, Glucose 99, Calcium 9.1, Magnesium 2.0, Total Bilirubin 0.40, Direct Bilirubin 0.19, AST 18, ALT 23, Alkaline Phosphatase 122, Total Protein 7.7, Albumin 4.1, Globulin 3.5, Lipase 21, Procalcitonin 0.08, TSH 2.090 07/02/24 04:41: Lactic Acid 1.2 Radiography Diagnostic Testing: Radiology Impression Acute Abdomen Series 07/02/24 03:50 IMPRESSION: Nonobstructive bowel gas pattern Reading Location: [facility] Abdomen/Pelvis CT 07/02/24 04:36 IMPRESSION: *Acute sigmoid colon diverticulitis. *Small fat containing periumbilical hernia. Reading Location: [facility] Physical Exam Const alert Constitutional Narrative: non-toxic. afebrile. HEENT head/scalp atraumatic GI GI Narrative: obese. Soft. TTP in LLQ. No rebound tenderness. no guarding. Assessment & Plan Assessment/Plan (1) Sigmoid diverticulitis: PLAN: on pip/tazo tolerated CLD, advance to transitional. If tolerates transitional diet, then would dc home to complete abx. PLAN: Plan VTE prophylaxis: LMWH Charges/Coding Visit Charges Inpatient E&M: 39718 Subs Hosp L1 07/02/24 0985 <Electronically signed by Patrick Peng DO> Cosigner Signature (if applicable): CC: ~ Signed [facility] Work Phone: 1(843) 620-104304-11-2025 Progress note [facility] Medical Records Department [address] [place] [address] Progress Note - Hospitalist 07/02/24 8700 MR#: [id number] Acct: [id number] Name: BARRETT LOPEZ Rep #:[id number] : 1975 49 From: Patrick Peng DO PCP: ALCIRA COLBERT Status:ADM [place] [facility] [id number] Reason for Visit Reason for Visit: Diagnoses Morbid (severe) obesity due to excess calories (07/02/24) Gastro-esophageal reflux disease without esophagitis (07/02/24) Umbilical hernia without obstruction or gangrene (07/02/24) Diverticulitis of large intestine without perforation or abscess without bleeding (07/02/24) Unspecified abdominal pain (07/02/24) Nausea with vomiting, unspecified (07/02/24) Body mass index [BMI] 50.0-59.9, adult (07/02/24) Personal history of other diseases of the digestive system (07/02/24) Acquired absence of other specified parts of digestive tract (07/02/24) Subjective Subjective Still with significant abdominal pain. Tolerated jello. Objective Data Objective Data Vital Signs: Vital Signs Temp Pulse Resp BP Pulse Ox O2 Del Method 36.5 C L 89 16 115/60 95 Room Air 07/02/24 07:32 07/02/24 07:32 07/02/24 07:32 07/02/24 07:32 07/02/24 07:32 07/02/24 07:32 Oxygen Delivery Method Room Air Weight: 149.096 kg Body Mass Index (BMI) 51.5 Intake & Output: Intake and Output for Last 24 Hours 06/30/24 07/01/24 07/02/24 23:59 23:59 23:59 Intake Total 1160 / 1160 Balance 1160 / 1160 Lab / Micro Data 07/02/24 03:40 07/02/24 03:40 Labs: Laboratory Results - last 24 hr 07/02/24 03:40: WBC 16.3 H, RBC 5.11, Hgb 13.8, Hct 41.7, MCV 81.6, MCH 27.0, MCHC 33.1, RDW Std Deviation 39.8, RDW Coeff of Mirlande 13.4, Plt Count 375, MPV 9.4, Immature Gran % (Auto) 0.500, Neut % (Auto) 67.3, Lymph % (Auto) 23.7, [place] % (Auto) 6.3, Eos % (Auto) 1.7, Baso % (Auto) 0.5, Absolute Neuts (auto) 11.0 H, Absolute Lymphs (auto) 3.86, Nucleated RBC % 0, Sodium 138, Potassium 3.9, Chloride 99, Carbon Dioxide 24.7, Anion Gap 14, BUN 17, Creatinine 0.97, Estim Creat Clear Calc 132.98, EstGFR (MDRD) Non-Af 97, BUN/Creatinine Ratio 17.0, Glucose 99, Calcium 9.1, Magnesium 2.0, Total Bilirubin 0.40, Direct Bilirubin 0.19, AST 18, ALT 23, Alkaline Phosphatase 122, Total Protein 7.7, Albumin 4.1, Globulin 3.5, Lipase 21, Procalcitonin 0.08, TSH 2.090 07/02/24 04:41: Lactic Acid 1.2 Radiography Diagnostic Testing: Radiology Impression Acute Abdomen Series 07/02/24 03:50 IMPRESSION: Nonobstructive bowel gas pattern Reading Location: [facility] Abdomen/Pelvis CT 07/02/24 04:36 IMPRESSION: *Acute sigmoid colon diverticulitis. *Small fat containing periumbilical hernia. Reading Location: [facility] Physical Exam Const alert Constitutional Narrative: non-toxic. afebrile. HEENT head/scalp atraumatic GI GI Narrative: obese. Soft. TTP in LLQ. No rebound tenderness. no guarding. Assessment & Plan Assessment/Plan (1) Sigmoid diverticulitis: PLAN: on pip/tazo tolerated CLD, advance to transitional. If tolerates transitional diet, then would dc home to complete abx. PLAN: Plan VTE prophylaxis: LMWH Charges/Coding Visit Charges Inpatient E&M: 79525 Subs Hosp L1 07/02/24 0935 Cosigner Signature (if applicable): CC: ~ Signed [facility]04-11-2025 History and physical note Author Vic Cosme [facility] Note Date/Time July 02, 2024 6:3 7am [facility] Medical Records Department [address] [place] [address] H&P Exam - Hospitalist 07/02/24 0533 MR#: [id number] Acct: [id number] Name: BARRETT LOPEZ Rep #:[id number] : 1975 49 From: Vic Dotson DO PCP: ALCIRA COLBERT Status:REG ER Location: ED HPI - General General Date of Admission: 07/02/24 Date of Service: 07/02/24 Chief Complaint: Abdominal Pain with Nausea and Vomiting. HPI Narrative BARRETT LOPEZ, is a 49 M with a past medical history of essential hypertension; currently not on treatment, super-morbid obesity; with BMI of 52 this admission,history of AR, history of CVA, GERD; with history of gastritis and PUD on pantoprazole BID and sucralfate TID followed by Dr. White of gastroenterology, history of mesenteric adenitis, history of diverticulitis; s/p partial bowel resection (~2018), history of cholecystectomy, history of appendectomy, history of foot surgery, history of hand surgery, depression with anxiety; on sertralineand OA; with history of MCL sprain of the Right knee; s/p arthroscopy plus chronic back pain who presents to [facility] ER complaining of abdominal pain, nausea and vomiting. Mr. Lopez reports his symptoms began approximately 1 week prior to admission witha gradual-onset of increasingly intense, sharp, stabbing intermittently severe abdominal pain that is mainly focused in his mid epigastric area and LUQ with subsequent nausea and 1 episode of bilious emesis. He actually came to the ER on June 25, 2024 and was worked up with abdominal x-rays revealing no acute pathologic changes with mild Leukocytosis of 13K and otherwise unremarkable laboratory studies and he was discharged home to follow-up with his primary carephysician. He returns tonight complaining of worsening of his previous symptoms. He denies associated fever, chills, changes in vision, runny nose, sore throat, chest pain, shortness of breath, dysuria, hematuria, arthralgias, myalgias, headache or rash. In the ER he was noted to have leukocytosis of 16.3K present on admission with corresponding CT evidence of Acute Sigmoid Diverticulitis along with an incidentally noted small fat-containing periumbilical hernia and he was then admitted to the general medical floor for ongoing care for a stay that is expected to extend beyond 2 midnights. [facility] Medical History (Updated 07/02/24 @ 06:[address] Vic Mercado DO) History of stroke History of AR (myocardial infarction) Anxiety and depression Morbid obesity Hypertension Diverticulitis large intestine Home Medications ?Medication ?Instructions ?Recorded ?Last Taken ?Type ondansetron HCl 4 mg tablet 4 mg PO Q6H PRN nausea and vomiting 05/02/24 Unknown History sertraline 25 mg tablet 25 mg PO DAILY 05/02/240 12/16 History pantoprazole 40 mg tablet,delayed 40 mg PO BID 30 days #60 tabs 05/03/24 Unknown Rx release (Protonix) sucralfate 1 gram tablet 1 g PO TIDAC 30 days #90 tab s 05/03/24 Unknown Rx docusate sodium 100 mg capsule 100 mg PO BID #60 caps 05/30/24 Unknown Rx (Colace) oxycodone-acetaminophen 5 mg-325 1 tab PO Q6H PRN PRN Pain 3 days 05/30/24 Unknown Rx mg tablet #12 TABLETS promethazine 25 mg tablet 25 mg PO Q6H PRN nausea and 05/30/24 Unknown Rx vomiting #10 tabs oxycodone 5 mg tablet 5 mg PO Q6H PRN pain 3 days #12 06/25/24 Unknown Rx tabs pantoprazole 40 mg tablet,delayed 40 mg PO DAILY 30 da ys #30 tabs 06/25/24 Unknown Rx release (Protonix) sucralfate 1 gram tablet (Carafate) 1 g PO TID 30 days #90 tabs 06/25/24 Unknown Rx omeprazole 40 mg capsule,delayed 40 mg PO BID 07/02/24 Unknown History release Allergy/AdvReac Type Severity Reaction Status Date / Time morphine Allergy Mild Rash Verified 07/02/24 03:18 acetaminophen (From Vicodin) Allergy Rash Verified 07/02/24 03:18 codeine Allergy Anaphylaxis Verified 07/02/24 03:18 hydrocodone bitartrate (From Allergy Rash Verified 07/02/24 03:18 Vicodin) latex Allergy Swelling Verified 07/02/24 03:18 naproxen Allergy Hives Verified 07/02/24 03:18 ondansetron (From Zofran (as AdvReac Nausea Verified 07/02/24 03:18 hydrochloride)) Family History Mother Cancer Father Brain aneurysm Surgical History (Updated 07/02/24 @ 06:[address] Vic Mercado DO) History of bowel resection Hx of hand surgery Hx of foot surgery Hx of arthroscopy of right knee History of tonsillectomy and adenoidectomy Hx of cholecystectomy Hx of appendectomy Social History household members: spouse Smoking Status: Never smoker alcohol intake: never substance use type: does not use ROS ROS Narrative Review of Systems: Constitutional: Patient denies fever or chills. Eyes: Patient denies change in vision or discharge from eyes. ENT: Patient denies runny nose, sore throat or ear pain. Resp: Patient denies shortness of breath or cough. CV: Patient denies chest pain, palpitations, heart racing or lower extremity edema. GI: Patient admits to abdominal pain with nausea, vomiting and bilious emesis asper HPI. He denies diarrhea. : Patient denies dysuria, hematuria or urinary frequency. MSK: Patient denies arthralgias or myalgias. Skin: Patient denies rash, abscess, wounds or jaundice. Psych: Patient denies symptoms of uncontrolled depression or anxiety. Neuro: Patient denies headache, paresthesias or focal neurologic deficits. Allergy: Patient denies lip swelling, tongue swelling or urticaria. Hematology: Patient denies easy bleeding or easy bruisability. Endocrinology: Patient denies polyuria, polydipsia, polyphagia or heat/cold intolerance. 14 point ROS otherwise negative except for positives noted above in HPI. Vital Signs Vital Signs Vital Signs: 07/02/24 03:15 07/02/24 05:14 Temperature 98.0 F Temperature Source Oral Pulse Rate 109 H 99 Respiratory Rate 20 H 18 Blood Pressure 127/100 H 128/68 H Blood Pressure Mean 109 88 Pulse Ox 98 95 Oxygen Delivery Method Room Air Room Air Weight Weight: 331 lb 12.731 oz Body Mass Index (BMI) 52.0 Physical Exam Const alert and oriented x3 Constitutional Narrative: Mild distress noted and morbidly obese patient. General Appearance: cooperative HEENT normocephalic, head/scalp atraumatic and hearing grossly normal bilaterally HEENT Narrative: Mucous membranes dry. Eyes PERRL and EOMs intact bilaterally Neck no lymphadenopathy and supple Resp normal respiratory effort, no retractions, no use of accessory muscles and clearto auscultation bilaterally Cardio regular rate and regular rhythm GI normal to inspection, nondistended, normoactive bowel sounds and soft to palpation GI Narrative: Patient noted to be tender in epigastrium and Left-side of his abdomen with no guarding or rebound. Auscultation: hypoactive bowel sounds Extremity normal to inspection, full ROM and no clubbing, cyanosis or edema Skin Skin Narrative: Patient has evidence of rash, abscess, wounds or jaundice. Neuro oriented x3, CN's II-XII intact bilaterally, moves all extremities and no focal motor deficits Sensorium / Orientation: awake, alert, oriented to person, oriented to place andoriented to time Speech: speech normal Psych affect normal Results Medical Records Data Attestation: I reviewed the patient's medical records Lab / Micro Data Attestation: I reviewed the patient's lab results. 07/02/24 03:40 07/02/24 03:40 Labs: Laboratory Results - last 24 hr 07/02/24 03:40: WBC 16.3 H, RBC 5.11, Hgb 13.8, Hct 41.7, MCV 81.6, MCH 27.0, MCHC 33.1, RDW Std Deviation 39.8, RDW Coeff of Mirlande 13.4, Plt Count 375, MPV 9.4, Immature Gran % (Auto) 0.500, Neut % (Auto) 67.3, Lymph % (Auto) 23.7, [place]% (Auto) 6.3, Eos % (Auto) 1.7, Baso % (Auto) 0.5, Absolute Neuts (auto) 11.0 H,Absolute Lymphs (auto) 3.86, Nucleated RBC % 0, Sodium 138, Potassium 3.9, Chloride 99, Carbon Dioxide 24.7, Anion Gap 14, BUN 17, Creatinine 0.97, Estim Creat Clear Calc 132.98, Est GFR (MDRD) Non-Af 97, BUN/Creatinine Ratio 17.0, Glucose 99, Calcium 9.1, Total Bilirubin 0.40, Direct Bilirubin 0.19, AST 18, ALT 23, Alkaline Phosphatase 122, Total Protein 7.7, Albumin 4.1, Globulin 3.5, Lipase 21 07/02/24 04:41: Lactic Acid 1.2 Imaging Radiology Impression Acute Abdomen Series 07/02/24 03:50 IMPRESSION: Nonobstructive bowel gas pattern Reading Location: [facility] Abdomen/Pelvis CT 07/02/24 04:36 IMPRESSION: *Acute sigmoid colon diverticulitis. *Small fat containing periumbilical hernia. Reading Location: [facility] Assessment & Plan Assessment/Plan (1) Sigmoid diverticulitis: (2) Intractable abdominal pain: (3) Nausea and vomiting: QUALIFIERS: Vomiting type: unspecified Qualified Code(s): R11.2 -Nausea with vomiting, unspecified (4) Periumbilical hernia: (5) History of diverticulitis: (6) History of bowel resection: (7) GERD (gastroesophageal reflux disease): QUALIFIERS: Esophagitis presence: esophagitis presence not specified Qualified Code(s): K21.9 - Gastro-esophageal reflux disease without esophagitis (8) Morbid obesity with BMI of 50.0-59.9, adult: PLAN: Plan 1. CT evidence of Acute Sigmoid Diverticulitis with Leukocytosis of 16.3 K present on admission with severe Abdominal Pain, Nausea, Vomiting with bilious emesis - Admit to general medical floor. Continue empiric IV piperacillin-tazobactam begun in ER. Keep n.p.o. and resume IV pantoprazole for GI prophylaxis. Give IV metoclopramide 3 times daily for nausea and vomiting givenpatient's listed allergy to ondansetron. Place scopolamine patch 1.5 mg topicalevery 72 hours. Give ketorolac IV as needed for [id number] (level 1-5/10)pain or fever given patient's listed allergy to acetaminophen. Give IV hydromorphone as needed for severe (level 6-10/10) pain. 2. Small fat-containing periumbilical hernia incidentally noted on CT this admission complicating #1 - Stable with no need for surgical intervention at this time. 3. History of diverticulitis; s/p partial bowel resection (~2018) compounding #1 & #2 - Noted. 4. GERD; with history of gastritis and PUD on pantoprazole BID and sucralfate TID followed by Dr. White of gastroenterology adding to the medical complexity of #1 - #3 - Continue IV pantoprazole as outlined in #1. Patient will likely need outpatient consultation with EGD after he completes treatment this admission. 5. Super-morbid obesity; with BMI of 52 this admission adding to the burden of disease outlined from #1 - #4 - Weight loss will be recommended. Check TSH. This complicates his case and may hamper recovery. 6. Essential hypertension; currently not on treatment - Give hydralazine IV as needed for systolic blood pressure greater than 160 mmHg. 7. History of AR - Patient reported and noted. 8. History of CVA - Noted with no signs of any residual deficits. 9. History of mesenteric adenitis - Noted. 10. History of cholecystectomy - Noted. 11. History of appendectomy - Noted. 12. History of foot surgery - Noted. 13. History of hand surgery - Noted. 14. Depression with anxiety; on sertraline - Maintain current regimen. 15. OA; with history of MCL sprain of the Right knee; s/p arthroscopy plus chronic back pain - We we will follow pain regimen and scale as outlined in #1. 16. DVT prophylaxis - Enoxaparin 40 mg SQ twice daily plus SCD's. Total time: Approximately (but not less than) 75 minutes. Charges/Coding Visit Charges Inpatient E&M: 06674 Init Hosp L3 07/02/24 0637 <Electronically signed by Vic Mercado DO> Cosigner Signature (if applicable): CC: Dr. Vic Mercado DO; ALCIRA COLBERT~ Signed [facility] Work Phone: 1(863) 314-293904-11-2025 Discharge summary Author Marv Pack [facility] Note Date/Time July 02, 2024 5:5 1am [facility] Medical Records Department [address] [place] [address] Emergency Department Summary 07/02/24 MR#: [id number] Acct: [id number] Name: BARRETT LOPEZ Rep #:[id number] : 1975 49 From: Marv Pack DO PCP: ALCIRA COLBERT Status:REG ER Location: ED HPI History of Present Illness Chief Complaint: Abd Pain Informant: patient and spouse/S.O. Narrative Narrative: Patient is a 49-year-old male with past medical history of diverticulitis requiring colon resection around 2019 as well as hypertension and ulcers. He was seen roughly 1 week ago secondary to abdominal pain. At that time his x-rayrevealed no signs of perforation or obstruction and lab work showed mild elevation to his white count but the remainder of his labs are normal and after pain medication he had resolution of symptoms and was discharged home. Patient reports he was doing well and followed up with a general surgeon on an outpatient basis on Friday. Reportedly he received a steroid injection in the upper abdomen where he has had recurrent pain and was advised that he will schedule a EGD for further evaluation of his symptoms. He states this evening he got up to use the bathroom and after doing so developed increasing upper abdominal pain and a bout of vomiting. He states that the pain has not improvedsince its onset and secondary to this he comes in for evaluation [facility] Medical History History of stroke History of AR (myocardial infarction) Anxiety and depression Morbid obesity Hypertension Diverticulitis large intestine Home Medications ?Medication ?Instructions ?Recorded ?Last Taken ?Type ondansetron HCl 4 mg tablet 4 mg PO Q6H PRN nausea and vomiting 05/02/24 Unknown History sertraline 25 mg tablet 25 mg PO DAILY 05/02/2412/16 History pantoprazole 40 mg tablet,delayed 40 mg PO BID 30 days #60 tabs 05/03/24 Unknown Rx release (Protonix) sucralfate 1 gram tablet 1 g PO TIDAC 30 days #90 tab s 05/03/24 Unknown Rx docusate sodium 100 mg capsule 100 mg PO BID #60 caps 05/30/24 Unknown Rx (Colace) oxycodone-acetaminophen 5 mg-325 1 tab PO Q6H PRN PRN Pain 3 days 05/30/24 Unknown Rx mg tablet #12 TABLETS promethazine 25 mg tablet 25 mg PO Q6H PRN nausea and 05/30/24 Unknown Rx vomiting #10 tabs oxycodone 5 mg tablet 5 mg PO Q6H PRN pain 3 days #12 06/25/24 Unknown Rx tabs pantoprazole 40 mg tablet,delayed 40 mg PO DAILY 30 da ys #30 tabs 06/25/24 Unknown Rx release (Protonix) sucralfate 1 gram tablet (Carafate) 1 g PO TID 30 days #90 tabs 06/25/24 Unknown Rx omeprazole 40 mg capsule,delayed 40 mg PO BID 07/02/24 Unknown History release Allergy/AdvReac Type Severity Reaction Status Date / Time morphine Allergy Mild Rash Verified 07/02/24 03:18 acetaminophen (From Vicodin) Allergy Rash Verified 07/02/24 03:18 codeine Allergy Anaphylaxis Verified 07/02/24 03:18 hydrocodone bitartrate (From Allergy Rash Verified 07/02/24 03:18 Vicodin) latex Allergy Swelling Verified 07/02/24 03:18 naproxen Allergy Hives Verified 07/02/24 03:18 ondansetron (From Zofran (as AdvReac Nausea Verified 07/02/24 03:18 hydrochloride)) Family History Mother Cancer Father Brain aneurysm Surgical History History of bowel resection Hx of hand surgery Hx of foot surgery Hx of arthroscopy of right knee History of tonsillectomy and adenoidectomy Hx of cholecystectomy Hx of appendectomy Social History household members: spouse Smoking Status: Never smoker alcohol intake: never substance use type: does not use ROS ROS ED Constitutional Constitutional ED: Denies chills or fever(s) Eyes Eyes: Denies change in vision ENT ENT ED: Denies sore throat Cardiovascular Cardiovascular: Denies chest pain Respiratory/Chest Respiratory/Chest: Denies cough or dyspnea Gastrointestinal Gastrointestinal: Reports abdominal pain, nausea and vomiting; Denies diarrhea Genitourinary Genitourinary ED: Denies dysuria Musculoskeletal Musculoskeletal: Denies back pain Integumentary Denies rash Neurologic Neurologic: Denies headache(s) Hematologic/Lymphatic Hematologic/Lymphatic: Denies easy bleeding or easy bruising EXAM Physical Exam Const Vital Signs: 07/02/24 03:15 07/02/24 05:14 Temperature 98.0 F Temperature Source Oral Pulse Rate 109 H 99 Respiratory Rate 20 H 18 Blood Pressure 127/100 H 128/68 H Blood Pressure Mean 109 88 Pulse Ox 98 95 Oxygen Delivery Method Room Air Room Air Positive well nourished, well developed and obese General Appearance ED: well developed; Negative for pallor Nutritional Appearance: obese HEENT Reports moist mucous membranes HEENT Narrative: No tongue or lip swelling no oral lesions no airway edema or compromise Eyes PERRL and EOMs intact bilaterally General Eye ED: Negative for scleral icterus Neck supple Resp normal respiratory effort and clear to auscultation bilaterally Cardio regular rhythm Rate: tachycardic and other Other Details: Slightly tachycardic rate with regular rhythm Radial and carotid pulses are equal and symmetric GI GI Narrative: Abdomen is soft but slightly distended. Bowel sounds are hypoactive. There is pain with palpation diffusely but greatest in the midepigastric to left upper quadrant region. No increased tympany. No pulsatile mass. No fluid wave. Patient does have a known umbilical hernia but it feels reducible in nature. Auscultation: hypoactive bowel sounds Palpation: soft Back/Spine no CVA tenderness Extremity normal to inspection Neuro oriented x3, CN's II-XII intact bilaterally and no sensory deficits noted Sensorium / Orientation: alert Motor Exam: strength 5/5 throughout Psych Mood & Affect: anxious Skin no rashes or lesions noted and no wounds General Skin Exam: Negative for jaundice or pallor MDM MDM MDM Narrative Medical decision making narrative: Patient arrived to the ER hypertensive and slightly tachycardic but afebrile. He was seen 1 week ago for similar symptoms and workup revealed no obvious findings. He also reports he was just seen by the general surgeon on Friday and is reportedly being set up for a EGD to further assess the cause of his recurrent belly pain. With the return of pain in the midepigastric to left upper quadrant region there is concern for gastritis versus gastric perforation versus colitis versus pancreatitis versus incarcerated hernia versus obstruction. The skin exam did not show any erythema or warmth or signs of cellulitis or abscess. With concern for underlying intestinal pathology basic blood work and with an acute abdominal series x-ray was obtained. X-ray revealed no signs of obstruction or perforation. Patient's blood work revealed leukocytosis at 16 which is elevated from the previous week and he also has leftshift with his absolute neutrophil count elevated at 11. Based on the increasedwhite blood cell count and left shift I did elect to perform a CT scan and add alactic acid and procalcitonin values to check for systemic infection. The patient CT scan revealed no signs of perforation or obstruction but did note changes along the sigmoid colon concerning for diverticulitis. Secondary to this he was started on Zosyn. He has received IV Protonix as well as IV Reglan to cover for potential gastritis/ulcer versus gastroparesis and these medications did minimal for pain relief. He was then medicated with IV Dilaudidas well as IV fentanyl. After receiving these medications he did have improvement of his pain and with this his vitals improved. However he still reported significant pain on repeat evaluation. As the patient is not hypotensive tachycardic or febrile and his lactic acid is normal he does not qualify as sepsis and without abscess or perforation this is uncomplicated diverticulitis. However because of the recurrent nature of his symptoms and thefact he has had previous colonic resection and is complaining of persistent painI do not feel that he would do well at home on oral antibiotics. Therefore discussed the case with the hospitalist who agrees to accept the patient for continued pain control and IV antibiotics. This plan of care was discussed withthe patient who is agreeable to it and therefore he will be admitted for furthercare History & Record Review Discussion w/independent historian: Patient and Significant other Lab Data Attestation: I reviewed the patient's lab results. Labs: Laboratory Results - last 24 hr 07/02/24 07/02/24 03:40 04:41 WBC 16.3 H RBC 5.11 Hgb 13.8 Hct 41.7 MCV 81.6 MCH 27.0 MCHC 33.1 RDW Std Deviation 39.8 RDW Coeff of Mirlande 13.4 Plt Count 375 MPV 9.4 Immature Gran % (Auto) 0.500 Neut % (Auto) 67.3 Lymph % (Auto) 23.7 [place] % (Auto) 6.3 Eos % (Auto) 1.7 Baso % (Auto) 0.5 Absolute Neuts (auto) 11.0 H Absolute Lymphs (auto) 3.86 Nucleated RBC % 0 Sodium 138 Potassium 3.9 Chloride 99 Carbon Dioxide 24.7 Anion Gap 14 BUN 17 Creatinine 0.97 Estim Creat Clear Calc 132.98 Est GFR (MDRD) Non-Af 97 BUN/Creatinine Ratio 17.0 Glucose 99 Lactic Acid 1.2 Calcium 9.1 Total Bilirubin 0.40 Direct Bilirubin 0.19 AST 18 ALT 23 Alkaline Phosphatase 122 Total Protein 7.7 Albumin 4.1 Globulin 3.5 Lipase 21 Radiography Diagnostic Testing: Clinical Impression(s) from Imaging Studies Acute Abdomen Series 07/02/24 03:50 IMPRESSION: Nonobstructive bowel gas pattern Reading Location: [facility] Abdomen/Pelvis CT 07/02/24 04:36 IMPRESSION: *Acute sigmoid colon diverticulitis. *Small fat containing periumbilical hernia. Reading Location: [facility] Acute abdominal series with 1 view chest as interpreted by the emergency medicine physician reveals a nonobstructive nonspecific bowel gas pattern without free air to suggest perforation and chest x-ray component reveals no acute infiltrate Management Discussion w/another healthcare provider: Hospitalist Discharge Plan Triage Chief Complaint: Abd Pain ED Provider: Marv Pack Dx/Rx/DC Orders Clinical Impression: Sigmoid diverticulitis, Hypertension, Morbid obesity, Intractable abdominal pain Prescriptions: No Action sucralfate [Carafate] 1 gram tablet 1 g PO TID 30 Days Qty: 90 0RF pantoprazole [Protonix] 40 mg tablet,delayed release (DR/EC) 40 mg PO DAILY 30 Days Qty: 30 0RF oxycodone 5 mg tablet 5 mg PO Q6H PRN (Reason: pain) 3 Days Qty: 12 0RF omeprazole 40 mg capsule,delayed release(DR/EC) 40 mg PO BID ondansetron HCl 4 mg tablet 4 mg PO Q6H PRN (Reason: nausea and vomiting) Patient Comments: [NO ORIGINAL SIG] sertraline 25 mg tablet 25 mg PO DAILY sucralfate 1 gram Tablet 1 g PO TIDAC 30 Days Qty: 90 0RF pantoprazole [Protonix] 40 mg tablet,delayed release (DR/EC) 40 mg PO BID 30 Days Qty: 60 3RF oxycodone-acetaminophen 5-325 mg tablet 1 tab PO Q6H PRN PRN (Reason: Pain) 3 Days Qty: 12 0RF docusate sodium [Colace] 100 mg capsule 100 mg PO BID Qty: 60 0RF promethazine 25 mg tablet 25 mg PO Q6H PRN (Reason: nausea and vomiting) Qty: 10 0RF Primary Care Provider: EILEEN COONEY Referrals: EILEEN COONEY CRNP [Primary Care Provider] - Print Language: Kuwaiti Disposition Disposition: Acute Care Hospital [facility] What to do if you have Problems For any increased pain, shortness of breath, bleeding, nausea or vomiting, chestpain, or any unexpected problems, contact your Primary Care Provider. Call [facility] ([phone]) or report to the closest Emergency Room. Call 911 if necessary. 07/02/24 0551 <Electronically signed by Marv Pack DO> Cosigner Signature (if applicable): CC: ALCIRA COLBERT ~ Signed [facility] Work Phone: [phone] History and physical note [facility] Medical Records Department [address] [place] [address] H&P Exam - Hospitalist 07/02/24 0533 MR#: [id number] Acct: [id number] Name: BARRETT LOPEZ Rep #:[id number] : 1975 49 From: Vic Dotson DO PCP: ALCIRA COLBERT Status:REG ER Location: ED HPI - General General Date of Admission: 07/02/24 Date of Service: 07/02/24 Chief Complaint: Abdominal Pain with Nausea and Vomiting. HPI Narrative BARRETT LOPEZ, is a 49 M with a past medical history of essential hypertension; currently not on treatment, super-morbid obesity; with BMI of 52 this admission,history of AR, history of CVA, GERD; withhistory of gastritis and PUD on pantoprazole BID and sucralfate TID followed by Dr. White of gastro enterology, history of mesenteric adenitis, history of diverticulitis; s/p partial bowel resection (~2019), history of cholecystectomy, history of appendectomy, history of foot surgery, history of hand surgery, depression with anxiety; on sertralineand OA; with history of MCL sprain of the Right knee; s/p arthroscopy plus chronic back pain who presents to [facility] ER complainingof abdominal pain, nausea and vomiting. Mr. Lopez reports his symptoms began approximately 1 week prior to admission witha gradual-onset of increasingly intense, sharp, stabbing intermittently severe abdominal pain that is mainly focused inhis mid epigastric area and LUQ with subsequent nausea and 1 episode of bilious emesis. He actuallycame to the ER on June 25, 2024 and was worked up with abdominal x-rays revealing no acute pathologic changes with mild Leukocytosis of 13K and otherwise unremarkable laboratory studies and he was discharged home to follow-up with his primary carephysician. He returns tonight complaining of worsening of his previous symptoms. He denies associated fever, chills, changes in vision, runny nose, sorethroat, chest pain, shortness of breath, dysuria, hematuria, arthralgias, myalgias, headache or rash. In the ER he was noted to have leukocytosis of 16.3K present on admission with corresponding CT evidence of Acute Sigmoid Diverticulitis along with an incidentally noted small fat-containing periumb ilical hernia and he was then admitted to the general medical floor for ongoing care for a stay that is expected to extend beyond 2 midnights. [facility] Medical History (Updated 07/02/24 @ 06:[address] Vic Mercado, DO) History of stroke History of AR (myocardial infarction) Anxiety and depression Morbid obesity Hypertension Diverticulitis large intestine Home Medications ?Medication ?Instructions ?Recorded ?Last Taken ?Type ondansetron HCl 4 mg tablet 4 mg PO Q6H PRN nausea and vomiting 05/02/24 Unknown History sertraline 25 mg tablet 25 mg PO DAILY 05/02/2412/16 History pantoprazole 40 mg tablet,delayed 40 mg PO BID 30 days #60 tabs 05/03/24 Unknown Rx release (Protonix) sucralfate 1 gram tablet 1 g PO TIDAC 30 days #90 tab s 05/03/24 Unknown Rx docusate sodium 100 mg capsule 100 mg PO BID #60 caps 05/30/24 Unknown Rx (Colace) oxycodone-acetaminophen 5 mg-325 1 tab PO Q6H PRN PRN Pain 3 days 05/30/24 Unknown Rx mg tablet #12 TABLETS promethazine 25 mg tablet 25 mg PO Q6H PRN nausea and 05/30/24 Unknown Rx vomiting #10 tabs oxycodone 5 mg tablet 5 mg PO Q6H PRN pain 3 days #12 06/25/24 Unknown Rx tabs pantoprazole 40 mg tablet,delayed 40 mg PO DAILY 30 da ys #30 tabs 06/25/24 Unknown Rx release (Protonix) sucralfate 1 gram tablet (Carafate) 1 g PO TID 30 days #90 tabs 06/25/24 Unknown Rx omeprazole 40 mg capsule,delayed 40 mg PO BID 07/02/24 Unknown History release Allergy/AdvReac Type Severity Reaction Status Date / Time morphine Allergy Mild Rash Verified 07/02/24 03:18 acetaminophen (From Vicodin) Allergy Rash Verified 07/02/24 03:18 codeine Allergy Anaphylaxis Verified 07/02/24 03:18 hydrocodone bitartrate (From Allergy Rash Verified 07/02/24 03:18 Vicodin) latex Allergy Swelling Verified 07/02/24 03:18 naproxen Allergy Hives Verified 07/02/24 03:18 ondansetron (From Zofran (as AdvReac Nausea Verified 07/02/24 03:18 hydrochloride)) Family History Mother Cancer Father Brain aneurysm Surgical History (Updated 07/02/24 @ 06:[address] Vic Mercado DO) History of bowel resection Hx of hand surgery Hx of foot surgery Hx of arthroscopy of right knee History of tonsillectomy and adenoidectomy Hx of cholecystectomy Hx of appendectomy Social History household members: spouse Smoking Status: Never smoker alcohol intake: never substance use type: does not use ROS ROS Narrative Review of Systems: Constitutional: Patient denies fever or chills. Eyes: Patient denies change in vision or discharge from eyes. ENT: Patient denies runny nose, sore throat or ear pain. Resp: Patient denies shortness of breath or cough. CV: Patient denies chest pain, palpitations, heart racing or lower extremity edema. GI: Patient admits to abdominal pain with nausea, vomiting and bilious emesis asper HPI. He denies diarrhea. : Patient denies dysuria, hematuria or urinary frequency. MSK: Patient denies arthralgias or myalgias. Skin: Patient denies rash, abscess, wounds or jaundice. Psych: Patient denies symptoms of uncontrolled depression or anxiety. Neuro: Patient denies headache, paresthesias or focal neurologic deficits. Allergy: Patient denies lip swelling, tongue swelling or urticaria. Hematology: Patient denies easy bleeding or easy bruisability. Endocrinology: Patient denies polyuria, polydipsia, polyphagia or heat/cold intolerance. 14 point ROS otherwise negative except for positives noted above in HPI. Vital Signs Vital Signs Vital Signs: 07/02/24 03:15 07/02/24 05:14 Temperature 98.0 F Temperature Source Oral Pulse Rate 109 H 99 Respiratory Rate 20 H 18 Blood Pressure 127/100 H 128/68 H Blood Pressure Mean 109 88 Pulse Ox 98 95 Oxygen Delivery Method Room Air Room Air Weight Weight: 331 lb 12.731 oz Body Mass Index (BMI) 52.0 Physical Exam Const alert and oriented x3 Constitutional Narrative: Mild distress noted and morbidly obese patient. General Appearance: cooperative HEENT normocephalic, head/scalp atraumatic and hearing grossly normal bilaterally HEENT Narrative: Mucous membranes dry. Eyes PERRL and EOMs intact bilaterally Neck no lymphadenopathy and supple Resp normal respiratory effort, no retractions, no use of accessory muscles and clearto auscultation bilaterally Cardio regular rate and regular rhythm GI normal to inspection, nondistended, normoactive bowel sounds and soft to palpation GI Narrative: Patient noted to be tender in epigastrium and Left-side of his abdomen with no guarding or rebound. Auscultation: hypoactive bowel sounds Extremity normal to inspection, full ROM and no clubbing, cyanosis or edema Skin Skin Narrative: Patient has evidence of rash, abscess, wounds or jaundice. Neuro oriented x3, CN's II-XII intact bilaterally, moves all extremities and no focal motor deficits Sensorium / Orientation: awake, alert, oriented to person, oriented to place andoriented to time Speech: speech normal Psych affect normal Results Medical Records Data Attestation: I reviewed the patient's medical records Lab / Micro Data Attestation: I reviewed the patient's lab results. 07/02/24 03:40 07/02/24 03:40 Labs: Laboratory Results - last 24 hr 07/02/24 03:40: WBC 16.3 H, RBC 5.11, Hgb 13.8, Hct 41.7, MCV 81.6, MCH 27.0, MCHC 33.1, RDW Std Deviation 39.8, RDW Coeff of Mirlande 13.4, Plt Count 375, MPV 9.4, Immature Gran % (Auto) 0.500, Neut % (Auto) 67.3, Lymph % (Auto) 23.7, [place]% (Auto) 6.3, Eos % (Auto) 1.7, Baso % (Auto) 0.5, Absolute Neuts (auto) 11.0 H,Absolute Lymphs (auto) 3.86, Nucleated RBC % 0, Sodium 138, Potassium 3.9, Chloride 99, Carbon Dioxide 24.7, Anion Gap 14, BUN 17, Creatinine 0.97, Estim Creat Clear Calc 132.98, Est GFR (MDRD) Non-Af 97, BUN/Creatinine Ratio 17.0, Glucose 99, Calcium 9.1, Total Bilirubin 0.40, Direct Bilirubin 0.19, AST 18, ALT 23, Alkaline Phosphatase 122, Total Protein 7.7, Albumin 4.1, Globulin 3.5, Lipase 21 07/02/24 04:41: Lactic Acid 1.2 Imaging Radiology Impression Acute Abdomen Series 07/02/24 03:50 IMPRESSION: Nonobstructive bowel gas pattern Reading Location: [facility] Abdomen/Pelvis CT 07/02/24 04:36 IMPRESSION: *Acute sigmoid colon diverticulitis. *Small fat containing periumbilical hernia. Reading Location: [facility] Assessment & Plan Assessment/Plan (1) Sigmoid diverticulitis: (2) Intractable abdominal pain: (3) Nausea and vomiting: QUALIFIERS: Vomiting type: unspecified Qualified Code(s): R11.2 -Nausea with vomiting, unspecified (4) Periumbilical hernia: (5) History of diverticulitis: (6) History of bowel resection: (7) GERD (gastroesophageal reflux disease): QUALIFIERS: Esophagitis presence: esophagitis presence not specified Qualified Code(s): K21.9 - Gastro-esophageal reflux disease without esophagitis (8) Morbid obesity with BMI of 50.0-59.9, adult: PLAN: Plan 1. CT evidence of Acute Sigmoid Diverticulitis with Leukocytosis of 16.3 K present on admission with severe Abdominal Pain, Nausea, Vomiting with bilious emesis - Admit to general medical floor. Continue empiric IV piperacillin- tazobactam begun in ER. Keep n.p.o. and resume IV pantoprazole for GI pr ophylaxis. Give IV metoclopramide 3 times daily for nausea and vomiting givenpatient's listed allergy to ondansetron. Place scopolamine patch 1.5 mg topicalevery 72 hours. Give ketorolac IV as neededfor [id number] (level 1- 5/10)pain or fever given patient's listed allergy to acetaminophen. Give IV hydromorphone as needed for severe (level 6-10/10) pain. 2. Small fat-containing periumbilical hernia incidentally noted on CT this admission complicating #1 - Stable with no need for surgical intervention at this time. 3. History of diverticulitis; s/p partial bowel resection (~2018) compounding #1 & #2 - Noted. 4. GERD; with history of gastritis and PUD on pantoprazole BID and sucralfate TID followed by Dr. White of gastroenterology adding to the medical complexity of #1 - #3 - Continue IV pantoprazole as outlined in #1. Patient will likely need outpatient consultation with EGD after he completes treatment this admission. 5. Super-morbid obesity; with BMI of 52 this admission adding to the burden of disease outlined from #1 - #4 - Weight loss will be recommended. Check TSH. This complicates his case and may hamper recovery. 6. Essential hypertension; currently not on treatment - Give hydralazine IV as needed for systolic blood pressure greater than 160 mmHg. 7. History of AR - Patient reported and noted. 8. History of CVA - Noted with no signs of any residual deficits. 9. History of mesenteric adenitis - Noted. 10. History of cholecystectomy - Noted. 11. History of appendectomy - Noted. 12. History of foot surgery - Noted. 13. History of hand surgery - Noted. 14. Depression with anxiety; on sertraline - Maintain current regimen. 15. OA; with history of MCL sprain of the Right knee; s/p arthroscopy plus chronic back pain - We we will follow pain regimen and scale as outlined in #1. 16. DVT prophylaxis - Enoxaparin 40 mg SQ twice daily plus SCD's. Total time: Approximately (but not less than) 75 minutes. Charges/Coding Visit Charges Inpatient E&M: 33740 Init Hosp L3 07/02/24 0637 Cosigner Signature (if applicable): CC: Dr. Vic Mercado DO; ALCIRA COLBERT~ Signed [facility]04-11-2025 Discharge summary [facility] Medical Records Department [address] [place] [address] Emergency Department Summary 07/02/24 MR#: [id number] Acct: [id number] Name: BARRETT LOPEZ Rep #:[id number] : 1975 49 From: Marv Pack DO PCP: ALCIRA COLBERT Status:REG ER Location: ED HPI History of Present Illness Chief Complaint: Abd Pain Informant: patient and spouse/S.O. Narrative Narrative: Patient is a 49-year-old male with past medical history of diverticulitis requiring colon resectionaro2018 as well as hypertension and ulcers. He was seen roughly 1 week ago secondary to abdominal pain. At that time his x- rayrevealed no signs of perforation or obstruction and lab work showedmild elevation to his white count but the remainder of his labs are normal and after pain medication he had resolution of symptoms and was discharged home. Patient reports he was doing well and followed up with a general surgeon on an outpatient basis on Friday. Reportedly he received a steroidinjection in the upper abdomen where he has had recurrent pain and was advised that he will schedule a EGD for further evaluation of his symptoms. He states this evening he got up to use the bathroom and after doing so developed increasing upper abdominal pain and a bout of vomiting. He states that the pain has not improvedsince its onset and secondary to this he comes in for evaluation [facility] Medical History History of stroke History of AR (myocardial infarction) Anxiety and depression Morbid obesity Hypertension Diverticulitis large intestine Home Medications ?Medication ?Instructions ?Recorded ?Last Taken ?Type ondansetron HCl 4 mg tablet 4 mg PO Q6H PRN nausea and vomiting 05/02/24 Unknown History sertraline 25 mg tablet 25 mg PO DAILY 05/02/2412/16 History pantoprazole 40 mg tablet,delayed 40 mg PO BID 30 days #60 tabs 05/03/24 Unknown Rx release (Protonix) sucralfate 1 gram tablet 1 g PO TIDAC 30 days #90 tab s 05/03/24 Unknown Rx docusate sodium 100 mg capsule 100 mg PO BID #60 caps 05/30/24 Unknown Rx (Colace) oxycodone-acetaminophen 5 mg-325 1 tab PO Q6H PRN PRN Pain 3 days 05/30/24 Unknown Rx mg tablet #12 TABLETS promethazine 25 mg tablet 25 mg PO Q6H PRN nausea and 05/30/24 Unknown Rx vomiting #10 tabs oxycodone 5 mg tablet 5 mg PO Q6H PRN pain 3 days #12 06/25/24 Unknown Rx tabs pantoprazole 40 mg tablet,delayed 40 mg PO DAILY 30 da ys #30 tabs 06/25/24 Unknown Rx release (Protonix) sucralfate 1 gram tablet (Carafate) 1 g PO TID 30 days #90 tabs 06/25/24 Unknown Rx omeprazole 40 mg capsule,delayed 40 mg PO BID 07/02/24 Unknown History release Allergy/AdvReac Type Severity Reaction Status Date / Time morphine Allergy Mild Rash Verified 07/02/24 03:18 acetaminophen (From Vicodin) Allergy Rash Verified 07/02/24 03:18 codeine Allergy Anaphylaxis Verified 07/02/24 03:18 hydrocodone bitartrate (From Allergy Rash Verified 07/02/24 03:18 Vicodin) latex Allergy Swelling Verified 07/02/24 03:18 naproxen Allergy Hives Verified 07/02/24 03:18 ondansetron (From Zofran (as AdvReac Nausea Verified 07/02/24 03:18 hydrochloride)) Family History Mother Cancer Father Brain aneurysm Surgical History History of bowel resection Hx of hand surgery Hx of foot surgery Hx of arthroscopy of right knee History of tonsillectomy and adenoidectomy Hx of cholecystectomy Hx of appendectomy Social History household members: spouse Smoking Status: Never smoker alcohol intake: never substance use type: does not use ROS ROS ED Constitutional Constitutional ED: Denies chills or fever(s) Eyes Eyes: Denies change in vision ENT ENT ED: Denies sore throat Cardiovascular Cardiovascular: Denies chest pain Respiratory/Chest Respiratory/Chest: Denies cough or dyspnea Gastrointestinal Gastrointestinal: Reports abdominal pain, nausea and vomiting; Denies diarrhea Genitourinary Genitourinary ED: Denies dysuria Musculoskeletal Musculoskeletal: Denies back pain Integumentary Denies rash Neurologic Neurologic: Denies headache(s) Hematologic/Lymphatic Hematologic/Lymphatic: Denies easy bleeding or easy bruising EXAM Physical Exam Const Vital Signs: 07/02/24 03:15 07/02/24 05:14 Temperature 98.0 F Temperature Source Oral Pulse Rate 109 H 99 Respiratory Rate 20 H 18 Blood Pressure 127/100 H 128/68 H Blood Pressure Mean 109 88 Pulse Ox 98 95 Oxygen Delivery Method Room Air Room Air Positive well nourished, well developed and obese General Appearance ED: well developed; Negative for pallor Nutritional Appearance: obese HEENT Reports moist mucous membranes HEENT Narrative: No tongue or lip swelling no oral lesions no airway edema or compromise Eyes PERRL and EOMs intact bilaterally General Eye ED: Negative for scleral icterus Neck supple Resp normal respiratory effort and clear to auscultation bilaterally Cardio regular rhythm Rate: tachycardic and other Other Details: Slightly tachycardic rate with regular rhythm Radial and carotid pulses are equal and symmetric GI GI Narrative: Abdomen is soft but slightly distended. Bowel sounds are hypoactive. There is pain with palpation diffusely but greatest in the midepigastric to left upper quadrant region. No increased tympany. No pulsatile mass. No fluid wave. Patient does have a known umbilical hernia but it feels reducible in nature. Auscultation: hypoactive bowel sounds Palpation: soft Back/Spine no CVA tenderness Extremity normal to inspection Neuro oriented x3, CN's II-XII intact bilaterally and no sensory deficits noted Sensorium / Orientation: alert Motor Exam: strength 5/5 throughout Psych Mood & Affect: anxious Skin no rashes or lesions noted and no wounds General Skin Exam: Negative for jaundice or pallor MDM MDM MDM Narrative Medical decision making narrative: Patient arrived to the ER hypertensive and slightly tachycardic but afebrile. He was seen 1 week ago for similar symptoms and workup revealed no obvious findings. He also reports he was just seen by the general surgeon on Friday and is reportedly being set up for a EGD to further assess the cause of his recurrent belly pain. With the return of pain in the midepigastric to left upper quadrant region there is concern for gastritis versus gastric perforation versus colitis versus pancreatitis versus incarcerated hernia versus obstruction. The skin exam did not show any erythema or warmth or signs of cellulitis or abscess. With concern for underlying intestinal pathology basic blood work andwith an acute abdominal series x-ray was obtained. X-ray revealed no signs of obstruction or perforation. Patient's blood work revealed leukocytosis at 16 which is elevated from the previous week andhe also has leftshift with his absolute neutrophil count elevated at 11. Based on the increasedwhite blood cell count and left shift I did elect to perform a CT scan and add alactic acid and procalcitonin values to check for systemic infection. The patient CT scan revealed no signs of perforation or obstruction but did note changes along the sigmoid colon concerning for diverticulitis. Secondary to this he was started on Zosyn. He has received IV Protonix as well as IV Reglan to cover for potential gastritis/ulcer versus gastroparesis and these medications did minimal for pain relief. He was then medicated with IV Dilaudidas well as IV fentanyl. After receiving these medications he did haveimprovement of his pain and with this his vitals improved. However he still reported significant pain on repeat evaluation. As the patient is not hypotensive tachycardic or febrile and his lactic acid is normal he does not qualify as sepsis and without abscess or perforation this is uncomplicated diverticulitis. However because of the recurrent nature of his symptoms and thefact he has had previous colonic resection and is complaining of persistent painI do not feel that he would do well at home on oral antibiotics. Therefore discussed the case with the hospitalist who agrees to accept the patient for continued pain control and IV antibiotics. This plan of care was discussed withthe patientwho is agreeable to it and therefore he will be admitted for furthercare History & Record Review Discussion w/independent historian: Patient and Significant other Lab Data Attestation: I reviewed the patient's lab results. Labs: Laboratory Results - last 24 hr 07/02/24 07/02/24 03:40 04:41 WBC 16.3 H RBC 5.11 Hgb 13.8 Hct 41.7 MCV 81.6 MCH 27.0 MCHC 33.1 RDW Std Deviation 39.8 RDW Coeff of Mirlande 13.4 Plt Count 375 MPV 9.4 Immature Gran % (Auto) 0.500 Neut % (Auto) 67.3 Lymph % (Auto) 23.7 [place] % (Auto) 6.3 Eos % (Auto) 1.7 Baso % (Auto) 0.5 Absolute Neuts (auto) 11.0 H Absolute Lymphs (auto) 3.86 Nucleated RBC % 0 Sodium 138 Potassium 3.9 Chloride 99 Carbon Dioxide 24.7 Anion Gap 14 BUN 17 Creatinine 0.97 Estim Creat Clear Calc 132.98 Est GFR (MDRD) Non-Af 97 BUN/Creatinine Ratio 17.0 Glucose 99 Lactic Acid 1.2 Calcium 9.1 Total Bilirubin 0.40 Direct Bilirubin 0.19 AST 18 ALT 23 Alkaline Phosphatase 122 Total Protein 7.7 Albumin 4.1 Globulin 3.5 Lipase 21 Radiography Diagnostic Testing: Clinical Impression(s) from Imaging Studies Acute Abdomen Series 07/02/24 03:50 IMPRESSION: Nonobstructive bowel gas pattern Reading Location: [facility] Abdomen/Pelvis CT 07/02/24 04:36 IMPRESSION: *Acute sigmoid colon diverticulitis. *Small fat containing periumbilical hernia. Reading Location: [facility] Acute abdominal series with 1 view chest as interpreted by the emergency medicine physician revealsa nonobstructive nonspecific bowel gas pattern without free air to suggest perforation and chest x-ray component reveals no acute infiltrate Management Discussion w/another healthcare provider: Hospitalist Discharge Plan Triage Chief Complaint: Abd Pain ED Provider: Marv Pack Dx/Rx/DC Orders Clinical Impression: Sigmoid diverticulitis, Hypertension, Morbid obesity, Intractable abdominal pain Prescriptions: No Action sucralfate [Carafate] 1 gram tablet 1 g PO TID 30 Days Qty: 90 0RF pantoprazole [Protonix] 40 mg tablet,delayed release (DR/EC) 40 mg PO DAILY 30 Days Qty: 30 0RF oxycodone 5 mg tablet 5 mg PO Q6H PRN (Reason: pain) 3 Days Qty: 12 0RF omeprazole 40 mg capsule,delayed release(DR/EC) 40 mg PO BID ondansetron HCl 4 mg tablet 4 mg PO Q6H PRN (Reason: nausea and vomiting) Patient Comments: [NO ORIGINAL SIG] sertraline 25 mg tablet 25 mg PO DAILY sucralfate 1 gram Tablet 1 g PO TIDAC 30 Days Qty: 90 0RF pantoprazole [Protonix] 40 mg tablet,delayed release (DR/EC) 40 mg PO BID 30 Days Qty: 60 3RF oxycodone-acetaminophen 5-325 mg tablet 1 tab PO Q6H PRN PRN (Reason: Pain) 3 Days Qty: 12 0RF docusate sodium [Colace] 100 mg capsule 100 mg PO BID Qty: 60 0RF promethazine 25 mg tablet 25 mg PO Q6H PRN (Reason: nausea and vomiting) Qty: 10 0RF Primary Care Provider: EILEEN COONEY Referrals: EILEEN COONEY CRNP [Primary Care Provider] - Print Language: Kuwaiti Disposition Disposition: Acute Care Hospital [facility] What to do if you have Problems For any increased pain, shortness of breath, bleeding, nausea or vomiting, chestpain, or any unexpected problems, contact your Primary Care Provider. Call [facility] ([phone]) or report tothe closest Emergency Room. Call 911 if necessary. 07/02/24 0551 Cosigner Signature (if applicable): CC: ALCIRA COLBERT ~ Signed [facility]04-11-2025 Radiology Diagnostic study note [facility] Imaging Services [address] [place], [place] [id number] Abdomen/Pelvis W IV Cont ONLY MR#: [id number] Acct: [id number] Name: BARRETT LOPEZ Rep #: [id number] : 1975 M 49 From: Aleksandra Gomez MD PCP: ALCIRA COLBERT Status: REG ER Study:Abdomen/Pelvis W IV Cont ONLY Date of E xam: 07/02/24 Exam# [id number] Ordering Dr: Isamar Pack DO PROCEDURE: ABDOMEN/PELVIS W IV CONT ONLY 07/02/2024 REASON FOR EXAM: ABD PAIN TECHNIQUE: Abdomen and pelvis CT with intravenous contrast. Coronal and Sagittal reconstruction series were provided. PATIENT PREPARATION: Per protocol ORAL CONTRAST TYPE: None. AMOUNT: mL CONTRAST: Isovue 370 VOLUME: 100 ML 18 gauge IV One or more dose reduction techniques were used (e.g., Automated exposure control, adjustment of the mA and/or kV according to patient size, use of iterative reconstruction technique. RADIATION DOSE SUMMARY: CTDlvol: 24.2 mGy DLP: 1343.0 mGycm COMPARISON: None available FINDINGS: Lung bases: Unremarkable Liver: Unremarkable Gallbladder: Status post cholecystectomy. Spleen: Unremarkable Pancreas: Unremarkable Adrenals: Unremarkable Kidneys: Kidneys are normal in size and configuration. No hydronephrosis. Bladder: No focal bladder wall thickening. Reproductive Organs: Unremarkable Bowel: Short-segment mural thickening within the sigmoid colon on background diverticulosis with adjacent inflammatory changes, likely representing an acute diverticulitis. Appendix: Not visualized Lymph nodes: No lymphadenopathy Vasculature: Patent vasculature Peritoneum / Retroperitoneum: Unremarkable Bones: No aggressive osseous lesions. No acute fractures. CT/Abdomen/Pelvis W IV Cont ONLY IMPRESSION: *Acute sigmoid colon diverticulitis. *Small fat containing periumbilical hernia. Reading Location: [id number] CC: Marv Pack DO; ALCIRA COLBERT ~ Senior Net Web Developer: Signed [facility]04-11-2025 Radiology Diagnostic study note [facility] Imaging Services [address] [place] [address] Acute Abdomen Inc Chest MR#: [id number] Acct: [id number] Name: BARRETT LOPEZ Rep #: [id number] : 1975 M 49 From: Aleksandra Gomez MD PCP: ALCIRA COLBERT Status: REG ER Study:Acute Abdomen Inc Chest Date of Exam: 07/02/24 Exam# [id number] Ordering Dr: Isamar Pack DO PROCEDURE: ACUTE ABDOMEN INC CHEST 07/02/2024 REASON FOR EXAM: ABD PAIN TECHNIQUE: Single view chest with supine and upright views of the abdomen. COMPARISON: June 24, 2024 FINDINGS: Hardware: None Heart: Cardiomediastinal silhouette is within normal limits. Normal pulmonary vascularity. Lungs: No focal consolidation. Bowel gas: Nonobstructive Free air: No pneumoperitoneum Calcifications: None Bones: No acute fracture. Other: RAD/Acute Abdomen Inc Chest IMPRESSION: Nonobstructive bowel gas pattern Reading Location: [facility] CC: Marv Pack DO; ALCIRA COLBERT ~ Senior Net Web Developer: Signed [facility]04-04-2025 Radiology Diagnostic study note [facility] Imaging Services [address] [place], [place] [id number] Acute Abdomen Inc Chest MR#: [id number] Acct: [id number] Name: BARRETT LOPEZ Rep #: [id number] : 1975 M 49 From: Ann-Marie Edmonds MD PCP: ALCIRA COLBERT Status: REG ER Study:Acute Abdomen Inc Chest Date of Exam: 06/24/24 Exam# [id number] Ordering Dr: Isamar Pack DO PROCEDURE: ACUTE ABDOMEN INC CHEST 06/24/2024 REASON FOR EXAM: ABD PAIN TECHNIQUE: Single view chest with supine and upright views of the abdomen. COMPARISON: None FINDINGS: Hardware: None Heart: Cardiac and mediastinal contours are stable. Lungs: No focal consolidation. No pneumothorax. No pleural effusion. Bowel gas: Bowel gas pattern is normal. No evidence of bowel obstruction. Moderate colonic stool. Free air: No free air. Calcifications: No suspicious calcifications. Bones: The bones are unremarkable. Other: No radiopaque foreign body. RAD/Acute Abdomen Inc Chest IMPRESSION: NEGATIVE ACUTE ABDOMINAL SERIES [facility] CC: Marv Pack DO; ALCIRA COLBERT ~ Senior Net Web Developer: Signed [facility]03-09-2025 Radiology Diagnostic study note [facility] Imaging Services [address] [place] [address] Abdomen/Pelvis W IV Cont ONLY MR#: [id number] Acct: [id number] Name: BARRETT LOPEZ Rep #: [id number] : 1975 M 49 From: Abebe Lane DO PCP: ALCIRA COLBERT Status: REG ER Study:Abdomen/Pelvis W IV Cont ONLY Date of E xam: 05/29/24 Exam# [id number] Ordering Dr: Luis Marmolejo DO PROCEDURE: ABDOMEN/PELVIS W IV CONT ONLY REASON FOR EXAM: Right upper quadrant pain. Vomiting. TECHNIQUE: Abdomen and pelvis CT with intravenous contrast. COMPARISON: CT abdomen/pelvis from 05/08/2024. FINDINGS: Lung bases are clear. The liver, spleen, pancreas, and adrenal glands are unremarkable. Gallbladder is surgically absent.Abdominal aorta demonstrates a normal caliber. Bilateral kidneys enhance homogeneously without hydronephrosis or obstructive uropathy. There is mild bilateral perinephric stranding likely on a chronic basis. No biliary ductal dilatation is seen. There is a fat containing umbilical hernia with the ventral abdominal wall defect measuring 3.3 x 1.7 cm in the transverse and CC dimensions respectively and the hernia sac measuring approximately 5.1 x 3.4 x 3.7 cm. Urinary bladder is underdistended. There are fat containing bilateral inguinal hernias. There are postsurgical changes of the rectum. No colonic obstruction or pericolonic inflammatory changes are present. There is mild retained stool in the colon. Appendix is not visualized. Small bowel demonstrates a normal caliber. No freeair or free fluid is identified. Evaluation of the osseous structures demonstrates no acute findings. Mild degenerative changes are present. CT/Abdomen/Pelvis W IV Cont ONLY IMPRESSION: 1. No acute inflammatory changes, obstructive uropathy, free air, or free fluid. 2. Additional findings as above. One or more dose reduction techniques were used (e.g., Automated exposure control, adjustment of the mA and/or kV according to patient size, use of iterative reconstruction technique). Reading Location: [facility] CC: Dr. Luis Marmolejo DO; ALCIRA COLBERT ~ Senior Net Web Developer: Signed [facility]03-08-2025 Radiology Diagnostic study note [facility] Imaging Services [address] [place] [id number] Chest PA and Lateral MR#: [id number] Acct: [id number] Name: ZANDRABARRETT Adams LAUREN Rep #: [id number] : 1975 M 49 From: Haja Escamilla DO PCP: ALCIRA COLBERT Status: REG ER Study:Chest PA and Lateral Date of Exam: 05/29/24 Exam# [id number] Ordering Dr: Luis Marmolejo DO PROCEDURE: CHEST PA AND LATERAL REASON FOR EXAM: Cough TECHNIQUE: Frontal and lateral views of the chest. COMPARISON: Chest radiograph dated 06/22/2023 FINDINGS: The heart size is normal. The mediastinal contour is unremarkable. The lungs are clear. The bones are unremarkable. RAD/Chest PA and Lateral IMPRESSION: NO ACUTE FINDINGS. Reading Location: [facility] CC: Dr. Luis Marmolejo DO; ALCIRA COLBERT ~ Senior Net Web Developer: Signed [facility]02-10-2025 Evaluation note* Diagnosis Onset Date Resolution Status Admit Date Abdominal pain inactive April 242024 1:00am [facility] Work Phone: [phone]) 304-859602-10-2025 Evaluation note* Diagnosis Onset Date Resolution Status Admit Date Abdominal pain inactive April 242024 1:00am GERD (gastroesophageal reflu x disease) acute July 02, 2024 6:06am History of bowel resection acute July 02, 2024 6:06am History of diverticulitis acute July 02, 2024 6:06am Intractable abdominal pain acute July 02, 2024 6:06am Morbid obesity with BMI of 50.0-59.9, adult acute July 02 6:06am Nausea and vomiting acute July 02, 2024 6:06am Periumbilical hernia acute Apri l 2024 6:06am Sigmoid diverticulitis acute Ap ril 2024 6:06am [facility] Work Phone: 1(961) 952-443302-10-2025 Evaluation note* Diagnosis Onset Date Resolution Status Admit Date Abdominal pain inactive April 242024 1:00am Sigmoid diverticulitis acute Ap ril 2024 6:06am Intractable abdominal pain resolved July 02, 2024 6:06am Nausea and vomiting resolved July 02, 2024 6:06am GERD (gastroesophageal reflu x disease) inactive July 02, 2024 6:06am History of bowel resection inactive July 02, 2024 6:06am History of diverticulitis inactive July 02, 2024 6:06am Morbid obesity with BMI of 50.0-59.9, adult inactive July 02 6:06am Periumbilical hernia inactive Apri l 2024 6:06am Sigmoid diverticulitis acute Ap ril 2024 12:58pm [facility] Work Phone: [phone]) 715-424502-09-2025 Hospital Discharge instructions Patient Education 05/02/2024 21:06:16 Chest Pain, Uncertain Cause Uncertain Causes of Chest Pain Chest pain can happen for a number of reasons. Sometimes the cause can't be determined. If your condition does not seem serious, and your pain does not appear to be coming from your heart, your healthcare provider may recommend watching it closely. Sometimes the signs of a serious problem take moretime to appear. Many problems not related to your heart can cause chest pain. These include: Musculoskeletal. Costochondritis is an inflammation of the tissues around the ribs that can occur from trauma or overuse injuries, or a strain of the muscles of the chest wall Respiratory. Pneumonia, collapsed lung (pneumothorax), or inflammation of the lining of the chest and lungs (pleurisy) Gastrointestinal. Esophageal reflux, heartburn, ulcers, or gallbladder disease Anxiety and panic disorders Nerve compression and inflammation Rare miscellaneous problems such as aortic aneurysm (a swelling of the large artery coming out of the heart) or pulmonary embolism (a blood clot in the lungs) Home care After your visit, follow these recommendations: Rest today and avoid strenuous activity. Take any prescribed medicine as directed. Be aware of any recurrent chest pain and notice any changes Follow-up care Follow up with your healthcare provider if you do not start to feel better within 24 hours, or as advised. Call 911 Call 911 if any of these occur: A change in the type of pain: if it feels different, becomes more severe, lasts longer, or begins to spread into your shoulder, arm, neck, jaw or back Shortness of breath or increased pain with breathing Weakness, dizziness, or fainting Rapid heart beat Crushing sensation in your chest When to seek medical advice Call your healthcare provider right away if any of the following occur: Cough with dark colored sputum (phlegm) or blood Fever of 100.4 F (38 C) or higher, or as directed by your healthcare provider Swelling, pain or redness in one leg [id number] [employer]. [address] [place] [address], [place] [address]. All rights reserved. This information is not intended as a substitute for professional medical care. Always follow yourhealthcare professional's instructions. Follow Up Care 05/02/2024 18:51:41 With:EILEEN COONEY Address: [address] [place] [address] [place] [address] [phone] When:2-4 days [facility] 02-09-2025 Telephone encounter Note* Telephone Encounter - Azalea Carl RN - 05/02/2024 10:43 PM EST Reason for Call: Chest Pain - feels tight and worsening since seen in ED (present from 6:30p-now constant) Left arm numb Nosebleed and rectal bleeding started upon arriving home from ED at 10:40pm Outcome: Call 911 now refuses to go to ED near home but agrees to take patient to another ED now Reason for Disposition [1] Chest pain lasts > 5 minutes AND [2] age > 44 Protocols used: Chest [id number] [facility]02-09-2025 Miscellaneous Notes* Telephone Encounter - Azalea Carl RN - 05/02/2024 10:43 PM EST Reason for Call: Chest Pain - feels tight and worsening since seen in ED (present from 6:30p-now constant) Left arm numb Nosebleed and rectal bleeding started upon arriving home from ED at 10:40pm Outcome: Call 911 now refuses to go to ED near home but agrees to take patient to another ED now Reason for Disposition [1] Chest pain lasts > 5 minutes AND [2] age > 44 Protocols used: Chest [id number] [facility] Emergency department Discharge summary Discharge Instructions Thank you for allowing [facility] to assist you with your healthcare needs. The following is importantdischarge information regarding your hospital visit. Diagnosis from Today's Visit Atypical chest pain What to Do Next Instructions from Your Care Team No qualifying data available. Post Acute Orders No qualifying data available. You Need to Schedule the Following Appointments Follow Up with EILEEN COONEY When:Within 2-4 days Where:0 [facility] [place] [address] [phone] Allergies codeine(Severe) Swelling of throat, Hives Latex Vicodin Hives lidocaine naproxen Medications Please ask your primary doctor or pharmacist before taking any other medication not listed, including over the counter drugs, herbal medications, vitamins and or supplements as they may interact withyour home medications. What How Much When Why Instructions Last Dose Unchanged acetaminophen (Tylenol Extra Strength 500 mg oral tablet) 2 tab(s) by mouth Every 4 hours as needed for as needed for pain Unchanged ondansetron (Zofran 4 mg oral tablet) 1 tab(s) by mouth Every 6 hours as needed for Nausea/Vomiting Unchanged sertraline (Zoloft 25 mg oral tablet) 0.5 tab(s) by mouth Once a day Anxiety Duration: 90 Days Please take this list to your next doctor s visit. Bring all medications you take, including over the counter medications, herbals and other supplements with you to your doctor s visit. Patients and families are reminded to discard old lists and to update any records with all medication providers or retail pharmacies. Education Materials Uncertain Causes of Chest Pain Chest pain can happen for a number of reasons. Sometimes the cause can't be determined. If your condition does not seem serious, and your pain does not appear to be coming from your heart, your healthcare provider may recommend watching it closely. Sometimes the signs of a serious problem take moretime to appear. Many problems not related to your heart can cause chest pain. These include: Musculoskeletal. Costochondritis is an inflammation of the tissues around the ribs that can occur from trauma or overuse injuries, or a strain of the muscles of the chest wall Respiratory. Pneumonia, collapsed lung (pneumothorax), or inflammation of the lining of the chest and lungs (pleurisy) Gastrointestinal. Esophageal reflux, heartburn, ulcers, or gallbladder disease Anxiety and panic disorders Nerve compression and inflammation Rare miscellaneous problems such as aortic aneurysm (a swelling of the large artery coming out of the heart) or pulmonary embolism (a blood clot in the lungs) Home care After your visit, follow these recommendations: Rest today and avoid strenuous activity. Take any prescribed medicine as directed. Be aware of any recurrent chest pain and notice any changes Follow-up care Follow up with your healthcare provider if you do not start to feel better within 24 hours, or as advised. Call 911 Call 911 if any of these occur: A change in the type of pain: if it feels different, becomes more severe, lasts longer, or begins to spread into your shoulder, arm, neck, jaw or back Shortness of breath or increased pain with breathing Weakness, dizziness, or fainting Rapid heart beat Crushing sensation in your chest When to seek medical advice Call your healthcare provider right away if any of the following occur: Cough with dark colored sputum (phlegm) or blood Fever of 100.4 F (38 C) or higher, or as directed by your healthcare provider Swelling, pain or redness in one leg [phone] [employer]. [address] [place] [address]. All rights reserved. This information is not intended as a substitute for professional medical care. Always follow yourhealthcare professional's instructions. Additional Information VACCINATE! IT SAVES LIVES! Members of the community who have not yet received the COVID-19 vaccine and would like to receive it can visit one of [facility] vaccine clinics. There are many vaccine clinic locations within the [facility]. For locations and available times, please visit www.gettheshot.coronavirus.[place].gov/. It is important to note that some COVID mobile vaccine clinics are held outdoors and may be canceled in rainy or stormy conditions. To learn more about pediatric vaccinations (ages 5-11), we invite you to visit the [facility] webpage. [email or web address] learn more about the COVID-19 vaccine, we invite you to visit the CDC website for a list of frequently asked questions. https://www.cdc.gov/coronavirus/2019-ncov/vaccines/faq.html [facility] [employer] Patient Portal Access Instructions: Stay connected with your healthcare team and access your personal medical information anytime with the [email or web address] Patient Portal. If you would like a full copy of your medical records please contact the [facility] Medical Records Department Friday through Friday between 8a.m. and 4:30p.m. Please follow the directions below to access the portal: 1.Access the email account you provided upon registration to the [facility].2.Look for an invitation email from [facility].3.Open the email and access the invitation link: Accept Invitation to [facility] [employer]4.Fill in the required baugh to create your account. Sign into [email or web address] with your username and password that you created in the above steps to stay up to date. You can then view a summary of results, a summary of your visits, and the ability to download your summaries to your computer or send the information securely to a physician. Remember that your healthcare information is confidential, so carefully consider who you will allow to register on the [email or web address] Patient Portal for access to your information. You can also access the [email or web address] Patient Portal on the [employer] priscila. Simply click on Health Records under [employer] and then click on the [employer] logo. HOW TO SAFELY DISPOSE OF PRESCRIPTION MEDICATIONS Please use one of the following methods to safely dispose of your unused medications. 1.Use a drug disposal kit: the drug disposal pouch allows you to safely discard your old and unuseddrugs. Ask your nurse to give you one when you are discharged.2.Visit a local take-back location: Many local pharmacies and police departments have programs that collect old and unwanted prescriptiondrugs. Call your local pharmacy or go to http://bit.[employer]/1G0Dx6y to find one close to you.3.Make use of household items: Use cat litter or old coffee grounds to dispose medications if other options arenot available. Mix your drugs with these household products, seal them in an airtight container andthrow it into the garbage. Call [facility]: [phone] to be sure your drugs can be disposed of in this way. Some medicines may require a different approach.4.Never flush your medications down the toilet. IF YOU HAVE BEEN PRESCRIBED AN OPIOIDS FOR PAIN If you have been prescribed an opioid (such as hydrocodone, oxycodone or morphine), it is critical to understand the possible side effects and risks of opioid pain medications. Even when taken as directed, opioids can have several side effects including: Tolerance, meaning you might need to take more of a medication for the same pain relief. Nausea, vomiting and/or constipation. Sleepiness, dizziness, dry mouth, confusion, depression or itching. Physical dependence, meaning you have withdrawal symptoms when a medication is stopped ? this can develop within a few days. KNOW YOUR RESPONSIBILITIES It is important to know exactly how much and how often to take the opioid pain medications you are prescribed. Never take opioids in higher amounts or more often than prescribed. Do not combine opioids with alcohol or other drugs that cause drowsiness, such as benzodiazepines, also known as benzos,including diazepam and alprazolam, muscle relaxants or sleep aids. Never sell or share prescriptionopioids. This is illegal. Store opioids in a secure place and out of reach of others (including children, family, friends and visitors). The last page(s) of this document has been signed and retained as a CHART COPY Signatures Patient Education Materials Chest Pain, Uncertain Cause Medication Leaflets My discharge plan and instructions have been reviewed and explained to me and I,BARRETT LOPEZ understand my current condition and have read and understand these discharge instructions. I have received a written copy of the plan/instructions. If I have questions, I am aware that I should contact my doctor. Patient/Hr Director Signature: Date/Time: Relationship to Patient: Witness Name/Signature: Date/Time: [id number] Note* Exam Date Time Procedure Performing Provider Status 05/02/24 7:52 PM XR Chest 1 View MARS SEVILLA MD; Au th (Verified) [id number] ORIGINAL EXAMINATION: ONE XRAY VIEW OF THE CHEST 05/02/2024 7:53 pm COMPARISON: Radiograph of the chest August 20, 2023 HISTORY: ORDERING SYSTEM PROVIDED HISTORY: Reason for Exam: chest pain FINDINGS: Cardiomediastinal silhouette is unchanged in size. Low lung volumes. Costophrenic angles are sharp. No radiographic pneumothorax. No definite focal consolidation. Osseous structures grossly unchanged. IMPRESSION: Low lung volumes. Interpreted by: Mars Sevilla Preliminary Report By: Mars Sevilla Electronically signed By Mars Sevilla Dictated Date: 05/02/2024 7:57:37 PM Prelim Date: 05/02/2024 7:58:02 PM Sign Date: 05/02/2024 7:58:02 PM Ordering Provider: VICTOR M WALTON [facility]02-09-2025 Note* Exam Date Time Procedure Performing Provider Status 05/02/24 7:19 PM EKG [ED AO] - CV VICTOR M WALTON MD; Auth (Verified) ECG Final Report Sinus rhythm Low voltage, precordial leads Electronic Signature: VICTOR M WALTON MD 05/02/2024 19:28:47 [facility]01-29-2025 Note* Discharge Instr - Nursing Lisset Reddy RN - 04/21/2024 10:05 AM EST The patient received a copy of Colonoscopy discharge instructions that contain information for how to contact the physician who performed the procedure and when to seek medical care. [facility]01-29-2025 Miscellaneous Notes* Discharge Instr - Lisset Perales RN - 04/21/2024 10:05 AM EST The patient received a copy of Colonoscopy discharge instructions that contain information for how to contact the physician who performed the procedure and when to seek medical care. [facility] Attending History and physical note* Guerline Andersen MD - 04/21/2024 9:00 AM EST UPDATED PROCEDURAL SEDATION HISTORY AND PHYSICAL EXAMINATION SERVICE DATE: 04/21/2024 SERVICE TIME: 9:03 AM PHYSICAL EXAM MUST BE COMPLETED ON ADMISSION PROCEDURE: Procedure Indications: The History and Physical (completed in the past 30 days) has been reviewed and the patient has beenexamined. The contents accurately reflect the patient's condition with the following additions or revisions since the H&P was completed. ASA Class: ASA Class: Patient with mild systemic disease Examination indicates no changes. AIRWAY: Airway Visualization of Uvula: Yes Mouth opening greater than 2 fingerbreadths: Yes Neck Full Range of Motion: Yes LUNGS: Lungs clear to auscultation CARDIAC: Regular rhythm,Regular rate Provisional Diagnosis/Treatment Plan: RLQ pain, colonoscopy Sedation Goal: Moderate This H&P can be found in the attached. SIGNATURE: Guerline Andersen MD PATIENT NAME: Barrett Lopez DATE: April 21, 2024 TIME: 9:03 AM Source Note - Guerline Andersen MD - 04/21/2024 9:00 AM EST HISTORY AND PHYSICAL Barrett Lopez : 1975 REFERRING PHYSICIAN: No referring provider defined for this encounter. CHIEF COMPLAINT: Patient presents with: colon consult HPI: Barrett is a 48 year old male referred for endoscopy. Barrett notes here for repeat colonoscopy after poor prep. My note from 12/05/2023 for original scheduled colonoscopy Barrett notes abdominal pain. The pain occurs in the following locations: RUQ and RLQ . 12/31. Constant sharp/stabbing pain for the last 6 months. Refers putting a 2L pop bottle of cold water helps the pain. Epigastric pain is the worst when laying down at night. Barrett notes diarrhea x 1 week- not watery Barrett denies constipation. Barrett denies a change in bowel habits. Barrett denies melena. Barrett notes bright red blood per rectum on toilet paper. Barrett denies hemorrhoids. Notes family history of colon issues. Maternal grandfather- colon cancer Interim HPI Barrett was scheduled for colonoscopy in December- got the dates confused and showed up 1 month early. The provider attempted to perform a colonoscopy but there was stool in the rectum so it was aborted. Barrett c/o continued RUQ & RLQ pain- the same, no change. Notes only eats one meal a day Pain is at its worse after having BM Daily BM w/o straining No longer take Omeprazole. Last colonoscopy was 11/2022 with findings of diverticulosis. No specimens collected. Sedation received for EGD 11/2023 in [facility]: Fentanyl 100 micrograms IV, Midazolam 5 mg IV, Diphenhydramine 50 mg IV, Benzocaine spray CURRENT MEDICATIONS Current Outpatient Medications Medication Sig ZOLOFT 25 mg tablet Take 25 mg by mouth once daily. cyclobenzaprine (FLEXERIL) 10 mg tablet Take by mouth once daily. peg 3350-Electrolytes (GOLYTELY) 236-22.74-6.74 -5.86 gram suspension Take 4,000 mL by mouth one time only for 1 dose. Refer to printed prep instructions from your provider. No current facility-administered medications for this visit. 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 COLONOSCOPY FLX DX W/COLLJ SPEC WHEN PFRMD 04/03/2021 repeat in 1 year-due to poor bowel prep EGD 11/26/2022 EGD 12/08/2023 ESOPHAGOGASTRODUODENOSCOPY TRANSORAL DIAGNOSTIC 04/03/2018 EGD ESOPHAGOGASTRODUODENOSCOPY TRANSORAL DIAGNOSTIC 01/16/2021 ESOPHAGOGASTRODUODENOSCOPY TRANSORAL DIAGNOSTIC 04/03/2021 FOOT SURGERY HX Bilateral 1992 preair of broken feet FRACTURE SURGERY HAND SURGERY HX Left 2006 repair of fracture KNEE SURGERY HX Right 2016 LAPS SURG CHOLECYSTECTOMY W/CHOLANGIOGRAPHY 12/08/2017 PAST SURGICAL HISTORY OF 04/2007 fracture/Deviated septum TONSILLECTOMY & ADENOIDECTOMY AGE 14/> 2011 T/A (over age 14 years) TONSILLECTOMY HX FAMILY HISTORY FAMILY HISTORY Problem Relation Age of Onset Diabetes Mother Hypertension Mother Cancer Mother lung and brain Hearing Loss Maternal Grandmother Diabetes Maternal Grandmother Heart Maternal Grandfather AR other (unknown) Father brain aneurysm? SOCIAL HISTORY Social History Tobacco Use Smoking status: Never Smokeless tobacco: Never Vaping Use Vaping status: Never Used Substance Use Topics Alcohol use: No Drug use: No REVIEW OF SYMPTOMS: REVIEW OF SYSTEMS: General: The patient + fatigue, + weight loss, + weight gain, denies feeling hot, and feelings of cold. Eyes: The patient denies glaucoma, denies eye injury/surgery, denies glasses or contacts. Ear/Nose/Throat: The patient denies allergies, denies hayfever, denies ear infections, and denies bloody noses. Cardiovascular: The patient denies chest pain, denies heart disease, denies high blood pressure, denies high cholesterol, and denies poor circulation. Respiratory: The patient denies tuberculosis, denies pneumonia, denies frequent cough, denies shortness of breath, and denies coughing up blood. Gastrointestinal: The patient denies difficulty swallowing, + acid reflux, denies ulcers, denies jaundice/hepatitis, denies gallbladder problems, denies vomiting, denies black or tarry stools, denieshemorrhoids, denies bleeding from rectum, denies diverticulitis, denies constipation, denies diarrhea, denies loss of stool control, and denies hernias. Kidney/Bladder: The patient denies kidney stones, denies urine infections, and denies bloody urine. Skin: The patient denies a history of skin cancer, denies bleeding/changing moles, and denies a history of skin rash. Neurologic: The patient denies a history of epilepsy/convulsions, denies headaches, denies head/spinal injuries, and + stroke/TIA. Psychiatric: The patient denies psychiatric medications, denies depression, and denies voices. Endocrine: The patient denies thyroid disorders, denies diabetes, and denies hormonal problems. Hematologic: The patient denies a history of bruising, denies bleeding, and denies anemia. Infections: The patient denies a history of measles and mumps, denies rheumatic fever, and denies sexually transmitted diseases. Musculoskeletal: The patient + back pain/injury, + back problems, + sciatica, denies knee/foot trouble, + arthritis, or denies gout. PHYSICAL EXAMINATION: General: The patient is 48 year old, male well nourished, well hydrated in no acute distress. The patient is oriented to time, place, and person. VITALS: Blood pressure 130/87, pulse 92, weight (!) 143.1 kg (315 lb 6.4 oz), SpO2 97%. Body mass index is 49.4 kg/m . HEENT: Normal cephalic, ataumatic, pupils are equally round, sclera are anicteric, mucous membranesare moist, oropharynx is clear. Neck has no masses, asymmetry or lymphadenopathy. Respiratory: Clear to auscultation and percussion. Normal respiratory excursion and pattern. Cardiac: Examination is regular rate and rhythm. Normal S1/S2 Abdominal exam: Soft, nontender, with no palpable masses. No hepatosplenomegaly. No palpable hernias. Extremities: no clubbing, cyanosis or edema. No adenopathy. LABORATORY VALUES: As Noted RADIOLOGIC STUDIES: As Noted Assessment IMPRESSION: chronic RLQ pain, aborted colonoscopy PLAN: I have reviewed my findings with the surgeon. Will plan for lower endoscopy. We discussed therisks and benefits of the planned endoscopy. I have informed the patient that complications can occur including failure to complete the endoscopy and perforation. Barrett had the opportunity to ask questions concerning the planned endoscopy. My staff has also explained the procedure to the patient in understandable terms and has given the patient printed material concerning the procedure. Barrett freely consents to surgery. I plan to use Golytely bowel preparation- per Dr. Andersen able to keep patient in [facility] I have explained to the patient the difference between IV conscious sedation and MAC anesthesia - and I have offered either, according to the patient's wishes. I have explained that with IV conscioussedation there is no anesthesia provider available and therefore there is a limitation of the amount of IV medications that can be given and that the patient may wake up in the middle of the procedure and/or experience pain/discomfort during the procedure. Further discussion was done and the patient was given the opportunity to ask questions and all questions were answered. Barrett chooses IV conscious sedation. Barrett was counseled that if there are changes in his/her medical condition, to let the office knowif surgery should proceed. If there are changes in patient's medical condition from time of this encounter to the day of the procedure that preclude anesthesia, patient may have procedure cancelled for patient's safety. Diagnoses: (R10.31, G89.29) Chronic RLQ pain (primary encounter diagnosis) Portions of this documentation were copied and pasted from previous office visit notes in order to provide a cohesive continuity of the history. The note has been reviewed and edited and updated as necessary. Asia Salgado APRN.TELEVISION CABINET FINISHER [facility]01-29-2025 History and physical note* Guerline Andersen MD - 04/21/2024 9:00 AM EST HISTORY AND PHYSICAL Barrett Lopez : 1975 REFERRING PHYSICIAN: No referring provider defined for this encounter. CHIEF COMPLAINT: Patient presents with: colon consult HPI: Barrett is a 48 year old male referred for endoscopy. Barrett notes here for repeat colonoscopy after poor prep. My note from 12/05/2023 for original scheduled colonoscopy Barrett notes abdominal pain. The pain occurs in the following locations: RUQ and RLQ . 12/31. Constant sharp/stabbing pain for the last 6 months. Refers putting a 2L pop bottle of cold water helps the pain. Epigastric pain is the worst when laying down at night. Barrett notes diarrhea x 1 week- not watery Barrett denies constipation. Barrett denies a change in bowel habits. Brarett denies melena. Barrett notes bright red blood per rectum on toilet paper. Barrett denies hemorrhoids. Notes family history of colon issues. Maternal grandfather- colon cancer Interim HPI Barrett was scheduled for colonoscopy in December- got the dates confused and showed up 1 month early. The provider attempted to perform a colonoscopy but there was stool in the rectum so it was aborted. Barrett c/o continued RUQ & RLQ pain- the same, no change. Notes only eats one meal a day Pain is at its worse after having BM Daily BM w/o straining No longer take Omeprazole. Last colonoscopy was 11/2022 with findings of diverticulosis. No specimens collected. Sedation received for EGD 11/2023 in [facility]: Fentanyl 100 micrograms IV, Midazolam 5 mg IV, Diphenhydramine 50 mg IV, Benzocaine spray CURRENT MEDICATIONS Current Outpatient Medications Medication Sig ZOLOFT 25 mg tablet Take 25 mg by mouth once daily. cyclobenzaprine (FLEXERIL) 10 mg tablet Take by mouth once daily. peg 3350-Electrolytes (GOLYTELY) 236-22.74-6.74 -5.86 gram suspension Take 4,000 mL by mouth one time only for 1 dose. Refer to printed prep instructions from your provider. No current facility-administered medications for this visit. 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 COLONOSCOPY FLX DX W/COLLJ SPEC WHEN PFRMD 04/03/2021 repeat in 1 year-due to poor bowel prep EGD 11/26/2022 EGD 12/08/2023 ESOPHAGOGASTRODUODENOSCOPY TRANSORAL DIAGNOSTIC 04/03/2018 EGD ESOPHAGOGASTRODUODENOSCOPY TRANSORAL DIAGNOSTIC 01/16/2021 ESOPHAGOGASTRODUODENOSCOPY TRANSORAL DIAGNOSTIC 04/03/2021 FOOT SURGERY HX Bilateral 1991 preair of broken feet FRACTURE SURGERY HAND SURGERY HX Left 2006 repair of fracture KNEE SURGERY HX Right 2016 LAPS SURG CHOLECYSTECTOMY W/CHOLANGIOGRAPHY 12/08/2017 PAST SURGICAL HISTORY OF 04/2007 fracture/Deviated septum TONSILLECTOMY & ADENOIDECTOMY AGE 14/> 2012 T/A (over age 14 years) TONSILLECTOMY HX FAMILY HISTORY FAMILY HISTORY Problem Relation Age of Onset Diabetes Mother Hypertension Mother Cancer Mother lung and brain Hearing Loss Maternal Grandmother Diabetes Maternal Grandmother Heart Maternal Grandfather AR other (unknown) Father brain aneurysm? SOCIAL HISTORY Social History Tobacco Use Smoking status: Never Smokeless tobacco: Never Vaping Use Vaping status: Never Used Substance Use Topics Alcohol use: No Drug use: No REVIEW OF SYMPTOMS: REVIEW OF SYSTEMS: General: The patient + fatigue, + weight loss, + weight gain, denies feeling hot, and feelings of cold. Eyes: The patient denies glaucoma, denies eye injury/surgery, denies glasses or contacts. Ear/Nose/Throat: The patient denies allergies, denies hayfever, denies ear infections, and denies bloody noses. Cardiovascular: The patient denies chest pain, denies heart disease, denies high blood pressure, denies high cholesterol, and denies poor circulation. Respiratory: The patient denies tuberculosis, denies pneumonia, denies frequent cough, denies shortness of breath, and denies coughing up blood. Gastrointestinal: The patient denies difficulty swallowing, + acid reflux, denies ulcers, denies jaundice/hepatitis, denies gallbladder problems, denies vomiting, denies black or tarry stools, denieshemorrhoids, denies bleeding from rectum, denies diverticulitis, denies constipation, denies diarrhea, denies loss of stool control, and denies hernias. Kidney/Bladder: The patient denies kidney stones, denies urine infections, and denies bloody urine. Skin: The patient denies a history of skin cancer, denies bleeding/changing moles, and denies a history of skin rash. Neurologic: The patient denies a history of epilepsy/convulsions, denies headaches, denies head/spinal injuries, and + stroke/TIA. Psychiatric: The patient denies psychiatric medications, denies depression, and denies voices. Endocrine: The patient denies thyroid disorders, denies diabetes, and denies hormonal problems. Hematologic: The patient denies a history of bruising, denies bleeding, and denies anemia. Infections: The patient denies a history of measles and mumps, denies rheumatic fever, and denies sexually transmitted diseases. Musculoskeletal: The patient + back pain/injury, + back problems, + sciatica, denies knee/foot trouble, + arthritis, or denies gout. PHYSICAL EXAMINATION: General: The patient is 48 year old, male well nourished, well hydrated in no acute distress. The patient is oriented to time, place, and person. VITALS: Blood pressure 130/87, pulse 92, weight (!) 143.1 kg (315 lb 6.4 oz), SpO2 97%. Body mass index is 49.4 kg/m . HEENT: Normal cephalic, ataumatic, pupils are equally round, sclera are anicteric, mucous membranesare moist, oropharynx is clear. Neck has no masses, asymmetry or lymphadenopathy. Respiratory: Clear to auscultation and percussion. Normal respiratory excursion and pattern. Cardiac: Examination is regular rate and rhythm. Normal S1/S2 Abdominal exam: Soft, nontender, with no palpable masses. No hepatosplenomegaly. No palpable hernias. Extremities: no clubbing, cyanosis or edema. No adenopathy. LABORATORY VALUES: As Noted RADIOLOGIC STUDIES: As Noted Assessment IMPRESSION: chronic RLQ pain, aborted colonoscopy PLAN: I have reviewed my findings with the surgeon. Will plan for lower endoscopy. We discussed therisks and benefits of the planned endoscopy. I have informed the patient that complications can occur including failure to complete the endoscopy and perforation. Barrett had the opportunity to ask questions concerning the planned endoscopy. My staff has also explained the procedure to the patient in understandable terms and has given the patient printed material concerning the procedure. Barrett freely consents to surgery. I plan to use Golytely bowel preparation- per Dr. Andersen able to keep patient in [facility] I have explained to the patient the difference between IV conscious sedation and MAC anesthesia - and I have offered either, according to the patient's wishes. I have explained that with IV conscioussedation there is no anesthesia provider available and therefore there is a limitation of the amount of IV medications that can be given and that the patient may wake up in the middle of the procedure and/or experience pain/discomfort during the procedure. Further discussion was done and the patient was given the opportunity to ask questions and all questions were answered. Barrett chooses IV conscious sedation. Barrett was counseled that if there are changes in his/her medical condition, to let the office knowif surgery should proceed. If there are changes in patient's medical condition from time of this encounter to the day of the procedure that preclude anesthesia, patient may have procedure cancelled for patient's safety. Diagnoses: (R10.31, G89.29) Chronic RLQ pain (primary encounter diagnosis) Portions of this documentation were copied and pasted from previous office visit notes in order to provide a cohesive continuity of the history. The note has been reviewed and edited and updated as necessary. Asia Salgado APRN.TELEVISION CABINET FINISHER [facility]01-29-2025 History and physical note* Guerline Andersen MD - 04/21/2024 9:00 AM EST UPDATED PROCEDURAL SEDATION HISTORY AND PHYSICAL EXAMINATION SERVICE DATE: 04/21/2024 SERVICE TIME: 9:03 AM PHYSICAL EXAM MUST BE COMPLETED ON ADMISSION PROCEDURE: Procedure Indications: The History and Physical (completed in the past 30 days) has been reviewed and the patient has beenexamined. The contents accurately reflect the patient's condition with the following additions or revisions since the H&P was completed. ASA Class: ASA Class: Patient with mild systemic disease Examination indicates no changes. AIRWAY: Airway Visualization of Uvula: Yes Mouth opening greater than 2 fingerbreadths: Yes Neck Full Range of Motion: Yes LUNGS: Lungs clear to auscultation CARDIAC: Regular rhythm,Regular rate Provisional Diagnosis/Treatment Plan: RLQ pain, colonoscopy Sedation Goal: Moderate This H&P can be found in the attached. SIGNATURE: Guerline Andersen MD PATIENT NAME: Barrett Lopez DATE: April 21, 2024 TIME: 9:03 AM Source Note - Guerline Andersen MD - 04/21/2024 9:00 AM EST HISTORY AND PHYSICAL Barrett Lopez : 1975 REFERRING PHYSICIAN: No referring provider defined for this encounter. CHIEF COMPLAINT: Patient presents with: colon consult HPI: Barrett is a 48 year old male referred for endoscopy. Barrett notes here for repeat colonoscopy after poor prep. My note from 12/05/2023 for original scheduled colonoscopy Barrett notes abdominal pain. The pain occurs in the following locations: RUQ and RLQ . 12/31. Constant sharp/stabbing pain for the last 6 months. Refers putting a 2L pop bottle of cold water helps the pain. Epigastric pain is the worst when laying down at night. Barrett notes diarrhea x 1 week- not watery Barrett denies constipation. Barrett denies a change in bowel habits. Barrett denies melena. Barrett notes bright red blood per rectum on toilet paper. Barrett denies hemorrhoids. Notes family history of colon issues. Maternal grandfather- colon cancer Interim HPI Barrett was scheduled for colonoscopy in December- got the dates confused and showed up 1 month early. The provider attempted to perform a colonoscopy but there was stool in the rectum so it was aborted. Barrett c/o continued RUQ & RLQ pain- the same, no change. Notes only eats one meal a day Pain is at its worse after having BM Daily BM w/o straining No longer take Omeprazole. Last colonoscopy was 11/2022 with findings of diverticulosis. No specimens collected. Sedation received for EGD 11/2023 in [facility]: Fentanyl 100 micrograms IV, Midazolam 5 mg IV, Diphenhydramine 50 mg IV, Benzocaine spray CURRENT MEDICATIONS Current Outpatient Medications Medication Sig ZOLOFT 25 mg tablet Take 25 mg by mouth once daily. cyclobenzaprine (FLEXERIL) 10 mg tablet Take by mouth once daily. peg 3350-Electrolytes (GOLYTELY) 236-22.74-6.74 -5.86 gram suspension Take 4,000 mL by mouth one time only for 1 dose. Refer to printed prep instructions from your provider. No current facility-administered medications for this visit. 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 COLONOSCOPY FLX DX W/COLLJ SPEC WHEN PFRMD 04/03/2021 repeat in 1 year-due to poor bowel prep EGD 11/26/2022 EGD 12/08/2023 ESOPHAGOGASTRODUODENOSCOPY TRANSORAL DIAGNOSTIC 04/03/2018 EGD ESOPHAGOGASTRODUODENOSCOPY TRANSORAL DIAGNOSTIC 01/16/2021 ESOPHAGOGASTRODUODENOSCOPY TRANSORAL DIAGNOSTIC 04/03/2021 FOOT SURGERY HX Bilateral 1991 preair of broken feet FRACTURE SURGERY HAND SURGERY HX Left 2006 repair of fracture KNEE SURGERY HX Right 2016 LAPS SURG CHOLECYSTECTOMY W/CHOLANGIOGRAPHY 12/08/2017 PAST SURGICAL HISTORY OF 04/2007 fracture/Deviated septum TONSILLECTOMY & ADENOIDECTOMY AGE 14/> 2011 T/A (over age 14 years) TONSILLECTOMY HX FAMILY HISTORY FAMILY HISTORY Problem Relation Age of Onset Diabetes Mother Hypertension Mother Cancer Mother lung and brain Hearing Loss Maternal Grandmother Diabetes Maternal Grandmother Heart Maternal Grandfather AR other (unknown) Father brain aneurysm? SOCIAL HISTORY Social History Tobacco Use Smoking status: Never Smokeless tobacco: Never Vaping Use Vaping status: Never Used Substance Use Topics Alcohol use: No Drug use: No REVIEW OF SYMPTOMS: REVIEW OF SYSTEMS: General: The patient + fatigue, + weight loss, + weight gain, denies feeling hot, and feelings of cold. Eyes: The patient denies glaucoma, denies eye injury/surgery, denies glasses or contacts. Ear/Nose/Throat: The patient denies allergies, denies hayfever, denies ear infections, and denies bloody noses. Cardiovascular: The patient denies chest pain, denies heart disease, denies high blood pressure, denies high cholesterol, and denies poor circulation. Respiratory: The patient denies tuberculosis, denies pneumonia, denies frequent cough, denies shortness of breath, and denies coughing up blood. Gastrointestinal: The patient denies difficulty swallowing, + acid reflux, denies ulcers, denies jaundice/hepatitis, denies gallbladder problems, denies vomiting, denies black or tarry stools, denieshemorrhoids, denies bleeding from rectum, denies diverticulitis, denies constipation, denies diarrhea, denies loss of stool control, and denies hernias. Kidney/Bladder: The patient denies kidney stones, denies urine infections, and denies bloody urine. Skin: The patient denies a history of skin cancer, denies bleeding/changing moles, and denies a history of skin rash. Neurologic: The patient denies a history of epilepsy/convulsions, denies headaches, denies head/spinal injuries, and + stroke/TIA. Psychiatric: The patient denies psychiatric medications, denies depression, and denies voices. Endocrine: The patient denies thyroid disorders, denies diabetes, and denies hormonal problems. Hematologic: The patient denies a history of bruising, denies bleeding, and denies anemia. Infections: The patient denies a history of measles and mumps, denies rheumatic fever, and denies sexually transmitted diseases. Musculoskeletal: The patient + back pain/injury, + back problems, + sciatica, denies knee/foot trouble, + arthritis, or denies gout. PHYSICAL EXAMINATION: General: The patient is 48 year old, male well nourished, well hydrated in no acute distress. The patient is oriented to time, place, and person. VITALS: Blood pressure 130/87, pulse 92, weight (!) 143.1 kg (315 lb 6.4 oz), SpO2 97%. Body mass index is 49.4 kg/m . HEENT: Normal cephalic, ataumatic, pupils are equally round, sclera are anicteric, mucous membranesare moist, oropharynx is clear. Neck has no masses, asymmetry or lymphadenopathy. Respiratory: Clear to auscultation and percussion. Normal respiratory excursion and pattern. Cardiac: Examination is regular rate and rhythm. Normal S1/S2 Abdominal exam: Soft, nontender, with no palpable masses. No hepatosplenomegaly. No palpable hernias. Extremities: no clubbing, cyanosis or edema. No adenopathy. LABORATORY VALUES: As Noted RADIOLOGIC STUDIES: As Noted Assessment IMPRESSION: chronic RLQ pain, aborted colonoscopy PLAN: I have reviewed my findings with the surgeon. Will plan for lower endoscopy. We discussed therisks and benefits of the planned endoscopy. I have informed the patient that complications can occur including failure to complete the endoscopy and perforation. Barrett had the opportunity to ask questions concerning the planned endoscopy. My staff has also explained the procedure to the patient in understandable terms and has given the patient printed material concerning the procedure. Barrett freely consents to surgery. I plan to use Golytely bowel preparation- per Dr. Andersen able to keep patient in [facility] I have explained to the patient the difference between IV conscious sedation and MAC anesthesia - and I have offered either, according to the patient's wishes. I have explained that with IV conscioussedation there is no anesthesia provider available and therefore there is a limitation of the amount of IV medications that can be given and that the patient may wake up in the middle of the procedure and/or experience pain/discomfort during the procedure. Further discussion was done and the patient was given the opportunity to ask questions and all questions were answered. Barrett chooses IV conscious sedation. Barrett was counseled that if there are changes in his/her medical condition, to let the office knowif surgery should proceed. If there are changes in patient's medical condition from time of this encounter to the day of the procedure that preclude anesthesia, patient may have procedure cancelled for patient's safety. Diagnoses: (R10.31, G89.29) Chronic RLQ pain (primary encounter diagnosis) Portions of this documentation were copied and pasted from previous office visit notes in order to provide a cohesive continuity of the history. The note has been reviewed and edited and updated as necessary. Asia Salgado APRN.TELEVISION CABINET FINISHER * Guerline Andersen MD - 04/21/2024 9:00 AM EST HISTORY AND PHYSICAL Barrett Lopez : 1975 REFERRING PHYSICIAN: No referring provider defined for this encounter. CHIEF COMPLAINT: Patient presents with: colon consult HPI: Barrett is a 48 year old male referred for endoscopy. Barrett notes here for repeat colonoscopy after poor prep. My note from 12/05/2023 for original scheduled colonoscopy Barrett notes abdominal pain. The pain occurs in the following locations: RUQ and RLQ . 12/31. Constant sharp/stabbing pain for the last 6 months. Refers putting a 2L pop bottle of cold water helps the pain. Epigastric pain is the worst when laying down at night. Barrett notes diarrhea x 1 week- not watery Barrett denies constipation. Barrett denies a change in bowel habits. Barrett denies melena. Barrett notes bright red blood per rectum on toilet paper. Barrett denies hemorrhoids. Notes family history of colon issues. Maternal grandfather- colon cancer Interim HPI Barrett was scheduled for colonoscopy in December- got the dates confused and showed up 1 month early. The provider attempted to perform a colonoscopy but there was stool in the rectum so it was aborted. Barrett c/o continued RUQ & RLQ pain- the same, no change. Notes only eats one meal a day Pain is at its worse after having BM Daily BM w/o straining No longer take Omeprazole. Last colonoscopy was 11/2022 with findings of diverticulosis. No specimens collected. Sedation received for EGD 11/2023 in [facility]: Fentanyl 100 micrograms IV, Midazolam 5 mg IV, Diphenhydramine 50 mg IV, Benzocaine spray CURRENT MEDICATIONS Current Outpatient Medications Medication Sig ZOLOFT 25 mg tablet Take 25 mg by mouth once daily. cyclobenzaprine (FLEXERIL) 10 mg tablet Take by mouth once daily. peg 3350-Electrolytes (GOLYTELY) 236-22.74-6.74 -5.86 gram suspension Take 4,000 mL by mouth one time only for 1 dose. Refer to printed prep instructions from your provider. No current facility-administered medications for this visit. 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 COLONOSCOPY FLX DX W/COLLJ SPEC WHEN PFRMD 04/03/2021 repeat in 1 year-due to poor bowel prep EGD 11/26/2022 EGD 12/08/2023 ESOPHAGOGASTRODUODENOSCOPY TRANSORAL DIAGNOSTIC 04/03/2018 EGD ESOPHAGOGASTRODUODENOSCOPY TRANSORAL DIAGNOSTIC 01/16/2021 ESOPHAGOGASTRODUODENOSCOPY TRANSORAL DIAGNOSTIC 04/03/2021 FOOT SURGERY HX Bilateral 1991 preair of broken feet FRACTURE SURGERY HAND SURGERY HX Left 2006 repair of fracture KNEE SURGERY HX Right 2016 LAPS SURG CHOLECYSTECTOMY W/CHOLANGIOGRAPHY 12/08/2017 PAST SURGICAL HISTORY OF 04/2007 fracture/Deviated septum TONSILLECTOMY & ADENOIDECTOMY AGE 14/> 2011 T/A (over age 14 years) TONSILLECTOMY HX FAMILY HISTORY FAMILY HISTORY Problem Relation Age of Onset Diabetes Mother Hypertension Mother Cancer Mother lung and brain Hearing Loss Maternal Grandmother Diabetes Maternal Grandmother Heart Maternal Grandfather AR other (unknown) Father brain aneurysm? SOCIAL HISTORY Social History Tobacco Use Smoking status: Never Smokeless tobacco: Never Vaping Use Vaping status: Never Used Substance Use Topics Alcohol use: No Drug use: No REVIEW OF SYMPTOMS: REVIEW OF SYSTEMS: General: The patient + fatigue, + weight loss, + weight gain, denies feeling hot, and feelings of cold. Eyes: The patient denies glaucoma, denies eye injury/surgery, denies glasses or contacts. Ear/Nose/Throat: The patient denies allergies, denies hayfever, denies ear infections, and denies bloody noses. Cardiovascular: The patient denies chest pain, denies heart disease, denies high blood pressure, denies high cholesterol, and denies poor circulation. Respiratory: The patient denies tuberculosis, denies pneumonia, denies frequent cough, denies shortness of breath, and denies coughing up blood. Gastrointestinal: The patient denies difficulty swallowing, + acid reflux, denies ulcers, denies jaundice/hepatitis, denies gallbladder problems, denies vomiting, denies black or tarry stools, denieshemorrhoids, denies bleeding from rectum, denies diverticulitis, denies constipation, denies diarrhea, denies loss of stool control, and denies hernias. Kidney/Bladder: The patient denies kidney stones, denies urine infections, and denies bloody urine. Skin: The patient denies a history of skin cancer, denies bleeding/changing moles, and denies a history of skin rash. Neurologic: The patient denies a history of epilepsy/convulsions, denies headaches, denies head/spinal injuries, and + stroke/TIA. Psychiatric: The patient denies psychiatric medications, denies depression, and denies voices. Endocrine: The patient denies thyroid disorders, denies diabetes, and denies hormonal problems. Hematologic: The patient denies a history of bruising, denies bleeding, and denies anemia. Infections: The patient denies a history of measles and mumps, denies rheumatic fever, and denies sexually transmitted diseases. Musculoskeletal: The patient + back pain/injury, + back problems, + sciatica, denies knee/foot trouble, + arthritis, or denies gout. PHYSICAL EXAMINATION: General: The patient is 48 year old, male well nourished, well hydrated in no acute distress. The patient is oriented to time, place, and person. VITALS: Blood pressure 130/87, pulse 92, weight (!) 143.1 kg (315 lb 6.4 oz), SpO2 97%. Body mass index is 49.4 kg/m . HEENT: Normal cephalic, ataumatic, pupils are equally round, sclera are anicteric, mucous membranesare moist, oropharynx is clear. Neck has no masses, asymmetry or lymphadenopathy. Respiratory: Clear to auscultation and percussion. Normal respiratory excursion and pattern. Cardiac: Examination is regular rate and rhythm. Normal S1/S2 Abdominal exam: Soft, nontender, with no palpable masses. No hepatosplenomegaly. No palpable hernias. Extremities: no clubbing, cyanosis or edema. No adenopathy. LABORATORY VALUES: As Noted RADIOLOGIC STUDIES: As Noted Assessment IMPRESSION: chronic RLQ pain, aborted colonoscopy PLAN: I have reviewed my findings with the surgeon. Will plan for lower endoscopy. We discussed therisks and benefits of the planned endoscopy. I have informed the patient that complications can occur including failure to complete the endoscopy and perforation. Barrett had the opportunity to ask questions concerning the planned endoscopy. My staff has also explained the procedure to the patient in understandable terms and has given the patient printed material concerning the procedure. Barrett freely consents to surgery. I plan to use Golytely bowel preparation- per Dr. Andersen able to keep patient in [facility] I have explained to the patient the difference between IV conscious sedation and MAC anesthesia - and I have offered either, according to the patient's wishes. I have explained that with IV conscioussedation there is no anesthesia provider available and therefore there is a limitation of the amount of IV medications that can be given and that the patient may wake up in the middle of the procedure and/or experience pain/discomfort during the procedure. Further discussion was done and the patient was given the opportunity to ask questions and all questions were answered. Barrett chooses IV conscious sedation. Barrett was counseled that if there are changes in his/her medical condition, to let the office knowif surgery should proceed. If there are changes in patient's medical condition from time of this encounter to the day of the procedure that preclude anesthesia, patient may have procedure cancelled for patient's safety. Diagnoses: (R10.31, G89.29) Chronic RLQ pain (primary encounter diagnosis) Portions of this documentation were copied and pasted from previous office visit notes in order to provide a cohesive continuity of the history. The note has been reviewed and edited and updated as necessary. Asia Salgado APRN.TELEVISION CABINET FINISHER documented in [facility] NoteHNO ID: [id number] Author: DEANDRA OCHOA, DO Service: ? Author Type: Physician Type: Progress Notes Filed: 04/09/2024 13:20 Note Text: VIRTUAL VISIT PROGRESS NOTE This is a virtual visit using [employer] Zoom Video Visit. It required patient-provider interaction for the medical decision making as documented below. I have communicated my name and active licensure. The patient's identity and physical location were verified at the time of this visit. Either the patient or their legal corporate representative has been informed of the risks and benefits of -- and alternatives to -- treatment through a remote evaluation and consents to proceed with the evaluation remotely. Barrett Lopez is a 48 year old male seen for left elbow pain and numbness, still c/o pain and numbness. No changes.. 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 COLONOSCOPY FLX DX W/COLLJ SPEC WHEN PFRMD 04/03/2021 repeat in 1 year-due to poor bowel prep EGD 11/26/2022 EGD 12/08/2023 ESOPHAGOGASTRODUODENOSCOPY TRANSORAL DIAGNOSTIC 04/03/2018 EGD ESOPHAGOGASTRODUODENOSCOPY TRANSORAL DIAGNOSTIC 01/16/2021 ESOPHAGOGASTRODUODENOSCOPY TRANSORAL DIAGNOSTIC 04/03/2021 FOOT SURGERY HX Bilateral 1991 preair of broken feet FRACTURE SURGERY HAND SURGERY HX Left 2007 repair of fracture KNEE SURGERY HX Right 2016 LAPS SURG CHOLECYSTECTOMY W/CHOLANGIOGRAPHY 12/08/2017 PAST SURGICAL HISTORY OF 04/2007 fracture/Deviated septum TONSILLECTOMY AND ADENOIDECTOMY AGE 14/> 2011 T/A (over age 14 years) TONSILLECTOMY HX FAMILY HISTORY Problem Relation Age of Onset Diabetes Mother Hypertension Mother Cancer Mother lung and brain Hearing Loss Maternal Grandmother Diabetes Maternal Grandmother Heart Maternal Grandfather AR other (unknown) Father brain aneurysm? Social History Tobacco Use Smoking status: Never Smokeless tobacco: Never Vaping Use Vaping status: Never Used Substance Use Topics Alcohol use: No Drug use: No Current Outpatient Medications Medication Sig diclofenac, EC, (VOLTAREN) 50 mg EC tablet Take 1 tablet by mouth two times a day. ZOLOFT 25 mg tablet Take 25 mg by mouth once daily. cyclobenzaprine (FLEXERIL) 10 mg tablet Take by mouth once daily. No current facility-administered medications for this visit. ALLERGIES Allergen Reactions Codeine Latex Swelling AND rash Naproxen Hives Vicodin [Hydrocodon* REVIEW OF SYSTEMS: All other ROS: negative As noted in HPI PHYSICAL EXAMINATION: VIDEO EXAM: (if completed, performed via video enabled technology) No exam performed ASSESSMENT: No diagnosis found. @ALLSL@ Last MRI Elbow - Impression Only MRI ELBOW WO IVCON LEFT Exam End: 04/07/2024 7:01 PM (Final result) Impression: IMPRESSION: Normal MR appearance of the ulnar nerve as clinically queried. Stable postsurgical changes of distal biceps tendon repair without recurrent tear. ... PLAN: Discussed next steps EMG of left arm to r/o cts/uln nerve There are no Patient Instructions on file for this visit. I spent a total of 20 minutes on the date of the service which included preparing to see the patient, [id number] patient care, completing clinical documentation, obtaining and/or reviewing separately obtained history, communicating with other HCPs (not separately reported), independently interpreting results (not separately reported), and communicating results to the patient/family/caregiver Deandra Ochoa, [facility]01-17-2025 History of Present illness Narrative* Deandra Ochoa, DO - 04/09/2024 1:16 PM EST VIRTUAL VISIT PROGRESS NOTE This is a virtual visit using [employer] Zoom Video Visit. It required patient- provider interaction for the medical decision making as documented below. I have communicated my name and active licensure. The patient's identity and physical location wereverified at the time of this visit. Either the patient or their legal corporate representative has been informed of the risks and benefits of -- and alternatives to -- treatment through a remote evaluation andconsents to proceed with the evaluation remotely. Barrett Lopez is a 48 year old male seen for left elbow pain and numbness, still c/o pain and numbness. No changes.. 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 COLONOSCOPY FLX DX W/COLLJ SPEC WHEN PFRMD 04/03/2021 repeat in 1 year-due to poor bowel prep EGD 11/26/2022 EGD 12/08/2023 ESOPHAGOGASTRODUODENOSCOPY TRANSORAL DIAGNOSTIC 04/03/2018 EGD ESOPHAGOGASTRODUODENOSCOPY TRANSORAL DIAGNOSTIC 01/16/2021 ESOPHAGOGASTRODUODENOSCOPY TRANSORAL DIAGNOSTIC 04/03/2021 FOOT SURGERY HX Bilateral 1991 preair of broken feet FRACTURE SURGERY HAND SURGERY HX Left 2006 repair of fracture KNEE SURGERY HX Right 2016 LAPS SURG CHOLECYSTECTOMY W/CHOLANGIOGRAPHY 12/08/2017 PAST SURGICAL HISTORY OF 04/2007 fracture/Deviated septum TONSILLECTOMY & ADENOIDECTOMY AGE 14/> 2011 T/A (over age 14 years) TONSILLECTOMY HX FAMILY HISTORY Problem Relation Age of Onset Diabetes Mother Hypertension Mother Cancer Mother lung and brain Hearing Loss Maternal Grandmother Diabetes Maternal Grandmother Heart Maternal Grandfather AR other (unknown) Father brain aneurysm? Social History Tobacco Use Smoking status: Never Smokeless tobacco: Never Vaping Use Vaping status: Never Used Substance Use Topics Alcohol use: No Drug use: No Current Outpatient Medications Medication Sig diclofenac, EC, (VOLTAREN) 50 mg EC tablet Take 1 tablet by mouth two times a day. ZOLOFT 25 mg tablet Take 25 mg by mouth once daily. cyclobenzaprine (FLEXERIL) 10 mg tablet Take by mouth once daily. No current facility-administered medications for this visit. ALLERGIES Allergen Reactions Codeine Latex Swelling & rash Naproxen Hives Vicodin [Hydrocodon* REVIEW OF SYSTEMS: All other ROS: negative As noted in HPI PHYSICAL EXAMINATION: VIDEO EXAM: (if completed, performed via video enabled technology) No exam performed ASSESSMENT: No diagnosis found. @ALLSL@ Last MRI Elbow - Impression Only MRI ELBOW WO IVCON LEFT Exam End: 04/07/2024 7:01 PM (Final result) Impression: IMPRESSION: Normal MR appearance of the ulnar nerve as clinically queried. Stable postsurgical changes of distal biceps tendon repair without recurrent tear. ... PLAN: Discussed next steps EMG of left arm to r/o cts/uln nerve There are no Patient Instructions on file for this visit. I spent a total of 20 minutes on the date of the service which included preparing to see the patient, [id number] patient care, completing clinical documentation, obtaining and/or reviewing separately obtained history, communicating with other HCPs (not separately reported), independently interpret ing results (not separately reported), and communicating results to the patient/family/caregiver Deandra Ochoa, documented in this encounter[facility] History of Present illness Narrative* Sherrie Gallardo RT(R) - 04/07/2024 7:20 PM EST Radiology Service Progress Note PATIENT NAME: Barrett Lopez DATE OF SERVICE: April 07, 2024 TIME: 6:37 PM PATIENT IDENTITY VERIFICATION COMPLETED USING TWO (2) IDENTIFIERS: Name and Date of confirmedby patient verbally and Name and Date of confirmed by identification band. FALL SCREENING: Has the patient had 2 falls in the last year or 1 fall with injury or currently using an Ambulatory Assistive Device (Walker, Cane, Wheelchair, Crutches, etc.)? No PATIENT GENDER DATA: Assigned male at PATIENT RELEVANT IMPLANT DATA REVIEWED: Yes PATIENT PRESENTS WITH AN IMPLANTABLE OR ATTACHED SAMPLE PATTERNMAKER: No RADIOLOGY DEPARTMENT: MR; Exam(s) Completed: Upper MSK: Elbow, left PERIPHERAL IV DATA: Not applicable SIGNED BY: RT Hay(Jass) April 07, 2024 6:37 PM documented in this encounterOur [facility] Of [facility]01-15-2025 NoteHNO ID: [id number] Author: SHERRIE GALLARDO RT(R) Service: ? Author Type: Technologist Type: Progress Notes Filed: 04/07/2024 18:38 Note Text: Radiology Service Progress Note PATIENT NAME: Barrett Lopez DATE OF SERVICE: April 07, 2024 TIME: 6:37 PM PATIENT IDENTITY VERIFICATION COMPLETED USING TWO (2) IDENTIFIERS: Name and Date of confirmed by patient verbally and Name and Date of confirmed by identification band. FALL SCREENING: Has the patient had 2 falls in the last year or 1 fall with injury or currently using an Ambulatory Assistive Device (Walker, Cane, Wheelchair, Crutches, etc.)? No PATIENT GENDER DATA: Assigned male at PATIENT RELEVANT IMPLANT DATA REVIEWED: Yes PATIENT PRESENTS WITH AN IMPLANTABLE OR ATTACHED SAMPLE PATTERNMAKER: No RADIOLOGY DEPARTMENT: MR; Exam(s) Completed: Upper MSK: Elbow, left PERIPHERAL IV DATA: Not applicable SIGNED BY: Sherrie Gallardo RT(R) April 07, 2024 6:37 PMSelect [facility] [id number] NoteHNO ID: [id number] Author: OTIS ALTAMIRANO MD Service: ? Author Type: Physician Type: Progress Notes Filed: 03/23/2024 15:51 Note Text: UNIVERSAL PROTOCOL / SAFETY CHECKLIST Procedure to be Performed: neuromuscular ultrasound Sign In: A Moment of CARE was completed. Personnel directly involved with the procedure wore the appropriate PPE (Personal Protective Equipment). Patient/Surrogate Stated/Verified: PATIENT VERIFIED(optional for EMERGENT procedures): Patient name, Date of , Relevant allergies and The intended procedure Time Out Communication: Intended patient and procedure match the source documents. Consent documented and matches the intended procedure. Sign Out: SIGN OUT (optional for EMERGENT procedures): Post-procedure follow-up management communicated and Plan of Care Visit completed when applicable. Otis Altamirano, [facility]12-31-2024 History of Present illness Narrative* Otis Altamirano MD - 03/23/2024 3:47 PM EST UNIVERSAL PROTOCOL / SAFETY CHECKLIST Procedure to be Performed: neuromuscular ultrasound Sign In: A Moment of CARE was completed. Personnel directly involved with the procedure wore the appropriate PPE (Personal Protective Equipment). Patient/Surrogate Stated/Verified: PATIENT VERIFIED(optional for EMERGENT procedures): Patient name, Date of , Relevant allergies and The intended procedure Time Out Communication: Intended patient and procedure match the source documents. Consent documented and matches the intended procedure. Sign Out: SIGN OUT (optional for EMERGENT procedures): Post-procedure follow-up management communicated and Plan of Care Visit completed when applicable. Otis Altamirano MD documented in this encounterOur [facility]12-27-2024 NoteHNO ID: [id number] Author: DEANDRA OCHOA DO Service: ? Author Type: Physician Type: Progress Notes Filed: 03/19/2024 12:28 Note Text: Follow Up Visit Chief Complaint Barrett Lopez is a 48 year old male who presents today for follow up office visit. Patient presents with: Left Arm - Established Patient, Pain, Numbness History of Present Illness PAIN EVALUATION 03/19/2024 1128 Pain Level: 10 Pain Location: Arm-Left Description: Sharp;Numbness;Tingling;Throbbing Duration Units: Years Frequency: Continuous HPI: Barrett Lopez is a 48 year old male for a follow up visit left elbow pain. Patient has been experiencing left ulnar nerve symptoms. He denies injury. Pain history is noted as above. Right hand dominate. Is there any overall improvement in your condition? No Any new injury, since being seen last: No REVIEW OF SYMPTOMS: Patient did not have, and does not currently have, any weight loss, malaise, fever, chills, headache, chest pain, chest pressure, palpitations, cough, shortness of breath, orthopnea, paroxsymal nocturnal dyspnea, nausea, vomiting, diarrhea, constipation, melena, hematochezia, urinary difficulties, prolonged bleeding, easily bruising, heat or cold intolerance, new onset joint pain or swelling, new onset extremity weakness or numbness, new onset auditory or visual disturbances, lightheadedness, dizziness, partial loss of consciousness or full loss of consciousness. Current Outpatient Medications Medication Sig ZOLOFT 25 mg tablet Take 25 mg by mouth once daily. cyclobenzaprine (FLEXERIL) 10 mg tablet Take by mouth once daily. No current facility-administered medications for this visit. Physical Exam Vitals: There were no vitals taken for this visit. Psych: Pleasant, good affect and mood General Appearance: Well appearing, alert, in no acute distress, well-hydrated, well nourished.. Skin: Skin color, texture, turgor normal, no suspicious rashes or lesions. Peripheral Pulses: Normal. Neurologic: Gait normal. Reflexes normal and symmetric. Sensation grossly intact.. Lymph Nodes: No cervical lymphadenopathy, No supraclavicular lymphadenopathy, No axillary lymphadenopathy., and No inguinal lymphadenopathy.. Respiratory: No recent pulmonary infection, hemoptysis, chronic cough, or shortness of breath at rest Rheumatologic: Joint deformities: left elbow pain Right Hand Exam Right hand exam is normal. Tenderness The patient is experiencing no tenderness. Range of Motion The patient has normal right wrist ROM. Wrist Extension: normal Flexion: normal Pronation: normal Supination: normal Muscle Strength The patient has normal right wrist strength. Tests Phalen?s Sign: negative Tinel's sign (median nerve): negative Anamika's test: negative Other Erythema: absent Sensation: normal Pulse: present Comments: B/l med/uln/rad/ax nerves intact Left Hand Exam Left hand exam is normal. Tenderness The patient is experiencing no tenderness. Range of Motion The patient has normal left wrist ROM. Wrist Extension: normal Flexion: normal Pronation: normal Supination: normal Muscle Strength The patient has normal left wrist strength. Tests Phalen?s Sign: negative Tinel's sign (median nerve): negative Anamika's test: negative Other Erythema: absent Sensation: normal Pulse: present Right Elbow Exam Right elbow exam is normal. Tenderness The patient is experiencing no tenderness. Range of Motion Extension: normal Flexion: normal Pronation: normal Supination: normal Muscle Strength Pronation: 5/5 Supination: 5/5 Other Erythema: absent Sensation: normal Pulse: present Comments: Med,rad nerves intact Left Elbow Exam Tenderness The patient is experiencing tenderness in the medial epicondyle. Range of Motion Extension: normal Flexion: normal Pronation: normal Supination: normal Muscle Strength Pronation: 5/5 Supination: 5/5 Other Erythema: absent Sensation: normal Pulse: present Comments: Dec uln nerve left hand, weakness in paper grab Assessment and Plan Radiographs: No imaging to review. Impression: Encounter Diagnosis ICD-10-CM 1. Lesion of left ulnar nerve G56.22 NEUROMUSCULAR ULTRASOUND/NEUROLOGY MRI ELBOW WO IVCON LEFT NEUROMUSCULAR ULTRASOUND/NEUROLOGY 2. Elbow pain, chronic, left M25.522 MRI ELBOW WO IVCON LEFT G89.29 NEUROMUSCULAR ULTRASOUND/NEUROLOGY Today, in detail, through a thorough evaluation, we discussed possible etiologies of pain and our plans for further diagnostic and therapeutic interventions. We discussed strategies for decreasing pain and improving strength, stability and motion. Patient's questions were answered in detailed. Patient verbalizes understanding and agrees with the treatment plan as discussed. Nm us of left uln nerve Traumatic injury to left elbow so mri as also had surgery and having dif (more content not included)...[facility]12-27-2024 History of Present illness Narrative* Deandra Ochoa, - 03/19/2024 11:32 AM EST Follow Up Visit Chief Complaint Barrett Lopez is a 48 year old male who presents today for follow up office visit. Patient presents with: Left Arm - Established Patient, Pain, Numbness History of Present Illness PAIN EVALUATION 03/19/2024 1128 Pain Level: 10 Pain Location: Arm-Left Description: Sharp;Numbness;Tingling;Throbbing Duration Units: Years Frequency: Continuous HPI: Barrett Lopze is a 48 year old male for a follow up visit left elbow pain. Patient has been experiencing left ulnar nerve symptoms. He denies injury. Pain history is noted as above. Right hand dominate. Is there any overall improvement in your condition? No Any new injury, since being seen last: No REVIEW OF SYMPTOMS: Patient did not have, and does not currently have, any weight loss, malaise, fever, chills, headache, chest pain, chest pressure, palpitations, cough, shortness of breath, orthopnea, paroxsymal nocturnal dyspnea, nausea, vomiting, diarrhea, constipation, melena, hematochezia, urinary difficulties, prolonged bleeding, easily bruising, heat or cold intolerance, new onset joint pain or swelling, newonset extremity weakness or numbness, new onset auditory or visual disturbances, lightheadedness, dizziness, partial loss of consciousness or full loss of consciousness. Current Outpatient Medications Medication Sig ZOLOFT 25 mg tablet Take 25 mg by mouth once daily. cyclobenzaprine (FLEXERIL) 10 mg tablet Take by mouth once daily. No current facility-administered medications for this visit. Physical Exam Vitals: There were no vitals taken for this visit. Psych: Pleasant, good affect and mood General Appearance: Well appearing, alert, in no acute distress, well-hydrated, well nourished.. Skin: Skin color, texture, turgor normal, no suspicious rashes or lesions. Peripheral Pulses: Normal. Neurologic: Gait normal. Reflexes normal and symmetric. Sensation grossly intact.. Lymph Nodes: No cervical lymphadenopathy, No supraclavicular lymphadenopathy, No axillary lymphadenopathy., and No inguinal lymphadenopathy.. Respiratory: No recent pulmonary infection, hemoptysis, chronic cough, or shortness of breath at rest Rheumatologic: Joint deformities: left elbow pain Right Hand Exam Right hand exam is normal. Tenderness The patient is experiencing no tenderness. Range of Motion The patient has normal right wrist ROM. Wrist Extension: normal Flexion: normal Pronation: normal Supination: normal Muscle Strength The patient has normal right wrist strength. Tests Phalen s Sign: negative Tinel's sign (median nerve): negative Anamika's test: negative Other Erythema: absent Sensation: normal Pulse: present Comments: B/l med/uln/rad/ax nerves intact Left Hand Exam Left hand exam is normal. Tenderness The patient is experiencing no tenderness. Range of Motion The patient has normal left wrist ROM. Wrist Extension: normal Flexion: normal Pronation: normal Supination: normal Muscle Strength The patient has normal left wrist strength. Tests Phalen s Sign: negative Tinel's sign (median nerve): negative Anamika's test: negative Other Erythema: absent Sensation: normal Pulse: present Right Elbow Exam Right elbow exam is normal. Tenderness The patient is experiencing no tenderness. Range of Motion Extension: normal Flexion: normal Pronation: normal Supination: normal Muscle Strength Pronation: 5/5 Supination: 5/5 Other Erythema: absent Sensation: normal Pulse: present Comments: Med,rad nerves intact Left Elbow Exam Tenderness The patient is experiencing tenderness in the medial epicondyle. Range of Motion Extension: normal Flexion: normal Pronation: normal Supination: normal Muscle Strength Pronation: 5/5 Supination: 5/5 Other Erythema: absent Sensation: normal Pulse: present Comments: Dec uln nerve left hand, weakness in paper grab Assessment and Plan Radiographs: No imaging to review. Impression: Encounter Diagnosis ICD-10-CM 1. Lesion of left ulnar nerve G56.22 NEUROMUSCULAR ULTRASOUND/NEUROLOGY MRI ELBOW WO IVCON LEFT NEUROMUSCULAR ULTRASOUND/NEUROLOGY 2. Elbow pain, chronic, left M25.522 MRI ELBOW WO IVCON LEFT G89.29 NEUROMUSCULAR ULTRASOUND/NEUROLOGY Today, in detail, through a thorough evaluation, we discussed possible etiologies of pain and our plans for further diagnostic and therapeutic interventions. We discussed strategies for decreasing pain and improving strength, stability and motion. Patient's questions were answered in detailed. Patient verbalizes understanding and agrees with the treatment plan as discussed. Nm us of left uln nerve Traumatic injury to left elbow so mri as also had surgery and having diff postop from distal bicepstendon repair Patient aware and in agreement of plan. All questions answered. Deandra Ochoa D.O. M.P.H. documented in this encounterOur [facility]12-[facility] Hospital Discharge instructions Patient Education 03/11/2024 23:14:52 Pain, Acute, Uncertain Cause Acute Pain, Uncertain Cause Pain can be caused by many conditions that range from very minor to very serious. In some cases, though, pain comes and goes with no apparent cause. We were not able to find the exact cause for your pain. At this time there is no sign of any serious illness causing your pain. More tests may be needed to determine the cause. In many cases, pain like this goes away by itself. Home care Take any medicines as prescribed. If another medicine was not prescribed for pain, you can take an dwcg-bpy-dijmjtw pain medicine such as ibuprofen or acetaminophen. Use these as directed on the label. Follow-up care Follow up with your healthcare provider or our staff as directed. When to seek medical advice Call your healthcare provider for any of the following: Pain changes in pattern Pain doesn't lessen or gets worse New symptoms appear Fever of 100.4 F (38 C) or higher, or as directed by your healthcare provider [phone] [employer]. [address] [place] [address]. All rights reserved. This information is not intended as a substitute for professional medical care. Always follow yourhealthcare professional's instructions. Follow Up Care 03/11/2024 22:55:11 With:DEANDRA OCHOA Address: [facility] [address] [place], [place] [id number] [facility] (1) When:1-2 days Comments:Schedule an appointment for close follow-up.Wear sling for support.Ice and elevate the painful elbow as much as possible.Use Tylenol or Motrin for pain as needed.Use gabapentin as prescribed for pain.Return to the ED if symptoms worsen. [facility] Emergency department Discharge summary Discharge Instructions Thank you for allowing [place] to assist you with your healthcare needs. The following is importantdischarge information regarding your hospital visit. Diagnosis from Today's Visit Left elbow pain What to Do Next Instructions from Your Care Team Discharge Home Equipment - Ordered -- Sling, Arm Left, 1 month(s), 03/11/24 23:10:00 EST Post Acute Orders No qualifying data available. You Need to Schedule the Following Appointments Follow Up with DEANDRA OCHOA When:Within 1-2 days Where:[facility] [address] [place] [address]- [facility] (1) Additional Information: Schedule an appointment for close follow-up. Wear sling for support. Ice and elevate the painful elbow as much as possible. Use Tylenol or Motrin for pain as needed. Use gabapentin as prescribed for pain. Return to the ED if symptoms worsen. Allergies codeine(Severe) Swelling of throat, Hives Latex Vicodin Hives lidocaine naproxen Medications Please ask your primary doctor or pharmacist before taking any other medication not listed, including over the counter drugs, herbal medications, vitamins and or supplements as they may interact withyour home medications. What How Much When Why Instructions Last Dose New gabapentin (gabapentin 300 mg oral capsule) 1 cap by mouth Three (3) times a day Left elbow pain Duration: 7 Days Printed Prescription Unchanged acetaminophen (Tylenol Extra Strength 500 mg oral tablet) 2 tab(s) by mouth Every 4 hours as needed for as needed for pain Unchanged sertraline (Zoloft 25 mg oral tablet) 0.5 tab(s) by mouth Once a day Anxiety Duration: 90 Days Please take this list to your next doctor s visit. Bring all medications you take, including over the counter medications, herbals and other supplements with you to your doctor s visit. Patients and families are reminded to discard old lists and to update any records with all medication providers or retail pharmacies. Education Materials Acute Pain, Uncertain Cause Pain can be caused by many conditions that range from very minor to very serious. In some cases, though, pain comes and goes with no apparent cause. We were not able to find the exact cause for your pain. At this time there is no sign of any serious illness causing your pain. More tests may be needed to determine the cause. In many cases, pain like this goes away by itself. Home care Take any medicines as prescribed. If another medicine was not prescribed for pain, you can take an ritz-ngi-iwlwhgt pain medicine such as ibuprofen or acetaminophen. Use these as directed on the label. Follow-up care Follow up with your healthcare provider or our staff as directed. When to seek medical advice Call your healthcare provider for any of the following: Pain changes in pattern Pain doesn't lessen or gets worse New symptoms appear Fever of 100.4 F (38 C) or higher, or as directed by your healthcare provider [phone] [employer]. [address] [place] [address], [place] [address]. All rights reserved. This information is not intended as a substitute for professional medical care. Always follow yourhealthcare professional's instructions. Additional Information VACCINATE! IT SAVES LIVES! Members of the community who have not yet received the COVID-19 vaccine and would like to receive it can visit one of [facility] vaccine clinics. There are many vaccine clinic locations within the [facility]. For locations and available times, please visit www.gettheshot.coronavirus.[place].gov/. It is important to note that some COVID mobile vaccine clinics are held outdoors and may be canceled in rainy or stormy conditions. To learn more about pediatric vaccinations (ages 5-11), we invite you to visit the [employer] [facility] webpage. https://[email or web address]/[email or web address] [email or web address].htmlTo learn more about the COVID-19 vaccine, we invite you to visit the CDC website for a list of frequently asked questions. https://www.cdc.gov/coronavirus/2019-ncov/vaccines/faq.html [email or web address] Patient Portal Access Instructions: Stay connected with your healthcare team and access your personal medical information anytime with the [email or web address] Patient Portal. If you would like a full copy of your medical records please contact the [facility] Medical Records Department Friday through Friday between 8a.m. and 4:30p.m. Please follow the directions below to access the portal: 1.Access the email account you provided upon registration to the hospital.2.Look for an invitation email from [facility].3.Open the email and access the invitation link: Accept Invitation to [email or web address].Fill in the required baugh to create your account. Sign into [email or web address] with your username and password that you created in the above steps to stay up to date. You can then view a summary of results, a summary of your visits, and the ability to download your summaries to your computer or send the information securely to a physician. Remember that your healthcare information is confidential, so carefully consider who you will allow to register on the [employer] Patient Portal for access to your information. You can also access the [employer] Patient Portal on the [employer] priscila. Simply click on Health Records under [employer] and then click on the [employer] logo. HOW TO SAFELY DISPOSE OF PRESCRIPTION MEDICATIONS Please use one of the following methods to safely dispose of your unused medications. 1.Use a drug disposal kit: the drug disposal pouch allows you to safely discard your old and unuseddrugs. Ask your nurse to give you one when you are discharged.2.Visit a local take-back location: Many local pharmacies and police departments have programs that collect old and unwanted prescriptiondrugs. Call your local pharmacy or go to http://MMIS.[employer]/5Q6Hr4p to find one close to you.3.Make use of household items: Use cat litter or old coffee grounds to dispose medications if other options arenot available. Mix your drugs with these household products, seal them in an airtight container andthrow it into the garbage. Call [facility]: [phone] to be sure your drugs can be disposed of in this way. Some medicines may require a different approach.4.Never flush your medications down the toilet. IF YOU HAVE BEEN PRESCRIBED AN OPIOIDS FOR PAIN If you have been prescribed an opioid (such as hydrocodone, oxycodone or morphine), it is critical to understand the possible side effects and risks of opioid pain medications. Even when taken as directed, opioids can have several side effects including: Tolerance, meaning you might need to take more of a medication for the same pain relief. Nausea, vomiting and/or constipation. Sleepiness, dizziness, dry mouth, confusion, depression or itching. Physical dependence, meaning you have withdrawal symptoms when a medication is stopped ? this can develop within a few days. KNOW YOUR RESPONSIBILITIES It is important to know exactly how much and how often to take the opioid pain medications you are prescribed. Never take opioids in higher amounts or more often than prescribed. Do not combine opioids with alcohol or other drugs that cause drowsiness, such as benzodiazepines, also known as benzos,including diazepam and alprazolam, muscle relaxants or sleep aids. Never sell or share prescriptionopioids. This is illegal. Store opioids in a secure place and out of reach of others (including children, family, friends and visitors). The last page(s) of this document has been signed and retained as a CHART COPY Signatures Patient Education Materials Pain, Acute, Uncertain Cause Medication Leaflets My discharge plan and instructions have been reviewed and explained to me and I,BARRETT LOPEZ understand my current condition and have read and understand these discharge instructions. I have received a written copy of the plan/instructions. If I have questions, I am aware that I should contact my doctor. Patient/Hr Director Signature: Date/Time: Relationship to Patient: Witness Name/Signature: Date/Time: [facility]12-12-2024 Telephone encounter Note* Telephone Encounter - Martha Dozier MA - 03/04/2024 10:03 AM EST Appt 03/03/2024 completed. Martha Dozier MA [facility]12-12-2024 Miscellaneous Notes* Telephone Encounter - Martha Dozier MA - 03/04/2024 10:03 AM EST Appt 03/03/2024 completed. Martha Dozier MA * Telephone Encounter - Martha Dozier MA - 03/01/2024 11:46 AM EST Please schedule pt for colon consult with Joy Salgado NP to update history and go over prep instructions. Martha Dozier MA * Telephone Encounter - IanVivian - 03/01/2024 9:53 AM EST Patient calling in requesting a colonoscopy, he had the upper GI done in November, however they were unable to do the lower GI due to him being impacted. Please review and advise patient. Vivian Sosa March 01, 2024 9:54 AM [facility] Telephone encounter Note * Telephone Encounter - Fidencio Brunson - 03/03/2024 10:09 AM EST 04-21-[address] [facility], provider went over all prep information with patient and gave direct number to call with any questions Fidencio Brunson [facility]12-11-2024 Miscellaneous Notes* Telephone Encounter - Fidencio Brunson - 03/03/2024 10:09 AM EST 04-21-[address] [facility], provider went over all prep information with patient and gave direct number to call with any questions Fidencio Brunson documented in [facility] encounter[facility] History of Present illness Narrative* Asia Salgado APRN.ISA - 03/03/2024 10:00 AM EST HISTORY AND PHYSICAL Barrett Lopez : 1975 REFERRING PHYSICIAN: No referring provider defined for this encounter. CHIEF COMPLAINT: Patient presents with: colon consult HPI: Barrett is a 48 year old male referred for endoscopy. Barrett notes here for repeat colonoscopy after poor prep. My note from 12/05/2023 for original scheduled colonoscopy Barrett notes abdominal pain. The pain occurs in the following locations: RUQ and RLQ . 10/10. Constant sharp/stabbing pain for the last 6 months. Refers putting a 2L pop bottle of cold water helps the pain. Epigastric pain is the worst when laying down at night. Barrett notes diarrhea x 1 week- not watery Barrett denies constipation. Barrett denies a change in bowel habits. Barrett denies melena. Barrett notes bright red blood per rectum on toilet paper. Barrett denies hemorrhoids. Notes family history of colon issues. Maternal grandfather- colon cancer Interim HPI Barrett was scheduled for colonoscopy in December- got the dates confused and showed up 1 month early. The provider attempted to perform a colonoscopy but there was stool in the rectum so it was aborted. Barrett c/o continued RUQ & RLQ pain- the same, no change. Notes only eats one meal a day Pain is at its worse after having BM Daily BM w/o straining No longer take Omeprazole. Last colonoscopy was 11/2022 with findings of diverticulosis. No specimens collected. Sedation received for EGD 11/2023 in [facility]: Fentanyl 100 micrograms IV, Midazolam 5 mg IV, Diphenhydramine 50 mg IV, Benzocaine spray Current Outpatient Medications Medication Sig ZOLOFT 25 mg tablet Take 25 mg by mouth once daily. cyclobenzaprine (FLEXERIL) 10 mg tablet Take by mouth once daily. peg 3350-Electrolytes (GOLYTELY) 236-22.74-6.74 -5.86 gram suspension Take 4,000 mL by mouth one time only for 1 dose. Refer to printed prep instructions from your provider. No current facility-administered medications for this visit. 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 COLONOSCOPY FLX DX W/COLLJ SPEC WHEN PFRMD 04/03/2021 repeat in 1 year-due to poor bowel prep EGD 11/26/2022 EGD 12/08/2023 ESOPHAGOGASTRODUODENOSCOPY TRANSORAL DIAGNOSTIC 04/03/2018 EGD ESOPHAGOGASTRODUODENOSCOPY TRANSORAL DIAGNOSTIC 01/16/2021 ESOPHAGOGASTRODUODENOSCOPY TRANSORAL DIAGNOSTIC 04/03/2021 FOOT SURGERY HX Bilateral 1991 preair of broken feet FRACTURE SURGERY HAND SURGERY HX Left 2006 repair of fracture KNEE SURGERY HX Right 2016 LAPS SURG CHOLECYSTECTOMY W/CHOLANGIOGRAPHY 12/08/2017 PAST SURGICAL HISTORY OF 04/2007 fracture/Deviated septum TONSILLECTOMY & ADENOIDECTOMY AGE 14/> 2011 T/A (over age 14 years) TONSILLECTOMY HX FAMILY HISTORY Problem Relation Age of Onset Diabetes Mother Hypertension Mother Cancer Mother lung and brain Hearing Loss Maternal Grandmother Diabetes Maternal Grandmother Heart Maternal Grandfather AR other (unknown) Father brain aneurysm? Social History Tobacco Use Smoking status: Never Smokeless tobacco: Never Vaping Use Vaping status: Never Used Substance Use Topics Alcohol use: No Drug use: No REVIEW OF SYMPTOMS: REVIEW OF SYSTEMS: General: The patient + fatigue, + weight loss, + weight gain, denies feeling hot, and feelings of cold. Eyes: The patient denies glaucoma, denies eye injury/surgery, denies glasses or contacts. Ear/Nose/Throat: The patient denies allergies, denies hayfever, denies ear infections, and denies bloody noses. Cardiovascular: The patient denies chest pain, denies heart disease, denies high blood pressure, denies high cholesterol, and denies poor circulation. Respiratory: The patient denies tuberculosis, denies pneumonia, denies frequent cough, denies shortness of breath, and denies coughing up blood. Gastrointestinal: The patient denies difficulty swallowing, + acid reflux, denies ulcers, denies jaundice/hepatitis, denies gallbladder problems, denies vomiting, denies black or tarry stools, denieshemorrhoids, denies bleeding from rectum, denies diverticulitis, denies constipation, denies diarrhea, denies loss of stool control, and denies hernias. Kidney/Bladder: The patient denies kidney stones, denies urine infections, and denies bloody urine. Skin: The patient denies a history of skin cancer, denies bleeding/changing moles, and denies a history of skin rash. Neurologic: The patient denies a history of epilepsy/convulsions, denies headaches, denies head/spinal injuries, and + stroke/TIA. Psychiatric: The patient denies psychiatric medications, denies depression, and denies voices. Endocrine: The patient denies thyroid disorders, denies diabetes, and denies hormonal problems. Hematologic: The patient denies a history of bruising, denies bleeding, and denies anemia. Infections: The patient denies a history of measles and mumps, denies rheumatic fever, and denies sexually transmitted diseases. Musculoskeletal: The patient + back pain/injury, + back problems, + sciatica, denies knee/foot trouble, + arthritis, or denies gout. PHYSICAL EXAMINATION: General: The patient is 48 year old, male well nourished, well hydrated in no acute distress. The patient is oriented to time, place, and person. VITALS: Blood pressure 130/87, pulse 92, weight (!) 143.1 kg (315 lb 6.4 oz), SpO2 97%. Body mass index is 49.4 kg/m . HEENT: Normal cephalic, ataumatic, pupils are equally round, sclera are anicteric, mucous membranesare moist, oropharynx is clear. Neck has no masses, asymmetry or lymphadenopathy. Respiratory: Clear to auscultation and percussion. Normal respiratory excursion and pattern. Cardiac: Examination is regular rate and rhythm. Normal S1/S2 Abdominal exam: Soft, nontender, with no palpable masses. No hepatosplenomegaly. No palpable hernias. Extremities: no clubbing, cyanosis or edema. No adenopathy. LABORATORY VALUES: As Noted RADIOLOGIC STUDIES: As Noted Assessment IMPRESSION: chronic RLQ pain, aborted colonoscopy PLAN: I have reviewed my findings with the surgeon. Will plan for lower endoscopy. We discussed therisks and benefits of the planned endoscopy. I have informed the patient that complications can occur including failure to complete the endoscopy and perforation. Barrett had the opportunity to ask questions concerning the planned endoscopy. My staff has also explained the procedure to the patient in understandable terms and has given the patient printed material concerning the procedure. Barrett freely consents to surgery. I plan to use Golytely bowel preparation- per Dr. Andersen able to keep patient in [facility] I have explained to the patient the difference between IV conscious sedation and MAC anesthesia - and I have offered either, according to the patient's wishes. I have explained that with IV conscioussedation there is no anesthesia provider available and therefore there is a limitation of the amount of IV medications that can be given and that the patient may wake up in the middle of the procedure and/or experience pain/discomfort during the procedure. Further discussion was done and the patient was given the opportunity to ask questions and all questions were answered. Barrett chooses IV conscious sedation. Barrett was counseled that if there are changes in his/her medical condition, to let the office knowif surgery should proceed. If there are changes in patient's medical condition from time of this encounter to the day of the procedure that preclude anesthesia, patient may have procedure cancelled for patient's safety. Diagnoses: (R10.31, G89.29) Chronic RLQ pain (primary encounter diagnosis) Portions of this documentation were copied and pasted from previous office visit notes in order to provide a cohesive continuity of the history. The note has been reviewed and edited and updated as necessary. Asia Salgado APRN.TELEVISION CABINET FINISHER documented in this encounterOur [facility]12-[facility]24 NoteHNO ID: [id number] Author: ASIA SALGADO APRN.ISA Service: ? Author Type: Nurse Practitioner Type: Progress Notes Filed: 03/03/2024 10:17 Note Text: HISTORY AND PHYSICAL Barrett Lopez : 1975 REFERRING PHYSICIAN: No referring provider defined for this encounter. CHIEF COMPLAINT: Patient presents with: colon consult HPI: Barrett is a 48 year old male referred for endoscopy. Barrett notes here for repeat colonoscopy after poor prep. My note from 12/05/2023 for original scheduled colonoscopy Barrett notes abdominal pain. The pain occurs in the following locations: RUQ and RLQ . 12/31. Constant sharp/stabbing pain for the last 6 months. Refers putting a 2L pop bottle of cold water helps the pain. Epigastric pain is the worst when laying down at night. Barrett notes diarrhea x 1 week- not watery Barrett denies constipation. Barrett denies a change in bowel habits. Barrett denies melena. Barrett notes bright red blood per rectum on toilet paper. Barrett denies hemorrhoids. Notes family history of colon issues. Maternal grandfather- colon cancer Interim HPI Barrett was scheduled for colonoscopy in December- got the dates confused and showed up 1 month early. The provider attempted to perform a colonoscopy but there was stool in the rectum so it was aborted. Barrett c/o continued RUQ AND RLQ pain- the same, no change. Notes only eats one meal a day Pain is at its worse after having BM Daily BM w/o straining No longer take Omeprazole. Last colonoscopy was 11/2022 with findings of diverticulosis. No specimens collected. Sedation received for EGD 11/2023 in [facility]: Fentanyl 100 micrograms IV, Midazolam 5 mg IV, Diphenhydramine 50 mg IV, Benzocaine spray Current Outpatient Medications Medication Sig ZOLOFT 25 mg tablet Take 25 mg by mouth once daily. cyclobenzaprine (FLEXERIL) 10 mg tablet Take by mouth once daily. peg 3350-Electrolytes (GOLYTELY) 236-22.74-6.74 -5.86 gram suspension Take 4,000 mL by mouth one time only for 1 dose. Refer to printed prep instructions from your provider. No current facility-administered medications for this visit. 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 COLONOSCOPY FLX DX W/COLLJ SPEC WHEN PFRMD 04/03/2021 repeat in 1 year-due to poor bowel prep EGD 11/26/2022 EGD 12/08/2023 ESOPHAGOGASTRODUODENOSCOPY TRANSORAL DIAGNOSTIC 04/03/2018 EGD ESOPHAGOGASTRODUODENOSCOPY TRANSORAL DIAGNOSTIC 01/16/2021 ESOPHAGOGASTRODUODENOSCOPY TRANSORAL DIAGNOSTIC 04/03/2021 FOOT SURGERY HX Bilateral 1991 preair of broken feet FRACTURE SURGERY HAND SURGERY HX Left 2006 repair of fracture KNEE SURGERY HX Right 2016 LAPS SURG CHOLECYSTECTOMY W/CHOLANGIOGRAPHY 12/08/2017 PAST SURGICAL HISTORY OF 04/2007 fracture/Deviated septum TONSILLECTOMY AND ADENOIDECTOMY AGE 14/> 2011 T/A (over age 14 years) TONSILLECTOMY HX FAMILY HISTORY Problem Relation Age of Onset Diabetes Mother Hypertension Mother Cancer Mother lung and brain Hearing Loss Maternal Grandmother Diabetes Maternal Grandmother Heart Maternal Grandfather AR other (unknown) Father brain aneurysm? Social History Tobacco Use Smoking status: Never Smokeless tobacco: Never Vaping Use Vaping status: Never Used Substance Use Topics Alcohol use: No Drug use: No REVIEW OF SYMPTOMS: REVIEW OF SYSTEMS: General: The patient + fatigue, + weight loss, + weight gain, denies feeling hot, and feelings of cold. Eyes: The patient denies glaucoma, denies eye injury/surgery, denies glasses or contacts. Ear/Nose/Throat: The patient denies allergies, denies hayfever, denies ear infections, and denies bloody noses. Cardiovascular: The patient denies chest pain, denies heart disease, denies high blood pressure, denies high cholesterol, and denies poor circulation. Respiratory: The patient denies tuberculosis, denies pneumonia, denies frequent cough, denies shortness of breath, and denies coughing up blood. Gastrointestinal: The patient denies difficulty swallowing, + acid reflux, denies ulcers, denies jaundice/hepatitis, denies gallbladder problems, denies vomiting, denies black or tarry stools, denies hemorrhoids, denies bleeding from rectum, denies diverticulitis, denies constipation, denies (more content not included)...[facility]12-09-2024 Telephone encounter Note* Telephone Encounter - Martha Dozier MA - 03/01/2024 11:46 AM EST Please schedule pt for colon consult with Joy Salgado NP to update history and go over prep instructions. Martha Dozier MA [facility]12-09-2024 Telephone encounter Note* Telephone Encounter - Vivian Sosa - 03/01/2024 9:53 AM EST Patient calling in requesting a colonoscopy, he had the upper GI done in November, however they were unable to do the lower GI due to him being impacted. Please review and advise patient. Vivian Sosa March 01, 2024 9:54 AM [facility]11-15-2024 Hospital Discharge instructions Patient Education 02/06/2024 21:02:55 Flank Pain, Uncertain Cause Flank Pain, Uncertain Cause The flank is the area between your upper abdomen and your back. Pain there is often caused by a problem with your kidneys. It might be a kidney infection or a kidney stone. Other causes of flank paininclude spinal arthritis, a pinched nerve from a back injury, or a back muscle strain or spasm. The cause of your flank pain is not certain. You may need other tests. Home care Follow these tips when caring for yourself at home: You may use acetaminophen or ibuprofen to control pain, unless your health care provider prescribedanother medicine. If you have chronic liver or kidney disease, talk with your provider before taking these medicines. Also talk with your provider first if you ve ever had a stomach ulcer or GI bleeding. If the pain is coming from your muscles, you may get relief with ice or heat. During the first 2 days after the injury, put an ice pack on the painful area for 20 minutes every 2 to 4 hours. This will reduce swelling and pain. A hot shower, hot bath, or heating pad works well for a muscle spasm. You can start with ice, then switch to heat after 2 days. You might find that alternating ice and heatworks well. Use the method that feels the best to you. Follow-up care Follow up with your healthcare provider if your symptoms don t get better over the next few days. When to seek medical advice Call your healthcare provider right away if any of these happen: Repeated vomiting Fever of 100.4 F (38 C) or higher, or as directed by your health care provider Flank pain that gets worse Pain that spreads to the front of your belly (abdomen) Dizziness, weakness, or fainting Blood in your urine Burning feeling when you urinate or the need to urinate often Pain in one of your legs that gets worse Numbness or weakness in a leg [id number] [employer]. [address] [place] [address]. All rights reserved. This information is not intended as a substitute for professional medical care. Always follow yourhealthcare professional's instructions. Follow Up Care 02/06/2024 19:37:36 With:EILEEN COONEY Address: [address] [place] [id number] [phone] When:2-4 days [facility] 11-15-2024 Note Discharge Instructions Thank you for allowing [place] to assist you with your healthcare needs. The following is importantdischarge information regarding your hospital visit. Diagnosis from Today's Visit Flank pain What to Do Next Instructions from Your Care Team No qualifying data available. Post Acute Orders No qualifying data available. You Need to Schedule the Following Appointments Follow Up with EILEEN COONEY When:Within 2-4 days Where:[address] [place] [id number] [phone] Allergies codeine(Severe) Swelling of throat, Hives Latex Vicodin Hives lidocaine naproxen Medications Please ask your primary doctor or pharmacist before taking any other medication not listed, including over the counter drugs, herbal medications, vitamins and or supplements as they may interact withyour home medications. What How Much When Why Instructions Last Dose New ondansetron (ondansetron 4 mg oral tablet, disintegrating) 1 tab(s) by mouth Every 8 hours as needed for as needed for nausea/vomiting Duration: 3 Days Printed Prescription Unchanged acetaminophen (Tylenol Extra Strength 500 mg oral tablet) 2 tab(s) by mouth Every 4 hours as needed for as needed for pain Unchanged aspirin (aspirin 81 mg oral tablet, chewable) 1 tab(s) by mouth Once a day with a meal Duration: 30 Days Unchanged baclofen (baclofen 20 mg oral tablet) 1 tab(s) by mouth Three (3) times a day Duration: 5 Days Unchanged sertraline (Zoloft 25 mg oral tablet) 1 tab(s) by mouth Once a day Anxiety Duration: 90 Days Please take this list to your next doctor s visit. Bring all medications you take, including over the counter medications, herbals and other supplements with you to your doctor s visit. Patients and families are reminded to discard old lists and to update any records with all medication providers or retail pharmacies. Medication Leaflets ondansetron (oral) (on SHARONA carter) What is the most important information I should know about ondansetron? Tell your doctor about all your other medicines. Some drugs should not be used with ondansetron. What is ondansetron? Ondansetron is used to prevent nausea and vomiting that may happen with certain cancer medicines (chemotherapy), or after surgery, or radiation treatment . Ondansetron may be used for purposes not listed in this medication guide. What should I discuss with my health care provider before taking ondansetron? You should not use ondansetron if you are allergic to it or similar medicines (dolasetron, granisetron, palonosetron). Some drugs should not be used with ondansetron. Your treatment plan may change if you also use apomorphine. Tell your doctor if you have or have ever had: an electrolyte imbalance (such as low blood levels of potassium or magnesium); congestive heart failure, slow heartbeats; heart rhythm disorder such as long QT syndrome (in you or a family member); an obstruction in the stomach or intestines, a change in bowel habits; a surgery on your stomach or intestines; or severe liver disease. The orally disintegrating tablet may contain phenylalanine and could be harmful if you have phenylketonuria (PKU). Tell your doctor if you also use stimulant medicine, opioid medicine, herbal products, or medicine for depression, mental illness, Parkinson's disease, migraine headaches, serious infections, or prevention of nausea and vomiting. An interaction with ondansetron could cause a serious condition called serotonin syndrome. Tell your doctor if you are or . Ondansetron is not approved for use by anyone younger than 4 years old. How should I take ondansetron? Follow all directions on your prescription label and read all medication guides or instruction sheets. Use the medicine exactly as directed. Ondansetron is usually taken just before surgery, chemotherapy, or radiation treatment. Follow yourdoctor's dosing instructions very carefully. Measure liquid medicine with the supplied measuring device (not a kitchen spoon). To take the orally disintegrating tablet: Keep the tablet in its blister pack until you are ready to take it. Open the package and peel back the foil. Use dry hands to remove the orally disintegrating tablet and place it in your mouth. Do not push a tablet through the foil or you may damage the tablet. Allow the orally disintegrating tablet to dissolve in your mouth without chewing. Do not swallow whole. Store in the original container at room temperature away from moisture, heat, and light. Store liquid medicine in an upright position. What happens if I miss a dose? Ondansetron is used when needed. If you are on a dosing schedule, skip any missed dose. Do not use two doses at one time. What happens if I overdose? Seek emergency medical attention or call the Poison Help line at . What should I avoid while taking ondansetron? Follow your doctor's instructions about any restrictions on food, beverages, or activity. What are the possible side effects of ondansetron? Get emergency medical help if you have signs of an allergic reaction: hives, difficult breathing, swelling of your face, lips, tongue, or throat. Seek medical attention right away if you have symptoms of serotonin syndrome such as: agitation, hallucinations, fever, sweating, shivering, fast heart rate, muscle stiffness, twitching, loss of coordination, nausea, vomiting, or diarrhea. Seek emergency medical help if you have signs of a heart attack: chest pain that spreads to your jaw or shoulder, nausea, and sweating. Call your doctor at once if you have: severe stomach pain, bloating, constipation, or any change in bowel habits; or dizziness, feeling lightheaded, fainting, slow, fast, or uneven heartbeats. Common side effects may include: diarrhea or constipation; headache; shortness of breath, rapid breathing, fast heartbeats; or feeling unwell, tiredness. This is not a complete list of side effects and others may occur. Call your doctor for medical advice about side effects. You may report side effects to FDA at 4-870-IKK-8074. What other drugs will affect ondansetron? Ondansetron can cause a serious heart problem. Your risk may be higher if you also use certain other medicines for infections, asthma, heart problems, high blood pressure, depression, mental illness,cancer, malaria, or HIV. Many drugs can affect ondansetron. This includes prescription and zrdl-tyk-kubzldb medicines, vitamins, and herbal products. Not all possible interactions are listed here. Tell your doctor about all other medicines you use. Where can I get more information? Your doctor or pharmacist can provide more information about ondansetron. Remember, keep this and all other medicines out of the reach of children, never share your medicines with others, and use this medication only for the indication prescribed. Every effort has been made to ensure that the information provided by [employer]. ('[employer]') is accurate, up-to-date, and complete, but no guarantee is made to that effect. Drug information contained herein may be time sensitive. [employer] information has been compiled for use by healthcare practitioners and consumers in the [place] and therefore [employer] does not warrant that uses outside of the [place] are appropriate, unless specifically indicated otherwise. [employer] drug information does not endorse drugs, diagnose patients or recommend therapy. [employer] drug information isan informational resource designed to assist licensed healthcare practitioners in caring for their p atients and/or to serve consumers viewing this service as a supplement to, and not a substitute for, the expertise, skill, knowledge and judgment of healthcare practitioners. The absence of a warningfor a given drug or drug combination in no way should be construed to indicate that the drug or drug combination is safe, effective or appropriate for any given patient. [employer] does not assume any responsibility for any aspect of healthcare administered with the aid of information [employer] provides. The information contained herein is not intended to cover all possible uses, directions, precautions, warnings, drug interactions, allergic reactions, or adverse effects. If you have questions about the drugs you are taking, check with your doctor, nurse or pharmacist. Copyright 4608-2951 [employer]. Version: 17.01. Revision Date: 12/16/2023. Education Materials Flank Pain, Uncertain Cause The flank is the area between your upper abdomen and your back. Pain there is often caused by a problem with your kidneys. It might be a kidney infection or a kidney stone. Other causes of flank paininclude spinal arthritis, a pinched nerve from a back injury, or a back muscle strain or spasm. The cause of your flank pain is not certain. You may need other tests. Home care Follow these tips when caring for yourself at home: You may use acetaminophen or ibuprofen to control pain, unless your health care provider prescribedanother medicine. If you have chronic liver or kidney disease, talk with your provider before taking these medicines. Also talk with your provider first if you ve ever had a stomach ulcer or GI bleeding. If the pain is coming from your muscles, you may get relief with ice or heat. During the first 2 days after the injury, put an ice pack on the painful area for 20 minutes every 2 to 4 hours. This will reduce swelling and pain. A hot shower, hot bath, or heating pad works well for a muscle spasm. You can start with ice, then switch to heat after 2 days. You might find that alternating ice and heatworks well. Use the method that feels the best to you. Follow-up care Follow up with your healthcare provider if your symptoms don t get better over the next few days. When to seek medical advice Call your healthcare provider right away if any of these happen: Repeated vomiting Fever of 100.4 F (38 C) or higher, or as directed by your health care provider Flank pain that gets worse Pain that spreads to the front of your belly (abdomen) Dizziness, weakness, or fainting Blood in your urine Burning feeling when you urinate or the need to urinate often Pain in one of your legs that gets worse Numbness or weakness in a leg 1443-2003 [employer]. [address] [place] [address]. All rights reserved. This information is not intended as a substitute for professional medical care. Always follow yourhealthcare professional's instructions. Additional Information VACCINATE! IT SAVES LIVES! Members of the community who have not yet received the COVID-19 vaccine and would like to receive it can visit one of [facility] vaccine clinics. There are many vaccine clinic locations within the [facility]. For locations and available times, please visit www.gettheshot.coronavirus.[place].gov/. It is important to note that some COVID mobile vaccine clinics are held outdoors and may be canceled in rainy or stormy conditions. To learn more about pediatric vaccinations (ages 5-11), we invite you to visit the [facility] webpage. [email or web address].[email or web address].org/pages/4902-Qrzka-Mrajvmxxjxq-Nqahvrncas-Lhtho-Zlq stions.htmlTo learn more about the COVID-19 vaccine, we invite you to visit the CDC website for a list of frequently asked questions. https://www.cdc.gov/coronavirus/2019-ncov/vaccines/faq.html [place] [employer] Patient Portal Access Instructions: Stay connected with your healthcare team and access your personal medical information anytime with the [email or web address] Patient Portal. If you would like a full copy of your medical records please contact the [facility] Medical Records Department Friday through Friday between 8a.m. and 4:30p.m. Please follow the directions below to access the portal: 1.Access the email account you provided upon registration to the [facility].2.Look for an invitation email from [facility].3.Open the email and access the invitation link: Accept Invitation to [place] [facility]4.Fill in the required baugh to create your account. Sign into [email or web address] with your username and password that you created in the above steps to stay up to date. You can then view a summary of results, a summary of your visits, and the ability to download your summaries to your computer or send the information securely to a physician. Remember that your healthcare information is confidential, so carefully consider who you will allow to register on the [email or web address] Patient Portal for access to your information. You can also access the [email or web address] Patient Portal on the [employer]. Simply click on Health Records under HealthData and then click on the [employer] logo. HOW TO SAFELY DISPOSE OF PRESCRIPTION MEDICATIONS Please use one of the following methods to safely dispose of your unused medications. 1.Use a drug disposal kit: the drug disposal pouch allows you to safely discard your old and unuseddrugs. Ask your nurse to give you one when you are discharged.2.Visit a local take-back location: Many local pharmacies and police departments have programs that collect old and unwanted prescriptiondrugs. Call your local pharmacy or go to http://bit.ly/8B6Gq6u to find one close to you.3.Make use of household items: Use cat litter or old coffee grounds to dispose medications if other options arenot available. Mix your drugs with these household products, seal them in an airtight container andthrow it into the garbage. Call [facility]: [phone] to be sure your drugs can be disposed of in this way. Some medicines may require a different approach.4.Never flush your medications down the toilet. IF YOU HAVE BEEN PRESCRIBED AN OPIOIDS FOR PAIN If you have been prescribed an opioid (such as hydrocodone, oxycodone or morphine), it is critical to understand the possible side effects and risks of opioid pain medications. Even when taken as directed, opioids can have several side effects including: Tolerance, meaning you might need to take more of a medication for the same pain relief. Nausea, vomiting and/or constipation. Sleepiness, dizziness, dry mouth, confusion, depression or itching. Physical dependence, meaning you have withdrawal symptoms when a medication is stopped ? this can develop within a few days. KNOW YOUR RESPONSIBILITIES It is important to know exactly how much and how often to take the opioid pain medications you are prescribed. Never take opioids in higher amounts or more often than prescribed. Do not combine opioids with alcohol or other drugs that cause drowsiness, such as benzodiazepines, also known as benzos,including diazepam and alprazolam, muscle relaxants or sleep aids. Never sell or share prescriptionopioids. This is illegal. Store opioids in a secure place and out of reach of others (including children, family, friends and visitors). The last page(s) of this document has been signed and retained as a CHART COPY Signatures Patient Education Materials Flank Pain, Uncertain Cause Medication Leaflets ondansetron (oral) My discharge plan and instructions have been reviewed and explained to me and I,BARRETT LOPEZ understand my current condition and have read and understand these discharge instructions. I have received a written copy of the plan/instructions. If I have questions, I am aware that I should contact my doctor. Patient/Hr Director Signature: Date/Time: Relationship to Patient: Witness Name/Signature: Date/Time: [facility]11-15-2024 Note ORIGINAL EXAMINATION: CT OF THE ABDOMEN AND PELVIS WITH OCOFKNOV85/15/2024 8:[address] ABDOMEN/PELVIS WITH CONTRAST TECHNIQUE: CT of the abdomen and pelvis was performed with the administration of intravenous contrast. Multiplanar reformatted images are provided for review. Automated exposure control, iterative reconstruction, and/or weight based adjustment of the mA/kV was utilized to reduce the radiation dose to as low as reasonably achievable. COMPARISON: None available HISTORY: ORDERING SYSTEM PROVIDED HISTORY: Reason for Exam: right flank/groin pain today. thinks that he may have passed a kidney stone at home while voiding earlier. pain continues at 10 of 10 pain FINDINGS: The size, density, and morphology of the liver, spleen, adrenals, kidneys, pancreas and unopacified loops of bowel are unremarkable. Bilateral nonobstructive renal calcifications. The opacified aorta demonstrates normal size and morphology without aneurysmal dilation or dissection. There are no enlarged lymph nodes by pathologic size criteria. Scattered diverticula noted throughout the colon. Prior partial colectomy at the sigmoid colon with reanastomosis. There is no free fluid within the pelvis. Calcified stone is not identified within the bladder. The bladder and pelvic organs have an unremarkable CT appearance. Bilateral fat containing inguinal hernias. The osseous structures are without gross lytic or sclerotic lesion. The lung bases are clear. IMPRESSION: 1. Bilateral nonobstructive nephrolithiasis. 2. Diverticulosis without diverticulitis. 3. Postsurgical changes. Interpreted by: Vic Bear MD Preliminary Report By: Vic Bear MD Electronically signed By Vic Bear MD Dictated Date: 02/06/2024 8:27:37 PM Prelim Date: 02/06/2024 8:44:09 PM Sign Date: 02/06/2024 8:44:09 PM [facility]ing [facility] of Present illness Narrative* Asia Salgado APRN.TELEVISION CABINET FINISHER - 12/17/2023 2:00 PM EDT FOLLOW UP VISIT - ENDOSCOPY Barrett Lopez 1975 [id number] REFERRING PHYSICIAN: No referring provider defined for this encounter. Barrett Lopez is a patient I am following for chronic rRUQ & RLQ pain, BRBPR, reflux. Dr. Cunha performed upper & lower endoscopy on 12/08/23. EGD Impression: - Z-line variable, 40 cm from the incisors. Biopsied. - Normal stomach. Biopsied. - Normal examined duodenum. Biopsied. COLONOSCOPY Impression: - The procedure was aborted due to inadequate bowel prep. - Preparation of the colon was unsatisfactory. - Anal fissure found on perianal exam. - Stool in the rectum. - No specimens collected. PATHOLOGY FINAL DIAGNOSIS A. Small Bowel, Duodenum, Biopsy -Superficial fragments of duodenal mucosa with mild reactive changes and normal villous architecture, B. Stomach, antrum, biopsy -Gastric antral mucosa with no significant histopathologic changes, negative for Helicobacter pylori type organisms C. Esophagus, distal, biopsy -Squamous mucosa with focal reactive changes The patient notes no complaints since the procedure. VITALS: There were no vitals taken for this visit. General: patient is alert, cooperative, pleasant and in no acute distress On examination, the abdomen is benign. Assessment ASSESSMENT/PLAN: 1. Gastroesophageal reflux disease without esophagitis - ICD9: 530.81, ICD10: K21.9 (primary diagnosis) - Discussed lifestyle modifications including losing weight, limiting caffeine, no meals three hours before sleep, and head of bed elevation - Continue treatment with Prilosec 40 mg QD 3. Anal fissure - ICD9: 565.0, ICD10: K60.2 - Perform sitz baths twice a day and after each bowel movement. - Place dibucaine ointment on anus as needed and before all bowel movements. - Keep stools soft and avoid straining if possible. Miralax & fiber daily The operative findings and pathology report were reviewed with the patient, and the patient has hadthe opportunity to ask questions and have questions answered. If the patient notes any problems or changes in bowel function, the patient should contact me immediately. Otherwise I recommend follow up colonoscopy in 9 years. HM updated and recall letter generated. Discussed treatment plan and patient voices understanding. Patient's questions answered appropriately. Medications and potential side effects were discussed and patient voices understanding. Return to the office as scheduled or as needed for worsening/no improvement. Asia Waldemar, HADOOP JAVA DEVELOPER.ISA documented in this encounterOur [facility] NoteHNO ID: [id number] Author: ASIA SALGADO APRN.CNP Service: ? Author Type: Nurse Practitioner Type: Progress Notes Filed: 12/17/2023 13:49 Note Text: FOLLOW UP VISIT - ENDOSCOPY Barrett Lopez 1975 [id number] REFERRING PHYSICIAN: No referring provider defined for this encounter. Barrett Lopez is a patient I am following for chronic rRUQ AND RLQ pain, BRBPR, reflux. Dr. Cunha performed upper AND lower endoscopy on 12/08/23. EGD Impression: - Z-line variable, 40 cm from the incisors. Biopsied. - Normal stomach. Biopsied. - Normal examined duodenum. Biopsied. COLONOSCOPY Impression: - The procedure was aborted due to inadequate bowel prep. - Preparation of the colon was unsatisfactory. - Anal fissure found on perianal exam. - Stool in the rectum. - No specimens collected. PATHOLOGY FINAL DIAGNOSIS A. Small Bowel, Duodenum, Biopsy -Superficial fragments of duodenal mucosa with mild reactive changes and normal villous architecture, B. Stomach, antrum, biopsy -Gastric antral mucosa with no significant histopathologic changes, negative for Helicobacter pylori type organisms C. Esophagus, distal, biopsy -Squamous mucosa with focal reactive changes The patient notes no complaints since the procedure. VITALS: There were no vitals taken for this visit. General: patient is alert, cooperative, pleasant and in no acute distress On examination, the abdomen is benign. Assessment ASSESSMENT/PLAN: 1. Gastroesophageal reflux disease without esophagitis - ICD9: 530.81, ICD10: K21.9 (primary diagnosis) - Discussed lifestyle modifications including losing weight, limiting caffeine, no meals three hours before sleep, and head of bed elevation - Continue treatment with Prilosec 40 mg QD 3. Anal fissure - ICD9: 565.0, ICD10: K60.2 - Perform sitz baths twice a day and after each bowel movement. - Place dibucaine ointment on anus as needed and before all bowel movements. - Keep stools soft and avoid straining if possible. Miralax AND fiber daily The operative findings and pathology report were reviewed with the patient, and the patient has had the opportunity to ask questions and have questions answered. If the patient notes any problems or changes in bowel function, the patient should contact me immediately. Otherwise I recommend follow up colonoscopy in 9 years. HM updated and recall letter generated. Discussed treatment plan and patient voices understanding. Patient's questions answered appropriately. Medications and potential side effects were discussed and patient voices understanding. Return to the office as scheduled or as needed for worsening/no improvement. Asia Salgado APRN.[facility]09-25-2024 Instructions* Patient Instructions* Asia Salgado APRN.[facility] - 12/17/2023 1:17 PM EDT Get dibucaine cream [id number] or on amazon. Apply before bowel movements or with pain Perform sitz bath 3-4 x a day and after bowel movements Keep bowels soft with Miralax daily 4. Continue with Prilosec in the morning and pepcid before bed 5. Work on lifestyle factors that increase GERD INSTRUCTIONS FOR AN ANAL FISSURE You have an anal fissure. An anal fissure is a small tear at at the edge of the anus. It is usually caused by straining with bowel movements, but sometime it occurs during periods of loose stools or diarrhea. 70% of the time, anal fissures will heal will regulation of the stools and conservative measures. Regulation of the bowel habits is most important - The fissure will not heal if there is continued straining. I usually recommend fiber for initial regularion. Add Miralax - now available over the counter, if fiber alone isn't helping the constipation. Healing of the fissure will not occur until bowel regulation is achieved I recommend that you avoid spicy foods and perform sitz baths three to four times per day and afterbovel movements. A sitz bath is drawing luke warm water in the bathtub and soaking. The purpose is to relax the sphincter and rinse the anal area. DO NOT ADD EPSOM SALTS OR OTHER INGREDIENTS THIS CAN INCREASE THE BURNING. I recommend a topical pain ointment, usually dibucaine or proctocream With each bowel movement, I recommend placing the topcial pain ointment prior to the bowel movements and use baby wipes and perform a sitz bath after each bowel movement. Dibucaine can be used between times as needed for anal pain. If the above measures are not helping within one week, call the office, and we may prescribe Diltiazem ointment. ( this is different from Dibucaine). If prescribed, it should be applied to the anal area twice a day. If you note any difficulties or concerns, you should contact our office immediately. GASTRITIS/GERD I discussed with you the findings of your upper endoscopy. Your upper endoscopy demonstrated signs of peptic ulcer disease or irritation. This can be seen as a range of issues from actual ulcers in the stomach or duodenum (first part of the small bowel) or irritation ranging from redness to more significant irritation with erosions of the stomach or duodenum. These conditions are usually caused from a combination of too much acid production or too little protective mucus production in the stomach. Factors that increase acid production include smoking and stress. If you smoke, stopping smoking will often cure these issues without needing other medications. Factors that decrease the stomach's production of protective mucus include alcohol consumption, smoking, aspirin and other anti-inflammatory use. Over the counter medications including antiacids and acid reducing medications including H2 blockers (Zantac and the like) and proton pump inhibitors (prilosec, prevacid and the like) neutralize or prevent acid production. Avoiding smoking, alcohol and antiinflammatory medications are important in the successful treatment of peptic diseases. Your esophagus can look normal at upper endoscopy and you still have GERD. Multiple factors effect GERD symptoms - acid production, obesity, smoking, food consumption, and time of meals Other factors that contribute to GERD and esophagitis are being overweight, eating large meals before laying down and certain foods. Weight loss will help improve many GERD complaints. Remaining upright after eating large meals and having a small supper will also help symptoms. Avoiding food that contribute to reflux - chocolate, caffeine, cheddar cheese may also help. New or worsening symptoms such are epigastric pain, burning, difficulty swallowing or food stickingshould be relayed to your physician. Feeling full early after eating, or black, tarry, foul smelling stools are also worrisome. If you have any difficulties or concerns, you should contact our office immediately. documented in this encounterOur [facility] Note* Discharge Instr - Nursing - Dasia Vee RN - 12/08/2023 11:13 AM EDT The patient received a copy of Colonoscopy and EGD discharge instructions that contain information for how to contact the physician who performed the procedure and when to seek medical care.YANIRA Holden [facility]09-16-2024 Miscellaneous Notes* Discharge Instr - Nursing - Dasia Vee RN - 12/08/2023 11:13 AM EDT The patient received a copy of Colonoscopy and EGD discharge instructions that contain information for how to contact the physician who performed the procedure and when to seek medical care.YANIRA Holden documented in this encounterOur [facility] Of [facility]09-16-2024 History and physical note * Elinor Cunha MD - 12/08/2023 10:45 AM EDT HISTORY AND PHYSICAL Barrett Lopez : 1975 REFERRING PHYSICIAN: No referring provider defined for this encounter. CHIEF COMPLAINT: Patient presents with: GERD I saw Barrett in June 2023: HPI: The patient is a 48 year old male with a complaint of intermittent rectal bleeding with pain and right upper and lower quadrant pain x3 weeks. Barrett states that after wiping he will notice blood on the toilet paper that takes multiple attempts to dry but no blood speckled in the stool. S/O states their is blood also in the toilet bowl. This happens intermittently and is not triggered by constipation which is a struggle. Barrett states he will go 2-3 days without a BM but does not use any OTC relief. Pt refers occasional reflux that is relieved by drinking strawberry milk. PLAN: Discussed anal fissure care with patient as provided in the AVS. Also instructed patient to add miralax to help with constipation and ease BM pain with fissure. Instructed to apply OTC dibucaine ointment to the area for pain relief. Pt also provided a script for prilosec 40mg daily to help with RUQ pain. Interim HPI: Barrett is a 48 year old male who presents again for continued symptoms as described above. He is c/o of incisional bulge that cause pain from cholecystectomy site and RLQ pain. Barrett notes abdominal pain. The pain occurs in the following locations: RUQ and RLQ . 12/31. Constant sharp/stabbing pain for the last 6 months. Refers putting a 2L pop bottle of cold water helps the pain. Epigastric pain is the worst when laying down at night. Barrett notes diarrhea x 1 week- not watery Barrett denies constipation. Barrett denies a change in bowel habits. Barrett denies melena. Barrett notes bright red blood per rectum on toilet paper. Barrett denies hemorrhoids. Barrett notes heartburn. +prilosec 40mg QHS with no relief +vomiting after drinking coffee on empty stomach. Barrett denies dysphagia. Barrett denies a history of ulcers/ peptic ulcer disease. +cholecystectomy Notes family history of colon issues. Maternal grandfather- colon cancer Barrett has undergone prior endoscopy. Last upper and lower was 11/27/[address] Andersen in [facility]. Sedation received: Midazolam 5 mg IV, Fentanyl 100 micrograms IV, Diphenhydramine 50 mg IV EGD Impression - Normal examined jejunum. - Duodenitis. Biopsied. - Gastritis. Biopsied. - Mildly severe reflux esophagitis with no bleeding. Biopsied. COLONOSCOPY Impression: - The examined portion of the ileum was normal. - The entire examined colon is normal on direct and retroflexion views. - Diverticulosis in the sigmoid colon. - No specimens collected Pathology FINAL DIAGNOSIS A. Duodenum, biopsy: - Duodenal mucosa with preserved villous architecture and a mild increase in intraepithelial lymphocytes; see comment. B. Stomach, antrum, biopsy: - Gastric antral mucosa with reactive gastropathy. - No evidence of Helicobacter pylori organisms on H&E stain. C. Esophagus, distal, biopsy: - Squamocolumnar junctional mucosa with mild chronic inflammation. - Negative for granulomas and dysplasia. Diagnosis Comment A: The finding of patchy intraepithelial lymphocytosis is not specific, and may be present in many conditions such as infection, drug reaction, celiac disease, non-gluten food sensitivity, autoimmunediseases, bacterial overgrowth, morbid obesity, immunodeficiency disorders, inflammatory bowel disease, and change secondary to local inflammation. Clinical correlation is necessary for a definitive diagnosis. CURRENT MEDICATIONS Current Outpatient Medications Medication Sig famotidine (PEPCID) 40 mg tablet Take 1 tablet by mouth at bedtime as needed. peg 3350-Electrolytes (GOLYTELY) 236-22.74-6.74 -5.86 gram suspension Take 4,000 mL by mouth one time only for 1 dose. Refer to printed prep instructions from your provider. omeprazole (PRILOSEC) 40 mg capsule Take 1 capsule by mouth once daily. furosemide (LASIX) 20 mg tablet Take 1 tablet by mouth once daily. No current facility-administered medications for this visit. 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 Unspecified adjustment reaction 10/23/2011 PAST SURGICAL HISTORY PAST SURGICAL HISTORY Procedure Laterality Date ABDOMINAL SURGERY HX APPENDECTOMY 12/2004 [facility] APPENDECTOMY HX COLECTOMY PART W/ANASTOMOSIS 11/07/2016 Open sigmoid colectomy with mobilization of splenic flexure for limited diverticulitis COLON SURGERY HX COLONOSCOPY 11/26/2022 repeat in 10 years COLONOSCOPY FLX DX W/COLLJ SPEC WHEN PFRMD 04/03/2021 repeat in 1 year-due to poor bowel prep EGD 11/26/2022 ESOPHAGOGASTRODUODENOSCOPY TRANSORAL DIAGNOSTIC 04/03/2018 EGD ESOPHAGOGASTRODUODENOSCOPY TRANSORAL DIAGNOSTIC 01/16/2021 ESOPHAGOGASTRODUODENOSCOPY TRANSORAL DIAGNOSTIC 04/03/2021 FOOT SURGERY HX Bilateral 1991 preair of broken feet FRACTURE SURGERY HAND SURGERY HX Left 2006 repair of fracture KNEE SURGERY HX Right 2016 LAPS SURG CHOLECYSTECTOMY W/CHOLANGIOGRAPHY 12/08/2017 PAST SURGICAL HISTORY OF 04/2007 fracture/Deviated septum TONSILLECTOMY & ADENOIDECTOMY AGE 14/> 2011 T/A (over age 14 years) TONSILLECTOMY HX FAMILY HISTORY FAMILY HISTORY Problem Relation Age of Onset Diabetes Mother Hypertension Mother Cancer Mother lung and brain Hearing Loss Maternal Grandmother Diabetes Maternal Grandmother Heart Maternal Grandfather AR other (unknown) Father brain aneurysm? SOCIAL HISTORY Social History Tobacco Use Smoking status: Never Smokeless tobacco: Never Vaping Use Vaping status: Never Used Substance Use Topics Alcohol use: No Drug use: No REVIEW OF SYMPTOMS: SEE HPI PHYSICAL EXAMINATION: General: The patient is 48 year old, male well nourished, well hydrated in no acute distress. The patient is oriented to time, place, and person. VITALS: There were no vitals taken for this visit. There is no height or weight on file to calculate BMI. HEENT: Normal cephalic, ataumatic, pupils are equally round, sclera are anicteric, mucous membranesare moist, oropharynx is clear. Neck has no masses, asymmetry or lymphadenopathy. Respiratory: Clear to auscultation and percussion. Normal respiratory excursion and pattern. Cardiac: Examination is regular rate and rhythm. Normal S1/S2 Abdominal exam: Soft, nontender, with no palpable masses. No hepatosplenomegaly. No palpable hernias. Extremities: no clubbing, cyanosis or edema. No adenopathy. LABORATORY VALUES: As Noted RADIOLOGIC STUDIES: As Noted Assessment IMPRESSION: RLQ, RUQ pain, BRBPR, GERD, epigastric pain PLAN: I have reviewed my findings with the surgeon. Will plan for upper and lower endoscopy. We discussed the risks and benefits of the planned endoscopy. I have informed the patient that complications can occur including failure to complete the endoscopy and perforation. Barrett had the opportunityto ask questions concerning the planned endoscopy. My staff has also explained the procedure to thepatient in understandable terms and has given the patient printed material concerning the procedure. Barrett freely consents to surgery. -Instructed Barrett to switch prilosec to AM 30 minutes before eating or drinking and can add [id number] QHS. I plan to use Golytely bowel preparation I have explained to the patient the difference between IV conscious sedation and MAC anesthesia - and I have offered either, according to the patient's wishes. I have explained that with IV conscioussedation there is no anesthesia provider available and therefore there is a limitation of the amount of IV medications that can be given and that the patient may wake up in the middle of the procedure and/or experience pain/discomfort during the procedure. Further discussion was done and the patient was given the opportunity to ask questions and all questions were answered. Barrett chooses IV conscious sedation. Per Dr. Nathaly bai to keep in [facility]. Barrett was counseled that if there are changes in his/her medical condition, to let the office knowif surgery should proceed. If there are changes in patient's medical condition from time of this encounter to the day of the procedure that preclude anesthesia, patient may have procedure cancelled for patient's safety. Diagnoses: (R10.31, G89.29) Chronic RLQ pain (primary encounter diagnosis) (K62.5) BRBPR (bright red blood per rectum) (R10.11, G89.29) Chronic RUQ pain (R10.13) Epigastric pain (K21.9) Gastroesophageal reflux disease without esophagitis Portions of this documentation were copied and pasted from previous office visit notes in order to provide a cohesive continuity of the history. The note has been reviewed and edited and updated as necessary. Asia Salgado APRN.TELEVISION CABINET FINISHER UPDATED HISTORY AND PHYSICAL EXAMINATION SERVICE DATE: 12/08/2023 SERVICE TIME: 9:14 AM SENSITIVE EXAMINATION CONSENT: The sensitive examination was discussed with the Patient or Patient's Authorized Hr Director. Asapplicable, any other physician, advance practice provider, medical student, or other health professional student that will be observing or involved in the sensitive examination for educational or training purposes was discussed with the Patient or Authorized Hr Director. The Patient or Authorized Hr Director has agreed to proceed with the sensitive examination. (Sensitive examination includes inspection and/or palpation of the breasts, pelvis, prostate and anorectal regions) PHYSICAL EXAM MUST BE COMPLETED ON ADMISSION The History and Physical (completed in the past 30 days) has been reviewed and the patient has beenexamined. The contents accurately reflect the patient's condition with the following additions or revisions since the H&P was completed. Examination indicates no changes. This H&P can be found in the attached. SIGNATURE: Elinor Cunha III, MD PATIENT NAME: Barrett Lopez DATE: December 08, 2023 TIME: 9:13 AM [facility]09-16-2024 History and physical note* Elinor Cunha MD - 12/08/2023 10:45 AM EDT HISTORY AND PHYSICAL Barrett Lopez : 1975 REFERRING PHYSICIAN: No referring provider defined for this encounter. CHIEF COMPLAINT: Patient presents with: GERD I saw Barrett in June 2023: HPI: The patient is a 48 year old male with a complaint of intermittent rectal bleeding with pain and right upper and lower quadrant pain x3 weeks. Barrett states that after wiping he will notice blood on the toilet paper that takes multiple attempts to dry but no blood speckled in the stool. S/O states their is blood also in the toilet bowl. This happens intermittently and is not triggered by constipation which is a struggle. Barrett states he will go 2-3 days without a BM but does not use any OTC relief. Pt refers occasional reflux that is relieved by drinking strawberry milk. PLAN: Discussed anal fissure care with patient as provided in the AVS. Also instructed patient to add miralax to help with constipation and ease BM pain with fissure. Instructed to apply OTC dibucaine ointment to the area for pain relief. Pt also provided a script for prilosec 40mg daily to help with RUQ pain. Interim HPI: Barrett is a 48 year old male who presents again for continued symptoms as described above. He is c/o of incisional bulge that cause pain from cholecystectomy site and RLQ pain. Barrett notes abdominal pain. The pain occurs in the following locations: RUQ and RLQ . 12/31. Constant sharp/stabbing pain for the last 6 months. Refers putting a 2L pop bottle of cold water helps the pain. Epigastric pain is the worst when laying down at night. Barrett notes diarrhea x 1 week- not watery Barrett denies constipation. Barrett denies a change in bowel habits. Barrett denies melena. Barrett notes bright red blood per rectum on toilet paper. Barrett denies hemorrhoids. Barrett notes heartburn. +prilosec 40mg QHS with no relief +vomiting after drinking coffee on empty stomach. Barrett denies dysphagia. Barrett denies a history of ulcers/ peptic ulcer disease. +cholecystectomy Notes family history of colon issues. Maternal grandfather- colon cancer Barrett has undergone prior endoscopy. Last upper and lower was 11/27/[address] Andersen in [facility]. Sedation received: Midazolam 5 mg IV, Fentanyl 100 micrograms IV, Diphenhydramine 50 mg IV EGD Impression - Normal examined jejunum. - Duodenitis. Biopsied. - Gastritis. Biopsied. - Mildly severe reflux esophagitis with no bleeding. Biopsied. COLONOSCOPY Impression: - The examined portion of the ileum was normal. - The entire examined colon is normal on direct and retroflexion views. - Diverticulosis in the sigmoid colon. - No specimens collected Pathology FINAL DIAGNOSIS A. Duodenum, biopsy: - Duodenal mucosa with preserved villous architecture and a mild increase in intraepithelial lymphocytes; see comment. B. Stomach, antrum, biopsy: - Gastric antral mucosa with reactive gastropathy. - No evidence of Helicobacter pylori organisms on H&E stain. C. Esophagus, distal, biopsy: - Squamocolumnar junctional mucosa with mild chronic inflammation. - Negative for granulomas and dysplasia. Diagnosis Comment A: The finding of patchy intraepithelial lymphocytosis is not specific, and may be present in many conditions such as infection, drug reaction, celiac disease, non-gluten food sensitivity, autoimmunediseases, bacterial overgrowth, morbid obesity, immunodeficiency disorders, inflammatory bowel disease, and change secondary to local inflammation. Clinical correlation is necessary for a definitive diagnosis. CURRENT MEDICATIONS Current Outpatient Medications Medication Sig famotidine (PEPCID) 40 mg tablet Take 1 tablet by mouth at bedtime as needed. peg 3350-Electrolytes (GOLYTELY) 236-22.74-6.74 -5.86 gram suspension Take 4,000 mL by mouth one time only for 1 dose. Refer to printed prep instructions from your provider. omeprazole (PRILOSEC) 40 mg capsule Take 1 capsule by mouth once daily. furosemide (LASIX) 20 mg tablet Take 1 tablet by mouth once daily. No current facility-administered medications for this visit. 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 Unspecified adjustment reaction 10/23/2011 PAST SURGICAL HISTORY PAST SURGICAL HISTORY Procedure Laterality Date ABDOMINAL SURGERY HX APPENDECTOMY 12/2004 [facility] APPENDECTOMY HX COLECTOMY PART W/ANASTOMOSIS 11/07/2016 Open sigmoid colectomy with mobilization of splenic flexure for limited diverticulitis COLON SURGERY HX COLONOSCOPY 11/26/2022 repeat in 10 years COLONOSCOPY FLX DX W/COLLJ SPEC WHEN PFRMD 04/03/2021 repeat in 1 year-due to poor bowel prep EGD 11/26/2022 ESOPHAGOGASTRODUODENOSCOPY TRANSORAL DIAGNOSTIC 04/03/2018 EGD ESOPHAGOGASTRODUODENOSCOPY TRANSORAL DIAGNOSTIC 01/16/2021 ESOPHAGOGASTRODUODENOSCOPY TRANSORAL DIAGNOSTIC 04/03/2021 FOOT SURGERY HX Bilateral 1991 preair of broken feet FRACTURE SURGERY HAND SURGERY HX Left 2006 repair of fracture KNEE SURGERY HX Right 2016 LAPS SURG CHOLECYSTECTOMY W/CHOLANGIOGRAPHY 12/08/2017 PAST SURGICAL HISTORY OF 04/2007 fracture/Deviated septum TONSILLECTOMY & ADENOIDECTOMY AGE 14/> 2011 T/A (over age 14 years) TONSILLECTOMY HX FAMILY HISTORY FAMILY HISTORY Problem Relation Age of Onset Diabetes Mother Hypertension Mother Cancer Mother lung and brain Hearing Loss Maternal Grandmother Diabetes Maternal Grandmother Heart Maternal Grandfather AR other (unknown) Father brain aneurysm? SOCIAL HISTORY Social History Tobacco Use Smoking status: Never Smokeless tobacco: Never Vaping Use Vaping status: Never Used Substance Use Topics Alcohol use: No Drug use: No REVIEW OF SYMPTOMS: SEE HPI PHYSICAL EXAMINATION: General: The patient is 48 year old, male well nourished, well hydrated in no acute distress. The patient is oriented to time, place, and person. VITALS: There were no vitals taken for this visit. There is no height or weight on file to calculate BMI. HEENT: Normal cephalic, ataumatic, pupils are equally round, sclera are anicteric, mucous membranesare moist, oropharynx is clear. Neck has no masses, asymmetry or lymphadenopathy. Respiratory: Clear to auscultation and percussion. Normal respiratory excursion and pattern. Cardiac: Examination is regular rate and rhythm. Normal S1/S2 Abdominal exam: Soft, nontender, with no palpable masses. No hepatosplenomegaly. No palpable hernias. Extremities: no clubbing, cyanosis or edema. No adenopathy. LABORATORY VALUES: As Noted RADIOLOGIC STUDIES: As Noted Assessment IMPRESSION: RLQ, RUQ pain, BRBPR, GERD, epigastric pain PLAN: I have reviewed my findings with the surgeon. Will plan for upper and lower endoscopy. We discussed the risks and benefits of the planned endoscopy. I have informed the patient that complications can occur including failure to complete the endoscopy and perforation. Barrett had the opportunityto ask questions concerning the planned endoscopy. My staff has also explained the procedure to thepatient in understandable terms and has given the patient printed material concerning the procedure. Barrett freely consents to surgery. -Instructed Barrett to switch prilosec to AM 30 minutes before eating or drinking and can add [id number] QHS. I plan to use Golytely bowel preparation I have explained to the patient the difference between IV conscious sedation and MAC anesthesia - and I have offered either, according to the patient's wishes. I have explained that with IV conscioussedation there is no anesthesia provider available and therefore there is a limitation of the amount of IV medications that can be given and that the patient may wake up in the middle of the procedure and/or experience pain/discomfort during the procedure. Further discussion was done and the patient was given the opportunity to ask questions and all questions were answered. Barrett chooses IV conscious sedation. Per Dr. Nathaly bai to keep in [facility]. Barrett was counseled that if there are changes in his/her medical condition, to let the office knowif surgery should proceed. If there are changes in patient's medical condition from time of this encounter to the day of the procedure that preclude anesthesia, patient may have procedure cancelled for patient's safety. Diagnoses: (R10.31, G89.29) Chronic RLQ pain (primary encounter diagnosis) (K62.5) BRBPR (bright red blood per rectum) (R10.11, G89.29) Chronic RUQ pain (R10.13) Epigastric pain (K21.9) Gastroesophageal reflux disease without esophagitis Portions of this documentation were copied and pasted from previous office visit notes in order to provide a cohesive continuity of the history. The note has been reviewed and edited and updated as necessary. Asia Salgado APRN.TELEVISION CABINET FINISHER UPDATED HISTORY AND PHYSICAL EXAMINATION SERVICE DATE: 12/08/2023 SERVICE TIME: 9:14 AM SENSITIVE EXAMINATION CONSENT: The sensitive examination was discussed with the Patient or Patient's Authorized Hr Director. Asapplicable, any other physician, advance practice provider, medical student, or other health professional student that will be observing or involved in the sensitive examination for educational or training purposes was discussed with the Patient or Authorized Hr Director. The Patient or Authorized Hr Director has agreed to proceed with the sensitive examination. (Sensitive examination includes inspection and/or palpation of the breasts, pelvis, prostate and anorectal regions) PHYSICAL EXAM MUST BE COMPLETED ON ADMISSION The History and Physical (completed in the past 30 days) has been reviewed and the patient has beenexamined. The contents accurately reflect the patient's condition with the following additions or revisions since the H&P was completed. Examination indicates no changes. This H&P can be found in the attached. SIGNATURE: Elinor Cunha III, MD PATIENT NAME: Barrett Lopez DATE: December 08, 2023 TIME: 9:13 AM [facility] in [facility] encounterOur [facility] Nurse Note* Pao Hogue RN - 12/05/2023 10:51 AM EDT This nurse reviewed and provided written instructions regarding colonscopy prep. Patient verbalizedunderstanding and was provided office number phone for questions. [facility]09-13-2024 Nurse Note* Pao Hogue RN - 12/05/2023 10:51 AM EDT This nurse reviewed and provided written instructions regarding colonscopy prep. Patient verbalizedunderstanding and was provided office number phone for questions. documented in this encounterOur [facility]09-[facility]-2024 NoteHNO ID: [id number] Author: ASIA SALGADO APRN.CNP Service: ? Author Type: Nurse Practitioner Type: Progress Notes Filed: 12/05/2023 11:54 Note Text: HISTORY AND PHYSICAL Barrett Lopez : 1975 REFERRING PHYSICIAN: No referring provider defined for this encounter. CHIEF COMPLAINT: Patient presents with: GERD I saw Barrett in June 2023: HPI: The patient is a 48 year old male with a complaint of intermittent rectal bleeding with pain and right upper and lower quadrant pain x3 weeks. Barrett states that after wiping he will notice blood on the toilet paper that takes multiple attempts to dry but no blood speckled in the stool. S/O states their is blood also in the toilet bowl. This happens intermittently and is not triggered by constipation which is a struggle. Barrett states he will go 2-3 days without a BM but does not use any OTC relief. Pt refers occasional reflux that is relieved by drinking strawberry milk. PLAN: Discussed anal fissure care with patient as provided in the AVS. Also instructed patient to add miralax to help with constipation and ease BM pain with fissure. Instructed to apply OTC dibucaine ointment to the area for pain relief. Pt also provided a script for prilosec 40mg daily to help with RUQ pain. Interim HPI: Barrett is a 48 year old male who presents again for continued symptoms as described above. He is c/o of incisional bulge that cause pain from cholecystectomy site and RLQ pain. Barrett notes abdominal pain. The pain occurs in the following locations: RUQ and RLQ . 10/10. Constant sharp/stabbing pain for the last 6 months. Refers putting a 2L pop bottle of cold water helps the pain. Epigastric pain is the worst when laying down at night. Barrett notes diarrhea x 1 week- not watery Barrett denies constipation. Barrett denies a change in bowel habits. Barrett denies melena. Barrett notes bright red blood per rectum on toilet paper. Barrett denies hemorrhoids. Barrett notes heartburn. +prilosec 40mg QHS with no relief +vomiting after drinking coffee on empty stomach. Barrett denies dysphagia. Barrett denies a history of ulcers/ peptic ulcer disease. +cholecystectomy Notes family history of colon issues. Maternal grandfather- colon cancer Barrett has undergone prior endoscopy. Last upper and lower was 11/27/[address] Andersen in [facility]. Sedation received: Midazolam 5 mg IV, Fentanyl 100 micrograms IV, Diphenhydramine 50 mg IV EGD Impression - Normal examined jejunum. - Duodenitis. Biopsied. - Gastritis. Biopsied. - Mildly severe reflux esophagitis with no bleeding. Biopsied. COLONOSCOPY Impression: - The examined portion of the ileum was normal. - The entire examined colon is normal on direct and retroflexion views. - Diverticulosis in the sigmoid colon. - No specimens collected Pathology FINAL DIAGNOSIS A. Duodenum, biopsy: - Duodenal mucosa with preserved villous architecture and a mild increase in intraepithelial lymphocytes; see comment. B. Stomach, antrum, biopsy: - Gastric antral mucosa with reactive gastropathy. - No evidence of Helicobacter pylori organisms on ESTEVAN stain. C. Esophagus, distal, biopsy: - Squamocolumnar junctional mucosa with mild chronic inflammation. - Negative for granulomas and dysplasia. Diagnosis Comment A: The finding of patchy intraepithelial lymphocytosis is not specific, and may be present in many conditions such as infection, drug reaction, celiac disease, non-gluten food sensitivity, autoimmune diseases, bacterial overgrowth, morbid obesity, immunodeficiency disorders, inflammatory bowel disease, and change secondary to local inflammation. Clinical correlation is necessary for a definitive diagnosis. Current Outpatient Medications Medication Sig famotidine (PEPCID) 40 mg tablet Take 1 tablet by mouth at bedtime as needed. peg 3350-Electrolytes (GOLYTELY) 236-22.74-6.74 -5.86 gram suspension Take 4,000 mL by mouth one time only for 1 dose. Refer to printed prep instructions from your provider. omeprazole (PRILOSEC) 40 mg capsule Take 1 capsule by mouth once daily. furosemide (LASIX) 20 mg tablet Take 1 tablet by mouth once daily. No current facility-administered medications for this visit. 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 Unspecified adjustment reaction 10/23/2011 PAST SURGICAL HISTORY Procedure Laterality Date ABDOMINAL SURGERY HX APPENDECTOMY 12/2004 [facility] APPENDECTOMY HX COLECTOMY PART W/ANASTOMOSIS 11/07/2016 Open sigmoid colectomy with mobilization of splenic flexure for limited diverticulitis COLON SURGERY HX COLONOSCOPY (more content not included)...[facility]09-13-2024 History of Present illness Narrative* Asia Salgado APRN.TELEVISION CABINET FINISHER - 12/05/2023 10:10 AM EDT HISTORY AND PHYSICAL Barrett Lopez : 1975 REFERRING PHYSICIAN: No referring provider defined for this encounter. CHIEF COMPLAINT: Patient presents with: GERD I saw Barrett in June 2023: HPI: The patient is a 48 year old male with a complaint of intermittent rectal bleeding with pain and right upper and lower quadrant pain x3 weeks. Barrett states that after wiping he will notice blood on the toilet paper that takes multiple attempts to dry but no blood speckled in the stool. S/O states their is blood also in the toilet bowl. This happens intermittently and is not triggered by constipation which is a struggle. Barrett states he will go 2-3 days without a BM but does not use any OTC relief. Pt refers occasional reflux that is relieved by drinking strawberry milk. PLAN: Discussed anal fissure care with patient as provided in the AVS. Also instructed patient to add miralax to help with constipation and ease BM pain with fissure. Instructed to apply OTC dibucaine ointment to the area for pain relief. Pt also provided a script for prilosec 40mg daily to help with RUQ pain. Interim HPI: Barrett is a 48 year old male who presents again for continued symptoms as described above. He is c/o of incisional bulge that cause pain from cholecystectomy site and RLQ pain. Barrett notes abdominal pain. The pain occurs in the following locations: RUQ and RLQ . 12/31. Constant sharp/stabbing pain for the last 6 months. Refers putting a 2L pop bottle of cold water helps the pain. Epigastric pain is the worst when laying down at night. Barrett notes diarrhea x 1 week- not watery Barrett denies constipation. Barrett denies a change in bowel habits. Barrett denies melena. Barrett notes bright red blood per rectum on toilet paper. Barrett denies hemorrhoids. Barrett notes heartburn. +prilosec 40mg QHS with no relief +vomiting after drinking coffee on empty stomach. Barrett denies dysphagia. Barrett denies a history of ulcers/ peptic ulcer disease. +cholecystectomy Notes family history of colon issues. Maternal grandfather- colon cancer Barrett has undergone prior endoscopy. Last upper and lower was 11/27/[address] Andersen in [facility]. Sedation received: Midazolam 5 mg IV, Fentanyl 100 micrograms IV, Diphenhydramine 50 mg IV EGD Impression - Normal examined jejunum. - Duodenitis. Biopsied. - Gastritis. Biopsied. - Mildly severe reflux esophagitis with no bleeding. Biopsied. COLONOSCOPY Impression: - The examined portion of the ileum was normal. - The entire examined colon is normal on direct and retroflexion views. - Diverticulosis in the sigmoid colon. - No specimens collected Pathology FINAL DIAGNOSIS A. Duodenum, biopsy: - Duodenal mucosa with preserved villous architecture and a mild increase in intraepithelial lymphocytes; see comment. B. Stomach, antrum, biopsy: - Gastric antral mucosa with reactive gastropathy. - No evidence of Helicobacter pylori organisms on H&E stain. C. Esophagus, distal, biopsy: - Squamocolumnar junctional mucosa with mild chronic inflammation. - Negative for granulomas and dysplasia. Diagnosis Comment A: The finding of patchy intraepithelial lymphocytosis is not specific, and may be present in many conditions such as infection, drug reaction, celiac disease, non-gluten food sensitivity, autoimmunediseases, bacterial overgrowth, morbid obesity, immunodeficiency disorders, inflammatory bowel disease, and change secondary to local inflammation. Clinical correlation is necessary for a definitive diagnosis. Current Outpatient Medications Medication Sig famotidine (PEPCID) 40 mg tablet Take 1 tablet by mouth at bedtime as needed. peg 3350-Electrolytes (GOLYTELY) 236-22.74-6.74 -5.86 gram suspension Take 4,000 mL by mouth one time only for 1 dose. Refer to printed prep instructions from your provider. omeprazole (PRILOSEC) 40 mg capsule Take 1 capsule by mouth once daily. furosemide (LASIX) 20 mg tablet Take 1 tablet by mouth once daily. No current facility-administered medications for this visit. 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 Unspecified adjustment reaction 10/23/2011 PAST SURGICAL HISTORY Procedure Laterality Date ABDOMINAL SURGERY HX APPENDECTOMY 12/2004 [facility] APPENDECTOMY HX COLECTOMY PART W/ANASTOMOSIS 11/07/2016 Open sigmoid colectomy with mobilization of splenic flexure for limited diverticulitis COLON SURGERY HX COLONOSCOPY 11/26/2022 repeat in 10 years COLONOSCOPY FLX DX W/COLLJ SPEC WHEN PFRMD 04/03/2021 repeat in 1 year-due to poor bowel prep EGD 11/26/2022 ESOPHAGOGASTRODUODENOSCOPY TRANSORAL DIAGNOSTIC 04/03/2018 EGD ESOPHAGOGASTRODUODENOSCOPY TRANSORAL DIAGNOSTIC 01/16/2021 ESOPHAGOGASTRODUODENOSCOPY TRANSORAL DIAGNOSTIC 04/03/2021 FOOT SURGERY HX Bilateral 1991 preair of broken feet FRACTURE SURGERY HAND SURGERY HX Left 2006 repair of fracture KNEE SURGERY HX Right 2016 LAPS SURG CHOLECYSTECTOMY W/CHOLANGIOGRAPHY 12/08/2017 PAST SURGICAL HISTORY OF 04/2007 fracture/Deviated septum TONSILLECTOMY & ADENOIDECTOMY AGE 14/> 2011 T/A (over age 14 years) TONSILLECTOMY HX FAMILY HISTORY Problem Relation Age of Onset Diabetes Mother Hypertension Mother Cancer Mother lung and brain Hearing Loss Maternal Grandmother Diabetes Maternal Grandmother Heart Maternal Grandfather AR other (unknown) Father brain aneurysm? Social History Tobacco Use Smoking status: Never Smokeless tobacco: Never Vaping Use Vaping status: Never Used Substance Use Topics Alcohol use: No Drug use: No REVIEW OF SYMPTOMS: SEE HPI PHYSICAL EXAMINATION: General: The patient is 48 year old, male well nourished, well hydrated in no acute distress. The patient is oriented to time, place, and person. VITALS: There were no vitals taken for this visit. There is no height or weight on file to calculate BMI. HEENT: Normal cephalic, ataumatic, pupils are equally round, sclera are anicteric, mucous membranesare moist, oropharynx is clear. Neck has no masses, asymmetry or lymphadenopathy. Respiratory: Clear to auscultation and percussion. Normal respiratory excursion and pattern. Cardiac: Examination is regular rate and rhythm. Normal S1/S2 Abdominal exam: Soft, nontender, with no palpable masses. No hepatosplenomegaly. No palpable hernias. Extremities: no clubbing, cyanosis or edema. No adenopathy. LABORATORY VALUES: As Noted RADIOLOGIC STUDIES: As Noted Assessment IMPRESSION: RLQ, RUQ pain, BRBPR, GERD, epigastric pain PLAN: I have reviewed my findings with the surgeon. Will plan for upper and lower endoscopy. We discussed the risks and benefits of the planned endoscopy. I have informed the patient that complications can occur including failure to complete the endoscopy and perforation. Barrett had the opportunityto ask questions concerning the planned endoscopy. My staff has also explained the procedure to thepatient in understandable terms and has given the patient printed material concerning the procedure. Barrett freely consents to surgery. -Instructed Barrett to switch prilosec to AM 30 minutes before eating or drinking and can add [id number] QHS. I plan to use Golytely bowel preparation I have explained to the patient the difference between IV conscious sedation and MAC anesthesia - and I have offered either, according to the patient's wishes. I have explained that with IV conscioussedation there is no anesthesia provider available and therefore there is a limitation of the amount of IV medications that can be given and that the patient may wake up in the middle of the procedure and/or experience pain/discomfort during the procedure. Further discussion was done and the patient was given the opportunity to ask questions and all questions were answered. Barrett chooses IV conscious sedation. Per Dr. Nathaly bai to keep in ASC. Barrett was counseled that if there are changes in his/her medical condition, to let the office knowif surgery should proceed. If there are changes in patient's medical condition from time of this encounter to the day of the procedure that preclude anesthesia, patient may have procedure cancelled for patient's safety. Diagnoses: (R10.31, G89.29) Chronic RLQ pain (primary encounter diagnosis) (K62.5) BRBPR (bright red blood per rectum) (R10.11, G89.29) Chronic RUQ pain (R10.13) Epigastric pain (K21.9) Gastroesophageal reflux disease without esophagitis Portions of this documentation were copied and pasted from previous office visit notes in order to provide a cohesive continuity of the history. The note has been reviewed and edited and updated as necessary. Asia Salgado APRN.[employer]LEVISION [employer]ISHER [facility] Discharge instructions Patient Education 11/30/2023 23:43:56 Back Pain (Acute or Chronic) Back Pain (Acute or Chronic) Back pain is one of the most common problems. The good news is that most people feel better in 1 to2 weeks, and most of the rest in 1 to 2 months. Most people can remain active. People who have pain describe it differently not everyone is the same. The pain can be sharp, stabbing, shooting, aching, cramping or burning. Movement, standing, bending, lifting, sitting, or walking may worsen pain. It can be localized to one spot or area, or it can be more generalized. It can spread or radiate upwards, to the front, or go down your arms or legs (sciatica). It can cause muscle spasm. Most of the time, mechanical problems with the muscles or spine cause the pain. Mechanical problemsare usually caused by an injury to the muscles or ligaments. While illness can cause back pain, it is usually not caused by a serious illness. Mechanical problems include: Physical activity such as sports, exercise, work, or normal activity Overexertion, lifting, pushing, pulling incorrectly or too aggressively Sudden twisting, bending, or stretching from an accident, or accidental movement Poor posture Stretching or moving wrong, without noticing pain at the time Poor coordination, lack of regular exercise (check with your doctor about this) Spinal disc disease or arthritis Stress Pain can also be related to , or illness like appendicitis, bladder or kidney infections, pelvic infections, and many other things. Acute back pain usually gets better in 1 to 2 weeks. Back pain related to disk disease, arthritis in the spinal joints or spinal stenosis (narrowing of the spinal canal) can become chronic and last for months or years. Unless you had a physical injury (for example, a car accident or fall) X-rays are usually not needed for the initial evaluation of back pain. If pain continues and does not respond to medical treatment, X-rays and other tests may be needed. Home care Try these home care recommendations: When in bed, try to find a position of comfort. A firm mattress is best. Try lying flat on your back with pillows under your knees. You can also try lying on your side with your knees bent up towardsyour chest and a pillow between your knees. At first, do not try to stretch out the sore spots. If there is a strain, it is not like the good soreness you get after exercising without an injury. In this case, stretching may make it worse. Don't sit for long periods, as in a long car ride or during other travel. This puts more stress on the lower back than standing or walking. During the first 24 to 72 hours after an acute injury or flare up of chronic back pain, apply an ice pack to the painful area for 20 minutes and then remove it for 20 minutes. Do this over a period of 60 to 90 minutes or several times a day. This will reduce swelling and pain. Wrap the ice pack in a thin towel or plastic to protect your skin. You can start with ice, then switch to heat. Heat (hot shower, hot bath, or heating pad) reduces pain and works well for muscle spasms. Heat can be applied to the painful area for 20 minutes then remove it for 20 minutes. Do this over a period of 60 to 90 minutes or several times a day. Do not sleep on a heating pad. It can lead to skin bridges or tissue damage. You can alternate ice and heat therapy. Talk with your doctor about the best treatment for your back pain. Therapeutic massage can help relax the back muscles without stretching them. Be aware of safe lifting methods and do not lift anything without stretching first. Medicines Talk to your doctor before using medicine, especially if you have other medical problems or are taking other medicines. You may use [id number] medicine as directed on the bottle to control pain, unless another pain medicine was prescribed. If you have chronic conditions like diabetes, liver or kidney disease, stomach ulcers, or gastrointestinal bleeding, or are taking blood thinners, talk to your doctor beforetaking any medicine. Be careful if you are given a prescription medicines, narcotics, or medicine for muscle spasms. They can cause drowsiness, affect your coordination, reflexes, and judgement. Do not drive or operate heavy machinery. Follow-up care Follow up with your healthcare provider, or as advised. A radiologist will review any X-rays that were taken. Your provide will notify you of any new findings that may affect your care. Call 911 Call 911 if any of the following occur: Trouble breathing Confusion Very drowsy or trouble awakening Fainting or loss of consciousness Rapid or very slow heart rate Loss of bowel or bladder control When to seek medical advice Call your healthcare provider right away if any of these occur: Pain becomes worse or spreads to your legs Weakness or numbness in one or both legs Numbness in the groin or genital area [phone] [employer]. [address] [place] [address]. All rights reserved. This information is not intended as a substitute for professional medical care. Always follow yourhealthcare professional's instructions. Follow Up Care 11/30/2023 23:26:40 With:EILEEN COONEY Address: [address] [place] [phone] When:2-4 days [facility] Emergency department Discharge summary Discharge Instructions Thank you for allowing [facility] to assist you with your healthcare needs. The following is importantdischarge information regarding your hospital visit. Diagnosis from Today's Visit Low back pain What to Do Next Instructions from Your Care Team Discharge Return to Work, School, or Sports (Return to Work, School, or Sports) - Ordered -- May return to: work, please excuse 12/01/23, 11/30/23 23:44:00 EDT Post Acute Orders No qualifying data available. You Need to Schedule the Following Appointments Follow Up with EILEEN COONEY When:Within 2-4 days Where:[address] [place] [phone] Allergies codeine(Severe) Swelling of throat, Hives Latex Vicodin Hives lidocaine naproxen Medications Please ask your primary doctor or pharmacist before taking any other medication not listed, including over the counter drugs, herbal medications, vitamins and or supplements as they may interact withyour home medications. What How Much When Instructions Last Dose New cyclobenzaprine (cyclobenzaprine 10 mg oral tablet) 1 tab(s) by mouth Three (3) times a day Duration: 7 Days Printed Prescription Unchanged acetaminophen (Tylenol Extra Strength 500 mg oral tablet) 2 tab(s) by mouth Every 4 hours as needed for as needed for pain Unchanged aspirin (aspirin 81 mg oral tablet, chewable) 1 tab(s) by mouth Once a day with a meal Duration: 30 Days Unchanged baclofen (baclofen 20 mg oral tablet) 1 tab(s) by mouth Three (3) times a day Duration: 5 Days Unchanged sertraline (Zoloft 25 mg oral tablet) 1 tab(s) by mouth Once a day Please take this list to your next doctor s visit. Bring all medications you take, including over the counter medications, herbals and other supplements with you to your doctor s visit. Patients and families are reminded to discard old lists and to update any records with all medication providers or retail pharmacies. Education Materials Back Pain (Acute or Chronic) Back pain is one of the most common problems. The good news is that most people feel better in 1 to2 weeks, and most of the rest in 1 to 2 months. Most people can remain active. People who have pain describe it differently not everyone is the same. The pain can be sharp, stabbing, shooting, aching, cramping or burning. Movement, standing, bending, lifting, sitting, or walking may worsen pain. It can be localized to one spot or area, or it can be more generalized. It can spread or radiate upwards, to the front, or go down your arms or legs (sciatica). It can cause muscle spasm. Most of the time, mechanical problems with the muscles or spine cause the pain. Mechanical problemsare usually caused by an injury to the muscles or ligaments. While illness can cause back pain, it is usually not caused by a serious illness. Mechanical problems include: Physical activity such as sports, exercise, work, or normal activity Overexertion, lifting, pushing, pulling incorrectly or too aggressively Sudden twisting, bending, or stretching from an accident, or accidental movement Poor posture Stretching or moving wrong, without noticing pain at the time Poor coordination, lack of regular exercise (check with your doctor about this) Spinal disc disease or arthritis Stress Pain can also be related to , or illness like appendicitis, bladder or kidney infections, pelvic infections, and many other things. Acute back pain usually gets better in 1 to 2 weeks. Back pain related to disk disease, arthritis in the spinal joints or spinal stenosis (narrowing of the spinal canal) can become chronic and last for months or years. Unless you had a physical injury (for example, a car accident or fall) X-rays are usually not needed for the initial evaluation of back pain. If pain continues and does not respond to medical treatment, X-rays and other tests may be needed. Home care Try these home care recommendations: When in bed, try to find a position of comfort. A firm mattress is best. Try lying flat on your back with pillows under your knees. You can also try lying on your side with your knees bent up towardsyour chest and a pillow between your knees. At first, do not try to stretch out the sore spots. If there is a strain, it is not like the good soreness you get after exercising without an injury. In this case, stretching may make it worse. Don't sit for long periods, as in a long car ride or during other travel. This puts more stress on the lower back than standing or walking. During the first 24 to 72 hours after an acute injury or flare up of chronic back pain, apply an ice pack to the painful area for 20 minutes and then remove it for 20 minutes. Do this over a period of 60 to 90 minutes or several times a day. This will reduce swelling and pain. Wrap the ice pack in a thin towel or plastic to protect your skin. You can start with ice, then switch to heat. Heat (hot shower, hot bath, or heating pad) reduces pain and works well for muscle spasms. Heat can be applied to the painful area for 20 minutes then remove it for 20 minutes. Do this over a period of 60 to 90 minutes or several times a day. Do not sleep on a heating pad. It can lead to skin bridges or tissue damage. You can alternate ice and heat therapy. Talk with your doctor about the best treatment for your back pain. Therapeutic massage can help relax the back muscles without stretching them. Be aware of safe lifting methods and do not lift anything without stretching first. Medicines Talk to your doctor before using medicine, especially if you have other medical problems or are taking other medicines. You may use iyek-qal-xiucfdf medicine as directed on the bottle to control pain, unless another pain medicine was prescribed. If you have chronic conditions like diabetes, liver or kidney disease, stomach ulcers, or gastrointestinal bleeding, or are taking blood thinners, talk to your doctor beforetaking any medicine. Be careful if you are given a prescription medicines, narcotics, or medicine for muscle spasms. They can cause drowsiness, affect your coordination, reflexes, and judgement. Do not drive or operate heavy machinery. Follow-up care Follow up with your healthcare provider, or as advised. A radiologist will review any X-rays that were taken. Your provide will notify you of any new findings that may affect your care. Call 911 Call 911 if any of the following occur: Trouble breathing Confusion Very drowsy or trouble awakening Fainting or loss of consciousness Rapid or very slow heart rate Loss of bowel or bladder control When to seek medical advice Call your healthcare provider right away if any of these occur: Pain becomes worse or spreads to your legs Weakness or numbness in one or both legs Numbness in the groin or genital area [phone] [employer]. [address] [place] [address]. All rights reserved. This information is not intended as a substitute for professional medical care. Always follow yourhealthcare professional's instructions. Additional Information VACCINATE! IT SAVES LIVES! Members of the community who have not yet received the COVID-19 vaccine and would like to receive it can visit one of [facility] vaccine clinics. There are many vaccine clinic locations within the [facility]. For locations and available times, please visit www.[email or web address].[place].gov/. It is important to note that some COVID mobile vaccine clinics are held outdoors and may be canceled in rainy or stormy conditions. To learn more about pediatric vaccinations (ages 5-11), we invite you to visit the [facility] webpage. [email or web address] learn more about the COVID-19 vaccine, we invite you to visit the CDC website for a list of frequently asked questions. https://www.cdc.gov/coronavirus/2019-ncov/vaccines/faq.html [facility] [employer] Patient Portal Access Instructions: Stay connected with your healthcare team and access your personal medical information anytime with the [facility] [employer] Patient Portal. If you would like a full copy of your medical records please contact the [facility] Medical Records Department Friday through Friday between 8a.m. and 4:30p.m. Please follow the directions below to access the portal: 1.Access the email account you provided upon registration to the hospital.2.Look for an invitation email from [facility].3.Open the email and access the invitation link: Accept Invitation to [facility]4.Fill in the required baugh to create your account. Sign into [email or web address] with your username and password that you created in the above steps to stay up to date. You can then view a summary of results, a summary of your visits, and the ability to download your summaries to your computer or send the information securely to a physician. Remember that your healthcare information is confidential, so carefully consider who you will allow to register on the [email or web address] Patient Portal for access to your information. You can also access the [email or web address] Patient Portal on the [employer]. Simply click on Health Records under [facility] and then click on the [employer] logo. HOW TO SAFELY DISPOSE OF PRESCRIPTION MEDICATIONS Please use one of the following methods to safely dispose of your unused medications. 1.Use a drug disposal kit: the drug disposal pouch allows you to safely discard your old and unuseddrugs. Ask your nurse to give you one when you are discharged.2.Visit a local take-back location: Many local pharmacies and police departments have programs that collect old and unwanted prescriptiondrugs. Call your local pharmacy or go to http://MMIS.[employer]/0N5Iq6s to find one close to you.3.Make use of household items: Use cat litter or old coffee grounds to dispose medications if other options arenot available. Mix your drugs with these household products, seal them in an airtight container andthrow it into the garbage. [facility]: [phone] to be sure your drugs can be disposed of in this way. Some medicines may require a different approach.4.Never flush your medications down the toilet. IF YOU HAVE BEEN PRESCRIBED AN OPIOIDS FOR PAIN If you have been prescribed an opioid (such as hydrocodone, oxycodone or morphine), it is critical to understand the possible side effects and risks of opioid pain medications. Even when taken as directed, opioids can have several side effects including: Tolerance, meaning you might need to take more of a medication for the same pain relief. Nausea, vomiting and/or constipation. Sleepiness, dizziness, dry mouth, confusion, depression or itching. Physical dependence, meaning you have withdrawal symptoms when a medication is stopped ? this can develop within a few days. KNOW YOUR RESPONSIBILITIES It is important to know exactly how much and how often to take the opioid pain medications you are prescribed. Never take opioids in higher amounts or more often than prescribed. Do not combine opioids with alcohol or other drugs that cause drowsiness, such as benzodiazepines, also known as benzos,including diazepam and alprazolam, muscle relaxants or sleep aids. Never sell or share prescriptionopioids. This is illegal. Store opioids in a secure place and out of reach of others (including children, family, friends and visitors). The last page(s) of this document has been signed and retained as a CHART COPY Signatures Patient Education Materials Back Pain (Acute or Chronic) Medication Leaflets My discharge plan and instructions have been reviewed and explained to me and I,BARRETT LOPEZ understand my current condition and have read and understand these discharge instructions. I have received a written copy of the plan/instructions. If I have questions, I am aware that I should contact my doctor. Patient/Hr Director Signature: Date/Time: Relationship to Patient: Witness Name/Signature: Date/Time: [facility]08-07-2024 Hospital Discharge instructions Patient Education 10/29/2023 20:49:43 Back Care Tips Back Care Tips Caring for your back These are things you can do to prevent a recurrence of acute back pain and to reduce symptoms from chronic back pain: Maintain a healthy weight. If you are overweight, losing weight will help most types of back pain. Exercise is an important part of recovery from most types of back pain. The muscles behind and in front of the spine support the back. This means strengthening both the back muscles and the abdominalmuscles will provide better support for your spine. Swimming and brisk walking are good overall exercises to improve your fitness level. Practice safe lifting methods (below). Practice good posture when sitting, standing and walking. Avoid prolonged sitting. This puts more stress on the lower back than standing or walking. Wear quality shoes with sufficient arch support. Foot and ankle alignment can affect back symptoms.Women should avoid wearing high heels. Therapeutic massage can help relax the back muscles without stretching them. During the first 24 to 72 hours after an acute injury or flare-up of chronic back pain, apply an ice pack to the painful area for 20 minutes and then remove it for 20 minutes, over a period of 60 to 90 minutes, or several times a day. As a safety precaution, do not use a heating pad at bedtime. Sleeping on a heating pad can lead to skin bridges or tissue damage. You can alternate ice and heat therapies. Medicines Talk to your healthcare provider before using medicines, especially if you have other medical problems or are taking other medicines. You may use acetaminophen or ibuprofen to control pain, unless your healthcare provider prescribed other pain medicine. If you have chronic conditions like diabetes, liver or kidney disease, stomach ulcers, or gastrointestinal bleeding, or are taking blood thinners, talk with your healthcare provider before taking any medicines. Be careful if you are given prescription pain medicines, narcotics, or medicine for muscle spasm. They can cause drowsiness, affect your coordination, reflexes, and judgment. Do not drive or operate heavy machinery while taking these types of medicines. Take prescription pain medicine only as prescribed by your healthcare provider. Lumbar stretch Here is a simple stretching exercise that will help relax muscle spasm and keep your back more limber. If exercise makes your back pain worse, don t do it. Lie on your back with your knees bent and both feet on the ground. Slowly raise your left knee to your chest as you flatten your lower back against the floor. Hold for 5 seconds. Relax and repeat the exercise with your right knee. Do 10 of these exercises for each leg. Safe lifting method Don t bend over at the waist to lift an object off the floor. Instead, bend your knees and hips in a squat. Keep your back and head upright Hold the object close to your body, directly in front of you. Straighten your legs to lift the object. Lower the object to the floor in the reverse fashion. If you must slide something across the floor, push it. Posture tips Sitting Sit in chairs with straight backs or low-back support. Keep your knees lower than your hips, with your feet flat on the floor. When driving, sit up straight. Adjust the seat forward so you are not leaning toward the steering wheel. A small pillow or rolled towel behind your lower back may help if you are driving long distances. Standing When standing for long periods, shift most of your weight to one leg at a time. Alternate legs every few minutes. Sleeping The best way to sleep is on your side with your knees bent. Put a low pillow under your head to support your neck in a neutral spine position. Avoid thick pillows that bend your neck to one side. Puta pillow between your legs to further relax your lower back. If you sleep on your back, put pillowsunder your knees to support your legs in a slightly flexed position. Use a firm mattress. If your mattress sags, replace it, or use a 1/2-inch plywood board under the mattress to add support. Follow-up care Follow up with your healthcare provider, or as advised. If X-rays, a CT scan or an MRI scan were taken, they will be reviewed by a radiologist. You will benotified of any new findings that may affect your care. Call 911 Call 911 if any of the following occur: Trouble breathing Confusion Very drowsy Fainting or loss of consciousness Rapid or very slow heart rate Loss of bowel or bladder control When to seek medical advice Call your healthcare provider right away if any of the following occur: Pain becomes worse or spreads to your arms or legs Weakness or numbness in one or both arms or legs Numbness in the groin area [id number] [employer]. [address] [place] [id number]. All rights reserved. This information is not intended as a substitute for professional medical care. Always follow yourhealthcare professional's instructions. Follow Up Care 10/29/2023 18:51:25 With:FAMILY VYONNE CHEUNG Address: [address] [place] [address]- [phone] When:2-4 days With:[facility]ILY [facility] Address: [address] [place] [phone] When:2-4 days With:HARSHAD RODRIGUEZ DO Address: [address] [place] [address] [place] [address]- [phone] When:2-4 days With:Follow up with primary care provider Address:Unknown When:2-4 days [facility] 08-07-2024 Note Discharge Instructions Thank you for allowing [facility] to assist you with your healthcare needs. The following is importantdischarge information regarding your hospital visit. What to Do Next Instructions from Your Care Team No qualifying data available. Post Acute Orders No qualifying data available. You Need to Schedule the Following Appointments Follow Up with FAMILY YVONNE CHEUNG When:Within 2-4 days Where:[address] [place] [address] [phone] [facility] When:Within 2-4 days Where:[address] [place] [address] [phone] Follow Up with HARSHAD RODRIGUEZ DO When:Within 2-4 days Where:[address] [place] [phone] Follow Up with Follow up with primary care provider When:Within 2-4 days Allergies codeine(Severe) Swelling of throat, Hives Latex Vicodin Hives lidocaine naproxen Medications Please ask your primary doctor or pharmacist before taking any other medication not listed, including over the counter drugs, herbal medications, vitamins and or supplements as they may interact [facility]. What How Much When Instructions Last Dose New baclofen (baclofen 20 mg oral tablet) 1 tab(s) by mouth Three (3) times a day Duration: 5 Days Printed Prescription New diclofenac topical (Voltaren 1% topical gel) 2 gram(s) Topical Four (4) times a day as needed for as needed for pain Printed Prescription Unchanged acetaminophen (Tylenol Extra Strength 500 mg oral tablet) 2 tab(s) by mouth Every 4 hours as needed for as needed for pain Unchanged aspirin (aspirin 81 mg oral tablet, chewable) 1 tab(s) by mouth Once a day with a meal Duration: 30 Days Unchanged atorvastatin (atorvastatin 80 mg oral tablet) 1 tab(s) by mouth Once a day Unchanged clopidogrel (Plavix 75 mg oral tablet) 1 tab(s) by mouth Once a day Take for 21 days total and then stop. Unchanged cyclobenzaprine (Flexeril use cyclobenzaprine ) by mouth As needed for Muscle spasm Please take this list to your next doctor s visit. Bring all medications you take, including over the counter medications, herbals and other supplements with you to your doctor s visit. Patients and families are reminded to discard old lists and to update any records with all medication providers or retail pharmacies. Medication Leaflets baclofen (oral) (PAOLO sheila fen) Fleqsuvy, Lyvispah, Ozobax DS What is the most important information I should know about baclofen? Use only as directed. Tell your doctor if you use other medicines or have other medical conditions or allergies. What is baclofen? Baclofen is used in adults and children at least 12 years old to treat muscle pain, spasms, and stiffness in people with multiple sclerosis or spinal cord injury or disease. Baclofen should not be used to treat muscle spasms from inflammatory (rheumatic) disorders. Baclofen may also be used for purposes not listed in this medication guide. What should I discuss with my healthcare provider before taking baclofen? You should not use baclofen if you are allergic to it. Tell your doctor if you have or have ever had: mental illness or psychotic disorders such as schizophrenia; seizures or epilepsy; problems with posture and balance; high blood pressure or a history of a condition called autonomic dysreflexia; a stroke, cerebral palsy, or Parkinson's disease; if you drink alcohol; ovarian cysts; or kidney disease. It is not known if baclofen will harm an unborn baby. If you take baclofen during , your baby could be born with withdrawal symptoms such as tremors or seizure, and may need medical treatment. Tell your doctor if you are or plan to become . Ask a doctor if it is safe to breastfeed while using this medicine. How should I take baclofen? Follow all directions on your prescription label and read all medication guides or instruction sheets. Your doctor may occasionally change your dose. Use the medicine exactly as directed. Your dose needs may change if you switch to a different brand, strength, or form of this medicine. Avoid medication errors by using exactly as directed on the label, or as prescribed by your doctor. Follow your doctor's dosing instructions very carefully. Shake the oral suspension (liquid). Measure liquid medicine with the supplied measuring device (not a kitchen spoon). Shake and pour the entire oral granules packet to dissolve in your mouth or swallow whole at once, with or without liquids. You may also mix the granules with liquids (milk or apple juice) or soft food (apple sauce, yogurt, or pudding). Take the medicine within 2 hours after mixing. The oral granules can also be given through a feeding tube. Read and carefully follow any Instructions for Use provided with your medicine. Ask your doctor or pharmacist if you do not understand these instructions. Call your doctor if your symptoms do not improve, or if they get worse. Do not stop using baclofen suddenly. This can cause dangerous side effects or . Ask your doctor before stopping the medicine. Store at room temperature away from moisture, heat, and light. Throw away any leftover oral suspension 2 months after you first opened the bottle. Some baclofen oral solution brand forms are stored in the refrigerator. Others are stored at room temperature. Ask your pharmacist how to properly store baclofen oral solution. What happens if I miss a dose? Take the medicine as soon as you can, but skip the missed dose if it is almost time for your next dose. Do not take two doses at one time. What happens if I overdose? Seek emergency medical attention or call the Poison Help line at . Overdose symptoms may include increasing drowsiness, dizziness, vomiting, trouble focusing on objects, shallow breathing, seizure, or muscle weakness leading to loss of consciousness. What should I avoid while taking baclofen? Drinking alcohol with this medicine can cause dangerous side effects. Avoid driving or hazardous activity until you know how this medicine will affect you. Dizziness or drowsiness can cause falls, accidents, or severe injuries. What are the possible side effects of baclofen? Get emergency medical help if you have signs of an allergic reaction: hives, difficult breathing, swelling of your face, lips, tongue, or throat. Call your doctor at once if you have: severe drowsiness; trouble standing or sitting up straight, problems with balance; fever, seizures; confusion, hallucinations; muscle stiffness, itching, tingling in hands and feet; or high blood pressure--severe headache, blurred vision, pounding in your neck or ears. Common side effects may include: drowsiness, dizziness, weakness, or tiredness. This is not a complete list of side effects and others may occur. Call your doctor for medical advice about side effects. You may report side effects to FDA at 1-041-FIV-6327. What other drugs will affect baclofen? Using baclofen with other drugs that make you drowsy can worsen this effect. Ask your doctor beforeusing opioid medication, a sleeping pill, a muscle relaxer, or medicine for anxiety or seizures. Other drugs may affect baclofen, including prescription and [id number] medicines, vitamins, and herbal products. Tell your doctor about all other medicines you use. Where can I get more information? Your doctor or pharmacist can provide more information about baclofen. Remember, keep this and all other medicines out of the reach of children, never share your medicines with others, and use this medication only for the indication prescribed. Every effort has been made to ensure that the information provided by [employer]. ('[employer]') is accurate, up-to-date, and complete, but no guarantee is made to that effect. Drug information contained herein may be time sensitive. [employer] information has been compiled for use by healthcare practitioners and consumers in the [place] and therefore [employer] does not warrant that uses outside of the [place] are appropriate, unless specifically indicated otherwise. [employer] drug information does not endorse drugs, diagnose patients or recommend therapy. [employer] drug information isan informational resource designed to assist licensed healthcare practitioners in caring for their p atients and/or to serve consumers viewing this service as a supplement to, and not a substitute for, the expertise, skill, knowledge and judgment of healthcare practitioners. The absence of a warningfor a given drug or drug combination in no way should be construed to indicate that the drug or drug combination is safe, effective or appropriate for any given patient. [employer] does not assume any responsibility for any aspect of healthcare administered with the aid of information [employer] provides. The information contained herein is not intended to cover all possible uses, directions, precautions, warnings, drug interactions, allergic reactions, or adverse effects. If you have questions about the drugs you are taking, check with your doctor, nurse or pharmacist. Copyright 5151-9166 [employer]. Version: 12.. Revision Date: 09/18/2023. diclofenac topical (dye KLOE fen ak TOP ik al) Aspercreme Arthritis Pain, DicloPrep-100, Motrin Arthritis Pain, Pennsaid, Rexaphenac, Salonpas Arthritis Pain Relief, Voltaren Arthritis Pain What is the most important information I should know about diclofenac topical? Diclofenac topical can increase your risk of fatal heart attack or stroke. Do not use this medicinejust before or after heart bypass surgery (coronary artery bypass graft, or CABG). Diclofenac topical may also cause stomach or intestinal bleeding, which can be fatal. What is diclofenac topical? Diclofenac topical (for the skin) is used in adults to treat joint pain caused by osteoarthritis. This medicine is for use on the hands, wrists, elbows, knees, ankles, or feet. Diclofenac topical is not for use on any other body area (such as back, hip, or shoulder). Diclofenac topical solution is for use only on the knees. Diclofenac topical 3% gel is used to treat warty overgrowths of skin (actinic keratosis) on sun-exposed areas of the body. Diclofenac topical may also be used for purposes not listed in this medication guide. What should I discuss with my healthcare provider before using diclofenac topical? Diclofenac topical can increase your risk of fatal heart attack or stroke. Do not use this medicinejust before or after heart bypass surgery (coronary artery bypass graft, or CABG). Diclofenac topical may also cause stomach or intestinal bleeding, which can be fatal. This can occur without warning, especially in older adults. You should not use diclofenac topical if you are allergic to it, or if you have: asthma, or a severe allergic reaction (sneezing, runny or stuffy nose, wheezing) after taking aspirin or another NSAID. Do not use diclofenac topical gel 3% if you have a skin condition such as eczema, a skin infection,bridges or wounds. Tell your doctor if you have ever had: heart disease, high blood pressure, high cholesterol, smoking, diabetes; a heart attack, stroke, or blood clot; stomach problems such as heartburn, ulcers or bleeding; any other bleeding problems; a habit of drinking more than 3 alcoholic beverages per day; asthma; fluid retention; or liver or kidney disease. Do not use diclofenac topical during unless your doctor tells you to. Using an NSAID in the last 20 weeks can harm the unborn baby or cause complications. Ask a doctor if it is safe to breastfeed while using this medicine. It may be harder for you to get while you are using this medicine. How should I use diclofenac topical? Follow all directions on your prescription label and read all medication guides or instruction sheets. Use the lowest effective dose for your condition. Diclofenac topical is usually applied up to 2 to 4 times a day. Do not use this medicine more oftenor longer than directed. Your doctor will determine how long you should use diclofenac topical. Your dose needs may change if you switch to a different brand, strength, or form of this medicine. Avoid medication errors by using exactly as directed on the label, or as prescribed by your doctor. Wash your hands before and after applying this medicine, unless you are using it to treat a hand condition. Clean and dry the affected area before application. Use only a small amount of medicine, apply a thin layer over the affected area and rub in gently. If you use diclofenac topical for arthritis pain, make sure to use the included dosing card when applying the medicine. Do not use large amounts of diclofenac topical without medical advice. Do not take by mouth. Topical medicine is for use only on the skin. Read and carefully follow any Instructions for Use provided with your medicine. Ask your doctor or pharmacist if you do not understand these instructions. Do not bandage treated skin, expose it to heat, or exercise right after applying. Your skin may absorb the medicine, which could cause harmful effects. You should wait until diclofenac topical has dried out where it was applied before using cosmetics,sunscreen, lotions, insect repellant, or other medicated skin products. Do not apply diclofenac topical in the eyes and nose, to more than 2 body areas at the same time, to sports injuries, an open skin wound, on areas of infection, rash, burn, or peeling skin. Call your doctor if your symptoms do not improve, or if they get worse. You may not fully benefit from this medicine for up to 30 days if you use it for actinic keratosis,and up to 7 days if you use it for arthritis pain. Your blood may need to be tested often. Store at room temperature away from moisture and heat. Do not freeze. What happens if I miss a dose? Apply the medicine as soon as you can, but skip the missed dose if it is almost time for your next dose. Do not apply two doses at one time. What happens if I overdose? Seek emergency medical attention or call the Poison Help line at if anyone has accidentally swallowed the medicine. What should I avoid while using diclofenac topical? Ask a doctor or pharmacist before using other medicines for pain, fever, swelling, or cold/flu symptoms. They may contain ingredients similar to diclofenac topical (such as aspirin, ibuprofen, ketoprofen, or naproxen). Avoid smoking and drinking alcohol. It may increase your risk of stomach bleeding. Avoid bathing or showering for at least 30 minutes after applying diclofenac topical solution. Avoid letting treated skin areas come into contact with other people. Diclofenac topical could make you sunburn more easily. Avoid sunlight or tanning beds. Wear protective clothing and use sunscreen (SPF 30 or higher) when you are outdoors. Avoid getting this medicine in your eyes. If contact does occur, rinse with water. Call your doctorif you have eye irritation that lasts longer than 1 hour. What are the possible side effects of diclofenac topical? Get emergency medical help if you have signs of an allergic reaction (hives, sneezing, runny or stuffy nose, wheezing or trouble breathing, swelling in your face or throat) or a severe skin reaction (fever, sore throat, burning eyes, skin pain, red or purple skin rash with blistering and peeling). Stop using diclofenac and seek medical treatment if you have a serious drug reaction that can affect many parts of your body. Symptoms may include skin rash, fever, swollen glands, muscle aches, severe weakness, unusual bruising, or yellowing of your skin or eyes. Get emergency medical help if you have signs of a heart attack or stroke: chest pain spreading to your jaw or shoulder, sudden numbness or weakness on one side of the body, slurred speech, leg swelling, feeling short of breath. Also call your doctor at once if you have: any skin rash, no matter how mild; kidney or heart problems--swelling, urinating less, rapid weight gain, feeling tired or short of breath; high blood potassium--tingly feeling, chest pain, irregular heartbeats, loss of movement; high blood pressure--severe headache, blurred vision, pounding in your neck or ears; liver problems--loss of appetite, nausea, vomiting, stomach pain (upper right side), itching, dark urine, jose l-colored stools, jaundice (yellowing of the skin or eyes); low red blood cells (anemia)--pale skin, unusual tiredness, feeling light-headed or short of breath, cold hands and feet; or signs of stomach bleeding--bloody or tarry stools, coughing up blood or vomit that looks like coffee grounds. Common side effects may include: skin redness, numbness or tingly feeling, itching, dryness, scaling, or peeling where the medicine was applied. This is not a complete list of side effects and others may occur. Call your doctor for medical advice about side effects. You may report side effects to FDA at 7-825-OME-0471. What other drugs will affect diclofenac topical? Ask your doctor before using diclofenac topical if you take an antidepressant. Taking certain antidepressants with an NSAID may cause you to bruise or bleed easily. Diclofenac topical can harm your kidneys or liver, especially if you also use certain medicines forinfections, control, high cholesterol, seizures, cancer, osteoporosis, organ transplant rejection, high blood pressure, or pain or arthritis (including Advil, Motrin, and Aleve). Tell your doctor about all your other medicines, especially: a blood thinner (warfarin, Coumadin, Jantoven); or steroid medicine (prednisone and others). This list is not complete and many other drugs may affect diclofenac. This includes prescription and blaj-coh-jvzxhwq medicines, vitamins, and herbal products. Not all possible drug interactions are listed here. Where can I get more information? Your doctor or pharmacist can provide more information about diclofenac topical. Remember, keep this and all other medicines out of the reach of children, never share your medicines with others, and use this medication only for the indication prescribed. Every effort has been made to ensure that the information provided by [employer]. ('[employer]') is accurate, up-to-date, and complete, but no guarantee is made to that effect. Drug information contained herein may be time sensitive. [employer] information has been compiled for use by healthcare practitioners and consumers in the [place] and therefore [employer] does not warrant that uses outside of the [place] are appropriate, unless specifically indicated otherwise. [employer]'s drug information does not endorse drugs, diagnose patients or recommend therapy. [employer] drug information isan informational resource designed to assist licensed healthcare practitioners in caring for their p atients and/or to serve consumers viewing this service as a supplement to, and not a substitute for, the expertise, skill, knowledge and judgment of healthcare practitioners. The absence of a warningfor a given drug or drug combination in no way should be construed to indicate that the drug or drug combination is safe, effective or appropriate for any given patient. [facility] does not assume any responsibility for any aspect of healthcare administered with the aid of information [facility] provides. The information contained herein is not intended to cover all possible uses, directions, precautions, warnings, drug interactions, allergic reactions, or adverse effects. If you have questions about the drugs you are taking, check with your doctor, nurse or pharmacist. Copyright 5920-1612 [facility] CenterAdlib[facility] IncLanguage123. Version: 15.. Revision Date: 05/19/2023. Education Materials Back Care Tips Caring for your back These are things you can do to prevent a recurrence of acute back pain and to reduce symptoms from chronic back pain: Maintain a healthy weight. If you are overweight, losing weight will help most types of back pain. Exercise is an important part of recovery from most types of back pain. The muscles behind and in front of the spine support the back. This means strengthening both the back muscles and the abdominalmuscles will provide better support for your spine. Swimming and brisk walking are good overall exercises to improve your fitness level. Practice safe lifting methods (below). Practice good posture when sitting, standing and walking. Avoid prolonged sitting. This puts more stress on the lower back than standing or walking. Wear quality shoes with sufficient arch support. Foot and ankle alignment can affect back symptoms.Women should avoid wearing high heels. Therapeutic massage can help relax the back muscles without stretching them. During the first 24 to 72 hours after an acute injury or flare-up of chronic back pain, apply an ice pack to the painful area for 20 minutes and then remove it for 20 minutes, over a period of 60 to 90 minutes, or several times a day. As a safety precaution, do not use a heating pad at bedtime. Sleeping on a heating pad can lead to skin bridges or tissue damage. You can alternate ice and heat therapies. Medicines Talk to your healthcare provider before using medicines, especially if you have other medical problems or are taking other medicines. You may use acetaminophen or ibuprofen to control pain, unless your healthcare provider prescribed other pain medicine. If you have chronic conditions like diabetes, liver or kidney disease, stomach ulcers, or gastrointestinal bleeding, or are taking blood thinners, talk with your healthcare provider before taking any medicines. Be careful if you are given prescription pain medicines, narcotics, or medicine for muscle spasm. They can cause drowsiness, affect your coordination, reflexes, and judgment. Do not drive or operate heavy machinery while taking these types of medicines. Take prescription pain medicine only as prescribed by your healthcare provider. Lumbar stretch Here is a simple stretching exercise that will help relax muscle spasm and keep your back more limber. If exercise makes your back pain worse, don t do it. Lie on your back with your knees bent and both feet on the ground. Slowly raise your left knee to your chest as you flatten your lower back against the floor. Hold for 5 seconds. Relax and repeat the exercise with your right knee. Do 10 of these exercises for each leg. Safe lifting method Don t bend over at the waist to lift an object off the floor. Instead, bend your knees and hips in a squat. Keep your back and head upright Hold the object close to your body, directly in front of you. Straighten your legs to lift the object. Lower the object to the floor in the reverse fashion. If you must slide something across the floor, push it. Posture tips Sitting Sit in chairs with straight backs or low-back support. Keep your knees lower than your hips, with your feet flat on the floor. When driving, sit up straight. Adjust the seat forward so you are not leaning toward the steering wheel. A small pillow or rolled towel behind your lower back may help if you are driving long distances. Standing When standing for long periods, shift most of your weight to one leg at a time. Alternate legs every few minutes. Sleeping The best way to sleep is on your side with your knees bent. Put a low pillow under your head to support your neck in a neutral spine position. Avoid thick pillows that bend your neck to one side. Puta pillow between your legs to further relax your lower back. If you sleep on your back, put pillowsunder your knees to support your legs in a slightly flexed position. Use a firm mattress. If your mattress sags, replace it, or use a 1/2-inch plywood board under the mattress to add support. Follow-up care Follow up with your healthcare provider, or as advised. If X-rays, a CT scan or an MRI scan were taken, they will be reviewed by a radiologist. You will benotified of any new findings that may affect your care. Call 911 Call 911 if any of the following occur: Trouble breathing Confusion Very drowsy Fainting or loss of consciousness Rapid or very slow heart rate Loss of bowel or bladder control When to seek medical advice Call your healthcare provider right away if any of the following occur: Pain becomes worse or spreads to your arms or legs Weakness or numbness in one or both arms or legs Numbness in the groin area 9928-4962 [employer]. [address] [place] [address], [place] [address]. All rights reserved. This information is not intended as a substitute for professional medical care. Always follow yourhealthcare professional's instructions. Additional Information VACCINATE! IT SAVES LIVES! Members of the community who have not yet received the COVID-19 vaccine and would like to receive it can visit one of [facility] vaccine clinics. There are many vaccine clinic locations within the [facility]. For locations and available times, please visit [email or web address] It is important to note that some COVID mobile vaccine clinics are held outdoors and may be canceled in rainy or stormy conditions. To learn more about pediatric vaccinations (ages 5-11), we invite you to visit the [facility] webpage. [email or web address]/[email or web address] [email or web address] learn more about the COVID-19 vaccine, we invite you to visit the CDC website for a list of frequently asked questions. https://www.cdc.gov/coronavirus/2019-ncov/vaccines/faq.html [facility] [employer] Patient Portal Access Instructions: Stay connected with your healthcare team and access your personal medical information anytime with the [facility] [employer] Patient Portal. If you would like a full copy of your medical records please contact the [facility] Medical Records Department Friday through Friday between 8a.m. and 4:30p.m. Please follow the directions below to access the portal: 1.Access the email account you provided upon registration to the [facility].2.Look for an invitation email from [facility].3.Open the email and access the invitation link: Accept Invitation to [email or web address].Fill in the required baugh to create your account. Sign into [email or web address] with your username and password that you created in the above steps to stay up to date. You can then view a summary of results, a summary of your visits, and the ability to download your summaries to your computer or send the information securely to a physician. Remember that your healthcare information is confidential, so carefully consider who you will allow to register on the [facility] [employer] Patient Portal for access to your information. You can also access the [email or web address] Patient Portal on the [employer]. Simply click on Health Records under Kae[facility]ferportal and then click on the [employer] logo. HOW TO SAFELY DISPOSE OF PRESCRIPTION MEDICATIONS Please use one of the following methods to safely dispose of your unused medications. 1.Use a drug disposal kit: the drug disposal pouch allows you to safely discard your old and unuseddrugs. Ask your nurse to give you one when you are discharged.2.Visit a local take-back location: Many local pharmacies and police departments have programs that collect old and unwanted prescriptiondrugs. Call your local pharmacy or go to http://MMIS.[employer]/1M7Sj6q to find one close to you.3.Make use of household items: Use cat litter or old coffee grounds to dispose medications if other options arenot available. Mix your drugs with these household products, seal them in an airtight container andthrow it into the garbage. Call [facility]: [phone] to be sure your drugs can be disposed of in this way. Some medicines may require a different approach.4.Never flush your medications down the toilet. IF YOU HAVE BEEN PRESCRIBED AN OPIOIDS FOR PAIN If you have been prescribed an opioid (such as hydrocodone, oxycodone or morphine), it is critical to understand the possible side effects and risks of opioid pain medications. Even when taken as directed, opioids can have several side effects including: Tolerance, meaning you might need to take more of a medication for the same pain relief. Nausea, vomiting and/or constipation. Sleepiness, dizziness, dry mouth, confusion, depression or itching. Physical dependence, meaning you have withdrawal symptoms when a medication is stopped ? this can develop within a few days. KNOW YOUR RESPONSIBILITIES It is important to know exactly how much and how often to take the opioid pain medications you are prescribed. Never take opioids in higher amounts or more often than prescribed. Do not combine opioids with alcohol or other drugs that cause drowsiness, such as benzodiazepines, also known as benzos,including diazepam and alprazolam, muscle relaxants or sleep aids. Never sell or share prescriptionopioids. This is illegal. Store opioids in a secure place and out of reach of others (including children, family, friends and visitors). The last page(s) of this document has been signed and retained as a CHART COPY Signatures Patient Education Materials Back Care Tips Medication Leaflets baclofen (oral), diclofenac topical My discharge plan and instructions have been reviewed and explained to me and I,BARRETT LOPEZ understand my current condition and have read and understand these discharge instructions. I have received a written copy of the plan/instructions. If I have questions, I am aware that I should contact my doctor. Patient/Hr Director Signature: Date/Time: Relationship to Patient: Witness Name/Signature: Date/Time: [facility]07-12-2024 Hospital Discharge instructions Patient Education 10/03/2023 20:57:22 Rib Contusion Rib Contusion A rib contusion is a bruise to one or more rib bones. It may cause pain, tenderness, swelling and apurplish discoloration. There may be a sharp pain while breathing. You will be assessed for other injuries. You will likely be given pain medicine. Rib contusions heal on their own, without further treatment. However, pain may take weeks to months to go away. Note that a small crack (fracture) in the rib may cause the same symptoms as a rib contusion. The small crack may not be seen on a chest X-ray. However, the conditions are managed in the same way. Home care Rest. Avoid heavy lifting, strenuous exertion, or any activity that causes pain. Ice the area to reduce pain and swelling. Put ice cubes in a plastic bag or use a cold pack. (Wrap the cold source in a thin towel. Do not place it directly on your skin.) Ice the injured area for 20minutes every 1 to 2 hours the first day. Continue with ice packs 3 to 4 times a day for the next 2days, then as needed for the relief of pain and swelling. Take any prescribed pain medicine as directed by your healthcare provider. If none was prescribed, take acetaminophen, ibuprofen, or naproxen to control pain. If you have a significant injury, you may be given a device called an incentive spirometer to keep your lungs healthy. Use as directed. Follow-up care Follow up with your healthcare provider during the next week or as directed. When to seek medical advice Call your healthcare provider for any of the following: Shortness of breath or trouble breathing Increasing chest pain with breathing Coughing Dizziness, weakness, or fainting New or worsening pain Fever of 100.4 F (38 C) or higher, or as directed by your healthcare provider 2621-3922 [employer]. [address] [place] [address]. All rights reserved. This information is not intended as a substitute for professional medical care. Always follow yourhealthcare professional's instructions. Follow Up Care 10/03/2023 20:43:56 With:Call Physician Referral Address:Unknown When:2-4 days [facility] 07-12-2024 Emergency department Discharge summary Discharge Instructions Thank you for allowing [facility] to assist you with your healthcare needs. The following is importantdischarge information regarding your hospital visit. What to Do Next Instructions from Your Care Team No qualifying data available. Post Acute Orders No qualifying data available. You Need to Schedule the Following Appointments Follow Up with Call Physician Referral When:Within 2-4 days Allergies codeine(Severe) Swelling of throat, Hives Latex Vicodin Hives lidocaine naproxen Medications Please ask your primary doctor or pharmacist before taking any other medication not listed, including over the counter drugs, herbal medications, vitamins and or supplements as they may interact withyour home medications. What How Much When Instructions Last Dose New ibuprofen (ibuprofen 600 mg oral tablet) 1 tab(s) by mouth Every 8 hours Duration: 5 Days Printed Prescription Changed cyclobenzaprine (cyclobenzaprine 10 mg oral tablet) 1 tab(s) by mouth Three (3) times a day Duration: 3 Days Printed Prescription Changed cyclobenzaprine (Flexeril use cyclobenzaprine ) by mouth As needed for Muscle spasm Unchanged acetaminophen (Tylenol Extra Strength 500 mg oral tablet) 2 tab(s) by mouth Every 4 hours as needed for as needed for pain Unchanged aspirin (aspirin 81 mg oral tablet, chewable) 1 tab(s) by mouth Once a day with a meal Duration: 30 Days Unchanged atorvastatin (atorvastatin 80 mg oral tablet) 1 tab(s) by mouth Once a day Unchanged clopidogrel (Plavix 75 mg oral tablet) 1 tab(s) by mouth Once a day Take for 21 days total and then stop. Please take this list to your next doctor s visit. Bring all medications you take, including over the counter medications, herbals and other supplements with you to your doctor s visit. Patients and families are reminded to discard old lists and to update any records with all medication providers or retail pharmacies. Education Materials Rib Contusion A rib contusion is a bruise to one or more rib bones. It may cause pain, tenderness, swelling and apurplish discoloration. There may be a sharp pain while breathing. You will be assessed for other injuries. You will likely be given pain medicine. Rib contusions heal on their own, without further treatment. However, pain may take weeks to months to go away. Note that a small crack (fracture) in the rib may cause the same symptoms as a rib contusion. The small crack may not be seen on a chest X-ray. However, the conditions are managed in the same way. Home care Rest. Avoid heavy lifting, strenuous exertion, or any activity that causes pain. Ice the area to reduce pain and swelling. Put ice cubes in a plastic bag or use a cold pack. (Wrap the cold source in a thin towel. Do not place it directly on your skin.) Ice the injured area for 20minutes every 1 to 2 hours the first day. Continue with ice packs 3 to 4 times a day for the next 2days, then as needed for the relief of pain and swelling. Take any prescribed pain medicine as directed by your healthcare provider. If none was prescribed, take acetaminophen, ibuprofen, or naproxen to control pain. If you have a significant injury, you may be given a device called an incentive spirometer to keep your lungs healthy. Use as directed. Follow-up care Follow up with your healthcare provider during the next week or as directed. When to seek medical advice Call your healthcare provider for any of the following: Shortness of breath or trouble breathing Increasing chest pain with breathing Coughing Dizziness, weakness, or fainting New or worsening pain Fever of 100.4 F (38 C) or higher, or as directed by your healthcare provider [phone] [employer]. [address] [place] [address]. All rights reserved. This information is not intended as a substitute for professional medical care. Always follow yourhealthcare professional's instructions. Additional Information VACCINATE! IT SAVES LIVES! Members of the community who have not yet received the COVID-19 vaccine and would like to receive it can visit one of [facility] vaccine clinics. There are many vaccine clinic locations within the [facility]. For locations and available times, please visit [email or web address]/. It is important to note that some COVID mobile vaccine clinics are held outdoors and may be canceled in rainy or stormy conditions. To learn more about pediatric vaccinations (ages 5-11), we invite you to visit the [facility] webpage. [email or web address] [email or web address] learn more about the COVID-19 vaccine, we invite you to visit the CDC website for a list of frequently asked questions. https://www.cdc.gov/coronavirus/2019-ncov/vaccines/faq.html [facility] [employer] Patient Portal Access Instructions: Stay connected with your healthcare team and access your personal medical information anytime with the [facility] [employer] Patient Portal. If you would like a full copy of your medical records please contact the [facility] Medical Records Department Friday through Friday between 8a.m. and 4:30p.m. Please follow the directions below to access the portal: 1.Access the email account you provided upon registration to the hospital.2.Look for an invitation email from [facility].3.Open the email and access the invitation link: Accept Invitation to [email or web address].Fill in the required baugh to create your account. Sign into [email or web address] with your username and password that you created in the above steps to stay up to date. You can then view a summary of results, a summary of your visits, and the ability to download your summaries to your computer or send the information securely to a physician. Remember that your healthcare information is confidential, so carefully consider who you will allow to register on the [email or web address] Patient Portal for access to your information. You can also access the [email or web address] Patient Portal on the [employer]. Simply click on Health Records under [employer] and then click on the [employer] logo. HOW TO SAFELY DISPOSE OF PRESCRIPTION MEDICATIONS Please use one of the following methods to safely dispose of your unused medications. 1.Use a drug disposal kit: the drug disposal pouch allows you to safely discard your old and unuseddrugs. Ask your nurse to give you one when you are discharged.2.Visit a local take-back location: Many local pharmacies and police departments have programs that collect old and unwanted prescriptiondrugs. Call your local pharmacy or go to http://MMIS.[employer]/7Q6Lr4t to find one close to you.3.Make use of household items: Use cat litter or old coffee grounds to dispose medications if other options arenot available. Mix your drugs with these household products, seal them in an airtight container andthrow it into the garbage. Call [facility]: [phone] to be sure your drugs can be disposed of in this way. Some medicines may require a different approach.4.Never flush your medications down the toilet. IF YOU HAVE BEEN PRESCRIBED AN OPIOIDS FOR PAIN If you have been prescribed an opioid (such as hydrocodone, oxycodone or morphine), it is critical to understand the possible side effects and risks of opioid pain medications. Even when taken as directed, opioids can have several side effects including: Tolerance, meaning you might need to take more of a medication for the same pain relief. Nausea, vomiting and/or constipation. Sleepiness, dizziness, dry mouth, confusion, depression or itching. Physical dependence, meaning you have withdrawal symptoms when a medication is stopped ? this can develop within a few days. KNOW YOUR RESPONSIBILITIES It is important to know exactly how much and how often to take the opioid pain medications you are prescribed. Never take opioids in higher amounts or more often than prescribed. Do not combine opioids with alcohol or other drugs that cause drowsiness, such as benzodiazepines, also known as benzos,including diazepam and alprazolam, muscle relaxants or sleep aids. Never sell or share prescriptionopioids. This is illegal. Store opioids in a secure place and out of reach of others (including children, family, friends and visitors). The last page(s) of this document has been signed and retained as a CHART COPY Signatures Patient Education Materials Rib Contusion Medication Leaflets My discharge plan and instructions have been reviewed and explained to me and I,BARRETT LOPEZ understand my current condition and have read and understand these discharge instructions. I have received a written copy of the plan/instructions. If I have questions, I am aware that I should contact my doctor. Patient/Hr Director Signature: Date/Time: Relationship to Patient: Witness Name/Signature: Date/Time: [facility]06-03-2024 Hospital Discharge instructions Patient Education 08/25/2023 19:12:13 Self-Care for Sore Throats Self-Care for Sore Throats Sore throats happen for many reasons, such as colds, allergies, and infections caused by viruses orbacteria. In any case, your throat becomes red and sore. Your goal for self-care is to reduce your discomfort while giving your throat a chance to heal. Moisten and soothe your throat Tips include the following: Try a sip of water first thing after waking up. Keep your throat moist by drinking 6 or more glasses of clear liquids every day. Run a cool-air humidifier in your room overnight. Avoid cigarette smoke. Suck on throat lozenges, cough drops, hard candy, ice chips, or frozen fruit- juice bars. Use the sugar-free versions if your diet or medical condition requires them. Gargle to ease irritation Gargling every hour or 2 can ease irritation. Try gargling with 1 of these solutions: 1/4 teaspoon of salt in 1/2 cup of warm water An zjrt-gmr-sfhamip anesthetic gargle Use medicine for more relief Tgpe-hqp-qiwngid medicine can reduce sore throat symptoms. Ask your pharmacist if you have questions about which medicine to use: Ease pain with anesthetic sprays. Aspirin or an aspirin substitute also helps. Remember, never giveaspirin to anyone 18 or younger, or if you are already taking blood thinners. For sore throats caused by allergies, try antihistamines to block the allergic reaction. Remember: unless a sore throat is caused by a bacterial infection, antibiotics won t help you. Prevent future sore throats Prevention tips include the following: Stop smoking or reduce contact with secondhand smoke. Smoke irritates the tender throat lining. Limit contact with pets and with allergy-causing substances, such as pollen and mold. When you re around someone with a sore throat or cold, wash your hands often to keep viruses or bacteria from spreading. Don t strain your vocal cords. Contact your healthcare provider if you have: A temperature over 101 F (38.3 C) White spots on the throat Great difficulty swallowing Trouble breathing A skin rash Recent exposure to someone else with strep bacteria Severe hoarseness and swollen glands in the neck or jaw [id number] [employer]. [address] [place] [address], [place] [address]. All rights reserved. This information is not intended as a substitute for professional medical care. Always follow yourhealthcare professional's instructions. 08/25/2023 19:11:48 Understanding Tooth Decay Understanding Tooth Decay Plaque is a sticky coating of bacteria and other substances that forms on your teeth and gums. It can cause 2 serious problems: tooth decay and gum disease. These problems damage the teeth and gums. They may even lead to tooth loss. When the mouth is well cared for, tooth decay and gum disease can be reversed in their early stages. Better yet, you can prevent these problems from starting by: Brushing and flossing daily Not snacking between meals on foods high in sugar and starch How tooth decay occurs Tooth decay happens when bacteria in plaque make acids that eat away at the tooth. Cavities (also called caries) are holes that form in the teeth. They are most common in places that are hard to reach with a toothbrush. This includes the grooves at the tops of the back teeth, and on the sides wherethe teeth touch. In late stages, tooth decay can be painful. It can also lead to tooth loss. Treating tooth decay Tooth decay can be treated to keep it from moving farther into the tooth. This is often done by filling cavities. First any tooth decay is removed. This protects the tooth from more damage. Then the cavity is filled with a hard material. This filling protects the damaged tooth and restores the tooth's surface. If the tooth is severely damaged by decay, other treatments are available. Follow-up visits Visit your dental team at least every 6 months for a checkup and cleaning. If you re being treated for tooth decay or gum disease, you may need more frequent visits. These visits will likely decreaseas your mouth care efforts start to pay off. Keep flossing and brushing, and maintain a healthy diet. Follow any special instructions your dentist or dental hygienist gives you. And enjoy flashing your healthy smile! [phone] [employer]. [address] [place] [address]. All rights reserved. This information is not intended as a substitute for professional medical care. Always follow yourhealthcare professional's instructions. Follow Up Care 08/25/2023 16:34:02 With:KOKO NICK Address: [address] [place] [address] [place] [phone] Business (1) When:Within 1 Day(s) Comments:Return to ED if symptoms worsen [facility] 06-03-2024 Emergency department Discharge summary Discharge Instructions Thank you for allowing [facility] to assist you with your healthcare needs. The following is importantdischarge information regarding your hospital visit. Diagnosis from Today's Visit Dental caries Vallecular cyst What to Do Next Instructions from Your Care Team No qualifying data available. Post Acute Orders No qualifying data available. You Need to Schedule the Following Appointments Follow Up with KOKO NICK When:In 1 day Where:[address] [place] [phone] Business (1) Additional Information: Return to ED if symptoms worsen Allergies codeine(Severe) Swelling of throat, Hives Latex Vicodin Hives lidocaine naproxen Medications Please ask your primary doctor or pharmacist before taking any other medication not listed, including over the counter drugs, herbal medications, vitamins and or supplements as they may interact withyour home medications. What How Much When Instructions Last Dose New clindamycin (clindamycin 150 mg oral capsule) 2 cap by mouth Every 8 hours Duration: 10 Days Printed Prescription Unchanged acetaminophen (Tylenol Extra Strength 500 mg oral tablet) 2 tab(s) by mouth Every 4 hours as needed for as needed for pain Unchanged aspirin (aspirin 81 mg oral tablet, chewable) 1 tab(s) by mouth Once a day with a meal Duration: 30 Days Unchanged atorvastatin (atorvastatin 80 mg oral tablet) 1 tab(s) by mouth Once a day Unchanged clopidogrel (Plavix 75 mg oral tablet) 1 tab(s) by mouth Once a day Take for 21 days total and then stop. Unchanged cyclobenzaprine (Flexeril use cyclobenzaprine ) by mouth As needed for Muscle spasm Please take this list to your next doctor s visit. Bring all medications you take, including over the counter medications, herbals and other supplements with you to your doctor s visit. Patients and families are reminded to discard old lists and to update any records with all medication providers or retail pharmacies. Education Materials Self-Care for Sore Throats Sore throats happen for many reasons, such as colds, allergies, and infections caused by viruses orbacteria. In any case, your throat becomes red and sore. Your goal for self-care is to reduce your discomfort while giving your throat a chance to heal. Moisten and soothe your throat Tips include the following: Try a sip of water first thing after waking up. Keep your throat moist by drinking 6 or more glasses of clear liquids every day. Run a cool-air humidifier in your room overnight. Avoid cigarette smoke. Suck on throat lozenges, cough drops, hard candy, ice chips, or frozen fruit- juice bars. Use the sugar-free versions if your diet or medical condition requires them. Gargle to ease irritation Gargling every hour or 2 can ease irritation. Try gargling with 1 of these solutions: 1/4 teaspoon of salt in 1/2 cup of warm water An gwsb-rre-qfzmnpr anesthetic gargle Use medicine for more relief Ucza-vjq-nwqfehb medicine can reduce sore throat symptoms. Ask your pharmacist if you have questions about which medicine to use: Ease pain with anesthetic sprays. Aspirin or an aspirin substitute also helps. Remember, never giveaspirin to anyone 18 or younger, or if you are already taking blood thinners. For sore throats caused by allergies, try antihistamines to block the allergic reaction. Remember: unless a sore throat is caused by a bacterial infection, antibiotics won t help you. Prevent future sore throats Prevention tips include the following: Stop smoking or reduce contact with secondhand smoke. Smoke irritates the tender throat lining. Limit contact with pets and with allergy-causing substances, such as pollen and mold. When you re around someone with a sore throat or cold, wash your hands often to keep viruses or bacteria from spreading. Don t strain your vocal cords. Contact your healthcare provider if you have: A temperature over 101 F (38.3 C) White spots on the throat Great difficulty swallowing Trouble breathing A skin rash Recent exposure to someone else with strep bacteria Severe hoarseness and swollen glands in the neck or jaw [phone] [employer]. [address] [place], [place] [id number]. All rights reserved. This information is not intended as a substitute for professional medical care. Always follow yourhealthcare professional's instructions. Understanding Tooth Decay Plaque is a sticky coating of bacteria and other substances that forms on your teeth and gums. It can cause 2 serious problems: tooth decay and gum disease. These problems damage the teeth and gums. They may even lead to tooth loss. When the mouth is well cared for, tooth decay and gum disease can be reversed in their early stages. Better yet, you can prevent these problems from starting by: Brushing and flossing daily Not snacking between meals on foods high in sugar and starch How tooth decay occurs Tooth decay happens when bacteria in plaque make acids that eat away at the tooth. Cavities (also called caries) are holes that form in the teeth. They are most common in places that are hard to reach with a toothbrush. This includes the grooves at the tops of the back teeth, and on the sides wherethe teeth touch. In late stages, tooth decay can be painful. It can also lead to tooth loss. Treating tooth decay Tooth decay can be treated to keep it from moving farther into the tooth. This is often done by filling cavities. First any tooth decay is removed. This protects the tooth from more damage. Then the cavity is filled with a hard material. This filling protects the damaged tooth and restores the tooth's surface. If the tooth is severely damaged by decay, other treatments are available. Follow-up visits Visit your dental team at least every 6 months for a checkup and cleaning. If you re being treated for tooth decay or gum disease, you may need more frequent visits. These visits will likely decreaseas your mouth care efforts start to pay off. Keep flossing and brushing, and maintain a healthy diet. Follow any special instructions your dentist or dental hygienist gives you. And enjoy flashing your healthy smile! [phone] [employer]. [address] [place] [address]. All rights reserved. This information is not intended as a substitute for professional medical care. Always follow yourhealthcare professional's instructions. Additional Information VACCINATE! IT SAVES LIVES! Members of the community who have not yet received the COVID-19 vaccine and would like to receive it can visit one of [facility] vaccine clinics. There are many vaccine clinic locations within the [facility]. For locations and available times, please visit www.gettheshot.coronavirus.[place].gov/. It is important to note that some COVID mobile vaccine clinics are held outdoors and may be canceled in rainy or stormy conditions. To learn more about pediatric vaccinations (ages 5-11), we invite you to visit the [facility] webpage. [email or web address].[email or web address]/[email or web address] [email or web address] learn more about the COVID-19 vaccine, we invite you to visit the CDC website for a list of frequently asked questions. https://www.cdc.gov/coronavirus/2019-ncov/vaccines/faq.html [facility] [employer] Patient Portal Access Instructions: Stay connected with your healthcare team and access your personal medical information anytime with the [email or web address] Patient Portal. If you would like a full copy of your medical records please contact the [facility] Medical Records Department Friday through Friday between 8a.m. and 4:30p.m. Please follow the directions below to access the portal: 1.Access the email account you provided upon registration to the [facility].2.Look for an invitation email from [facility].3.Open the email and access the invitation link: Accept Invitation to [facility] [employer]4.Fill in the required baugh to create your account. Sign into [email or web address] with your username and password that you created in the above steps to stay up to date. You can then view a summary of results, a summary of your visits, and the ability to download your summaries to your computer or send the information securely to a physician. Remember that your healthcare information is confidential, so carefully consider who you will allow to register on the [email or web address] Patient Portal for access to your information. You can also access the [email or web address] Patient Portal on the [employer] priscila. Simply click on Health Records under [employer] and then click on the [employer] logo. HOW TO SAFELY DISPOSE OF PRESCRIPTION MEDICATIONS Please use one of the following methods to safely dispose of your unused medications. 1.Use a drug disposal kit: the drug disposal pouch allows you to safely discard your old and unuseddrugs. Ask your nurse to give you one when you are discharged.2.Visit a local take-back location: Many local pharmacies and police departments have programs that collect old and unwanted prescriptiondrugs. Call your local pharmacy or go to http://bit.[employer]/2N9Pv9r to find one close to you.3.Make use of household items: Use cat litter or old coffee grounds to dispose medications if other options arenot available. Mix your drugs with these household products, seal them in an airtight container andthrow it into the garbage. Call [facility]: [phone] to be sure your drugs can be disposed of in this way. Some medicines may require a different approach.4.Never flush your medications down the toilet. IF YOU HAVE BEEN PRESCRIBED AN OPIOIDS FOR PAIN If you have been prescribed an opioid (such as hydrocodone, oxycodone or morphine), it is critical to understand the possible side effects and risks of opioid pain medications. Even when taken as directed, opioids can have several side effects including: Tolerance, meaning you might need to take more of a medication for the same pain relief. Nausea, vomiting and/or constipation. Sleepiness, dizziness, dry mouth, confusion, depression or itching. Physical dependence, meaning you have withdrawal symptoms when a medication is stopped ? this can develop within a few days. KNOW YOUR RESPONSIBILITIES It is important to know exactly how much and how often to take the opioid pain medications you are prescribed. Never take opioids in higher amounts or more often than prescribed. Do not combine opioids with alcohol or other drugs that cause drowsiness, such as benzodiazepines, also known as benzos,including diazepam and alprazolam, muscle relaxants or sleep aids. Never sell or share prescriptionopioids. This is illegal. Store opioids in a secure place and out of reach of others (including children, family, friends and visitors). The last page(s) of this document has been signed and retained as a CHART COPY Signatures Patient Education Materials Self-Care for Sore Throats Understanding Tooth Decay Medication Leaflets My discharge plan and instructions have been reviewed and explained to me and I,BARRETT LOPEZ understand my current condition and have read and understand these discharge instructions. I have received a written copy of the plan/instructions. If I have questions, I am aware that I should contact my doctor. Patient/Hr Director Signature: Date/Time: Relationship to Patient: Witness Name/Signature: Date/Time: [facility]2024 Note ORIGINAL EXAMINATION: CT SOFT TISSUE NECK W/ CONTRAST TECHNIQUE: Multiple-row detector helical CT examination of the neck with IV contrast. Nonionic intravenous contrast material was administered per standard departmental protocol. This exam was performed according to our departmental dose optimization program, and includes the following measures where applicable: automated exposure control, adjustment of the mAs and/or kVp according to patient size and/or exam, and an iterative reconstruction algorithm. COMPARISON: CTA neck 08/20/2023 HISTORY: Sore throat, difficulty swallowing for a couple days FINDINGS: Small hyperdensity within the right vallecula may represent mucus secretions. Otherwise, the aerodigestive structures are within normal limits. Specifically, the nasal cavity, nasopharynx, oral cavity, oropharynx, hypopharynx, larynx, and visualized trachea and esophagus demonstrate no masses or abnormal enhancement. There are no pathologically enlarged, necrotic, or otherwise abnormal lymph nodes. The parotid glands, submandibular glands, and the thyroid gland are normal in size without focal abnormality. Evaluation of the visualized portions of brain parenchyma and orbits demonstrates no acute abnormality. Small CSF density lesion posterior and medial to the left cerebellum may represent a small arachnoid cyst or estefany cisterna magna. This measures up to 1.8 cm in greatest axial dimension. Mucous retention cyst in the right maxillary sinus. The remainder of the included paranasal sinuses and tympanomastoid cavities are well pneumatized. There is normal intravascular enhancement. Mild multilevel degenerative disc disease is seen throughout the cervical spine. No suspicious osteolytic or osteoblastic lesions are seen. There is a right mandibular periapical lucency and there are multiple dental caries. The lung apices are clear. IMPRESSION: No cause for the patient's symptoms identified. Small hyperdensity within the right vallecula may represent mucus secretions. Additional chronic and incidental findings as above. Dental caries and right mandibular periapical lucency for which dental evaluation is recommended. REPORT CORRECTION I have personally reviewed the images of this examination and edited the preliminary report. Correction: Dental caries and right mandibular periapical lucency for which dental evaluation is recommended. Interpreted by: Elinor Wise Preliminary Report By: Stefano Booker Electronically signed By Elinor Wise Dictated Date: 08/25/2023 6:31:47 PM Prelim Date: 08/25/2023 6:40:06 PM Sign Date: 08/25/2023 6:49:07 PM Ordering Provider: [facility]05-30-2024 Hospital Discharge instructions Patient Education 08/21/2023 13:31:16 Transient Ischemic Attack, Hkob-jo-Rhct Transient Ischemic Attack A transient ischemic attack (TIA) is a warning stroke that causes stroke-like symptoms that go away quickly. A TIA does not cause lasting damage to the brain. But having a TIA is a sign that you may be at risk for a stroke. Lifestyle changes and medical treatments can help prevent a stroke. It is important to know the symptoms of a TIA and what to do. Get help right away, even if your symptoms go away. The symptoms of a TIA are the same as those of a stroke. They can happen fast, and they usually go away within minutes or hours. They can include: Weakness or loss of feeling in your face, arm, or leg. This often happens on one side of your body. Trouble walking. Trouble moving your arms or legs. Trouble talking or understanding what people are saying. Trouble seeing. Seeing two of one object (double vision). Feeling dizzy. Feeling confused. Loss of balance or coordination. Feeling sick to your stomach (nauseous) and throwing up (vomiting). A very bad headache for no reason. What increases the risk? Certain things may make you more likely to have a TIA. Some of these are things that you can change, such as: Being very overweight (obese). Using products that contain nicotine or tobacco, such as cigarettes and e-cigarettes. Taking control pills. Not being active. Drinking too much alcohol. Using drugs. Other risk factors include: Having an irregular heartbeat (atrial fibrillation). Being or . Having had blood clots, stroke, TIA, or heart attack in the past. Being a woman with a history of high blood pressure in (preeclampsia). Being over the age of 60. Being male. Having family history of stroke. Having the following diseases or conditions: ?High blood pressure. ?High cholesterol. ?Diabetes. ?Heart disease. ?Sickle cell disease. ?Sleep apnea. ?Migraine headache. ?Long-term (chronic) diseases that cause soreness and swelling (inflammation). ?Disorders that affect how your blood clots. Follow these instructions at home: Medicines Take lvkd-oho-ygnehpa and prescription medicines only as told by your doctor. If you were told to take aspirin or another medicine to thin your blood, take it exactly as told byyour doctor. ?Taking too much of the medicine can cause bleeding. ?Taking too little of the medicine may not work to treat the problem. Eating and drinking Eat 5 or more servings of fruits and vegetables each day. Follow instructions from your doctor about your diet. You may need to follow a certain diet to helplower your risk of having a stroke. You may need to: ?Eat a diet that is low in fat and salt. ?Eat foods that contain a lot of fiber. ?Limit the amount of carbohydrates and sugar in your diet. Limit alcohol intake to 1 drink a day for non women and 2 drinks a day for men. One drink equals 12 oz of beer, 5 oz of wine, or 1 oz of hard liquor. General instructions Keep a healthy weight. Stay active. Try to get at least 30 minutes of activity on all or most days. Find out if you have a condition called sleep apnea. Get treatment if needed. Do not use any products that contain nicotine or tobacco, such as cigarettes and e-cigarettes. If you need help quitting, ask your doctor. Do not abuse drugs. Keep all follow-up visits as told by your doctor. This is important. Get help right away if: You have any signs of stroke. BE FAST is an easy way to remember the main warning signs: ?B - Balance. Signs are dizziness, sudden trouble walking, or loss of balance. ?E - Eyes. Signs are trouble seeing or a sudden change in how you see. ?F - Face. Signs are sudden weakness or loss of feeling of the face, or the face or eyelid droopingon one side. ?A - Arms. Signs are weakness or loss of feeling in an arm. This happens suddenly and usually on one side of the body. ?S - Speech. Signs are sudden trouble speaking, slurred speech, or trouble understanding what people say. ?T - Time. Time to call emergency services. Write down what time symptoms started. You have other signs of stroke, such as: ? A sudden, very bad headache with no known cause. ? Feeling sick to your stomach (nausea). ? Throwing up (vomiting). ?Jerky movements that you cannot control (seizure). These symptoms may be an emergency. Do not wait to see if the symptoms will go away. Get medical help right away. Call your local emergency services (911 in the [place] Do not drive yourself to the hospital. Summary A transient ischemic attack (TIA) is a warning stroke that causes stroke-like symptoms that go away quickly. A TIA is a medical emergency. Get help right away, even if your symptoms go away. A TIA does not cause lasting damage to the brain. Having a TIA is a sign that you may be at risk for a stroke. Lifestyle changes and medical treatments can help prevent a stroke. This information is not intended to replace advice given to you by your health care provider. Make sure you discuss any questions you have with your health care provider. Document Released: 12/17/2008 Document Revised: 12/04/2018 Document Reviewed: 06/11/2017 [employer] Patient Education [employer]. Follow Up Care 08/20/2023 19:57:49 With:[facility]vana [facility]azarPh[facility]ips [facility] [facility] Address: [address] [place] [id number]- [phone] When:08/28/2023 10:15:00 Comments:This is your post-hospital appointment. Follow-up as scheduled. [facility] 05-30-2024 Evaluation + Plan noteExtracted from: Title:History and Physical Author:ESTRADA BEGUM APRN-TELEVISION CABINET FINISHER Date:08/21/23 1. Stroke-like symptoms Acute, new onset yesterday evening of left-sided weakness, left facial droop and left numbness/tingling. CT of head and CTA head/neck unremarkable. Telestroke recommended admission for MRI of the brain and echocardiogram with bubble study. Patient to be monitored on telemetry while admitted. Order placed for 30-day event monitor. Continue aspirin 81 mg PO daily and plavix 75 mg PO daily for 21 days. Start atorvastatin 40 mg PO daily. Check lipid profile and HgbA1c in am. Repeat CBC and BMP in the am. 2. Myocardial infarct Remote history at age 27. Troponin negative and EKG unremarkable. Patient denies any chest pain. 3. Rheumatoid arthritis Chronic. Takes Tylenol extra strength PRN for pain. DVT prophylaxis with Lovenox sc. Code status: Full Code. Labs, diagnostic test and progress notes reviewed as noted in HPI. Plan of care discussed with patient. All questions answered. Patient verbalizes understanding and is agreeable with plan of care. This case was discussed with collaborating physician, Dr. Jimmie Casiano. 75 minutes spent reviewing past diagnostic tests, reviewing lab results, vital sign trends, medical history, reviewing medications and ordering home medications, examining patient, discussed plan of care with nursing, clinical social work therapist and therapy, collaborating with physician, and documenting in chart. [facility] 05-30-2024 Note Discharge Instructions Thank you for allowing [facility] to assist you with your healthcare needs. The following is importantdischarge information regarding your hospital visit. Your Care Team Estrada Begum TELEVISION CABINET FINISHER Your Diagnosis Myocardial infarct Rheumatoid arthritis Stroke-like symptoms What to do next Instructions From Your Doctor You were admitted due to left facial droop and left-sided weakness concerning for stroke. You had aCT of the head and CTA of the head and neck and those were completely unremarkable. The CTA of the neck did mention a number of cavities in your teeth so it would be a good idea to be [facility] exam now that you are getting established over there. We sent you for an MRI of the brain today and it was completely unremarkable. Echocardiogram was done also and this was also completely normal. Another possible cause of stroke/TIA is a cardiac arrhythmia so we placedan order for a 30-day holter monitor. This will be sent to your house with instructions for wearingit. You will be contacted if any cardiac abnormalities are detected. Telestroke recommended that you start taking a baby aspirin daily as well as plavix (clopidogrel) 75 mg oral daily for 21 days. After the 21 days, you will only take the baby aspirin daily. They also recommended that you take a cholesterol- lowering medication so we started you on atorvastatin 40 mg oral daily. A prescription will be sent in to your pharmacy for these medications. You have been scheduled in with [facility] for a visit next week to get established. They can order outpatient PT and OT for you if needed. If you have any new or worsening symptoms, please return to the ED. Follow Up Appointments Follow Up with [facility] When:08/28/2023 10:15 AM EDT Where:[address] [place] [address]- [phone] Additional Information: This is your post-hospital appointment. Follow-up as scheduled. The Following Activity and Diet Have Been Ordered for You Discharge Activity - Ordered -- Resume your pre-hospitalization activity, 08/21/23 13:44:00 EDT Discharge Diet - Ordered -- No changes were made to your diet during your hospital stay. Please resume your pre hospitalization diet on discharge., 08/21/23 13:44:00 EDT The Following Treatments Have Been Ordered for You Discharge Labs No qualifying data available. Discharge Radiology No qualifying data available. Other Therapies Discharge Event Monitor Instructions - Ordered -- 08/21/23 8:42:54 EDT, You have been ordered mobile outpatient telemetry. You should receive a device in the mail with further instructions. If you have not received a device within 7 days after discharge, please call [facility] at [phone]. Post Acute Orders No qualifying data available. Allergies codeine(Severe) Swelling of throat, Hives Latex Vicodin Hives lidocaine naproxen Medications Please ask your primary doctor or pharmacist before taking any other medication not listed, including over the counter drugs, herbal medications, vitamins and or supplements as they may interact withyour home medications. What How Much When Instructions Last Dose New atorvastatin (atorvastatin 80 mg oral tablet) 1 tab(s) by mouth Once a day Pickup at [facility] #[id number] New clopidogrel (Plavix 75 mg oral tablet) 1 tab(s) by mouth Once a day Take for 21 days total and then stop. Pickup at [facility] #[id number] Unchanged acetaminophen (Tylenol Extra Strength 500 mg oral tablet) 2 tab(s) by mouth Every 4 hours as needed for as needed for pain Unchanged aspirin (aspirin 81 mg oral tablet, chewable) 1 tab(s) by mouth Once a day with a meal Duration: 30 Days Pickup at [facility] #[id number] Unchanged cyclobenzaprine (Flexeril use cyclobenzaprine ) by mouth As needed for Muscle spasm Pharmacy Information [facility] #[id number]: [address], [place] [id number] [phone] What How Much When Why Comments Stop Taking dicyclomine (Bentyl use dicyclomine ) 20 Milligram by mouth Four (4) times a day Duration: 7 Days Stop Taking dicyclomine (dicyclomine 10 mg oral capsule) 1 cap by mouth Four (4) times a day Duration: 5 Days Stop Taking dicyclomine (dicyclomine 20 mg oral tablet) 1 tab(s) by mouth Four (4) times a day as needed for abdominal discomfort Diarrhea and vomiting Gastroenteritis Duration: 3 Days Stop Taking famotidine (Pepcid 20 mg oral tablet) 1 tab(s) by mouth Two (2) times a day Stop Taking metroNIDAZOLE (metroNIDAZOLE 500 mg oral tablet) 1 tab(s) by mouth Every 8 hours Lower GI bleeding Duration: 5 Days Stop Taking omeprazole (omeprazole 20 mg oral delayed release capsule) 1 cap by mouth Once a day Please take this list to your next doctor s visit. Bring all medications you take, including over the counter medications, herbals and other supplements with you to your doctor s visit. Patients and families are reminded to discard old lists and to update any records with all medication providers or retail pharmacies. Medication Leaflets aspirin (oral) ( pir in) Aspi-Cor, Saran Plus, Durlaza, Ecotrin, Miniprin, Vazalore What is the most important information I should know about aspirin? Aspirin can cause Genesis's syndrome, a serious and sometimes fatal condition in children. What is aspirin? Aspirin is a salicylate (bu-GYP-bs-ate) that is used to treat pain, and reduce fever or inflammation. Aspirin is sometimes used to treat or prevent heart attacks, strokes, and chest pain (angina). Aspirin should be used for these conditions only under the supervision of a doctor. Aspirin may also be used for purposes not listed in this medication guide. What should I discuss with my healthcare provider before taking aspirin? Using aspirin in a child or teenager with flu symptoms or chickenpox can cause a serious or fatal condition called Genesis's syndrome. You should not use aspirin if you are allergic to it, or if you have: a recent history of stomach or intestinal bleeding; a bleeding disorder such as hemophilia; or if you have ever had an asthma attack or severe allergic reaction after taking aspirin or an NSAID (non-steroidal anti-inflammatory drug). Tell your doctor if you have ever had: asthma or seasonal allergies; stomach ulcers; liver disease; kidney disease; a bleeding or blood clotting disorder; gout; or heart disease, high blood pressure, or congestive heart failure. Taking aspirin during late may cause bleeding in the mother or the baby during delivery. Tell your doctor if you are or plan to become . You should not breastfeed while using this medicine. How should I take aspirin? Use exactly as directed on the label, or as prescribed by your doctor. Always follow directions on the medicine label about giving aspirin to a child. Take with food if aspirin upsets your stomach. You must chew the chewable tablet before you swallow it. Do not crush, chew, break, or open an enteric-coated or delayed/extended-release pill. Swallow it whole. Tell your doctor if you have a planned surgery. Store at room temperature away from moisture and heat. Do not use aspirin if you smell a strong vinegar odor in the aspirin bottle. The medicine may no longer be effective. What happens if I miss a dose? Aspirin is used when needed. If you are on a dosing schedule, skip any missed dose. Do not use two doses at one time. What happens if I overdose? Seek emergency medical attention or call the Poison Help line at . Overdose may cause stomach pain, vomiting, diarrhea, vision or hearing problems, fast or slow breathing, or confusion. What should I avoid while taking aspirin? Avoid alcohol. Heavy drinking can increase your risk of stomach bleeding. Avoid taking ibuprofen if you take aspirin to prevent stroke or heart attack. Ibuprofen can make aspirin less effective in protecting your heart and blood vessels. Ask your doctor how far apart your doses should be. Ask a doctor or pharmacist before using other medicines for pain, fever, swelling, or cold/flu symptoms. They may contain ingredients similar to aspirin (such as magnesium salicylate, ibuprofen, ketoprofen, or naproxen). What are the possible side effects of aspirin? Get emergency medical help if you have signs of an allergic reaction: hives; difficult breathing; swelling of your face, lips, tongue, or throat. Stop using aspirin and call your doctor at once if you have: ringing in your ears, confusion, hallucinations, rapid breathing, seizure (convulsions); severe nausea, vomiting, or stomach pain; bloody or tarry stools, coughing up blood or vomit that looks like coffee grounds; fever lasting longer than 3 days; or swelling, or pain lasting longer than 10 days. Common side effects may include: upset stomach, heartburn; drowsiness; or mild headache. This is not a complete list of side effects and others may occur. Call your doctor for medical advice about side effects. You may report side effects to FDA at 3-977-VBC-1262. What other drugs will affect aspirin? Ask your doctor before using aspirin if you take an antidepressant. Taking certain antidepressants with aspirin may cause you to bruise or bleed easily. Ask a doctor or pharmacist before using aspirin with any other medications, especially: a blood thinner (warfarin, Coumadin, Jantoven), or other medication used to prevent blood clots; or other salicylates such as Nuprin Backache Caplet, Kaopectate, KneeRelief, Pamprin Cramp Formula, Pepto-Bismol, Tricosal, Trilisate, and others. This list is not complete. Other drugs may affect aspirin, including prescription and mblu-bes-dpalmco medicines, vitamins, and herbal products. Not all possible drug interactions are listed here. Where can I get more information? Your pharmacist can provide more information about aspirin. Remember, keep this and all other medicines out of the reach of children, never share your medicines with others, and use this medication only for the indication prescribed. Every effort has been made to ensure that the information provided by [employer]. ('[employer]') is accurate, up-to-date, and complete, but no guarantee is made to that effect. Drug information contained herein may be time sensitive. [employer] information has been compiled for use by healthcare practitioners and consumers in the [place] and therefore [employer] does not warrant that uses outside of the [place] are appropriate, unless specifically indicated otherwise. [employer] drug information does not endorse drugs, diagnose patients or recommend therapy. [employer] drug information isan informational resource designed to assist licensed healthcare practitioners in caring for their p atients and/or to serve consumers viewing this service as a supplement to, and not a substitute for, the expertise, skill, knowledge and judgment of healthcare practitioners. The absence of a warningfor a given drug or drug combination in no way should be construed to indicate that the drug or drug combination is safe, effective or appropriate for any given patient. [employer] does not assume any responsibility for any aspect of healthcare administered with the aid of information [employer] provides. The information contained herein is not intended to cover all possible uses, directions, precautions, warnings, drug interactions, allergic reactions, or adverse effects. If you have questions about the drugs you are taking, check with your doctor, nurse or pharmacist. Copyright 7085-8913 [employer]. Version: 18.. Revision Date: 10/14/2022. atorvastatin (a TOR va sta tin) Atorvaliq, Lipitor What is the most important information I should know about atorvastatin? You should not take atorvastatin if you have liver disease or cirrhosis. Atorvastatin can cause the breakdown of muscle tissue, which can lead to kidney failure. Call your doctor right away if you have unexplained muscle pain, tenderness, or weakness especially if you also have fever, unusual tiredness, or dark urine. What is atorvastatin? Atorvastatin is used together with diet to lower blood levels of 'bad' cholesterol (low-density lipoprotein, or LDL), to increase levels of 'good' cholesterol (high-density lipoprotein, or HDL), and to lower triglycerides (a type of fat in the blood). Atorvastatin is used to lower the risk of stroke, heart attack, or other heart complications in adults with or without type 2 diabetes or heart disease or other risk factors. Atorvastatin is also used alone, or along with diet, or with other cholesterol- lowering medicationsin adults and children aged 10 years and older with an inherited condition that causes high levels of bad cholesterol. Atorvastatin may also be used for purposes not listed in this medication guide. What should I discuss with my healthcare provider before taking atorvastatin? You should not use atorvastatin if you are allergic to it, or if you have liver failure or cirrhosis. Tell your doctor if you have or have ever had: muscle pain or weakness; diabetes; stroke; a thyroid disorder; a habit of drinking more than 2 alcoholic beverages per day; or kidney disease. Atorvastatin can cause the breakdown of muscle tissue, which can lead to kidney failure. This happens more often in women, in older adults, or people who have kidney disease or poorly controlled hypothyroidism (underactive thyroid). Atorvastatin may harm an unborn baby. Tell your doctor if you are . Ask a doctor if it is safe to breastfeed while using this medicine. How should I take atorvastatin? Follow all directions on your prescription label and read all medication guides or instruction sheets. Your doctor may occasionally change your dose. Use the medicine exactly as directed. Do not change your dose or stop taking any of your medications without your doctor's advice. Atorvastatin is usually taken once per day. Follow your doctor's instructions. You may take atorvastatin tablet with or without food. Take atorvastatin liquid medicine on an empty stomach, at least 1 hour before a meal or 2 hours after a meal. It may take up to 2 weeks before your cholesterol levels improve, and you may need frequent blood tests. Even if you have no symptoms, tests can help your doctor determine if this medicine is effective. Shake the oral suspension (liquid). Measure a dose with the supplied measuring device (not a kitchen spoon). Your treatment may also include diet, exercise, weight control, and blood tests. Store at room temperature away from moisture, heat, and light. Throw away in the trash any unused liquid 60 days after opening the bottle. What happens if I miss a dose? Take the medicine as soon as you can, but skip the missed dose if you are more than 12 hours late for the dose. Do not take two doses at one time. What happens if I overdose? Seek emergency medical attention or call the Poison Help line at . What should I avoid while taking atorvastatin? Avoid eating foods high in fat or cholesterol, or atorvastatin will not be as effective. Drinking alcohol may increase your risk of liver damage. Grapefruit may interact with atorvastatin and cause side effects. Avoid consuming grapefruit products and drinking more than 1.2 liters of grapefruit juice each day. What are the possible side effects of atorvastatin? Get emergency medical help if you have signs of an allergic reaction (hives, difficult breathing, swelling in your face or throat) or a severe skin reaction (fever, sore throat, burning eyes, skin pain, red or purple skin rash with blistering and peeling). Atorvastatin can cause the breakdown of muscle tissue, which can lead to kidney failure. Call your doctor right away if you have unexplained muscle pain, tenderness, or weakness especially if you also have fever, unusual tiredness, or dark urine. Muscle problems may be more likely in older adults and those who have kidney problems, thyroid problems, or take certain other medicines. Also call your doctor at once if you have: muscle weakness in your hips, shoulders, neck, and back; trouble lifting your arms, trouble climbing or standing; liver problems--loss of appetite, stomach pain (upper right side), tiredness, itching, dark urine, jose l-colored stools, jaundice (yellowing of the skin or eyes); kidney problems--swelling, urinating less, feeling tired or short of breath; or high blood sugar--increased thirst, increased urination, dry mouth, fruity breath odor. Common side effects may include: pain in your bones, spine, joints, or muscles; pain and burning when you urinate, painful urination; muscle spasms; upset stomach; trouble sleeping; stuffy nose, runny nose, sore throat; diarrhea, nausea; or pain in your arms or legs. This is not a complete list of side effects and others may occur. Call your doctor for medical advice about side effects. You may report side effects to FDA at 8-719-WXI-3947. What other drugs will affect atorvastatin? Sometimes it is not safe to use certain medicines at the same time. Some drugs can affect your blood levels of other drugs you use, which can increase risk of serious muscle problems or make the medicines less effective. Tell your doctor about all your current medicines. Many drugs can affect atorvastatin, especially: other cholesterol lowering medicine--gemfibrozil, niacin, fenofibrate, fenofibric acid, and others; colchicine; antibiotic or antifungal medicine--rifampin, erythromycin, clarithromycin, itraconazole, ketoconazole, posaconazole, and voriconazole; control pills; medicine to prevent organ transplant rejection; or antiviral medicine to treat hepatitis C or HIV. This list is not complete and many other drugs may affect atorvastatin. This includes prescription and zwku-qhx-[id number] medicines, vitamins, and herbal products. Not all possible drug interactions are listed here. Where can I get more information? Your doctor or pharmacist can provide more information about atorvastatin. Remember, keep this and all other medicines out of the reach of children, never share your medicines with others, and use this medication only for the indication prescribed. Every effort has been made to ensure that the information provided by [employer]. ('[employer]') is accurate, up-to-date, and complete, but no guarantee is made to that effect. Drug information contained herein may be time sensitive. [employer] information has been compiled for use by healthcare practitioners and consumers in the [place] and therefore [employer] does not warrant that uses outside of the [place] are appropriate, unless specifically indicated otherwise. [employer] drug information does not endorse drugs, diagnose patients or recommend therapy. [employer] drug information isan informational resource designed to assist licensed healthcare practitioners in caring for their p atients and/or to serve consumers viewing this service as a supplement to, and not a substitute for, the expertise, skill, knowledge and judgment of healthcare practitioners. The absence of a warningfor a given drug or drug combination in no way should be construed to indicate that the drug or drug combination is safe, effective or appropriate for any given patient. [employer] does not assume any responsibility for any aspect of healthcare administered with the aid of information [employer] provides. The information contained herein is not intended to cover all possible uses, directions, precautions, warnings, drug interactions, allergic reactions, or adverse effects. If you have questions about the drugs you are taking, check with your doctor, nurse or pharmacist. Copyright 4374-6209 [employer]. Version: 23.02. Revision Date: 09/12/2022. clopidogrel (kloe PID oh grel) Plavix What is the most important information I should know about clopidogrel? You should not use this medicine if you have any active bleeding such as a stomach ulcer or bleeding in the brain. Clopidogrel increases your risk of bleeding, which can be severe or life- threatening. Call your doctor or seek emergency medical attention if you have bleeding that will not stop, if you have blood in your urine, black or bloody stools, or if you cough up blood or vomit that looks like coffee grounds. Do not stop taking clopidogrel without first talking to your doctor, even if you have signs of bleeding. Stopping clopidogrel may increase your risk of a heart attack or stroke. What is clopidogrel? Clopidogrel is used to lower your risk of having a stroke, blood clot, or serious heart problem after you've had a heart attack, severe chest pain (angina), or circulation problems. Clopidogrel may also be used for purposes not listed in this medication guide. What should I discuss with my healthcare provider before taking clopidogrel? You should not use clopidogrel if you are allergic to it, or if you have: any active bleeding; or a stomach ulcer or bleeding in the brain (such as from a head injury). Tell your doctor if you have ever had: an ulcer in your stomach or intestines; or a bleeding disorder or blood clotting disorder. Clopidogrel may not work as well if you have certain genetic factors that affect the breakdown of this medicine in your body. Your doctor may perform a blood test to make sure clopidogrel is right for you. This medicine is not expected to harm an unborn baby. However, taking clopidogrel within 1 week before childbirth can cause bleeding in the mother. Tell your doctor if you are or plan to become . You should not breastfeed while using this medicine. How should I take clopidogrel? Follow all directions on your prescription label and read all medication guides or instruction sheets. Use these medicines exactly as directed. Clopidogrel can be taken with or without food. Clopidogrel is sometimes taken together with aspirin. Take aspirin only if your doctor tells you to. Clopidogrel keeps your blood from coagulating (clotting) and can make it easier for you to bleed, even from a minor injury. Contact your doctor or seek emergency medical attention if you have any bleeding that will not stop. You may need to stop using clopidogrel for a short time before a surgery, medical procedure, or dental work. Any healthcare provider who treats you should know that you are taking clopidogrel. Do not stop taking clopidogrel without first talking to your doctor, even if you have signs of bleeding. Stopping the medicine could increase your risk of a heart attack or stroke. Store at room temperature away from moisture and heat. What happens if I miss a dose? Take the medicine as soon as you can, but skip the missed dose if it is almost time for your next dose. Do not take two doses at one time. What happens if I overdose? Seek emergency medical attention or call the Poison Help line at . Overdose can causeexcessive bleeding. What should I avoid while taking clopidogrel? Avoid alcohol. It can increase your risk of stomach bleeding. Avoid activities that may increase your risk of bleeding or injury. Use extra care to prevent bleeding while shaving or brushing your teeth. If you also take aspirin: Ask a doctor or pharmacist before using medicines for pain, fever, swelling, or cold/flu symptoms. They may contain ingredients similar to aspirin (such as salicylates, ibuprofen, ketoprofen, or naproxen). Taking these products together can increase your risk of bleeding. What are the possible side effects of clopidogrel? Get emergency medical help if you have signs of an allergic reaction: hives; difficult breathing; swelling of your face, lips, tongue, or throat. Clopidogrel increases your risk of bleeding, which can be severe or life- threatening. Call your doctor or seek emergency medical attention if you have bleeding that will not stop, if you have blood in your urine, black or bloody stools, or if you cough up blood or vomit that looks like coffee grounds. Also call your doctor at once if you have: nosebleeds, pale skin, easy bruising, purple spots under your skin or in your mouth; jaundice (yellowing of your skin or eyes); fast heartbeats, shortness of breath; headache, fever, weakness, feeling tired; little or no urination; a seizure; low blood sugar--headache, hunger, sweating, irritability, dizziness, fast heart rate, and feeling anxious or shaky; or signs of a blood clot--sudden numbness or weakness, confusion, problems with vision or speech. Common side effects may include: bleeding. This is not a complete list of side effects and others may occur. Call your doctor for medical advice about side effects. You may report side effects to FDA at 6-352-CWD-3323. What other drugs will affect clopidogrel? Sometimes it is not safe to use certain medications at the same time. Some drugs can affect your blood levels of other drugs you take, which may increase side effects or make the medications less effective. Tell your doctor about all your other medicines, especially: a stomach acid senior paralegal such as omeprazole, Nexium, or Prilosec; an antidepressant such as citalopram, fluoxetine, sertraline, Cymbalta, Effexor, Lexapro, Pristiq, or Prozac; rifampin; a blood thinner--warfarin, Coumadin, Jantoven; or NSAIDs (nonsteroidal anti-inflammatory drugs)--aspirin, ibuprofen (Advil, Motrin), naproxen (Aleve), celecoxib, diclofenac, indomethacin, meloxicam, and others. This list is not complete. Other drugs may affect clopidogrel, including prescription and glrz-cca-zrdvqzm medicines, vitamins, and herbal products. Not all possible drug interactions are listed here. Where can I get more information? Your pharmacist can provide more information about clopidogrel. Remember, keep this and all other medicines out of the reach of children, never share your medicines with others, and use this medication only for the indication prescribed. Every effort has been made to ensure that the information provided by [employer]. ('[employer]') is accurate, up-to-date, and complete, but no guarantee is made to that effect. Drug information contained herein may be time sensitive. [employer] information has been compiled for use by healthcare practitioners and consumers in the [place] and therefore [employer] does not warrant that uses outside of the [place] are appropriate, unless specifically indicated otherwise. [employer] drug information does not endorse drugs, diagnose patients or recommend therapy. [employer] drug information isan informational resource designed to assist licensed healthcare practitioners in caring for their p atients and/or to serve consumers viewing this service as a supplement to, and not a substitute for, the expertise, skill, knowledge and judgment of healthcare practitioners. The absence of a warningfor a given drug or drug combination in no way should be construed to indicate that the drug or drug combination is safe, effective or appropriate for any given patient. [employer] does not assume any responsibility for any aspect of healthcare administered with the aid of information [employer] provides. The information contained herein is not intended to cover all possible uses, directions, precautions, warnings, drug interactions, allergic reactions, or adverse effects. If you have questions about the drugs you are taking, check with your doctor, nurse or pharmacist. Copyright 4795-3003 [employer]. Version: 18.01. Revision Date: 06/21/2020. Education Materials Transient Ischemic Attack A transient ischemic attack (TIA) is a warning stroke that causes stroke-like symptoms that go away quickly. A TIA does not cause lasting damage to the brain. But having a TIA is a sign that you may be at risk for a stroke. Lifestyle changes and medical treatments can help prevent a stroke. It is important to know the symptoms of a TIA and what to do. Get help right away, even if your symptoms go away. The symptoms of a TIA are the same as those of a stroke. They can happen fast, and they usually go away within minutes or hours. They can include: Weakness or loss of feeling in your face, arm, or leg. This often happens on one side of your body. Trouble walking. Trouble moving your arms or legs. Trouble talking or understanding what people are saying. Trouble seeing. Seeing two of one object (double vision). Feeling dizzy. Feeling confused. Loss of balance or coordination. Feeling sick to your stomach (nauseous) and throwing up (vomiting). A very bad headache for no reason. What increases the risk? Certain things may make you more likely to have a TIA. Some of these are things that you can change, such as: Being very overweight (obese). Using products that contain nicotine or tobacco, such as cigarettes and e-cigarettes. Taking control pills. Not being active. Drinking too much alcohol. Using drugs. Other risk factors include: Having an irregular heartbeat (atrial fibrillation). Being or . Having had blood clots, stroke, TIA, or heart attack in the past. Being a woman with a history of high blood pressure in (preeclampsia). Being over the age of 60. Being male. Having family history of stroke. Having the following diseases or conditions: ? High blood pressure. ? High cholesterol. ? Diabetes. ? Heart disease. ? Sickle cell disease. ? Sleep apnea. ? Migraine headache. ? Long-term (chronic) diseases that cause soreness and swelling (inflammation). ? Disorders that affect how your blood clots. Follow these instructions at home: Medicines Take pwby-nuj-jzlhkuf and prescription medicines only as told by your doctor. If you were told to take aspirin or another medicine to thin your blood, take it exactly as told byyour doctor. ? Taking too much of the medicine can cause bleeding. ? Taking too little of the medicine may not work to treat the problem. Eating and drinking Eat 5 or more servings of fruits and vegetables each day. Follow instructions from your doctor about your diet. You may need to follow a certain diet to helplower your risk of having a stroke. You may need to: ? Eat a diet that is low in fat and salt. ? Eat foods that contain a lot of fiber. ? Limit the amount of carbohydrates and sugar in your diet. Limit alcohol intake to 1 drink a day for non women and 2 drinks a day for men. One drink equals 12 oz of beer, 5 oz of wine, or 1 oz of hard liquor. General instructions Keep a healthy weight. Stay active. Try to get at least 30 minutes of activity on all or most days. Find out if you have a condition called sleep apnea. Get treatment if needed. Do not use any products that contain nicotine or tobacco, such as cigarettes and e-cigarettes. If you need help quitting, ask your doctor. Do not abuse drugs. Keep all follow-up visits as told by your doctor. This is important. Get help right away if: You have any signs of stroke. BE FAST is an easy way to remember the main warning signs: ? B - Balance. Signs are dizziness, sudden trouble walking, or loss of balance. ? E - Eyes. Signs are trouble seeing or a sudden change in how you see. ? F - Face. Signs are sudden weakness or loss of feeling of the face, or the face or eyelid drooping on one side. ? A - Arms. Signs are weakness or loss of feeling in an arm. This happens suddenly and usually on oneside of the body. ? S - Speech. Signs are sudden trouble speaking, slurred speech, or trouble understanding what peoplesay. ? T - Time. Time to call emergency services. Write down what time symptoms started. You have other signs of stroke, such as: ? A sudden, very bad headache with no known cause. ? Feeling sick to your stomach (nausea). ? Throwing up (vomiting). ? Jerky movements that you cannot control (seizure). These symptoms may be an emergency. Do not wait to see if the symptoms will go away. Get medical help right away. Call your local emergency services (911 in the [place] Do not drive yourself to the hospital. Summary A transient ischemic attack (TIA) is a warning stroke that causes stroke-like symptoms that go away quickly. A TIA is a medical emergency. Get help right away, even if your symptoms go away. A TIA does not cause lasting damage to the brain. Having a TIA is a sign that you may be at risk for a stroke. Lifestyle changes and medical treatments can help prevent a stroke. This information is not intended to replace advice given to you by your health care provider. Make sure you discuss any questions you have with your health care provider. Document Released: 12/17/2008 Document Revised: 12/04/2018 Document Reviewed: 06/11/2017 [employer] Patient Education 2020 [employer] Additional Information VACCINATE! IT SAVES LIVES! Members of the community who have not yet received the COVID-19 vaccine and would like to receive it can visit one of [facility] vaccine clinics. There are many vaccine clinic locations within the [facility]. For locations and available times, please visit [email or web address].[place].gov/. It is important to note that some COVID mobile vaccine clinics are held outdoors and may be canceled in rainy or stormy conditions. To learn more about pediatric vaccinations (ages 5-11), we invite you to visit the [employer] [facility] webpage. [email or web address]/[email or web address]-[email or web address]-Uiwvmcancs-Fuotk-[email or web address] stions.htmlTo learn more about the COVID-19 vaccine, we invite you to visit the CDC website for a list of frequently asked questions.https://www.cdc.gov/coronavirus/2019-ncov/vaccines/faq.html [facility] Patient Portal Access Instructions: Stay connected with your healthcare team and access your personal medical information anytime with the [facility] Patient Portal. Please follow the directions below to create your [facility] account: 1.Access the email account you provided upon registration to the hospital/physician office.2.Look for an invitation email from [facility].3.Open the email and access the invitation link: AcceptInvitation to [email or web address].4.Fill in the required baugh to create your account. To access your account, visit [employer] [facility]adaOne[facility]. Click the blue button labeled Access Patient Portal and then log in with the username and password that you created in the steps above. You will be able to view your test results, lab results, a summary of your visits, upcoming appointments and more. There is also a convenient messaging option where you can send secure messages to your p rovider. In addition, you will have the ability to download any documents or summaries to your computer and/or send the information securely to a physician. Remember that your healthcare information is confidential, so carefully consider who you will allowto register on the [facility] Patient Portal for access to your information. You can also access the [facility] One[facility] Patient Portal on the [employer] priscila. Simply click on Patient Portal and then log into your account. If you would like to receive a full copy of your medical records, please contact the [facility] Medical Records Department by calling [phone], Friday through Friday between 8 a.m. and 4:30 p.m. HOW TO SAFELY DISPOSE OF PRESCRIPTION MEDICATIONS Please use one of the following methods to safely dispose of your unused medications. 1.Use a drug disposal kit: the drug disposal pouch allows you to safely discard your old and unuseddrugs. Ask your nurse to give you one when you are discharged.2.Visit a local take-back location: Many local pharmacies and police departments have programs that collect old and unwanted prescriptiondrugs. Call your local pharmacy or go to http://MMIS.[employer]/0Z7Hr4h to find one close to you.3.Make use of household items: Use cat litter or old coffee grounds to dispose medications if other options arenot available. Mix your drugs with these household products, seal them in an airtight container andthrow it into the garbage. Call [facility]: [phone] to be sure your drugs can be disposed of in this way. Some medicines may require a different approach.4.Never flush your medications down the toilet. IF YOU HAVE BEEN PRESCRIBED AN OPIOID FOR PAIN If you have been prescribed an opioid (such as hydrocodone, oxycodone or morphine), it is critical to understand the possible side effects and risks of opioid pain medications. Even when taken as directed, opioids can have several side effects including: Tolerance, meaning you might need to take more of a medication for the same pain relief. Nausea, vomiting and/or constipation. Sleepiness, dizziness, dry mouth, confusion, depression or itching. Physical dependence, meaning you have withdrawal symptoms when a medication is stopped, can develop within a few days. KNOW YOUR RESPONSIBILITIES It is important to know exactly how much and how often to take the opioid pain medications you are prescribed. Never take opioids in higher amounts or more often than prescribed. Do not combine opioids with alcohol or other drugs that cause drowsiness, such as benzodiazepines, also known as benzos, including diazepam and alprazolam, muscle relaxants or sleep aids. Never sell or share prescription opioids. This is illegal. Store opioids in a secure place and out of reach of others (including children, family, friends and visitors). The last page of this document has been signed and retained as a CHART COPY. Signatures Patient Education Materials Transient Ischemic Attack, Qnrk-sg-Xtwc Medication Leaflets aspirin (oral), atorvastatin, clopidogrel My discharge plan and instructions have been reviewed and explained to me and I,BARRETT LOPEZ understand my current condition and have read and understand these discharge instructions. I have received a written copy of the plan/instructions. If I have questions, I am aware that I should contact my doctor. Patient/Hr Director Signature: Date/Time: Relationship to Patient: Witness Name/Signature: Date/Time: [facility]05-30-2024 Note* Exam Date Time Procedure Performing Provider Status 08/21/23 10:25 AM Echocardiogram, Adul t with Bubble Study- Auth (Verified) [facility] 05-30-2024 Note ORIGINAL HISTORY: TIA COMPARISON: 29 December 2021 TECHNIQUE: 1. Sagittal T1-weighted images. 2. Axial T2-weighted and T2*-weighted images. 3. Axial FLAIR images. 4. Axial diffusion-weighted images with ADC map. FINDINGS: The study is mildly degraded by motion. The ventricles and sulci are normal in size and configuration. There are no abnormal intra or extra-axial fluid collections. There are a few scattered punctate T2 hyperintensities in the cerebral white matter; cai-white matter differentiation is maintained. There is no abnormal restriction of diffusion. The orbital contents are normal in appearance. The paranasal sinuses are clear. IMPRESSION: Unremarkable examination. Interpreted by: Tanya Rocha MD Preliminary Report By: Tanya Rocha MD Electronically signed By Tanya Rocha MD Dictated Date: 08/21/2023 10:45:26 AM Prelim Date: 08/21/2023 10:46:47 AM Sign Date: 08/21/2023 10:46:47 AM [facility] Date of Service 08/21/2023 Chief Complaint c/o left sided facial drooping since right before arrival. C/o left hand tingling since this am History of Present Illness Patient is a 48-year-old male, who has no primary care provider and a past medical history significant for CVA, myocardial infarction, rheumatoid arthritis, hypertension, nephrectomy, and diverticulitis, presented to [facility] emergency department with the chief complaint of left facial drooping and left hand numbness/tingling. Patient states that he was in his usual state of health yesterday and went outside to work on his motorcycle. At some point, while working on his motorcycle, he developed left-sided numbness, left facial droop and left arm weakness. He at first stated that this was about 1950 last night but then added that his left arm had been weak throughout the dayyesterday. He was dropping things all day which is not normal for him. He also reports that he had a headache at the time and that he had blurry vision in both eyes accompanied by dizziness. He had aprevious stroke at age 27 and has residual speech deficits from that. He also reports that he is unable to walk. He denies any fever, chills, cough, shortness of breath, chest pain, abdominal pain, nausea or dysuria. In the emergency department, chest x-ray revealed no acute radiographic abnormality. CT of the headrevealed no acute intracranial hemorrhage or large vessel territory infarct. CTA of the head was unremarkable CTA of the head. CTA of the neck revealed no extracranial large vessel occlusion or hemodynamically significant stenosis. Small periapical lucency with cortical thinning involving the rightmandibular 2nd premolar. Additional multiple dental caries. EKG revealed sinus rhythm. White blood cell count 11.5. CBC otherwise was unremarkable. BMP unremarkable. Troponin negative. Patient was administered a 324 mg aspirin PO x 1 in the ED. Telestroke was activated in the ED who recommended admission for MRI of the brain w/o contrast and echocardiogram with bubble study. The case was discussed with the ED physician who conveyed this recommendation and patient was accepted by hospitalist service for admission. Patient was transferred to telemetry for observation. We will continue aspirin 81 mg PO daily and plavix 75 mg PO daily for 21 days. We will start atorvastatin 40 mg PO daily. We will send patient for MRI of the brain and echocardiogram today. We will consult PT and OT to evaluate and treat. Check lipid profile and HgbA1c in am. Repeat CBC and BMP in the am. Patient seen and evaluated this morning while resting in bed. He states that he is still unable to use his left arm much. He is able to lift it off the bed and hand grasps were slightly weaker on theleft. He smirks and, while the smirk is evident on the right, he does not necessarily have a left facial droop. The left side of his mouth seems to be unchanged. He is able to lift the left leg off th e bed for 5 seconds. He states he has been unable to get up all night. Patient advised that PT and OT will see patient this morning to evaluate him. His physical exam was unremarkable otherwise. Discussed plan of care with patient and he is agreeable to this plan. All questions answered. Review of Systems Review of Systems: Reviewed in detail, including general health, HEENT, cardiovascular, respiratory, gastrointestinal, genitourinary, endocrine, musculoskeletal, neurologic, vascular, skin, and psychiatric. All are negative except for those listed in the History of Present Illness. Physical Exam Vitals and Measurements T: 36.6 C (Oral) TMIN: 36.6 C (Oral) TMAX: 37.0 C (Oral) HR: 83 (Monitored) RR: 18 BP: 141/83 SpO2:95% HT: 170.2 cm WT: 138.1 kg BMI: 48.12 Weight Dosing Weight: 138.1 kg (08/20/23) Dosing Weight: 139.4 kg (08/20/23) General: No acute distress. Patient is alert and appropriate. Skin: No rash. Skin is warm, dry and intact. HEENT: Head is normocephalic, atraumatic. Pupils are equal, round and reactive. Neck: Supple. No lymphadenopathy, thyromegaly. Lungs: Bilaterally clear but diminished without crepitation or wheeze. Unlabored. Heart: Heart is regular rhythm, S1, S2. No murmurs, gallops or rubs. Abdomen: Abdomen is soft, nontender. Bowels sounds present in all quadrants. Extremities: No clubbing, cyanosis, or edema. Peripheral pulses palpable. No calf tenderness. Neurological: Patient is awake and alert to person, place and time. Following simple commands, moving all extremities. Hand grasp slightly weaker on left side. No left facial droop noted. Patient reports numbness/tingling in left arm but is able to lift arm off the bed. Lab Results 08/19 22:00 Protime: 11.4 PT International Ratio: 1.0 08/19 20:24 WBC: 11.5 H Hgb: 14.1 Hct: 40.7 L Platelet: 379 Neutrophil %: 64.3 Glucose Level: 99 Sodium Level: 141 Potassium Level: 3.9 BUN: 13 Creatinine Lvl (s): 0.92 Imaging Results and Diagnostics CT Angiography Head w/ Contrast Result Date: August 20, 2023 Verified By: JAN BLOCK DO CLINICAL STATEMENT: IMPRESSION: Unremarkable CTA of the head. Core team was used to relay negative findings to orderingprovider. CT Angiography Neck w/ Contrast Result Date: August 20, 2023 Verified By: JAN BLOCK DO CLINICAL STATEMENT: IMPRESSION: No extracranial large vessel occlusion or hemodynamically significant stenosis. Small periapical lucency with cortical thinning involving the right mandibular 2nd premolar. Additional multiple dental caries. Dental referral is recommended. I have personally reviewed the images of this ex amination and agree with the resident's findings and interpretation. XR Chest 1 View Result Date: August 20, 2023 Verified By: ELDON WATKINS MD CLINICAL STATEMENT: IMPRESSION: No acute radiographic abnormality. I have personally reviewed the images of this examination and agree with the resident's findings and interpretation. CT Head or Brain w/o Contrast Result Date: August 20, 2023 Verified By: JAN BLOCK DO CLINICAL STATEMENT: IMPRESSION: No acute intracranial hemorrhage or large vessel territory infarct. Critical results were called by Dr. Rudi Shepherd to [facility] on08/20/2023 at 20:27. I have personally reviewed the images of this examination and agree with the resident's findings and interpretation. Assessment/Plan 1. Stroke-like symptoms Acute, new onset yesterday evening of left-sided weakness, left facial droop and left numbness/tingling. CT of head and CTA head/neck unremarkable. Telestroke recommended admission for MRI of the brain and echocardiogram with bubble study. Patient to be monitored on telemetry while admitted. Order placed for 30-day event monitor. Continue aspirin 81 mg PO daily and plavix 75 mg PO daily for 21 days. Start atorvastatin 40 mg PO daily. Check lipid profile and HgbA1c in am. Repeat CBC and BMP in the am. 2. Myocardial infarct Remote history at age 27. Troponin negative and EKG unremarkable. Patient denies any chest pain. 3. Rheumatoid arthritis Chronic. Takes Tylenol extra strength PRN for pain. DVT prophylaxis with Lovenox sc. Code status: Full Code. Labs, diagnostic test and progress notes reviewed as noted in HPI. Plan of care discussed with patient. All questions answered. Patient verbalizes understanding and is agreeable with plan of care. This case was discussed with collaborating physician, Dr. Jimmie Casiano. 75 minutes spent reviewing past diagnostic tests, reviewing lab results, vital sign trends, medicalhistory, reviewing medications and ordering home medications, examining patient, discussed plan of care with nursing, clinical social work therapist and therapy, collaborating with physician, and documenting in chart. Problem List/Past Medical History Ongoing Abdominal pain Depression Diverticulitis History of stroke Hypertension Myocardial infarct Rheumatoid arthritis Historical Deviated septum Procedure/Surgical History Tendon: 2022 Nephrectomy: 09/21/17 Proctocolectomy: 04/24/17 History of tonsillectomy: 2004 Appendectomy: 2002 Cholecystectomy Medications Home Medications (9) Active aspirin 81 mg oral tablet, chewable 81 mg = 1 tab(s), Oral, qDayM Bentyl use dicyclomine 20 mg, Oral, QID dicyclomine 10 mg oral capsule 10 mg = 1 cap(s), Oral, QID dicyclomine 20 mg oral tablet 20 mg = 1 tab(s), PRN, Oral, QID Flexeril use cyclobenzaprine , PRN, Oral metroNIDAZOLE 500 mg oral tablet 500 mg = 1 tab(s), Oral, q8h omeprazole 20 mg oral delayed release capsule 20 mg = 1 cap(s), Oral, qDay Pepcid 20 mg oral tablet 20 mg = 1 tab(s), Oral, BID Tylenol Extra Strength 500 mg oral tablet 1,000 mg = 2 tab(s), PRN, Oral, q4h Allergies codeine(Severe) Swelling of throat, Hives Latex Vicodin Hives lidocaine naproxen Social History Smoking Status - 01/06/2018 Never smoker Alcohol - Denies Alcohol Use, 10/31/2016 Use: Never., 06/21/2018 Home/Environment Living situation: Home/Independent. OTher risks in environment: Pets/Animal exposure. Lives In: Apartment, 2nd floor bedroom, 2nd floor bathroom. Current Home Treatments None. Professional Skilled Services or Special Community Resources None., 08/20/2023 Nutrition/Health Type of diet: Regular. Appetite Good. Eating Difficulties None., 04/08/2022 Substance Abuse - Denies Substance Abuse, 10/31/2016 Use: Never., 06/21/2018 Tobacco - Denies Tobacco Use, 03/24/2018 Nicotine Use: Never (less than 100 in lifetime)., 08/20/2023 Family History Cancer: Mother. Diabetes mellitus: Mother, Sister and Brother. HTN - Hypertension: Mother. Heart disease: Mother. Mental illness: Mother. Health Status Family Member(s) Immunizations tetanus/diphth/pertuss (Tdap) adult/adol: 0.5 mL (03/23/19) Code Status Code Status - Ordered -- 08/20/23 22:20:00 EDT, Full Code, Constant Order Digitally Signed by ESTRADA BEGUM on 08/21/2023 11:41 AM [facility]05-29-2024 Note ORIGINAL EXAMINATION: ONE XRAY VIEW OF THE CHEST 08/20/2023 9:29 pm COMPARISON: Chest x-ray 06/08/2023 HISTORY: ORDERING SYSTEM PROVIDED HISTORY: Reason for Exam: chest pain/SOB FINDINGS: Cardiomediastinal contours stable. No focal consolidation or pulmonary edema. No pneumothorax or pleural effusion. No acute osseous abnormality. IMPRESSION: No acute radiographic abnormality. I have personally reviewed the images of this examination and agree with the resident's findings and interpretation. Interpreted by: Eldon Watkins MD Preliminary Report By: Rudi Shepherd Electronically signed By Eldon Watkins MD Dictated Date: 08/20/2023 9:29:44 PM Prelim Date: 08/20/2023 9:30:53 PM Sign Date: 08/20/2023 9:46:39 PM [facility] Note ORIGINAL EXAMINATION: CTA OF THE NECK 08/20/2023 9:38 pm TECHNIQUE: CTA of the neck was performed with the administration of intravenous contrast. Multiplanar reformatted images are provided for review. MIP images are provided for review. Stenosis of the internal carotid arteries measured using NASCET criteria. Automated exposure control, iterative reconstruction, and/or weight based adjustment of the mA/kV was utilized to reduce the radiation dose to as low as reasonably achievable. COMPARISON: CTA neck 08/24/2021 HISTORY: ORDERING SYSTEM PROVIDED HISTORY: Reason for Exam: Stroke Emergency FINDINGS: AORTIC ARCH/ARCH VESSELS: 2 vessel arch. No dissection or arterial injury. No significant stenosis of the brachiocephalic or subclavian arteries. CAROTID ARTERIES: No dissection, arterial injury, or hemodynamically significant stenosis by NASCET criteria. VERTEBRAL ARTERIES: Patient body habitus results in significant artifact obscuring the origins and proximal portions of the vertebral arteries. The distal portions within the foramina are seen and widely patent. No dissection, arterial injury, or significant stenosis. SOFT TISSUES: The lung apices are grossly clear. No cervical or superior mediastinal lymphadenopathy. The larynx and pharynx are unremarkable. No acute abnormality of the salivary and thyroid glands. Subcentimeter likely colloid cyst within the right thyroid lobe, no follow-up required. Small mucous retention cysts within the right maxillary sinus. BONES: Multiple dental caries. Small periapical lucency with cortical thinning seen anteriorly involving the right mandibular 2nd premolar. IMPRESSION: No extracranial large vessel occlusion or hemodynamically significant stenosis. Small periapical lucency with cortical thinning involving the right mandibular 2nd premolar. Additional multiple dental caries. Dental referral is recommended. I have personally reviewed the images of this examination and agree with the resident's findings and interpretation. Interpreted by: Jna Block Preliminary Report By: Rudi Shepherd Electronically signed By Jan Block Dictated Date: 08/20/2023 9:40:00 PM Prelim Date: 08/20/2023 9:44:05 PM Sign Date: 08/20/2023 10:10:26 PM Ordering Provider: [facility]05-29-2024 Note ORIGINAL EXAMINATION: CTA OF THE HEAD WITH CONTRAST 08/20/2023 9:38 pm: TECHNIQUE: CTA of the head/brain was performed with the administration of intravenous contrast. Multiplanar reformatted images are provided for review. MIP images are provided for review. Automated exposure control, iterative reconstruction, and/or weight based adjustment of the mA/kV was utilized to reduce the radiation dose to as low as reasonably achievable. COMPARISON: CTA head 08/24/2021.. HISTORY: ORDERING SYSTEM PROVIDED HISTORY: Reason for Exam: Stroke Emergency FINDINGS: ANTERIOR CIRCULATION: Minimal atherosclerotic changes without significant stenosis of the intracranial internal carotid, anterior cerebral, or middle cerebral arteries. No aneurysm. POSTERIOR CIRCULATION: No significant stenosis of the vertebral, basilar, or posterior cerebral arteries. No aneurysm. OTHER: No dural venous sinus thrombosis on this non-dedicated study. BRAIN: No mass effect or midline shift. No extra-axial fluid collection. The cai-white differentiation is maintained. IMPRESSION: Unremarkable CTA of the head. Core team was used to relay negative findings to ordering provider. Interpreted by: Jan Block Preliminary Report By: Jan Block Electronically signed By Jan Block Dictated Date: 08/20/2023 9:42:54 PM Prelim Date: 08/20/2023 10:01:46 PM Sign Date: 08/20/2023 10:01:46 PM [facility]rology Consult note Date of Service 08/20/2023 Reason for Consultation stroke Referring Physician Dr Servin History of Present Illness 48 yo male with h/o htn, prior stroke, presents with right hand numbness/weakness ands lurred speech. Per er md, symptoms lasting all day, last known well yesterday. Not on blood thinners. Kept dropping things all day Review of Systems Neg except for hpi Physical Exam Vitals and Measurements T: 37.0 C (Oral) HR: 90 RR: 18 BP: 134/84 SpO2: 97% WT: 139.4 kg Weight Dosing Weight: 139.4 kg (08/20/23) Phone consultation with Dr Servin, not a tnk candidate as outside window. Lab Results No 36 Hour Lab Data EKG EC08/21/23: Sinus rhythm Low voltage, precordial leads Electronic Signature: MU SERVIN MD 08/20/2023 20:37:22 Assessment/Plan Acute ischemic stroke not a tnk candidate as outside iv tnk window LVO rule out - cta head/neck pending If no LVO, Admit to floor for close monitoring with telemetry bed Asp 81 mg daily Plavix 75 mg daily x 21 days Lipitor 80 mg daily Lipid Panel, HbA1c MRI brain wo contrast TTE with bubble study Consider Loop Monitoring if cryptogenic stroke after above work-up Permissive HTN, do not treat BP unless > 220/110. Use PRN Labetalol DVT Prophylaxis with Lovenox 40 mg sc daily GI Prophylaxis with Protonix IV Speech Therapy Consult (if swallow bedside fails, will need corpack and initiation of tube feeds) PT/OT consult Routine care (neurochecks/vitals/I&Os and cardiac monitoring) Dr Servin agreed with above plan Thanks for the referral. Please call with questions. ?Flako Vasquez MD, MPH Vascular Neurology Neurocritical Care Problem List/Past Medical History Ongoing Abdominal pain Depression Diverticulitis History of stroke Hypertension Myocardial infarct Rheumatoid arthritis Historical Deviated septum Procedure/Surgical History Nephrectomy: 09/21/17 Proctocolectomy: 04/24/17 History of tonsillectomy: 2004 Appendectomy: 2002 Tendon Cholecystectomy Medications Inpatient No active inpatient medications Home aspirin 81 mg oral tablet, chewable, 81 mg= 1 tab(s), Oral, qDayM Bentyl use dicyclomine , 20 mg, Oral, QID dicyclomine 10 mg oral capsule, 10 mg= 1 cap(s), Oral, QID dicyclomine 20 mg oral tablet, 20 mg= 1 tab(s), Oral, QID, PRN metroNIDAZOLE 500 mg oral tablet, 500 mg= 1 tab(s), Oral, q8h omeprazole 20 mg oral delayed release capsule, 20 mg= 1 cap(s), Oral, qDay Pepcid 20 mg oral tablet, 20 mg= 1 tab(s), Oral, BID Allergies codeine(Severe) Swelling of throat, Hives Latex Vicodin Hives lidocaine naproxen Social History Smoking Status - 01/06/2018 Never smoker Alcohol - Denies Alcohol Use, 10/31/2016 Use: Never., 06/21/2018 Home/Environment Living situation: Home/Independent. Lives In: Apartment, 2nd floor bedroom, 2nd floor bathroom. Current Home Treatments None. Professional Skilled Services or Special Community Resources None., 04/08/2022 Nutrition/Health Type of diet: Regular. Appetite Good. Eating Difficulties None., 04/08/2022 Substance Abuse - Denies Substance Abuse, 10/31/2016 Use: Never., 06/21/2018 Tobacco - Denies Tobacco Use, 03/24/2018 Nicotine Use: 4 or less cigarettes(less than 1/4 pack)/day in last 30 days., 04/08/2022 Family History Cancer: Mother. Diabetes mellitus: Mother, Sister and Brother. HTN - Hypertension: Mother. Heart disease: Mother. Mental illness: Mother. Health Status Family Member(s) Immunizations tetanus/diphth/pertuss (Tdap) adult/adol: 0.5 mL (03/23/19) Digitally Signed by FLAKO VASQUEZ MD on 08/20/2023 08:41 PM [facility]05-29-2024 NoteSinus rhythm Low voltage, precordial leads Electronic Signature: MU SERVIN MD 08/20/2023 20:37:22[facility] 05-29-2024 Note ORIGINAL EXAMINATION: CT OF THE HEAD WITHOUT CONTRAST 08/20/2023 8:20 pm TECHNIQUE: CT of the head was performed without the administration of intravenous contrast. Automated exposure control, iterative reconstruction, and/or weight based adjustment of the mA/kV was utilized to reduce the radiation dose to as low as reasonably achievable. COMPARISON: CT head 12/31/2021 HISTORY: ORDERING SYSTEM PROVIDED HISTORY: Reason for Exam: change in mental status/weakness/aphasia FINDINGS: BRAIN/VENTRICLES: There is no acute intracranial hemorrhage, mass effect or midline shift. No abnormal extra-axial fluid collection. The cai-white differentiation is maintained without evidence of an acute infarct. There is no evidence of hydrocephalus. Minimal atherosclerosis of bilateral carotid siphons. ORBITS: The visualized portion of the orbits demonstrate no acute abnormality. SINUSES: The visualized paranasal sinuses and mastoid air cells demonstrate no acute abnormality. SOFT TISSUES/SKULL: No acute abnormality of the visualized skull or soft tissues. IMPRESSION: No acute intracranial hemorrhage or large vessel territory infarct. Critical results were called by Dr. Rudi Shepherd to MU SERVIN on 08/20/2023 at 20:27. I have personally reviewed the images of this examination and agree with the resident's findings and interpretation. Interpreted by: Jan Block Preliminary Report By: Rudi Shepherd Electronically signed By Jan Block Dictated Date: 08/20/2023 8:24:54 PM Prelim Date: 08/20/2023 8:28:55 PM Sign Date: 08/20/2023 8:31:15 PM Ordering Provider: [facility] Skye [id number] Instructions* Patient Instructions* Guerline Andersen MD - 07/15/2023 3:57 PM EDT The following instructions are important for you related to your office visit today with the [facility] Surgeons. INSTRUCTIONS FOR AN ANAL FISSURE You have an anal fissure. An anal fissure is a small tear at at the edge of the anus. It is usually caused by straining with bowel movements, but sometime it occurs during periods of loose stools or diarrhea. 70% of the time, anal fissures will heal will regulation of the stools and conservative measures. Regulation of the bowel habits is most important - The fissure will not heal if there is continued straining. I usually recommend fiber for initial regularion. Add Miralax - now available over the counter, if fiber alone isn't helping the constipation. Healing of the fissure will not occur until bowel regulation is achieved I recommend that you avoid spicy foods and perform sitz baths three to four times per day and afterbovel movements. A sitz bath is drawing luke warm water in the bathtub and soaking. The purpose is to relax the sphincter and rinse the anal area. DO NOT ADD EPSOM SALTS OR OTHER INGREDIENTS THIS CAN INCREASE THE BURNING. I will recommend a topical pain ointment, usually dibucaine or proctocream With each bowel movement, I recommend placing the topcial pain ointment prior to the bowel movements and use baby wipes and perform a sitz bath after each bowel movement. Dibucaine can be used between times as needed for anal pain. It the above measures are not helping within one week, call the office, and we may prescribe Diltiazem ointment. ( this is different from Dibucaine). If prescribed, it should be applied to the anal area twice a day. If you note any difficulties or concerns, you should contact our office immediately. If you note any additional difficulties, questions, or concerns, you should contact our office immediately @ [phone] and ask to be transferred to the General Surgery department. [facility] History of Present illness Narrative* Guerline Andersen MD - 07/15/2023 3:24 PM EDT HISTORY AND PHYSICAL Barrett Lopez 1975 REFERRING PHYSICIAN: No ref. provider found CHIEF COMPLAINT: Rectal Bleeding HPI: The patient is a 48 year old male with a complaint of intermittent rectal bleeding with pain and right upper and lower quadrant pain x3 weeks. Barrett states that after wiping he will notice blood on the toilet paper that takes multiple attempts to dry but no blood speckled in the stool. S/O states their is blood also in the toilet bowl. This happens intermittently and is not triggered by constipation which is a struggle. Barrett states he will go 2-3 days without a BM but does not use any OTC relief. Pt refers occasional reflux that is relieved by drinking strawberry milk. Patient's past medical history is significant for s/p cholecystectomy and sigmoid colectomy in 2017for diverticulitis. Last upper and lower scopes done by dr. Andersen 11/2022 with the following results: Upper Endoscopy Impression: - Normal examined jejunum. - Duodenitis. Biopsied. - Gastritis. Biopsied. - Mildly severe reflux esophagitis with no bleeding. Biopsied. Lower EndoscopyImpression: - The examined portion of the ileum was normal. - The entire examined colon is normal on direct and retroflexion views. - Diverticulosis in the sigmoid colon. 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 Unspecified adjustment reaction 10/23/2011 PAST SURGICAL HISTORY Procedure Laterality Date ABDOMINAL SURGERY HX APPENDECTOMY 12/2004 [facility] APPENDECTOMY HX COLECTOMY PART W/ANASTOMOSIS 11/07/2016 Open sigmoid colectomy with mobilization of splenic flexure for limited diverticulitis COLON SURGERY HX COLONOSCOPY 11/26/2022 repeat in 10 years COLONOSCOPY FLX DX W/COLLJ SPEC WHEN PFRMD 04/03/2021 repeat in 1 year-due to poor bowel prep EGD 11/26/2022 ESOPHAGOGASTRODUODENOSCOPY TRANSORAL DIAGNOSTIC 04/03/2018 EGD ESOPHAGOGASTRODUODENOSCOPY TRANSORAL DIAGNOSTIC 01/16/2021 ESOPHAGOGASTRODUODENOSCOPY TRANSORAL DIAGNOSTIC 04/03/2021 FOOT SURGERY HX Bilateral 1991 preair of broken feet FRACTURE SURGERY HAND SURGERY HX Left 2006 repair of fracture KNEE SURGERY HX Right 2016 LAPS SURG CHOLECYSTECTOMY W/CHOLANGIOGRAPHY 12/08/2017 PAST SURGICAL HISTORY OF 04/2007 fracture/Deviated septum TONSILLECTOMY & ADENOIDECTOMY AGE 14/> 2011 T/A (over age 14 years) TONSILLECTOMY HX Current Outpatient Medications Medication Sig omeprazole (PRILOSEC) 40 mg capsule Take 1 capsule by mouth once daily. furosemide (LASIX) 20 mg tablet Take 1 tablet by mouth once daily. No current facility-administered medications for this visit. ALLERGIES: Codeine, Latex, Naproxen, and Vicodin [Hydrocodone-Acetaminophen] PERSONAL HISTORY: Social History Tobacco Use Smoking status: Never Smokeless tobacco: Never Vaping Use Vaping Use: Never used Substance Use Topics Alcohol use: No Drug use: No FAMILY HISTORY: FAMILY HISTORY Problem Relation Age of Onset Diabetes Mother Hypertension Mother Cancer Mother lung and brain Hearing Loss Maternal Grandmother Diabetes Maternal Grandmother Heart Maternal Grandfather AR other (unknown) Father brain aneurysm? REVIEW OF SYMPTOMS: The review of systems data was entered by the nurse and reviewed by ut Nursing Notes: Martha Dozier MA 07/15/2023 3:20 PM Signed REVIEW OF SYSTEMS: General: The patient NOTES fatigue, denies weight loss, NOTES weight gain, NOTES feeling hot, and denies feelings of cold. Eyes: The patient denies glaucoma, denies eye injury/surgery, does not wear glasses or contacts. Ear/Nose/Throat: The patient denies allergies, denies hayfever, denies ear infections, and denies bloody noses. Cardiovascular: The patient denies chest pain, denies heart disease, NOTES high blood pressure,denies cardiac stent, NOTES prior heart attack, denies irregular heart beat, denies high cholesterol, denies poor circulation, denies heart failure, other cardiac issues, denies claudication, denies cold feet, denies peripheral arterial stent. Respiratory: The patient denies tuberculosis, denies pneumonia, denies frequent cough, denies pulmonary embolism, denies shortness of breath, and denies coughing up blood. Gastrointestinal: The patient denies difficulty swallowing, NOTES acid reflux, denies ulcers, denies vomiting, denies jaundice/hepatitis, denies gallbladder problems, denies black or tarry stools, denies hemorrhoids, NOTES bleeding from rectum, NOTES diverticulitis, NOTES constipation, denies diarrhea, denies loss of stool control, and denies hernias. Kidney/Bladder: The patient denies kidney stones, denies urine infections, and denies bloody urine. Skin: The patient denies a history of skin cancer, denies bleeding/changing moles, and denies a history of skin rash. Neurologic: The patient denies a history of epilepsy/convulsions, denies headaches, denies head/spinal injuries, and NOTES stroke/TIA. Psychiatric: The patient denies psychiatric medications, denies depression, and denies voices, denies substance abuse. Endocrine: The patient denies thyroid disorders, denies diabetes, and denies hormonal problems. Hematologic: The patient denies a history of bruising, denies bleeding, and denies anemia, denies blood clots. Infections: The patient denies a history of measles and mumps, denies rheumatic fever, and denies sexually transmitted diseases. Musculoskeletal: The patient denies back pain/injury, NOTES back problems, NOTES sciatica, NOTES knee/foot trouble, NOTES arthritis, or denies gout. When was patient's last Mammogram screening? N/A Last Colonoscopy: 11/26/2022 Martha Dozier MA PHYSICAL EXAMINATION: General: The patient is 48 year old male, well nourished, well hydrated in no acute distress. The patient is oriented to time, place, and person. VITALS: Blood pressure 132/86, pulse 88, temperature (!) 31.1 C (88 F), weight (!) 137 kg (302 lb),SpO2 97%. Body mass index is 47.3 kg/m . HEENT: Normal cephalic, ataumatic, pupils are equally round, sclera are anicteric, mucous membranesare moist, oropharynx is clear. Neck has no masses, asymmetry or lymphadenopathy. Respiratory: Clear to auscultation and percussion. Normal respiratory excursion and pattern. Cardiac: Examination is regular rate and rhythm. Normal S1/S2 Abdominal exam: Soft,no palpable masses. No hepatosplenomegaly. No palpable hernias. +RUQ & RLQtenderness Extremities: no clubbing, cyanosis or edema. No adenopathy. LABORATORY VALUES: As Noted RADIOLOGIC STUDIES: As Noted IMPRESSION: anal fissure & LORA with esophagitis PLAN: Discussed anal fissure care with patient as provided in the AVS. Also instructed patient to add miralax to help with constipation and ease BM pain with fissure. Instructed to apply OTC dibucaine ointment to the area for pain relief. Pt also provided a script for prilosec 40mg daily to help with RUQ pain. Diagnoses: (K60.2) Anal fissure (primary encounter diagnosis) (K21.00) Gastroesophageal reflux disease with esophagitis without hemorrhage Return to Clinic: The patient is instructed to follow-up with me as needed. Patient verbalized understanding of all above and agreed with the plan Asia Salgado APRN.TELEVISION CABINET FINISHER Attending Note I have personally performed a face to face assessment of the patient and have reviewed the PRISCILA note. I performed a substantive portion of the visit including all aspects of the following. My hernandez findings include: Patient notes pain and bleeding with bowel movements. Patient notes constipation. He underwent colonoscopy last fall demonstrated no anorectal abnormalities. Upper endoscopy also demonstrated gastritis and esophagitis. Examination was limited due to lack of relaxation but the patient had tenderness in the posterior midline consistent with an anal fissure. My impression is anal fissure and gastritis. He was prescribed Prilosec 40 mg a day and conservative measures for the anal fissure including sitz bath's Dilocaine and stool softeners. Other additions or changes: None Signature: Guerline Andersen MD Date: 07/15/2023 Time: 6:57 PM documented in this encounterOur [facility] Of [facility]04-[facility] Nurse Note* Martha Dozier MA - 07/15/2023 3:17 PM EDT REVIEW OF SYSTEMS: General: The patient NOTES fatigue, denies weight loss, NOTES weight gain, NOTES feeling hot, and denies feelings of cold. Eyes: The patient denies glaucoma, denies eye injury/surgery, does not wear glasses or contacts. Ear/Nose/Throat: The patient denies allergies, denies hayfever, denies ear infections, and denies bloody noses. Cardiovascular: The patient denies chest pain, denies heart disease, NOTES high blood pressure,denies cardiac stent, NOTES prior heart attack, denies irregular heart beat, denies high cholesterol, denies poor circulation, denies heart failure, other cardiac issues, denies claudication, denies cold feet, denies peripheral arterial stent. Respiratory: The patient denies tuberculosis, denies pneumonia, denies frequent cough, denies pulmonary embolism, denies shortness of breath, and denies coughing up blood. Gastrointestinal: The patient denies difficulty swallowing, NOTES acid reflux, denies ulcers, denies vomiting, denies jaundice/hepatitis, denies gallbladder problems, denies black or tarry stools, denies hemorrhoids, NOTES bleeding from rectum, NOTES diverticulitis, NOTES constipation, denies diarrhea, denies loss of stool control, and denies hernias. Kidney/Bladder: The patient denies kidney stones, denies urine infections, and denies bloody urine. Skin: The patient denies a history of skin cancer, denies bleeding/changing moles, and denies a history of skin rash. Neurologic: The patient denies a history of epilepsy/convulsions, denies headaches, denies head/spinal injuries, and NOTES stroke/TIA. Psychiatric: The patient denies psychiatric medications, denies depression, and denies voices, denies substance abuse. Endocrine: The patient denies thyroid disorders, denies diabetes, and denies hormonal problems. Hematologic: The patient denies a history of bruising, denies bleeding, and denies anemia, denies blood clots. Infections: The patient denies a history of measles and mumps, denies rheumatic fever, and denies sexually transmitted diseases. Musculoskeletal: The patient denies back pain/injury, NOTES back problems, NOTES sciatica, NOTES knee/foot trouble, NOTES arthritis, or denies gout. When was patient's last Mammogram screening? N/A Last Colonoscopy: 11/26/2022 Martha Dozier MA [facility]04-23-2024 Nurse Note* Martha DozierRAYSA - 07/15/2023 3:17 PM EDT REVIEW OF SYSTEMS: General: The patient NOTES fatigue, denies weight loss, NOTES weight gain, NOTES feeling hot, and denies feelings of cold. Eyes: The patient denies glaucoma, denies eye injury/surgery, does not wear glasses or contacts. Ear/Nose/Throat: The patient denies allergies, denies hayfever, denies ear infections, and denies bloody noses. Cardiovascular: The patient denies chest pain, denies heart disease, NOTES high blood pressure,denies cardiac stent, NOTES prior heart attack, denies irregular heart beat, denies high cholesterol, denies poor circulation, denies heart failure, other cardiac issues, denies claudication, denies cold feet, denies peripheral arterial stent. Respiratory: The patient denies tuberculosis, denies pneumonia, denies frequent cough, denies pulmonary embolism, denies shortness of breath, and denies coughing up blood. Gastrointestinal: The patient denies difficulty swallowing, NOTES acid reflux, denies ulcers, denies vomiting, denies jaundice/hepatitis, denies gallbladder problems, denies black or tarry stools, denies hemorrhoids, NOTES bleeding from rectum, NOTES diverticulitis, NOTES constipation, denies diarrhea, denies loss of stool control, and denies hernias. Kidney/Bladder: The patient denies kidney stones, denies urine infections, and denies bloody urine. Skin: The patient denies a history of skin cancer, denies bleeding/changing moles, and denies a history of skin rash. Neurologic: The patient denies a history of epilepsy/convulsions, denies headaches, denies head/spinal injuries, and NOTES stroke/TIA. Psychiatric: The patient denies psychiatric medications, denies depression, and denies voices, denies substance abuse. Endocrine: The patient denies thyroid disorders, denies diabetes, and denies hormonal problems. Hematologic: The patient denies a history of bruising, denies bleeding, and denies anemia, denies blood clots. Infections: The patient denies a history of measles and mumps, denies rheumatic fever, and denies sexually transmitted diseases. Musculoskeletal: The patient denies back pain/injury, NOTES back problems, NOTES sciatica, NOTES knee/foot trouble, NOTES arthritis, or denies gout. When was patient's last Mammogram screening? N/A Last Colonoscopy: 11/26/2022 [facility] Dozier MA [facility] Discharge instructions Patient Education 06/15/2023 22:42:49 Rib Contusion or Minor Fracture Rib Contusion or Minor Fracture A rib contusion is a bruise to one or more rib bones. It may cause pain, tenderness, swelling, and a purplish color to the skin. There may be a sharp pain with each breath. A rib contusion takes anywhere from a few days to a few weeks to heal. A minor rib fracture or break may cause the same symptoms as a rib contusion. The small crack may not be seen on a regular chest X-ray. Treatment for both problems is basically the same. Home care You may use ltkg-snt-cyztddw pain medicine to control pain, unless another pain medicine was prescribed. If you have chronic liver or kidney disease or ever had a stomach ulcer or GI (gastrointestinal) bleeding, talk with your healthcare provider before using these medicines. Rest. Don't lift anything heavy or do any activity that causes pain. Apply an ice pack over the injured area for 15 to 20 minutes every 1 to 2 hours. You should do thisfor the first 24 to 48 hours. To make an ice pack, put ice cubes in a plastic bag that seals at thetop. Wrap the bag in a clean, thin towel or cloth. Never put ice or an ice pack directly on the skin. Continue with ice packs as needed for the relief of pain and swelling. The first 3 to 4 weeks of healing will be the most painful. If your pain is not under control with the treatment given, call your healthcare provider. Sometimes a stronger pain medicine may be needed. A nerve block can be done in case of severe pain. It will numb the nerve between the ribs. Follow-up care Follow up with your healthcare provider, or as advised. If X-rays were taken, you will be told of any new findings that may affect your care. Call 911 Call 911 if you have: Dizziness, weakness or fainting Shortness of breath with or without chest discomfort New or worsening pain When to seek medical advice Call your healthcare provider right away if any of these occur: Fever of 100.4 F (38 C) or higher, or as directed by your healthcare provider Chills Stomach pain, vomiting [phone] [employer]. [address] [place] [address]. All rights reserved. This information is not intended as a substitute for professional medical care. Always follow yourhealthcare professional's instructions. 06/15/2023 22:42:44 Vomiting (Adult) Vomiting (Adult) Vomiting is a common symptom that may be due to different causes. These include gastroenteritis (stomach flu), food poisoning and gastritis. There are other more serious causes of vomiting which may be hard to diagnose early in the illness. Therefore, it is important to watch for the warning signs listed below. The main danger from repeated vomiting is dehydration. This is due to excess loss of water and minerals from the body. When this occurs, your body fluids must be replaced. Home care If symptoms are severe, rest at home for the next 24 hours. Because your symptoms may be from an infection, wash your hands often and well. If soap and water are not available, use alcohol-based mechanical unit repairer to keep from spreading the infection to others. Wash your hands for at least 20 seconds. Humming the happy birthday song twice while you wash is aneasy way to make sure you've washed for 20 seconds. Wash your hands after using the toilet, before and after preparing food, before eating food, after changing a diaper, cleaning a wound, caring for a sick person, and blowing your nose, coughing, or sneezing. You should also wash your hands after caring for someone who is sick, touching pet food, ortreats, and touching an animal, or animal waste. You may use acetaminophen or NSAID medicines like ibuprofen or naproxen to control fever, unless another medicine was prescribed. If you have chronic liver or kidney disease or ever had a stomach ulcer or gastrointestinal bleeding, talk with your doctor before using these medicines. Aspirin should never be used in anyone under 18 years of age who is ill with a fever. It may cause severe liver damage. Don't use NSAID medicines if you are already taking one for another condition (like arthritis) or are on aspirin (such as for heart disease, or after a stroke) Don't use tobacco and or drink alcohol, which may worsen your symptoms. If medicines for vomiting were prescribed, take as directed. Once vomiting stops, then follow these guidelines: During the first 12 to 24 hours follow the diet below: Fruit juices. Apple, grape juice, clear fruit drinks, and electrolyte replacement drinks. Beverages. Soft drinks without caffeine; mineral water (plain or flavored), decaffeinated tea and coffee. Soups. Clear broth and bouillon Desserts. Plain gelatin, ice pops, and fruit juice bars. As you feel better, you may add 6 to 8 ounces of yogurt per day. During the next 24 hours you may add the following to the above: Hot cereal, plain toast, bread, rolls, crackers Plain noodles, rice, mashed potatoes, chicken noodle or rice soup Unsweetened canned fruit such as applesauce, bananas (avoid pineapple and citrus) Limit caffeine and chocolate. No spices or seasonings except salt. During the next 24 hours: Gradually resume a normal diet, as you feel better and your symptoms lessen. Follow-up care Follow up with your healthcare provider, or as advised. When to seek medical advice Call your healthcare provider right away if any of these occur: Constant right-sided lower belly pain or increasing general belly pain Continued vomiting (unable to keep liquids down) for 24 hours Vomiting blood or coffee grounds Swollen belly Frequent diarrhea (more than 5 times a day); blood (red or black color) or mucus in diarrhea Reduced urine output or extreme thirst Weakness, dizziness or fainting Unusually drowsy or confused Fever of 100.4 F (38 C) oral or higher, or as directed Yellow color of the eyes or skin [phone] [employer]. [address] [place] [address], [place] [address]. All rights reserved. This information is not intended as a substitute for professional medical care. Always follow yourhealthcare professional's instructions. Follow Up Care 06/15/2023 21:22:31 With:Call Physician Referral Address:Unknown When:2-4 days [facility] 03-24-2024 Note Discharge Instructions Thank you for allowing [facility] to assist you with your healthcare needs. The following is importantdischarge information regarding your hospital visit. Diagnosis from Today's Visit Rib pain What to Do Next Instructions from Your Care Team Discharge Return to Work, School, or Sports (Return to Work, School, or Sports) - Ordered -- 06/17/23, May return to: work, 06/15/23 21:39:00 EDT Post Acute Orders No qualifying data available. You Need to Schedule the Following Appointments Follow Up with Call Physician Referral When Within 2-4 days Allergies codeine (Swelling of throat, Hives) Latex Vicodin (Hives) lidocaine naproxen Medications Please ask your primary doctor or pharmacist before taking any other medication not listed, including over the counter drugs, herbal medications, vitamins and or supplements as they may interact withyour home medications. What How Much When Why Instructions Last Dose New acetaminophen-oxyCODONE (Percocet 5 mg-325 mg oral tablet) 1 tab(s) by mouth Every 6 hours as needed for Pain Rib pain Duration: 3 Days Printed Prescription New ondansetron (ondansetron 4 mg oral tablet, disintegrating) 1 tab(s) by mouth Every 6 hours Duration: 4 Days Printed Prescription Unchanged aspirin (aspirin 81 mg oral tablet, chewable) 1 tab(s) by mouth Once a day with a meal Duration: 30 Days Unchanged dicyclomine (Bentyl use dicyclomine ) 20 Milligram by mouth Four (4) times a day Duration: 7 Days Unchanged dicyclomine (dicyclomine 10 mg oral capsule) 1 cap by mouth Four (4) times a day Duration: 5 Days Unchanged dicyclomine (dicyclomine 20 mg oral tablet) 1 tab(s) by mouth Four (4) times a day as needed for abdominal discomfort Diarrhea and vomiting Gastroenteritis Duration: 3 Days Unchanged famotidine (Pepcid 20 mg oral tablet) 1 tab(s) by mouth Two (2) times a day Unchanged metroNIDAZOLE (metroNIDAZOLE 500 mg oral tablet) 1 tab(s) by mouth Every 8 hours Lower GI bleeding Duration: 5 Days Unchanged omeprazole (omeprazole 20 mg oral delayed release capsule) 1 cap by mouth Once a day Please take this list to your next doctor s visit. Bring all medications you take, including over the counter medications, herbals and other supplements with you to your doctor s visit. Patients and families are reminded to discard old lists and to update any records with all medication providers or retail pharmacies. Education Materials Rib Contusion or Minor Fracture A rib contusion is a bruise to one or more rib bones. It may cause pain, tenderness, swelling, and a purplish color to the skin. There may be a sharp pain with each breath. A rib contusion takes anywhere from a few days to a few weeks to heal. A minor rib fracture or break may cause the same symptoms as a rib contusion. The small crack may not be seen on a regular chest X-ray. Treatment for both problems is basically the same. Home care You may use gkix-qgz-ieegswg pain medicine to control pain, unless another pain medicine was prescribed. If you have chronic liver or kidney disease or ever had a stomach ulcer or GI (gastrointestinal) bleeding, talk with your healthcare provider before using these medicines. Rest. Don't lift anything heavy or do any activity that causes pain. Apply an ice pack over the injured area for 15 to 20 minutes every 1 to 2 hours. You should do thisfor the first 24 to 48 hours. To make an ice pack, put ice cubes in a plastic bag that seals at thetop. Wrap the bag in a clean, thin towel or cloth. Never put ice or an ice pack directly on the skin. Continue with ice packs as needed for the relief of pain and swelling. The first 3 to 4 weeks of healing will be the most painful. If your pain is not under control with the treatment given, call your healthcare provider. Sometimes a stronger pain medicine may be needed. A nerve block can be done in case of severe pain. It will numb the nerve between the ribs. Follow-up care Follow up with your healthcare provider, or as advised. If X-rays were taken, you will be told of any new findings that may affect your care. Call 911 Call 911 if you have: Dizziness, weakness or fainting Shortness of breath with or without chest discomfort New or worsening pain When to seek medical advice Call your healthcare provider right away if any of these occur: Fever of 100.4 F (38 C) or higher, or as directed by your healthcare provider Chills Stomach pain, vomiting [phone] [employer]. [address] [place] [address]. All rights reserved. This information is not intended as a substitute for professional medical care. Always follow yourhealthcare professional's instructions. Vomiting (Adult) Vomiting is a common symptom that may be due to different causes. These include gastroenteritis (stomach flu), food poisoning and gastritis. There are other more serious causes of vomiting which may be hard to diagnose early in the illness. Therefore, it is important to watch for the warning signs listed below. The main danger from repeated vomiting is dehydration. This is due to excess loss of water and minerals from the body. When this occurs, your body fluids must be replaced. Home care If symptoms are severe, rest at home for the next 24 hours. Because your symptoms may be from an infection, wash your hands often and well. If soap and water are not available, use alcohol-based mechanical unit repairer to keep from spreading the infection to others. Wash your hands for at least 20 seconds. Humming the happy birthday song twice while you wash is aneasy way to make sure you've washed for 20 seconds. Wash your hands after using the toilet, before and after preparing food, before eating food, after changing a diaper, cleaning a wound, caring for a sick person, and blowing your nose, coughing, or sneezing. You should also wash your hands after caring for someone who is sick, touching pet food, ortreats, and touching an animal, or animal waste. You may use acetaminophen or NSAID medicines like ibuprofen or naproxen to control fever, unless another medicine was prescribed. If you have chronic liver or kidney disease or ever had a stomach ulcer or gastrointestinal bleeding, talk with your doctor before using these medicines. Aspirin should never be used in anyone under 18 years of age who is ill with a fever. It may cause severe liver damage. Don't use NSAID medicines if you are already taking one for another condition (like arthritis) or are on aspirin (such as for heart disease, or after a stroke) Don't use tobacco and or drink alcohol, which may worsen your symptoms. If medicines for vomiting were prescribed, take as directed. Once vomiting stops, then follow these guidelines: During the first 12 to 24 hours follow the diet below: Fruit juices. Apple, grape juice, clear fruit drinks, and electrolyte replacement drinks. Beverages. Soft drinks without caffeine; mineral water (plain or flavored), decaffeinated tea and coffee. Soups. Clear broth and bouillon Desserts. Plain gelatin, ice pops, and fruit juice bars. As you feel better, you may add 6 to 8 ounces of yogurt per day. During the next 24 hours you may add the following to the above: Hot cereal, plain toast, bread, rolls, crackers Plain noodles, rice, mashed potatoes, chicken noodle or rice soup Unsweetened canned fruit such as applesauce, bananas (avoid pineapple and citrus) Limit caffeine and chocolate. No spices or seasonings except salt. During the next 24 hours: Gradually resume a normal diet, as you feel better and your symptoms lessen. Follow-up care Follow up with your healthcare provider, or as advised. When to seek medical advice Call your healthcare provider right away if any of these occur: Constant right-sided lower belly pain or increasing general belly pain Continued vomiting (unable to keep liquids down) for 24 hours Vomiting blood or coffee grounds Swollen belly Frequent diarrhea (more than 5 times a day); blood (red or black color) or mucus in diarrhea Reduced urine output or extreme thirst Weakness, dizziness or fainting Unusually drowsy or confused Fever of 100.4 F (38 C) oral or higher, or as directed Yellow color of the eyes or skin [phone] [employer]. [address] [place] [address]. All rights reserved. This information is not intended as a substitute for professional medical care. Always follow yourhealthcare professional's instructions. Additional Information VACCINATE! IT SAVES LIVES! Members of the community who have not yet received the COVID-19 vaccine and would like to receive it can visit one of [facility] vaccine clinics. There are many vaccine clinic locations within the [facility]. For locations and available times, please visit [email or web address]/. It is important to note that some COVID mobile vaccine clinics are held outdoors and may be canceled in rainy or stormy conditions. To learn more about pediatric vaccinations (ages 5-11), we invite you to visit the [facility] webpage. [email or web address]/[email or web address] learn more about the COVID-19 vaccine, we invite you to visit the CDC website for a list of frequently asked questions. https://www.cdc.gov/coronavirus/2019-ncov/vaccines/faq.html [place] [employer] Patient Portal Access Instructions: Stay connected with your healthcare team and access your personal medical information anytime with the [email or web address] Patient Portal. If you would like a full copy of your medical records please contact the [facility] Medical Records Department Friday through Friday between 8a.m. and 4:30p.m. Please follow the directions below to access the portal: 1.Access the email account you provided upon registration to the [facility].2.Look for an invitation email from [facility].3.Open the email and access the invitation link: Accept Invitation to [email or web address].Fill in the required baugh to create your account. Sign into [email or web address] with your username and password that you created in the above steps to stay up to date. You can then view a summary of results, a summary of your visits, and the ability to download your summaries to your computer or send the information securely to a physician. Remember that your healthcare information is confidential, so carefully consider who you will allow to register on the [email or web address] Patient Portal for access to your information. You can also access the [email or web address] Patient Portal on the [employer] priscila. Simply click on Health Records under [employer] and then click on the [employer] logo. HOW TO SAFELY DISPOSE OF PRESCRIPTION MEDICATIONS Please use one of the following methods to safely dispose of your unused medications. 1.Use a drug disposal kit: the drug disposal pouch allows you to safely discard your old and unuseddrugs. Ask your nurse to give you one when you are discharged.2.Visit a local take-back location: Many local pharmacies and police departments have programs that collect old and unwanted prescriptiondrugs. Call your local pharmacy or go to http://bit.[employer]/7Y8Px8j to find one close to you.3.Make use of household items: Use cat litter or old coffee grounds to dispose medications if other options arenot available. Mix your drugs with these household products, seal them in an airtight container andthrow it into the garbage. Call [facility]: [phone] to be sure your drugs can be disposed of in this way. Some medicines may require a different approach.4.Never flush your medications down the toilet. IF YOU HAVE BEEN PRESCRIBED AN OPIOIDS FOR PAIN If you have been prescribed an opioid (such as hydrocodone, oxycodone or morphine), it is critical to understand the possible side effects and risks of opioid pain medications. Even when taken as directed, opioids can have several side effects including: Tolerance, meaning you might need to take more of a medication for the same pain relief. Nausea, vomiting and/or constipation. Sleepiness, dizziness, dry mouth, confusion, depression or itching. Physical dependence, meaning you have withdrawal symptoms when a medication is stopped ? this can develop within a few days. KNOW YOUR RESPONSIBILITIES It is important to know exactly how much and how often to take the opioid pain medications you are prescribed. Never take opioids in higher amounts or more often than prescribed. Do not combine opioids with alcohol or other drugs that cause drowsiness, such as benzodiazepines, also known as benzos,including diazepam and alprazolam, muscle relaxants or sleep aids. Never sell or share prescriptionopioids. This is illegal. Store opioids in a secure place and out of reach of others (including children, family, friends and visitors). The last page(s) of this document has been signed and retained as a CHART COPY Signatures Patient Education Materials Rib Contusion or Minor Fracture Vomiting (Adult) Medication Leaflets My discharge plan and instructions have been reviewed and explained to me and I,BARRETT LOPEZ understand my current condition and have read and understand these discharge instructions. I have received a written copy of the plan/instructions. If I have questions, I am aware that I should contact my doctor. Patient/Hr Director Signature: Date/Time: Relationship to Patient: Witness Name/Signature: Date/Time: [facility] [id number] Hospital Discharge instructions Patient Education 06/08/2023 01:11:56 Rib Contusion Rib Contusion A rib contusion is a bruise to one or more rib bones. It may cause pain, tenderness, swelling and apurplish discoloration. There may be a sharp pain while breathing. You will be assessed for other injuries. You will likely be given pain medicine. Rib contusions heal on their own, without further treatment. However, pain may take weeks to months to go away. Note that a small crack (fracture) in the rib may cause the same symptoms as a rib contusion. The small crack may not be seen on a chest X-ray. However, the conditions are managed in the same way. Home care Rest. Avoid heavy lifting, strenuous exertion, or any activity that causes pain. Ice the area to reduce pain and swelling. Put ice cubes in a plastic bag or use a cold pack. (Wrap the cold source in a thin towel. Do not place it directly on your skin.) Ice the injured area for 20minutes every 1 to 2 hours the first day. Continue with ice packs 3 to 4 times a day for the next 2days, then as needed for the relief of pain and swelling. Take any prescribed pain medicine as directed by your healthcare provider. If none was prescribed, take acetaminophen, ibuprofen, or naproxen to control pain. If you have a significant injury, you may be given a device called an incentive spirometer to keep your lungs healthy. Use as directed. Follow-up care Follow up with your healthcare provider during the next week or as directed. When to seek medical advice Call your healthcare provider for any of the following: Shortness of breath or trouble breathing Increasing chest pain with breathing Coughing Dizziness, weakness, or fainting New or worsening pain Fever of 100.4 F (38 C) or higher, or as directed by your healthcare provider [phone] [employer]. [address] [place] [address], [place] [address]. All rights reserved. This information is not intended as a substitute for professional medical care. Always follow [facility] instructions. 06/08/2023 01:11:47 Back and Neck Pain, General General Neck and Back Pain Both neck and back pain are usually caused by injury to the muscles or ligaments of the spine. Sometimes the disks that separate each bone of the spine may cause pain by pressing on a nearby nerve. Back and neck pain may appear after a sudden twisting or bending force (such as in a car accident), or sometimes after a simple awkward movement. In either case, muscle spasm is often present and adds to the pain. Acute neck and back pain usually gets better in 1 to 2 weeks. Pain related to disk disease, arthritis in the spinal joints or spinal stenosis (narrowing of the spinal canal) can become chronic and last for months or years. Back and neck pain are common problems. Most people feel better in 1 or 2 weeks, and most of the rest in 1 to 2 months. Most people can remain active. People have and describe pain differently. Pain can be sharp, stabbing, shooting, aching, cramping, or burning Movement, standing, bending, lifting, sitting, or walking may worsen the pain Pain can be localized to one spot or area, or it can be more generalized Pain can spread or radiate upwards, downwards, to the front, or go down your arms Muscle spasm may occur. Most of the time mechanical problems with the muscles or spine cause the pain. it is usually causedby an injury, whether known or not, to the muscles or ligaments. While illnesses can cause back pain, it is usually not caused by a serious illness. Pain is usually related to physical activity, whether sports, exercise, work, or normal activity. Sometimes it can occur without an identifiable cause. This can happen simply by stretching or moving wrong, without noting pain at the time. Other causes include: Overexertion, lifting, pushing, pulling incorrectly or too aggressively. Sudden twisting, bending or stretching from an accident (car or fall), or accidental movement. Poor posture Poor conditioning, lack of regular exercise Spinal disc disease or arthritis Stress , or illness like appendicitis, bladder or kidney infection, pelvic infections Home care For neck pain: Use a comfortable pillow that supports the head and keeps the spine in a neutral position. The position of the head should not be tilted forward or backward. When in bed, try to find a position of comfort. A firm mattress is best. Try lying flat on your back with pillows under your knees. You can also try lying on your side with your knees bent up towardsyour chest and a pillow between your knees. At first, do not try to stretch out the sore spots. If there is a strain, it is not like the good soreness you get after exercising without an injury. In this case, stretching may make it worse. Don't sit for long periods, as in long car rides or other travel. This puts more stress on the lower back than standing or walking. During the first 24 to 72 hours after an injury, apply an ice pack to the painful area for 20 minutes and then remove it for 20 minutes over a period of 60 to 90 minutes or several times a day. You can alternate ice and heat therapies. Talk with your healthcare provider about the best treatment for your back or neck pain. As a safety precaution, do not use a heating pad at bedtime. Sleepingwith a heating pad can lead to skin bridges or tissue damage. Therapeutic massage can help relax the back and neck muscles without stretching them. Be aware of safe lifting methods and do not lift anything over 15 pounds until all the pain is gone. Medicines Talk to your healthcare provider before using medicine, especially if you have other medical problems or are taking other medicines. You may use [id number] medicine to control pain, unless another pain medicine was prescribed.If you have chronic conditions like diabetes, liver or kidney disease, stomach ulcers, gastrointestinal bleeding, or are taking blood thinner medicines. Be careful if you are given pain medicines, narcotics, or medicine for muscle spasm. They can causedrowsiness, and can affect your coordination, reflexes, and judgment. Do not drive or operate heavymachinery. Follow-up care Follow up with your healthcare provider, or as advised. Physical therapy or further tests may be needed. If X-rays were taken, you will be notified of any new findings that may affect your care. Call 911 Call 911 if any of the following occur: Trouble breathing Confusion Very drowsy or trouble awakening Fainting or loss of consciousness Rapid or very slow heart rate Loss of bowel or bladder control When to seek medical advice Call your healthcare provider right away if any of these occur: Pain becomes worse or spreads into your arms or legs Weakness, numbness or pain in one or both arms or legs Numbness in the groin area Difficulty walking Fever of 100.4 F (38 C) or higher, or as directed by your healthcare provider [phone] [employer]. [address] [place] [address], [place] [address]. All rights reserved. This information is not intended as a substitute for professional medical care. Always follow yourhealthcare professional's instructions. Follow Up Care 06/07/2023 23:05:45 With:Go to emergency room if symptoms worsen Address:Unknown When:2-4 days With:Follow up with primary care provider Address:Unknown When:2-4 days [facility] 03-17-2024 Note Discharge Instructions Thank you for allowing [facility] to assist you with your healthcare needs. The following is importantdischarge information regarding your hospital visit. Diagnosis from Today's Visit Back pain Medical screening exam Pain of left hand Rib pain What to Do Next Instructions from Your Care Team Take Tylenol and or Motrin as needed for pain. Do not exceed recommended dose. May take Flexeril asneeded for pain. Maximum recommended dose. Not take Flexeril before operating heavy machinery. Follow-up with Worker's Comp. and your regular doctor. Recommend light duty until follow-up with Worker's Comp. Discharge Return to Work, School, or Sports (Return to Work, School, or Sports) - Ordered -- 06/09/23, May return to: work, Light duty no lifting greater than 20 pounds no cleared by occupational health, 06/08/23 1:17:00 EDT Post Acute Orders No qualifying data available. You Need to Schedule the Following Appointments Follow Up with Go to emergency room if symptoms worsen When Within 2-4 days Follow Up with Follow up with primary care provider When Within 2-4 days Allergies codeine (Swelling of throat, Hives) Latex Vicodin (Hives) lidocaine naproxen Medications Please ask your primary doctor or pharmacist before taking any other medication not listed, including over the counter drugs, herbal medications, vitamins and or supplements as they may interact withyour home medications. What How Much When Why Instructions Last Dose New cyclobenzaprine (cyclobenzaprine 10 mg oral tablet) 1 tab(s) by mouth Three (3) times a day Duration: 7 Days Printed Prescription New cyclobenzaprine (cyclobenzaprine 10 mg oral tablet) 1 tab(s) by mouth Three (3) times a day Duration: 7 Days Printed Prescription Unchanged aspirin (aspirin 81 mg oral tablet, chewable) 1 tab(s) by mouth Once a day with a meal Duration: 30 Days Unchanged dicyclomine (Bentyl use dicyclomine ) 20 Milligram by mouth Four (4) times a day Duration: 7 Days Unchanged dicyclomine (dicyclomine 10 mg oral capsule) 1 cap by mouth Four (4) times a day Duration: 5 Days Unchanged dicyclomine (dicyclomine 20 mg oral tablet) 1 tab(s) by mouth Four (4) times a day as needed for abdominal discomfort Diarrhea and vomiting Gastroenteritis Duration: 3 Days Unchanged famotidine (Pepcid 20 mg oral tablet) 1 tab(s) by mouth Two (2) times a day Unchanged metroNIDAZOLE (metroNIDAZOLE 500 mg oral tablet) 1 tab(s) by mouth Every 8 hours Lower GI bleeding Duration: 5 Days Unchanged omeprazole (omeprazole 20 mg oral delayed release capsule) 1 cap by mouth Once a day Please take this list to your next doctor s visit. Bring all medications you take, including over the counter medications, herbals and other supplements with you to your doctor s visit. Patients and families are reminded to discard old lists and to update any records with all medication providers or retail pharmacies. Education Materials Rib Contusion A rib contusion is a bruise to one or more rib bones. It may cause pain, tenderness, swelling and apurplish discoloration. There may be a sharp pain while breathing. You will be assessed for other injuries. You will likely be given pain medicine. Rib contusions heal on their own, without further treatment. However, pain may take weeks to months to go away. Note that a small crack (fracture) in the rib may cause the same symptoms as a rib contusion. The small crack may not be seen on a chest X-ray. However, the conditions are managed in the same way. Home care Rest. Avoid heavy lifting, strenuous exertion, or any activity that causes pain. Ice the area to reduce pain and swelling. Put ice cubes in a plastic bag or use a cold pack. (Wrap the cold source in a thin towel. Do not place it directly on your skin.) Ice the injured area for 20minutes every 1 to 2 hours the first day. Continue with ice packs 3 to 4 times a day for the next 2days, then as needed for the relief of pain and swelling. Take any prescribed pain medicine as directed by your healthcare provider. If none was prescribed, take acetaminophen, ibuprofen, or naproxen to control pain. If you have a significant injury, you may be given a device called an incentive spirometer to keep your lungs healthy. Use as directed. Follow-up care Follow up with your healthcare provider during the next week or as directed. When to seek medical advice Call your healthcare provider for any of the following: Shortness of breath or trouble breathing Increasing chest pain with breathing Coughing Dizziness, weakness, or fainting New or worsening pain Fever of 100.4 F (38 C) or higher, or as directed by your healthcare provider [phone] [employer]. [address] [place] [id number]. All rights reserved. This information is not intended as a substitute for professional medical care. Always follow yourhealthcare professional's instructions. General Neck and Back Pain Both neck and back pain are usually caused by injury to the muscles or ligaments of the spine. Sometimes the disks that separate each bone of the spine may cause pain by pressing on a nearby nerve. Back and neck pain may appear after a sudden twisting or bending force (such as in a car accident), or sometimes after a simple awkward movement. In either case, muscle spasm is often present and adds to the pain. Acute neck and back pain usually gets better in 1 to 2 weeks. Pain related to disk disease, arthritis in the spinal joints or spinal stenosis (narrowing of the spinal canal) can become chronic and last for months or years. Back and neck pain are common problems. Most people feel better in 1 or 2 weeks, and most of the rest in 1 to 2 months. Most people can remain active. People have and describe pain differently. Pain can be sharp, stabbing, shooting, aching, cramping, or burning Movement, standing, bending, lifting, sitting, or walking may worsen the pain Pain can be localized to one spot or area, or it can be more generalized Pain can spread or radiate upwards, downwards, to the front, or go down your arms Muscle spasm may occur. Most of the time mechanical problems with the muscles or spine cause the pain. it is usually causedby an injury, whether known or not, to the muscles or ligaments. While illnesses can cause back pain, it is usually not caused by a serious illness. Pain is usually related to physical activity, whether sports, exercise, work, or normal activity. Sometimes it can occur without an identifiable cause. This can happen simply by stretching or moving wrong, without noting pain at the time. Other causes include: Overexertion, lifting, pushing, pulling incorrectly or too aggressively. Sudden twisting, bending or stretching from an accident (car or fall), or accidental movement. Poor posture Poor conditioning, lack of regular exercise Spinal disc disease or arthritis Stress , or illness like appendicitis, bladder or kidney infection, pelvic infections Home care For neck pain: Use a comfortable pillow that supports the head and keeps the spine in a neutral position. The position of the head should not be tilted forward or backward. When in bed, try to find a position of comfort. A firm mattress is best. Try lying flat on your back with pillows under your knees. You can also try lying on your side with your knees bent up towardsyour chest and a pillow between your knees. At first, do not try to stretch out the sore spots. If there is a strain, it is not like the good soreness you get after exercising without an injury. In this case, stretching may make it worse. Don't sit for long periods, as in long car rides or other travel. This puts more stress on the lower back than standing or walking. During the first 24 to 72 hours after an injury, apply an ice pack to the painful area for 20 minutes and then remove it for 20 minutes over a period of 60 to 90 minutes or several times a day. You can alternate ice and heat therapies. Talk with your healthcare provider about the best treatment for your back or neck pain. As a safety precaution, do not use a heating pad at bedtime. Sleepingwith a heating pad can lead to skin bridges or tissue damage. Therapeutic massage can help relax the back and neck muscles without stretching them. Be aware of safe lifting methods and do not lift anything over 15 pounds until all the pain is gone. Medicines Talk to your healthcare provider before using medicine, especially if you have other medical problems or are taking other medicines. You may use owqo-xuq-gctxyfg medicine to control pain, unless another pain medicine was prescribed.If you have chronic conditions like diabetes, liver or kidney disease, stomach ulcers, gastrointestinal bleeding, or are taking blood thinner medicines. Be careful if you are given pain medicines, narcotics, or medicine for muscle spasm. They can causedrowsiness, and can affect your coordination, reflexes, and judgment. Do not drive or operate heavymachinery. Follow-up care Follow up with your healthcare provider, or as advised. Physical therapy or further tests may be needed. If X-rays were taken, you will be notified of any new findings that may affect your care. Call 911 Call 911 if any of the following occur: Trouble breathing Confusion Very drowsy or trouble awakening Fainting or loss of consciousness Rapid or very slow heart rate Loss of bowel or bladder control When to seek medical advice Call your healthcare provider right away if any of these occur: Pain becomes worse or spreads into your arms or legs Weakness, numbness or pain in one or both arms or legs Numbness in the groin area Difficulty walking Fever of 100.4 F (38 C) or higher, or as directed by your healthcare provider [phone] [employer]. [address] [place] [address]. All rights reserved. This information is not intended as a substitute for professional medical care. Always follow yourhealthcare professional's instructions. Additional Information VACCINATE! IT SAVES LIVES! Members of the community who have not yet received the COVID-19 vaccine and would like to receive it can visit one of [facility] vaccine clinics. There are many vaccine clinic locations within the [facility]. For locations and available times, please visit www.gettheshot.coronavirus.[place].gov/. It is important to note that some COVID mobile vaccine clinics are held outdoors and may be canceled in rainy or stormy conditions. To learn more about pediatric vaccinations (ages 5-11), we invite you to visit the [facility] webpage. [email or web address].[email or web address]/pages/[email or web address]-Xvywcqtqeif-[email or web address]-[email or web address] stions.htmlTo learn more about the COVID-19 vaccine, we invite you to visit the CDC website for a list of frequently asked questions. https://www.cdc.gov/coronavirus/2019-ncov/vaccines/faq.html [facility] Patient Portal Access Instructions: Stay connected with your healthcare team and access your personal medical information anytime with the [email or web address] Patient Portal. If you would like a full copy of your medical records please contact the [facility] Medical Records Department Friday through Friday between 8a.m. and 4:30p.m. Please follow the directions below to access the portal: 1.Access the email account you provided upon registration to the [facility].2.Look for an invitation email from [facility].3.Open the email and access the invitation link: Accept Invitation to [facility] [employer]4.Fill in the required baugh to create your account. Sign into [email or web address] VMall with your username and password that you created in the above steps to stay up to date. You can then view a summary of results, a summary of your visits, and the ability to download your summaries to your computer or send the information securely to a physician. Remember that your healthcare information is confidential, so carefully consider who you will allow to register on the [email or web address] Patient Portal for access to your information. You can also access the [facility] [employer] Patient Portal on the [employer]. Simply click on Health Records under [facility] and then click on the [employer] logo. HOW TO SAFELY DISPOSE OF PRESCRIPTION MEDICATIONS Please use one of the following methods to safely dispose of your unused medications. 1.Use a drug disposal kit: the drug disposal pouch allows you to safely discard your old and unuseddrugs. Ask your nurse to give you one when you are discharged.2.Visit a local take-back location: Many local pharmacies and police departments have programs that collect old and unwanted prescriptiondrugs. Call your local pharmacy or go to http://MMIS.[employer]/3R6Tm6o to find one close to you.3.Make use of household items: Use cat litter or old coffee grounds to dispose medications if other options arenot available. Mix your drugs with these household products, seal them in an airtight container andthrow it into the garbage. Call [facility]: [phone] to be sure your drugs can be disposed of in this way. Some medicines may require a different approach.4.Never flush your medications down the toilet. IF YOU HAVE BEEN PRESCRIBED AN OPIOIDS FOR PAIN If you have been prescribed an opioid (such as hydrocodone, oxycodone or morphine), it is critical to understand the possible side effects and risks of opioid pain medications. Even when taken as directed, opioids can have several side effects including: Tolerance, meaning you might need to take more of a medication for the same pain relief. Nausea, vomiting and/or constipation. Sleepiness, dizziness, dry mouth, confusion, depression or itching. Physical dependence, meaning you have withdrawal symptoms when a medication is stopped ? this can develop within a few days. KNOW YOUR RESPONSIBILITIES It is important to know exactly how much and how often to take the opioid pain medications you are prescribed. Never take opioids in higher amounts or more often than prescribed. Do not combine opioids with alcohol or other drugs that cause drowsiness, such as benzodiazepines, also known as benzos,including diazepam and alprazolam, muscle relaxants or sleep aids. Never sell or share prescriptionopioids. This is illegal. Store opioids in a secure place and out of reach of others (including children, family, friends and visitors). The last page(s) of this document has been signed and retained as a CHART COPY Signatures Patient Education Materials Rib Contusion Back and Neck Pain, General Medication Leaflets My discharge plan and instructions have been reviewed and explained to me and I,BARRETT LOPEZ understand my current condition and have read and understand these discharge instructions. I have received a written copy of the plan/instructions. If I have questions, I am aware that I should contact my doctor. Patient/Hr Director Signature: Date/Time: Relationship to Patient: Witness Name/Signature: Date/Time: [facility]03-17-2024 Note ORIGINAL EXAMINATION: TWO XRAY VIEWS OF THE CHEST 06/08/2023 12:56 am COMPARISON: 03/12/2023. HISTORY: ORDERING SYSTEM PROVIDED HISTORY: Reason for Exam: Chest pain FINDINGS: Stable cardiomediastinal silhouette. Decreased lung volumes. Mild streaky infrahilar and bibasilar opacity/atelectasis.. No pleural effusion or pneumothorax. No acute osseous abnormality. IMPRESSION: Low lung volumes. Mild streaky infrahilar and bibasilar opacities/atelectasis.. I have personally reviewed the images of this examination and agree with the resident's findings and interpretation. Interpreted by: Mars Sevilla Preliminary Report By: Sal Huggins Electronically signed By Mars Sevilla Dictated Date: 06/08/2023 12:57:36 AM Prelim Date: 06/08/2023 12:58:46 AM Sign Date: 06/08/2023 1:00:35 AM Ordering Provider: [facility]03-17-2024 Note ORIGINAL EXAMINATION: XRAY VIEWS OF THE LUMBAR SPINE 06/08/2023 12:55 am COMPARISON: CT abdomen and pelvis on 10/14/2022 HISTORY: ORDERING SYSTEM PROVIDED HISTORY: Reason for Exam: pain Injury. FINDINGS: There are 5 lumbar vertebrae. The lumbar spine alignment is normal. Vertebral bodies are normal in height with no fracture. The intervertebral disc spaces are maintained. There is mild endplate degenerative spur formation at L2-L3 and L3-L4. Facet joint alignment is normal. There is no spondylolysis. The sacroiliac joints are normal. IMPRESSION: No fracture or subluxation of lumbar spine. Mild degenerative disc disease. Interpreted by: Harsh Garcia MD Preliminary Report By: Harsh Garcia MD Electronically signed By Harsh Garcia MD Dictated Date: 06/08/2023 12:56:18 AM Prelim Date: 06/08/2023 12:58:02 AM Sign Date: 06/08/2023 12:58:02 AM Ordering Provider: [facility]03-17-2024 Note ORIGINAL EXAMINATION: 6 XRAY VIEWS OF THE LEFT HAND and wrist 06/08/2023 12:54 am COMPARISON: None. HISTORY: ORDERING SYSTEM PROVIDED HISTORY: Reason for Exam: pain FINDINGS: No fracture or dislocation. No radiopaque foreign body. IMPRESSION: No fracture or dislocation. Interpreted by: Mars Sevilla Preliminary Report By: Mars Sevilla Electronically signed By Mars Sevilla Dictated Date: 06/08/2023 12:55:30 AM Prelim Date: 06/08/2023 12:59:24 AM Sign Date: 06/08/2023 12:59:24 AM Ordering Provider: [facility]03-17-2024 Note ORIGINAL EXAMINATION: 4 XRAY VIEWS OF THE RIGHT RIBS 06/08/2023 12:54 am COMPARISON: Chest x-ray on 06/08/2023 HISTORY: ORDERING SYSTEM PROVIDED HISTORY: Reason for Exam: pain FINDINGS: No displaced rib fracture. Included thoracic structures are unremarkable. Degenerative changes of the spine. No radiopaque retained foreign body. IMPRESSION: No displaced rib fracture. I have personally reviewed the images of this examination, and agree with the resident's findings and interpretation. Interpreted by: Harsh Garcia MD Preliminary Report By: Sal Huggins Electronically signed By Harsh Garcia MD Dictated Date: 06/08/2023 12:56:12 AM Prelim Date: 06/08/2023 12:57:29 AM Sign Date: 06/08/2023 1:00:33 AM Ordering Provider: [facility]03-14-2024 Hospital Discharge instructions Patient Education 06/05/2023 21:47:50 Foot Contusion Foot Contusion You have a contusion. This is also called a bruise. There is swelling and some bleeding under the skin, but no broken bones. This injury generally takes a few days to a few weeks to heal. During thattime, the bruise will typically change in color from reddish, to purple-blue, to greenish-yellow, then to yellow-brown. Home care Elevate the foot to reduce pain and swelling. As much as possible, sit or lie down with the foot raised about the level of your heart. This is especially important during the first 48 hours. Ice the foot to help reduce pain and swelling. Wrap a cold source (ice pack or ice cubes in a plastic bag) in a thin towel. Apply to the bruised area for 20 minutes every 1 to 2 hours the first day. Continue this 3 to 4 times a day until the pain and swelling goes away. Unless another medicine was prescribed, you can take acetaminophen, ibuprofen, or naproxen to control pain. (If you have chronic liver or kidney disease or ever had a stomach ulcer or gastrointestinal bleeding, talk with your healthcare provider before using these medicines.) Follow up Follow up with your healthcare provider or our staff as advised. Call if you are not improving within 1 to 2 weeks. When to seek medical advice Call your healthcare provider right away if you have any of the following: Increased pain or swelling Foot or leg becomes cold, blue, numb or tingly Signs of infection: Warmth, drainage, or increased redness or pain around the bruise Inability to move the injured foot Frequent bruising for unknown reasons [id number] [employer]. [address] [place] [address]. All rights reserved. This information is not intended as a substitute for professional medical care. Always follow yourhealthcare professional's instructions. Follow Up Care 06/05/2023 20:23:48 With:JUS MARTIN Address: [address] [place] [phone] Business (1) When:5-7 days With:Follow up with primary care provider Address:Unknown When:5-7 days Comments:Follow-up with your doctor, if you do not have a doctor you may follow- up with Dr. Mg. Have repeat x-rays done in 5 to 7 days if worsening or no improvement in pain. Take Tylenol, ibuprofen for pain. [facility] 03-14-2024 Note Discharge Instructions Thank you for allowing [facility] to assist you with your healthcare needs. The following is importantdischarge information regarding your hospital visit. Diagnosis from Today's Visit Foot contusion Toe pain-swelling, right great toe What to Do Next Instructions from Your Care Team Discharge Return to Work, School, or Sports (Return to Work, School, or Sports) - Ordered -- May return to: work, Patient seen in ER today, given a dose of oxycodone while in the ER., 06/05/23 21:48:00 EDT Post Acute Orders No qualifying data available. You Need to Schedule the Following Appointments Follow Up with JUS MARTIN When Within 5-7 days Where: [address] [place] [address], [place] [phone]- [phone] Business (1) Follow Up with Follow up with primary care provider When Within 5-7 days Why: Follow-up with your doctor, if you do not have a doctor you may follow-up with Dr. Mg. Haverepeat x-rays done in 5 to 7 days if worsening or no improvement in pain. Take Tylenol, ibuprofen for pain. Allergies codeine (Swelling of throat, Hives) Latex Vicodin (Hives) lidocaine naproxen Medications Please ask your primary doctor or pharmacist before taking any other medication not listed, including over the counter drugs, herbal medications, vitamins and or supplements as they may interact withyour home medications. What How Much When Why Instructions Last Dose Unchanged aspirin (aspirin 81 mg oral tablet, chewable) 1 tab(s) by mouth Once a day with a meal Duration: 30 Days Unchanged dicyclomine (Bentyl use dicyclomine ) 20 Milligram by mouth Four (4) times a day Duration: 7 Days Unchanged dicyclomine (dicyclomine 10 mg oral capsule) 1 cap by mouth Four (4) times a day Duration: 5 Days Unchanged dicyclomine (dicyclomine 20 mg oral tablet) 1 tab(s) by mouth Four (4) times a day as needed for abdominal discomfort Diarrhea and vomiting Gastroenteritis Duration: 3 Days Unchanged famotidine (Pepcid 20 mg oral tablet) 1 tab(s) by mouth Two (2) times a day Unchanged metroNIDAZOLE (metroNIDAZOLE 500 mg oral tablet) 1 tab(s) by mouth Every 8 hours Lower GI bleeding Duration: 5 Days Unchanged omeprazole (omeprazole 20 mg oral delayed release capsule) 1 cap by mouth Once a day Please take this list to your next doctor s visit. Bring all medications you take, including over the counter medications, herbals and other supplements with you to your doctor s visit. Patients and families are reminded to discard old lists and to update any records with all medication providers or retail pharmacies. Education Materials Foot Contusion You have a contusion. This is also called a bruise. There is swelling and some bleeding under the skin, but no broken bones. This injury generally takes a few days to a few weeks to heal. During thattime, the bruise will typically change in color from reddish, to purple-blue, to greenish-yellow, then to yellow-brown. Home care Elevate the foot to reduce pain and swelling. As much as possible, sit or lie down with the foot raised about the level of your heart. This is especially important during the first 48 hours. Ice the foot to help reduce pain and swelling. Wrap a cold source (ice pack or ice cubes in a plastic bag) in a thin towel. Apply to the bruised area for 20 minutes every 1 to 2 hours the first day. Continue this 3 to 4 times a day until the pain and swelling goes away. Unless another medicine was prescribed, you can take acetaminophen, ibuprofen, or naproxen to control pain. (If you have chronic liver or kidney disease or ever had a stomach ulcer or gastrointestinal bleeding, talk with your healthcare provider before using these medicines.) Follow up Follow up with your healthcare provider or our staff as advised. Call if you are not improving within 1 to 2 weeks. When to seek medical advice Call your healthcare provider right away if you have any of the following: Increased pain or swelling Foot or leg becomes cold, blue, numb or tingly Signs of infection: Warmth, drainage, or increased redness or pain around the bruise Inability to move the injured foot Frequent bruising for unknown reasons [id number] [employer]. [address] [place] [address]. All rights reserved. This information is not intended as a substitute for professional medical care. Always follow yourhealthcare professional's instructions. Additional Information VACCINATE! IT SAVES LIVES! Members of the community who have not yet received the COVID-19 vaccine and would like to receive it can visit one of [facility] vaccine clinics. There are many vaccine clinic locations within the [facility]. For locations and available times, please visit www.[email or web address].[place].gov/. It is important to note that some COVID mobile vaccine clinics are held outdoors and may be canceled in rainy or stormy conditions. To learn more about pediatric vaccinations (ages 5-11), we invite you to visit the [facility] webpage. https://www.[facility].org/pages/9971-Umjfs-Xcxklpqpgzg-Gmkkddfggk-Brkmc-Xvl stions.htmlTo learn more about the COVID-19 vaccine, we invite you to visit the CDC website for a list of frequently asked questions. https://www.cdc.gov/coronavirus/2019-ncov/vaccines/faq.html [facility] [employer] Patient Portal Access Instructions: Stay connected with your healthcare team and access your personal medical information anytime with the [email or web address] Patient Portal. If you would like a full copy of your medical records please contact the [facility] Medical Records Department Friday through Friday between 8a.m. and 4:30p.m. Please follow the directions below to access the portal: 1.Access the email account you provided upon registration to the [facility].2.Look for an invitation email from [facility].3.Open the email and access the invitation link: Accept Invitation to [facility]4.Fill in the required baugh to create your account. Sign into [email or web address] with your username and password that you created in the above steps to stay up to date. You can then view a summary of results, a summary of your visits, and the ability to download your summaries to your computer or send the information securely to a physician. Remember that your healthcare information is confidential, so carefully consider who you will allow to register on the [email or web address] Patient Portal for access to your information. You can also access the [email or web address] Patient Portal on the [employer] priscila. Simply click on Health Records under [employer] and then click on the [employer] logo. HOW TO SAFELY DISPOSE OF PRESCRIPTION MEDICATIONS Please use one of the following methods to safely dispose of your unused medications. 1.Use a drug disposal kit: the drug disposal pouch allows you to safely discard your old and unuseddrugs. Ask your nurse to give you one when you are discharged.2.Visit a local take-back location: Many local pharmacies and police departments have programs that collect old and unwanted prescriptiondrugs. Call your local pharmacy or go to http://MMIS.[employer]/0O4Wt3i to find one close to you.3.Make use of household items: Use cat litter or old coffee grounds to dispose medications if other options arenot available. Mix your drugs with these household products, seal them in an airtight container andthrow it into the garbage. Call [facility]: [phone] to be sure your drugs can be disposed of in this way. Some medicines may require a different approach.4.Never flush your medications down the toilet. IF YOU HAVE BEEN PRESCRIBED AN OPIOIDS FOR PAIN If you have been prescribed an opioid (such as hydrocodone, oxycodone or morphine), it is critical to understand the possible side effects and risks of opioid pain medications. Even when taken as directed, opioids can have several side effects including: Tolerance, meaning you might need to take more of a medication for the same pain relief. Nausea, vomiting and/or constipation. Sleepiness, dizziness, dry mouth, confusion, depression or itching. Physical dependence, meaning you have withdrawal symptoms when a medication is stopped ? this can develop within a few days. KNOW YOUR RESPONSIBILITIES It is important to know exactly how much and how often to take the opioid pain medications you are prescribed. Never take opioids in higher amounts or more often than prescribed. Do not combine opioids with alcohol or other drugs that cause drowsiness, such as benzodiazepines, also known as benzos,including diazepam and alprazolam, muscle relaxants or sleep aids. Never sell or share prescriptionopioids. This is illegal. Store opioids in a secure place and out of reach of others (including children, family, friends and visitors). The last page(s) of this document has been signed and retained as a CHART COPY Signatures Patient Education Materials Foot Contusion Medication Leaflets My discharge plan and instructions have been reviewed and explained to me and I,BARRETT LOPEZ understand my current condition and have read and understand these discharge instructions. I have received a written copy of the plan/instructions. If I have questions, I am aware that I should contact my doctor. Patient/Hr Director Signature: Date/Time: Relationship to Patient: Witness Name/Signature: Date[facility] Note ORIGINAL EXAMINATION: THREE XRAY VIEWS OF THE RIGHT FOOT 06/05/2023 9:20 pm COMPARISON: None. HISTORY: ORDERING SYSTEM PROVIDED HISTORY: Reason for Exam: pain FINDINGS: There is a small plantar spur. There is no gross radiopaque foreign body. Joint spaces and articular surfaces are preserved and in gross anatomic alignment. There is no acute cortical discontinuity. IMPRESSION: 1. There is no acute fracture or dislocation. Interpreted by: Sam Tavera Preliminary Report By: Sam Tavera Electronically signed By Sam Tavera Dictated Date: 06/05/2023 9:31:08 PM Prelim Date: 06/05/2023 9:34:39 PM Sign Date: 06/05/2023 9:34:39 PM Ordering Provider: [facility]01-25-2024 Hospital Discharge instructions Patient Education 04/17/2023 20:24:15 Otitis Media, Antibiotic Treatment (Adult) Middle Ear Infection (Adult) You have an infection of the middle ear, the space behind the eardrum. This is also called acute otitis media (AOM). Sometimes it is caused by the common cold. This is because congestion can block the internal passage (eustachian tube) that drains fluid from the middle ear. When the middle ear fills with fluid, bacteria can grow there and cause an infection. Oral antibiotics are used to treat this illness, not ear drops. Symptoms usually start to improve within 1 to 2 days of treatment. Home care The following are general care guidelines: Finish all of the antibiotic medicine given, even though you may feel better after the first few days. You may use ouie-tle-mvqtfjg medicine, such as acetaminophen or ibuprofen, to control pain and fever, unless something else was prescribed. If you have chronic liver or kidney disease or have ever had a stomach ulcer or gastrointestinal bleeding, talk with your healthcare provider before using these medicines. Do not give aspirin to anyone under 18 years of age who has a fever. It may cause severe illness or . Follow-up care Follow up with your healthcare provider, or as advised, in 2 weeks if all symptoms have not gotten better, or if hearing doesn't go back to normal within 1 month. When to seek medical advice Call your healthcare provider right away if any of these occur: Ear pain gets worse or does not improve after 3 days of treatment Unusual drowsiness or confusion Neck pain, stiff neck, or headache Fluid or blood draining from the ear canal Fever of 100.4 F (38 C) or as advised Seizure [id number] [employer]. [address] [place] [address], [place] [address]. All rights reserved. This information is not intended as a substitute for professional medical care. Always follow yourhealthcare professional's instructions. Follow Up Care 04/17/2023 20:12:36 With:Follow up with primary care provider Address:Unknown When:2-4 days [facility] 01-25-2024 Note Discharge Instructions Thank you for allowing [facility] to assist you with your healthcare needs. The following is importantdischarge information regarding your hospital visit. Diagnosis from Today's Visit Ear infection Ear pain What to Do Next Instructions from Your Care Team No qualifying data available. Post Acute Orders No qualifying data available. You Need to Schedule the Following Appointments Follow Up with Follow up with primary care provider When Within 2-4 days Allergies codeine (Swelling of throat, Hives) Latex Vicodin (Hives) lidocaine naproxen Medications Please ask your primary doctor or pharmacist before taking any other medication not listed, including over the counter drugs, herbal medications, vitamins and or supplements as they may interact withyour home medications. What How Much When Why Instructions Last Dose New amoxicillin-clavulanate (amoxicillin-clavulanate 875 mg-125 mg oral tablet) 1 tab(s) by mouth Every 12 hours Duration: 7 Days Printed Prescription Unchanged aspirin (aspirin 81 mg oral tablet, chewable) 1 tab(s) by mouth Once a day with a meal Duration: 30 Days Unchanged dicyclomine (Bentyl use dicyclomine ) 20 Milligram by mouth Four (4) times a day Duration: 7 Days Unchanged dicyclomine (dicyclomine 10 mg oral capsule) 1 cap by mouth Four (4) times a day Duration: 5 Days Unchanged dicyclomine (dicyclomine 20 mg oral tablet) 1 tab(s) by mouth Four (4) times a day as needed for abdominal discomfort Diarrhea and vomiting Gastroenteritis Duration: 3 Days Unchanged famotidine (Pepcid 20 mg oral tablet) 1 tab(s) by mouth Two (2) times a day Unchanged metroNIDAZOLE (metroNIDAZOLE 500 mg oral tablet) 1 tab(s) by mouth Every 8 hours Lower GI bleeding Duration: 5 Days Unchanged omeprazole (omeprazole 20 mg oral delayed release capsule) 1 cap by mouth Once a day Please take this list to your next doctor s visit. Bring all medications you take, including over the counter medications, herbals and other supplements with you to your doctor s visit. Patients and families are reminded to discard old lists and to update any records with all medication providers or retail pharmacies. Education Materials Middle Ear Infection (Adult) You have an infection of the middle ear, the space behind the eardrum. This is also called acute otitis media (AOM). Sometimes it is caused by the common cold. This is because congestion can block the internal passage (eustachian tube) that drains fluid from the middle ear. When the middle ear fills with fluid, bacteria can grow there and cause an infection. Oral antibiotics are used to treat this illness, not ear drops. Symptoms usually start to improve within 1 to 2 days of treatment. Home care The following are general care guidelines: Finish all of the antibiotic medicine given, even though you may feel better after the first few days. You may use mypx-aln-lkhezhz medicine, such as acetaminophen or ibuprofen, to control pain and fever, unless something else was prescribed. If you have chronic liver or kidney disease or have ever had a stomach ulcer or gastrointestinal bleeding, talk with your healthcare provider before using these medicines. Do not give aspirin to anyone under 18 years of age who has a fever. It may cause severe illness or . Follow-up care Follow up with your healthcare provider, or as advised, in 2 weeks if all symptoms have not gotten better, or if hearing doesn't go back to normal within 1 month. When to seek medical advice Call your healthcare provider right away if any of these occur: Ear pain gets worse or does not improve after 3 days of treatment Unusual drowsiness or confusion Neck pain, stiff neck, or headache Fluid or blood draining from the ear canal Fever of 100.4 F (38 C) or as advised Seizure [id number] [employer]. [address] [place] [address], [place] [address]. All rights reserved. This information is not intended as a substitute for professional medical care. Always follow yourhealthcare professional's instructions. Additional Information VACCINATE! IT SAVES LIVES! Members of the community who have not yet received the COVID-19 vaccine and would like to receive it can visit one of [facility] vaccine clinics. There are many vaccine clinic locations within the [facility]. For locations and available times, please visit www.[email or web address].[place].gov/. It is important to note that some COVID mobile vaccine clinics are held outdoors and may be canceled in rainy or stormy conditions. To learn more about pediatric vaccinations (ages 5-11), we invite you to visit the [facility] webpage. https://www.[facility].org/pages/7114-Kydcd-Icvdzgypdzq-Inoenvbulx-Onjwo-Dhi stions.htmlTo learn more about the COVID-19 vaccine, we invite you to visit the CDC website for a list of frequently asked questions. https://www.cdc.gov/coronavirus/2019-ncov/vaccines/faq.html [email or web address] Patient Portal Access Instructions: Stay connected with your healthcare team and access your personal medical information anytime with the [email or web address] Patient Portal. If you would like a full copy of your medical records please contact the [facility] Medical Records Department Friday through Friday between 8a.m. and 4:30p.m. Please follow the directions below to access the portal: 1.Access the email account you provided upon registration to the hospital.2.Look for an invitation email from [facility].3.Open the email and access the invitation link: Accept Invitation to [email or web address].Fill in the required baugh to create your account. Sign into [email or web address] with your username and password that you created in the above steps to stay up to date. You can then view a summary of results, a summary of your visits, and the ability to download your summaries to your computer or send the information securely to a physician. Remember that your healthcare information is confidential, so carefully consider who you will allow to register on the [email or web address] Patient Portal for access to your information. You can also access the [employer] Patient Portal on the [employer] priscila. Simply click on Health Records under [employer] and then click on the [employer] logo. HOW TO SAFELY DISPOSE OF PRESCRIPTION MEDICATIONS Please use one of the following methods to safely dispose of your unused medications. 1.Use a drug disposal kit: the drug disposal pouch allows you to safely discard your old and unuseddrugs. Ask your nurse to give you one when you are discharged.2.Visit a local take-back location: Many local pharmacies and police departments have programs that collect old and unwanted prescriptiondrugs. Call your local pharmacy or go to http://MMIS.[employer]/6X3Wr9j to find one close to you.3.Make use of household items: Use cat litter or old coffee grounds to dispose medications if other options arenot available. Mix your drugs with these household products, seal them in an airtight container andthrow it into the garbage. Call [facility]: [phone] to be sure your drugs can be disposed of in this way. Some medicines may require a different approach.4.Never flush your medications down the toilet. IF YOU HAVE BEEN PRESCRIBED AN OPIOIDS FOR PAIN If you have been prescribed an opioid (such as hydrocodone, oxycodone or morphine), it is critical to understand the possible side effects and risks of opioid pain medications. Even when taken as directed, opioids can have several side effects including: Tolerance, meaning you might need to take more of a medication for the same pain relief. Nausea, vomiting and/or constipation. Sleepiness, dizziness, dry mouth, confusion, depression or itching. Physical dependence, meaning you have withdrawal symptoms when a medication is stopped ? this can develop within a few days. KNOW YOUR RESPONSIBILITIES It is important to know exactly how much and how often to take the opioid pain medications you are prescribed. Never take opioids in higher amounts or more often than prescribed. Do not combine opioids with alcohol or other drugs that cause drowsiness, such as benzodiazepines, also known as benzos,including diazepam and alprazolam, muscle relaxants or sleep aids. Never sell or share prescriptionopioids. This is illegal. Store opioids in a secure place and out of reach of others (including children, family, friends and visitors). The last page(s) of this document has been signed and retained as a CHART COPY Signatures Patient Education Materials Otitis Media, Antibiotic Treatment (Adult) Medication Leaflets My discharge plan and instructions have been reviewed and explained to me and I,BARRETT LOPEZ understand my current condition and have read and understand these discharge instructions. I have received a written copy of the plan/instructions. If I have questions, I am aware that I should contact my doctor. Patient/Hr Director Signature: Date/Time: Relationship to Patient: Witness Name/Signature: Date/Time: [facility]12-20-2023 Hospital Discharge instructions Patient Education 03/12/2023 21:49:57 Chest Pain, Uncertain Cause Uncertain Causes of Chest Pain Chest pain can happen for a number of reasons. Sometimes the cause can't be determined. If your condition does not seem serious, and your pain does not appear to be coming from your heart, your healthcare provider may recommend watching it closely. Sometimes the signs of a serious problem take moretime to appear. Many problems not related to your heart can cause chest pain. These include: Musculoskeletal. Costochondritis is an inflammation of the tissues around the ribs that can occur from trauma or overuse injuries, or a strain of the muscles of the chest wall Respiratory. Pneumonia, collapsed lung (pneumothorax), or inflammation of the lining of the chest and lungs (pleurisy) Gastrointestinal. Esophageal reflux, heartburn, ulcers, or gallbladder disease Anxiety and panic disorders Nerve compression and inflammation Rare miscellaneous problems such as aortic aneurysm (a swelling of the large artery coming out of the heart) or pulmonary embolism (a blood clot in the lungs) Home care After your visit, follow these recommendations: Rest today and avoid strenuous activity. Take any prescribed medicine as directed. Be aware of any recurrent chest pain and notice any changes Follow-up care Follow up with your healthcare provider if you do not start to feel better within 24 hours, or as advised. Call 911 Call 911 if any of these occur: A change in the type of pain: if it feels different, becomes more severe, lasts longer, or begins to spread into your shoulder, arm, neck, jaw or back Shortness of breath or increased pain with breathing Weakness, dizziness, or fainting Rapid heart beat Crushing sensation in your chest When to seek medical advice Call your healthcare provider right away if any of the following occur: Cough with dark colored sputum (phlegm) or blood Fever of 100.4 F (38 C) or higher, or as directed by your healthcare provider Swelling, pain or redness in one leg [id number] [employer]. [address] [place] [address]. All rights reserved. This information is not intended as a substitute for professional medical care. Always follow yourhealthcare professional's instructions. Follow Up Care 03/12/2023 19:45:15 With:Follow up with primary care provider Address:Unknown When:2-4 days Comments:Schedule appointment for close follow-up.Resume routine medications.Use Tylenol, Advil or Aleve forpain as needed.Return to the ED if symptoms worsen. [facility] 12-20-2023 Note Discharge Instructions Thank you for allowing [facility] to assist you with your healthcare needs. The following is importantdischarge information regarding your hospital visit. Diagnosis from Today's Visit Chest pain What to Do Next Instructions from Your Care Team No qualifying data available. Post Acute Orders No qualifying data available. You Need to Schedule the Following Appointments Follow Up with Follow up with primary care provider When Within 2-4 days Why: Schedule appointment for close follow-up. Resume routine medications. Use Tylenol, Advil or Aleve for pain as needed. Return to the ED if symptoms worsen. Allergies codeine (Swelling of throat, Hives) Latex Vicodin (Hives) lidocaine naproxen Medications Please ask your primary doctor or pharmacist before taking any other medication not listed, including over the counter drugs, herbal medications, vitamins and or supplements as they may interact withyour home medications. What How Much When Why Instructions Last Dose Unchanged aspirin (aspirin 81 mg oral tablet, chewable) 1 tab(s) by mouth Once a day with a meal Duration: 30 Days Unchanged dicyclomine (Bentyl use dicyclomine ) 20 Milligram by mouth Four (4) times a day Duration: 7 Days Unchanged dicyclomine (dicyclomine 10 mg oral capsule) 1 cap by mouth Four (4) times a day Duration: 5 Days Unchanged dicyclomine (dicyclomine 20 mg oral tablet) 1 tab(s) by mouth Four (4) times a day as needed for abdominal discomfort Diarrhea and vomiting Gastroenteritis Duration: 3 Days Unchanged famotidine (Pepcid 20 mg oral tablet) 1 tab(s) by mouth Two (2) times a day Unchanged metroNIDAZOLE (metroNIDAZOLE 500 mg oral tablet) 1 tab(s) by mouth Every 8 hours Lower GI bleeding Duration: 5 Days Unchanged omeprazole (omeprazole 20 mg oral delayed release capsule) 1 cap by mouth Once a day Please take this list to your next doctor s visit. Bring all medications you take, including over the counter medications, herbals and other supplements with you to your doctor s visit. Patients and families are reminded to discard old lists and to update any records with all medication providers or retail pharmacies. Education Materials Uncertain Causes of Chest Pain Chest pain can happen for a number of reasons. Sometimes the cause can't be determined. If your condition does not seem serious, and your pain does not appear to be coming from your heart, your healthcare provider may recommend watching it closely. Sometimes the signs of a serious problem take moretime to appear. Many problems not related to your heart can cause chest pain. These include: Musculoskeletal. Costochondritis is an inflammation of the tissues around the ribs that can occur from trauma or overuse injuries, or a strain of the muscles of the chest wall Respiratory. Pneumonia, collapsed lung (pneumothorax), or inflammation of the lining of the chest and lungs (pleurisy) Gastrointestinal. Esophageal reflux, heartburn, ulcers, or gallbladder disease Anxiety and panic disorders Nerve compression and inflammation Rare miscellaneous problems such as aortic aneurysm (a swelling of the large artery coming out of the heart) or pulmonary embolism (a blood clot in the lungs) Home care After your visit, follow these recommendations: Rest today and avoid strenuous activity. Take any prescribed medicine as directed. Be aware of any recurrent chest pain and notice any changes Follow-up care Follow up with your healthcare provider if you do not start to feel better within 24 hours, or as advised. Call 911 Call 911 if any of these occur: A change in the type of pain: if it feels different, becomes more severe, lasts longer, or begins to spread into your shoulder, arm, neck, jaw or back Shortness of breath or increased pain with breathing Weakness, dizziness, or fainting Rapid heart beat Crushing sensation in your chest When to seek medical advice Call your healthcare provider right away if any of the following occur: Cough with dark colored sputum (phlegm) or blood Fever of 100.4 F (38 C) or higher, or as directed by your healthcare provider Swelling, pain or redness in one leg [id number] [employer]. [address] [place] [address]. All rights reserved. This information is not intended as a substitute for professional medical care. Always follow yourhealthcare professional's instructions. Additional Information VACCINATE! IT SAVES LIVES! Members of the community who have not yet received the COVID-19 vaccine and would like to receive it can visit one of [facility] vaccine clinics. There are many vaccine clinic locations within the [facility]. For locations and available times, please visit www.[email or web address].[place].gov/. It is important to note that some COVID mobile vaccine clinics are held outdoors and may be canceled in rainy or stormy conditions. To learn more about pediatric vaccinations (ages 5-11), we invite you to visit the [facility] webpage. [email or web address]/[email or web address] learn more about the COVID-19 vaccine, we invite you to visit the CDC website for a list of frequently asked questions. https://www.cdc.gov/coronavirus/2019-ncov/vaccines/faq.html [facility] [employer] Patient Portal Access Instructions: Stay connected with your healthcare team and access your personal medical information anytime with the [facility] [employer] Patient Portal. If you would like a full copy of your medical records please contact the [facility] Medical Records Department Friday through Friday between 8a.m. and 4:30p.m. Please follow the directions below to access the portal: 1.Access the email account you provided upon registration to the [facility].2.Look for an invitation email from [facility].3.Open the email and access the invitation link: Accept Invitation to [email or web address].Fill in the required baugh to create your account. Sign into [email or web address] with your username and password that you created in the above steps to stay up to date. You can then view a summary of results, a summary of your visits, and the ability to download your summaries to your computer or send the information securely to a physician. Remember that your healthcare information is confidential, so carefully consider who you will allow to register on the [employer] Patient Portal for access to your information. You can also access the [employer] Patient Portal on the [employer] priscila. Simply click on Health Records under [facility] and then click on the [employer] logo. HOW TO SAFELY DISPOSE OF PRESCRIPTION MEDICATIONS Please use one of the following methods to safely dispose of your unused medications. 1.Use a drug disposal kit: the drug disposal pouch allows you to safely discard your old and unuseddrugs. Ask your nurse to give you one when you are discharged.2.Visit a local take-back location: Many local pharmacies and police departments have programs that collect old and unwanted prescriptiondrugs. Call your local pharmacy or go to http://MMIS.[employer]/1Z4Uu7u to find one close to you.3.Make use of household items: Use cat litter or old coffee grounds to dispose medications if other options arenot available. Mix your drugs with these household products, seal them in an airtight container andthrow it into the garbage. Call [facility]: [phone] to be sure your drugs can be disposed of in this way. Some medicines may require a different approach.4.Never flush your medications down the toilet. IF YOU HAVE BEEN PRESCRIBED AN OPIOIDS FOR PAIN If you have been prescribed an opioid (such as hydrocodone, oxycodone or morphine), it is critical to understand the possible side effects and risks of opioid pain medications. Even when taken as directed, opioids can have several side effects including: Tolerance, meaning you might need to take more of a medication for the same pain relief. Nausea, vomiting and/or constipation. Sleepiness, dizziness, dry mouth, confusion, depression or itching. Physical dependence, meaning you have withdrawal symptoms when a medication is stopped ? this can develop within a few days. KNOW YOUR RESPONSIBILITIES It is important to know exactly how much and how often to take the opioid pain medications you are prescribed. Never take opioids in higher amounts or more often than prescribed. Do not combine opioids with alcohol or other drugs that cause drowsiness, such as benzodiazepines, also known as benzos,including diazepam and alprazolam, muscle relaxants or sleep aids. Never sell or share prescriptionopioids. This is illegal. Store opioids in a secure place and out of reach of others (including children, family, friends and visitors). The last page(s) of this document has been signed and retained as a CHART COPY Signatures Patient Education Materials Chest Pain, Uncertain Cause Medication Leaflets My discharge plan and instructions have been reviewed and explained to me and I,BARRETT LOPEZ understand my current condition and have read and understand these discharge instructions. I have received a written copy of the plan/instructions. If I have questions, I am aware that I should contact my doctor. Patient/Hr Director Signature: Date/Time: Relationship to Patient: Witness Name/Signature: Date/Time: [facility]12-20-2023 Note ORIGINAL EXAMINATION: ONE XRAY VIEW OF THE CHEST03/12/2023 8:21 pm COMPARISON: Chest x-ray 04/08/2022, CT abdomen and pelvis 10/14/2022 HISTORY: ORDERING SYSTEM PROVIDED HISTORY: Reason for Exam: chest pain FINDINGS: No focal consolidation or pulmonary edema. No pleural effusion or visible pneumothorax. Cardiomediastinal contours are within normal limits. Degenerative changes of the visible spine. IMPRESSION: No acute cardiopulmonary process. I have personally reviewed the images of this examination and agree with the resident's findings and interpretation. Interpreted by: Eldon Watkins MD Preliminary Report By: Otis Norman Electronically signed By Eldon Watkins MD Dictated Date: 03/12/2023 8:30:08 PM Prelim Date: 03/12/2023 8:31:27 PM Sign Date: 03/12/2023 8:48:16 PM [facility]ing [facility] Sinus rhythm Baseline wander in lead(s) II Electronic Signature: CARMEN LUNDBERG MD 03/12/2023 19:55:35[facility] 11-26-2023 Hospital Discharge instructions Patient Education 02/16/2023 18:34:30 Sciatica Sciatica Sciatica is a condition that causes pain in the lower back that spreads down into the buttock, hip,and leg. Sometimes the leg pain can happen without any back pain. Sciatica happens when a spinal nerve is irritated or has pressure put on it as comes out of the spinal canal in the lower back. This most often happens when a bulge or rupture of a nearby spinal disk presses on the nerve. Sciatica can also be caused by a narrowing of the spinal canal (spinal stenosis) or spasm of the muscle in the buttocks that the sciatic nerve passes through (pyriform muscle). Sciatica is also called lumbar radiculopathy. Sciatica may begin after a sudden twisting or bending force, such as in a car accident. Or it can happen after a simple awkward movement. In either case, muscle spasm often also happens. Muscle spasmmakes the pain worse. A healthcare provider makes a diagnosis of sciatica from your symptoms and a physical exam. Unless you had an injury from a car accident or fall, you usually won t have X-rays taken at this time. This is because the nerves and disks in your back can t be seen on an X-ray. If the provider sees signsof a compressed nerve, you will need to schedule an MRI scan as an outpatient. Signs of a compressed nerve include loss of strength in a leg. Most sciatica gets better with medicine, exercise, and physical therapy. If your symptoms continue after at least 3 months of medical treatment, you may need surgery or injections to your lower back. Home care Follow these tips when caring for yourself at home: You may need to stay in bed the first few days. But as soon as possible, begin sitting up or walking. This will help you avoid problems that come from staying in bed for long periods. When in bed, try to find a position that is comfortable. A firm mattress is best. Try lying flat onyour back with pillows under your knees. You can also try lying on your side with your knees bent up toward your chest and a pillow between your knees. Avoid sitting for long periods. This puts more stress on your lower back than standing or walking. Use heat from a hot shower, hot bath, or heating pad to help ease pain. Massage can also help. You can also try using an ice pack. You can make your own ice pack by putting ice cubes in a plastic bag. Wrap the bag in a thin towel. Try both heat and cold to see which works best. Use the method that feels best for 20 minutes several times a day. You may use acetaminophen or ibuprofen to ease pain, unless another pain medicine was prescribed. Note: If you have chronic liver or kidney disease, talk with your healthcare provider before taking these medicines. Also talk with your provider if you ve had a stomach ulcer or gastrointestinal bleeding. Use safe lifting methods. Don t lift anything heavier than 15 pounds until all of the pain is gone. Follow-up care Follow up with your healthcare provider, or as advised. You may need physical therapy or additionaltests. If X-rays were taken, a radiologist will look at them. You will be told of any new findings that may affect your care. When to seek medical advice Call your healthcare provider right away if any of these occur: Pain gets worse even after taking prescribed medicine Weakness or numbness in 1 or both legs or hips Numbness in your groin or genital area You can t control your bowel or bladder Fever Redness or swelling over your back or spine [id number] [employer]. [address] [place] [address]. All rights reserved. This information is not intended as a substitute for professional medical care. Always follow yourhealthcare professional's instructions. Follow Up Care 02/16/2023 17:46:20 With:Go to emergency room if symptoms worsen Address:Unknown When:2-4 days With:Follow up with primary care provider Address:Unknown When:2-4 days [facility] 11-26-2023 Note Discharge Instructions Thank you for allowing [facility] to assist you with your healthcare needs. The following is importantdischarge information regarding your hospital visit. Diagnosis from Today's Visit Leg pain-swelling Sciatica What to Do Next Instructions from Your Care Team Take anti-inflammatories as needed, ibuprofen. Take Flexeril only as needed for severe pain. Do nottake Flexeril before operating heavy machinery. Recommend heat over the area if not working ice. Follow-up with your primary care provider. Return emergency department immediately if you develop worsening pain, loss of bowel or bladder function, numbness, weakness, or any other care concern. No qualifying data available. Post Acute Orders No qualifying data available. You Need to Schedule the Following Appointments Follow Up with Go to emergency room if symptoms worsen When Within 2-4 days Follow Up with Follow up with primary care provider When Within 2-4 days Allergies codeine (Swelling of throat, Hives) Latex Vicodin (Hives) lidocaine naproxen Medications Please ask your primary doctor or pharmacist before taking any other medication not listed, including over the counter drugs, herbal medications, vitamins and or supplements as they may interact withyour home medications. What How Much When Why Instructions Last Dose New cyclobenzaprine (cyclobenzaprine 10 mg oral tablet) 1 tab(s) by mouth Three (3) times a day Duration: 7 Days Printed Prescription Unchanged aspirin (aspirin 81 mg oral tablet, chewable) 1 tab(s) by mouth Once a day with a meal Duration: 30 Days Unchanged dicyclomine (Bentyl use dicyclomine ) 20 Milligram by mouth Four (4) times a day Duration: 7 Days Unchanged dicyclomine (dicyclomine 10 mg oral capsule) 1 cap by mouth Four (4) times a day Duration: 5 Days Unchanged dicyclomine (dicyclomine 20 mg oral tablet) 1 tab(s) by mouth Four (4) times a day as needed for abdominal discomfort Diarrhea and vomiting Gastroenteritis Duration: 3 Days Unchanged famotidine (Pepcid 20 mg oral tablet) 1 tab(s) by mouth Two (2) times a day Unchanged metroNIDAZOLE (metroNIDAZOLE 500 mg oral tablet) 1 tab(s) by mouth Every 8 hours Lower GI bleeding Duration: 5 Days Unchanged omeprazole (omeprazole 20 mg oral delayed release capsule) 1 cap by mouth Once a day Please take this list to your next doctor s visit. Bring all medications you take, including over the counter medications, herbals and other supplements with you to your doctor s visit. Patients and families are reminded to discard old lists and to update any records with all medication providers or retail pharmacies. Medication Leaflets cyclobenzaprine (blanca balderas) Snow De What is the most important information I should know about cyclobenzaprine? You should not use cyclobenzaprine if you have a thyroid disorder, heart block, congestive heart failure, a heart rhythm disorder, or you have recently had a heart attack. Do not use cyclobenzaprine if you have taken an MAO inhibitor in the past 14 days, such as isocarboxazid, linezolid, phenelzine, rasagiline, selegiline, or tranylcypromine. What is cyclobenzaprine? Cyclobenzaprine is a muscle relaxant. It works by blocking nerve impulses (or pain sensations) thatare sent to your brain. Cyclobenzaprine is used together with rest and physical therapy to relieve muscle spasms caused by painful conditions such as an injury. Cyclobenzaprine may also be used for purposes not listed in this medication guide. What should I discuss with my healthcare provider before taking cyclobenzaprine? You should not use cyclobenzaprine if you are allergic to it, or if you have: a thyroid disorder; heart block, heart rhythm disorder, congestive heart failure; or if you have recently had a heart attack. Cyclobenzaprine is not approved for use by anyone younger than 15 years old. Do not use cyclobenzaprine if you have taken an MAO inhibitor in the past 14 days. A dangerous druginteraction could occur. MAO inhibitors include isocarboxazid, linezolid, phenelzine, rasagiline, selegiline, and tranylcypromine. Some medicines can interact with cyclobenzaprine and cause a serious condition called serotonin syndrome. Be sure your doctor knows if you also take stimulant medicine, opioid medicine, herbal products, or medicine for depression, mental illness, Parkinson's disease, migraine headaches, serious infections, or prevention of nausea and vomiting. Ask your doctor before making any changes in how or when you take your medications. Tell your doctor if you have ever had: liver disease; glaucoma; enlarged prostate; or problems with urination. It is not known whether this medicine will harm an unborn baby. Tell your doctor if you are or plan to become . It may not be safe to breast-feed while using this medicine. Ask your doctor about any risk. Older adults may be more sensitive to the effects of this medicine. How should I take cyclobenzaprine? Follow all directions on your prescription label and read all medication guides or instruction sheets. Your doctor may occasionally change your dose. Use the medicine exactly as directed. Cyclobenzaprine is usually taken once daily for only 2 or 3 weeks. Follow your doctor's dosing instructions very carefully. Swallow the capsule whole and do not crush, chew, break, or open it. Take the medicine at the same time each day. Call your doctor if your symptoms do not improve after 3 weeks, or if they get worse. Store at room temperature away from moisture, heat, and light. What happens if I miss a dose? Take the medicine as soon as you can, but skip the missed dose if it is almost time for your next dose. Do not take two doses at one time. What happens if I overdose? Seek emergency medical attention or call the Poison Help line at . An overdose of cyclobenzaprine can be fatal. Overdose symptoms may include severe drowsiness, vomiting, fast heartbeats, tremors, agitation, or hallucinations. What should I avoid while taking cyclobenzaprine? Avoid driving or hazardous activity until you know how this medicine will affect you. Your reactions could be impaired. Avoid drinking alcohol. Dangerous side effects could occur. What are the possible side effects of cyclobenzaprine? Get emergency medical help if you have signs of an allergic reaction: hives; difficult breathing; swelling of your face, lips, tongue, or throat. Stop using cyclobenzaprine and call your doctor at once if you have: fast or irregular heartbeats; chest pain or pressure, pain spreading to your jaw or shoulder; or sudden numbness or weakness (especially on one side of the body), slurred speech, balance problems. Seek medical attention right away if you have symptoms of serotonin syndrome, such as: agitation, hallucinations, fever, sweating, shivering, fast heart rate, muscle stiffness, twitching, loss of coordination, nausea, vomiting, or diarrhea. Serious side effects may be more likely in older adults. Common side effects may include: drowsiness, tiredness; headache, dizziness; dry mouth; or upset stomach, nausea, constipation. This is not a complete list of side effects and others may occur. Call your doctor for medical advice about side effects. You may report side effects to FDA at 2-817-UOJ-5596. What other drugs will affect cyclobenzaprine? Using cyclobenzaprine with other drugs that make you drowsy can worsen this effect. Ask your doctorbefore using opioid medication, a sleeping pill, a muscle relaxer, or medicine for anxiety or seizures. Tell your doctor about all your other medicines, especially: bupropion (Zyban, for smoking cessation); meperidine; tramadol; verapamil; cold or allergy medicine that contains an antihistamine (Benadryl and others); medicine to treat Parkinson's disease; medicine to treat excess stomach acid, stomach ulcer, motion sickness, or irritable bowel syndrome; medicine to treat overactive bladder; or bronchodilator asthma medication. This list is not complete. Other drugs may affect cyclobenzaprine, including prescription and iulm-kse-kxfsyvm medicines, vitamins, and herbal products. Not all possible drug interactions are listed here. Where can I get more information? Your pharmacist can provide more information about cyclobenzaprine. Remember, keep this and all other medicines out of the reach of children, never share your medicines with others, and use this medication only for the indication prescribed. Every effort has been made to ensure that the information provided by [employer]. ('[employer]') is accurate, up-to-date, and complete, but no guarantee is made to that effect. Drug information contained herein may be time sensitive. [employer] information has been compiled for use by healthcare practitioners and consumers in the [place] and therefore [employer] does not warrant that uses outside of the [place] are appropriate, unless specifically indicated otherwise. [employer] drug information does not endorse drugs, diagnose patients or recommend therapy. [employer] drug information isan informational resource designed to assist licensed healthcare practitioners in caring for their p atients and/or to serve consumers viewing this service as a supplement to, and not a substitute for, the expertise, skill, knowledge and judgment of healthcare practitioners. The absence of a warningfor a given drug or drug combination in no way should be construed to indicate that the drug or drug combination is safe, effective or appropriate for any given patient. [facility] does not assume any responsibility for any aspect of healthcare administered with the aid of information [facility] provides. The information contained herein is not intended to cover all possible uses, directions, precautions, warnings, drug interactions, allergic reactions, or adverse effects. If you have questions about the drugs you are taking, check with your doctor, nurse or pharmacist. Copyright 8395-2353 [facility] [employer]. Version: 7.01. Revision Date: 10/25/2022. Education Materials Sciatica Sciatica is a condition that causes pain in the lower back that spreads down into the buttock, hip,and leg. Sometimes the leg pain can happen without any back pain. Sciatica happens when a spinal nerve is irritated or has pressure put on it as comes out of the spinal canal in the lower back. This most often happens when a bulge or rupture of a nearby spinal disk presses on the nerve. Sciatica can also be caused by a narrowing of the spinal canal (spinal stenosis) or spasm of the muscle in the buttocks that the sciatic nerve passes through (pyriform muscle). Sciatica is also called lumbar radiculopathy. Sciatica may begin after a sudden twisting or bending force, such as in a car accident. Or it can happen after a simple awkward movement. In either case, muscle spasm often also happens. Muscle spasmmakes the pain worse. A healthcare provider makes a diagnosis of sciatica from your symptoms and a physical exam. Unless you had an injury from a car accident or fall, you usually won t have X-rays taken at this time. This is because the nerves and disks in your back can t be seen on an X-ray. If the provider sees signsof a compressed nerve, you will need to schedule an MRI scan as an outpatient. Signs of a compressed nerve include loss of strength in a leg. Most sciatica gets better with medicine, exercise, and physical therapy. If your symptoms continue after at least 3 months of medical treatment, you may need surgery or injections to your lower back. Home care Follow these tips when caring for yourself at home: You may need to stay in bed the first few days. But as soon as possible, begin sitting up or walking. This will help you avoid problems that come from staying in bed for long periods. When in bed, try to find a position that is comfortable. A firm mattress is best. Try lying flat onyour back with pillows under your knees. You can also try lying on your side with your knees bent up toward your chest and a pillow between your knees. Avoid sitting for long periods. This puts more stress on your lower back than standing or walking. Use heat from a hot shower, hot bath, or heating pad to help ease pain. Massage can also help. You can also try using an ice pack. You can make your own ice pack by putting ice cubes in a plastic bag. Wrap the bag in a thin towel. Try both heat and cold to see which works best. Use the method that feels best for 20 minutes several times a day. You may use acetaminophen or ibuprofen to ease pain, unless another pain medicine was prescribed. Note: If you have chronic liver or kidney disease, talk with your healthcare provider before taking these medicines. Also talk with your provider if you ve had a stomach ulcer or gastrointestinal bleeding. Use safe lifting methods. Don t lift anything heavier than 15 pounds until all of the pain is gone. Follow-up care Follow up with your healthcare provider, or as advised. You may need physical therapy or additionaltests. If X-rays were taken, a radiologist will look at them. You will be told of any new findings that may affect your care. When to seek medical advice Call your healthcare provider right away if any of these occur: Pain gets worse even after taking prescribed medicine Weakness or numbness in 1 or both legs or hips Numbness in your groin or genital area You can t control your bowel or bladder Fever Redness or swelling over your back or spine [id number] [employer]. [address] [place] [address], [place] [address]. All rights reserved. This information is not intended as a substitute for professional medical care. Always follow yourhealthcare professional's instructions. Additional Information VACCINATE! IT SAVES LIVES! Members of the community who have not yet received the COVID-19 vaccine and would like to receive it can visit one of [facility] vaccine clinics. There are many vaccine clinic locations within the [facility]. For locations and available times, please visit www.[email or web address].gov/. It is important to note that some COVID mobile vaccine clinics are held outdoors and may be canceled in rainy or stormy conditions. To learn more about pediatric vaccinations (ages 5-11), we invite you to visit the [facility] webpage. https://www.[email or web address].org/pages/6324-[email or web address]-Ybqvmkghyl-[email or web address] stions.htmlTo learn more about the COVID-19 vaccine, we invite you to visit the CDC website for a list of frequently asked questions. https://www.cdc.gov/coronavirus/2019-ncov/vaccines/faq.html [email or web address] Patient Portal Access Instructions: Stay connected with your healthcare team and access your personal medical information anytime with the [email or web address] Patient Portal. If you would like a full copy of your medical records please contact the [facility] Medical Records Department Friday through Friday between 8a.m. and 4:30p.m. Please follow the directions below to access the portal: 1.Access the email account you provided upon registration to the [facility].2.Look for an invitation email from [facility].3.Open the email and access the invitation link: Accept Invitation to [email or web address].Fill in the required baugh to create your account. Sign into [email or web address] with your username and password that you created in the above steps to stay up to date. You can then view a summary of results, a summary of your visits, and the ability to download your summaries to your computer or send the information securely to a physician. Remember that your healthcare information is confidential, so carefully consider who you will allow to register on the [email or web address] Patient Portal for access to your information. You can also access the [email or web address] Patient Portal on the [employer]. Simply click on Health Records under [facility] and then click on the [employer] logo. HOW TO SAFELY DISPOSE OF PRESCRIPTION MEDICATIONS Please use one of the following methods to safely dispose of your unused medications. 1.Use a drug disposal kit: the drug disposal pouch allows you to safely discard your old and unuseddrugs. Ask your nurse to give you one when you are discharged.2.Visit a local take-back location: Many local pharmacies and police departments have programs that collect old and unwanted prescriptiondrugs. Call your local pharmacy or go to http://bit.[employer]/2S6Jf2b to find one close to you.3.Make use of household items: Use cat litter or old coffee grounds to dispose medications if other options arenot available. Mix your drugs with these household products, seal them in an airtight container andthrow it into the garbage. Call [facility]: [phone] to be sure your drugs can be disposed of in this way. Some medicines may require a different approach.4.Never flush your medications down the toilet. IF YOU HAVE BEEN PRESCRIBED AN OPIOIDS FOR PAIN If you have been prescribed an opioid (such as hydrocodone, oxycodone or morphine), it is critical to understand the possible side effects and risks of opioid pain medications. Even when taken as directed, opioids can have several side effects including: Tolerance, meaning you might need to take more of a medication for the same pain relief. Nausea, vomiting and/or constipation. Sleepiness, dizziness, dry mouth, confusion, depression or itching. Physical dependence, meaning you have withdrawal symptoms when a medication is stopped ? this can develop within a few days. KNOW YOUR RESPONSIBILITIES It is important to know exactly how much and how often to take the opioid pain medications you are prescribed. Never take opioids in higher amounts or more often than prescribed. Do not combine opioids with alcohol or other drugs that cause drowsiness, such as benzodiazepines, also known as benzos,including diazepam and alprazolam, muscle relaxants or sleep aids. Never sell or share prescriptionopioids. This is illegal. Store opioids in a secure place and out of reach of others (including children, family, friends and visitors). The last page(s) of this document has been signed and retained as a CHART COPY Signatures Patient Education Materials Sciatica Medication Leaflets cyclobenzaprine My discharge plan and instructions have been reviewed and explained to me and I,BARRETT LOPEZ understand my current condition and have read and understand these discharge instructions. I have received a written copy of the plan/instructions. If I have questions, I am aware that I should contact my doctor. Patient/Hr Director Signature: Date/Time: Relationship to Patient: Witness Name/Signature: Date/Time: [facility] [id number] Hospital Discharge instructions Patient Education 12/18/2022 01:15:16 Gastritis (Adult) Gastritis (Adult) Gastritis is inflammation and irritation of the stomach lining. You can have it for a short time (acute) or be long lasting (chronic). Infection with bacteria called H pylori most often causes gastritis. More than a third of people in the [place] have these bacteria in their bodies. In many cases, H pylori causes no problems or symptoms. In some people, though, the infection irritates the stomach lining and causes gastritis. H. pylori may be diagnosed through blood, stool, or breath tests, we well as through biopsy during an endoscopy. Other causes of stomach irritation include drinking alcohol, smoking or chewing tobacco, or taking pain-relieving medicines called NSAIDs (such as aspirin or ibuprofen). Certain drugs (such as cocaine) and immune conditions can also cause gastritis. Symptoms of gastritis can include: Belly pain or bloating Feeling full quickly Loss of appetite Nausea or vomiting Vomiting blood or having black stools Feeling more tired than usual An inflamed and irritated stomach lining is more likely to develop a sore called an ulcer. To help prevent this, gastritis should be treated. Home care If needed, our healthcare provider may prescribe medicines. If you have H pylori infection, treating it will likely relieve your symptoms. Other changes can help reduce stomach irritation and help itheal. If you have been prescribed medicines for H pylori infection, take them as directed. Take all of the medicine until it is finished or your healthcare provider tells you to stop, even if you feel better. Your healthcare provider may advise you not to take NSAIDs. If you take daily aspirin for your heart or other medical reasons, do not stop without talking to your healthcare provider first. Don't drink alcohol. Stop smoking. Smoking can irritate the stomach and delay healing. As much as possible, stay away from second hand smoke. Follow-up care Follow up with your healthcare provider, or as advised by our staff. You may need testing to check for inflammation or an ulcer. When to seek medical advice Call your healthcare provider for any of the following: Stomach pain that gets worse or moves to the lower right belly (appendix area) Chest pain that appears or gets worse, or spreads to the back, neck, shoulder, or arm Frequent vomiting (can t keep down liquids) Blood in the stool or vomit (red or black in color) Feeling weak or dizzy Shortness of breath Unexplained weight loss Fever of 100.4 F (38 C) or higher, or as directed by your healthcare provider [phone] [employer]. [address] [place] [address]. All rights reserved. This information is not intended as a substitute for professional medical care. Always follow yourhealthcare professional's instructions. Follow Up Care 12/18/2022 00:47:37 With:GUERLINE ANDERSEN MD Address: [address] [place], [place] [id number]- [phone] When:2-4 days [facility] 09-27-2023 Note Discharge Instructions Thank you for allowing [facility] [place] to assist you with your healthcare needs. The following is importantdischarge information regarding your hospital visit. Diagnosis from Today's Visit Abdominal pain Gastritis What to Do Next Instructions from Your Care Team Discharge Return to Work, School, or Sports (Return to Work, School, or Sports) - Ordered -- 12/19/22, May return to: work, 12/18/22 1:18:00 EDT Post Acute Orders No qualifying data available. You Need to Schedule the Following Appointments Follow Up with GUERLINE ANDERSEN MD When Within 2-4 days Where: [place] [address] [phone] Allergies codeine (Swelling of throat, Hives) Latex Vicodin (Hives) naproxen Medications Please ask your primary doctor or pharmacist before taking any other medication not listed, including over the counter drugs, herbal medications, vitamins and or supplements as they may interact withyour home medications. What How Much When Why Instructions Last Dose New famotidine (Pepcid 20 mg oral tablet) 1 tab(s) by mouth Two (2) times a day Printed Prescription New omeprazole (omeprazole 20 mg oral delayed release capsule) 1 cap by mouth Once a day Printed Prescription Changed dicyclomine (Bentyl use dicyclomine ) 20 Milligram by mouth Four (4) times a day Duration: 7 Days Printed Prescription Changed dicyclomine (dicyclomine 10 mg oral capsule) 1 cap by mouth Four (4) times a day Duration: 5 Days Changed dicyclomine (dicyclomine 20 mg oral tablet) 1 tab(s) by mouth Four (4) times a day as needed for abdominal discomfort Diarrhea and vomiting Gastroenteritis Duration: 3 Days Unchanged aspirin (aspirin 81 mg oral tablet, chewable) 1 tab(s) by mouth Once a day with a meal Duration: 30 Days Unchanged metroNIDAZOLE (metroNIDAZOLE 500 mg oral tablet) 1 tab(s) by mouth Every 8 hours Lower GI bleeding Duration: 5 Days Please take this list to your next doctor s visit. Bring all medications you take, including over the counter medications, herbals and other supplements with you to your doctor s visit. Patients and families are reminded to discard old lists and to update any records with all medication providers or retail pharmacies. Education Materials Gastritis (Adult) Gastritis is inflammation and irritation of the stomach lining. You can have it for a short time (acute) or be long lasting (chronic). Infection with bacteria called H pylori most often causes gastritis. More than a third of people in the [place] have these bacteria in their bodies. In many cases, H pylori causes no problems or symptoms. In some people, though, the infection irritates the stomach lining and causes gastritis. H. pylori may be diagnosed through blood, stool, or breath tests, we well as through biopsy during an endoscopy. Other causes of stomach irritation include drinking alcohol, smoking or chewing tobacco, or taking pain-relieving medicines called NSAIDs (such as aspirin or ibuprofen). Certain drugs (such as cocaine) and immune conditions can also cause gastritis. Symptoms of gastritis can include: Belly pain or bloating Feeling full quickly Loss of appetite Nausea or vomiting Vomiting blood or having black stools Feeling more tired than usual An inflamed and irritated stomach lining is more likely to develop a sore called an ulcer. To help prevent this, gastritis should be treated. Home care If needed, our healthcare provider may prescribe medicines. If you have H pylori infection, treating it will likely relieve your symptoms. Other changes can help reduce stomach irritation and help itheal. If you have been prescribed medicines for H pylori infection, take them as directed. Take all of the medicine until it is finished or your healthcare provider tells you to stop, even if you feel better. Your healthcare provider may advise you not to take NSAIDs. If you take daily aspirin for your heart or other medical reasons, do not stop without talking to your healthcare provider first. Don't drink alcohol. Stop smoking. Smoking can irritate the stomach and delay healing. As much as possible, stay away from second hand smoke. Follow-up care Follow up with your healthcare provider, or as advised by our staff. You may need testing to check for inflammation or an ulcer. When to seek medical advice Call your healthcare provider for any of the following: Stomach pain that gets worse or moves to the lower right belly (appendix area) Chest pain that appears or gets worse, or spreads to the back, neck, shoulder, or arm Frequent vomiting (can t keep down liquids) Blood in the stool or vomit (red or black in color) Feeling weak or dizzy Shortness of breath Unexplained weight loss Fever of 100.4 F (38 C) or higher, or as directed by your healthcare provider [phone] [employer]. [address] [place] [address]. All rights reserved. This information is not intended as a substitute for professional medical care. Always follow yourhealthcare professional's instructions. Additional Information VACCINATE! IT SAVES LIVES! Members of the community who have not yet received the COVID-19 vaccine and would like to receive it can visit one of [facility] vaccine clinics. There are many vaccine clinic locations within the [facility]. For locations and available times, please visit www.[email or web address].gov/. It is important to note that some COVID mobile vaccine clinics are held outdoors and may be canceled in rainy or stormy conditions. To learn more about pediatric vaccinations (ages 5-11), we invite you to visit the [facility] webpage. https://www.[facility].org/pages/5393-Dzgsj-Gkskfzamsnz-Azvrxkspqm-Lvruc-Fvc stions.htmlTo learn more about the COVID-19 vaccine, we invite you to visit the CDC website for a list of frequently asked questions. https://www.cdc.gov/coronavirus/2019-ncov/vaccines/faq.html [facility] [employer] Patient Portal Access Instructions: Stay connected with your healthcare team and access your personal medical information anytime with the [email or web address] Patient Portal. If you would like a full copy of your medical records please contact the [facility] Medical Records Department Friday through Friday between 8a.m. and 4:30p.m. Please follow the directions below to access the portal: 1.Access the email account you provided upon registration to the [facility].2.Look for an invitation email from [facility].3.Open the email and access the invitation link: Accept Invitation to [facility] [facility]4.Fill in the required baugh to create your account. Sign into [email or web address] with your username and password that you created in the above steps to stay up to date. You can then view a summary of results, a summary of your visits, and the ability to download your summaries to your computer or send the information securely to a physician. Remember that your healthcare information is confidential, so carefully consider who you will allow to register on the [email or web address] Patient Portal for access to your information. You can also access the [email or web address] Patient Portal on the [employer]. Simply click on Health Records under [facility] and then click on the [employer] logo. HOW TO SAFELY DISPOSE OF PRESCRIPTION MEDICATIONS Please use one of the following methods to safely dispose of your unused medications. 1.Use a drug disposal kit: the drug disposal pouch allows you to safely discard your old and unuseddrugs. Ask your nurse to give you one when you are discharged.2.Visit a local take-back location: Many local pharmacies and police departments have programs that collect old and unwanted prescriptiondrugs. Call your local pharmacy or go to http://bit.[employer]/0Y7Jn5l to find one close to you.3.Make use of household items: Use cat litter or old coffee grounds to dispose medications if other options arenot available. Mix your drugs with these household products, seal them in an airtight container andthrow it into the garbage. Call [facility]: [phone] to be sure your drugs can be disposed of in this way. Some medicines may require a different approach.4.Never flush your medications down the toilet. IF YOU HAVE BEEN PRESCRIBED AN OPIOIDS FOR PAIN If you have been prescribed an opioid (such as hydrocodone, oxycodone or morphine), it is critical to understand the possible side effects and risks of opioid pain medications. Even when taken as directed, opioids can have several side effects including: Tolerance, meaning you might need to take more of a medication for the same pain relief. Nausea, vomiting and/or constipation. Sleepiness, dizziness, dry mouth, confusion, depression or itching. Physical dependence, meaning you have withdrawal symptoms when a medication is stopped ? this can develop within a few days. KNOW YOUR RESPONSIBILITIES It is important to know exactly how much and how often to take the opioid pain medications you are prescribed. Never take opioids in higher amounts or more often than prescribed. Do not combine opioids with alcohol or other drugs that cause drowsiness, such as benzodiazepines, also known as benzos,including diazepam and alprazolam, muscle relaxants or sleep aids. Never sell or share prescriptionopioids. This is illegal. Store opioids in a secure place and out of reach of others (including children, family, friends and visitors). The last page(s) of this document has been signed and retained as a CHART COPY Signatures Patient Education Materials Gastritis (Adult) Medication Leaflets My discharge plan and instructions have been reviewed and explained to me and I,BARRETT LOPEZ understand my current condition and have read and understand these discharge instructions. I have received a written copy of the plan/instructions. If I have questions, I am aware that I should contact my doctor. Patient/Hr Director Signature: Date/Time: Relationship to Patient: Witness Name/Signature: Date/Time: [facility]09-06-2023 Miscellaneous Notes* Telephone Encounter - Guerline Andersen MD - 11/27/2022 8:04 PM EDT FOLLOW UP ENDOSCOPY - RESULTS AND RECOMMENDATIONS NAME: Barrett Lopez CLINIC NO.: [id number] : 1975 DATE: November 27, 2022 PRIMARY CARE PROVIDER: No primary care provider on file. Barrett Lopez is a patient referred for endoscopy for abdominal pain and worsening constipation. I performed upper and lower endoscopy on November 26, 2022. The patient was found to have: Upper Endoscopy Impression: - Normal examined jejunum. - Duodenitis. Biopsied. - Gastritis. Biopsied. - Mildly severe reflux esophagitis with no bleeding. Biopsied. I recommended he take Pepcid and sucralfate Lower EndoscopyImpression: - The examined portion of the ileum was normal. - The entire examined colon is normal on direct and retroflexion views. - Diverticulosis in the sigmoid colon. - No specimens collected. Pathology demonstrated: FINAL DIAGNOSIS A. Duodenum, biopsy: - Duodenal mucosa with preserved villous architecture and a mild increase in intraepithelial lymphocytes; see comment. B. Stomach, antrum, biopsy: - Gastric antral mucosa with reactive gastropathy. - No evidence of Helicobacter pylori organisms on H&E stain. C. Esophagus, distal, biopsy: - Squamocolumnar junctional mucosa with mild chronic inflammation. - Negative for granulomas and dysplasia. IMPRESSION: Constipation, normal colonoscopy, clinical duodenitis gastritis and distal esophagitis PLAN: INSTRUCTIONS FOR CONSTIPATION FOLLOWING NORMAL COLONOSCOPY I discussed with you the findings of your colonoscopy. Since there were no worrisome abnormalities,I recommend you undergo repeat endoscopic screening at 10 year intervals. If you have a family history of colon cancer, then follow up endoscopy should be every 5 years. This is the current recommendation for colon cancer screening. If you note bleeding, change in bowel habits, or other suspicious colon related symptoms before that time, those symptoms should be evaluated as necessary. Constipation in the setting of a normal endoscopy can almost always be managed with the following modifications. A high fiber diet including increasing whole grains, fruits and vegetables and increasing liquid intake will improve most issues with constipation. Please note that increasing liquid intake means clear liquids or juice. 6 - 8 8 ounce glasses of liquid per day should be the goal. Caffeine containing beverages do not count towards that goal. If these modifications do not improve the constipation symptoms sufficiently, surfactant stool softers (dulcolax, docusate or similar) or Miralax can be used as needed. Miralax is now over the counter. It is typically started at 1 capful in 8 ounces of liquid daily. It can be increased (twice a day) or decreased (1/2 capful or every other day) as needed. These agents will not cause damage to the colon even if used intermediate designer Plant based laxatives (Cascara, Senna, Aloin from Aloe Vera), are GI stimulants that can damage thecolon if used intermediate designer. Care should be taken to review the active ingredient list on all over the counter laxatives to be sure that these are not taken inadvertently. An example is that not all Sennokot formulations contain Senna as an active ingredient. If you have any difficulties or concerns, you should contact our office immediately. INSTRUCTIONS FOR PEPTIC ULCER DISEASE - ESOPHAGITIS I discussed with you the findings of your upper endoscopy. Your upper endoscopy demonstrated esophagitis Esophagitis may be a form of peptic irritation, with acid moving from the stomach to the esophagus (gastroesophageal reflux) Factors that increase acid production include smoking and stress. If you smoke, stopping smoking will often cure these issues without needing other medications. Over the counter medications including antiacids and acid reducing medications including H2 blockers (Zantac and the like) and proton pump inhibitors (prilosec, prevacid and the like) neutralize or prevent acid production. Prescription strength proton pump inhibitors (PPIs) may be necessary if your symptoms persist. Carafate may be added to PPI treatment in refractory cases. Avoiding smoking, alcohol and antiinflammatory medications are important in the successful treatment of reflux esophagitis and peptic diseases. Other factors that contribute to GERD and esophagitis are being overweight, eating large meals before laying down and certain foods. Weight loss will help improve many GERD complaints. Remaining upright after eating large meals and having a small supper will also help symptoms. Avoiding food that contribute to reflux - chocolate, caffeine, cheddar cheese may also help. Follow up upper endoscopy may be recommended to assure healing of the esophagus. New or worsening symptoms such are epigastric pain, burning, difficulty swallowing or food stickingshould be relayed to your physician. Feeling full early after eating, or black, tarry, foul smelling stools are also worrisome. If you have any difficulties or concerns, you should contact our office immediately. I have instructed my staff to forward the above information to the patient and to the appropriate providers documented in this encounterOur [facility] Nurse Note* Francia Sheets RN - 11/26/2022 12:25 PM EDT Abdomen soft non-distended. Will continue to monitor. documented in this encounterOur Lady Of Mercy [facility]09-05-2023 History and physical note * Guerline Andersen MD - 11/26/2022 11:15 AM EDT UPDATED PROCEDURAL SEDATION HISTORY AND PHYSICAL EXAMINATION SERVICE DATE: 11/26/2022 SERVICE TIME: 11:46 AM PHYSICAL EXAM MUST BE COMPLETED ON ADMISSION PROCEDURE: Procedure Indications: The History and Physical (completed in the past 30 days) has been reviewed and the patient has beenexamined. The contents accurately reflect the patient's condition with the following additions or revisions since the H&P was completed. ASA Class: ASA Class:: Patient with severe systemic disease Examination indicates no changes. AIRWAY: Airway Visualization of Uvula: Yes Mouth opening greater than 2 fingerbreadths: Yes Neck Full Range of Motion: Yes LUNGS: Lungs clear to auscultation CARDIAC: Regular rhythm,Regular rate Provisional Diagnosis/Treatment Plan: upper abdominal pain, negative work up - EGd and Colonoscopy SEDATION GOAL: Moderate This H&P can be found in the attached. SIGNATURE: Guerline Andersen MD PATIENT NAME: Barrett Lopez DATE: November 26, 2022 TIME: 11:46 AM Source Note - Guerline Andersen MD - 11/26/2022 11:15 AM EDT Images from the original note were not included. HISTORY AND PHYSICAL Barrett Lopez 1975 REFERRING PHYSICIAN: Rosanna ER CHIEF COMPLAINT: Abdominal Pain HPI: The patient is a 47 year old male after an episode of abdominal pain and GI complaints. The patient is a 2-day history of abdominal pain which she described as rather constant it occurred rathersuddenly. He noted in his upper right abdomen. He noted that nothing made the pain better or worse.The patient had undergone previous appendectomy, open sigmoid colectomy for diverticulitis and cholecystectomy. He noted some diarrhea but denied blood in the stools or other difficulties. Laboratorystudies were obtained at the emergency department. His white blood cell count was mildly elevated 11.8. Hemoglobin was normal. Total bilirubin was normal at 0.2 transaminases and metabolic panel werenormal. His urinalysis was unremarkable. CT scan of the abdomen pelvis was obtained which demonstrated no specific abnormalities with a moderate stool burden. He had a stable small umbilical and right inguinal hernia. The patient had undergone colonoscopy in 2021. He underwent upper and lower endoscopy on April 03, 2021. Upper endoscopy demonstrated some gastritis and nonsevere reflux. Lower endoscopy demonstrated a patent end-to-end colorectal anastomosis with multiple appearing mucosa and one 6 mm polyp in the rectum. Pathology returned as normal-appearing stomach and a small tubular adenoma. 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 Unspecified adjustment reaction 10/23/2011 PAST SURGICAL HISTORY PAST SURGICAL HISTORY Procedure Laterality Date ABDOMINAL SURGERY HX APPENDECTOMY 12/2004 [facility] APPENDECTOMY HX COLECTOMY PART W/ANASTOMOSIS 11/07/2016 Open sigmoid colectomy with mobilization of splenic flexure for limited diverticulitis COLON SURGERY HX COLONOSCOPY FLX DX W/COLLJ SPEC WHEN PFRMD 04/03/2021 repeat in 1 year-due to poor bowel prep ESOPHAGOGASTRODUODENOSCOPY TRANSORAL DIAGNOSTIC 04/03/2018 EGD ESOPHAGOGASTRODUODENOSCOPY TRANSORAL DIAGNOSTIC 01/16/2021 ESOPHAGOGASTRODUODENOSCOPY TRANSORAL DIAGNOSTIC 04/03/2021 FOOT SURGERY HX Bilateral 1991 preair of broken feet FRACTURE SURGERY HAND SURGERY HX Left 2006 repair of fracture KNEE SURGERY HX Right 2016 LAPS SURG CHOLECYSTECTOMY W/CHOLANGIOGRAPHY 12/08/2017 PAST SURGICAL HISTORY OF 04/2007 fracture/Deviated septum TONSILLECTOMY & ADENOIDECTOMY AGE 14/> 2011 T/A (over age 14 years) TONSILLECTOMY HX CURRENT MEDICATIONS Current Outpatient Medications Medication Sig meloxicam (MOBIC) 7.5 mg tablet Take 1 tablet by mouth once daily. (Patient not taking: Reported on11/22/2022) omeprazole (PRILOSEC) 20 mg capsule Take 2 capsules by mouth once daily. (Patient not taking: Reported on 11/22/2022) furosemide (LASIX) 20 mg tablet Take 1 tablet by mouth once daily. No current facility-administered medications for this visit. ALLERGIES: Codeine, Latex, Naproxen, and Vicodin [Hydrocodone-Acetaminophen] PERSONAL HISTORY: SOCIAL HISTORY Social History Tobacco Use Smoking status: Never Smokeless tobacco: Never Vaping Use Vaping Use: Never used Substance Use Topics Alcohol use: No Drug use: No FAMILY HISTORY: FAMILY HISTORY FAMILY HISTORY Problem Relation Age of Onset Diabetes Mother Hypertension Mother Cancer Mother lung and brain Hearing Loss Maternal Grandmother Diabetes Maternal Grandmother Heart Maternal Grandfather AR other (unknown) Father brain aneurysm? REVIEW OF SYMPTOMS: The review of systems data was entered by the nurse and reviewed by ut Nursing Notes: Cierra Morales RN 11/22/2022 11:22 AM Signed REVIEW OF SYSTEMS: General: The patient NOTES fatigue, NOTES weight loss, denies weight gain, denies feeling hot, and denies feelings of cold. Eyes: The patient denies glaucoma, denies eye injury/surgery, wears glasses or contacts. Ear/Nose/Throat: The patient NOTES allergies, denies hayfever, denies ear infections, and denies bloody noses. Cardiovascular: The patient denies chest pain, denies heart disease, denies high blood pressure,denies cardiac stent, denies prior heart attack, denies irregular heart beat, denies high cholesterol, denies poor circulation, denies heart failure, other cardiac issues, denies claudication, denies cold feet, denies peripheral arterial stent. Respiratory: The patient denies tuberculosis, denies pneumonia, denies frequent cough, denies pulmonary embolism, denies shortness of breath, and denies coughing up blood. Gastrointestinal: The patient denies difficulty swallowing, NOTES acid reflux, denies ulcers, denies vomiting, denies jaundice/hepatitis, denies gallbladder problems, denies black or tarry stools, denies hemorrhoids, denies bleeding from rectum, NOTES diverticulitis, denies constipation, NOTES diarrhea, denies loss of stool control, and denies hernias. Kidney/Bladder: The patient denies kidney stones, denies urine infections, and denies bloody urine. Skin: The patient denies a history of skin cancer, denies bleeding/changing moles, and denies a history of skin rash. Neurologic: The patient denies a history of epilepsy/convulsions, denies headaches, denies head/spinal injuries, and denies stroke/TIA. Psychiatric: The patient denies psychiatric medications, denies depression, and denies voices, denies substance abuse. Endocrine: The patient denies thyroid disorders, denies diabetes, and denies hormonal problems. Hematologic: The patient denies a history of bruising, denies bleeding, and denies anemia, denies blood clots. Infections: The patient denies a history of measles and mumps, denies rheumatic fever, and denies sexually transmitted diseases. Musculoskeletal: The patient denies back pain/injury, denies back problems, denies sciatica, deniesknee/foot trouble, denies arthritis, or denies gout. When was patient's last Mammogram screening? N/A Last Colonoscopy: 04/03/2021 Cierra Morales RN PHYSICAL EXAMINATION: General: The patient is 47 year old male, well nourished, well hydrated in no acute distress. The patient is oriented to time, place, and person. VITALS: Blood pressure 122/90, pulse (!) 56, temperature 36.6 C (97.9 F), temperature source Temporal, resp. rate 16, height 170.2 cm (5' 7), weight 133.5 kg (294 lb 6.4 oz), SpO2 100 %. Body mass index is 46.11 kg/m . HEENT: Normal cephalic, ataumatic, pupils are equally round, sclera are anicteric, mucous membranesare moist, oropharynx is clear. Neck has no masses, asymmetry or lymphadenopathy. Thyroid is unremarkable. Respiratory: Clear to auscultation and percussion. Normal respiratory excursion and pattern. Cardiac: Examination is regular rate and rhythm. Abdominal exam: Soft, nontender, with no palpable masses. No hepatosplenomegaly. No palpable hernias. Rectal exam: exam deferred Extremities: no clubbing, cyanosis or edema. No adenopathy. Other: LABORATORY VALUES: As Noted RADIOLOGIC STUDIES: As Noted Assessment IMPRESSION: Constipation, abdominal pain, prior small polyp and gastritis PLAN: I plan to perform upper and lower endoscopy. We discussed the risks and benefits of the planned endoscopy. I have informed the patient that complications can occur including failure to completethe endoscopy and perforation. The patient had the opportunity to ask questions concerning the planned endoscopy. My staff has also explained the procedure to the patient in understandable terms and has given the patient printed material concerning the procedure. The patient freely consents to surgery. I plan to use golytely bowel preparation for endoscopy Diagnoses: (K59.00) Constipation, unspecified constipation type (primary encounter diagnosis) (R10.9) Abdominal pain, unspecified abdominal location Return to Clinic: The patient is instructed to follow-up with me after the testing has been completed. Guerline Andersen MD * Guerline Andersen MD - 11/26/2022 11:15 AM EDT Images from the original note were not included. HISTORY AND PHYSICAL Barrett Lopez 1975 REFERRING PHYSICIAN: Rosanna ER CHIEF COMPLAINT: Abdominal Pain HPI: The patient is a 47 year old male after an episode of abdominal pain and GI complaints. The patient is a 2-day history of abdominal pain which she described as rather constant it occurred rathersuddenly. He noted in his upper right abdomen. He noted that nothing made the pain better or worse.The patient had undergone previous appendectomy, open sigmoid colectomy for diverticulitis and cholecystectomy. He noted some diarrhea but denied blood in the stools or other difficulties. Laboratorystudies were obtained at the emergency department. His white blood cell count was mildly elevated 11.8. Hemoglobin was normal. Total bilirubin was normal at 0.2 transaminases and metabolic panel werenormal. His urinalysis was unremarkable. CT scan of the abdomen pelvis was obtained which demonstrated no specific abnormalities with a moderate stool burden. He had a stable small umbilical and right inguinal hernia. The patient had undergone colonoscopy in 2021. He underwent upper and lower endoscopy on April 03, 2021. Upper endoscopy demonstrated some gastritis and nonsevere reflux. Lower endoscopy demonstrated a patent end-to-end colorectal anastomosis with multiple appearing mucosa and one 6 mm polyp in the rectum. Pathology returned as normal-appearing stomach and a small tubular adenoma. 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 Unspecified adjustment reaction 10/23/2011 PAST SURGICAL HISTORY PAST SURGICAL HISTORY Procedure Laterality Date ABDOMINAL SURGERY HX APPENDECTOMY 12/2004 [facility] APPENDECTOMY HX COLECTOMY PART W/ANASTOMOSIS 11/07/2016 Open sigmoid colectomy with mobilization of splenic flexure for limited diverticulitis COLON SURGERY HX COLONOSCOPY FLX DX W/COLLJ SPEC WHEN PFRMD 04/03/2021 repeat in 1 year-due to poor bowel prep ESOPHAGOGASTRODUODENOSCOPY TRANSORAL DIAGNOSTIC 04/03/2018 EGD ESOPHAGOGASTRODUODENOSCOPY TRANSORAL DIAGNOSTIC 01/16/2021 ESOPHAGOGASTRODUODENOSCOPY TRANSORAL DIAGNOSTIC 04/03/2021 FOOT SURGERY HX Bilateral 1991 preair of broken feet FRACTURE SURGERY HAND SURGERY HX Left 2006 repair of fracture KNEE SURGERY HX Right 2016 LAPS SURG CHOLECYSTECTOMY W/CHOLANGIOGRAPHY 12/08/2017 PAST SURGICAL HISTORY OF 04/2007 fracture/Deviated septum TONSILLECTOMY & ADENOIDECTOMY AGE 14/> 2011 T/A (over age 14 years) TONSILLECTOMY HX CURRENT MEDICATIONS Current Outpatient Medications Medication Sig meloxicam (MOBIC) 7.5 mg tablet Take 1 tablet by mouth once daily. (Patient not taking: Reported on11/22/2022) omeprazole (PRILOSEC) 20 mg capsule Take 2 capsules by mouth once daily. (Patient not taking: Reported on 11/22/2022) furosemide (LASIX) 20 mg tablet Take 1 tablet by mouth once daily. No current facility-administered medications for this visit. ALLERGIES: Codeine, Latex, Naproxen, and Vicodin [Hydrocodone-Acetaminophen] PERSONAL HISTORY: SOCIAL HISTORY Social History Tobacco Use Smoking status: Never Smokeless tobacco: Never Vaping Use Vaping Use: Never used Substance Use Topics Alcohol use: No Drug use: No FAMILY HISTORY: FAMILY HISTORY FAMILY HISTORY Problem Relation Age of Onset Diabetes Mother Hypertension Mother Cancer Mother lung and brain Hearing Loss Maternal Grandmother Diabetes Maternal Grandmother Heart Maternal Grandfather AR other (unknown) Father brain aneurysm? REVIEW OF SYMPTOMS: The review of systems data was entered by the nurse and reviewed by ut Nursing Notes: Cierra Morales RN 11/22/2022 11:22 AM Signed REVIEW OF SYSTEMS: General: The patient NOTES fatigue, NOTES weight loss, denies weight gain, denies feeling hot, and denies feelings of cold. Eyes: The patient denies glaucoma, denies eye injury/surgery, wears glasses or contacts. Ear/Nose/Throat: The patient NOTES allergies, denies hayfever, denies ear infections, and denies bloody noses. Cardiovascular: The patient denies chest pain, denies heart disease, denies high blood pressure,denies cardiac stent, denies prior heart attack, denies irregular heart beat, denies high cholesterol, denies poor circulation, denies heart failure, other cardiac issues, denies claudication, denies cold feet, denies peripheral arterial stent. Respiratory: The patient denies tuberculosis, denies pneumonia, denies frequent cough, denies pulmonary embolism, denies shortness of breath, and denies coughing up blood. Gastrointestinal: The patient denies difficulty swallowing, NOTES acid reflux, denies ulcers, denies vomiting, denies jaundice/hepatitis, denies gallbladder problems, denies black or tarry stools, denies hemorrhoids, denies bleeding from rectum, NOTES diverticulitis, denies constipation, NOTES diarrhea, denies loss of stool control, and denies hernias. Kidney/Bladder: The patient denies kidney stones, denies urine infections, and denies bloody urine. Skin: The patient denies a history of skin cancer, denies bleeding/changing moles, and denies a history of skin rash. Neurologic: The patient denies a history of epilepsy/convulsions, denies headaches, denies head/spinal injuries, and denies stroke/TIA. Psychiatric: The patient denies psychiatric medications, denies depression, and denies voices, denies substance abuse. Endocrine: The patient denies thyroid disorders, denies diabetes, and denies hormonal problems. Hematologic: The patient denies a history of bruising, denies bleeding, and denies anemia, denies blood clots. Infections: The patient denies a history of measles and mumps, denies rheumatic fever, and denies sexually transmitted diseases. Musculoskeletal: The patient denies back pain/injury, denies back problems, denies sciatica, deniesknee/foot trouble, denies arthritis, or denies gout. When was patient's last Mammogram screening? N/A Last Colonoscopy: 04/03/2021 Cierra Morales RN PHYSICAL EXAMINATION: General: The patient is 47 year old male, well nourished, well hydrated in no acute distress. The patient is oriented to time, place, and person. VITALS: Blood pressure 122/90, pulse (!) 56, temperature 36.6 C (97.9 F), temperature source Temporal, resp. rate 16, height 170.2 cm (5' 7), weight 133.5 kg (294 lb 6.4 oz), SpO2 100 %. Body mass index is 46.11 kg/m . HEENT: Normal cephalic, ataumatic, pupils are equally round, sclera are anicteric, mucous membranesare moist, oropharynx is clear. Neck has no masses, asymmetry or lymphadenopathy. Thyroid is unremarkable. Respiratory: Clear to auscultation and percussion. Normal respiratory excursion and pattern. Cardiac: Examination is regular rate and rhythm. Abdominal exam: Soft, nontender, with no palpable masses. No hepatosplenomegaly. No palpable hernias. Rectal exam: exam deferred Extremities: no clubbing, cyanosis or edema. No adenopathy. Other: LABORATORY VALUES: As Noted RADIOLOGIC STUDIES: As Noted Assessment IMPRESSION: Constipation, abdominal pain, prior small polyp and gastritis PLAN: I plan to perform upper and lower endoscopy. We discussed the risks and benefits of the planned endoscopy. I have informed the patient that complications can occur including failure to completethe endoscopy and perforation. The patient had the opportunity to ask questions concerning the planned endoscopy. My staff has also explained the procedure to the patient in understandable terms and has given the patient printed material concerning the procedure. The patient freely consents to surgery. I plan to use golytely bowel preparation for endoscopy Diagnoses: (K59.00) Constipation, unspecified constipation type (primary encounter diagnosis) (R10.9) Abdominal pain, unspecified abdominal location Return to Clinic: The patient is instructed to follow-up with me after the testing has been completed. Guerline Andersen MD documented in this encounterOur [facility]23 History of Present illness Narrative* Guerline Andersen MD - 11/24/2022 9:08 AM EDT HISTORY AND PHYSICAL Barrett Lopez 1975 REFERRING PHYSICIAN: Rosanna ER CHIEF COMPLAINT: Abdominal Pain HPI: The patient is a 47 year old male after an episode of abdominal pain and GI complaints. The patient is a 2-day history of abdominal pain which she described as rather constant it occurred rathersuddenly. He noted in his upper right abdomen. He noted that nothing made the pain better or worse.The patient had undergone previous appendectomy, open sigmoid colectomy for diverticulitis and cholecystectomy. He noted some diarrhea but denied blood in the stools or other difficulties. Laboratorystudies were obtained at the emergency department. His white blood cell count was mildly elevated 11.8. Hemoglobin was normal. Total bilirubin was normal at 0.2 transaminases and metabolic panel werenormal. His urinalysis was unremarkable. CT scan of the abdomen pelvis was obtained which demonstrated no specific abnormalities with a moderate stool burden. He had a stable small umbilical and right inguinal hernia. The patient had undergone colonoscopy in 2021. He underwent upper and lower endoscopy on April 03, 2021. Upper endoscopy demonstrated some gastritis and nonsevere reflux. Lower endoscopy demonstrated a patent end-to-end colorectal anastomosis with multiple appearing mucosa and one 6 mm polyp in the rectum. Pathology returned as normal-appearing stomach and a small tubular adenoma. 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 Unspecified adjustment reaction 10/23/2011 PAST SURGICAL HISTORY Procedure Laterality Date ABDOMINAL SURGERY HX APPENDECTOMY 12/2004 [facility] APPENDECTOMY HX COLECTOMY PART W/ANASTOMOSIS 11/07/2016 Open sigmoid colectomy with mobilization of splenic flexure for limited diverticulitis COLON SURGERY HX COLONOSCOPY FLX DX W/COLLJ SPEC WHEN PFRMD 04/03/2021 repeat in 1 year-due to poor bowel prep ESOPHAGOGASTRODUODENOSCOPY TRANSORAL DIAGNOSTIC 04/03/2018 EGD ESOPHAGOGASTRODUODENOSCOPY TRANSORAL DIAGNOSTIC 01/16/2021 ESOPHAGOGASTRODUODENOSCOPY TRANSORAL DIAGNOSTIC 04/03/2021 FOOT SURGERY HX Bilateral 1991 preair of broken feet FRACTURE SURGERY HAND SURGERY HX Left 2006 repair of fracture KNEE SURGERY HX Right 2016 LAPS SURG CHOLECYSTECTOMY W/CHOLANGIOGRAPHY 12/08/2017 PAST SURGICAL HISTORY OF 04/2007 fracture/Deviated septum TONSILLECTOMY & ADENOIDECTOMY AGE 14/> 2011 T/A (over age 14 years) TONSILLECTOMY HX Current Outpatient Medications Medication Sig meloxicam (MOBIC) 7.5 mg tablet Take 1 tablet by mouth once daily. (Patient not taking: Reported on11/22/2022) omeprazole (PRILOSEC) 20 mg capsule Take 2 capsules by mouth once daily. (Patient not taking: Reported on 11/22/2022) furosemide (LASIX) 20 mg tablet Take 1 tablet by mouth once daily. No current facility-administered medications for this visit. ALLERGIES: Codeine, Latex, Naproxen, and Vicodin [Hydrocodone-Acetaminophen] PERSONAL HISTORY: Social History Tobacco Use Smoking status: Never Smokeless tobacco: Never Vaping Use Vaping Use: Never used Substance Use Topics Alcohol use: No Drug use: No FAMILY HISTORY: FAMILY HISTORY Problem Relation Age of Onset Diabetes Mother Hypertension Mother Cancer Mother lung and brain Hearing Loss Maternal Grandmother Diabetes Maternal Grandmother Heart Maternal Grandfather AR other (unknown) Father brain aneurysm? REVIEW OF SYMPTOMS: The review of systems data was entered by the nurse and reviewed by ut Nursing Notes: Cierra Morales RN 11/22/2022 11:22 AM Signed REVIEW OF SYSTEMS: General: The patient NOTES fatigue, NOTES weight loss, denies weight gain, denies feeling hot, and denies feelings of cold. Eyes: The patient denies glaucoma, denies eye injury/surgery, wears glasses or contacts. Ear/Nose/Throat: The patient NOTES allergies, denies hayfever, denies ear infections, and denies bloody noses. Cardiovascular: The patient denies chest pain, denies heart disease, denies high blood pressure,denies cardiac stent, denies prior heart attack, denies irregular heart beat, denies high cholesterol, denies poor circulation, denies heart failure, other cardiac issues, denies claudication, denies cold feet, denies peripheral arterial stent. Respiratory: The patient denies tuberculosis, denies pneumonia, denies frequent cough, denies pulmonary embolism, denies shortness of breath, and denies coughing up blood. Gastrointestinal: The patient denies difficulty swallowing, NOTES acid reflux, denies ulcers, denies vomiting, denies jaundice/hepatitis, denies gallbladder problems, denies black or tarry stools, denies hemorrhoids, denies bleeding from rectum, NOTES diverticulitis, denies constipation, NOTES diarrhea, denies loss of stool control, and denies hernias. Kidney/Bladder: The patient denies kidney stones, denies urine infections, and denies bloody urine. Skin: The patient denies a history of skin cancer, denies bleeding/changing moles, and denies a history of skin rash. Neurologic: The patient denies a history of epilepsy/convulsions, denies headaches, denies head/spinal injuries, and denies stroke/TIA. Psychiatric: The patient denies psychiatric medications, denies depression, and denies voices, denies substance abuse. Endocrine: The patient denies thyroid disorders, denies diabetes, and denies hormonal problems. Hematologic: The patient denies a history of bruising, denies bleeding, and denies anemia, denies blood clots. Infections: The patient denies a history of measles and mumps, denies rheumatic fever, and denies sexually transmitted diseases. Musculoskeletal: The patient denies back pain/injury, denies back problems, denies sciatica, deniesknee/foot trouble, denies arthritis, or denies gout. When was patient's last Mammogram screening? N/A Last Colonoscopy: 04/03/2021 Cierra Morales RN PHYSICAL EXAMINATION: General: The patient is 47 year old male, well nourished, well hydrated in no acute distress. The patient is oriented to time, place, and person. VITALS: Blood pressure 122/90, pulse (!) 56, temperature 36.6 C (97.9 F), temperature source Temporal, resp. rate 16, height 170.2 cm (5' 7), weight 133.5 kg (294 lb 6.4 oz), SpO2 100 %. Body mass index is 46.11 kg/m . HEENT: Normal cephalic, ataumatic, pupils are equally round, sclera are anicteric, mucous membranesare moist, oropharynx is clear. Neck has no masses, asymmetry or lymphadenopathy. Thyroid is unremarkable. Respiratory: Clear to auscultation and percussion. Normal respiratory excursion and pattern. Cardiac: Examination is regular rate and rhythm. Abdominal exam: Soft, nontender, with no palpable masses. No hepatosplenomegaly. No palpable hernias. Rectal exam: exam deferred Extremities: no clubbing, cyanosis or edema. No adenopathy. Other: LABORATORY VALUES: As Noted RADIOLOGIC STUDIES: As Noted Assessment IMPRESSION: Constipation, abdominal pain, prior small polyp and gastritis PLAN: I plan to perform upper and lower endoscopy. We discussed the risks and benefits of the planned endoscopy. I have informed the patient that complications can occur including failure to completethe endoscopy and perforation. The patient had the opportunity to ask questions concerning the planned endoscopy. My staff has also explained the procedure to the patient in understandable terms and has given the patient printed material concerning the procedure. The patient freely consents to surgery. I plan to use golytely bowel preparation for endoscopy Diagnoses: (K59.00) Constipation, unspecified constipation type (primary encounter diagnosis) (R10.9) Abdominal pain, unspecified abdominal location Return to Clinic: The patient is instructed to follow-up with me after the testing has been completed. Guerline Andersen MD documented in this encounterOur [facility] Instructions* Patient Instructions* Guerline Andersen MD - 11/22/2022 11:56 AM EDT Images from the original note were not included. Bowel Preparation Instructions for: Golytely, Nulytely, Trilyte or Colyte (polyethylene glycol 3350and electrolytes) IF YOU DO NOT FOLLOW THESE DIRECTIONS, YOUR COLONOSCOPY WILL BE CANCELLED. Hernandez Instructions: Your bowel must be empty so that your doctor can clearly view your colon. Follow all of the instructions in this handout EXACTLY as they are written. Do NOT eat any solid food the ENTIRE day before your colonoscopy. Drink only clear liquids. Buy your bowel preparation at least 5 days before your colonoscopy. TRANSPORTATION on the Day of Your Exam A responsible person MUST be present with you at Check In prior to your colonoscopy and REMAIN in the endoscopy area until you are discharged. You are NOT ALLOWED to drive, take a taxi or bus, or leave the Endoscopy Center ALONE. If you do not have a responsible dedicated driver (family member or friend) with you to take you home, your exam cannot be done with sedation and will be cancelled. Please bring a list of all of your current medications, including any Over-the Counter medications with you. Medications If you take insulin, diabetic medications or blood thinners such as Coumadin (warfarin), Plavix (clopidogrel), Ticlid (ticlopidine hydrochloride), Agrylin (anagrelide), Xarelto (Rivaroxaban), Pradaxa(Dabigatran), Eliquis (Apixaban), and Effient (Prasugrel). You MUST call the doctors who orders those medicines for instructions on altering the dosage before your colonoscopy. All other medications should be taken the day of the exam with a sip of water including ASPIRIN. Five (5) Days Before Your Colonoscopy Do NOT take medicines that stop diarrhea - such as Imodium, Kaopectate, or Pepto Bismol. Do NOT take fiber supplements - such as Metamucil, Citrucel, or Perdiem. Do NOT take products that contain iron - such as multi-vitamins (the label lists what is in the products). Do NOT take Vitamin E. Buy the prescription bowel preparation solution at your local pharmacy or drugstore pharmacy. 02/2019 Bowel Preparation Instructions for: Golytely, Nulytely, Trilyte or Colyte (polyethylene glycol 3350and electrolytes) Three (3) Days Before Your Colonoscopy Do NOT eat high-fiber foods - such as popcorn, beans, seeds (flax, sunflower, quinoa), multigrain bread, nuts, salad/vegetables, or fresh and dried fruit. One (1) Day Before Your Colonoscopy Only drink clear liquids the ENTIRE DAY before your colonoscopy. Do NOT eat any solid foods. Drink at least 8 ounces of clear liquids every hour after waking up. The clear liquids you can drink include: Clear Liquid (NO RED LIQUIDS) DO NOT DRINK Gatorade, Pedialyte or Powerade Clear broth or bouillon Coffee or tea (no milk or non-dairy creamer) Carbonated and non-carbonated soft drinks Dragan-Aid or other fruit flavored drinks Strained fruit juices (no pulp) Jell-O, popsicles, hard candy Water Alcohol Milk or non-dairy creamers Noodles or vegetables in soup Juice with pulp Liquid you cannot see through Do not use tobacco/vaping products The bowel preparation solution will be consumed in two parts. Mix the solution the evening before your colonoscopy and refrigerate before drinking. You may add the flavor pack that came with the bowel preparation. Do NOT add ice, sugar or any other flavorings to the solution. Part 1 At 6:00 PM - Evening before your colonoscopy Drink an 8-oz glass of bowel preparation every 10 minutes until clear You may continue to drink clear liquids until midnight. 2 02/2019 documented in this encounterOur [facility]09-[facility]23 Nurse Note* Cierra Morales RN - 11/22/2022 11:20 AM EDT REVIEW OF SYSTEMS: General: The patient NOTES fatigue, NOTES weight loss, denies weight gain, denies feeling hot, and denies feelings of cold. Eyes: The patient denies glaucoma, denies eye injury/surgery, wears glasses or contacts. Ear/Nose/Throat: The patient NOTES allergies, denies hayfever, denies ear infections, and denies bloody noses. Cardiovascular: The patient denies chest pain, denies heart disease, denies high blood pressure,denies cardiac stent, denies prior heart attack, denies irregular heart beat, denies high cholesterol, denies poor circulation, denies heart failure, other cardiac issues, denies claudication, denies cold feet, denies peripheral arterial stent. Respiratory: The patient denies tuberculosis, denies pneumonia, denies frequent cough, denies pulmonary embolism, denies shortness of breath, and denies coughing up blood. Gastrointestinal: The patient denies difficulty swallowing, NOTES acid reflux, denies ulcers, denies vomiting, denies jaundice/hepatitis, denies gallbladder problems, denies black or tarry stools, denies hemorrhoids, denies bleeding from rectum, NOTES diverticulitis, denies constipation, NOTES diarrhea, denies loss of stool control, and denies hernias. Kidney/Bladder: The patient denies kidney stones, denies urine infections, and denies bloody urine. Skin: The patient denies a history of skin cancer, denies bleeding/changing moles, and denies a history of skin rash. Neurologic: The patient denies a history of epilepsy/convulsions, denies headaches, denies head/spinal injuries, and denies stroke/TIA. Psychiatric: The patient denies psychiatric medications, denies depression, and denies voices, denies substance abuse. Endocrine: The patient denies thyroid disorders, denies diabetes, and denies hormonal problems. Hematologic: The patient denies a history of bruising, denies bleeding, and denies anemia, denies blood clots. Infections: The patient denies a history of measles and mumps, denies rheumatic fever, and denies sexually transmitted diseases. Musculoskeletal: The patient denies back pain/injury, denies back problems, denies sciatica, deniesknee/foot trouble, denies arthritis, or denies gout. When was patient's last Mammogram screening? N/A Last Colonoscopy: 04/03/2021 Cierra Morales, YANIRA documented in this encounterOur [facility]06-22-2023 Miscellaneous Notes* Telephone Encounter - Deepti PierreIVANA - 09/12/2022 1:43 PM EDT Patients spouse called stating patient was in [facility] ED on 09/11/22 for severe abdominal pain. States patient is having pain at the site of his divertiuclitis, the area feels like a grapefruit. States CT showed stool in this area. States patient is also spitting up blood, bleeding from rectum.Patient was prescribed miralax, pepcid, zofran by ER. states she wants to see Nathaly. Advised patient Dr. Andersen is out of office until FridaySeptember 17. Offered OV at 4p.m. accepted visit. Confirmed OV on 09/17/22 @ 4p. Patient verbalized understanding. Advised that if symptoms worsen please visit nearest ER, Patient verbalized understanding. Requested ER visit report, CT report & images. Deepti Pierre LPN documented in this encounterOur [facility]06-22-2023 Hospital Discharge instructions Patient Education 09/12/2022 03:27:24 Abdominal Pain Abdominal Pain Abdominal pain is pain in the stomach or belly area. Everyone has this pain from time to time. In many cases it goes away on its own. But abdominal pain can sometimes be due to a serious problem, such as appendicitis. So it s important to know when to get help. Causes of abdominal pain There are many possible causes of abdominal pain. Common causes in adults include: Constipation, diarrhea, or gas Stomach acid flowing back up into the esophagus (acid reflux or heartburn) Severe acid reflux, called GERD (gastroesophageal reflux disease) A sore in the lining of the stomach or small intestine (peptic ulcer) Inflammation of the gallbladder, liver, or pancreas Gallstones or kidney stones Appendicitis Intestinal blockage An internal organ pushing through a muscle or other tissue (hernia) Urinary tract infections In women, menstrual cramps, fibroids, ovarian cysts, pelvic inflammatory disease, or endometriosis Inflammation or infection of the intestines, including Crohn's disease and ulcerative colitis Irritable bowel syndrome Diagnosing the cause of abdominal pain Your healthcare provider will give you a physical exam help find the cause of your pain. If needed,you will have tests. Belly pain has many possible causes. So it can be hard to find the reason for your pain. Giving details about your pain can help. Tell your provider where and when you feel the pain, and what makes it better or worse. Also let your provider know if you have other symptoms such as: Fever Tiredness Upset stomach (nausea) Vomiting Changes in bathroom habits Blood in the stool or black, tarry stool Weight loss that you can't explain (involuntary weight loss?) Also report any family history of stomach or intestinal problems, or cancers. Tell your provider about all your alcohol use and drug use. Tell your provider about all medicines you use, including herbs, vitamins, and supplements. Treating abdominal pain Some causes of pain need emergency medical treatment right away. These include appendicitis or a bowel blockage. Other problems can be treated with rest, fluids, or medicines. Your healthcare provider can give you specific instructions for treatment or self-care based on what is causing your pain. If you have vomiting or diarrhea, sip water or other clear fluids. When you are ready to eat solid foods again, start with small amounts of gkvx-[id number], low- fat foods. These include apple sauce, toast, or crackers. When to get medical care Call 911 or go to the hospital right away if you: Can t pass stool and are vomiting Are vomiting blood or have bloody diarrhea or black, tarry diarrhea Have chest, neck, or shoulder pain Feel like you might pass out Have pain in your shoulder blades with nausea Have sudden, severe belly pain Have new, severe pain unlike any you have felt before Have a belly that is rigid, hard, and hurts to touch Call your healthcare provider if you have: Pain for more than 5 days Bloating for more than 2 days Diarrhea for more than 5 days A fever of 100.4 F (38 C) or higher, or as directed by your healthcare provider Pain that gets worse Weight loss for no reason Continued lack of appetite Blood in your stool How to prevent abdominal pain Here are some tips to help prevent abdominal pain: Eat smaller amounts of food at each meal. Don't eat greasy, fried, or other high-fat foods. Don't eat foods that give you gas. Exercise regularly. Drink plenty of fluids. To help prevent GERD symptoms: Quit smoking. Reduce alcohol and foods that increase stomach acid. Don't use aspirin or best-xce-tbasizy pain and fever medicines, if possible. This includes nonsteroidal anti-inflammatory drugs (NSAIDs). Lose excess weight. Finish eating at least 2 hours before you go to bed or lie down. Raise the head of your bed. [id number] [employer]. [address] [place] [address]. All rights reserved. This information is not intended as a substitute for professional medical care. Always follow yourhealthcare professional's instructions. Follow Up Care 09/12/2022 00:05:07 With:PHYSICIAN, PATIENT UNSURE Address:Unknown When:2-4 days [facility]23 Note ORIGINAL EXAMINATION: CT OF THE ABDOMEN AND PELVIS WITHOUT CONTRAST 09/12/2022 2:38 am TECHNIQUE: CT of the abdomen and pelvis was performed without the administration of intravenous contrast. Multiplanar reformatted images are provided for review. Automated exposure control, iterative reconstruction, and/or weight based adjustment of the mA/kV was utilized to reduce the radiation dose to as low as reasonably achievable. COMPARISON: None. HISTORY: ORDERING SYSTEM PROVIDED HISTORY: Reason for Exam: abdominal pain FINDINGS: Degenerative changes of the spine. Stable scarring in the left lung base. Small sliding hiatal hernia with surrounding fat. Unremarkable liver. Status post cholecystectomy. The spleen, pancreas, and adrenal glands are unremarkable. Symmetric kidney size. No evidence of hydronephrosis or nephrolithiasis. The ureters are normal in course and caliber. Portacaval lymph node measures up to 1.2 cm, considered normal for location. Otherwise no abdominal lymphadenopathy, free fluid, or intraperitoneal free air identified. Anastomotic suture material seen at the distal sigmoid colon. The large and small bowel are otherwise unremarkable. Distended urinary bladder without wall thickening or obvious focal mass. Bilateral right greater than left fat containing inguinal hernias. Fat containing umbilical hernia. IMPRESSION: No acute findings to explain patient's symptoms. Chronic, postsurgical, and incidental findings as above. I have personally reviewed the images of this examination and agree with the resident's findings and interpretation. Interpreted by: Álvaro Benitez MD Preliminary Report By: Sal Huggins Electronically signed By Álvaro Benitez MD Dictated Date: 09/12/2022 2:49:14 AM Prelim Date: 09/12/2022 2:59:40 AM Sign Date: 09/12/2022 4:48:28 AM Ordering Provider: [facility]06-22-2023 Note Discharge Instructions Thank you for allowing [place] to assist you with your healthcare needs. The following is importantdischarge information regarding your hospital visit. Diagnosis from Today's Visit Abdominal pain What to Do Next Instructions from Your Care Team No qualifying data available. Post Acute Orders No qualifying data available. You Need to Schedule the Following Appointments Follow Up with PHYSICIAN, PATIENT UNSURE When Within 2-4 days Allergies codeine (Swelling of throat, Hives) Latex Vicodin (Hives) Medications Please ask your primary doctor or pharmacist before taking any other medication not listed, including over the counter drugs, herbal medications, vitamins and or supplements as they may interact withyour home medications. What How Much When Why Instructions Last Dose New ondansetron (ondansetron 4 mg oral tablet, disintegrating) 1 tab(s) by mouth Every 8 hours Duration: 3 Days Printed Prescription New polyethylene glycol 3350 (MiraLax oral powder for reconstitution) 17 gram(s) by mouth Three (3) times a day Duration: 3 Days Printed Prescription Changed dicyclomine (dicyclomine 10 mg oral capsule) 1 cap by mouth Four (4) times a day Duration: 5 Days Printed Prescription Changed dicyclomine (dicyclomine 20 mg oral tablet) 1 tab(s) by mouth Four (4) times a day as needed for abdominal discomfort Diarrhea and vomiting Gastroenteritis Duration: 3 Days Unchanged aspirin (aspirin 81 mg oral tablet, chewable) 1 tab(s) by mouth Once a day with a meal Duration: 30 Days Unchanged metroNIDAZOLE (metroNIDAZOLE 500 mg oral tablet) 1 tab(s) by mouth Every 8 hours Lower GI bleeding Duration: 5 Days Please take this list to your next doctor s visit. Bring all medications you take, including over the counter medications, herbals and other supplements with you to your doctor s visit. Patients and families are reminded to discard old lists and to update any records with all medication providers or retail pharmacies. Medication Leaflets ondansetron (oral) (on SHARONA se raul) Mik Houser Zuplenz What is the most important information I should know about ondansetron? You should not use ondansetron if you are also using apomorphine (Apokyn). What is ondansetron? Ondansetron blocks the actions of chemicals in the body that can trigger nausea and vomiting. Ondansetron is used to prevent nausea and vomiting that may be caused by surgery, cancer chemotherapy, or radiation treatment. Ondansetron may be used for purposes not listed in this medication guide. What should I discuss with my health care provider before taking ondansetron? You should not use ondansetron if: you are also using apomorphine (Apokyn); or you are allergic to ondansetron or similar medicines (dolasetron, granisetron, palonosetron). To make sure ondansetron is safe for you, tell your doctor if you have: liver disease; an electrolyte imbalance (such as low levels of potassium or magnesium in your blood); congestive heart failure, slow heartbeats; a personal or family history of long QT syndrome; or a blockage in your digestive tract (stomach or intestines). Ondansetron is not expected to harm an unborn baby. Tell your doctor if you are . It is not known whether ondansetron passes into breast milk or if it could harm a nursing baby. Tell your doctor if you are breast-feeding a baby. Ondansetron is not approved for use by anyone younger than 4 years old. Ondansetron orally disintegrating tablets may contain phenylalanine. Tell your doctor if you have phenylketonuria (PKU). How should I take ondansetron? Follow all directions on your prescription label. Do not take this medicine in larger or smaller amounts or for longer than recommended. Ondansetron can be taken with or without food. The first dose of ondansetron is usually taken before the start of your surgery, chemotherapy, or radiation treatment. Follow your doctor's dosing instructions very carefully. Take the ondansetron regular tablet with a full glass of water. To take the orally disintegrating tablet (Zofran ODT): Keep the tablet in its blister pack until you are ready to take it. Open the package and peel back the foil. Do not push a tablet through the foil or you may damage the tablet. Use dry hands to remove the tablet and place it in your mouth. Do not swallow the tablet whole. Allow it to dissolve in your mouth without chewing. Swallow several times as the tablet dissolves. To use ondansetron oral soluble film (strip) (Zuplenz): Keep the strip in the foil pouch until you are ready to use the medicine. Using dry hands, remove the strip and place it on your tongue. It will begin to dissolve right away. Do not swallow the strip whole. Allow it to dissolve in your mouth without chewing. Swallow several times after the strip dissolves. If desired, you may drink liquid to help swallow the dissolved strip. Wash your hands after using Zuplenz. Measure liquid medicine with the dosing syringe provided, or with a special dose-measuring spoon ormedicine cup. If you do not have a dose-measuring device, ask your pharmacist for one. Store at room temperature away from moisture, heat, and light. Store liquid medicine in an upright position. What happens if I miss a dose? Take the missed dose as soon as you remember. Skip the missed dose if it is almost time for your next scheduled dose. Do not take extra medicine to make up the missed dose. What happens if I overdose? Seek emergency medical attention or call the Poison Help line at . Overdose symptoms may include sudden loss of vision, severe constipation, feeling light-headed, or fainting. What should I avoid while taking ondansetron? Ondansetron may impair your thinking or reactions. Be careful if you drive or do anything that requires you to be alert. What are the possible side effects of ondansetron? Get emergency medical help if you have signs of an allergic reaction: rash, hives; fever, chills, difficult breathing; swelling of your face, lips, tongue, or throat. Call your doctor at once if you have: severe constipation, stomach pain, or bloating; headache with chest pain and severe dizziness, fainting, fast or pounding heartbeats; fast or pounding heartbeats; jaundice (yellowing of the skin or eyes); blurred vision or temporary vision loss (lasting from only a few minutes to several hours); high levels of serotonin in the body--agitation, hallucinations, fever, fast heart rate, overactivereflexes, nausea, vomiting, diarrhea, loss of coordination, fainting. Common side effects may include: diarrhea or constipation; headache; drowsiness; or tired feeling. This is not a complete list of side effects and others may occur. Call your doctor for medical advice about side effects. You may report side effects to FDA at 7-086-LXF-9186. What other drugs will affect ondansetron? Ondansetron can cause a serious heart problem, especially if you use certain medicines at the same time, including antibiotics, antidepressants, heart rhythm medicine, antipsychotic medicines, and medicines to treat cancer, malaria, HIV or AIDS. Tell your doctor about all medicines you use, and those you start or stop using during your treatment with ondansetron. Taking ondansetron while you are using certain other medicines can cause high levels of serotonin to build up in your body, a condition called 'serotonin syndrome,' which can be fatal. Tell your doctor if you also use: medicine to treat depression; medicine to treat a psychiatric disorder; a narcotic (opioid) medication; or medicine to prevent nausea and vomiting. This list is not complete and many other drugs can interact with ondansetron. This includes prescription and kkjm-nck-ahuuzot medicines, vitamins, and herbal products. Give a list of all your medicines to any healthcare provider who treats you. Where can I get more information? Your pharmacist can provide more information about ondansetron. Remember, keep this and all other medicines out of the reach of children, never share your medicines with others, and use this medication only for the indication prescribed. Every effort has been made to ensure that the information provided by [employer]. ('[employer]') is accurate, up-to-date, and complete, but no guarantee is made to that effect. Drug information contained herein may be time sensitive. [employer] information has been compiled for use by healthcare practitioners and consumers in the [place] and therefore [employer] does not warrant that uses outside of the [place] are appropriate, unless specifically indicated otherwise. [employer] drug information does not endorse drugs, diagnose patients or recommend therapy. [employer] drug information isan informational resource designed to assist licensed healthcare practitioners in caring for their p atients and/or to serve consumers viewing this service as a supplement to, and not a substitute for, the expertise, skill, knowledge and judgment of healthcare practitioners. The absence of a warningfor a given drug or drug combination in no way should be construed to indicate that the drug or drug combination is safe, effective or appropriate for any given patient. [employer] does not assume any responsibility for any aspect of healthcare administered with the aid of information [employer] provides. The information contained herein is not intended to cover all possible uses, directions, precautions, warnings, drug interactions, allergic reactions, or adverse effects. If you have questions about the drugs you are taking, check with your doctor, nurse or pharmacist. Copyright 9560-6299 [employer]. Version: 13.01. Revision Date: 01/12/2016. dicyclomine (oral/injection) (minerva wisdom) Danish, Melissa, Dicyclocot What is the most important information I should know about dicyclomine? Many drugs can affect dicyclomine. Tell your doctor about all your current medicines. What is dicyclomine? Dicyclomine is used to treat functional bowel or irritable bowel syndrome. Dicyclomine may also be used for purposes not listed in this medication guide. What should I discuss with my healthcare provider before taking dicyclomine? You should not use dicyclomine if you are allergic to it, or if you have: glaucoma; a bladder obstruction or other urination problems; a blockage in your digestive tract (stomach or intestines); severe ulcerative colitis; gastroesophageal reflux disease (GERD); a serious heart condition and active bleeding; myasthenia gravis; or if you are a baby. Not approved for use by anyone younger than 18 years old. Dicyclomine should never be given to a child younger than 6 months old. Tell your doctor if you have ever had: heart problems or high blood pressure; a stroke; ulcerative colitis; an ileostomy or colostomy; an enlarged prostate; or liver or kidney disease. Older adults may be more sensitive to the effects of this medicine. Tell your doctor if you are . Do not breastfeed. How should I take dicyclomine? Follow all directions on your prescription label and read all medication guides or instruction sheets. Your doctor may occasionally change your dose. Use the medicine exactly as directed. Dicyclomine oral is taken by mouth. Measure liquid medicine with the supplied syringe or a dose-measuring device (not a kitchen spoon). Dicyclomine injection is given in a muscle if you are unable to take the medicine by mouth. Call your doctor if your symptoms do not improve after 2 weeks. Store at room temperature away from moisture and heat. What happens if I miss a dose? Skip the missed dose and use your next dose at the regular time. Do not use two doses at one time. What happens if I overdose? Seek emergency medical attention or call the Poison Help line at . Overdose can cause nausea, vomiting, dilated pupils, weakness or loss of movement in any part of your body, trouble swallowing, fainting, or seizure (convulsions). What should I avoid while taking dicyclomine? May cause dizziness or blurred vision. Avoid driving or hazardous activity until you know how this medicine will affect you. Avoid becoming overheated or dehydrated during exercise and in hot weather. Dicyclomine can decrease sweating and you may be more prone to heat stroke. Tell your doctor if you have a fever while taking dicyclomine. Avoid using an antacid. Antacids can make it harder for your body to absorb dicyclomine oral. What are the possible side effects of dicyclomine? Get emergency medical help if you have signs of an allergic reaction: hives; difficult breathing; swelling of your face, lips, tongue, or throat. Call your doctor at once if you have: fast or slow heartbeats, pounding heartbeats or fluttering in your chest; confusion, agitation, hallucinations, unusual thoughts or behavior; problems with memory or speech; problems with balance or muscle movement; diarrhea, severe constipation, or worsening of bowel symptoms; trouble swallowing; bruising, swelling, or pain where a dicyclomine injection was given; or dehydration --dizziness, confusion, feeling very thirsty, less urination or sweating. Confusion and mood or behavior changes may be more likely in older adults. Common side effects may include: drowsiness, dizziness, weakness, nervousness; blurred vision; dry mouth; or nausea. This is not a complete list of side effects and others may occur. Call your doctor for medical advice about side effects. You may report side effects to FDA at 0-325-EHL-1823. What other drugs will affect dicyclomine? Using dicyclomine with other drugs that make you drowsy can worsen this effect. Ask your doctor before using opioid medication, a sleeping pill, a muscle relaxer, or medicine for anxiety or seizures. Tell your doctor about all your current medicines. Many drugs can affect dicyclomine, especially: bronchodilator asthma medication; cold or allergy medicine (Benadryl and others); glaucoma medication; heart medication; medicine to treat depression, anxiety, mood disorders, or mental illness; medicine to treat overactive bladder; medicine to treat Parkinson's disease; or medicine to treat stomach problems, motion sickness, or irritable bowel syndrome. This list is not complete and many other drugs may affect dicyclomine. This includes prescription and jaha-gfb-komippv medicines, vitamins, and herbal products. Not all possible drug interactions arelisted here. Where can I get more information? Your pharmacist can provide more information about dicyclomine. Remember, keep this and all other medicines out of the reach of children, never share your medicines with others, and use this medication only for the indication prescribed. Every effort has been made to ensure that the information provided by [employer]. ('[employer]') is accurate, up-to-date, and complete, but no guarantee is made to that effect. Drug information contained herein may be time sensitive. [employer] information has been compiled for use by healthcare practitioners and consumers in the [place] and therefore [employer] does not warrant that uses outside of the [place] are appropriate, unless specifically indicated otherwise. [employer] drug information does not endorse drugs, diagnose patients or recommend therapy. [employer] drug information isan informational resource designed to assist licensed healthcare practitioners in caring for their p atients and/or to serve consumers viewing this service as a supplement to, and not a substitute for, the expertise, skill, knowledge and judgment of healthcare practitioners. The absence of a warningfor a given drug or drug combination in no way should be construed to indicate that the drug or drug combination is safe, effective or appropriate for any given patient. [employer] does not assume any responsibility for any aspect of healthcare administered with the aid of information [employer] provides. The information contained herein is not intended to cover all possible uses, directions, precautions, warnings, drug interactions, allergic reactions, or adverse effects. If you have questions about the drugs you are taking, check with your doctor, nurse or pharmacist. Copyright 3375-9901 [employer]. Version: 6.01. Revision Date: 09/28/2020. polyethylene glycol 3350 (bernardino ee ETH il een GLYE kol) ClearLax, GaviLAX, Gialax, GlycoLax, MiraLax, ACY0933, [employer] ClearLax What is the most important information I should know about polyethylene glycol 3350? You should not use this medicine if you have a bowel obstruction or intestinal blockage. If you have any of these conditions, you could have dangerous or life- threatening side effects from polyethylene glycol 3350. Do not use polyethylene glycol 3350 more than once per day. Call your doctor if you are still constipated or irregular after using this medication for 7 days in a row. What is polyethylene glycol 3350? Polyethylene glycol 3350 is a laxative solution that increases the amount of water in the intestinal tract to stimulate bowel movements. Polyethylene glycol 3350 is used as a laxative to treat occasional constipation or irregular bowel movements. Polyethylene glycol 3350 may also be used for purposes not listed in this medication guide. What should I discuss with my healthcare provider before taking polyethylene glycol 3350? You should not use this medicine if you are allergic to polyethylene glycol, or if you have a bowelobstruction or intestinal blockage. If you have any of these conditions, you could have dangerous or life-threatening side effects from polyethylene glycol 3350. People with eating disorders (such as anorexia or bulimia) should not use this medication without the advice of a doctor. To make sure this medicine is safe for you, tell your doctor if you have: nausea, vomiting, or severe stomach pain; ulcerative colitis; irritable bowel syndrome; kidney disease; or if you have had a sudden change in bowel habits that has lasted 2 weeks or longer. FDA category C. It is not known whether polyethylene glycol 3350 will harm an unborn baby. Tell your doctor if you are or plan to become while using this medication. It is not known whether polyethylene glycol 3350 passes into breast milk or if it could harm a nursing baby. Tell your doctor if you are breast-feeding a baby. How should I take polyethylene glycol 3350? Follow all directions on your prescription label. Do not use this medicine in larger or smaller amounts or for longer than recommended. To use the powder form of this medicine, measure your dose with the medicine cap on the bottle. This cap should contain dose madrid on the inside of it. Pour the powder into 4 to 8 ounces of a cold orhot beverage such as water, juice, soda, coffee, or tea. Stir this mixture and drink it right away.Do not save for later use. Polyethylene glycol 3350 should produce a bowel movement within 1 to 3 days of using the medication. Polyethylene glycol 3350 normally causes loose or even watery stools. Do not use polyethylene glycol 3350 more than once per day. Call your doctor if you are still constipated or irregular after using this medication for 7 days in a row. Store at room temperature away from moisture and heat. What happens if I miss a dose? Take the missed dose as soon as you remember. Skip the missed dose if it is almost time for your next scheduled dose. Do not take extra medicine to make up the missed dose. What happens if I overdose? Seek emergency medical attention or call the Poison Help line at . What should I avoid while taking polyethylene glycol 3350? Follow your doctor's instructions about any restrictions on food, beverages, or activity. What are the possible side effects of polyethylene glycol 3350? Get emergency medical help if you have signs of an allergic reaction: hives; difficult breathing; swelling of your face, lips, tongue, or throat. Stop taking this medicine and call your doctor at once if you have: severe or bloody diarrhea; rectal bleeding; blood in your stools; or severe and worsening stomach pain. Common side effects may include: bloating, gas, upset stomach; dizziness; or increased sweating. This is not a complete list of side effects and others may occur. Call your doctor for medical advice about side effects. You may report side effects to FDA at 5-652-TWW-8239. What other drugs will affect polyethylene glycol 3350? Other drugs may interact with polyethylene glycol 3350, including prescription and ibuy-abz-bttpcliwinjyfeea, vitamins, and herbal products. Tell each of your health care providers about all medicines you use now and any medicine you start or stop using. Where can I get more information? Your pharmacist can provide more information about polyethylene glycol 3350. Remember, keep this and all other medicines out of the reach of children, never share your medicines with others, and use this medication only for the indication prescribed. Every effort has been made to ensure that the information provided by [employer]. ('[employer]') is accurate, up-to-date, and complete, but no guarantee is made to that effect. Drug information contained herein may be time sensitive. [employer] information has been compiled for use by healthcare practitioners and consumers in the [place] and therefore [employer] does not warrant that uses outside of the [place] are appropriate, unless specifically indicated otherwise. [employer] drug information does not endorse drugs, diagnose patients or recommend therapy. [employer] drug information isan informational resource designed to assist licensed healthcare practitioners in caring for their p atients and/or to serve consumers viewing this service as a supplement to, and not a substitute for, the expertise, skill, knowledge and judgment of healthcare practitioners. The absence of a warningfor a given drug or drug combination in no way should be construed to indicate that the drug or drug combination is safe, effective or appropriate for any given patient. [employer] does not assume any responsibility for any aspect of healthcare administered with the aid of information [employer] provides. The information contained herein is not intended to cover all possible uses, directions, precautions, warnings, drug interactions, allergic reactions, or adverse effects. If you have questions about the drugs you are taking, check with your doctor, nurse or pharmacist. Copyright 9108-2318 [employer]. Version: 2.04. Revision Date: 06/26/2016. Education Materials Abdominal Pain Abdominal pain is pain in the stomach or belly area. Everyone has this pain from time to time. In many cases it goes away on its own. But abdominal pain can sometimes be due to a serious problem, such as appendicitis. So it s important to know when to get help. Causes of abdominal pain There are many possible causes of abdominal pain. Common causes in adults include: Constipation, diarrhea, or gas Stomach acid flowing back up into the esophagus (acid reflux or heartburn) Severe acid reflux, called GERD (gastroesophageal reflux disease) A sore in the lining of the stomach or small intestine (peptic ulcer) Inflammation of the gallbladder, liver, or pancreas Gallstones or kidney stones Appendicitis Intestinal blockage An internal organ pushing through a muscle or other tissue (hernia) Urinary tract infections In women, menstrual cramps, fibroids, ovarian cysts, pelvic inflammatory disease, or endometriosis Inflammation or infection of the intestines, including Crohn's disease and ulcerative colitis Irritable bowel syndrome Diagnosing the cause of abdominal pain Your healthcare provider will give you a physical exam help find the cause of your pain. If needed,you will have tests. Belly pain has many possible causes. So it can be hard to find the reason for your pain. Giving details about your pain can help. Tell your provider where and when you feel the pain, and what makes it better or worse. Also let your provider know if you have other symptoms such as: Fever Tiredness Upset stomach (nausea) Vomiting Changes in bathroom habits Blood in the stool or black, tarry stool Weight loss that you can't explain (involuntary weight loss?) Also report any family history of stomach or intestinal problems, or cancers. Tell your provider about all your alcohol use and drug use. Tell your provider about all medicines you use, including herbs, vitamins, and supplements. Treating abdominal pain Some causes of pain need emergency medical treatment right away. These include appendicitis or a bowel blockage. Other problems can be treated with rest, fluids, or medicines. Your healthcare provider can give you specific instructions for treatment or self-care based on what is causing your pain. If you have vomiting or diarrhea, sip water or other clear fluids. When you are ready to eat solid foods again, start with small amounts of zowm-xc-bpjhis, low- fat foods. These include apple sauce, toast, or crackers. When to get medical care Call 911 or go to the hospital right away if you: Can t pass stool and are vomiting Are vomiting blood or have bloody diarrhea or black, tarry diarrhea Have chest, neck, or shoulder pain Feel like you might pass out Have pain in your shoulder blades with nausea Have sudden, severe belly pain Have new, severe pain unlike any you have felt before Have a belly that is rigid, hard, and hurts to touch Call your healthcare provider if you have: Pain for more than 5 days Bloating for more than 2 days Diarrhea for more than 5 days A fever of 100.4 F (38 C) or higher, or as directed by your healthcare provider Pain that gets worse Weight loss for no reason Continued lack of appetite Blood in your stool How to prevent abdominal pain Here are some tips to help prevent abdominal pain: Eat smaller amounts of food at each meal. Don't eat greasy, fried, or other high-fat foods. Don't eat foods that give you gas. Exercise regularly. Drink plenty of fluids. To help prevent GERD symptoms: Quit smoking. Reduce alcohol and foods that increase stomach acid. Don't use aspirin or hpca-xrk-bmlsxbq pain and fever medicines, if possible. This includes nonsteroidal anti-inflammatory drugs (NSAIDs). Lose excess weight. Finish eating at least 2 hours before you go to bed or lie down. Raise the head of your bed. 7166-4153 [employer]. [address] [place] [address]. All rights reserved. This information is not intended as a substitute for professional medical care. Always follow yourhealthcare professional's instructions. Additional Information VACCINATE! IT SAVES LIVES! Members of the community who have not yet received the COVID-19 vaccine and would like to receive it can visit one of [facility] vaccine clinics. There are many vaccine clinic locations within the [facility]. For locations and available times, please visit [email or web address] It is important to note that some COVID mobile vaccine clinics are held outdoors and may be canceled in rainy or stormy conditions. To learn more about pediatric vaccinations (ages 5-11), we invite you to visit the [facility] webpage. [email or web address] learn more about the COVID-19 vaccine, we invite you to visit the CDC website for a list of frequently asked questions. https://www.cdc.gov/coronavirus/2019-ncov/vaccines/faq.html [email or web address] Patient Portal Access Instructions: Stay connected with your healthcare team and access your personal medical information anytime with the [email or web address] Patient Portal. If you would like a full copy of your medical records please contact the [facility] Medical Records Department Friday through Friday between 8a.m. and 4:30p.m. Please follow the directions below to access the portal: 1.Access the email account you provided upon registration to the [facility].2.Look for an invitation email from [facility].3.Open the email and access the invitation link: Accept Invitation to [email or web address].Fill in the required baugh to create your account. Sign into [email or web address] with your username and password that you created in the above steps to stay up to date. You can then view a summary of results, a summary of your visits, and the ability to download your summaries to your computer or send the information securely to a physician. Remember that your healthcare information is confidential, so carefully consider who you will allow to register on the [email or web address] Patient Portal for access to your information. You can also access the [email or web address] Patient Portal on the [employer]. Simply click on Health Records under .[employer] and then click on the [employer] logo. HOW TO SAFELY DISPOSE OF PRESCRIPTION MEDICATIONS Please use one of the following methods to safely dispose of your unused medications. 1.Use a drug disposal kit: the drug disposal pouch allows you to safely discard your old and unuseddrugs. Ask your nurse to give you one when you are discharged.2.Visit a local take-back location: Many local pharmacies and police departments have programs that collect old and unwanted prescriptiondrugs. Call your local pharmacy or go to http://MMIS.[employer]/[email or web address] to find one close to you.3.Make use of household items: Use cat litter or old coffee grounds to dispose medications if other options arenot available. Mix your drugs with these household products, seal them in an airtight container andthrow it into the garbage. Call [facility]: [phone] to be sure your drugs can be disposed of in this way. Some medicines may require a different approach.4.Never flush your medications down the toilet. IF YOU HAVE BEEN PRESCRIBED AN OPIOIDS FOR PAIN If you have been prescribed an opioid (such as hydrocodone, oxycodone or morphine), it is critical to understand the possible side effects and risks of opioid pain medications. Even when taken as directed, opioids can have several side effects including: Tolerance, meaning you might need to take more of a medication for the same pain relief. Nausea, vomiting and/or constipation. Sleepiness, dizziness, dry mouth, confusion, depression or itching. Physical dependence, meaning you have withdrawal symptoms when a medication is stopped ? this can develop within a few days. KNOW YOUR RESPONSIBILITIES It is important to know exactly how much and how often to take the opioid pain medications you are prescribed. Never take opioids in higher amounts or more often than prescribed. Do not combine opioids with alcohol or other drugs that cause drowsiness, such as benzodiazepines, also known as benzos,including diazepam and alprazolam, muscle relaxants or sleep aids. Never sell or share prescriptionopioids. This is illegal. Store opioids in a secure place and out of reach of others (including children, family, friends and visitors). The last page(s) of this document has been signed and retained as a CHART COPY Signatures Patient Education Materials Abdominal Pain Medication Leaflets ondansetron (oral), dicyclomine (oral/injection), polyethylene glycol 3350 My discharge plan and instructions have been reviewed and explained to me and I,BARRETT LOPEZ understand my current condition and have read and understand these discharge instructions. I have received a written copy of the plan/instructions. If I have questions, I am aware that I should contact my doctor. Patient/Hr Director Signature: Date/Time: Relationship to Patient: Witness Name/Signature: Date/Time: [facility]06-22-2023 Note ORIGINAL EXAMINATION: CT OF THE ABDOMEN AND PELVIS WITHOUT CONTRAST 09/12/2022 2:38 am TECHNIQUE: CT of the abdomen and pelvis was performed without the administration of intravenous contrast. Multiplanar reformatted images are provided for review. Automated exposure control, iterative reconstruction, and/or weight based adjustment of the mA/kV was utilized to reduce the radiation dose to as low as reasonably achievable. COMPARISON: None. HISTORY: ORDERING SYSTEM PROVIDED HISTORY: Reason for Exam: abdominal pain FINDINGS: Degenerative changes of the spine. Stable scarring in the left lung base. Small sliding hiatal hernia with surrounding fat. Unremarkable liver. Status post cholecystectomy. The spleen, pancreas, and adrenal glands are unremarkable. Symmetric kidney size. No evidence of hydronephrosis or nephrolithiasis. The ureters are normal in course and caliber. Portacaval lymph node measures up to 1.2 cm, considered normal for location. Otherwise no abdominal lymphadenopathy, free fluid, or intraperitoneal free air identified. Anastomotic suture material seen at the distal sigmoid colon. The large and small bowel are otherwise unremarkable. Distended urinary bladder without wall thickening or obvious focal mass. Bilateral right greater than left fat containing inguinal hernias. Fat containing umbilical hernia. IMPRESSION: No acute findings to explain patient's symptoms. Chronic, postsurgical, and incidental findings as above. I have personally reviewed the images of this examination and agree with the resident's findings and interpretation. Interpreted by: Álvaro Benitez MD Preliminary Report By: Sal Huggins Electronically signed By Álvaro Benitez MD Dictated Date: 09/12/2022 2:49:14 AM Prelim Date: 09/12/2022 2:59:40 AM Sign Date: 09/12/2022 4:48:28 AM Ordering Provider: [facility]05-12-2023 Hospital Discharge instructions Patient Education 08/01/2022 23:13:20 FOOD POISONING vs Gastro-Ent (6yr - Adult) Food Poisoning or Viral Gastroenteritis (Adult) You have a stomach illness that is likely either food poisoning or viral gastroenteritis. Food poisoning is illness that is passed along in food. It usually occurs from 1 to 24 hours after eating food that has spoiled. It is often caused by toxins from bacteria in food that has not been cooked or refrigerated properly. Viral gastroenteritis is illness from a virus that affects the stomach and intestinal tract. Many people call it the stomach flu, but it has nothing to do with influenza. Either illness can cause these symptoms: Abdominal pain and cramping Nausea Vomiting Diarrhea Fever and chills Loss of bowel control The symptoms of food poisoning usually last 1 to 2 days. The symptoms of viral gastroenteritis usually last 2 to 7 days. Antibiotics are not effective for either illness. Home care Follow all instructions given by your health care provider. Rest at home for the next 24 hours, or until you feel better. Avoid caffeine, tobacco, and alcohol. These can make diarrhea, cramping, and pain worse. If taking medicines: Don t take xuvk-cbc-bypbkij diarrhea or nausea medicines unless your health care provider tells youto. You may use acetaminophen or ibuprofen to reduce pain and fever. Don t use these if you have chronic liver or kidney disease, or ever had a stomach ulcer or GI bleeding. Talk with your health care provider first. To prevent the spread of illness: Remember that washing with soap and water is the best way to prevent the spread of infection. Wash your hands before and after caring for a sick person. Clean the toilet after each use. Wash your hands before eating. Wash your hands before and after preparing food. Keep in mind that people with diarrhea or vomitingshould not prepare food for others. Wash your hands after using cutting boards, counter-tops, and knives that have been in contact withraw foods. Wash and then peel fruits and vegetables. Keep uncooked meats away from cooked and lctws-ue-rku foods. Use a food thermometer when cooking. Cook poultry to at least 165 F (74 C). Cook ground meat (beef,veal, pork, tse) to at least 160 F (71 C). Cook fresh beef, veal, tse, and pork to at least 145 F(63 C). Don t eat raw or undercooked eggs (poached or lesa side up), poultry, meat or unpasteurized milk and juices. Food and drinks The main goal while treating vomiting or diarrhea is to prevent dehydration. This is done by takingsmall amounts of liquids often. Keep in mind that liquids are more important than food right now. Drink only small amounts of liquids at a time. Don t force yourself to eat, especially if you are having cramping, vomiting, or diarrhea. Don t eat large amounts at a time, even if you are hungry. If you eat, avoid fatty, greasy, spicy, or fried foods. Don t eat dairy foods or drink milk if you have diarrhea. These can make diarrhea worse. The first 24 hours you can try: Sport drinks Soft drinks without caffeine Naima boaz Water (plain or flavored) Decaf tea or coffee Clear broth, consomm , or bouillon Gelatin, popsicles, or frozen fruit juice bars The second 24 hours, if you are feeling better, you can add: Hot cereal, plain toast, bread, rolls, or crackers Plain noodles, rice, mashed potatoes, chicken noodle soup, or rice soup Unsweetened canned fruit (no pineapple) Bananas As you recover: Limit fat intake to less than 15 grams per day. Don t eat margarine, butter, oils, mayonnaise, sauces, gravies, fried foods, peanut butter, meat, poultry, or fish. Limit fiber. Don t eat raw or cooked vegetables, fresh fruits except bananas, and bran cereals. Limit caffeine and chocolate. Don t use spices or seasonings except salt. Resume a normal diet over time, as you feel better and your symptoms improve. If the symptoms come back, go back to a simple diet or clear liquids. Follow-up care Follow up with your health care provider, or as advised. If a stool sample was taken or cultures were done, call the health care provider for the results as instructed. Call 911 Call 911 if you have any of these symptoms: Trouble breathing Confusion Extreme drowsiness or trouble walking Loss of consciousness Rapid heart rate Stiff neck Seizure When to seek medical advice Call your health care provider right away if any of these occur: Abdominal pain that gets worse Constant lower right abdominal pain Continued vomiting and inability to keep liquids down Diarrhea more than 5 times a day Blood in vomit or stool Dark urine or no urine for 8 hours, dry mouth and tongue, tiredness, weakness, or dizziness New rash You don t get better in 2 to 3 days Fever of 101.4 F (38.5 C) or higher that doesn t get lower with medicine 7618-0719 [employer]. [address] [place] [address], [place] [address]. All rights reserved. This information is not intended as a substitute for professional medical care. Always follow yourhealthcare professional's instructions. Follow Up Care 08/01/2022 21:14:49 With:Follow up with primary care provider Address:Unknown When:2-4 days [facility] 05-11-2023 Emergency department Discharge summary Discharge Instructions Thank you for allowing [facility] to assist you with your healthcare needs. The following is importantdischarge information regarding your hospital visit. Diagnosis from Today's Visit Diarrhea and vomiting Gastroenteritis Epigastric Pain What to Do Next Instructions from Your Care Team No qualifying data available. Post Acute Orders No qualifying data available. You Need to Schedule the Following Appointments Follow Up with Follow up with primary care provider When Within 2-4 days Allergies codeine (Swelling of throat, Hives) Latex Vicodin (Hives) Medications Please ask your primary doctor or pharmacist before taking any other medication not listed, including over the counter drugs, herbal medications, vitamins and or supplements as they may interact withyour home medications. What How Much When Why Instructions Last Dose New dicyclomine (dicyclomine 20 mg oral tablet) 1 tab(s) by mouth Four (4) times a day as needed for abdominal discomfort Diarrhea and vomiting Gastroenteritis Duration: 3 Days Pickup at [facility][id number] New ondansetron (Zofran 4 mg oral tablet) 1 tab(s) by mouth Every 8 hours as needed for Nausea/Vomiting Diarrhea and vomiting Gastroenteritis Duration: 5 Days Pickup at [id number] Unchanged aspirin (aspirin 81 mg oral tablet, chewable) 1 tab(s) by mouth Once a day with a meal Duration: 30 Days Unchanged metroNIDAZOLE (metroNIDAZOLE 500 mg oral tablet) 1 tab(s) by mouth Every 8 hours Lower GI bleeding Duration: 5 Days Pharmacy Information [id number]: Rob [address] [place], [place] [phone] Please take this list to your next doctor s visit. Bring all medications you take, including over the counter medications, herbals and other supplements with you to your doctor s visit. Patients and families are reminded to discard old lists and to update any records with all medication providers or retail pharmacies. Education Materials Food Poisoning or Viral Gastroenteritis (Adult) You have a stomach illness that is likely either food poisoning or viral gastroenteritis. Food poisoning is illness that is passed along in food. It usually occurs from 1 to 24 hours after eating food that has spoiled. It is often caused by toxins from bacteria in food that has not been cooked or refrigerated properly. Viral gastroenteritis is illness from a virus that affects the stomach and intestinal tract. Many people call it the stomach flu, but it has nothing to do with influenza. Either illness can cause these symptoms: Abdominal pain and cramping Nausea Vomiting Diarrhea Fever and chills Loss of bowel control The symptoms of food poisoning usually last 1 to 2 days. The symptoms of viral gastroenteritis usually last 2 to 7 days. Antibiotics are not effective for either illness. Home care Follow all instructions given by your health care provider. Rest at home for the next 24 hours, or until you feel better. Avoid caffeine, tobacco, and alcohol. These can make diarrhea, cramping, and pain worse. If taking medicines: Don t take ccbr-cpf-cvpraas diarrhea or nausea medicines unless your health care provider tells youto. You may use acetaminophen or ibuprofen to reduce pain and fever. Don t use these if you have chronic liver or kidney disease, or ever had a stomach ulcer or GI bleeding. Talk with your health care provider first. To prevent the spread of illness: Remember that washing with soap and water is the best way to prevent the spread of infection. Wash your hands before and after caring for a sick person. Clean the toilet after each use. Wash your hands before eating. Wash your hands before and after preparing food. Keep in mind that people with diarrhea or vomitingshould not prepare food for others. Wash your hands after using cutting boards, counter-tops, and knives that have been in contact withraw foods. Wash and then peel fruits and vegetables. Keep uncooked meats away from cooked and ffstm-rk-fis foods. Use a food thermometer when cooking. Cook poultry to at least 165 F (74 C). Cook ground meat (beef,veal, pork, tse) to at least 160 F (71 C). Cook fresh beef, veal, tse, and pork to at least 145 F(63 C). Don t eat raw or undercooked eggs (poached or lesa side up), poultry, meat or unpasteurized milk and juices. Food and drinks The main goal while treating vomiting or diarrhea is to prevent dehydration. This is done by takingsmall amounts of liquids often. Keep in mind that liquids are more important than food right now. Drink only small amounts of liquids at a time. Don t force yourself to eat, especially if you are having cramping, vomiting, or diarrhea. Don t eat large amounts at a time, even if you are hungry. If you eat, avoid fatty, greasy, spicy, or fried foods. Don t eat dairy foods or drink milk if you have diarrhea. These can make diarrhea worse. The first 24 hours you can try: Sport drinks Soft drinks without caffeine Naima boaz Water (plain or flavored) Decaf tea or coffee Clear broth, consomm , or bouillon Gelatin, popsicles, or frozen fruit juice bars The second 24 hours, if you are feeling better, you can add: Hot cereal, plain toast, bread, rolls, or crackers Plain noodles, rice, mashed potatoes, chicken noodle soup, or rice soup Unsweetened canned fruit (no pineapple) Bananas As you recover: Limit fat intake to less than 15 grams per day. Don t eat margarine, butter, oils, mayonnaise, sauces, gravies, fried foods, peanut butter, meat, poultry, or fish. Limit fiber. Don t eat raw or cooked vegetables, fresh fruits except bananas, and bran cereals. Limit caffeine and chocolate. Don t use spices or seasonings except salt. Resume a normal diet over time, as you feel better and your symptoms improve. If the symptoms come back, go back to a simple diet or clear liquids. Follow-up care Follow up with your health care provider, or as advised. If a stool sample was taken or cultures were done, call the health care provider for the results as instructed. Call 911 Call 911 if you have any of these symptoms: Trouble breathing Confusion Extreme drowsiness or trouble walking Loss of consciousness Rapid heart rate Stiff neck Seizure When to seek medical advice Call your health care provider right away if any of these occur: Abdominal pain that gets worse Constant lower right abdominal pain Continued vomiting and inability to keep liquids down Diarrhea more than 5 times a day Blood in vomit or stool Dark urine or no urine for 8 hours, dry mouth and tongue, tiredness, weakness, or dizziness New rash You don t get better in 2 to 3 days Fever of 101.4 F (38.5 C) or higher that doesn t get lower with medicine [id number] [employer]. [address] [place] [address], [place] [address]. All rights reserved. This information is not intended as a substitute for professional medical care. Always follow yourhealthcare professional's instructions. Additional Information VACCINATE! IT SAVES LIVES! Members of the community who have not yet received the COVID-19 vaccine and would like to receive it can visit one of [facility] vaccine clinics. There are many vaccine clinic locations within the [facility]. For locations and available times, please visit [email or web address] It is important to note that some COVID mobile vaccine clinics are held outdoors and may be canceled in rainy or stormy conditions. To learn more about pediatric vaccinations (ages 5-11), we invite you to visit the [facility] webpage. [email or web address] learn more about the COVID-19 vaccine, we invite you to visit the CDC website for a list of frequently asked questions. https://www.cdc.gov/coronavirus/2019-ncov/vaccines/faq.html [facility] Patient Portal Access Instructions: Stay connected with your healthcare team and access your personal medical information anytime with the [facility] [employer] Patient Portal. If you would like a full copy of your medical records please contact the [facility] Medical Records Department Friday through Friday between 8a.m. and 4:30p.m. Please follow the directions below to access the portal: 1.Access the email account you provided upon registration to the [facility].2.Look for an invitation email from [facility].3.Open the email and access the invitation link: Accept Invitation to [email or web address].Fill in the required baugh to create your account. Sign into [email or web address] with your username and password that you created in the above steps to stay up to date. You can then view a summary of results, a summary of your visits, and the ability to download your summaries to your computer or send the information securely to a physician. Remember that your healthcare information is confidential, so carefully consider who you will allow to register on the [facility] [employer] Patient Portal for access to your information. You can also access the [email or web address] Patient Portal on the [employer]. Simply click on Health Records under [facility] and then click on the [employer] logo. HOW TO SAFELY DISPOSE OF PRESCRIPTION MEDICATIONS Please use one of the following methods to safely dispose of your unused medications. 1.Use a drug disposal kit: the drug disposal pouch allows you to safely discard your old and unuseddrugs. Ask your nurse to give you one when you are discharged.2.Visit a local take-back location: Many local pharmacies and police departments have programs that collect old and unwanted prescriptiondrugs. Call your local pharmacy or go to http://MMIS.[employer]/3I1Ww6y to find one close to you.3.Make use of household items: Use cat litter or old coffee grounds to dispose medications if other options arenot available. Mix your drugs with these household products, seal them in an airtight container andthrow it into the garbage. Call [facility]: [phone] to be sure your drugs can be disposed of in this way. Some medicines may require a different approach.4.Never flush your medications down the toilet. IF YOU HAVE BEEN PRESCRIBED AN OPIOIDS FOR PAIN If you have been prescribed an opioid (such as hydrocodone, oxycodone or morphine), it is critical to understand the possible side effects and risks of opioid pain medications. Even when taken as directed, opioids can have several side effects including: Tolerance, meaning you might need to take more of a medication for the same pain relief. Nausea, vomiting and/or constipation. Sleepiness, dizziness, dry mouth, confusion, depression or itching. Physical dependence, meaning you have withdrawal symptoms when a medication is stopped ? this can develop within a few days. KNOW YOUR RESPONSIBILITIES It is important to know exactly how much and how often to take the opioid pain medications you are prescribed. Never take opioids in higher amounts or more often than prescribed. Do not combine opioids with alcohol or other drugs that cause drowsiness, such as benzodiazepines, also known as benzos,including diazepam and alprazolam, muscle relaxants or sleep aids. Never sell or share prescriptionopioids. This is illegal. Store opioids in a secure place and out of reach of others (including children, family, friends and visitors). The last page(s) of this document has been signed and retained as a CHART COPY Signatures Patient Education Materials FOOD POISONING vs Gastro-Ent (6yr - Adult) Medication Leaflets My discharge plan and instructions have been reviewed and explained to me and I,BARRETT LOPEZ understand my current condition and have read and understand these discharge instructions. I have received a written copy of the plan/instructions. If I have questions, I am aware that I should contact my doctor. Patient/Hr Director Signature: Date/Time: Relationship to Patient: Witness Name/Signature: Date/Time: [facility]05-11-2023 Note ORIGINAL EXAMINATION: CT OF THE ABDOMEN AND PELVIS WITH CONTRAST 08/01/2022 10:30 pm TECHNIQUE: CT of the abdomen and pelvis was performed with the administration of intravenous contrast. Multiplanar reformatted images are provided for review. Automated exposure control, iterative reconstruction, and/or weight based adjustment of the mA/kV was utilized to reduce the radiation dose to as low as reasonably achievable. COMPARISON: CT abdomen pelvis April 25, 2022 HISTORY: ORDERING SYSTEM PROVIDED HISTORY: Reason for Exam: pain FINDINGS: Lower Chest: Small area of scarring/atelectasis in the left lung base. Organs: Gallbladder not visualized. No focal liver lesions. The spleen, pancreas and adrenal glands are unremarkable. Kidneys enhance symmetrically. No hydronephrosis or hydroureter. GI/Bowel: Prominent nondilated fluid-filled loops of small bowel distally. Fluid in the colon. Submucosal fat deposition of the distal ileum. Rectosigmoid anastomosis. Pelvis: Bladder unremarkable. Prostate normal in size. Peritoneum/Retroperitoneum: Nonaneurysmal abdominal aorta. Similar-appearing prominent in number mesenteric root lymph nodes with mild surrounding haziness. Bones/Soft Tissues: Unchanged fat containing umbilical hernia without evidence of complications. Small fat containing supraumbilical hernia. Anterior abdominal postsurgical change. Old left 6th rib deformity. Unchanged appearance to the inguinal canals. IMPRESSION: Prominent nondilated fluid-filled loops of small bowel distally with fluid in the colon, nonspecific although can be seen in a low-grade enteritis. Submucosal fat deposition of the distal ileum can be seen in obesity or sequelae of chronic inflammation. Interpreted by: Mars Sevilla Preliminary Report By: Mars Sevilla Electronically signed By Mars Sevilla Dictated Date: 08/01/2022 10:35:26 PM Prelim Date: 08/01/2022 10:40:13 PM Sign Date: 08/01/2022 10:40:13 PM Ordering Provider: NIKKI [facility]05-11-2023 Note ORIGINAL EXAMINATION: CT OF THE ABDOMEN AND PELVIS WITH CONTRAST 08/01/2022 10:30 pm TECHNIQUE: CT of the abdomen and pelvis was performed with the administration of intravenous contrast. Multiplanar reformatted images are provided for review. Automated exposure control, iterative reconstruction, and/or weight based adjustment of the mA/kV was utilized to reduce the radiation dose to as low as reasonably achievable. COMPARISON: CT abdomen pelvis April 25, 2022 HISTORY: ORDERING SYSTEM PROVIDED HISTORY: Reason for Exam: pain FINDINGS: Lower Chest: Small area of scarring/atelectasis in the left lung base. Organs: Gallbladder not visualized. No focal liver lesions. The spleen, pancreas and adrenal glands are unremarkable. Kidneys enhance symmetrically. No hydronephrosis or hydroureter. GI/Bowel: Prominent nondilated fluid-filled loops of small bowel distally. Fluid in the colon. Submucosal fat deposition of the distal ileum. Rectosigmoid anastomosis. Pelvis: Bladder unremarkable. Prostate normal in size. Peritoneum/Retroperitoneum: Nonaneurysmal abdominal aorta. Similar-appearing prominent in number mesenteric root lymph nodes with mild surrounding haziness. Bones/Soft Tissues: Unchanged fat containing umbilical hernia without evidence of complications. Small fat containing supraumbilical hernia. Anterior abdominal postsurgical change. Old left 6th rib deformity. Unchanged appearance to the inguinal canals. IMPRESSION: Prominent nondilated fluid-filled loops of small bowel distally with fluid in the colon, nonspecific although can be seen in a low-grade enteritis. Submucosal fat deposition of the distal ileum can be seen in obesity or sequelae of chronic inflammation. Interpreted by: Mars Sevilla Preliminary Report By: Mars Sevilla Electronically signed By Mars Sevilla Dictated Date: 08/01/2022 10:35:26 PM Prelim Date: 08/01/2022 10:40:13 PM Sign Date: 08/01/2022 10:40:13 PM Ordering Provider: [facility]02-12-2023 Hospital Discharge instructions Patient Education 05/05/2022 20:58:20 Palpitations Heart Palpitations Palpitations are the feeling that your heart is beating hard, fast, or irregular. Some describe it as pounding or skipped beats. Palpitations may occur in someone with heart disease, but can alsooccur in a healthy person. Heart-related causes: Arrhythmia (a change from the heart's normal rhythm) Heart valve disease Disease of the heart muscle Coronary artery disease High blood pressure Iqs-nlqoy-iscacut causes: Certain medicines such as asthma inhalers and decongestants Some herbal supplements, energy drinks and pills, and weight loss pills Illegal stimulant drugs such as cocaine, crank, methamphetamine, PCP, bath salts, or ecstasy Caffeine, alcohol, and tobacco Medical conditions such as thyroid disease, anemia, anxiety, and panic disorder Sometimes the cause can't be found. Home care Follow these home care tips: Don't use too much caffeine, alcohol, tobacco, or any stimulant drugs. Tell your doctor about any prescription or sywn-yik-mhxytxs or herbal medicines you take. Follow-up care Follow up with your doctor, or as advised. Call 911 This is the fastest and safest way to get to the emergency department. The paramedics can also begin treatment on the way to the hospital, if needed. Don't wait until your symptoms are severe to call 911. These are reasons to call 911: Chest pain Shortness of breath Feeling lightheaded, faint, or dizzy Fainting or loss of consciousness Very irregular heartbeat Rapid heartbeat that makes you uncomfortable Slower than usual heart rate associated with symptoms Slower than usual heart rate Chest pain with weakness, dizziness, heavy sweating, nausea, or vomiting Extreme drowsiness or confusion Weakness of an arm or leg, or on 1 side of the face Difficulty with speech or vision When to seek medical advice Call your healthcare provider right away if you have palpitations and any of the following: Weakness Dizziness Lightheadedness Fainting 7680-2255 [employer]. [address] [place] [address]. All rights reserved. This information is not intended as a substitute for professional medical care. Always follow yourhealthcare professional's instructions. Follow Up Care 05/05/2022 19:30:46 With:Follow up with primary care provider Address:Unknown When:2-4 days [facility] 02-12-2023 Note Discharge Instructions Thank you for allowing [facility] to assist you with your healthcare needs. The following is importantdischarge information regarding your hospital visit. Diagnosis from Today's Visit Chest pain What to Do Next Instructions from Your Care Team No qualifying data available. Post Acute Orders No qualifying data available. You Need to Schedule the Following Appointments Follow Up with Follow up with primary care provider When Within 2-4 days Allergies codeine (Swelling of throat, Hives) Latex Vicodin (Hives) Medications Please ask your primary doctor or pharmacist before taking any other medication not listed, including over the counter drugs, herbal medications, vitamins and or supplements as they may interact withyour home medications. What How Much When Why Instructions Last Dose Unchanged aspirin (aspirin 81 mg oral tablet, chewable) 1 tab(s) by mouth Once a day with a meal Duration: 30 Days Unchanged metroNIDAZOLE (metroNIDAZOLE 500 mg oral tablet) 1 tab(s) by mouth Every 8 hours Lower GI bleeding Duration: 5 Days Please take this list to your next doctor s visit. Bring all medications you take, including over the counter medications, herbals and other supplements with you to your doctor s visit. Patients and families are reminded to discard old lists and to update any records with all medication providers or retail pharmacies. Education Materials Heart Palpitations Palpitations are the feeling that your heart is beating hard, fast, or irregular. Some describe it as pounding or skipped beats. Palpitations may occur in someone with heart disease, but can alsooccur in a healthy person. Heart-related causes: Arrhythmia (a change from the heart's normal rhythm) Heart valve disease Disease of the heart muscle Coronary artery disease High blood pressure Soe-etukc-hiwzvns causes: Certain medicines such as asthma inhalers and decongestants Some herbal supplements, energy drinks and pills, and weight loss pills Illegal stimulant drugs such as cocaine, crank, methamphetamine, PCP, bath salts, or ecstasy Caffeine, alcohol, and tobacco Medical conditions such as thyroid disease, anemia, anxiety, and panic disorder Sometimes the cause can't be found. Home care Follow these home care tips: Don't use too much caffeine, alcohol, tobacco, or any stimulant drugs. Tell your doctor about any prescription or xpoj-sij-louqylq or herbal medicines you take. Follow-up care Follow up with your doctor, or as advised. Call 911 This is the fastest and safest way to get to the emergency department. The paramedics can also begin treatment on the way to the hospital, if needed. Don't wait until your symptoms are severe to call 911. These are reasons to call 911: Chest pain Shortness of breath Feeling lightheaded, faint, or dizzy Fainting or loss of consciousness Very irregular heartbeat Rapid heartbeat that makes you uncomfortable Slower than usual heart rate associated with symptoms Slower than usual heart rate Chest pain with weakness, dizziness, heavy sweating, nausea, or vomiting Extreme drowsiness or confusion Weakness of an arm or leg, or on 1 side of the face Difficulty with speech or vision When to seek medical advice Call your healthcare provider right away if you have palpitations and any of the following: Weakness Dizziness Lightheadedness Fainting [phone] [employer]. [address] [place] [address], [place] [address]. All rights reserved. This information is not intended as a substitute for professional medical care. Always follow yourhealthcare professional's instructions. Additional Information VACCINATE! IT SAVES LIVES! Members of the community who have not yet received the COVID-19 vaccine and would like to receive it can visit one of [facility] vaccine clinics. There are many vaccine clinic locations within the [facility]. For locations and available times, please visit [email or web address]. It is important to note that some COVID mobile vaccine clinics are held outdoors and may be canceled in rainy orstormy conditions. To learn more about pediatric vaccinations (ages 5-11), we invite you to visit the [facility] webpage. [email or web address]/pages/[email or web address]-Jtevwqqbugh-Pdtakcafro-Ekypm-Vld stions.htmlTo learn more about the COVID-19 vaccine, we invite you to visit the [facility] website for a list of frequently asked questions. [email or web address] Patient Portal Access Instructions: Stay connected with your healthcare team and access your personal medical information anytime with the [email or web address] Patient Portal. If you would like a full copy of your medical records please contact the [facility] Medical Records Department Friday through Friday between 8a.m. and 4:30p.m. Please follow the directions below to access the portal: 1.Access the email account you provided upon registration to the hospital.2.Look for an invitation email from [facility].3.Open the email and access the invitation link: Accept Invitation to [email or web address].Fill in the required baugh to create your account. Sign into [email or web address] with your username and password that you created in the above steps to stay up to date. You can then view a summary of results, a summary of your visits, and the ability to download your summaries to your computer or send the information securely to a physician. Remember that your healthcare information is confidential, so carefully consider who you will allow to register on the [email or web address] Patient Portal for access to your information. You can also access the [email or web address] Patient Portal on the [employer] priscila. Simply click on Health Records under .[employer] and then click on the [employer] logo. HOW TO SAFELY DISPOSE OF PRESCRIPTION MEDICATIONS Please use one of the following methods to safely dispose of your unused medications. 1.Use a drug disposal kit: the drug disposal pouch allows you to safely discard your old and unuseddrugs. Ask your nurse to give you one when you are discharged.2.Visit a local take-back location: Many local pharmacies and police departments have programs that collect old and unwanted prescriptiondrugs. Call your local pharmacy or go to http://MMIS.[employer]/6G6Fr0u to find one close to you.3.Make use of household items: Use cat litter or old coffee grounds to dispose medications if other options arenot available. Mix your drugs with these household products, seal them in an airtight container andthrow it into the garbage. Call [facility]: [phone] to be sure your drugs can be disposed of in this way. Some medicines may require a different approach.4.Never flush your medications down the toilet. IF YOU HAVE BEEN PRESCRIBED AN OPIOIDS FOR PAIN If you have been prescribed an opioid (such as hydrocodone, oxycodone or morphine), it is critical to understand the possible side effects and risks of opioid pain medications. Even when taken as directed, opioids can have several side effects including: Tolerance, meaning you might need to take more of a medication for the same pain relief. Nausea, vomiting and/or constipation. Sleepiness, dizziness, dry mouth, confusion, depression or itching. Physical dependence, meaning you have withdrawal symptoms when a medication is stopped ? this can develop within a few days. KNOW YOUR RESPONSIBILITIES It is important to know exactly how much and how often to take the opioid pain medications you are prescribed. Never take opioids in higher amounts or more often than prescribed. Do not combine opioids with alcohol or other drugs that cause drowsiness, such as benzodiazepines, also known as benzos,including diazepam and alprazolam, muscle relaxants or sleep aids. Never sell or share prescriptionopioids. This is illegal. Store opioids in a secure place and out of reach of others (including children, family, friends and visitors). The last page(s) of this document has been signed and retained as a CHART COPY Signatures Patient Education Materials Palpitations Medication Leaflets My discharge plan and instructions have been reviewed and explained to me and I,BARRETT LOPEZ understand my current condition and have read and understand these discharge instructions. I have received a written copy of the plan/instructions. If I have questions, I am aware that I should contact my doctor. Patient/Hr Director Signature: Date/Time: Relationship to Patient: Witness Name/Signature: Date/Time: [facility]02-02-2023 Hospital Discharge instructions Patient Education 04/25/2022 18:36:54 Understanding Rectal Bleeding Understanding Rectal Bleeding Rectal bleeding is when blood passes through your rectum and anus. It can happen with or without a bowel movement. Rectal bleeding may be a sign of a serious problem in your rectum, colon, or upper GI tract. Call your healthcare provider right away if you have any rectal bleeding. The GI Tract The gastrointestinal (GI) tract includes the mouth, esophagus, stomach, small intestine, large intestine (colon), rectum, and anus. The food you eat is digested as it passes through the GI tract. Solid waste leaves the body through the rectum. Rectal bleeding and GI problems The cause of rectal bleeding may be found in any region of the GI tract. The colon or rectum may bethe site of your bleeding problem. Or, bleeding may be due to problems farther up the GI tract, such as in the small intestine, duodenum, or stomach. Causes of rectal bleeding Rectal bleeding causes include the following: Hemorrhoids (swollen veins in the rectum and anus) Fissures (tears in or near the anus) Diverticulosis (inflamed pockets in the colon wall) Infection Ischemia (low blood flow) Radiation damage Inflammatory bowel disease (Crohn's disease or ulcerative colitis) Ulcers in the upper GI tract and inflammation of the large intestine Abnormal tissue growths (tumors or polyps) in the GI tract A bulging rectum (also called a rectal prolapse) Abnormal blood vessels in the small intestine or in the colon Common symptoms Common symptoms include the following: Rectal pain, itching, or soreness Belly pain or epigastric pain Minor occasional drops of blood that appear on the stool or toilet paper, to greater amounts of stool that appear black or tarry Rectal bleeding can also happen without pain. [id number] [employer]. [address] [place] [address], [place] [address]. All rights reserved. This information is not intended as a substitute for professional medical care. Always follow yourhealthcare professional's instructions. Follow Up Care 04/25/2022 16:35:47 With:JUS MARTIN DO Address: [address] [place] [phone] When:2-4 days [facility] 02-02-2023 Emergency department Discharge summary Discharge Instructions Thank you for allowing [facility] to assist you with your healthcare needs. The following is importantdischarge information regarding your hospital visit. Diagnosis from Today's Visit Lower GI bleeding Blood in stool What to Do Next Instructions from Your Care Team No qualifying data available. Post Acute Orders No qualifying data available. You Need to Schedule the Following Appointments Follow Up with JUS MARTIN DO When Within 2-4 days Where: [address] [place] [phone] Allergies codeine (Swelling of throat, Hives) Latex Vicodin (Hives) Medications Please ask your primary doctor or pharmacist before taking any other medication not listed, including over the counter drugs, herbal medications, vitamins and or supplements as they may interact withyour home medications. What How Much When Why Instructions Last Dose New ciprofloxacin (Cipro 500 mg oral tablet) 1 tab(s) by mouth Every 12 hours Lower GI bleeding Duration: 5 Days Printed Prescription New hydrocortisone topical (Anusol-HC 25 mg rectal suppository) 1 suppository(ies) in the rectum Two (2) times a day Lower GI bleeding Duration: 7 Days Printed Prescription New metroNIDAZOLE (metroNIDAZOLE 500 mg oral tablet) 1 tab(s) by mouth Every 8 hours Lower GI bleeding Duration: 5 Days Printed Prescription Unchanged aspirin (aspirin 81 mg oral tablet, chewable) 1 tab(s) by mouth Once a day with a meal Duration: 30 Days Please take this list to your next doctor s visit. Bring all medications you take, including over the counter medications, herbals and other supplements with you to your doctor s visit. Patients and families are reminded to discard old lists and to update any records with all medication providers or retail pharmacies. Education Materials Understanding Rectal Bleeding Rectal bleeding is when blood passes through your rectum and anus. It can happen with or without a bowel movement. Rectal bleeding may be a sign of a serious problem in your rectum, colon, or upper GI tract. Call your healthcare provider right away if you have any rectal bleeding. The GI Tract The gastrointestinal (GI) tract includes the mouth, esophagus, stomach, small intestine, large intestine (colon), rectum, and anus. The food you eat is digested as it passes through the GI tract. Solid waste leaves the body through the rectum. Rectal bleeding and GI problems The cause of rectal bleeding may be found in any region of the GI tract. The colon or rectum may bethe site of your bleeding problem. Or, bleeding may be due to problems farther up the GI tract, such as in the small intestine, duodenum, or stomach. Causes of rectal bleeding Rectal bleeding causes include the following: Hemorrhoids (swollen veins in the rectum and anus) Fissures (tears in or near the anus) Diverticulosis (inflamed pockets in the colon wall) Infection Ischemia (low blood flow) Radiation damage Inflammatory bowel disease (Crohn's disease or ulcerative colitis) Ulcers in the upper GI tract and inflammation of the large intestine Abnormal tissue growths (tumors or polyps) in the GI tract A bulging rectum (also called a rectal prolapse) Abnormal blood vessels in the small intestine or in the colon Common symptoms Common symptoms include the following: Rectal pain, itching, or soreness Belly pain or epigastric pain Minor occasional drops of blood that appear on the stool or toilet paper, to greater amounts of stool that appear black or tarry Rectal bleeding can also happen without pain. [id number] [employer]. [address] [place] [address], [place] [address]. All rights reserved. This information is not intended as a substitute for professional medical care. Always follow yourhealthcare professional's instructions. Additional Information VACCINATE! IT SAVES LIVES! Members of the community who have not yet received the COVID-19 vaccine and would like to receive it can visit one of [facility] vaccine clinics. There are many vaccine clinic locations within the [facility]. For locations and available times, please visit [email or web address]. It is important to note that some COVID mobile vaccine clinics are held outdoors and may be canceled in rainy orstormy conditions. To learn more about pediatric vaccinations (ages 5-11), we invite you to visit the [facility] webpage. https://www.[email or web address]/pages/[email or web address]-Qyinz-Siytawaotkv-Szcjyybcfg-Xxhat-Num stions.htmlTo learn more about the COVID-19 vaccine, we invite you to visit the [facility] website for a list of frequently asked questions. [email or web address] _[email or web address].pdf [facility] [employer] Patient Portal Access Instructions: Stay connected with your healthcare team and access your personal medical information anytime with the [email or web address] Patient Portal. If you would like a full copy of your medical records please contact the [facility] Medical Records Department Friday through Friday between 8a.m. and 4:30p.m. Please follow the directions below to access the portal: 1.Access the email account you provided upon registration to the hospital.2.Look for an invitation email from [facility].3.Open the email and access the invitation link: Accept Invitation to [email or web address].Fill in the required baugh to create your account. Sign into [email or web address] with your username and password that you created in the above steps to stay up to date. You can then view a summary of results, a summary of your visits, and the ability to download your summaries to your computer or send the information securely to a physician. Remember that your healthcare information is confidential, so carefully consider who you will allow to register on the [email or web address] Patient Portal for access to your information. You can also access the [email or web address] Patient Portal on the [employer] priscila. Simply click on Health Records under [facility] and then click on the [employer] logo. HOW TO SAFELY DISPOSE OF PRESCRIPTION MEDICATIONS Please use one of the following methods to safely dispose of your unused medications. 1.Use a drug disposal kit: the drug disposal pouch allows you to safely discard your old and unuseddrugs. Ask your nurse to give you one when you are discharged.2.Visit a local take-back location: Many local pharmacies and police departments have programs that collect old and unwanted prescriptiondrugs. Call your local pharmacy or go to http://MMIS.[employer]/4I3Pg9c to find one close to you.3.Make use of household items: Use cat litter or old coffee grounds to dispose medications if other options arenot available. Mix your drugs with these household products, seal them in an airtight container andthrow it into the garbage. Call [facility]: [phone] to be sure your drugs can be disposed of in this way. Some medicines may require a different approach.4.Never flush your medications down the toilet. IF YOU HAVE BEEN PRESCRIBED AN OPIOIDS FOR PAIN If you have been prescribed an opioid (such as hydrocodone, oxycodone or morphine), it is critical to understand the possible side effects and risks of opioid pain medications. Even when taken as directed, opioids can have several side effects including: Tolerance, meaning you might need to take more of a medication for the same pain relief. Nausea, vomiting and/or constipation. Sleepiness, dizziness, dry mouth, confusion, depression or itching. Physical dependence, meaning you have withdrawal symptoms when a medication is stopped ? this can develop within a few days. KNOW YOUR RESPONSIBILITIES It is important to know exactly how much and how often to take the opioid pain medications you are prescribed. Never take opioids in higher amounts or more often than prescribed. Do not combine opioids with alcohol or other drugs that cause drowsiness, such as benzodiazepines, also known as benzos,including diazepam and alprazolam, muscle relaxants or sleep aids. Never sell or share prescriptionopioids. This is illegal. Store opioids in a secure place and out of reach of others (including children, family, friends and visitors). The last page(s) of this document has been signed and retained as a CHART COPY Signatures Patient Education Materials Understanding Rectal Bleeding Medication Leaflets My discharge plan and instructions have been reviewed and explained to me and I,BARRETT LOPEZ understand my current condition and have read and understand these discharge instructions. I have received a written copy of the plan/instructions. If I have questions, I am aware that I should contact my doctor. Patient/Hr Director Signature: Date/Time: Relationship to Patient: Witness Name/Signature: Date/Time: [facility]02-02-2023 Note ORIGINAL EXAMINATION: CT OF THE ABDOMEN AND PELVIS WITHOUT CONTRAST 04/25/2022 5:50 pm TECHNIQUE: CT of the abdomen and pelvis was performed without the administration of intravenous contrast. Multiplanar reformatted images are provided for review. Automated exposure control, iterative reconstruction, and/or weight based adjustment of the mA/kV was utilized to reduce the radiation dose to as low as reasonably achievable. COMPARISON: CT abdomen/pelvis 12/29/2021 HISTORY: ORDERING SYSTEM PROVIDED HISTORY: Abdominal pain, bloody stool, prior: Cancer removed during colonoscopy 2021 Reason for Exam: pain FINDINGS: Lower Chest: Right middle lobe, left upper lobe, and left lower lobe scarring. No pleural effusion. Organs: Unremarkable liver, spleen, adrenal glands, and pancreas. Surgically absent gallbladder. The kidneys are symmetric in size. No suspicious mass, calculus, or hydronephrosis. GI/Bowel: The stomach and duodenum are grossly normal. Under distension artifacts in the duodenum. The small bowel is normal in course and caliber. Bowel anastomosis site within the pelvis. Colonic diverticulosis without diverticulitis. Bowel wall fat halo sign with submucosal fat deposition within the terminal ileum, cecum, ascending colon, and proximal transverse colon can be simply under distension or related to remote infection/inflammation. The appendix is not seen, however there are no pericecal inflammatory changes. Pelvis: Suboptimally distended bladder. Unremarkable prostate. Peritoneum/Retroperitoneum: No free air or fluid. Mild mesenteric haziness without mesenteric adenopathy similar to the prior exam likely representing the sequela of remote infection/inflammation or mesenteric panniculitis. Stability is reassuring. Unremarkable abdominal aorta. Bones/Soft Tissues: Bilateral fat containing inguinal hernias. Large fat containing umbilical hernia. No acute soft tissue or osseous abnormality. Mild degenerative changes within the spine. IMPRESSION: No acute process within the abdomen or pelvis. Incidental findings as described above. Unless otherwise specified, incidental findings do not require dedicated imaging and follow-up. I have personally reviewed the images of this examination and agree with the resident's findings and interpretations. Interpreted by: Raghavendra Reyna MD Preliminary Report By: Yessenia Winston Electronically signed By Raghavendra Reyna MD Dictated Date: 04/25/2022 6:06:47 PM Prelim Date: 04/25/2022 6:15:20 PM Sign Date: 04/25/2022 6:25:26 PM Ordering Provider: [facility]02-02-2023 Note ORIGINAL EXAMINATION: CT OF THE ABDOMEN AND PELVIS WITHOUT CONTRAST 04/25/2022 5:50 pm TECHNIQUE: CT of the abdomen and pelvis was performed without the administration of intravenous contrast. Multiplanar reformatted images are provided for review. Automated exposure control, iterative reconstruction, and/or weight based adjustment of the mA/kV was utilized to reduce the radiation dose to as low as reasonably achievable. COMPARISON: CT abdomen/pelvis 12/29/2021 HISTORY: ORDERING SYSTEM PROVIDED HISTORY: Abdominal pain, bloody stool, prior: Cancer removed during colonoscopy 2021 Reason for Exam: pain FINDINGS: Lower Chest: Right middle lobe, left upper lobe, and left lower lobe scarring. No pleural effusion. Organs: Unremarkable liver, spleen, adrenal glands, and pancreas. Surgically absent gallbladder. The kidneys are symmetric in size. No suspicious mass, calculus, or hydronephrosis. GI/Bowel: The stomach and duodenum are grossly normal. Under distension artifacts in the duodenum. The small bowel is normal in course and caliber. Bowel anastomosis site within the pelvis. Colonic diverticulosis without diverticulitis. Bowel wall fat halo sign with submucosal fat deposition within the terminal ileum, cecum, ascending colon, and proximal transverse colon can be simply under distension or related to remote infection/inflammation. The appendix is not seen, however there are no pericecal inflammatory changes. Pelvis: Suboptimally distended bladder. Unremarkable prostate. Peritoneum/Retroperitoneum: No free air or fluid. Mild mesenteric haziness without mesenteric adenopathy similar to the prior exam likely representing the sequela of remote infection/inflammation or mesenteric panniculitis. Stability is reassuring. Unremarkable abdominal aorta. Bones/Soft Tissues: Bilateral fat containing inguinal hernias. Large fat containing umbilical hernia. No acute soft tissue or osseous abnormality. Mild degenerative changes within the spine. IMPRESSION: No acute process within the abdomen or pelvis. Incidental findings as described above. Unless otherwise specified, incidental findings do not require dedicated imaging and follow-up. I have personally reviewed the images of this examination and agree with the resident's findings and interpretations. Interpreted by: Raghavendra Reyna MD Preliminary Report By: Yessenia Winston Electronically signed By Raghavendra Reyna MD Dictated Date: 04/25/2022 6:06:47 PM Prelim Date: 04/25/2022 6:15:20 PM Sign Date: 04/25/2022 6:25:26 PM Ordering Provider: [facility]02-02-2023 Miscellaneous Notes* Telephone Encounter - Deepti Pierre LPN - 04/25/2022 3:50 PM EST Patient called stating he went to the bathroom to have a bowel movement. When he went to wipe he had blood with clots on the toilet paper. Patient stated he wiped 3x and he continued to bleed. Patient stated that blood was on the toilet seat as well. Patient stated that he felt weak, tired, dizzy. Recommended that patient goes to Emergency room to be evaluated. Patient proceeded to tell me the last time he went to the ER they called him a drug addict, this is why he called our office instead. Patient wanted to know if Nathaly was available, let patient know we do not have any providers in office today. Our best recommendation would be to go to ER to be evaluated. Patient verbalized understanding. [facility] Discharge Instructions Thank you for allowing [facility] to assist you with your healthcare needs. The following is importantdischarge information regarding your hospital visit. Your Care Team PHYSICIAN, NONE Your Diagnosis Chest pain Hypertension TIA (transient ischemic attack) Rheumatoid arthritis Myocardial infarct What to do next Instructions From Your Doctor You were admitted with left-sided chest pain and numbness in left arm. We checked serial troponins x 3 and those were all negative. As discussed yesterday, the troponin is an enzyme your heart will give off if under stress or injury. While the negative troponins is a reassuring sign, it does not mean that there are no problems with your heart. However, you were sent for a stress test today and the results showed no evidence of ischemia and no evidence for prior heart attack. Your labs were all unremarkable. We monitored you on telemetry overnight and there were no abnormalities noted. You need to get established with a primary care provider and follow-up with them especially if this pain continues. The pain is likely musculoskeletal. You can take Tylenol and ibuprofen at home to manage this pain until it subsides. Again, please follow-up with your primary care provider for any further testing. Follow Up Appointments Follow Up with [facility] When Within 5 to 7 days Why: THEY ARE ACCEPTING NEW PATIENT. YOU NEED TO GO IN TO FILL OUT PAPERWORK AND THEY WILL SCHEDULEAN APPOINTMENT WITH YOU. Where: [address] [place] [address]- The Following Activity and Diet Have Been Ordered for You Discharge Activity - Ordered -- Resume your pre-hospitalization activity, 04/09/22 11:28:00 EST Discharge Diet - Ordered -- No changes were made to your diet during your hospital stay. Please resume your pre hospitalization diet on discharge., 04/09/22 11:28:00 EST The Following Equipment Has Been Ordered for You No qualifying data available. The Following Treatments Have Been Ordered for You Discharge Labs No qualifying data available. Discharge Radiology No qualifying data available. Other Therapies No qualifying data available. Post Acute Orders No qualifying data available. Someone Will Contact You Regarding These Home Health Referrals No home referrals have been ordered for you. No one will call you. Allergies codeine (Swelling of throat, Hives) Latex Vicodin (Hives) Medications Please ask your primary doctor or pharmacist before taking any other medication not listed, including over the counter drugs, herbal medications, vitamins and or supplements as they may interact withyour home medications. What How Much When Instructions Last Dose Unchanged aspirin (aspirin 81 mg oral tablet, chewable) 1 tab(s) by mouth Once a day with a meal Duration: 30 Days Please take this list to your next doctor s visit. Bring all medications you take, including over the counter medications, herbals and other supplements with you to your doctor s visit. Patients and families are reminded to discard old lists and to update any records with all medication providers or retail pharmacies. Education Materials Nonspecific Chest Pain, Adult Chest pain can be caused by many different conditions. It can be caused by a condition that is life-threatening and requires treatment right away. It can also be caused by something that is not life-threatening. If you have chest pain, it can be hard to know the difference, so it is important to get help right away to make sure that you do not have a serious condition. Some life-threatening causes of chest pain include: Heart attack. A tear in the body's main blood vessel (aortic dissection). Inflammation around your heart (pericarditis). A problem in the lungs, such as a blood clot (pulmonary embolism) or a collapsed lung (pneumothorax). Some non life-threatening causes of chest pain include: Heartburn. Anxiety or stress. Damage to the bones, muscles, and cartilage that make up your chest wall. Pneumonia or bronchitis. Shingles infection (varicella-zoster virus). Chest pain can feel like: Pain or discomfort on the surface of your chest or deep in your chest. Crushing, pressure, aching, or squeezing pain. Burning or tingling. Dull or sharp pain that is worse when you move, cough, or take a deep breath. Pain or discomfort that is also felt in your back, neck, jaw, shoulder, or arm, or pain that spreads to any of these areas. Your chest pain may come and go. It may also be constant. Your health care provider will do lab tests and other studies to find the cause of your pain. Treatment will depend on the cause of your chest pain. Follow these instructions at home: Medicines Take qqtt-jwi-wzqktyi and prescription medicines only as told by your health care provider. If you were prescribed an antibiotic, take it as told by your health care provider. Do not stop taking the antibiotic even if you start to feel better. Lifestyle Rest as directed by your health care provider. Do not use any products that contain nicotine or tobacco, such as cigarettes and e-cigarettes. If you need help quitting, ask your health care provider. Do not drink alcohol. Make healthy lifestyle choices as recommended. These may include: ? Getting regular exercise. Ask your health care provider to suggest some activities that are safe for you. ? Eating a heart-healthy diet. This includes plenty of fresh fruits and vegetables, whole grains, low-fat (lean) protein, and low-fat dairy products. A dietitian can help you find healthy eating options. ? Maintaining a healthy weight. ? Managing any other health conditions you have, such as high blood pressure (hypertension) or diabetes. ? Reducing stress, such as with yoga or relaxation techniques. General instructions Pay attention to any changes in your symptoms. Tell your health care provider about them or any newsymptoms. Avoid any activities that cause chest pain. Keep all follow-up visits as told by your health care provider. This is important. This includes visits for any further testing if your chest pain does not go away. Contact a health care provider if: Your chest pain does not go away. You feel depressed. You have a fever. Get help right away if: Your chest pain gets worse. You have a cough that gets worse, or you cough up blood. You have severe pain in your abdomen. You faint. You have sudden, unexplained chest discomfort. You have sudden, unexplained discomfort in your arms, back, neck, or jaw. You have shortness of breath at any time. You suddenly start to sweat, or your skin gets clammy. You feel nausea or you vomit. You suddenly feel lightheaded or dizzy. You have severe weakness, or unexplained weakness or fatigue. Your heart begins to beat quickly, or it feels like it is skipping beats. These symptoms may represent a serious problem that is an emergency. Do not wait to see if the symptoms will go away. Get medical help right away. Call your local emergency services (911 in the [place] Do not drive yourself to the hospital. Summary Chest pain can be caused by a condition that is serious and requires urgent treatment. It may also be caused by something that is not life-threatening. If you have chest pain, it is very important to see your health care provider. Your health care provider may do lab tests and other studies to find the cause of your pain. Follow your health care provider's instructions on taking medicines, making lifestyle changes, and getting emergency treatment if symptoms become worse. Keep all follow-up visits as told by your health care provider. This includes visits for any further testing if your chest pain does not go away. This information is not intended to replace advice given to you by your health care provider. Make sure you discuss any questions you have with your health care provider. Document Released: 12/18/2005 Document Revised: 09/10/2018 Document Reviewed: 09/10/2018 Elsevier Patient Education 2020 [employer] Additional Information VACCINATE! IT SAVES LIVES! Members of the community who have not yet received the COVID-19 vaccine and would like to receive it can visit one of [facility] vaccine clinics. There are many vaccine clinic locations within the [facility]. For locations and available times, please visit [email or web address]/. It is important to note that some COVID mobile vaccine clinics are held outdoors and may be canceled in rainy or stormy conditions. To learn more about pediatric vaccinations (ages 5-11), we invite you to visit the [employer] [facility] webpage. [email or web address] [email or web address] learn more about the COVID-19 vaccine, we invite you to visit the [employer] website for a list of frequently asked questions. [email or web address] Patient Portal Access Instructions: Stay connected with your healthcare team and access your personal medical information anytime with the [email or web address] Patient Portal.If you would like a full copy of your medical records, please contact the [facility] Medical Records Department, Friday through Friday between 8a.m. and 4:30p.m. Please follow the directions below to access the portal: 1.Access the email account you provided upon registration to the hospital.2.Look for an invitation email from [facility].3.Open the email and access the invitation link: Accept Invitation to [facility]4.Fill in the required baugh to create your account. Sign into [email or web address] with your username and password that you created in the above steps to stay up to date. You can then view a summary of results, a summary of your visits, and the ability to download your summaries to your computer or send the information securely to a physician. Remember that your healthcare information is confidential, so carefully consider who you will allow to register on the [facility] Patient Portal for access to your information. You can also access the [facility] Patient Portal on the [employer] priscila. Simply click on Health Records under [facility] and then click on the [employer] logo. HOW TO SAFELY DISPOSE OF PRESCRIPTION MEDICATIONS Please use one of the following methods to safely dispose of your unused medications. 1.Use a drug disposal kit: the drug disposal pouch allows you to safely discard your old and unuseddrugs. Ask your nurse to give you one when you are discharged.2.Visit a local take-back location: Many local pharmacies and police departments have programs that collect old and unwanted prescriptiondrugs. Call your local pharmacy or go to http://MMIS.[employer]/8Y3Ny9f to find one close to you.3.Make use of household items: Use cat litter or old coffee grounds to dispose medications if other options arenot available. Mix your drugs with these household products, seal them in an airtight container andthrow it into the garbage. Call [facility]: [phone] to be sure your drugs can be disposed of in this way. Some medicines may require a different approach.4.Never flush your medications down the toilet. IF YOU HAVE BEEN PRESCRIBED AN OPIOID FOR PAIN If you have been prescribed an opioid (such as hydrocodone, oxycodone or morphine), it is critical to understand the possible side effects and risks of opioid pain medications. Even when taken as directed, opioids can have several side effects including: Tolerance, meaning you might need to take more of a medication for the same pain relief. Nausea, vomiting and/or constipation. Sleepiness, dizziness, dry mouth, confusion, depression or itching. Physical dependence, meaning you have withdrawal symptoms when a medication is stopped, can develop within a few days. KNOW YOUR RESPONSIBILITIES It is important to know exactly how much and how often to take the opioid pain medications you are prescribed. Never take opioids in higher amounts or more often than prescribed. Do not combine opioids with alcohol or other drugs that cause drowsiness, such as benzodiazepines, also known as benzos, including diazepam and alprazolam, muscle relaxants or sleep aids. Never sell or share prescription opioids. This is illegal. Store opioids in a secure place and out of reach of others (including children, family, friends and visitors). The last page of this document has been signed and retained as a CHART COPY. Signatures Patient Education Materials Nonspecific Chest Pain, Adult Medication Leaflets My discharge plan and instructions have been reviewed and explained to me and I,JOHN BARRETT Coleman understand my current condition and have read and understand these discharge instructions. I have received a written copy of the plan/instructions. If I have questions, I am aware that I should contact my doctor. Patient/Hr Director Signature: Date/Time: Relationship to Patient: Witness Name/Signature: Date/Time: [facility]01-17-2023 Note ORIGINAL NM MYOCARDIAL SPECT STRESS/REST CLINICAL STATEMENT: cp TECHNIQUE: Lexiscan dose:0.4 mg Radiopharmaceutical (stress): Tc-99m Sestamibi Dose:30.4 mCi Radiopharmaceutical (rest): Tc-99m Sestamibi Dose:10.8 mCi SPECT acquisition and processing Reconstruction and reorientation of SPECT images into short axis, vertical and horizontal long axisplanes Quantitative LVEF assessment COMPARISON:None REPORT:The LEFT ventricle is normal in size. On the gated images the ejection fraction is normal at60% with normal wall motion. The stress images there is a decrease in the uptake of activity in theinferior wall extending to the apex. No significant improvement in the uptake of activity in this area on rest images. There otherwise is relatively homogenous uptake of activity in other areas of the myocardium. IMPRESSION: 1. No evidence of significant inducible ischemia or prior myocardial infarction. 2. Diaphragmatic attenuation artifact noted. 3. Normal ejection fraction of 60% with normal wall motion. Interpreted By: Scott Servin MD Preliminary Report By: Scott Servin MD Electronically Signed By: Scott Servin MD Dictated Date: 04/09/2022 10:40:56 AM Prelim Date: 04/09/2022 10:40:56 AM Sign Date: 04/09/2022 10:46:48 AM Ordering Provider:[facility] [id number] Hospital Discharge instructions Patient Education 04/09/2022 08:43:20 Nonspecific Chest Pain, Adult Nonspecific Chest Pain, Adult Chest pain can be caused by many different conditions. It can be caused by a condition that is life-threatening and requires treatment right away. It can also be caused by something that is not life-threatening. If you have chest pain, it can be hard to know the difference, so it is important to get help right away to make sure that you do not have a serious condition. Some life-threatening causes of chest pain include: Heart attack. A tear in the body's main blood vessel (aortic dissection). Inflammation around your heart (pericarditis). A problem in the lungs, such as a blood clot (pulmonary embolism) or a collapsed lung (pneumothorax). Some non life-threatening causes of chest pain include: Heartburn. Anxiety or stress. Damage to the bones, muscles, and cartilage that make up your chest wall. Pneumonia or bronchitis. Shingles infection (varicella-zoster virus). Chest pain can feel like: Pain or discomfort on the surface of your chest or deep in your chest. Crushing, pressure, aching, or squeezing pain. Burning or tingling. Dull or sharp pain that is worse when you move, cough, or take a deep breath. Pain or discomfort that is also felt in your back, neck, jaw, shoulder, or arm, or pain that spreads to any of these areas. Your chest pain may come and go. It may also be constant. Your health care provider will do lab tests and other studies to find the cause of your pain. Treatment will depend on the cause of your chest pain. Follow these instructions at home: Medicines Take adrc-xnx-iiktbdd and prescription medicines only as told by your health care provider. If you were prescribed an antibiotic, take it as told by your health care provider. Do not stop taking the antibiotic even if you start to feel better. Lifestyle Rest as directed by your health care provider. Do not use any products that contain nicotine or tobacco, such as cigarettes and e-cigarettes. If you need help quitting, ask your health care provider. Do not drink alcohol. Make healthy lifestyle choices as recommended. These may include: ?Getting regular exercise. Ask your health care provider to suggest some activities that are safe for you. ?Eating a heart-healthy diet. This includes plenty of fresh fruits and vegetables, whole grains, low-fat (lean) protein, and low-fat dairy products. A dietitian can help you find healthy eating options. ?Maintaining a healthy weight. ?Managing any other health conditions you have, such as high blood pressure (hypertension) or diabetes. ?Reducing stress, such as with yoga or relaxation techniques. General instructions Pay attention to any changes in your symptoms. Tell your health care provider about them or any newsymptoms. Avoid any activities that cause chest pain. Keep all follow-up visits as told by your health care provider. This is important. This includes visits for any further testing if your chest pain does not go away. Contact a health care provider if: Your chest pain does not go away. You feel depressed. You have a fever. Get help right away if: Your chest pain gets worse. You have a cough that gets worse, or you cough up blood. You have severe pain in your abdomen. You faint. You have sudden, unexplained chest discomfort. You have sudden, unexplained discomfort in your arms, back, neck, or jaw. You have shortness of breath at any time. You suddenly start to sweat, or your skin gets clammy. You feel nausea or you vomit. You suddenly feel lightheaded or dizzy. You have severe weakness, or unexplained weakness or fatigue. Your heart begins to beat quickly, or it feels like it is skipping beats. These symptoms may represent a serious problem that is an emergency. Do not wait to see if the symptoms will go away. Get medical help right away. Call your local emergency services (911 in the [place] Do not drive yourself to the hospital. Summary Chest pain can be caused by a condition that is serious and requires urgent treatment. It may also be caused by something that is not life-threatening. If you have chest pain, it is very important to see your health care provider. Your health care provider may do lab tests and other studies to find the cause of your pain. Follow your health care provider's instructions on taking medicines, making lifestyle changes, and getting emergency treatment if symptoms become worse. Keep all follow-up visits as told by your health care provider. This includes visits for any further testing if your chest pain does not go away. This information is not intended to replace advice given to you by your health care provider. Make sure you discuss any questions you have with your health care provider. Document Released: 12/18/2005 Document Revised: 09/10/2018 Document Reviewed: 09/10/2018 640 Labs Patient Education 2020 [employer]. Follow Up Care 04/08/2022 09:44:30 With:dany lamb Address: [address] [place], [place] [id number]- When:5 to 7 days Comments:THEY ARE ACCEPTING NEW PATIENT. YOU NEED TO GO IN TO FILL OUT PAPERWORK AND THEY WILL SCHEDULE AN APPOINTMENT WITH YOU. [facility] 01-17-2023 Note ORIGINAL NM MYOCARDIAL SPECT STRESS/REST CLINICAL STATEMENT: cp TECHNIQUE: Lexiscan dose:0.4 mg Radiopharmaceutical (stress): Tc-99m Sestamibi Dose:30.4 mCi Radiopharmaceutical (rest): Tc-99m Sestamibi Dose:10.8 mCi SPECT acquisition and processing Reconstruction and reorientation of SPECT images into short axis, vertical and horizontal long axisplanes Quantitative LVEF assessment COMPARISON:None REPORT:The LEFT ventricle is normal in size. On the gated images the ejection fraction is normal at60% with normal wall motion. The stress images there is a decrease in the uptake of activity in theinferior wall extending to the apex. No significant improvement in the uptake of activity in this area on rest images. There otherwise is relatively homogenous uptake of activity in other areas of the myocardium. IMPRESSION: 1. No evidence of significant inducible ischemia or prior myocardial infarction. 2. Diaphragmatic attenuation artifact noted. 3. Normal ejection fraction of 60% with normal wall motion. Interpreted By: Scott Servin MD Preliminary Report By: Scott Servin MD Electronically Signed By: Scott Servin MD Dictated Date: 04/09/2022 10:40:56 AM Prelim Date: 04/09/2022 10:40:56 AM Sign Date: 04/09/2022 10:46:48 AM Ordering Provider:Estrada [facility]01-17-2023 Note Reason for Consultation Lying in bed, just returned from resting portion of stress test. States that chest pain remains constant 6/10 all night. Heaviness is excruciating and left arm is numb. Denies shortness of breath, jaw pain, right arm pain or pain between shoulder blades. No diaphoresis, nausea or shortness of breath. Denies diaphoresis. Has not slept much through the night. History of Present Illness Now nearly two days of constant chest pain. Initially came on without activity. Diaphoresis, nausea, chest heaviness and pain that felt like he was struck in the chest. Left arm numb and tingling. Noother radiation of pain. Since onset of pain, he did not sleep but was nodding off. Presented to emergency room. Review of Systems GEN: no fever or chills, appears comfortable HEENT: denies headache from nitroglycerin CV: chest heaviness 6/10, also feels sharp, left arm numb and tingling PULM: denies SOB, cough or wheeze GI: bowels moved last even, no nausea : no burning with urination, voiding in small amounts per pt. MUSCULO: no pain or weakness in legs or right arm, moving without difficulty INTEG: warm and dry MENTAL: recalling events of , states he spoke with his [facility] rep last night Physical Exam Vitals and Measurements T: 36.2 C (Oral) TMIN: 36.2 C (Oral) TMAX: 36.7 C (Oral) HR: 67 RR: 18 BP: 140/74 SpO2: 94% HT: 170.2 cm WT: 124.5 kg BMI: 41.77 GEN: 46 yr old man who presents in no distress HEENT: head is normocephalic, trachea midline, no bruit CV: S1S2, no gallop, no lower ext. edema, left arm warm & no blanching PULM: CTA, chest rise & fall symmetrical ABD: soft, non-tender, + KASEY MUSCULO: moves all ext. 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 Chest pain Stress test pending. Troponins ruled out AR. Nitroglycerin not resolving chest pain. Atypical chest pain- persists for two days without bump in enzymes 2. Hypertension BP stable, DBP slightly elevated. Should follow low sodium diet and weight loss. 3. TIA (transient ischemic attack) remains on baby aspirin. Pt. is a full code. Problem List/Past Medical History Ongoing Abdominal pain Depression Diverticulitis History of stroke Hypertension Myocardial infarct Rheumatoid arthritis Historical Deviated septum Procedure/Surgical History History of tonsillectomy: 2004 Appendectomy: 2002 Tendon Cholecystectomy Allergies codeine (Swelling of throat, Hives) Latex Vicodin (Hives) Immunization History tetanus/diphth/pertuss (Tdap) adult/adol: 0.5 mL (03/23/19) Lab Results Hbg 13.1, Hct 139.1, TC 147, HDL 25, LDL 99, trig 114, BUN 15, creat 0.87, calcium 8.1, Mg 2.0, TSH 1.14 Medications What How Much When Instructions Last Dose Unchanged aspirin (aspirin 81 mg oral tablet, chewable) 1 tab(s) by mouth Once a day with a meal Duration: 30 Days Digitally Signed by Lali Leos Student on 04/09/2022 08:39 AM [facility]01-16-2023 History and physical note Reason for Consultation Chest pain that started last evening Referring Physician Emergency Physician History of Present Illness Last evening while visiting with some friends, patient states he developed sudden onset of chest pain that an 8/10, left arm tingling, some nausea, and diaphoresis. He states that the pain felt like someone hit him with a baseball bat and was heavy. He kept nodding off all night but then couldn't sleep because the pain was so intense. He presented to the emergency room and was brought in asobservation for chest pain. has since left the hospital. He was given NTG 0.4mg sl q5 min X 3.Pain decreased from 8/10 to 2/10. Pt. states the he would like something to eat. Review of Systems GEN: denies fever or chills, states sweaty HEENT: states he always has a headache, nasal septum is problematic for him ongoing even though he has had septoplasty CV: left sided chest heaviness and pain, denies palpitations, states feet swell PULM: denies SOB, sometimes coughs, no wheeze GI: no N/V when asked again, no GERD, diarrhea or constipation : urinates alot, no hematuria NEURO: states 2 previous strokes but according to notes, it appears to be TIAs, no deficits INTEG: no ruddiness, no diaphoresis currently ENDO: denies diabetes or thyroid trouble HEMO: denies clotting or bleeding trouble PSYCH: denies hopelessness or helplessness MSK: denies weakness, able to move all ext. w/o difficulty Physical Exam Vitals and Measurements T: 36.7 C (Oral) HR: 75(Monitored) RR: 16 BP: 111/73 SpO2: 97% HT: 170.2 cm WT: 121 kg BMI: 41.77 GEN: 46 yr old man who presents in no distress HEENT: trachea midline, no bruit CV: S1S2, no gallop, no lower ext. edema, rad. & DP pulses 2+ juani PULM: CTA, chest rise & fall symmetrical ABD: soft, non-tender, + KASEY MUSCULO: strength juani upper and lower 4/5, moves all ext. 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 Chest pain admit OBV for troponin series and stress test if they are normal X 3 continue low dose aspirin check lipids in morning consider CRP 2. Hypertension monitor blood pressure, well controlled at this time 3. TIA (transient ischemic attack) continue low dose aspirin 4. Rheumatoid arthritis likely osteoarthritis, no evidence 5. Myocardial infarct Q wave V1 that is not new, no other documentation and patient denies intervention for this in past Past Medical History anxiety depression CVA vs TIA x2 arthritis that patient feels is rheumatoid- hands, hips, back, knees HTN hyperlipidemia- was treated with atorvastatin but ran out left biceps tendon rupture- repaired back pain (entire back) diverticulosis Procedure/Surgical History History of tonsillectomy: 2004 Appendectomy: 2002 Left biceps tendon repair Cholecystectomy Septoplasty Allergies codeine (Swelling of throat, Hives) Latex Vicodin (Hives) Immunization History tetanus/diphth/pertuss (Tdap) adult/adol: 0.5 mL (03/23/19) Code Status: full code Lab Results 04/08/22: WBC 5.9, Hgb 13.9, HCT 41, plt 309 Abs neut decreased (new) NA 137, K+ 3.9, BUN 13, creat 0.76, glucose 99 trop 4.9 Medications What How Much When Instructions Last Dose aspirin (aspirin 81 mg oral tablet, chewable) 1 tab(s) by mouth Once a day with a meal Duration: 30 Days Digitally Signed by Lali Leos Student on 04/08/2022 02:30 PM [facility]01-16-2023 Evaluation + Plan noteExtracted from: Title:Observation Author:Lali Leos Stud ent Date:04/08/22 1. Chest pain admit OBV for troponin series and stress test if they are normal X 3 continue low dose aspirin check lipids in morning consider CRP 2. Hypertension monitor blood pressure, well controlled at this time 3. TIA (transient ischemic attack) continue low dose aspirin 4. Rheumatoid arthritis likely osteoarthritis, no evidence 5. Myocardial infarct Q wave V1 that is not new, no other documentation and patient denies intervention for this in past Past Medical History anxiety depression CVA vs TIA x2 arthritis that patient feels is rheumatoid- hands, hips, back, knees HTN hyperlipidemia- was treated with atorvastatin but ran out left biceps tendon rupture- repaired back pain (entire back) diverticulosis Extracted from: Title:History and Physical Author:ESTRADA BEGUM APRN-TELEVISION CABINET FINISHER Date:04/08/22 1. Chest pain Acute, new onset, accompanied by numbness in left arm, shortness of breath, nausea and diaphoresis. Pain is at times sharp in nature and feels like being hit with a baseball bat vs elephant sitting on chest. Reproducible with palpation at times. *Monitor on telemetry. *Continue nitroglycerin s/l as needed for chest pain. *Trend serial troponin every 6 hours x 2. *Send patient for lexiscan stress test in the am. *Check lipid profile, HgbA1c, and magnesium level. *Repeat CBC and BMP in the am. 2. Hypertension Chronic *Continue current home medications. *SBP goal of 140 or less. *Monitor vital signs per protocol. 3. TIA (transient ischemic attack) Chronic *Not currently taking statin. *Check lipid panel in am. *Continue aspirin 81 mg PO daily. 4. Rheumatoid arthritis Chronic, self-diagnosed *Not currently on medication for this. *community services manager working on finding PCP for patient. 5. Myocardial infarct Chronic *Patient reports that he had 2 MIs in the past but stated that no stress test or cardiac intervention was done. His doctor and he is unsure where his records ended up. DVT prophylaxis with Lovenox sc daily. Code status: Full Code. Labs, diagnostic test and progress notes reviewed as noted in HPI. Plan of care discussed with patient. All questions answered. Patient verbalizes understanding and is agreeable with plan of care. This case was discussed with collaborating physician, Dr. Kei Herman. [facility] 01-16-2023 Note Date of Service 04/08/2022 Chief Complaint sitting on his bed when left sided chest pain started admitted to sob, , nausea & becoming sweaty with it. pain at that time radiated down his left arm History of Present Illness Patient is a 46-year-old male, who has no primary care provider with a past medical history significant for AR, hypertension, TIA, and rheumatoid arthritis, presents to [facility] emergency department with the chief complaint of chest pain. Patient reports this chest pain started this morning and has been relatively constant since it started. It is in the left side of his chest butat times in the left lateral chest. He adds that it is sharp at times. He also reports numbness in his left arm but demonstrates that he is able to move the left arm without difficulty. He denies anyinjury to the left side of his chest and did nothing yesterday to strain the muscles in his left chest. He describes the pain as being hit with a baseball bat in the left side and at other times that it feels like an elephant is sitting on his chest. Patient reports that he had 2 myocardial infarctions in the past but denies every having a stress test, cardiac catheterization or intervention done. He states the doctor who told him he had the heart attacks is now and his records went with him. Patient denies fever, chills, cough, abdominal pain, diarrhea or dysuria. Reports someepisodes of shortness of breath, nausea and diaphoresis associated with the chest pain. In the emergency department, chest x-ray revealed no acute radiographic findings. EKG revealed sinus rhythm with questionable ST elevation. CBC remarkable for hemoglobin 13.9 and hematocrit 41.0. BMPwas unremarkable. Troponin negative x 1. Patient was administered 324 mg aspirin PO and 1 nitro s/sancho the ED. He reports that the one nitro took his pain from 10 down to an 8. Patient will be transferred to telemetry for observation. We will continue nitro c/l as needed for chest pain. We will repeat EKG for any recurrent chest pain. Check troponin every 6 hours x 2. Patient will be sent for stress test in the am. Check lipid profile, magnesium level and HgbA1c in am. Repeat CBC and BMP in theam. Review of Systems Review of Systems: Reviewed in detail, including general health, HEENT, cardiovascular, respiratory, gastrointestinal, genitourinary, endocrine, musculoskeletal, neurologic, vascular, skin, and psychiatric. All are negative except for those listed in the History of Present Illness. Physical Exam Vitals and Measurements T: 36.7 C (Oral) HR: 68(Monitored) RR: 14 BP: 118/77 SpO2: 97% No qualifying data available. General: No acute distress. Patient is alert and appropriate. Skin: No rash. Skin is warm, dry and intact. HEENT: Head is normocephalic, atraumatic. Pupils are equal, round and reactive. Neck: Supple. No lymphadenopathy, thyromegaly. Lungs: Bilaterally clear but diminished without crepitation or wheeze. Unlabored. Heart: Heart is regular rhythm, S1, S2. No murmurs, gallops or rubs. Abdomen: Abdomen is soft, nontender. Bowels sounds present in all quadrants. Extremities: No clubbing, cyanosis, or edema. Peripheral pulses palpable. No calf tenderness. Neurological: Patient is awake and alert to person, place and time. Following simple commands, moving all extremities. Lab Results 04/08 11:00 Glucose Level: 99 Sodium Level: 137 Potassium Level: 3.9 BUN: 13 Creatinine Lvl (s): 0.76 04/08 10:32 WBC: 5.9 Hgb: 13.9 L Hct: 41.0 L Platelet: 309 Neutrophil %: 48.2 Imaging Results and Diagnostics XR Chest 1 View Result Date: April 08, 2022 Verified By: VIC MACIEL DO CLINICAL STATEMENT: IMPRESSION: No acute radiographic findings. EKG EC04/08/22: Sinus rhythm...normal P axis, V-rate 50- 99 ST elev, probable normal early repol pattern...ST elevation, age<55 Similar to prior EKG. Electronic Signature: LAKHWINDER BERNAL MD 04/08/2022 10:15:30 Assessment/Plan 1. Chest pain Acute, new onset, accompanied by numbness in left arm, shortness of breath, nausea and diaphoresis.Pain is at times sharp in nature and feels like being hit with a baseball bat vs elephant sitting on chest. Reproducible with palpation at times. *Monitor on telemetry. *Continue nitroglycerin s/l as needed for chest pain. *Trend serial troponin every 6 hours x 2. *Send patient for lexiscan stress test in the am. *Check lipid profile, HgbA1c, and magnesium level. *Repeat CBC and BMP in the am. 2. Hypertension Chronic *Continue current home medications. *SBP goal of 140 or less. *Monitor vital signs per protocol. 3. TIA (transient ischemic attack) Chronic *Not currently taking statin. *Check lipid panel in am. *Continue aspirin 81 mg PO daily. 4. Rheumatoid arthritis Chronic, self-diagnosed *Not currently on medication for this. *community services manager working on finding PCP for patient. 5. Myocardial infarct Chronic *Patient reports that he had 2 MIs in the past but stated that no stress test or cardiac intervention was done. His doctor and he is unsure where his records ended up. DVT prophylaxis with Lovenox sc daily. Code status: Full Code. Labs, diagnostic test and progress notes reviewed as noted in HPI. Plan of care discussed with patient. All questions answered. Patient verbalizes understanding and is agreeable with plan of care. This case was discussed with collaborating physician, Dr. Kei Herman. Problem List/Past Medical History Ongoing Abdominal pain Depression Diverticulitis History of stroke Hypertension Myocardial infarct Rheumatoid arthritis Historical Deviated septum Procedure/Surgical History Nephrectomy: 09/21/17 Proctocolectomy: 04/24/17 History of tonsillectomy: 2004 Appendectomy: 2002 Tendon Cholecystectomy Medications Home Medications (3) Active aspirin 81 mg oral tablet, chewable 81 mg = 1 tab(s), Oral, qDayM atorvastatin 20 mg oral tablet 20 mg = 1 tab(s), Oral, Daily meloxicam 7.5 mg oral tablet 7.5 mg = 1 tab(s), Oral, qDay Allergies codeine (Swelling of throat, Hives) Latex Vicodin (Hives) Social History Smoking Status - 01/06/2018 Never smoker Alcohol - Denies Alcohol Use, 10/31/2016 Use: Never., 06/21/2018 Substance Abuse - Denies Substance Abuse, 10/31/2016 Use: Never., 06/21/2018 Tobacco - Denies Tobacco Use, 03/24/2018 Tobacco Use: Never (less than 100 in lifetime)., 06/21/2018 Family History Cancer: Mother. Diabetes mellitus: Mother, Sister and Brother. HTN - Hypertension: Mother. Heart disease: Mother. Mental illness: Mother. Immunizations tetanus/diphth/pertuss (Tdap) adult/adol: 0.5 mL (03/23/19) Code Status Code Status - Ordered -- 04/08/22 11:58:00 EST, Full Code, Constant Order Digitally Signed by ESTRADA BEGUM on 04/08/2022 01:50 PM [facility]01-16-2023 Note ORIGINAL EXAMINATION: ONE XRAY VIEW OF THE CHEST04/08/2022 10:42 am COMPARISON: March 19, 2022 HISTORY: ORDERING SYSTEM PROVIDED HISTORY: Reason for Exam: chest pain FINDINGS: Cardiac silhouette is normal. No pneumothorax or pleural effusion. No vascular congestion or interstitial opacity. There is slightly shallow depth of inspiration. No acute osseous abnormality. IMPRESSION: No acute radiographic findings. Interpreted by: Vic Maciel DO Preliminary Report By: Vic Maciel DO Electronically signed By Vic Maciel DO Dictated Date: 04/08/2022 10:46:37 AM Prelim Date: 04/08/2022 10:47:11 AM Sign Date: 04/08/2022 10:47:11 AM Ordering Provider: LAKHWINDER BERNAL [facility]01-16-2023 Note ORIGINAL EXAMINATION: ONE XRAY VIEW OF THE CHEST04/08/2022 10:42 am COMPARISON: March 19, 2022 HISTORY: ORDERING SYSTEM PROVIDED HISTORY: Reason for Exam: chest pain FINDINGS: Cardiac silhouette is normal. No pneumothorax or pleural effusion. No vascular congestion or interstitial opacity. There is slightly shallow depth of inspiration. No acute osseous abnormality. IMPRESSION: No acute radiographic findings. Interpreted by: Vic Maciel DO Preliminary Report By: Vic Maciel DO Electronically signed By Vic Maciel DO Dictated Date: 04/08/2022 10:46:37 AM Prelim Date: 04/08/2022 10:47:11 AM Sign Date: 04/08/2022 10:47:11 AM Ordering Provider: [facility]12-27-2022 Hospital Discharge instructions Patient Education 03/19/2022 14:32:09 Gastroenteritis, Viral (Adult) Viral Gastroenteritis (Adult) Gastroenteritis is commonly called the stomach flu, although it has nothing to do with influenza.It is most often caused by a virus that affects the stomach and intestinal tract and usually lasts from 2 to 7 days. Common viruses causing gastroenteritis include norovirus, rotavirus, and hepatitisA. Non-viral causes of gastroenteritis include bacteria, parasites, and toxins. The danger from repeated vomiting or diarrhea is dehydration. This is the loss of too much fluid from the body. When this occurs, body fluids must be replaced. Antibiotics don't help with this illness because it is usually viral. Simple home treatment will be helpful. Symptoms of viral gastroenteritis may include: Watery, loose stools Stomach pain or abdominal cramps Fever and chills Nausea and vomiting Loss of bowel control Headache Home care Gastroenteritis is transmitted by contact with the stool or vomit of an infected person. This can occur from person to person or from contact with a contaminated surface. Follow these guidelines when caring for yourself at home: If symptoms are severe, rest at home for the next 24 hours or until you are feeling better. Wash your hands with soap and water or use alcohol-based mechanical unit repairer to prevent the spread of infection. Wash your hands after touching anyone who is sick. Wash your hands or use alcohol-based mechanical unit repairer after using the toilet and before meals. Clean the toilet after each use. Remember these tips when preparing food: People with diarrhea should not prepare or serve food to others. When preparing foods, wash your hands before and after. Wash your hands after using cutting boards, countertops, knives, or utensils that have been in contact with raw food. Dry your hands with a single use towel. Keep uncooked meats away from cooked and [id number] foods. Medicine You may use acetaminophen or NSAID medicines like ibuprofen or naproxen to control fever unless another medicine was given. If you have chronic liver or kidney disease, talk with your healthcare provider before using these medicines. Also talk with your provider if you've had a stomach ulcer or gastrointestinal bleeding. Don't give aspirin to anyone under 18 years of age who is ill with a fever. It may cause severe liver damage. Don't use NSAIDS is you are already taking one for another condition (like arthritis) or are on aspirin (such as for heart disease or after a stroke). If medicine for vomiting or diarrhea are prescribed, take these only as directed. Nausea and diarrhea medicines are generally OK unless you have bleeding, fever, or severe abdominal pain. Diet Follow these guidelines for food: Water and liquids are important so you don't get dehydrated. Drink a small amount at a time or suckon ice chips if you are vomiting. If you eat, avoid fatty, greasy, spicy, or fried foods. Don't eat dairy if you have diarrhea. This can make diarrhea worse. Avoid tobacco, alcohol, and caffeine which may worsen symptoms. During the first 24 hours (the first full day), follow the diet below: Beverages. Sports drinks, soft drinks without caffeine, naima boaz, mineral water (plain or flavored), decaffeinated tea and coffee. If you are very dehydrated, sports drinks aren't a good choice. They have too much sugar and not enough electrolytes. In this case, commercially available products called oral rehydration solutions, are best. Soups. Eat clear broth, consomm , and bouillon. Desserts. Eat gelatin, ice pops, and fruit juice bars. During the next 24 hours (the second day), you may add the following to the above: Hot cereal, plain toast, bread, rolls, and crackers Plain noodles, rice, mashed potatoes, chicken noodle or rice soup Unsweetened canned fruit (avoid pineapple), bananas Limit fat intake to less than 15 grams per day. Do this by avoiding margarine, butter, oils, mayonnaise, sauces, gravies, fried foods, peanut butter, meat, poultry, and fish. Limit fiber and avoid raw or cooked vegetables, fresh fruits (except bananas), and bran cereals. Limit caffeine and chocolate. Don't use spices or seasonings other than salt. Limit dairy products. Avoid alcohol. During the next 24 hours: Gradually resume a normal diet as you feel better and your symptoms improve. If at any time it starts getting worse again, go back to clear liquids until you feel better. Follow-up care Follow up with your healthcare provider, or as advised. Call your provider if you don't get better within 24 hours or if diarrhea lasts more than a week. Also follow up if you are unable to keep downliquids and get dehydrated. If a stool (diarrhea) sample was taken, call as directed for the results. Call 911 Call 911 if any of these occur: Trouble breathing Chest pain Confused Severe drowsiness or trouble awakening Fainting or loss of consciousness Rapid heart rate Seizure Stiff neck When to seek medical advice Call your healthcare provider right away if any of these occur: Abdominal pain that gets worse Continued vomiting (unable to keep liquids down) Frequent diarrhea (more than 5 times a day) Blood in vomit or stool (black or red color) Dark urine, reduced urine output, or extreme thirst Weakness or dizziness Drowsiness Fever of 100.4 F (38 C) or higher, or as directed by your healthcare provider Buddy mccoy [id number] [employer]. [address] [place] [address]. All rights reserved. This information is not intended as a substitute for professional medical care. Always follow yourhealthcare professional's instructions. Follow Up Care 03/19/2022 11:50:13 With:Call ALAN Goodwin Pt. Refferral [phone] Address:Unknown When:2-4 days With:Call Physician Referral Address:Unknown When:2-4 days [facility] 12-27-2022 Emergency department Discharge summary Discharge Instructions Thank you for allowing [facility] to assist you with your healthcare needs. The following is importantdischarge information regarding your hospital visit. Diagnosis from Today's Visit Viral gastroenteritis Vomiting What to Do Next Instructions from Your Care Team No qualifying data available. Post Acute Orders No qualifying data available. You Need to Schedule the Following Appointments Follow Up with Call LAAN Goodwin Pt. Refferral [phone] When Within 2-4 days Follow Up with Call Physician Referral When Within 2-4 days Allergies codeine (Swelling of throat, Hives) Latex Vicodin (Hives) Medications Please ask your primary doctor or pharmacist before taking any other medication not listed, including over the counter drugs, herbal medications, vitamins and or supplements as they may interact withyour home medications. What How Much When Instructions Last Dose New ondansetron (Zofran 4 mg oral tablet) 1 tab(s) by mouth Every 6 hours as needed for Nausea/Vomiting Duration: 5 Days Printed Prescription Unchanged aspirin (aspirin 81 mg oral tablet, chewable) 1 tab(s) by mouth Once a day with a meal Duration: 30 Days Unchanged atorvastatin (atorvastatin 20 mg oral tablet) 1 tab(s) by mouth Every day Duration: 30 Days Please take this list to your next doctor s visit. Bring all medications you take, including over the counter medications, herbals and other supplements with you to your doctor s visit. Patients and families are reminded to discard old lists and to update any records with all medication providers or retail pharmacies. Education Materials Viral Gastroenteritis (Adult) Gastroenteritis is commonly called the stomach flu, although it has nothing to do with influenza.It is most often caused by a virus that affects the stomach and intestinal tract and usually lasts from 2 to 7 days. Common viruses causing gastroenteritis include norovirus, rotavirus, and hepatitisA. Non-viral causes of gastroenteritis include bacteria, parasites, and toxins. The danger from repeated vomiting or diarrhea is dehydration. This is the loss of too much fluid from the body. When this occurs, body fluids must be replaced. Antibiotics don't help with this illness because it is usually viral. Simple home treatment will be helpful. Symptoms of viral gastroenteritis may include: Watery, loose stools Stomach pain or abdominal cramps Fever and chills Nausea and vomiting Loss of bowel control Headache Home care Gastroenteritis is transmitted by contact with the stool or vomit of an infected person. This can occur from person to person or from contact with a contaminated surface. Follow these guidelines when caring for yourself at home: If symptoms are severe, rest at home for the next 24 hours or until you are feeling better. Wash your hands with soap and water or use alcohol-based mechanical unit repairer to prevent the spread of infection. Wash your hands after touching anyone who is sick. Wash your hands or use alcohol-based mechanical unit repairer after using the toilet and before meals. Clean the toilet after each use. Remember these tips when preparing food: People with diarrhea should not prepare or serve food to others. When preparing foods, wash your hands before and after. Wash your hands after using cutting boards, countertops, knives, or utensils that have been in contact with raw food. Dry your hands with a single use towel. Keep uncooked meats away from cooked and rcilv-vz-tgy foods. Medicine You may use acetaminophen or NSAID medicines like ibuprofen or naproxen to control fever unless another medicine was given. If you have chronic liver or kidney disease, talk with your healthcare provider before using these medicines. Also talk with your provider if you've had a stomach ulcer or gastrointestinal bleeding. Don't give aspirin to anyone under 18 years of age who is ill with a fever. It may cause severe liver damage. Don't use NSAIDS is you are already taking one for another condition (like arthritis) or are on aspirin (such as for heart disease or after a stroke). If medicine for vomiting or diarrhea are prescribed, take these only as directed. Nausea and diarrhea medicines are generally OK unless you have bleeding, fever, or severe abdominal pain. Diet Follow these guidelines for food: Water and liquids are important so you don't get dehydrated. Drink a small amount at a time or suckon ice chips if you are vomiting. If you eat, avoid fatty, greasy, spicy, or fried foods. Don't eat dairy if you have diarrhea. This can make diarrhea worse. Avoid tobacco, alcohol, and caffeine which may worsen symptoms. During the first 24 hours (the first full day), follow the diet below: Beverages. Sports drinks, soft drinks without caffeine, naima boaz, mineral water (plain or flavored), decaffeinated tea and coffee. If you are very dehydrated, sports drinks aren't a good choice. They have too much sugar and not enough electrolytes. In this case, commercially available products called oral rehydration solutions, are best. Soups. Eat clear broth, consomm , and bouillon. Desserts. Eat gelatin, ice pops, and fruit juice bars. During the next 24 hours (the second day), you may add the following to the above: Hot cereal, plain toast, bread, rolls, and crackers Plain noodles, rice, mashed potatoes, chicken noodle or rice soup Unsweetened canned fruit (avoid pineapple), bananas Limit fat intake to less than 15 grams per day. Do this by avoiding margarine, butter, oils, mayonnaise, sauces, gravies, fried foods, peanut butter, meat, poultry, and fish. Limit fiber and avoid raw or cooked vegetables, fresh fruits (except bananas), and bran cereals. Limit caffeine and chocolate. Don't use spices or seasonings other than salt. Limit dairy products. Avoid alcohol. During the next 24 hours: Gradually resume a normal diet as you feel better and your symptoms improve. If at any time it starts getting worse again, go back to clear liquids until you feel better. Follow-up care Follow up with your healthcare provider, or as advised. Call your provider if you don't get better within 24 hours or if diarrhea lasts more than a week. Also follow up if you are unable to keep downliquids and get dehydrated. If a stool (diarrhea) sample was taken, call as directed for the results. Call 911 Call 911 if any of these occur: Trouble breathing Chest pain Confused Severe drowsiness or trouble awakening Fainting or loss of consciousness Rapid heart rate Seizure Stiff neck When to seek medical advice Call your healthcare provider right away if any of these occur: Abdominal pain that gets worse Continued vomiting (unable to keep liquids down) Frequent diarrhea (more than 5 times a day) Blood in vomit or stool (black or red color) Dark urine, reduced urine output, or extreme thirst Weakness or dizziness Drowsiness Fever of 100.4 F (38 C) or higher, or as directed by your healthcare provider Buddy mccoy [id number] [employer]. [address] [place] [address], [place] [address]. All rights reserved. This information is not intended as a substitute for professional medical care. Always follow yourhealthcare professional's instructions. Additional Information VACCINATE! IT SAVES LIVES! Members of the community who have not yet received the COVID-19 vaccine and would like to receive it can visit one of [facility] vaccine clinics. There are many vaccine clinic locations within the [facility]. For locations and available times, please visit [email or web address]. It is important to note that some COVID mobile vaccine clinics are held outdoors and may be canceled in rainy orstormy conditions. To learn more about pediatric vaccinations (ages 5-11), we invite you to visit the [employer] [facility] webpage. [email or web address] learn more about the COVID-19 vaccine, we invite you to visit the [facility] website for a list of frequently asked questions. [email or web address] Patient Portal Access Instructions: Stay connected with your healthcare team and access your personal medical information anytime with the [email or web address] Patient Portal. If you would like a full copy of your medical records please contact the [facility] Medical Records Department Friday through Friday between 8a.m. and 4:30p.m. Please follow the directions below to access the portal: 1.Access the email account you provided upon registration to the [facility].2.Look for an invitation email from [facility].3.Open the email and access the invitation link: Accept Invitation to [email or web address].Fill in the required baugh to create your account. Sign into [email or web address] with your username and password that you created in the above steps to stay up to date. You can then view a summary of results, a summary of your visits, and the ability to download your summaries to your computer or send the information securely to a physician. Remember that your healthcare information is confidential, so carefully consider who you will allow to register on the [email or web address] Patient Portal for access to your information. You can also access the [employer] Patient Portal on the [employer]. Simply click on Health Records under HealthData and then click on the [employer] logo. HOW TO SAFELY DISPOSE OF PRESCRIPTION MEDICATIONS Please use one of the following methods to safely dispose of your unused medications. 1.Use a drug disposal kit: the drug disposal pouch allows you to safely discard your old and unuseddrugs. Ask your nurse to give you one when you are discharged.2.Visit a local take-back location: Many local pharmacies and police departments have programs that collect old and unwanted prescriptiondrugs. Call your local pharmacy or go to http://MMIS.[employer]/5S2Hk0g to find one close to you.3.Make use of household items: Use cat litter or old coffee grounds to dispose medications if other options arenot available. Mix your drugs with these household products, seal them in an airtight container andthrow it into the garbage. Call [facility]: [phone] to be sure your drugs can be disposed of in this way. Some medicines may require a different approach.4.Never flush your medications down the toilet. IF YOU HAVE BEEN PRESCRIBED AN OPIOIDS FOR PAIN If you have been prescribed an opioid (such as hydrocodone, oxycodone or morphine), it is critical to understand the possible side effects and risks of opioid pain medications. Even when taken as directed, opioids can have several side effects including: Tolerance, meaning you might need to take more of a medication for the same pain relief. Nausea, vomiting and/or constipation. Sleepiness, dizziness, dry mouth, confusion, depression or itching. Physical dependence, meaning you have withdrawal symptoms when a medication is stopped ? this can develop within a few days. KNOW YOUR RESPONSIBILITIES It is important to know exactly how much and how often to take the opioid pain medications you are prescribed. Never take opioids in higher amounts or more often than prescribed. Do not combine opioids with alcohol or other drugs that cause drowsiness, such as benzodiazepines, also known as benzos,including diazepam and alprazolam, muscle relaxants or sleep aids. Never sell or share prescriptionopioids. This is illegal. Store opioids in a secure place and out of reach of others (including children, family, friends and visitors). The last page(s) of this document has been signed and retained as a CHART COPY Signatures Patient Education Materials Gastroenteritis, Viral (Adult) Medication Leaflets My discharge plan and instructions have been reviewed and explained to me and I,BARRETT LOPEZ understand my current condition and have read and understand these discharge instructions. I have received a written copy of the plan/instructions. If I have questions, I am aware that I should contact my doctor. Patient/Hr Director Signature: Date/Time: Relationship to Patient: Witness Name/Signature: Date/Time: [facility]12-27-2022 Note ORIGINAL HISTORY: Chest pain COMPARISON: 29 December 2021 FINDINGS: The lungs and pleural spaces are clear. The pulmonary vasculature is unremarkable in appearance. The cardiac silhouette is within normal size limits. IMPRESSION: Clear lungs. Interpreted by: Tanya Rocha MD Preliminary Report By: Tanya Rocha MD Electronically signed By Tanya Rocha MD Dictated Date: 03/19/2022 1:03:02 PM Prelim Date: 03/19/2022 1:03:23 PM Sign Date: 03/19/2022 1:03:23 PM Ordering Provider: [facility]12-27-2022 Note ORIGINAL HISTORY: Chest pain COMPARISON: 29 December 2021 FINDINGS: The lungs and pleural spaces are clear. The pulmonary vasculature is unremarkable in appearance. The cardiac silhouette is within normal size limits. IMPRESSION: Clear lungs. Interpreted by: Tanya Rocha MD Preliminary Report By: Tanya Rocha MD Electronically signed By Tanya Rocha MD Dictated Date: 03/19/2022 1:03:02 PM Prelim Date: 03/19/2022 1:03:23 PM Sign Date: 03/19/2022 1:03:23 PM Ordering Provider: [facility]10-18-2022 Miscellaneous Notes* Telephone Encounter - Katerina Britt RN - 01/08/2022 11:33 PM EDT Reason for Call: Rectal bleeding x2 tonight. Patient states blood was bright red, and amount was about a couple of tablespoonfuls. Outcome: 24 hour recommendation given. Patient verbalizes understanding. Call conferenced to forassistance with scheduling. Patient advised to use ER/911 for any emergent symptoms prior to appointment. Reason for Disposition MODERATE rectal bleeding (small blood clots, passing blood without stool, or toilet water turns red) Answer Assessment - Initial Assessment Questions 1. APPEARANCE of BLOOD: Bright red blood 2. AMOUNT: a couple tablespoonfuls 3. FREQUENCY: 1x tonight 4. ONSET: Tonight 5. DIARRHEA: Denies 6. CONSTIPATION: Denies 7. RECURRENT SYMPTOMS: 2 years ago, colon cancer 8. BLOOD THINNERS: Baby aspirin 9. OTHER SYMPTOMS:Weakness, fatigues, abdominal pain left side 10. : N/A Protocols used: Rectal [id number] [facility] Discharge instructions Patient Education 12/31/2021 17:41:09 Syncope, Unk Cause Fainting: Uncertain Cause Fainting (syncope) is a temporary loss of consciousness, which is often associated with a loss of postural tone. There are other causes of fainting, too. It s also called passing out. It occurs when blood flow to the brain is less than normal. Near-fainting (near-syncope) is very similar to fainting, but you don t fully pass out. Common minor causes of fainting include: Sudden fear Pain Nausea Emotional stress Overexertion Suddenly standing up after sitting or lying for a long time can also cause fainting. More serious causes of fainting include: Very slow or very fast heartbeat (arrhythmia) Other types of heart disease, such as heart valve disease or coronary artery disease Dehydration Loss of blood Seizure Stroke Ruptured blood vessel in the brain Taking too much high blood pressure medicine can also cause low blood pressure and fainting. Your healthcare provider does not know the exact cause of your fainting. But the tests today did not show any of the serious causes of fainting. Sometimes you may need more tests to find out if you have a serious problem. That s why it s important to follow up with your provider as advised. Home care Follow these guidelines when caring for yourself at home: Rest today. You may go back to your normal activities when you are feeling back to normal. It is best to stay with someone who can check on you for the next 24 hours to watch for another episode of fainting. If you become lightheaded or dizzy, lie down right away and try to prop your feet above the level of your head. Or sit with your head between your knees. Because the provider doesn t know the exact cause of your fainting or near- fainting spell, it s possible for you to have another spell without warning. Because of this, don t drive a car or operate dangerous equipment. Don t take a bath alone. Use a shower instead. Don t swim alone until your healthcare provider says that you are no longer in danger of having another fainting spell. Follow-up care Follow up with your healthcare provider, or as advised. Call 911 Call 911 if any of these occur: Another fainting spell that s not explained by the common causes listed above Pain in your chest, arm, neck, jaw, back, or abdomen Shortness of breath Severe headache or seizure Blood in vomit or stools (black or red color) Unexpected vaginal bleeding Your heart beats very rapidly, very slowly, or irregularly (palpitations) Weakness in an arm or leg or on one side of the face Difficulty speaking or seeing Extreme drowsiness, confusion, dizziness, or fainting [id number] [employer]. [address] [place] [address]. All rights reserved. This information is not intended as a substitute for professional medical care. Always follow yourhealthcare professional's instructions. Follow Up Care 12/31/2021 16:06:33 With:HARRY HILL DO Address: [address] [place] [address]- [phone] When:2-4 days With:[facility] [place] Address: When:2-4 days With:Follow up with primary care provider Address:Unknown When:2-4 days [facility] 10-10-2022 Emergency department Discharge summary Discharge Instructions Thank you for allowing [facility] to assist you with your healthcare needs. The following is importantdischarge information regarding your hospital visit. Diagnosis from Today's Visit Syncope Headache Headache What to Do Next Instructions from Your Care Team No qualifying data available. Post Acute Orders No qualifying data available. You Need to Schedule the Following Appointments Follow Up with HARRY HILL DO When Within 2-4 days Where: [address] [facility] [place] [address]- [phone] Follow Up with [facility] When Within 2-4 days Where: Follow Up with Follow up with primary care provider When Within 2-4 days Allergies codeine (Swelling of throat, Hives) Latex Vicodin (Hives) Medications Please ask your primary doctor or pharmacist before taking any other medication not listed, including over the counter drugs, herbal medications, vitamins and or supplements as they may interact withyour home medications. What How Much When Why Instructions Last Dose New ondansetron (Zofran 4 mg oral tablet) 1 tab(s) by mouth Every 6 hours as needed for Nausea/Vomiting Syncope Headache Duration: 5 Days Printed Prescription Unchanged aspirin (aspirin 81 mg oral tablet, chewable) 1 tab(s) by mouth Once a day with a meal Duration: 30 Days Unchanged atorvastatin (atorvastatin 20 mg oral tablet) 1 tab(s) by mouth Every day Duration: 30 Days Please take this list to your next doctor s visit. Bring all medications you take, including over the counter medications, herbals and other supplements with you to your doctor s visit. Patients and families are reminded to discard old lists and to update any records with all medication providers or retail pharmacies. Education Materials Fainting: Uncertain Cause Fainting (syncope) is a temporary loss of consciousness, which is often associated with a loss of postural tone. There are other causes of fainting, too. It s also called passing out. It occurs when blood flow to the brain is less than normal. Near-fainting (near-syncope) is very similar to fainting, but you don t fully pass out. Common minor causes of fainting include: Sudden fear Pain Nausea Emotional stress Overexertion Suddenly standing up after sitting or lying for a long time can also cause fainting. More serious causes of fainting include: Very slow or very fast heartbeat (arrhythmia) Other types of heart disease, such as heart valve disease or coronary artery disease Dehydration Loss of blood Seizure Stroke Ruptured blood vessel in the brain Taking too much high blood pressure medicine can also cause low blood pressure and fainting. Your healthcare provider does not know the exact cause of your fainting. But the tests today did not show any of the serious causes of fainting. Sometimes you may need more tests to find out if you have a serious problem. That s why it s important to follow up with your provider as advised. Home care Follow these guidelines when caring for yourself at home: Rest today. You may go back to your normal activities when you are feeling back to normal. It is best to stay with someone who can check on you for the next 24 hours to watch for another episode of fainting. If you become lightheaded or dizzy, lie down right away and try to prop your feet above the level of your head. Or sit with your head between your knees. Because the provider doesn t know the exact cause of your fainting or near- fainting spell, it s possible for you to have another spell without warning. Because of this, don t drive a car or operate dangerous equipment. Don t take a bath alone. Use a shower instead. Don t swim alone until your healthcare provider says that you are no longer in danger of having another fainting spell. Follow-up care Follow up with your healthcare provider, or as advised. Call 911 Call 911 if any of these occur: Another fainting spell that s not explained by the common causes listed above Pain in your chest, arm, neck, jaw, back, or abdomen Shortness of breath Severe headache or seizure Blood in vomit or stools (black or red color) Unexpected vaginal bleeding Your heart beats very rapidly, very slowly, or irregularly (palpitations) Weakness in an arm or leg or on one side of the face Difficulty speaking or seeing Extreme drowsiness, confusion, dizziness, or fainting [id number] [employer]. [address] [place] [address], [place] [address]. All rights reserved. This information is not intended as a substitute for professional medical care. Always follow yourhealthcare professional's instructions. Additional Information VACCINATE! IT SAVES LIVES! Members of the community who have not yet received the COVID-19 vaccine and would like to receive it can visit one of [facility] vaccine clinics. There are many vaccine clinic locations within the [facility]. For locations and available times, please visit [email or web address]. It is important to note that some COVID mobile vaccine clinics are held outdoors and may be canceled in rainy orstormy conditions. To learn more about pediatric vaccinations (ages 5-11), we invite you to visit the [facility] webpage. [email or web address] [email or web address] learn more about the COVID-19 vaccine, we invite you to visit the [place] website for a list of frequently asked questions. [email or web address] _[email or web address] [place] [employer] Patient Portal Access Instructions: Stay connected with your healthcare team and access your personal medical information anytime with the [email or web address] Patient Portal. If you would like a full copy of your medical records please contact the [facility] Medical Records Department Friday through Friday between 8a.m. and 4:30p.m. Please follow the directions below to access the portal: 1.Access the email account you provided upon registration to the hospital.2.Look for an invitation email from [facility].3.Open the email and access the invitation link: Accept Invitation to [email or web address].Fill in the required baugh to create your account. Sign into [email or web address] with your username and password that you created in the above steps to stay up to date. You can then view a summary of results, a summary of your visits, and the ability to download your summaries to your computer or send the information securely to a physician. Remember that your healthcare information is confidential, so carefully consider who you will allow to register on the [email or web address] Patient Portal for access to your information. You can also access the [email or web address] Patient Portal on the [employer]. Simply click on Health Records under [facility] and then click on the [employer] logo. HOW TO SAFELY DISPOSE OF PRESCRIPTION MEDICATIONS Please use one of the following methods to safely dispose of your unused medications. 1.Use a drug disposal kit: the drug disposal pouch allows you to safely discard your old and unuseddrugs. Ask your nurse to give you one when you are discharged.2.Visit a local take-back location: Many local pharmacies and police departments have programs that collect old and unwanted prescriptiondrugs. Call your local pharmacy or go to http://MMIS.[employer]/2K6Dw4p to find one close to you.3.Make use of household items: Use cat litter or old coffee grounds to dispose medications if other options arenot available. Mix your drugs with these household products, seal them in an airtight container andthrow it into the garbage. Call [facility]: [phone] to be sure your drugs can be disposed of in this way. Some medicines may require a different approach.4.Never flush your medications down the toilet. IF YOU HAVE BEEN PRESCRIBED AN OPIOIDS FOR PAIN If you have been prescribed an opioid (such as hydrocodone, oxycodone or morphine), it is critical to understand the possible side effects and risks of opioid pain medications. Even when taken as directed, opioids can have several side effects including: Tolerance, meaning you might need to take more of a medication for the same pain relief. Nausea, vomiting and/or constipation. Sleepiness, dizziness, dry mouth, confusion, depression or itching. Physical dependence, meaning you have withdrawal symptoms when a medication is stopped ? this can develop within a few days. KNOW YOUR RESPONSIBILITIES It is important to know exactly how much and how often to take the opioid pain medications you are prescribed. Never take opioids in higher amounts or more often than prescribed. Do not combine opioids with alcohol or other drugs that cause drowsiness, such as benzodiazepines, also known as benzos,including diazepam and alprazolam, muscle relaxants or sleep aids. Never sell or share prescriptionopioids. This is illegal. Store opioids in a secure place and out of reach of others (including children, family, friends and visitors). The last page(s) of this document has been signed and retained as a CHART COPY Signatures Patient Education Materials Syncope, Unk Cause Medication Leaflets My discharge plan and instructions have been reviewed and explained to me and I,BARRETT LOPEZ understand my current condition and have read and understand these discharge instructions. I have received a written copy of the plan/instructions. If I have questions, I am aware that I should contact my doctor. Patient/Hr Director Signature: Date/Time: Relationship to Patient: Witness Name/Signature: Date/Time: [facility]10-10-2022 Note ORIGINAL EXAMINATION: CT OF THE HEAD WITHOUT CONTRAST 12/31/2021 4:45 pm TECHNIQUE: CT of the head was performed without the administration of intravenous contrast. Automated exposure control, iterative reconstruction, and/or weight based adjustment of the mA/kV was utilized to reduce the radiation dose to as low as reasonably achievable. COMPARISON: None. HISTORY: ORDERING SYSTEM PROVIDED HISTORY: Reason for Exam: pain/headache FINDINGS: BRAIN/VENTRICLES: There is no acute intracranial hemorrhage, mass effect or midline shift. No abnormal extra-axial fluid collection. The cai-white differentiation is maintained without evidence of an acute infarct. There is no evidence of hydrocephalus. ORBITS: The visualized portion of the orbits demonstrate no acute abnormality. SINUSES: The visualized paranasal sinuses and mastoid air cells demonstrate no acute abnormality. SOFT TISSUES/SKULL: No acute abnormality of the visualized skull or soft tissues. IMPRESSION: No acute intracranial abnormality. Interpreted by: Luis Hammond Preliminary Report By: Luis Hammond Electronically signed By Luis Hammond Dictated Date: 12/31/2021 4:48:45 PM Prelim Date: 12/31/2021 4:54:29 PM Sign Date: 12/31/2021 4:54:29 PM Ordering Provider: VICTOR M WALTON [facility]10-10-2022 Note ORIGINAL EXAMINATION: CT OF THE HEAD WITHOUT CONTRAST 12/31/2021 4:45 pm TECHNIQUE: CT of the head was performed without the administration of intravenous contrast. Automated exposure control, iterative reconstruction, and/or weight based adjustment of the mA/kV was utilized to reduce the radiation dose to as low as reasonably achievable. COMPARISON: None. HISTORY: ORDERING SYSTEM PROVIDED HISTORY: Reason for Exam: pain/headache FINDINGS: BRAIN/VENTRICLES: There is no acute intracranial hemorrhage, mass effect or midline shift. No abnormal extra-axial fluid collection. The cai-white differentiation is maintained without evidence of an acute infarct. There is no evidence of hydrocephalus. ORBITS: The visualized portion of the orbits demonstrate no acute abnormality. SINUSES: The visualized paranasal sinuses and mastoid air cells demonstrate no acute abnormality. SOFT TISSUES/SKULL: No acute abnormality of the visualized skull or soft tissues. IMPRESSION: No acute intracranial abnormality. Interpreted by: Luis Hammond Preliminary Report By: Luis Hammond Electronically signed By Luis Hammond Dictated Date: 12/31/2021 4:48:45 PM Prelim Date: 12/31/2021 4:54:29 PM Sign Date: 12/31/2021 4:54:29 PM Ordering Provider: [facility]10-09-2022 Hospital Discharge instructions Patient Education 12/30/2021 09:40:17 Ischemic Stroke, Zkyh-hy-Nwoj Ischemic Stroke An ischemic stroke is the sudden of brain tissue. Blood carries oxygen to all areas of the body. This type of stroke happens when your blood does not flow to your brain like normal. Your brain cannot get the oxygen it needs. This is an emergency. It must be treated right away. Symptoms of a stroke usually happen all of a sudden. You may notice them when you wake up. They caninclude: Weakness or loss of feeling in your face, arm, or leg. This often happens on one side of the body. Trouble walking. Trouble moving your arms or legs. Loss of balance or coordination. Feeling confused. Trouble talking or understanding what people are saying. Slurred speech. Trouble seeing. Seeing two of one object (double vision). Feeling dizzy. Feeling sick to your stomach (nauseous) and throwing up (vomiting). A very bad headache for no reason. Get help as soon as any of these problems start. This is important. Some treatments work better if they are given right away. These include: Aspirin. Medicines to control blood pressure. A shot (injection) of medicine to break up the blood clot. Treatments given in the blood vessel (artery) to take out the clot or break it up. Other treatments may include: Oxygen. Fluids given through an IV tube. Medicines to thin out your blood. Procedures to help your blood flow better. What increases the risk? Certain things may make you more likely to have a stroke. Some of these are things that you can change, such as: Being very overweight (obesity). Smoking. Taking control pills. Not being active. Drinking too much alcohol. Using drugs. Other risk factors include: High blood pressure. High cholesterol. Diabetes. Heart disease. Being , , , or . Being over age 60. Family history of stroke. Having had blood clots, stroke, or warning stroke (transient ischemic attack, TIA) in the past. Sickle cell disease. Being a woman with a history of high blood pressure in (preeclampsia). Migraine headache. Sleep apnea. Having an irregular heartbeat (atrial fibrillation). Long-term (chronic) diseases that cause soreness and swelling (inflammation). Disorders that affect how your blood clots. Follow these instructions at home: Medicines Take uwfm-luu-ubottiv and prescription medicines only as told by your doctor. If you were told to take aspirin or another medicine to thin your blood, take it exactly as told byyour doctor. ?Taking too much of the medicine can cause bleeding. ?If you do not take enough, it may not work as well. Know the side effects of your medicines. If you are taking a blood thinner, make sure you: ?Hold pressure over any cuts for longer than usual. ?Tell your dentist and other doctors that you take this medicine. ?Avoid activities that may cause damage or injury to your body. Eating and drinking Follow instructions from your doctor about what you cannot eat or drink. Eat healthy foods. If you have trouble with swallowing, do these things to avoid choking: ?Take small bites when eating. ?Eat foods that are soft or pureed. Safety Follow instructions from your health care team about physical activity. Use a walker or cane as told by your doctor. Keep your home safe so you do not fall. This may include: ?Having experts look at your home to make sure it is safe. ?Putting grab bars in the bedroom and bathroom. ?Using raised toilets. ?Putting a seat in the shower. General instructions Do not use any tobacco products. ?Examples of these are cigarettes, chewing tobacco, and e-cigarettes. ?If you need help quitting, ask your doctor. Limit how much alcohol you drink. This means no more than 1 drink a day for non women and 2drinks a day for men. One drink equals 12 oz of beer, 5 oz of wine, or 1 oz of hard liquor. If you need help to stop using drugs or alcohol, ask your doctor to refer you to a program or specialist. Stay active. Exercise as told by your doctor. Keep all follow-up visits as told by your doctor. This is important. Get help right away if: You have any signs of a stroke. BE FAST is an easy way to remember the main warning signs: ?B - Balance. Signs are dizziness, sudden trouble walking, or loss of balance. ?E - Eyes. Signs are trouble seeing or a change in how you see. ?F - Face. Signs are sudden weakness or loss of feeling of the face, or the face or eyelid droopingon one side. ?A - Arms. Signs are weakness or loss of feeling in an arm. This happens suddenly and usually on one side of the body. ?S - Speech. Signs are sudden trouble speaking, slurred speech, or trouble understanding what people say. ?T - Time. Time to call emergency services. Write down what time symptoms started. You have other signs of a stroke, such as: ?A sudden, very bad headache with no known cause. ?Feeling sick to your stomach (nausea). ?Throwing up (vomiting). ?Jerky movements you cannot control (seizure). These symptoms may be an emergency. Do not wait to see if the symptoms will go away. Get medical help right away. Call your local emergency services (911 in the [place] Do not drive yourself to the hospital. Summary An ischemic stroke is the sudden of brain tissue. Symptoms of a stroke usually happen all of a sudden. You may notice them when you wake up. Get help if you have any warning signs of a stroke. This is important. Some treatments work better if they are given right away. This information is not intended to replace advice given to you by your health care provider. Make sure you discuss any questions you have with your health care provider. Document Released: 02/27/2012 Document Revised: 08/19/2018 Document Reviewed: 06/05/2016 [employer] Patient Education 2020 [employer]. Follow Up Care 12/29/2021 05:03:43 With:Follow up with primary care provider Address: When:3-5 days Comments:TIA, MigraineDoes not recall name of PCP With:ALMA MARTINS Address: When:Within 4 Week(s) Comments:TIA [facility] 10-09-2022 Note Discharge Instructions Thank you for allowing [facility] to assist you with your healthcare needs. The following is importantdischarge information regarding your hospital visit. Your Care Team PHYSICIAN, NONE What to do next Instructions From Your Doctor Please take your medications as prescribed. You are being started on aspirin and atorvastatin. You will receive [employer] monitor in the mail that you supposed to wear for 30 days. Instructions will be provided with it. Please follow-up with your primary care physician as well as [facility] after discharge. If your symptoms worsen, call your PCP or go to nearest ER. Follow Up Appointments Follow Up with Follow up with primary care provider When Within 3-5 days Why: TIA, Migraine Does not recall name of PCP Where: Follow Up with [facility] When In 4 weeks Why: TIA Where: The Following Activity and Diet Have Been Ordered for You Discharge Activity - Ordered -- Activity As Tolerated, 12/30/21 8:31:00 EDT Discharge Diet - Ordered -- Type of Diet: Regular, 12/30/21 8:31:00 EDT The Following Equipment Has Been Ordered for You No qualifying data available. The Following Treatments Have Been Ordered for You Discharge Labs No qualifying data available. Discharge Radiology No qualifying data available. Other Therapies No qualifying data available. Post Acute Orders No qualifying data available. Someone Will Contact You Regarding These Home Health Referrals No home referrals have been ordered for you. No one will call you. Allergies codeine (Swelling of throat, Hives) Latex Vicodin (Hives) Medications Please ask your primary doctor or pharmacist before taking any other medication not listed, including over the counter drugs, herbal medications, vitamins and or supplements as they may interact withyour home medications. What How Much When Why Instructions Last Dose New aspirin (aspirin 81 mg oral tablet, chewable) 1 tab(s) by mouth Once a day with a meal Duration: 30 Days Pickup at [facility] New atorvastatin (atorvastatin 20 mg oral tablet) 1 tab(s) by mouth Every day Duration: 30 Days Pickup at [facility] Changed ondansetron (Zofran 4 mg oral tablet) 1 tab(s) by mouth Every 6 hours as needed for Nausea Sinusitis Unchanged fluticasone nasal (Flonase 50 mcg/ inh nasal spray) 1 spray(s) each nostril Two (2) times a day Duration: 7 Days Pharmacy Information [facility]: [address], [place] [id number] [phone] What How Much When Why Comments Stop Taking acetaminophen-oxyCODONE (Percocet 5 mg-325 mg oral tablet) 1 tab(s) by mouth Every 6 hours as needed for for pain Sinusitis Duration: 3 Days Stop Taking baclofen (baclofen 20 mg oral tablet) 1 tab(s) by mouth Three (3) times a day Duration: 5 Days Stop Taking doxycycline (doxycycline hyclate 100 mg oral capsule) 1 cap by mouth Two (2) times a day Sinusitis Duration: 7 Days Stop Taking lidocaine topical (Lidoderm 5% topical patch) 1 patch(es) Transdermal Every day Chronic back pain Sciatica Stop Taking naproxen (Anaprox-DS 550 mg oral tablet) 1 tab(s) by mouth Two (2) times a day as needed for as needed for pain Chronic back pain Sciatica Stop Taking orphenadrine (Norflex use orphenadrine ) 100 Milligram by mouth Two (2) times a day Chronic back pain Sciatica Please take this list to your next doctor s visit. Bring all medications you take, including over the counter medications, herbals and other supplements with you to your doctor s visit. Patients and families are reminded to discard old lists and to update any records with all medication providers or retail pharmacies. Education Materials Ischemic Stroke An ischemic stroke is the sudden of brain tissue. Blood carries oxygen to all areas of the body. This type of stroke happens when your blood does not flow to your brain like normal. Your brain cannot get the oxygen it needs. This is an emergency. It must be treated right away. Symptoms of a stroke usually happen all of a sudden. You may notice them when you wake up. They caninclude: Weakness or loss of feeling in your face, arm, or leg. This often happens on one side of the body. Trouble walking. Trouble moving your arms or legs. Loss of balance or coordination. Feeling confused. Trouble talking or understanding what people are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 care. When to seek medical advice Call your health care provider right away if any of these occur: The cast or splint cracks The plaster cast or splint becomes wet or soft The fiberglass cast or splint stays wet for more than 24 hours Bad odor from the cast or wound fluid stains the cast Tightness or pain under the cast or splint gets worse Fingers become swollen, cold, blue, numb, or tingly You can t move your fingers Skin around cast or splint becomes red or irritated Fever of 100.4 F (38 C) or higher, or chills as directed by your healthcare provider [id number] [employer]. [address] [place] [address]. All rights reserved. This information is not intended as a substitute for professional medical care. Always follow yourhealthcare professional's instructions. 11/17/2021 22:11:08 CONTUSION, Hand Contusion: Hand You have a CONTUSION of your hand. This causes local pain, swelling and sometimes bruising. There are no broken bones. This injury takes from a few days to a few weeks to heal. Home Care: 1) Keep your arm elevated to reduce pain and swelling. This is very important during the first 48 hours. 2) Apply an ice pack (ice cubes in a plastic bag, wrapped in a towel) over the injured area for 20 minutes every 1-2 hours the first day. You should continue with ice packs 3-4 times a day for the next two days. Continue the use of ice packs for relief of pain and swelling as needed. 3) You may use acetaminophen (Tylenol) or ibuprofen (Motrin, Advil) to control pain, unless anotherpain medicine was prescribed. [ NOTE : If you have chronic liver or kidney disease or ever had a stomach ulcer or GI bleeding, talk with your doctor before using these medicines.] Follow Up with your doctor or this facility if you are not starting to improve within the next THREE days. [NOTE: If X-rays were taken, they will be reviewed by a radiologist. You will be notified of any new findings that may affect your care.] Get Prompt Medical Attention if any of the following occur: -- Pain or swelling increases -- Redness, warmth or drainage -- Hand or fingers becomes cold, blue, numb or tingly [id number] [employer]. [address] [place] [address]. All rights reserved. This information is not intended as a substitute for professional medical care. Always follow yourhealthcare professional's instructions. Follow Up Care 11/17/2021 22:04:05 With:your orthopedic doctor Address: When:2-4 days With:Call Physician Referral Address:Unknown When:2-4 days With:Go to emergency room if symptoms worsen Address:Unknown When:2-4 days [facility] Note Discharge Instructions Thank you for allowing [place] to assist you with your healthcare needs. The following is importantdischarge information regarding your hospital visit. Diagnosis from Today's Visit Fracture of distal end of radius Contusion of hand Hand pain-swelling What to Do Next Instructions from Your Care Team X-ray showed a possible distal radius fracture. You were placed in splint here. Keep splint in place. Keep splint dry. Follow-up with your orthopedic doctor. Return to the emergency department if youdevelop worsening pain, numbness, decreased blood flow to your hand, or any other care concern. No qualifying data available. Post Acute Orders No qualifying data available. You Need to Schedule the Following Appointments Follow Up with your orthopedic doctor When Within 2-4 days Where: Follow Up with Call Physician Referral When Within 2-4 days Follow Up with Go to emergency room if symptoms worsen When Within 2-4 days Allergies codeine (Swelling of throat, Hives) Latex Vicodin (Hives) Medications Please ask your primary doctor or pharmacist before taking any other medication not listed, including over the counter drugs, herbal medications, vitamins and or supplements as they may interact withyour home medications. What How Much When Why Instructions Last Dose Changed acetaminophen-oxyCODONE (Percocet 5 mg-325 mgoral tablet) 1 tab(s) by mouth Every 6 hours as needed for for pain Sinusitis Duration: 3 Days Changed acetaminophen-oxyCODONE (Percocet 5 mg-325 mg oral tablet) 1 tab(s) by mouth Every 6 hours as needed for for pain Fracture of distal end of radius Contusion of hand Duration: 3 Days Printed Prescription Unchanged baclofen (baclofen 20 mg oral tablet) 1 tab(s) by mouth Three (3) times a day Duration: 5 Days Unchanged doxycycline (doxycycline hyclate 100 mg oral capsule) 1 cap by mouth Two (2) times a day Sinusitis Duration: 7 Days Unchanged fluticasone nasal (Flonase 50 mcg/ inh nasal spray) 1 spray(s) each nostril Two (2) times a day Duration: 7 Days Unchanged lidocaine topical (Lidoderm 5% topical patch) 1 patch(es) Transdermal Every day Chronic back pain Sciatica Unchanged naproxen (Anaprox-DS 550 mg oral tablet) 1 tab(s) by mouth Two (2) times a day as needed for as needed for pain Chronic back pain Sciatica Unchanged ondansetron (Zofran 4 mg oral tablet) 1 tab(s) by mouth Every 8 hours Viral syndrome Duration: 3 Days Unchanged ondansetron (Zofran 4 mg oral tablet) 1 tab(s) by mouth Every 6 hours as needed for Nausea Sinusitis Unchanged orphenadrine (Norflex use orphenadrine ) 100 Milligram by mouth Two (2) times a day Chronic back pain Sciatica Please take this list to your next doctor s visit. Bring all medications you take, including over the counter medications, herbals and other supplements with you to your doctor s visit. Patients and families are reminded to discard old lists and to update any records with all medication providers or retail pharmacies. Education Materials Result type: XR Hand Minimum 3 Views Right Result date: November 17, 2021 22:22 EDT Result status: Auth (Verified) Result title: XR HAND MINIMUM 3 VIEWS RIGHT Performed by: ELINOR WISE MD on November 17, 2021 22:21 EDT Cosigned by: ELINOR WISE MD Verified by: ELINOR WISE MD on November 17, 2021 22:22 EDT Encounter info: [id number], SKYE REGAN, Emergency, 11/17/2021 - Contributor system: [employer] * Final Report * [id number] ORIGINAL EXAMINATION: THREE XRAY VIEWS OF THE RIGHT HAND 11/17/2021 10:23 pm COMPARISON: None. HISTORY: ORDERING SYSTEM PROVIDED HISTORY: Reason for Exam: pain, injury Heavy object fell on right hand. Pain and swelling posterior right hand. FINDINGS: An oblique lucency extends from the distal radial joint surface to the lateral metaphysis, likely representing nondisplaced fracture. There is normal alignment. No acute joint abnormality. No focal osseous lesion. No focal soft tissue abnormality. IMPRESSION: Likely nondisplaced fracture of the distal radius, extending to the radiocarpal joint. Interpreted by: Elinor Wise Preliminary Report By: Elinor Wise Electronically signed By Elinor Wise Dictated Date: 11/17/2021 11:34:01 PM Prelim Date: 11/17/2021 11:41:25 PM Sign Date: 11/17/2021 11:41:25 PM Ordering Provider: MICHELLE RIZO IMAGE This document has an image Document Released: 03/10/2006 Document Revised: 02/24/2013 Document Reviewed: 03/11/2014 ExitCare Patient Information 2015 [facility]. This information is not intended to replace advicegiven to you by your health care provider. Make sure you discuss any questions you have with your health care provider. Upper Extremity Fracture You have a break (fracture) of the arm, wrist, or hand. This may be a small crack in the bone. Or it may be a major break, with the broken parts pushed out of position. Most fractures will heal without surgery. But you may need surgery if the bones are far out of place or if the break is near the elbow. Treatment is with a special sling called a shoulder immobilizer, or a splint or cast, depending on the type of fracture and where the fracture is located. This fracture takes 4 to 6 weeks or longer to heal. The cast may need to be changed in 2 to 3 weeks as swelling goes down. Home care Follow these guidelines when caring for yourself: If you were given a shoulder immobilizer, leave it in place. This will support the injured arm at your side. This is the best position for bone healing. The shoulder immobilizer can be adjusted. If it becomes loose, adjust it so that your forearm is level with the ground (horizontal). Your hand should be level with your elbow. Put an ice pack on the injured area. Do this for 20 minutes every 1 to 2 hours the first day for pain relief. You can make an ice pack by wrapping a plastic bag of ice cubes in a thin towel. As the ice melts, be careful that the cast/splint/sling doesn t get wet. You can put the ice pack inside thesling and directly over the splint or cast. Continue using the ice pack 3 to 4 times a day for the next 2 days. Then use the ice pack as needed to ease pain and swelling. Keep the cast, splint, or sling completely dry at all times. Bathe with your cast, splint, or slingout of the water. Protect it with a large plastic bag, rubber-banded or taped at the top end. If a fiberglass cast, splint, or sling gets wet, you can dry it with a chair spring assembler. You may use acetaminophen or ibuprofen to control pain, unless another pain medicine was prescribed. If you have chronic liver or kidney disease, talk with your healthcare provider before using thesemedicines. Also talk with your provider if you ve had a stomach ulcer or gastrointestinal bleeding. Don t put creams or objects under the cast if you have itching. Follow-up care Follow up with your healthcare provider as advised. This is to make sure the bone is healing the way it should. X-rays may be taken. You will be told of any new findings that may affect your care. When to seek medical advice Call your health care provider right away if any of these occur: The cast or splint cracks The plaster cast or splint becomes wet or soft The fiberglass cast or splint stays wet for more than 24 hours Bad odor from the cast or wound fluid stains the cast Tightness or pain under the cast or splint gets worse Fingers become swollen, cold, blue, numb, or tingly You can t move your fingers Skin around cast or splint becomes red or irritated Fever of 100.4 F (38 C) or higher, or chills as directed by your healthcare provider [employer]. [address] [place] [address]. All rights reserved. This information is not intended as a substitute for professional medical care. Always follow yourhealthcare professional's instructions. Contusion: Hand You have a CONTUSION of your hand. This causes local pain, swelling and sometimes bruising. There are no broken bones. This injury takes from a few days to a few weeks to heal. Home Care: 1) Keep your arm elevated to reduce pain and swelling. This is very important during the first 48 hours. 2) Apply an ice pack (ice cubes in a plastic bag, wrapped in a towel) over the injured area for 20 minutes every 1-2 hours the first day. You should continue with ice packs 3-4 times a day for the next two days. Continue the use of ice packs for relief of pain and swelling as needed. 3) You may use acetaminophen (Tylenol) or ibuprofen (Motrin, Advil) to control pain, unless anotherpain medicine was prescribed. [ NOTE : If you have chronic liver or kidney disease or ever had a stomach ulcer or GI bleeding, talk with your doctor before using these medicines.] Follow Up with your doctor or this facility if you are not starting to improve within the next THREE days. [NOTE: If X-rays were taken, they will be reviewed by a radiologist. You will be notified of any new findings that may affect your care.] Get Prompt Medical Attention if any of the following occur: -- Pain or swelling increases -- Redness, warmth or drainage -- Hand or fingers becomes cold, blue, numb or tingly [employer]. [address] [place] [address]. All rights reserved. This information is not intended as a substitute for professional medical care. Always follow yourhealthcare professional's instructions. Additional Information VACCINATE! IT SAVES LIVES! Members of the community who have not yet received the COVID-19 vaccine and would like to receive it can visit one of [facility] vaccine clinics. There are many vaccine clinic locations within the [facility]. For locations and available times, please visit [email or web address]. It is important to note that some COVID mobile vaccine clinics are held outdoors and may be canceled in rainy orstormy conditions. To learn more about pediatric vaccinations (ages 5-11), we invite you to visit the [employer] [facility] webpage. [email or web address]/[email or web address]-[email or web address]-[email or web address] stions.htmlTo learn more about the COVID-19 vaccine, we invite you to visit the [employer] website for a list of frequently asked questions. [email or web address] [email or web address] [place] [employer] Patient Portal Access Instructions: Stay connected with your healthcare team and access your personal medical information anytime with the [email or web address] Patient Portal. If you would like a full copy of your medical records please contact the [facility] Medical Records Department Friday through Friday between 8a.m. and 4:30p.m. Please follow the directions below to access the portal: 1.Access the email account you provided upon registration to the hospital.2.Look for an invitation email from [facility].3.Open the email and access the invitation link: Accept Invitation to [email or web address].Fill in the required baugh to create your account. Sign into [email or web address] with your username and password that you created in the above steps to stay up to date. You can then view a summary of results, a summary of your visits, and the ability to download your summaries to your computer or send the information securely to a physician. Remember that your healthcare information is confidential, so carefully consider who you will allow to register on the [email or web address] Patient Portal for access to your information. You can also access the [email or web address] Patient Portal on the [employer] priscila. Simply click on Health Records under [facility] and then click on the [facility] logo. HOW TO SAFELY DISPOSE OF PRESCRIPTION MEDICATIONS Please use one of the following methods to safely dispose of your unused medications. 1.Use a drug disposal kit: the drug disposal pouch allows you to safely discard your old and unuseddrugs. Ask your nurse to give you one when you are discharged.2.Visit a local take-back location: Many local pharmacies and police departments have programs that collect old and unwanted prescriptiondrugs. Call your local pharmacy or go to http://MMIS.[employer]/6K8Nf0d to find one close to you.3.Make use of household items: Use cat litter or old coffee grounds to dispose medications if other options arenot available. Mix your drugs with these household products, seal them in an airtight container andthrow it into the garbage. Call [facility]: [phone] to be sure your drugs can be disposed of in this way. Some medicines may require a different approach.4.Never flush your medications down the toilet. IF YOU HAVE BEEN PRESCRIBED AN OPIOIDS FOR PAIN If you have been prescribed an opioid (such as hydrocodone, oxycodone or morphine), it is critical to understand the possible side effects and risks of opioid pain medications. Even when taken as directed, opioids can have several side effects including: Tolerance, meaning you might need to take more of a medication for the same pain relief. Nausea, vomiting and/or constipation. Sleepiness, dizziness, dry mouth, confusion, depression or itching. Physical dependence, meaning you have withdrawal symptoms when a medication is stopped ? this can develop within a few days. KNOW YOUR RESPONSIBILITIES It is important to know exactly how much and how often to take the opioid pain medications you are prescribed. Never take opioids in higher amounts or more often than prescribed. Do not combine opioids with alcohol or other drugs that cause drowsiness, such as benzodiazepines, also known as benzos,including diazepam and alprazolam, muscle relaxants or sleep aids. Never sell or share prescriptionopioids. This is illegal. Store opioids in a secure place and out of reach of others (including children, family, friends and visitors). The last page(s) of this document has been signed and retained as a CHART COPY Signatures Patient Education Materials ABDELRAHMAN JEONG (CUSTOM) Fracture, Upper Extremity CONTUSION, Hand Medication Leaflets My discharge plan and instructions have been reviewed and explained to me and I,BARRETT LOPEZ understand my current condition and have read and understand these discharge instructions. I have received a written copy of the plan/instructions. If I have questions, I am aware that I should contact my doctor. Patient/Hr Director Signature: Date/Time: Relationship to Patient: Witness Name/Signature: Date/Time: [facility]08-27-2022 Note ORIGINAL EXAMINATION: THREE XRAY VIEWS OF THE RIGHT HAND 11/17/2021 10:23 pm COMPARISON: None. HISTORY: ORDERING SYSTEM PROVIDED HISTORY: Reason for Exam: pain, injury Heavy object fell on right hand. Pain and swelling posterior right hand. FINDINGS: An oblique lucency extends from the distal radial joint surface to the lateral metaphysis, likely representing nondisplaced fracture. There is normal alignment. No acute joint abnormality. No focal osseous lesion. No focal soft tissue abnormality. IMPRESSION: Likely nondisplaced fracture of the distal radius, extending to the radiocarpal joint. Interpreted by: Elinor Wise Preliminary Report By: Elinor Wise Electronically signed By Elinor Wise Dictated Date: 11/17/2021 11:34:01 PM Prelim Date: 11/17/2021 11:41:25 PM Sign Date: 11/17/2021 11:41:25 PM Ordering Provider: MICHELLE [facility]08-27-2022 Note ORIGINAL EXAMINATION: THREE XRAY VIEWS OF THE RIGHT HAND 11/17/2021 10:23 pm COMPARISON: None. HISTORY: ORDERING SYSTEM PROVIDED HISTORY: Reason for Exam: pain, injury Heavy object fell on right hand. Pain and swelling posterior right hand. FINDINGS: An oblique lucency extends from the distal radial joint surface to the lateral metaphysis, likely representing nondisplaced fracture. There is normal alignment. No acute joint abnormality. No focal osseous lesion. No focal soft tissue abnormality. IMPRESSION: Likely nondisplaced fracture of the distal radius, extending to the radiocarpal joint. Interpreted by: Elinor Wise Preliminary Report By: Elinor Wise Electronically signed By Elinor Wise Dictated Date: 11/17/2021 11:34:01 PM Prelim Date: 11/17/2021 11:41:25 PM Sign Date: 11/17/2021 11:41:25 PM [facility]ing [facility] Follow Up Care 08/24/2021 22:31:27 With:Follow up with primary care provider Address:Unknown When:2-4 days [facility] 05-31-2022 Hospital Discharge instructions Follow Up Care 08/21/2021 01:08:52 With:LUIS TONY Address: [address] [place] [address], [address] [place] [address]- [phone] Business (1) When:2-4 days Comments:Schedule appointment as soon as possibleActivity as described till seen. Naprosyn and tylenol for pain [facility] 05-18-2022 Hospital Discharge instructions Patient Education 08/08/2021 03:09:29 Patella Fracture Patella Fracture Your kneecap bone (patella) is broken (fractured). This causes pain, swelling, and sometimes bruising. Depending on how severe the fracture is, it may take about 6 to 12 weeks, or longer to heal. A knee brace (immobilizer), splint, or cast will be put on. Home care Follow these guidelines when caring for yourself at home: You will be given a splint, cast, or knee brace to keep your knee joint from moving. Unless you were told otherwise, use crutches or a walker. Don t put weight on the injured leg until your healthcare provider tells you to do so. You can rent crutches or a walker at many pharmacies and surgical or orthopedic supply stores. Keep your leg elevated to reduce pain and swelling. When sleeping, put a pillow under the injured leg. When sitting, support the injured leg so it is above your waist. This is very important during the first 2 days (48 hours). Put an ice pack on the injured area. Do this for 20 minutes every 1 to 2 hours the first day for pain relief. You can make an ice pack by wrapping a plastic bag of ice cubes in a thin towel. As the ice melts, be careful that the cast, splint, or brace doesn t get wet. You can place the ice pack directly over the splint, cast, or brace. Continue using the ice pack 3 to 4 times a day for the next 2days. Then use the ice pack as needed to ease pain and swelling. Keep the cast, splint, or brace completely dry at all times. Bathe with your cast, splint, or braceout of the water. Protect it with a large plastic bag, rubber-banded at the top end. If a brace or fiberglass cast, splint, or brace gets wet, you can dry it with a chair spring assembler. You may use acetaminophen or ibuprofen to control pain, unless another pain medicine was prescribed. If you have chronic liver or kidney disease, talk with your healthcare provider before using thesemedicines. Also talk with your provider if you ve had a stomach ulcer or gastrointestinal bleeding. Your healthcare provider may tell you to do strengthening exercises once you can put weight on the injured leg. The exercises will limit bone and muscle loss. You may need surgery if the bone is pulled too far apart or is displaced. It s very important to follow up with your healthcare provider. This is because a kneecap fracture can cause long-term problems like arthritis, chronic pain, and weakness. Follow-up care Follow up with your healthcare provider, or as advised. This is to make sure the bone is healing the way it should. X-rays may be taken. You will be told of any new findings that may affect your care. When to seek medical advice Call your healthcare provider right away if any of these occur: The plaster cast or splint becomes wet or soft The cast or splint cracks The fiberglass cast or splint stays wet for more than 24 hours Knee pain or tightness under the brace, splint, or cast gets worse Toes become swollen, cold, blue, numb, or tingly You can t move your toes or your leg becomes weak Skin around cast, splint, or brace becomes red [id number] [employer]. [address] [place] [address], [place] [address]. All rights reserved. This information is not intended as a substitute for professional medical care. Always follow yourhealthcare professional's instructions. 08/08/2021 03:09:07 R.I.C.E. RICE RICE stands for rest, ice, compression, and elevation. Doing these things helps limit pain and swelling after an injury. RICE also helps injuries heal faster. Use RICE for sprains, strains, and severe bruises or bumps. Follow the tips on this handout and begin RICE as soon as possible after an injury. Rest Pain is your body s way of telling you to rest an injured area. Whether you have hurt an elbow, hand, foot, or knee, limiting its use will prevent further injury and help you heal. Ice Applying ice right after an injury helps prevent swelling and reduce pain. Don t place ice directlyon your skin. Wrap a cold pack or bag of ice in a thin cloth. Place it over the injured area. Ice for 10 minutes every 3 hours. Don t ice for more than 20 minutes at a time. Compression Putting pressure (compression) on an injury helps prevent swelling and provides support. Wrap the injured area firmly with an elastic bandage. If your hand or foot tingles, becomes discolored, or feels cold to the touch, the bandage may be too tight. Rewrap it more loosely. If your bandage becomes too loose, rewrap it. Do not wear an elastic bandage overnight. Elevation Keeping an injury elevated helps reduce swelling, pain, and throbbing. Elevation is most effective when the injury is kept elevated higher than the heart. Call your healthcare provider if you notice any of the following: Fingers or toes feel numb, are cold to the touch, or change color. Skin looks shiny or tight. Pain, swelling, or bruising worsens and is not improved with elevation. [id number] [employer]. [address] [place] [address]. All rights reserved. This information is not intended as a substitute for professional medical care. Always follow yourhealthcare professional's instructions. Follow Up Care 08/08/2021 02:00:56 With:ESTER DAVENPORT MD Address: [address] [place]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 Denies headache(s), paresthesias or weakness EXAM Physical Exam Const Vital Signs: 06/22/23 10:41 Temperature 96.9 F L Temperature Source Temporal Pulse Rate 79 Respiratory Rate 18 Blood Pressure 151/69 H Blood Pressure Mean 96 Pulse Ox 94 Oxygen Delivery Method Room Air Positive well nourished, well developed and obese General Appearance ED: well developed and NAD Nutritional Appearance: obese HEENT Reports moist mucous membranes HEENT Narrative: No active epistaxis, no evidence of blood on either side although there is some irritation at the septum and a couple areas on the right, no posterior oropharyngeal blood. Negative for trauma Eyes PERRL and EOMs intact bilaterally Neck supple Chest Wall inspection of chest normal Chest Narrative: Point tenderness lateral aspect of the right chest wall/rib cage, there is a palpable rib restates exactly where the pain is, approximately rib #6 Resp normal respiratory effort and clear to auscultation bilaterally Resp Narrative: Equal breath sounds bilaterally GI normal to inspection, nondistended, normoactive bowel sounds and non-tender Back/Spine no CVA tenderness Cervical Spine: Negative for cervical spine tenderness Thoracic Spine / Upper Back: Negative for thoracic spinal tenderness Lumbar Spine / Lower Back: Negative for lumbar spinal tenderness Extremity normal to inspection Neuro oriented x3, CN's II-XII intact bilaterally and no sensory deficits noted Sensorium / Orientation: alert Motor Exam: strength 5/5 throughout Psych mental status grossly normal Skin no rashes or lesions noted and no wounds MDM MDM MDM Narrative Medical decision making narrative: 1 view chest x-ray obtained, and on my interpretation it shows no pneumothorax. Patient reassured he was offered analgesics including NSAIDs and he declines, with regards to his nosebleed there is no active bleeding no need for cauterization I do not obviously see the source, he was given appropriate discharge instructions regarding how to care for recurrent bleeding in the future. Discharge Plan Triage Chief Complaint: Chest Other ED Provider: Ruddy Spain Dx/Rx/DC Orders Clinical Impression: Rib pain on right side, Acute anterior epistaxis Instructions: ED Rib Fracture Prescriptions: No Action oxycodone-acetaminophen [oxycodone-acetaminophen] 5-325 mg tablet 1 tab PO Q6H PRN PRN (Reason: Pain) 3 Days Qty: 12 0RF Stand Alone Forms: ED Work / School Excuse Primary Care Provider: Koko Orantes Referrals: Koko Orantes, [facility] [Primary Care Provider] - As Needed Activity Restrictions/Additional Instructions: Get any rbev-gaa-edvmupt nasal decongestant spray containing oxymetazoline or phenylephrine. For moderate-severe nosebleed: 1 - gather supplies: nasal decongestant spray (above), cotton ball, box of tissues, garbage can, old towel that you can wrap around your chest/neck (to catch blood) 2 - soak a cotton ball in the nasal spray 3 - blow your nose, get all blood and clots out, keep chin down to prevent bloodfrom going back into throat and forming clots 4 - after blowing the last time, quickly spray 2 sprays of the nasal spray into the affected side and sniff it back, immediately followed by twisting the soakedcotton ball into the front of your nose and then hold pressure with your fingers. 5 - if bleeding controlled, leave cotton ball in place for at least 20 min before checking to see if the bleeding is controlled by removing the cotton ball. If not able to control bleeding, always welcome to return to the ER for help. Disposition Disposition: Home, Self Care What to do if you have Problems For any increased pain, shortness of breath, bleeding, nausea or vomiting, chestpain, or any unexpected problems, contact your Primary Care Provider. Call [facility] ([phone]) or report to the closest Emergency Room. Call 911 if necessary. 06/22/23 1130 <Electronically signed by Ruddy Spain MD> Cosigner Signature (if applicable): CC: [facility] Koko Orantes ~ Signed [facility] Work Phone: Discharge summary Author Marv Pack [facility] Note Date/Time July 02, 2024 5:5 1am [facility] Medical Records Department [address] [place] [address] Emergency Department Summary 07/02/24 MR#: [id number] Acct: [id number] Name: BARRETT LOPEZ Rep #:[id number] : 1975 49 From: Marv Pack DO PCP: ALCIRA COLBERT Status:REG ER Location: ED HPI History of Present Illness Chief Complaint: Abd Pain Informant: patient and spouse/S.O. Narrative Narrative: Patient is a 49-year-old male with past medical history of diverticulitis requiring colon resection around 2018 as well as hypertension and ulcers. He was seen roughly 1 week ago secondary to abdominal pain. At that time his x-rayrevealed no signs of perforation or obstruction and lab work showed mild elevation to his white count but the remainder of his labs are normal and after pain medication he had resolution of symptoms and was discharged home. Patient reports he was doing well and followed up with a general surgeon on an outpatient basis on Friday. Reportedly he received a steroid injection in the upper abdomen where he has had recurrent pain and was advised that he will schedule a EGD for further evaluation of his symptoms. He states this evening he got up to use the bathroom and after doing so developed increasing upper abdominal pain and a bout of vomiting. He states that the pain has not improvedsince its onset and secondary to this he comes in for evaluation [facility] Medical History History of stroke History of AR (myocardial infarction) Anxiety and depression Morbid obesity Hypertension Diverticulitis large intestine Home Medications ?Medication ?Instructions ?Recorded ?Last Taken ?Type ondansetron HCl 4 mg tablet 4 mg PO Q6H PRN nausea and vomiting 05/02/24 Unknown History sertraline 25 mg tablet 25 mg PO DAILY 05/02/2412/16 History pantoprazole 40 mg tablet,delayed 40 mg PO BID 30 days #60 tabs 05/03/24 Unknown Rx release (Protonix) sucralfate 1 gram tablet 1 g PO TIDAC 30 days #90 tab s 05/03/24 Unknown Rx docusate sodium 100 mg capsule 100 mg PO BID #60 caps 05/30/24 Unknown Rx (Colace) oxycodone-acetaminophen 5 mg-325 1 tab PO Q6H PRN PRN Pain 3 days 05/30/24 Unknown Rx mg tablet #12 TABLETS promethazine 25 mg tablet 25 mg PO Q6H PRN nausea and 05/30/24 Unknown Rx vomiting #10 tabs oxycodone 5 mg tablet 5 mg PO Q6H PRN pain 3 days #12 06/25/24 Unknown Rx tabs pantoprazole 40 mg tablet,delayed 40 mg PO DAILY 30 da ys #30 tabs 06/25/24 Unknown Rx release (Protonix) sucralfate 1 gram tablet (Carafate) 1 g PO TID 30 days #90 tabs 06/25/24 Unknown Rx omeprazole 40 mg capsule,delayed 40 mg PO BID 07/02/24 Unknown History release Allergy/AdvReac Type Severity Reaction Status Date / Time morphine Allergy Mild Rash Verified 07/02/24 03:18 acetaminophen (From Vicodin) Allergy Rash Verified 07/02/24 03:18 codeine Allergy Anaphylaxis Verified 07/02/24 03:18 hydrocodone bitartrate (From Allergy Rash Verified 07/02/24 03:18 Vicodin) latex Allergy Swelling Verified 07/02/24 03:18 naproxen Allergy Hives Verified 07/02/24 03:18 ondansetron (From Zofran (as AdvReac Nausea Verified 07/02/24 03:18 hydrochloride)) Family History Mother Cancer Father Brain aneurysm Surgical History History of bowel resection Hx of hand surgery Hx of foot surgery Hx of arthroscopy of right knee History of tonsillectomy and adenoidectomy Hx of cholecystectomy Hx of appendectomy Social History household members: spouse Smoking Status: Never smoker alcohol intake: never substance use type: does not use ROS ROS ED Constitutional Constitutional ED: Denies chills or fever(s) Eyes Eyes: Denies change in vision ENT ENT ED: Denies sore throat Cardiovascular Cardiovascular: Denies chest pain Respiratory/Chest Respiratory/Chest: Denies cough or dyspnea Gastrointestinal Gastrointestinal: Reports abdominal pain, nausea and vomiting; Denies diarrhea Genitourinary Genitourinary ED: Denies dysuria Musculoskeletal Musculoskeletal: Denies back pain Integumentary Denies rash Neurologic Neurologic: Denies headache(s) Hematologic/Lymphatic Hematologic/Lymphatic: Denies easy bleeding or easy bruising EXAM Physical Exam Const Vital Signs: 07/02/24 03:15 07/02/24 05:14 Temperature 98.0 F Temperature Source Oral Pulse Rate 109 H 99 Respiratory Rate 20 H 18 Blood Pressure 127/100 H 128/68 H Blood Pressure Mean 109 88 Pulse Ox 98 95 Oxygen Delivery Method Room Air Room Air Positive well nourished, well developed and obese General Appearance ED: well developed; Negative for pallor Nutritional Appearance: obese HEENT Reports moist mucous membranes HEENT Narrative: No tongue or lip swelling no oral lesions no airway edema or compromise Eyes PERRL and EOMs intact bilaterally General Eye ED: Negative for scleral icterus Neck supple Resp normal respiratory effort and clear to auscultation bilaterally Cardio regular rhythm Rate: tachycardic and other Other Details: Slightly tachycardic rate with regular rhythm Radial and carotid pulses are equal and symmetric GI GI Narrative: Abdomen is soft but slightly distended. Bowel sounds are hypoactive. There is pain with palpation diffusely but greatest in the midepigastric to left upper quadrant region. No increased tympany. No pulsatile mass. No fluid wave. Patient does have a known umbilical hernia but it feels reducible in nature. Auscultation: hypoactive bowel sounds Palpation: soft Back/Spine no CVA tenderness Extremity normal to inspection Neuro oriented x3, CN's II-XII intact bilaterally and no sensory deficits noted Sensorium / Orientation: alert Motor Exam: strength 5/5 throughout Psych Mood & Affect: anxious Skin no rashes or lesions noted and no wounds General Skin Exam: Negative for jaundice or pallor MDM MDM MDM Narrative Medical decision making narrative: Patient arrived to the ER hypertensive and slightly tachycardic but afebrile. He was seen 1 week ago for similar symptoms and workup revealed no obvious findings. He also reports he was just seen by the general surgeon on Friday and is reportedly being set up for a EGD to further assess the cause of his recurrent belly pain. With the return of pain in the midepigastric to left upper quadrant region there is concern for gastritis versus gastric perforation versus colitis versus pancreatitis versus incarcerated hernia versus obstruction. The skin exam did not show any erythema or warmth or signs of cellulitis or abscess. With concern for underlying intestinal pathology basic blood work and with an acute abdominal series x-ray was obtained. X-ray revealed no signs of obstruction or perforation. Patient's blood work revealed leukocytosis at 16 which is elevated from the previous week and he also has leftshift with his absolute neutrophil count elevated at 11. Based on the increasedwhite blood cell count and left shift I did elect to perform a CT scan and add alactic acid and procalcitonin values to check for systemic infection. The patient CT scan revealed no signs of perforation or obstruction but did note changes along the sigmoid colon concerning for diverticulitis. Secondary to this he was started on Zosyn. He has received IV Protonix as well as IV Reglan to cover for potential gastritis/ulcer versus gastroparesis and these medications did minimal for pain relief. He was then medicated with IV Dilaudidas well as IV fentanyl. After receiving these medications he did have improvement of his pain and with this his vitals improved. However he still reported significant pain on repeat evaluation. As the patient is not hypotensive tachycardic or febrile and his lactic acid is normal he does not qualify as sepsis and without abscess or perforation this is uncomplicated diverticulitis. However because of the recurrent nature of his symptoms and thefact he has had previous colonic resection and is complaining of persistent painI do not feel that he would do well at home on oral antibiotics. Therefore discussed the case with the hospitalist who agrees to accept the patient for continued pain control and IV antibiotics. This plan of care was discussed withthe patient who is agreeable to it and therefore he will be admitted for furthercare History & Record Review Discussion w/independent historian: Patient and Significant other Lab Data Attestation: I reviewed the patient's lab results. Labs: Laboratory Results - last 24 hr 07/02/24 07/02/24 03:40 04:41 WBC 16.3 H RBC 5.11 Hgb 13.8 Hct 41.7 MCV 81.6 MCH 27.0 MCHC 33.1 RDW Std Deviation 39.8 RDW Coeff of Mirlande 13.4 Plt Count 375 MPV 9.4 Immature Gran % (Auto) 0.500 Neut % (Auto) 67.3 Lymph % (Auto) 23.7 [place] % (Auto) 6.3 Eos % (Auto) 1.7 Baso % (Auto) 0.5 Absolute Neuts (auto) 11.0 H Absolute Lymphs (auto) 3.86 Nucleated RBC % 0 Sodium 138 Potassium 3.9 Chloride 99 Carbon Dioxide 24.7 Anion Gap 14 BUN 17 Creatinine 0.97 Estim Creat Clear Calc 132.98 Est GFR (MDRD) Non-Af 97 BUN/Creatinine Ratio 17.0 Glucose 99 Lactic Acid 1.2 Calcium 9.1 Total Bilirubin 0.40 Direct Bilirubin 0.19 AST 18 ALT 23 Alkaline Phosphatase 122 Total Protein 7.7 Albumin 4.1 Globulin 3.5 Lipase 21 Radiography Diagnostic Testing: Clinical Impression(s) from Imaging Studies Acute Abdomen Series 07/02/24 03:50 IMPRESSION: Nonobstructive bowel gas pattern Reading Location: [facility] Abdomen/Pelvis CT 07/02/24 04:36 IMPRESSION: *Acute sigmoid colon diverticulitis. *Small fat containing periumbilical hernia. Reading Location: [facility] Acute abdominal series with 1 view chest as interpreted by the emergency medicine physician reveals a nonobstructive nonspecific bowel gas pattern without free air to suggest perforation and chest x-ray component reveals no acute infiltrate Management Discussion w/another healthcare provider: Hospitalist Discharge Plan Triage Chief Complaint: Abd Pain ED Provider: Marv Pack Dx/Rx/DC Orders Clinical Impression: Sigmoid diverticulitis, Hypertension, Morbid obesity, Intractable abdominal pain Prescriptions: No Action sucralfate [Carafate] 1 gram tablet 1 g PO TID 30 Days Qty: 90 0RF pantoprazole [Protonix] 40 mg tablet,delayed release (DR/EC) 40 mg PO DAILY 30 Days Qty: 30 0RF oxycodone 5 mg tablet 5 mg PO Q6H PRN (Reason: pain) 3 Days Qty: 12 0RF omeprazole 40 mg capsule,delayed release(DR/EC) 40 mg PO BID ondansetron HCl 4 mg tablet 4 mg PO Q6H PRN (Reason: nausea and vomiting) Patient Comments: [NO ORIGINAL SIG] sertraline 25 mg tablet 25 mg PO DAILY sucralfate 1 gram Tablet 1 g PO TIDAC 30 Days Qty: 90 0RF pantoprazole [Protonix] 40 mg tablet,delayed release (DR/EC) 40 mg PO BID 30 Days Qty: 60 3RF oxycodone-acetaminophen 5-325 mg tablet 1 tab PO Q6H PRN PRN (Reason: Pain) 3 Days Qty: 12 0RF docusate sodium [Colace] 100 mg capsule 100 mg PO BID Qty: 60 0RF promethazine 25 mg tablet 25 mg PO Q6H PRN (Reason: nausea and vomiting) Qty: 10 0RF Primary Care Provider: EILEEN COONEY Referrals: EILEEN COONEY CRNP [Primary Care Provider] - Print Language: Kuwaiti Disposition Disposition: Acute Care Hospital [facility] What to do if you have Problems For any increased pain, shortness of breath, bleeding, nausea or vomiting, chestpain, or any unexpected problems, contact your Primary Care Provider. Call [facility] ([phone]) or report to the closest Emergency Room. Call 911 if necessary. 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 Location:[facility] Appointment Type:[facility] Evaluation note* Diagnosis Onset Date Resolution Status TIA (transient ischemic attack) acute [facility] Work Phone: Evaluation note* Diagnosis Onset Date Resolution Status TIA (transient ischemic attack) resolved [facility] Work Phone: Evaluation note* Diagnosis Strain of left biceps, initial encounter- Primary Medial epicondylitis of left elbow Medial epicondylitis of elbow Contusion of bone Contusion of unspecified site Sprain of ulnar collateral ligament of left elbow, initial encounter [facility] [place] [facility] Diagnosis Pain Generalized pain [facility] Diagnosis Strain of left biceps, initial encounter Medial epicondylitis of left elbow Medial epicondylitis of elbow Contusion of bone Contusion of unspecified site documented in this encounter [facility]No assessment information [facility] Work Phone: Evaluation note* Diagnosis Constipation, unspecified constipation type- Primary Abdominal pain, unspecified abdominal location documented in this encounter [facility] note* Diagnosis Generalized abdominal pain- Primary Abdominal pain, generalized Constipation, unspecified constipation type Abdominal pain, unspecified abdominal location Obesity, Class III, BMI >= 40 Morbid obesity documented in this encounter [facility] note* Diagnosis Chest wall contusion, right, initial encounter- Primary documented in this encounter [facility] note* Diagnosis Contusion of right back wall of thorax, initial encounter- Primary Fracture of one rib, right side, initial encounter for closed fracture documented in this encounter [facility] note* Diagnosis Anal fissure- Primary Gastroesophageal reflux disease with esophagitis without hemorrhage Obesity, Class III, BMI 40-49.9 (morbid obesity) (HCC) Morbid obesity documented in this encounter [facility] note* Diagnosis Pain- Primary Generalized pain documented in this encounter [facility] note* Diagnosis Chest wall contusion, right, initial encounter documented in this encounter [facility] note* Diagnosis Chronic RLQ pain- Primary Abdominal pain, right lower quadrant BRBPR (bright red blood per rectum) Hemorrhage of rectum and anus Chronic RUQ pain Abdominal pain, right upper quadrant Epigastric pain Abdominal pain, epigastric Gastroesophageal reflux disease without esophagitis Esophageal reflux documented in this encounter [facility] note* Diagnosis Chronic RLQ pain Abdominal pain, right lower quadrant BRBPR (bright red blood per rectum) Hemorrhage of rectum and anus Chronic RUQ pain Abdominal pain, right upper quadrant Epigastric pain Abdominal pain, epigastric Gastroesophageal reflux disease without esophagitis Esophageal reflux documented in this encounter [facility] note* Diagnosis Gastroesophageal reflux disease without esophagitis- Primary Esophageal reflux Anal fissure documented in this encounter [facility] note* Diagnosis Chronic RLQ pain- Primary Abdominal pain, right lower quadrant documented in this encounter [facility] note* Diagnosis Lesion of left ulnar nerve- Primary Lesion of ulnar nerve Elbow pain, chronic, left [facility] Diagnosis Lesion of left ulnar nerve- Primary Lesion of ulnar nerve [facility] Diagnosis Lesion of left ulnar nerve Lesion of ulnar nerve Elbow pain, chronic, left [facility] Diagnosis Lesion of left ulnar nerve- Primary Lesion of ulnar nerve [facility] Diagnosis BRBPR (bright red blood per rectum)- Primary Hemorrhage of rectum and anus Chronic RLQ pain Abdominal pain, right lower quadrant [facility]* Diagnosis Lesion of left ulnar nerve- Primary Lesion of ulnar nerve Left elbow pain Pain in joint, upper arm [facility] Diagnosis Left upper quadrant pain- Primary Abdominal pain, left upper quadrant [facility]* Diagnosis Diverticulitis- Primary Diverticulitis of colon (without mention of hemorrhage) RLQ discomfort Abdominal pain, right lower quadrant [facility] Author Vic Cosme [facility] Note Date/Time July 02, 2024 6:3 7am [facility] Medical Records Department [address] [place] [address] H&P Exam - Hospitalist 07/02/24 0533 MR#: [id number] Acct: [id number] Name: BARRETT LOPEZ Rep #:[id number] : 1975 49 From: Vic Dotson DO PCP: ALCIRA COLBERT Status:REG ER Location: ED HPI - General General Date of Admission: 07/02/24 Date of Service: 07/02/24 Chief Complaint: Abdominal Pain with Nausea and Vomiting. HPI Narrative BARRETT LOPEZ, is a 49 M with a past medical history of essential hypertension; currently not on treatment, super-morbid obesity; with BMI of 52 this admission,history of AR, history of CVA, GERD; with history of gastritis and PUD on pantoprazole BID and sucralfate TID followed by Dr. White of gastroenterology, history of mesenteric adenitis, history of diverticulitis; s/p partial bowel resection (~2019), history of cholecystectomy, history of appendectomy, history of foot surgery, history of hand surgery, depression with anxiety; on sertralineand OA; with history of MCL sprain of the Right knee; s/p arthroscopy plus chronic back pain who presents to [facility] ER complaining of abdominal pain, nausea and vomiting. Mr. Lopez reports his symptoms began approximately 1 week prior to admission witha gradual-onset of increasingly intense, sharp, stabbing intermittently severe abdominal pain that is mainly focused in his mid epigastric area and LUQ with subsequent nausea and 1 episode of bilious emesis. He actually came to the ER on June 25, 2024 and was worked up with abdominal x-rays revealing no acute pathologic changes with mild Leukocytosis of 13K and otherwise unremarkable laboratory studies and he was discharged home to follow-up with his primary carephysician. He returns tonight complaining of worsening of his previous symptoms. He denies associated fever, chills, changes in vision, runny nose, sore throat, chest pain, shortness of breath, dysuria, hematuria, arthralgias, myalgias, headache or rash. In the ER he was noted to have leukocytosis of 16.3K present on admission with corresponding CT evidence of Acute Sigmoid Diverticulitis along with an incidentally noted small fat-containing periumbilical hernia and he was then admitted to the general medical floor for ongoing care for a stay that is expected to extend beyond 2 midnights. [facility] Medical History (Updated 07/02/24 @ 06:[address] Vic Mercado, ) History of stroke History of AR (myocardial infarction) Anxiety and depression Morbid obesity Hypertension Diverticulitis large intestine Home Medications ?Medication ?Instructions ?Recorded ?Last Taken ?Type ondansetron HCl 4 mg tablet 4 mg PO Q6H PRN nausea and vomiting 05/02/24 Unknown History sertraline 25 mg tablet 25 mg PO DAILY 05/02/2412/16 History pantoprazole 40 mg tablet,delayed 40 mg PO BID 30 days #60 tabs 05/03/24 Unknown Rx release (Protonix) sucralfate 1 gram tablet 1 g PO TIDAC 30 days #90 tab s 05/03/24 Unknown Rx docusate sodium 100 mg capsule 100 mg PO BID #60 caps 05/30/24 Unknown Rx (Colace) oxycodone-acetaminophen 5 mg-325 1 tab PO Q6H PRN PRN Pain 3 days 05/30/24 Unknown Rx mg tablet #12 TABLETS promethazine 25 mg tablet 25 mg PO Q6H PRN nausea and 05/30/24 Unknown Rx vomiting #10 tabs oxycodone 5 mg tablet 5 mg PO Q6H PRN pain 3 days #12 06/25/24 Unknown Rx tabs pantoprazole 40 mg tablet,delayed 40 mg PO DAILY 30 da ys #30 tabs 06/25/24 Unknown Rx release (Protonix) sucralfate 1 gram tablet (Carafate) 1 g PO TID 30 days #90 tabs 06/25/24 Unknown Rx omeprazole 40 mg capsule,delayed 40 mg PO BID 07/02/24 Unknown History release Allergy/AdvReac Type Severity Reaction Status Date / Time morphine Allergy Mild Rash Verified 07/02/24 03:18 acetaminophen (From Vicodin) Allergy Rash Verified 07/02/24 03:18 codeine Allergy Anaphylaxis Verified 07/02/24 03:18 hydrocodone bitartrate (From Allergy Rash Verified 07/02/24 03:18 Vicodin) latex Allergy Swelling Verified 07/02/24 03:18 naproxen Allergy Hives Verified 07/02/24 03:18 ondansetron (From Zofran (as AdvReac Nausea Verified 07/02/24 03:18 hydrochloride)) Family History Mother Cancer Father Brain aneurysm Surgical History (Updated 07/02/24 @ 06:[address] Vic Mercado DO) History of bowel resection Hx of hand surgery Hx of foot surgery Hx of arthroscopy of right knee History of tonsillectomy and adenoidectomy Hx of cholecystectomy Hx of appendectomy Social History household members: spouse Smoking Status: Never smoker alcohol intake: never substance use type: does not use ROS ROS Narrative Review of Systems: Constitutional: Patient denies fever or chills. Eyes: Patient denies change in vision or discharge from eyes. ENT: Patient denies runny nose, sore throat or ear pain. Resp: Patient denies shortness of breath or cough. CV: Patient denies chest pain, palpitations, heart racing or lower extremity edema. GI: Patient admits to abdominal pain with nausea, vomiting and bilious emesis asper HPI. He denies diarrhea. : Patient denies dysuria, hematuria or urinary frequency. MSK: Patient denies arthralgias or myalgias. Skin: Patient denies rash, abscess, wounds or jaundice. Psych: Patient denies symptoms of uncontrolled depression or anxiety. Neuro: Patient denies headache, paresthesias or focal neurologic deficits. Allergy: Patient denies lip swelling, tongue swelling or urticaria. Hematology: Patient denies easy bleeding or easy bruisability. Endocrinology: Patient denies polyuria, polydipsia, polyphagia or heat/cold intolerance. 14 point ROS otherwise negative except for positives noted above in HPI. Vital Signs Vital Signs Vital Signs: 07/02/24 03:15 07/02/24 05:14 Temperature 98.0 F Temperature Source Oral Pulse Rate 109 H 99 Respiratory Rate 20 H 18 Blood Pressure 127/100 H 128/68 H Blood Pressure Mean 109 88 Pulse Ox 98 95 Oxygen Delivery Method Room Air Room Air Weight Weight: 331 lb 12.731 oz Body Mass Index (BMI) 52.0 Physical Exam Const alert and oriented x3 Constitutional Narrative: Mild distress noted and morbidly obese patient. General Appearance: cooperative HEENT normocephalic, head/scalp atraumatic and hearing grossly normal bilaterally HEENT Narrative: Mucous membranes dry. Eyes PERRL and EOMs intact bilaterally Neck no lymphadenopathy and supple Resp normal respiratory effort, no retractions, no use of accessory muscles and clearto auscultation bilaterally Cardio regular rate and regular rhythm GI normal to inspection, nondistended, normoactive bowel sounds and soft to palpation GI Narrative: Patient noted to be tender in epigastrium and Left-side of his abdomen with no guarding or rebound. Auscultation: hypoactive bowel sounds Extremity normal to inspection, full ROM and no clubbing, cyanosis or edema Skin Skin Narrative: Patient has evidence of rash, abscess, wounds or jaundice. Neuro oriented x3, CN's II-XII intact bilaterally, moves all extremities and no focal motor deficits Sensorium / Orientation: awake, alert, oriented to person, oriented to place andoriented to time Speech: speech normal Psych affect normal Results Medical Records Data Attestation: I reviewed the patient's medical records Lab / Micro Data Attestation: I reviewed the patient's lab results. 07/02/24 03:40 07/02/24 03:40 Labs: Laboratory Results - last 24 hr 07/02/24 03:40: WBC 16.3 H, RBC 5.11, Hgb 13.8, Hct 41.7, MCV 81.6, MCH 27.0, MCHC 33.1, RDW Std Deviation 39.8, RDW Coeff of Mirlande 13.4, Plt Count 375, MPV 9.4, Immature Gran % (Auto) 0.500, Neut % (Auto) 67.3, Lymph % (Auto) 23.7, [place]% (Auto) 6.3, Eos % (Auto) 1.7, Baso % (Auto) 0.5, Absolute Neuts (auto) 11.0 H,Absolute Lymphs (auto) 3.86, Nucleated RBC % 0, Sodium 138, Potassium 3.9, Chloride 99, Carbon Dioxide 24.7, Anion Gap 14, BUN 17, Creatinine 0.97, Estim Creat Clear Calc 132.98, Est GFR (MDRD) Non-Af 97, BUN/Creatinine Ratio 17.0, Glucose 99, Calcium 9.1, Total Bilirubin 0.40, Direct Bilirubin 0.19, AST 18, ALT 23, Alkaline Phosphatase 122, Total Protein 7.7, Albumin 4.1, Globulin 3.5, Lipase 21 07/02/24 04:41: Lactic Acid 1.2 Imaging Radiology Impression Acute Abdomen Series 07/02/24 03:50 IMPRESSION: Nonobstructive bowel gas pattern Reading Location: [facility] Abdomen/Pelvis CT 07/02/24 04:36 IMPRESSION: *Acute sigmoid colon diverticulitis. *Small fat containing periumbilical hernia. Reading Location: [facility] Assessment & Plan Assessment/Plan (1) Sigmoid diverticulitis: (2) Intractable abdominal pain: (3) Nausea and vomiting: QUALIFIERS: Vomiting type: unspecified Qualified Code(s): R11.2 -Nausea with vomiting, unspecified (4) Periumbilical hernia: (5) History of diverticulitis: (6) History of bowel resection: (7) GERD (gastroesophageal reflux disease): QUALIFIERS: Esophagitis presence: esophagitis presence not specified Qualified Code(s): K21.9 - Gastro-esophageal reflux disease without esophagitis (8) Morbid obesity with BMI of 50.0-59.9, adult: PLAN: Plan 1. CT evidence of Acute Sigmoid Diverticulitis with Leukocytosis of 16.3 K present on admission with severe Abdominal Pain, Nausea, Vomiting with bilious emesis - Admit to general medical floor. Continue empiric IV piperacillin-tazobactam begun in ER. Keep n.p.o. and resume IV pantoprazole for GI prophylaxis. Give IV metoclopramide 3 times daily for nausea and vomiting givenpatient's listed allergy to ondansetron. Place scopolamine patch 1.5 mg topicalevery 72 hours. Give ketorolac IV as needed for nklb-ap-iethireb (level 1-5/10)pain or fever given patient's listed allergy to acetaminophen. Give IV hydromorphone as needed for severe (level 6-10/10) pain. 2. Small fat-containing periumbilical hernia incidentally noted on CT this admission complicating #1 - Stable with no need for surgical intervention at this time. 3. History of diverticulitis; s/p partial bowel resection (~2019) compounding #1 & #2 - Noted. 4. GERD; with history of gastritis and PUD on pantoprazole BID and sucralfate TID followed by Dr. White of gastroenterology adding to the medical complexity of #1 - #3 - Continue IV pantoprazole as outlined in #1. Patient will likely need outpatient consultation with EGD after he completes treatment this admission. 5. Super-morbid obesity; with BMI of 52 this admission adding to the burden of disease outlined from #1 - #4 - Weight loss will be recommended. Check TSH. This complicates his case and may hamper recovery. 6. Essential hypertension; currently not on treatment - Give hydralazine IV as needed for systolic blood pressure greater than 160 mmHg. 7. History of AR - Patient reported and noted. 8. History of CVA - Noted with no signs of any residual deficits. 9. History of mesenteric adenitis - Noted. 10. History of cholecystectomy - Noted. 11. History of appendectomy - Noted. 12. History of foot surgery - Noted. 13. History of hand surgery - Noted. 14. Depression with anxiety; on sertraline - Maintain current regimen. 15. OA; with history of MCL sprain of the Right knee; s/p arthroscopy plus chronic back pain - We we will follow pain regimen and scale as outlined in #1. 16. DVT prophylaxis - Enoxaparin 40 mg SQ twice daily plus SCD's. Total time: Approximately (but not less than) 75 minutes. Charges/Coding Visit Charges Inpatient E&M: 72102 Init Hosp L3 07/02/24 0637 <Electronically signed by Vic Mercado DO> Cosigner Signature (if applicable): CC: Dr. Vic Mercado DO; ALCIRA COLBERT~ Signed [facility] Work Phone: Hospital course Narrative No data available for this section [facility] Hospital Discharge instructions No data available for this section [facility] instructions[facility] Work Phone: Hospital Discharge instructions Additional Instructions X-ray of your left forearm and hand are negative. Call Dr. Ochoa for follow-up as she have a plan MRI of your left upper extremity. Use ibuprofen as prescribed.[facility] Work Phone: Hospital Discharge instructions Additional Instructions Get any dupc-oju-tbrgptr nasal decongestant spray containing oxymetazoline or phenylephrine. For moderate-severe nosebleed: 1 - gather supplies: nasal decongestant spray (above), cotton ball, box of tissues, garbage can, old towel that you can wrap around your chest/neck (to catch blood) 2 - soak a cotton ball in the nasal spray 3 - blow your nose, get all blood and clots out, keep chin down to prevent blood from going back into throat and forming clots 4 - after blowing the last time, quickly spray 2 sprays of the nasal spray into the affected side and sniff it back, immediately followed by twisting the soaked cotton ball into the front of your nose and then hold pressure with your fingers. 5 - if bleeding controlled, leave cotton ball in place for at least 20 min before checking to see if the bleeding is controlled by removing the cotton ball. If not able to control bleeding, always welcome to return to the ER for help. [facility] Work Phone: Hospital Discharge instructions Additional Instructions Your CT concerns for nondisplaced right anterior rib fracture seen by myself. Use incentive spirometer. Take pain medicine as prescribed. Stool softeners to avoid constipation. X-ray negative for pneumonia. Follow-up with your doctor for continued refills if needed for pain control. Continue your pantoprazole and finish your Carafate. Monitor for any black or bloody stools.[facility] Work Phone: Hospital Discharge instructions Additional Instructions Please take the prescribed medication as directed to help control your symptoms and return to the ER should you have any further concernsW[facility] Work Phone: Hospital Discharge instructions Additional Instructions You have recurrent diverticulitis, but, fortunately, uncomplicated. Take antibiotics as instructed. Do not drink alcohol while on the antibiotics as it may induce vomiting. Return to the ED if you are feeling worse.[facility] Work Phone: Hospital Discharge instructions Additional Instructions Return back to the ED if symptoms change or worsen. Follow-up with general surgery, Dr. Patel. Take all of your antibiotics.[facility] Work Phone: Hospital Discharge instructions Additional Instructions Follow-up with your PCP and return for any other concerns or worsening symptoms. [facility] Work Phone: Hospital Discharge instructions Additional Instructions Thank you for trusting us with your care today! Your labs and images are reassuring. Specifically no sign of an acute surgical or life-threatening process in your abdomen. The cause your pain is uncertain however it is unlikely be life-threatening given your reassuring labs and images. Please take Tylenol (2 pills, 650 mg), ibuprofen (2 pills, 400 mg) every 6 hours as needed for pain and fever control. Please return to the emergency department if your symptoms change or worsen. Please follow with your primary care physician and gastroenterology for further outpatient evaluation and management.[facility] Work Phone: Note* NIKKI ROSA MD: SIGN, VERIFY Event Display: EKG [ED AOH] - CV Authored Date: [facility] Note* VICTOR M WALTON MD: SIGN, VERIFY Event Display: EKG [ED AOH] - CV Authored Date: [id number] [facility] Note* LAKHWINDER BERNAL MD: SIGN, VERIFY Event Display: EKG [ED AOH] - CV Authored Date: [facility] Progress note No data available for this section [facility] Reason for referral (narrative)* Diagnostic Procedure Only (Routine) - Closed Specialty Diagnoses / Procedures Referred By Contac t Referred To Contact XR IMAGING Diagnoses Pain Procedures XR ELBOW SPECIAL VIEWS AP/LAT/OTHER LEFT RADEX ELBOW COMPLETE MINIMUM 3 VIEWS Deandra Ochoa DO [address] [place] [address] Xr Imaging Referral ID Status Reason Start Date Expiration Date V isits Requested Visits Authorized [id number] Closed Auto-Generate d Referral 11/14/2021 12/14/2022 1 1 [facility] for referral (narrative)* Outpatient Procedure (Routine) - Pending Review Specialty Diagnoses / Procedures Referred By Contac t Referred To Contact [facility] Diagnoses Constipation, unspecified constipation type Abdominal pain, unspecified abdominal location Procedures COLONOSCOPY DIAGNOSTIC COLONOSCOPY FLX DX W/COLLJ SPEC WHEN Guerline Viera MD [address] [place] [address] [facility] [address] [place] [address] Referral ID Status Reason Start Date Expiration Date Visits Requested Visits Authorized [id number] Pending Review Auto-Generat ed Referral 11/22/2022 11/23/2023 1 1 * Outpatient Procedure (Routine) - Pending Review Specialty Diagnoses / Procedures Referred By Nanette polo Referred To Contact [facility] Diagnoses Constipation, unspecified constipation type Abdominal pain, unspecified abdominal location Procedures EGD DIAGNOSTIC ESOPHAGOGASTRODUODENOSCO PY TRANSORAL DIAGNOSTIC Guerline Andersen MD [address] [place] [address] [facility] [address] [place] [address] Referral ID Status Reason Start Date Expiration Date Visits Requested Visits Authorized [id number] Pending Review Auto-Generat ed Referral 11/22/2022 11/23/2023 1 1 [facility] for referral (narrative)* Outpatient Procedure (Routine) - Closed Specialty Diagnoses / Procedures Referred By Nanette polo Referred To Contact [facility] Diagnoses Constipation, unspecified constipation type Abdominal pain, unspecified abdominal location Procedures COLONOSCOPY DIAGNOSTIC COLONOSCOPY FLX DX W/COLLJ SPEC WHEN PFRMD Guerline Andersen MD [address] [place] [address] [facility] [address] [place] [address] Referral ID Status Reason Start Date Expiration Date V isits Requested Visits Authorized [id number] Closed Auto-Generat ed Referral Patient Cleared - Admin/Chairm an/Director advise to proceed or did not respond 11/26/2022 03/23/2023 1 1 * Outpatient Procedure (Routine) - Closed Specialty Diagnoses / Procedures Referred By Nanette polo Referred To Contact [facility] Diagnoses Constipation, unspecified constipation type Abdominal pain, unspecified abdominal location Procedures EGD DIAGNOSTIC ESOPHAGOGASTRODUODENOSCOPY TRANSORAL DIAGNOSTIC Guerline Andersen MD [address] [place] [address] [facility] [address] [place] [address] Referral ID Status Reason Start Date Expiration Date V isits Requested Visits Authorized [id number] Closed Auto-Generat ed Referral Patient Cleared - Admin/Chairm an/Director advise to proceed or did not respond 11/26/2022 03/23/2023 1 1 [facility] for referral (narrative)* Diagnostic Procedure Only (Routine) - Closed Specialty Diagnoses / Procedures Referred By Contac t Referred To Contact XR IMAGING Diagnoses Chest wall contusion, right, initial encounter Procedures XR RIBS/CHEST 3V AP RIB/OBLS/CXR RIGHT RADEX RIBS UNI W/POSTEROANT CH MINIMUM [place] [address] [place] [address] [id number] Referral ID Status Reason Start Date Expiration Date V isits Requested Visits Authorized [id number] Closed Auto-Generate d Referral 06/11/2023 07/10/2024 1 1 [facility] for referral (narrative)* Diagnostic Procedure Only (Routine) - Closed Specialty Diagnoses / Procedures Referred By Contac t Referred To Contact XR IMAGING Diagnoses Chest wall contusion, right, initial encounter Procedures XR RIBS/CHEST 3V AP RIB/OBLS/CXR RIGHT RADEX RIBS UNI W/POSTEROANT CH MINIMUM 3 VIEWS Vic Samano, DO [address] [place] [address] [place] [address] Referral ID Status Reason Start Date Expiration Date V isits Requested Visits Authorized [id number] Closed Auto-Generate d Referral 06/11/2023 07/10/2024 1 1 [facility] for referral (narrative)* Outpatient Procedure (Routine) - Pending Review Specialty Diagnoses / Procedures Referred By Contac t Referred To Contact [facility] Diagnoses Chronic RUQ pain Epigastric pain Gastroesophageal reflux disease without esophagitis Procedures EGD DIAGNOSTIC ESOPHAGOGASTRODUODENOSC OPY TRANSORAL DIAGNOSTIC Asia Salgado APRN.TELEVISION CABINET FINISHER [address] [place] [address] [address] Referral ID Status Reason Start Date Expiration Date Visits Requested Visits Authorized [id number] Pending Review Auto-Generat ed Referral 12/05/2023 12/04/2024 1 1 * Outpatient Procedure (Routine) - Pending Review Specialty Diagnoses / Procedures Referred By Contac t Referred To Contact [facility] Diagnoses Chronic RLQ pain BRBPR (bright red blood per rectum) Procedures COLONOSCOPY DIAGNOSTIC COLONOSCOPY FLX DX W/COLLJ SPEC WHEN PFRMAsia Graves APRN.TELEVISION CABINET FINISHER [address] [place] [address] [facility] [address] [address] Referral ID Status Reason Start Date Expiration Date Visits Requested Visits Authorized [id number] Pending Review Auto-Generat ed Referral 12/05/2023 12/04/2024 1 1 [facility] for referral (narrative)* Outpatient Procedure (Routine) - Closed Specialty Diagnoses / Procedures Referred By Contac t Referred To Contact [facility] Diagnoses Chronic RUQ pain Epigastric pain Gastroesophageal reflux disease without esophagitis Procedures EGD DIAGNOSTIC ESOPHAGOGASTRODUODENOSCOPY TRANSORAL Asia Bunch APRN.TELEVISION CABINET FINISHER [address] [place] [address] [facility] [address] [place] [address] Referral ID Status Reason Start Date Expiration Date V isits Requested Visits Authorized [id number] Closed Auto-Generate d Referral 12/08/2023 12/04/2024 1 1 * Outpatient Procedure (Routine) - Closed Specialty Diagnoses / Procedures Referred By Contac t Referred To Contact [facility] Diagnoses Chronic RLQ pain BRBPR (bright red blood per rectum) Procedures COLONOSCOPY DIAGNOSTIC COLONOSCOPY FLX DX W/COLLJ SPEC WHEN Asia Swift APRN.TELEVISION CABINET FINISHER [address] [place] [address] [facility] [address] [place] [address] Referral ID Status Reason Start Date Expiration Date V isits Requested Visits Authorized [id number] Closed Auto-Generate d Referral 12/08/2023 12/04/2024 1 1 [facility] for referral (narrative)* Outpatient Procedure (Routine) - Pending Review Specialty Diagnoses / Procedures Referred By Contac t Referred To Contact [facility] Diagnoses Chronic RLQ pain Procedures COLONOSCOPY DIAGNOSTIC COLONOSCOPY FLX DX W/COLLJ SPEC WHEN Asia Swift APRN.TELEVISION CABINET FINISHER [address] [place] [address] [facility] [address] [place] [address] Referral ID Status Reason Start Date Expiration Date Visits Requested Visits Authorized [id number] Pending Review Auto-Generat ed Referral 03/03/2025 1 1 [facility] for referral (narrative)* Outpatient Procedure (Routine) - Authorized Specialty Diagnoses / Procedures Referred By Contac t Referred To [facility] Diagnoses Lesion of left ulnar nerve Procedures EMG(NEURO/NI) NERVE CONDUCTION STUDIES 9-10 STUDIES Deandra Ochoa, [address] [place] [address] [address] Referral ID Status Reason Start Date Expiration Date Visits Requested Visits Authorized [id number] Authorized Auto-Generat ed Referral 04/09/2024 04/09/2025 1 1 [facility] for referral (narrative)* Outpatient Procedure (Routine) - Closed Specialty Diagnoses / Procedures Referred By Contac t Referred To Contact [facility] Diagnoses Chronic RLQ pain Procedures COLONOSCOPY DIAGNOSTIC COLONOSCOPY FLX DX W/COLLJ SPEC WHEN Asia Swift APRN.TELEVISION CABINET FINISHER [address] [place] [address] [facility] [place] [id number] Referral ID Status Reason Start Date Expiration Date V isits Requested Visits Authorized [id number] Closed Auto-Generate d Referral 04/21/2024 05/21/2024 1 1 [facility] for referral (narrative)No reason for referral information availableWKettering [facility] Work Phone: Reason for visit Narrative* Diagnostic Procedure Only (Routine) - Closed Specialty Diagnoses / Procedures Referred By Contac t Referred To Contact XR IMAGING Diagnoses Pain Procedures XR ELBOW SPECIAL VIEWS AP/LAT/OTHER LEFT RADEX ELBOW COMPLETE MINIMUM 3 VIEWS Deandra Ochoa DO [address] [place] [address] Xr Imaging Referral ID Status Reason Start Date Expiration Date V isits Requested Visits Authorized [id number] Closed Auto-Generate d Referral 11/14/2021 12/14/2022 1 1 [facility] for visit Narrative* Outpatient Procedure (Routine) - Closed Specialty Diagnoses / Procedures Referred By Contac t Referred To Contact [facility] Diagnoses Constipation, unspecified constipation type Abdominal pain, unspecified abdominal location Procedures COLONOSCOPY DIAGNOSTIC COLONOSCOPY FLX DX W/COLLJ SPEC WHEN Guerline Viera MD [address] [place] [address] [facility] [address] [place] [address] Referral ID Status Reason Start Date Expiration Date V isits Requested Visits Authorized [id number] Closed Auto-Generat ed Referral Patient Cleared - Admin/Chairm an/Director advise to proceed or did not respond 11/26/2022 03/23/2023 1 1 [facility] for visit Narrative* Diagnostic Procedure Only (Routine) - Closed Specialty Diagnoses / Procedures Referred By Nanette polo Referred To Contact XR IMAGING Diagnoses Chest wall contusion, right, initial encounter Procedures XR RIBS/CHEST 3V AP RIB/OBLS/CXR RIGHT RADEX RIBS UNI W/POSTEROANT CH MINIMUM 3 VIEWS Vic Samano, DO [facility] [place] [address] [place] [address] Referral ID Status Reason Start Date Expiration Date V isits Requested Visits Authorized [id number] Closed Auto-Generate d Referral 06/11/2023 07/10/2024 1 1 [facility] for visit Narrative* Outpatient Procedure (Routine) - Closed Specialty Diagnoses / Procedures Referred By Nanette polo Referred To Contact [facility] Diagnoses Chronic RUQ pain Epigastric pain Gastroesophageal reflux disease without esophagitis Procedures EGD DIAGNOSTIC ESOPHAGOGASTRODUODENOSCOPY TRANSORAL DIAGNOSTIC Asia Salgado APRN.ISA [address] [place] [address] [facility] [address] [place] [address] Referral ID Status Reason Start Date Expiration Date V isits Requested Visits Authorized [id number] Closed Auto-Generate d Referral 12/08/2023 12/04/2024 1 1 [facility] for visit Narrative* Outpatient Procedure (Routine) - Closed Specialty Diagnoses / Procedures Referred By Nanette polo Referred To Contact [facility] Diagnoses Chronic RLQ pain Procedures COLONOSCOPY DIAGNOSTIC COLONOSCOPY FLX DX W/COLLJ SPEC WHEN PFRMD Asia Salgado, [place].TELEVISION CABINET FINISHER [address] [place] [address] [facility] [address] [place] [address] Referral ID Status Reason Start Date Expiration Date V isits Requested Visits Authorized [id number] Closed Auto-Generate d Referral 04/21/2024 05/21/2024 1 1 [facility] note* JESSICA Britton: PERFORM Event Display: Patient Summary Documents Authored Date: [id number] [facility] Chief Complaint and Reason for Visit Chief Complaint left shoulder injury back pain COUGH PAIN left knee pain CVA/TIA CVA/TIA Reason for Visit TIA (transient ische violette attack) Chief Complaint COUGH PAIN left knee pain CVA/TIA CVA/TIA back pain PAIN OTHER Reason for Visit TIA (transient ische violette attack) Chief Complaint PAIN left knee pain CVA/TIA CVA/TIA back pain PAIN OTHER left wrist, forearm pain UPPER EXTREMITY Reason for Visit TIA (transient ische violette attack) Chief Complaint COLD SX Chief Complaint COLD SX BACK Chief Complaint COLD SX BACK abdominal pain Chief Complaint abdominal pain RIGHT ABD PAIN Chief Complaint RIGHT ABD PAIN Chief Complaint RIGHT ABD PAIN SEMEN SAMPLE Chief Complaint RIB PAIN Chief Complaint Admit Date L ARM PAIN March 02, 2024 10:18pm back April 28, 2024 6 :16pm ? GI BLEED May 03, 2024 1:00am ? GI BLEED May 03, 2024 5:03pm ABDOMINAL PAIN May 08, 2024 7:57pm GI BLEED May 29, 2024 10:0 7pm Reason for Visit Admit Date Abdominal pain May 03, 2024 1:00am Chief Complaint Admit Date L ARM PAIN March 02, 2024 10:18pm back April 28, 2024 6 :16pm ? GI BLEED May 03, 2024 1:00am ? GI BLEED May 03, 2024 5:03pm ABDOMINAL PAIN May 08, 2024 7:57pm GI BLEED May 29, 2024 10:0 7pm abdominal pain June 24, 2024 10:3 4pm Chief Complaint Admit Date back April 28, 2024 6 :16pm ? GI BLEED May 03, 2024 1:00am ? GI BLEED May 03, 2024 5:03pm ABDOMINAL PAIN May 08, 2024 7:57pm GI BLEED May 29, 2024 10:0 7pm abdominal pain June 24, 2024 10:3 4pm abdominal pain,with n/v,gi bleed June 222024 5:33am ACUTE SIGMOID DIVERTICULITIS W/ ABD PAIN , N/V/D/ July 02, 2024 6:06am Reason for Visit Admit Date Abdominal pain May 03, 2024 1:00am GERD (gastroesophageal reflux disease) A pril 2024 6:06am History of bowel resection July 02, 2 025 6:06am History of diverticulitis July 02 6:06am Intractable abdominal pain July 02, 025 6:06am Morbid obesity with BMI of 50.0-59.9, ad ult July 02, 2024 6:06am Nausea and vomiting July 02, 2024 6:0 6am Periumbilical hernia July 02, 2024 6: 06am Sigmoid diverticulitis July 02, 2024 6:06am Chief Complaint Admit Date back April 28, 2024 6 :16pm ? GI BLEED May 03, 2024 1:00am ? GI BLEED May 03, 2024 5:03pm ABDOMINAL PAIN May 08, 2024 7:57pm GI BLEED May 29, 2024 10:0 7pm abdominal pain June 24, 2024 10:3 4pm abdominal pain,with n/v,gi bleed June 222024 5:33am ACUTE SIGMOID DIVERTICULITIS W/ ABD PAIN , N/V/D/ July 02, 2024 6:06am diverticulitis July 14, 2024 12: 58pm Abd pain July 14, 2024 1:3 8pm Reason for Visit Admit Date Abdominal pain May 03, 2024 1:00am Sigmoid diverticulitis July 02, 2024 6:06am Intractable abdominal pain July 02, 025 6:06am Nausea and vomiting July 02, 2024 6:0 6am GERD (gastroesophageal reflux disease) A pril 2024 6:06am History of bowel resection July 02, 2 025 6:06am History of diverticulitis July 02 6:06am Morbid obesity with BMI of 50.0-59.9, ad ult July 02, 2024 6:06am Periumbilical hernia July 02, 2024 6: 06am Sigmoid diverticulitis July 14, 2024 12:58pm Chief Complaint Admit Date back April 28, 2024 6 :16pm ? GI BLEED May 03, 2024 1:00am ? GI BLEED May 03, 2024 5:03pm ABDOMINAL PAIN May 08, 2024 7:57pm GI BLEED May 29, 2024 10:0 7pm abdominal pain June 24, 2024 10:3 4pm abdominal pain,with n/v,gi bleed June 222024 5:33am ACUTE SIGMOID DIVERTICULITIS W/ ABD PAIN , N/V/D/ July 02, 2024 6:06am diverticulitis July 14, 2024 12: 58pm Abd pain July 14, 2024 1:3 8pm Abd pain July 14, 2024 6:0 3pm HEADACHE August 07, 2024 7:30p m Chief Complaint Admit Date ? GI BLEED May 03, 2024 1:00am ? GI BLEED May 03, 2024 5:03pm ABDOMINAL PAIN May 08, 2024 7:57pm GI BLEED May 29, 2024 10:0 7pm abdominal pain June 24, 2024 10:3 4pm abdominal pain,with n/v,gi bleed June 222024 5:33am ACUTE SIGMOID DIVERTICULITIS W/ ABD PAIN , N/V/D/ July 02, 2024 6:06am diverticulitis July 14, 2024 12: 58pm Abd pain July 14, 2024 1:3 8pm Abd pain July 14, 2024 6:0 3pm HEADACHE August 07, 2024 7:30p m GI BLEED August 27, 2024 3:51p m Advance Directives No Advanced Directives Records Found Advance Directive Response Recorded Date/ Time Advance Directives No April 14, 2016 10:04pm Living Will No August 25, 2021 6 :27am Power of Belt Maker Helper No August 25, 2021 6:27am Advance Directive Response Recorded Date/ Time Advance Directives No April 14, 2016 10:04pm Living Will No October 28, 2021 12:09am Power of Belt Maker Helper No October 28 12:09am Advance Directive Response Recorded Date/ Time Advance Directives No April 14, 2016 10:04pm Living Will No December 04, 2021 8:03pm Power of Belt Maker Helper No November 8:03pm Advance Directive Response Recorded Date/ Time Advance Directives No April 14, 2016 10:04pm Living Will No June 14, 2022 11:03pm Power of Belt Maker Helper No June 14 11:03pm Advance Directive Response Recorded Date/ Time Advance Directives No April 14, 2016 10:04pm Living Will No July 10, 2022 11:25pm Power of Belt Maker Helper No July 10 11:25pm Advance Directive Response Recorded Date/ Time Advance Directives No April 14, 2016 10:04pm Living Will No September 15, 2022 4:35am Power of Belt Maker Helper No September 15 4:35am Advance Directive Response Recorded Date/ Time Name of Medical Power of Belt Maker Helper MERY LOPEZ November 20, 2022 1:21am Advance Directives No April 14, 2016 10:04pm Living Will Yes November 20 1:21am Power of Belt Maker Helper Yes November 20, 023 1:21am Advance Directive Response Recorded Date/ Time Name of Medical Power of Belt Maker Helper MERY LOPEZ November 20, 2022 12:21am Advance Directives No April 14, 2016 9:04pm Living Will Yes November 20 12:21am Power of Belt Maker Helper Yes November 20, 2 023 12:21am Advance Directive Response Recorded Date/ Time Advance Directives No April 14, 2016 10:04pm Living Will No June 22, 2023 10:41am Power of Belt Maker Helper No June 21 10:41am Advance Directive Response Recorded Date/ Time Living Will No March 02 024 11:28pm Power of Belt Maker Helper No March 02, 2024 11:28pm Living Will No May 08, 025 9:52pm Power of Belt Maker Helper No May 08, 2024 9:52pm Living Will No April 28 6:49pm Power of Belt Maker Helper No April 28, 2024 6:49pm Living Will No May 03 2 025 1:53am Power of Belt Maker Helper No May 03, 2024 1:53am Living Will No May 29, 2024 10:41pm Power of Belt Maker Helper No May 29 10:41pm Advance Directives No April 14, 2016 9:04pm Advance Directive Response Recorded Date/ Time Living Will No March 03, 2 024 12:28am Do you have a Healthcare Power of Belt Maker Helper? No March 03, 2024 12:28am Living Will No May 08, 2 025 10:52pm Do you have a Healthcare Power of Belt Maker Helper? No May 08, 2024 10:52pm Living Will No June 24, 2024 11:35pm Do you have a Healthcare Power of Belt Maker Helper? No June 24, 2024 11:35pm Living Will No April 28 7:49pm Do you have a Healthcare Power of Belt Maker Helper? No April 28, 2024 7:49pm Living Will No May 03 2 025 2:53am Do you have a Healthcare Power of Belt Maker Helper? No May 03, 2024 2:53am Living Will No May 29, 2024 11:41pm Do you have a Healthcare Power of Belt Maker Helper? No May 29, 2024 11:41pm Advance Directives No April 14, 2016 10:04pm Advance Directive Response Recorded Date/ Time Living Will No May 08, 2 025 10:52pm Do you have a Healthcare Power of Belt Maker Helper? No May 08, 2024 10:52pm Living Will No June 24, 2024 11:35pm Do you have a Healthcare Power of Belt Maker Helper? No June 24, 2024 11:35pm Living Will No July 02, 2024 3:17am Do you have a Healthcare Power of Belt Maker Helper? No July 02, 2024 3:17am Living Will No April 28 7:49pm Do you have a Healthcare Power of Belt Maker Helper? No April 28, 2024 7:49pm Living Will No May 03 2 025 2:53am Do you have a Healthcare Power of Belt Maker Helper? No May 03, 2024 2:53am Living Will No May 29, 2024 11:41pm Do you have a Healthcare Power of Belt Maker Helper? No May 29, 2024 11:41pm Advance Directives No April 14, 2016 10:04pm Advance Directive Response Recorded Date/ Time Living Will No May 08, 025 10:52pm Do you have a Healthcare Power of Belt Maker Helper? No May 08, 2024 10:52pm Living Will No June 24, 2024 11:35pm Do you have a Healthcare Power of Belt Maker Helper? No June 24, 2024 11:35pm Living Will No July 02, 2024 7:26am Do you have a Healthcare Power of Belt Maker Helper? No July 02, 2024 7:26am Living Will No April 28 7:49pm Do you have a Healthcare Power of Belt Maker Helper? No April 28, 2024 7:49pm Living Will No May 03 025 2:53am Do you have a Healthcare Power of Belt Maker Helper? No May 03, 2024 2:53am Living Will No May 29, 2024 11:41pm Do you have a Healthcare Power of Belt Maker Helper? No May 29, 2024 11:41pm Advance Directives No April 14, 2016 10:04pm Advance Directive Response Recorded Date/ Time Living Will No May 08 025 10:52pm Do you have a Healthcare Power of Belt Maker Helper? No May 08, 2024 10:52pm Living Will No June 24, 2024 11:35pm Do you have a Healthcare Power of Belt Maker Helper? No June 24, 2024 11:35pm Living Will No July 02, 2024 7:26am Do you have a Healthcare Power of Belt Maker Helper? No July 02, 2024 7:26am Do you have a Healthcare Power of Belt Maker Helper? No July 14, 2024 3:36pm Living Will No April 28 7:49pm Do you have a Healthcare Power of Belt Maker Helper? No April 28, 2024 7:49pm Living Will No May 03 025 2:53am Do you have a Healthcare Power of Belt Maker Helper? No May 03, 2024 2:53am Living Will No May 29, 2024 11:41pm Do you have a Healthcare Power of Belt Maker Helper? No May 29, 2024 11:41pm Advance Directives No April 14, 2016 10:04pm Advance Directive Response Recorded Date/ Time Living Will No May 08 2 025 10:52pm Do you have a Healthcare Power of Belt Maker Helper? No May 08, 2024 10:52pm Living Will No June 24, 2024 11:35pm Do you have a Healthcare Power of Belt Maker Helper? No June 24, 2024 11:35pm Living Will No July 02, 2024 7:26am Do you have a Healthcare Power of Belt Maker Helper? No July 02, 2024 7:26am Do you have a Healthcare Power of Belt Maker Helper? No July 14, 2024 3:36pm Living Will No April 28 7:49pm Do you have a Healthcare Power of Belt Maker Helper? No April 28, 2024 7:49pm Living Will No May 03 2:53am Do you have a Healthcare Power of Belt Maker Helper? No May 03, 2024 2:53am Living Will No May 29, 2024 11:41pm Do you have a Healthcare Power of Belt Maker Helper? No May 29, 2024 11:41pm Do you have a Healthcare Power of Belt Maker Helper? No August 07, 2024 7:55pm Advance Directives No April 14, 2016 10:04pm Advance Directive Response Recorded Date/ Time Living Will No May 08, 10:52pm Do you have a Healthcare Power of Belt Maker Helper? No May 08, 2024 10:52pm Living Will No June 24, 2024 11:35pm Do you have a Healthcare Power of Belt Maker Helper? No June 24, 2024 11:35pm Living Will No July 02, 2024 7:26am Do you have a Healthcare Power of Belt Maker Helper? No July 02, 2024 7:26am Do you have a Healthcare Power of Belt Maker Helper? No July 14, 2024 3:36pm Do you have a Healthcare Power of Belt Maker Helper? No August 27, 2024 5:21pm Living Will No May 03 2:53am Do you have a Healthcare Power of Belt Maker Helper? No May 03, 2024 2:53am Living Will No May 29, 2024 11:41pm Do you have a Healthcare Power of Belt Maker Helper? No May 29, 2024 11:41pm Do you have a Healthcare Power of Belt Maker Helper? No August 07, 2024 7:55pm Advance Directives No April 14, 2016 10:04pm Reason for Referral Specialty Diagnoses / Procedures Referred By Contac t Referred To Contact [facility] Diagnoses Lesion of left ulnar nerve Elbow pain, chronic, left Procedures MRI ELBOW WO IVCON LEFT MRI ANY JT UPPER EXTREMITY W/O CONTRAST Deandra Linn, [address] [place] [address] Mr [facility] [place] [address] Referral ID Status Reason Start Date Expiration Date Visits Requested Visits Authorized [id number] Authorized Auto-Generat ed Referral 04/18/2025 1 1 Specialty Diagnoses / Procedures Referred By Contac t Referred To Contact [facility] IMAGING Diagnoses Strain of left biceps, initial encounter Medial epicondylitis of left elbow Contusion of bone Procedures MRI ELBOW WO IVCON LT MRI ANY JT UPPER EXTREMITY W/O CONTRAST Deandra Linn, [address] [place] [address] Mr Imaging Referral ID Status Reason Start Date Expiration Date Visits Requested Visits Authorized [id number] Authorized Auto-Generat ed Referral 11/21/2021 12/21/2022 1 1 Specialty Diagnoses / Procedures Referred By Contac t Referred To Contact [facility] Diagnoses Strain of left biceps, initial encounter Medial epicondylitis of left elbow Contusion of bone Procedures CONSULT TO DATA ENTRY PROCESSOR OCCUPATIONAL THERAPY EVAL HIGH COMPLEX 60 MINS Deandra Ochoa, [address] [place] [address] [facility] [address] [address] Referral ID Status Reason Start Date Expiration Date Visits Requested Visits Authorized [id number] Authorized Auto-Generat ed Referral 03/24/2021 03/23/2022 99 99 Summary Purpose Family History Relationship Condition Age at Onset Recorded Date/T cynthia mother Malignant neoplasm Unknown father Cerebral aneurysm Unknown No Family History Records Found Medications Administered Section Inactive Administered Medications - up to 3 most recent administrations Medication Order MAR Action Action Date Dose Rate Site benzocaine 20% 1 [place] (TOPEX) 1 [place], TOPICAL, DIRECTED, Starting on Fri11/26/22 at 1200, Until Fri11/26/22 at 1559, DOSING DIRECTED BY PHYSICIAN FOR PROCEDURAL SEDATION ONLY - Pharmaceutical Waste: Aerosol -, Intraprocedure Given by [facility] 11/26/2022 11:56 AM EDT 5 Sprays diphenhydrAMINE 12.5-50 mg injection (BENADRYL) 12.5-50 mg, INTRAVENOUS, DIRECTED, Starting on Fri11/26/22 at 1200, Until Fri11/26/22 at 1559, DOSING DIRECTED BY PHYSICIAN FOR PROCEDURAL SEDATION ONLY, Intraprocedure Given 11/26/2022 12:01 PM EDT 50 mg fentaNYL 50 mcg/mL 25-100 mcg injection (SUBLIMAZE) 25-100 mcg, INTRAVENOUS, DIRECTED, Starting on Fri11/26/22 at 1200, Until Fri11/26/22 at 1559, DOSING DIRECTED BY PHYSICIAN FOR PROCEDURAL SEDATION ONLY, Intraprocedure Given by [facility] 11/26/2022 12:00 PM EDT 25 mcg Given by [facility] 11/26/2022 11:59 AM EDT 25 mcg Given by [facility] 11/26/2022 11:58 AM EDT 50 mcg lactated ringers iv infusion 30 mL/hr, INTRAVENOUS, CONTINUOUS, Starting on Fri11/26/22 at 1130, Until Fri11/26/22 at 1234, Preprocedure New Bag/Syringe/Bottle 11/26/2022 11:01 AM EDT 30 mL/hr 30 mL/hr midazolam 1-5 mg injection (VERSED) 1-5 mg, INTRAVENOUS, DIRECTED, Starting on Fri11/26/22 at 1200, Until Fri11/26/22 at 1559, DOSING DIRECTED BY PHYSICIAN FOR PROCEDURAL SEDATION ONLY, Intraprocedure Given by [facility] 11/26/2022 12:00 PM EDT 1 mg Given by [facility] 11/26/2022 11:59 AM EDT 1 mg Given by [facility] 11/26/2022 11:58 AM EDT 3 mg Additional Source Comments Care Team (unrecognized sect ion and content) Team Status: Active Member Role Status Dates Fidencio Vega BAG VALVER, BAG VALVER-C Family Provider Active No Primary Care Physician Primary Care Provider Active Team Status: Inactive Member Role Status Dates No Primary Care Physician Primary Care Provider Active Dr. Patrick Moreno , DO Emergency Provider Active Team Status: Active Member Role Status Dates Fidencio Gary BAG VALVER, BAG VALVER-C Family Provider Active [facility] Primary Care Provider A ctive Team Status: Inactive Member Role Status Dates No Primary Care Physician Primary Care Provider Active Dr. Patrick Moreno DO Attending Provider, Emergency P rovider Active Team Status: Inactive Member Role Status Dates No Primary Care Physician Primary Care Provider Active Dr. Cj Rivas DO Attending Provider, Emergency Provider Active Team Status: Inactive Member Role Status Dates [facility] Primary C are Provider, Attending Provider, Referring Provider Active Zabrina Ramon BAG VALVER, BAG VALVER-C Other Provider Active Team Status: Inactive Member Role Status Dates [facility] Primary Care Provider A ctive Dr. Lion Batista MD Emergency Provider Active Team Status: Active Member Role Status Dates Fidencio Vega BAG VALVER, BAG VALVER-C Family Provider Active Opal Carias VSC, BAG VALVER-C Primary Care Provider Active Team Status: Inactive Member Role Status Dates [facility] Primary Care Provider A ctive Dr. Lion Batista MD Attending Provider, Emergency Provider Active Team Status: Inactive Member Role Status Dates Dr. Patrick Moreno DO Emergency Provider Active Opal Jv VSC, BAG VALVER-C Primary Care Provider Active Team Status: Inactive Member Role Status Dates Koko Orantes VSC, BAG VALVER-C Primary Care Provid er, Attending Provider, Referring Provider Active Team Status: Inactive Member Role Status Dates Dr. Patrick Moreno DO Attending Provider, Emergency P rovider Active Opal Jv VSC, BAG VALVER-C Primary Care Provider Active Team Status: Active Member Role Status Dates Fidencio Vega BAG VALVER, BAG VALVER-C Family Provider Active Koko Orantes VSC, BAG VALVER-C Primary Care Provider Active Team Status: Inactive Member Role Status Dates Koko Orantes VSC, BAG VALVER-C Primary Care Provider Active Dr. Ruddy Spain MD Emergency Provider Active Printing Sign Machine Operator Relationship Specialty Start Date End Date Eileen Cooney CNP [address] [place] [address] PCP - General Family Medicine 12/17/23 Printing Sign Machine Operator Relationship Specialty Start Date End Date Eileen Cooney CNP [address] [place] [address] PCP - General Family Medicine 12/17/23 Printing Sign Machine Operator Relationship Specialty Start Date End Date Eilene Cooney CNP [address] [place] [id number] PCP - General Family Medicine 12/17/23 Printing Sign Machine Operator Relationship Specialty Start Date End Date Eileen Cooney CNP [address] [place] [id number] PCP - General Family Medicine 12/17/23 Printing Sign Machine Operator Relationship Specialty Start Date End Date Eileen Cooney CNP [address] [place] [id number] PCP - General Family Medicine 12/17/23 Printing Sign Machine Operator Relationship Specialty Start Date End Date Eileen Cooney CNP [address] [place] [id number] PCP - General Family Medicine 12/17/23 Printing Sign Machine Operator Relationship Specialty Start Date End Date Eileen Cooney CNP [address] [place] [id number] PCP - General Family Medicine 12/17/23 Printing Sign Machine Operator Relationship Specialty Start Date End Date Eileen Cooney CNP [address] [place] [id number] PCP - General Family Medicine 12/17/23 Printing Sign Machine Operator Relationship Specialty Start Date End Date Eileen Cooney CNP [address] [place] [address] PCP - General Family Medicine 12/17/23 Printing Sign Machine Operator Relationship Specialty Start Date End Date Eileen Cooney CNP [address] [place] [address] PCP - General Family Medicine 12/17/23 Team Status: Active Member Role Status Dates ALCIRA COLBERT Primary Care Provider Active Team Status: Inactive Member Role Status Dates Dr. Abran Simeon DO Attending Provider Active S tart: March 02, 2024 End: March 02, 2024 Dr. Abran Simeon , Emergency Provider Active S tart: March 02, 2024 End: March 02, 2024 BELLO COLBERTNP Primary Care Provider Active Start: March 02, 2024 End: March 02, 2024 Team Status: Inactive Member Role Status Dates ALCIRA COLBERT Primary Care Provider Active Start: April 28, 2024 End: April 28, 2024 Sidney Singh MD Attending Provider Active Star t: April 28, 2024 End: April 28, 2024 Sidney Singh MD Referring Provider Active Star t: April 28, 2024 End: April 28, 2024 Sidney Singh MD Emergency Provider Active Star t: April 28, 2024 End: April 28, 2024 Team Status: Inactive Member Role Status Dates ALCIRA COLBERT Primary Care Provider Active Start: May 03, 2024 End: May 03, 2024 Dr. Sebastian Puri DO Emergency Provider Activ e Start: May 03, 2024 End: May 03, 2024 Dr. Yana Salmeron MD Admit Provider Active St art: May 03, 2024 End: May 03, 2024 Dr. Yana Salmeron MD Other Provider Active St art: May 03, 2024 End: May 03, 2024 Dr. Luis James MD Attending Provider Active Start: May 03, 2024 End: May 03, 2024 Team Status: Active Member Role Status Dates ALCIRA COLBERT Primary Care Provider Active Start: May 03, 2024 Dr. Nicolas Sanchez MD Attending Provider Activ e Start: May 03, 2024 Team Status: Active Member Role Status Dates EILEEN MAST , MEDICATION ASSISTANT Primary Care Provider Active Start: May 03, 2024 Dr. Sebastian Puri DO Emergency Provider Activ e Start: May 03, 2024 Dr. Yana Salmeron MD Admit Provider Active St art: May 03, 2024 Dr. Yana Salmeron MD Other Provider Active St art: May 03, 2024 Dr. Luis James MD Referring Provider Active Start: May 03, 2024 Dr. Luis James MD Other Provider Active Start: May 03, 2024 Dr. Logan White , Attending Provider Active Start: May 03, 2024 Team Status: Inactive Member Role Status Dates EILEEN MAST , MEDICATION ASSISTANT Primary Care Provider Active Start: May 08, 2024 End: May 08, 2024 Dr. Patrick Moreno DO Attending Provider Active Start: May 08, 2024 End: May 08, 2024 Dr. Patrick Moreno DO Emergency Provider Active Start: May 08, 2024 End: May 08, 2024 Team Status: Inactive Member Role Status Dates EILEEN MAST , MEDICATION ASSISTANT Primary Care Provider Active Start: May 29, 2024 End: May 30, 2024 Dr. Luis Marmolejo DO Emergency Provider Active Start : May 29, 2024 End: May 30, 2024 Team Status: Inactive Member Role Status Dates EILEEN MAST , MEDICATION ASSISTANT Primary Care Provider Active Start: May 29, 2024 End: May 30, 2024 Dr. Luis Marmolejo DO Attending Provider Active Start : May 29, 2024 End: May 30, 2024 Dr. Luis Marmolejo DO Emergency Provider Active Start : May 29, 2024 End: May 30, 2024 Team Status: Inactive Member Role Status Dates EILEEN MAST , MEDICATION ASSISTANT Primary Care Provider Active Start: June 24, 2024 End: June 25, 2024 Dr. Marv Pack DO Emergency Provider Active Start: June 24, 2024 End: June 25, 2024 Team Status: Inactive Member Role Status Dates EILEEN MAST , MEDICATION ASSISTANT Primary Care Provider Active Start: June 24, 2024 End: June 25, 2024 Dr. Marv Pack DO Attending Provider Active Start: June 24, 2024 End: June 25, 2024 Dr. Marv Pack , DO Emergency Provider Active Start: June 24, 2024 End: June 25, 2024 Team Status: Active Member Role Status Dates EILEEN MAST , MEDICATION ASSISTANT Primary Care Provider Active Start: July 02, 2024 Dr. Marv Pack , DO Emergency Provider Active Start: July 02, 2024 Dr. Vic Mercado , DO Attending Provider Active Start: July 02, 2024 Team Status: Active Member Role Status Dates EILEEN MAST , MEDICATION ASSISTANT Primary Care Provider Active Start: July 02, 2024 Dr. Marv Pack , DO Emergency Provider Active Start: July 02, 2024 Dr. Vic Mercado , DO Admit Provider Active Start: July 02, 2024 Dr. Vic Mercado , DO Other Provider Active Start: July 02, 2024 Dr. Patrick Peng , DO Attending Provider Active Start: July 02, 2024 Team Status: Inactive Member Role Status Dates EILEEN MAST , MEDICATION ASSISTANT Primary Care Provider Active Start: July 02, 2024 End: July 02, 2024 Dr. Marv Pack , DO Emergency Provider Active Start: July 02, 2024 End: July 02, 2024 Dr. Vic Mercado , DO Admit Provider Active Start: July 02, 2024 End: July 02, 2024 Dr. Vic Mercado , Other Provider Active Start: July 02, 2024 End: July 02, 2024 Dr. Patrick Peng , DO Attending Provider Active Start: July 02, 2024 End: July 02, 2024 Team Status: Inactive Member Role Status Dates EILEEN MAST , MEDICATION ASSISTANT Primary Care Provider Active Start: July 14, 2024 End: July 14, 2024 EILEEN MAST , MEDICATION ASSISTANT Referring Provider Active Sta rt: July 14, 2024 End: July 14, 2024 PEGGY Garcia Attending Provider Active Start: July 14, 2024 End: July 14, 2024 Team Status: Inactive Member Role Status Dates EILEEN MAST , MEDICATION ASSISTANT Primary Care Provider Active Start: July 14, 2024 End: July 14, 2024 Dr. Sebastian Puri , DO Emergency Provider Activ e Start: July 14, 2024 End: July 14, 2024 Printing Sign Machine Operator Relationship Specialty Start Date End Date Eileen Cooney CNP [address] [place] [address] PCP - General Family Medicine 12/17/23 Team Status: Active Member Role Status Dates No Primary Care Physician Primary Care Provider Active Team Status: Inactive Member Role Status Dates ALCIRA COLBERT Primary Care Provider Active Start: July 14, 2024 End: July 14, 2024 Dr. Sebastian Puri , DO Attending Provider Activ e Start: July 14, 2024 End: July 14, 2024 Dr. Sebastian Puri , DO Emergency Provider Activ e Start: July 14, 2024 End: July 14, 2024 Team Status: Active Member Role Status Dates ALCIRA COLBERT Primary Care Provider Active Start: July 14, 2024 Dr. Sebastian Puri , DO Referring Provider Activ e Start: July 14, 2024 Dr. Sebastian Puri , DO Emergency Provider Activ e Start: July 14, 2024 Dr. Harry Patel MD Attending Provider Active Start: July 14, 2024 Team Status: Inactive Member Role Status Dates Dr. Luis Marmolejo DO Emergency Provider Active Start : August 07, 2024 End: August 07, 2024 No Primary Care Physician Primary Care Provider Active Start: August 07, 2024 End: August 07, 2024 Team Status: Inactive Member Role Status Dates Dr. Luis Marmolejo DO Attending Provider Active Start : August 07, 2024 End: August 07, 2024 Dr. Luis Marmolejo DO Emergency Provider Active Start : August 07, 2024 End: August 07, 2024 No Primary Care Physician Primary Care Provider Active Start: August 07, 2024 End: August 07, 2024 Team Status: Inactive Member Role Status Dates No Primary Care Physician Primary Care Provider Active Start: August 27, 2024 End: August 27, 2024 Dr. Aj Little , DO Emergency Provider Active Start: August 27, 2024 End: August 27, 2024 Goals (unrecognized section and content) Goals may be documented in a n alternate section Care Team (unrecognized sect ion and content) Care Team Personnel Name: PHYSICIAN, NONE Position: Physician Member Role: Primary Care Physician Name: MICHELLE RIZO DO Position: ED Physician Member Role: Attending Physician Address: Address: [address] [employer] [address] Care Team Related Persons Name: ROSHNI PADILLA Name: ROSHNI PADILLA Address: Home [address] Care Team Personnel Name: PHYSICIAN, NONE Position: Physician Member Role: Primary Care Physician Care Team Related Persons Name: ROSHNI PADILLA Name: ROSHNI PADILLA Address: Home [address] Name: OSWALDO LEE Care Team Personnel Name: PHYSICIAN, NONE Position: Physician Member Role: Primary Care Physician Care Team Related Persons Name: ROSHNI PADILLA Name: ROSHNI PADILLA Address: Home [address] Name: OSWALDO LEE Care Team Personnel Name: PHYSICIAN, NONE Position: Physician Member Role: Primary Care Physician Care Team Related Persons Name: ROSHNI PADILLA Name: ROSHNI PADILLA Address: Home [address] Name: OSWALDO LEE Care Team Personnel Name: PHYSICIAN, NONE Position: Physician Member Role: Primary Care Physician Name: YANIRA Umaña Position: RN Member Role: ED RN Name: RUDI PAULSON DO Position: Resident Member Role: Resident Address: Address: [address] Emergency Resident [address] Name: LAKHWINDER BERNAL MD Position: ED Physician Member Role: ED Physician Address: Address: [facility] [address] [place] [address]- Care Team Related Persons Name: MERY LOPEZ Name: ROSHNI PADILLA Name: ROSHNI PADILLA Address: Home [address] Care Team Personnel Name: PHYSICIAN, NONE Position: Physician Member Role: Primary Care Physician Name: Nory Parrish Coder Position: HIM: Coders Member Role: HIM: Coders Name: LAKHWINDER BERNAL MD Position: ED Physician Member Role: ED Physician Address: Address: [facility] [address] [place] [address]- Name: YANIRA Diane Position: RN Member Role: ED RN Care Team Related Persons Name: MERY LOPEZ Name: ROSHNI PADILLA Name: ROSHNI PADILLA Address: Home [address] [place] [address] [place] Care Team Personnel Name: PHYSICIAN, NONE Position: Physician Member Role: Primary Care Physician Name: KEITH FRANKLIN MD Position: ED Physician Member Role: ED Physician Address: Address: [address] [place] [address] [place] [address]- Name: Danay Kelly RN Position: ED RN Member Role: ED RN Care Team Related Persons Name: MERY LOPEZ Name: ROSHNI PADILLA Name: ROSHNI PADILLA Address: Home [address] [place] [address] Care Team Personnel Name: PHYSICIAN, NONE Position: Physician Member Role: Primary Care Physician Name: JG ASHRAF DO Position: ED Physician Member Role: ED Physician Address: Address: [facility] [address] [place] [address]- Care Team Related Persons Name: MERY LOPEZ Name: ROSHNI PADILLA Name: ROSHNI PADILLA Address: Home [address] [place] [address] Source Comments (unrecognize d section and content) In the event this informatio n is protected by the Federal Confidentiality of Alcohol and Drug Abuse Patient Records regulations: The Federal rules restrict any use of the information to criminally investigate or prosecute any alcohol or drug abuse patient.[facility] HospitalIn the event this information is protected by the Federal Confidentiality of Alcohol and Drug Abuse Patient Records regulations: The Federal rules restrict any use of the information to criminally investigate or prosecute any alcohol or drug abuse patient.[facility] HospitalIn the event this information is protected by the Federal Confidentiality of Alcohol and Drug Abuse Patient Records regulations: The Federal rules restrict any use of the information to criminally investigate or prosecute any alcohol or drug abuse patient.[facility] HospitalIn the event this information is protected by the Federal Confidentiality of Alcohol and Drug Abuse Patient Records regulations: The Federal rules restrict any use of the information to criminally investigate or prosecute any alcohol or drug abuse patient.[facility] HospitalIn the event this information is protected by the Federal Confidentiality of Alcohol and Drug Abuse Patient Records regulations: The Federal rules restrict any use of the information to criminally investigate or prosecute any alcohol or drug abuse patient.[facility] HospitalIn the event this information is protected by the Federal Confidentiality of Alcohol and Drug Abuse Patient Records regulations: The Federal rules restrict any use of the information to criminally investigate or prosecute any alcohol or drug abuse patient.[facility] HospitalIn the event this information is protected by the Federal Confidentiality of Alcohol and Drug Abuse Patient Records regulations: The Federal rules restrict any use of the information to criminally investigate or prosecute any alcohol or drug abuse patient.[facility] HospitalIn the event this information is protected by the Federal Confidentiality of Alcohol and Drug Abuse Patient Records regulations: The Federal rules restrict any use of the information to criminally investigate or prosecute any alcohol or drug abuse patient.[facility] HospitalIn the event this information is protected by the Federal Confidentiality of Alcohol and Drug Abuse Patient Records regulations: The Federal rules restrict any use of the information to criminally investigate or prosecute any alcohol or drug abuse patient.[facility] HospitalIn the event this information is protected by the Federal Confidentiality of Alcohol and Drug Abuse Patient Records regulations: The Federal rules restrict any use of the information to criminally investigate or prosecute any alcohol or drug abuse patient.[facility] HospitalIn the event this information is protected by the Federal Confidentiality of Alcohol and Drug Abuse Patient Records regulations: The Federal rules restrict any use of the information to criminally investigate or prosecute any alcohol or drug abuse patient.[facility] HospitalIn the event this information is protected by the Federal Confidentiality of Alcohol and Drug Abuse Patient Records regulations: The Federal rules restrict any use of the information to criminally investigate or prosecute any alcohol or drug abuse patient.[facility] HospitalIn the event this information is protected by the Federal Confidentiality of Alcohol and Drug Abuse Patient Records regulations: The Federal rules restrict any use of the information to criminally investigate or prosecute any alcohol or drug abuse patient.[facility] HospitalIn the event this information is protected by the Federal Confidentiality of Alcohol and Drug Abuse Patient Records regulations: The Federal rules restrict any use of the information to criminally investigate or prosecute any alcohol or drug abuse patient.[facility] HospitalIn the event this information is protected by the Federal Confidentiality of Alcohol and Drug Abuse Patient Records regulations: The Federal rules restrict any use of the information to criminally investigate or prosecute any alcohol or drug abuse patient.[facility] HospitalIn the event this information is protected by the Federal Confidentiality of Alcohol and Drug Abuse Patient Records regulations: The Federal rules restrict any use of the information to criminally investigate or prosecute any alcohol or drug abuse patient.[facility] HospitalIn the event this information is protected by the Federal Confidentiality of Alcohol and Drug Abuse Patient Records regulations: The Federal rules restrict any use of the information to criminally investigate or prosecute any alcohol or drug abuse patient.[facility] HospitalIn the event this information is protected by the Federal Confidentiality of Alcohol and Drug Abuse Patient Records regulations: The Federal rules restrict any use of the information to criminally investigate or prosecute any alcohol or drug abuse patient.[facility] HospitalIn the event this information is protected by the Federal Confidentiality of Alcohol and Drug Abuse Patient Records regulations: The Federal rules restrict any use of the information to criminally investigate or prosecute any alcohol or drug abuse patient.[facility] HospitalIn the event this information is protected by the Federal Confidentiality of Alcohol and Drug Abuse Patient Records regulations: The Federal rules restrict any use of the information to criminally investigate or prosecute any alcohol or drug abuse patient.[facility] HospitalIn the event this information is protected by the Federal Confidentiality of Alcohol and Drug Abuse Patient Records regulations: The Federal rules restrict any use of the information to criminally investigate or prosecute any alcohol or drug abuse patient.[facility] HospitalIn the event this information is protected by the Federal Confidentiality of Alcohol and Drug Abuse Patient Records regulations: The Federal rules restrict any use of the information to criminally investigate or prosecute any alcohol or drug abuse patient.[facility] HospitalIn the event this information is protected by the Federal Confidentiality of Alcohol and Drug Abuse Patient Records regulations: The Federal rules restrict any use of the information to criminally investigate or prosecute any alcohol or drug abuse patient.[facility] HospitalIn the event this information is protected by the Federal Confidentiality of Alcohol and Drug Abuse Patient Records regulations: The Federal rules restrict any use of the information to criminally investigate or prosecute any alcohol or drug abuse patient.[facility] HospitalIn the event this information is protected by the Federal Confidentiality of Alcohol and Drug Abuse Patient Records regulations: The Federal rules restrict any use of the information to criminally investigate or prosecute any alcohol or drug abuse patient.[facility] HospitalIn the event this information is protected by the Federal Confidentiality of Alcohol and Drug Abuse Patient Records regulations: The Federal rules restrict any use of the information to criminally investigate or prosecute any alcohol or drug abuse patient.[facility] HospitalIn the event this information is protected by the Federal Confidentiality of Alcohol and Drug Abuse Patient Records regulations: The Federal rules restrict any use of the information to criminally investigate or prosecute any alcohol or drug abuse patient.[facility] HospitalIn the event this information is protected by the Federal Confidentiality of Alcohol and Drug Abuse Patient Records regulations: The Federal rules restrict any use of the information to criminally investigate or prosecute any alcohol or drug abuse patient.[facility] HospitalIn the event this information is protected by the Federal Confidentiality of Alcohol and Drug Abuse Patient Records regulations: The Federal rules restrict any use of the information to criminally investigate or prosecute any alcohol or drug abuse patient.[facility] HospitalIn the event this information is protected by the Federal Confidentiality of Alcohol and Drug Abuse Patient Records regulations: The Federal rules restrict any use of the information to criminally investigate or prosecute any alcohol or drug abuse patient.[facility] HospitalIn the event this information is protected by the Federal Confidentiality of Alcohol and Drug Abuse Patient Records regulations: The Federal rules restrict any use of the information to criminally investigate or prosecute any alcohol or drug abuse patient.[facility] Reason for Visit (unrecogniz ed section and content) Reason Comments New Pain Specialty Diagnoses / Procedures Referred By Contac t Referred To Contact Orthopedics / ORTHOPAEDIC SURGERY Diagnoses left arm pain Procedures OFFICE/OUTPATIENT NEW HIGH MDM 60-74 MINUTES OFFICE/OUTPATIENT NEW MODERATE MDM 45-59 MINUTES OFFICE/OUTPATIENT NEW LOW MDM 30-44 MINUTES OFFICE/OUTPATIENT NEW SF MDM 15-29 MINUTES TY NEW NO MD Don Guzman Anne Marie, DO [address] [place] [address] Referral ID Status Reason Start Date Expiration Date V isits Requested Visits Authorized [id number] Denied Clearance Not Met - Admin/Chairm an/Director Advise to Postpone/Res chedule or Not Proceed 11/09/2021 03/23/2022 1 0 Specialty Diagnoses / Procedures Referred By Contac t Referred To Contact MR IMAGING Diagnoses Strain of left biceps, initial encounter Medial epicondylitis of left elbow Contusion of bone Procedures MRI ELBOW WO IVCON LT MRI ANY JT UPPER EXTREMITY W/O CONTRAST Deandra Linn DO [address] [place] [address] Mr Imaging Referral ID Status Reason Start Date Expiration Date V isits Requested Visits Authorized [id number] Closed Auto-Generate d Referral 11/21/2021 12/21/2022 1 1 Reason Comments Rectal Bleeding Reason Comments Patient Question Rectum bleeding Reason Comments Appointment Needs follow up Reason Comments Abdominal Pain Reason Comments Results Reason Comments Pain Reason Comments GERD Reason Comments colon consult Reason Comments Orders Appointment Reason Comments Established Patient Pain Numbness Specialty Diagnoses / Procedures Referred By Contac t Referred To Contact MR IMAGING Diagnoses Lesion of left ulnar nerve Elbow pain, chronic, left Procedures MRI ELBOW WO IVCON LEFT MRI ANY JT UPPER EXTREMITY W/O CONTRAST Deandra Linn, [address] [place] [address] [place] [address] Referral ID Status Reason Start Date Expiration Date V isits Requested Visits Authorized [id number] Closed Auto-Generate d Referral 03/19/2024 04/18/2025 1 1 Reason Comments Established Patient Reason Comments 04-21-2024 colon ASC Reason Comments Chest Pain Rectal Bleeding Reason Comments Established Patient Reason Comments Hernia Reason Comments Consult ER follow up diverti culitis (unrecognized sect ion and content) No Status Records FoundNo Status Records FoundNo Status Records FoundNo Status Records FoundNo Status Records FoundNo Status Records FoundNo Status Records FoundNo Status Records Found INFORMATION SOURCE (unrecogn ized section and content) DATE CREATED AUTHOR 08/30/2022 [facility] DATE CREATED AUTHOR [facility] AUTHOR'S ORGANIZ ATION 06/26/2023 [facility] DATE CREATED AUTHOR AUTHOR'S ORGANIZ ATION 11/18/2023 [facility] ([place] DATE CREATED AUTHOR AUTHOR'S ORGANIZ ATION 04/11/2024 [facility] DATE CREATED AUTHOR AUTHOR'S ORGANIZ ATION 07/29/2024 [facility] DATE CREATED AUTHOR AUTHOR'S ORGANIZ ATION 08/29/2024 [facility] DATE CREATED AUTHOR AUTHOR'S ORGANIZ ATION 08/30/2024 [facility] FOR RECORDS PERTAINING TO PATIENTS WHO ARE OR HAVE BEEN ENROLLED IN A CHEMICAL DEPENDENCY/SUBSTANCEABUSE PROGRAM, SOME INFORMATION MAY BE OMITTED. This clinical summary was aggregated from multiple sources. Caution should be exercised in using it in the provision of clinical care. This summary normalizes information from multiple sources, and as a consequence, information in this document may materially change the coding, format and clinical context of patient data. In addition, data may be omitted in some cases. CLINICAL DECISIONS SHOULD BE BASED ON THE PRIMARY CLINICAL RECORDS. [employer] provides no warranty or guarantee of the accuracy or completeness of information in this document.
--- NOTE | 2024-09-03 21:34 | ED.VIS.GI ---
HPI <Dr. Patrick Moreno DO - Last Filed: 09/04/24 01:20> HPI - GI History of Present Illness Chief Complaint: GI Bleed Abdominal Pain/Flank Pain Onset: Weeks (2) Context: Gradual Onset Timing: Continuous Quality: Aching Location: LUQ Worsened by: - (Laying flat) Relieved by: Nothing Nausea/Vomiting/Emesis GI Symptom: Negative for Nausea or Vomiting Diarrhea/Melena/Hematochezia GI Symptom: Positive for Hematochezia; Negative for Diarrhea Associated Symptoms Associated Symptoms: Negative for Dysuria, Frequency or Hematuria Narrative Narrative: Patient presents with abdominal pain and rectal bleeding that has been getting worse over the past 2 weeks. Patient states he started having bright red rectal bleeding today. Patient states he has had left upper abdominal pain for the past 2 weeks. Patient states it is worse when he lays flat. Patient states he has been seen here multiple times for this. Patient states that he has had an upper endoscopy by Dr. White which was negative. Patient describes his pain as aching. Patient states that it is constant. Patient states nothing makes it better. Patient denies any nausea or vomiting. Patient denies any urinary complaints. [facility] <Dr. Patrick Moreno DO - Last Filed: 09/04/24 01:20> [facility] Medical History Morbid obesity with BMI of 50.0-59.9, adult GERD (gastroesophageal reflux disease) History of diverticulitis Periumbilical hernia Diverticulitis Rheumatoid arthritis History of stroke History of [place] (myocardial infarction) Anxiety and depression Morbid obesity Hypertension Diverticulitis large intestine Home Medications ?Medication ?Instructions ?Recorded ?Last Taken ?Type metoclopramide HCl 5 mg tablet 5 mg PO Q8H PRN nausea and 08/27/24 Unknown Rx (Reglan) vomiting #20 tabs Allergy/AdvReac Type Severity Reaction Status Date / Time morphine Allergy Mild Rash Verified 09/03/24 20:38 acetaminophen (From Vicodin) Allergy Rash Verified 09/03/24 20:38 codeine Allergy Anaphylaxis Verified 09/03/24 20:38 hydrocodone bitartrate (From Allergy Rash Verified 09/03/24 20:38 Vicodin) latex Allergy Swelling Verified 09/03/24 20:38 naproxen Allergy Hives Verified 09/03/24 20:38 ondansetron (From Zofran (as AdvReac Nausea Verified 09/03/24 20:38 hydrochloride)) Family History Mother Cancer Father Brain aneurysm Surgical History History of bowel resection Hx of hand surgery Hx of foot surgery Hx of arthroscopy of right knee History of tonsillectomy and adenoidectomy Hx of cholecystectomy Hx of appendectomy Social History household members: spouse Smoking Status: Never smoker alcohol intake: never substance use type: does not use ROS <Dr. Patrick Moreno DO - Last Filed: 09/04/24 01:20> ROS ED Constitutional Constitutional ED: Denies chills or fever(s) Eyes Eyes: Denies blurry vision or change in vision ENT ENT ED: Denies rhinorrhea or sore throat Cardiovascular Cardiovascular: Denies chest pain or palpitations Respiratory/Chest Respiratory/Chest: Denies cough or dyspnea Gastrointestinal Gastrointestinal: Reports abdominal pain; Denies nausea or vomiting Genitourinary Genitourinary ED: Denies dysuria or hematuria Musculoskeletal Musculoskeletal: Denies back pain or neck pain Integumentary Denies abscess or rash Neurologic Neurologic: Denies headache(s) or weakness Allergic/Immunologic Allergic/Immunologic ED: Denies mouth swelling or urticaria EXAM <Dr. Patrick Moreno DO - Last Filed: 09/04/24 01:20> Physical Exam Const Vital Signs: 09/03/24 20:37 09/04/24 00:00 09/04/24 01:44 Temperature 98.3 F Temperature Source Oral Pulse Rate 93 79 82 Respiratory Rate 16 16 16 Blood Pressure 150/83 H 110/79 Blood Pressure Mean 105 89 Pulse Ox 100 97 99 Oxygen Delivery Method Room Air Positive well nourished and well developed Constitutional Narrative: BMI is 50.7 General Appearance ED: well developed and NAD HEENT Reports moist mucous membranes Neck supple and no JVD Resp normal respiratory effort and clear to auscultation bilaterally Cardio regular rate and regular rhythm GI non-distended GI Narrative: Rectal exam showed good sphincter tone. There are no masses palpated. There are no hemorrhoids noted. There is brown stool. Palpation: soft and tender LLQ and LUQ; Negative for guarding or rebound tenderness present Neuro CN's II-XII intact bilaterally, moves all extremities and no sensory deficits noted Sensorium / Orientation: alert Motor Exam: strength 5/5 throughout Psych mental status grossly normal and thought process normal <Dr. Ruddy Spain MD - Last Filed: 09/04/24 02:53> Physical Exam Const Vital Signs: 09/03/24 20:37 09/04/24 00:00 09/04/24 01:44 Temperature 98.3 F Temperature Source Oral Pulse Rate 93 79 82 Respiratory Rate 16 16 16 Blood Pressure 150/83 H 110/79 Blood Pressure Mean 105 89 Pulse Ox 100 97 99 Oxygen Delivery Method Room Air MDM <Dr. Patrick Moreno DO - Last Filed: 09/04/24 01:20> MDM MDM Narrative Medical decision making narrative: Differential diagnosis includes but is not limited to gastritis, pancreatitis, peptic ulcer disease, diverticulitis, bowel obstruction, perforation, lower gastrointestinal bleeding, urinary tract infection, electrolyte abnormality, and anemia. A CBC will be obtained to assess for leukocytosis and anemia. Comprehensive metabolic profile will be obtained to assess for hepatic function, renal function, and electrolyte abnormality. Lipase will be obtained to assess for pancreatitis. Urinalysis will be obtained to assess for urinary tract infection and hematuria. Stool for occult blood will be obtained to assess for gastrointestinal bleeding. History & Record Review Additional record(s) reviewed:: Prior outpatient record, Prior ED visit and Prior labs Lab Data Attestation: I reviewed the patient's lab results. Lab results narrative: CBC was reviewed and was within normal limits. Comprehensive metabolic profile was reviewed and was within normal limits. Lipase was reviewed and was normal at 21. Urinalysis was reviewed. There is no evidence of urinary tract infection or hematuria. Stool occult blood was positive. Labs: Laboratory Results - last 24 hr 09/03/24 09/03/24 09/04/24 22:05 22:15 01:35 WBC 9.7 9.7 RBC 5.00 4.79 Hgb 13.2 12.8 L Hct 40.7 38.9 L MCV 81.4 81.2 MCH 26.4 L 26.7 L MCHC 32.4 32.9 RDW Std Deviation 40.9 41.3 RDW Coeff of [place] 14.0 13.9 Plt Count 356 333 MPV 9.0 8.9 Immature Gran % (Auto) 0.400 0.600 Neut % (Auto) 58.9 51.4 Lymph % (Auto) 29.3 36.9 Coke % (Auto) 8.4 7.6 Eos % (Auto) 2.4 2.8 Baso % (Auto) 0.6 0.7 Absolute Neuts (auto) 5.7 5.0 Absolute Lymphs (auto) 2.83 3.58 Nucleated RBC % 0 0 Sodium 139 Potassium 4.3 Chloride 104 Carbon Dioxide 23.8 Anion Gap 11 BUN 19 Creatinine 0.88 Estim Creat Clear Calc 144.39 Est GFR (MDRD) Non-Af 107 BUN/Creatinine Ratio 21.3 H Glucose 100 H Calcium 9.0 Total Bilirubin 0.24 AST 24 ALT 31 Alkaline Phosphatase 112 Total Protein 7.0 Albumin 3.9 Globulin 3.1 Albumin/Globulin Ratio 1.3 Lipase 21 Urine Color Yellow Urine Clarity Clear Urine pH 5.0 Ur Specific [place] 1.025 Urine Protein 30 H Urine Glucose (UA) Normal Urine Ketones Negative Urine Occult Blood 10 H Urine Nitrite Negative Urine Bilirubin Negative Urine Urobilinogen Normal Ur Leukocyte Esterase Negative Urine RBC 0-5 SEEN Urine WBC 0 SEEN Ur Squamous Epith Cells 0 SEEN Urine Bacteria 0 SEEN Urine Mucus 2+ Radiography Diagnostic Testing: Clinical Impression(s) from Imaging Studies Abdomen/Pelvis CTA 09/03/24 23:16 IMPRESSION: Prior cholecystectomy. Uncomplicated colonic diverticulosis. Surgical changes of the mid aspect of the sigmoid colon. Mild diffuse thickening of the stomach, probably gastritis. No CT evidence of active bleeding during the time of the exam. Mild diffuse spondylosis. Moderate amount of fecal residue in the large bowels. Fat containing umbilical hernia without incarceration. Bilateral fat containing inguinal hernias without incarceration. Reading Location: [place] [id number] CTA scan of the abdomen and pelvis was obtained. There is colonic diverticulosis but no evidence of diverticulitis. There is mild diffuse thickening of the stomach. There is no CT evidence of active bleeding. There is a moderate amount of feces in the large bowels. There are bilateral inguinal hernias containing fat. There is no acute abnormality noted. This was interpreted by the radiologist and was also independently reviewed by myself. Management Discussion w/another healthcare provider: Hospitalist and Clinical Services Specialist Treatment and Re-Evaluation :: Patient was given IV fluids, morphine, and Zofran. Patient was feeling better on reevaluation. Case was discussed with Dr. White. He recommended obtaining CTA of the abdomen and pelvis. He does not feel that the patient needs emergent endoscopy. Patient has an Bond score of 11. Because of this admission to the hospital is recommended. Case was discussed with the hospitalist. She recommended repeating the hemoglobin 4 hours after the initial hemoglobin. If this is unchanged, she feels the patient can be discharged home. If there is a significant drop, she will admit the patient at that point. Comments:: Bond Score for Safe Discharge After Lower GI Bleed from [email or web address] on 09/03/2024 All calculations should be rechecked by clinician prior to use RESULT SUMMARY: 11 points Bond Score () 89 % Probability of safe discharge (absence of rebleeding, blood transfusion, therapeutic intervention, 28 day readmission, or ). Discharge NOT recommended. Consider admission with further workup and resuscitation as necessary. INPUTS: Age, years ?> 1 = 40-69 Sex ?> 1 = Male Previous lower GI bleeding admission ?> 0 = No MARIE findings ?> 1 = Blood Heart rate, bpm ?> 2 = 90-109 Systolic blood pressure, mmHg ?> 2 = 130-159 Hemoglobin, g/L (g/dL) ?> 4 = 130-159 (13-15.9) <Dr. Ruddy Spain MD - Last Filed: 09/04/24 02:53> [facility] Lab Data Labs: Laboratory Results - last 24 hr 09/03/24 09/03/24 09/04/24 22:05 22:15 01:35 WBC 9.7 9.7 RBC 5.00 4.79 Hgb 13.2 12.8 L Hct 40.7 38.9 L MCV 81.4 81.2 MCH 26.4 L 26.7 L MCHC 32.4 32.9 RDW Std Deviation 40.9 41.3 RDW Coeff of [place] 14.0 13.9 Plt Count 356 333 MPV 9.0 8.9 Immature Gran % (Auto) 0.400 0.600 Neut % (Auto) 58.9 51.4 Lymph % (Auto) 29.3 36.9 Coke % (Auto) 8.4 7.6 Eos % (Auto) 2.4 2.8 Baso % (Auto) 0.6 0.7 Absolute Neuts (auto) 5.7 5.0 Absolute Lymphs (auto) 2.83 3.58 Nucleated RBC % 0 0 Sodium 139 Potassium 4.3 Chloride 104 Carbon Dioxide 23.8 Anion Gap 11 BUN 19 Creatinine 0.88 Estim Creat Clear Calc 144.39 Est GFR (MDRD) Non-Af 107 BUN/Creatinine Ratio 21.3 H Glucose 100 H Calcium 9.0 Total Bilirubin 0.24 AST 24 ALT 31 Alkaline Phosphatase 112 Total Protein 7.0 Albumin 3.9 Globulin 3.1 Albumin/Globulin Ratio 1.3 Lipase 21 Urine Color Yellow Urine Clarity Clear Urine pH 5.0 Ur Specific [place] 1.025 Urine Protein 30 H Urine Glucose (UA) Normal Urine Ketones Negative Urine Occult Blood 10 H Urine Nitrite Negative Urine Bilirubin Negative Urine Urobilinogen Normal Ur Leukocyte Esterase Negative Urine RBC 0-5 SEEN Urine WBC 0 SEEN Ur Squamous Epith Cells 0 SEEN Urine Bacteria 0 SEEN Urine Mucus 2+ Radiography Diagnostic Testing: Clinical Impression(s) from Imaging Studies Abdomen/Pelvis CTA 09/03/24 23:16 IMPRESSION: Prior cholecystectomy. Uncomplicated colonic diverticulosis. Surgical changes of the mid aspect of the sigmoid colon. Mild diffuse thickening of the stomach, probably gastritis. No CT evidence of active bleeding during the time of the exam. Mild diffuse spondylosis. Moderate amount of fecal residue in the large bowels. Fat containing umbilical hernia without incarceration. Bilateral fat containing inguinal hernias without incarceration. Reading Location: [place] [address] Treatment and Re-Evaluation Vital Sign Attestation:: Patient checked out to me pending repeat hemoglobin which is 12.8. Considering that he got a liter of fluids, his vital signs are normal without tachycardia or orthostasis, and he is ambulatory without any symptoms or issues in the ED, I think he is stable for discharge. Discussed with hospitalist who is in agreement. Patient to follow-up with GI as an outpatient. Discharge Plan Triage Chief Complaint: GI Bleed ED Provider: Patrick Moreno Dx/Rx/DC Orders Clinical Impression: Acute lower gastrointestinal bleeding, Morbid obesity, Abdominal pain, Diverticulosis Instructions: ED Lower GI Bleeding (Stable) Prescriptions: No Action metoclopramide HCl [Reglan] 5 mg tablet 5 mg PO Q8H PRN (Reason: nausea and vomiting) Qty: 20 0RF Primary Care Provider: Care Physician,No Primary Referrals: Friend,Logan, [Med Staff - Active Staff] - As soon as possible Print Language: [place] Disposition Disposition: Home, Self Care
[2024-09-03 22:10] LABS: Absolute Lymphocyte Count 2.83 X10^3/uL (0.83-4.51); Absolute Neutrophil Count 5.7 X10^3/uL (2.0-7.7); Basophil# 0.06 X10^3/uL; Basophil% 0.6 % (0-1); Eosinophil# 0.23 X10^3/uL; Eosinophils% 2.4 % (0-5); Hematocrit 40.7 % (40-54); Hemoglobin 13.2 g/dL (13.0-16.5); Lymphocyte # 2.83 X10^3/ul (0.83-4.51); Lymphocyte % 29.3 % (19-41); Mean Corp Hgb Conc 32.4 g/dL (32-36); Mean Corpuscular Hgb 26.4 pg (27.0-32.0); Mean Corpuscular Volume 81.4 fL (80-94); Monocyte# 0.81 X10^3/uL; Monocyte% 8.4 % (0-10); NRBC Flagged by Analyzer 0 % (0-5); Neutrophil % 58.9 % (47-70); Platelet Count 356 K/mm3 (150-450); RBC Distribution Width SD 40.9 fl (35.1-43.9); White Blood Count 9.7 K/mm3 (4.4-11.0)
[2024-09-03] MEDS: Metoclopramide 10 MG/2 ML Vial IV (22:13)
[2024-09-03] MEDS: 0.9% Normal Saline (1000mL) 1,000 ML 999 ML IV (22:13)
[2024-09-03] MEDS: fentaNYL 100 MCG/2 ML Ampul 25 MCG IV (22:14)
[2024-09-03 22:22] LABS: Bacteria 0 SEEN /hpf (None Seen); Squamous Epithelial Cells - UA 0 SEEN /hpf (0-5); White Blood Cells 0 SEEN /hpf (0-5)
[2024-09-03 22:26] LABS: Color, Urine Yellow (Yellow); Glucose, Dipstick Normal (Normal); Ketone-Dipstick Negative (Negative); Leukocyte Esterase-Dipstick Negative /ul (Negative); Nitrite-Dipstick Negative (Negative); Occult Blood-Urine 10 /ul (Negative); Protein-Dipstick 30 mg/dl (Negative); Specific Gravity, Urine 1.025 (1.002-1.030); Urine Bilirubin Dipstick Negative (Negative); Urine Clarity Clear (Clear); Urine Urobilinogen Normal (Normal)
[2024-09-03 22:38] LABS: ALB/GLOB Ratio 1.3 RATIO (0.9-2.4); AST(SGOT) 24 U/L (<=37); Alanine Aminotransfer ALT/SGPT 31 U/L (<=46); Albumin, Serum 3.9 g/dL (3.5-5.0); Alkaline Phosphatase 112 U/L (40-129); Anion Gap 11 (5-15); BUN 19 mg/dL (4-19); BUN/Creat Ratio 21.3 RATIO (10-20); Carbon Dioxide 23.8 mmol/L (21.0-32.0); Chloride 104 mmol/L (98-108); Creatinine, Serum 0.88 mg/dL (0.70-1.20); EST Glomerular Filtration Rate 107 (>60); Estimated Creatinine Clearance 144.39 ml/min (50-250); Globulin 3.1 g/dL (2.2-4.2); Glucose 100 mg/dL (70-99); Lipase 21 U/L (13-75); Potassium 4.3 mmol/L (3.3-5.1); Sodium Level 139 mmol/L (133-145); Total Bilirubin 0.24 mg/dL (0.00-1.30)
[2024-09-03 22:52] LABS: Mucous, Urine 2+ /hpf (<or=2+); Red Blood Cells-Urine 0-5 SEEN /hpf (0-5)
--- NOTE | 2024-09-03 23:16 | CT_ITS ---
PROCEDURE: CTA ABD/PELVIS W/WO CONTRAST 09/03/2024 REASON FOR EXAM: GASTROINTESTINAL BLEEDING TECHNIQUE: CTA ABD/PELVIS W/WO CONTRAST multiplanar and multisequence images were obtained. CONTRAST: Isovue 370 VOLUME: 100 mL One or more dose reduction techniques were used (e.g., Automated exposure control, adjustment of the mA and/or kV according to patient size, use of iterative reconstruction technique). RADIATION DOSE SUMMARY: CTDlvol: 24.18 mGy DLP: 1437 mGycm COMPARISON: 08/27/2024. FINDINGS: Prior cholecystectomy. Uncomplicated colonic diverticulosis. Surgical changes of the mid aspect of the sigmoid colon. Mild diffuse thickening of the stomach, probably gastritis. No CT evidence of active bleeding during the time of the exam. Mild diffuse spondylosis. Moderate amount of fecal residue in the large bowels. Fat containing umbilical hernia without incarceration. Bilateral fat containing inguinal hernias without incarceration. The visualized lung bases are unremarkable. Normal liver. Normal extrahepatic biliary system. Normal spleen. Normal pancreas. Normal bilateral adrenal glands. Normal size of the right kidney. There is no right renal mass. There are no right renal calculi. There is no right hydronephrosis. Normal visualized right ureter. Normal size of the left kidney. There is no left renal mass. There are no left renal calculi. There is no left hydronephrosis. Normal visualized left ureter. Normal small intestine. There is no demonstrated peritoneal fluid. Normal abdominal aorta. Normal inferior vena cava. Normal retroperitoneum. Normal urinary bladder. There is no pelvic mass lesion or lymphadenopathy. There is no pelvic fluid. CT/CTA Abd/Pelvis W/WO Contrast IMPRESSION: Prior cholecystectomy. Uncomplicated colonic diverticulosis. Surgical changes of the mid aspect of the sigmoid colon. Mild diffuse thickening of the stomach, probably gastritis. No CT evidence of active bleeding during the time of the exam. Mild diffuse spondylosis. Moderate amount of fecal residue in the large bowels. Fat containing umbilical hernia without incarceration. Bilateral fat containing inguinal hernias without incarceration. Reading Location: [place] [id number]
[2024-09-04] VITALS: PULSE 79; RESP 16; O2SAT 97
[2024-09-04] MEDS: fentaNYL 100 MCG/2 ML Ampul 25 MCG IV (01:17)
[2024-09-04 01:43] LABS: Absolute Lymphocyte Count 3.58 X10^3/uL (0.83-4.51); Basophil# 0.07 X10^3/uL; Basophil% 0.7 % (0-1); Eosinophil# 0.27 X10^3/uL; Eosinophils% 2.8 % (0-5); Hematocrit 38.9 % (40-54); Hemoglobin 12.8 g/dL (13.0-16.5); Lymphocyte # 3.58 X10^3/ul (0.83-4.51); Lymphocyte % 36.9 % (19-41); Mean Corp Hgb Conc 32.9 g/dL (32-36); Mean Corpuscular Hgb 26.7 pg (27.0-32.0); Mean Corpuscular Volume 81.2 fL (80-94); Mean Platelet Vol. 8.9 fl (6.2-12.0); Monocyte# 0.74 X10^3/uL; Monocyte% 7.6 % (0-10); NRBC Flagged by Analyzer 0 % (0-5); Neutrophil # 4.97 X10^3/uL (2.7-7.7); Neutrophil % 51.4 % (47-70); Platelet Count 333 K/mm3 (150-450); RBC Distribution Width CV 13.9 % (11.6-14.6); RBC Distribution Width SD 41.3 fl (35.1-43.9); Red Blood Count 4.79 M/mm3 (4.6-6.2); White Blood Count 9.7 K/mm3 (4.4-11.0)
[2024-09-04 01:44] VITALS: BP 110/79; PULSE 82; RESP 16; O2SAT 99
--- NOTE | 2024-09-04 02:54 | ED.RN ---
This nurse updated PT on POC. PT unhappy and frustrated nothing being done. He did not want to wait for discharge instructions. allowed this nurse to remove saline lock and left with family member. Doctor updated.
== END 2024-09-04 02:57 | disposition home or self-care (01) ==
PROVIDERS: Emergency Provider Emergency Medicine; Visit Provider Emergency Medicine
DX: K92.2 Gastrointestinal hemorrhage, unspecified (principal); Z68.43 Body mass index [BMI] 50.0-59.9, adult; E66.01 Morbid (severe) obesity due to excess calories; R10.12 Left upper quadrant pain; K40.20 Bilateral inguinal hernia, without obstruction or gangrene, not specified as recurrent; Z87.19 Personal history of other diseases of the digestive system; Z90.49 Acquired absence of other specified parts of digestive tract
CPT/HCPCS: 74174; 80053; 81001; 82274; 83690; 85025; 96361; 96374; 96375; 96376; 99283; Q9967; A4216

== ENCOUNTER 2024-09-15 18:51 | Emergency (ER) | payer MEDICARE, MEDICAID, SELFPAY ==
[2024-09-15 18:51] VITALS: BP 163/86; PULSE 103; RESP 18; TEMP 36.6; O2SAT 97; BMI 51.0
[2024-09-15 20:44] VITALS: BP 169/82; PULSE 90; RESP 16; O2SAT 100
[2024-09-15 20:47] LABS: Absolute Lymphocyte Count 3.78 X10^3/uL (0.83-4.51); Absolute Neutrophil Count 6.7 X10^3/uL (2.0-7.7); Basophil# 0.06 X10^3/uL; Basophil% 0.5 % (0-1); Eosinophil# 0.29 X10^3/uL; Eosinophils% 2.5 % (0-5); Hemoglobin 13.7 g/dL (13.0-16.5); Lymphocyte # 3.78 X10^3/ul (0.83-4.51); Lymphocyte % 32.4 % (19-41); Mean Corp Hgb Conc 32.6 g/dL (32-36); Mean Corpuscular Hgb 26.6 pg (27.0-32.0); Mean Corpuscular Volume 81.4 fL (80-94); Mean Platelet Vol. 9.1 fl (6.2-12.0); Monocyte# 0.77 X10^3/uL; Monocyte% 6.6 % (0-10); NRBC Flagged by Analyzer 0 % (0-5); Neutrophil # 6.73 X10^3/uL (2.7-7.7); Neutrophil % 57.7 % (47-70); Platelet Count 369 K/mm3 (150-450); RBC Distribution Width CV 13.9 % (11.6-14.6); RBC Distribution Width SD 40.8 fl (35.1-43.9); Red Blood Count 5.16 M/mm3 (4.6-6.2); White Blood Count 11.7 K/mm3 (4.4-11.0)
[2024-09-15 21:07] LABS: ALB/GLOB Ratio 1.2 RATIO (0.9-2.4); AST(SGOT) 23 U/L (<=37); Alanine Aminotransfer ALT/SGPT 32 U/L (<=46); Alkaline Phosphatase 125 U/L (40-129); Anion Gap 12 (5-15); BUN 14 mg/dL (4-19); BUN/Creat Ratio 15.4 RATIO (10-20); Calcium,Total 9.2 mg/dL (7.6-11.0); Carbon Dioxide 24.7 mmol/L (21.0-32.0); Chloride 102 mmol/L (98-108); Creatinine, Serum 0.92 mg/dL (0.70-1.20); EST Glomerular Filtration Rate 104 (>60); Estimated Creatinine Clearance 138.73 ml/min (50-250); Globulin 3.3 g/dL (2.2-4.2); Glucose 97 mg/dL (70-99); Lipase 19 U/L (13-75); Protein, Total 7.4 g/dL (5.9-8.4); Sodium Level 139 mmol/L (133-145); Total Bilirubin 0.23 mg/dL (0.00-1.30)
[2024-09-15 21:18] VITALS: BP 164/100; PULSE 80; RESP 16; O2SAT 98
[2024-09-15] MEDS: Lidocaine 2% Viscous15 ML UDC 15 ML PO (22:54)
[2024-09-15] MEDS: Mag Hydrox/Al Hydrox/Simeth 30 ML UDC PO (22:55)
[2024-09-15] MEDS: Pantoprazole Sodium 40 MG in 0.9% Normal Saline (100mL MB+) 100 ML 300 MG IV (23:02)
[2024-09-15] MEDS: HYDROmorphone 1 MG/ML Syringe IV (23:30)
--- NOTE | 2024-09-15 23:39 | ED.VIS.GI ---
HPI HPI - GI History of Present Illness Chief Complaint: Abd Pain Informant: patient Narrative Narrative: Patient is a 49-year-old male with history of multiple abdominal surgeries including open appendectomy, cholecystectomy, bowel resection, diverticulitis, gastric ulcers, stroke and MA presenting for continued abdominal pain. Patient states that he has been having ongoing abdominal pain in his left upper quadrant that feels like someone punched him in the stomach. He saw Dr. Andersen today who scheduled endoscopy for 10/04. Patient does not feel he can wait this long. He has had significant nausea and vomiting and feels that he can even smell food without vomiting. He denies any significant changes pain with eating and states it is constant. Today he also developed pain in his right lower abdomen. Patient tells me that he cannot leave the ER until he gets answers and knows what is going on with his abdomen. He states he has multiple abdominal hernias however those are not painful. He states he has multiple soft bowel movements a day which is been going on for 2 to 3 months. States he was scoped by Dr. White earlier this year. He has he is not on any antacid medication. Chart review shows the patient has had multiple admissions and ER visits over the past few months for similar complaints. He was most recently seen on 09/03 for hematochezia. At that time his H&H was stable and he was given outpatient follow-up. He did have a CTA after discussion with GI. He was found to have diffuse thickening of the stomach probably gastritis. He had an EGD on 05/03/2024 which showed normal esophagus but nonbleeding gastric ulcers. Histology was negative for H. pylori. There was also nonbleeding duodenal ulcers present. Patient was instructed to take pantoprazole for 6 months and sucralfate for 1 month. It is unclear if he still on these medications. He had an admission for diverticulitis and abdominal pain in June. Patient has had 8 abdominal CTs this year (one of them was CTA) as well as 2 abdominal x-rays for various abdominal complaints. [facility] Medical History Morbid obesity with BMI of 50.0-59.9, adult GERD (gastroesophageal reflux disease) History of diverticulitis Periumbilical hernia Diverticulitis Rheumatoid arthritis History of stroke History of MA (myocardial infarction) Anxiety and depression Morbid obesity Hypertension Diverticulitis large intestine Home Medications ?Medication ?Instructions ?Recorded ?Last Taken ?Type metoclopramide HCl 5 mg tablet 5 mg PO Q8H PRN nausea and 08/27/24 Unknown Rx (Reglan) vomiting #20 tabs lorazepam 0.5 mg tablet (Ativan) 0.5 mg PO TID PRN abdominal pain 09/16/24 Unknown Rx #15 tabs pantoprazole 40 mg tablet,delayed 40 mg PO DAILY #30 tabs 09/16/24 Unknown Rx release (Protonix) sucralfate 1 gram tablet (Carafate) 1 g PO TID #30 tabs 09/16/24 Unknown Rx Allergy/AdvReac Type Severity Reaction Status Date / Time morphine Allergy Mild Rash Verified 09/15/24 18:55 acetaminophen (From Vicodin) Allergy Rash Verified 09/15/24 18:55 codeine Allergy Anaphylaxis Verified 09/15/24 18:55 hydrocodone bitartrate (From Allergy Rash Verified 09/15/24 18:55 Vicodin) latex Allergy Swelling Verified 09/15/24 18:55 naproxen Allergy Hives Verified 09/15/24 18:55 ondansetron (From Zofran (as AdvReac Nausea Verified 09/15/24 18:55 hydrochloride)) Family History Mother Cancer Father Brain aneurysm Surgical History History of bowel resection Hx of hand surgery Hx of foot surgery Hx of arthroscopy of right knee History of tonsillectomy and adenoidectomy Hx of cholecystectomy Hx of appendectomy Social History household members: spouse Smoking Status: Never smoker alcohol intake: never substance use type: does not use ROS ROS ED Constitutional Constitutional ED: Reports chills and sweats; Denies fever(s) Respiratory/Chest Respiratory/Chest: Denies cough or dyspnea Gastrointestinal Gastrointestinal: Reports abdominal pain, diarrhea, nausea and vomiting Genitourinary Genitourinary ED: Denies dysuria or hematuria Musculoskeletal Musculoskeletal: Denies arthralgias or back pain Integumentary Denies rash Neurologic Neurologic: Denies weakness Hematologic/Lymphatic Hematologic/Lymphatic: Denies easy bleeding or easy bruising EXAM Physical Exam Const Vital Signs: 09/15/24 18:51 09/15/24 20:44 09/15/24 21:18 Temperature 97.9 F Temperature Source Temporal Pulse Rate 103 H 90 80 Respiratory Rate 18 16 16 Blood Pressure 163/86 H 169/82 H 164/100 H Blood Pressure Mean 111 111 121 Pulse Ox 97 100 98 Oxygen Delivery Method Room Air Room Air Room Air 09/16/24 00:00 Temperature Temperature Source Pulse Rate 82 Respiratory Rate 22 H Blood Pressure 151/93 H Blood Pressure Mean 112 Pulse Ox 100 Oxygen Delivery Method Room Air Positive well nourished, well developed and obese General Appearance ED: well developed and NAD; Negative for pallor Nutritional Appearance: obese HEENT Reports moist mucous membranes Eyes General Eye ED: Negative for scleral icterus Neck supple and no JVD Resp normal respiratory effort and clear to auscultation bilaterally Cardio regular rate, regular rhythm and no murmurs GI GI Narrative: Protuberant abdomen. Multiple surgical scars present. No incarcerated or strangulated hernias appreciated. Tenderness in the left upper quadrant as well as the right mid/lower abdomen. No fluid wave appreciated. Auscultation: normoactive bowel sounds Palpation: Negative for guarding or rigid Back/Spine no CVA tenderness Extremity full ROM General Extremety ED: Negative for edema General Extremity: Negative for edema Neuro moves all extremities Sensorium / Orientation: alert Motor Exam: Negative for general weakness Psych Mood & Affect: anxious Skin no wounds General Skin Exam: Negative for jaundice or pallor MDM MDM MDM Narrative Medical decision making narrative: Patient evaluated for recurrent abdominal pain. Chart review shows that patient had endoscopy in April of this year which showed multiple nonbleeding ulcers. He ran out of his Protonix and has not been taking it. He is also concerned that it was actually making his symptoms worse. He did not feel that the Carafate was helpful either. After discussion however he is having the same symptoms that he thought were from the Protonix despite being off the Protonix for a month and a half. I suspect he has worsening gastritis/peptic ulcer disease which is what is causing his presentation. He is given IV Dilaudid, GI cocktail and Pepcid in the emergency room. He has normal/stable labs. His white blood cell count is a minimally elevated 11.7. Do not appreciate any vomiting while in the emergency room. Kidneys are at his baseline. His normal BUN. His hemoglobin is actually mildly uptrending. This is not suggestive of any active GI bleeding. The symptoms are the same that he has had for months now and he has had multiple CTs over the past few months I do not think he needs repeat imaging at this time. Patient is agreeable with this. Will reach out to Dr. White to see if we can arrange for closer outpatient GI follow-up. It is unclear why he the patient is following up with Dr. Andersen instead of Dr. White since he saw Dr. White earlier this year. Spoke with Dr. White. He will try to get the patient expedited outpatient GI follow-up. Will start him on Ativan in addition to the super fate and Carafate to try to further help with his abdominal pain. Will not send a prescription for opioids as this likely is worsening or at least not helping his presentation. Patient is given 1 additional dose of oxycodone prior to discharge however for his acute pain. Discussed at this time patient's laboratory findings are stable, vital signs are stable and his abdominal exam while he does have pain this is seems chronic and stable and he does not require admission at this time. Lab Data Attestation: I reviewed the patient's lab results. Labs: Laboratory Results - last 24 hr 09/15/24 20:42 WBC 11.7 H RBC 5.16 Hgb 13.7 Hct 42.0 MCV 81.4 MCH 26.6 L MCHC 32.6 RDW Std Deviation 40.8 RDW Coeff of Mirlande 13.9 Plt Count 369 MPV 9.1 Immature Gran % (Auto) 0.300 Neut % (Auto) 57.7 Lymph % (Auto) 32.4 Cameron % (Auto) 6.6 Eos % (Auto) 2.5 Baso % (Auto) 0.5 Absolute Neuts (auto) 6.7 Absolute Lymphs (auto) 3.78 Nucleated RBC % 0 Sodium 139 Potassium 4.0 Chloride 102 Carbon Dioxide 24.7 Anion Gap 12 BUN 14 Creatinine 0.92 Estim Creat Clear Calc 138.73 Est GFR (MDRD) Non-Af 104 BUN/Creatinine Ratio 15.4 Glucose 97 Calcium 9.2 Total Bilirubin 0.23 AST 23 ALT 32 Alkaline Phosphatase 125 Total Protein 7.4 Albumin 4.0 Globulin 3.3 Albumin/Globulin Ratio 1.2 Lipase 19 Rhythm Strip Rhythm Strip: Sinus Rhythm Rate: 76 Ectopy: None EKG Initial EKG: Attestation: I personally reviewed and interpreted this EKG as follows: Interpretation: Sinus Rhythm Comments: Normal sinus rhythm rate of 76 bpm Normal axis Normal intervals Normal ST segments Low voltage QRS Prior EKG tracings: available for review Prior: Unchanged Management Discussion w/another healthcare provider: Developer Architect Discharge Plan Triage Chief Complaint: Abd Pain ED Provider: Lashonda Sharma Dx/Rx/DC Orders Clinical Impression: Abdominal pain, History of peptic ulcer disease Instructions: ED Gastritis Ulcer No Abx Prescriptions: New pantoprazole [Protonix] 40 mg tablet,delayed release (DR/EC) 40 mg PO DAILY Qty: 30 0RF sucralfate [Carafate] 1 gram tablet 1 g PO TID Qty: 30 0RF lorazepam [Ativan] 0.5 mg tablet 0.5 mg PO TID PRN (Reason: abdominal pain) Qty: 15 0RF No Action metoclopramide HCl [Reglan] 5 mg tablet 5 mg PO Q8H PRN (Reason: nausea and vomiting) Qty: 20 0RF Primary Care Provider: Care Physician,No Primary Referrals: Rocky Carter MD [Non-Staff] - Logan White DO [Med Staff - Active Staff] - Jason Andersen MD [Non-Staff] - Care Physician,No Primary [Primary Care Provider] - Activity Restrictions/Additional Instructions: Your lab work today was stable. Your white blood cell count is only minimally elevated. Your lab work for your liver, pancreas, kidneys and electrolytes are all normal. You do not have any signs of worsening anemia or active blood loss based on your lab work. Your EKG was normal and not consistent with a heart attack. You need to continue to follow-up with your GI specialist. I did speak with Dr. White. He will try to get you in for an expedited evaluation and endoscopy. Call his office tomorrow let him know you are seen in the ER and Dr. White said he wanted to get you in a soon as possible. Print Language: Syriac Disposition Disposition: Home, Self Care Discharge Date/Time: 09/16/24 01:46
[2024-09-16] VITALS: BP 151/93; PULSE 82; RESP 22; O2SAT 100
--- NOTE | 2024-09-16 06:07 | ED.RN ---
See downtime charting.
== END 2024-09-16 01:46 | disposition home or self-care (01) ==
PROVIDERS: Emergency Provider Emergency Medicine; Visit Provider Emergency Medicine
DX: R10.9 Unspecified abdominal pain (principal); R11.2 Nausea with vomiting, unspecified; K25.9 Gastric ulcer, unspecified as acute or chronic, without hemorrhage or perforation; I10 Essential (primary) hypertension; K22.10 Ulcer of esophagus without bleeding; K26.9 Duodenal ulcer, unspecified as acute or chronic, without hemorrhage or perforation; Z90.49 Acquired absence of other specified parts of digestive tract; Z87.19 Personal history of other diseases of the digestive system; I25.2 Old myocardial infarction; Z86.73 Personal history of transient ischemic attack (TIA), and cerebral infarction without residual deficits; Z87.11 Personal history of peptic ulcer disease
CPT/HCPCS: 80053; 83690; 85025; 93005; 96361; 96374; 96375; 99283; A4216

== ENCOUNTER 2024-09-22 08:31 | Day surgery (SDC) | payer MEDICARE, MEDICAID, SELFPAY ==
--- NOTE | 2024-09-20 16:20 | PAT.ANESEVAL ---
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 When Was Last Pacemaker Check QUESTION #4 FULL TEXT: You/Your Family Experience fever (hyperthermia) with Anesthesia Last Oral Intake Last Oral intake: Last Oral Intake NPO since Meds taken in AM with sips of water? Meds patient instructed to take am of surgery PONV PONV - automobile or truck rental dispatcher: PONV - automobile or truck rental dispatcher Female No 09/20/24 08:34 HX of Motion Sickness No 09/20/24 08:34 HX of N/V After Surgery No 09/20/24 08:34 Non-Smoker Yes 09/20/24 08:34 Duration of Surgery greater No 09/20/24 08:34 than 60 minutes Number of Risk Factors 1 09/20/24 08:34 PONV Score Low Risk 09/20/24 08:34 Height & Weight Height & Weight: Anesthesia: Height & Weight Height 5 ft 7 in 09/15/24 18:51 Respiratory Assessment Respiratory Assessment - automobile or truck rental dispatcher: Respiratory Tract Infection Hx - automobile or truck rental dispatcher Hx Respiratory Tract Infection No 09/20/24 08:34 STOP Sleep Apnea STOP Sleep Apnea - automobile or truck rental dispatcher: STOP Sleep Apnea - automobile or truck rental dispatcher Hx Hypertension No 09/20/24 08:34 Hx Sleep Apnea No 09/20/24 08:34 CPAP BIPAP Do you snore loudly (louder No 09/20/24 08:34 than talking or can be heard Do you often feel tired/ No 09/20/24 08:34 fatigued/ sleepy during daytime? Has anyone observed you stop No 09/20/24 08:34 breathing during sleep? STOP Results Negative 09/20/24 08:34 QUESTION #5 FULL TEXT : Do you snore loudly (louder than talking or can be heard through closed doors)? 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 Specify any problems Hx of Preganancy in last 3 N/A 09/20/24 08:34 Months Nurse Filling Out Transfusion [id number] 09/20/24 08:34 & Questions: Date: 09/20/24 09/20/24 08:34 Time: 08:36 09/20/24 08:34 Patient unable to answer at this time (ie. confused, unrespo /Reproduction History /Reproductive History - automobile or truck rental dispatcher: /Reproductive Hx- automobile or truck rental dispatcher Hx Now Gestational Age (in weeks): EDC: Hx Hx Para Hx Section SAB PFSH Medical History Non-smoker Diverticulitis Rheumatoid arthritis Morbid obesity with BMI of 50.0-59.9, adult GERD (gastroesophageal reflux disease) History of diverticulitis Periumbilical hernia History of stroke History of [place] (myocardial infarction) Anxiety and depression Morbid obesity Hypertension Diverticulitis large intestine Home Medications ?Medication ?Instructions ?Recorded ?Last Taken ?Type metoclopramide HCl 5 mg tablet 5 mg PO Q8H PRN nausea and 08/27/24 Unknown Rx (Reglan) vomiting #20 tabs lorazepam 0.5 mg tablet (Ativan) 0.5 mg PO TID PRN abdominal pain 09/16/24 Unknown Rx #15 tabs pantoprazole 40 mg tablet,delayed 40 mg PO DAILY #30 tabs 09/16/24 Unknown Rx release (Protonix) sucralfate 1 gram tablet (Carafate) 1 g PO TID #30 tabs 09/16/24 Unknown Rx dicyclomine 10 mg capsule 10 mg PO BID #30 caps 09/17/24 Unknown Rx Allergy/AdvReac Type Severity Reaction Status Date / Time morphine Allergy Mild Rash Verified 09/20/24 08:33 codeine Allergy Anaphylaxis Verified 09/20/24 08:33 hydrocodone bitartrate (From Allergy Rash Verified 09/20/24 08:33 Vicodin) latex Allergy Swelling Verified 09/20/24 08:33 naproxen Allergy Hives Verified 09/20/24 08:33 ondansetron (From Zofran (as AdvReac Nausea Verified 09/20/24 08:33 hydrochloride)) Family History Mother Cancer Father Brain aneurysm Surgical History History of bowel resection Hx of hand surgery Hx of foot surgery Hx of arthroscopy of right knee History of tonsillectomy and adenoidectomy Hx of cholecystectomy Hx of appendectomy Social History household members: spouse Smoking Status: Never smoker alcohol intake: never substance use type: does not use Audit: Pertinent Findings Pertinent Findings EKG Perinent findings: September 15, 2024. Normal sinus rhythm. Echo (EF%) pertinent findings: May 03, 2024. EF is 65%. No aortic stenosis. Recommendation Anesthesia Recommendation Anesthesia recommendation: OPTIMIZED for anesthesia
[2024-09-22] VITALS (9 sets, daily range): BP systolic 108–124; BP diastolic 57–78; PULSE 69–79; RESP 16–18; TEMP 36.7–36.9; O2SAT 92–96; BMI 50.5
--- NOTE | 2024-09-22 09:14 | HP.PCM_ITS ---
HPI - General General Date of Admission: 09/22/24 Date of Service: 09/22/24 Chief Complaint: Diverticulitis and lower GI bleed HPI Narrative CHRIS LOPEZ, is a 49 M who presents with the Chief Complaint: abdominal pain BGI established while in the hospital Apr 2024 with gastric and duodenal ulcers - Normal esophagus. - Non-bleeding gastric ulcers with no stigmata of bleeding. Biopsied. Ulcers are likely secondary to H. pylori. Await the histology and MEGHAN test. - Non-bleeding duodenal ulcer with no stigmata of bleeding. PMHx of sigmoid diverticulitis requiring colon resection in 2018. [facility] admission 07.02.24 for acute sigmoid diverticulitis. Treated with cipro/flagyl. Discharged OV 07.14.24 Pt continues to have severe abdominal pain since his discharge. He is having urgent loose stools. He is nauseous and unable to eat anything. Pt is u pset that he was discharged from the hospital so soon. He requests that he be re admitted today. Advised if he feels his pain is uncontrollable he should present to the ED. He will be scheduled for endoscopy [facility] ED 07.14.24 [facility] ED 5 [facility] ED 6.09.15 [facility] ED 6 OV 09.17.24 Pt here today for continues issues with generalized abd pain, nausea, vomiting, constipation, diarrhea and blood in his stools. Pt has had these symptoms for years since his colon resection in 2018. He was seen in the ED on numerous occasions since his last . Most recently he went to the ED yesterday and was sent home for GI f/u. [facility] Medical History Non-smoker Diverticulitis Rheumatoid arthritis Morbid obesity with BMI of 50.0-59.9, adult GERD (gastroesophageal reflux disease) History of diverticulitis Periumbilical hernia History of stroke History of [place] (myocardial infarction) Anxiety and depression Morbid obesity Hypertension Diverticulitis large intestine Home Medications ?Medication ?Instructions ?Recorded ?Last Taken ?Type metoclopramide HCl 5 mg tablet 5 mg PO Q8H PRN nausea and 08/27/24 Unknown Rx (Reglan) vomiting #20 tabs lorazepam 0.5 mg tablet (Ativan) 0.5 mg PO TID PRN abd ominal pain 09/16/24 Unknown Rx #15 tabs pantoprazole 40 mg tablet,delayed 40 mg PO DAILY #30 t abs 09/16/24 Unknown Rx release (Protonix) sucralfate 1 gram tablet (Carafate) 1 g PO TID #30 tab s 09/16/24 Unknown Rx dicyclomine 10 mg capsule 10 mg PO BID #30 caps Unknown Rx Allergy/AdvReac Type Severity Reaction Status Date / Time morphine Allergy Mild Rash Verified 09/20/24 08:33 codeine Allergy Anaphylaxis Verified 09/20/24 08:33 hydrocodone bitartrate (From Allergy Rash Verified 09/20/24 08:33 Vicodin) latex Allergy Swelling Verified 09/20/24 08:33 naproxen Allergy Hives Verified 09/20/24 08:33 ondansetron (From Zofran (as AdvReac Nausea Verified 09/20/24 08:33 hydrochloride)) Family History Mother Cancer Father Brain aneurysm Surgical History History of bowel resection Hx of hand surgery Hx of foot surgery Hx of arthroscopy of right knee History of tonsillectomy and adenoidectomy Hx of cholecystectomy Hx of appendectomy Social History household members: spouse Smoking Status: Never smoker alcohol intake: never substance use type: does not use ROS Constitutional Constitutional: Denies fatigue, fever(s), poor appetite, weight gain or weight loss Gastrointestinal Gastrointestinal: Denies belching, bloating, change in bowel habits, change in stool character, chewing difficulty, coffee ground emesis, constipation, crampin g, diarrhea, dyspepsia, dysphagia, early satiety, excessive flatus, fecal incontinence, heartburn, hematemesis, hematochezia, hemorrhoids, loose stools, melena, nausea, odynophagia, rectal bleeding, tenesmus, vomiting or weight changes Physical Exam Const alert, oriented x3, no apparent distress and healthy appearing General Appearance: cooperative GI normal to inspection, nondistended, normoactive bowel sounds, soft to palpation, non-tender and non-distended Percussion: normal to percussion Rectal Exam: deferred Assessment & Plan Assessment/Plan (1) Blood in stool: (2) History of peptic ulcer disease: (3) Abdominal pain: (4) Sigmoid diverticulitis: PLAN: Assessment and Plan Assessment and Plan (1) History of peptic ulcer disease: Status: Acute Plan: Chris is a 49 yo male pt here today for f/u after ED visit for continued abd pain, blood in his stool, constipation, diarrhea and nausea. Pt has a PMHx of diverticulitis s/p resection in 2019 and peptic ulcer disease. Recent work up in the ED was unremarkable. CBC and CMP wnl. CT abd/pelvis from August with no acute processes. Vitals stable. He will undergo EGD and colonoscopy for assessment of his symptoms. -EGD -Colonoscopy (2) Abdominal pain: Status: Acute (3) GERD (gastroesophageal reflux disease): Status: Acute Qualifiers: Esophagitis presence: esophagitis presence not specified Qualified Code(s): K21.9 - Gastro-esophageal reflux disease without esophagitis (4) Blood in stool: Status: Acute Medications: New dicyclomine 10 mg PO BID 30 caps 0RF
[2024-09-22] MEDS: Lactated Ringers 1,000 ML 15 ML IV (09:48)
--- NOTE | 2024-09-22 10:15 | EGD_PTH ---
PATIENT: BARRETT LOPEZ LOC: [facility] U#:[id number] AGE/SX: 49/M ROOM: RE09/22/[address]: Dr. Logan White DO : 1975 BED: DIS: 09/22/2024 SPEC #: [id number] RECD: 09/22/24 13:14 STATUS: MARIO ALBERTO LEI #: [id number] CHUY: 09/22/24 10:[address]: Logan White DEPT: SURGICAL PATHOLOGY RECD BY: Sonu Carrington ENTERED: 09/22/24 14:42 SP TYPE: EGD BIOPSY REGINA DR: Pushpa Primary Care Phys Tissues: A - Esophagus, NOS Procedures: Surgery Specimen Level IV HEADER OPERATION: Colonoscopy, EGD biopsy PRE-OP DIAGNOSIS: History of peptic ulcer disease, abdominal pain, GERD, blood in stool TISSUE SUBMITTED: A- Distal esophagus biopsy MICROSCOPIC DIAGNOSIS A. Distal esophagus, biopsy: - Scant benign squamous mucosa. - Columnar mucosa negative for goblet cell metaplasia. - Negative for dysplasia. MICROSCOPIC DESCRIPTION Slides are reviewed. GROSS DESCRIPTION A. Received in fixative is one container labeled with the patient's name and designated Distal esophagus biopsy. The specimen consists of three irregular fragments of light bronson soft tissue that in aggregate measure 0.4 to 0.5 cm. The specimen is totally submitted in one cassette. DHAVAL/ 09/22/2024 CPT:40795
--- NOTE | 2024-09-22 10:22 | PRE.ANES_ITS ---
ASA Classification* ASA Classification ASA Classification: 3 Assessment & Plan Anesthesia* Anesthesia Assessment Anesthesia Assessment: Discussed sedation and/or anesthesia options, risks, benefits, and alternatives with patient/parents/legal guardian/POA. Questions invited. The patient/parents/legal guardian/POA seems to understand and agrees to proceed with anesthesia plan. Reviewed the physical assessment, medical history, allergy history and patient home medications list prior to surgery/procedure/anesthetic and documented any changes. Performed airway and anesthesia risk assessments. Anesthesia Type Anesthesia Type: MAC (Patient states Mik makes him nauseated. Only Reglan works for nausea prevention.) History Source History Obtained from:: Patient and Chart Anesthesia Focused Assessment* Temperature: 98.2 F Pulse Rate: 79 Blood Pressure: 111/78 Respiratory Rate: 16 Pulse Ox: 96 Oxygen Delivery Method: Room Air Airway Assessment Mouth opens: >3 cm Mallampati Score: III Teeth Condition: Intact Neck Range of motion (ROM): Limited ROM (Somewhat Decreased) Labs Anesthesia Preop lab: CBC WBC 11.7 K/mm3 (4.4-11.0) H 09/15/24 20:42 5 RBC 5.16 M/mm3 (4.6-6.2) 09/15/24 20:42 09/15/24 Hgb 13.7 g/dL (13.0-16.5) 09/15/24 20:42 09/15/24 Hct 42.0 % (40-54) 09/15/24 20:42 09/15/24 Plt Count 369 K/mm3 (150-450) 09/15/24 20:42 09/15/24 CHEMISTRY Potassium 4.0 mmol/L (3.3-5.1) 09/15/24 20:42 09/15/24 Sodium 139 mmol/L (133-145) 09/15/24 20:42 09/15/24 Magnesium 2.0 mg/dL (1.5-2.2) 07/02/24 03:40 07/02/24 BUN 14 mg/dL (4-19) 09/15/24 20:42 09/15/24 Creatinine 0.92 mg/dL (0.70-1.20) 09/15/24 20:42 09/15/24 Glucose 97 mg/dL (70-99) 09/15/24 20:42 09/15/24 POC Glucose 83 mg/dL (70-110) 03/10/14 20:16 03/10/14 TSH 2.090 uIU/mL (0.300-4.200) 07/02/24 03:40 06/22 04/17 COAG PT 12.6 SECONDS (11.7-14.9) 05/02/24 23:32 Pre-Assessment Diagnosis/Proposed Procedure Planned Operative Procedure(s): COLONOSCOPY, EGD Anesthesia History 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 When Was Last Pacemaker Check QUESTION #4 FULL TEXT: You/Your Family Experience fever (hyperthermia) with Anesthesia Last Oral Intake Last Oral intake: Last Oral Intake NPO since 14:00 09/22/24 09:17 Meds taken in AM with sips of No 09/22/24 09:17 water? 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: PONV - senior sql server developer Female No 09/20/24 08:34 HX of Motion Sickness No 09/20/24 08:34 HX of N/V After Surgery No 09/20/24 08:34 Non-Smoker Yes 09/20/24 08:34 Duration of Surgery greater No 09/20/24 08:34 than 60 minutes Number of Risk Factors 1 09/20/24 08:34 PONV Score Low Risk 09/20/24 08:34 Height & Weight Height & Weight: Anesthesia: Height & Weight Height 5 ft 6.93 in 09/22/24 09:17 Weight: 145.9 kg 09/22/24 09:17 Body Mass Index (BMI) 50.5 09/22/24 09:17 Respiratory Assessment Respiratory Assessment - senior sql server developer: Respiratory Tract Infection Hx - senior sql server developer Hx Respiratory Tract Infection No 09/20/24 08:34 STOP Sleep Apnea STOP Sleep Apnea - senior sql server developer: STOP Sleep Apnea - senior sql server developer Hx Hypertension No 09/20/24 08:34 Hx Sleep Apnea No 09/20/24 08:34 CPAP BIPAP Do you snore loudly (louder No 09/20/24 08:34 than talking or can be heard Do you often feel tired/ No 09/20/24 08:34 fatigued/ sleepy during daytime? Has anyone observed you stop No 09/20/24 08:34 breathing during sleep? STOP Results Negative 09/20/24 08:34 QUESTION #5 FULL TEXT : Do you snore loudly (louder than talking or can be heard through closed doors)? 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: Tobacco Use History - senior sql server developer Tobacco Use Non-smoker 08/25/21 08:12 Smoking Status Never smoker 09/20/24 08:34 Hx Tobacco Use No 09/20/24 08:34 Years Smoking Packs Smoked per Day Smoking Cessation Date was within the last 15 years Hx Smoking Cessation Date Hx Smoking Cessation Counseling Hematologic Medial History Hematologic Hx - senior sql server developer: Hematologic Medical Hx - autocad Hx of Blood Transfusion No 09/20/24 08:34 Hx of Transfusion in last 3 No 09/20/24 08:34 Months Date of Last Transfusion (if within last 3 months) Ever experience any problems No 09/20/24 08:34 with transfusion(s)? Specify any problems Hx of Preganancy in last 3 N/A 09/20/24 08:34 Months Nurse Filling Out Transfusion [email or web address] 09/20/24 08:34 & Questions: Date: 09/20/24 09/20/24 08:34 Time: 08:36 09/20/24 08:34 Patient unable to answer at this time (ie. confused, unrespo /Reproduction History /Reproductive History - senior sql server developer: /Reproductive Hx- senior sql server developer Hx Now Gestational Age (in weeks): EDC: Hx Hx Para Hx Section SAB Active Medications Active Medications: Current Medications Generic Name Dose Route Start Last Admin Trade Name Freq PRN Reason Stop Dose Admin Lactated Ringer's 1,000 mls @ 15 mls/hr 09/22/24 09:15 09/22/24 09:48 IV 15 mls/hr .Q48H LORETO Administration PFSH Medical History Non-smoker Diverticulitis Rheumatoid arthritis Morbid obesity with BMI of 50.0-59.9, adult GERD (gastroesophageal reflux disease) History of diverticulitis Periumbilical hernia History of stroke History of [place] (myocardial infarction) Anxiety and depression Morbid obesity Hypertension Diverticulitis large intestine Home Medications ?Medication ?Instructions ?Recorded ?Last Taken ?Type metoclopramide HCl 5 mg tablet 5 mg PO Q8H PRN nausea and 08/27/24 Unknown Rx (Reglan) vomiting #20 tabs lorazepam 0.5 mg tablet (Ativan) 0.5 mg PO TID PRN abd ominal pain 09/16/24 Unknown Rx #15 tabs pantoprazole 40 mg tablet,delayed 40 mg PO DAILY #30 t abs 09/16/24 Unknown Rx release (Protonix) sucralfate 1 gram tablet (Carafate) 1 g PO TID #30 tab s 09/16/24 Unknown Rx dicyclomine 10 mg capsule 10 mg PO BID #30 caps Unknown Rx Allergy/AdvReac Type Severity Reaction Status Date / Time morphine Allergy Mild Rash Verified 09/20/24 08:33 codeine Allergy Anaphylaxis Verified 09/20/24 08:33 hydrocodone bitartrate (From Allergy Rash Verified 09/20/24 08:33 Vicodin) latex Allergy Swelling Verified 09/20/24 08:33 naproxen Allergy Hives Verified 09/20/24 08:33 ondansetron (From Zofran (as AdvReac Nausea Verified 09/20/24 08:33 hydrochloride)) Family History Mother Cancer Father Brain aneurysm Surgical History History of bowel resection Hx of hand surgery Hx of foot surgery Hx of arthroscopy of right knee History of tonsillectomy and adenoidectomy Hx of cholecystectomy Hx of appendectomy Social History household members: spouse Smoking Status: Never smoker alcohol intake: never substance use type: does not use Review of Systems (Anesthesia) ROS Narrative System reviewed and no additional complaints, except as documented.
--- NOTE | 2024-09-22 11:11 | OP.EGD_ITS ---
Patient Name: Chris Mills Procedure Date: 09/22/2024 10:42 AM Date of : 1975 Age: 49 Procedure: Upper GI endoscopy Indications: Epigastric abdominal pain, Functional Dyspepsia, Follow-up of peptic ulcer Providers: Logan White DO Referring MD: No Primary Care Physician Medicines: Monitored Anesthesia Care Patient Profile: This is a 49 year old male. Refer to note in patient chart for documentation of history and physical. Patient has symptoms of chronic abdominal cramping, acute epigastric abdominal pain, chronic global abdominal pain, acute dyspepsia and acute nausea. His most recent EGD for ulcer treatment. Complications: No immediate complications. Procedure: Pre-Anesthesia Assessment: - Prior to the procedure, a History and Physical was performed, and patient medications and allergies were reviewed. The patient is competent. The risks and benefits of the procedure and the sedation options and risks were discussed with the patient. All questions were answered and informed consent was obtained. Patient identification and proposed procedure were verified by the physician in the pre-procedure area. Mental Status Examination: alert and oriented. Airway Examination: normal oropharyngeal airway and neck mobility. Respiratory Examination: clear to auscultation. CV Examination: normal. Prophylactic Antibiotics: The patient does not require prophylactic antibiotics. Prior Anticoagulants: The patient has taken no anticoagulant or antiplatelet agents except for NSAID medication. ASA Grade Assessment: II - A patient with mild systemic disease. After reviewing the risks and benefits, the patient was deemed in satisfactory condition to undergo the procedure. The anesthesia plan was to use monitored anesthesia care (MAC). Immediately prior to administration of medications, the patient was re-assessed for adequacy to receive sedatives. The heart rate, respiratory rate, oxygen saturations, blood pressure, adequacy of pulmonary ventilation, and response to care were monitored throughout the procedure. The physical status of the patient was re-assessed after the procedure. After obtaining informed consent, the endoscope was passed under direct vision. Throughout the procedure, the patient's blood pressure, pulse, and oxygen saturations were monitored continuously. The Colonoscope was introduced through the mouth, and advanced to the fourth part of the duodenum. Small bowel enteroscopy was deemed necessary. The upper GI endoscopy was accomplished without difficulty. The patient tolerated the procedure well. Scope In: 10:55:56 AM Scope Out: 11:00:03 AM Total Procedure Duration Time 0 hours 4 minutes 7 seconds Findings: The Z-line was irregular and was found 40 cm from the incisors. Biopsies were taken with a cold forceps for histology. Verification of patient identification for the specimen was done. Estimated blood loss was minimal. No gross lesions were noted in the entire examined stomach. The examined duodenum was normal. Impression: - Z-line irregular, 40 cm from the incisors. Biopsied. - No gross lesions in the entire stomach. - Normal examined duodenum. Recommendation: - Discharge patient to home. - Resume previous diet. - Continue present medications. Procedure Code(s): --- Professional --- 46616, Small intestinal endoscopy, enteroscopy beyond second portion of duodenum, not including ileum; with biopsy, single or multiple CPT copyright 2021 [employer]. All rights reserved. The codes documented in this report are preliminary and upon rn licensed practical review may be revised to meet current compliance requirements. Logan White DO 09/22/2024 11:11:19 AM This report has been signed electronically. Number of Addenda: 0 Note Initiated On: 09/22/2024 10:42 AM
--- NOTE | 2024-09-22 11:11 | OP.CCLET_ITS ---
09/22/2024 No Primary Care Physician Re : Upper GI endoscopy procedure for Chris Mills Dear Care Physician This procedure was performed on Sunday, September 22, 2024. My impressions and recommendations are as follows: Impressions : - Z-line irregular, 40 cm from the incisors. Biopsied. - No gross lesions in the entire stomach. - Normal examined duodenum. Recommendations : - Discharge patient to home. - Resume previous diet. - Continue present medications. My findings are described in the full procedure note, which is enclosed. If I can be of further assistance, please feel free to contact me at . Sincerely, Logan White, 09/22/2024 11:11:19 AM This report has been signed electronically.
--- NOTE | 2024-09-22 11:16 | OP.CCLET_ITS ---
09/22/2024 No Primary Care Physician Re : Colonoscopy procedure for Chris Mills Dear Care Physician This procedure was performed on Sunday, September 22, 2024. My impressions and recommendations are as follows: Impressions : - Preparation of the colon was poor. - Stool in the entire examined colon. - No specimens collected. Recommendations : - Discharge patient to home. - Resume previous diet. - Repeat colonoscopy because the bowel preparation was poor. - Continue present medications. My findings are described in the full procedure note, which is enclosed. If I can be of further assistance, please feel free to contact me at . Sincerely, Logan White, 09/22/2024 11:15:48 AM This report has been signed electronically.
--- NOTE | 2024-09-22 11:16 | OP.COLON_ITS ---
Patient Name: Chris Mills Procedure Date: 09/22/2024 11:00 AM Date of : 1975 Age: 49 Procedure: Colonoscopy Indications: Generalized abdominal pain, Abnormal CT of the GI tract Providers: Logan White DO Referring MD: No Primary Care Physician Medicines: Monitored Anesthesia Care Patient Profile: This is a 49 year old male. Refer to note in patient chart for documentation of history and physical. Patient has symptoms of chronic abdominal cramping, acute epigastric abdominal pain, chronic global abdominal pain, acute dyspepsia and acute nausea. His most recent EGD for ulcer treatment. Last Colonoscopy: within the past 3 years. Complications: No immediate complications. Procedure: Pre-Anesthesia Assessment: - Prior to the procedure, a History and Physical was performed, and patient medications and allergies were reviewed. The patient is competent. The risks and benefits of the procedure and the sedation options and risks were discussed with the patient. All questions were answered and informed consent was obtained. Patient identification and proposed procedure were verified by the physician in the pre-procedure area. Mental Status Examination: alert and oriented. Airway Examination: normal oropharyngeal airway and neck mobility. Respiratory Examination: clear to auscultation. CV Examination: normal. Prophylactic Antibiotics: The patient does not require prophylactic antibiotics. Prior Anticoagulants: The patient has taken no anticoagulant or antiplatelet agents except for NSAID medication. ASA Grade Assessment: II - A patient with mild systemic disease. After reviewing the risks and benefits, the patient was deemed in satisfactory condition to undergo the procedure. The anesthesia plan was to use monitored anesthesia care (MAC). Immediately prior to administration of medications, the patient was re-assessed for adequacy to receive sedatives. The heart rate, respiratory rate, oxygen saturations, blood pressure, adequacy of pulmonary ventilation, and response to care were monitored throughout the procedure. The physical status of the patient was re-assessed after the procedure. After I obtained informed consent, the scope was passed under direct vision. Throughout the procedure, the patient's blood pressure, pulse, and oxygen saturations were monitored continuously. The Colonoscope was introduced through the anus with the intention of advancing to the ileum. The scope was advanced to the splenic flexure before the procedure was aborted. Medications were given. The colonoscopy was performed without difficulty. The patient tolerated the procedure well. The quality of the bowel preparation was poor. Scope In: 11:02:24 AM Scope Out: 11:04:10 AM Total Procedure Duration Time 0 hours 1 minute 46 seconds Findings: The perianal and digital rectal examinations were normal. Extensive amounts of stool was found in the entire colon, precluding visualization. Impression: - Preparation of the colon was poor. - Stool in the entire examined colon. - No specimens collected. Recommendation: - Discharge patient to home. - Resume previous diet. - Repeat colonoscopy because the bowel preparation was poor. - Continue present medications. Procedure Code(s): --- Professional --- 93378, 53, Colonoscopy, flexible; diagnostic, including collection of specimen(s) by brushing or washing, when performed (separate procedure) CPT copyright 2021 [employer]. All rights reserved. The codes documented in this report are preliminary and upon gun stocker review may be revised to meet current compliance requirements. Logan White DO 09/22/2024 11:15:48 AM This report has been signed electronically. Number of Addenda: 0 Note Initiated On: 09/22/2024 11:00 AM
--- NOTE | 2024-09-22 11:17 | PCM.POST.ANE ---
Anesthesia: Postop Eval I Current Vital Signs Temperature: 98.2 F Pulse Rate: 72 Blood Pressure: 113/68 Respiratory Rate: 16 Pulse Ox: 93 Oxygen Delivery Method: Room Air Assessment Airway patent: Yes Spontaneous unlabored respirations: Yes Mental status: Awake and Calm nausea: No Vomiting: No Anesthesia Complication: No Fluid Hydration Crystalloid volume administer (ml): 400 Total IV fluid infused: 400 Progress Note Anesthesia document: Postop Eval 1 completed: Yes
--- NOTE | 2024-09-22 14:49 | PCM.POSTANE2 ---
Anesthesia Postop Eval I Sum Postop Eval Completion status Anesthesia document: Postop Eval 1 completed: Yes Anesthesia Postop Eval I Summary Anesthesia Postop Eval I Summary: Anesthesia Postop Eval I: Assessment Summary Airway patent Yes 09/22/24 11:18 [email or web address] Spontaneous unlabored Yes 09/22/24 11:18 [email or web address] respirations Mental status Awake,Calm 09/22/24 11:18 [email or web address] nausea No 09/22/24 11:18 [email or web address] Vomiting No 09/22/24 11:18 [email or web address] Anesthesia Postop Eval I: Fluid Summary Crystalloid volume administer 400 09/22/24 11:18 [email or web address] (ml) Colloids volume administered ( ml) Blood Product volume administered (ml) Total IV fluid infused 400 09/22/24 11:18 [email or web address] Anesthesia Postop Eval I: Summary Notes Anesthesia Complication No 09/22/24 11:18 [email or web address] Anesthesia Complication Comment: Post-operative progress note Anesthesia: Postop Eval II Evaluation Mental status: Awake Pain Level: 0 nausea: No Vomiting: No
== END 2024-09-22 12:02 | disposition home or self-care (01) ==
LOC: EN 08:35 → AC 08:40
PROVIDERS: Visit Provider Internal Medicine Gastroenterology
PROC: 0DJD8ZZ Inspection of Lower Intestinal Tract, Via Natural or Artificial Opening Endoscopic (ICD-10-PCS; CPT 45378; principal; 2024-09-22 10:10)
DX: K22.89 Other specified disease of esophagus (principal); M06.9 Rheumatoid arthritis, unspecified; E66.01 Morbid (severe) obesity due to excess calories; Z68.43 Body mass index [BMI] 50.0-59.9, adult; R10.84 Generalized abdominal pain; R19.5 Other fecal abnormalities; R11.2 Nausea with vomiting, unspecified; K59.00 Constipation, unspecified; K21.9 Gastro-esophageal reflux disease without esophagitis; Z87.11 Personal history of peptic ulcer disease; Z87.19 Personal history of other diseases of the digestive system; Z90.49 Acquired absence of other specified parts of digestive tract; Z79.899 Other long term (current) drug therapy
CPT/HCPCS: 44361; 45378; 88305; J2405

== ENCOUNTER 2024-09-28 22:37 | Emergency (ER) | payer MEDICARE, MEDICAID, SELFPAY ==
[2024-09-28 22:38] VITALS: BP 139/72; PULSE 98; RESP 16; TEMP 36.9; O2SAT 98
[2024-09-28 22:41] VITALS: BMI 52.4
--- NOTE | 2024-09-28 23:01 | EDS_ITS ---
HPI History of Present Illness Chief Complaint: Dizziness [facility] Medical History (Updated 09/28/24 @ 22:46 by Coleman Bowen) Hernia Non-smoker Diverticulitis Rheumatoid arthritis Morbid obesity with BMI of 50.0-59.9, adult GERD (gastroesophageal reflux disease) History of diverticulitis Periumbilical hernia History of stroke History of NC (myocardial infarction) Anxiety and depression Morbid obesity Hypertension Diverticulitis large intestine Home Medications ?Medication ?Instructions ?Recorded ?Last Taken ?Type metoclopramide HCl 5 mg tablet 5 mg PO Q8H PRN nausea and 08/27/24 Unknown Rx (Reglan) vomiting #20 tabs pantoprazole 40 mg tablet,delayed 40 mg PO DAILY #30 t abs 09/16/24 Unknown Rx release (Protonix) sucralfate 1 gram tablet (Carafate) 1 g PO TID #30 tab s 09/16/24 Unknown Rx dicyclomine 10 mg capsule 10 mg PO BID #30 caps Unknown Rx linaclotide 145 mcg capsule 145 mcg PO QAM #90 caps Unknown Rx (Linzess) Allergy/AdvReac Type Severity Reaction Status Date / Time morphine Allergy Mild Rash Verified 09/28/24 22:41 codeine Allergy Anaphylaxis Verified 09/28/24 22:41 hydrocodone bitartrate (From Allergy Rash Verified 09/28/24 22:41 Vicodin) latex Allergy Swelling Verified 09/28/24 22:41 naproxen Allergy Hives Verified 09/28/24 22:41 ondansetron (From Zofran (as AdvReac Nausea Verified 09/28/24 22:41 hydrochloride)) Family History Mother Cancer Father Brain aneurysm Surgical History History of bowel resection Hx of hand surgery Hx of foot surgery Hx of arthroscopy of right knee History of tonsillectomy and adenoidectomy Hx of cholecystectomy Hx of appendectomy Social History household members: spouse Smoking Status: Never smoker alcohol intake: never substance use type: does not use EXAM Physical Exam Const Vital Signs: 09/28/24 22:38 09/28/24 23:30 09/29/24 00:00 Temperature 98.5 F Temperature Source Oral Pulse Rate 98 89 85 Respiratory Rate 16 19 H 15 Blood Pressure 139/72 H 153/80 H Blood Pressure Mean 94 99 Pulse Ox 98 94 98 Oxygen Delivery Method Room Air 09/29/24 01:23 Temperature 98.5 F Temperature Source Pulse Rate 84 Respiratory Rate 16 Blood Pressure 156/92 H Blood Pressure Mean 113 Pulse Ox 96 Oxygen Delivery [place] [facility] [place] Medical decision making narrative: HISTORY OF PRESENT ILLNESS: Chief complaint: Lightheadedness 49-year-old male presents with his with concern for feeling dizzy in the shower. states patient is slurring his words. states only 1 side of his face is lifting. Last known well was yesterday (09/27/2024 at approximately 5 PM. Denies head trauma. Denies alcohol use. Denies bleeding diathesis. Denies chest pain. Denies abdominal pain. Denies recent vomiting. Per the patient's he has not been confused. REVIEW OF SYSTEMS: Pertinent positives: Dizziness, lightheadedness, speech difficulty Pertinent negatives: Chest pain, shortness of PHYSICAL EXAM: Nursing triage notes reviewed, Vital signs reviewed Constitutional: please see mdm HENT: MMM Eyes: Pupils equal round and reactive to light, Extraocular muscles intact Neck: No stridor, no JVD, full neck ROM Lungs: Clear to auscultation, No wheezing or rales. No increased work of breathing, no conversational dyspnea, no accessory muscle use, no nasal flaring. No respiratory distress noted Heart: Regular rate and rhythm, No murmurs, No rubs and No gallops, 2+ distal pulses (radial, femoral, posterior tibial) in all extremities Abdomen: Soft, there is no tenderness, rigidity, rebound or guarding, no obvious peritoneal signs, no palpable pulsatile abdominal masses, no auscultated abdominal bruit : No CVAT Extremities: No edema Neuro: [Alert and oriented x3, neuro exam at baseline, cranial nerves II through XII are intact. No pain with extraocular muscle movement. There is negative test of skew. 5 of 5 strength in upper and lower extremities in flexion extension. Intact sensation to light touch in upper and lower extremity dermatomes. No truncal or extremity ataxia. No dysdiadochokinesia. Normal gait. 2+ reflexes in upper and lower extremities. No meningeal signs. Negative Babinski. NIH of 0. Skin: No rash or lesions noted MEDICAL DECISION MAKING: Chief Complaint: please see HPI External records reviewed: Reviewed prior imaging studies. Recent advanced imaging of the brain Factors affecting care: Diverticulitis, GERD, Social determinants of health: none History obtained from others: Consults: none [facility] Narrative: The patient was initially hemodynamically stable, afebrile and nontoxic- appearing. Neurologic exam revealed no focal abnormalities. NIH of 0. Stroke team was not called as his last known well was prior to 24 hours. In addition to this he had NIH of 0 no obvious focal deficits on initial exam I considered the following differential diagnosis: ICH, mass, ACS, arrhythmia, anemia I obtained a broad lab and imaging to further determine if the patient was suffering from a life-threatening etiology. ALL IMAGES (IF OBTAINED) HAVE BEEN PERSONALLY REVIEWED AND INTERPRETED BY MYSELF. Noncon CT scan of the brain/CT of the head and neck with IV contrast revealed no acute abnormalities. No signs of large vessel occlusion or dissection CBC with no leukocytosis, no anemia or thrombocytopenia BMP without significant electrolyte abnormalities, there is a borderline metabolic acidosis with a bicarb of 20.9 (lab reference range 21-32), there is no sign of endorgan hypoperfusion, no sign of YULY EKG with normal sinus rhythm rate 88, normal axis, normal intervals, no STEMI High-sensitivity troponin is negative, no evidence of myocardial ischemia Given the patient's concern for speech issues that were not present he could be suffered from a TIA. As per standard of care I offered the patient admission for confirmatory MRI, risk factor modification, echocardiogram. The patient were alert and oriented x 3 and had capacity to make their own medical decisions and chose to forego admission at this time and lieu of close outpatient follow-up. Recommend starting a daily aspirin. Strict return precautions were discussed. The patient and/or family, caregivers express understanding. The patient and/or family, caregivers agrees with the plan. Shared decision making: I will have a discussion with the patient and or visitors regarding risk/benef its of further testing or admission. They will be made aware of of the risk/benefits inherent in this decision they will be given the opportunity to voice understanding. Total critical care time today provided was at least 0 minutes. This excludes separately billable procedures. Critical care time (if documented) is secondary to the patient having high probability of clinically significant/life threatening deterioration in the patient's condition which required my urgent intervention. Impression: 1. Lightheadedness 2. Speech difficulty 3. TIA Dispo: Discharge home This note was generated with [employer] dictation software. It may contain incorrect words, spelling, and punctuation that were not noted in review of the chart prior to signing. Lab Data Labs: Laboratory Results - last 24 hr 09/28/24 23:00 WBC 12.1 H RBC 4.99 Hgb 13.1 Hct 40.9 MCV 82.0 MCH 26.3 L MCHC 32.0 RDW Std Deviation 40.7 RDW Coeff of [place] 13.9 Plt Count 399 MPV 9.8 Immature Gran % (Auto) 0.300 Neut % (Auto) 60.4 Lymph % (Auto) 31.3 [place] % (Auto) 4.6 Eos % (Auto) 3.0 Baso % (Auto) 0.4 Absolute Neuts (auto) 7.3 Absolute Lymphs (auto) 3.78 Nucleated RBC % 0 Sodium 139 Potassium 3.8 Chloride 105 Carbon Dioxide 20.9 L Anion Gap 14 BUN 13 Creatinine 0.98 Estim Creat Clear Calc 128.16 Est GFR (MDRD) Non-Af 95 BUN/Creatinine Ratio 13.2 Glucose 100 H Calcium 9.0 Troponin T High Sens 7 Radiography Diagnostic Testing: Clinical Impression(s) from Imaging Studies Brain CT 09/28/24 23:29 IMPRESSION: 1. No acute intracranial abnormality. 2. Widely patent intracranial and cervical arterial vasculature. Reading Location: [facility] Head/Neck CTA 09/28/24 23:29 IMPRESSION: 1. No acute intracranial abnormality. 2. Widely patent intracranial and cervical arterial vasculature. Reading Location: [facility] Discharge Plan Triage Chief Complaint: Dizziness ED Provider: Aj Little Dx/Rx/DC Orders Instructions: TIA Dc, ED Dizziness, Uncertain Cause Prescriptions: No Action metoclopramide HCl [Reglan] 5 mg tablet 5 mg PO Q8H PRN (Reason: nausea and vomiting) Qty: 20 0RF pantoprazole [Protonix] 40 mg tablet,delayed release (DR/EC) 40 mg PO DAILY Qty: 30 0RF sucralfate [Carafate] 1 gram tablet 1 g PO TID Qty: 30 0RF Linzess 145 mcg capsule 145 mcg PO QAM Qty: 90 2RF dicyclomine 10 mg capsule 10 mg PO BID Qty: 30 0RF Primary Care Provider: Care Physician,No Primary Referrals: Sal Wu MD [Med Staff - Lead Inspector] - Activity Restrictions/Additional Instructions: Thank you for trusting us with your care today! Your labs and images are reassuring. No clear explanation of your symptoms today. Please begin taking a daily aspirin. Please return to the emergency department if your symptoms change or worsen. Please follow with your primary care physician for further outpatient evaluation and management. Print Language: Bulgarian Disposition Disposition: Home, Self Care
--- NOTE | 2024-09-28 23:29 | CT_ITS ---
PROCEDURE: BRAIN/HEAD WITHOUT CONTRAST; CTA HEAD AND NECK W/ CONTRAST 09/28/2024 REASON FOR EXAM: SLURRED SPEECH; SPEECH DIFFICULTY TECHNIQUE: BRAIN/HEAD WITHOUT CONTRAST; CTA HEAD AND NECK W/ CONTRAST Coronal and Sagittal reconstruction series were provided. 3D post-processing and MIP reconstructions were performed. One or more dose reduction techniques were used (e.g., Automated exposure control, adjustment of the mA and/or kV according to patient size, use of iterative reconstruction technique. RADIATION DOSE SUMMARY: DLP: 1712.84 mGycm COMPARISON: Brain MRI 08/25/2021. No other relevant prior exams. FINDINGS: CTA HEAD: Patent intracranial arterial vasculature. No large vessel occlusion, flow- limiting stenosis, saccular aneurysm, or vascular malformation identified. Major dural venous sinuses appear patent. CTA NECK: Conventional aortic arch branching. Bilateral cervical carotid and codominant vertebral arteries are patent without significant stenosis. No luminal irregularity to suggest aneurysm or dissection. NONCONTRAST CT HEAD: No acute intracranial hemorrhage, extra-axial collection, mass effect or evidence of acute infarct. Ventricles and subarachnoid spaces are normal in size. Orbital contents are unremarkable. Intact skull base and calvarium. No mastoid effusions. Small right maxillary sinus mucous retention cyst/polyp. CT/CTA Head AND Neck W/ Contrast IMPRESSION: 1. No acute intracranial abnormality. 2. Widely patent intracranial and cervical arterial vasculature. Reading Location: [id number]
--- NOTE | 2024-09-28 23:29 | CT_ITS ---
PROCEDURE: BRAIN/HEAD WITHOUT CONTRAST; CTA HEAD AND NECK W/ CONTRAST 09/28/2024 REASON FOR EXAM: SLURRED SPEECH; SPEECH DIFFICULTY TECHNIQUE: BRAIN/HEAD WITHOUT CONTRAST; CTA HEAD AND NECK W/ CONTRAST Coronal and Sagittal reconstruction series were provided. 3D post-processing and MIP reconstructions were performed. One or more dose reduction techniques were used (e.g., Automated exposure control, adjustment of the mA and/or kV according to patient size, use of iterative reconstruction technique. RADIATION DOSE SUMMARY: DLP: 1712.84 mGycm COMPARISON: Brain MRI 08/25/2021. No other relevant prior exams. FINDINGS: CTA HEAD: Patent intracranial arterial vasculature. No large vessel occlusion, flow- limiting stenosis, saccular aneurysm, or vascular malformation identified. Major dural venous sinuses appear patent. CTA NECK: Conventional aortic arch branching. Bilateral cervical carotid and codominant vertebral arteries are patent without significant stenosis. No luminal irregularity to suggest aneurysm or dissection. NONCONTRAST CT HEAD: No acute intracranial hemorrhage, extra-axial collection, mass effect or evidence of acute infarct. Ventricles and subarachnoid spaces are normal in size. Orbital contents are unremarkable. Intact skull base and calvarium. No mastoid effusions. Small right maxillary sinus mucous retention cyst/polyp. CT/Brain/Head without Contrast IMPRESSION: 1. No acute intracranial abnormality. 2. Widely patent intracranial and cervical arterial vasculature. Reading Location: [id number]
--- NOTE | 2024-09-28 23:29 | EKG12_ITS ---
Test Reason : DIZZY Blood Pressure : */* mmHG Vent. Rate : 88 BPM Atrial Rate : 88 BPM P-R Int : 182 ms QRS Dur : 74 ms QT Int : 362 ms P-R-T Axes : 36 11 40 degrees QTcB Int : 438 ms Normal sinus rhythm Low voltage QRS Borderline ECG Confirmed by ANDREW OSCAR MD ([id number]), publication editor NANI GEORGE ([id number]) on 09/30/2024 6:37:32 AM Referred By: Confirmed By: ANDREW OSCAR MD
[2024-09-28 23:30] VITALS: PULSE 89; RESP 19; O2SAT 94
[2024-09-29] VITALS: BP 153/80; PULSE 85; RESP 15; O2SAT 98
[2024-09-29 00:15] LABS: Hematocrit 40.9 % (40-54); Hemoglobin 13.1 g/dL (13.0-16.5); Immature Granulocytes Count 0.040 X10^3/uL (0.0-0.0); Mean Corp Hgb Conc 32.0 g/dL (32-36); Mean Corpuscular Volume 82.0 fL (80-94); Mean Platelet Vol. 9.8 fl (6.2-12.0); NRBC Flagged by Analyzer 0 % (0-5); Platelet Count 399 K/mm3 (150-450); RBC Distribution Width CV 13.9 % (11.6-14.6); RBC Distribution Width SD 40.7 fl (35.1-43.9); Red Blood Count 4.99 M/mm3 (4.6-6.2); White Blood Count 12.1 K/mm3 (4.4-11.0)
[2024-09-29 00:47] LABS: Anion Gap 14 (5-15); BUN 13 mg/dL (4-19); BUN/Creat Ratio 13.2 RATIO (10-20); Calcium,Total 9.0 mg/dL (7.6-11.0); Carbon Dioxide 20.9 mmol/L (21.0-32.0); Chloride 105 mmol/L (98-108); Estimated Creatinine Clearance 128.16 ml/min (50-250); Glucose 100 mg/dL (70-99); Potassium 3.8 mmol/L (3.3-5.1)
[2024-09-29 01:06] LABS: Troponin T High Sensitivity 7 ng/L (<=22)
[2024-09-29 01:23] VITALS: BP 156/92; PULSE 84; RESP 16; TEMP 36.9; O2SAT 96
== END 2024-09-29 01:27 | disposition home or self-care (01) ==
PROVIDERS: Emergency Provider Emergency Medicine; Visit Provider Emergency Medicine
DX: R42 Dizziness and giddiness (principal); G45.9 Transient cerebral ischemic attack, unspecified; R47.9 Unspecified speech disturbances; I10 Essential (primary) hypertension; K21.9 Gastro-esophageal reflux disease without esophagitis; Z90.49 Acquired absence of other specified parts of digestive tract; I25.2 Old myocardial infarction; Z87.19 Personal history of other diseases of the digestive system; Z86.73 Personal history of transient ischemic attack (TIA), and cerebral infarction without residual deficits
CPT/HCPCS: 70450; 70496; 70498; 80048; 84484; 85025; 93005; 99282; Q9967; A4216

== ENCOUNTER 2024-12-29 17:01 | Emergency (ER) | payer MEDICARE, MEDICAID, SELFPAY ==
[2024-12-29 17:02] VITALS: BP 124/90; PULSE 109; RESP 18; TEMP 36.9; O2SAT 98; BMI 48.9
--- NOTE | 2024-12-29 18:08 | RAD_ITS ---
PROCEDURE: CHEST PA AND LATERAL 12/29/2024 REASON FOR EXAM: COUGH, SHORTNESS OF BREATH TECHNIQUE: Procedure Code: RADCXR Modality: DX Procedure: CHEST PA AND LATERAL COMPARISON: 07/02/24 FINDINGS: No focal consolidation. Bibasilar subsegmental atelectasis. No pleural effusion or pneumothorax. Cardiac silhouette is within normal limits. No acute fractures. RAD/Chest PA and Lateral IMPRESSION: No focal consolidation. Bibasilar subsegmental atelectasis. Reading Location: [id number]
--- NOTE | 2024-12-29 18:08 | RAD_ITS ---
PROCEDURE: CHEST PA AND LATERAL 12/29/2024 REASON FOR EXAM: COUGH, SHORTNESS OF BREATH TECHNIQUE: Procedure Code: RADCXR Modality: DX Procedure: CHEST PA AND LATERAL COMPARISON: 07/02/24 FINDINGS: No focal consolidation. Bibasilar subsegmental atelectasis. No pleural effusion or pneumothorax. Cardiac silhouette is within normal limits. No acute fractures. RAD/Chest PA and Lateral IMPRESSION: No focal consolidation. Bibasilar subsegmental atelectasis. Reading Location: [id number]
--- NOTE | 2024-12-29 18:10 | EDS_ITS ---
HPI History of Present Illness Chief Complaint: Cold Sx Narrative Narrative: 49-year-old male who denies significant past medical history presents with his because of upper respiratory infection type symptoms that he has had for the last 3 days. Symptoms began Friday evening. He started with laryngitis which resolved. Since then, he has had fever, and increased difficulty breathing. He has cough which is sometimes productive of phlegm. Started having sneezing, runny nose and nasal congestion as well as body aches. He states he does not feel well. He denies nausea and vomiting, but states he was having a hard time breathing as well as sore throat. Non-smoker. 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 [facility] Medical History Hernia Non-smoker Diverticulitis Rheumatoid arthritis Morbid obesity with BMI of 50.0-59.9, adult GERD (gastroesophageal reflux disease) History of diverticulitis Periumbilical hernia History of stroke History of AK (myocardial infarction) Anxiety and depression Morbid obesity Hypertension Diverticulitis large intestine Home Medications ?Medication ?Instructions ?Recorded ?Last Taken ?Type metoclopramide HCl 5 mg tablet 5 mg PO Q8H PRN nausea and 08/27/24 Unknown Rx (Reglan) vomiting #20 tabs pantoprazole 40 mg tablet,delayed 40 mg PO DAILY #30 t abs 09/16/24 Unknown Rx release (Protonix) sucralfate 1 gram tablet (Carafate) 1 g PO TID #30 tab s 09/16/24 Unknown Rx dicyclomine 10 mg capsule 10 mg PO BID #30 caps Unknown Rx linaclotide 145 mcg capsule 145 mcg PO QAM #90 caps Unknown Rx (Linzess) albuterol sulfate 90 mcg/actuation 1 - 2 puff inhalati on Q4H PRN PRN 12/29/24 Unknown Rx aerosol inhaler (Ventolin HFA) Wheezing #1 ea prednisone 20 mg tablet 40 mg (2 x 20 mg) PO DAILY 5 days 12/29/24 Unknown Rx #10 tabs Allergy/AdvReac Type Severity Reaction Status Date / Time morphine Allergy Mild Rash Verified 12/29/24 17:02 codeine Allergy Anaphylaxis Verified 12/29/24 17:02 hydrocodone bitartrate (From Allergy Rash Verified 12/29/24 17:02 Vicodin) latex Allergy Swelling Verified 12/29/24 17:02 naproxen Allergy Hives Verified 12/29/24 17:02 ondansetron (From Zofran (as AdvReac Nausea Verified 12/29/24 17:02 hydrochloride)) Family History Mother Cancer Father Brain aneurysm Surgical History History of bowel resection Hx of hand surgery Hx of foot surgery Hx of arthroscopy of right knee History of tonsillectomy and adenoidectomy Hx of cholecystectomy Hx of appendectomy Social History household members: spouse Smoking Status: Never smoker alcohol intake: never substance use type: does not use ROS ROS ED ROS Narrative Review of systems positive for fever, subjective, cough, occasionally productive, shortness of breath/dyspnea as well as nasal congestion and rhinorrhea. Laryngitis-resolved. Sore throat. Positive body aches and myalgias. EXAM Physical Exam Narrative Exam Narrative: Afebrile. Vital signs noted. Nontoxic-appearing. He does have nasal congestion. Airway patent no drooling or trismus. Mild pharyngeal erythema. Cardiovascular examination reveals intermittent tachycardia. He has wheezing at the bilateral bases left greater than right, but is moving a good amount of air. Abdomen soft and nontender. Neurological examination nonfocal, nonlateralizing. Const Vital Signs: 12/29/24 17:02 12/29/24 17:32 12/29/24 18:37 Temperature 98.4 F Temperature Source Oral Pulse Rate 109 H 87 Respiratory Rate 18 20 H Respiratory Effort Normal Respiratory Pattern Tachypnea Normal Blood Pressure 124/90 H Blood Pressure Mean 101 Pulse Ox 98 Oxygen Delivery Method Room Air 12/29/24 19:51 Temperature 98.8 F Temperature Source Pulse Rate 67 Respiratory Rate 18 Respiratory Effort Respiratory Pattern Blood Pressure 120/67 Blood Pressure Mean 84 Pulse Ox 99 Oxygen Delivery Method MDM MDM MDM Narrative Medical decision making narrative: Differential diagnosis includes but not limited to viral syndrome including COVID versus influenza versus RSV. He may have pneumonia versus bronchitis. Pulse ox 98% on room air without evidence of hypoxia. Given his wheezing, he was given a DuoNeb aerosolized treatment. Chest x-ray and 2 views obtained and he was swabbed for COVID, influenza, and RSV. Chest x-ray obtained and interpreted by myself independently shows no evidence of pneumonia, no pneumothorax. There is no consolidation. I do not feel antibiotics are indicated. I reviewed the radiology report which confirms my independent interpretation. Upon repeat examination, patient has breathing that is improved. I feel he can be discharged safely home with follow-up. He was written prescriptions for a steroid burst as well as an albuterol inhaler to use 1 to 2 puffs inhaled every 4-6 hours as needed for wheezing. He was written a note to be off work for the next 2 days. Return instructions to the emergency department were reviewed. Follow-up with primary care. Disposition is discharged home in stable condition. History & Record Review Discussion w/independent historian: Patient and Family () Additional record(s) reviewed:: Prior ED visit Radiography Diagnostic Testing: Clinical Impression(s) from Imaging Studies Chest X-Ray 12/29/24 18:08 IMPRESSION: No focal consolidation. Bibasilar subsegmental atelectasis. Reading Location: [facility] Discharge Plan Triage Chief Complaint: Cold Sx ED Provider: Sidney Singh Dx/Rx/DC Orders Clinical Impression: Viral syndrome, Bronchitis Instructions: ED Bronchitis with Wheezing (Adult), ED Viral Syndrome (Adult) Prescriptions: New albuterol sulfate [Ventolin HFA] 90 mcg/actuation HFA aerosol inhaler 1 - 2 puff inhalation Q4H PRN PRN (Reason: Wheezing) Qty: 1 0RF prednisone 20 mg tablet 40 mg PO DAILY 5 Days Qty: 10 0RF No Action metoclopramide HCl [Reglan] 5 mg tablet 5 mg PO Q8H PRN (Reason: nausea and vomiting) Qty: 20 0RF pantoprazole [Protonix] 40 mg tablet,delayed release (DR/EC) 40 mg PO DAILY Qty: 30 0RF sucralfate [Carafate] 1 gram tablet 1 g PO TID Qty: 30 0RF Linzess 145 mcg capsule 145 mcg PO QAM Qty: 90 2RF dicyclomine 10 mg capsule 10 mg PO BID Qty: 30 0RF Stand Alone Forms: ED Work / School Excuse Primary Care Provider: Care Physician,No Primary Referrals: Care Physician,No Primary [Primary Care Provider, Medical] Activity Restrictions/Additional Instructions: Use the albuterol inhaler 1 to 2 puffs every 4-6 hours as needed for shortness of breath. Drink plenty of oral fluids. Tylenol and/or ibuprofen as needed for pain/fever. Follow-up with your primary care provider. Return with new or worsening symptoms. Print Language: [place] Leonean Disposition Disposition: Home, Self Care Discharge Date/Time: 12/29/24 19:52
[2024-12-29 18:37] VITALS: PULSE 87; RESP 20
[2024-12-29 19:51] VITALS: BP 120/67; PULSE 67; RESP 18; TEMP 37.1; O2SAT 99
== END 2024-12-29 19:52 | disposition home or self-care (01) ==
PROVIDERS: Emergency Provider Emergency Medicine; Visit Provider Emergency Medicine
DX: J40 Bronchitis, not specified as acute or chronic (principal); B34.9 Viral infection, unspecified; I10 Essential (primary) hypertension; Z90.49 Acquired absence of other specified parts of digestive tract; Z87.19 Personal history of other diseases of the digestive system; Z86.73 Personal history of transient ischemic attack (TIA), and cerebral infarction without residual deficits; I25.2 Old myocardial infarction; R06.2 Wheezing
CPT/HCPCS: 71046; 87631; 94640; 99282

== ENCOUNTER 2025-01-21 22:18 | Emergency (ER) | payer MEDICARE, SELFPAY ==
[2025-01-21 22:19] VITALS: BP 168/79; PULSE 100; RESP 18; TEMP 36.2; O2SAT 99; BMI 47.2
--- NOTE | 2025-01-21 22:43 | CT_ITS ---
PROCEDURE: CT/Abdomen/Pelvis W IV Cont ONLY
[2025-01-21] MEDS: 0.9% Normal Saline (1000mL) 1,000 ML 999 ML IV (22:54)
--- NOTE | 2025-01-21 22:55 | EX.ED.DYSGE1 ---
HPI History of Present Illness Chief Complaint: Complaint Informant: patient Narrative Narrative: Patient is a 49-year-old male with past medical history of hypertension and diverticulitis. He states he is following with general surgeon Dr. Cotton secondary to a right inguinal hernia. He states that around 7 PM this evening he developed pain in the right inguinal region. He states it came on without trauma or excessive activity. He denies any fevers or chills. He states that hurts constantly but it is worse with motion of his right leg or with palpation. Secondary to the worsening pain he presents for evaluation [facility] Medical History Hernia Non-smoker Diverticulitis Rheumatoid arthritis Morbid obesity with BMI of 50.0-59.9, adult GERD (gastroesophageal reflux disease) History of diverticulitis Periumbilical hernia History of stroke History of MS (myocardial infarction) Anxiety and depression Morbid obesity Hypertension Diverticulitis large intestine Home Medications ?Medication ?Instructions ?Recorded ?Last Taken ?Type metoclopramide HCl 5 mg tablet 5 mg PO Q8H PRN nausea and 08/27/24 Unknown Rx (Reglan) vomiting #20 tabs pantoprazole 40 mg tablet,delayed 40 mg PO DAILY #30 tabs 09/16/24 Unknown Rx release (Protonix) sucralfate 1 gram tablet (Carafate) 1 g PO TID #30 tabs 09/16/24 Unknown Rx dicyclomine 10 mg capsule 10 mg PO BID #30 caps 09/28/24 Unknown Rx linaclotide 145 mcg capsule 145 mcg PO QAM #90 caps 09/28/24 Unknown Rx (Linzess) albuterol sulfate 90 mcg/actuation 1 - 2 puff inhalation Q4H PRN PRN 12/29/24 Unknown Rx aerosol inhaler (Ventolin HFA) Wheezing #1 ea prednisone 20 mg tablet 40 mg (2 x 20 mg) PO DAILY 5 days 12/29/24 Unknown Rx #10 tabs oxycodone-acetaminophen 5 mg-325 1 tab PO Q6H PRN pain 3 days #12 01/22/25 Unknown Rx mg tablet (Percocet) tabs Allergy/AdvReac Type Severity Reaction Status Date / Time morphine Allergy Mild Rash Verified 01/21/25 22:21 codeine Allergy Anaphylaxis Verified 01/21/25 22:21 hydrocodone bitartrate (From Allergy Rash Verified 01/21/25 22:21 Vicodin) latex Allergy Swelling Verified 01/21/25 22:21 naproxen Allergy Hives Verified 01/21/25 22:21 ondansetron (From Zofran (as AdvReac Nausea Verified 01/21/25 22:21 hydrochloride)) Family History Mother Cancer Father Brain aneurysm Surgical History History of bowel resection Hx of hand surgery Hx of foot surgery Hx of arthroscopy of right knee History of tonsillectomy and adenoidectomy Hx of cholecystectomy Hx of appendectomy Social History household members: spouse Smoking Status: Never smoker alcohol intake: never substance use type: does not use ROS ROS ED Constitutional Constitutional ED: Denies chills or fever(s) ENT ENT ED: Denies sore throat Cardiovascular Cardiovascular: Denies chest pain Respiratory/Chest Respiratory/Chest: Denies cough or dyspnea Gastrointestinal Gastrointestinal: Reports abdominal pain; Denies diarrhea, nausea or vomiting Genitourinary Genitourinary ED: Reports other Details: Positive right groin pain/hernia ; Denies dysuria Musculoskeletal Musculoskeletal: Denies back pain Integumentary Denies rash Neurologic Neurologic: Denies headache(s) Hematologic/Lymphatic Hematologic/Lymphatic: Denies easy bleeding or easy bruising EXAM Physical Exam Const Vital Signs: 01/21/25 22:19 01/22/25 00:19 Temperature 97.2 F L Temperature Source Temporal Pulse Rate 100 81 Respiratory Rate 18 18 Blood Pressure 168/79 H Blood Pressure Mean 108 Pulse Ox 99 95 Oxygen Delivery Method Room Air Room Air Positive well nourished, well developed and obese General Appearance ED: well developed; Negative for pallor Nutritional Appearance: obese HEENT HEENT Narrative: Normocephalic atraumatic Eyes PERRL and EOMs intact bilaterally General Eye ED: Negative for scleral icterus Neck supple Resp normal respiratory effort and clear to auscultation bilaterally Cardio regular rate and regular rhythm GI normal to inspection, nondistended, normoactive bowel sounds, non-tender, non-distended and no masses Auscultation: normoactive bowel sounds Palpation: soft Narrative: Normal circumcised male without blood or discharge from urethral meatus No testicular swelling or masses noted There is a bulge in the right inguinal region consistent with inguinal hernia that feels reducible in nature No overlying soft tissue changes to suggest trauma or infection Back/Spine no CVA tenderness Extremity normal to inspection Neuro oriented x3, CN's II-XII intact bilaterally and no sensory deficits noted Sensorium / Orientation: alert Motor Exam: strength 5/5 throughout Psych Mood & Affect: anxious Skin no rashes or lesions noted General Skin Exam: Negative for jaundice or pallor MDM MDM MDM Narrative Medical decision making narrative: Patient arrived to ER hypertensive but has a past medical history of this. He reported a known hernia in the right lower quadrant and states he is following with a outside surgeon to discuss surgical fixation. With the patient having increased pain in that region there is concern for potential incarceration or intestinal perforation or obstruction. Patient could also have an atypical presentation for UTI or kidney stone. Secondary to his I did like to perform basic laboratory studies with urine sample and a CT scan with IV contrast. Labs reveal leukocytosis which is most likely stress response as chart review reveals he has been elevated at his previous visits but his lactic acid is normal when against infection or ischemia and his absolute neutrophil count is only elevated by 0.1. Urine sample shows no blood going against kidney stone or signs of infection. CT scan of the abdomen pelvis shows previous surgical changes to the abdomen with nonspecific fat stranding. The patient does not have pain in this region and therefore I do not feel this clinically correlates and I do not believe that this is developing infection so I do not feel the need for antibiotic. CT scan confirmed the right inguinal hernia but states it contains subcutaneous tissue and not intestine. Therefore at this time there is no small bowel obstruction no intestinal incarceration or strangulation or perforation no signs of secondary infection such as intestinal abscess. Therefore there is no need for emergent general surgery consultation or admission and patient can be given symptomatic care and discharged home History & Record Review Discussion w/independent historian: Patient and Friend Lab Data Attestation: I reviewed the patient's lab results. Labs: Laboratory Results - last 24 hr 01/21/25 01/21/25 22:54 23:25 WBC 12.8 H RBC 4.99 Hgb 13.0 Hct 39.9 L MCV 80.0 MCH 26.1 L MCHC 32.6 RDW Std Deviation 39.8 RDW Coeff of [place] 13.7 Plt Count 400 MPV 9.3 Immature Gran % (Auto) 0.400 Neut % (Auto) 60.8 Lymph % (Auto) 29.9 [place] % (Auto) 5.3 Eos % (Auto) 3.2 Baso % (Auto) 0.4 Absolute Neuts (auto) 7.8 H Absolute Lymphs (auto) 3.83 Nucleated RBC % 0 Sodium 139 Potassium 4.0 Chloride 104 Carbon Dioxide 22.6 Anion Gap 13 BUN 14 Creatinine 0.94 Estim Creat Clear Calc 129.79 Est GFR (MDRD) Non-Af 101 BUN/Creatinine Ratio 15.0 Glucose 108 H Lactic Acid 1.7 Calcium 8.9 Urine Color Yellow Urine Clarity Clear Urine pH 6.0 Ur Specific [place] 1.020 Urine Protein 30 H Urine Glucose (UA) Normal Urine Ketones Negative Urine Occult Blood 10 H Urine Nitrite Negative Urine Bilirubin Negative Urine Urobilinogen Normal Ur Leukocyte Esterase Negative Urine RBC 0 SEEN Urine WBC 0 SEEN Ur Squamous Epith Cells 0 SEEN Urine Bacteria RARE Urine Mucus 0 SEEN Radiography Diagnostic Testing: Clinical Impression(s) from Imaging Studies Abdomen/Pelvis CT 01/21/25 22:43 IMPRESSION: Interval anterior abdominal wall hernioplasty with operative bed soft tissue thickening and fat stranding. No obvious hernial sacs formation. Stable right inguinal hernia containing fat with no obvious related fluid densities or bowel herniation. Stable rest of the study. Reading Location: [place] [id number] Discharge Plan Triage Chief Complaint: Complaint ED Provider: Marv Pack Dx/Rx/DC Orders Clinical Impression: Inguinal hernia, right, Hypertension Instructions: How a Hernia Develops, Groin Hernia Lap Tx Prescriptions: New oxycodone-acetaminophen [Percocet] 5-325 mg tablet 1 tab PO Q6H PRN (Reason: pain) 3 Days Qty: 12 0RF No Action metoclopramide HCl [Reglan] 5 mg tablet 5 mg PO Q8H PRN (Reason: nausea and vomiting) Qty: 20 0RF pantoprazole [Protonix] 40 mg tablet,delayed release (DR/EC) 40 mg PO DAILY Qty: 30 0RF sucralfate [Carafate] 1 gram tablet 1 g PO TID Qty: 30 0RF albuterol sulfate [Ventolin HFA] 90 mcg/actuation HFA aerosol inhaler 1 - 2 puff inhalation Q4H PRN PRN (Reason: Wheezing) Qty: 1 0RF prednisone 20 mg tablet 40 mg PO DAILY 5 Days Qty: 10 0RF Linzess 145 mcg capsule 145 mcg PO QAM Qty: 90 2RF dicyclomine 10 mg capsule 10 mg PO BID Qty: 30 0RF Primary Care Provider: Care Physician,No Primary Referrals: Care Physician,No Primary [Primary Care Provider, Medical] Activity Restrictions/Additional Instructions: Your CT scan today showed the right inguinal hernia but this contains fatty tissue and not intestine. This can cause a great deal of pain but it is not at risk for incarceration or rupture. Please follow-up with your general surgeon Dr. Cotton to discuss potential surgical fixation for your hernia. Return to the ER should you have any further concern Print Language: Ukrainian Disposition Disposition: Home, Self Care
[2025-01-21 23:10] LABS: Hematocrit 39.9 % (40-54); Hemoglobin 13.0 g/dL (13.0-16.5); Immature Granulocytes Count 0.050 X10^3/uL (0.0-0.0); Mean Corp Hgb Conc 32.6 g/dL (32-36); Mean Corpuscular Volume 80.0 fL (80-94); Mean Platelet Vol. 9.3 fl (6.2-12.0); NRBC Flagged by Analyzer 0 % (0-5); Platelet Count 400 K/mm3 (150-450); RBC Distribution Width CV 13.7 % (11.6-14.6); RBC Distribution Width SD 39.8 fl (35.1-43.9); Red Blood Count 4.99 M/mm3 (4.6-6.2); White Blood Count 12.8 K/mm3 (4.4-11.0)
[2025-01-21 23:35] LABS: Mucous, Urine 0 SEEN /hpf (<or=2+); Red Blood Cells-Urine 0 SEEN /hpf (0-5); Squamous Epithelial Cells - UA 0 SEEN /hpf (0-5)
[2025-01-21 23:39] LABS: Anion Gap 13 (5-15); BUN 14 mg/dL (4-19); BUN/Creat Ratio 15.0 RATIO (10-20); Calcium,Total 8.9 mg/dL (7.6-11.0); Carbon Dioxide 22.6 mmol/L (21.0-32.0); Chloride 104 mmol/L (98-108); Estimated Creatinine Clearance 129.79 ml/min (50-250); Glucose 108 mg/dL (70-99); Potassium 4.0 mmol/L (3.3-5.1)
[2025-01-21 23:46] LABS: Color, Urine Yellow (Yellow); Glucose, Dipstick Normal (Normal); Ketone-Dipstick Negative (Negative); Leukocyte Esterase-Dipstick Negative /ul (Negative); Nitrite-Dipstick Negative (Negative); Occult Blood-Urine 10 /ul (Negative); Protein-Dipstick 30 mg/dl (Negative); Specific Gravity, Urine 1.020 (1.002-1.030); Urine Bilirubin Dipstick Negative (Negative)
[2025-01-22 00:19] VITALS: PULSE 81; RESP 18; O2SAT 95
[2025-01-22 01:02] VITALS: BP 144/84; PULSE 71; RESP 18; TEMP 36.7; O2SAT 97
== END 2025-01-22 01:03 | disposition home or self-care (01) ==
PROVIDERS: Emergency Provider Emergency Medicine; Visit Provider Emergency Medicine
DX: K40.90 Unilateral inguinal hernia, without obstruction or gangrene, not specified as recurrent (principal); I10 Essential (primary) hypertension; N50.9 Disorder of male genital organs, unspecified; K21.9 Gastro-esophageal reflux disease without esophagitis; E66.9 Obesity, unspecified; D72.829 Elevated white blood cell count, unspecified
CPT/HCPCS: 74177; 80048; 81001; 83605; 85025; 96361; 96374; 96376; 99282; Q9967